=== PATIENT | female | born 1960 | race Caucasian/White ===

== ENCOUNTER 2023-01-02 14:49 | Emergency (ER) | payer OTHER, SELFPAY ==
[2023-01-02 14:53] VITALS: BP 170/64; PULSE 68; RESP 18; TEMP 36.7; O2SAT 98; BMI 29.5
--- NOTE | 2023-01-02 15:06 | XR_ITS ---
The [address] [address] Patient Name: VENANCIO BERNAL MRN: [id number] date: 1960 Sex: F Assigned Patient Location: ER Current Patient Location: ER Accession/Order Number: [id number] Exam Date: 01/02/2023 15:57 Report Date: 01/02/2023 16:18 At the request of: PAVEL ANDRADE Procedure: XR toe LT min 2V EXAM: XR toe LT min 2V HISTORY: First digit pain COMPARISON: None. TECHNIQUE: 3 views FINDINGS: IMPRESSION: Soft tissue irregularity of the dorsal aspect of the first digit. First and second digit soft tissue edema. No visualized fracture, dislocation, subluxation, osseous lesion or discrete periosteal reaction on this study. Atherosclerosis of the vascular structures. Electronically authenticated by: ARTURO TREJO Date: 01/02/2023 16:18
--- NOTE | 2023-01-02 15:12 | ED_ITS ---
Documented by User: VERÓNICA Lara 01/02/23 17:30 HPI - General Adult General Chief complaint: Extremity Problem, Nontraumatic Stated complaint: LOWER EXTREMITY PAIN LEFT FOOT Time Seen by Provider: 01/02/23 15:01 Source: patient Mode of arrival: walk-in History of Present Illness HPI narrative: patient is a 62-year-old female who presents to the emergency department at the recommendation of her PCP for redness and swelling to the left great toe. Patient states she had a toenail debridement done with local podiatry one week ago, she was placed on Keflex 500 mg twice a day for one week and has now fi nished this antibiotic. She continues to have redness and swelling to the area although she states when she had her procedure done, the toe was much more swollen and red. She has had minimal purulent drainage from the area of the toenail. No fevers or vomiting. Related Data Home Medications Medication Instructions Recorded Confirmed atorvastatin 20 mg tablet 20 mg PO .qhs 01/02/23 01/02/23 clopidogrel 75 mg tablet 75 mg PO QDAY 01/02/23 01/02/23 dulaglutide 0.75 mg/0.5 mL 0.75 mg subcut QWEEK 01/02/23 01/02/23 subcutaneous pen injector (Trulicity) furosemide 40 mg tablet 40 mg PO Q12H 01/02/23 01/02/23 glipizide 10 mg tablet 10 mg PO BID 01/02/23 01/02/23 lisinopril 30 mg tablet 30 mg PO DAILY 01/02/23 01/02/23 metformin 500 mg tablet,extended 1,000 mg PO BID 01/02/23 01/02/23 release 24 hr metoprolol tartrate 100 mg tablet 100 mg PO Q12H 01/02/23 01/02/23 Previous Rx's Medication Instructions Recorded amoxicillin 875 mg-potassium 1 tab PO Q12H #20 tabs 01/02/23 clavulanate 125 mg tablet mupirocin 2 % topical ointment 1 applic topical BID #15 grams 01/02/23 ondansetron 4 mg disintegrating 4 mg PO Q6H PRN nausea and 01/02/23 tablet vomiting #12 tabs sulfamethoxazole 800 1 tab PO BID 10 days #20 tabs 01/02/23 mg-trimethoprim 160 mg tablet (Bactrim DS) Allergies Allergy/AdvReac Type Severity Reaction Status Date / Time No Known Drug Allergies Allergy Verified 01/02/23 14:53 Review of Systems ROS Constitutional Denies: fever or chills Cardiovascular Denies: chest pain Respiratory Denies: shortness of breath Gastrointestinal Denies: nausea or vomiting Musculoskeletal Denies: back pain Integumentary/Breast Reports: redness, skin pain, skin tenderness and skin swelling; Denies: rash Neurological Denies: headache Hematologic/Lymphatic Reports: easy bruising and easy bleeding PFSH PFSH Social History Smoking status: Current every day smoker Exam Narrative Exam Narrative: Gen.: Awake, alert, in no distress Head: Normocephalic, atraumatic ENT: Moist mucous membranes Respiratory: No respiratory distress Extremities: left great toe with circumferential erythema and mild edema compared to the right side. Great toenail is partially debrided with purulence noted at the nailbed. No active drainage, no evidence of necrosis. No red streaking to the proximal foot or ankle. Psych: Normal mood and affect Neuro: No focal neuro deficit Skin: Warm, dry Constitutional Vital Signs, click to edit/add: Last Vital Signs Temp 98.0 F 01/02/23 14:53 Pulse 68 01/02/23 14:53 Resp 18 01/02/23 14:53 BP 170/64 H 01/02/23 14:53 Pulse Ox 98 01/02/23 14:53 O2 Del Method Room Air 01/02/23 14:53 Course Vital Signs Vital signs: Vital Signs Temperature 98.0 F 01/02/23 14:53 Pulse Rate 68 01/02/23 14:53 Respiratory Rate 18 01/02/23 14:53 Blood Pressure 170/64 H 01/02/23 14:53 Pulse Oximetry 98 01/02/23 14:53 Oxygen Delivery Method Room Air 01/02/23 14:53 Temperature 98.0 F 01/02/23 14:53 Pulse Rate 68 01/02/23 14:53 Respiratory Rate 18 01/02/23 14:53 Blood Pressure 170/64 H 01/02/23 14:53 Pulse Oximetry 98 01/02/23 14:53 Oxygen Delivery Method Room Air 01/02/23 14:53 Medical Decision Making MDM Narrative Medical decision making narrative: x-rays of the toe with soft tissue deformity but no evidence of osteomyelitis on x-rays. Lab studies with normal white blood cell count and lactic acid, elevated CRP and sedimentation rate. Patient was treated with IV Zosyn and vancomycin. Discussed admission with the patient, she prefers outpatient management and based on her labs and workup, this is appropriate. She'll be started on Augmentin, Bactrim and Bactroban ointment. Follow-up with PCP and podiatry. Return to the Emergency Room if symptoms change or worsen. Medical Records Medical records reviewed: Yes I reviewed the patient's medical records Lab Data Lab results reviewed: Yes I reviewed the patient's lab results Labs: Lab Results 01/02/23 01/02/23 Range/Units 15:20 15:45 WBC 11.0 (4.0-11.0) 10^3/uL RBC 4.88 (4.20-5.40) 10^6/uL Hgb 12.5 (12.0-16.0) g/dL Hct 39.3 (36.0-48.0) % MCV 80.5 L (81.0-99.0) fL MCH 25.6 L (26.7-34.0) pg MCHC 31.8 (29.9-35.2) g/dL RDW 18.9 H (11.0-15.0) % Plt Count 345 (150-450) 10^3/uL MPV 10.0 (9.5-13.5) fL Neut % (Auto) 69.8 (43.0-75.0) % Lymph % (Auto) 20.9 (20.5-60.0) % [place] % (Auto) 6.3 (1.7-12.0) % Eos % (Auto) 1.7 (0.9-7.0) % Baso % (Auto) 0.8 (0.2-2.0) % Neut # (Auto) 7.6 H (1.4-6.5) 10^3/uL Lymph # (Auto) 2.3 (1.2-3.8) 10^3/uL [place] # (Auto) 0.7 (0.3-0.8) 10^3/uL Eos # (Auto) 0.2 (0.0-0.7) 10^3/uL Baso # (Auto) 0.1 (0.0-0.1) 10^3/uL Abs Immat Gran (auto) 0.06 H (0.00-0.03) 10^3/uL Imm/Tot Granulo (auto) 0.5 (0.0-0.5) % ESR 122 H (<=30) mm/hr VBG pH 7.375 (7.330-7.430) VBG pCO2 38.7 L (40.0-52.0) mmHg Sodium 136 (136-145) mmol/L Potassium 4.6 (3.5-5.1) mmol/L Chloride 103 (98-107) mmol/L Carbon Dioxide 22.4 (21.0-32.0) mmol/L Anion Gap 15.2 BUN 31.0 H (7.0-18.0) mg/dL Creatinine 1.11 H (0.55-1.02) mg/dL Est GFR ( Amer) 60 (>=60) Est GFR (Non-Af Amer) 49 L (>=60) BUN/Creatinine Ratio 27.9 Glucose 140 H (74-106) mg/dL Lactate 1.2 (0.4-2.0) mmol/L Calcium 9.0 (8.5-10.1) mg/dL Total Bilirubin 0.2 (0.2-1.0) mg/dL AST 12 L (15-37) U/L ALT 14 (14-59) U/L Alkaline Phosphatase 86 (46-116) U/L C-Reactive Protein 2.2 H (<=1.0) mg/dL Total Protein 8.0 (6.4-8.2) g/dL Albumin 3.1 L (3.4-5.0) g/dL Globulin 4.9 g/dL Albumin/Globulin Ratio 0.6 Imaging Data XR toe: Attestation: I have reviewed the pertinent imaging results. Radiologist's impression: Procedure: XR toe LT min 2V EXAM: XR toe LT min 2V HISTORY: First digit pain COMPARISON: None. TECHNIQUE: 3 views FINDINGS: IMPRESSION: Soft tissue irregularity of the dorsal aspect of the first digit. First and second digit soft tissue edema. No visualized fracture, dislocation, subluxation, osseous lesion or discrete periosteal reaction on this study. Atherosclerosis of the vascular structures. Electronically authenticated by: ARTURO TREJO Date: 01/02/2023 16:18 Discharge Plan Discharge Chief Complaint: Extremity Problem, Nontraumatic Clinical Impression: Cellulitis of great toe Patient Disposition: Home, Self-Care Time of Disposition Decision: 17:29 Condition: Good Prescriptions / Home Meds: New sulfamethoxazole-trimethoprim [Bactrim DS] 800-160 mg tablet 1 tab PO BID 10 Days Qty: 20 0RF mupirocin 2 % ointment 1 applic topical BID Qty: 15 0RF ondansetron 4 mg tablet,disintegrating 4 mg PO Q6H PRN (Reason: nausea and vomiting) Qty: 12 0RF amoxicillin-pot clavulanate 875-125 mg tablet 1 tab PO Q12H Qty: 20 0RF No Action atorvastatin 20 mg tablet 20 mg PO .qhs clopidogrel 75 mg tablet 75 mg PO QDAY Trulicity 0.75 mg/0.5 mL pen injector 0.75 mg SUBCUT QWEEK furosemide 40 mg tablet 40 mg PO Q12H glipizide 10 mg tablet 10 mg PO BID lisinopril 30 mg tablet 30 mg PO DAILY metformin 500 mg tablet extended release 24 hr 1,000 mg PO BID metoprolol tartrate 100 mg tablet 100 mg PO Q12H Instructions: Cellulitis (ED) Stand Alone Forms: Portal Instructions Referrals: Physician,Non-Staff, [Primary Care Provider] - 1 week Discharge Date/Time: 01/02/23 18:18 Documented by User: Luc Ramirez MD 01/02/23 20:28 HPI - General Adult General Chief complaint: Extremity Problem, Nontraumatic Stated complaint: LOWER EXTREMITY PAIN LEFT FOOT Time Seen by Provider: 01/02/23 15:01 Related Data Home Medications Medication Instructions Recorded Confirmed atorvastatin 20 mg tablet 20 mg PO .qhs 01/02/23 01/02/23 clopidogrel 75 mg tablet 75 mg PO QDAY 01/02/23 01/02/23 dulaglutide 0.75 mg/0.5 mL 0.75 mg subcut QWEEK 01/02/23 01/02/23 subcutaneous pen injector (Trulicity) furosemide 40 mg tablet 40 mg PO Q12H 01/02/23 01/02/23 glipizide 10 mg tablet 10 mg PO BID 01/02/23 01/02/23 lisinopril 30 mg tablet 30 mg PO DAILY 01/02/23 01/02/23 metformin 500 mg tablet,extended 1,000 mg PO BID 01/02/23 01/02/23 release 24 hr metoprolol tartrate 100 mg tablet 100 mg PO Q12H 01/02/23 01/02/23 Previous Rx's Medication Instructions Recorded amoxicillin 875 mg-potassium 1 tab PO Q12H #20 tabs 01/02/23 clavulanate 125 mg tablet mupirocin 2 % topical ointment 1 applic topical BID #15 grams 01/02/23 ondansetron 4 mg disintegrating 4 mg PO Q6H PRN nausea and 01/02/23 tablet vomiting #12 tabs sulfamethoxazole 800 1 tab PO BID 10 days #20 tabs 01/02/23 mg-trimethoprim 160 mg tablet (Bactrim DS) Allergies Allergy/AdvReac Type Severity Reaction Status Date / Time No Known Drug Allergies Allergy Verified 01/02/23 14:53 PFSH PFSH Social History Smoking status: Current every day smoker Exam Constitutional Vital Signs, click to edit/add: Last Vital Signs Temp 98.0 F 01/02/23 14:53 Pulse 68 01/02/23 14:53 Resp 18 01/02/23 14:53 BP 170/64 H 01/02/23 14:53 Pulse Ox 98 01/02/23 14:53 O2 Del Method Room Air 01/02/23 14:53 Course Vital Signs Vital signs: Vital Signs Temperature 98.0 F 01/02/23 14:53 Pulse Rate 68 01/02/23 14:53 Respiratory Rate 18 01/02/23 14:53 Blood Pressure 170/64 H 01/02/23 14:53 Pulse Oximetry 98 01/02/23 14:53 Oxygen Delivery Method Room Air 01/02/23 14:53 Temperature 98.0 F 01/02/23 14:53 Pulse Rate 68 01/02/23 14:53 Respiratory Rate 18 01/02/23 14:53 Blood Pressure 170/64 H 01/02/23 14:53 Pulse Oximetry 98 01/02/23 14:53 Oxygen Delivery Method Room Air 01/02/23 14:53 Medical Decision Making MDM Narrative Medical decision making narrative: x-rays of the toe with soft tissue deformity but no evidence of osteomyelitis on x-rays. Lab studies with normal white blood cell count and lactic acid, elevated CRP and sedimentation rate. Patient was treated with IV Zosyn and vancomycin. Discussed admission with the patient, she prefers outpatient management and based on her labs and workup, this is appropriate. She'll be started on Augmentin, Bactrim and Bactroban ointment. Follow-up with PCP and podiatry. Return to the Emergency Room if symptoms change or worsen. I, Dr Ramirez, have reviewed the above progress note and course of action in the ER; agree with the above. I have personally seen and evaluated this patient, gone over history and physical, and discussed disposition and treatment plan with the patient. Patient did not want to be admitted to the hospital, patient states that her toe and toenail with better than it has previously. 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 Patient is diabetic. Patient will be placed on to oral antibiotics and a topical Bactroban to help continue to treat and help prevent infection.. Signs of osteomyelitis. Patient has only been on Keflex twice a day, questionable whether patient has had adequate outpatient treatment for cellulitis, paronychia, or infected toe initially. Patient agrees with outpatient treatment and will see her Lactation Coordinator on Monday and will follow-up with PCP as needed. Lab Data Labs: Lab Results 01/02/23 01/02/23 Range/Units 15:20 15:45 WBC 11.0 (4.0-11.0) 10^3/uL RBC 4.88 (4.20-5.40) 10^6/uL Hgb 12.5 (12.0-16.0) g/dL Hct 39.3 (36.0-48.0) % MCV 80.5 L (81.0-99.0) fL MCH 25.6 L (26.7-34.0) pg MCHC 31.8 (29.9-35.2) g/dL RDW 18.9 H (11.0-15.0) % Plt Count 345 (150-450) 10^3/uL MPV 10.0 (9.5-13.5) fL Neut % (Auto) 69.8 (43.0-75.0) % Lymph % (Auto) 20.9 (20.5-60.0) % [place] % (Auto) 6.3 (1.7-12.0) % Eos % (Auto) 1.7 (0.9-7.0) % Baso % (Auto) 0.8 (0.2-2.0) % Neut # (Auto) 7.6 H (1.4-6.5) 10^3/uL Lymph # (Auto) 2.3 (1.2-3.8) 10^3/uL [place] # (Auto) 0.7 (0.3-0.8) 10^3/uL Eos # (Auto) 0.2 (0.0-0.7) 10^3/uL Baso # (Auto) 0.1 (0.0-0.1) 10^3/uL Abs Immat Gran (auto) 0.06 H (0.00-0.03) 10^3/uL Imm/Tot Granulo (auto) 0.5 (0.0-0.5) % ESR 122 H (<=30) mm/hr VBG pH 7.375 (7.330-7.430) VBG pCO2 38.7 L (40.0-52.0) mmHg Sodium 136 (136-145) mmol/L Potassium 4.6 (3.5-5.1) mmol/L Chloride 103 (98-107) mmol/L Carbon Dioxide 22.4 (21.0-32.0) mmol/L Anion Gap 15.2 BUN 31.0 H (7.0-18.0) mg/dL Creatinine 1.11 H (0.55-1.02) mg/dL Est GFR ( Amer) 60 (>=60) Est GFR (Non-Af Amer) 49 L (>=60) BUN/Creatinine Ratio 27.9 Glucose 140 H (74-106) mg/dL Lactate 1.2 (0.4-2.0) mmol/L Calcium 9.0 (8.5-10.1) mg/dL Total Bilirubin 0.2 (0.2-1.0) mg/dL AST 12 L (15-37) U/L ALT 14 (14-59) U/L Alkaline Phosphatase 86 (46-116) U/L C-Reactive Protein 2.2 H (<=1.0) mg/dL Total Protein 8.0 (6.4-8.2) g/dL Albumin 3.1 L (3.4-5.0) g/dL Globulin 4.9 g/dL Albumin/Globulin Ratio 0.6 Discharge Plan Discharge Chief Complaint: Extremity Problem, Nontraumatic Clinical Impression: Cellulitis of great toe Patient Disposition: Home, Self-Care Time of Disposition Decision: 17:29 Condition: Good Prescriptions / Home Meds: New sulfamethoxazole-trimethoprim [Bactrim DS] 800-160 mg tablet 1 tab PO BID 10 Days Qty: 20 0RF mupirocin 2 % ointment 1 applic topical BID Qty: 15 0RF ondansetron 4 mg tablet,disintegrating 4 mg PO Q6H PRN (Reason: nausea and vomiting) Qty: 12 0RF amoxicillin-pot clavulanate 875-125 mg tablet 1 tab PO Q12H Qty: 20 0RF No Action atorvastatin 20 mg tablet 20 mg PO .qhs clopidogrel 75 mg tablet 75 mg PO QDAY Trulicity 0.75 mg/0.5 mL pen injector 0.75 mg SUBCUT QWEEK furosemide 40 mg tablet 40 mg PO Q12H glipizide 10 mg tablet 10 mg PO BID lisinopril 30 mg tablet 30 mg PO DAILY metformin 500 mg tablet extended release 24 hr 1,000 mg PO BID metoprolol tartrate 100 mg tablet 100 mg PO Q12H Instructions: Cellulitis (ED) Stand Alone Forms: Portal Instructions Referrals: Physician,Non-Staff, MD [Primary Care Provider] - 1 week Discharge Date/Time: 01/02/23 18:18
[2023-01-02] MEDS: PIPERACILLIN SODIUM/TAZOBACTAM 4.5 GM in 0.9 % SODIUM CHLORIDE 50 ML IV (15:41)
[2023-01-02 15:49] LABS: Basophils Absolute Auto 0.1 10^3/uL (0.0-0.1); Basophils Percent Auto 0.8 % (0.2-2.0); Eosinophils Absolute Auto 0.2 10^3/uL (0.0-0.7); Eosinophils Percent Auto 1.7 % (0.9-7.0); Hematocrit 39.3 % (36.0-48.0); Hemoglobin 12.5 g/dL (12.0-16.0); Immature Granulocytes Abs Auto 0.06 10^3/uL (0.00-0.03); Immature Granulocytes Pct Auto 0.5 % (0.0-0.5); Lymphocytes Absolute Auto 2.3 10^3/uL (1.2-3.8); Lymphocytes Percent Auto 20.9 % (20.5-60.0); Mean Corpuscular HGB Conc 31.8 g/dL (29.9-35.2); Mean Corpuscular Hemoglobin 25.6 pg (26.7-34.0); Mean Corpuscular Volume 80.5 fL (81.0-99.0); Monocytes Absolute Auto 0.7 10^3/uL (0.3-0.8); Monocytes Percent Auto 6.3 % (1.7-12.0); Neutrophils Absolute Auto 7.6 10^3/uL (1.4-6.5); Neutrophils Percent Auto 69.8 % (43.0-75.0); Platelet Count 345 10^3/uL (150-450); Red Blood Count 4.88 10^6/uL (4.20-5.40); Red Cell Distribution Width 18.9 % (11.0-15.0)
[2023-01-02 15:55] LABS: C Reactive Protein 2.2 mg/dL (<=1.0)
[2023-01-02 16:01] LABS: Erythrocyte Sedimentation Rate 122 mm/hr (<=30)
[2023-01-02 16:03] LABS: Alanine Aminotransferase 14 U/L (14-59); Albumin Globulin Ratio 0.6; Albumin Level 3.1 g/dL (3.4-5.0); Alkaline Phosphatase 86 U/L (46-116); Anion Gap 15.2; Aspartate Amino Transferase 12 U/L (15-37); BUN Creatinine Ratio 27.9; Bilirubin Total 0.2 mg/dL (0.2-1.0); Carbon Dioxide 22.4 mmol/L (21.0-32.0); Chloride 103 mmol/L (98-107); Estimated GFR (African America 60 (>=60); Estimated GFR (Non-African Ame 49 (>=60); Globulin 4.9 g/dL; Glucose 140 mg/dL (74-106); Potassium 4.6 mmol/L (3.5-5.1); Sodium 136 mmol/L (136-145)
[2023-01-02 16:04] LABS: PCO2 VBG 38.7 mmHg (40.0-52.0); pH VBG 7.375 (7.330-7.430)
[2023-01-02 16:09] LABS: Lactate/Lactic Acid 1.2 mmol/L (0.4-2.0)
[2023-01-02] MEDS: VANCOMYCIN HCL 1,000 MG in 0.9 % SODIUM CHLORIDE 500 ML 250 MG IV (16:41)
== END 2023-01-02 18:18 | disposition home or self-care (01) ==
PROVIDERS: Physician Assistant; Emergency Provider Emergency Medicine
DX: L03.032 Cellulitis of left toe (principal); Z79.899 Other long term (current) drug therapy; Z79.84 Long term (current) use of oral hypoglycemic drugs; F17.210 Nicotine dependence, cigarettes, uncomplicated
CPT/HCPCS: 36415; 73660; 80053; 82800; 83605; 85025; 85652; 86140; 87040; 96365; 96375; 99285; J3370

== ENCOUNTER 2023-01-10 07:10 | Emergency (ER) | payer OTHER, SELFPAY ==
[2023-01-10 07:14] VITALS: BP 157/37; PULSE 65; RESP 20; TEMP 36.6; O2SAT 98; BMI 38.8
--- NOTE | 2023-01-10 07:39 | ED_ITS ---
HPI - Allergic Reaction General Chief complaint: Allergic Reaction Stated complaint: allergic reaction Time Seen by Provider: 01/10/23 07:26 Source: patient Mode of arrival: walk-in History of Present Illness HPI narrative: this patient's here complaining of a pruritic generalized rash throughout her trunk torso or extremities. It also involves her mouth lips and tongue. It started several days ago. She believes it may be related to using a new soap detergent on her clothing. Call upon further review she was seen here recently and started on two antibiotics for a cellulitis of her left great toe. She didn't fact follow-up with the hydrogen plant operations manager yesterday and they were satisfied with the progress of her infection and she scheduled to have surgery in the near future. Sure antibiotics included Augmentin and passes trace and and Bactrim. She is not having any change in her voice. She does not have nausea or vomiting. No wheezing or shortness of breath. Just has generalized itching and a pruritic rash throughout her extremities. Related Data Home Medications Medication Instructions Recorded Confirmed atorvastatin 20 mg tablet 20 mg PO .qhs 01/02/23 01/02/23 clopidogrel 75 mg tablet 75 mg PO QDAY 01/02/23 01/02/23 dulaglutide 0.75 mg/0.5 mL 0.75 mg subcut QWEEK 01/02/23 01/02/23 subcutaneous pen injector (Trulicity) furosemide 40 mg tablet 40 mg PO Q12H 01/02/23 01/02/23 glipizide 10 mg tablet 10 mg PO BID 01/02/23 01/02/23 lisinopril 30 mg tablet 30 mg PO DAILY 01/02/23 01/02/23 metformin 500 mg tablet,extended 1,000 mg PO BID 01/02/23 01/02/23 release 24 hr metoprolol tartrate 100 mg tablet 100 mg PO Q12H 01/02/23 01/02/23 Previous Rx's Medication Instructions Recorded amoxicillin 875 mg-potassium 1 tab PO Q12H #20 tabs 01/02/23 clavulanate 125 mg tablet mupirocin 2 % topical ointment 1 applic topical BID #15 grams 01/02/23 ondansetron 4 mg disintegrating 4 mg PO Q6H PRN nausea and 01/02/23 tablet vomiting #12 tabs sulfamethoxazole 800 1 tab PO BID 10 days #20 tabs 01/02/23 mg-trimethoprim 160 mg tablet (Bactrim DS) Allergies Allergy/AdvReac Type Severity Reaction Status Date / Time No Known Drug Allergies Allergy Verified 01/02/23 14:53 PFSH PFSH Social History Smoking status: Current every day smoker Exam Narrative Exam Narrative: awake alert good historian. Has a generalized rash throughout the extremities. HEENT shows mild swelling of the upper and lower lip. There is no enanthems or vesicles in the oral cavity. Uvula has 1+ edema. Otherwise the floor the mouth and the orals mucosal surfaces are normal. Eyes have no conjunctivitis or scleral edema. Chest shows no wheezes rales or rhonchi. Heart sounds are normal with no rub or murmur. Skin integument show a generalized urticarial pruritic erythematous rash throughout the trunk torso or extremities. Her left great toe shows what appears to be improving cellulitis based on demarcation done by the previous Emergency Room physician. There is no evidence of subcutaneous emphysema or worsening infection. Constitutional Vital Signs, click to edit/add: Last Vital Signs Temp 98 F 01/10/23 07:14 Pulse 65 01/10/23 07:14 Resp 20 01/10/23 07:14 BP 157/37 H 01/10/23 07:14 Pulse Ox 98 01/10/23 07:14 Course Vital Signs Vital signs: Vital Signs Temperature 98 F 01/10/23 07:14 Pulse Rate 65 01/10/23 07:14 Respiratory Rate 20 01/10/23 07:14 Blood Pressure 157/37 H 01/10/23 07:14 Pulse Oximetry 98 01/10/23 07:14 Temperature 98 F 01/10/23 07:14 Pulse Rate 65 01/10/23 07:14 Respiratory Rate 20 01/10/23 07:14 Blood Pressure 157/37 H 01/10/23 07:14 Pulse Oximetry 98 01/10/23 07:14 MDM - Allergic Reaction MDM Narrative Medical decision making narrative: patient remained stable while in the Emergency Room. I think it's most likely that she has ALLERGIC reaction to either the Bactrim or the Augmentin. She is on day nine and her toes looking much better. She scheduled follow-up with a hydrogen plant operations manager in another two weeks to consider removal of her nail. I will place her on doxycycline. She is to continue take prednisone, cool showers, Benadryl for the next several days. I also want her to see her primary care doctor before the weekend. Discharge Plan Discharge Chief Complaint: Allergic Reaction Clinical Impression: Allergic reaction Patient Disposition: Home, Self-Care Time of Disposition Decision: 08:30 Prescriptions / Home Meds: No Action atorvastatin 20 mg tablet 20 mg PO .qhs clopidogrel 75 mg tablet 75 mg PO QDAY Trulicity 0.75 mg/0.5 mL pen injector 0.75 mg SUBCUT QWEEK furosemide 40 mg tablet 40 mg PO Q12H glipizide 10 mg tablet 10 mg PO BID lisinopril 30 mg tablet 30 mg PO DAILY metformin 500 mg tablet extended release 24 hr 1,000 mg PO BID metoprolol tartrate 100 mg tablet 100 mg PO Q12H sulfamethoxazole-trimethoprim [Bactrim DS] 800-160 mg tablet 1 tab PO BID 10 Days Qty: 20 0RF mupirocin 2 % ointment 1 applic topical BID Qty: 15 0RF ondansetron 4 mg tablet,disintegrating 4 mg PO Q6H PRN (Reason: nausea and vomiting) Qty: 12 0RF amoxicillin-pot clavulanate 875-125 mg tablet 1 tab PO Q12H Qty: 20 0RF Additional Instructions: stop Augmentin and Bactrim. Start doxycycline. See primary care doctor before weekend. Prednisone, cool showers Stand Alone Forms: Portal Instructions Referrals: Physician,Non-Staff, MD [Primary Care Provider] - 1 week
[2023-01-10] MEDS: METHYLPREDNISOLONE SOD SUCC PF 125 MG/2 ML VIAL IVP (07:44)
[2023-01-10] MEDS: DIPHENHYDRAMINE HCL 50 MG/ML (1ML) VIAL 25 MG IV (07:44)
[2023-01-10] MEDS: FAMOTIDINE/PF 20 MG/2 ML VIAL IV (07:44)
[2023-01-10 08:53] VITALS: BP 144/55; PULSE 63; RESP 20; O2SAT 95
== END 2023-01-10 08:57 | disposition home or self-care (01) ==
PROVIDERS: Emergency Provider Emergency Medicine Emergency Medical Services
DX: R21 Rash and other nonspecific skin eruption (principal); Z79.899 Other long term (current) drug therapy; Z79.84 Long term (current) use of oral hypoglycemic drugs; F17.210 Nicotine dependence, cigarettes, uncomplicated
CPT/HCPCS: 96374; 96375; 99284; J2930

== ENCOUNTER 2023-04-22 18:54 | Emergency (ER) | payer OTHER, SELFPAY ==
[2023-04-22 19:02] VITALS: BP 152/65; PULSE 64; RESP 15; TEMP 36.4; O2SAT 100; BMI 38.0
--- NOTE | 2023-04-22 19:24 | ED.GENADUL1 ---
HPI - General Adult General Chief complaint: Fall Stated complaint: syncope Time Seen by Provider: 04/22/23 19:16 Source: patient and family Mode of arrival: Wheelchair Limitations: physical limitation History of Present Illness HPI narrative: past history of vascular insufficiency LLE s/p vascular procedure at [facility]. she was then seen at [facility] for amputation left great toe. States no longer has pain left foot since vascular repair. Family member noticed she was yellow 04/20/23. Tonight she fell striking her head on a glass table and broke the table. She was alone but is pretty sure she did loose consciousness. Denies headache or neck pain. Denies extremity weakness. No chest pain or nausea. Does have abdominal pain. She takes plavix Related Data Home Medications Medication Instructions Recorded Confirmed atorvastatin 20 mg tablet 20 mg PO .qhs 01/02/23 04/22/23 clopidogrel 75 mg tablet 75 mg PO QDAY 01/02/23 04/22/23 dulaglutide 0.75 mg/0.5 mL 0.75 mg subcut QWEEK 01/02/23 04/22/23 subcutaneous pen injector (Trulicity) furosemide 40 mg tablet 40 mg PO Q12H 01/02/23 04/22/23 glipizide 10 mg tablet 10 mg PO BID 01/02/23 04/22/23 lisinopril 30 mg tablet 30 mg PO DAILY 01/02/23 01/02/23 metformin 500 mg tablet,extended 1,000 mg PO BID 01/02/23 04/22/23 release 24 hr metoprolol tartrate 100 mg tablet 100 mg PO Q12H 01/02/23 04/22/23 doxycycline hyclate 100 mg tablet 100 mg PO BID 01/10/23 01/10/23 prednisone 20 mg tablet 20 mg PO TID 01/10/23 01/10/23 spironolactone 50 mg tablet mg 04/22/23 Previous Rx's Medication Instructions Recorded amoxicillin 875 mg-potassium 1 tab PO Q12H #20 tabs 01/02/23 clavulanate 125 mg tablet mupirocin 2 % topical ointment 1 applic topical BID #15 grams 01/02/23 ondansetron 4 mg disintegrating 4 mg PO Q6H PRN nausea and 01/02/23 tablet vomiting #12 tabs sulfamethoxazole 800 1 tab PO BID 10 days #20 tabs 10/02/23 mg-trimethoprim 160 mg tablet (Bactrim DS) Allergies Allergy/AdvReac Type Severity Reaction Status Date / Time amoxicillin [From Augmentin] Allergy Intermediate Rash Verified 04/22/23 19:06 clavulanic acid Allergy Intermediate Rash Verified 04/22/23 19:06 [From Augmentin] sulfamethoxazole Allergy Intermediate Verified 04/22/23 19:06 [From Bactrim] trimethoprim [From Bactrim] Allergy Intermediate Verified 04/22/23 19:06 Review of Systems ROS Status of ROS 10 or more systems reviewed and unremarkable except as noted in history and below [facility] Social History Smoking status: Current every day smoker Exam Constitutional Vital Signs, click to edit/add: Last Vital Signs Temp 97.9 F 04/22/23 22:01 Pulse 76 04/23/23 06:00 Resp 18 04/23/23 00:10 BP 115/46 L 04/23/23 06:00 Pulse Ox 95 04/23/23 06:00 O2 Del Method Room Air 04/23/23 06:00 Common normals: no apparent distress, oriented x3, alert and well nourished General appearance: cooperative, comfortable and well kempt [facility] Common normals: normocephalic and head/scalp atraumatic Eye Common normals: PERRL and EOMs intact bilaterally Sclera: sclera abnormal Other: patient is jaundiced and sclera icteric Respiratory Common normals: normal respiratory effort, no retractions, no use of accessory muscles and clear to auscultation bilaterally GI Common normals: Normal to inspection, nondistended, normoactive bowel sounds present, soft to palpation and non-tender Extremity Common normals: normal to inspection (left great toe amputee. Stitches in place and site is clean. ) and full ROM Neuro Common normals: oriented x3, CN's II-XII intact bilaterally, moves all extremities, no focal motor deficits and no sensory deficits noted Psych Appearance: grossly normal Course Vital Signs Vital signs: Vital Signs Temperature 97.5 F L 04/22/23 19:02 Pulse Rate 64 04/22/23 19:02 Respiratory Rate 15 04/22/23 19:02 Blood Pressure 152/65 H 04/22/23 19:02 Pulse Oximetry 100 04/22/23 19:02 Oxygen Delivery Method Room Air 04/22/23 19:02 Temperature 97.9 F 04/22/23 22:01 Pulse Rate 76 04/23/23 06:00 Respiratory Rate 18 04/23/23 00:10 Blood Pressure 115/46 L 04/23/23 06:00 Pulse Oximetry 95 04/23/23 06:00 Oxygen Delivery Method Room Air 04/23/23 06:00 Medical Decision Making MDM Narrative Medical decision making narrative: patient presents jaundiced. labs with elevated LFTs and CT with CBD dilatation of 12mm. Patient in need of MRCP. discussed with hospitalist and GI at [facility] and patient accepted for transfer. Lab Data Labs: Lab Results 04/22/23 Range/Units 19:15 WBC 12.5 H (4.0-11.0) 10^3/uL RBC 4.02 L (4.20-5.40) 10^6/uL Hgb 10.9 L (12.0-16.0) g/dL Hct 34.4 L (36.0-48.0) % MCV 85.6 (81.0-99.0) fL MCH 27.1 (26.7-34.0) pg MCHC 31.7 (29.9-35.2) g/dL RDW 19.2 H (11.0-15.0) % Plt Count 386 (150-450) 10^3/uL MPV 11.4 (9.5-13.5) fL Neut % (Auto) 73.7 (43.0-75.0) % Lymph % (Auto) 14.4 L (20.5-60.0) % Wilcox % (Auto) 5.7 (1.7-12.0) % Eos % (Auto) 4.4 (0.9-7.0) % Baso % (Auto) 1.0 (0.2-2.0) % Neut # (Auto) 9.2 H (1.4-6.5) 10^3/uL Lymph # (Auto) 1.8 (1.2-3.8) 10^3/uL Wilcox # (Auto) 0.7 (0.3-0.8) 10^3/uL Eos # (Auto) 0.6 (0.0-0.7) 10^3/uL Baso # (Auto) 0.1 (0.0-0.1) 10^3/uL Abs Immat Gran (auto) 0.10 H (0.00-0.03) 10^3/uL Imm/Tot Granulo (auto) 0.8 H (0.0-0.5) % Sodium 130 L (136-145) mmol/L Potassium 4.5 (3.5-5.1) mmol/L Chloride 99 (98-107) mmol/L Carbon Dioxide 17.1 L (21.0-32.0) mmol/L Anion Gap 18.4 BUN 51.0 H (7.0-18.0) mg/dL Creatinine 1.52 H (0.55-1.02) mg/dL Est GFR ( Amer) 42 L (>=60) Est GFR (Non-Af Amer) 34 L (>=60) BUN/Creatinine Ratio 33.6 Glucose 135 H (74-106) mg/dL Calcium 9.5 (8.5-10.1) mg/dL Total Bilirubin 7.5 H (0.2-1.0) mg/dL AST 152 H (15-37) U/L ALT 180 H (14-59) U/L Alkaline Phosphatase 1082 H (46-116) U/L Troponin I High Sens 24.2 (4.0-51.3) pg/mL Total Protein 7.8 (6.4-8.2) g/dL Albumin 2.5 L (3.4-5.0) g/dL Globulin 5.3 g/dL Albumin/Globulin Ratio 0.5 Lipase 273.0 H (16.0-77.0) U/L Imaging Data CT scan - abdomen: Radiologist's impression: ITS Impressions Cervical Spine CT 04/22/23 19:30 IMPRESSION: No acute findings. Electronically authenticated by: HOOD STARKS Date: 04/22/2023 21:24 Chest X-Ray 04/22/23 19:30 IMPRESSION: No acute cardiopulmonary process. Electronically authenticated by: ULX KHAN Date: 04/22/2023 21:[address] 04/22/23 19:30 IMPRESSION: No acute intracranial abnormality. Electronically authenticated by: BERNABE VALENZUELA Date: 04/22/2023 21:15 Abdomen/Pelvis CT 04/22/23 19:31 IMPRESSION: Distended gallbladder with likely gallbladder wall thickening. No calcified gallstone is seen. Intrahepatic and extrahepatic biliary dilatation is seen. These findings can be further evaluated with MRCP. Very mild focal mesenteric fat stranding seen about the uncinate process of the pancreas, which may represent mild acute pancreatitis involving the uncinate process of the pancreas. This finding can also be better evaluated with MRCP. Mild wall thickening of the colon is seen, suggestive of mild colitis. Electronically authenticated by: LUX KHAN Date: 04/22/2023 21:27 Discharge Plan Discharge Chief Complaint: Fall Clinical Impression: Jaundice, Abdominal pain Patient Disposition: [facility] Discharge Location: [facility] [address]
--- NOTE | 2023-04-22 19:30 | XR_ITS ---
The [place] [id number] Patient Name: VENANCIO BERNAL MRN: [id number] date: 1960 Sex: F Assigned Patient Location: ER Current Patient Location: ER Accession/Order Number: [id number] Exam Date: 04/22/2023 20:24 Report Date: 04/22/2023 21:15 At the request of: TY LEDESMA Procedure: XR chest 1V EXAMINATION: XR chest 1V, , 04/22/2023 8:24 PM EST INDICATION: syncope HISTORY: Ordering Provider Reason for Exam: syncope Technologist Note: Additional: COMPARISON: Chest x-ray dated 11/17/2021. TECHNIQUE: Chest x-ray: One view. FINDINGS: No pneumothorax, pleural effusion or focal airspace consolidation. Heart is normal in size. Bony thorax is unremarkable. XR/XR chest 1V IMPRESSION: No acute cardiopulmonary process. Electronically authenticated by: LUX KHAN Date: 04/22/2023 21:15
--- NOTE | 2023-04-22 19:30 | CT_ITS ---
[address] [address] Patient Name: VENANCIO BERNAL MRN: [id number] date: 1960 Sex: F Assigned Patient Location: ER Current Patient Location: ER Accession/Order Number: [id number] Exam Date: 04/22/2023 20:24 Report Date: 04/22/2023 21:15 At the request of: TY LEDESMA Procedure: CT head/brain wo con EXAM: CT head/brain wo con REASON FOR EXAM: Female, 62 years, head injury. TECHNIQUE: Computed tomography of the head is performed in the axial projection from the base of the skull to the vertex. Sagittal and coronal reconstructed images are performed. Dose reduction techniques were achieved by using automated exposure control and/or adjustment of mA and/or KVP according to patient size and/or use of iterative reconstruction technique. COMPARISON: None. FINDINGS: Atherosclerotic vascular calcifications are seen. Normal calvarium. The ventricles have normal size and configuration for patient's age. Normal brain parenchyma. Normal basal ganglia. Normal brainstem. The cerebellum is normal. There is no evidence for acute ischemia. There is no evidence for acute hemorrhage. The visualized paranasal sinuses are clear. CT/CT head/brain wo con IMPRESSION: No acute intracranial abnormality. Electronically authenticated by: BERNABE VALENZUELA Date: 04/22/2023 21:15
--- NOTE | 2023-04-22 19:30 | CT_ITS ---
The [address] [address] Patient Name: VENANCIO BERNAL MRN: [id number] date: 1960 Sex: F Assigned Patient Location: ER Current Patient Location: ER Accession/Order Number: [id number] Exam Date: 04/22/2023 20:24 Report Date: 04/22/2023 21:24 At the request of: TY LEDESMA Procedure: CT cervical spine wo con EXAM: CT cervical spine wo con HISTORY: head injury COMPARISON: None. TECHNIQUE: CT cervical spine without contrast. Multiplanar reformats obtained. The current study utilizes one or more of the following dose-reduction techniques: automated exposure control, iterative reconstruction, and/or manual adjustment of tube current and voltage for size. 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 No evidence of acute fracture or traumatic malalignment. Spinal canal is grossly patent. No prevertebral edema. Grossly patent neural foramen. CT/CT cervical spine wo con IMPRESSION: No acute findings. Electronically authenticated by: HOOD STARKS Date: 04/22/2023 21:24
--- NOTE | 2023-04-22 19:31 | CT_ITS ---
The [address] [address] Patient Name: VENANCIO BERNAL MRN: [id number] date: 1960 Sex: F Assigned Patient Location: ER Current Patient Location: ER Accession/Order Number: [id number] Exam Date: 04/22/2023 20:24 Report Date: 04/22/2023 21:27 At the request of: TY LEDESMA Procedure: CT abdomen pelvis w con EXAM: CT abdomen pelvis w con HISTORY: jaundiced COMPARISON: None. TECHNIQUE: Multiple axial images of the abdomen and pelvis were obtained following the administration of IV contrast. Coronal and sagittal reformatted sequences were submitted for review. FINDINGS: The lung bases appear clear. The heart size is normal. Distended gallbladder is seen with likely mild gallbladder wall thickening. No calcified gallstone is seen. Intrahepatic biliary dilatation is seen. Dilated common bile duct is also seen. The proximal common bile duct measures up to 12 mm in diameter. Very mild focal mesenteric fat stranding seen about the uncinate process of the pancreas (best seen on image 26 of coronal series 6, and image 51 AXIAL series 4), which may represent mild acute pancreatitis involving the uncinate process of the pancreas. The liver, spleen, and the right adrenal gland appear unremarkable. 2 cm left adrenal nodule versus prominent left adrenal gland is seen. Bilateral kidneys demonstrates normal size, morphology and contrast enhancement. No evidence for hydronephrosis bilaterally. The urinary bladder appears unremarkable. Nonobstructive bowel pattern is seen. Normal-appearing appendix is visualized. Mild wall thickening of the colon is seen, suggestive of mild colitis. No significant free fluid or abnormal fluid collections in the abdomen and pelvis. Aortic and iliac arterial calcification is seen without aneurysmal dilatation. The abdominal wall and the visualized soft tissues appear unremarkable. No acute or destructive osseous lesion is seen. CT/CT abdomen pelvis w con IMPRESSION: Distended gallbladder with likely gallbladder wall thickening. No calcified gallstone is seen. Intrahepatic and extrahepatic biliary dilatation is seen. These findings can be further evaluated with MRCP. Very mild focal mesenteric fat stranding seen about the uncinate process of the pancreas, which may represent mild acute pancreatitis involving the uncinate process of the pancreas. This finding can also be better evaluated with MRCP. Mild wall thickening of the colon is seen, suggestive of mild colitis. Electronically authenticated by: LUX KHAN Date: 04/22/2023 21:27
[2023-04-22 19:36] LABS: Basophils Absolute Auto 0.1 10^3/uL (0.0-0.1); Eosinophils Absolute Auto 0.6 10^3/uL (0.0-0.7); Eosinophils Percent Auto 4.4 % (0.9-7.0); Hematocrit 34.4 % (36.0-48.0); Hemoglobin 10.9 g/dL (12.0-16.0); Immature Granulocytes Pct Auto 0.8 % (0.0-0.5); Lymphocytes Absolute Auto 1.8 10^3/uL (1.2-3.8); Lymphocytes Percent Auto 14.4 % (20.5-60.0); Mean Corpuscular HGB Conc 31.7 g/dL (29.9-35.2); Mean Corpuscular Hemoglobin 27.1 pg (26.7-34.0); Mean Corpuscular Volume 85.6 fL (81.0-99.0); Mean Platelet Volume 11.4 fL (9.5-13.5); Monocytes Absolute Auto 0.7 10^3/uL (0.3-0.8); Monocytes Percent Auto 5.7 % (1.7-12.0); Neutrophils Absolute Auto 9.2 10^3/uL (1.4-6.5); Neutrophils Percent Auto 73.7 % (43.0-75.0); Platelet Count 386 10^3/uL (150-450); Red Blood Count 4.02 10^6/uL (4.20-5.40); Red Cell Distribution Width 19.2 % (11.0-15.0); White Blood Count 12.5 10^3/uL (4.0-11.0)
[2023-04-22 19:54] LABS: Alanine Aminotransferase 180 U/L (14-59); Albumin Globulin Ratio 0.5; Albumin Level 2.5 g/dL (3.4-5.0); Alkaline Phosphatase 1082 U/L (46-116); Anion Gap 18.4; Aspartate Amino Transferase 152 U/L (15-37); BUN Creatinine Ratio 33.6; Bilirubin Total 7.5 mg/dL (0.2-1.0); Calcium 9.5 mg/dL (8.5-10.1); Carbon Dioxide 17.1 mmol/L (21.0-32.0); Chloride 99 mmol/L (98-107); Estimated GFR (African America 42 (>=60); Estimated GFR (Non-African Ame 34 (>=60); Globulin 5.3 g/dL; Glucose 135 mg/dL (74-106); Potassium 4.5 mmol/L (3.5-5.1); Sodium 130 mmol/L (136-145); Total Protein 7.8 g/dL (6.4-8.2); Troponin I High Sensitivity 24.2 pg/mL (4.0-51.3)
[2023-04-22 20:12] VITALS: BP 148/65; PULSE 63; RESP 16; O2SAT 98
[2023-04-22] MEDS: 0.9 % SODIUM CHLORIDE 1,000 ML 100 ML IV (21:04)
[2023-04-22 21:05] VITALS: BP 152/74; PULSE 65; RESP 18; O2SAT 100
[2023-04-22 21:43] VITALS: BP 99/43; PULSE 64; RESP 18; O2SAT 99
[2023-04-22 22:01] VITALS: BP 118/43; PULSE 65; RESP 16; TEMP 36.6; O2SAT 98
[2023-04-22] MEDS: FENTANYL CITRATE/PF 100 MCG/2 ML VIAL 50 MCG IV (22:22)
[2023-04-23] VITALS (45 sets, daily range): BP systolic 111–149; BP diastolic 46–91; PULSE 66–76; RESP 18; O2SAT 93–100
[2023-04-23] MEDS: 0.9 % SODIUM CHLORIDE 1,000 ML 100 ML IV (07:01)
--- NOTE | 2023-04-23 09:13 | PC.NURSE ---
CALLED [facility] FOR UPDATE -- NO BEDS AVAILABLE AT THIS TIME. MAISHA STANLEY TRYING TO GET [facility] ACCEPTANCE, AWAITING HOSPITALIST TO CALL BACK AT THIS TIME.
[2023-04-23] MEDS: METRONIDAZOLE/SODIUM CHLORIDE 500 MG/100 ML PREMIX 100 MG IV (09:53)
--- NOTE | 2023-04-23 10:04 | PC.NURSE ---
Informed pt of acceptance from [facility]. ATB given at this time. Pt given soapy wash cloths, lotion, brush, toothbrush/toothpaste to clean up with.
[2023-04-23] MEDS: CIPROFLOXACIN IN 5 % DEXTROSE 400 MG/200 ML PIGGYBACK 200 MG IV (11:01)
[2023-04-25 13:07] LABS: HBsAg Screen Negative (Negative); HCV Ab Non Reactive (Non Reactive); Hep A Ab, IgM Negative (Negative); Hep B Core Ab, IgM Negative (Negative)
== END 2023-04-23 11:40 | disposition short-term general hospital (02) ==
PROVIDERS: Emergency Provider Internal Medicine; PCP Family Medicine
DX: R17 Unspecified jaundice (principal); R10.9 Unspecified abdominal pain; Z79.02 Long term (current) use of antithrombotics/antiplatelets; Z79.899 Other long term (current) drug therapy; Z79.84 Long term (current) use of oral hypoglycemic drugs; F17.210 Nicotine dependence, cigarettes, uncomplicated; Z89.412 Acquired absence of left great toe
CPT/HCPCS: 36415; 70450; 71045; 72125; 74177; 80053; 80074; 83690; 84484; 85025; 96365; 96375; 99285; J0744; J1836; J3010; Q9966

== ENCOUNTER 2023-05-22 13:25 | Outpatient (OUT) | payer OTHER, SELFPAY ==
--- OUTSIDE RECORDS SUMMARY | 2023-05-22 13:47 | XMS_ITS | CCD ---
Author Name Unknown Address [address] [place] [address] Organization [facility] Care Team Providers Care Help Desk Support Specialist Name Role Phone CHARMAINE SETH Admitting Unavailable CHARMAINE SETH Attending Unavailable TEODORO SOLOMON Primary Care Unavailable TEODORO SOLOMON Referring Unavailable Luc Vargas Unavailable MAST ., DR YUNI Tony Attending Unavailable MAST ., DR YUNI Tony Consulting Unavailable MAST ., DR YUNI Tony Primary Care Unavailable MAST ., DR YUNI Tony Admitting Unavailable MAST ., DR YUNI Tony Admitting Unavailable MAST ., DR YUNI Tony Attending Unavailable MAST ., DR YUNI Tony Consulting Unavailable MAST ., DR YUNI Tony Primary Care Unavailable MAST ., DR YUNI Tony Primary Care Unavailable MAST ., DR YUNI Tony Attending Unavailable MAST ., DR YUNI Tony Admitting Unavailable MAST ., DR YUNI Tony Consulting Unavailable MAST ., DR YUNI Tony Primary Care Unavailable MAST ., DR YUNI Tony Attending Unavailable MAST ., DR YUNI Tony Admitting Unavailable MAST ., DR YUNI Tony Admitting Unavailable MAST ., DR YUNI Tony Attending Unavailable MAST ., DR YUNI Tony Consulting Unavailable MAST ., DR YUNI Tony Primary Care Unavailable VITO, DR LYRIC Pinto Consulting Unavailable MAST ., DR YUNI Tony Admitting Unavailable MAST ., DR YUNI Tony Attending Unavailable MAST ., DR YUNI Tony Consulting Unavailable MAST ., DR YUNI Tony Primary Care Unavailable VITO, DR LYRIC Pinto Consulting Unavailable MARYANNE, DR AMY Pinto Consulting Unavailable MAST ., DR YUNI Tony Admitting Unavailable MAST ., DR YUNI Tony Attending Unavailable MAST ., DR YUNI Tony Primary Care Unavailable MAST ., DR YUNI Tony Consulting Unavailable RHETT MARY Consulting Unavailable REGGIE RAMON Consulting Unavailable MAST ., DR YUNI Tony Consulting Unavailable MAST ., DR YUNI Tony Admitting Unavailable MAST ., DR YUNI Tony Attending Unavailable MAST ., DR YUNI Tony Primary Care Unavailable SHABBIR KINNEY Admitting Unavailable SHABBIR KINNEY Attending Unavailable SHABBIR KINNEY Consulting Unavailable ELIUD ., DR YUNI Tony Primary Care Unavailable MD Yuni Mast Primary Care Provider MD Luc Vargas Attending Provider MD Yuni Mast Primary Care Provider MD Luc Vargas Attending Provider Esau Riddle. Primary Care Physician MD Luc Vargas Attending Provider [phone] MD Esau Riddle Primary Care Provider [phone] MD Luc Vargas Admit Provider MD Reyes Hamilton Other Provider COLE MINAYA Attending Unavailable COLE MINAYA Referring Unavailable DOLCOLE HIDALGO Attending Unavailable DOLCOLE HIDALGO Attending Unavailable DOLCOLE HIDALGO Attending Unavailable COLE MINAYA Attending Unavailable Esau Riddle MD Primary Care Provider [phone] LUC TONY Attending Unavailable SHAILESH MIRANDA Admitting Unavailable TY LEDESMA Referring Unavailable ESAU RIDDLE Primary Care Unavailable ANGEL BURROWS Consulting Unavailable KARIN CRONIN Consulting Unavailable REID FLORES Consulting Unavailable Esau Riddle MD Primary Care Provider [phone] Luc Vargas Admitting Unavailable Luc Vargas Attending Unavailable Yuni Mast Primary Care Unavailable Luc Vargas Admitting Unavailable Luc Vargas Attending Unavailable Reyes Hamilton Consulting Unavailable Esau Riddle Primary Care Unavailable Luc Vargas Admitting Unavailable Luc Vargas Attending Unavailable Esau Riddle Primary Care Unavailable EDISON PINTO Attending Unavailable ESAU RIDDLE Primary Care Unavailable ESAU RIDDLE Primary Care Unavailable EDISON PINTO Admitting Unavailable EDISON PINTO Attending Unavailable ESAU RIDDLE Primary Care Unavailable NONE, XXXX Referring Unavailable Felix Jolly. Attending Unavaila ble Esau Riddle Referring Unavailable Felix Jolly Attending Unavaila ble Esau Riddle Attending Unavailable Esau Riddle Attending Unavailable YUNI MAST E Attending Unavailable Esau Riddle Attending Unavailable Esau Riddle Attending Unavailable Esau Riddle. Attending Unavailable Esau Riddle. Attending Unavailable Esau Riddle. Attending Unavailable Esau Riddle E. Attending Unavailable Esau Riddle. Attending Unavailable Felix Jolly. Referring Unavaila ble Felix Jolly Admitting Unavaila ble Felix Jolly. Attending Unavaila ble Esau Riddle Admitting Unavailable NILReid Velázquez R Attending Unavailable Esau Riddle Attending Unavailable Esau Riddle Attending Unavailable Esau Riddle Attending Unavailable Esau Riddle Attending Unavailable NONE, XXXX Referring Unavailable STANG, RADIO MECHANIC HELPER Radha L Admitting Unavailable STANG, RADIO MECHANIC HELPER Radha L Attending Unavailable NONE, XXXX Referring Unavailable Felix Jolly. Attending Unavaila ble Felix Jolly Attending Unavaila ble Felix Jolly Referring Unavaila ble Felix Jolly. Admitting Unavaila ble DolCole hidalgo Admitting Unavailable DolceCole Attending Unavailable Dolce Cole Shy Referring Unavailable Adamowicz, Frankie Admitting Unavailable Adamowicz, Frankie Attending Unavailable Adamowicz, Frankie Referring Unavailable Candis Wood Attending Unavailable Adamowicz, Frankie Attending Unavailable Adamowicz, Frankie Admitting Unavailable DolceCole Attending Unavailable DolceCole Admitting Unavailable Dolce, Cole Begum Attending Unavailable Dolce, Cole Shy Admitting Unavailable Adamowicz, Frankie Attending Unavailable Kendra Ortega Referring UnavailAlejandro Peraza Attending Unavailable BETHANY BAKER Attending Unavailable Cornell, Frankie Attending Unavailable Esau Riddle Referring Unavailable Cornell, Frankie Attending Unavailable Esau Riddle Referring Unavailable Felix Jolly. Attending Unavaila DONNIE Sheets Attending Unavailable ESAU RIDDLE Primary Care Unavailable Allergies Allergy Classification Reported Allergen(s) Allergy Type Date of Onset Reaction(s) Facility Sulfonamides (antibiotic) (1 source) Sulfonamides (Antibiotic) Drug Allergy 1 [facility] (20 sources) Albuterol; Translations: [albuterol] Drug Allergy 2 Severe (severity modifier) (qualifier value), Palpitations, Other [facility] (1 source) Albuterol Drug Allergy [facility] Rep[facility] (1 source) Sulfonamides (Antibiotic) Drug allergy (disorder) 5 [facility] Rep[facility] (13 sources) Sulfonamides (Antibiotic); Translations: [sulfa drugs] Drug allergy Mild (qualifier value) [facility] (6 sources) Sulfonamides (Antibiotic); Translations: [Sulfa (Sulfonamide Antibiotics)] Allergy to substance 3 Angioedema, Rash, Shortness of breath [facility] (1 source) Sulfonamides (Antibiotic) Propensity to adverse reactions to drug 4 Shortness Of Breath, Angioedema [facility] (1 source) Albuterol Drug Allergy 4 [facility] Repository Medications Current Medications Medication Drug Class(es) Dates Sig (Normalized) Sig (Original) Acetaminophen (4 sources) Start: 04-23-2023 acetaminophen (TYLENOL) tablet 650 mg take 1 tablet by les th every twenty-four hours as needed acetaminophen (Tylenol) 325 mg tablet Ta ke 1 tablet (325 mg) by mouth once daily as needed. 0 Active aspirin 81 mg chewable tablet (20 sources) Platelet Aggregation Inhibitor, Nonsteroidal Anti-inflammatory Drug Start: 04-28-2023 take 1 tablet by mouth once daily aspirin 81 MG chewable tablet Take 1 tablet by mouth daily May resume in 5 days 30 tablet 3 04/28/2023 Active Start: 06-17-2022 take 1 tablet by les th once daily aspirin 81 mg EC tablet Take 1 tablet (81 mg) by mouth once daily. 0 06/17/2022 Active End: 04-28-2023 take 1 tablet by mouth once daily aspirin 81 MG chewable tablet Take 1 tablet by mouth daily 0 04/28/2023 Discontinued Baby Aspirin Act tristan atorvastatin 20 mg oral tablet (20 sources) HMG-CoA Reductase Inhibitor Start: 06-29-2022 take 1 tablet by mouth at bedtime atorvastatin 20 mg Tab 20 mg = 1 tab(s), Oral, Bedtime, # 90 tab(s), Refills(s) 3, Pharmacy: [facility]/pharmacy #[id number], 157, cm, 03/30/23 8:55:00 EST, Height/Length Dosing, 91.6, kg, 03/30/23 8:55:00 EST, Weight Dosing Start Date: 04/21/23 Status: Ordered take 1 tablet by mouth once rafa y atorvastatin (Lipitor) 40 mg tablet Take 1 tablet (40 mg) by mouth once daily. 0 Active Basaglar KwikPen (2 sources) Basaglar KwikPen Active clopidogrel 75 mg oral tablet (20 sources) P2Y12 Platelet Inhibitor Start: 04-28-2023 take 1 tablet by mouth once daily clopidogrel (PLAVIX) 75 MG tablet Take 1 tablet by mouth daily May resume in 5 days 30 tablet 3 04/28/2023 Active Start: 06-29-2022 End: 04-28-2023 take 1 tablet by mouth once daily clopidogrel (Plavix) 75 mg tablet Take 1 tablet (75 mg) by mouth once daily. 0 06/29/2022 Active Clopidogrel Bisu lfate Active doxycycline hyclate 100 mg oral capsule (1 source) Tetracycline-class Drug Start: 01-10-2023 End: 01-17-2023 take 1 capsule by mouth twice daily doxycycline hyclate 100 mg Cap 100 mg = 1 cap(s), Oral, BID, X 7 day(s), Refills(s) 0 Start Date: 01/10/23 Stop Date: 01/17/23 Status: Ordered 0.5 ml dulaglutide 1.5 mg/ml auto-injector (19 sources) GLP-1 Receptor Agonist Start: 11-16-2022 Trulicity 0.75 mg/0.5 mL pen injector Inject 0.75 mg under the skin 1 (one) time per week. Once a week on Mondays 0 03/01/2023 Active Trulicity Active famotidine 40 mg oral tablet (1 source) Histamine-2 Receptor Antagonist Start: 01-13-2023 End: 01-20-2023 take 1 tablet by mouth once daily at bedtime Pepcid 40 mg Tab 40 mg = 1 tab(s), Oral, Once a day (at bedtime), X 7 day(s), # 7 tab(s), Refills(s) 0, Pharmacy: [facility]/pharmacy #[id number], 157, cm, 01/13/23 13:28:00 EDT, Height/Length Dosing, 95, kg, 01/13/23 13:28:00 EDT, Weight Dosing Start Date: 01/13/23 Stop Date: 01/20/23 Status: Ordered fexofenadine hydrochloride 180 mg oral tablet (1 source) Histamine-1 Receptor Antagonist Start: 01-13-2023 End: 01-23-2023 take 1 tablet by mouth once daily fexofenadine 180 mg Tab 180 mg = 1 tab(s), Oral, Daily, X 10 day(s), # 10 tab(s), Refills(s) 0, [id number] 157, cm, 01/13/23 13:28:00 EDT, Height/Length Dosing, 95, kg, 01/13/23 13:28:00 EDT, Weight Dosing Start Date: 01/13/23 Stop Date: 01/23/23 Status: Ordered Freestyle Brady 2 Flash Glucose Monitoring 14 Day System ([place]) (9 sources) Start: 03-22-2023 Freestyle Brady 2 Flash Glucose Monitoring 14 Day System ([place]) Freestyle Brady 2 Flash Glucose Monitoring 14 Day System ([place]), See Instructions, 1 EA, 0, Freestyle Brady Flash Glucose Monitoring 14 Day System ([place]), [facility]/pharmacy #[id number], Supply, 157, cm, 03/22/23 15:05:00 EST, Height/Length Dosing, 94.6, kg, 03/22/23 15:05:00 EST, Weight Dosing Start Date: 03/22/23 Status: Ordered Freestyle Brady 2 Flash Glucose Monitoring 14 Day System (Sensor) (9 sources) Start: 04-04-2023 Freestyle Brady 2 Flash Glucose Monitoring 14 Day System (Sensor) Freestyle Brady 2 Flash Glucose Monitoring 14 Day System (Sensor), See Instructions, 6 EA, 1, Freestyle Brady Flash Glucose Monitoring 14 Day System (Sensor). Replace sensor every 14 days., [facility]/pharmacy #[id number], Supply, 157, cm, 03/30/23 8:55:00 EST, Height/Length Dosing, 91.6, kg, 03/30/23 8:55:00 EST, Weight Dosing Start Date: 04/04/23 Status: Ordered Start: 03-22-2023 Freestyle Libr e 2 Flash Glucose Monitoring 14 Day System (Sensor) Freestyle Brady 2 Flash Glucose Monitoring 14 Day System (Sensor), See Instructions, 6 EA, 0, Freestyle Brady Flash Glucose Monitoring 14 Day System (Sensor). Replace sensor every 14 days., [facility]/pharmacy #[id number], Supply, 157, cm, 03/22/23 15:05:00 EST, Height/Length Dosing, 94.6, kg, 03/22/23 15:05:00 EST, Weight Dosing Start Date: 03/22/23 Status: Ordered glipiZIDE 10 mg oral tablet (20 sources) Sulfonylurea Start: 06-29-2022 take 1 tablet by mouth twice daily before mealtime glipiZIDE (Glucotrol) 10 mg tablet Take 1 tablet (10 mg) by mouth 2 times a day before meals. 0 03/01/2023 Active glipiZIDE Active glucagon (rdna) 1 mg injection (1 source) Antihypoglycemic Agent Start: 04-26-2023 glucago n injection 1 mg 1000 ml glucose 100 mg/ml injection (3 sources) Start: 04-26-2023 dextrose 10 % infusion Start: 04-26-2023 dextrose bolus 10% 125 mL Start: 04-26-2023 glucose chewab le tablet 16 g insulin lispro 100 unt/ml injectable solution (16 sources) Insulin Analog Start: 04-24-2023 End: 04-26-2023 insulin lispro (HUMALOG) injection vial 0-4 Units Start: 04-20-2023 inject 2-10 [IU] by subcutaneous injection three times daily at mealtime insulin lispro (HumaLOG) 100 unit/mL injection Inject 2-10 Units under the skin 3 times a day with meals. 0 04/20/2023 Active Start: 04-20-2023 Start: 03-22-2023 Insulin Lispro KwikPen 100 units/mL injectable solution 15 unit(s), SubCutaneous, TIDAC, Per SSI. Max does of 45 in a day., # 15 mL, Refills(s) 0, Pharmacy: [facility]/pharmacy #[id number], 157, cm, 03/22/23 15:05:00 EST, Height/Length Dosing, 94.6, kg, 03/22/23 15:05:00 EST, Weight Dosing Start Date: 03/22/23 Status: Ordered insulin lispro, 1 Unit Dial, (HUMALOG KWIKPEN) 100 UNIT/ML SOPN Inject 2-10 Units into the skin 3 times daily (before meals) Per sliding scale: 151-200 = give 2U, 201-250 = give 4U, 251-300 = give 6U, 301-350 = give 8U, 351-400 = give 10U 0 Active lisinopril 30 mg oral tablet (20 sources) Angiotensin Converting Enzyme Inhibitor Start: 06-29-2022 take 1 tablet by mouth once daily lisinopril 30 mg tablet Take 1 tablet (30 mg) by mouth once daily. 0 03/01/2023 Active Lisinopril Activ e 100 ml magnesium sulfate 10 mg/ml injection (1 source) Start: 04-23-2023 take 1000 mg intravenously every hour as needed 1,000 mg, IntraVENous, at 100 mL/hr, Adm inister over 1 Hours, PRN, Other, Per IV Magnesium Replacement Protocol, Starting on 04/23/23 at 1325 Mg Lab Replacement Action 1.4- 1.6 1 gram IVPB x 2 doses &nb sp; (2 gram Total) 1.0-1.3 1 gram IVPB x 4 doses &nb sp; (4 gram Total) <1.0 CALL PHYSICIAN and &n bsp; 1 gram IVPB x 4 doses (4 gram Total) Infuse at 1 gram/hr. Repeat Mag level next AM. Protocol not for use in patients with CrCl less than 30 mL/min. 24 hr metFORMIN hydrochlor russ 500 mg extended release oral tablet (20 sources) B i g u a n i d e Start: 04-14-2023 take 2 tablets by mouth twice daily at mealtime metFORMIN XR 500 mg 24 hr tablet Take 2 tablets (1,000 mg) by mouth 2 times a day with meals. 0 04/14/2023 Active Start: 03-01-2023 take 500 mg by mouth twice manjeet ly Metformin Active 500 MG PO Twice daily March 01, 2023 12:00am Start: 10-17-2022 take 2 tablets by [facility] twice daily MetFORMIN (Eqv-Glucophage XR) 500 mg oral tablet, extended release See Instructions, TAKE 2 TABLETS BY MOUTH TWICE A DAY, # 360 tab(s), Refills(s) 0, Pharmacy: [id number], 157, cm, 03/30/23 8:55:00 EST, Height/Length Dosing, 91.6, kg, 03/30/23 8:55:00 EST, Weight Dosing Start Date: 04/14/23 Status: Ordered take 2 tablets by [facility] twice daily metFORMIN (GLUCOPHAGE-XR) 500 MG extended release tablet Take 2 tablets by mouth 2 times daily 0 Active metFORMIN HCl Ac tive metoprolol tartrate 100 mg oral tablet (20 sources) beta-Adrenergic Nayan Start: 10-06-2022 take 1 tablet by mouth twice daily metoprolol tartrate (Lopressor) 100 mg tablet Take 1 tablet (100 mg) by mouth 2 times a day. 0 10/06/2022 Active Metoprolol Tartr ate Active 1 ml morphine sulfate 4 mg/ml injection (1 source) Opioid Agonist Start: 04-23-2023 morphine sulfate (PF) injection 4 mg mupirocin 0.02 mg/mg topical ointment (2 sources) RNA Synthetase Inhibitor Antibacterial Start: 03-01-2023 Mupirocin Active APPLIC TOPICAL March 01, 2023 12:00am pantoprazole 40 mg delayed release oral tablet (11 sources) Proton Pump Inhibitor Start: 05-02-2023 take 1 tablet by mouth once daily before mealtime pantoprazole (ProtoNix) 40 mg EC tablet Take 1 tablet (40 mg) by mouth once daily in the morning. Take before meals. 0 05/02/2023 Active Start: 05-02-2023 pantoprazole 4 0 mg, Refills(s) 0 Start Date: 05/02/23 Status: Ordered Start: 04-28-2023 take 1 tablet by les th twice daily before mealtime pantoprazole (PROTONIX) 40 MG tablet Take 1 tablet by mouth 2 times daily (before meals) 60 tablet 3 04/28/2023 Active Start: 04-25-2023 pantoprazole ( PROTONIX) tablet 40 mg Potassium Chloride (1 source) Start: 04-23-2023 potassium chlo ride (KLOR-CON M) extended release tablet 40 mEq predniSONE 20 mg oral tablet (4 sources) Start: 01-13-2023 End: 01-17-2023 take 3 tablets by mouth once daily predniSONE 20 mg Tab 3, Oral, Daily, X 4 day(s), # 12 tab(s), Refills(s) 0, Pharmacy: [facility]/pharmacy #[id number], 157, cm, 01/13/23 13:28:00 EDT, Height/Length Dosing, 95, kg, 01/13/23 13:28:00 EDT, Weight Dosing Start Date: 01/13/23 Stop Date: 01/17/23 Status: Ordered Start: 01-13-2023 predniSONE 20 mg Tab TAKE 1 TABLET BY MOUTH 3 TIMES DAILY X4 DAYS THEN 1 TABLET TWICE DAILY X3 DAYS, X 7 day(s) Start Date: 01/13/23 Status: Ordered Promethazine (1 source) Phenothiazine Start: 04-23-2023 promethazine ( PHENERGAN) tablet 12.5 mg Completed/Discontinued Medications Medication Drug Class(es) Dates Sig (Normalized) Sig (Original) 0.4 ml enoxaparin sodium 100 mg/ml prefilled syringe (1 source) Low Molecular Weight Heparin Start: 04-23-2023 inject 40 mg by subcutaneous injection once daily 40 mg, SubCUTAneous, DAILY, First dose on Mon04/23/23 at 1345, Until Discontinued Indication of Use: Prophylaxis-DVT/PE Administer by deep subCUTAneous injection with pt lying down. Alternate injection sites on abdominal wall. Do not rub site after injection. Check with provider prior to any invasive procedure. furosemide 40 mg oral tablet (20 sources) Loop Diuretic Start: 04-26-2023 furosemide (LASIX) injection 40 mg Start: 06-29-2022 take 1 tablet by les th once daily furosemide (Lasix) 40 mg tablet Take 1 tablet (40 mg) by mouth once daily. 0 03/01/2023 Active Furosemide Activ e gadoteridol (PROHANCE) injection 16 mL (1 source) Start: 04-24-2023 End: 04-24-2023 gadoteridol (PROHANCE) injection 16 mL 500 ml glucose 50 mg/ml / potassium chloride 0.02 meq/ml / sodium chloride 4.5 mg/ml injection (1 source) Start: 04-23-2023 End: 04-24-2023 IntraVENous, at 125 mL/hr, CONTINUOUS, Starting on Mon04/23/23 at 1345 insulin glargine 100 unt/ml injectable solution (20 sources) Insulin Analog Start: 04-26-2023 inject 20 [IU] by subcutaneous injection twice daily 20 Units, SubCUTAneous, 2 TIMES DAILY, First dose on Mon04/26/23 at 2100, Until Discontinued Start: 04-20-2023 LANTUS SOLOSTA R 100 UNIT/ML injection pen Inject 20 Units into the skin 2 times daily 0 04/20/2023 Active Start: 04-20-2023 Start: 03-01-2023 Insulin Glargi ne (Lantus Solostar U-100 Insulin) 100 unit/mL (3 mL) insulin pen Active 20 UNIT SUBCUT Twice daily March 01, 2023 12:00am Start: 02-17-2023 Start: 01-24-2023 Start: 01-03-2023 Lantus Active insulin, regular, human 100 unt/ml injectable solution (1 source) Insulin Start: 04-25-2023 End: 04-25-2023 insulin regular (HUMULIN R;NOVOLIN R) injection 6 Units Start: 04-25-2023 End: 04-25-2023 insulin regular (HUMULIN R;N OVOLIN R) injection 6 Units iopamidol (ISOVUE-370) 76 % injection 75 mL (1 source) Start: 04-24-2023 End: 04-24-2023 iopamidol (ISOVUE-370) 76 % injection 75 mL polyethylene glycol 3350 21850 mg powder for oral solution (1 source) Osmotic Laxative Start: 04-23-2023 17 g, Oral, D AILY PRN, Starting on 04/23/23 at 1325, Until Discontinued, Constipation First line therapy for constipation 10 ml sodium bicarbonate 84 mg/ml injection (1 source) Start: 04-26-2023 End: 04-26-2023 sodium bicarbonate 8.4 % injection 50 mEq 50 ml sodium chloride 9 mg/ml injection (8 sources) Start: 04-24-2023 End: 04-24-2023 sodium chloride 0.9 % bolus 80 mL Start: 04-24-2023 0.9 % sodium c hloride infusion Start: 04-24-2023 End: 04-24-2023 sodium chloride flush 0.9 % injection 10 mL Start: 04-23-2023 take 1 dose intraven ously twice daily 5-40 mL, IntraVENous, EVERY 12 HOURS SCHEDULED (2 times per day), First dose on Mon04/23/23 at 2100, Until Discontinued For Line Patency: Peripheral IV = 5 mL; Midline or Central Line = 10 mL/lumen. If following IV push medication, administer flush at same rate as the IV push. Flush volume is determined by type of infusion therapy being given. For non-viscous solutions use: Peripheral IV = 5 mL Midline or Central Line = 10 mL/lumen For viscous solutions (i.e. blood components, parenteral nutrition, contrast media, or after obtaining blood sample) use: Peripheral IV = 10 mL Midline or Central Line = 20 mL/lumen Start: 04-23-2023 IntraVENous, a t 5-250 mL/hr, PRN, if patient receiving piggyback infusions and maintenance fluids are not ordered OR KVO fluids to protect IV site / prevent frequent line interruptions/ long duration, Starting on Mon04/23/23 at 1325 For piggyback infusion, administer at same rate as piggyback for a total of 25 mL. Enter 25 mL into dose field and piggyback rate into rate field of order. If piggyback is infusing at a rate less than 100 mL/hr, enter 25 mL into dose field and 100 mL/hr into rate field of order. For KVO fluids, enter rate of 20 mL/hr or less into rate field of order. Start: 04-23-2023 take 10 mL intraveno usly once as needed 10 mL, IntraVENous, PRN, Starting on Mon04/23/23 at 1325, Until Discontinued, Line Care, After every IV line use spironolactone 25 mg oral tablet (20 sources) Aldosterone Antagonist Start: 04-26-2023 take 50 mg by mouth once daily 50 mg, Oral, DAILY, First dose on Mon04/26/23 at 1730, Until Discontinued Start: 06-29-2022 take 1 tablet by les th once daily spironolactone (Aldactone) 50 mg tablet Take 1 tablet (50 mg) by mouth once daily. 0 06/29/2022 Active Spironolactone A ctive Problems Active Problems Problem Classification Problem Date Documented Date Episodic/Chronic Acute cerebrovascular disease (4 sources) Cerebral infarction, unspecified; Translations: [CEREBRAL INFARCTION UNSPECIFIED] Onset: 08-18-2021 Chronic Allergic reactions (14 sources) Allergic disposition; Translations: [Allergy, unspecified, initial encounter] Onset: 01-13-2023 Episodic Biliary tract disease (3 sources) Obstructive hyperbilirubinemia; Translations: [Obstruction of bile duct] Onset: 04-23-2023 04-25-2023 Chronic Cancer of pancreas (13 sources) Malignant tumor of pancreas; Translations: [Malignant tumor of head of pancreas] Onset: 05-08-2023 05-02-2023 Chronic Chronic obstructive pulmonary disease and bronchiectasis (16 sources) Chronic obstructive pulmonary disease, unspecified; Translations: [Chronic obstructive lung disease] Onset: 11-23-2021 07-20-2022 Chronic Congestive heart failure; nonhypertensive (17 sources) Heart failure, unspecified; Translations: [Acute on chronic diastolic (congestive) heart failure] Onset: 08-31-2021 06-17-2022 Chronic Comment on above: acute diastolic Coronary atherosclerosis and other heart disease (3 sources) Atherosclerotic heart disease of unga coronary artery without angina pectoris; Translations: [Coronary arteriosclerosis] Onset: 08-19-2020 04-23-2023 Chronic Coronary atherosclerosis and other heart disease (1 source) Coronary atherosclerosis and other heart disease; Translations: [Atherosclerosis of unga arteries of left leg with ulceration of other part of foot] Onset: 03-01-2023 Deficiency and other anemia (12 sources) Anemia; Translations: [Anemia, unspecified] 07-20-2022 Episodic Diabetes mellitus with complications (20 sources) Type 2 diabetes mellitus with unspecified diabetic retinopathy without macular edema; Translations: [Type 2 diabetes mellitus with unspecified complications] Onset: 11-03-2021 Chronic Diabetes mellitus without complication (6 sources) Type 2 diabetes mellitus without complications; Translations: [Type 2 diabetes mellitus] Onset: 11-23-2021 01-02-2023 Chronic Disorders of lipid metabolism (20 sources) Pure hypercholesterolemia, unspecified; Translations: [Hyperlipidemia, unspecified] Onset: 11-03-2021 Chronic Essential hypertension (14 sources) Hypertensive disorder; Translations: [Essential hypertension] Onset: 04-23-2023 06-17-2022 Chronic Gangrene (3 sources) Gangrene of toe of left foot; Translations: [Gangrene, not elsewhere classified] Episodic Gastroduodenal ulcer (except hemorrhage) (2 sources) Ulcer of duodenum; Translations: [Duodenal ulcer, unspecified as acute or chronic, without hemorrhage or perforation] Onset: 04-28-2023 04-28-2023 Chronic Headache; including migraine (1 source) Headache; including migraine; Translations: [HEADACHE UNSPECIFIED] Onset: 08-04-2021 Heart valve disorders (1 source) Combined rheumatic disorders of mitral, aortic and tricuspid valves; Translations: [COMB RHEUMAT D/O MITRL AORTC TRICSP] Onset: 08-24-2021 Chronic Hypertension with complications and secondary hypertension (20 sources) Hypertensive heart disease with heart failure; Translations: [Hypertensive urgency] Onset: 11-17-2021 Chronic Neoplasms of unspecified nature or uncertain behavior (3 sources) Neoplasm of uncertain behavior of pancreas; Translations: [Neoplasm of uncertain behavior of other specified digestive organs] Onset: 05-08-2023 05-08-2023 Episodic Occlusion or stenosis of precerebral arteries (13 sources) Carotid artery stenosis; Translations: [Occlusion and stenosis of unspecified carotid artery] Onset: 10-26-2021 Resolved: 10-26-2021 Chronic Other aftercare (7 sources) Post-discharge follow-up 05-02-2023 Episodic Other circulatory disease (12 sources) History of cerebrovascular accident 08-17-2022 Episodic Other circulatory disease (1 source) Other disorder of circulatory system Episodic Other connective tissue disease (1 source) Pain in unspecified foot Episodic Other lower respiratory disease (2 sources) Nodule of lung; Translations: [Solitary pulmonary nodule] Onset: 05-19-2023 05-19-2023 Episodic Other lower respiratory disease (2 sources) Solitary pulmonary nodule; Translations: [Solitary pulmonary nodule] Onset: 05-19-2023 Episodic Other nervous system disorders (1 source) Pain due to neoplastic disease 05-18-2023 Chronic Other nutritional; endocrine; and metabolic disorders (1 source) Obesity, unspecified; Translations: [OBESITY UNSPECIFIED] Onset: 11-23-2021 Chronic Other nutritional; endocrine; and metabolic disorders (1 source) Body mass index (BMI) 40.0-44.9, adult; Translations: [BODY MASS INDEX BMI 40.0-44.9 ADULT] Onset: 11-23-2021 Chronic Other nutritional; endocrine; and metabolic disorders (12 sources) Body mass index 30+ - obesity 01-13-2023 Chronic Other nutritional; endocrine; and metabolic disorders (14 sources) Obesity caused by energy imbalance; Translations: [Other obesity due to excess calories] Onset: 04-23-2023 01-13-2023 Chronic Pancreatic disorders (not diabetes) (3 sources) Mass of pancreas; Translations: [Other specified diseases of pancreas] Onset: 04-26-2023 04-25-2023 Episodic Peripheral and visceral atherosclerosis (8 sources) Peripheral vascular disease, unspecified; Translations: [Peripheral vascular disease] Onset: 03-16-2023 Chronic Pulmonary heart disease (2 sources) Pulmonary hypertension; Translations: [Pulmonary hypertension, unspecified] Onset: 08-19-2020 04-23-2023 Chronic Skin and subcutaneous tissue infections (12 sources) Infection of big toe 01-02-2023 Episodic Substance-related disorders (13 sources) Nicotine dependence, cigarettes, uncomplicated; Translations: [Smoker] Onset: 11-23-2021 06-17-2022 Chronic Comment on above: Added secondary to d ocumentation in Social History. Unclassified (1 source) CONTACT W/AND (SUSP) EXPOS COVID-19; Translations: [CONTACT W/AND (SUSP) EXPOS COVID-19] Onset: 11-23-2021 Unclassified (1 source) Occlusion and stenosis of left carotid artery; Translations: [Occlusion and stenosis of left carotid artery] Onset: 06-27-2022 Unclassified (2 sources) Patient encounter status 05-18-2023 Past or Other Problems Problem Classification Problem Date Documented Da te Episodic/Chronic Deficiency and other anemia (1 source) Anemia, unspecified; Translations: [ANEMIA UNSPECIFIED] Onset: 11-23-2021 Episodic Malaise and fatigue (4 sources) Weakness; Translations: [WEAKNESS] Onset: 08-02-2021 Episodic Other aftercare (1 source) senior care (current) use of aspirin; Translations: [DIRECTOR FINANCIAL PLANNING CURRENT USE OF ASPIRIN] Onset: 11-23-2021 Episodic Other aftercare (1 source) thermodynamicist (current) use of oral hypoglycemic drugs; Translations: [DIRECTOR FINANCIAL PLANNING USE ORAL HYPOGLYCEMIC DX] Onset: 11-23-2021 Episodic Other aftercare (1 source) Other fpc (current) drug therapy; Translations: [[facility] CURRENT DRUG THERAPY] Onset: 11-23-2021 Episodic Other circulatory disease (1 source) Personal history of transient ischemic attack (TIA), and cerebral infarction without residual deficits; Translations: [PERS HX TIA AND CI NO RESID DEFICIT] Onset: 11-23-2021 Episodic Respiratory failure; insufficiency; arrest (adult) (1 source) Acute respiratory failure with hypoxia; Translations: [ACUTE RESPIRATORY FAIL W/HYPOXIA] Onset: 11-23-2021 Episodic Unclassified (2 sources) Onset: 02-05-2024 Resolved: 05-19-2023 05-08-2023 Results Test Name Value Interpretation Reference Range Facility Cardiovascular Reporton 05-04 Cardiovascular Report [id number] FF Normal [facility] Consent for Treatmenton 05-04 Consent for Treatment [id number] F Normal [facility] ED Pat Eduon 05-18-2023 ED Pat Edu Infectious Disease Implanted Port Insertion Implanted port insertion is a procedure to put in a port and catheter. The port is a device with an injectable disc that can be accessed by your health care provider. The port is connected to a vein in the chest or neck by a small, thin tube (catheter). There are different types of ports. The implanted port may be used as a long-term IV access for: ? Medicines, such as chemotherapy. ? Fluids. ? Liquid nutrition, such as total parenteral nutrition (TPN). When you have a port, your health care provider can choose to use the port instead of veins in your arms for these procedures. Tell a health care provider about: ? Any allergies you have. ? All medicines you are taking, especially blood thinners, as well as any vitamins, herbs, eye drops, creams, azvg-tut-tbtzzpg medicines, and steroids. ? Any problems you or family members have had with anesthetic medicines. ? Any bleeding problems you have. ? Any surgeries you have had. ? Any medical conditions you have or have had, including diabetes or kidney problems. ? Whether you are or may be . What are the risks? Generally, this is a safe procedure. However, problems may occur, including: ? Allergic reactions to medicines or dyes. ? Damage to other structures or organs. ? Infection. ? Damage to the blood vessel, bruising, or bleeding at the puncture site. ? Blood clot. ? Breakdown of the skin over the port. ? A collection of air in the chest that can cause one of the lungs to collapse (pneumothorax). This is rare. What happens before the procedure? When to stop eating and drinking Follow instructions from your health care provider about what you may eat and drink before your procedure. These may include: ? 8 hours before your procedure ? Stop eating most foods. Do not eat meat, fried foods, or fatty foods. ? Eat only light foods, such as toast or crackers. ? All liquids are okay except energy drinks and alcohol. ? 6 hours before your procedure ? Stop eating. ? Drink only clear liquids, such as water, clear fruit juice, black coffee, plain tea, and sports drinks. ? Do not drink energy drinks or alcohol. ? 2 hours before your procedure ? Stop drinking all liquids. ? You may be allowed to take medicines with small sips of water. If you do not follow your health care provider's instructions, your procedure may be delayed or canceled. Medicines Ask your health care provider about: ? Changing or stopping your regular medicines. This is especially important if you are taking diabetes medicines or blood thinners. ? Taking medicines such as aspirin and ibuprofen. These medicines can thin your blood. Do not take these medicines unless your health care provider tells you to take them. ? Taking cohe-jlx-guokjxe medicines, vitamins, herbs, and supplements. General instructions ? If you will be going home right after the procedure, plan to have a responsible adult: ? Take you home from the hospital or clinic. You will not be allowed to drive. ? Care for you for the time you are told. ? You may have blood tests. ? Do not use any products that contain nicotine or tobacco for at least 4 weeks before the procedure. These products include cigarettes, chewing tobacco, and vaping devices, such as e-cigarettes. If you need help quitting, ask your health care provider. ? Ask your health care provider what steps will be taken to help prevent infection. These may include: ? Removing hair at the surgery site. ? Washing skin with a germ-killing soap. ? Taking antibiotic medicine. What happens during the procedure? ? An IV will be inserted into one of your veins. ? You will be given one or more of the following: ? A medicine to help you relax (sedative). ? A medicine to numb the area (local anesthetic). ? Two small incisions will be made to insert the port. ? One smaller incision will be made in your neck to get access to the vein where the catheter will lie. ? The other incision will be made in the upper chest. This is where the port will lie. ? The procedure may be done using continuous X-ray (fluoroscopy) or other imaging tools for guidance. ? The port and catheter will be placed. There may be a small, raised area where the port is placed. ? The port will be flushed with a saline solution, which is made of salt and water, and blood will be drawn to make sure that the port is working correctly. ? The incisions will be closed. ? Bandages (dressings) may be placed over the incisions. The procedure may vary among health care providers and hospitals. What happens after the procedure? ? Your blood pressure, heart rate, breathing rate, and blood oxygen level will be monitored until you leave the hospital or clinic. ? If you were given a sedative during the procedure, it can affect you for several hours. Do not drive or operat (more content not included)... Normal [facility] Oncology Pancreatic Cancer Pancreatic cancer is a type of cancer in which a cancerous (malignant) tumor develops in the pancreas. The pancreas is a gland in the abdomen between the stomach and the spine. The pancreas makes hormones and enzymes that help the body control blood sugar, digest food, and store energy from food. There are two types of pancreatic cancer: ? Exocrine. This is the most common type. ? Endocrine. This is also called islet cell cancer or pancreatic neuroendocrine tumor (NET). Pancreatic cancer can spread (metastasize) to other parts of the body. What are the causes? The exact cause of this condition is not known. What increases the risk? The following factors may make you more likely to develop this condition: ? Being over 65 years old. ? Smoking cigarettes. ? Having a family history of cancer of the pancreas, colon, or ovaries. ? Having diabetes. ? Having long-term inflammation of the pancreas (chronic pancreatitis). ? Being exposed to certain chemicals. ? Eating a diet that is high in fat and red meat. What are the signs or symptoms? In the early stages, there are often no symptoms of this condition. As the cancer gets worse, symptoms may vary depending on the type of pancreatic cancer you have. Common symptoms include: ? Nausea and vomiting. ? Loss of appetite and weight loss. ? Pain in the upper abdomen or upper back. ? Skin or the white parts of the eyes turning yellow (jaundice). ? Fatigue. Other symptoms include: ? Itchy skin. ? Dark urine. ? Stools that are: ? Light-colored and greasy-looking. ? Black and tarry-looking. ? High blood sugar (hyperglycemia). This may cause increased thirst and frequent urination. ? Low blood sugar (hypoglycemia). This may cause confusion, sweating, and a fast heartbeat. ? Depression. How is this diagnosed? This condition may be diagnosed based on your medical history and a physical exam. Your health care provider may: ? Check your skin and eyes for signs of jaundice. ? Check for excess fluid in the abdomen and changes in the abdomen near the pancreas. ? Do blood and urine tests, imaging tests, biopsy, and genetic testing. If pancreatic cancer is diagnosed, it will be staged to determine severity and extent. Staging checks: ? The size of the tumor. ? If the cancer has spread. ? Where the cancer has spread. How is this treated? Depending on the type and stage of your pancreatic cancer, treatment may include: ? Surgery to remove all or part of the pancreas or to remove the tumor. ? If the cancer has spread, portions of the stomach, bile duct, spleen, and small intestine may also be removed. ? Chemotherapy. This uses medicine to destroy the cancer cells. ? Radiation therapy. This uses high-energy beams to kill cancer cells. ? Medicine to attack a tumor's genes and proteins (targeted therapy). These medicines may limit the damage to healthy cells. ? Participating in clinical trials to see if new (experimental) treatments are effective. ? Medicines to help manage pain and other symptoms. A combination of surgery, radiation therapy, and chemotherapy may be used. Follow these instructions at home: Medicines ? Take ddve-tox-mbgentf and prescription medicines only as told by your health care provider. ? Ask your health care provider about changing or stopping your regular medicines. These include any diabetes medicines or blood thinners you take. ? Do not take dietary supplements or herbal medicines unless your health care provider tells you to. Some supplements can interfere with how well the treatment works. ? Ask your health care provider if the medicine prescribed to you: ? Requires you to avoid driving or using machinery. ? Can cause constipation. You may need to take these actions to prevent or treat constipation: ? Drink enough fluid to keep your urine pale yellow. ? Take ynde-kqa-xjrtxtc or prescription medicines. ? Eat foods that are high in fiber, such as beans, whole grains, and fresh fruits and vegetables. ? Limit foods that are high in fat and processed sugars, such as fried or sweet foods. Lifestyle ? Get enough sleep on a regular basis. Most adults need 6?8 hours of sleep each night. During treatment, you may need more sleep. ? Rest as told by your health care provider. ? Consider joining a cancer support group. Ask your health care provider about local and online support groups. This may help you to cope with the stress of having pancreatic cancer. ? Do not use any products that contain nicotine or tobacco. These products include cigarettes, chewing tobacco, and vaping devices, such as e-cigarettes. If you need help quitting, ask your health care provider. Eating and drinking ? Try to eat regular, healthy meals. Some of your treatments might affect your appetite. If you are having problems eating, see a food and nutrition consultant (dietitian). ? Do not drink alc (more content not included)... Normal [facility] Oncology Pulmonary Nodule A pulmonary nodule is a small, round growth of tissue in the lung. A nodule may be cancer, but most nodules are not cancer. What are the causes? ? Infection from a germ (bacteria, fungus, or virus), such as tuberculosis. ? Tissue that is cancer, such as: ? Cancer in the lung. ? Cancer that has spread to the lung from another part of the body. ? A growth of tissue (mass) that is not cancer. ? Swelling and irritation from conditions such as rheumatoid arthritis. ? Having blood vessels that are not normal in the lungs. What are the signs or symptoms? Many times, there are no symptoms. If you get symptoms, they normally have another cause, such as infection. How is this treated? Treatment depends on: ? If your nodule is cancer or if it is not cancer. ? What your risk of getting cancer is. Some nodules are not cancer. If this is the case for you, you may not need treatment. Your doctor may do tests to watch the nodule for changes. If the nodule is cancer: ? You will need tests, such as CT and PET scans. ? You may need treatment. This may include: ? Surgery. ? Treatment with high-energy X-rays (radiation therapy). ? Medicines. Some nodules need to be taken out. You may have a procedure to have the nodule taken out. During the procedure, your doctor will make a cut (incision) into your chest and take out the part of your lung that has the nodule. Follow these instructions at home: ? Take ethk-xqq-doozrcd and prescription medicines only as told by your doctor. ? Do not smoke or use any products that contain nicotine or tobacco. If you need help quitting, ask your doctor. ? Keep all follow-up visits. Contact a doctor if: ? You have pain in your chest, back, or shoulder. ? You are short of breath or have trouble breathing when you are active. ? You get a cough. ? Your voice starts to sound raspy, breathy, or strained (hoarse), and you do not know why. ? You feel sick or more tired than normal. ? You do not feel like eating. ? You lose weight without trying. ? You get chills, or you start to sweat a lot during sleep. ? You need two or more pillows to sleep on at night. ? You have: ? A fever and your symptoms get worse all of a sudden. ? A fever or symptoms for more than 2?3 days. Get help right away if: ? You cannot catch your breath. ? You have sudden chest pain. ? You start making high-pitched whistling sounds when you breathe, most often when you breathe out (you wheeze). ? You cannot stop coughing. ? You cough up blood or bloody mucus from your lungs (sputum). ? You get dizzy or feel like you may faint. These symptoms may represent a serious problem that is an emergency. Do not wait to see if the symptoms will go away. Get medical help right away. Call your local emergency services (911 in the [place] Do not drive yourself to the hospital. Summary ? A pulmonary nodule is a small, round growth of tissue in the lung. Most of these nodules are not cancer. ? Common causes of nodules in the lung include infection, swelling and irritation, and growths that are not cancer. ? Treatment depends on whether the nodule is cancer or is not cancer. Treatment also depends on your risk of getting cancer. ? If the nodule is cancer, you will need certain tests and treatments as told by your doctor. This information is not intended to replace advice given to you by your health care provider. Make sure you discuss any questions you have with your health care provider. Document Revised: 10/07/2020 Document Reviewed: 10/07/2020 Elsevier Patient Education ? 2022 [employer]. Normal [facility] ONC - Otheron 05-18-2023 ONC - Other [id number] F Normal [facility] ONC - Other History of Present Illness Background: Visit type and participants: Karuna Nelson is here with her sister Tessy for initial supportive oncology visit. PCP: Esau Riddle MD Summary of oncologic history: 62-year-old woman with hypertensive cardiomyopathy, COPD, recent-onset type 2 diabetes on insulin, peripheral vascular disease with amputation of gangrenous great toe in late March 2023 who presented to [facility] in [place] on 04/23/23 with 2-week history of right flank pain, nausea/vomiting, bilirubin of 6.3, imaging showing masses in pancreatic head/neck, left adrenal gland, and both lungs (2 total). FNA of the pancreatic head mass showed adenocarcinoma; left adrenal mass was negative for malignancy. She was hyperglycemic in the 300-400s and CA 19-9 was 1164. Hospitalization was complicated by anemia requiring 3 units RBCs; EGD showed gastritis and duodenal ulcer. Biliary stent was placed in the hospital and she was seen by Dr. Pinto at on 05/11 regarding resection pending results of right lung mass biopsy that will be done soon. She was also seen by webmethods consultant Dr. Jolly and cleared for surgery. Chief complaint/reason for referral: support, advance care planning, anticipated symptom management needs History of Present Illness: Today's visit focused on pain, relationship building, and advance care planning; briefly addressed smoking cessation. Pain: She continues to have some mild right mid-abdominal/flank discomfort (she qualified this didn't rise to the level of true pain), off and on, worsened if she sits around, unrelated to meals/bowel movements or other activities. She does not feel the need to take any medication for it; she does think an herbal tea helps some. It is a lot better than when she went to the hospital last month. She denies nausea/vomiting/constipa tion/diarrhea. Though she's aware she has pancreatic cancer, she attributes the pain to gallstones. Advance care planning: Both she and her sister spoke at length about how important family was for them. Tessy is the oldest - she also has another sister and a brother, all of whom live in [place]; 2 brothers are . She has 3 children in their 40s, 2 in [place], 1 in [place]; 9 grandchildren ages 2-19. She spends most of her time with one or more of these family members and is especially close to her siblings because her parents moved to [place] as soon as all of the children were out of the house, and then at relatively young ages. She said that mostly the siblings raised each other even when her parents were in the home. She understands she has pancreatic cancer but has a strong belief that she will be cured - it used to be a sentence, but not any more. This is based on her lars in God and also the experiences of her 2 sisters: Tessy had renal cell carcinoma 8 years ago, surgically resected without need for adjuvant treatment; and her other sister had lung cancer, also resected without need for other treatment. She is anticipating that the lung biopsy will be negative and she can be cured, though she understands she may need chemotherapy. She is not afraid of dying but wants to see all her granddaughters get ; while she dislikes spending so much time in doctors' offices, she is willing to do so if it will achieve that goal. While she isn't thinking about it much, she does understand the treatment may not be as effective as hoped, and in that case she feels she will cope because I know God is with me and so is my family. She does not have advance directives and was not familiar with them. Her preferred surrogate decision-maker would be her son-in-law Tyrone Clarke. She said that code status preferences were not addressed with her when she was in the hospital. We did discuss both today, including review of interventions involved in resuscitation and their likely outcomes for individuals in medical situations like hers. At this point she is not completely sure but thinks she would want resuscitation attempted; however she's clear she does not want to be kept alive by machines for any extended period and she would not want her family to face the decision to discontinue life support. Smoking cessation: She has greatly reduced her smoking but continues to smoke 1 pack per week. She is aware that it would be best to quit because she may require surgery, but doesn't think she can do this - wants to wait until she's in the hospital and unable to smoke. Medication trial history: None. Interventional pain management history: None. Functional status: She can do ADLs, cooking, and light housework. Her energy level has been normal for her. Her sister has been driving her to medical appointments. She does walk for exercise when weather permits. Opioid risk assessment: Personal history risk factors for potential misuse: early cigarette Family history risk factors for potential misuse: none Current use of BINDERY OPERATOR-active medications: none Sleep apnea: none known, at risk due to o (more content not included)... Normal [facility] ONC - Other [id number] IFF [facility] [facility] Oncology Progress Noteon Oncology Progress Note Diagnoses 1. Pancreas cancer (C25.9: Malignant neoplasm of pancreas, unspecified) Ordered: atropine, 0.4 mg, Injection, IV Push, REGIMEN As Directed PRN Other (see comment) for 12 hour(s), Stop date 05/18/23 2:12:00 EST, Routine, Start date 05/17/23 14:13:00 EST, 05/17/23 14:13:00 EST dexamethasone, 10 mg, Injection, IV Piggyback, Day of Tx, Routine, Start date 05/17/23, Infuse over 15 minute(s), 05/17/23 13:18:00 EST Dextrose 5% in Water intravenous solution 250 mL, 250 mL, IV, 20 mL/hr, for 12 hour(s), Stop date 05/18/23 1:02:00 EST, Routine, Start date 05/17/23 13:03:00 EST, 12.5 hour(s), Total volume (mL): 250, 89.7 kg, 1.98, m2, Days 1 fluorouracil, 4,800 mg, Soln-IV, IV Piggyback, Day of Tx, Routine, Start date 05/17/23, Infuse over 46 hour(s), 05/17/23 17:18:00 EST heparin flush, 500 unit(s), Soln-IV, IV Push, REGIMEN As Directed PRN Other (see comment) for 12 hour(s), Stop date 05/20/23 1:02:00 EST, Routine, Start date 05/19/23 13:03:00 EST, 05/19/23 13:03:00 EST heparin flush, 500 unit(s), Soln-IV, IV Push, REGIMEN As Directed PRN Other (see comment) for 12 hour(s), Stop date 05/18/23 1:02:00 EST, Routine, Start date 05/17/23 13:03:00 EST, 05/17/23 13:03:00 EST irinotecan, 300 mg, Soln-IV, IV Piggyback, Day of Tx, Routine, Start date 05/17/23, Infuse over 90 minute(s), 05/17/23 15:48:00 EST leucovorin, 800 mg, Powder-Inj, IV Piggyback, Day of Tx, Routine, Start date 05/17/23, Infuse over 90 minute(s), 05/17/23 15:48:00 EST lorazepam, 1 mg, Injection, IV Push, Day of Tx PRN Nausea/Vomiting, Stop date 05/18/23 1:03:00 EST, Routine, Start date 05/17/23 13:03:00 EST, 05/17/23 13:03:00 EST oxaliplatin, 170 mg, Soln-IV, IV Piggyback, Day of Tx, Routine, Start date 05/17/23, Infuse over 2 hour(s), 05/17/23 13:48:00 EST palonosetron, 250 mcg, Soln-IV, IV Push, Day of Tx, Routine, Start date 05/17/23, 05/17/23 13:18:00 EST pegfilgrastim, pegfilgrastim-jmdb (Fulphila), 6 mg, Injection, SubCutaneous, Day of Tx, Routine, Start date 05/19/23, 05/19/23 13:03:00 EST Sodium Chloride 0.9% intravenous solution 250 mL, 250 mL, IV, 20 mL/hr, for 12 hour(s), Stop date 05/18/23 1:02:00 EST, Routine, Start date 05/17/23 13:03:00 EST, 12.5 hour(s), Total volume (mL): 250, 89.7 kg, 1.98, m2, Days 1 Zero Hour, Day of Tx Zero Hour, Day of Tx Adult Chemotherapy Hypersensitivity Management Ambulatory Infusion Pump Discontinue CBC w/ Auto Diff Chemo Infusion Visit 300 Minutes Comprehensive Metabolic Panel Extravasation Management Protocol Prior Authorization Medication Request Pump Disconnect Treatment Lab Parameters Treatment Status Chief Complaint Pancreatic CA Pt wants to know if she should continue b/p meds. B/P has been low. Has been symptomatic for low b/p ext. lightheaded/ dizzy. B/P today is 128/68. Oncological History/ROS/PE/Assessmen t and Plan History of present illness 62-year-old female referred to me by Dr. Yojana Riddle in [place]. Past medical history includes chronic diastolic heart failure, COPD, coronary artery disease, type 2 diabetes, history of duodenal ulcer, hypercholesterolemia, primary hypertension, pulmonary hypertension. Outpatient medications include Plavix, aspirin, Protonix, Lipitor, Trulicity, Lasix, glipizide, insulin, lisinopril, metformin, Lopressor, Aldactone, Lantus. She had toe removed in apr 2023 for gangrene. has significant peripheral vascular disease and needed balooning veins in legs around this time. She presented with obstructive jaundice on April 23, 2023. She was admitted to [facility] she was found to have obstructive jaundice. MRI of the abdomen with and without contrast MRCP from April 27, 2023 showed a subtle focal area of hypoenhancement and increased T2 signal at the pancreatic head measuring 2.8 x 2.1 cm extending predominantly within the pancreaticoduodenal groove with restricted diffusion. Moderate intra and extrahepatic biliary ductal dilation with severe narrowing versus termination near the level of the pancreatic head near the masslike area. Findings are concerning for underlying neoplasm. Distended gallbladder with sludge. Findings are nonspecific for acute cholecystitis. 6 mm left lower lobe pulmonary nodule. A CT of the chest abdomen and pelvis with IV contrast from April 24, 2023 shows an ill-defined hypoenhancing area of the pancreatic head concerning for primary neoplasm. Also ductal dilation etc. 1.4 cm left adrenal mass. Likely benign adenoma. 1.1 cm right lower lobe mass and a 6 to 7 mm left lower lobe nodule. No other evidence of metastatic disease in the chest abdomen or pelvis. Mild grade 1 anterolisthesis of L5 on S1. Labs from April 23, 2023 showed creatinine of 0.9, slight hyponatremia with a sodium of 131. Hemoglobin of 8.9 with an MCV of 86.3. Platelet count of 305 with a white blood cell count of 9.2 and a normal white blood cell differential. By April 26, 2023 her hemoglobin was 5.6 with a repeat 6.2 with an MCV of 89.4. By April 27, 2023 her hem (more content not included)... Normal [facility] Patient History Officeon Patient History Office [id number]#1.00TI FF Normal [facility] Patient History Office [id number]#1.00TI FF Normal [facility] Physician Orderon 05-18-2023 Physician Order [id number]#1.00T IFF [facility] Laboratory Outside Office Co pyon 05-17-2023 Laboratory Outside Office Copy [id number]#1.00TIF F [facility] Reference Lab Reporton 05-17 Reference Lab Report [id number] FF [facility] Reference Lab Report [id number]#1.00TI FF [facility] Consent for Procedure/Surger yon 05-16-2023 Consent for Procedure/Surgery [id number]#1.00TI FF Normal [facility] Consent for Treatmenton 05-04 Consent for Treatment [id number]#1.00TIF F [facility] Discharge Instructionson Discharge Instructions [id number]#1.00TI FF [facility] Operative Reporton Operative Report Indication for Surge ry Abnormal stress test Preoperative Diagnosis Presumed CAD Postoperative Diagnosis Minimal non-obstructive CAD Operation Coronary angiography Left ventriculography Hemodynamic measurements of LV This note is completed immediately following the procedure the date and time of this procedure are the same as this note. Patient Surgeon(s) Felix Jolly MD Anesthesia Conscious sedation Estimated Blood Loss Trivial Findings LMT: Normal left main trunk with bifurcation LAD: Normal caliber with mild diffuse disease, moderate calcification, <30% stenosis, reaches the apex. LCx: Small caliber with no stenosis, reaches only the basal lateral wall. RCA: Normal caliber with mild diffuse disease, moderate calcification, <30% stenosis, dominant, reaches the inferior wall. Hemodynamics: Normal LVEDP with no gradient across the aortic valve. Left ventriculography: Normal LV systolic function, EF 55-60%, no wall motion abnormalities and normal chamber size with no mitral regurgitation. Conclusions: Minimal non-obstructive CAD. Medical therapy is advised. Acceptable risk for non-cardiac surgery. Complications none Technique Following full and informed consent the patient was brought to the Paralegal where sterile prep and drape were administered in usual fashion. Anesthesia was obtained in the right wrist with lidocaine after administration of conscious sedation. A 5/6 slender Terumo sheath was placed in the right radial artery without complication. Nitroglycerin and nicardipine were given via the sheath and heparin was given intravenously. A 5 [place] JACKE catheter was advanced and selectively engaged in the left main coronary artery and right coronary artery each, where selective injections were performed. A pigtail catheter was placed in the left ventricle where hemodynamic measurements the left ventricle were made and a bolus was given for left ventriculography. A pullback gradient was obtained. The sheath was removed with hemostasis obtained by D-Stat radial device at the end of the procedure without complication. Normal [facility] Comment on above: Result Comment: Elec tronically Signed By: Rik MISTRY, Felix Vann\.br\Date and Time Signed: 05/16/23 12:55 [facility] 05-16-19 [facility] Case Information Case Priority: None Programs: -- Referral Source: [place] Referral Reason: Care coordination Case Type: High Risk Adult Risk Score: -- Case Status: Enrolled (May 01, 2023) Date Assigned: May 01, 2023 Assigned By: Tom Merlos Date Enrolled: May 01, 2023 Assigned Primary Personnel: Tom Merlos Assigned Secondary Personnel: -- Case Physician: Esau Riddle MD Problems Ongoing Allergic eczema Anemia BMI 38.0-38.9,adult Cardiomyopathy due to hypertension, without heart failure Chronic obstructive pulmonary disease Congestive heart failure Controlled type 2 diabetes mellitus with other skin complication, without long-term current use of insulin Diabetic retinopathy Hospital discharge follow-up HTN (hypertension) Hx of cerebral infarction Hypercholesterolemia Infection of great toe Obesity due to excess calories Pancreatic cancer Smoker Historical No qualifying data Procedure/Surgical History Cardiac catheterization, left heart (05/15/2023), Cardiac catheterization, Surgery. Home Medications aspirin 81 mg Oral EC Tab, 81 mg= 1 tab(s), Oral, Daily atorvastatin 20 mg Tab, 20 mg= 1 tab(s), Oral, Bedtime, 3 refills clopidogrel 75 mg Tab, 75 mg= 1 tab(s), Oral, Daily, 3 refills Freestyle Brady 2 Flash Glucose Monitoring 14 Day System (Selfridge), See Instructions Freestyle Brady 2 Flash Glucose Monitoring 14 Day System (Sensor), See Instructions, 1 refills furosemide 40 mg Tab, 40 mg= 1 tab(s), Oral, Daily, 3 refills glipiZIDE 10 mg Tab, 10 mg= 1 tab(s), Oral, BID, 3 refills HumaLOG KwikPen 100 units/mL injectable solution, See Instructions Lantus Solostar Pen 100 units/mL subcutaneous solution, See Instructions lisinopril 30 mg Tab, 30 mg= 1 tab(s), Oral, Daily, 3 refills MetFORMIN (Eqv-Glucophage XR) 500 mg oral tablet, extended release, See Instructions metoprolol tartrate 100 mg Tab, 100 mg= 1 tab(s), Oral, BID, 3 refills pantoprazole, 40 mg spironolactone 50 mg Tab, 50 mg= 1 tab(s), Oral, Daily, 3 refills sure comfort pen needle 30 gauge x 5/16, See Instructions Trulicity Pen 0.75 mg/0.5 mL subcutaneous solution, 0.75 mg, SubCutaneous, qWeek, 2 refills Allergies albuterol (Severe) sulfa drugs (Mild) Social History Alcohol - Denies Alcohol Use, 08/17/2022 Household alcohol concerns: No., 08/17/2022 Home/Environment Lives with Children., 06/17/2022 Substance Abuse - Denies Substance Abuse, 08/17/2022 Current, 01/13/2023 Household substance abuse concerns: No., 08/17/2022 Tobacco - High Risk, 08/17/2022 4 or less cigarettes(less than 1/4 pack)/day in last 30 days Tobacco Use:. Never Smokeless Tobacco Use:. Cigarettes, Household tobacco concerns: No. Yes, 05/05/2023 Family History Acute myocardial infarction: Father. COPD: Mother. Diabetes mellitus type 1: Father. 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 States 'everyday I have something going on.' Patient is leaving shortly to go to oncology follow up, and has appointment again with oncology on to go over chemo treatments. Monday, she states [employer] will be out to get her meal plan while on chemo. Patient had heart cath completed 05/15, denies any concerns with radial site. Notes no blockage was found. Patient is holding metformin and glipizide following procedure, will resume 48 hours post cath. Patient states she is eating and drinking well. CN reviewed importance of hydration following cath, patient verbalized understanding. Reports BS this am was 112. Patient notes bowels are moving good. Patient denies any urinary systems issues. Patient denies any further questions or concerns. Communication Events Date: May 16, 2023 Method: Phone call Type: Outbound Duration (min): 6 Outcome: Case discussion Contact Type: pricing coordinator Contact Name: Tom Merlos Notes: DIPPER MACHINE OPERATOR#3- spoke with patient, see ft summary note. Created By: Tom Merlos Date: May 09, 2023 Method: Phone call Type: Outbound Duration (min): 10 Outcome: Case discussion Contact Type: pricing coordinator Contact Name: Tom Merlos Notes: JORGE#2- spoke with patient for master ship, see ft summary note. Created By: Tom Merlos Date: May 01, 2023 Method: Phone call Type: Outbound Duration (min): 6 Outcome: Case discussion Contact Type: pricing coordinator Contact Name: Chelita, Tom R Notes: DIPPER MACHINE OPERATOR#1- Spoke with patient for initial DIPPER MACHINE OPERATOR call, see ft yvan note. Created By: Tom Merlos [facility] Consent for Treatmenton 05-04 Consent for Treatment [id number]#[id number] F Normal [facility] Inpatient Clinical Summaryon 05-15-2023 Inpatient Clinical Summary [address] [address] Clinical Summary Person Information: Name: KARUNA NELSON Age: 62 Years : 1960 Sex: Female PCP: Esau Riddle MD Marital Status: Race: White Ethnicity: Non- or Language: [place] Visit Id: Visit Reason: R94.39, I25.10 Speciality: Acuity: Enc Type: Ambulatory/Same Day Surgery Med Service: Surgery Arrival: 05/15/2023 07:21:32 Discharge: Dispo Type: Address: [address] [place] [id number] Provider Notes: Diagnosis: Problems Active Pancreatic cancer Hospital discharge follow-up Congestive heart failure Controlled type 2 diabetes mellitus with other skin complication, without long-term current use of insulin Obesity due to excess calories BMI 38.0-38.9,adult Allergic eczema Infection of great toe Hx of cerebral infarction Chronic obstructive pulmonary disease Anemia Cardiomyopathy due to hypertension, without heart failure Smoker Diabetic retinopathy Hypercholesterolemia HTN (hypertension) Smoking Status: Current Every Day Smoker Functional Status: Sensory Deficits: Uncorrected visual impairment History of Falls: Within last three months Mobility Assistance Prior to Admission: Independent ADLs: Independent Current Level of Assistance for Self-Care/Mobility: Cognitive Status: Allergies albuterol (Severe) sulfa drugs (Mild) Measurements: Height: 157 cm Weight: 89.7 kg Blood Pressure: 138 mmHg / 44 mmHg BMI: 36.39 kg/m2 Procedures Cardiac catheterization, left heart (05/15/2023) Immunizations No Immunizations Documented This Visit Final Med List: aspirin (aspirin 81 mg Oral EC Tab) 1 Tablets By Mouth every day. atorvastatin (atorvastatin 20 mg Tab) 1 Tablets By Mouth at bedtime. Refills: 3. clopidogrel (clopidogrel 75 mg Tab) 1 Tablets By Mouth every day. Refills: 3. dulaglutide (Trulicity Pen 0.75 mg/0.5 mL subcutaneous solution) 0.75 Milligram Subcutaneous every week. Refills: 2. furosemide (furosemide 40 mg Tab) 1 Tablets By Mouth every day. Refills: 3. glipiZIDE (glipiZIDE 10 mg Tab) 1 Tablets By Mouth 2 times a day. Refills: 3. insulin glargine (Lantus Solostar Pen 100 units/mL subcutaneous solution) INJECT 20 UNITS SUBCUTANEOUSLY TWICE A DAY. Refills: 0. insulin lispro (HumaLOG KwikPen 100 units/mL injectable solution) INJECT 15 UNITS SUBCUTANEOUSLY 3 TIMES A DAY. MAX DOSE OF 45 IN A DAY. Refills: 0. lisinopril (lisinopril 30 mg Tab) 1 Tablets By Mouth every day. Refills: 3. metformin (MetFORMIN (Eqv-Glucophage XR) 500 mg oral tablet, extended release) TAKE 2 TABLETS BY MOUTH TWICE A DAY. Refills: 0. metoprolol (metoprolol tartrate 100 mg Tab) 1 Tablets By Mouth 2 times a day. Refills: 3. Misc Prescription (Freestyle Brady 2 Flash Glucose Monitoring 14 Day System (Selfridge)) Freestyle Brady Flash Glucose Monitoring 14 Day System ([place]ridge). Refills: 0. Misc Prescription (Freestyle Brady 2 Flash Glucose Monitoring 14 Day System (Sensor)) Freestyle Brady Flash Glucose Monitoring 14 Day System (Sensor). Replace sensor every 14 days.. Refills: 1. Misc Prescription (sure comfort pen needle 30 gauge x 5/16) use bid for E10.8. pantoprazole 40 Milligram. spironolactone (spironolactone 50 mg Tab) 1 Tablets By Mouth every day. Refills: 3. Care Team Members: Attending Physician: Felix Jolly MD Consulting Physician: Referring Physician: Felix Jolly MD Follow up: With: Address: When: Esau Riddle With: Address: When: Felix Jolly [address] [place] [id number] [facility] (1) 06/09/2023 1:45 PM Comments: Keep scheduled appointment Type Location Start Finish State ONC Supportive Care New (FT) FT.ONCOLOGY 05/16/2023 11:00 AM 05/16/2023 12:00 PM Confirmed ONC Office Visit 30 (FT) FT.ONCOLOGY 05/18/2023 9:30 AM 05/18/2023 10:00 AM Confirmed FM Open [facility] FM [place] 06/06/2023 2:15 PM 06/06/2023 2:30 PM Confirmed Cardiology Follow Up (FT) FT.Cardiology Clinic [place] 06/09/2023 2:15 PM 06/09/2023 2:30 PM Confirmed Patient Education Information: CV - Cardiovascular Discharge Instructions (Custom) [facility] Inpatient Patient Summaryon 05-15-2023 Inpatient Patient Summary [address] [address] Patient Discharge Instructions PERSON INFORMATION Name: KARUNA NELSON Date of : 1960 Current Date: 05/15/2023 12:34:51 PHYSICIANS Admitting Physician: Felix Jolly MD Primary Care Physician: Esau Riddle MD PCP Comment: Discharge Diagnosis: Condition at Discharge: Stable KARUNA NELSON has been given the following list of follow-up instructions, prescriptions, and patient education materials: PATIENT FOLLOW-UP INFORMATION Diet: Discharge Activity: Discharge Restrictions: No driving for 24 hrs, Do not operate machinery or tools, Do not make important decisions for 24 hours, Do not drink alcoholic beverages for 24 hours Wound Care Instructions: Remove dressing as instructed Remove Your Dressing In Days Call Your Doctor For: IF UNABLE TO CONTACT YOUR PHYSICIAN AND YOU FEEL IT IS AN EMERGENCY, GO TO THE NEAREST EMERGENCY ROOM OR CALL 911 Home Treatment: Devices/Equipment: Special Services: Additional Instructions: Primary Care Physician to provide the following pending test results: None Follow up: With: Address: When: Esau Riddle With: Address: When: Felix Jolly [address] [place] [address] [id number] Business (1) 06/09/2023 1:45 PM Comments: Keep scheduled appointment In the event that this physician does not participate in your insurance network, please consult with your insurance company to find a nearby participating provider. Type Location Start [facility] ONC Supportive Care New (FT) FT.ONCOLOGY 05/16/2023 11:00 AM 05/16/2023 12:00 PM Confirmed ONC Office Visit 30 (FT) FT.ONCOLOGY 05/18/2023 9:30 AM 05/18/2023 10:00 AM Confirmed FM Open [facility] FM [place] 06/06/2023 2:15 PM 06/06/2023 2:30 PM Confirmed Cardiology Follow Up (FT) FT.Cardiology Clinic [place] 06/09/2023 2:15 PM 06/09/2023 2:30 PM Confirmed Comment: OMAR Gentile VERONICA, have received the attached patient education materials/instructions and have verbalized understanding: Patient Signature Date Clinican/Nurse Signature Date HERE ARE THE MEDICATION CHANGES THAT OCCURRED DURING YOUR HOSPITAL STAY Medications to Continue with No Changes Other Medications aspirin (aspirin 81 mg Oral EC Tab) 1 Tablets By Mouth every day. Last Dose: _Next Dose: _ atorvastatin (atorvastatin 20 mg Tab) 1 Tablets By Mouth at bedtime. Refills: 3. Last Dose: _Next Dose: _ clopidogrel (clopidogrel 75 mg Tab) 1 Tablets By Mouth every day. Refills: 3. Last Dose: _Next Dose: _ dulaglutide (Trulicity Pen 0.75 mg/0.5 mL subcutaneous solution) 0.75 Milligram Subcutaneous every week. Refills: 2. Last Dose: _Next Dose: _ furosemide (furosemide 40 mg Tab) 1 Tablets By Mouth every day. Refills: 3. Last Dose: _Next Dose: _ glipiZIDE (glipiZIDE 10 mg Tab) 1 Tablets By Mouth 2 times a day. Refills: 3. Last Dose: _Next Dose: _ insulin glargine (Lantus Solostar Pen 100 units/mL subcutaneous solution) INJECT 20 UNITS SUBCUTANEOUSLY TWICE A DAY. Refills: 0. Last Dose: _Next Dose: _ insulin lispro (HumaLOG KwikPen 100 units/mL injectable solution) INJECT 15 UNITS SUBCUTANEOUSLY 3 TIMES A DAY. MAX DOSE OF 45 IN A DAY. Refills: 0. Last Dose: _Next Dose: _ lisinopril (lisinopril 30 mg Tab) 1 Tablets By Mouth every day. Refills: 3. Last Dose: _Next Dose: _ metformin (MetFORMIN (Eqv-Glucophage XR) 500 mg oral tablet, extended release) TAKE 2 TABLETS BY MOUTH TWICE A DAY. Refills: 0. Last Dose: _Next Dose: _ metoprolol (metoprolol tartrate 100 mg Tab) 1 Tablets By Mouth 2 times a day. Refills: 3. Last Dose: _Next Dose: _ Misc Prescription (Freestyle Brady 2 Flash Glucose Monitoring 14 Day System (Selfridge)) Freestyle Brady Flash Glucose Monitoring 14 Day System ([place]ridge). Refills: 0. Last Dose: _Next Dose: _ Misc Prescription (Freestyle Brady 2 Flash Glucose Monitoring 14 Day System (Sensor)) Freestyle Brady Flash Glucose Monitoring 14 Day System (Sensor). Replace sensor every 14 days.. Refills: 1. Last Dose: _Next Dose: _ Misc Prescription (sure comfort pen needle 30 gauge x 5/16) use bid for E10.8. Last Dose: _Next Dose: _ pantoprazole 40 Milligram. Last Dose: _Next Dose: _ spironolactone (s (more content not included)... [facility] Pathology Noteon 05-15-2023 Pathology Note [id number]#[id number] F [facility] Patient Education - Text[place] 0 05-15-2023 Patient Education - Text [place], [place] CARDIOVASCULAR DISCHARGE INSTRUCTIONS Diet: ? Resume pre-procedure diet. ? Increase water intake the next 2 days to flush dye out of the body. Activity: If radial access: ? Limit your activity today. Do not operate a vehicle, machinery or power tools. ? NO LIFTING OVER 3 POUNDS for 3 days. ? Do not bend your wrist for 24 hours. ? May resume driving in 24 hours. ? No sexual activity for 1 week. ? Let pain/discomfort guide your activity. If you are having pain, stop. ? Return to the Emergency Room if you have trouble breathing, walking or nausea and vomiting. Medications: ? Resume pre-procedure medication, unless otherwise directed. ? Hold the following medications for 48 hours post procedure: Actoplus Met Glucophage Glucophage XR Glucovance Avandamet Fortamet Apo-metformin Glycon Shey-metformin Glumetza Janumet Metaglip Riomet Glycomet *Minimal pain, soreness and/or discomfort is expected. *You may take OTC non-steroidal anti-inflammatory to manage discomfort, unless contraindicated. If pain is not controlled with the above medications, contact your physician. Site Care: ? Do not remove dressing for 24 hours unless it becomes saturated, then replace. ? Keep site clean and dry; inspect site daily. ? Do not use any lotions, powders, or ointments at the groin or wrist site for 1 week. ? May shower 24 hours after the procedure. Clean site with soap and water. Pat dry and apply band aid. No tub baths, swimming or hot tubs for 3 days Post Procedure: ? Soreness and tenderness to the site can last up to one week. ? Bruising may occur to site. ? A responsible adult should be with you for the first 24 hours after you arrive home. ? Keep follow-up appointment. ? No smoking for 24 hours as it increases the risk of developing blood clots. ? If you are interested in smoking cessation, contact [facility] at [phone], ext. [phone]. ? In the event you are unable to reach your physician, please call [facility] at [phone] and the hoop rolls operator will assist you. Seek Immediate Medical Care for: ? Bleeding: Apply continuous pressure to the site and Call 911. ? Should the arm or leg become cold, numb, blue or white call your physician immediately. ? Signs of infection are redness, warmth, swelling, increased tenderness, colored drainage, fever or chills ? Chest pain ? Normal [facility] Outside Oncologyon Outside Oncology [id number] [id number]#[id number] F Normal [facility] NM PET w/ CT Scan Skull Base to Midthighon 05-11-2023 NM PET w/ CT Scan Skull Base to Midthigh Exam Date/Time: 05/10/2023 17:01 EST Reason for Exam: C25.3 Malignant neoplasm of pancreatic duct Report IMPRESSION: TWO FOCAL PANCREATIC LESIONS WITH INCREASED UPTAKE OF ACTIVITY, ONE INVOLVING THE ANTERIOR PANCREATIC HEAD AND THE OTHER THE POSTERIOR PANCREATIC NECK. THE FINDINGS ARE CONSISTENT WITH METABOLICALLY ACTIVE NEOPLASM. STATUS POST PLACEMENT OF A BILIARY DUCTAL STENT. DIFFUSELY INCREASED UPTAKE BY THE GALLBLADDER WALL, AND PLEASE REFER TO THE COMMENT FOR DISCUSSION. SMALL LEFT CERVICAL LYMPH NODE, WITH INCREASED UPTAKE, SMALL AREA OF INCREASED UPTAKE OF ACTIVITY POSTERIOR INFERIOR RIGHT PAROTID GLAND (POSSIBLY WITHIN INTRAPAROTID LYMPH NODE), AND SMALL NODULE RIGHT LOWER LOBE CENTRALLY, WITH INCREASED UPTAKE OF ACTIVITY. INCREASED UPTAKE IS SUSPICIOUS FOR NEOPLASTIC/METASTATIC FOCI. INCREASED ACTIVITY WITHIN THE UTERINE FUNDUS CENTRALLY, SUSPICIOUS FOR ENDOMETRIAL CARCINOMA (ASSUMING THE PATIENT HAS NOT HAD RECENT ENDOMETRIAL BIOPSY). CLINICAL HISTORY: C25.3 Malignant neoplasm of pancreatic duct. COMPARISON: CT on 04/24/2023. COMMENT: Following the intravenous injection of 13.35 mCi of F18 FDG, axial PET images were obtained from the skull base to the mid thigh level. Unenhanced axial CT images were obtained from the skull base to the mid thigh level. Coronal and sagittal reconstructions were performed. The PET and CT images were fused. Prior to the injection of radionuclide, the patient's blood sugar was 70 mg/dL. No abnormal uptake activity is noted at the skull base. On CT images, there is a 0.6 cm lymph node located between the posterior inferior aspect of the left parotid gland and the anterior aspect of the left sternocleidomastoid muscle, superior to the level of the hyoid, with increased uptake of activity and SUV of 9.9. There is a small area of increased uptake activity at the posterior inferior aspect of the right parotid gland, with SUV of 4.5. There is physiologic activity in the neck. No mass is noted in either breast. There are small bilateral axillary lymph nodes, that do not demonstrate increased uptake of activity. There are small nonspecific mediastinal lymph nodes, that do not demonstrate increased uptake activity. No supraclavicular nor axillary lymphadenopathy nor abnormal uptake is noted. Of incidental note, there are atherosclerotic calcifications in the chest, including coronary artery calcifications. There is a 0.8 cm nodule in the perihilar right lower lobe centrally, with increased Report uptake and SUV of 10.7. There is a 0.5 cm nodular density in the basilar left lower lobe, without increased uptake. There is a common bile duct stent, extending from the second portion of the duodenum to the common hepatic bile duct. There is gas within intrahepatic bile ducts. Previous biliary ductal dilatation has essentially resolved since the insertion of the stent. The liver is within normal limits in size and configuration, and no focal liver lesion or increased uptake of activity is noted. There is some gas within the gallbladder lumen, suspected related to the presence of the stent. There is diffusely increased uptake of activity by the gallbladder wall, which may be related to the relatively recent placement of the biliary ductal stent (which was not present on the outside CT scan on 04/24/2023), but with gallbladder inflammation/infection (cholecystitis) not excluded. There are two focal areas of increased uptake associated with the pancreas. One has relatively ill-defined margin, and measures approximately 2.5 x 3 cm, and involves the anterior pancreatic head, extending to abut the common bile duct stent and medial wall of the duodenum, and with increased uptake of activity and SUV of 10.9. The other is partially exophytic, involving the posterior aspect of the pancreatic neck, with diameter of approximately 1.4 cm, and SUV of 12.5. The spleen is normal size. There is adrenal fullness. No abnormal adrenal uptake is noted. There is activity associated with the and GI tracts, suspected physiologic, but presence of activity limits assessment of these structures. No retroperitoneal nor pelvic lymphadenopathy is noted. There is increased activity within the uterine fundus centrally, with SUV of 23.8, raising suspicion for endometrial carcinoma. There is small nonspecific inguinal lymph nodes, without abnormal uptake or activity. There are postsurgical changes at the left groin. No abnormal bony uptake of activity suspicious for bony metastatic disease is noted. The CT images were obtained using a smart or auto mA system for dose reduction. Ordering Provider: Frankie Sarabia FINAL REPORT Dictated: 05/11/2023 2:22 pm Tyrone Jean-Claude Llanes Signed (Electronic Signature): 05/11/2023 2:22 pm Signed by: Jean-Claude Hansen M.D. Transcribed by: WES Technologist: TIM Technical Comments Dose (mCi F-18 FDG): 13.3 Imagi (more content not included)... [facility] RAD - MISCon 05-11-2023 RAD - MISC [id number] F [facility] RAD - MISC [id number] [id number]#1.00TIF F [facility] Consent for Treatmenton Consent for Treatment [id number] F [facility] Physician Orderon 05-10-2023 Physician Order [id number]#[id number] F [facility] Physician Orderon 05-09-2023 Physician Order [id number]#1.00TIF F [facility] Population [facility] 05-09-19 Population Health Case Information Case Priority: None Programs: -- Referral Source: [place] Referral Reason: Care coordination Case Type: High Risk Adult Risk Score: -- Case Status: Enrolled (May 01, 2023) Date Assigned: May 01, 2023 Assigned By: Tom Merlos Date Enrolled: May 01, 2023 Assigned Primary Personnel: Tom Merlos Assigned Secondary Personnel: -- Case Physician: Esau Riddle MD Ongoing Allergic eczema Anemia BMI 38.0-38.9,adult Cardiomyopathy due to hypertension, without heart failure Chronic obstructive pulmonary disease Congestive heart failure Controlled type 2 diabetes mellitus with other skin complication, without long-term current use of insulin Diabetic retinopathy Hospital discharge follow-up HTN (hypertension) Hx of cerebral infarction Hypercholesterolemia Infection of great toe Obesity due to excess calories Pancreatic cancer Smoker Historical No qualifying data Procedure/Surgical History Cardiac catheterization, Surgery. Home Medications aspirin 81 mg Oral EC Tab, 81 mg= 1 tab(s), Oral, Daily atorvastatin 20 mg Tab, 20 mg= 1 tab(s), Oral, Bedtime, 3 refills clopidogrel 75 mg Tab, 75 mg= 1 tab(s), Oral, Daily, 3 refills Freestyle Brady 2 Flash Glucose Monitoring 14 Day System ([place]), See Instructions Freestyle Brady 2 Flash Glucose Monitoring 14 Day System (Sensor), See Instructions, 1 refills furosemide 40 mg Tab, 40 mg= 1 tab(s), Oral, Daily, 3 refills glipiZIDE 10 mg Tab, 10 mg= 1 tab(s), Oral, BID, 3 refills HumaLOG KwikPen 100 units/mL injectable solution, See Instructions Lantus Solostar Pen 100 units/mL subcutaneous solution, See Instructions lisinopril 30 mg Tab, 30 mg= 1 tab(s), Oral, Daily, 3 refills MetFORMIN (Eqv-Glucophage XR) 500 mg oral tablet, extended release, See Instructions metoprolol tartrate 100 mg Tab, 100 mg= 1 tab(s), Oral, BID, 3 refills pantoprazole, 40 mg spironolactone 50 mg Tab, 50 mg= 1 tab(s), Oral, Daily, 3 refills sure comfort pen needle 30 gauge x 5/16, See Instructions Trulicity Pen 0.75 mg/0.5 mL subcutaneous solution, 0.75 mg, SubCutaneous, qWeek, 2 refills Allergies albuterol (Severe) sulfa drugs (Mild) Social History Alcohol - Denies Alcohol Use, 08/17/2022 Household alcohol concerns: No., 08/17/2022 Home/Environment Lives with Children., 06/17/2022 Substance Abuse - Denies Substance Abuse, 08/17/2022 Current, 01/13/2023 Household substance abuse concerns: No., 08/17/2022 Tobacco - High Risk, 08/17/2022 4 or less cigarettes(less than 1/4 pack)/day in last 30 days Tobacco Use:. Never Smokeless Tobacco Use:. Cigarettes, Household tobacco concerns: No. Yes, 05/05/2023 Family History Acute myocardial infarction: Father. COPD: Mother. Diabetes mellitus type 1: Father. 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 Patient gave verbal permission for sister Tessy to call office and obtain info as needed. Patient has a procedure 05/10, she can't recall what it is for. States she has a heart cath on Monday 05/15 and is scheduled for sx to remove her pancreas on 06/12/23 with Edwar Mcnair. Patient does report some GI upset and discomfort, notes it s better since d/c. Patient states this is not pain but discomfort. Patient states she avoids foods known to exacerbate shooting pain and bloat. States she is eating well and drinking well. Patient states she is sleeping okay, states her mattress is too firm. States her son purchased her a new one back in august for her birthday and they have been trying to find a foam cover to make it more comfortable for pt. Patient denies any urinary system or bowel issues at this time. Denies need for medication refills. POV with PCP 06/06/23 at 1415. Patient denies any further issues or concerns. 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 Created By: Tom Merlos [facility] CBC panel Auto (Bld)on 05-08 Erythrocyte distribution width (RBC) [Ratio] 18.6 % High 11.5-14.5 [facility] Comment on above: Performed By: #### 5 8410-2 #### SEKOU ORDONEZ ([id number]) [facility] ([facility]) [address] [place] [address] Hematocrit (Bld) [Volume fraction] 29.4 % Low 36.0-46.0 [facility] Comment on above: Performed By: #### 5 8410-2 #### SEKOU ORDONEZ ([id number]) [facility] ([facility]) [address] [place] [address] Hemoglobin (Bld) [Mass/Vol] 8.6 g/dL Low 12.0-16.0 [facility] Comment on above: Performed By: #### 5 8410-2 #### SEKOU ORDONEZ ([id number]) [facility] ([facility]) [address] [place] [address] MCH (RBC) [Entitic mass] 25.8 pg Low 26.0-34.0 [facility] Comment on above: Performed By: #### 5 8410-2 #### SEKOU ORDONEZ ([id number]) [facility] ([facility]) [address] [place] [address] MCHC (RBC) [Mass/Vol] 29.3 g/dL Low 32.0-36.0 [facility] Comment on above: Performed By: #### 5 8410-2 #### SEKOU ORDONEZ ([id number]) [facility] ([facility]) [address] [place] [address] MCV (RBC) [Entitic vol] 88 fL Normal 80-100 [facility] Comment on above: Performed By: #### 5 8410-2 #### SEKOU ORDONEZ ([id number]) [facility] ([facility]) [address] [place] [address] 64225 Nucleated RBC/100 WBC (Bld) [Ratio] 0.0 /100 WBCs Normal 0.0-0.0 [facility] Comment on above: Performed By: #### 5 8410-2 #### SEKOU ORDONEZ ([id number]) [facility] ([facility]) [address] [place] [address] Platelets (Bld) [#/Vol] 385 x10*3/uL Normal 150-450 [facility] Comment on above: Performed By: #### 5 8410-2 #### SEKOU ORDONEZ ([id number]) [facility] ([facility]) [address] [place] [address] RBC (Bld) [#/Vol] 3.33 x10*6/uL Low 4.00-5.20 [facility] Comment on above: Performed By: #### 5 8410-2 #### SEKOU ORDONEZ ([id number]) [facility] ([facility]) [address] [place] [address] 37324 WBC (Bld) [#/Vol] 11.9 x10*3/uL High 4.4-11.3 [facility] Comment on above: Performed By: #### 5 8410-2 #### SEKOU ORDONEZ ([id number]) [facility] ([facility]) [address] [place] [address] 10880 Cancer Ag 19-9on 05-08-2023 Cancer Ag 19-9 Qn 3150.37 [arb'U]/mL High <35.00 [facility] Comment on above: Order Comment: CA 19 -9 testing is performed by chemiluminescent immunoassay using the Siemens Avidia. Values obtained with different analytic methods cannot be used interchangeably. Serum CA 19-9 measurement is indicated for the serial measurement of CA 19-9 to aid in the management of patients diagnosed with cancers of the exocrine pancreas. This assay is not intended for screening or diagnosis of cancer in the general population. The results must not be used as the sole means for clinical diagnosis or patient management decisions. Patients known to be genotypically negative for the Mario blood group antigens will be unable to produce CA 19-9 antigen, even in malignant tissue. Phenotyping for the presence of the Mario antigen may be insufficient to detect true Mario antigen negative individuals. The results must not be used as the sole means for clinical diagnosis or patient management decisions. Performed By: #### 2 4108-3 #### FUENTES Velázquez ([id number]) [facility] ([facility]) [address] [place] [address] Comprehensive metabolic 2000 panelon 05-08-2023 Albumin BCP dye [Mass/Vol] 3.2 g/dL Low 3.4-5.0 [facility] Comment on above: Performed By: #### 2 4323-8 #### BRYCEIBLUIZ ORDONEZ ([id number]) [facility] ([facility]) [address] [place] [address] 68887 ALP [Catalytic activity/Vol] 190 U/L High 33-136 [facility] Comment on above: Performed By: #### 2 4323-8 #### ANAIBELILAW GUERRERODEIRDRE MABEL ([id number]) [facility] ([facility]) [address] [place] [address] 18274 ALT With P-5'-P [Catalytic activity/Vol] 17 U/L Normal 7-45 [facility] Comment on above: Result Comment: Olivia ents treated with Sulfasalazine may generate falsely decreased results for ALT. Performed By: #### 2 4323-8 #### ANAIBELILAW GUERRERODEIRDRE MABEL ([id number]) [facility] ([facility]) [address] [place] [address] 49946 Anion gap [Moles/Vol] 15 mmol/L Normal 10-20 [facility] Comment on above: Performed By: #### 2 4323-8 #### BRYCEIBELILAW ORDONEZ ([id number]) [facility] ([facility]) [address] [place] [address] 40892 AST With P-5'-P [Catalytic activity/Vol] 14 U/L Normal 9-39 [facility] Comment on above: Performed By: #### 2 4323-8 #### ANAIBELILAW DEIRDRE MABEL ([id number]) [facility] ([facility]) [address] [place] [address] 93766 Bilirubin [Mass/Vol] 1.3 mg/dL High 0.0-1.2 [facility] Comment on above: Performed By: #### 2 4323-8 #### ANAIBELILAW GUERRERODEIRDRE MABEL ([id number]) [facility] ([facility]) [address] [place] [address] Calcium [Mass/Vol] 8.4 mg/dL Low 8.6-10.3 [facility] Comment on above: Performed By: #### 2 4323-8 #### SEKOU ORDONEZ ([id number]) [facility] ([facility]) [address] [place] [address] 77247 Chloride [Moles/Vol] 102 mmol/L Normal 98-107 [facility] Comment on above: Performed By: #### 2 4323-8 #### BRYCEIBLUIZ ORDONEZ ([id number]) [facility] ([facility]) [address] [place] [address] 97267 CO2 [Moles/Vol] 25 mmol/L Normal 21-32 [facility] Comment on above: Performed By: #### 2 4323-8 #### SEKOU ORDONEZ ([id number]) [facility] ([facility]) [address] [place] [address] 73973 Creatinine [Mass/Vol] 0.76 mg/dL Normal 0.50-1.05 [facility] Comment on above: Performed By: #### 2 4323-8 #### SEKOU ORDONEZ ([id number]) [facility] ([facility]) [address] [place] [address] 71530 Glomerular filtration rate/1.73 sq M.predicted 88 mL/min/1.73m*2 Normal >60 [facility] Comment on above: Result Comment: Calc ulations of estimated GFR are performed using the 2020 CKD-EPI Study Refit equation without the race variable for the IDMS-Traceable creatinine methods. https://jasn.asnjournals.org/content//ASN.474308 6901 Performed By: #### 2 4323-8 #### SEKOU ORDONEZ ([id number]) [facility] ([facility]) [address] [place] [address] 78505 Glucose [Mass/Vol] 115 mg/dL High 74-99 [facility] Comment on above: Performed By: #### 2 4323-8 #### SEKOU ORDONEZ ([id number]) [facility] ([facility]) [address] [place] [address] 42806 Potassium [Moles/Vol] 4.4 mmol/L Normal 3.5-5.3 [facility] Comment on above: Performed By: #### 2 4323-8 #### SEKOU ORDONEZ ([id number]) [facility] ([facility]) [address] [place] [address] 17850 Protein [Mass/Vol] 6.1 g/dL Low 6.4-8.2 [facility] Comment on above: Performed By: #### 2 4323-8 #### SEKOU ORDONEZ ([id number]) [facility] ([facility]) [address] [place] [address] 36113 Sodium [Moles/Vol] 138 mmol/L Normal 136-145 [facility] Comment on above: Performed By: #### 2 4323-8 #### SEKOU ORDONEZ ([id number]) [facility] ([facility]) [address] [place] [address] 83381 Urea nitrogen [Mass/Vol] 14 mg/dL Normal 6-23 [facility] Comment on above: Performed By: #### 2 4323-8 #### SEKOU ORDONEZ ([id number]) [facility] ([facility]) [address] [place] [address] 64830 HbA1c (Bld) [Mass fraction]o n 05-08-2023 Average glucose Estimated from glycated hemoglobin (Bld) [Mass/Vol] 163 mg/dL Normal Not Established [facility] Comment on above: Order Comment: Diagn osis of Diabetes-Adults Non-Diabetic: < or = 5.6% Increased risk for developing diabetes: 5.7-6.4% Diagnostic of diabetes: > or = 6.5% Monitoring of Diabetes Age (y)....................... Therapeutic Goal (%) Adults: >18.........................<7.0 Pediatrics: 13-18...................<7.5 Pediatrics: 7-12....................<8.0 Pediatrics: 0-6..................... 7.5-8.5 [place] [employer]. Diabetes Care 33(S1), Apr 2009 Performed By: #### 4 548-4 #### FUENTES Velázquez ([id number]) [facility] ([facility]) [address] [place] [address] Heart and Vascular Office/Cl in Noteon 05-08-2023 Heart and Vascular Office/Clinic Note Chief Complaint here for test results History of Present Illness Karuna Nelson is a 62-year-old female who presents today for a follow-up evaluation of hypertension, hyperlipidemia, diabetes, peripheral arterial disease, and recent [facility]. She is accompanied by an adult female. The patient expresses discomfort with the stress test, describing it as extremely weird. She underwent a toe amputation. She did not receive anesthesia. She never had surgery in the past. The patient recently received a cancer diagnosis and had an appointment with her oncologist on 05/04/2023. A PET scan revealed a mass on the top of her pancreas. Following a syncopal episode at home, during which she hit her head on a table, she was taken to [facility] and later transferred to [facility]. Initial considerations at the hospital were that a gallstone might have caused the incident, but subsequent examinations ruled out the presence of a gallstone in her duct. The patient has a nodule on her lung. A PET scan is scheduled for 05/10/2023. A biopsy has been recommended since it was not initially performed at [facility]. The patient is scheduled to see her oncology doctor in 2 weeks from 05/04/2023, during which a treatment plan, involving surgery, potential chemotherapy, and radiation, will be outlined based on the biopsy results. A catheterization procedure was performed on the patient's legs to address vascular concerns. The procedure successfully opened up the vessels, ensuring improved blood flow to the feet. Review of Systems Constitutional: no fever, no sweats, no weakness Skin: no rash, no lesions, no bruising/petechiae ENMT: no sore throat, no congestion, no hoarseness Respiratory: no shortness of breath, no cough, no orthopnea, no wheezing Cardiovascular: no chest pain, no palpitations, no edema Gastrointestinal: no nausea, no vomiting, no diarrhea, no GI bleeding Genitourinary: no anuria/oliguria no hematuria Musculoskeletal: no back pain, no trauma Neurologic: no headache, no dizziness, no numbness, no weakness Psychiatric: no sleeping problems, no irritability, no anxiety/depression. Heme/Lymph: no bleeding tendency, no bruising tendency Allergy/Immunologic: no recurrent infections, no impaired immunity Additional ROS info: Except as noted in the above Review of Systems and in the History of Present Illness all other systems have been reviewed and are negative or noncontributory Physical Exam Vitals & Measurements HR: 62(Peripheral) BP: 138/62 SpO2: 98% HT: 62 in HT: 157 cm WT: 89.7 kg WT: 197.34 lb BMI: 36.39 General: alert, no acute distress Skin: warm, dry intact Head: atraumatic, normocephalic Neck: trachea midline, no JVD, no bruit Eye: normal conjunctiva, sclera clear ENMT: oral mucosa moist Cardiovascular: regular rate and rhythm, no murmur, normal peripheral perfusion Respiratory: lungs CTA, respirations non labored Chest wall: no deformity. Gastrointestinal: soft, non-distended, no tenderness, no guarding. Back: no tenderness, normal ROM, normal alignment. Extremities: no edema, no deformity, no trauma Neurological: oriented x 4, LOC appropriate for age, sensation equal & normal bilaterally, speech normal Psychiatric: cooperative, affect appropriate for age, normal judgement, normal psychiatric thoughts. Assessment/Plan 1. Abnormal stress test (R94.39: Abnormal result of other cardiovascular function study) Karuna Nelson has multiple cardiovascular risk factors, including hypertension, hyperlipidemia, diabetes, and peripheral arterial disease. She recently underwent preoperative stress test which was abnormal. She proceeded with surgery without general anesthesia. She has a pancreatic mass that requires further evaluation, possibly involving surgery. If surgery becomes necessary, a subsequent heart catheterization may be required. Currently asymptomatic, it is deemed unnecessary to perform the catheterization at this time. The plan is for her to follow up with oncology, and further decisions will be made based on their recommendations. Follow up in 2 months. Portions of this record may have been created with voice recognition artificial intelligence software, specifically [employer], [employer] and or [employer]. Substitutions may have occurred due to the inherent limitations of voice recognition and artificial intelligence software. ATTESTATION: Documentation services were performed after patient or guardian consented to allow [employer] to record this visit. PATY adaptive physical education specialist and provider reviewed before signing. PATY: Salo Mclean Follow-up No qualifying data available Problem List/Past Medical History Ongoing Allergic eczema Anemia BMI 38.0-38.9,adult Cardiomyopathy due to hypertension, without heart failure Chronic obstructive pulmonary disease Congestive heart failure Controlled type 2 diabetes (more content not included)... Normal [facility] Comment on above: Result Comment: Elec tronically Signed By: Rik MISTRY, Felix Vann\.br\Date and Time Signed: 05/08/23 10:11 EST\.br\Electronically Co-Signed By: Salo Mclean\.br\Date and Time Co-Signed: 05/05/23 15:28 EST Hemoglobin A1c/Hemoglobin.to cami 05-08-2023 HbA1c (Bld) [Mass fraction] 7.3 % High see below [facility] Comment on above: Order Comment: Diagn osis of Diabetes-Adults Non-Diabetic: < or = 5.6% Increased risk for developing diabetes: 5.7-6.4% Diagnostic of diabetes: > or = 6.5% Monitoring of Diabetes Age (y)....................... Therapeutic Goal (%) Adults: >18.........................<7.0 Pediatrics: 13-18...................<7.5 Pediatrics: 7-12....................<8.0 Pediatrics: 0-6..................... 7.5-8.5 [employer]. Diabetes Care 33(S1), Apr 2009 Performed By: #### 4 548-4 #### FUENTES Velázquez ([id number]) [facility] ([facility]) [address] [id number] Outside Radiologyon 05-08-19 24 Outside Radiology [id number] 2019 [id number]#1.00TIF F Normal [facility] PT and aPTT panel Coag (PPP) on 05-08-2023 aPTT Coag (PPP) [Time] 30 s Normal 27-38 [facility] Comment on above: Order Comment: The A PTT is no longer used for monitoring Unfractionated Heparin Therapy. For monitoring Heparin Therapy, use the Heparin Assay. Performed By: #### 3 4529-8 #### SEKOU ORDONEZ ([id number]) [facility] ([facility]) [address] [place] [address] INR Coag (PPP) [Relative time] 1.0 Normal 0.9-1.1 [facility] Comment on above: Order Comment: The A PTT is no longer used for monitoring Unfractionated Heparin Therapy. For monitoring Heparin Therapy, use the Heparin Assay. Performed By: #### 3 4529-8 #### SEKOU ORDONEZ ([id number]) [facility] ([facility]) [address] [place] [address] PT Coag (PPP) [Time] 11.7 s Normal 9.8-12.8 [facility] Comment on above: Order Comment: The A PTT is no longer used for monitoring Unfractionated Heparin Therapy. For monitoring Heparin Therapy, use the Heparin Assay. Performed By: #### 3 4529-8 #### SEKOU ORDONEZ ([id number]) [facility] ([facility]) [address] [place] [address] 23445 Physician Orderon 05-08-2023 Physician Order [id number] [id number]#1.00TI FF Normal [facility] RAD - MISCon 05-08-2023 RAD - MISC [id number] [id number]#1.00TI FF Normal [facility] Stress EKG Tracingson 2023 Stress EKG Tracings [id number] [id number]#1.00TIF F Normal [facility] CA 19-9on 05-05-2023 Cancer Ag 19-9 Qn 1332 unit/mL High 0-[address] [facility] [address] [facility] Comment on above: Result Comment: Resu lts confirmed on dilution. [employer] Electrochemiluminescence Immunoassay (ECLIA) Values obtained with different assay methods or kits cannot be used interchangeably. Results cannot be interpreted as absolute evidence of the presence or absence of malignant disease. Performed at: [facility] [address] [id number] PhD Pavel Vasquez Performed By: #### 2 601442, 0793076, 11641579, 1783108, 72050600, 9065261, 9731411, 4937401, 3049952, 5792302, 81277182, 7091553, 55331013 ####[facility] [address] [place] [address] Erythropoiet Lvlon Erythropoietin (EPO) Qn 307.2 mIU/mL High 2.6-18.5 [facility] Comment on above: Result Comment: [employer] DxI 800 Immunoassay System Values obtained with different assay methods or kits cannot be used interchangeably. Results cannot be interpreted as absolute evidence of the presence or absence of malignant disease. Performed at: [facility] [address], [place] [id number] PhD Pavel Vasquez Performed By: #### 2 807341, 3431629, 31058127, 9426955, 50215568, 1685340, 0452651, 0914014, 4953660, 8296099, 93199572, 6939744, 82137311 ####[facility] [address] [place] [address] NM Myocardial Spect Rest/Str ess 1 Dayon 05-05-2023 NM Myocardial Spect Rest/Stress 1 Day Exam Date/Time: 05/04/2023 15:59 EST Reason for Exam: I25.10;CAD Coronary artery disease Report INDICATION: Coronary artery disease. STUDY: After informed consent was obtained, the patient was injected with 9.0 mCi of Cardiolite for rest SPECT imaging. The patient then underwent Lexiscan infusion per protocol receiving an additional 29.2 mCi of Cardiolite for stress SPECT imaging. RESTING EKG: The patient has normal sinus rhythm, incomplete right bundle branch block, low voltage in the precordial and limb leads, possible old inferior wall myocardial infarction. LEXISCAN EKG: The patient underwent Lexiscan infusion per protocol. During infusion, the patient's heart rate remained about the same. The patient had rare premature atrial contraction noted. No anginal symptoms noted. No other arrhythmias noted. IMAGING: The patient appears to have normal left ventricular size and function with a left ventricular ejection fraction of 67%. The patient has normal left ventricular end-diastolic volume. TID is normal at 1.15. Rest perfusion images demonstrates adequate uptake in all regional herrera. There is subtle baseline anterior hypoperfusion at rest which slightly worsens with infusion to a total of 11%. CONCLUSIONS: 1. Abnormal adequate Lexiscan/myocardial perfusion imaging. There is subtle baseline anterior ischemia at rest which worsens slightly with infusion to a total of 11%. 2. Normal left ventricular size and function with a left ventricular ejection fraction of 67%. 3. TID is normal at 1.15. 4. Recommend clinical correlation or alternative mode of testing if clinically indicated. 5. This is an intermediate risk study based upon the subtle anterior ischemia. FINAL REPORT Signed (Electronic Signature): 05/05/2023 9:36 am Signed by: Teodoro GARCÍA MD Transcribed by: gurvinder Technologist: TIM Technical Comments Rest Dose (mCi Tc99m Cardiolite): 9 Stress Dose (mCi Tc99M Cardiolite): 29.2 Normal [facility] CBC w/ Auto Diffon 4 Basophil Absolute 0.1 E9/L Normal 0.0-0.2 [facility] Comment on above: Performed By: #### 2 340236, 1733885, 19757252, 7675413, 72769612, 5644802, 4382784, 3088757, 6611536, 1038015, 72814652, 3853570, 42368747 ####[facility] [address] [place] [address] Basophils/100 WBC (Bld) 1.0 % Normal 0.0-2.0 [facility] Comment on above: Performed By: #### 2 489149, 8666616, 35436837, 1329824, 06564978, 1335191, 6528984, 3702055, 7982402, 5412052, 07001417, 6444052, 29642906 ####[address] [place] [address] Eos Absolute 0.3 E9/L Normal 0.0-0.5 [facility] Comment on above: Performed By: #### 2 483319, 8886432, 98289640, 6975244, 23159135, 5231212, 0735333, 4710623, 4473947, 6652283, 17817638, 6493492, 21664855 ####[address] [place] [address] Eosinophils/100 WBC (Bld) 3.3 % Normal 0.0-8.0 [facility] Comment on above: Performed By: #### 2 041378, 1574817, 70233460, 3883333, 96480508, 8606735, 3389760, 9914113, 9729015, 8851104, 87327826, 6603116, 68437728 ####[address] [place] [address] Erythrocyte distribution width (RBC) [Ratio] 19.6 % High 10.9-14.2 [facility] Comment on above: Performed By: #### 2 791412, 4834390, 45197498, 5710589, 50314908, 8045340, 6226544, 3644536, 2037454, 9599327, 06003210, 4383474, 58850608 ####[facility] [address] [place] [address] Hematocrit (Bld) [Volume fraction] 26.0 % Low 34.0-46.0 [facility] Comment on above: Performed By: #### 2 402936, 9667536, 71030306, 0667541, 47851518, 0183138, 2220968, 6310523, 5884349, 0355934, 73111133, 6476140, 92116330 ####[facility] [address] [place] [address] Hemoglobin (Bld) [Mass/Vol] 8.2 g/dL Low 12.0-16.0 [facility] Comment on above: Performed By: #### 2 551156, 5203850, 04249648, 9329555, 89131512, 8805991, 2803481, 6602195, 0507828, 8453763, 32517623, 1007387, 84637645 ####[facility] [address] [place] [address] Lymph Absolute 2.2 E9/L Normal 1.0-4.0 [facility] Comment on above: Performed By: #### 2 070584, 9888399, 64930729, 1089038, 42144003, 5290068, 6833118, 3988168, 8213541, 9549202, 75042216, 7922096, 50482665 ####[facility] [address] [place] [address] Lymphocytes/100 WBC (Bld) 21.3 % Normal 14.0-50.0 [facility] Comment on above: Performed By: #### 2 104229, 5342206, 27355711, 8212014, 37874469, 4023101, 0492577, 8061248, 3676426, 0355138, 83451043, 3687014, 61894938 ####[facility] [address] [place] [address] MCH (RBC) [Entitic mass] 26.8 pg Low 27.0-34.0 [facility] Comment on above: Performed By: #### 2 469450, 6768377, 46148936, 6079287, 14304357, 5613130, 4088321, 5397920, 9252194, 4518014, 08516235, 4080866, 81464808 ####[facility] [address] [place] [address] MCHC (RBC) [Mass/Vol] 31.7 g/dL Normal 31.4-36.0 [facility] Comment on above: Performed By: #### 2 159277, 9705501, 09236964, 0300099, 80125739, 3319769, 9230929, 7265955, 8365290, 1897259, 51109115, 8863857, 78300979 ####[facility] [address] [place] [address] MCV (RBC) [Entitic vol] 84.7 fL Normal 80.0-100.0 [facility] Comment on above: Performed By: #### 2 307727, 2929354, 56135217, 9901864, 40298864, 0931362, 8143856, 1682845, 1765098, 3254641, 57757061, 4875982, 45151084 ####[facility] [address] [place] [address] Menard Absolute 0.6 E9/L Normal 0.2-1.0 [facility] Comment on above: Performed By: #### 2 136083, 4537519, 88069801, 1302767, 12501396, 7333119, 5272228, 3222219, 2865685, 5250899, 52954651, 1989480, 65235305 ####[facility] [address] [place] [address] Monocytes/100 WBC (Bld) 5.9 % Normal 4.0-14.0 [facility] Comment on above: Performed By: #### 2 411451, 2711356, 90453442, 9982929, 14224240, 0352967, 8621503, 0604806, 8422822, 1643916, 21323556, 3362871, 32182725 ####[address] [place] [address] Neutro Absolute 7.0 E9/L Normal 2.0-7.5 [facility] Comment on above: Performed By: #### 2 357152, 3437582, 03703730, 3958437, 54245093, 4448992, 6411618, 1051516, 9401162, 2899843, 97843913, 8637237, 40696401 ####[address] [address] Neutro Auto 68.5 % Normal 36.0-75.0 [facility] Comment on above: Performed By: #### 2 443002, 2022550, 02465623, 6109600, 04356370, 0707166, 9367419, 2797270, 9572993, 0563118, 16180157, 4417203, 78818204 ####[address] [address] Platelet 305.0 E9/L Normal 150.0-500.0 [facility] Comment on above: Performed By: #### 2 648521, 4900689, 11486112, 4997351, 20966074, 3519669, 5140559, 6311428, 1332446, 5937923, 21541695, 1137945, 95779765 ####[address] [address] Platelet mean volume (Bld) [Entitic vol] 9.0 fL Normal 6.4-10.8 [facility] Comment on above: Performed By: #### 2 361436, 5547180, 85000668, 7806423, 45110514, 2473386, 5194016, 5543077, 6227030, 8677084, 53219867, 2049695, 49174316 ####[address] [address] RBC 3.0 E12/L Low 4.3-5.9 [facility] Comment on above: Performed By: #### 2 540837, 2267358, 75418447, 3113093, 72136607, 5405788, 6316810, 5500867, 8433108, 3828201, 88861906, 4583527, 48829427 ####[facility] [address] [place] [address] WBC 10.2 E9/L Normal 4.0-11.0 [facility] Comment on above: Performed By: #### 2 162233, 5302570, 01256995, 8514307, 03686352, 3879763, 4570308, 3883634, 2899278, 3899429, 37289527, 5044481, 19889100 ####[facility] [address] [place] [address] CEAon 05-04-2023 CEA 11.3 ng/mL Invalid Interpretation Code [facility] Comment on above: Result Comment: 'NON -SMOKER < 2.5' 'SMOKER < 5.0' The concentration of CEA in a given specimen determined by different manufacturers can vary due to differences in assay methods and reagent specificity. Values obtained with different assay methods cannot be used interchangeably. The methodology used to perform this test was chemiluminescence using [employer] Access CEA reagent. Performed By: #### 2 477066, 5328916, 10066179, 2113101, 61701098, 9641679, 8986696, 7419200, 9268579, 3250352, 89876055, 3337317, 23865240 ####[facility] [address] [place] [address] CHEMISTRYOrdered By: SYSTEM SYSTEM on 05-04-2023 Albumin [Mass/Vol] 3.1 g/dL Low 3.3 - 5.0 gm/dL Remisol Chem Albumin/Globulin [Mass ratio] 1.0 {ratio} Low 1.1 - 2.2 Remisol Chem Alk Phos 251 [iU]/d High 21 - 98 Int._Unit/L Remisol Chem ALT 23 [iU]/d Normal 6 - 46 Int._Unit/L Remisol Chem Anion gap [Moles/Vol] 12 mmol/L Normal 6 - 16 mEq/L R emisol Chem AST 13 [iU]/d Normal 5 - 43 Int._Unit/L Remisol Chem Bili Total 1.4 mg/dL High 0.0 - 1.1 mg/dL Remisol Chem Calcium [Mass/Vol] 8.4 mg/dL Low 8.9 - 11. 1 mg/dL Remisol Chem CEA 11.3 ng/mL Invalid Interpretation Code Rem[facility] Chem Comment on above: Result Comment: 'NON -SMOKER < 2.5' 'SMOKER < 5.0' Interpretive Data: T he concentration of CEA in a given specimen determined by different manufacturers can vary due to differences in assay methods and reagent specificity. Values obtained with different assay methods cannot be used interchangeably. The methodology used to perform this test was chemiluminescence using [employer] Access CEA reagent. Chloride [Moles/Vol] 105 mmol/L Normal 101 - 1 11 mmol/L Remisol Chem CO2 [Moles/Vol] 27 mmol/L Normal 21 - 31 mmol/L [facility] Cobalamin (Vitamin B12) [Mass/Vol] 409 pg/mL Normal 50 - 1500 pg/mL Rem[facility] Chem Creatinine [Mass/Vol] 0.8 mg/dL Normal 0.5 - 1.3 mg/dL Rem[facility] Chem eGFR 82 mL/min/1.73 m2 Normal >=59mL/min /1 .73 m2 [facility] Ferritin Lvl 36 ng/mL Normal 11 - 307 ng/mL [facility] Chem Folate Lvl 9.9 ng/mL Normal >=6.7ng/mL Rem[facility] Chem Globulin (S) [Mass/Vol] 3.0 g/dL Normal 1.4 - 4.0 gm/dL [facility] Glucose [Mass/Vol] 212 mg/dL High 55 - 199 mg/dL Remisol Chem Iron [Mass/Vol] 26 ug/dL Low 35 - 153 mcg/dL Remisol Chem Iron Sat 8 % Low 20 - 50 % Remisol Chem Potassium [Moles/Vol] 4.1 mmol/L Normal 3.5 - 5.3 mmol/L Remisol Chem Protein [Mass/Vol] 6.1 g/dL Normal 6.0 - 7.8 gm/dL [facility] Chem Sodium [Moles/Vol] 140 mmol/L Normal 135 - 145 mmol/L Rem[facility] Chem TIBC 333 ug/dL Normal 250 - 400 mcg/dL Remisol Chem Transferrin [Mass/Vol] 238 mg/dL Normal 200 - 370 mg/dL Rem[facility] Chem Urea nitrogen [Mass/Vol] 18 mg/dL Normal 5 - 21 mg/dL Remisol Chem Urea nitrogen/Creatinine [Mass ratio] 22 mg/mg High 10 - 20 Remisol Chem CMPon 05-04-2023 Albumin [Mass/Vol] 3.1 g/dL Low 3.3-5.0 [facility] Comment on above: Performed By: #### 2 722592, 7976691, 85868462, 6216786, 10563587, 2757204, 1861637, 2703200, 3358665, 9249083, 16888927, 9289555, 41818371 ####[facility] [address] [place] [address] Albumin/Globulin [Mass ratio] 1.0 {ratio} Low 1.1-2.2 [facility] Comment on above: Performed By: #### 2 023179, 8168986, 88125850, 3650876, 82177440, 9697760, 8801359, 3170906, 1686422, 0598614, 18528799, 9915835, 56376734 ####[facility] [address] [place] [address] Alk Phos 251 Int._Unit/L High 21-98 [facility] Comment on above: Performed By: #### 2 084243, 6220843, 61109813, 4530609, 36134444, 3001762, 6021581, 1016553, 0838246, 9156297, 04827838, 3826792, 68021394 ####[facility] [address] [place] [address] ALT 23 Int._Unit/L Normal 6-46 [facility] Comment on above: Performed By: #### 2 919556, 5606849, 27931571, 0264823, 27118934, 7545709, 7032477, 9977686, 7518502, 9521269, 52175550, 2340385, 44519743 ####[facility] [address] [place] [address] Anion gap [Moles/Vol] 12 mmol/L Normal 6-16 [facility] Comment on above: Performed By: #### 2 332961, 0459564, 60361863, 3717758, 87787409, 4541356, 6734983, 4136503, 6795585, 3157473, 01612033, 6664060, 90581187 ####[facility] [address] [place] [address] AST 13 Int._Unit/L Normal 5-43 [facility] Comment on above: Performed By: #### 2 168601, 3217694, 68218866, 0097824, 99511994, 2593011, 1649232, 9130388, 5585370, 7343231, 07462311, 6933116, 69565982 ####[facility] [address] [place] [address] Bili Total 1.4 mg/dL High 0.0-1.1 [facility] Comment on above: Performed By: #### 2 026605, 8308905, 01265650, 1701135, 72069498, 3061021, 1277909, 7477919, 8033222, 1264323, 59581585, 9708074, 14211814 ####[facility] [address] [place] [address] BUN/Creat Ratio 22 No Units High 10-20 [facility] Comment on above: Performed By: #### 2 879136, 3141668, 23448356, 2250283, 32147686, 0651904, 3298263, 3004404, 0445190, 0515163, 67347717, 4326341, 17155104 ####[facility] [address] [place] [address] Calcium [Mass/Vol] 8.4 mg/dL Low 8.9-11.1 [facility] Comment on above: Performed By: #### 2 047454, 5046503, 64310651, 5957474, 17611938, 6160641, 7435278, 4265028, 9866401, 4006250, 66161184, 0444835, 21118489 ####[facility] [address] [place] [address] Chloride [Moles/Vol] 105 mmol/L Normal 101-111 [facility] Comment on above: Performed By: #### 2 301531, 8495234, 81465394, 3456937, 28803291, 0879785, 5960544, 8601663, 8987913, 7894112, 29668826, 9341455, 89782867 ####[facility] [address] [place] [address] CO2 [Moles/Vol] 27 mmol/L Normal 21-31 [facility] Comment on above: Performed By: #### 2 944112, 4097219, 94964618, 9636278, 23974386, 3977522, 9762644, 8568080, 0867503, 9349821, 12703749, 1207168, 24754125 ####[facility] [address] [place] [address] Creatinine [Mass/Vol] 0.8 mg/dL Normal 0.5-1.3 [facility] Comment on above: Performed By: #### 2 786392, 2779859, 92559807, 8304013, 58196644, 5034334, 2453994, 1498264, 2200405, 8117846, 16666112, 3472266, 76139991 ####[facility] [address] [place] [address] Globulin (S) [Mass/Vol] 3.0 g/dL Normal 1.4-4.0 [facility] Comment on above: Performed By: #### 2 374777, 0707016, 98662886, 1825836, 13294914, 2712688, 2882463, 3927031, 7498559, 0216692, 25613817, 1682914, 98983377 ####[facility] [address] [place] [address] Glucose [Mass/Vol] 212 mg/dL High 55-199 [facility] Comment on above: Performed By: #### 2 266524, 1243008, 63151728, 7624324, 48197448, 2242332, 4580174, 6392801, 2764740, 8675862, 82749660, 8092357, 41453444 ####[facility] [address] [place] [address] Potassium [Moles/Vol] 4.1 mmol/L Normal 3.5-5.3 [facility] Comment on above: Performed By: #### 2 268551, 9035636, 40334803, 9993303, 70112751, 6649004, 6097406, 1377533, 0433303, 2753156, 69222541, 0872703, 85623523 ####[facility] [address] [place] [address] Protein [Mass/Vol] 6.1 g/dL Normal 6.0-7.8 [facility] Comment on above: Performed By: #### 2 610687, 2808940, 19299173, 2463369, 01258929, 2321249, 5445413, 7346224, 8225458, 5088223, 45342320, 1164877, 41097267 ####[facility] [address] [place] [address] Sodium [Moles/Vol] 140 mmol/L Normal 135-145 [facility] Comment on above: Performed By: #### 2 732385, 6018884, 47783648, 1711533, 13704202, 9572760, 2348218, 1598040, 0951828, 1406303, 92777168, 7728952, 23020319 ####[facility] [address] [place] [address] Urea nitrogen [Mass/Vol] 18 mg/dL Normal 5-21 [facility] Comment on above: Performed By: #### 2 977384, 7732212, 71305408, 6042285, 37473682, 5999775, 8209416, 7235890, 7870393, 3234392, 55707033, 9068007, 47716770 ####[facility] [address] [place] [address] Consenton 05-04-2023 Consent [id number]#1.00TI FF Normal [facility] Consent for Treatmenton Consent for Treatment [id number]#1.00TI FF Normal [facility] Consent for Treatment [id number]#1.00TIF F Normal [facility] Consent for Treatment [id number]#1.00TIF F Normal [facility] Ferritinon 05-04-2023 Ferritin Lvl 36 ng/mL Normal 11-307 [facility] Comment on above: Performed By: #### 2 495333, 8036264, 22912221, 1608131, 37431949, 7658668, 3098468, 1244148, 0106858, 6596128, 59902787, 2834465, 78231868 ####[facility] [address] [place] [address] Folateon 05-04-2023 Folate Lvl 9.9 ng/mL Normal >=6.7 [facility] Comment on above: Performed By: #### 2 162238, 8034643, 67235604, 2241818, 03282632, 6586864, 8352852, 7510082, 3260564, 4613103, 87507433, 4114162, 13112863 ####[facility] [address] [place] [address] HEMATOLOGYOrdered By: SYSTEM SYSTEM on 05-04-2023 Basophil Absolute 0.1 E9/L Normal 0.0 - 0.2 E9/L Remisol Heme Basophils/100 WBC (Bld) 1.0 % Normal 0.0 - 2.0 % Remisol Heme Eos Absolute 0.3 E9/L Normal 0.0 - 0.5 E9/L Remisol Heme Eosinophils/100 WBC (Bld) 3.3 % Normal 0.0 - 8.0 % Remisol Heme Erythrocyte distribution width (RBC) [Ratio] 19.6 % High 10.9 - 14.2 % Remisol Heme Hematocrit (Bld) [Volume fraction] 26.0 % Low 34.0 - 46.0 % Remisol Heme Hemoglobin (Bld) [Mass/Vol] 8.2 g/dL Low 12.0 - 16.0 gm/dL Remisol Heme Lymph Absolute 2.2 E9/L Normal 1.0 - 4.0 E9/L Remisol Heme Lymphocytes/100 WBC (Bld) 21.3 % Normal 14.0 - 50.0 % Remisol Heme MCH (RBC) [Entitic mass] 26.8 pg Low 27.0 - 34.0 pg Remisol Heme MCHC (RBC) [Mass/Vol] 31.7 g/dL Normal 31.4 - 36.0 gm/dL Remisol Heme MCV (RBC) [Entitic vol] 84.7 fL Normal 80.0 - 100.0 fL Remisol Heme Menard Absolute 0.6 E9/L Normal 0.2 - 1.0 E9/L Remisol Heme Monocytes/100 WBC (Bld) 5.9 % Normal 4.0 - 14.0 % Remisol Heme Neutro Absolute 7.0 E9/L Normal 2.0 - 7.5 E9/L Remisol Heme Neutro Auto 68.5 % Normal 36.0 - 75.0 % Remisol Heme Platelet 305.0 E9/L Normal 150.0 - 500.0 E9/L Remisol Heme Platelet mean volume (Bld) [Entitic vol] 9.0 fL Normal 6.4 - 10.8 fL Remisol Heme RBC 3.0 E12/L Low 4.3 - 5.9 E12/L Remisol Heme WBC 10.2 E9/L Normal 4.0 - 11.0 E9/L Remisol Heme HEMATOLOGYOrdered By: Placido Elmore on 05-04-2023 ESR (Bld) [Velocity] 87 mm/h High 0 - 34 mm/hr FT MC HemeAutoSS Ironon 05-04-2023 Iron 26 microgram/dL Low 35-153 [facility] Comment on above: Performed By: #### 2 [id number], 3394797, 27177653, 2124579, 64971073, 3010023, 5777203, 0721838, 5363844, 8201038, 53122142, 7985622, 29131336 ####[facility] [address] [place] [address] Iron Saturationon 05-04-2023 Iron Sat 8 % Low 20-50 [facility] Comment on above: Performed By: #### 2 229739, 7308127, 75827192, 0866219, 43219363, 1614195, 7344915, 2064481, 0038818, 3478447, 22734105, 9212634, 20357114 ####[facility] [address] [place] [address] TIBC 333 microgram/dL Normal 250-400 [facility] Comment on above: Performed By: #### 2 866708, 8070104, 19655003, 7858571, 03452977, 0905118, 4734949, 8065515, 1409521, 0903259, 56121881, 1404869, 01631534 ####[facility] [address] [place] [address] ONC - Otheron 05-04-2023 ONC - Other [id number]#[id number] FF Normal [facility] Oncology Noteon 05-04-2023 Oncology Note 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 I accompanied Dr. Sarabia in room. Medical history reviewed. NCCN guidelines reviewed. Treatment Plan: refer to surgeon/UH, IR lung biopsy, PET scan 05/10, send NGS testing, send Invitae testing Follow-Up Appointment Info/Referrals: 2 weeks Resources Offered: Patient is a occasional current smoker - importance of quitting smoking expressed. Patient has my contact information. Discussed the distress thermometer of 8, mostly for emotional support. We discussed Dr. Baker and social workers - patient will think about it. Distress thermometer emailed to social services designee. Normal [facility] Comment on above: Result Comment: Elec tronically Signed By: Abhijeet MACKENZIE, Teri Mike.br\Date and Time Signed: 05/04/23 16:58 EST Physician Orderon 05-04-2023 Physician Order [id number]#[id number] F Normal [facility] Physician Order [id number]#1.00TIF F Normal [facility] Sed Rate Automatedon 024 ESR (Bld) [Velocity] 87 mm/h High 0-[address] [facility] Comment on above: Performed By: #### 2 158119, 7686529, 84196914, 9457971, 26721266, 6566254, 8572217, 3793248, 8384252, 8552830, 06706748, 5752578, 24512811 ####[facility] [address] [place] [address] Transferrinon 05-04-2023 Transferrin [Mass/Vol] 238 mg/dL Normal 200-370 [facility] Comment on above: Performed By: #### 2 282055, 8801406, 80945860, 2022640, 15431307, 5093526, 2347428, 3711599, 5626507, 9263044, 03306815, 3935399, 99217551 ####[facility] [address] [place] [address] Vit B12on 05-04-2023 Cobalamin (Vitamin B12) [Mass/Vol] 409 pg/mL Normal 50-1500 [facility] Comment on above: Performed By: #### 2 504757, 2313523, 59512427, 1042198, 85356918, 7008448, 2531235, 6131881, 1710314, 9042963, 56204735, 4250736, 66824993 ####[facility] [address] [place] [address] eGFRon 05-04-2023 eGFR 82 mL/min/1.73 m2 Normal >=59 [facility] Comment on above: Order Comment: Order added by Discern Expert. Performed By: #### 2 467877, 2061505, 92213561, 1587333, 82879330, 5781857, 6746088, 2999034, 7677967, 7235680, 72885319, 5126620, 31460910 ####[facility] [address] [place] [address] ED Note-Physicianon 05-03-19 ED Note-Physician [id number]#[id number] F Normal [facility] Family Medicine Office/Clini c Noteon 05-03-2023 Family Medicine Office/Clinic Note Chief Complaint F/U hospital stay HPI Staff Karuna is a 62 year old female presenting for TCM follow up. Patient is present with 2 sisters. TCM: Hospital: [facility] (records requested 05/01/23) Admission date: 04/22/23 Discharge date: 04/28/23 Symptoms the patient presented with: Pt had a syncopal episode at home Current concerns: pt was at [facility] ER 04/22/23 CT head/cervical and ABD done [facility] called patient yesterday to inform her she has pancreatic cancer with possible involvement of liver and gallbladder. History of Present Illness Karuna Nelson is a 62-year-old female who presents today for a hospital discharge follow-up. She is accompanied by her sister. The patient reports that there was CT evidence of possible pancreatitis at [facility]. The sister reports that the patient had a syncope episode and fell 2 days prior to her falling. They noticed that she exhibits slight jaundice as well. She mentions that she had seen the patient a week earlier, at which time the patient appeared well. She noticed something was wrong when she came to see her on , 04/27/2023. The patient mentions that the medical staff suspected a gallbladder issue where they had to insert a stent. She mentions she was told that cancer staging is estimated to be between advanced stage 1 and early 2. She has been eating well and gained some weight back since being discharged. She notes receiving 3 units of blood transfusion due to a decrease in hemoglobin level, which dropped below 7 g/dL, caused by an ulcer. The sister mentions that the patient's hemoglobin was 8.1 g/dL when she was discharged. Her sisters have histories of kidney and lung cancer. She does not drive and relies on her sister for transportation. She is scheduled for a stress test on , 05/04/2023, and an appointment with Dr. Jolly on 05/05/2023. She cannot use the treadmill for the stress test due to the big toe amputation. She is not aware that it is a nuclear stress test. She agrees to go to [facility] for her cancer treatment. She mentions that she was sent to [facility] in [place]. Review of Systems PHQ Score Initial Depression Screen Score: 0 SCORE Physical Exam Vitals & Measurements HR: 60(Peripheral) BP: 138/60 SpO2: 99% HT: 62 in HT: 157 cm WT: 89.7 kg WT: 197.34 lb BMI: 36.39 General: alert, no acute distress ENMT: oral mucosa moist, no pharyngeal erythema or exudate Cardiovascular: regular rate and rhythm, normal peripheral perfusion Respiratory: Diminished breath sounds bilaterally Extremities: no deformity, no trauma Neurological: oriented x 4, LOC appropriate for age, CN II-XII intact, motor strength equal & normal bilaterally, speech normal Skin: Slight yellowing of the skin Assessment/Plan Total time spent preparing for the encounter, evaluating and assessing the patient, documenting the visit, and ordering appropriate follow-up work was 40 minutes. 1. Hospital discharge follow-up (Z09: Encounter for follow-up examination after completed treatment for conditions other than malignant neoplasm) I have requested records from [facility] to see what exactly was done and what the biopsy results showed. We will refer to oncology and get the patient scheduled as quickly as possible. 2. Pancreatic cancer (C25.9: Malignant neoplasm of pancreas, unspecified) We will send to oncology. Discussed in detail with the patient. Patient has no concerns at this time other than trying to see what her next steps and plan are. We will reach out to the oncologist. I am waiting for a call back to discuss with him further. 3. Congestive heart failure (I50.9: Heart failure, unspecified) No concerns at this time. We will continue to monitor. 4. Controlled type 2 diabetes mellitus with other skin complication, without long-term current use of insulin (E11.9: Type 2 diabetes mellitus without complications) Again, we will monitor this while the patient is going through chemotherapy and not being able to eat. Patient has gained some weight and then concerned for influx in blood sugars, so we will be monitoring this. 5. Chronic obstructive pulmonary disease (J44.9: Chronic obstructive pulmonary disease, unspecified) Stable at this time. No concerns. 6. BMI 36.0-36.9,adult (Z68.36: Body mass index [BMI] 36.0-36.9, adult) BMI education given We will see the patient back in 1 month. Portions of this record may have been created with voice recognition artificial intelligence software, specifically [employer], [employer] and or [employer]. Substitutions may have occurred due to the inherent limitations of voice recognition and artificial intelligence software. Documentation services were performed after patient or guardian consented to allow [employer] to record this visit. PATY adaptive physical education specialist and provider reviewed before signing. PATY: Mackenzie Cantu/Pasted by: Mima Davis Follow (more content not included)... [facility] Comment on above: Result Comment: Elec tronically Signed By: Esau Riddle MD\.br\Date and Time Signed: 05/03/23 15:31 EST\.br\Electronically Co-Signed By: Mima Davis\.br\Date and Time Co-Signed: 05/02/23 14:56 EST Outside [facility] Correspo ndenceon 05-03-2023 Outside [facility] Correspondence [id number]#1.00TIF F [facility] Outside [facility] Correspondence [id number]#1.00TIF F [facility] Auth for Release of Medical Recordson 05-02-2023 Auth for Release of Medical Records [id number]#1.00TIF F [facility] Outside Labson 05-02-2023 Outside Labs [id number]#1.00TI FF Normal [facility] Outside Pathology Reporton 0 05-02-2023 Outside Pathology Report [id number]#1.00TI FF [facility] Provider Letteron 05-02-2023 Provider Letter (Inserted Image. Esperanza ble to display) May 02, 2023 KARUNA NELSON [address] [place] [phone] : 1960 To Whom It May Concern, Per Dr. Yuni Lawler medical assessment Corie Yung has many medical problems that prevent her from performing gainful employment, as such she is medically disabled and he believes these problems are permanent. Date of Illness: From: _ To: _ May Return to Work On: Restrictions: _ Comments: _ Sincerely, Family Medicine [address] [address] This note does not belong to this patient, wrong chart [facility] Comment on above: Other Comment: this does not belong in this chart wrong patient Auth for Release of Medical Recordson 05-01-2023 Auth for Release of Medical Records [id number]#1.00TIF F [facility] Case Information Case Priority: None Programs: -- Referral Source: [facility] Referral Reason: Care coordination Case Type: High Risk Adult Risk Score: -- Case Status: Enrolled (May 01, 2023) Date Assigned: May 01, 2023 Assigned By: Tom Merlos Date Enrolled: May 01, 2023 Assigned Primary Personnel: Tom Merlos Assigned Secondary Personnel: -- Case Physician: Esau Riddle MD Ongoing Allergic eczema Anemia BMI 38.0-38.9,adult Cardiomyopathy due to hypertension, without heart failure Chronic obstructive pulmonary disease Congestive heart failure Controlled type 2 diabetes mellitus with other skin complication, without long-term current use of insulin Diabetic retinopathy HTN (hypertension) Hx of cerebral infarction Hypercholesterolemia Infection of great toe Obesity due to excess calories Smoker Historical No qualifying data Procedure/Surgical History Cardiac catheterization, Surgery. Home Medications aspirin 81 mg Oral EC Tab, 81 mg= 1 tab(s), Oral, Daily atorvastatin 20 mg Tab, 20 mg= 1 tab(s), Oral, Bedtime, 3 refills clopidogrel 75 mg Tab, 75 mg= 1 tab(s), Oral, Daily, 3 refills Freestyle Brady 2 Flash Glucose Monitoring 14 Day System ([place]), See Instructions Freestyle Brady 2 Flash Glucose Monitoring 14 Day System (Sensor), See Instructions, 1 refills furosemide 40 mg Tab, 40 mg= 1 tab(s), Oral, Daily, 3 refills glipiZIDE 10 mg Tab, 10 mg= 1 tab(s), Oral, BID, 3 refills HumaLOG KwikPen 100 units/mL injectable solution, See Instructions Lantus Solostar Pen 100 units/mL subcutaneous solution, See Instructions lisinopril 30 mg Tab, 30 mg= 1 tab(s), Oral, Daily, 3 refills MetFORMIN (Eqv-Glucophage XR) 500 mg oral tablet, extended release, See Instructions metoprolol tartrate 100 mg Tab, 100 mg= 1 tab(s), Oral, BID, 3 refills spironolactone 50 mg Tab, 50 mg= 1 tab(s), Oral, Daily, 3 refills sure comfort pen needle 30 gauge x 5/16, See Instructions Trulicity Pen 0.75 mg/0.5 mL subcutaneous solution, 0.75 mg, SubCutaneous, qWeek, 2 refills Allergies albuterol (Severe) sulfa drugs (Mild) Social History Alcohol - Denies Alcohol Use, 08/17/2022 Household alcohol concerns: No., 08/17/2022 Home/Environment Lives with Children., 06/17/2022 Substance Abuse - Denies Substance Abuse, 08/17/2022 Current, 01/13/2023 Household substance abuse concerns: No., 08/17/2022 Tobacco - High Risk, 08/17/2022 10 or more cigarettes (1/2 pack or more)/day in last 30 days Tobacco Use:. Never Smokeless Tobacco Use:. Cigarettes, Yes, 03/30/2023 Family History Acute myocardial infarction: Father. COPD: Mother. Diabetes mellitus type 1: Father. Screenings and Assessments 05/01/23 11:40:00 Result Name Value Comment Phone Call Monitoring Consent Agreed to continue call Phone Verification Patient Information Full name, street address and date of verified Program Enrollment Provides verbal consent for enrollment Goals and Interventions Care Plan Progress Note Admit Date: 04/23/23 Date of Discharge: 04/28/23 Follow-up appointment scheduled? yes, 05/02 with PCP for [facility] follow up at 1030 Did you understand your discharge instructions? yes Are you able to follow them? yes Did you receive new medications? yes, pantoprazole 40 mg BID, hold ASA and Plavix x 5 days then resume Have you filled the Rx's? yes Are you taking them as prescribed? yes Are you having difficulty eating or swallowing your pills? no Are you having any stomach upset, diarrhea or constipation? none How are you sleeping? good Are you having any pain? no, 'as long as I avoid certain foods' Do you have everything you need at home to care for yourself? yes Do you have Home Health? no Called patient for initial [facility] program call. Readmission risk score unavailable. Reviewed with patient dx of peptic ulcer and biliary stent placement. Patient had an EGD/EUS/ERCP with Stent placement on 04/25. Reviewed purpose and side effects of new medications. Patient states she is 'not doing so good.' States she just received a call to discuss her biopsy results and states the pancreatic mass is positive for cancer. They arranged for oncology and GI follow up in [place] (she can not recall these dates at this time.) Patient states her sister is on her way over to be with her at this time and she's not far away. Patient does states she slept well. Patient is eating and drinking well, notes she avoids greasy foods. Discussed other food choices to avoid. Patient denies any bowel or urinary system issues. Reviewed the following appointments with patient; Dr. Riddle follow up 05/02 at 1030, medication reconciliation to be done at . Patient denies any further questions or concerns. CN explained [facility] services and gave CN contact number. *No d/c summary available, above information provided by patient. (more content not included)... Normal [facility] Comp Metabolic Profon 2023 Albumin [Mass/Vol] 3.0 g/dL Low 3.5-5.2 [facility] Comment on above: Performed By: #### C P, LIP #### [facility] [address] [place] [address] Middle School Coach: Juan Joe MD Alkaline Phos 617 U/L High 35-104 [facility] Comment on above: Performed By: #### C P, LIP #### [facility] [address] [place] [address] Middle School Coach: Juan Joe MD ALT [Catalytic activity/Vol] 71 U/L High 5-33 [facility] Comment on above: Performed By: #### C P, LIP #### [facility] [facility] [address] Middle School Coach: Juan Joe MD Anion gap [Moles/Vol] 10 mmol/L Normal 9-17 [facility] Comment on above: Performed By: #### C P, LIP #### [facility] [facility] [place] [address] Middle School Coach: Juan Joe MD AST [Catalytic activity/Vol] 69 U/L High <32 [facility] Comment on above: Performed By: #### C P, LIP #### [facility] [facility] [place] [address] Middle School Coach: Juan Joe MD Bilirubin [Mass/Vol] 1.9 mg/dL High 0.3-1.2 [facility] Comment on above: Performed By: #### C P, LIP #### [facility] [place] [address] Middle School Coach: Juan Joe MD BUN/CRE Ratio 36 High 9-20 [facility] Comment on above: Performed By: #### C P, LIP #### [facility] [address] [place] [address] Middle School Coach: Juan Joe MD Calcium [Mass/Vol] 7.7 mg/dL Low 8.6-10.4 [facility] Comment on above: Performed By: #### C P, LIP #### [facility] [address] [facility] [place] [address] Middle School Coach: Juan Joe MD Chloride [Moles/Vol] 105 mmol/L Normal 98-107 [facility] Comment on above: Performed By: #### C P, LIP #### [facility] [address] [facility] [place] [address] Middle School Coach: Juan Joe MD CO2 [Moles/Vol] 21 mmol/L Normal 20-31 [facility] Comment on above: Performed By: #### C P, LIP #### [facility] [address] [facility] [place] [address] Middle School Coach: Juan Joe MD Creatinine [Mass/Vol] 0.7 mg/dL Normal 0.5-0.9 [facility] Comment on above: Performed By: #### C P, LIP #### [facility] [place] [address] Middle School Coach: Juan Joe MD GFR/1.73 sq M.predicted among non-blacks MDRD (S/P/Bld) [Vol rate/Area] mL/min/{1.73_m2} Normal >60 [facility] Comment on above: Result Comment: These results are not intended for use in patients <18 years of age. eGFR results are calculated without a race factor using the 2020 CKD-EPI equation. Careful clinical correlation is recommended, particularly when comparing to results calculated using previous equations. The CKD-EPI equation is less accurate in patients with extremes of muscle mass, extra-renal metabolism of creatine, excessive creatine ingestion, or following therapy that affects renal tubular secretion. Performed By: #### C P, LIP #### [facility] [address] [facility] [place] [address] Middle School Coach: Juan Joe MD Glucose [Mass/Vol] 391 mg/dL High 70-99 [facility] Comment on above: Performed By: #### C P, LIP #### [facility] [place] [address] Middle School Coach: Juan Joe MD Potassium [Moles/Vol] 4.5 mmol/L Normal 3.7-5.3 [facility] Comment on above: Performed By: #### C P, LIP #### [facility] [address] [place] [address]. [place] [address] Middle School Coach: Juan Joe MD Protein [Mass/Vol] 6.1 g/dL Low 6.4-8.3 [facility] Comment on above: Performed By: #### C P, LIP #### [facility] [address] [place] [address]. [place] [address] Middle School Coach: Juan Joe MD Sodium [Moles/Vol] 136 mmol/L Normal 135-144 [facility] Comment on above: Performed By: #### C P, LIP #### [facility] [facility] [place] [address] Middle School Coach: Juan Joe MD Urea nitrogen [Mass/Vol] 25 mg/dL High 8-23 [facility] Comment on above: Performed By: #### C P, LIP #### [facility] [facility] [place] [address] Middle School Coach: Juan Joe MD Comprehensive Metabolic Pane [facility] 04-28-2023 Albumin [Mass/Vol] 3.0 g/dL Low 3.5 - 5.2 g/dL [facility] ALP [Catalytic activity/Vol] 617 U/L High 35 - 104 U/L [facility] ALT [Catalytic activity/Vol] 71 U/L High 5 - 33 U/L [facility] Anion gap [Moles/Vol] 10 mmol/L 9 - 17 mmol/L [facility] AST [Catalytic activity/Vol] 69 U/L High NINF - 32 U/L [facility] Bilirubin [Mass/Vol] 1.9 mg/dL High 0.3 - 1 .2 mg/dL [facility] Calcium [Mass/Vol] 7.7 mg/dL Low 8.6 - 10. 4 mg/dL [facility] Chloride [Moles/Vol] 105 mmol/L 98 - 10 7 mmol/L [facility] CO2 [Moles/Vol] 21 mmol/L 20 - 31 mmol/L [facility] Creatinine [Mass/Vol] 0.7 mg/dL 0.5 - 0.9 mg/dL [facility] GFR/1.73 sq M.predicted MDRD (S/P/Bld) [Vol rate/Area] - PINF [facility] Comment on above: These results are not intended for use in patients <18 years of age. eGFR results are calculated without a race factor using the 2020 CKD-EPI equation. Careful clinical correlation is recommended, particularly when comparing to results calculated using previous equations. The CKD-EPI equation is less accurate in patients with extremes of muscle mass, extra-renal metabolism of creatine, excessive creatine ingestion, or following therapy that affects renal tubular secretion. Glucose [Mass/Vol] 391 mg/dL High 70 - 99 mg/dL [facility] Interpretation and review of laboratory results Abnormal [facility] Potassium [Moles/Vol] 4.5 mmol/L 3.7 - 5.3 mmol/L [facility] Protein [Mass/Vol] 6.1 g/dL Low 6.4 - 8.3 g/dL [facility] Sodium [Moles/Vol] 136 mmol/L 135 - 144 mmol/L [facility] Urea nitrogen [Mass/Vol] 25 mg/dL High 8 - 23 mg/dL [facility] Urea nitrogen/Creatinine [Mass ratio] 36 mg/mg High 9 - 20 [facility] Hemoglobin and Hematocriton 04-28-2023 Hematocrit (Bld) [Volume fraction] 26.8 % Low 36.3 - 47.1 % [facility] Hemoglobin (Bld) [Mass/Vol] 8.3 g/dL Low 11.9 - 15.1 g/dL [facility] Interpretation and review of laboratory results Abnormal [facility] Hematocrit (Bld) [Volume fraction] 24.4 % Low 36.3 - 47.1 % [facility] Hemoglobin (Bld) [Mass/Vol] 7.7 g/dL Low 11.9 - 15.1 g/dL [facility] Interpretation and review of laboratory results Abnormal [facility] Hgb/Hcton 04-28-2023 Hematocrit (Bld) [Volume fraction] 26.8 % Low 36.3-47.1 [facility] Comment on above: Performed By: #### H H, BMPX, LIP, LIVP #### [facility] [address] [place] [address] [employer] Coach: Juan Joe MD Hemoglobin (Bld) [Mass/Vol] 8.3 g/dL Low 11.9-15.1 [facility] Comment on above: Performed By: #### H H, BMPX, LIP, LIVP #### [facility] [address] [place] [address] [employer] Coach: Juan Joe MD Hematocrit (Bld) [Volume fraction] 24.4 % Low 36.3-47.1 [facility] Comment on above: Performed By: #### H H, BMPX, LIP, LIVP #### [facility] [place] [address] [employer] Coach: Juan Joe MD Hemoglobin (Bld) [Mass/Vol] 7.7 g/dL Low 11.9-15.1 [facility] Comment on above: Performed By: #### H H, BMPX, LIP, LIVP #### [facility] [address] [place], [place] [id number] [employer] Coach: Juan Joe MD Lipaseon 04-28-2023 Lipase [Catalytic activity/Vol] 1382 U/L High 13-60 [facility] Comment on above: Performed By: #### C P, LIP #### [facility] [address] [place], [place] [id number] [employer] Coach: Juan Joe MD Interpretation and review of laboratory results Abnormal [facility] Lipase [Catalytic activity/Vol] 1382 U/L High 13 - 60 U/L [facility] No Panel Informationon 04-28 Component Leukocyte Reduced Re d Cell [facility] Crossmatch [facility] Dispense Status Blood Bank TRANSFUSED [facility] Transfusion Status OK TO TRANSFUSE B ON [facility] Unit Divison 0 [facility] POC Glucose Fingerstickon Glucose [Mass/Vol] 315 mg/dL High 65 - 105 mg/dL [facility] Interpretation and review of laboratory results Abnormal [facility] Glucose [Mass/Vol] 365 mg/dL High 65 - 105 mg/dL [facility] Interpretation and review of laboratory results Abnormal [facility] SURGICAL PATHOLOGY REPORTon 04-28-2023 Surgical Pathology Report Path Number: [id number] -- Diagnosis -- A. DUODENUM, BIOPSY: -SMALL INTESTINAL MUCOSA WITH A NORMAL VILLOUS ARCHITECTURE AND NO FEATURES OF CELIAC DISEASE. B. STOMACH, BIOPSY: -GASTRIC ANTRAL MUCOSA WITH PATCHY MILD TO MODERATE CHRONIC INACTIVE GASTRITIS. -H. PYLORI STAIN IS NEGATIVE. CONTROL REACTS EXPECTED. C. ESOPHAGUS, Z-LINE, BIOPSY: -SQUAMOUS MUCOSA WITH ULCERATION. -PAS STAIN IS NEGATIVE FOR FUNGAL ORGANISMS. CONTROL REACTS EXPECTED. -NEGATIVE FOR CARCINOMA AND VIRAL INCLUSIONS. Aditya Good M.D. Electronically Signed Out naida04/27/2023 Clinical Information Pre-Op Diagnosis: OBSTRUCTIVE JAUNDICE; PANCREATIC MASS Operative Findings: DUODENAL BIOPSY; GASTRIC BIOPSY; IRREGULAR Z LINE BIOPSY; PANCREATIC HEAD MASS IN CYTOLYTE; LEFT ADRENAL GLAND MASS IN CYTOLYTE; BILIARY BRUSHING IN CYTOLYTE Operation Performed: EGD WITH BIOPSY ENDOSCOPIC ULTRASOUND WITH PATHOLOGY; ERCP ENDOSCOPIC RETROGRADE CHOLANGIOPANCREATOGRAPHY Source of Specimen A: DUODENAL BX B: GASTRIC BIOPSY C: IRREGULAR Z LINE BIOPSY Gross Description A. KARUNA NELSON, DUODENAL BIOPSY Received in formalin are two gilbert-white tissue fragments from 0.2 to 0.3 cm and are 0.5 x 0.2 x 0.1 cm in aggregate. Entirely 1cs. B. KARUNA NELSON, GASTRIC BIOPSY Received in formalin are two gilbert-white tissue fragments from 0.2 to 0.5 cm and are 0.7 x 0.2 x 0.1 cm in aggregate. Entirely 1cs. C. KARUNA NELSON, IRREGULAR Z-LINE BIOPSY Received in formalin is one gilbert-white tissue fragment, 0.5 x 0.2 x 0.2 cm. Entirely 1cs. nadir Arnold M.D./mj:04/26/2023 Microscopic Description A-C. Microscopic examination performed. H. pylori immunostain performed because no organisms apparent on H&E. C. Pancytokeratin immunostain was performed and reveals no infiltrating malignant epithelial cells. Control reacts as expected. Processing Lab: [address] [address] Interpretation Performed at [address] [address] SURGICAL PATHOLOGY CONSULTATION Patient Name: KARUNA NELSON [facility] Rec: [id number] [employer] [facility] ANATOMIC PATHOLOGY [address] [facility] [place], [place] [address] [employer] [facility] [employer] TYPE AND SCREENon 04-28-2023 ABO/Rh Positive [employer] Arm Band Number [id number] [facility] Blood Bank Sample Expiration 04/29/2023,2359 [facility] Blood product unit ID (Dose) [#] [id number] [facility] Blood product unit ID (Dose) [#] [id number] [facility] B12/Folate Panelon Cobalamin (Vitamin B12) [Mass/Vol] 966 pg/mL Normal 232-1245 [facility] Comment on above: Performed By: #### H H, BMPX, LIP, LIVP #### [facility] [address] [place] [address] [employer] Coach: Juan Joe MD Folic Acid 6.0 ng/mL Normal >4.8 [facility] Comment on above: Performed By: #### H H, BMPX, LIP, LIVP #### [facility] [address] [place] [address] [employer] Coach: Juan Joe MD Basic Metab w/rfx MGon 04-27 Anion gap [Moles/Vol] 13 mmol/L Normal 9-17 [facility] Comment on above: Performed By: #### H H, BMPX, LIP, LIVP #### [facility] [address] [place] [address] [employer] Coach: Juan Joe MD BUN/CRE Ratio 43 High 9-20 [facility] Comment on above: Performed By: #### H H, BMPX, LIP, LIVP #### [facility] [place] [address] [employer] Coach: Juan Joe MD Calcium [Mass/Vol] 7.7 mg/dL Low 8.6-10.4 [facility] Comment on above: Performed By: #### H H, BMPX, LIP, LIVP #### [facility] [address] [place] [address] [employer] Coach: Juan Joe MD Chloride [Moles/Vol] 101 mmol/L Normal 98-107 [facility] Comment on above: Performed By: #### H H, BMPX, LIP, LIVP #### [facility] [address] [place] [address] [employer] Coach: Juan Joe MD CO2 [Moles/Vol] 17 mmol/L Low 20-31 [facility] Comment on above: Performed By: #### H H, BMPX, LIP, LIVP #### [facility] [address] [facility] [place] [address] [employer] Coach: Juan Joe MD Creatinine [Mass/Vol] 0.9 mg/dL Normal 0.5-0.9 [facility] Comment on above: Result Comment: ICTE DMITRIY SPECIMEN Performed By: #### H H, BMPX, LIP, LIVP #### [facility] [address] [facility] [place] [address] [employer] Coach: Juan Joe MD GFR/1.73 sq M.predicted among non-blacks MDRD (S/P/Bld) [Vol rate/Area] mL/min/{1.73_m2} Normal >60 [facility] Comment on above: Result Comment: These results are not intended for use in patients <18 years of age. eGFR results are calculated without a race factor using the 2020 CKD-EPI equation. Careful clinical correlation is recommended, particularly when comparing to results calculated using previous equations. The CKD-EPI equation is less accurate in patients with extremes of muscle mass, extra-renal metabolism of creatine, excessive creatine ingestion, or following therapy that affects renal tubular secretion. Performed By: #### H H, BMPX, LIP, LIVP #### [facility] [address] [place] [address] [employer] Coach: Juan Joe MD Glucose [Mass/Vol] 352 mg/dL High 70-99 [facility] Comment on above: Performed By: #### H H, BMPX, LIP, LIVP #### [facility] [address] [place], [place] [id number] [employer] Coach: Juan Joe MD Potassium [Moles/Vol] 4.8 mmol/L Normal 3.7-5.3 [facility] Comment on above: Performed By: #### H H, BMPX, LIP, LIVP #### [facility] [address] [place], [place] [id number] [employer] Coach: Juan Joe MD Sodium [Moles/Vol] 131 mmol/L Low 135-144 [facility] Comment on above: Performed By: #### H H, BMPX, LIP, LIVP #### [facility] [address] [place], [place] [id number] [employer] Coach: Juan Joe MD Urea nitrogen [Mass/Vol] 39 mg/dL High 8-23 [facility] Comment on above: Performed By: #### H H, BMPX, LIP, LIVP #### [facility] [address] [facility] [place], [place] [id number] [employer] Coach: Juan Joe MD Basic Metabolic Panel w/ Ref kristen to on 04-27-2023 Anion gap [Moles/Vol] 13 mmol/L 9 - 17 mmol/L [facility] Calcium [Mass/Vol] 7.7 mg/dL Low 8.6 - 10. 4 mg/dL [facility] Chloride [Moles/Vol] 101 mmol/L 98 - 10 7 mmol/L [facility] CO2 [Moles/Vol] 17 mmol/L Low 20 - 31 mmol/L [facility] Creatinine [Mass/Vol] 0.9 mg/dL 0.5 - 0.9 mg/dL [facility] Comment on above: ICTERIC SPECIMEN GFR/1.73 sq M.predicted MDRD (S/P/Bld) [Vol rate/Area] - PINF [facility] Comment on above: These results are not intended for use in patients <18 years of age. eGFR results are calculated without a race factor using the 2020 CKD-EPI equation. Careful clinical correlation is recommended, particularly when comparing to results calculated using previous equations. The CKD-EPI equation is less accurate in patients with extremes of muscle mass, extra-renal metabolism of creatine, excessive creatine ingestion, or following therapy that affects renal tubular secretion. Glucose [Mass/Vol] 352 mg/dL High 70 - 99 mg/dL [facility] Interpretation and review of laboratory results Abnormal [facility] Potassium [Moles/Vol] 4.8 mmol/L 3.7 - 5.3 mmol/L [facility] Sodium [Moles/Vol] 131 mmol/L Low 135 - 144 mmol/L [facility] Urea nitrogen [Mass/Vol] 39 mg/dL High 8 - 23 mg/dL [facility] Urea nitrogen/Creatinine [Mass ratio] 43 mg/mg High 9 - 20 [facility] CA 19-9on 04-27-2023 CA 19-9 1114 U/mL High 0-35 [facility] Comment on above: Result Comment: The Tiffany ECLIA assay is used. Results obtained with different assay methods cannot be used interchangeably. Performed By: #### H H, BMPX, LIP, LIVP #### [facility] [address] [place] [address] [employer] Coach: Juan Joe MD CBC with Auto Differentialon 04-27-2023 Basophils (Bld) [#/Vol] 0.03 10*3/uL [facility] Basophils/100 WBC (Bld) 0 % 0 - 2 % [facility] Eosinophils (Bld) [#/Vol] 0.12 10*3/uL [facility] Eosinophils/100 WBC (Bld) 1 % 1 - 4 % [facility] Erythrocyte distribution width (RBC) [Ratio] 19.7 % High 11.8 - 14.4 % [facility] Hematocrit (Bld) [Volume fraction] 23.4 % Low 36.3 - 47.1 % [facility] Hemoglobin (Bld) [Mass/Vol] 7.6 g/dL Low 11.9 - 15.1 g/dL [facility] Immature granulocytes (Bld) [#/Vol] 0.33 10*3/uL High [facility] Immature granulocytes/100 WBC (Bld) 3 % High 0 [facility] Interpretation and review of laboratory results Abnormal [facility] Lymphocytes/100 WBC (Bld) 16 % Low 24 - 43 % [facility] Lymphocytes/100 WBC (Bld) 2.11 % [facility] MCH (RBC) [Entitic mass] 27.3 pg 25.2 - 33.5 pg [facility] MCHC (RBC) [Mass/Vol] 32.5 g/dL 28.4 - 34.8 g/dL [facility] MCV (RBC) [Entitic vol] 84.2 fL 82.6 - 102.9 fL [facility] Monocytes/100 WBC (Bld) 4 % 3 - 12 % [facility] Monocytes/100 WBC (Bld) 0.48 % [facility] Neutrophils/100 WBC (Bld) 77 % High 36 - 65 % [facility] Nucleated RBC/100 WBC (Bld) [Ratio] 1.1 % High 0.0 per 100 WBC [facility] Platelet mean volume (Bld) [Entitic vol] 11.1 fL 8.1 - 13.5 fL [facility] Platelets (Bld) [#/Vol] 245 10*3/uL [facility] RBC (Bld) [#/Vol] 2.78 10*6/uL Low 3.95 - 5.1 1 m/uL [facility] RBC (Bld) [#/Vol] ANISOCYTOSIS PRESENT [facility] Segmented neutrophils/100 WBC (Bld) 10.22 % High [facility] WBC other (Bld) [#/Vol] 13.3 High [facility] CBC with Diffon 04-27-2023 Abs. Basophil 0.03 k/uL Normal 0.00-0.20 [facility] Comment on above: Performed By: #### N STRAPPING MACHINE TENDER #### [address] [address] [employer] Coach: Mu Roberson MD Abs.Imm.Granulocyte 0.33 k/uL High 0.00-0.30 [facility] Comment on above: Performed By: #### N STRAPPING MACHINE TENDER #### [address] [address] [employer] Coach: Mu Roberson MD Abs.Neutrophil (Seg) 10.22 k/uL High 1.50-8.10 [facility] Comment on above: Performed By: #### N STRAPPING MACHINE TENDER #### [place] [address] [employer] Coach: Mu Roberson MD Basophils/100 WBC (Bld) 0 % Normal 0-2 [facility] Comment on above: Performed By: #### N STRAPPING MACHINE TENDER #### [place] [address] [employer] Coach: Mu Roberson MD Eosinophils (Bld) [#/Vol] 0.12 10*3/uL Normal 0.00-0.44 [facility] Comment on above: Performed By: #### N STRAPPING MACHINE TENDER #### [address] [address] [employer] Coach: Mu Roberson MD Eosinophils/100 WBC (Bld) 1 % Normal 1-4 [facility] Comment on above: Performed By: #### N STRAPPING MACHINE TENDER #### [address] [address] [employer] Coach: Mu Roberson MD Erythrocyte distribution width (RBC) [Ratio] 19.7 % High 11.8-14.4 [facility] Comment on above: Performed By: #### N STRAPPING MACHINE TENDER #### [address] [address] [employer] Coach: Mu Roberson MD Hematocrit (Bld) [Volume fraction] 23.4 % Low 36.3-47.1 [facility] Comment on above: Performed By: #### N STRAPPING MACHINE TENDER #### [address] [address] [employer] Coach: Mu Roberson MD Hemoglobin (Bld) [Mass/Vol] 7.6 g/dL Low 11.9-15.1 [facility] Comment on above: Performed By: #### N STRAPPING MACHINE TENDER #### [address] [address] [employer] Coach: Mu Roberson MD Immature granulocytes/100 WBC (Bld) 3 % High 0 [facility] Comment on above: Performed By: #### N STRAPPING MACHINE TENDER #### [address] [address] [employer] Coach: Mu Roberson MD Lymphocytes (Bld) [#/Vol] 2.11 10*3/uL Normal 1.10-3.70 [facility] Comment on above: Performed By: #### N STRAPPING MACHINE TENDER #### [address] [address] [employer] Coach: Mu Roberson MD Lymphocytes/100 WBC (Bld) 16 % Low 24-43 [facility] Comment on above: Performed By: #### N STRAPPING MACHINE TENDER #### [address] [address] [employer] Coach: Mu Roberson MD MCH (RBC) [Entitic mass] 27.3 pg Normal 25.2-33.5 [facility] Comment on above: Performed By: #### N STRAPPING MACHINE TENDER #### [address] [address] [employer] Coach: Mu Roberson MD MCHC (RBC) [Mass/Vol] 32.5 g/dL Normal 28.4-34.8 [facility] Comment on above: Performed By: #### N STRAPPING MACHINE TENDER #### [address] [address] [employer] Coach: Mu Roberson MD MCV (RBC) [Entitic vol] 84.2 fL Normal 82.6-102.9 [facility] Comment on above: Performed By: #### N STRAPPING MACHINE TENDER #### [address] [address] [employer] Coach: Mu Roberson MD Monocytes (Bld) [#/Vol] 0.48 10*3/uL Normal 0.10-1.20 [facility] Comment on above: Performed By: #### N STRAPPING MACHINE TENDER #### [address] [address] [employer] Coach: Mu Roberson MD Monocytes/100 WBC (Bld) 4 % Normal 3-12 [facility] Comment on above: Performed By: #### N STRAPPING MACHINE TENDER #### [address] [address] [employer] Coach: Mu Roberson MD Neutrophil (Seg) 77 % High 36-65 [facility] Comment on above: Performed By: #### N STRAPPING MACHINE TENDER #### [address] [address] [employer] Coach: Mu Roberson MD NRBC Automated 1.1 per 100 WBC High 0.0 [facility] Comment on above: Performed By: #### N STRAPPING MACHINE TENDER #### [address] [address] [employer] Coach: Mu Roberson MD Platelet mean volume (Bld) [Entitic vol] 11.1 fL Normal 8.1-13.5 [facility] Comment on above: Performed By: #### N STRAPPING MACHINE TENDER #### [address] [address] [employer] Coach: Mu Roberson MD Platelets (Bld) [#/Vol] 245 10*3/uL Normal 138-453 [facility] Comment on above: Performed By: #### N STRAPPING MACHINE TENDER #### [facility] [address] [place] [address] [employer] Coach: Mu Roberson MD RBC (Bld) [#/Vol] 2.78 10*6/uL Low 3.95-5.11 [facility] Comment on above: Performed By: #### N STRAPPING MACHINE TENDER #### [facility] [address] [place] [address] [employer] Coach: Mu Roberson MD RBC morphology finding Nom (Bld) ANISOCYTOSIS PRESENT Normal [facility] Comment on above: Performed By: #### N STRAPPING MACHINE TENDER #### [address] [address] [employer] Coach: Mu Roberson MD WBC (Bld) [#/Vol] 13.3 10*3/uL High 3.5-11.3 [facility] Comment on above: Performed By: #### N STRAPPING MACHINE TENDER #### [id number] [place] [address] Middle [employer] Coach: Mu Roberson MD Cancer Antigen 19-9on 2023 Cancer Ag 19-9 IA Qn 1114 U/mL High 0 - 35 U/mL [facility] Comment on above: The Tiffany ECLIA as say is used. Results obtained with different assay methods cannot be used interchangeably. Interpretation and review of laboratory results Abnormal [facility] Ferritinon 04-27-2023 Ferritin [Mass/Vol] 173 ng/mL High 13-150 [facility] Comment on above: Performed By: #### H H, BMPX, LIP, LIVP #### [facility] [address] [place], [place] [address] [employer] Coach: Juan Joe MD Hemoglobin and Hematocriton 04-27-2023 Hematocrit (Bld) [Volume fraction] 26.0 % Low 36.3 - 47.1 % [facility] Hemoglobin (Bld) [Mass/Vol] 8.3 g/dL Low 11.9 - 15.1 g/dL [facility] Interpretation and review of laboratory results Abnormal [facility] Hematocrit (Bld) [Volume fraction] 23.8 % Low 36.3 - 47.1 % [facility] Hemoglobin (Bld) [Mass/Vol] 7.8 g/dL Low 11.9 - 15.1 g/dL [facility] Interpretation and review of laboratory results Abnormal [facility] Hematocrit (Bld) [Volume fraction] 20.0 % Low 36.3 - 47.1 % [facility] Hemoglobin (Bld) [Mass/Vol] 6.5 g/dL Critically low 11.9 - 15.1 g/dL [facility] Interpretation and review of laboratory results Abnormal [facility] Hepatic Function Panelon Albumin [Mass/Vol] 2.8 g/dL Low 3.5 - 5.2 g/dL [facility] ALP [Catalytic activity/Vol] 596 U/L High 35 - 104 U/L [facility] ALT [Catalytic activity/Vol] 59 U/L High 5 - 33 U/L [facility] AST [Catalytic activity/Vol] 79 U/L High NINF - 32 U/L [facility] Bilirubin [Mass/Vol] 2.8 mg/dL High 0.3 - 1 .2 mg/dL [facility] Bilirubin.direct [Mass/Vol] 1.9 mg/dL High NINF - 0.3 mg/dL [facility] Bilirubin.indirect [Mass/Vol] 0.9 mg/dL 0.0 - 1.0 mg/dL [facility] Interpretation and review of laboratory results Abnormal [facility] Protein [Mass/Vol] 5.4 g/dL Low 6.4 - 8.3 g/dL [facility] Hgb/Hcton 04-27-2023 Hematocrit (Bld) [Volume fraction] 26.0 % Low 36.3-47.1 [facility] Comment on above: Performed By: #### H H #### [facility] [address] [place] [address] [employer] Coach: Juan Joe MD Hemoglobin (Bld) [Mass/Vol] 8.3 g/dL Low 11.9-15.1 [facility] Comment on above: Performed By: #### H H #### [facility] [address] [place] [address] [employer] Coach: Juan Joe MD Hematocrit (Bld) [Volume fraction] 23.8 % Low 36.3-47.1 [facility] Comment on above: Performed By: #### H H, BMPX, LIP, LIVP #### [facility] [address] [place] [address] [employer] Coach: Juan Joe MD Hemoglobin (Bld) [Mass/Vol] 7.8 g/dL Low 11.9-15.1 [facility] Comment on above: Performed By: #### H H, BMPX, LIP, LIVP #### [facility] [address] [place] [address] [employer] Coach: Juan Joe MD Hematocrit (Bld) [Volume fraction] 20.0 % Low 36.3-47.1 [facility] Comment on above: Performed By: #### H H #### [facility] [address] [place] [address] [employer] Coach: Juan Joe MD Hemoglobin (Bld) [Mass/Vol] 6.5 g/dL Critically low 11.9-15.1 [facility] Comment on above: Performed By: #### H H #### [facility] [address] [facility] [place] [address] [employer] Coach: Juan Joe MD IR ULTRASOUND GUIDANCE VASCU LAR ACCESSon 04-27-2023 IR ULTRASOUND GUIDANCE VASCULAR ACCESS Radiology exam is complete. No Radiologist dictation. Please follow up with ordering provider. Final result Normal [facility] Radiology exam is complete. No Radiologist dictation. Please follow up with ordering provider. [facility] RIS CONSOLIDATED Iron Binding Cap.on 04-27-19 24 % Fe Saturation 90 % High 20-55 [facility] Comment on above: Performed By: #### H H, BMPX, LIP, LIVP #### [facility] [address] [facility] [place] [address] [employer] Coach: Juan Joe MD Iron [Mass/Vol] 252 ug/dL High 37-145 [facility] Comment on above: Performed By: #### H H, BMPX, LIP, LIVP #### [facility] [address] [place] [place] [address] [employer] Coach: Juan Joe MD Total Fe Binding Cap 281 ug/dL Normal 250-450 [facility] Comment on above: Performed By: #### H H, BMPX, LIP, LIVP #### [facility] [address] [place] [address] Middle [employer] Coach: Juan Joe MD Unbound Fe Bind Cap 29 ug/dL Low 112-347 [facility] Comment on above: Performed By: #### H H, BMPX, LIP, LIVP #### [facility] [facility] [place] [address] [employer] Coach: Juan Joe MD Iron and TIBCon 04-27-2023 Interpretation and review of laboratory results Abnormal [facility] Iron [Mass/Vol] 252 ug/dL High 37 - 145 ug/dL [facility] Iron binding capacity [Mass/Vol] 281 ug/dL 250 - 450 ug/dL [facility] Iron saturation [Mass fraction] 90 % High 20 - 55 % [facility] UIBC 29 ug/dL Low 112 - 347 ug/dL [facility] Lipaseon 04-27-2023 Lipase [Catalytic activity/Vol] 1217 U/L High 13-60 [facility] Comment on above: Performed By: #### H H, BMPX, LIP, LIVP #### [facility] [address] [place] [address] [employer] Coach: Juan Joe MD Interpretation and review of laboratory results Abnormal [facility] Lipase [Catalytic activity/Vol] 1217 U/L High 13 - 60 U/L [facility] Liver Profileon 04-27-2023 Albumin [Mass/Vol] 2.8 g/dL Low 3.5-5.2 [facility] Comment on above: Performed By: #### H H, BMPX, LIP, LIVP #### [facility] [address] [place] [address] [employer] Coach: Juan Joe MD Alkaline Phos 596 U/L High 35-104 [facility] Comment on above: Performed By: #### H H, BMPX, LIP, LIVP #### [facility] [address] [place] [address] [employer] Coach: Juan Joe MD ALT [Catalytic activity/Vol] 59 U/L High 5-33 [facility] Comment on above: Performed By: #### H H, BMPX, LIP, LIVP #### [facility] [address] [place], [place] [id number] [employer] Coach: Juan Joe MD AST [Catalytic activity/Vol] 79 U/L High <32 [facility] Comment on above: Performed By: #### H H, BMPX, LIP, LIVP #### [facility] [address] [place] [address] Middle School Coach: Juan Joe MD Bilirubin [Mass/Vol] 2.8 mg/dL High 0.3-1.2 [facility] Comment on above: Performed By: #### H H, BMPX, LIP, LIVP #### [facility] [address] [place] [address] Middle School Coach: Juan Joe MD Bilirubin, Indirect 0.9 mg/dL Normal 0.0-1.0 [facility] Comment on above: Performed By: #### H H, BMPX, LIP, LIVP #### [facility] [place] [address] Middle School Coach: Juan Joe MD Bilirubin.indirect [Mass/Vol] 1.9 mg/dL High <0.3 [facility] Comment on above: Performed By: #### H H, BMPX, LIP, LIVP #### [facility] [address] [place] [address] Middle School Coach: Juan Joe MD Protein [Mass/Vol] 5.4 g/dL Low 6.4-8.3 [facility] Comment on above: Performed By: #### H H, BMPX, LIP, LIVP #### [facility] [address] [place] [address] [employer] Coach: Juan Joe MD MR Abdomen WO and W contrast Yusra 04-27-2023 1. Subtle focal area of hypoenhancement and increased T2 signal within the pancreatic head measuring approximately 2.8 x 2.1 cm extending predominantly within the pancreaticoduodenal groove. There is associated restricted diffusion. There is moderate intra and extrahepatic biliary duct dilation with severe narrowing versus termination near the level of the pancreatic head near the masslike area. Findings are concerning for underlying pancreatic head neoplasm. Recommend further evaluation with ERCP/EUS. 2. Distended gallbladder with mild wall thickening and gallbladder sludge. No definite cholelithiasis. Findings are nonspecific for acute cholecystitis. 3. 6 mm left lower lobe pulmonary nodule. Recommend further evaluation with chest CT. [facility] RIS CONSOLIDATED EXAMINATION: MRI OF THE ABDOMEN WITH AND WITHOUT CONTRAST AND MRCP 04/24/2023 9:52 am TECHNIQUE: Multiplanar multisequence MRI of the abdomen was performed with and without the administration of intravenous contrast. After initial T2 axial and coronal images, thick slab, thin slab and 3D coronal MRCP sequences were obtained without the administration of intravenous contrast. MIP images are provided for review. COMPARISON: Ultrasound 04/24/23 HISTORY: ORDERING SYSTEM PROVIDED HISTORY: Obstructive jaundice TECHNOLOGIST PROVIDED HISTORY: Obstructive jaundice What is the sedation requirement?->None Reason for Exam: Patient states that she's having Right upper quadrant pain for 2 weeks, no surgery, having diarrhea and throwing up Additional signs and symptoms: Obstructive jaundice FINDINGS: Pancreas: Pancreas demonstrates normal signal intensity on the precontrast T1 images. Within the pancreatic head, there is a subtle focal area of hypoenhancement and increased T2 signal measuring approximately 2.8 x 2.1 cm extending predominantly within the pancreaticoduodenal groove (series 1202, image 98). There is associated restricted diffusion. There is questionable mild peripancreatic stranding in this region. There is tvsk-yg-ejyeujfk atrophy of the body and tail without significant duct dilation. Biliary system: The gallbladder is distended with mild gallbladder wall thickening measuring up to 4 mm. There is gallbladder sludge and no definite cholelithiasis. There is moderate intra and extrahepatic biliary duct dilation with severe narrowing versus termination near the level of the pancreatic head near the above masslike area. The common bile duct measures up to 10 mm. Liver: No abnormal loss of signal intensity of liver parenchyma on the T1 in or out of phase images. No focal hepatic lesion. Kidneys: The kidneys enhance symmetrically. Both kidneys are lobular in contour. No hydronephrosis or perinephric stranding. Bosniak type 1 and type 2 bilateral renal cysts the largest measuring up to 1.3 cm. Other: The spleen is within normal limits. There is mild thickening of the right adrenal gland with diffuse loss of signal intensity on the T1 out of phase images. There is a similar appearance to the left adrenal gland which is slightly more thickened with a more focal probable nodule measuring 1.3 cm also demonstrating loss of signal intensity on the T1 out of phase images. The aorta is normal in caliber with chylewqh-og-bhpago atherosclerosis. The celiac axis and SMA are grossly patent. Portal venous system is patent. No pathologically enlarged adenopathy. No ascites or drainable fluid collection. There is mild wall thickening of the 2nd portion of the duodenum, nonspecific. The visualized bowel is otherwise unremarkable. There is a 6 mm left lower lobe pulmonary nodule. [facility] RIS CONSOLIDATED Lucila Mosquera MD - 04/27/2023 EXAMINATION: MRI OF THE ABDOMEN WITH AND WITHOUT CONTRAST AND MRCP 04/24/2023 9:52 am TECHNIQUE: Multiplanar multisequence MRI of the abdomen was performed with and without the administration of intravenous contrast. After initial T2 axial and coronal images, thick slab, thin slab and 3D coronal MRCP sequences were obtained without the administration of intravenous contrast. MIP images are provided for review. COMPARISON: Ultrasound 04/24/23 HISTORY: ORDERING SYSTEM PROVIDED HISTORY: Obstructive jaundice TECHNOLOGIST PROVIDED HISTORY: Obstructive jaundice What is the sedation requirement?->None Reason for Exam: Patient states that she's having Right upper quadrant pain for 2 weeks, no surgery, having diarrhea and throwing up Additional signs and symptoms: Obstructive jaundice FINDINGS: Pancreas: Pancreas demonstrates normal signal intensity on the precontrast T1 images. Within the pancreatic head, there is a subtle focal area of hypoenhancement and increased T2 signal measuring approximately 2.8 x 2.1 cm extending predominantly within the pancreaticoduodenal groove (series 1202, image 98). There is associated restricted diffusion. There is questionable mild peripancreatic stranding in this region. There is acjb-um-finfqlpc atrophy of the body and tail without significant duct dilation. Biliary system: The gallbladder is distended with mild gallbladder wall thickening measuring up to 4 mm. There is gallbladder sludge and no definite cholelithiasis. There is moderate intra and extrahepatic biliary duct dilation with severe narrowing versus termination near the level of the pancreatic head near the above masslike area. The common bile duct measures up to 10 mm. Liver: No abnormal loss of signal intensity of liver parenchyma on the T1 in or out of phase images. No focal hepatic lesion. Kidneys: The kidneys enhance symmetrically. Both kidneys are lobular in contour. No hydronephrosis or perinephric stranding. Bosniak type 1 and type 2 bilateral renal cysts the largest measuring up to 1.3 cm. Other: The spleen is within normal limits. There is mild thickening of the right adrenal gland with diffuse loss of signal intensity on the T1 out of phase images. There is a similar appearance to the left adrenal gland which is slightly more thickened with a more focal probable nodule measuring 1.3 cm also demonstrating loss of signal intensity on the T1 out of phase images. The aorta is normal in caliber with ilheweoh-cu-gjlfrf atherosclerosis. The celiac axis and SMA are grossly patent. Portal venous system is patent. No pathologically enlarged adenopathy. No ascites or drainable fluid collection. There is mild wall thickening of the 2nd portion of the duodenum, nonspecific. The visualized bowel is otherwise unremarkable. There is a 6 mm left lower lobe pulmonary nodule. IMPRESSION: 1. Subtle focal area of hypoenhancement and increased T2 signal within the pancreatic head measuring approximately 2.8 x 2.1 cm extending predominantly within the pancreaticoduodenal groove. There is associated restricted diffusion. There is moderate intra and extrahepatic biliary duct dilation with severe narrowing versus termination near the level of the pancreatic head near the masslike area. Findings are concerning for underlying pancreatic head neoplasm. Recommend further evaluation with ERCP/EUS. 2. Distended gallbladder with mild wall thickening and gallbladder sludge. No definite cholelithiasis. Findings are nonspecific for acute cholecystitis. 3. 6 mm left lower lobe pulmonary nodule. Recommend further evaluation with chest CT. [facility] MR Abdomen WO and W contrast IVOrdered By: Lucila Mosquera on 04-27-2023 [facility] Work Phone: MRI ABDOMEN W WO CONTRAST MR CPon 04-27-2023 MRI ABDOMEN W WO CONTRAST MRCP EXAMINATION: MRI OF THE ABDOMEN WITH AND WITHOUT CONTRAST AND MRCP 04/24/2023 9:52 am TECHNIQUE: Multiplanar multisequence MRI of the abdomen was performed with and without the administration of intravenous contrast. After initial T2 axial and coronal images, thick slab, thin slab and 3D coronal MRCP sequences were obtained without the administration of intravenous contrast. MIP images are provided for review. COMPARISON: Ultrasound 04/24/23 HISTORY: ORDERING SYSTEM PROVIDED HISTORY: Obstructive jaundice TECHNOLOGIST PROVIDED HISTORY: Obstructive jaundice What is the sedation requirement?->None Reason for Exam: Patient states that she's having Right upper quadrant pain for 2 weeks, no surgery, having diarrhea and throwing up Additional signs and symptoms: Obstructive jaundice FINDINGS: Pancreas: Pancreas demonstrates normal signal intensity on the precontrast T1 images. Within the pancreatic head, there is a subtle focal area of hypoenhancement and increased T2 signal measuring approximately 2.8 x 2.1 cm extending predominantly within the pancreaticoduodenal groove (series 1202, image 98). There is associated restricted diffusion. There is questionable mild peripancreatic stranding in this region. There is cqst-tt-fxpqrjyw atrophy of the body and tail without significant duct dilation. Biliary system: The gallbladder is distended with mild gallbladder wall thickening measuring up to 4 mm. There is gallbladder sludge and no definite cholelithiasis. There is moderate intra and extrahepatic biliary duct dilation with severe narrowing versus termination near the level of the pancreatic head near the above masslike area. The common bile duct measures up to 10 mm. Liver: No abnormal loss of signal intensity of liver parenchyma on the T1 in or out of phase images. No focal hepatic lesion. Kidneys: The kidneys enhance symmetrically. Both kidneys are lobular in contour. No hydronephrosis or perinephric stranding. Bosniak type 1 and type 2 bilateral renal cysts the largest measuring up to 1.3 cm. Other: The spleen is within normal limits. There is mild thickening of the right adrenal gland with diffuse loss of signal intensity on the T1 out of phase images. There is a similar appearance to the left adrenal gland which is slightly more thickened with a more focal probable nodule measuring 1.3 cm also demonstrating loss of signal intensity on the T1 out of phase images. The aorta is normal in caliber with hietcyol-yo-hnoxqh atherosclerosis. The celiac axis and SMA are grossly patent. Portal venous system is patent. No pathologically enlarged adenopathy. No ascites or drainable fluid collection. There is mild wall thickening of the 2nd portion of the duodenum, nonspecific. The visualized bowel is otherwise unremarkable. There is a 6 mm left lower lobe pulmonary nodule. IMPRESSION: 1. Subtle focal area of hypoenhancement and increased T2 signal within the pancreatic head measuring approximately 2.8 x 2.1 cm extending predominantly within the pancreaticoduodenal groove. There is associated restricted diffusion. There is moderate intra and extrahepatic biliary duct dilation with severe narrowing versus termination near the level of the pancreatic head near the masslike area. Findings are concerning for underlying pancreatic head neoplasm. Recommend further evaluation with ERCP/EUS. 2. Distended gallbladder with mild wall thickening and gallbladder sludge. No definite cholelithiasis. Findings are nonspecific for acute cholecystitis. 3. 6 mm left lower lobe pulmonary nodule. Recommend further evaluation with chest CT. Interpreted by: Lucila Mosquera MD Patel, Dipika M, MD Signed by: Lucila Mosquera MD 04/27/23 Final result Normal [facility] POC Glucose Fingerstickon Glucose [Mass/Vol] 421 mg/dL Critically high 65 - 1 05 mg/dL [facility] Interpretation and review of laboratory results Abnormal [facility] Glucose [Mass/Vol] 278 mg/dL High 65 - 105 mg/dL [facility] Interpretation and review of laboratory results Abnormal [facility] Glucose [Mass/Vol] 298 mg/dL High 65 - 105 mg/dL [facility] Interpretation and review of laboratory results Abnormal [facility] Path Review, Smearon 024 Pathologist review Pathologist comment (Bld) [Interp] ELECTRONICALLY SIGNED. LITTLE SERRATO M.D. [facility] SURGICAL PATHOLOGY REPORTon 04-27-2023 Surgical Pathology Report [facility] ANATOMIC PATHOLOGY [address] [place] [id number] SURGICAL PATHOLOGY CONSULTATION Patient Name: KARUNA NELSON MR#: [id number] Specimen #[id number] Procedures/Addenda PERIPHERAL BLOOD REPORT Date Ordered: 04/27/2023 Status: Signed Out Date Complete: 04/27/2023 By: Little Serrato Date Reported: 04/27/2023 INTERPRETATION Peripheral blood: Predominantly normocytic, normochromic anemia with moderate anisopoikilocytosis, including target cells, polychromatophilic cells, few acanthocytes and occasional elliptocytes. Rare nucleated RBC also present. Slight leukocytosis with absolute neutrophilia and mild toxic change. Platelets are unremarkable. Comment: Anemia is favored to be due to anemia of chronic disorder. Leukocytosis is favored to be reactive in origin. Clinical correlation warranted. RESULTS-COMMENTS PERIPHERAL BLOOD STUDY CBC: Please see the electronic health record for CBC parameters ([id number], 04/26/2023, 09:51). Note: The electronic health record is reviewed. Little Serrato Source: A: Peripheral Blood [facility] Smear to Pathologiston 04-27 Smear to Pathologist ELECTRONICALLY SIGN ED. LITTLE SERRATO M.D. [facility] Comment on above: Performed By: #### H H, BMPX, LIP, LIVP #### [facility] [address] [place] [address] [employer] Coach: Juan Joe MD Specimen Rejectionon Reason for rejection Unable to perform testing: Specimen clotted. [facility] Comment on above: Performed By: #### N STRAPPING MACHINE TENDER #### [address] [address] Middle School Coach: Mu Roberson MD Source of sample .BLOOD [facility] Comment on above: Performed By: #### N STRAPPING MACHINE TENDER #### [address] [address] Middle School Coach: Mu Roberson MD Test ordered [facility] Comment on above: Performed By: #### N STRAPPING MACHINE TENDER #### [address] [address] Middle [employer] Coach: Mu Roberson MD Reason for rejection Unable to perform testing: Specimen clotted. [facility] Comment on above: Performed By: #### R EJEC #### [facility] [address] [place] [address] Middle School Coach: Juan Joe MD Source of sample .BLOOD [facility] Comment on above: Performed By: #### R EJEC #### [facility] [address] [place], [place] [id number] Middle School Coach: Juan Joe MD Test ordered HH Normal [facility] Comment on above: Performed By: #### R EJEC #### [facility] [address] [place], [place] [id number] Middle School Coach: Juan Joe MD Type + Screenon 04-27-2023 Type + Screen Sample Expiration 04/29/2023,2359 Arm Band Number [id number] ABO/Rh(D) B POSITIVE Antibody Screen NEGATIVE Unit Number [id number] Blood Component Type Leukocyte Reduced Red Cell Unit Division 00 Status of Unit TRANSFUSED Transfusion Status OK TO TRANSFUSE Crossmatch Result COMPATIBLE Unit Number [id number] Blood Component Type Leukocyte Reduced Red Cell Unit Division 00 Status of Unit TRANSFUSED Transfusion Status OK TO TRANSFUSE Crossmatch Result COMPATIBLE Normal [facility] Comment on above: Performed By: #### N STRAPPING MACHINE TENDER #### [facility] [address] [place] [address] Middle School Coach: Mu Roberson MD Vitamin B12 & Folateon 04-27 Cobalamin (Vitamin B12) [Mass/Vol] 966 pg/mL 232 - 1245 pg/mL [facility] Folate [Mass/Vol] 6.0 ng/mL 4.8 - PINF ng/mL [facility] CBC with Auto Differentialon 04-26-2023 Basophils (Bld) [#/Vol] 0.00 10*3/uL [facility] Basophils/100 WBC (Bld) 0 % 0 - 2 % [facility] Eosinophils (Bld) [#/Vol] 0.00 10*3/uL [facility] Eosinophils/100 WBC (Bld) 0 % Low 1 - 4 % [facility] Erythrocyte distribution width (RBC) [Ratio] 19.9 % High 11.8 - 14.4 % [facility] Hematocrit (Bld) [Volume fraction] 20.2 % Low 36.3 - 47.1 % [facility] Hemoglobin (Bld) [Mass/Vol] 6.2 g/dL Critically low 11.9 - 15.1 g/dL [facility] Immature granulocytes (Bld) [#/Vol] 0.14 10*3/uL [facility] Immature granulocytes/100 WBC (Bld) 1 % High 0 [facility] Interpretation and review of laboratory results Abnormal [facility] Lymphocytes/100 WBC (Bld) 10 % Low 24 - 43 % [facility] Lymphocytes/100 WBC (Bld) 1.40 % [facility] MCH (RBC) [Entitic mass] 27.4 pg 25.2 - 33.5 pg [facility] MCHC (RBC) [Mass/Vol] 30.7 g/dL 28.4 - 34.8 g/dL [facility] MCV (RBC) [Entitic vol] 89.4 fL 82.6 - 102.9 fL [facility] Monocytes/100 WBC (Bld) 2 % Low 3 - 12 % [facility] Monocytes/100 WBC (Bld) 0.28 % [facility] Neutrophils/100 WBC (Bld) 87 % High 36 - 65 % [facility] Nucleated RBC/100 WBC (Bld) [Ratio] 0.3 % High 0.0 per 100 WBC [facility] Platelet mean volume (Bld) [Entitic vol] 11.4 fL 8.1 - 13.5 fL [facility] Platelets (Bld) [#/Vol] 323 10*3/uL [facility] RBC (Bld) [#/Vol] 2.26 10*6/uL Low 3.95 - 5.1 1 m/uL [facility] Segmented neutrophils/100 WBC (Bld) 12.18 % High [facility] WBC other (Bld) [#/Vol] 14.0 High [facility] Basophils (Bld) [#/Vol] 0.00 10*3/uL [facility] Basophils/100 WBC (Bld) 0 % 0 - 2 % [facility] Eosinophils (Bld) [#/Vol] 0.00 10*3/uL [facility] Eosinophils/100 WBC (Bld) 0 % Low 1 - 4 % [facility] Erythrocyte distribution width (RBC) [Ratio] 19.8 % High 11.8 - 14.4 % [facility] Hematocrit (Bld) [Volume fraction] 17.9 % Low 36.3 - 47.1 % [facility] Hemoglobin (Bld) [Mass/Vol] 5.6 g/dL Critically low 11.9 - 15.1 g/dL [facility] Immature granulocytes (Bld) [#/Vol] 0.11 10*3/uL [facility] Immature granulocytes/100 WBC (Bld) 1 % High 0 [facility] Interpretation and review of laboratory results Abnormal [facility] Lymphocytes/100 WBC (Bld) 11 % Low 24 - 43 % [facility] Lymphocytes/100 WBC (Bld) 1.23 % [facility] MCH (RBC) [Entitic mass] 27.6 pg 25.2 - 33.5 pg [facility] MCHC (RBC) [Mass/Vol] 31.3 g/dL 28.4 - 34.8 g/dL [facility] MCV (RBC) [Entitic vol] 88.2 fL 82.6 - 102.9 fL [facility] Monocytes/100 WBC (Bld) 2 % Low 3 - 12 % [facility] Monocytes/100 WBC (Bld) 0.22 % [facility] Neutrophils/100 WBC (Bld) 86 % High 36 - 65 % [facility] Nucleated RBC/100 WBC (Bld) [Ratio] 0.2 % High 0.0 per 100 WBC [facility] Platelet mean volume (Bld) [Entitic vol] 11.3 fL 8.1 - 13.5 fL [facility] Platelets (Bld) [#/Vol] 274 10*3/uL [facility] RBC (Bld) [#/Vol] 2.03 10*6/uL Low 3.95 - 5.1 1 m/uL [facility] Segmented neutrophils/100 WBC (Bld) 9.64 % High [facility] WBC other (Bld) [#/Vol] 11.2 [facility] CBC with Diffon 04-26-2023 Abs. Basophil 0.00 k/uL Normal 0.00-0.20 [facility] Comment on above: Performed By: #### H H, BMPX, LIP, LIVP #### [facility] [address] [place] [address] [employer]: Juan Joe MD Abs.Imm.Granulocyte 0.14 k/uL Normal 0.00-0.30 [facility] Comment on above: Performed By: #### H H, BMPX, LIP, LIVP #### [facility] [address] [place] [address] [employer]: Juan Joe MD Abs.Neutrophil (Seg) 12.18 k/uL High 1.50-8.10 [facility] Comment on above: Performed By: #### H H, BMPX, LIP, LIVP #### [facility] [address] [place] [address] [employer]: Juan Joe MD Basophils/100 WBC (Bld) 0 % Normal 0-2 [facility] Comment on above: Performed By: #### H H, BMPX, LIP, LIVP #### [facility] [address] [place] [address] [employer]: Juan Joe MD Eosinophils (Bld) [#/Vol] 0.00 10*3/uL Normal 0.00-0.44 [facility] Comment on above: Performed By: #### H H, BMPX, LIP, LIVP #### [facility] [address] [place] [address] [employer]: Juan Joe MD Eosinophils/100 WBC (Bld) 0 % Low 1-4 [facility] Comment on above: Performed By: #### H H, BMPX, LIP, LIVP #### [facility] [address] [place] [address]. [place] [address] [employer]: Juan Joe MD Immature granulocytes/100 WBC (Bld) 1 % High 0 [facility] Comment on above: Performed By: #### H H, BMPX, LIP, LIVP #### [facility] [address] [place] [address] [employer]: Juan Joe MD Lymphocytes (Bld) [#/Vol] 1.40 10*3/uL Normal 1.10-3.70 [facility] Comment on above: Performed By: #### H H, BMPX, LIP, LIVP #### [facility] [address] [place] [address] [employer]: Juan Joe MD Lymphocytes/100 WBC (Bld) 10 % Low 24-43 [facility] Comment on above: Performed By: #### H H, BMPX, LIP, LIVP #### [facility] [address] [place] [address] [employer] Coach: Juan Joe MD Monocytes (Bld) [#/Vol] 0.28 10*3/uL Normal 0.10-1.20 [facility] Comment on above: Performed By: #### H H, BMPX, LIP, LIVP #### [facility] [address] [place] [address] [employer]: Juan Joe MD Monocytes/100 WBC (Bld) 2 % Low 3-12 [facility] Comment on above: Performed By: #### H H, BMPX, LIP, LIVP #### [facility] [address] [place], [place] [address]. [place] [address] [employer]: Juan Joe MD Neutrophil (Seg) 87 % High 36-65 [facility] Comment on above: Performed By: #### H H, BMPX, LIP, LIVP #### [facility] [address] [facility] [place] [address] [employer] Coach: Juan Joe MD Erythrocyte distribution width (RBC) [Ratio] 19.9 % High 11.8-14.4 [facility] Comment on above: Performed By: #### H H, BMPX, LIP, LIVP #### [facility] [address] [place] [address]. [place] [address] [employer]: Juan Joe MD Hematocrit (Bld) [Volume fraction] 20.2 % Low 36.3-47.1 [facility] Comment on above: Performed By: #### H H, BMPX, LIP, LIVP #### [facility] [address] [place] [address]. [place] [address] [employer] Coach: Juan Joe MD Hemoglobin (Bld) [Mass/Vol] 6.2 g/dL Critically low 11.9-15.1 [facility] Comment on above: Performed By: #### H H, BMPX, LIP, LIVP #### [facility] [address] [place] [address]. [place] [address] [employer]: Juan Joe MD MCH (RBC) [Entitic mass] 27.4 pg Normal 25.2-33.5 [facility] Comment on above: Performed By: #### H H, BMPX, LIP, LIVP #### [facility] [facility] [place] [address] [employer] Coach: Juan Joe MD MCHC (RBC) [Mass/Vol] 30.7 g/dL Normal 28.4-34.8 [facility] Comment on above: Performed By: #### H H, BMPX, LIP, LIVP #### [facility] [facility] [place] [address] [employer] Coach: Juan Joe MD MCV (RBC) [Entitic vol] 89.4 fL Normal 82.6-102.9 [facility] Comment on above: Performed By: #### H H, BMPX, LIP, LIVP #### [facility] [address] [place] [address]. [place] [address] [employer] Coach: Juan Joe MD NRBC Automated 0.3 per 100 WBC High 0.0 [facility] Comment on above: Performed By: #### H H, BMPX, LIP, LIVP #### [facility] [address] [place] [address]. [place] [address] [employer] Coach: Juan Joe MD Platelet mean volume (Bld) [Entitic vol] 11.4 fL Normal 8.1-13.5 [facility] Comment on above: Performed By: #### H H, BMPX, LIP, LIVP #### [facility] [address] [place] [address]. [place] [address] [employer] Coach: Juan Joe MD Platelets (Bld) [#/Vol] 323 10*3/uL Normal 138-453 [facility] Comment on above: Performed By: #### H H, BMPX, LIP, LIVP #### [facility] [address] [place] [address]. [place] [address] [employer] Coach: Juan Joe MD RBC (Bld) [#/Vol] 2.26 10*6/uL Low 3.95-5.11 [facility] Comment on above: Performed By: #### H H, BMPX, LIP, LIVP #### [facility] [place] [address] [employer] Coach: Juan Joe MD WBC (Bld) [#/Vol] 14.0 10*3/uL High 3.5-11.3 [facility] Comment on above: Performed By: #### H H, BMPX, LIP, LIVP #### [facility] [address] [place] [address]. [place] [address] [employer]: Juan Joe MD Abs. Basophil 0.00 k/uL Normal 0.00-0.20 [facility] Comment on above: Performed By: #### H H, BMPX, LIP, LIVP #### [facility] [address] [place] [address]. [place] [address] [employer] Coach: Juan Joe MD Abs.Imm.Granulocyte 0.11 k/uL Normal 0.00-0.30 [facility] Comment on above: Performed By: #### H H, BMPX, LIP, LIVP #### [facility] [address] [place] [address] [employer]: Juan Joe MD Abs.Neutrophil (Seg) 9.64 k/uL High 1.50-8.10 [facility] Comment on above: Performed By: #### H H, BMPX, LIP, LIVP #### [facility] [address] [place] [address] [employer]: Juan Joe MD Basophils/100 WBC (Bld) 0 % Normal 0-2 [facility] Comment on above: Performed By: #### H H, BMPX, LIP, LIVP #### [facility] [address] [place] [address]. [place] [address] [employer] Coach: Juan Joe MD Eosinophils (Bld) [#/Vol] 0.00 10*3/uL Normal 0.00-0.44 [facility] Comment on above: Performed By: #### H H, BMPX, LIP, LIVP #### [facility] [address] [place] [address]. [place] [address] [employer] Coach: Juan Joe MD Eosinophils/100 WBC (Bld) 0 % Low 1-4 [facility] Comment on above: Performed By: #### H H, BMPX, LIP, LIVP #### [facility] [address] [place] [address] [employer] Coach: Juan Joe MD Immature granulocytes/100 WBC (Bld) 1 % High 0 [facility] Comment on above: Performed By: #### H H, BMPX, LIP, LIVP #### [facility] [address] [place] [address] [employer] Coach: Juan Joe MD Lymphocytes (Bld) [#/Vol] 1.23 10*3/uL Normal 1.10-3.70 [facility] Comment on above: Performed By: #### H H, BMPX, LIP, LIVP #### [facility] [address] [place] [address] [employer] Coach: Juan Joe MD Lymphocytes/100 WBC (Bld) 11 % Low 24-43 [facility] Comment on above: Performed By: #### H H, BMPX, LIP, LIVP #### [facility] [address] [place] [address] [employer]: Juan Joe MD Monocytes (Bld) [#/Vol] 0.22 10*3/uL Normal 0.10-1.20 [facility] Comment on above: Performed By: #### H H, BMPX, LIP, LIVP #### [facility] [address] [place] [address] [employer] Coach: Juan Joe MD Monocytes/100 WBC (Bld) 2 % Low 3-12 [facility] Comment on above: Performed By: #### H H, BMPX, LIP, LIVP #### [facility] [address] [place] [address] [employer] Coach: Juan Joe MD Neutrophil (Seg) 86 % High 36-65 [facility] Comment on above: Performed By: #### H H, BMPX, LIP, LIVP #### [facility] [address] [facility] [place] [address] [employer] Coach: Juan Joe MD Erythrocyte distribution width (RBC) [Ratio] 19.8 % High 11.8-14.4 [facility] Comment on above: Performed By: #### H H, BMPX, LIP, LIVP #### [facility] [address] [facility] [place] [address] [employer] Coach: Juan Joe MD Hematocrit (Bld) [Volume fraction] 17.9 % Low 36.3-47.1 [facility] Comment on above: Performed By: #### H H, BMPX, LIP, LIVP #### [facility] [facility] [place] [address] [employer] Coach: Juan Joe MD Hemoglobin (Bld) [Mass/Vol] 5.6 g/dL Critically low 11.9-15.1 [facility] Comment on above: Performed By: #### H H, BMPX, LIP, LIVP #### [facility] [place] [address] [employer] Coach: Juan Joe MD MCH (RBC) [Entitic mass] 27.6 pg Normal 25.2-33.5 [facility] Comment on above: Performed By: #### H H, BMPX, LIP, LIVP #### [facility] [place] [address] [employer] Coach: Juan Joe MD MCHC (RBC) [Mass/Vol] 31.3 g/dL Normal 28.4-34.8 [facility] Comment on above: Performed By: #### H H, BMPX, LIP, LIVP #### [facility] [address] [place], [place] [address] [place] [address] [employer] Coach: Juan Joe MD MCV (RBC) [Entitic vol] 88.2 fL Normal 82.6-102.9 [facility] Comment on above: Performed By: #### H H, BMPX, LIP, LIVP #### [facility] [address] [place] [address]. [place] [address] [employer] Coach: Juan Joe MD NRBC Automated 0.2 per 100 WBC High 0.0 [facility] Comment on above: Performed By: #### H H, BMPX, LIP, LIVP #### [facility] [address] [place] [address] [employer] Coach: Juan Joe MD Platelet mean volume (Bld) [Entitic vol] 11.3 fL Normal 8.1-13.5 [facility] Comment on above: Performed By: #### H H, BMPX, LIP, LIVP #### [facility] [address] [place] [address] [employer] Coach: Juan Joe MD Platelets (Bld) [#/Vol] 274 10*3/uL Normal 138-453 [facility] Comment on above: Performed By: #### H H, BMPX, LIP, LIVP #### [facility] [address] [place] [address] [place] [address] [employer] Coach: Juan Joe MD RBC (Bld) [#/Vol] 2.03 10*6/uL Low 3.95-5.11 [facility] Comment on above: Performed By: #### H H, BMPX, LIP, LIVP #### [facility] [address] [place] [address]. [place] [address] [employer] Coach: Juan Joe MD WBC (Bld) [#/Vol] 11.2 10*3/uL Normal 3.5-11.3 [facility] Comment on above: Performed By: #### H H, BMPX, LIP, LIVP #### [facility] [address] [place] [address]. [place] [address] [employer]: Juan Joe MD CKon 04-26-2023 CK [Catalytic activity/Vol] 28 U/L 26 - 192 U/L [facility] Comp Metabolic Pr/rfx MGon 0 - Albumin [Mass/Vol] 3.1 g/dL Low 3.5-5.2 [facility] Comment on above: Performed By: #### H H, BMPX, LIP, LIVP #### [facility] [address] [place] [address]. [place] [address] [employer] Coach: Juan Joe MD Alkaline Phos 695 U/L High 35-104 [facility] Comment on above: Performed By: #### H H, BMPX, LIP, LIVP #### [facility] [address] [place] [address]. [place] [address] [employer] Coach: Juan Joe MD ALT [Catalytic activity/Vol] 67 U/L High 5-33 [facility] Comment on above: Performed By: #### H H, BMPX, LIP, LIVP #### [facility] [address] [place] [address] [place] [address] [employer] Coach: Juan Joe MD Anion gap [Moles/Vol] 15 mmol/L Normal 9-17 [facility] Comment on above: Performed By: #### H H, BMPX, LIP, LIVP #### [facility] [address] [place] [address]. [place] [address] [employer] Coach: Juan Joe MD AST [Catalytic activity/Vol] 50 U/L High <32 [facility] Comment on above: Performed By: #### H H, BMPX, LIP, LIVP #### [facility] [address] [place] [address]. [place] [address] [employer] Coach: Juan Joe MD Bilirubin [Mass/Vol] 3.0 mg/dL High 0.3-1.2 [facility] Comment on above: Performed By: #### H H, BMPX, LIP, LIVP #### [facility] [address] [place] [address]. [place] [address] [employer] Coach: Juan Joe MD BUN/CRE Ratio 31 High 9-20 [facility] Comment on above: Performed By: #### H H, BMPX, LIP, LIVP #### [facility] [address] [place] [address]. [place] [address] [employer] Coach: Juan Joe MD Calcium [Mass/Vol] 8.5 mg/dL Low 8.6-10.4 [facility] Comment on above: Performed By: #### H H, BMPX, LIP, LIVP #### [facility] [address] [place] [address]. [place] [address] [employer] Coach: Juan Joe MD Chloride [Moles/Vol] 101 mmol/L Normal 98-107 [facility] Comment on above: Performed By: #### H H, BMPX, LIP, LIVP #### [facility] [address] [place] [address] [employer] Coach: Juan Joe MD CO2 [Moles/Vol] 14 mmol/L Low 20-31 [facility] Comment on above: Performed By: #### H H, BMPX, LIP, LIVP #### [facility] [address] [facility] [place] [address] [employer] Coach: Juan Joe MD Creatinine [Mass/Vol] 1.1 mg/dL High 0.5-0.9 [facility] Comment on above: Result Comment: ICTE DMITRIY SPECIMEN Performed By: #### H H, BMPX, LIP, LIVP #### [facility] [address] [place] [address]. [place] [address] [employer]: Juan Joe MD GFR/1.73 sq M.predicted among non-blacks MDRD (S/P/Bld) [Vol rate/Area] 56 mL/min/{1.73_m2} Low >60 [facility] Comment on above: Result Comment: These results are not intended for use in patients <18 years of age. eGFR results are calculated without a race factor using the 2020 CKD-EPI equation. Careful clinical correlation is recommended, particularly when comparing to results calculated using previous equations. The CKD-EPI equation is less accurate in patients with extremes of muscle mass, extra-renal metabolism of creatine, excessive creatine ingestion, or following therapy that affects renal tubular secretion. Performed By: #### H H, BMPX, LIP, LIVP #### [facility] [address] [facility] [place], [place] [id number] [employer] Coach: Juan Joe MD Glucose [Mass/Vol] 416 mg/dL Critically high 70-99 M [facility] Comment on above: Performed By: #### H H, BMPX, LIP, LIVP #### [facility] [address] [facility] [place] [address] [employer] Coach: Juan Joe MD Potassium [Moles/Vol] 5.4 mmol/L High 3.7-5.3 [facility] Comment on above: Performed By: #### H H, BMPX, LIP, LIVP #### [facility] [address] [place] [address] [employer] Coach: Juan Joe MD Protein [Mass/Vol] 6.2 g/dL Low 6.4-8.3 [facility] Comment on above: Performed By: #### H H, BMPX, LIP, LIVP #### [facility] [address] [place] [address]. [place] [address] [employer] Coach: Juan Joe MD Sodium [Moles/Vol] 130 mmol/L Low 135-144 [facility] Comment on above: Performed By: #### H H, BMPX, LIP, LIVP #### [facility] [facility] [address] [employer] Coach: Juan Joe MD Urea nitrogen [Mass/Vol] 34 mg/dL High 8-23 [facility] Comment on above: Performed By: #### H H, BMPX, LIP, LIVP #### [facility] [address] [place] [address]. [place] [address] [employer] Coach: Juan Joe MD Albumin [Mass/Vol] 2.8 g/dL Low 3.5-5.2 [facility] Comment on above: Performed By: #### H H, BMPX, LIP, LIVP #### [facility] [place] [address] [employer] Coach: Juan Joe MD Alkaline Phos 628 U/L High 35-104 [facility] Comment on above: Performed By: #### H H, BMPX, LIP, LIVP #### [facility] [address] [place] [address] [employer] Coach: Juan Joe MD ALT [Catalytic activity/Vol] 61 U/L High 5-33 [facility] Comment on above: Performed By: #### H H, BMPX, LIP, LIVP #### [facility] [address] [place] [address] [employer] Coach: Juan Joe MD Anion gap [Moles/Vol] 12 mmol/L Normal 9-17 [facility] Comment on above: Performed By: #### H H, BMPX, LIP, LIVP #### [facility] [address] [place] [address] [employer] Coach: Juan Joe MD AST [Catalytic activity/Vol] 47 U/L High <32 [facility] Comment on above: Performed By: #### H H, BMPX, LIP, LIVP #### [facility] [address] [facility] [place] [address] [employer] Coach: Juan Joe MD Bilirubin [Mass/Vol] 2.7 mg/dL High 0.3-1.2 [facility] Comment on above: Performed By: #### H H, BMPX, LIP, LIVP #### [facility] [address] [place] [address] [employer] Coach: Juan Joe MD BUN/CRE Ratio 37 High 9-20 [facility] Comment on above: Performed By: #### H H, BMPX, LIP, LIVP #### [facility] [place] [address] [employer] Coach: Juan Joe MD Calcium [Mass/Vol] 8.2 mg/dL Low 8.6-10.4 [facility] Comment on above: Performed By: #### H H, BMPX, LIP, LIVP #### [facility] [address] [facility] [place] [address] [employer] Coach: Juan Joe MD Chloride [Moles/Vol] 103 mmol/L Normal 98-107 [facility] Comment on above: Performed By: #### H H, BMPX, LIP, LIVP #### [facility] [address] [place] [address] [employer] Coach: Juan Joe MD CO2 [Moles/Vol] 15 mmol/L Low 20-31 [facility] Comment on above: Performed By: #### H H, BMPX, LIP, LIVP #### [facility] [address] [facility] [place] [address] [employer] Coach: Juan Joe MD Creatinine [Mass/Vol] 0.9 mg/dL Normal 0.5-0.9 [facility] Comment on above: Result Comment: ICTE DMITRIY SPECIMEN Performed By: #### H H, BMPX, LIP, LIVP #### [facility] [address] [facility] [place] [address] [employer]: Juan Joe MD GFR/1.73 sq M.predicted among non-blacks MDRD (S/P/Bld) [Vol rate/Area] mL/min/{1.73_m2} Normal >60 [facility] Comment on above: Result Comment: These results are not intended for use in patients <18 years of age. eGFR results are calculated without a race factor using the 2020 CKD-EPI equation. Careful clinical correlation is recommended, particularly when comparing to results calculated using previous equations. The CKD-EPI equation is less accurate in patients with extremes of muscle mass, extra-renal metabolism of creatine, excessive creatine ingestion, or following therapy that affects renal tubular secretion. Performed By: #### H H, BMPX, LIP, LIVP #### [facility] [address] [place] [address] [employer]: Juan Joe MD Glucose [Mass/Vol] 374 mg/dL High 70-99 [facility] Comment on above: Performed By: #### H H, BMPX, LIP, LIVP #### [facility] [address] [place] [address] [employer] Coach: Juan Joe MD Potassium [Moles/Vol] 5.9 mmol/L High 3.7-5.3 [facility] Comment on above: Performed By: #### H H, BMPX, LIP, LIVP #### [facility] [address] [employer] Coach: Juan Joe MD Protein [Mass/Vol] 5.7 g/dL Low 6.4-8.3 [facility] Comment on above: Performed By: #### H H, BMPX, LIP, LIVP #### [facility] [place] [address] [employer] Coach: Juan Joe MD Sodium [Moles/Vol] 130 mmol/L Low 135-144 [facility] Comment on above: Performed By: #### H H, BMPX, LIP, LIVP #### [facility] [address] [employer] Coach: Juan Joe MD Urea nitrogen [Mass/Vol] 33 mg/dL High 8-23 [facility] Comment on above: Performed By: #### H H, BMPX, LIP, LIVP #### [facility] [place] [address] [employer] Coach: Juan Joe MD Comprehensive Metabolic Pane l w/ Reflex to MGon 04-26-2023 Albumin [Mass/Vol] 3.1 g/dL Low 3.5 - 5.2 g/dL [facility] ALP [Catalytic activity/Vol] 695 U/L High 35 - 104 U/L [facility] ALT [Catalytic activity/Vol] 67 U/L High 5 - 33 U/L [facility] Anion gap [Moles/Vol] 15 mmol/L 9 - 17 mmol/L [facility] AST [Catalytic activity/Vol] 50 U/L High NINF - 32 U/L [facility] Bilirubin [Mass/Vol] 3.0 mg/dL High 0.3 - 1 .2 mg/dL [facility] Calcium [Mass/Vol] 8.5 mg/dL Low 8.6 - 10. 4 mg/dL [facility] Chloride [Moles/Vol] 101 mmol/L 98 - 10 7 mmol/L [facility] CO2 [Moles/Vol] 14 mmol/L Low 20 - 31 mmol/L [facility] Creatinine [Mass/Vol] 1.1 mg/dL High 0.5 - 0.9 mg/dL [facility] Comment on above: ICTERIC SPECIMEN GFR/1.73 sq M.predicted MDRD (S/P/Bld) [Vol rate/Area] 56 mL/min/{1.73_m2} Low - PINF [facility] Comment on above: These results are not intended for use in patients <18 years of age. eGFR results are calculated without a race factor using the 2020 CKD-EPI equation. Careful clinical correlation is recommended, particularly when comparing to results calculated using previous equations. The CKD-EPI equation is less accurate in patients with extremes of muscle mass, extra-renal metabolism of creatine, excessive creatine ingestion, or following therapy that affects renal tubular secretion. Glucose [Mass/Vol] 416 mg/dL Critically high 70 - 9 9 mg/dL [facility] Interpretation and review of laboratory results Abnormal [facility] Potassium [Moles/Vol] 5.4 mmol/L High 3.7 - 5.3 mmol/L [facility] Protein [Mass/Vol] 6.2 g/dL Low 6.4 - 8.3 g/dL [facility] Sodium [Moles/Vol] 130 mmol/L Low 135 - 144 mmol/L [facility] Urea nitrogen [Mass/Vol] 34 mg/dL High 8 - 23 mg/dL [facility] Urea nitrogen/Creatinine [Mass ratio] 31 mg/mg High 9 - 20 [facility] Albumin [Mass/Vol] 2.8 g/dL Low 3.5 - 5.2 g/dL [facility] ALP [Catalytic activity/Vol] 628 U/L High 35 - 104 U/L [facility] ALT [Catalytic activity/Vol] 61 U/L High 5 - 33 U/L [facility] Anion gap [Moles/Vol] 12 mmol/L 9 - 17 mmol/L [facility] AST [Catalytic activity/Vol] 47 U/L High NINF - 32 U/L [facility] Bilirubin [Mass/Vol] 2.7 mg/dL High 0.3 - 1 .2 mg/dL [facility] Calcium [Mass/Vol] 8.2 mg/dL Low 8.6 - 10. 4 mg/dL [facility] Chloride [Moles/Vol] 103 mmol/L 98 - 10 7 mmol/L [facility] CO2 [Moles/Vol] 15 mmol/L Low 20 - 31 mmol/L [facility] Creatinine [Mass/Vol] 0.9 mg/dL 0.5 - 0.9 mg/dL [facility] Comment on above: ICTERIC SPECIMEN GFR/1.73 sq M.predicted MDRD (S/P/Bld) [Vol rate/Area] - PINF [facility] Comment on above: These results are not intended for use in patients <18 years of age. eGFR results are calculated without a race factor using the 2020 CKD-EPI equation. Careful clinical correlation is recommended, particularly when comparing to results calculated using previous equations. The CKD-EPI equation is less accurate in patients with extremes of muscle mass, extra-renal metabolism of creatine, excessive creatine ingestion, or following therapy that affects renal tubular secretion. Glucose [Mass/Vol] 374 mg/dL High 70 - 99 mg/dL [facility] Potassium [Moles/Vol] 5.9 mmol/L High 3.7 - 5.3 mmol/L [facility] Protein [Mass/Vol] 5.7 g/dL Low 6.4 - 8.3 g/dL [facility] Sodium [Moles/Vol] 130 mmol/L Low 135 - 144 mmol/L [facility] Urea nitrogen [Mass/Vol] 33 mg/dL High 8 - 23 mg/dL [facility] Urea nitrogen/Creatinine [Mass ratio] 37 mg/mg High 9 - 20 [facility] Creatine Kinaseon 04-26-2023 CK [Catalytic activity/Vol] 28 U/L Normal 26-192 [facility] Comment on above: Performed By: #### H H, BMPX, LIP, LIVP #### [facility] [address] [address] [employer] Coach: Juan Joe MD Cytology, Non-Gynon 04-26-19 [facility] Ferritinon 04-26-2023 Ferritin [Mass/Vol] 173 ng/mL High 13 - 150 ng/mL [facility] Interpretation and review of laboratory results Abnormal [facility] Fibrin Split Prodon 04-26-19 Fibrin Split Prod <5 Normal <5 [facility] Comment on above: Performed By: #### H H, BMPX, LIP, LIVP #### [facility] [address] [address] Middle School Coach: Juan Joe MD Fibrin Split Productson 04-04 FDP <5 NINF - 5 ug/mL [facility] Fibrinogenon 04-26-2023 Fibrinogen 639 mg/dL High 179-518 [facility] Comment on above: Performed By: #### H H, BMPX, LIP, LIVP #### [facility] [address] [address] Middle School Coach: Juan Joe MD Fibrinogen Coag (PPP) [Mass/Vol] 639 mg/dL High 179 - 518 mg/dL [facility] Interpretation and review of laboratory results Abnormal [facility] Haptoglobinon 04-26-2023 Haptoglobin 376 mg/dL High 30-200 [facility] Comment on above: Performed By: #### H H, BMPX, LIP, LIVP #### [facility] [address] [place] [address] [employer] Coach: Juan Joe MD Haptoglobin [Mass/Vol] 376 mg/dL High 30 - 200 mg/dL [facility] Interpretation and review of laboratory results Abnormal [facility] Hemoglobin and Hematocriton 04-26-2023 Hematocrit (Bld) [Volume fraction] 22.2 % Low 36.3 - 47.1 % [facility] Hemoglobin (Bld) [Mass/Vol] 7.1 g/dL Low 11.9 - 15.1 g/dL [facility] Interpretation and review of laboratory results Abnormal [facility] Hgb/Hcton 04-26-2023 Hematocrit (Bld) [Volume fraction] 22.2 % Low 36.3-47.1 [facility] Comment on above: Performed By: #### H H, BMPX, LIP, LIVP #### [facility] [address] [place] [address] [employer] Coach: Juan Joe MD Hemoglobin (Bld) [Mass/Vol] 7.1 g/dL Low 11.9-15.1 [facility] Comment on above: Performed By: #### H H, BMPX, LIP, LIVP #### [facility] [address] [place] [address] [employer] Coach: Juan Joe MD Lipaseon 04-26-2023 Lipase [Catalytic activity/Vol] 531 U/L High 13-60 [facility] Comment on above: Performed By: #### H H, BMPX, LIP, LIVP #### [facility] [address] [place], [place] [id number] [employer] School Coach: Juan Joe MD Lipase [Catalytic activity/Vol] 531 U/L High 13 - 60 U/L [facility] No Panel Informationon 04-26 [facility] Interpretation and review of laboratory results Abnormal [facility] Non-Lubrication Technician Cytologyon Case No: [id number] Normal [facility] Comment on above: Performed By: #### N STRAPPING MACHINE TENDER #### [place] [id number] [place], [place] [id number] Middle School Coach: Mu Roberson MD POC Glucose Fingerstickon Glucose [Mass/Vol] 395 mg/dL High 65 - 105 mg/dL [facility] Interpretation and review of laboratory results Abnormal [facility] Glucose [Mass/Vol] 403 mg/dL Critically high 65 - 1 05 mg/dL [facility] Interpretation and review of laboratory results Abnormal [facility] Glucose [Mass/Vol] 361 mg/dL High 65 - 105 mg/dL [facility] Interpretation and review of laboratory results Abnormal [facility] Retic Counton 04-26-2023 Absolute Retic 0.113 M/uL High 0.030-0.080 [facility] Comment on above: Performed By: #### H H, BMPX, LIP, LIVP #### [facility] [address] [place], [place] [id number] Middle [employer] Coach: Juan Joe MD IRF 38.0 % High 2.7-18.3 [facility] Comment on above: Performed By: #### H H, BMPX, LIP, LIVP #### [facility] [address] [place] [address] Middle School Coach: Juan Joe MD Retic Count 4.2 % High 0.5-1.9 [facility] Comment on above: Performed By: #### H H, BMPX, LIP, LIVP #### [facility] [address] [place] [address] Middle School Coach: Juan Joe MD Retic Hemoglobin 29.8 pg Normal 28.2-35.7 [facility] Comment on above: Performed By: #### H H, BMPX, LIP, LIVP #### [facility] [address] [place] [address] Middle School Coach: Juan Joe MD Reticulocyteson 04-26-2023 Immature reticulocytes/Total reticulocytes (Bld) 38.0 % High 2.7 - 18.3 % [facility] Interpretation and review of laboratory results Abnormal [facility] Retic Hemoglobin 29.8 pg 28.2 - 35.7 pg [facility] Reticulocytes (Bld) [#/Vol] 0.113 10*3/uL High [facility] Reticulocytes/100 RBC (Bld) 4.2 % High 0.5 - 1.9 % [facility] Specimen Rejectionon 024 Reason for rejection Unable to perform testing: Results suspect due to history of previous lab Normal [facility] Comment on above: Result Comment: resu lts. Performed By: #### H H, BMPX, LIP, LIVP #### [facility] [address] [place] [address] Middle School Coach: Juan Joe MD Source of sample .BLOOD Normal [facility] Comment on above: Performed By: #### H H, BMPX, LIP, LIVP #### [facility] [address] [place] [address] Middle School Coach: Juan Joe MD Test ordered CDP Normal [facility] Comment on above: Performed By: #### H H, BMPX, LIP, LIVP #### [facility] [address] [address] Middle School Coach: Juan Joe MD Surgical Pathology Reporton 04-26-2023 Surgical Pathology Report (NOTE) [facility] ANATOMIC PATHOLOGY [address] [place] [address]. [place], [place] [address] SURGICAL PATHOLOGY CONSULTATION Patient Name: KARUNA NELSON MR#: [id number] Specimen # Procedures/Addenda PERIPHERAL BLOOD REPORT Date Ordered: 04/27/2023 Status: Signed Out Date Complete: 04/27/2023 By: Little Serrato Date Reported: 04/27/2023 INTERPRETATION Peripheral blood: Predominantly normocytic, normochromic anemia with moderate anisopoikilocytosis, including target cells, polychromatophilic cells, few acanthocytes and occasional elliptocytes. Rare nucleated RBC also present. Slight leukocytosis with absolute neutrophilia and mild toxic change. Platelets are unremarkable. Comment: Anemia is favored to be due to anemia of chronic disorder. Leukocytosis is favored to be reactive in origin. Clinical correlation warranted. RESULTS-COMMENTS PERIPHERAL BLOOD STUDY CBC: Please see the electronic health record for CBC parameters ([id number], 04/26/2023, 09:51). Note: The electronic health record is reviewed. Little Serrato Source: A: Peripheral Blood Normal [facility] Trop/Myoglobinon 04-26-2023 Myoglobin [Mass/Vol] 54 ng/mL Normal 25-58 [facility] Comment on above: Performed By: #### H H, BMPX, LIP, LIVP #### [facility] [address] [address] Middle [employer] Coach: Juan Joe MD Troponin, High Sens 26 ng/L High 0-14 [facility] Comment on above: Result Comment: High Sensitivity Troponin values cannot be compared with other Troponin methodologies. Performed By: #### H H, BMPX, LIP, LIVP #### [facility] [address] [place] [address] Middle School Coach: Juan Joe MD Interpretation and review of laboratory results Abnormal [facility] Myoglobin [Mass/Vol] 54 ng/mL 25 - 58 ng/mL [facility] Troponin I.cardiac High sensitivity method [Mass/Vol] 26 ng/L High 0 - 14 ng/L [facility] Comment on above: High Sensitivity Tro ponin values cannot be compared with other Troponin methodologies. [facility] CT CHEST ABDOMEN PELVIS W CO NTRASTon 04-25-2023 CT CHEST ABDOMEN PELVIS W CONTRAST EXAMINATION: CT OF THE CHEST, ABDOMEN, AND PELVIS WITH CONTRAST 04/24/2023 8:31 pm TECHNIQUE: CT of the chest, abdomen and pelvis was performed with the administration of intravenous contrast. Multiplanar reformatted images are provided for review. Automated exposure control, iterative reconstruction, and/or weight based adjustment of the mA/kV was utilized to reduce the radiation dose to as low as reasonably achievable. COMPARISON: MRI abdomen with and without contrast/MRCP performed approximately 10 hours earlier. HISTORY: ORDERING SYSTEM PROVIDED HISTORY: Pancreatic mass, obstructive jaundice, incidental pulmonary nodules identified on PARKS AND RECREATION WORKER PROVIDED HISTORY: Pancreatic mass, obstructive jaundice, incidental pulmonary nodules identified on MRI Reason for Exam: Pancreatic mass, obstructive jaundice, incidental pulmonary nodules identified on MRI FINDINGS: Chest: Mediastinum: No evidence of mediastinal, hilar or axillary lymphadenopathy. Aorta is normal in caliber without acute abnormality. The central airways are clear. Tiny hiatal hernia noted. Lungs/pleura: At the infrahilar anteromedial aspect of the right lower lobe, there is a relatively smooth margined 1.1 cm mass with inferiorly adjacent scarring/retraction. At the lateral aspect of the inferior left lower lobe, the 6-7 mm nodule identified on the earlier MRI is again noted. The lungs otherwise are clear. No pneumothorax or pleural effusion. Soft Tissues/Bones: No acute bone or soft tissue abnormality evident. Abdomen/Pelvis: Organs: There is moderate intra and extrahepatic ductal dilatation. The liver is otherwise unremarkable. The gallbladder is moderately distended and appears to be sludge-filled. There is vague ill-defined mildly hypoenhancing area at the pancreatic head corresponding to the finding on the earlier MRI. There is mild edema in the anteriorly adjacent fatty tissues. The common duct is dilated proximal to this. The pancreatic duct is of normal caliber. The pancreas is otherwise unremarkable. The spleen contains a calcified granuloma but is otherwise unremarkable. The right adrenal gland, left kidney and visualized bilateral ureters are unremarkable. The left adrenal gland is noted for a 1.4 cm mass with a density of 61 Hounsfield units. The right kidney contains 2 small simple cysts not requiring imaging follow-up. GI/Bowel: Stomach and duodenal sweep demonstrate no acute abnormality. There is no evidence of bowel obstruction. No evidence of abnormal bowel wall thickening or distension. The appendix is visualized and is unremarkable. No evidence of acute appendicitis. Pelvis: The bladder and reproductive organs are unremarkable. Peritoneum/Retroperitone um: No evidence of ascites or free air. No evidence of lymphadenopathy. Aorta is normal in caliber. Bones/Soft Tissues: No acute bone or soft tissue abnormality. There is mild grade 1 anterolisthesis of L5 on S1 due to bilateral L5 pars defects. IMPRESSION: 1. There is a vague ill-defined hypoenhancing area at the pancreatic head corresponding to the finding on the earlier MRI. This is concerning for a primary pancreatic neoplasm. There is moderate intra and extrahepatic ductal dilatation. The pancreatic duct is of normal caliber. As noted in the report for the MRI, follow-up ERCP/EUS recommended for further evaluation. 2. There is a 1.4 cm left adrenal mass. Recommendation below. 3. There is a 1.1 cm mass in the right lower lobe and a 6-7 mm nodule in the left lower lobe. Recommendation below. 4. No other evidence of metastatic disease in the chest, abdomen or pelvis. 5. There is mild grade 1 anterolisthesis of L5 on S1 due to bilateral L5 pars defects. RECOMMENDATIONS: Pathology: 1.4 cm left adrenal mass, probable benign adenoma.Recommend follow-up adrenal washout CT in 1 year. If stable for ? 1 year, no further follow-up imaging.JACR 2017 Nov; 14(8):1038-44, JCAT 2016 Jun-Jul; 40(2):194-200, Urol J spring; 3(2):71-4. Pathology: 11 mm right solid pulmonary nodule.Per Fleischner Society Guidelines, consider a non-contrast Chest CT at 3 months, a PET/CT, or tissue sampling.These guidelines do not apply to immunocompromised patients and patients with cancer. Follow up in patients with significant comorbidities as clinically warranted. For lung cancer screening, adhere to Lung-RADS guidelines. Reference: Radiology. 2017; 284(1):228-43. Interpreted by: Poncho Trejo MD Signed by: Poncho Trejo MD 04/24/23 Final result Normal [facility] FLUORO FOR SURGICAL PROCEDUR ESon 04-25-2023 FLUORO FOR SURGICAL PROCEDURES Radiology exam is complete. No Radiologist dictation. Please follow up with ordering provider. Final result Normal [facility] Guidance-- during surgeryon 04-25-2023 Radiology exam is complete. No Radiologist dictation. Please follow up with ordering provider. [facility] RIS CONSOLIDATED POC Glucose Fingerstickon Glucose [Mass/Vol] 305 mg/dL High 65 - 105 mg/dL [facility] Interpretation and review of laboratory results Abnormal [facility] Glucose [Mass/Vol] 362 mg/dL High 65 - 105 mg/dL [facility] Interpretation and review of laboratory results Abnormal [facility] Surgical Pathology Reporton 04-25-2023 Surgical Pathology Report (NOTE) Path Number: [id number] -- Diagnosis -- A. DUODENUM, BIOPSY: -SMALL INTESTINAL MUCOSA WITH A NORMAL VILLOUS ARCHITECTURE AND NO FEATURES OF CELIAC DISEASE. B. STOMACH, BIOPSY: -GASTRIC ANTRAL MUCOSA WITH PATCHY MILD TO MODERATE CHRONIC INACTIVE GASTRITIS. -H. PYLORI STAIN IS NEGATIVE. CONTROL REACTS EXPECTED. C. ESOPHAGUS, Z-LINE, BIOPSY: -SQUAMOUS MUCOSA WITH ULCERATION. -PAS STAIN IS NEGATIVE FOR FUNGAL ORGANISMS. CONTROL REACTS EXPECTED. -NEGATIVE FOR CARCINOMA AND VIRAL INCLUSIONS. Aditya Good M.D. Electronically Signed Out naida04/27/2023 Clinical Information Pre-Op Diagnosis: OBSTRUCTIVE JAUNDICE; PANCREATIC MASS Operative Findings: DUODENAL BIOPSY; GASTRIC BIOPSY; IRREGULAR Z LINE BIOPSY; PANCREATIC HEAD MASS IN CYTOLYTE; LEFT ADRENAL GLAND MASS IN CYTOLYTE; BILIARY BRUSHING IN CYTOLYTE Operation Performed: EGD WITH BIOPSY ENDOSCOPIC ULTRASOUND WITH PATHOLOGY; ERCP ENDOSCOPIC RETROGRADE CHOLANGIOPANCREATOGRAPHY mj Source of Specimen A: DUODENAL BX B: GASTRIC BIOPSY C: IRREGULAR Z LINE BIOPSY Gross Description A. KARUNA NELSON, DUODENAL BIOPSY Received in formalin are two gilbert-white tissue fragments from 0.2 to 0.3 cm and are 0.5 x 0.2 x 0.1 cm in aggregate. Entirely 1cs. B. KARUNA NELSON, GASTRIC BIOPSY Received in formalin are two gilbert-white tissue fragments from 0.2 to 0.5 cm and are 0.7 x 0.2 x 0.1 cm in aggregate. Entirely 1cs. C. KARUNA NELSON, IRREGULAR Z-LINE BIOPSY Received in formalin is one gilbert-white tissue fragment, 0.5 x 0.2 x 0.2 cm. Entirely 1cs. jj tm Nan Arnold M.D./mj:04/26/2023 Microscopic Description A-C. Microscopic examination performed. H. pylori immunostain performed because no organisms apparent on FARIDEH. C. Pancytokeratin immunostain was performed and reveals no infiltrating malignant epithelial cells. Control reacts as expected. Processing Lab: [address] Interpretation Performed at [place] [address] SURGICAL PATHOLOGY CONSULTATION Patient Name: KARUNA NELSON [facility] Rec: [id number] [facility] ANATOMIC PATHOLOGY [address] [place] [address]. [place] [id number] Normal [facility] Surgical Pathology Report (NOTE) Path Number: [id number] INTERPRETATION FINE NEEDLE ASPIRATION EUS PANCREATIC HEAD MASS: POSITIVE FOR MALIGNANCY. Adenocarcinoma. See comment. FINE NEEDLE ASPIRATION EUS LEFT ADRENAL GLAND MASS: NEGATIVE FOR MALIGNANCY. Benign adrenal cortical tissue. See comment. BRUSHING BILIARY: NEGATIVE FOR MALIGNANCY. Electronically Signed Out Nan Arnold M.D. kmg2/04/28/2023 Comment The FNA of the adrenal gland shows benign adrenal cortical tissue. This could represent an adrenal cortical adenoma or benign adrenal gland. Clinical correlation is recommended. Slides are reviewed by additional pathologists who concur with these diagnostic findings (SS, AG, LF, DS). Source of Specimen: A: FINE NEEDLE ASPIRATION EUS PANCREATIC HEAD MASS B: FINE NEEDLE ASPIRATION EUS LEFT ADRENAL GLAND MASS C: BRUSHING BILIARY Clinical History Obstructive jaundice K83.1. Pancreatic mass K86.89. Gross Description A. PANCREATIC HEAD MASS Specimen received in CytoLyt solution, light red fluid with small white flecks, 1 DQ slide prepared. B. LEFT ADRENAL GLAND MASS Specimen received in CytoLyt solution, light red fluid, 1 DQ slide prepared. C. BILIARY BRUSHING One (1) brush received in CytoLyt solution, colorless fluid. IMMEDIATE EVALUATION: Evaluation episode: A. Pancreatic head mass: Atypical cells present. Evaluation episode: B. Left adrenal gland mass: Rare atypical cells present, defer to permanent for final classification. Susan Arnold MD. MICROSCOPIC DESCRIPTION Microscopic examination performed. Pankeratin was performed on blocks A1 and B1 with appropriate control. Pankeratin is positive in A1 and shows patchy focal positivity in B1. Non Lubrication Technician Thin Prep x 1, Diff Quik Slide x 1, Cell Block w/ FARIDEH x 1, Pankeratin, initial x 1 Non Lubrication Technician Thin Prep x 1, Diff Quik Slide x 1, Cell Block w/ FARIDEH x 1, Pankeratin, initial x 1 Non Lubrication Technician Thin Prep x 1, Cell Block w/ FARIDEH x 1 Processing Lab: [address] [id number] Interpretation performed at [address] NONGYNECOLOGICAL CYTOPATHOLOGY CONSULTATION Patient Name: KARUNA NELSON [facility] Rec: [id number] [facility] [email or web address] [facility] ANATOMIC PATHOLOGY [address] [place] [address]. [place], [place] [address] Normal [facility] CBC auto differentialon 04-04 Basophils (Bld) [#/Vol] 0.12 10*3/uL [facility] Basophils/100 WBC (Bld) 1 % 0 - 2 % [facility] Eosinophils (Bld) [#/Vol] 0.40 10*3/uL [facility] Eosinophils/100 WBC (Bld) 4 % 1 - 4 % [facility] Erythrocyte distribution width (RBC) [Ratio] 19.1 % High 11.8 - 14.4 % [facility] Hematocrit (Bld) [Volume fraction] 28.3 % Low 36.3 - 47.1 % [facility] Hemoglobin (Bld) [Mass/Vol] 8.9 g/dL Low 11.9 - 15.1 g/dL [facility] Immature granulocytes (Bld) [#/Vol] 0.07 10*3/uL [facility] Immature granulocytes/100 WBC (Bld) 1 % High 0 [facility] Interpretation and review of laboratory results Abnormal [facility] Lymphocytes/100 WBC (Bld) 14 % Low 24 - 43 % [facility] Lymphocytes/100 WBC (Bld) 1.25 % [facility] MCH (RBC) [Entitic mass] 27.1 pg 25.2 - 33.5 pg [facility] MCHC (RBC) [Mass/Vol] 31.4 g/dL 28.4 - 34.8 g/dL [facility] MCV (RBC) [Entitic vol] 86.3 fL 82.6 - 102.9 fL [facility] Monocytes/100 WBC (Bld) 8 % 3 - 12 % [facility] Monocytes/100 WBC (Bld) 0.70 % [facility] Neutrophils/100 WBC (Bld) 72 % High 36 - 65 % [facility] Nucleated RBC/100 WBC (Bld) [Ratio] 0.0 % 0.0 per 100 WBC [facility] Platelet mean volume (Bld) [Entitic vol] 11.5 fL 8.1 - 13.5 fL [facility] Platelets (Bld) [#/Vol] 305 10*3/uL [facility] RBC (Bld) [#/Vol] 3.28 10*6/uL Low 3.95 - 5.1 1 m/uL [facility] RBC (Bld) [#/Vol] ANISOCYTOSIS PRESENT [facility] Segmented neutrophils/100 WBC (Bld) 6.70 % [facility] WBC other (Bld) [#/Vol] 9.2 [facility] CBC with Diffon 04-24-2023 Abs. Basophil 0.12 k/uL Normal 0.00-0.20 [facility] Comment on above: Performed By: #### H H, BMPX, LIP, LIVP #### [facility] [place] [address] [employer] Coach: Juan Joe MD Abs.Imm.Granulocyte 0.07 k/uL Normal 0.00-0.30 [facility] Comment on above: Performed By: #### H H, BMPX, LIP, LIVP #### [facility] [address] [place] [address] [employer] Coach: Juan Joe MD Abs.Neutrophil (Seg) 6.70 k/uL Normal 1.50-8.10 [facility] Comment on above: Performed By: #### H H, BMPX, LIP, LIVP #### [facility] [address] [place] [address] [employer] Coach: Juan Joe MD Basophils/100 WBC (Bld) 1 % Normal 0-2 [facility] Comment on above: Performed By: #### H H, BMPX, LIP, LIVP #### [facility] [address] [place] [address] [employer] Coach: Juan Joe MD Eosinophils (Bld) [#/Vol] 0.40 10*3/uL Normal 0.00-0.44 [facility] Comment on above: Performed By: #### H H, BMPX, LIP, LIVP #### [facility] [address] [place] [id number] [employer] Coach: Juan Joe MD Eosinophils/100 WBC (Bld) 4 % Normal 1-4 [facility] Comment on above: Performed By: #### H H, BMPX, LIP, LIVP #### [facility] [place] [address] [employer] Coach: Juan Joe MD Erythrocyte distribution width (RBC) [Ratio] 19.1 % High 11.8-14.4 [facility] Comment on above: Performed By: #### H H, BMPX, LIP, LIVP #### [facility] [address] [place] [address]. [place] [address] [employer] Coach: Juan Joe MD Hematocrit (Bld) [Volume fraction] 28.3 % Low 36.3-47.1 [facility] Comment on above: Performed By: #### H H, BMPX, LIP, LIVP #### [facility] [address] [place] [address]. [place] [address] [employer] Coach: Juan Joe MD Hemoglobin (Bld) [Mass/Vol] 8.9 g/dL Low 11.9-15.1 [facility] Comment on above: Performed By: #### H H, BMPX, LIP, LIVP #### [facility] [address] [place] [address]. [place] [address] [employer] Coach: Juan Joe MD Immature granulocytes/100 WBC (Bld) 1 % High 0 [facility] Comment on above: Performed By: #### H H, BMPX, LIP, LIVP #### [facility] [address] [place] [address]. [place] [address] [employer] Coach: Juan Joe MD Lymphocytes (Bld) [#/Vol] 1.25 10*3/uL Normal 1.10-3.70 [facility] Comment on above: Performed By: #### H H, BMPX, LIP, LIVP #### [facility] [address] [place] [address]. [place] [address] [employer] Coach: Juan Joe MD Lymphocytes/100 WBC (Bld) 14 % Low 24-43 [facility] Comment on above: Performed By: #### H H, BMPX, LIP, LIVP #### [facility] [place] [address] [employer] Coach: Juan Joe MD MCH (RBC) [Entitic mass] 27.1 pg Normal 25.2-33.5 [facility] Comment on above: Performed By: #### H H, BMPX, LIP, LIVP #### [facility] [address] [place] [address] [employer] Coach: Juan Joe MD MCHC (RBC) [Mass/Vol] 31.4 g/dL Normal 28.4-34.8 [facility] Comment on above: Performed By: #### H H, BMPX, LIP, LIVP #### [facility] [address] [place] [address] [employer] Coach: Juan Joe MD MCV (RBC) [Entitic vol] 86.3 fL Normal 82.6-102.9 [facility] Comment on above: Performed By: #### H H, BMPX, LIP, LIVP #### [facility] [address] [place] [address] [employer] Coach: Juan Joe MD Monocytes (Bld) [#/Vol] 0.70 10*3/uL Normal 0.10-1.20 [facility] Comment on above: Performed By: #### H H, BMPX, LIP, LIVP #### [facility] [address] [place] [address] [employer] Coach: Juan oJe MD Monocytes/100 WBC (Bld) 8 % Normal 3-12 [facility] Comment on above: Performed By: #### H H, BMPX, LIP, LIVP #### [facility] [address] [place] [address] [employer] Coach: Juan Joe MD Neutrophil (Seg) 72 % High 36-65 [facility] Comment on above: Performed By: #### H H, BMPX, LIP, LIVP #### [facility] [place] [address] [employer] Coach: Juan Joe MD NRBC Automated 0.0 per 100 WBC Normal 0.0 [facility] Comment on above: Performed By: #### H H, BMPX, LIP, LIVP #### [facility] [address] [employer] Coach: Juan Joe MD Platelet mean volume (Bld) [Entitic vol] 11.5 fL Normal 8.1-13.5 [facility] Comment on above: Performed By: #### H H, BMPX, LIP, LIVP #### [facility] [address] [place] [address]. [place] [address] [employer] Coach: Juan Joe MD Platelets (Bld) [#/Vol] 305 10*3/uL Normal 138-453 [facility] Comment on above: Performed By: #### H H, BMPX, LIP, LIVP #### [facility] [place] [address] [employer] Coach: Juan Joe MD RBC (Bld) [#/Vol] 3.28 10*6/uL Low 3.95-5.11 [facility] Comment on above: Performed By: #### H H, BMPX, LIP, LIVP #### [facility] [place] [address] [employer] Coach: Juan Joe MD RBC morphology finding Nom (Bld) ANISOCYTOSIS PRESENT Normal [facility] Comment on above: Performed By: #### H H, BMPX, LIP, LIVP #### [facility] [address] [place], [place] [id number] [employer] Coach: Juan Joe MD WBC (Bld) [#/Vol] 9.2 10*3/uL Normal 3.5-11.3 [facility] Comment on above: Performed By: #### H H, BMPX, LIP, LIVP #### [facility] [address] [place] [address] Middle School Coach: Juan Joe MD CT Chest and Abdomen and Pel vis W contrast Yusra 04-24-2023 1. There is a vague ill-defined hypoenhancing area at the pancreatic head corresponding to the finding on the earlier MRI. This is concerning for a primary pancreatic neoplasm. There is moderate intra and extrahepatic ductal dilatation. The pancreatic duct is of normal caliber. As noted in the report for the MRI, follow-up ERCP/EUS recommended for further evaluation. 2. There is a 1.4 cm left adrenal mass. Recommendation below. 3. There is a 1.1 cm mass in the right lower lobe and a 6-7 mm nodule in the left lower lobe. Recommendation below. 4. No other evidence of metastatic disease in the chest, abdomen or pelvis. 5. There is mild grade 1 anterolisthesis of L5 on S1 due to bilateral L5 pars defects. RECOMMENDATIONS: Pathology: 1.4 cm left adrenal mass, probable benign adenoma.Recommend follow-up adrenal washout CT in 1 year. If stable for ? 1 year, no further follow-up imaging.JACR 2017 Nov; 14(8):1038-44, JCAT 2016 Jun-Jul; 40(2):194-200, Urol J spring; 3(2):71-4. Pathology: 11 mm right solid pulmonary nodule.Per Fleischner Society Guidelines, consider a non-contrast Chest CT at 3 months, a PET/CT, or tissue sampling.These guidelines do not apply to immunocompromised patients and patients with cancer. Follow up in patients with significant comorbidities as clinically warranted. For lung cancer screening, adhere to Lung-RADS guidelines. Reference: Radiology. 2017; 284(1):228-43. [facility] RIS CONSOLIDATED EXAMINATION: CT OF THE CHEST, ABDOMEN, AND PELVIS WITH CONTRAST 04/24/2023 8:31 pm TECHNIQUE: CT of the chest, abdomen and pelvis was performed with the administration of intravenous contrast. Multiplanar reformatted images are provided for review. Automated exposure control, iterative reconstruction, and/or weight based adjustment of the mA/kV was utilized to reduce the radiation dose to as low as reasonably achievable. COMPARISON: MRI abdomen with and without contrast/MRCP performed approximately 10 hours earlier. HISTORY: ORDERING SYSTEM PROVIDED HISTORY: Pancreatic mass, obstructive jaundice, incidental pulmonary nodules identified on [employer] PROVIDED HISTORY: Pancreatic mass, obstructive jaundice, incidental pulmonary nodules identified on MRI Reason for Exam: Pancreatic mass, obstructive jaundice, incidental pulmonary nodules identified on MRI FINDINGS: Chest: Mediastinum: No evidence of mediastinal, hilar or axillary lymphadenopathy. Aorta is normal in caliber without acute abnormality. The central airways are clear. Tiny hiatal hernia noted. Lungs/pleura: At the infrahilar anteromedial aspect of the right lower lobe, there is a relatively smooth margined 1.1 cm mass with inferiorly adjacent scarring/retraction. At the lateral aspect of the inferior left lower lobe, the 6-7 mm nodule identified on the earlier MRI is again noted. The lungs otherwise are clear. No pneumothorax or pleural effusion. Soft Tissues/Bones: No acute bone or soft tissue abnormality evident. Abdomen/Pelvis: Organs: There is moderate intra and extrahepatic ductal dilatation. The liver is otherwise unremarkable. The gallbladder is moderately distended and appears to be sludge-filled. There is vague ill-defined mildly hypoenhancing area at the pancreatic head corresponding to the finding on the earlier MRI. There is mild edema in the anteriorly adjacent fatty tissues. The common duct is dilated proximal to this. The pancreatic duct is of normal caliber. The pancreas is otherwise unremarkable. The spleen contains a calcified granuloma but is otherwise unremarkable. The right adrenal gland, left kidney and visualized bilateral ureters are unremarkable. The left adrenal gland is noted for a 1.4 cm mass with a density of 61 Hounsfield units. The right kidney contains 2 small simple cysts not requiring imaging follow-up. GI/Bowel: Stomach and duodenal sweep demonstrate no acute abnormality. There is no evidence of bowel obstruction. No evidence of abnormal bowel wall thickening or distension. The appendix is visualized and is unremarkable. No evidence of acute appendicitis. Pelvis: The bladder and reproductive organs are unremarkable. Peritoneum/Retroperitone um: No evidence of ascites or free air. No evidence of lymphadenopathy. Aorta is normal in caliber. Bones/Soft Tissues: No acute bone or soft tissue abnormality. There is mild grade 1 anterolisthesis of L5 on S1 due to bilateral L5 pars defects. [facility] RIS CONSOLIDATED Poncho Trejo MD - 04/24/2023 EXAMINATION: CT OF THE CHEST, ABDOMEN, AND PELVIS WITH CONTRAST 04/24/2023 8:31 pm TECHNIQUE: CT of the chest, abdomen and pelvis was performed with the administration of intravenous contrast. Multiplanar reformatted images are provided for review. Automated exposure control, iterative reconstruction, and/or weight based adjustment of the mA/kV was utilized to reduce the radiation dose to as low as reasonably achievable. COMPARISON: MRI abdomen with and without contrast/MRCP performed approximately 10 hours earlier. HISTORY: ORDERING SYSTEM PROVIDED HISTORY: Pancreatic mass, obstructive jaundice, incidental pulmonary nodules identified on [employer] PROVIDED HISTORY: Pancreatic mass, obstructive jaundice, incidental pulmonary nodules identified on MRI Reason for Exam: Pancreatic mass, obstructive jaundice, incidental pulmonary nodules identified on MRI FINDINGS: Chest: Mediastinum: No evidence of mediastinal, hilar or axillary lymphadenopathy. Aorta is normal in caliber without acute abnormality. The central airways are clear. Tiny hiatal hernia noted. Lungs/pleura: At the infrahilar anteromedial aspect of the right lower lobe, there is a relatively smooth margined 1.1 cm mass with inferiorly adjacent scarring/retraction. At the lateral aspect of the inferior left lower lobe, the 6-7 mm nodule identified on the earlier MRI is again noted. The lungs otherwise are clear. No pneumothorax or pleural effusion. Soft Tissues/Bones: No acute bone or soft tissue abnormality evident. Abdomen/Pelvis: Organs: There is moderate intra and extrahepatic ductal dilatation. The liver is otherwise unremarkable. The gallbladder is moderately distended and appears to be sludge-filled. There is vague ill-defined mildly hypoenhancing area at the pancreatic head corresponding to the finding on the earlier MRI. There is mild edema in the anteriorly adjacent fatty tissues. The common duct is dilated proximal to this. The pancreatic duct is of normal caliber. The pancreas is otherwise unremarkable. The spleen contains a calcified granuloma but is otherwise unremarkable. The right adrenal gland, left kidney and visualized bilateral ureters are unremarkable. The left adrenal gland is noted for a 1.4 cm mass with a density of 61 Hounsfield units. The right kidney contains 2 small simple cysts not requiring imaging follow-up. GI/Bowel: Stomach and duodenal sweep demonstrate no acute abnormality. There is no evidence of bowel obstruction. No evidence of abnormal bowel wall thickening or distension. The appendix is visualized and is unremarkable. No evidence of acute appendicitis. Pelvis: The bladder and reproductive organs are unremarkable. Peritoneum/Retroperitone um: No evidence of ascites or free air. No evidence of lymphadenopathy. Aorta is normal in caliber. Bones/Soft Tissues: No acute bone or soft tissue abnormality. There is mild grade 1 anterolisthesis of L5 on S1 due to bilateral L5 pars defects. IMPRESSION: 1. There is a vague ill-defined hypoenhancing area at the pancreatic head corresponding to the finding on the earlier MRI. This is concerning for a primary pancreatic neoplasm. There is moderate intra and extrahepatic ductal dilatation. The pancreatic duct is of normal caliber. As noted in the report for the MRI, follow-up ERCP/EUS recommended for further evaluation. 2. There is a 1.4 cm left adrenal mass. Recommendation below. 3. There is a 1.1 cm mass in the right lower lobe and a 6-7 mm nodule in the left lower lobe. Recommendation below. 4. No other evidence of metastatic disease in the chest, abdomen or pelvis. 5. There is mild grade 1 anterolisthesis of L5 on S1 due to bilateral L5 pars defects. RECOMMENDATIONS: Pathology: 1.4 cm left adrenal mass, probable benign adenoma.Recommend follow-up adrenal washout CT in 1 year. If stable for ? 1 year, no further follow-up imaging.JACR 2017 Nov; 14(8):1038-44, JCAT 2016 Jun-Jul; 40(2):194-200, Urol J spring; 3(2):71-4. Pathology: 11 mm right solid pulmonary nodule.Per Fleischner Society Guidelines, consider a non-contrast Chest CT at 3 months, a PET/CT, or tissue sampling.These guidelines do not apply to immunocompromised patients and patients with cancer. Follow up in patients with significant comorbidities as clinically warranted. For lung cancer screening, adhere to Lung-RADS guidelines. Reference: Radiology. 2017; 284(1):228-43. [facility] Radiology Study observation (narrative) [facility] CT Chest and Abdomen and Pel vis W contrast IVOrdered By: Poncho Trejo on 04-24-2023 [facility] Work Phone: Comp Metabolic Pr/rfx MGon 0 04-24-2023 Albumin [Mass/Vol] 3.0 g/dL Low 3.5-5.2 [facility] Comment on above: Performed By: #### N STRAPPING MACHINE TENDER #### [address] [address] [employer] Coach: Mu Roberson MD Alkaline Phos 801 U/L High 35-104 [facility] Comment on above: Performed By: #### N STRAPPING MACHINE TENDER #### [address] [address] [employer] Coach: Mu Roberson MD ALT [Catalytic activity/Vol] 88 U/L High 5-33 [facility] Comment on above: Performed By: #### N STRAPPING MACHINE TENDER #### [address] [address] Middle [employer] Coach: Mu Roberson MD Anion gap [Moles/Vol] 10 mmol/L Normal 9-17 [facility] Comment on above: Performed By: #### N STRAPPING MACHINE TENDER #### [address] [address] Middle [employer] Coach: Mu Roberson MD AST [Catalytic activity/Vol] 56 U/L High <32 [facility] Comment on above: Performed By: #### N STRAPPING MACHINE TENDER #### [address] [address] Middle [employer] Coach: Mu Roberson MD Bilirubin [Mass/Vol] 6.3 mg/dL High 0.3-1.2 [facility] Comment on above: Performed By: #### N STRAPPING MACHINE TENDER #### [address] [address] Middle [employer] Coach: Mu Roberson MD BUN/CRE Ratio 39 High 9-20 [facility] Comment on above: Performed By: #### N STRAPPING MACHINE TENDER #### [address] [address] Middle [employer] Coach: Mu Roberson MD Calcium [Mass/Vol] 8.7 mg/dL Normal 8.6-10.4 [facility] Comment on above: Performed By: #### N STRAPPING MACHINE TENDER #### [address] [address] Middle [employer] Coach: Mu Roberson MD Chloride [Moles/Vol] 105 mmol/L Normal 98-107 [facility] Comment on above: Performed By: #### N STRAPPING MACHINE TENDER #### [address] [address] Middle [employer] Coach: Mu Roberson MD CO2 [Moles/Vol] 15 mmol/L Low 20-31 [facility] Comment on above: Performed By: #### N STRAPPING MACHINE TENDER #### [address] [address] Middle [employer] Coach: Mu Roberson MD Creatinine [Mass/Vol] 0.8 mg/dL Normal 0.5-0.9 [facility] Comment on above: Result Comment: ICTE DMITRIY SPECIMEN Performed By: #### N STRAPPING MACHINE TENDER #### [address] [address] [employer] Coach: Mu Roberson MD GFR/1.73 sq M.predicted among non-blacks MDRD (S/P/Bld) [Vol rate/Area] mL/min/{1.73_m2} Normal >60 [facility] Comment on above: Result Comment: These results are not intended for use in patients <18 years of age. eGFR results are calculated without a race factor using the 2020 CKD-EPI equation. Careful clinical correlation is recommended, particularly when comparing to results calculated using previous equations. The CKD-EPI equation is less accurate in patients with extremes of muscle mass, extra-renal metabolism of creatine, excessive creatine ingestion, or following therapy that affects renal tubular secretion. Performed By: #### N STRAPPING MACHINE TENDER #### [address] [address] [employer] Coach: Mu Roberson MD Glucose [Mass/Vol] 334 mg/dL High 70-99 [facility] Comment on above: Performed By: #### N STRAPPING MACHINE TENDER #### [address] [address] Middle [employer] Coach: Mu Roberson MD Potassium [Moles/Vol] 5.2 mmol/L Normal 3.7-5.3 [facility] Comment on above: Performed By: #### N STRAPPING MACHINE TENDER #### [address] [address] Middle [employer] Coach: Mu Roberson MD Protein [Mass/Vol] 6.1 g/dL Low 6.4-8.3 [facility] Comment on above: Performed By: #### N STRAPPING MACHINE TENDER #### [address] [address] Middle [employer] Coach: Mu Roberson MD Sodium [Moles/Vol] 130 mmol/L Low 135-144 [facility] Comment on above: Performed By: #### N STRAPPING MACHINE TENDER #### [address] [address] Middle [employer] Coach: Mu Roberson MD Urea nitrogen [Mass/Vol] 31 mg/dL High 8-23 [facility] Comment on above: Performed By: #### N STRAPPING MACHINE TENDER #### [address] [address] [employer] Coach: Mu Roberson MD Comprehensive Metabolic Pane l w/ Reflex to MGon 04-24-2023 Albumin [Mass/Vol] 3.0 g/dL Low 3.5 - 5.2 g/dL [facility] ALP [Catalytic activity/Vol] 801 U/L High 35 - 104 U/L [facility] ALT [Catalytic activity/Vol] 88 U/L High 5 - 33 U/L [facility] Anion gap [Moles/Vol] 10 mmol/L 9 - 17 mmol/L [facility] AST [Catalytic activity/Vol] 56 U/L High NINF - 32 U/L [facility] Bilirubin [Mass/Vol] 6.3 mg/dL High 0.3 - 1 .2 mg/dL [facility] Calcium [Mass/Vol] 8.7 mg/dL 8.6 - 10. 4 mg/dL [facility] Chloride [Moles/Vol] 105 mmol/L 98 - 10 7 mmol/L [facility] CO2 [Moles/Vol] 15 mmol/L Low 20 - 31 mmol/L [facility] Creatinine [Mass/Vol] 0.8 mg/dL 0.5 - 0.9 mg/dL [facility] Comment on above: ICTERIC SPECIMEN GFR/1.73 sq M.predicted MDRD (S/P/Bld) [Vol rate/Area] - PINF [facility] Comment on above: These results are not intended for use in patients <18 years of age. eGFR results are calculated without a race factor using the 2020 CKD-EPI equation. Careful clinical correlation is recommended, particularly when comparing to results calculated using previous equations. The CKD-EPI equation is less accurate in patients with extremes of muscle mass, extra-renal metabolism of creatine, excessive creatine ingestion, or following therapy that affects renal tubular secretion. Glucose [Mass/Vol] 334 mg/dL High 70 - 99 mg/dL [facility] Potassium [Moles/Vol] 5.2 mmol/L 3.7 - 5.3 mmol/L [facility] Protein [Mass/Vol] 6.1 g/dL Low 6.4 - 8.3 g/dL [facility] Sodium [Moles/Vol] 130 mmol/L Low 135 - 144 mmol/L [facility] Urea nitrogen [Mass/Vol] 31 mg/dL High 8 - 23 mg/dL [facility] Urea nitrogen/Creatinine [Mass ratio] 39 mg/mg High 9 - 20 [facility] ED Note-Physicianon 04-24-19 ED Note-Physician [id number]#[id number] F Normal [facility] Lipaseon 04-24-2023 Lipase [Catalytic activity/Vol] 238 U/L High 13-60 [facility] Comment on above: Performed By: #### N STRAPPING MACHINE TENDER #### [facility] [place] [address] Middle [employer] Coach: Mu Roberson MD Lipase [Catalytic activity/Vol] 238 U/L High 13 - 60 U/L [facility] MR Abdomen WO and W contrast Yusra 04-24-2023 Radiology Study observation (narrative) [facility] Magnesiumon 04-24-2023 Magnesium [Mass/Vol] 1.9 mg/dL Normal 1.6-2.6 [facility] Comment on above: Performed By: #### N STRAPPING MACHINE TENDER #### [facility] [address] [place] [id number] [employer] Coach: Mu Roberson MD Magnesium [Mass/Vol] 1.9 mg/dL 1.6 - 2 .6 mg/dL [facility] No Panel Informationon 04-24 Interpretation and review of laboratory results Abnormal [facility] POC Glucose Fingerstickon Glucose [Mass/Vol] 307 mg/dL High 65 - 105 mg/dL [facility] Interpretation and review of laboratory results Abnormal [facility] Glucose [Mass/Vol] 341 mg/dL High 65 - 105 mg/dL [facility] Interpretation and review of laboratory results Abnormal [facility] Glucose [Mass/Vol] 330 mg/dL High 65 - 105 mg/dL [facility] Interpretation and review of laboratory results Abnormal [facility] Phosphoruson 04-24-2023 Phosphate [Mass/Vol] 2.4 mg/dL Low 2.6 - 4 .5 mg/dL [facility] Phosphorus, Inorg.on 024 Phosphorus, Inorg. 2.4 mg/dL Low 2.6-4.5 [facility] Comment on above: Performed By: #### N STRAPPING MACHINE TENDER #### [facility] [email or web address] [address] [place] [address] [employer] Coach: Mu Roberson MD RAD - CT Reporton 04-24-2023 RAD - CT Report [id number]#[id number] F Normal [facility] [place] [facility] - CT Report [id number] F Normal [facility] [place] RAD - CT Report [id number]#[id number] Normal [facility] [place] RAD - MISCon 04-24-2023 RAD - MISC [id number] Normal [facility] [place] US GALLBLADDER RUQon 024 US GALLBLADDER RUQ EXAMINATION: RIGHT UPPER QUADRANT ULTRASOUND 04/24/2023 7:05 am COMPARISON: None. HISTORY: ORDERING SYSTEM PROVIDED HISTORY: pain > ?stone TECHNOLOGIST PROVIDED HISTORY: Pain > ?stone FINDINGS: LIVER: Suboptimal visualization secondary to over ribs. Normal echogenicity of the visualized liver without focal mass. Hepatopetal portal venous flow. BILIARY SYSTEM: No cholelithiasis, gallbladder wall thickening, or pericholecystic fluid. Wire Basket Maker reports some pain over the gallbladder/common duct. Common duct measures 16 mm in diameter. RIGHT KIDNEY: 13-14 mm cortical cyst. Otherwise, normal cortical thickness and echogenicity. No hydronephrosis or distinct shadowing intrarenal calculus. PANCREAS: Visualized portions of the pancreas are unremarkable. OTHER: No evidence of right upper quadrant ascites. IMPRESSION: [ 1. Dilated common duct up to 16 mm; no intrahepatic biliary ductal dilation appreciated. Normal sonographic appearance of the gallbladder. Patient reports some pain/tenderness over the region of the gallbladder/common duct. Recommend further evaluation with MRCP or ERCP. 2. Suboptimal visualization of the liver secondary to overlying structures. Interpreted by: Reid Ryan MD Signed by: Reid Ryan MD 04/24/23 Final result Normal [facility] US Gallbladderon 04-24-2023 [ 1. Dilated common duct up to 16 mm; no intrahepatic biliary ductal dilation appreciated. Normal sonographic appearance of the gallbladder. Patient reports some pain/tenderness over the region of the gallbladder/common duct. Recommend further evaluation with MRCP or ERCP. 2. Suboptimal visualization of the liver secondary to overlying structures. [facility] RIS CONSOLIDATED EXAMINATION: RIGHT UPPER QUADRANT ULTRASOUND 04/24/2023 7:05 am COMPARISON: None. HISTORY: ORDERING SYSTEM PROVIDED HISTORY: pain > ?stone TECHNOLOGIST PROVIDED HISTORY: Pain > ?stone FINDINGS: LIVER: Suboptimal visualization secondary to over ribs. Normal echogenicity of the visualized liver without focal mass. Hepatopetal portal venous flow. BILIARY SYSTEM: No cholelithiasis, gallbladder wall thickening, or pericholecystic fluid. Wire Basket Maker reports some pain over the gallbladder/common duct. Common duct measures 16 mm in diameter. RIGHT KIDNEY: 13-14 mm cortical cyst. Otherwise, normal cortical thickness and echogenicity. No hydronephrosis or distinct shadowing intrarenal calculus. PANCREAS: Visualized portions of the pancreas are unremarkable. OTHER: No evidence of right upper quadrant ascites. [facility] CONSOLIDATED Reid Ryan MD - 04/24/2023 EXAMINATION: RIGHT UPPER QUADRANT ULTRASOUND 04/24/2023 7:05 am COMPARISON: None. HISTORY: ORDERING SYSTEM PROVIDED HISTORY: pain > ?stone TECHNOLOGIST PROVIDED HISTORY: Pain > ?stone FINDINGS: LIVER: Suboptimal visualization secondary to over ribs. Normal echogenicity of the visualized liver without focal mass. Hepatopetal portal venous flow. BILIARY SYSTEM: No cholelithiasis, gallbladder wall thickening, or pericholecystic fluid. Wire Basket Maker reports some pain over the gallbladder/common duct. Common duct measures 16 mm in diameter. RIGHT KIDNEY: 13-14 mm cortical cyst. Otherwise, normal cortical thickness and echogenicity. No hydronephrosis or distinct shadowing intrarenal calculus. PANCREAS: Visualized portions of the pancreas are unremarkable. OTHER: No evidence of right upper quadrant ascites. IMPRESSION: [ 1. Dilated common duct up to 16 mm; no intrahepatic biliary ductal dilation appreciated. Normal sonographic appearance of the gallbladder. Patient reports some pain/tenderness over the region of the gallbladder/common duct. Recommend further evaluation with MRCP or ERCP. 2. Suboptimal visualization of the liver secondary to overlying structures. [facility] Radiology Study observation (narrative) [facility] US GallbladderOrdered By: Sherron Ryan on 04-24-2023 [facility] Work Phone: BUN & Creatinineon 4 Creatinine [Mass/Vol] 0.7 mg/dL 0.5 - 0.9 mg/dL [facility] Comment on above: ICTERIC SPECIMEN GFR/1.73 sq M.predicted MDRD (S/P/Bld) [Vol rate/Area] - PINF [facility] Comment on above: These results are not intended for use in patients <18 years of age. eGFR results are calculated without a race factor using the 2020 CKD-EPI equation. Careful clinical correlation is recommended, particularly when comparing to results calculated using previous equations. The CKD-EPI equation is less accurate in patients with extremes of muscle mass, extra-renal metabolism of creatine, excessive creatine ingestion, or following therapy that affects renal tubular secretion. Interpretation and review of laboratory results Abnormal [facility] Urea nitrogen [Mass/Vol] 43 mg/dL High 8 - 23 mg/dL [facility] BUN + Creatinineon 4 Creatinine [Mass/Vol] 0.7 mg/dL Normal 0.5-0.9 [facility] Comment on above: Result Comment: ICTE DMITRIY SPECIMEN Performed By: #### N STRAPPING MACHINE TENDER #### [facility] [email or web address] [address] [place] [id number] [employer] Coach: Mu Roberson MD GFR/1.73 sq M.predicted among non-blacks MDRD (S/P/Bld) [Vol rate/Area] mL/min/{1.73_m2} Normal >60 [facility] Comment on above: Result Comment: These results are not intended for use in patients <18 years of age. eGFR results are calculated without a race factor using the 2020 CKD-EPI equation. Careful clinical correlation is recommended, particularly when comparing to results calculated using previous equations. The CKD-EPI equation is less accurate in patients with extremes of muscle mass, extra-renal metabolism of creatine, excessive creatine ingestion, or following therapy that affects renal tubular secretion. Performed By: #### N STRAPPING MACHINE TENDER #### [employer] [address] [place], [place] [id number] [employer] Coach: Mu Roberson MD Urea nitrogen [Mass/Vol] 43 mg/dL High 8- [facility] Comment on above: Performed By: #### N STRAPPING MACHINE TENDER #### [employer] [address] [place], [place] [id number] [employer] Coach: Mu Roberson MD Procalcitoninon 04-23-2023 Procalcitonin 0.26 ng/mL High 0.00-0.09 [facility] Comment on above: Result Comment: Suspected Sepsis: <0.50 ng/mL Low likelihood of sepsis. 0.50-2.00 ng/mL Increased likelihood of sepsis. Antibiotics encouraged. >2.00 ng/mL High risk of sepsis/shock. Antibiotics strongly encouraged. Suspected Lower Resp Tract Infections: <0.24 ng/mL Low likelihood of bacterial infection. >0.24 ng/mL Increased likelihood of bacterial infection. Antibiotics encouraged. With successful antibiotic therapy, PCT levels should decrease rapidly. (Half-life of 24 to 36 hours.) Procalcitonin values from samples collected within the first 6 hours of systemic infection may still be low. Retesting may be indicated. Values from day 1 and day 4 can be entered into the Change in Procalcitonin Calculator (www.fxwwnq-ssr-pkmhrhldhj.com) to determine the patient's Mortality Risk Prognosis In healthy neonates, plasma Procalcitonin (PCT) concentrations increase gradually after , reaching peak values at about 24 hours of age then decrease to normal values below 0.5 ng/mL by 48-72 hours of age. Performed By: #### N STRAPPING MACHINE TENDER #### [employer] [address] [place], [place] [id number] Middle [employer] Coach: Mu Roberson MD Interpretation and review of laboratory results Abnormal [facility] [employer] Procalcitonin [Mass/Vol] 0.26 ng/mL High 0.00 - 0.09 ng/mL [facility] Comment on above: Suspected Sepsis: <0.50 ng/mL Low likelihood of sepsis. 0.50-2.00 ng/mL Increased likelihood of sepsis. Antibiotics encouraged. >2.00 ng/mL High risk of sepsis/shock. Antibiotics strongly encouraged. Suspected Lower Resp Tract Infections: <0.24 ng/mL Low likelihood of bacterial infection. >0.24 ng/mL Increased likelihood of bacterial infection. Antibiotics encouraged. With successful antibiotic therapy, PCT levels should decrease rapidly. (Half-life of 24 to 36 hours.) Procalcitonin values from samples collected within the first 6 hours of systemic infection may still be low. Retesting may be indicated. Values from day 1 and day 4 can be entered into the Change in Procalcitonin Calculator (www.qdsvzg-jgi-ibosjvyaer.[employer]) to determine the patient's Mortality Risk Prognosis In healthy neonates, plasma Procalcitonin (PCT) concentrations increase gradually after , reaching peak values at about 24 hours of age then decrease to normal values below 0.5 ng/mL by 48-72 hours of age. [facility] Nurse Consultation Noteon Nurse Consultation Note Reason for Visit Brady 2 senor change Assessment/Plan Patient unsure how to take old Brady sensor off and apply new one. This nurse brings up Brady Sensor 2 how to video and has patient watch it. Then this nurse using aeseptic technique removes sensor and places new one on left upper post arm explaining as it is done. Selfridge held over sensor and activates new one. Patient voices understanding, but is unsure if she will be able to do it alone. Patient informed to call office for an appointment when next one is due if she needs help. total time spent with patient 20 minutes. Medications aspirin 81 mg Oral EC Tab, 81 mg= 1 tab(s), Oral, Daily atorvastatin 20 mg Tab, 20 mg= 1 tab(s), Oral, Bedtime, 3 refills clopidogrel 75 mg Tab, 75 mg= 1 tab(s), Oral, Daily, 3 refills Freestyle Brady 2 Flash Glucose Monitoring 14 Day System (Selfridge), See Instructions Freestyle Brady 2 Flash Glucose Monitoring 14 Day System (Sensor), See Instructions, 1 refills furosemide 40 mg Tab, 40 mg= 1 tab(s), Oral, Daily, 3 refills glipiZIDE 10 mg Tab, 10 mg= 1 tab(s), Oral, BID, 3 refills Insulin Lispro KwikPen 100 units/mL injectable solution, 15 unit(s), SubCutaneous, TIDAC Lantus Solostar Pen 100 units/mL subcutaneous solution, See Instructions lisinopril 30 mg Tab, 30 mg= 1 tab(s), Oral, Daily, 3 refills MetFORMIN (Eqv-Glucophage XR) 500 mg oral tablet, extended release, See Instructions metoprolol tartrate 100 mg Tab, 100 mg= 1 tab(s), Oral, BID, 3 refills spironolactone 50 mg Tab, 50 mg= 1 tab(s), Oral, Daily, 3 refills sure comfort pen needle 30 gauge x 5/16, See Instructions Trulicity Pen 0.75 mg/0.5 mL subcutaneous solution, 0.75 mg, SubCutaneous, qWeek, 2 refills Allergies albuterol (Severe) sulfa drugs (Mild) Immunizations Vaccine Date Status Comments influenza virus vaccine, inactivated 01/17/2023 Given influenza virus vaccine, inactivated - Not Given Postpone due to refusal SARS-CoV-2 mRNA (tozinameran 5y-11y) vac - Not Given Postpone due to refusal influenza virus vaccine, inactivated - Not Given Postpone due to refusal SARS-CoV-2 mRNA (tozinameran 5y-11y) vac - Not Given Postpone due to refusal influenza virus vaccine, inactivated 01/16/2020 Recorded influenza virus vaccine, inactivated 01/17/2019 Recorded influenza virus vaccine, inactivated 02/19/2018 Recorded influenza virus vaccine, inactivated 02/03/2017 Recorded diphtheria/pertussis, acel/tetanus adult 07/21/2016 Recorded influenza virus vaccine, inactivated 01/17/2016 Recorded [facility] Insurance Correspondenceon 0 04-07-2023 Insurance Correspondence [id number]#1.00TI FF [facility] Insurance Correspondence [id number]#1.00TI FF [facility] Progress Note-Nurseon 2023 Progress Note-Nurse [id number]#1.00TI FF Normal [facility] Heart and Vascular Office/Cl inic Noteon 03-31-2023 Heart and Vascular Office/Clinic Note Chief Complaint Cardiac Clearance History of Present Illness Karuna Bowling is a 62-year-old female patient recently seen by Dr. Jolly for further evaluation of cardiac murmur, hypertension, shortness of breath. Her history is positive for congestive heart failure, most recent echocardiogram I have shows preserved LV function, she does have mitral valve stenosis and regurgitation deemed is mild on last echo, she has grade 2 diastolic dysfunction. She has nonobstructive CAD per cath in 2020. She has hypertension, hyperlipidemia, diabetes, she is a smoker, obesity. EKG with abnormal ST-T wave, no prior with which to compare. In December Dr. Jolly had ordered an echocardiogram and stress testing and her insurance denied. She is not having symptoms at the time and follow-up in the office was recommended. Patient is now here today for cardiac clearance. Needs foot surgery. Again EKG shows concerning ST-T wave abnormalities. She has dyspnea with minimal exertion, difficult to assess functional capacity as she cannot tolerate activity due to pain in her foot. She tells me she had recent angioplasty of lower extremities, unclear of details as I have no records, with vascular surgery in [place]. Review of Systems PHQ Score Initial Depression Screen Score: 0 SCORE Constitutional: no fever, no chills, no weakness, no fatigue Respiratory: + shortness of breath, no cough, no orthopnea, no wheezing Cardiovascular: no chest pain, no palpitations, no edema Neuro:no dizziness no light headed no syncope Additional ROS info: Except as noted in the above Review of Systems and in the History of Present Illness all other systems have been reviewed and are negative or noncontributory. Physical Exam Vitals & Measurements HR: 58(Peripheral) BP: 124/73 SpO2: 98% HT: 62 in HT: 157 cm WT: 91.6 kg WT: 201.52 lb BMI: 37.16 General: alert, no acute distress Neck: Supple, noJVD nocarotid bruit Cardiovascular: regular rate and rhythm, systolic murmur normal peripheral perfusion Respiratory: Lungs decreased air exchange, respirations non labored Extremities:no edema Neurological: oriented x 4, LOC appropriate for age, sensation equal & normal bilaterally, speech normal Skin: Warm, dry, intact- no rash or concerning lesions Assessment/Plan 1. Abnormal ECG, (R94.31: Abnormal electrocardiogram [ECG] [EKG])ST segment changes on electrocardiogram EKG performed in office is personally reviewed, noted in HPI, and discussed with patient. Recommend updating ischemic evaluation by way of Lexiscan stress testing. 3. Encounter for preoperative assessment for noncoronary cardiac surgery (Z01.810: Encounter for preprocedural cardiovascular examination) Unable to assess patient's functional capacity due to foot limitations. She cannot walk on a treadmill. She has diabetes and is a smoker, known nonobstructive CAD per cath 2 years ago. EKG is abnormal with ST-T wave changes. Tow Feeder had recommended a stress test in December of this year but insurance denied. Will resubmit as she now requires surgery under general anesthesia. 4. CAD in unga artery (I25.10: Atherosclerotic heart disease of unga coronary artery without angina pectoris) CAD with prior cath in 2020. She will continue aspirin 81 mg daily, atorvastatin 20 mg daily, clopidogrel 75 mg daily (recent PTCA of LE), metoprolol titrate 100 mg twice daily, lisinopril 30 mg daily. Recommend obtaining echocardiogram and stress testing. 5. Congestive heart failure (I50.9: Heart failure, unspecified) Patient with history of diastolic heart failure. Appears euvolemic at this time. She should continue furosemide 40 mg daily and Aldactone 50 mg daily. 6. 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 Tow Feeder had ordered echocardiogram but insurance denied. Recommend obtaining repeat echocardiogram to reevaluate her mitral valve disease. 7. Mitral valve insufficiency (I34.0: Nonrheumatic mitral (valve) insufficiency) As above. 8. Diabetes (E11.9: Type 2 diabetes mellitus without complications) Patient is a diabetic, with mild CAD. Recommend obtaining stress testing prior to undergoing general anesthesia. 9. Smoker (F17.200: Nicotine dependence, unspecified, uncomplicated) We strongly recommend to quit tobacco use. Cigarette smoking harms nearly every organ of the body, causes many diseases, and reduces the health of smokers in general. Quitting smoking lowers your risk for smoking-related diseases and can add years to your life. We encourage you to visit www.smokefree.gov access to helpful resources including free telephone support. If you decide on prescription treatment to help you quit, we would be happy to provide these. Portions of this record may have been created with voice recognition artificial intelligence software, specifically [employer], [employer] (more content not included)... [facility] Comment on above: Result Comment: Elec tronically Signed By: Radha DURBIN CNP\.br\Date and Time Signed: 03/31/23 16:40 EST Physician Orderon 03-31-2023 Physician Order [id number]#1.00TI FF [facility] Consent for Treatmenton 03-04 Consent for Treatment [id number]#1.00TIF F [facility] Ambulatory Visit Summaryon 05-25-2022 Ambulatory Visit Summary KARUNA NELSON :1960 Visit Date:03/24/2023 Ambulatory Visit Instructions Your Care Team Attending Physician - Candis Meek Primary Care Physician - Esau Riddle MD This Is Your Medications List Misc Prescription (Freestyle Brady 2 Flash Glucose Monitoring 14 Day System (Selfridge)) Misc Prescription (Freestyle Brady 2 Flash Glucose Monitoring 14 Day System (Sensor)) Misc Prescription (sure comfort pen needle 30 gauge x 5/16) aspirin (aspirin 81 mg Oral EC Tab) atorvastatin (atorvastatin 20 mg Tab) clopidogrel (clopidogrel 75 mg Tab) dulaglutide (Trulicity Pen 0.75 mg/0.5 mL subcutaneous solution) furosemide (furosemide 40 mg Tab) glipiZIDE (glipiZIDE 10 mg Tab) insulin glargine (Lantus Solostar Pen 100 units/mL subcutaneous solution) insulin lispro (Insulin Lispro KwikPen 100 units/mL injectable solution) lisinopril (lisinopril 30 mg Tab) metformin (MetFORMIN (Eqv-Glucophage XR) 500 mg oral tablet, extended release) metoprolol (metoprolol tartrate 100 mg Tab) predniSONE (predniSONE 20 mg Tab) spironolactone (spironolactone 50 mg Tab) Procedures Performed Cardiac catheterization, Surgery. What to do next Scheduled Follow-Up Appointments Monday 1:00 PM EST With: Lui MISTRY, Esau Van Where: [facility] [place] Normal [facility] Nurse Consultation Noteon Nurse Consultation Note Assessment/Plan pt here for instructions on Free style and needing device put on. Pt tolerated well applied to back of left arm. Medications aspirin 81 mg Oral EC Tab, 81 mg= 1 tab(s), Oral, Daily atorvastatin 20 mg Tab, 20 mg= 1 tab(s), Oral, Bedtime, 3 refills clopidogrel 75 mg Tab, 75 mg= 1 tab(s), Oral, Daily, 3 refills Freestyle Brady 2 Flash Glucose Monitoring 14 Day System (Selfridge), See Instructions Freestyle Brady 2 Flash Glucose Monitoring 14 Day System (Sensor), See Instructions furosemide 40 mg Tab, 40 mg= 1 tab(s), Oral, Daily, 3 refills glipiZIDE 10 mg Tab, 10 mg= 1 tab(s), Oral, BID, 3 refills Insulin Lispro KwikPen 100 units/mL injectable solution, 15 unit(s), SubCutaneous, TIDAC Lantus Solostar Pen 100 units/mL subcutaneous solution, See Instructions lisinopril 30 mg Tab, 30 mg= 1 tab(s), Oral, Daily, 3 refills MetFORMIN (Eqv-Glucophage XR) 500 mg oral tablet, extended release, See Instructions metoprolol tartrate 100 mg Tab, 100 mg= 1 tab(s), Oral, BID, 3 refills predniSONE 20 mg Tab spironolactone 50 mg Tab, 50 mg= 1 tab(s), Oral, Daily, 3 refills sure comfort pen needle 30 gauge x 5/16, See Instructions Trulicity Pen 0.75 mg/0.5 mL subcutaneous solution, 0.75 mg, SubCutaneous, qWeek, 2 refills Allergies albuterol (Severe) sulfa drugs (Mild) Immunizations Vaccine Date Status Comments influenza virus vaccine, inactivated 01/17/2023 Given influenza virus vaccine, inactivated - Not Given Postpone due to refusal SARS-CoV-2 mRNA (tozinameran 5y-11y) vac - Not Given Postpone due to refusal influenza virus vaccine, inactivated - Not Given Postpone due to refusal SARS-CoV-2 mRNA ([place] 5y-11y) vac - Not Given Postpone due to refusal influenza virus vaccine, inactivated 01/16/2020 Recorded influenza virus vaccine, inactivated 01/17/2019 Recorded influenza virus vaccine, inactivated 02/19/2018 Recorded influenza virus vaccine, inactivated 02/03/2017 Recorded diphtheria/pertussis, acel/tetanus adult 07/21/2016 Recorded influenza virus vaccine, inactivated 01/17/2016 Recorded Normal [facility] Family Medicine Office/Clini c Noteon 03-23-2023 Family Medicine Office/Clinic Note HPI Staff Karuna is a 62 year old female presenting for follow up DM Acute: needs medical clearance for surgery 03/[address] Minaya Do you have any of the following symptoms? Foot Exam: UTD Eye Exam: UTD Last A1C: 6.9% 06/25/22 Statin: atorvastatin 20mg flu: UTD questions/concerns: having her left great toe removed 03/31/[address] Minaya History of Present Illness Karuna Nelson is a 62-year-old female who presents today for a follow-up evaluation of congestive heart failure. She is accompanied by an adult female. The patient has recently had an angioplasty procedure to clear her vascular pathways. She reports feeling well post-procedure. A surgical intervention on her great toe is scheduled for 03/31/[address] Minaya at [facility]. The patient's blood glucose levels have been reported as unsatisfactory. Her last recorded A1c level was 6.9 percent. She admits to forgetting to monitor her blood glucose levels before her morning meal, but post-lunch readings showed a level of 300 mg/dL. She was administered both types of insulin during her hospital stay. She monitors her blood glucose levels in the morning and sometimes in the afternoon. The patient denies experiencing any chest discomfort or breathing difficulties. She is making efforts to cease smoking. She reports a good state of health and is able to walk without any interruptions. Review of Systems PHQ Score Initial Depression Screen Score: 0 SCORE Physical Exam Vitals & Measurements T: 36.8 ?C(Temporal Artery) HR: 74(Peripheral) RR: 16 BP: 140/66 SpO2: 96% HT: 62 in HT: 157 cm WT: 94.6 kg WT: 208.12 lb BMI: 38.38 General: alert, no acute distress Cardiovascular: regular rate and rhythm, normal peripheral perfusion Respiratory: Lungs CTA, respirations non labored Extremities: no deformity, no trauma. Patient has a wound VAC in. Patient's left foot is in a boot and wrapped. Neurological: oriented x 4, LOC appropriate for age, CN II-XII intact, motor strength equal & normal bilaterally, speech normal Assessment/Plan Total time spent preparing for the encounter, evaluating and assessing the patient, documenting the visit, and ordering appropriate follow-up work was 45 minutes. 1. Congestive heart failure, unspecified HF chronicity, unspecified heart failure type (I50.9: Heart failure, unspecified) No issues at this time. Continue treatment as before. 2. Infection of great toe (L08.9: Local infection of the skin and subcutaneous tissue, unspecified) Discussed with the patient's surgeon. Patient is medically optimized at this time for surgery. Patient is at a moderate risk given peripheral artery disease and diabetes that is uncontrolled. We will continue to monitor and follow up after the surgery. 3. Controlled type 2 diabetes mellitus with other skin complication, without long-term current use of insulin (E11.9: Type 2 diabetes mellitus without complications) Patient was controlled before this infection. We will add a sliding scale insulin. I have given the patient instructions on how to use the sliding scale and we will also do a FreeStyle Brady to help with closer monitoring of the blood sugars. Patient is aware and will follow up as needed. 4. BMI 36.0-36.9,adult (Z68.36: Body mass index [BMI] 36.0-36.9, adult) BMI education given. 5. Class 1 obesity due to excess calories in adult (E66.09: Other obesity due to excess calories) Diet and exercise advised. 6. Smoker (F17.200: Nicotine dependence, unspecified, uncomplicated) Patient is working to wean off smoking. Patient is not short of breath at this time, so we will try to help the patient anyway we can with the smoking. We will see the patient again back in 1 month and then at 3 months for a recheck on blood sugars. The total time spent discussing diabetes optimization and follow-up with the surgeon was 45 minutes. ATTESTATION: Portions of this record may have been created with voice recognition artificial intelligence software, specifically [employer], [employer] and or [employer]. Substitutions may have occurred due to the inherent limitations of voice recognition and artificial intelligence software. Documentation services were performed after patient or guardian consented to allow [employer] to record this visit. PATY adaptive physical education specialist and provider reviewed before signing. PATY: Anette Greenberg. Follow-up No qualifying data available Patient Education BMI for Adults Problem List/Past Medical History Ongoing Allergic eczema Anemia BMI 38.0-38.9,adult Cardiomyopathy due to hypertension, without heart failure Chronic obstructive pulmonary disease Congestive heart failure Controlled type 2 diabetes mellitus with other skin complication, without long-term current use of insulin Diabetic retinopathy HTN (hypertension) Hx of cerebral infarction Hypercholesterolemia Infection of great toe Obesity due to excess calories Smo (more content not included)... Normal [facility] Comment on above: Result Comment: Elec tronically Signed By: Esau Riddle MD\.br\Date and Time Signed: 03/23/23 15:04 EST\.br\Electronically Co-Signed By: Anette Greenberg\.br\Date and Time Co-Signed: 03/22/23 17:40 EST Patient Educationon 03-22-20 23 Patient Education Nutrition BMI for Adults What is BMI? Body mass index (BMI) is a number that is calculated from a person's weight and height. BMI can help estimate how much of a person's weight is composed of fat. BMI does not measure body fat directly. Rather, it is an alternative to procedures that directly measure body fat, which can be difficult and expensive. BMI can help identify people who may be at higher risk for certain medical problems. What are BMI measurements used for? BMI is used as a screening tool to identify possible weight problems. It helps determine whether a person is obese, overweight, a healthy weight, or underweight. BMI is useful for: ? Identifying a weight problem that may be related to a medical condition or may increase the risk for medical problems. ? Promoting changes, such as changes in diet and exercise, to help reach a healthy weight. BMI screening can be repeated to see if these changes are working. How is BMI calculated? BMI involves measuring your weight in relation to your height. Both height and weight are measured, and the BMI is calculated from those numbers. This can be done either in [place] or metric measurements. Note that charts and online BMI calculators are available to help you find your BMI quickly and easily without having to do these calculations yourself. To calculate your BMI in [place] measurements: 1. Measure your weight in pounds (lb). 2. Multiply the number of pounds by 703. ? For example, for a person who weighs 180 lb, multiply that number by 703, which equals 126,540. 3. Measure your height in inches. Then multiply that number by itself to get a measurement called inches squared. ? For example, for a person who is 70 inches tall, the inches squared measurement is 70 inches x 70 inches, which equals 4,900 inches squared. 4. Divide the total from step 2 (number of lb x 703) by the total from step 3 (inches squared): 126,540 ? 4,900 = 25.8. This is your BMI. To calculate your BMI in metric measurements: 1. Measure your weight in kilograms (kg). 2. Measure your height in meters (m). Then multiply that number by itself to get a measurement called meters squared. ? For example, for a person who is 1.75 m tall, the meters squared measurement is 1.75 m x 1.75 m, which is equal to 3.1 meters squared. 3. Divide the number of kilograms (your weight) by the meters squared number. In this example: 70 ? 3.1 = 22.6. This is your BMI. What do the results mean? BMI charts are used to identify whether you are underweight, normal weight, overweight, or obese. The following guidelines will be used: ? Underweight: BMI less than 18.5. ? Normal weight: BMI between 18.5 and 24.9. ? Overweight: BMI between 25 and 29.9. ? Obese: BMI of 30 or above. Keep these notes in mind: ? Weight includes both fat and muscle, so someone with a muscular build, such as an athlete, may have a BMI that is higher than 24.9. In cases like these, BMI is not an accurate measure of body fat. ? To determine if excess body fat is the cause of a BMI of 25 or higher, further assessments may need to be done by a health care provider. ? BMI is usually interpreted in the same way for men and women. Where to find more information For more information about BMI, including tools to quickly calculate your BMI, go to these websites: ? Centers for Disease Control and Prevention: www.cdc.gov ? [place] [employer]: www.heart.org ? National Heart, Lung, and Blood [place]: www.nhlbi.nih.gov Summary ? Body mass index (BMI) is a number that is calculated from a person's weight and height. ? BMI may help estimate how much of a person's weight is composed of fat. BMI can help identify those who may be at higher risk for certain medical problems. ? BMI can be measured using [place] measurements or metric measurements. ? BMI charts are used to identify whether you are underweight, normal weight, overweight, or obese. This information is not intended to replace advice given to you by your health care provider. Make sure you discuss any questions you have with your health care provider. Document Revised: 12/11/2019 Document Reviewed: 10/18/2019 Elsevier Patient Education ? 2022 Elsevier Inc. Normal [facility] A1C with Estimated Average oCsme jeff 03-17-2023 Glucose [Mass/Vol] 212 mg/dL Normal [facility] Comment on above: Order Comment: Rochelle nt Add on Result Comment: PERF ORMED BY: [place] [address] PATHOLOGIST PLASMA TABLE OPERATOR KOREY FRANKS M.D. Performed By: #### A 1C WT eA #### [facility] [address] [place] [address] HbA1c (Bld) [Mass fraction] 9.0 % High 4.3-5.6 [facility] Comment on above: Order Comment: Rochelle morris Add on Result Comment: Incr eased risk for diabetes: 5.7 - 6.4 diabetes: >6.4 glycemic control for adults with diabetes: <7.0 Performed By: #### A 1C WT eA #### [facility] [address] [place] [address] Basic Metabolic Panelon 03-03 Anion gap [Moles/Vol] 11.1 mmol/L Normal 6.0-15.0 [facility] Comment on above: Performed By: #### G LULS #### Point of Care testing , Calcium [Mass/Vol] 8.6 mg/dL Normal 8.6-10.3 [facility] Comment on above: Performed By: #### G LULS #### Point of Care testing , Chloride [Moles/Vol] 104 mmol/L Normal 98-107 [facility] Comment on above: Performed By: #### G LULS #### Point of Care testing , CO2 [Moles/Vol] 22.6 mmol/L Normal 21.0-31.0 [facility] Comment on above: Performed By: #### G LULS #### Point of Care testing , Creatinine [Mass/Vol] 0.91 mg/dL Normal 0.60-1.20 [facility] Comment on above: Performed By: #### G LULS #### Point of Care testing , Creatinine Clr Calc Pharmacy 69.67 [facility] Comment on above: Result Comment: PERF ORMED BY: [facility] [address] [address] PATHOLOGIST PLASMA TABLE OPERATOR KOREY FRANKS M.D. Performed By: #### G LULS #### Point of Care testing , GFR/1.73 sq M.predicted MDRD (S/P/Bld) [Vol rate/Area] mL/min/{1.73_m2} [facility] Comment on above: Performed By: #### G LULS #### Point of Care testing , Glucose [Mass/Vol] 315 mg/dL Significant change up 70-100 [facility] Comment on above: Result Comment: Clio Glucose Reference Range is dependent on time and content of last meal. Glucose of more than 200 mg/dL in a nonstressed, ambulatory subject supports the diagnosis of Diabetes Mellitus. ADA recommended reference range Performed By: #### G LULS #### Point of Care testing , Potassium [Moles/Vol] 4.7 mmol/L Normal 3.5-5.1 [facility] Comment on above: Performed By: #### G LULS #### Point of Care testing , Sodium [Moles/Vol] 133 mmol/L Significant change down 136-145 [facility] Comment on above: Performed By: #### G BENJAMIN #### Point of Care testing , Urea nitrogen [Mass/Vol] 34 mg/dL High 7-25 [facility] Comment on above: Performed By: #### G BENJAMIN #### Point of Care testing , Basophils Auto (Bld) [#/Vol] Ordered By: Luc Vargas on 03-17-2023 Basophils (Bld) [#/Vol] 0.1 10*3/uL 0.0-0.2 [facility] Basophils/100 WBC Auto (Bld) Ordered By: Luc Vargas on 03-17-2023 Basophils/100 WBC (Bld) 0.3 % . [facility] Calcium [Mass/volume] in Ser um or PlasmaOrdered By: Luc Vargas on 03-17-2023 Calcium [Mass/Vol] 8.6 mg/dL 8.6-10.3 [facility] Capillary blood glucose alvin urement by glucometer (mass/volume)Ordered By: Luc Vargas on 03-17-2023 Glucose [Mass/Vol] 290 mg/dL Normal [facility] Comment on above: Random Glucose Refer ence Range is dependent on time and content of last meal. Glucose of more than 200 mg/dL in a nonstressed, ambulatory subject supports the diagnosis of Diabetes Mellitus. Result Comment: [facility] Glucose Reference Range is dependent on time and content of last meal. Glucose of more than 200 mg/dL in a nonstressed, ambulatory subject supports the diagnosis of Diabetes Mellitus. Performed By: #### G BENJAMIN #### Point of Care testing , Carbon dioxide, total [Moles /volume] in Serum or PlasmaOrdered By: Luc Vargas on 03-17-2023 CO2 [Moles/Vol] 22.6 mmol/L 21.0-31.0 [facility] Chloride [Moles/volume] in S gee or PlasmaOrdered By: Luc Vargas on 03-17-2023 Chloride [Moles/Vol] 104 mmol/L 98-107 [facility] Complete Blood Count Auto Di ffon 03-17-2023 Basophils (Bld) [#/Vol] 0.1 10*3/uL Normal 0.0-0.2 [facility] Comment on above: Result Comment: PERF ORMED BY: [facility] [place] [address] PATHOLOGIST PLASMA TABLE OPERATOR KOREY FRANKS M.D. Performed By: #### G LULS #### Point of Care testing , Basophils/100 WBC (Bld) 0.3 % Normal . [facility] Comment on above: Performed By: #### G LULS #### Point of Care testing , Eosinophils (Bld) [#/Vol] 0.0 10*3/uL Normal 0.0-0.45 [facility] Comment on above: Performed By: #### G LULS #### Point of Care testing , Eosinophils/100 WBC (Bld) 0.0 % Normal . [facility] Comment on above: Performed By: #### G LULS #### Point of Care testing , Erythrocyte distribution width (RBC) [Ratio] 16.8 % High 11.9-15.3 [facility] Comment on above: Performed By: #### G LULS #### Point of Care testing , Hematocrit (Bld) [Volume fraction] 32.4 % Low 34.0-46.4 [facility] Comment on above: Performed By: #### G LULS #### Point of Care testing , Hemoglobin (Bld) [Mass/Vol] 10.3 g/dL Low 11.8-15.4 [facility] Comment on above: Performed By: #### G LULS #### Point of Care testing , Lymphocytes (Bld) [#/Vol] 1.1 10*3/uL Normal 1.00-4.8 [facility] Comment on above: Performed By: #### G LULS #### Point of Care testing , Lymphocytes/100 WBC (Bld) 7.0 % Normal . [facility] Comment on above: Performed By: #### G LULS #### Point of Care testing , MCH (RBC) [Entitic mass] 26.5 pg Normal 24.7-34.3 [facility] Comment on above: Performed By: #### Cosme ALEXANDER #### Point of Care testing , MCV (RBC) [Entitic vol] 83.3 fL Normal 80-100 [facility] Comment on above: Performed By: #### Cosme ALEXANDER #### Point of Care testing , Mean Corpuscular HGB Conc 31.9 g/dL Low 32.0-35.0 [facility] Comment on above: Performed By: #### Cosme ALEXANDER #### Point of Care testing , Monocytes (Bld) [#/Vol] 0.6 10*3/uL Normal 0.0-0.8 [facility] Comment on above: Performed By: #### Cosme ALEXANDER #### Point of Care testing , Monocytes/100 WBC (Bld) 4.0 % Normal . [facility] Comment on above: Performed By: #### Cosme ALEXANDER #### Point of Care testing , Neutrophils (Bld) [#/Vol] 14.2 10*3/uL High 1.8-7.7 [facility] Comment on above: Performed By: #### Cosme ALEXANDER #### Point of Care testing , Neutrophils/100 WBC (Bld) 88.7 % Normal . [facility] Comment on above: Performed By: #### Cosme ALEXANDER #### Point of Care testing , NRBC% 0.0 /100{WBC} Normal 0-0.5 [facility] Comment on above: Performed By: #### Cosme ALEXANDER #### Point of Care testing , Platelet mean volume (Bld) [Entitic vol] 8.8 fL Normal 6.3-10.7 [facility] Comment on above: Performed By: #### Cosme ALEXANDER #### Point of Care testing , Platelets (Bld) [#/Vol] 338 10*3/uL Normal 150-450 [facility] Comment on above: Performed By: #### Cosme ALEXANDER #### Point of Care testing , RBC (Bld) [#/Vol] 3.89 10*6/uL Normal 3.60-5.00 [facility] Comment on above: Performed By: #### Cosme ALEXANDER #### Point of Care testing , WBC (Bld) [#/Vol] 16.0 10*3/uL High 3.8-11.6 [facility] Comment on above: Performed By: #### G BENJAMIN #### Point of Care testing , Creatinine [Mass/volume] in Serum or PlasmaOrdered By: Luc Vargas on 03-17-2023 Creatinine [Mass/Vol] 0.91 mg/dL 0.60-1.20 [facility] Eosinophils Auto (Bld) [#/Vo l]Ordered By: Luc Vargas on 03-17-2023 Eosinophils (Bld) [#/Vol] 0.0 10*3/uL 0.0-0.45 [facility] Eosinophils/100 WBC Auto (Bl d)Ordered By: Luc Vargas on 03-17-2023 Eosinophils/100 WBC (Bld) 0.0 % . [facility] Erythrocyte distribution wid th Auto (RBC) [Ratio]Ordered By: Luc Vargas on 03-17-2023 Erythrocyte distribution width (RBC) [Ratio] 16.8 % 11.9-15.3 [facility] Glucose Poct Glucometerson 1 05-18-2022 Commemt1 Glu2: Cleaned Meter Normal [facility] Comment on above: Result Comment: PERF ORMED BY: [facility] [address] [place] [address] PATHOLOGIST PLASMA TABLE OPERATOR KOREY FRANKS M.D. Performed By: #### G BENJAMIN #### Point of Care testing , Glucose [Mass/Vol] 322 mg/dL Normal [facility] Comment on above: Result Comment: Clio Glucose Reference Range is dependent on time and content of last meal. Glucose of more than 200 mg/dL in a nonstressed, ambulatory subject supports the diagnosis of Diabetes Mellitus. Performed By: #### G SARIKALS #### Point of Care testing , Glucose [Mass/volume] in Ser um or PlasmaOrdered By: Luc Vargas on 03-17-2023 Glucose [Mass/Vol] 315 mg/dL 70-100 [facility] Comment on above: Delta: 158 on -1035ADA recommended reference rangeRandom Glucose Reference Range is dependent on time and content of last meal. Glucose of more than 200 mg/dL in a nonstressed, ambulatory subject supports the diagnosis of Diabetes Mellitus. Hematocrit Auto (Bld) [Volum e fraction]Ordered By: Luc Vargas on 03-17-2023 Hematocrit (Bld) [Volume fraction] 32.4 % 34.0-46.4 [facility] Hemoglobin [Mass/volume] in BloodOrdered By: Luc Vargas on 03-17-2023 Hemoglobin (Bld) [Mass/Vol] 10.3 g/dL 11.8-15.4 [facility] Leukocytes [#/volume] correc huey for nucleated erythrocytes in Blood by Automated counOrdered By: Luc Vargas on 03-17-2023 WBC corrected for nucl RBC Auto (Bld) [#/Vol] 16.0 10*3/uL 3.8-11.6 [facility] Lymphocytes Auto (Bld) [#/Vo l]Ordered By: Luc Vargas on 03-17-2023 Lymphocytes (Bld) [#/Vol] 1.1 10*3/uL 1.00-4.8 [facility] Lymphocytes/100 WBC Auto (Bl d)Ordered By: Luc Vargas on 03-17-2023 Lymphocytes/100 WBC (Bld) 7.0 % . [facility] MCH Auto (RBC) [Entitic mass ]Ordered By: Luc Vargas on 03-17-2023 MCH (RBC) [Entitic mass] 26.5 pg 24.7-34.3 [facility] MCHC Auto (RBC) [Mass/Vol]Or dered By: Luc Vargas on 03-17-2023 MCHC (RBC) [Mass/Vol] 31.9 g/dL 32.0-35.0 [facility] MCV Auto (RBC) [Entitic vol] Ordered By: Luc Vargas on 03-17-2023 MCV (RBC) [Entitic vol] 83.3 fL 80-100 [facility] Monocytes Auto (Bld) [#/Vol] Ordered By: Luc Vargas on 03-17-2023 Monocytes (Bld) [#/Vol] 0.6 10*3/uL 0.0-0.8 [facility] Monocytes/100 WBC Auto (Bld) Ordered By: Luc Vargas on 03-17-2023 Monocytes/100 WBC (Bld) 4.0 % . [facility] Neutrophils Auto (Bld) [#/Vo l]Ordered By: Luc Vargas on 03-17-2023 Neutrophils (Bld) [#/Vol] 14.2 10*3/uL 1.8-7.7 [facility] Neutrophils/100 WBC Auto (Bl d)Ordered By: Luc Vargas on 03-17-2023 Neutrophils/100 WBC (Bld) 88.7 % . [facility] No Panel InformationOrdered By: Luc Vargas on 03-17-2023 Bedside Glucose Comment Glu2: cleaned meter [facility] Estimated GFR (CKD-EPI) > 60.0 mL/Min [facility] Pharmacy Creatinine Clearance (Chem 69.67 [facility] Nucleated erythrocytes [Pres ence] in Blood by Automated countOrdered By: Luc Vargas on 03-17-2023 Nucleated RBC Auto Ql (Bld) 0.0 /100{WBC} 0-0.5 [facility] Platelet mean volume Auto (B ld) [Entitic vol]Ordered By: Luc Vargas on 03-17-2023 Platelet mean volume (Bld) [Entitic vol] 8.8 fL 6.3-10.7 [facility] Platelets Auto (Bld) [#/Vol] Ordered By: Luc Vargas on 03-17-2023 Platelets (Bld) [#/Vol] 338 10*3/uL 150-450 [facility] Potassium [Moles/volume] in Serum or PlasmaOrdered By: Luc Vargas on 03-17-2023 Potassium [Moles/Vol] 4.7 mmol/L 3.5-5.1 [facility] RBC Auto (Bld) [#/Vol]Ordere d By: Luc Vargas on 03-17-2023 RBC (Bld) [#/Vol] 3.89 10*6/uL 3.60-5.00 [facility] Serum or plasma anion gap de terminationOrdered By: Luc Vargas on 03-17-2023 Anion gap [Moles/Vol] 11.1 mmol/L 6.0-15.0 [facility] Sodium [Moles/volume] in Ser um or PlasmaOrdered By: Luc Vargas on 03-17-2023 Sodium [Moles/Vol] 133 mmol/L 136-145 [facility] Comment on above: Delta: 141 on -1034 Urea nitrogen [Mass/volume] in Serum or PlasmaOrdered By: Luc Vargas on 03-17-2023 Urea nitrogen [Mass/Vol] 34 mg/dL 7-25 [facility] WBC Auto (Bld) [#/Vol]Ordere d By: Luc Vargas on 03-17-2023 WBC (Bld) [#/Vol] 16.0 10*3/uL 3.8-11.6 [facility] ABO/Rh Retypeon 03-16-2023 ABO/RH Recheck Result Positive Normal [facility] Comment on above: Result Comment: PERF ORMED BY: [facility] [address] [place] [address] PATHOLOGIST PLASMA TABLE OPERATOR KOREY FRANKS M.D. Basic Metabolic Panelon 03-03 Anion gap [Moles/Vol] 11.5 mmol/L Normal 6.0-15.0 [facility] Comment on above: Performed By: #### G LULS #### Point of Care testing , Calcium [Mass/Vol] 9.2 mg/dL Normal 8.6-10.3 [facility] Comment on above: Performed By: #### G LULS #### Point of Care testing , Chloride [Moles/Vol] 108 mmol/L High 98-107 [facility] Comment on above: Performed By: #### G LULS #### Point of Care testing , CO2 [Moles/Vol] 25.8 mmol/L Normal 21.0-31.0 [facility] Comment on above: Performed By: #### G SARIKALS #### Point of Care testing , Creatinine [Mass/Vol] 0.86 mg/dL Normal 0.60-1.20 [facility] Comment on above: Performed By: #### G SARIKALS #### Point of Care testing , Creatinine Clr Calc Pharmacy 73.00 [facility] Comment on above: Result Comment: PERF ORMED BY: [facility] [place] [address] PATHOLOGIST PLASMA TABLE OPERATOR KOREY FRANKS M.D. Performed By: #### G SARIKALS #### Point of Care testing , GFR/1.73 sq M.predicted MDRD (S/P/Bld) [Vol rate/Area] mL/min/{1.73_m2} [facility] Comment on above: Performed By: #### G SARIKALS #### Point of Care testing , Glucose [Mass/Vol] 158 mg/dL High 70-100 [facility] Comment on above: Result Comment: Clio Glucose Reference Range is dependent on time and content of last meal. Glucose of more than 200 mg/dL in a nonstressed, ambulatory subject supports the diagnosis of Diabetes Mellitus. ADA recommended reference range Performed By: #### G SARIKALS #### Point of Care testing , Potassium [Moles/Vol] 4.3 mmol/L Normal 3.5-5.1 [facility] Comment on above: Performed By: #### G SARIKALS #### Point of Care testing , Sodium [Moles/Vol] 141 mmol/L Normal 136-145 [facility] Comment on above: Performed By: #### G SARIKALS #### Point of Care testing , Urea nitrogen [Mass/Vol] 32 mg/dL High 7-25 [facility] Comment on above: Performed By: #### G SARIKALS #### Point of Care testing , Complete Blood Count Auto Di ffon 03-16-2023 Basophils (Bld) [#/Vol] 0.1 10*3/uL Normal 0.0-0.2 [facility] Comment on above: Result Comment: PERF ORMED BY: [place] [address] PATHOLOGIST PLASMA TABLE OPERATOR KOREY FRANKS M.D. Performed By: #### B MP, CBC #### [address] Basophils/100 WBC (Bld) 1.1 % Normal . [facility] Comment on above: Performed By: #### B MP, CBC #### [address] Eosinophils (Bld) [#/Vol] 0.3 10*3/uL Normal 0.0-0.45 [facility] Comment on above: Performed By: #### B MP, CBC #### [address] Eosinophils/100 WBC (Bld) 2.3 % Normal . [facility] Comment on above: Performed By: #### B MP, CBC #### [address] Erythrocyte distribution width (RBC) [Ratio] 17.2 % High 11.9-15.3 [facility] Comment on above: Performed By: #### B MP, CBC #### [address] Hematocrit (Bld) [Volume fraction] 36.5 % Normal 34.0-46.4 [facility] Comment on above: Performed By: #### B MP, CBC #### [place] [address] [place] Hemoglobin (Bld) [Mass/Vol] 12.0 g/dL Normal 11.8-15.4 [facility] Comment on above: Performed By: #### B MP, CBC #### [address] Lymphocytes (Bld) [#/Vol] 1.9 10*3/uL Normal 1.00-4.8 [facility] Comment on above: Performed By: #### B MP, CBC #### [address] Lymphocytes/100 WBC (Bld) 17.5 % Normal . [facility] Comment on above: Performed By: #### B MP, CBC #### [address] MCH (RBC) [Entitic mass] 27.3 pg Normal 24.7-34.3 [facility] Comment on above: Performed By: #### B MP, CBC #### [address] MCV (RBC) [Entitic vol] 82.8 fL Normal 80-100 [facility] Comment on above: Performed By: #### B MP, CBC #### [address] Mean Corpuscular HGB Conc 33.0 g/dL Normal 32.0-35.0 [facility] Comment on above: Performed By: #### B MP, CBC #### [address] Monocytes (Bld) [#/Vol] 0.6 10*3/uL Normal 0.0-0.8 [facility] Comment on above: Performed By: #### B MP, CBC #### [address] Monocytes/100 WBC (Bld) 5.8 % Normal . [facility] Comment on above: Performed By: #### B MP, CBC #### [address] Neutrophils (Bld) [#/Vol] 8.1 10*3/uL High 1.8-7.7 [facility] Comment on above: Performed By: #### B MP, CBC #### [address] Neutrophils/100 WBC (Bld) 73.3 % Normal . [facility] Comment on above: Performed By: #### B MP, CBC #### [address] NRBC% 0.0 /100{WBC} Normal 0-0.5 [facility] Comment on above: Performed By: #### B MP, CBC #### [address] Platelet mean volume (Bld) [Entitic vol] 8.6 fL Normal 6.3-10.7 [facility] Comment on above: Performed By: #### B MP, CBC #### [address] Platelets (Bld) [#/Vol] 354 10*3/uL Normal 150-450 [facility] Comment on above: Performed By: #### B MP, CBC #### [address] RBC (Bld) [#/Vol] 4.40 10*6/uL Normal 3.60-5.00 [facility] Comment on above: Performed By: #### B MP, CBC #### [address] WBC (Bld) [#/Vol] 11.0 10*3/uL Normal 3.8-11.6 [facility] Comment on above: Performed By: #### B MP, CBC #### [address] ECG 12 lead ECGon 03-16-2023 ECG 12 lead ECG [facility] [place] [address] Electrocardiograph Report Signed Patient: Karuna Nelson MR#: [id number] : 1960 Acct:[id number] Age/Sex: 62 / F ADM Date: 03/16/23 Loc: Room: [address] [place] [address] Type: ADM IN Attending Dr: Luc Vargas MD Ordering Provider: Malik Dominguez DO Date of Service: 03/16/23 ECG/ECG 12 lead ECG: pre op Copies to: Test Reason : Blood Pressure : / mmHG Vent. Rate : 061 BPM Atrial Rate : 061 BPM P-R Int : 152 ms QRS Dur : 118 ms QT Int : 468 ms P-R-T Axes : 000 053 -41 degrees QTc Int : 471 ms Normal sinus rhythm Right bundle branch block Inferolateral STT abnormalities Abnormal ECG No previous ECGs available Confirmed by CELSA CHO MD ([id number]) on 03/16/2023 9:42:21 PM Referred By: Electronically Signed By:CELSA CHO MD Transcribed By: MUS Signed By Celsa Cho MD [id number] Normal [facility] Glucose Poct Glucometerson 1 05-17-2022 Glucose [Mass/Vol] 347 mg/dL Normal [facility] Comment on above: Result Comment: [facility] Glucose Reference Range is dependent on time and content of last meal. Glucose of more than 200 mg/dL in a nonstressed, ambulatory subject supports the diagnosis of Diabetes Mellitus. PERFORMED BY: [address] [id number] PATHOLOGIST PLASMA TABLE OPERATOR KOREY FRANKS M.D. Performed By: #### G LULS #### Point of Care testing , Glucose [Mass/Vol] 201 mg/dL Normal [facility] Comment on above: Result Comment: [facility] Glucose Reference Range is dependent on time and content of last meal. Glucose of more than 200 mg/dL in a nonstressed, ambulatory subject supports the diagnosis of Diabetes Mellitus. PERFORMED BY: [address] [place] [address] PATHOLOGIST PLASMA TABLE OPERATOR KOREY FRANKS M.D. Performed By: #### G LULS #### Point of Care testing , Glucose [Mass/Vol] 167 mg/dL Normal [facility] Comment on above: Result Comment: [facility] Glucose Reference Range is dependent on time and content of last meal. Glucose of more than 200 mg/dL in a nonstressed, ambulatory subject supports the diagnosis of Diabetes Mellitus. PERFORMED BY: [facility] [address] [place] [address] PATHOLOGIST PLASMA TABLE OPERATOR KOREY FRANKS M.D. Performed By: #### G LULS #### Point of Care testing , Serafin 03-16-2023 L ---- Specimen: [id number] Received: 03/17/23 Status: HAWK Long Num: [id number] Spec Type: Surgical Subm Dr: Amy Nicole II, MD Tissues: A Plaque - Atheromatous (LT GROIN) Procedures: Slick LYNCH/Argenis L3, Decalcification Age/ Patient Sex Location Account Attending Physician Karuna Nelson 62/F 4N [id number] Luc Vargas MD SPEC NUM: [id number] RECD: 03/17/23 STATUS: HAWK LONG NUM: [id number] STEPH: 03/16/23- SUBM DR: Aym Nicole II, MD ENTERED: 03/17/23 [facility] DR: SPEC TYPE: Surgical DEPT: S ENTERED BY: [id number] RECV BY: [id number] ORDERED: HE, Gross/Micro L3, Decalcification ORDERED: HE, Gross/Micro L3, Decalcification Pathological Diagnosis Plaque, Removal: Atherosclerotic Plaque. Clinical Information PVD with gangrene Gross Description Received in formalin labeled with the patient's name, date of and plaque is a 3.0 x 2.5 x 2.0 cm aggregate of yellow-gilbert membranous tissues with yellow-gilbert, calcified areas on cut section. Natural Gas Engineer are submitted following decalcification in one cassette labeled A1. Microscopic Description One H E slide reviewed. The microscopic examination confirms the diagnosis. CPT Codes 78058, 94158 Specimen: [id number] Received: 03/17/23 Status: [facility] Num: [id number] Spec Type: Surgical Subm Dr: Amy Nicole II, MD Tissues: A Plaque - Atheromatous (LT GROIN) Procedures: HE, Gross/Micro L3, Decalcification Patient: Karuna Nelson [id number] (Continued) Signed (signature on file) Lincoln Deleon MD 03/20/232018 [facility] Type and Screenon 03-16-2023 ABO and Rh group Nom (Bld) Blood group B Rh(D) positive [facility] Comment on above: Order Comment: NO TI ME OF DRAW ON TUBE. 2 SETS OF INITIALS 'CL' ON TUBE. SHIRLEY/RN WHO LANCE PATIENT SAID SHE LANCE SAMPLE AT 1035. [facility] Result Comment: PERF ORMED BY: [place] [address] PATHOLOGIST PLASMA TABLE OPERATOR KOREY FRANKS M.D. Blood Urea Nitrogenon 2022 Urea nitrogen [Mass/Vol] 23 mg/dL Normal 7-25 [facility] Comment on above: Order Comment: STAT FOR SPECIALS Performed By: #### B KARAN, CREAT #### [facility] [address] [place] [address] [place] Creatinineon 03-01-2023 Creatinine [Mass/Vol] 0.85 mg/dL Normal 0.60-1.20 [facility] Comment on above: Order Comment: STAT FOR SPECIALS Performed By: #### B KARAN, CREAT #### [facility] [address] [place] [id number] [place] Creatinine Clr Calc Pharmacy 73.86 [facility] Comment on above: Order Comment: STAT FOR SPECIALS Result Comment: PERF ORMED BY: [place] [id number] PATHOLOGIST PLASMA TABLE OPERATOR KOREY FRANKS M.D. Performed By: #### B KARAN, CREAT #### [facility] [address] [place] [id number] [place] GFR/1.73 sq M.predicted MDRD (S/P/Bld) [Vol rate/Area] mL/min/{1.73_m2} Normal [facility] Comment on above: Order Comment: STAT FOR SPECIALS Performed By: #### B KARAN, CREAT #### [facility] [address] [place] [address] Creatinine [Mass/volume] in Serum or PlasmaOrdered By: Luc Vargas on 03-01-2023 Creatinine [Mass/Vol] 0.85 mg/dL 0.60-1.20 [facility] No Panel InformationOrdered By: Luc Vargas on 03-01-2023 Estimated GFR (CKD-EPI) > 60.0 mL/Min [facility] Creatinine Clearance (Chem 73.86 [facility] Urea nitrogen [Mass/volume] in Serum or PlasmaOrdered By: Luc Vargas on 03-01-2023 Urea nitrogen [Mass/Vol] 23 mg/dL 10-25 [facility] Heart and Vascular Office/Cl inic Noteon 02-25-2023 Heart and Vascular Office/Clinic Note Chief Complaint here to establish care History of Present Illness Karuna Nelson is a 62-year- old female presents today with a cardiac history of congestive heart failure. She is accompanied by a female adult. Karuna Nelson explains that she has undergone cardiac catheterization twice in [place] and was diagnosed with congestive heart failure. She has also experienced a cerebrovascular accident. She denies requiring a stent or having any arterial blockages and was informed that there were no concerns. She reports having a weakened heart due to congestive heart failure but does not recall the ejection fraction of her heart, which has not been completely normal for 4 to 5 years. She underwent a stress test but has not had an echocardiogram in the past 2 years as she refused to return to her physician. She has not seen her physician since her cardiac catheterization and was referred to a nurse practitioner at [facility], who only attempted to adjust her medication, causing adverse reactions. However, Dr. Mast consistently followed her and restored her medication regimen to its previous state. She has not visited him in some time. She reports having some arterial plaque but not enough to cause concern. The patient reports having an infected foot, which limits her mobility. Despite her medical issues, she still managed to walk to the store, carry the groceries, and occasionally babysitting her grandchildren just to remain active. Review of Systems Constitutional: no fever, no sweats, no weakness Skin: no rash, no lesions, no bruising/petechiae ENMT: no sore throat, no congestion, no hoarseness Respiratory: no shortness of breath, no cough, no orthopnea, no wheezing Cardiovascular: no chest pain, no palpitations, no edema Gastrointestinal: no nausea, no vomiting, no diarrhea, no GI bleeding Genitourinary: no anuria/oliguria no hematuria Musculoskeletal: no back pain, no trauma Neurologic: no headache, no dizziness, no numbness, no weakness Psychiatric: no sleeping problems, no irritability, no anxiety/depression. Heme/Lymph: no bleeding tendency, no bruising tendency Allergy/Immunologic: no recurrent infections, no impaired immunity Additional ROS info: Except as noted in the above Review of Systems and in the History of Present Illness all other systems have been reviewed and are negative or noncontributory Physical Exam Vitals & Measurements HR: 61(Peripheral) BP: 136/62 SpO2: 95% HT: 62 in HT: 157 cm WT: 96.9 kg WT: 213.18 lb BMI: 39.31 General: alert, no acute distress Skin: warm, dry intact Head: atraumatic, normocephalic Neck: trachea midline, no JVD, no bruit Eye: normal conjunctiva, sclera clear ENMT: oral mucosa moist Cardiovascular: regular rate and rhythm, no murmur, normal peripheral perfusion Respiratory: lungs CTA, respirations non labored Chest wall: no deformity. Gastrointestinal: soft, non-distended, no tenderness, no guarding. Back: no tenderness, normal ROM, normal alignment. Extremities: no edema, no deformity, no trauma Neurological: oriented x 4, LOC appropriate for age, sensation equal & normal bilaterally, speech normal Psychiatric: cooperative, affect appropriate for age, normal judgement, normal psychiatric thoughts. Assessment/Plan CHF (congestive heart failure) (I50.9: Heart failure, unspecified) Karuna Nelson is a 62-year-old female with a history of congestive heart failure. I will order an echocardiogram and a stress test. Follow up in 6 weeks. Portions of this record may have been created with voice recognition artificial intelligence software, specifically [employer], [employer] and or [employer]. Substitutions may have occurred with voice recognition and artificial intelligence software. Documentation services were performed after the patient or guardian consented to allow [employer] to record this visit. PATY adaptive physical education specialist and provider reviewed before signing. PATY: Antoinemichael Mikayla. Pasted by: Bacilio Patel Follow-up No qualifying data available Problem List/Past Medical History Ongoing Anemia BMI 39.0-39.9,adult Cardiomyopathy due to hypertension, without heart failure CHF (congestive heart failure) Chronic obstructive pulmonary disease Diabetes Diabetic retinopathy HTN (hypertension) Hx of cerebral infarction Hypercholesterolemia Smoker Historical No qualifying data Procedure/Surgical History Cardiac catheterization. Medications aspirin 81 mg Oral EC Tab, 81 mg= 1 tab(s), Oral, Daily atorvastatin 20 mg Tab, 20 mg= 1 tab(s), Oral, Bedtime, 3 refills clopidogrel 75 mg Tab, 75 mg= 1 tab(s), Oral, Daily, 3 refills furosemide 40 mg Tab, 40 mg= 1 tab(s), Oral, Daily, 3 refills glipiZIDE 10 mg Tab, 10 mg= 1 tab(s), Oral, BID, 3 refills Lantus Solostar Pen 100 units/mL subcutaneous solution, See Instructions lisinopril 30 mg Tab, 30 mg= 1 tab(s), Oral, Daily, 3 refills MetFORMIN (Eqv-Glucop (more content not included)... Normal [facility] Comment on above: Result Comment: Elec tronically Signed By: Rik MISTRY, Felix Vann\.br\Date and Time Signed: 02/25/23 09:59 EST\.br\Electronically Co-Signed By: Bacilio Patel.br\Date and Time Co-Signed: 12/08/22 16:49 EDT US PVR Lower EXT Complete Bi laton 02-01-2023 US PVR Lower EXT Complete Bilat Exam Date/Time: 01/31/2023 12:22 EDT Reason for Exam: I73.9 Report IMPRESSION: SEVERE ARTERIAL STENOTIC DISEASE INVOLVING LEFT LEG ACCORDING TO ANKLE-BRACHIAL BRACHIAL INDICES. LEFT DIGIT PRESSURE NOT EVALUATED SECONDARY TO WOUND AND BANDAGING. MILDLY ABNORMAL TOE BRACHIAL INDEX ON THE RIGHT WITH NORMAL ANKLE-BRACHIAL BRACHIAL INDICES ON THE RIGHT. CLINICAL HISTORY: I73.9. COMMENT: On the right, the brachial systolic pressure is 149 , the high thigh pressure is 186 , the low thigh pressure is 156 , the calf pressure is 163 , the posterior tibial ankle pressure is 159 , the dorsalis pedis ankle pressure is 154 , and the digit pressure is 94. The high thigh-brachial index is 1.22, with normal 1.0 or greater. The ankle-brachial index at the posterior tibial artery is 1.05 and at the dorsalis pedis is 1.01, with normal 1.0 or greater. The toe-brachial index is 0.62, with normal 0.7 or greater. The plethysmography waveforms are mildly abnormal. On the left, the brachial systolic pressure is 152 , the high thigh pressure is 115 , the low thigh pressure is 75, the calf pressure is 69, the posterior tibial ankle pressure is 65, the dorsalis pedis ankle pressure is 52, and the digit pressure is not evaluated secondary to wound and bandaging. The high thigh-brachial index is 0.76, with normal 1.0 or greater. The ankle-brachial index at the posterior tibial artery is 0.43 and at the dorsalis pedis is 0.34, with normal 1.0 or greater. The plethysmography waveforms are moderate to severely abnormal. Ordering Provider: Cole Minaya FINAL REPORT Dictated: 02/01/2023 9:58 am Teodoro Hidalgo MD Signed (Electronic Signature): 02/01/2023 9:58 am Signed by: Teodoro Hidalgo MD Transcribed by: WES Technologist: [facility] Consent for Treatmenton 01-03 Consent for Treatment [id number]#1.00[facility] Physician Orderon 01-30-2023 Physician Order [id number]#1.00[facility] Consultation Noteon 01-26-20 Consultation Note [id number]#1.00[facility] Physician Orderon 01-24-2023 Physician Order [id number]#1.00[facility] Consent for Flu Vaccineon Consent for Flu Vaccine [id number]#1.00[facility] ED Note-Physicianon 01-19-20 ED Note-Physician [id number]#1.00[facility] Physician Referralon 023 Physician Referral [id number]#1.00[facility] Ambulatory Visit Summaryon 1 Ambulatory Visit Summary KARUNA NELSON :1960 Visit Date:01/17/2023 Ambulatory Visit Instructions Your Diagnosis Allergic eczema Controlled type 2 diabetes mellitus with other skin complication, without long-term current use of insulin Infection of great toe Smoker Adult BMI 38.0-38.9 kg/sq m Class 1 obesity due to excess calories in adult Your Care Team Attending Physician - Esau Riddle MD Primary Care Physician - Esau Riddle MD This Is Your Medications List [facility] Prescription (sure comfort pen needle 30 gauge x 08/16) aspirin (aspirin 81 mg Oral EC Tab) atorvastatin (atorvastatin 20 mg Tab) clopidogrel (clopidogrel 75 mg Tab) dulaglutide (Trulicity Pen 0.75 mg/0.5 mL subcutaneous solution) famotidine (Pepcid 40 mg Tab) fexofenadine (fexofenadine 180 mg Tab) furosemide (furosemide 40 mg Tab) glipiZIDE (glipiZIDE 10 mg Tab) insulin glargine (Lantus Solostar Pen 100 units/mL subcutaneous solution) lisinopril (lisinopril 30 mg Tab) metformin (MetFORMIN (Eqv-Glucophage XR) 500 mg oral tablet, extended release) metoprolol (metoprolol tartrate 100 mg Tab) predniSONE (predniSONE 20 mg Tab) predniSONE (predniSONE 20 mg Tab) spironolactone (spironolactone 50 mg Tab) Procedures Performed Cardiac catheterization. Discharge Vitals Temperature (Temporal Artery) 36.5 ?C Heart Rate (Peripheral) 90 Respiratory Rate 18 Blood Pressure 142/70 Height 157 cm Height 62 in Weight 94.6 kg Weight 208.12 lb BMI 38.38 What to do next Scheduled Follow-Up Appointments 2022 2:15 PM EDT With: Rik MISTRY, Felix Vann Where: [facility] Monday 3:00 PM EST With: Lui MISTRY, Esau Van Where: [facility] Family Medicine Office/Clini c Noteon 01-17-2023 Family Medicine Office/Clinic Note HPI Staff Karuna is a 62 year old female presenting for ER follow up ER followup: Hospital: [place] Visit date: week ago Symptoms the patient presented with: rash head to toe, facial swelling, ? allergic reaction then [facility] Saturday 01/13 for the same thing [place] gave her a shot took the swelling down and she hives have started to clear up did rx oral steroids flu: will take today questions/concerns: needs her metformin refilled ( 500mg 2 bid) History of Present Illness - Pt returns for follow up. - NO issues at this time. - Pt states she is improving greatly. Review of Systems PHQ Score Initial Depression Screen Score: 0 Physical Exam Vitals & Measurements T: 36.5 ?C(Temporal Artery) HR: 90(Peripheral) RR: 18 BP: 142/70 SpO2: 96% HT: 62 in HT: 157 cm WT: 94.6 kg WT: 208.12 lb BMI: 38.38 General: alert, no acute distress ENMT: oral mucosa moist, Cardiovascular: regular rate and rhythm, normal peripheral perfusion Respiratory: Lungs CTA, respirations non labored Extremities: no deformity, no trauma Neurological: oriented x 4, LOC appropriate for age, CN II-XII intact, motor strength equal & normal bilaterally, speech normal Abdomen: Soft, Nontender, Non-distended, + BS Integumentary: Redness has greatly improved. Very dry skin. Assessment/Plan 1. Allergic eczema (L23.9: Allergic contact dermatitis, unspecified cause) - Improving - Continue on steroids - Follow up in 3 months to recheck Bps given its elevated possibly 2/2 steroids Ordered: influenza virus vaccine, inactivated, 0.5 mL, Injection, IntraMuscular, Once, Stop date 01/17/23 15:00:00 EDT, Routine, Start date 01/17/23 15:00:00 EDT 2. Controlled type 2 diabetes mellitus with other skin complication, without long-term current use of insulin (E11.628: Type 2 diabetes mellitus with other skin complications) - Will refill meds today. - Follow up in 2 months Ordered: influenza virus vaccine, inactivated, 0.5 mL, Injection, IntraMuscular, Once, Stop date 01/17/23 15:00:00 EDT, Routine, Start date 01/17/23 15:00:00 EDT 3. Infection of great toe (L08.9: Local infection of the skin and subcutaneous tissue, unspecified) - Will refer to [facility] office. Ordered: influenza virus vaccine, inactivated, 0.5 mL, Injection, IntraMuscular, Once, Stop date 01/17/23 15:00:00 EDT, Routine, Start date 01/17/23 15:00:00 EDT 4. Smoker (F17.200: Nicotine dependence, unspecified, uncomplicated) - Please stop smoking Ordered: influenza virus vaccine, inactivated, 0.5 mL, Injection, IntraMuscular, Once, Stop date 01/17/23 15:00:00 EDT, Routine, Start date 01/17/23 15:00:00 EDT 5. Adult BMI 38.0-38.9 kg/sq m (Z68.38: Body mass index [BMI] 38.0-38.9, adult) - BMI education given Ordered: influenza virus vaccine, inactivated, 0.5 mL, Injection, IntraMuscular, Once, Stop date 01/17/23 15:00:00 EDT, Routine, Start date 01/17/23 15:00:00 EDT 6. Class 1 obesity due to excess calories in adult (E66.09: Other obesity due to excess calories) - Discuss diet and exercise Encounter for immunization (Z23: Encounter for immunization) Ordered: FIRST VACCINE w/o Forensic Document Examiner Admin Charge 16337 Orders: metformin, See Instructions, TAKE 2 TABLETS BY MOUTH TWICE A DAY, # 360 tab(s), Refills(s) 0, Pharmacy: [id number]/pharmacy #[id number], 157, cm, 01/17/23 14:04:00 EDT, Height/Length Dosing, 94.6, kg, 01/17/23 14:04:00 EDT, Weight Dosing Follow-up No qualifying data available Problem List/Past Medical History Ongoing Allergic eczema Anemia BMI 38.0-38.9,adult Cardiomyopathy due to hypertension, without heart failure CHF (congestive heart failure) Chronic obstructive pulmonary disease Controlled type 2 diabetes mellitus with other skin complication, without long-term current use of insulin Diabetic retinopathy HTN (hypertension) Hx of cerebral infarction Hypercholesterolemia Infection of great toe Obesity due to excess calories Smoker Historical No qualifying data Procedure/Surgical History Cardiac catheterization. Medications aspirin 81 mg Oral EC Tab, 81 mg= 1 tab(s), Oral, Daily atorvastatin 20 mg Tab, 20 mg= 1 tab(s), Oral, Bedtime, 3 refills clopidogrel 75 mg Tab, 75 mg= 1 tab(s), Oral, Daily, 3 refills fexofenadine 180 mg Tab, 180 mg= 1 tab(s), Oral, Daily furosemide 40 mg Tab, 40 mg= 1 tab(s), Oral, Daily, 3 refills glipiZIDE 10 mg Tab, 10 mg= 1 tab(s), Oral, BID, 3 refills Lantus Solostar Pen 100 units/mL subcutaneous solution, See Instructions lisinopril 30 mg Tab, 30 mg= 1 tab(s), Oral, Daily, 3 refills MetFORMIN (Eqv-Glucophage XR) 500 mg oral tablet, extended release, See Instructions metoprolol tartrate 100 mg Tab, 100 mg= 1 tab(s), Oral, BID, 3 refills Pepcid 40 mg Tab, 40 mg= 1 tab(s), Oral, Once a day (at bedtime) predniSONE 20 mg Tab predniSONE 20 mg Tab, 3, Oral, Daily spironolactone 50 mg Tab, 50 mg= 1 tab(s), Oral, Daily, 3 refills sure comfort pen needle 30 gauge x 5/16, See Instruc (more content not included)... Normal [facility] Comment on above: Result Comment: Elec tronically Signed By: Lui MISTRY, Esau Van\.br\Date and Time Signed: 01/17/23 14:40 EDT ED Note-Physicianon 01-17-20 ED Note-Physician [id number]#1.00TIF F [place] [facility] ED Note-Physicianon 01-15-20 ED Note-Physician Basic Information Time Seen: Cali Sutton PA-C 01/13/2023 15:34 Chief Complaint Pt presents to ED with worsening rash from PCP office. Pt currently on steriod and ATB History of Present Illness A 62-year-old female reports the emergency department with chief complaint of worsening rash. Reports that she saw her by her primary care doctor. States that she is currently on prednisone. States that she was started on Bactrim previously, but then taken off that. She said a rash started after that. States the rash is not going away. Was initially started on antibiotics due to a foot infection. Reports that she has noticed that has slowly gotten better, but does follow-up with podiatry who is following up with this. She states that she is still having a rash, getting around her face now. She denies any wheezing or shortness of breath. Reports that it is itchy. Review of Systems A 10 point review of systems is negative except as noted above. Medical and Surgical History: Reviewed and noted Social history: Lives at home Family History: Reviewed. Tobacco: user Physical Exam Vitals & Measurements T: 36.4 ?C(Oral) HR: 63(Monitored) RR: 18 BP: 144/91 SpO2: 98% HT: 157 cm WT: 95 kg BMI: 38.54 General: The patient appears well and in no apparent distress. Patient is resting comfortably on bed. Afebrile Skin: Warm, dry, no pallor noted. There is a diffuse macular rash with a consistency of hives located throughout the patient's legs, abdomen, and upper extremities. Mild erythema/macular rash noted on the face. There are no oral lesions noted on the mucosal surfaces. No bullae noted. Head: Normocephalic, atraumatic Neck: No JVD Eye: PERRLA, EOMI ENT: Moist mucus membranes Cardiovascular: Regular rate normal peripheral perfusion Respiratory: No respiratory distress no accessory muscle use no obvious audible wheezing Chest Wall: no deformity Musculoskeletal: normal ROM, no deformity, no swelling GI: No obvious distention Neurological: A&O moves all extremities equal strength and symmetry Psychiatric: Cooperative and appropriate Medical Decision Making MEDICAL DECISION MAKING Number and Complexity of Problems Differential Diagnosis: [] [facility] Data External documents reviewed: [] My EKG interpretation: [] My CT interpretation: [] My X-ray interpretation: [] My Ultrasound interpretation: [] Decision rules/scores evaluated: [] Discussed with: [] Treatment and Disposition ED Course: 62-year-old female reports to the emergency department with chief complaint of a rash. Reports this happened after Bactrim was started, not having rash ever since then, without improvement from steroids. On physical exam of the patient, this appears to be a very diffuse erythematous macular rash with the rash Throughout her body. No bolus noted. No concerning signs for John-Denny syndrome at this time. No oral mucosal lesions. Due to her symptoms now, I discussed that with we will start the patient on prednisone 60 mg, for a week. She was also given a shot of Kenalog here in the emergency department this was taken in consideration with written about her steroids. Patient also is to start a strict regimen of Pepcid, Claritin, as well as Benadryl as needed. Patient was understanding. No signs of systemic infection noted. Discussed return precautions with patient. Dr. Gongora also examined the patient, who was agreeable with this decision and plan. I discussed strict return precautions, especially if the rash worsens, or start skin lesions in her mouth. Follow-up with your primary care provider in 3 to 5 days. If symptoms worsen, do not improve, or new symptoms arise please report back to emergency department for further evaluation. The patient was understanding and agreeable to plan moving forward. Shared decision making: [] Code status: [] Assessment/Plan Allergic reaction (T78.40XA: Allergy, unspecified, initial encounter) Urticaria (L50.9: Urticaria, unspecified) Medications Administered Given Kenalog 40 mg Injection, 40 mg, IntraMuscular Disposition Plan Patient Discharge Condition Stable Discharge Disposition To home Discharge Prescription List Prescriptions fexofenadine 180 mg Tab, 180 mg= 1 tab(s), Oral, Daily Pepcid 40 mg Tab, 40 mg= 1 tab(s), Oral, Once a day (at bedtime) predniSONE 20 mg Tab, 3, Oral, Daily Follow-up With When Contact Information Esau Riddle Within 1 to 2 days [address] [place] [address] Business (2) Additional Instructions: Attestation Patient seen and evaluated by the physician credentialing assistant. Attending physician was present in the emergency department and supervised care. This visit was performed by both the physician and an APC. I performed all aspects of the MDM as documented. This report was transcribed using voice recognition software. Every effort was made to ensure accuracy, however, inadvertently computerized transcript (more content not included)... Normal [facility] Comment on above: Result Comment: Elec tronically Signed By: Cali Sutton PA-C\.br\Date and Time Signed: 01/13/23 16:35 EDT\.br\Electronically Co-Signed By: Alejandro Gongora DO\.br\Date and Time Co-Signed: 01/14/23 07:44 EDT Ambulatory Visit Summaryon 1 Ambulatory Visit Summary KARUNA NELSON :1960 Visit Date:01/13/2023 Ambulatory Visit Instructions Your Diagnosis Infection of great toe Allergic eczema Obesity due to excess calories BMI 38.0-38.9,adult Your Care Team Attending Physician - Esau Riddle MD Primary Care Physician - Esau Riddle MD This Is Your Medications List Contact prescribing physician if questions or concerns Misc Prescription (sure comfort pen needle 30 gauge x 5/16) aspirin (aspirin 81 mg Oral EC Tab) atorvastatin (atorvastatin 20 mg Tab) clopidogrel (clopidogrel 75 mg Tab) doxycycline (doxycycline hyclate 100 mg Cap) dulaglutide (Trulicity Pen 0.75 mg/0.5 mL subcutaneous solution) furosemide (furosemide 40 mg Tab) glipiZIDE (glipiZIDE 10 mg Tab) insulin glargine (Lantus Solostar Pen 100 units/mL subcutaneous solution) lisinopril (lisinopril 30 mg Tab) metformin (MetFORMIN (Eqv-Glucophage XR) 500 mg oral tablet, extended release) metoprolol (metoprolol tartrate 100 mg Tab) predniSONE (predniSONE 20 mg Tab) spironolactone (spironolactone 50 mg Tab) Procedures Performed Cardiac catheterization. Discharge Vitals Temperature (Temporal Artery) 36.4 ?C Heart Rate (Peripheral) 65 Respiratory Rate 24 Blood Pressure 142/52 Height 157 cm Height 62 in Weight 95 kg Weight 209 lb BMI 38.54 What to do next Scheduled Follow-Up Appointments Monday 1:00 PM EDT With: Esau Riddle MD Where: [facility] Consent for Treatmenton 01-01 Consent for Treatment [id number] [facility] Discharge Instructionson Discharge Instructions [id number] [facility] ED Clinical Summaryon 2022 ED Clinical Summary (Inserted Image. Esperanza ble to display) [place] [address] ED Clinical Summary Person Information [facility]: [facility] Age[facility] 62 Years : 1960 Sex: Female Language: [place] PCP: Esau Riddle MD Marital Status: Visit Id: Visit Reason: Edema; Rash; RASH Speciality: Acuity: 3 Enc Type: Emergency Med Service: Emergency Arrival: 01/13/2023 13:16:07 Discharge: 01/13/2023 16:18:50 LOS: 000 03:02 Checkin: 01/13/2023 13:16:07 Checkout: 01/13/2023 16:18:50 Dispo Type: Home (Routine DC) EVENTS: Event Name Event Status Request Date/Time Start Date/Time Complete Date/Time Arrive Complete 01/13/2023 13:16:07 01/13/2023 13:16:07 01/13/2023 13:16:07 Document Home Meds Request 01/13/2023 13:16:07 Triage Complete 01/13/2023 13:16:07 01/13/2023 13:28:51 01/13/2023 13:28:51 Registration Complete 01/13/2023 13:20:33 01/13/2023 13:20:33 01/13/2023 13:20:33 Reg Complete Request 01/13/2023 13:20:33 Reg Bed Request Complete 01/13/2023 13:20:33 01/13/2023 13:20:33 01/13/2023 13:20:33 Bed Assign Complete 01/13/2023 15:15:50 01/13/2023 15:15:50 01/13/2023 15:15:50 Dr Exam Complete 01/13/2023 15:15:50 01/13/2023 15:34:25 01/13/2023 15:34:25 RN Exam Complete 01/13/2023 15:15:50 01/13/2023 15:54:29 01/13/2023 15:54:29 Registration Request 01/13/2023 15:34:25 Dr Exam Complete 01/13/2023 15:38:38 01/13/2023 15:38:38 01/13/2023 15:38:38 Meds Admin Complete 01/13/2023 15:59:41 01/13/2023 16:10:14 Discharge Complete 01/13/2023 16:00:18 01/13/2023 16:19:08 01/13/2023 16:19:08 Transfer Complete 01/13/2023 16:19:08 01/13/2023 16:19:08 01/13/2023 16:19:08 ADDRESS: [address] [place] [phone] PHYS DOC NOTES: MEDICAL INFORMATION: Prescriptions Given: New Medications [id number], [address], [place] [id number], [phone] famotidine (Pepcid 40 mg Tab) 1 Tablets By Mouth once a day (at bedtime) for 7 Days. Refills: 0. fexofenadine (fexofenadine 180 mg Tab) 1 Tablets By Mouth every day for 10 Days. Refills: 0. Medications to Continue Taking That Have Changed [id number], [address], [place] [id number], [phone] START: predniSONE (predniSONE 20 mg Tab) 3 By Mouth every day for 4 Days. Refills: 0. Other Medications START: predniSONE (predniSONE 20 mg Tab) for 7 Days. TAKE 1 TABLET BY MOUTH 3 TIMES DAILY X4 DAYS THEN 1 TABLET TWICE DAILY X3 DAYS. Medications to Continue with No Changes Other Medications aspirin (aspirin 81 mg Oral EC Tab) 1 Tablets By Mouth every day. atorvastatin (atorvastatin 20 mg Tab) 1 Tablets By Mouth at bedtime. Refills: 3. clopidogrel (clopidogrel 75 mg Tab) 1 Tablets By Mouth every day. Refills: 3. doxycycline (doxycycline hyclate 100 mg Cap) 1 Capsules By Mouth 2 times a day for 7 Days. dulaglutide (Trulicity Pen 0.75 mg/0.5 mL subcutaneous solution) 0.75 Milligram Subcutaneous every week. Refills: 2. furosemide (furosemide 40 mg Tab) 1 Tablets By Mouth every day. Refills: 3. glipiZIDE (glipiZIDE 10 mg Tab) 1 Tablets By Mouth 2 times a day. Refills: 3. insulin glargine (Lantus Solostar Pen 100 units/mL subcutaneous solution) INJECT 20 UNITS SUBCUTANEOUSLY TWICE A DAY. Refills: 0. lisinopril (lisinopril 30 mg Tab) 1 Tablets By Mouth every day. Refills: 3. metformin (MetFORMIN (Eqv-Glucophage XR) 500 mg oral tablet, extended release) TAKE 2 TABLETS BY MOUTH TWICE A DAY. Refills: 0. metoprolol (metoprolol tartrate 100 mg Tab) 1 Tablets By Mouth 2 times a day. Refills: 3. Misc Prescription (sure comfort pen needle 30 gauge x 5/16) use bid for E10.8. spironolactone (spironolactone 50 mg Tab) 1 Tablets By Mouth every day. Refills: 3. PATIENT EDUCATION INFORMATION: Instructions: Follow up: With: Address: When: Esau Riddle [address] [place] [address] Business (2) Within 1 to 2 days DIAGNOSIS: Allergic reaction; Urticaria Normal [facility] ED Patient Education Noteon 01-13-2023 ED Patient Education Note Normal [facility] ED Patient Summaryon 023 ED Patient Summary (Inserted Image. Esperanza ble to display) [address] [address] Patient Discharge Instructions Person Information Name: KARUNA NELSON Age: 62 Years Arrival Date: 01/13/2023 13:16:07 Discharge Diagnosis: Allergic reaction; Urticaria Primary Care Physician: Esau Riddle MD Provider Information Primary Provider: Alejandro Gongora DO Advanced Ortho Nurse:None The exam and treatment you received in the Emergency Department were for an urgent problem and are not intended as complete care. It is important that you follow up with a doctor, nurse practitioner, or physician?s credentialing assistant for ongoing care. If your symptoms become worse or you do not improve as expected and you are unable to reach your usual health care provider, you should return to the Emergency Department. We are available 24 hours a day. KARUNA NELSON has been given the following list of patient education materials, prescriptions and follow-up instructions: Follow-up Instructions: With: Address: When: Esau Riddle [address] [place] [phone] Business (2) Within 1 to 2 days In the event that this physician does not participate in your insurance network, please consult with your insurance company to find a nearby participating provider. Patient Education Materials: A MESSAGE TO ALL PATIENTS REGARDING OPIOIDS PRESCRIPTION OPIOIDS: WHAT YOU NEED TO KNOW Prescription opioids can be used to help relieve [id number] pain and are often prescribed following a surgery or injury, or for certain health conditions. These medications can be an important part of the treatment but also come with serious risks. It is important to work with your healthcare provider to make sure you are getting the safest, most effective care. WHAT ARE THE RISKS AND SIDE EFFECTS OF OPIOID USE? Prescription opioids carry serious risks of addiction and overdose, especially with prolonged use. An opioid overdose, often marked by slowed breathing, can cause sudden . The use of prescription opioids can have a number of side effects as well, even when taken as directed: ? Tolerance?meaning you might need to take more of the medication for the same pain relief ? Physical dependence?meaning you have symptoms of withdrawal when a medication is stopped ? Increased sensitivity to pain ? Constipation ? Nausea, vomiting, and dry mouth ? Sleepiness and dizziness ? Confusion ? Depression ? Low levels of testosterone that can result in lower sex drive, energy, and strength ? Itching and sweating RISKS ARE GREATER WITH: ? History of drug misuse, substance use disorder, or overdose ? Mental health conditions (such as depression or anxiety) ? Sleep apnea ? Older age (65 years and older) ? Avoid alcohol while taking prescription opioids. Also, unless specifically advised by your health care provider, medications to avoid include: ? Benzodiazepines (such as Xanax or Valium) ? Muscle relaxants (such as Soma or Flexeril) ? Hypnotics (such as Ambien or Lunesta) ? Other prescription opioids KNOW YOUR OPTIONS Talk to your health care provider about ways to manage your pain that don?t involve prescription opioids. Some of these options may actually work better and have fewer risks and side effects. Options may include: ? Pain relievers such as acetaminophen, ibuprofen, and naproxen ? Some medication that are also used for depression or seizures ? Physical therapy and exercise ? Cognitive behavioral therapy, a psychological, goal-directed approach, in which patients learn how to modify physical, behavioral, and emotional triggers of pain and stress. IF YOU ARE PRESCRIBED OPIOIDS FOR PAIN: ? Never take opioids in greater amounts or more often than prescribed. ? Follow up with your primary health care provider. o Work together to create a plan on how to manage your pain. o Talk about ways to help manage your pain that don?t involve prescription opioids. o Talk about any and all concerns and side effects. ? Help prevent misuse and abuse o Never sell or share prescription opioids. o Never use another person?s prescription opioids. ? Store prescription opioids in a secure place and out of reach of others (this may include visitors, children, friends, and family). ? Safely dispose of unused prescription opioids: Find your community drug take-back program or your pharmacy mail-back program, or flush them down the toilet, following guidance from the Food and Drug Administration (www.fda.gov/Drugs/Resou rcesForYou). ? Visit www.cdc.gov/drugoverdose to learn about the risks of opioids abuse and overdose. ? If you believe you may be struggling with addiction, tell your health health care assistant and ask for guidance or call SAMHSA?S National Helpline at 1-353-840-QMWD. v Source: [place] Department of Health and Human Services/Abhijeet (more content not included)... Normal Singh [facility] Medicine Office/Clini c Noteon 01-13-2023 Family Medicine Office/Clinic Note HPI Staff Karuna is a 62 year old female presenting for ER follow up Last OV: 01/02/23 pt was sent to ER for infection of great toe for IV therapy ER followup: [facility]: [facility] Visit date: 01/02 and 01/10 (records requested 01/13/23) Symptoms the patient presented with: Rash on body and face-pt states she was given a cheap laundry soap and used it and this happened to her once before about 10 years ago, she was given a shot and it cleared up. Symptom onset/injury onset: monday night Testing Performed: none New medications: doxycycline and prednisone New specialist involved- none Therapy ordered: none Next appointment date: Current concerns: rash all over History of Present Illness Here for ER follow up. - Pt was seen in the ER for a diffuse rash. Given oral steroids and sent up. Rash has worsened and very itchy. Still taking 60mg of predison. Review of Systems PHQ Score Initial Depression Screen Score: 0 Physical Exam Vitals & Measurements T: 36.4 ?C(Temporal Artery) HR: 65(Peripheral) RR: 24 BP: 142/52 SpO2: 97% HT: 62 in HT: 157 cm WT: 95 kg WT: 209 lb BMI: 38.54 General: alert, no acute distress ENMT: oral mucosa moist, Cardiovascular: normal peripheral perfusion Respiratory: respirations non labored Extremities: no deformity, no trauma Neurological: oriented x 4, LOC appropriate for age, CN II-XII intact, motor strength equal & normal bilaterally, speech normal Abdomen: Soft, Nontender, Non-distended, + BS Left great toe is improving. No more oozing. Diffuse rash noted on the patient's body. Assessment/Plan 1. Infection of great toe (L08.9: Local infection of the skin and subcutaneous tissue, unspecified) Improving follow with podiatry 2. Allergic eczema (L23.9: Allergic contact dermatitis, unspecified cause) - Will send to the ER as the patient has failed OP therapy. 3. Obesity due to excess calories (E66.09: Other obesity due to excess calories) Diet and exercise advised 4. BMI 38.0-38.9,adult (Z68.38: Body mass index [BMI] 38.0-38.9, adult) BMI education given. Follow-up No qualifying data available Patient Education BMI for Adults Problem List/Past Medical History Ongoing Allergic eczema Anemia BMI 38.0-38.9,adult Cardiomyopathy due to hypertension, without heart failure CHF (congestive heart failure) Chronic obstructive pulmonary disease Controlled type 2 diabetes mellitus Diabetic retinopathy HTN (hypertension) Hx of cerebral infarction Hypercholesterolemia Infection of great toe Obesity due to excess calories Smoker Historical No qualifying data Procedure/Surgical History Cardiac catheterization. Medications aspirin 81 mg Oral EC Tab, 81 mg= 1 tab(s), Oral, Daily atorvastatin 20 mg Tab, 20 mg= 1 tab(s), Oral, Bedtime, 3 refills clopidogrel 75 mg Tab, 75 mg= 1 tab(s), Oral, Daily, 3 refills doxycycline hyclate 100 mg Cap, 100 mg= 1 cap(s), Oral, BID furosemide 40 mg Tab, 40 mg= 1 tab(s), Oral, Daily, 3 refills glipiZIDE 10 mg Tab, 10 mg= 1 tab(s), Oral, BID, 3 refills Lantus Solostar Pen 100 units/mL subcutaneous solution, See Instructions lisinopril 30 mg Tab, 30 mg= 1 tab(s), Oral, Daily, 3 refills MetFORMIN (Eqv-Glucophage XR) 500 mg oral tablet, extended release, See Instructions metoprolol tartrate 100 mg Tab, 100 mg= 1 tab(s), Oral, BID, 3 refills predniSONE 20 mg Tab spironolactone 50 mg Tab, 50 mg= 1 tab(s), Oral, Daily, 3 refills sure comfort pen needle 30 gauge x 5/16, See Instructions Trulicity Pen 0.75 mg/0.5 mL subcutaneous solution, 0.75 mg, SubCutaneous, qWeek, 2 refills Allergies albuterol (Severe) sulfa drugs (Mild) Social History Alcohol - Denies Alcohol Use, 08/17/2022 Household alcohol concerns: No., 08/17/2022 Home/Environment Lives with Children., 06/17/2022 Substance Abuse - Denies Substance Abuse, 08/17/2022 Household substance abuse concerns: No., 08/17/2022 Tobacco - High Risk, 08/17/2022 10 or more cigarettes (1/2 pack or more)/day in last 30 days Tobacco Use:. Never Smokeless Tobacco Use:. Cigarettes, Yes, 01/13/2023 Family History Acute myocardial infarction: Father. COPD: Mother. Diabetes mellitus type 1: Father. Immunizations Vaccine Date Status Comments influenza virus vaccine, inactivated - Not Given Postpone due to refusal SARS-CoV-2 mRNA (tozinameran 5y-11y) vac - Not Given Postpone due to refusal influenza virus vaccine, inactivated - Not Given Postpone due to refusal SARS-CoV-2 mRNA (tozinameran 5y-11y) vac - Not Given Postpone due to refusal influenza virus vaccine, inactivated 01/16/2020 Recorded influenza virus vaccine, inactivated 01/17/2019 Recorded influenza virus vaccine, inactivated 02/19/2018 Recorded influenza virus vaccine, inactivated 02/03/2017 Recorded diphtheria/pertussis, acel/tetanus adult 07/21/2016 Recorded influenza virus vaccine, inactivated 01/17/[address] [facility] Comment on above: Result Comment: Elec tronically Signed By: Lui MISTRY, Esau Van\.br\Date and Time Signed: 01/13/23 12:02 EDT Patient Educationon 01-14-20 Patient Education Nutrition BMI for Adults What is BMI? Body mass index (BMI) is a number that is calculated from a person's weight and height. BMI can help estimate how much of a person's weight is composed of fat. BMI does not measure body fat directly. Rather, it is an alternative to procedures that directly measure body fat, which can be difficult and expensive. BMI can help identify people who may be at higher risk for certain medical problems. What are BMI measurements used for? BMI is used as a screening tool to identify possible weight problems. It helps determine whether a person is obese, overweight, a healthy weight, or underweight. BMI is useful for: ? Identifying a weight problem that may be related to a medical condition or may increase the risk for medical problems. ? Promoting changes, such as changes in diet and exercise, to help reach a healthy weight. BMI screening can be repeated to see if these changes are working. How is BMI calculated? BMI involves measuring your weight in relation to your height. Both height and weight are measured, and the BMI is calculated from those numbers. This can be done either in [place] ([place] or metric measurements. Note that charts and online BMI calculators are available to help you find your BMI quickly and easily without having to do these calculations yourself. To calculate your BMI in [place] ([place] measurements: 1. Measure your weight in pounds (lb). 2. Multiply the number of pounds by 703. ? For example, for a person who weighs 180 lb, multiply that number by 703, which equals 126,540. 3. Measure your height in inches. Then multiply that number by itself to get a measurement called inches squared. ? For example, for a person who is 70 inches tall, the inches squared measurement is 70 inches x 70 inches, which equals 4,900 inches squared. 4. Divide the total from step 2 (number of lb x 703) by the total from step 3 (inches squared): 126,540 ? 4,900 = 25.8. This is your BMI. To calculate your BMI in metric measurements: 1. Measure your weight in kilograms (kg). 2. Measure your height in meters (m). Then multiply that number by itself to get a measurement called meters squared. ? For example, for a person who is 1.75 m tall, the meters squared measurement is 1.75 m x 1.75 m, which is equal to 3.1 meters squared. 3. Divide the number of kilograms (your weight) by the meters squared number. In this example: 70 ? 3.1 = 22.6. This is your BMI. What do the results mean? BMI charts are used to identify whether you are underweight, normal weight, overweight, or obese. The following guidelines will be used: ? Underweight: BMI less than 18.5. ? Normal weight: BMI between 18.5 and 24.9. ? Overweight: BMI between 25 and 29.9. ? Obese: BMI of 30 or above. Keep these notes in mind: ? Weight includes both fat and muscle, so someone with a muscular build, such as an athlete, may have a BMI that is higher than 24.9. In cases like these, BMI is not an accurate measure of body fat. ? To determine if excess body fat is the cause of a BMI of 25 or higher, further assessments may need to be done by a health care provider. ? BMI is usually interpreted in the same way for men and women. Where to find more information For more information about BMI, including tools to quickly calculate your BMI, go to these websites: ? Centers for Disease Control and Prevention: www.cdc.gov ? [place] [employer]: www.heart.org ? National Heart, Lung, and Blood [place]: www.nhlbi.nih.gov Summary ? Body mass index (BMI) is a number that is calculated from a person's weight and height. ? BMI may help estimate how much of a person's weight is composed of fat. BMI can help identify those who may be at higher risk for certain medical problems. ? BMI can be measured using [place] measurements or metric measurements. ? BMI charts are used to identify whether you are underweight, normal weight, overweight, or obese. This information is not intended to replace advice given to you by your health care provider. Make sure you discuss any questions you have with your health care provider. Document Revised: 12/11/2019 Document Reviewed: 10/18/2019 [employer] Patient Education ? 2022 [employer]. Normal [facility] Pre-Arrival Noteon Pre-Arrival Note Pre-Arrival Summary Name: Karuna Nelson, Current Date: 01/13/2023 13:19:57 EDT Gender: Female Date of : Age: Pre-Arrival Type: EMS ETA: 01/13/2023 12:30:00 EDT Primary Care Physician: Presenting Problem: Rash Pre-Arrival User: Alejandro Gongora DO Referring Source: Location: ID Completion Date/Time: 01/13/2023 12:00:00 [facility] Emergency Department Pre-Hospital Report Form Vital Signs: toe infection, got Bactrim (allergic), then rash, then prednisone. Pre-Hospital Report: Treatment in Route: Response to Treatment: Misc. Issues: Normal [facility] Family Medicine Office/Clini c Noteon 01-03-2023 Family Medicine Office/Clinic Note HPI Staff Karuna is a 62 year old female presenting for follow up diabetes Added trulicity in November. tolerating the trulicity no side effects Sugars have improved since adding trulicity Do you have any of the following symptoms? Foot Exam: UTD had surgery recently on left great toe Eye Exam: UTD Last A1C: 6.9% 06/25/22 Statin: atorvastatin 20mg flu: refused Questions/Concerns: removed part of the toenail left great toe and finished antbs yesterday but feels it still looks infected. They have to do more surgery but it was infected and he had to stop History of Present Illness Karuna Nelson is a 62-year-old female who presents today for a follow-up evaluation of diabetes. The patient was recently evaluated by Dr. Lowry for a condition affecting her right great toe. Despite completing a course of antibiotics on 01/01/2023, she continues to experience symptoms suggestive of an ongoing infection. She expresses concern about the severity of the infection and believes that additional antibiotic therapy may be necessary. The patient is currently on Trulicity (dulaglutide), a medication for diabetes, which she tolerates well. Her blood glucose levels are well-regulated, typically measuring around 120 mg/dL in the mornings. She notes a slight decrease in her blood glucose levels on , the day she administers her Trulicity dose. However, she manages this by consuming a substantial breakfast, which helps bring her blood glucose levels back to the desired range. Review of Systems PHQ Score Initial Depression Screen Score: 0 Physical Exam Vitals & Measurements T: 36.7 ?C(Oral) HR: 70(Peripheral) RR: 14 BP: 126/52 SpO2: 92% HT: 62 in HT: 157 cm WT: 97.1 kg WT: 213.62 lb BMI: 39.39 General: alert, no acute distress Cardiovascular: regular rate and rhythm, normal peripheral perfusion Respiratory: Lungs CTA, respirations non labored Extremities: no deformity, no trauma. Right toe oozing and swollen and red. Neurological: oriented x 4, LOC appropriate for age, CN II-XII intact, motor strength equal & normal bilaterally, speech normal Assessment/Plan 1. Controlled type 2 diabetes mellitus (E11.9: Type 2 diabetes mellitus without complications) Patient is doing well with Trulicity. We will continue her on that medication at this time. No adjustment is needed as the patient is already well controlled. Encouraged diet and exercise. 2. Infection of great toe (L08.9: Local infection of the skin and subcutaneous tissue, unspecified) Because the patient has failed outpatient therapy, we will send to the ER for IV antibiotic to see if this improves. We will also get some lab work to make sure that she is not having a systemic infection. Patient will follow up with me in [address] Lowry in a week if not sooner depending on what they find in the ER. 3. Smoker (F17.200: Nicotine dependence, unspecified, uncomplicated) 4. BMI 39.0-39.9,adult (Z68.39: Body mass index [BMI] 39.0-39.9, adult) 5. Class 1 obesity due to excess calories in adult (E66.09: Other obesity due to excess calories) Portions of this record may have been created with voice recognition artificial intelligence software, specifically [employer], [employer] and or [employer]. Substitutions may have occurred due to the inherent limitations of voice recognition and artificial intelligence software. Documentation services were performed after patient or guardian consented to allow [employer] to record this visit. PATY adaptive physical education specialist and provider reviewed before signing. PATY: Rigovie Rigor Follow-up No qualifying data available Problem List/Past Medical History Ongoing Anemia BMI 39.0-39.9,adult Cardiomyopathy due to hypertension, without heart failure CHF (congestive heart failure) Chronic obstructive pulmonary disease Controlled type 2 diabetes mellitus Diabetic retinopathy HTN (hypertension) Hx of cerebral infarction Hypercholesterolemia Infection of great toe Smoker Historical No qualifying data Procedure/Surgical History Cardiac catheterization. Medications aspirin 81 mg Oral EC Tab, 81 mg= 1 tab(s), Oral, Daily atorvastatin 20 mg Tab, 20 mg= 1 tab(s), Oral, Bedtime, 3 refills clopidogrel 75 mg Tab, 75 mg= 1 tab(s), Oral, Daily, 3 refills furosemide 40 mg Tab, 40 mg= 1 tab(s), Oral, Daily, 3 refills glipiZIDE 10 mg Tab, 10 mg= 1 tab(s), Oral, BID, 3 refills Lantus Solostar Pen 100 units/mL subcutaneous solution, See Instructions lisinopril 30 mg Tab, 30 mg= 1 tab(s), Oral, Daily, 3 refills MetFORMIN (Eqv-Glucophage XR) 500 mg oral tablet, extended release, See Instructions metoprolol tartrate 100 mg Tab, 100 mg= 1 tab(s), Oral, BID, 3 refills spironolactone 50 mg Tab, 50 mg= 1 tab(s), Oral, Daily, 3 refills sure comfort pen needle 30 gauge x 5/16, See Instructions Trulicity Pen 0.75 mg/0.5 mL subcutaneous solution, 0.75 mg, SubCutaneous, qWeek, 2 refills Allergies (more content not included)... Normal [facility] Comment on above: Result Comment: Elec tronically Signed By: Esau Riddle MD\.br\Date and Time Signed: 01/03/23 11:22 EDT\.br\Electronically Co-Signed By: Mima Davis\.br\Date and Time Co-Signed: 01/02/23 15:14 EDT Ambulatory Visit Summaryon 1 Ambulatory Visit Summary KARUNA NELSON :1960 Visit Date:01/02/2023 Ambulatory Visit Instructions Your Diagnosis Controlled type 2 diabetes mellitus Infection of great toe Your Care Team Attending Physician - Esau Riddle MD. Primary Care Physician - Esau Riddle MD. This Is Your Medications List [facility] Prescription (sure comfort pen needle 30 gauge x 5/16) aspirin (aspirin 81 mg Oral EC Tab) atorvastatin (atorvastatin 20 mg Tab) clopidogrel (clopidogrel 75 mg Tab) dulaglutide (Trulicity Pen 0.75 mg/0.5 mL subcutaneous solution) furosemide (furosemide 40 mg Tab) glipiZIDE (glipiZIDE 10 mg Tab) insulin glargine (Lantus Solostar Pen 100 units/mL subcutaneous solution) lisinopril (lisinopril 30 mg Tab) metformin (MetFORMIN (Eqv-Glucophage XR) 500 mg oral tablet, extended release) metoprolol (metoprolol tartrate 100 mg Tab) spironolactone (spironolactone 50 mg Tab) Procedures Performed Cardiac catheterization. Discharge Vitals Temperature (Oral) 36.7 ?C Heart Rate (Peripheral) 70 Respiratory Rate 14 Blood Pressure 126/52 Height 157 cm Height 62 in Weight 97.1 kg Weight 213.62 lb BMI 39.39 What to do next Scheduled Follow-Up Appointments Monday 1:00 PM EDT With: Esau Riddle MD Where: [facility] Insurance Correspondenceon 0 12-14-2022 Insurance Correspondence [id number]#1.00CD :127 [facility] Insurance Correspondence [id number]#1.00CD :127 [facility] Outside Radiologyon 12-10-19 Outside Radiology [id number]#1.00CD :127 [facility] Physician Orderon 12-09-2022 Physician Order [id number]#1.00CD :127 [facility] Physician Order [id number]#1.00CD :127 [facility] Ambulatory Visit Summaryon 0 12-08-2022 Ambulatory Visit Summary KARUNA NELSON :1960 Visit Date:12/08/2022 Ambulatory Visit Instructions Your Diagnosis CHF (congestive heart failure) Your Care Team Attending Physician - Felix Jolly MD Primary Care Physician - Esau Riddle MD Referring Physician - Esau Riddle MD This Is Your Medications List [facility] Prescription (sure comfort pen needle 30 gauge x 08/16) aspirin (aspirin 81 mg Oral EC Tab) atorvastatin (atorvastatin 20 mg Tab) clopidogrel (clopidogrel 75 mg Tab) dulaglutide (Trulicity Pen 0.75 mg/0.5 mL subcutaneous solution) furosemide (furosemide 40 mg Tab) glipiZIDE (glipiZIDE 10 mg Tab) insulin glargine (Lantus Solostar Pen 100 units/mL subcutaneous solution) lisinopril (lisinopril 30 mg Tab) metformin (MetFORMIN (Eqv-Glucophage XR) 500 mg oral tablet, extended release) metoprolol (metoprolol tartrate 100 mg Tab) spironolactone (spironolactone 50 mg Tab) Procedures Performed Cardiac catheterization. Discharge Vitals Heart Rate (Peripheral) 61 Blood Pressure 136/62 Height 157 cm Height 62 in Weight 96.9 kg Weight 213.18 lb BMI 39.31 What to do next Scheduled Follow-Up Appointments Monday 1:20 PM EDT With: Lui MISTRY, Esau Van Where: [facility] Consent for Treatmenton Consent for Treatment [id number]#1.00CD: 127 Normal [facility] Family [facility] Office/Clini c Noteon 11-16-2022 Family Medicine Office/Clinic Note Chief Complaint follow up diabetes, htn HPI Staff Patient presents for 3 month follow up diabetes and htn Do you have any of the following symptoms? Foot Exam: due Eye Exam: get every 6 weeks due to retinopathy Last A1C: 6.9% June 2022 Microalbumin: none Statin: atorvastatin 20mg Patient is here for follow up on hypertension. How often are you checking your blood pressure? not very often What are your average readings? unsure _ Yearly BMP:june 2022 _ questions/concerns: blood sugars are running high she says every since they changed the metformin from tid to bid it's been high History of Present Illness - Here for follow up. - DM: BS have been elevated, but patient has not been eating well. - NO CHF issues. - Has not checked BPs. Review of Systems PHQ Score Initial Depression Screen Score: 0 Physical Exam Vitals & Measurements T: 37.0 ?C(Oral) HR: 62(Peripheral) RR: 16 BP: 134/62 SpO2: 92% HT: 62 in HT: 157.5 cm WT: 99.5 kg WT: 218.9 lb BMI: 40.11 General: alert, no acute distress ENMT: oral mucosa moist, Cardiovascular: normal peripheral perfusion Respiratory:, respirations non labored Extremities: no deformity, no trauma Neurological: oriented x 4, LOC appropriate for age, CN II-XII intact, motor strength equal & normal bilaterally, speech normal Abdomen: Soft, Nontender, Non-distended, + BS Assessment/Plan 1. CHF (congestive heart failure) (I50.9: Heart failure, unspecified) - Will refer to Dr. Jolly for Cardiology Ordered: [facility] Internal Ambulatory Referral 2. Hypercholesterolemia (E78.00: Pure hypercholesterolemia, unspecified) - Continue meds as before. Ordered: Body Mass Index (BMI) documented 3008F Current tobacco smoker 1034F Depression Screening Negative 3352F [facility] Internal Ambulatory Referral Most recent diastolic blood pressure <80 mm Hg 3078F Systolic BP 130-139 mm Hg (Most Recent) 3075F 3. Diabetes (E11.9: Type 2 diabetes mellitus without complications) - Just at goal. - Will add Trulicity Ordered: Body Mass Index (BMI) documented 3008F Current tobacco smoker 1034F Depression Screening Negative 3352F [facility] Internal Ambulatory Referral Most recent diastolic blood pressure <80 mm Hg 3078F Systolic BP 130-139 mm Hg (Most Recent) 3075F 4. HTN (hypertension) (I10: Essential (primary) hypertension) - At goal - Continue as before Ordered: Body Mass Index (BMI) documented 3008F Current tobacco smoker 1034F Depression Screening Negative 3352F [facility] Internal Ambulatory Referral Most recent diastolic blood pressure <80 mm Hg 3078F Systolic BP 130-139 mm Hg (Most Recent) 3075F 5. Cardiomyopathy in diseases classified elsewhere (I43: Cardiomyopathy in diseases classified elsewhere) - As per number 1. Ordered: Body Mass Index (BMI) documented 3008F Current tobacco smoker 1034F Depression Screening Negative 3352F [facility] Internal Ambulatory Referral Most recent diastolic blood pressure <80 mm Hg 3078F Systolic BP 130-139 mm Hg (Most Recent) 3075F 6. Cardiomyopathy due to hypertension, without heart failure (I11.9: Hypertensive heart disease without heart failure) Per number 1 Ordered: Body Mass Index (BMI) documented 3008F Current tobacco smoker 1034F Depression Screening Negative 3352F Most recent diastolic blood pressure <80 mm Hg 3078F Systolic BP 130-139 mm Hg (Most Recent) 3075F 7. BMI 40.0-44.9, adult (Z68.41: Body mass index [BMI] 40.0-44.9, adult) BMI education Ordered: Body Mass Index (BMI) documented 3008F Current tobacco smoker 1034F Depression Screening Negative 3352F Most recent diastolic blood pressure <80 mm Hg 3078F Systolic BP 130-139 mm Hg (Most Recent) 3075F 8. Smoker (F17.200: Nicotine dependence, unspecified, uncomplicated) - Please stop smoking. Ordered: Body Mass Index (BMI) documented 3008F Current tobacco smoker 1034F Depression Screening Negative 3352F Most recent diastolic blood pressure <80 mm Hg 3078F Systolic BP 130-139 mm Hg (Most Recent) 3075F Orders: dulaglutide, 0.75 mg, SubCutaneous, qWeek, # 4 EA, Refills(s) 2, Pharmacy: [id number]/pharmacy #[id number], 157.5, cm, 11/16/22 13:16:00 EDT, Height/Length Dosing, 99.5, kg, 11/16/22 13:16:00 EDT, Weight Dosing Follow-up No qualifying data available Problem List/Past Medical History Ongoing Anemia BMI 39.0-39.9,adult Cardiomyopathy due to hypertension, without heart failure CHF (congestive heart failure) Chronic obstructive pulmonary disease Diabetes Diabetic retinopathy HTN (hypertension) Hx of cerebral infarction Hypercholesterolemia Smoker Historical No qualifying data Procedure/Surgical History Cardiac catheterization. Medications aspirin 81 mg Oral EC Tab, 81 mg= 1 tab(s), Oral, Daily atorvastatin 20 mg Tab, 20 mg= 1 tab(s), Oral, Bedtime, 3 refills clopidogrel 75 mg Tab, 75 mg= 1 tab(s), Oral, Daily, 3 refills furosemide 40 mg Tab, 40 mg= 1 tab(s), Oral, Daily, 3 ref (more content not included)... [facility] Comment on above: Result Comment: Elec tronically Signed By: Lui MISTRY, Esau Van\.br\Date and Time Signed: 11/16/22 13:53 EDT Physician Referralon 023 Physician Referral [id number]#1.00CD :127 [facility] Outside Diabetes Eye Examon 09-01-2022 Outside Diabetes Eye Exam [id number]#1.00CD: 127 [facility] Ambulatory Visit Summaryon 0 08-17-2022 Ambulatory Visit Summary KARUNA NELSON :1960 Visit Date:08/17/2022 Ambulatory Visit Instructions Your Diagnosis BMI 39.0-39.9,adult Smoker Your Care Team Attending Physician - Esau Riddle MD Primary Care Physician - ELIUD MISTRY, YUNI Tony This Is Your Medications List Misc Prescription (sure comfort pen needle 30 gauge x 5) aspirin (aspirin 81 mg Oral EC Tab) atorvastatin (atorvastatin 20 mg Tab) clopidogrel (clopidogrel 75 mg Tab) furosemide (furosemide 40 mg Tab) glipiZIDE (glipiZIDE 10 mg Tab) insulin glargine (Lantus Solostar Pen 100 units/mL subcutaneous solution) lisinopril (lisinopril 30 mg Tab) metformin (Glucophage XR 500 mg Tab-ER) metoprolol (metoprolol tartrate 100 mg Tab) spironolactone (spironolactone 50 mg Tab) Procedures Performed Cardiac catheterization. Discharge Vitals Heart Rate (Peripheral) 53 Blood Pressure 130/64 Height 157.5 cm Height 62 in Weight 97.1 kg Weight 213.62 lb BMI 39.14 Medications What How Much When Instructions Unchanged aspirin (aspirin 81 mg Oral EC Tab) 1 Tablets By Mouth Every day Unchanged atorvastatin (atorvastatin 20 mg Tab) 1 Tablets By Mouth At bedtime Unchanged clopidogrel (clopidogrel 75 mg Tab) 1 Tablets By Mouth Every day Unchanged furosemide (furosemide 40 mg Tab) 1 Tablets By Mouth Every day Unchanged glipiZIDE (glipiZIDE 10 mg Tab) 1 Tablets By Mouth 2 times a day Unchanged insulin glargine (Lantus Solostar Pen 100 units/ mL subcutaneous solution) See instructions inject 20 units twice daily Unchanged lisinopril (lisinopril 30 mg Tab) 1 Tablets By Mouth Every day Unchanged metformin (Glucophage XR 500 mg Tab-ER) 2 Tablets By Mouth Every day Unchanged metoprolol (metoprolol tartrate 100 mg Tab) 1 Tablets By Mouth 2 times a day Unchanged Misc Prescription (sure comfort pen needle 30 gauge x 5 16) See instructions use bid for E10.8 Unchanged spironolactone (spironolactone 50 mg Tab) 1 Tablets By Mouth Every day Allergies albuterol (Severe) sulfa drugs (Mild) Problems Ongoing - Any problem that you are currently receiving treatment for. Anemia BMI 39.0-39.9,adult Cardiomyopathy due to hypertension, without heart failure Cerebrovascular accident (CVA) CHF (congestive heart failure) Chronic obstructive pulmonary disease Diabetes Diabetic retinopathy HTN (hypertension) Hypercholesterolemia Smoker Normal [facility] Medicine Office/Clini c Noteon 08-17-2022 Family Medicine Office/Clinic Note HPI Staff Karuna is a 61 year old female who presents for a 1 month f/u. Pt's Metformin 1000mg was changed to Glucophage ER 500mg, 2 tablets BID as Metformin was causing pt diarrhea. Patient is here for follow up on Diabetes. How often are you checking your blood sugars? 1 times per day What are your average readings? 95-213 Do you have low blood sugar readings/symptoms? yes if it is low pt gets really lightheaded Do you have high blood sugar readings/symptoms? yes if it is high all pt wants to do is sleep Are you compliant with your diet? Pt reports she has never been given a diet, that she just uses common sense . If she wants a snack at night she will eat 6-7 grapes or 2-3 strawberries for example. Do you exercise? no Are you compliant with your medications? yes Difficulty affording your medications? no Do you have any of the following symptoms? Vision problems? no Sexual dysfunction? no GI-Nausea/vomitting/bloa ting? no Lightheadedness? no Paresthesias, ulcerations or sores? no Lisinopril, aspirin, statin therapy? Yes Foot Exam: never Eye Exam: every 6 weeks, upcoming appt is next week Microalbumin: 0.6 on 06/25/22 A1c: 6.9% on 06/25/22 Pt denies anymore diarrhea since the medication change however she states it has not been keeping her glucose levels in range, they have been elevated. Ranging 95-213. Pt explains they used to be between 70-110. History of Present Illness Karuna Nelson is a 61-year-old female who presents today for a follow-up evaluation of diabetes. Karuna reports that her morning blood sugars have not been as good as they have been. Her blood sugar readings range from 120 mg/dL to 200 mg/dL, and then suddenly it goes back to 100 mg/dL. Her last blood work was in 06/2022. Her A1c was 6.9%. She is feeling alright . She denies diarrhea with the metformin. The patient sees her eye doctor every 6 weeks for injections in her eyes. She has a history of diabetic retinopathy. The patient reports that the [employer] consultant that she was supposed to see left the practice. Review of Systems PHQ Score Initial Depression Screen Score: 0 Physical Exam Vitals & Measurements HR: 53(Peripheral) BP: 130/64 SpO2: 92% HT: 62 in HT: 157.5 cm WT: 97.1 kg WT: 213.62 lb BMI: 39.14 General: alert, no acute distress Cardiovascular: regular rate and rhythm, normal peripheral perfusion Respiratory: diminished breath sounds Extremities: no deformity, no trauma Neurological: oriented x 4, LOC appropriate for age, CN II-XII intact, motor strength equal & normal bilaterally, speech normal Assessment/Plan 1. Chronic obstructive pulmonary disease (J44.9: Chronic obstructive pulmonary disease, unspecified) Encouraged the patient to stop smoking given the history of COPD. We will continue to monitor the patient. 2. Diabetic retinopathy (E11.319: Type 2 diabetes mellitus with unspecified diabetic retinopathy without macular edema) The patient's A1c was at goal at 6.9. The patient is tolerating the metformin much better now that it is the extended release. We will continue to monitor, and we will add labs back in 3 months. Did discuss the use of semaglutide, but the patient is concerned about the caution with diabetic retinopathy. We will look into the reason for the caution. 3. Diabetes (E11.9: Type 2 diabetes mellitus without complications) The patient's A1c was at goal at 6.9. The patient is tolerating the metformin much better now that it is the extended release. We will continue to monitor, and we will add labs back in 3 months. Did discuss the use of semaglutide, but the patient is concerned about the caution with diabetic retinopathy. We will look into the reason for the caution. 4. Hx of cerebral infarction (Z86.73: Personal history of transient ischemic attack (TIA), and cerebral infarction without residual deficits) This diagnosis was cerebral infarct, however, this is now a history of cerebral infarct. This has been changed in the chart. 5. BMI 39.0-39.9,adult (Z68.39: Body mass index [BMI] 39.0-39.9, adult) BMI education given 6. Smoker (F17.200: Nicotine dependence, unspecified, uncomplicated) Encouraged the patient not to smoke We will see the patient back in 3 months. Documentation services were performed after patient or guardian consented to allow [employer] to record this visit. PATY adaptive physical education specialist and provider reviewed before signing. PATY: Angeline Forbes Follow-up No qualifying data available Problem List/Past Medical History Ongoing Anemia BMI 39.0-39.9,adult Cardiomyopathy due to hypertension, without heart failure CHF (congestive heart failure) Chronic obstructive pulmonary disease Diabetes Diabetic retinopathy HTN (hypertension) Hx of cerebral infarction Hypercholesterolemia Smoker Historical No qualifying data Procedure/Surgical History Cardiac catheterization. Medications aspirin 81 mg Oral EC Tab, 81 mg= 1 tab(s), Oral, Daily (more content not included)... Normal [facility] Comment on above: Result Comment: Elec tronically Signed By: Lui MISTRY, Esau Van\.br\Date and Time Signed: 08/17/22 15:50 EDT\.br\Electronically Co-Signed By: Angeline Forbes.br\Date and Time Co-Signed: 08/17/22 14:59 EDT Family Medicine Office/Clini c Noteon 07-21-2022 Family Medicine Office/Clinic Note Chief Complaint bllod sugars are high cut metformin down to 1 a day due diarrhea and it's not controllin the sugars HPI Staff follow up diabetes (metformin was stopped due to diarrhea 06/22/22) Patient is here for follow up on Diabetes. How often are you checking your blood sugars? 2 times per day What are your average readings? OVER 200 Do you have any of the following symptoms? Foot Exam: due Eye Exam: utd sees specialist for diabetic retinopathy Microalbumin: due Last A1C: 6.9% June 2022 Last Chronic Labs: June 2022 questions/concerns: need to get her sugars down History of Present Illness Karuna Nelson is a 60-year-old female who presents today for a follow-up. She is a patient of Dr. Mast. She last saw him 2 to 3 weeks ago. Karuna explains that her metformin was reduced to 1000 mg because she was having diarrhea. She is no longer having diarrhea. Her blood sugar has gone up. She takes glipizide in the morning and at night. She does not have a glucometer. When she came home from [place], her sugar was 400. She does not take the fast-acting insulin. When she was back on full strength metformin, her A1c was 7 or below. Karuna has a history of a stroke. She denies any residuals from that stroke. She has COPD. She is a smoker. She smokes a pack a day. She has never been admitted for her COPD. Karuna explains that she has congestive heart failure. Review of Systems PHQ Score Initial Depression Screen Score: 0 Physical Exam Vitals & Measurements HR: 60(Peripheral) RR: 20 BP: 130/62 SpO2: 95% HT: 62 in HT: 157.48 cm WT: 97.5 kg WT: 214.5 lb BMI: 39.31 General: alert, no acute distress Cardiovascular: regular rate and rhythm, normal peripheral perfusion Respiratory: Diminished breath sounds, expiratory wheezing noted in the bilateral bases. Extremities: no deformity, no trauma Neurological: oriented x 4, LOC appropriate for age, CN II-XII intact, motor strength equal & normal bilaterally, speech normal Assessment/Plan 1. Diabetes (E11.9: Type 2 diabetes mellitus without complications) We will change the patient from metformin to Glucophage extended release 500 mg 2 tablets twice a day to help with the diarrhea. The patient should know to eat with the medication and we will recheck the blood sugars in 1 week. The patient was offered a continuous glucose monitor, but she is worried about it at this time. 2. Cerebrovascular accident (CVA), unspecified mechanism (I63.9: Cerebral infarction, unspecified) This is a history of a CVA. The patient has no deficits at this time. 3. Cardiomyopathy due to hypertension, without heart failure (I11.9: Hypertensive heart disease without heart failure) The patient sees cardiology. We will follow up with them. No signs of CHF at this time. 4. Cardiomyopathy in diseases classified elsewhere (I43: Cardiomyopathy in diseases classified elsewhere) As above. 5. Anemia, unspecified type (D64.9: Anemia, unspecified) We will do basic lab work at the patient's next visit and we will look for further issues. 6. Chronic obstructive pulmonary disease, unspecified COPD type (J44.9: Chronic obstructive pulmonary disease, unspecified) Other than the patient's wheezing today, the patient states she has no issues and she is not short of breath. 7. BMI 39.0-39.9,adult (Z68.39: Body mass index [BMI] 39.0-39.9, adult) BMI education given. 8. Class 1 obesity due to excess calories in adult (E66.09: Other obesity due to excess calories) We will see the patient back in 1 month for a recheck. ATTESTATION: Documentation services were performed after patient or guardian consented to allow Ja Card to record this visit. PATY adaptive physical education specialist and provider reviewed before signing. PATY: Vianey Bennett/ Pasted by Atilio Campos Follow-up No qualifying data available Problem List/Past Medical History Ongoing Anemia BMI 39.0-39.9,adult Cardiomyopathy due to hypertension, without heart failure Cerebrovascular accident (CVA) CHF (congestive heart failure) Chronic obstructive pulmonary disease Diabetes Diabetic retinopathy HTN (hypertension) Hypercholesterolemia Smoker Historical No qualifying data Procedure/Surgical History Cardiac catheterization. Medications aspirin 81 mg Oral EC Tab, 81 mg= 1 tab(s), Oral, Daily atorvastatin 20 mg Tab, 20 mg= 1 tab(s), Oral, Bedtime, 3 refills clopidogrel 75 mg Tab, 75 mg= 1 tab(s), Oral, Daily, 3 refills furosemide 40 mg Tab, 40 mg= 1 tab(s), Oral, Daily, 3 refills glipiZIDE 10 mg Tab, 10 mg= 1 tab(s), Oral, BID, 3 refills Glucophage XR 500 mg Tab-ER, 1000 mg= 2 tab(s), Oral, Daily Lantus Solostar Pen 100 units/mL subcutaneous solution, See Instructions lisinopril 30 mg Tab, 30 mg= 1 tab(s), Oral, Daily, 3 refills metoprolol tartrate 100 mg Tab, 100 mg= 1 tab(s), Oral, BID, 3 refills spironolactone 50 mg Tab, 50 mg= 1 tab(s), Oral, Daily, 3 refills sure comfort pen needle 30 gauge x (more content not included)... Normal [facility] Comment on above: Result Comment: Elec tronically Signed By: Esau Riddle MD\.br\Date and Time Signed: 07/21/22 07:36 EDT\.br\Electronically Co-Signed By: Atilio Mancera.br\Date and Time Co-Signed: 07/20/22 16:01 EDT Ambulatory Visit Summaryon 0 07-20-2022 Ambulatory Visit Summary KARUNA NELSON DOB:1960 Visit Date:07/20/2022 Ambulatory Visit Instructions Your Diagnosis Diabetes Cerebrovascular accident (CVA), unspecified mechanism Cardiomyopathy due to hypertension, without heart failure Cardiomyopathy in diseases classified elsewhere Anemia, unspecified type Chronic obstructive pulmonary disease, unspecified COPD type BMI 39.0-39.9,adult Class 1 obesity due to excess calories in adult Your Care Team Attending Physician - Esau Riddle MD Primary Care Physician - YUNI MAST MD This Is Your Medications List lisinopril (lisinopril 30 mg Tab) metformin (Glucophage XR 500 mg Tab-ER) Contact prescribing physician if questions or concerns Misc Prescription (sure comfort pen needle 30 gauge x /16) aspirin (aspirin 81 mg Oral EC Tab) atorvastatin (atorvastatin 20 mg Tab) clopidogrel (clopidogrel 75 mg Tab) furosemide (furosemide 40 mg Tab) glipiZIDE (glipiZIDE 10 mg Tab) insulin glargine (Lantus Solostar Pen 100 units/mL subcutaneous solution) metoprolol (metoprolol tartrate 100 mg Tab) spironolactone (spironolactone 50 mg Tab) [Image Removed: STOP]Stop taking these medications spironolactone (spironolactone 25 mg Tab) Procedures Performed Cardiac catheterization. Discharge Vitals Heart Rate (Peripheral) 60 Respiratory Rate 20 Blood Pressure 130/62 Height 157.48 cm Height 62 in Weight 97.5 kg Weight 214.5 lb BMI 39.31 What to do next Scheduled Follow-Up Appointments 2022 10:00 AM EDT With: Ernestina Jaimes DO Where: [facility] Monday 1:20 PM EDT With: Esau Riddle MD Where: [facility] Retail - Clinical Noteon Retail - Clinical Note [id number]: 127 [facility] Lab Reportson 07-04-2022 Lab Reports [id number]:1 27 [facility] US carotid doppler BIon 03- US carotid doppler BI [facility] Main [place] [address] [place] [address] Ultrasound Report Signed Patient: Karuna Nelson MR#: [id number] : 1960 Acct:[id number] Age/Sex: 61 / F ADM Date: 06/27/22 Loc: [facility] Room: Type: [facility] Attending Dr: Luc Vargas MD Ordering Provider: Luc Vargas MD Date of Service: 06/27/22 US/US carotid doppler BI: I65.23 Copies to: Luc Vargas MD CAROTID DUPLEX INDICATION: Known carotid occlusive disease PROCEDURE: Color-flow duplex scanning is used to interrogate the extracranial carotid arterial system, as well as both vertebral arteries. Both carotid bifurcations show mild to moderate heterogeneous plaque formation. The proximal right internal carotid artery shows a highest peak systolic velocity of 130 cm/s with an end-diastolic velocity of 19.1 cm/s . The mid internal carotid artery measures 124 cm/s peak systolic and 25.2 cm/s end diastolic. The distal segment measures 113 cm/s peak systolic with an end diastolic velocity of 18.2 cm/s . The velocities of the right common carotid artery are 74.1 cm/s peak systolic and 8.23 cm/s end-diastolic proximally and 74.2 cm/s peak systolic and 9.66 cm/s end diastolic distally. The peak systolic velocity ratio of the internal to the common carotid artery is 1.75. The right external carotid artery measures 296 cm/s peak systolic. The right vertebral artery is patent at 77.2 cm/s with antegrade flow. The proximal left internal carotid artery shows a highest peak systolic velocity of 179 cm/s with an end-diastolic velocity of 28.5 cm/s . The mid internal carotid artery measures 232 cm/s peak systolic and 36.6 cm/s end diastolic. The distal segment measures 123 cm/s peak systolic with an end diastolic velocity of 19.6 cm/s . The velocities of the left common carotid artery are 90.7 cm/s peak systolic and 10.6 cm/s end-diastolic proximally and 74.2 cm/s peak systolic and 11.4 cm/s end diastolic distally. The peak systolic velocity ratio of the internal to the common carotid artery is 3.13 . The left external carotid artery measures 127 cm/s peak systolic. The left vertebral artery is patent at 65.4 cm/s with antegrade flow. US/US carotid doppler BI IMPRESSION: Less than 50% stenosis of the right internal carotid artery. 50-69% stenosis of the left internal carotid artery although likely closer to the higher end of that spectrum. Both vertebral arteries are patent with antegrade flow. Impression dictated by: Luc Vargas M.D.06/27/2022 10:52 AM Dictation Location: [place] [address] Tech: Malu Shaw Transcribed By: KRYSTAL 06/27/22 105 Dictated By: Luc Vargas MD 06/27/22 105 Signed By: 06/27/22 105 [facility] CBC AUTO DIFFon 06-25-2022 BASO # 0.1 103/ul Normal 0.0-0.1 [facility] Comment on above: Performed By: #### C BC #### [facility] [address] [place] [address] Dr. David Swann Basophils/100 WBC (Bld) 1.1 % Normal 0.2-2.0 [facility] Comment on above: Performed By: #### C BC #### [facility] [address] [place] [address] Dr. David Swann EO # 0.3 103/ul Normal 0.0-0.7 [facility] Comment on above: Performed By: #### C BC #### [facility] [address] [place] [address] Dr. David Swann Eosinophils/100 WBC (Bld) 2.8 % Normal 0.9-7.0 [facility] Comment on above: Performed By: #### C BC #### [facility] [address] [place] [address] Dr. David Swann Erythrocyte distribution width (RBC) [Ratio] 15.9 % Critically high 11.0-15.0 [facility] Comment on above: Performed By: #### C BC #### [facility] [address] [address] [address] David Swann Hematocrit (Bld) [Volume fraction] 34.4 % Critically low 36.0-48.0 [facility] Comment on above: Performed By: #### C BC #### [facility] [address] [address] [address] David Swann Hemoglobin (Bld) [Mass/Vol] 10.5 g/dL Critically low 12.0-16.0 [facility] Comment on above: Performed By: #### C BC #### [facility] [address] [place] [address] Dr. David Swann IG # 0.05 10e3/ul Critically high 0.00-0.03 [facility] Comment on above: Performed By: #### C BC #### [facility] [address] [place] [address] Dr. David Swann IG % 0.5 % Normal 0.0-0.5 [facility] Comment on above: Performed By: #### C BC #### [facility] [address] [place] [address] Dr. David Swann LYMPH # 2.8 103/ul Normal 1.2-3.8 [facility] Comment on above: Performed By: #### C BC #### [facility] [address] [place] [address] Dr. David Swann Lymphocytes/100 WBC (Bld) 26.7 % Normal 20.5-60.0 [facility] Comment on above: Performed By: #### C BC #### [facility] [address] [place] [address] Dr. David Swann MANUAL DIFF REQ NO Normal [facility] Comment on above: Performed By: #### C BC #### [facility] [address] [place] [address] Dr. David Swann MCH (RBC) [Entitic mass] 23.9 pg Critically low 26.7-34.0 [facility] Comment on above: Performed By: #### C BC #### [facility] [address] [place] [address] Dr. David Swann MCHC (RBC) [Mass/Vol] 30.5 g/dL Normal 29.9-35.2 [facility] Comment on above: Performed By: #### C BC #### [facility] [address] [place] [address] Dr. David Swann MCV (RBC) [Entitic vol] 78.2 fL Critically low 81.0-99.0 [facility] Comment on above: Performed By: #### C BC #### [facility] [address] [place] [address] Dr. David Swann MONO # 0.7 103/ul Normal 0.3-0.8 [facility] Comment on above: Performed By: #### C BC #### [facility] [address] [place] [address] Dr. David Swann Monocytes/100 WBC (Bld) 6.4 % Normal 1.7-12.0 [facility] Comment on above: Performed By: #### C BC #### [facility] [address] [place] [address] Dr. David Swann NEUT # 6.5 103/ul Normal 1.4-6.5 [facility] Comment on above: Performed By: #### C BC #### [facility] [address] [place] [address] Dr. David Swann Neutrophils/100 WBC (Bld) 62.5 % Normal 43.0-75.0 [facility] Comment on above: Performed By: #### C BC #### [facility] [address] [place] [address] Dr. David Swann Platelet mean volume (Bld) [Entitic vol] 10.1 fL Normal 9.5-13.5 [facility] Comment on above: Performed By: #### C BC #### [facility] [address] [place] [address] Dr. David Swann PLT 441 103/ul Normal 150-450 [facility] Comment on above: Performed By: #### C BC #### [facility] [address] [place] [address] Dr. David Swann RBC 4.40 106/ul Normal 4.20-5.40 [facility] Comment on above: Performed By: #### C BC #### [facility] [address] [address] [address] David Swann WBC 10.4 103/ul Normal 4.0-11.0 [facility] Comment on above: Performed By: #### C BC #### [facility] [address] [place] [address] Dr. David Swann GLYCOHEMOGLOBIN A1Con 2022 ADA RECOMMENDATION SEE BELOW Normal [facility] Comment on above: Result Comment: ADA RECOMMENDED LIMIT 4.0 - 6.0 ADA THERAPEUTIC TARGET < 7.0 ACTION SUGGESTED > 7.0 Performed By: #### A 1C #### [facility] [address] [place] [address] Dr. David Swann Glucose [Mass/Vol] 151 mg/dL Normal [facility] Comment on above: Performed By: #### A 1C #### [facility] [address] [place] [address] Dr. David Swann HbA1c (Bld) [Mass fraction] 6.9 % Critically high 4.5-6.2 [facility] Comment on above: Performed By: #### A 1C #### [facility] [address] [place] [address] Dr. David Swann LIPID PROFILEon 06-25-2022 CHOL-HDL RATIO NORM SEE BELOW Normal [facility] Comment on above: Result Comment: 3.3 - 4.4 LOW RISK 4.4 - 7.1 AVERAGE RISK 7.1 - 11.0 MODERATE RISK >11.0 HIGH RISK Performed By: #### C MP, LIPID #### [facility] [address] [place] [address] Dr. David Swann Cholesterol [Mass/Vol] 125 mg/dL Normal <=200 [facility] Comment on above: Performed By: #### C MP, LIPID #### [facility] [address] [place] [address] Dr. David Swann Cholesterol in HDL [Mass/Vol] 29 mg/dL Critically low 40-60 [facility] Comment on above: Performed By: #### C MP, LIPID #### [facility] [address] [address] [address] David Swann Cholesterol in LDL [Mass/Vol] 85.6 mg/dL Normal [facility] Comment on above: Performed By: #### C MP, LIPID #### [facility] [address] [address] [address] David Swann Cholesterol.total/Cho lesterol in HDL [Mass ratio] 4.3 {ratio} Normal [facility] Comment on above: Performed By: #### C MP, LIPID #### [facility] [address] [address] [address] David Swann HDL NORMAL > or = 60 mg/dl - LO W CARDIOVASCULAR RISK <40 mg/dl - HIGH CARDIOVASCULAR RISK Normal [facility] Comment on above: Performed By: #### C MP, LIPID #### [facility] [address] [address] [address] David Swann LDL CALC NORMAL SEE BELOW Normal [facility] Comment on above: Result Comment: <100 mg/dl OPTIMAL 100 - 129 mg/dl NEAR OR ABOVE OPTIMAL 130 - 159 mg/dl BORDERLINE HIGH 160 - 189 mg/dl HIGH >190 mg/dl VERY HIGH Performed By: #### C MP, LIPID #### [facility] [address] [place] [address] Dr. David Swann Triglyceride [Mass/Vol] 52 mg/dL Normal <=150 [facility] Comment on above: Performed By: #### C MP, LIPID #### [facility] [address] [address] [address] David Swann VLDL CALC 10.4 mg/dL Normal [facility] Comment on above: Performed By: #### C MP, LIPID #### [facility] [address] [place] [address] Dr. David Swann PROF 14(COMP METB)on 023 Albumin [Mass/Vol] 3.0 g/dL Critically low 3.4-5.0 [facility] Comment on above: Performed By: #### C MP, LIPID #### [facility] [address] [address] [address] David Swann Albumin/Globulin [Mass ratio] 0.6 {ratio} Normal [facility] Comment on above: Performed By: #### C MP, LIPID #### [facility] [address] [address] [address] David Swann ALP [Catalytic activity/Vol] 79 U/L Normal 46-116 [facility] Comment on above: Performed By: #### C MP, LIPID #### [facility] [address] [address] [address] David Swann ALT [Catalytic activity/Vol] 14 U/L Normal 14-59 [facility] Comment on above: Performed By: #### C MP, LIPID #### [facility] [address] [address] [address] David Swann Anion gap [Moles/Vol] 12.1 mmol/L Normal [facility] Comment on above: Performed By: #### C MP, LIPID #### [facility] [address] [address] [address] David Swann AST [Catalytic activity/Vol] 12 U/L Critically low 15-37 [facility] Comment on above: Performed By: #### C MP, LIPID #### [facility] [address] [address] [address] David Swann Bilirubin [Mass/Vol] 0.3 mg/dL Normal 0.2-1.0 [facility] Comment on above: Performed By: #### C MP, LIPID #### [facility] [address] [address] [address] David Swann Calcium [Mass/Vol] 9.2 mg/dL Normal 8.5-10.1 [facility] Comment on above: Performed By: #### C MP, LIPID #### [facility] [address] [address] [address] David Swann Chloride [Moles/Vol] 103 mmol/L Normal 98-107 [facility] Comment on above: Performed By: #### C MP, LIPID #### [facility] [address] [address] [address] David Swann CO2 [Moles/Vol] 27.8 mmol/L Normal 21.0-32.0 [facility] Comment on above: Performed By: #### C MP, LIPID #### [facility] [address] [address] [address] David Swann Creatinine [Mass/Vol] 0.81 mg/dL Normal 0.55-1.02 [facility] Comment on above: Performed By: #### C MP, LIPID #### [facility] [address] [address] [address] David Swann EGFR-AF SIERRA LEONEAN >60 Normal >=60 [facility] Comment on above: Performed By: #### C MP, LIPID #### [facility] [address] [place] [address] Dr. David Swann EGFR-NON AF SIERRA LEONEAN >60 Normal >=60 [facility] Comment on above: Performed By: #### C MP, LIPID #### [facility] [address] [place] [address] Dr. David Swann Globulin (S) [Mass/Vol] 4.8 g/dL Normal [facility] Comment on above: Performed By: #### C MP, LIPID #### [facility] [address] [place] [address] Dr. David Swann Glucose [Mass/Vol] 78 mg/dL Normal 74-106 [facility] Comment on above: Performed By: #### C MP, LIPID #### [facility] [address] [place] [address] Dr. David Swann Potassium [Moles/Vol] 3.9 mmol/L Normal 3.5-5.1 [facility] Comment on above: Performed By: #### C MP, LIPID #### [facility] [address] [place] [address] Dr. David Swann Protein [Mass/Vol] 7.8 g/dL Normal 6.4-8.2 [facility] Comment on above: Performed By: #### C MP, LIPID #### [facility] [address] [place], [place] [address] Dr. David Swann Sodium [Moles/Vol] 139 mmol/L Normal 136-145 [facility] Comment on above: Performed By: #### C MP, LIPID #### [facility] [address] [id number] David Swann Urea nitrogen [Mass/Vol] 23.0 mg/dL Critically high 7.0-18.0 [facility] Comment on above: Performed By: #### C MP, LIPID #### [facility] [address] [place], [place] [address] Dr. David Swann Urea nitrogen/Creatinine [Mass ratio] 28.4 mg/mg Normal [facility] Comment on above: Performed By: #### C MP, LIPID #### [facility] [address] [address] [address] David Swann Physician Referralon 023 Physician Referral [id number] :127 Normal [facility] Ambulatory Visit Summaryon 0 06-22-2022 Ambulatory Visit Summary KARUNA NELSON :1960 Visit Date:06/22/2022 Ambulatory Visit Instructions Your Diagnosis Diabetes HTN (hypertension) Diabetic retinopathy CHF (congestive heart failure) COPD (chronic obstructive pulmonary disease) Hypercholesterolemia Your Care Team Attending Physician - YUNI MAST MD Primary Care Physician - YUNI MAST MD This Is Your Medications List [facility] Prescription (sure comfort pen needle 30 gauge x 16) aspirin (aspirin 81 mg Oral EC Tab) atorvastatin (atorvastatin 20 mg Tab) clopidogrel (clopidogrel 75 mg Tab) furosemide (furosemide 40 mg Tab) glipiZIDE (glipiZIDE 10 mg Tab) insulin glargine (Lantus Solostar Pen 100 units/mL subcutaneous solution) lisinopril (lisinopril 30 mg Tab) metformin (metformin 1000 mg Tab) metoprolol (metoprolol tartrate 100 mg Tab) spironolactone (spironolactone 25 mg Tab) spironolactone (spironolactone 50 mg Tab) Procedures Performed Cardiac catheterization. Discharge Vitals Heart Rate (Peripheral) 60 Respiratory Rate 20 Blood Pressure 140/72 Height 157.48 cm Height 62 in Weight 99.1 kg Weight 218.02 lb BMI 39.96 Medications What How Much When Instructions Unchanged aspirin (aspirin 81 mg Oral EC Tab) 1 Tablets By Mouth Every day Unchanged atorvastatin (atorvastatin 20 mg Tab) 1 Tablets By Mouth At bedtime Unchanged clopidogrel (clopidogrel 75 mg Tab) 1 Tablets By Mouth Every day Unchanged furosemide (furosemide 40 mg Tab) 1 Tablets By Mouth Every day Unchanged glipiZIDE (glipiZIDE 10 mg Tab) 1 Tablets By Mouth 2 times a day Unchanged insulin glargine (Lantus Solostar Pen 100 units/ mL subcutaneous solution) See instructions inject 20 units twice daily Unchanged lisinopril (lisinopril 30 mg Tab) 1 Tablets By Mouth Every day Unchanged metformin (metformin 1000 mg Tab) 1 Tablets By Mouth 3 times a day Unchanged metoprolol (metoprolol tartrate 100 mg Tab) 1 Tablets By Mouth 2 times a day Unchanged Misc Prescription (sure comfort pen needle 30 gauge x 5/ 16) See instructions use bid for E10.8 Unchanged spironolactone (spironolactone 25 mg Tab) 1 Tablets By Mouth Every day Unchanged spironolactone (spironolactone 50 mg Tab) 1 Tablets By Mouth Every day Medications and Immunizations Administered Not Given influenza virus vaccine, inactivated, Postpone due to refusal SARS-CoV-2 mRNA (tozinameran 5y-11y) vac, Postpone due to refusal Allergies albuterol (Severe) sulfa drugs (Mild) Problems Ongoing - Any problem that you are currently receiving treatment for. Anemia BMI 39.0-39.9,adult CHF (congestive heart failure) COPD (chronic obstructive pulmonary disease) CVA (cerebral vascular accident) Diabetes Diabetic retinopathy HTN (hypertension) Hypercholesterolemia Hypertensive cardiomyopathy Smoker [facility] Ambulatory Visit Summary KARUNA NELSON :1960 Visit Date:06/22/2022 Ambulatory Visit Instructions Your Diagnosis Diabetes HTN (hypertension) Diabetic retinopathy CHF (congestive heart failure) COPD (chronic obstructive pulmonary disease) Hypercholesterolemia Your Care Team Attending Physician - YUNI MAST MD Primary Care Physician - YUNI MAST MD This Is Your Medications List Misc Prescription (sure comfort pen needle 30 gauge x 5/16) aspirin (aspirin 81 mg Oral EC Tab) atorvastatin (atorvastatin 20 mg Tab) clopidogrel (clopidogrel 75 mg Tab) furosemide (furosemide 40 mg Tab) glipiZIDE (glipiZIDE 10 mg Tab) insulin glargine (Lantus Solostar Pen 100 units/mL subcutaneous solution) lisinopril (lisinopril 30 mg Tab) metformin (metformin 1000 mg Tab) metoprolol (metoprolol tartrate 100 mg Tab) spironolactone (spironolactone 25 mg Tab) spironolactone (spironolactone 50 mg Tab) Procedures Performed Cardiac catheterization. Discharge Vitals Heart Rate (Peripheral) 60 Respiratory Rate 20 Blood Pressure 140/72 Height 157.48 cm Height 62 in Weight 99.1 kg Weight 218.02 lb BMI 39.96 Medications What How Much When Instructions Unchanged aspirin (aspirin 81 mg Oral EC Tab) 1 Tablets By Mouth Every day Unchanged atorvastatin (atorvastatin 20 mg Tab) 1 Tablets By Mouth At bedtime Unchanged clopidogrel (clopidogrel 75 mg Tab) 1 Tablets By Mouth Every day Unchanged furosemide (furosemide 40 mg Tab) 1 Tablets By Mouth Every day Unchanged glipiZIDE (glipiZIDE 10 mg Tab) 1 Tablets By Mouth 2 times a day Unchanged insulin glargine (Lantus Solostar Pen 100 units/ mL subcutaneous solution) See instructions inject 20 units twice daily Unchanged lisinopril (lisinopril 30 mg Tab) 1 Tablets By Mouth Every day Unchanged metformin (metformin 1000 mg Tab) 1 Tablets By Mouth 3 times a day Unchanged metoprolol (metoprolol tartrate 100 mg Tab) 1 Tablets By Mouth 2 times a day Unchanged Misc Prescription (sure comfort pen needle 30 gauge x ) See instructions use bid for E10.8 Unchanged spironolactone (spironolactone 25 mg Tab) 1 Tablets By Mouth Every day Unchanged spironolactone (spironolactone 50 mg Tab) 1 Tablets By Mouth Every day Medications and Immunizations Administered Not Given influenza virus vaccine, inactivated, Postpone due to refusal SARS-CoV-2 mRNA (chocon 5y-11y) vac, Postpone due to refusal Allergies albuterol (Severe) sulfa drugs (Mild) Problems Ongoing - Any problem that you are currently receiving treatment for. Anemia BMI 39.0-39.9,adult CHF (congestive heart failure) COPD (chronic obstructive pulmonary disease) CVA (cerebral vascular accident) Diabetes Diabetic retinopathy HTN (hypertension) Hypercholesterolemia Hypertensive cardiomyopathy Smoker Normal [facility] Medicine Office/Clini c Noteon 06-22-2022 Family Medicine Office/Clinic Note Chief Complaint follow up, meds check and refills HPI Staff Follow up and meds check Been getting diarrhea a lot lately needs refills: insulin, furosemide, spirinolactone, metoprolol, and lisinopril Covid/flu: refused Colonoscopy: never done Mammogram: never had one History of Present Illness IDDM sugars are doing good but some low levels and did not feel it ASCVD NO symptoms diarrhea Numbness of the feet neuropathy. Review of Systems PHQ Score Initial Depression Screen Score: 1 Constitutional: no fever, no chills, no sweats, no weakness Skin: no Jaundice, no rash, no lesions, nopetechiae ENMT: no ear pain, no sore throat, no congestion, no hoarseness Respiratory: no shortness of breath, no cough, no orthopnea, no wheezing Cardiovascular: no chest pain, no palpitations, no edema Gastrointestinal: no nausea, no vomiting, no diarrhea, no GI bleeding Genitourinary: no dysuria, no hematuria, no discharge, no pain Neurologic: no headache, no dizziness, no numbness, no weakness Psychiatric: no sleeping problems, no irritability, no mood swings/depression. Additional ROS info: Except as noted in the above Review of Systems and in the History of Present Illness all other systems have been reviewed and are negative or noncontributory. Physical Exam Vitals & Measurements HR: 60(Peripheral) RR: 20 BP: 140/72 SpO2: 94% HT: 62 in HT: 157.48 cm WT: 99.1 kg WT: 218.02 lb BMI: 39.96 General: alert, no acute distress Skin: warm, dry Head: no trauma, normocephalic Neck: Trachea midline, no adenopathy, no tenderness Eye: normal conjunctiva, sclera clear ENMT: TM's clear, oral mucosa moist, no pharyngeal erythema or exudate Cardiovascular: regular rate and rhythm, normal peripheral perfusion Respiratory: Lungs CTA, respirations non labored Gastrointestinal: soft, non distended, no tenderness, no guarding. Extremeties, mild edema left foot Neurological: oriented x 4, LOC appropriate for age, CN II-XII intact, motor strength equal & normal bilaterally, sensation equal & normal bilaterally, speech normal Psychiatric: cooperative, affect appropriate for age, normal judgement, normal psychiatric thoughts. Assessment/Plan diarrhea porobably from metformi will sop it anc jefferson with results. meds reviewed and explained ed. on dx. processes rto prn explained refer to cardiology. 1. Diabetes (E11.9: Type 2 diabetes mellitus without complications) Ordered: CBC w/ Auto Diff Comprehensive Metabolic Panel HgbA1c Lipid Panel 2. HTN (hypertension) (I10: Essential (primary) hypertension) Ordered: CBC w/ Auto Diff Comprehensive Metabolic Panel HgbA1c Lipid Panel 3. Diabetic retinopathy (E11.319: Type 2 diabetes mellitus with unspecified diabetic retinopathy without macular edema) Ordered: CBC w/ Auto Diff Comprehensive Metabolic Panel HgbA1c Lipid Panel 4. CHF (congestive heart failure) (I50.9: Heart failure, unspecified) Ordered: CBC w/ Auto Diff Comprehensive Metabolic Panel HgbA1c Lipid Panel 5. COPD (chronic obstructive pulmonary disease) (J44.9: Chronic obstructive pulmonary disease, unspecified) Ordered: CBC w/ Auto Diff Comprehensive Metabolic Panel HgbA1c Lipid Panel 6. Hypercholesterolemia (E78.00: Pure hypercholesterolemia, unspecified) Ordered: CBC w/ Auto Diff Comprehensive Metabolic Panel HgbA1c Lipid Panel Orders: Body Mass Index (BMI) documented 3008F Current tobacco smoker 1034F Depression Screening Negative 3352F Influenza immunization status assessed 1030F Most recent diastolic blood pressure <80 mm Hg 3078F Most recent systolic blood pressure >= 140 mm Hg 3077F Follow-up No qualifying data available Problem List/Past Medical History Ongoing Anemia BMI 39.0-39.9,adult CHF (congestive heart failure) COPD (chronic obstructive pulmonary disease) CVA (cerebral vascular accident) Diabetes Diabetic retinopathy HTN (hypertension) Hypercholesterolemia Hypertensive cardiomyopathy Smoker Historical No qualifying data Procedure/Surgical History Cardiac catheterization. Medications aspirin 81 mg Oral EC Tab, 81 mg= 1 tab(s), Oral, Daily atorvastatin 20 mg Tab, 20 mg= 1 tab(s), Oral, Bedtime clopidogrel 75 mg Tab, 75 mg= 1 tab(s), Oral, Daily furosemide 40 mg Tab, 40 mg= 1 tab(s), Oral, Daily glipiZIDE 10 mg Tab, 10 mg= 1 tab(s), Oral, BID Lantus Solostar Pen 100 units/mL subcutaneous solution, See Instructions lisinopril 30 mg Tab, 30 mg= 1 tab(s), Oral, Daily metformin 1000 mg Tab, 1000 mg= 1 tab(s), Oral, TID metoprolol tartrate 100 mg Tab, 100 mg= 1 tab(s), Oral, BID spironolactone 25 mg Tab, 25 mg= 1 tab(s), Oral, Daily spironolactone 50 mg Tab, 50 mg= 1 tab(s), Oral, Daily sure comfort pen needle 30 gauge x 5/16, See Instructions Allergies albuterol (Severe) sulfa drugs (Mild) Social History Home/Environment Lives with Children., 06/17/2022 Tobacco Smoker, current (more content not included)... Normal [facility] Comment on above: Result Comment: Elec tronically Signed By: ELIUD MISTRY, YUNI Tony\.br\Date and Time Signed: 06/22/22 15:51 EDT PROF CHEM 8 (BAS METB)on Anion gap [Moles/Vol] 14.8 mmol/L Normal [facility] Comment on above: Performed By: #### P OCGLUC #### [facility] [address] [address] [address] David Swann Calcium [Mass/Vol] 9.2 mg/dL Normal 8.5-10.1 [facility] Comment on above: Performed By: #### P OCGLUC #### [facility] [address] [address] [address] David Swann Chloride [Moles/Vol] 105 mmol/L Normal 98-107 [facility] Comment on above: Performed By: #### P OCGLUC #### [facility] [address] [address] [address] David Swann CO2 [Moles/Vol] 26.7 mmol/L Normal 21.0-32.0 [facility] Comment on above: Performed By: #### P OCGLUC #### [facility] [address] [address] [address] David Swann Creatinine [Mass/Vol] 0.97 mg/dL Normal 0.55-1.02 [facility] Comment on above: Performed By: #### P OCGLUC #### [facility] [address] [address] [address] David Swann EGFR-AF SIERRA LEONEAN >60 Normal >=60 [facility] Comment on above: Performed By: #### P OCGLUC #### [facility] [address] [address] [address] David Swann EGFR-NON AF SIERRA LEONEAN 58 mL/min/1.73m2 Critically low >=60 [facility] Comment on above: Performed By: #### P OCGLUC #### [facility] [address] [address] [address] David Swann Glucose [Mass/Vol] 125 mg/dL Critically high 74-106 [facility] Comment on above: Performed By: #### P OCGLUC #### [facility] [address] [address] [address] David Swann Potassium [Moles/Vol] 4.5 mmol/L Normal 3.5-5.1 [facility] Comment on above: Performed By: #### P OCGLUC #### [facility] [address] [address] [address] David Swann Sodium [Moles/Vol] 142 mmol/L Normal 136-145 [facility] Comment on above: Performed By: #### P OCGLUC #### [facility] [address] [address] [address] David Swann Urea nitrogen [Mass/Vol] 31.0 mg/dL Critically high 7.0-18.0 [facility] Comment on above: Performed By: #### P OCGLUC #### [facility] [address] [address] [address] David Swann Urea nitrogen/Creatinine [Mass ratio] 32.0 mg/mg Normal [facility] Comment on above: Performed By: #### P OCGLUC #### [facility] [address] [address] [address] David Swann CBC AUTO DIFFon 11-18-2021 BASO # 0.0 103/ul Normal 0.0-0.1 [facility] Comment on above: Performed By: #### C BC #### [facility] [address] [address] [address] David Swann Basophils/100 WBC (Bld) 0.6 % Normal 0.2-2.0 [facility] Comment on above: Performed By: #### C BC #### [facility] [address] [address] [address] David Swann EO # 0.2 103/ul Normal 0.0-0.7 [facility] Comment on above: Performed By: #### C BC #### [facility] [address] [address] [address] David Swann Eosinophils/100 WBC (Bld) 3.5 % Normal 0.9-7.0 [facility] Comment on above: Performed By: #### C BC #### [facility] [address] [place] [address] Dr. David Swann Erythrocyte distribution width (RBC) [Ratio] 15.9 % Critically high 11.0-15.0 [facility] Comment on above: Performed By: #### C BC #### [facility] [address] [place] [address] Dr. David Swann Hematocrit (Bld) [Volume fraction] 33.6 % Critically low 36.0-48.0 [facility] Comment on above: Performed By: #### C BC #### [facility] [address] [place] [address] Dr. David Swann Hemoglobin (Bld) [Mass/Vol] 10.1 g/dL Critically low 12.0-16.0 [facility] Comment on above: Performed By: #### C BC #### [facility] [address] [place] [address] Dr. David Swann IG # 0.01 10e3/ul Normal 0.00-0.03 [facility] Comment on above: Performed By: #### C BC #### [facility] [address] [address] [address] David Swann IG % 0.1 % Normal 0.0-0.5 [facility] Comment on above: Performed By: #### C BC #### [facility] [address] [address] [address] David Swann LYMPH # 2.0 103/ul Normal 1.2-3.8 [facility] Comment on above: Performed By: #### C BC #### [facility] [address] [place] [address] Dr. David Swann Lymphocytes/100 WBC (Bld) 28.5 % Normal 20.5-60.0 [facility] Comment on above: Performed By: #### C BC #### [facility] [address] [place] [address] Dr. David Swann MANUAL DIFF REQ NO Normal [facility] Comment on above: Performed By: #### C BC #### [facility] [address] [place] [address] Dr. David Swann MCH (RBC) [Entitic mass] 25.7 pg Critically low 26.7-34.0 [facility] Comment on above: Performed By: #### C BC #### [facility] [address] [place] [address] Dr. David Swann MCHC (RBC) [Mass/Vol] 30.1 g/dL Normal 29.9-35.2 [facility] Comment on above: Performed By: #### C BC #### [facility] [address] [place] [address] Dr. David Swann MCV (RBC) [Entitic vol] 85.5 fL Normal 81.0-99.0 [facility] Comment on above: Performed By: #### C BC #### [facility] [address] [place] [address] Dr. David Swann MONO # 0.5 103/ul Normal 0.3-0.8 [facility] Comment on above: Performed By: #### C BC #### [facility] [address] [place] [address] Dr. David Swann Monocytes/100 WBC (Bld) 6.7 % Normal 1.7-12.0 [facility] Comment on above: Performed By: #### C BC #### [facility] [address] [place] [address] Dr. David Swann NEUT # 4.1 103/ul Normal 1.4-6.5 [facility] Comment on above: Performed By: #### C BC #### [facility] [address] [place] [address] Dr. David Swann Neutrophils/100 WBC (Bld) 60.6 % Normal 43.0-75.0 [facility] Comment on above: Performed By: #### C BC #### [facility] [address] [place] [address] Dr. David Swann Platelet mean volume (Bld) [Entitic vol] 10.3 fL Normal 9.5-13.5 [facility] Comment on above: Performed By: #### C BC #### [facility] [address] [place] [address] Dr. David Swann PLT 268 103/ul Normal 150-450 [facility] Comment on above: Performed By: #### C BC #### [facility] [address] [place] [address] Dr. David Swann RBC 3.93 106/ul Critically low 4.20-5.40 [facility] Comment on above: Performed By: #### C BC #### [facility] [address] [place] [address] Dr. David Swann WBC 6.8 103/ul Normal 4.0-11.0 [facility] Comment on above: Performed By: #### C BC #### [facility] [address] [place] [address] Dr. David Swann IRON AND TIBCon 11-18-2021 % SATURATION 18.8 % Normal [facility] Comment on above: Performed By: #### F ETIBC, B12FOL #### [facility] [address] [place] [address] Dr. David Swann Iron [Mass/Vol] 58.0 ug/dL Normal 50.0-170.0 [facility] Comment on above: Performed By: #### F ETIBC, B12FOL #### [facility] [address] [address] [address] David Swann TIBC DIRECT 308.0 ug/dL Normal 250.0-450.0 [facility] Comment on above: Performed By: #### F ETIBC, B12FOL #### [facility] [address] [address] [address] David Swann POINT OF CARE GLUCOSEon 11-01 Glucose [Mass/Vol] 136 mg/dL Critically high 74-106 [facility] Comment on above: Performed By: #### F ETIBC, B12FOL #### [facility] [address] [address] [address] David Swann PROF 14(COMP METB)on 11-18- 022 Albumin [Mass/Vol] 2.9 g/dL Critically low 3.4-5.0 [facility] Comment on above: Performed By: #### F ETIBC, B12FOL #### [facility] [address] [address] [address] David Swann Albumin/Globulin [Mass ratio] 0.7 {ratio} Normal [facility] Comment on above: Performed By: #### F ETIBC, B12FOL #### [facility] [address] [address] [address] David Swann ALP [Catalytic activity/Vol] 67 U/L Normal 46-116 [facility] Comment on above: Performed By: #### F ETIBC, B12FOL #### [facility] [address] [address] [address] David Swann ALT [Catalytic activity/Vol] 13 U/L Critically low 14-59 [facility] Comment on above: Performed By: #### F ETIBC, B12FOL #### [facility] [address] [place] [address] Dr. David Swann Anion gap [Moles/Vol] 10.3 mmol/L Normal [facility] Comment on above: Performed By: #### F ETIBC, B12FOL #### [facility] [address] [place] [address] Dr. David Swann AST [Catalytic activity/Vol] 12 U/L Critically low 15-37 [facility] Comment on above: Performed By: #### F ETIBC, B12FOL #### [facility] [address] [address] [address] David Swann Bilirubin [Mass/Vol] 0.3 mg/dL Normal 0.2-1.0 [facility] Comment on above: Performed By: #### F ETIBC, B12FOL #### [facility] [address] [place] [address] Dr. David Swann Calcium [Mass/Vol] 8.8 mg/dL Normal 8.5-10.1 [facility] Comment on above: Performed By: #### F ETIBC, B12FOL #### [facility] [address] [place] [address] Dr. David Swann Chloride [Moles/Vol] 105 mmol/L Normal 98-107 [facility] Comment on above: Performed By: #### F ETIBC, B12FOL #### [facility] [address] [address] [address] David Swann CO2 [Moles/Vol] 30.4 mmol/L Normal 21.0-32.0 [facility] Comment on above: Performed By: #### F ETIBC, B12FOL #### [facility] [address] [place] [address] Dr. David Swann Creatinine [Mass/Vol] 0.96 mg/dL Normal 0.55-1.02 [facility] Comment on above: Performed By: #### F ETIBC, B12FOL #### [facility] [address] [place] [address] Dr. David Swann EGFR-AF SIERRA LEONEAN >60 Normal >=60 [facility] Comment on above: Performed By: #### F ETIBC, B12FOL #### [facility] [address] [place] [address] Dr. David Swann EGFR-NON AF SIERRA LEONEAN 59 mL/min/1.73m2 Critically low >=60 [facility] Comment on above: Performed By: #### F ETIBC, B12FOL #### [facility] [address] [address] [address] David Swann Globulin (S) [Mass/Vol] 4.0 g/dL Normal [facility] Comment on above: Performed By: #### F ETIBC, B12FOL #### [facility] [address] [address] [address] David Swann Glucose [Mass/Vol] 59 mg/dL Critically low 74-106 [facility] Comment on above: Performed By: #### F ETIBC, B12FOL #### [facility] [address] [place] [address] Dr. David Swann Potassium [Moles/Vol] 3.7 mmol/L Normal 3.5-5.1 [facility] Comment on above: Performed By: #### F ETIBC, B12FOL #### [facility] [address] [place] [address] Dr. David Swann Protein [Mass/Vol] 6.9 g/dL Normal 6.4-8.2 [facility] Comment on above: Performed By: #### F ETIBC, B12FOL #### [facility] [address] [place] [address] Dr. David Swann Sodium [Moles/Vol] 142 mmol/L Normal 136-145 [facility] Comment on above: Performed By: #### F ETIBC, B12FOL #### [facility] [address] [place] [address] Dr. David Swann Urea nitrogen [Mass/Vol] 30.0 mg/dL Critically high 7.0-18.0 [facility] Comment on above: Performed By: #### F ETIBC, B12FOL #### [facility] [address] [place] [address] Dr. David Swann Urea nitrogen/Creatinine [Mass ratio] 31.2 mg/mg Normal [facility] Comment on above: Performed By: #### F ETIBC, B12FOL #### [facility] [address] [place] [address] Dr. David Swann VIT B12 AND FOLATEon 022 Cobalamin (Vitamin B12) [Mass/Vol] 292.0 pg/mL Normal 193.0-986.0 [facility] Comment on above: Performed By: #### F ETIBC, B12FOL #### [facility] [address] [place] [address] Dr. David Swann FOLATE 13.80 ng/mL Normal 8.60-58.90 [facility] Comment on above: Performed By: #### F ETIBC, B12FOL #### [facility] [address] [place] [address] Dr. David Swann BNPon 11-17-2021 Natriuretic peptide B (Bld) [Mass/Vol] 1956.0 pg/mL Critically high <=900.0 [facility] Comment on above: Performed By: #### B PRODUCTION SUPPORT CONSULTANT #### [facility] [address] [place] [address] Dr. David Swann CBC AUTO DIFFon 11-17-2021 BASO # 0.1 103/ul Normal 0.0-0.1 [facility] Comment on above: Performed By: #### C BC #### [facility] [address] [place] [address] Dr. David Swann Basophils/100 WBC (Bld) 0.8 % Normal 0.2-2.0 [facility] Comment on above: Performed By: #### C BC #### [facility] [address] [place] [address] Dr. David Swann EO # 0.1 103/ul Normal 0.0-0.7 [facility] Comment on above: Performed By: #### C BC #### [facility] [address] [place] [address] Dr. David Swann Eosinophils/100 WBC (Bld) 1.4 % Normal 0.9-7.0 [facility] Comment on above: Performed By: #### C BC #### [facility] [address] [place] [address] Dr. David Swann Erythrocyte distribution width (RBC) [Ratio] 16.0 % Critically high 11.0-15.0 [facility] Comment on above: Performed By: #### C BC #### [facility] [address] [place] [address] Dr. David Swann Hematocrit (Bld) [Volume fraction] 33.9 % Critically low 36.0-48.0 [facility] Comment on above: Performed By: #### C BC #### [facility] [address] [place] [address] Dr. David Swann Hemoglobin (Bld) [Mass/Vol] 10.3 g/dL Critically low 12.0-16.0 [facility] Comment on above: Performed By: #### C BC #### [facility] [address] [place] [address] Dr. David Swann IG # 0.04 10e3/ul Critically high 0.00-0.03 [facility] Comment on above: Performed By: #### C BC #### [facility] [address] [place] [address] Dr. David Swann IG % 0.4 % Normal 0.0-0.5 [facility] Comment on above: Performed By: #### C BC #### [facility] [address] [place] [address] Dr. David Swann LYMPH # 2.1 103/ul Normal 1.2-3.8 [facility] Comment on above: Performed By: #### C BC #### [facility] [address] [place] [address] Dr. David Swann Lymphocytes/100 WBC (Bld) 22.8 % Normal 20.5-60.0 [facility] Comment on above: Performed By: #### C BC #### [facility] [address] [place] [address] Dr. David Swann MANUAL DIFF REQ NO Normal [facility] Comment on above: Performed By: #### C BC #### [facility] [address] [place] [address] Dr. David Swann MCH (RBC) [Entitic mass] 26.3 pg Critically low 26.7-34.0 [facility] Comment on above: Performed By: #### C BC #### [facility] [address] [address] [address] David Swann MCHC (RBC) [Mass/Vol] 30.4 g/dL Normal 29.9-35.2 [facility] Comment on above: Performed By: #### C BC #### [facility] [address] [place] [address] Dr. David Swann MCV (RBC) [Entitic vol] 86.5 fL Normal 81.0-99.0 [facility] Comment on above: Performed By: #### C BC #### [facility] [address] [place] [address] Dr. David Swann MONO # 0.4 103/ul Normal 0.3-0.8 [facility] Comment on above: Performed By: #### C BC #### [facility] [address] [place] [address] Dr. David Swann Monocytes/100 WBC (Bld) 4.5 % Normal 1.7-12.0 [facility] Comment on above: Performed By: #### C BC #### [facility] [address] [place] [address] Dr. David Swann NEUT # 6.3 103/ul Normal 1.4-6.5 [facility] Comment on above: Performed By: #### C BC #### [facility] [address] [place] [address] Dr. David Swann Neutrophils/100 WBC (Bld) 70.1 % Normal 43.0-75.0 [facility] Comment on above: Performed By: #### C BC #### [facility] [address] [place] [address] Dr. David Swann Platelet mean volume (Bld) [Entitic vol] 10.3 fL Normal 9.5-13.5 [facility] Comment on above: Performed By: #### C BC #### [facility] [address] [place] [address] Dr. David Swann PLT 285 103/ul Normal 150-450 [facility] Comment on above: Performed By: #### C BC #### [facility] [address] [address] [address] David Swann RBC 3.92 106/ul Critically low 4.20-5.40 [facility] Comment on above: Result Comment: DR Susan WALDROP NOTIFIED ABOUT DELTA CHECK--HE WILL RECHECK IT WITH REPEAT TOMORROW Performed By: #### C BC #### [facility] [address] [address] [address] David Swann WBC 9.1 103/ul Normal 4.0-11.0 [facility] Comment on above: Performed By: #### C BC #### [facility] [address] [address] [address] David Swann BASO # 0.1 103/ul Normal 0.0-0.1 [facility] Comment on above: Performed By: #### P OCGLUC #### [facility] [address] [address] [address] David Swann Basophils/100 WBC (Bld) 0.8 % Normal 0.2-2.0 [facility] Comment on above: Performed By: #### P OCGLUC #### [facility] [address] [address] [address] David Swann EO # 0.3 103/ul Normal 0.0-0.7 [facility] Comment on above: Performed By: #### P OCGLUC #### [facility] [address] [address] [address] David Swann Eosinophils/100 WBC (Bld) 2.4 % Normal 0.9-7.0 [facility] Comment on above: Performed By: #### P OCGLUC #### [facility] [address] [address] [address] David Swann Erythrocyte distribution width (RBC) [Ratio] 15.9 % Critically high 11.0-15.0 [facility] Comment on above: Performed By: #### P OCGLUC #### [facility] [address] [place] [address] Dr. David Swann Hematocrit (Bld) [Volume fraction] 39.4 % Normal 36.0-48.0 [facility] Comment on above: Performed By: #### P OCGLUC #### [facility] [address] [address] [address] David Swann Hemoglobin (Bld) [Mass/Vol] 12.1 g/dL Normal 12.0-16.0 [facility] Comment on above: Performed By: #### P OCGLUC #### [facility] [address] [address] [address] David Swann IG # 0.06 10e3/ul Critically high 0.00-0.03 [facility] Comment on above: Performed By: #### P OCGLUC #### [facility] [address] [address] [address] David Swann IG % 0.5 % Normal 0.0-0.5 [facility] Comment on above: Performed By: #### P OCGLUC #### [facility] [address] [address] [address] David Swann LYMPH # 2.9 103/ul Normal 1.2-3.8 [facility] Comment on above: Performed By: #### P OCGLUC #### [facility] [address] [address] [address] David Swann Lymphocytes/100 WBC (Bld) 23.1 % Normal 20.5-60.0 [facility] Comment on above: Performed By: #### P OCGLUC #### [facility] [address] [address] [address] David Swann MANUAL DIFF REQ NO Normal [facility] Comment on above: Performed By: #### P OCGLUC #### [facility] [address] [address] [address] David Swann MCH (RBC) [Entitic mass] 26.2 pg Critically low 26.7-34.0 [facility] Comment on above: Performed By: #### P OCGLUC #### [facility] [address] [address] [address] David Swann MCHC (RBC) [Mass/Vol] 30.7 g/dL Normal 29.9-35.2 [facility] Comment on above: Performed By: #### P OCGLUC #### [facility] [address] [address] [address] David Swann MCV (RBC) [Entitic vol] 85.3 fL Normal 81.0-99.0 [facility] Comment on above: Performed By: #### P OCGLUC #### [facility] [address] [address] [address] David Swann MONO # 0.7 103/ul Normal 0.3-0.8 [facility] Comment on above: Performed By: #### P OCGLUC #### [facility] [address] [address] [address] David Swann Monocytes/100 WBC (Bld) 5.4 % Normal 1.7-12.0 [facility] Comment on above: Performed By: #### P OCGLUC #### [facility] [address] [address] [address] David Swann NEUT # 8.5 103/ul Critically high 1.4-6.5 [facility] Comment on above: Performed By: #### P OCGLUC #### [facility] [address] [address] [address] David Swann Neutrophils/100 WBC (Bld) 67.8 % Normal 43.0-75.0 [facility] Comment on above: Performed By: #### P OCGLUC #### [facility] [address] [address] [address] David Swann Platelet mean volume (Bld) [Entitic vol] 10.2 fL Normal 9.5-13.5 [facility] Comment on above: Performed By: #### P OCGLUC #### [facility] [address] [address] [address] David Swann PLT 359 103/ul Normal 150-450 [facility] Comment on above: Performed By: #### P OCGLUC #### [facility] [address] [address] [address] David Swann RBC 4.62 106/ul Normal 4.20-5.40 [facility] Comment on above: Performed By: #### P OCGLUC #### [facility] [address] [place], [place] [address] Dr. David Swann WBC 12.5 103/ul Critically high 4.0-11.0 [facility] Comment on above: Performed By: #### P OCGLUC #### [facility] [address] [place], [place] [address] Dr. David Swann Covid-19 PCR ([facility])on 11-01 SARS-CoV-2 (COVID-19) RNA CARLOS+probe Ql (Unsp spec) Not detected Normal NOT DETECTED [facility] Comment on above: Result Comment: When diagnostic testing is negative, the possibility of a false negative should be considered in the context of a patient's recent exposures and the presence of clinical signs and symptoms consistent with SARS-CoV-2. This test is not yet approved or cleared by the [place] FDA. When there are no FDA-approved or cleared tests available, and other criteria are met, FDA can make tests available under an emergency access mechanism called an Emergency Use Authorization (EUA). The EUA for this test is supported by the Counter Tacker of Health and Human Service's declaration that circumstances exist to justify the emergency use of in vitro diagnostics for the detection and/or diagnosis of the virus that causes COVID-19. This EUA will remain in effect for the duration of the COVID-19 declaration justifying emergency of IVDs, unless it is terminated or revoked by the FDA (after which the test may no longer be used). Performed By: #### F ETIBC, B12FOL #### [facility] [address] [id number] David Swann ECHOCARDIO M/2D COMPLETEon 0 11-17-2021 ECHOCARDIO M/2D COMPLETE Patient: KARUNA NELSON Exam Date: 11/17/2021 : 1960 Gender:F Ordering : DR YUNI MAST . Admission #: [id number] Family : Order #: [id number] CLICK HERE TO VIEW EXAM ECHOCARDIOGRAM REPORT PROCEDURE: CARDIO PULMONARY ECHOCARDIO M/2D COMP INDICATIONS: Shortness of breath, Hypertensive Crisis COMPARISON: None. DESCRIPTION: COMPLETE ECHOCARDIOGRAM Real-time transthoracic echocardiography with 2D, M-mode, spectral and color flow Doppler performed. QUALITY: Technical quality was good. LEFT VENTRICLE: Normal chamber size. Mild left ventricular hypertrophy. Sigmoid septum. LV EF: Global left ventricular systolic function is normal; visually estimated ejection fraction is 55 to 60%. No significant wall motion abnormalities. DIASTOLIC: Grade II, moderate diastolic dysfunction. ATRIAL SEPTUM: Inadequately seen. LEFT ATRIUM: Moderate dilatation. RIGHT ATRIUM: Mild dilatation. RIGHT VENTRICLE: Normal chamber size. Normal right ventricular systolic function. TRICUSPID VALVE: Normal mobility and thickness. No stenosis with trivial regurgitation. No evidence of pulmonary hypertension. RVSP 23mmHg. MITRAL VALVE: Moderately thickened with decreased mobility. No mitral valve prolapse. Mild mitral valve stenosis. Severe mitral annular calcification. Mild mitral regurgitation. MVA 2.0 cm2 AORTIC VALVE: Normal trileaflet appearance. No visible sclerosis. Normal leaflet mobility. No evidence of aortic valve stenosis. Mild aortic regurgitation. AORTIC ROOT: Normal diameter and appearance. PULMONIC VALVE: Normal thickness and mobility. No stenosis. Trivial regurgitation. PERICARDIUM: No evidence of pericardial effusion. IVC: Collapses with inspirations. Mild dilatation measuring 2.2cm CONCLUSION: Global left ventricular systolic function is normal; visually estimated ejection fraction is 55 to 60%. No significant wall motion abnormalities. Mild left ventricular hypertrophy. Grade II, moderate diastolic dysfunction. Biatrial enlargement. The right ventricle is normal in size and systolic function. Severe mitral annular calcification. Mild mitral stenosis. Mild mitral regurgitation. Mild aortic valve regurgitation. Dictated by: Matthew Jackson M.D. on 11/17/2021 at 17:00 Approved by: Matthew Jackson M.D. on 11/17/2021 at 17:05 Normal [facility] POINT OF CARE GLUCOSEon 11-01 Glucose [Mass/Vol] 170 mg/dL Critically high 74-106 [facility] Comment on above: Performed By: #### P OCGLUC #### [facility] [address] [address] [address] David Swann Glucose [Mass/Vol] 189 mg/dL Critically high 74-106 [facility] Comment on above: Performed By: #### F ETIBC, B12FOL #### [facility] [address] [address] [address] David Swann Glucose [Mass/Vol] 99 mg/dL Normal 74-106 [facility] Comment on above: Performed By: #### P OCGLUC #### [facility] [address] [place] [address] Dr. David Swann Glucose [Mass/Vol] 95 mg/dL Normal 74-106 [facility] Comment on above: Performed By: #### F ETIBC, B12FOL #### [facility] [address] [place] [address] Dr. David Swann PROF 14(COMP METB)on 022 Albumin [Mass/Vol] 3.5 g/dL Normal 3.4-5.0 [facility] Comment on above: Performed By: #### P OCGLUC #### [facility] [address] [place] [address] Dr. David Swann Albumin/Globulin [Mass ratio] 0.7 {ratio} Normal [facility] Comment on above: Performed By: #### P OCGLUC #### [facility] [address] [place] [address] Dr. David Swann ALP [Catalytic activity/Vol] 99 U/L Normal 46-116 [facility] Comment on above: Performed By: #### P OCGLUC #### [facility] [address] [place] [address] Dr. David Swann ALT [Catalytic activity/Vol] 19 U/L Normal 14-59 [facility] Comment on above: Performed By: #### P OCGLUC #### [facility] [address] [place] [address] Dr. David Swann Anion gap [Moles/Vol] 14.5 mmol/L Normal [facility] Comment on above: Performed By: #### P OCGLUC #### [facility] [address] [place] [address] Dr. David Swann AST [Catalytic activity/Vol] 23 U/L Normal 15-37 [facility] Comment on above: Performed By: #### P OCGLUC #### [facility] [address] [place] [address] Dr. David Swann Bilirubin [Mass/Vol] 0.3 mg/dL Normal 0.2-1.0 [facility] Comment on above: Performed By: #### P OCGLUC #### [facility] [address] [address] [address] David Swann Calcium [Mass/Vol] 9.2 mg/dL Normal 8.5-10.1 [facility] Comment on above: Performed By: #### P OCGLUC #### [facility] [address] [address] [address] David Swann Chloride [Moles/Vol] 102 mmol/L Normal 98-107 [facility] Comment on above: Performed By: #### P OCGLUC #### [facility] [address] [address] [address] David Swann CO2 [Moles/Vol] 27.4 mmol/L Normal 21.0-32.0 [facility] Comment on above: Performed By: #### P OCGLUC #### [facility] [address] [address] [address] David Swann Creatinine [Mass/Vol] 1.09 mg/dL Critically high 0.55-1.02 [facility] Comment on above: Performed By: #### P OCGLUC #### [facility] [address] [address] [address] aDvid Swann EGFR-AF SIERRA LEONEAN >60 Normal >=60 [facility] Comment on above: Performed By: #### P OCGLUC #### [facility] [address] [address] [address] David Swann EGFR-NON AF SIERRA LEONEAN 51 mL/min/1.73m2 Critically low >=60 [facility] Comment on above: Performed By: #### P OCGLUC #### [facility] [address] [address] [address] David Swann Globulin (S) [Mass/Vol] 4.8 g/dL Normal [facility] Comment on above: Performed By: #### P OCGLUC #### [facility] [address] [address] [address] David Swann Glucose [Mass/Vol] 224 mg/dL Critically high 74-106 [facility] Comment on above: Performed By: #### P OCGLUC #### [facility] [address] [address] [address] David Swann Potassium [Moles/Vol] 3.9 mmol/L Normal 3.5-5.1 [facility] Comment on above: Performed By: #### P OCGLUC #### [facility] [address] [address] [address] David Swann Protein [Mass/Vol] 8.3 g/dL Critically high 6.4-8.2 [facility] Comment on above: Performed By: #### P OCGLUC #### [facility] [address] [place] [address] Dr. David Swann Sodium [Moles/Vol] 140 mmol/L Normal 136-145 [facility] Comment on above: Performed By: #### P OCGLUC #### [facility] [address] [place] [address] Dr. David Swann Urea nitrogen [Mass/Vol] 24.0 mg/dL Critically high 7.0-18.0 [facility] Comment on above: Performed By: #### P OCGLUC #### [facility] [address] [place] [address] Dr. David Swann Urea nitrogen/Creatinine [Mass ratio] 22.0 mg/mg Normal [facility] Comment on above: Performed By: #### P OCGLUC #### [facility] [address] [place] [address] Dr. David Swann TROPONIN, HIGH SENSITIVITYon 11-17-2021 HSTROP 44.7 pg/mL Normal 4.0-51.3 [facility] Comment on above: Result Comment: CUT- OFF POINTS HAVE BEEN ESTABLISHED BASED ON THE FOURTH UNIVERSAL DEFINITIONS OF MYOCARDIAL INFARCTION. THE UPPER REFERENCE LIMIT (URL) OF TROPONIN, DEFINED THE 99TH PERCENTILE OF cTnI DISTRIBUTION IN A REFERENCE POPULATION, HAS BEEN CONFIRMED THE DECISION THRESHOLD FOR TX DIAGNOSIS. Performed By: #### P OCGLUC #### [facility] [address] [place] [address] Dr. David Swann XR CHEST 1 Von 11-17-2021 XR CHEST 1 V EXAM: XR CHEST 1 V HISTORY: SHORTNESS OF BREATH COMPARISON: None. TECHNIQUE: Single frontal view chest x-ray FINDINGS: Moderate bilateral mid and lower lung opacities.. Cardiomegaly. Bilateral pulmonary vascular prominence/congestion. Small bilateral lower pleural effusion suspected. No pneumothorax or acute bony abnormality. Calcified plaque thoracic aortic knob. IMPRESSION: Moderate bilateral mid and lower lung opacities reflecting edema or other lung infiltrates. Correlate clinically. Cardiomegaly and bilateral pulmonary vascular prominence/congestion. Small bilateral lower pleural effusion suspected. Electronically authenticated by: RHETT MARY Date: 2021-11-17 00:49 Normal [facility] GLYCOHEMOGLOBIN A1Con 2021 ADA RECOMMENDATION SEE BELOW Normal [facility] Comment on above: Result Comment: ADA RECOMMENDED LIMIT 4.0 - 6.0 ADA THERAPEUTIC TARGET < 7.0 ACTION SUGGESTED > 7.0 Performed By: #### A 1C #### [facility] [address] [address] [address] David Swann Glucose [Mass/Vol] 154 mg/dL Normal [facility] Comment on above: Performed By: #### A 1C #### [facility] [address] [address] [address] David Swann HbA1c (Bld) [Mass fraction] 7.0 % Critically high 4.5-6.2 [facility] Comment on above: Performed By: #### A 1C #### [facility] [address] [address] [address] David Swann LIPID PROFILEon 11-03-2021 CHOL-HDL RATIO NORM SEE BELOW Normal [facility] Comment on above: Result Comment: 3.3 - 4.4 LOW RISK 4.4 - 7.1 AVERAGE RISK 7.1 - 11.0 MODERATE RISK >11.0 HIGH RISK Performed By: #### L MICHELLE LIPID #### [facility] [address] [address] [address] David Swann Cholesterol [Mass/Vol] 134 mg/dL Normal <=200 [facility] Comment on above: Performed By: #### L MICHELLE LIPID #### [facility] [address] [address] [address] David Swann Cholesterol in HDL [Mass/Vol] 36 mg/dL Critically low 40-60 [facility] Comment on above: Performed By: #### L IVER, LIPID #### [facility] [address] [address] [address] David Swann Cholesterol in LDL [Mass/Vol] 71.6 mg/dL Normal [facility] Comment on above: Performed By: #### L IVER, LIPID #### [facility] [address] [place] [address] Dr. David Swann Cholesterol.total/Cho lesterol in HDL [Mass ratio] 3.7 {ratio} Normal [facility] Comment on above: Performed By: #### L IVCHRISTO, LIPID #### [facility] [address] [place] [address] Dr. David Swann HDL NORMAL > or = 60 mg/dl - LO W CARDIOVASCULAR RISK <40 mg/dl - HIGH CARDIOVASCULAR RISK Normal [facility] Comment on above: Performed By: #### L IVER, LIPID #### [facility] [address] [place] [address] Dr. David Swann LDL CALC NORMAL SEE BELOW Normal [facility] Comment on above: Result Comment: <100 mg/dl OPTIMAL 100 - 129 mg/dl NEAR OR ABOVE OPTIMAL 130 - 159 mg/dl BORDERLINE HIGH 160 - 189 mg/dl HIGH >190 mg/dl VERY HIGH Performed By: #### L IVCHRISTO, LIPID #### [facility] [address] [address] [address] David Swann Triglyceride [Mass/Vol] 132 mg/dL Normal <=150 [facility] Comment on above: Performed By: #### L IVCHRISTO, LIPID #### [facility] [address] [address] [address] David Swann VLDL CALC 26.4 mg/dL Normal [facility] Comment on above: Performed By: #### L IVER, LIPID #### [facility] [address] [address] [address] David Swann LIVER PROFILEon 11-03-2021 Albumin [Mass/Vol] 3.4 g/dL Normal 3.4-5.0 [facility] Comment on above: Performed By: #### L IVER, LIPID #### [facility] [address] [place] [address] Dr. David Swann Albumin/Globulin [Mass ratio] 0.8 {ratio} Normal [facility] Comment on above: Performed By: #### L IVER, LIPID #### [facility] [address] [address] [address] David Swann ALP [Catalytic activity/Vol] 73 U/L Normal 46-116 [facility] Comment on above: Performed By: #### L IVER, LIPID #### [facility] [address] [place] [address] Dr. David Swann ALT [Catalytic activity/Vol] 14 U/L Normal 14-59 [facility] Comment on above: Performed By: #### L IVER, LIPID #### [facility] [address] [place] [address] Dr. David Swann AST [Catalytic activity/Vol] 10 U/L Critically low 15-37 [facility] Comment on above: Performed By: #### L IVER, LIPID #### [facility] [address] [place] [address] Dr. David Swann BILI, CONJUGATED 0.0 mg/dL Normal 0.0-0.2 [facility] Comment on above: Performed By: #### L IVER, LIPID #### [facility] [address] [place] [address] Dr. David Swann Bilirubin [Mass/Vol] 0.3 mg/dL Normal 0.2-1.0 [facility] Comment on above: Performed By: #### L IVER, LIPID #### [facility] [address] [place] [address] Dr. David Swann Globulin (S) [Mass/Vol] 4.4 g/dL Normal [facility] Comment on above: Performed By: #### L IVER, LIPID #### [facility] [address] [place] [address] Dr. David Swann Protein [Mass/Vol] 7.8 g/dL Normal 6.4-8.2 [facility] Comment on above: Performed By: #### L MICHELLE, LIPID #### [facility] [address] [address] [address] David Swann ECHOCARDIO M/2D COMPLETEon 0 08-18-2021 ECHOCARDIO M/2D COMPLETE Patient: KARUNA NELSON Exam Date: 08/18/2021 : 1960 Gender:F Ordering : DR YUNI MATS . Admission #: [id number] Family : Order #: [id number] CLICK HERE TO VIEW EXAM ECHOCARDIOGRAM REPORT PROCEDURE: CARDIO PULMONARY ECHOCARDIO M/2D COMP INDICATIONS: CVA, h/o TIA's, hypertension COMPARISON: None. DESCRIPTION: COMPLETE ECHOCARDIOGRAM Real-time transthoracic echocardiography with 2D, M-mode, spectral and color flow Doppler performed. QUALITY: Technical quality was good. LEFT VENTRICLE: Normal chamber size. Moderate concentric left ventricular hypertrophy. LV EF: Normal left ventricular ejection fraction, (>55%). DIASTOLIC: ATRIAL SEPTUM: Intact atrial septum. Agitated saline contrast does not reveal an intra-cardiac shunt. LEFT ATRIUM: Normal chamber size. RIGHT ATRIUM: Normal chamber size. RIGHT VENTRICLE: Normal chamber size. Normal right ventricular systolic function. TRICUSPID VALVE: Normal mobility and thickness. No stenosis with mild regurgitation. Doppler studies reveal moderately (45-60) elevated right sided pressures. RVSP is 49 mmHg MITRAL VALVE: Normal mobility and thickness. No evidence of mitral valve stenosis. Moderate to severe mitral annular calcification. Trivial mitral regurgitation. AORTIC VALVE: Normal trileaflet appearance. Mildly calcified aortic valve. Mildly diminished mobility. Doppler velocities suggest mild aortic valve stenosis. Peak velocity 2.1 m/s, mean gradient 7 mmHg. DVI 0.47. Mild aortic regurgitation. AORTIC ROOT: Normal diameter and appearance. PULMONIC VALVE: Normal thickness and mobility. No stenosis. Trivial regurgitation. PERICARDIUM: No evidence of pericardial effusion. IVC: Collapses with inspirations. IVC is normal in size. PLEURA: CONCLUSION: 1. Moderate concentric left ventricular hypertrophy with normal systolic function. LVEF is 65%. 2. Normal right ventricular systolic function. 3. Mild aortic valve stenosis with mild regurgitation. 4. Mild tricuspid valve regurgitation. 5. Moderate to severe mitral annular calcification with no significant mitral stenosis. 6. Moderately elevated right-sided pressures. 7. No evidence of intracardiac shunt by agitated saline study. Adult Echocardiography Procedure Report Left Ventricle LVEDD (3.7 - 5.6 cm): 4.24 cm LVESD (2.2 - 4.0 cm): 2.99 cm LVIVS thickness (0.6 - 1.2 cm): 1.59 cm LVPW thickness (0.5 - 1.0 cm): 1.61 cm LVOT Area (cm2): 3.14 cm2 Peak Velocity (LVOT): 100.00 cm/s LVOT Diameter 2.00 cm Left Ventricular Ejection Fraction: 65 % Left Atrium LA Volume Index (2D A2C): 33.20 ml/m2 Left Atrium Systolic Dimension: 4.60 cm Left Atrium Systolic Area(A2C): 21.30 cm2 Left Atrium Systolic Area(A4C): 21.70 cm2 Left Atrium Systolic Volume(A2C): 66596 mm3 Left Atrium Systolic Volume(A4C): 27868 mm3 Mitral Valve MV E to A Ratio: 1.10 MV Mean Gradient: 4 mm[Hg] Deceleration Hood: 9280 mm/s2 Cardiovascular Orifice Area: 1.63 cm2 Mitral Valve A-Wave Peak Velocity: 127.00 cm/s Mitral Valve E-Wave Peak Velocity: 140.00 cm/s Deceleration Time: 283 ms Cardiovascular Orifice Area: 3.93 cm2 Right Ventricle Aorta AO Root Diam: 3.50 cm Aortic Valve Peak Velocity (Antegrade Flow): 209.00 cm/s AoV Area (Peak Sam): 2.35 cm2 AoV Area (VTI): 2.09 cm2 Peak Velocity(Antegrade Flow): 214.00 cm/s Peak Gradient(Antegrade Flow): 18 mm[Hg] Mean Velocity(Antegrade Flow): 127.00 cm/s Mean Gradient(Antegrade Flow): 8 mm[Hg] Velocity Time Integral: 45.90 cm Tricuspid Valve Pulmonic Valve Peak Velocity: 129.00 cm/s Peak Gradient: 7 mm[Hg] Right Atrium Dictated by: Jonathon Santana M.D. on 08/18/2021 at 20:14 Approved by: Jonathon Santana M.D. on 08/18/2021 at 20:20 Normal [facility] US CAROTID ART BILon 05-16-2 022 US CAROTID ART DIANA EXAMINATION: US YOUNG TID ART DIANA HISTORY: Cerebrovascular accident COMPARISON: No relevant comparison available. TECHNIQUE: Duplex Doppler ultrasound analysis of carotid and vertebral arteries. . Bilateral carotid arterial duplex examination was performed using B-mode, color flow and spectral analysis. Carotid stenosis is reported according to validated velocity parameters, similar to NASCET criteria. FINDINGS: RIGHT CAROTID ARTERY: Mild atherosclerotic plaque without significant stenosis; 37% area reduction of the carotid bulb. RIGHT VERTEBRAL: Antegrade flow. Subclavian: PSV: 154.9 cm/s EDV: 0.0 cm/s CCA: Prox: PSV: 63.3 cm/s EDV: 7.3 cm/s Mid: PSV: 73.2 cm/s EDV: 9.5 cm/s Distal: PSV: 53.7 cm/s EDV: 5.8 cm/s BULB: PSV: 64.2 cm/s EDV: 11.0 cm/s ICA: Prox: PSV: 73.2 cm/s EDV: 10.6 cm/s Mid: PSV: 78.7 cm/s EDV: 12.8 cm/s Distal: PSV: 87.5 cm/s EDV: 14.9 cm/s ECA: PSV: 141.1 cm/s EDV: 5.1 cm/s VERTEBRAL: PSV: 61.6 cm/s EDV: 7.5 cm/s ICA/CCA ratio: PSV: 1.6 EDV: 2.6 LEFT CAROTID ARTERY: Mild atherosclerotic plaque without significant stenosis. Elevated flow velocity within the distal ICA without visible plaque. LEFT VERTEBRAL: Antegrade flow. Subclavian: PSV: 164.7 cm/s EDV: 6.7 cm/s CCA: Prox: PSV: 74.5 cm/s EDV: 8.5 cm/s Mid: PSV: 86.2 cm/s EDV: 11.1 cm/s Distal: PSV: 69.4 cm/s EDV: 8.5 cm/s BULB: PSV: 83.6 cm/s EDV: 9.8 cm/s ICA: Prox: PSV: 127.3 cm/s EDV: 22.9 cm/s Mid: PSV: 119.9 cm/s EDV: 15.3 cm/s Distal: PSV: 171.0 cm/s EDV: 31.6 cm/s ECA: PSV: 164.0 cm/s EDV: 8.4 cm/s VERTEBRAL: PSV: 34.7 cm/s EDV: 8.4 cm/s ICA/CCA ratio: PSV: 2.5 EDV: 3.7 IMPRESSION: 1. 0-49% flow stenosis within the right carotid artery. 2. Elevated flow velocity within left distal ICA suggesting 50-69% flow stenosis, despite no visible plaque. This area is not as well seen. Consider CTA of the carotid arteries if clinically indicated. Electronically authenticated by: LYRIC PADRON Date: 2021-08-16 13:09 Normal [facility] MRI BRAIN WO CONon MRI BRAIN WO CON EXAMINATION: MRI BRA IN [facility], 08/02/2021 9:52 AM EDT HISTORY: Headache , acute right hand weakness for 4 days COMPARISON: None. TECHNIQUE: MRI of the brain was performed without IV contrast. FINDINGS: CEREBRUM: Small area of restricted diffusion within the anterior left parietal lobe which also demonstrates increased signal on the T2 and FLAIR sequences favoring subacute infarction. Several areas of increased T2 signal scattered within the periventricular and subcortical deep white matter on the FLAIR sequence suggestive of chronic small vessel ischemic changes. Possible 3.3 mm aneurysmal dilation of the M1 segment of the right carotid artery. CEREBELLUM: No edema, hemorrhage, mass, acute infarction, or inappropriate atrophy. BRAINSTEM: No edema, hemorrhage, mass, acute infarction, or inappropriate atrophy. CSF SPACES: Ventricles, cisterns, and sulci are appropriate for age. No hydrocephalus, subarachnoid hemorrhage, or mass. SKULL: No mass or other significant visible lesion. SINUSES: Mucocele/retention cysts within base of left maxillary sinus. ORBITS: Limited views are unremarkable. OTHER: Negative. IMPRESSION: 1. Small area of subacute ischemic infarction within anterior left parietal lobe consistent with patient's symptoms. 2. Multifocal mild-moderate chronic small vessel ischemic changes. 3. No intracranial hemorrhage or mass. 4. Mild aneurysmal dilation suspect involving the M1 segment of the right suprasellar carotid artery. Consider follow-up CT angiography of the head for further evaluation. 5. Mild chronic sinusitis. Electronically authenticated by: LYRIC PADRON Date: 2021-08-02 10:25 Normal [facility] Cardiovascular Lab Reporton 08-08-2020 Cardiovascular Lab Report [facility] Patient Name: [facility] Fernanda Beckman MR #: [id number] Department of Physician: Ivan Mosley M.D. Division of Service Date: 08/07/2020 Cardiology Birthdate: 1960 Adult Cardiovascular Room #: [address] [place] [address] Cardiovascular Laboratory Report CLINICAL PRESENTATION: The patient is a 59-year-old female with past medical history significant for obesity, type 2 diabetes mellitus on insulin, hyperlipidemia, hypertension, prior TIA in 2012, COPD. She has chest pain radiating to the neck and had an abnormal cardiac stress test. She has very limited exercise capacity and only exercised for approximately 2 minutes. She is referred for right heart catheterization and coronary angiogram. FINAL IMPRESSION: 1. Right heart catheterization shows acute diastolic congestive heart failure with a mean wedge pressure of 27 mmHg. In addition, there is moderate pulmonary hypertension, largely related to diastolic heart failure (WHO class 2). 2. Cardiac output and cardiac index are reduced. 3. Coronary angiogram reveals mild coronary artery disease. PLAN: 1. Optimal medical therapy for diastolic congestive heart failure and hypertension as tolerated. 2. Add Lasix 40 mg once daily. 3. Add spironolactone 25 mg once daily. Spironolactone is one of the only medication that is proven to be effective for diastolic heart failure and this was studied in the TOPCAT trial. 4. Consider addition of Entresto, which was recently approved for diastolic congestive heart failure as well. 5. Weight loss and diabetes control are needed. PROCEDURES: Coronary angiogram, right heart catheterization, ultrasound guidance for vascular access, conscious sedation 36 minutes. INDICATION: Chest pain, abnormal cardiac stress test, shortness of breath, possible CHF. PROCEDURE DESCRIPTION: The patient was brought to cardiac catheterization lab in a fasting state. Informed written consent was obtained. She was prepped and draped in usual sterile fashion over the right neck and right wrist. Time-out was performed. She was given Versed and fentanyl for sedation. A 1% lidocaine was infiltrated over the right internal jugular vein. Using ultrasound guidance and a micropuncture access technique, a 6-[place]atorial [place] sheath was placed in right internal jugular vein. Next, the Chaidez catheter was advanced under fluoroscopic and hemodynamic monitoring to the right atrium. Pressure obtained in the right atrium, right ventricle, pulmonary artery, pulmonary capillary wedge position. Oxygen saturation was drawn from the pulmonary artery and the Yahaira cardiac output and cardiac index were calculated. The Chaidez catheter was then removed. The area over the right radial artery was anesthetized with 1% lidocaine. A 6-[place]atorial [place] Terumo Glidesheath Slender was placed in the right radial artery. The radial anti-vasospasm cocktail of nitroglycerin 200 mcg and verapamil 2.5 mg administered through the sheath. All catheter exchanges were made over the J-tip guidewire. A 5-[place]atorial [place] JR5 was used to engage the right coronary artery. A 5-[place]atorial [place] JL3.5 was used to engage the left main coronary artery. Coronary angiogram was performed in multiple orthogonal views using hand injection of contrast. At this time, procedures completed. All catheters and wires were removed from the body. Right radial sheath was removed and TR band was applied to obtain hemostasis. The right internal jugular venous sheath was removed and manual pressure applied to obtain hemostasis. There were no apparent complications. TOTAL CONTRAST: 45 mL. TOTAL CONSCIOUS SEDATION TIME: 36 minutes. TOTAL FLUOROSCOPY TIME: 3 minutes 11 seconds, 0.5 Gy. FINDINGS: Hemodynamics/right heart catheterization: 1. Right atrial pressure mean 19. 2. RV 83/24. 3. PA 76/27 (mean 47). 4. Pulmonary capillary wedge pressure mean 27. 5. Transpulmonary gradient mean 20 mmHg. 6. Pulmonary vascular resistance 5.3 Wood units (mild to moderately elevated). 7. Aortic pressure 156/65 (MAP 99). 8. Yahaira cardiac output 3.8 L/minute. Yahaira cardiac index 1.9 L/minute/m2. 9. Oxygen saturation PA sat 50%, AO sat 95%. CORONARY ANGIOGRAM: Left main coronary artery: Patent. Left anterior descending coronary artery: The LAD is a large vessel. The LAD is patent. The mid LAD has calcified 30% stenosis. There is a large first diagonal branch, almost in a ramus position. This is widely patent. The 2nd diagonal branch is also patent. Left circumflex coronary artery: The circumflex is a diminutive vessel and is patent. The circumflex has a very limited territory supplied due to its very small size. Right coronary artery: The RCA is a very large vessel and is dominant. The mid RCA has diffuse 30% stenosis. The remainder of the RCA is patent. The posterolateral (more content not included)... Normal [facility] CBC COMPLETE BLOOD COUNTon 0 08-07-2020 Erythrocyte distribution width (RBC) [Ratio] 20.8 % High 11.5-15.0 [facility] Comment on above: Performed By: #### [id number] #### [facility] [address] [place] [address], [facility] Hematocrit (Bld) [Volume fraction] 38.7 % Normal 36.0-45.0 [facility] Comment on above: Performed By: #### [id number] #### [facility] [address] [place] [address], [facility] Hemoglobin (Bld) [Mass/Vol] 11.6 g/dL Low 12.0-15.0 [facility] Comment on above: Performed By: #### [id number] #### [facility] [address] [place] [address], [facility] MCH (RBC) [Entitic mass] 23.0 pg Low 27.0-33.0 [facility] Comment on above: Performed By: #### [id number] #### [facility] [address] [place] [address], [facility] MCHC (RBC) [Mass/Vol] 30.0 g/dL Low 32.0-35.0 [facility] Comment on above: Performed By: #### [id number] #### [facility] [address] [place] [address], [facility] MCV (RBC) [Entitic vol] 76.6 fL Low 82.0-98.0 [facility] Comment on above: Performed By: #### [id number] #### [facility] [address] [place] [address], [facility] Nucleated RBC/100 WBC (Bld) [Ratio] 0 % Normal 0-0 [facility] Comment on above: Performed By: #### [id number] #### [facility] [address] [place] [address], [facility] PLAT CNT 419 10*3/uL High 150-400 [facility] Comment on above: Performed By: #### [id number] #### [facility] [address] [place] [address], [facility] RBC (Bld) [#/Vol] 5.05 10*6/uL High 3.80-5.00 [facility] Comment on above: Performed By: #### [id number] #### [facility] [address] [place] [address], [facility] WBC (Bld) [#/Vol] 10.00 10*3/uL Normal 4.00-10.60 [facility] Comment on above: Performed By: #### [id number] #### [facility] [address] Vital Signs Date Time Vital Sign Value Performing Clinician Joseph medina 05-18-2023 09:37-0500 Body temperature 98.06 [degF] [facility] 05-18-2023 09:37-0500 Diastolic blood pressure 68 mm[Hg] [facility] 05-18-2023 09:37-0500 Heart rate 57 /min [facility] 05-18-2023 09:37-0500 Mean blood pressure 88 mm[Hg] [facility] 05-18-2023 09:37-0500 Respiratory rate 16 /min [facility] 05-18-2023 09:37-0500 SaO2% (BldA) [Mass fraction] 99 % [facility] 05-18-2023 09:37-0500 Systolic blood pressure 128 mm[Hg] [facility] 05-16-2023 11:00-0500 Blood Pressure Location BETHANY CLOAK [facility] 05-16-2023 11:00-0500 Body temperature 98.42 [degF] [facility] CLO[facility] 05-16-2023 11:00-0500 Diastolic blood pressure 39 mm[Hg] [facility] CLO[facility] 05-16-2023 11:00-0500 Heart rate 56 /min [facility] CLOAK [facility] 05-16-2023 11:00-0500 Mean blood pressure 58 mm[Hg] [facility] CLOAK [facility] 05-16-2023 11:00-0500 Respiratory rate 16 /min [facility]ETH[facility] CLOAK [facility] 05-16-2023 11:00-0500 SaO2% (BldA) [Mass fraction] 97 % [facility] CLOAK [facility] 05-16-2023 11:00-0500 Systolic blood pressure 97 mm[Hg] [facility] CLOAK [facility] 05-15-2023 07:36-0500 Blood Pressure Location Felix Christofferson [facility] 05-15-2023 07:36-0500 Diastolic blood pressure 44 mm[Hg] Felix Christofferson [facility] 05-15-2023 07:36-0500 Heart rate 54 /min Felix Christofferson [facility] 05-15-2023 07:36-0500 Respiratory rate 20 /min Felix Christofferson [facility] 05-15-2023 07:36-0500 SaO2% (BldA) [Mass fraction] 100 % Felix Christofferson [facility] 05-15-2023 07:36-0500 Systolic blood pressure 138 mm[Hg] Felix Jolly [facility] 05-08-2023 11:56-0500 Body temperature 97.2 [degF] Edison Pinto MD Work Phone: [facility] 05-08-2023 11:56-0500 Body weight 89.5 kg Edison Pinto MD Work Phone: [facility] 05-08-2023 11:56-0500 Diastolic blood pressure 53 mm[Hg] Edison Pinto MD Work Phone: [facility] 05-08-2023 11:56-0500 Heart rate 62 /min Edison Pinto MD Work Phone: [facility] 05-08-2023 11:56-0500 Respiratory rate 18 /min Edison Pinto MD Work Phone: [facility] 05-08-2023 11:56-0500 SaO2% (BldA) [Mass fraction] 98 % Edison Pinto MD Work Phone: [facility] 05-08-2023 11:56-0500 Systolic blood pressure 112 mm[Hg] Edison Pinto MD Work Phone: [facility] 05-05-2023 12:46-0500 Diastolic blood pressure 62 mm[Hg] Felix Jolly [facility] 05-05-2023 12:46-0500 Heart rate 62 /min Felix Jolly [facility] 05-05-2023 12:46-0500 SaO2% (BldA) [Mass fraction] 98 % Felix Jolly [facility] 05-05-2023 12:46-0500 Systolic blood pressure 138 mm[Hg] Felix Jolly [facility] 05-04-2023 11:24-0500 Body temperature 98.06 [degF] Frankie Sarabia [facility] 05-04-2023 11:24-0500 Diastolic blood pressure 50 mm[Hg] Frankie Sarabia [facility] 05-04-2023 11:24-0500 Heart rate 53 /min Frankie Sarabia [facility] 05-04-2023 11:24-0500 Mean blood pressure 68 mm[Hg] Frankie Sarabia [facility] 05-04-2023 11:24-0500 Respiratory rate 16 /min Frankie Sarabia [facility] 05-04-2023 11:24-0500 SaO2% (BldA) [Mass fraction] 99 % Frankieeduardo Sarabia [facility] 05-04-2023 11:24-0500 Systolic blood pressure 104 mm[Hg] Frankieeduardo Sarabia [facility] 04-28-2023 11:01-0500 Body temperature 97.9 [degF] Shailesh Miranda MD Work Phone: [facility] 04-28-2023 11:01-0500 Diastolic blood pressure 56 mm[Hg] Shailesh Miranda MD Work Phone: [facility] 04-28-2023 11:01-0500 Heart rate 58 /min Shailesh Miranda MD Work Phone: [facility] 04-28-2023 11:01-0500 Respiratory rate 16 /min Shailesh Miranda MD Work Phone: [facility] 04-28-2023 11:01-0500 SaO2% (BldA) [Mass fraction] 97 % Shailesh Miranda MD Work Phone: [facility] 04-28-2023 11:01-0500 Systolic blood pressure 137 mm[Hg] Shailesh Miranda MD Work Phone: [facility] 04-23-2023 13:30-0500 Body height 157.5 cm Shailesh Miranda MD Work Phone: [employer] 04-23-2023 13:30-0500 Body mass index (BMI) [Ratio] 38.78 kg/m2 Shailesh Miranda MD Work Phone: [employer] 04-23-2023 13:30-0500 Body weight 96.2 kg Shailesh Miranda MD Work Phone: [employer] 04-18-2023 11:00-0500 Body height 157.48 cm Luc Vargas Other [employer] Other 04-18-2023 11:00-0500 Body mass index (BMI) [Ratio] 38.04 kg/m2 Luc Vargas Other [employer] Other 04-18-2023 11:00-0500 Body temperature 96.3 [degF] Luc Vargas Other [employer] Other 04-18-2023 11:00-0500 Body weight 94.35 kg Luc Vargas Other [employer] Other 04-18-2023 11:00-0500 Diastolic blood pressure 60 mm[Hg] Luc Vargas Other [employer] Other 04-18-2023 11:00-0500 SaO2% (BldA) [Mass fraction] 97 % Luc Vargas Other [employer] Other 04-18-2023 11:00-0500 Systolic blood pressure 128 mm[Hg] Luc Vargas Other [employer] Other 03-30-2023 09:02-0500 Diastolic blood pressure 73 mm[Hg] Radha DURBIN [facility] 03-30-2023 09:02-0500 Mean blood pressure 90 mm[Hg] Radha DURBIN [facility] 03-30-2023 09:02-0500 Systolic blood pressure 124 mm[Hg] Radha DURBIN [facility] 03-30-2023 08:52-0500 Blood Pressure Location Radhamadonna DURBIN [facility] 03-30-2023 08:52-0500 Diastolic blood pressure 71 mm[Hg] Radha DURBIN [facility] 03-30-2023 08:52-0500 Heart rate 58 /min Radha DURBIN [facility] 03-30-2023 08:52-0500 SaO2% (BldA) [Mass fraction] 98 % Radha DURBIN [facility] 03-30-2023 08:52-0500 Systolic blood pressure 147 mm[Hg] Radha DURBIN [facility] 03-17-2023 16:05-0500 Body temperature 97.5 [degF] MD Esau Riddle Work Phone: [facility] 03-17-2023 16:05-0500 Diastolic blood pressure 78 mm[Hg] MD Esau Riddle Work Phone: [facility] 03-17-2023 16:05-0500 Heart rate 63 /min MD Esau Riddle Work Phone: [facility] 03-17-2023 16:05-0500 Respiratory rate 16 /min MD Esau Riddle Work Phone: [facility] 03-17-2023 16:05-0500 SaO2% (BldA) [Mass fraction] 92 % MD Esau Riddle Work Phone: [facility] 03-17-2023 16:05-0500 Systolic blood pressure 186 mm[Hg] MD Esau Riddle Work Phone: [facility] 03-17-2023 09:00-0500 Body height 157.48 cm MD Esau Riddle Work Phone: [facility] 03-17-2023 08:00-0500 Inhaled oxygen flow rate 2 L/min MD Esau Riddle Work Phone: [facility] 03-17-2023 06:13-0500 Body weight 101.5 kg MD Esau Riddle Work Phone: [facility] 03-16-2023 12:34-0500 Body mass index (BMI) [Ratio] 40.2 kg/m2 MD Esau Riddle Work Phone: [facility] 03-01-2023 12:08-0500 Diastolic blood pressure 68 mm[Hg] MD Esau Riddle Work Phone: [facility] 03-01-2023 12:08-0500 Heart rate 69 /min MD Esau Riddle Work Phone: [facility] 03-01-2023 12:08-0500 Respiratory rate 20 /min MD Esau Riddle Work Phone: [facility] 03-01-2023 12:08-0500 SaO2% (BldA) [Mass fraction] 91 % MD Esau Riddle Work Phone: [facility] 03-01-2023 12:08-0500 Systolic blood pressure 160 mm[Hg] MD Esau Riddle Work Phone: [facility] 03-01-2023 07:03-0500 Body height 157.48 cm MD Esau Riddle Work Phone: [facility] 03-01-2023 07:03-0500 Body weight 99.79 kg MD Esau Riddle Work Phone: [facility] 02-14-2023 11:45-0500 Body height 157.48 cm Luc Vargas Other [employer] Other 02-14-2023 11:45-0500 Body mass index (BMI) [Ratio] 38.77 kg/m2 Luc Vargas Other [employer] Other 02-14-2023 11:45-0500 Body temperature 97.8 [degF] Luc Garciadrea Other [employer] Other 02-14-2023 11:45-0500 Body weight 96.16 kg Luc Vargas Other [employer] Other 02-14-2023 11:45-0500 Diastolic blood pressure 68 mm[Hg] Luc Garciadrea Other [employer] Other 02-14-2023 11:45-0500 SaO2% (BldA) [Mass fraction] 97 % Luc Vargas Other [employer] Other 02-14-2023 11:45-0500 Systolic blood pressure 136 mm[Hg] Luc Garciar Other [employer] Other 01-13-2023 16:15-0400 Diastolic blood pressure 91 mm[Hg] Alejandro Currane [facility] 01-13-2023 16:15-0400 Heart rate 63 /min Alejandro Currane [facility] 01-13-2023 16:15-0400 Respiratory rate 18 /min Alejandro Currane [facility] 01-13-2023 16:15-0400 SaO2% (BldA) [Mass fraction] 98 % Alejandro Currane [facility] 01-13-2023 16:15-0400 Systolic blood pressure 144 mm[Hg] Alejandro Gongora [facility] 01-13-2023 13:26-0400 Body temperature 97.52 [degF] Alejandro Gongora [facility] 01-13-2023 13:26-0400 Diastolic blood pressure 55 mm[Hg] Alejandro Gongora [facility] 01-13-2023 13:26-0400 Heart rate 62 /min Alejandro Gongora [facility] 01-13-2023 13:26-0400 Respiratory rate 18 /min Alejandro Gongora [facility] 01-13-2023 13:26-0400 SaO2% (BldA) [Mass fraction] 97 % Alejandro Gongora [facility] 01-13-2023 13:26-0400 Systolic blood pressure 122 mm[Hg] Alejandro Gongora [facility] 06-27-2022 11:30-0400 Body height 157.48 cm Luc Vargas Other [employer] [facility] [employer] Other 06-27-2022 11:30-0400 Body mass index (BMI) [Ratio] 39.87 kg/m2 Luc Vargas Other [employer] Other 06-27-2022 11:30-0400 Body temperature 96.8 [degF] Luc Vargas Other [employer] Other 06-27-2022 11:30-0400 Body weight 98.88 kg Luc Vargas Other [employer] Other 06-27-2022 11:30-0400 Diastolic blood pressure 48 mm[Hg] Luc Buehrer Other [employer] Other 06-27-2022 11:30-0400 SaO2% (BldA) [Mass fraction] 93 % Luc Buehrer Other [employer] Other 06-27-2022 11:30-0400 Systolic blood pressure 220 mm[Hg] Luc Buehrer Other [employer] Other 10-26-2021 13:50-0400 Body height 157.48 cm Luc Buehrer Other [employer] Other 10-26-2021 13:50-0400 Body mass index (BMI) [Ratio] 40.23 kg/m2 Luc Buehrer Other [employer] Other 10-26-2021 13:50-0400 Body temperature 96.3 [degF] Luc Buehrer Other [employer] Other 10-26-2021 13:50-0400 Body weight 99.79 kg Luc Buehrer Other [employer] Other 10-26-2021 13:50-0400 Diastolic blood pressure 60 mm[Hg] Luc Buehrer Other [employer] Other 10-26-2021 13:50-0400 SaO2% (BldA) [Mass fraction] 96 % Luc Buehrer Other [employer] Other 10-26-2021 13:50-0400 Systolic blood pressure 160 mm[Hg] Luc Buehrer Other [facility] [employer] Other Encounters Encounter Date Encounter Type Care Provider Facility Start: 06-06-2023 ambulatory Esau Riddle Facility :[facility] Start: 05-23-2023 ambulatory Reid SHIPLEY Facility :[facility] Start: 05-19-2023 End: 05-19-2023 Office consultation new/estab patient 60 min Donnie Tamiko AmbrocioErick SPEECH TEACHER-RADIO MECHANIC HELPER Work Phone: [facility] Comment on above: Lung nodule (Primary Dx) Start: 05-19-2023 ambulatory DONNIE ISRAEL [facility] Ambulatory Start: 05-19-2023 ambulatory XXXX NONE Facility:[facility] Start: 05-18-2023 Evaluation and management of inpatient EDISON Lozano [facility] Start: 05-18-2023 End: 05-19-2023 ambulatory Frankie Sarabia Facility:[facility] Start: 05-18-2023 End: 05-18-2023 Patient encounter procedure Frankie Sarabia [facility] Start: 05-16-2023 End: 05-17-2023 ambulatory BETHANY BAKER Facility:[facility] Start: 05-16-2023 End: 05-16-2023 Patient encounter procedure BETHANY Melania CAROLE [facility] Start: 05-15-2023 End: 05-15-2023 ambulatory Felix Jolly Facility:[facility] Start: 05-15-2023 End: 05-15-2023 Admission to same day surgery center Felix Jolly [facility] Start: 05-12-2023 ambulatory XXXX NONE Facility:[facility] Start: 05-10-2023 ambulatory Frankie Sarabia [facility] ity:[facility] Start: 05-08-2023 End: 05-09-2023 ambulatory ESAU RIDDLE [facility] Start: 05-08-2023 End: 05-09-2023 ambulatory EDISON PINTO [facility] Start: 05-08-2023 End: 05-08-2023 Office outpatient new 45 minutes Edison Pinto MD Work Phone: [facility] Comment on above: 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); Malignant neoplasm of head of pancreas (CMS/HCC) Start: 05-08-2023 ambulatory Frankie Sarabia Facil ity:[facility] Start: 05-05-2023 End: 05-06-2023 ambulatory XXXX NONE Facility:[facility] Start: 05-05-2023 End: 05-05-2023 Patient encounter procedure Felix Jolly [facility] Start: 05-05-2023 End: 05-06-2023 ambulatory XXXX NONE Facility:[facility] Start: 05-04-2023 End: 05-05-2023 ambulatory Frankie Saraiba Facility:[facility] Start: 05-04-2023 End: 05-05-2023 ambulatory Frankie Sarabia Facility:[facility] Start: 05-04-2023 End: 05-04-2023 Patient encounter procedure Felix Jolly [facility] Start: 05-04-2023 End: 05-04-2023 Patient encounter procedure Frankieeduardo Sarabia [facility] Start: 05-02-2023 End: 05-03-2023 ambulatory Esau Riddle Facility:[facility] Start: 05-01-2023 ambulatory Esau Riddle Facility :CD:[id number] Start: 04-25-2023 End: 04-26-2023 ambulatory Esau Riddle Facility:[facility] [place] Start: 04-23-2023 End: 04-28-2023 Evaluation and management of inpatient LUC Peña [facility] Start: 04-23-2023 End: 04-28-2023 Evaluation and management of inpatient Shailesh Miranda MD Work Phone: [facility] Comment on above: Obstructive jaundice ; Pancreatic mass Start: 04-18-2023 Postop follow up vis it related to original px Luc Vargas [facility] Vascular Surgery Start: 04-18-2023 End: 04-18-2023 ambulatory COLE D DOLCE [facility] [employer] Other Start: 04-11-2023 End: 04-11-2023 ambulatory COLE D DOLCE Not Available Start: 04-10-2023 End: 04-11-2023 ambulatory Esau Riddle Facility:[facility] [place] Start: 04-04-2023 End: 04-04-2023 ambulatory COLE D DOLCE Not Available Start: 03-31-2023 End: 04-01-2023 ambulatory Cole D Dolce Facility:[facility] Start: 03-31-2023 End: 03-31-2023 Lab Drop off Cole D Dolce [facility] Start: 03-30-2023 End: 03-31-2023 ambulatory XXXX NONE Facility:[facility] Start: 03-30-2023 End: 03-30-2023 Patient encounter procedure Radha Melania GIFTY [facility] Start: 03-24-2023 End: 03-25-2023 ambulatory Candis Wood Facility:[facility] [place] Start: 03-22-2023 End: 03-23-2023 ambulatory Esau Riddle Facility:[facility] [place] Start: 03-22-2023 End: 03-22-2023 ambulatory COLE D DOLCE Not Available Start: 03-21-2023 End: 03-22-2023 ambulatory Esau Riddle Facility:[facility] [place] Start: 03-16-2023 End: 03-17-2023 Evaluation and management of inpatient Luc Vargas Facility:[facility] Start: 03-16-2023 End: 03-17-2023 Evaluation and management of inpatient MD Esau Riddle Work Phone: [facility] Work Phone: Start: 03-01-2023 End: 03-01-2023 ambulatory Luc Vargas Facility:[facility] Start: 03-01-2023 End: 03-01-2023 Admission to same day surgery center MD Esau Riddle Work Phone: [facility]-Interventional Radiology Work Phone: Start: 03-01-2023 End: 03-01-2023 ambulatory MD Esau Riddle Work Phone: [facility] Work Phone: Start: 02-17-2023 End: 02-17-2023 ambulatory COLE MINAYA Not Available Start: 02-14-2023 End: 02-14-2023 ambulatory Luc Vargas Other [employer] Other Start: 02-14-2023 Office outpatient visit 25 minutes Luc Vargas [facility] Start: 01-31-2023 End: 02-01-2023 ambulatory Cole Minaya Facility:[facility] Start: 01-31-2023 End: 01-31-2023 Patient encounter procedure Cole Minaya [facility] Start: 01-24-2023 End: 01-25-2023 ambulatory Cole Minaya Facility:[facility] Start: 01-24-2023 End: 01-24-2023 Lab Drop off Cole Minaya [facility] Start: 01-19-2023 ambulatory Esau Riddle Facility :[facility] Start: 01-17-2023 End: 01-18-2023 ambulatory Esau Riddle [facility] Start: 01-16-2023 ambulatory Esau Riddle Facility :[facility] [place] Start: 01-13-2023 End: 01-13-2023 Emergency department patient visit Alejandro Gongora Facility:[facility] Start: 01-13-2023 End: 01-14-2023 ambulatory Esau Riddle [facility] Start: 01-13-2023 End: 01-13-2023 Emergency department patient visit Alejandro Gongora [facility] Start: 01-02-2023 End: 01-03-2023 ambulatory Esau Riddle Facility:[facility] Start: 01-02-2023 End: 01-02-2023 ambulatory MD Yuni Mast Work Phone: [facility] Work Phone: Start: 01-02-2023 End: 01-02-2023 Patient encounter procedure MD Yuni Mast Work Phone: [facility]Ultrasound [facility] Start: 12-08-2022 End: 12-09-2022 ambulatory Esau Riddle Facility:[facility] Start: 11-16-2022 End: 11-17-2022 ambulatory Esau Riddle Facility:[facility] Start: 08-17-2022 End: 08-18-2022 ambulatory Esau Riddle Facility:[facility] [place] Start: 07-20-2022 End: 07-21-2022 ambulatory Esau Riddle Facility:[facility] [place] Start: 06-27-2022 Office outpatient visit 25 minutes Luc Vargas [facility] Vascular Surgery Start: 06-27-2022 End: 06-27-2022 ambulatory MD Yuni Mast Work Phone: [facility] Work Phone: Start: 06-27-2022 End: 06-27-2022 Patient encounter procedure MD Yuni Mast Work Phone: [facility]Ultrasound [facility] Start: 06-25-2022 End: 06-26-[address] YUNI MAST . Facility:[facility] Start: 06-22-2022 End: 06-23-2022 ambulatory YUNI MAST Facility:[facility] [place] Start: 06-15-2022 ambulatory XXXX NONE Facility:[facility] [place] Start: 01-17-[address] YUNI MAST . Facil ity:[facility] Start: 11-26-2021 End: 08-27-[address] YUNI MAST . Facility:[facility] Start: 11-17-2021 End: 11-18-2021 Evaluation and management of inpatient DR AMY MADDEN Facility:[facility] Start: 11-03-2021 End: 11-04-[address] YUNI MAST . Facility:[facility] Start: 10-26-2021 End: 10-26-2021 ambulatory Luc Vargas Other [employer] Other Start: 10-26-2021 Office outpatient visit 25 minutes Luc Vargas [facility] Vascular Surgery Start: 08-18-2021 End: 08-19-[address] YUNI MAST . Facility:[facility] Start: 08-16-2021 End: 08-17-[address] YUNI MAST . Facility:[facility] Start: 08-02-2021 End: 08-03-[address] YUNI MAST . Facility:[facility] Start: 08-07-2020 End: 08-08-2020 ambulatory CHARMAINE SETH Facility:[facility] Procedures Date Procedure Procedure Detail Performing Clinician Start: 05-15-2023 Cardiac catheterization Frankie Sarabia Comment on above: 08/21 Start: 05-15-2023 Catheterization of l eft heart Felix Jolly Start: 05-08-2023 CANCER ANTIGEN 19-9 JUAN CARLOS EMILIA WINTER Start: 05-08-2023 CBC panel - Blood by Automated count [facility] Start: 05-08-2023 COAGULATION SCREEN JORD AN WINTER Start: 05-08-2023 Comprehensive metabo lic 2000 panel - Serum or Plasma [facility] Start: 05-08-2023 Hemoglobin A1c/Hemoglobin.total in Blood [facility] Start: 05-08-2023 CASE REQUEST OPERATI NG ROOM [facility] Start: 04-28-2023 Glucose blood reagen t strip Luc P Blood DO Work Phone: Start: 04-28-2023 Antibody screen Shailesh Miranda MD Work Phone: Start: 04-28-2023 Glucose blood reagen t strip Luc P Blood DO Work Phone: Start: 04-28-2023 Comprehensive metabo lic panel Luc P Blood DO Work Phone: Start: 04-28-2023 Blood count hemoglobin Teodoro Farley SPEECH TEACHER - PRODUCTION SUPPORT CONSULTANT Work Phone: Start: 04-27-2023 End: 04-27-2023 Blood count hemoglobin Teodoro Farley AP RN - PRODUCTION SUPPORT CONSULTANT Work Phone: Start: 04-27-2023 Glucose blood reagen t strip Luc P Blood DO Work Phone: Start: 04-27-2023 Blood count complete auto&auto difrntl wbc Teodoro Farley SPEECH TEACHER - PRODUCTION SUPPORT CONSULTANT Work Phone: Start: 04-27-2023 Glucose blood reagen t strip Luc P Blood DO Work Phone: Start: 04-27-2023 Us vasc access sits vsl patency ndl entry Teodoro Farley SPEECH TEACHER - PRODUCTION SUPPORT CONSULTANT Work Phone: Start: 04-27-2023 Assay of lipase Teodoro Farley SPEECH TEACHER - PRODUCTION SUPPORT CONSULTANT Work Phone: Start: 04-27-2023 BASIC METABOLIC PANE L W/ REFLEX TO MG FOR LOW K Teodoro Farley SPEECH TEACHER - PRODUCTION SUPPORT CONSULTANT Work Phone: Start: 04-27-2023 Hepatic function panel Teodoro Farley SPEECH TEACHER - PRODUCTION SUPPORT CONSULTANT Work Phone: Start: 04-27-2023 End: 04-27-2023 Transfusion of packed red blood cells Willow Garduno SPEECH TEACHER - RADIO MECHANIC HELPER Work Phone: Start: 04-26-2023 Blood count hemoglobin Teodoro Farley SPEECH TEACHER - PRODUCTION SUPPORT CONSULTANT Work Phone: Start: 04-26-2023 Assay of ferritin Cedrick Cronin MD Work Phone: Start: 04-26-2023 Immunoassay tumor an tigen quantitative ca 19-9 Karin Cronin MD Work Phone: Start: 04-26-2023 VITAMIN B12 & FOLATE Na terry Cronin MD Work Phone: Start: 04-26-2023 Blood count reticulo cyte automated Teodoro Farley SPEECH TEACHER - PRODUCTION SUPPORT CONSULTANT Work Phone: Start: 04-26-2023 Glucose blood reagen t strip Luc P Blood DO Work Phone: Start: 04-26-2023 End: 04-26-2023 Transfusion of packed red blood cells Teodoro Farley SPEECH TEACHER - PRODUCTION SUPPORT CONSULTANT Work Phone: Start: 04-26-2023 Glucose blood reagen t strip Luc P Blood DO Work Phone: Start: 04-26-2023 Creatine kinase total D monie Farley SPEECH TEACHER - PRODUCTION SUPPORT CONSULTANT Work Phone: Start: 04-26-2023 TROP/MYOGLOBIN Teodoro Farley SPEECH TEACHER - PRODUCTION SUPPORT CONSULTANT Work Phone: Start: 04-26-2023 Blood typing serologic abo Teodoro Farley SPEECH TEACHER - PRODUCTION SUPPORT CONSULTANT Work Phone: Start: 04-26-2023 End: 04-26-2023 Assay of lipase Teodoro Farley SPEECH TEACHER - PRODUCTION SUPPORT CONSULTANT Work Phone: Start: 04-26-2023 SURGICAL PATHOLOGY REPORT Shailesh Miranda MD Work Phone: Start: 04-25-2023 End: 04-25-2023 Glucose blood reagent strip Luc P Blood DO Work Phone: Start: 04-25-2023 Fluoroscopy during operation Satinder Yao MD Work Phone: Start: 04-25-2023 Cytp flu washgs/brus hings xcpt c/v smrs interpj Satinder Yao MD Work Phone: Start: 04-25-2023 SURGICAL PATHOLOGY REPORT Satinder Yao MD Work Phone: Start: 04-25-2023 End: 04-25-2023 EGD W/EUS FNA Satinder Yao MD Work Phone: Start: 04-25-2023 End: 04-25-2023 ERCP STENT INSERTION Satinder Thrasher i, MD Work Phone: Start: 04-24-2023 Ct thorax w/contrast material Teodoro Farley SPEECH TEACHER - PRODUCTION SUPPORT CONSULTANT Work Phone: Start: 04-24-2023 Glucose blood reagen t strip Shailesh Miranda MD Work Phone: Start: 04-24-2023 Glucose blood reagen t strip Shailesh Miranda MD Work Phone: Start: 04-24-2023 Mri abdomen w/o & w/contrast material Teodoro Farley SPEECH TEACHER - PRODUCTION SUPPORT CONSULTANT Work Phone: Start: 04-24-2023 Glucose blood reagen t strip Shailesh Miranda MD Work Phone: Start: 04-24-2023 Us abdominal real ti me w/image limited Teodoro Farley SPEECH TEACHER - PRODUCTION SUPPORT CONSULTANT Work Phone: Start: 04-24-2023 Assay of lipase Teodoro Farley SPEECH TEACHER - PRODUCTION SUPPORT CONSULTANT Work Phone: Start: 04-23-2023 Procalcitonin (pct) Emilia Farley SPEECH TEACHER - PRODUCTION SUPPORT CONSULTANT Work Phone: Start: 04-23-2023 Assay of urea nitrog en quantitative Teodoro Farley SPEECH TEACHER - PRODUCTION SUPPORT CONSULTANT Work Phone: Start: 03-16-2023 Antibody screen Luc Vargas Comment on above: Order Comment: NO TI ME OF DRAW ON TUBE. 2 SETS OF INITIALS 'CL' ON TUBE. SHIRLEY/RN WHO LANCE PATIENT SAID SHE LANCE SAMPLE AT 1035. [facility] Result Comment: PERF ORMED BY: [facility] [address] [place] [address] PATHOLOGIST PLASMA TABLE OPERATOR KOREY FRANKS M.D. Start: 03-16-2023 Femoral endarterectomy MD Esau Riddle Work Phone: Start: 03-01-2023 Lower limb angiography MD Esau Riddle Work Phone: Start: 06-27-2022 Doppler ultrasonogra phy of bilateral carotid arteries MD Yuni Mast Work Phone: Cardiac catheterization Alejandro Gongora Comment on above: 08/21 Surgery (qualifier value) Ike DURBIN Plan of Treatment Date Care Activity Detail Author Start: 07-21-2026 DTaP/Tdap/Td vaccine (2 - Td or Tdap) DTaP/Tdap/Td vaccine (2 - Td or Tdap) [facility] Start: 07-21-2026 DTaP/Tdap/Td Vaccine s (2 - Td or Tdap) DTaP/Tdap/Td Vaccines (2 - Td or Tdap) [facility] Start: 05-08-2024 Creatinine measurement Creatinine Le sam [facility] Start: 05-08-2024 Diabetes mellitus screening Diabetes Screening [facility] Start: 05-08-2024 Potassium measurement Potassium Leve l [facility] Start: 04-28-2024 GFR test (Diabetes, CKD 3-4, OR last GFR 15-59) GFR test (Diabetes, CKD 3-4, OR last GFR 15-59) [facility] Start: 07-03-2023 End: 07-03-2023 Patient encounter procedure 07/03/2023 10:00 AM EDT Office Visit [facility] [address] [place] [address] [address] [place] [address] [place] [address] [address] Department of Surgery-[place] [address] [facility] Start: 05-26-2023 End: 05-26-2023 Patient encounter procedure [facility] Start: 05-08-2023 End: 05-08-2024 Cancer Ag 19-9 [Units/volume] in Serum or Plasma [facility] [[email or web address] Service Area Work Phone: Comment on above: Expected: 05/08/2023 (Approximate), Expires: 05/08/2024 Start: 05-08-2023 End: 05-08-2024 CBC panel - Blood by Automated count [facility] Work Phone: Comment on above: Expected: 05/08/2023 (Approximate), Expires: 05/08/2024 Start: 05-08-2023 End: 05-08-2024 Comprehensive metabolic 2000 panel - Serum or Plasma [facility] Work Phone: Comment on above: Expected: 05/08/2023 (Approximate), Expires: 05/08/2024 Start: 05-08-2023 End: 05-08-2024 EKG 12 lead EKG 12 lead ECG Routine Neoplasm of uncertain behavior of pancreas Expected: 05/08/2023 (Approximate), Expires: 05/08/2024 [facility] Work Phone: Comment on above: Expected: 05/08/2023 (Approximate), Expires: 05/08/2024 Start: 05-08-2023 End: 05-08-2024 Hemoglobin A1c/Hemoglobin.total in Blood [facility] Work Phone: Comment on above: Expected: 05/08/2023 (Approximate), Expires: 05/08/2024 Start: 05-08-2023 End: 07-07-2023 PT and aPTT panel - Platelet poor plasma by Coagulation assay [facility] Work Phone: Comment on above: Expected: 05/08/2023 (Approximate), Expires: 07/07/2023 Start: 05-08-2023 End: 05-08-2024 Request for Pre-Admission Testing Visit Request for Pre-Admission Testing Visit Procedures Routine Neoplasm of uncertain behavior of pancreas Expected: 05/08/2023 (Approximate), Expires: 05/08/2024 [facility] Work Phone: Comment on above: Expected: 05/08/2023 (Approximate), Expires: 05/08/2024 Start: 03-17-2023 [facility] Start: 03-17-2023 [facility] Start: 03-16-2023 Referral to clinical corporate travel consultant [facility] Start: 03-16-2023 Hospital admission [facility] Start: 03-01-2023 [facility] Start: 2018 Respiratory Syncytia l Virus (RSV) or age 60 yrs+ (1 - 1-dose 60+ series) Respiratory Syncytial Virus (RSV) or age 60 yrs+ (1 - 1-dose 60+ series) [facility] Start: 2008 Screening for malign ant neoplasm of breast Breast cancer screen [facility] Start: 2008 Screening for malign ant neoplasm of lung Lung Cancer Screening [facility] Start: 2008 Shingles vaccine (1 of 2) Kimbrough gles vaccine (1 of 2) [facility] Start: 2008 Zoster Vaccines (1 of 2) Zoste r Vaccines (1 of 2) [facility] Start: 08-31-2003 Screening for malign ant neoplasm of colon [facility] Start: 1998 Screening for malign ant neoplasm of breast Mammogram [facility] Start: 1988 Screening for malign ant neoplasm of cervix [facility] Start: 08-31-1979 Screening for malign ant neoplasm of cervix [facility] Start: 1976 Diabetes mellitus screening Diabetes Screening [facility] Start: 1976 Glaucoma screening Diabetic retinal exam [facility] Start: 1976 Hepatitis C screening B ON [facility] Start: 1976 Urine screening for protein Diabetic Alb to Cr ratio (uACR) test [facility] Start: 1973 HIV screening HIV screen [facility] Start: 1970 Depression Screen Depression Screen [facility] Start: 1968 Diabetic foot examination Diabetic f oot exam [facility] Start: 1968 Hemoglobin A1c measurement A1C test (Diabetic or Prediabetic) [facility] Start: 1968 Lipid panel Lipids [facility] Start: 1964 Pneumococcal 0-64 ye ars Vaccine (1 - PCV) Pneumococcal 0-64 years Vaccine (1 - PCV) [facility] Start: 1964 Pneumococcal Vaccine : 65+ Years (1 - PCV) Pneumococcal Vaccine: 65+ Years (1 - PCV) [facility] Start: 1964 Pneumococcal Vaccine : Pediatrics (0 to 5 Years) and At-Risk Patients (6 to 64 Years) (1 - PCV) Pneumococcal Vaccine: Pediatrics (0 to 5 Years) and At-Risk Patients (6 to 64 Years) (1 - PCV) [facility] Start: 08-31-1959 MMR Vaccines (1 of 1 - Standard series) MMR Vaccines (1 of 1 - Standard series) [facility] Start: 03-02-1959 COVID-19 Vaccine (#1) COVID-19 Vacci ne (#1) [facility] [employer] Start: 1958 Creatinine measurement Creatinine Le sam [facility] Start: 1958 Echocardiography Echocardiogram [facility] Start: 1958 HIV screening HIV Screening [facility] Start: 1958 Lipid panel Lipid Panel [facility] Start: 1958 Potassium measurement Potassium Leve l [facility] Start: 1958 Screening for malign ant neoplasm of colon [facility] Start: 1958 Yearly Adult Physical Yearly Adult P hysical [facility] Glucose [Mass/volume ] in Serum or Plasma POCT Glucose Point of Care Testing STAT As Needed until discontinued starting 04/24/2023 [employer] Comment on above: As Needed until disc ontinued starting 04/24/2023 End: 04-26-2023 Glucose [Mass/volume] in Serum or Plasma [facility] Comment on above: Every 30 Min for 2 O ccurrences starting 04/26/2023 until 04/26/2023 Every Hour (Lab POC) for 2 Occurrences starting 04/26/2023 until 04/26/2023 As Needed until disc ontinued starting 04/26/2023 End: 04-27-2023 Glucose [Mass/volume] in Serum or Plasma POCT Glucose Point of Care Testing Routine 4X Daily (AC & HS) for 24 Hours starting 04/26/2023 until 04/27/2023 [employer] Comment on above: 4X Daily (AC & HS) f or 24 Hours starting 04/26/2023 until 04/27/2023 End: 05-10-2023 Hemoglobin and Hematocrit Hemoglobin and Hematocrit Lab Routine Post Transfusion Post Transfusion Post Transfustion until discontinued starting 04/26/2023 [employer] Comment on above: Post Transfusion Pos t Transfusion Post Transfustion until discontinued starting 04/26/2023 End: 04-29-2023 Hemoglobin and Hematocrit Hemoglobin and Hematocrit Lab Routine Every 6 Hours (Lab) for 3 Days starting 04/26/2023 until 04/29/2023, 5 completed [employer] Comment on above: Every 6 Hours (Lab) for 3 Days starting 04/26/2023 until 04/29/2023, 5 completed End: 05-11-2023 Hemoglobin and Hematocrit Hemoglobin and Hematocrit Lab Routine Post Transfusion Post Transfusion Post Transfustion until discontinued starting 04/27/2023 [employer] Comment on above: Post Transfusion Pos t Transfusion Post Transfustion until discontinued starting 04/27/2023 Intermittent pulse oximetry Pulse Oximetry Spot Check Respiratory Care Routine As Needed until discontinued starting 04/23/2023 [employer] Comment on above: As Needed until disc ontinued starting 04/23/2023 Oxygen therapy [[facility] Data Set] Initiate Oxygen Therapy Protocol Respiratory Care Routine As Needed until discontinued starting 04/23/2023 [employer] Work Phone: Comment on above: As Needed until disc ontinued starting 04/23/2023 Pancreatectomy total Pancreatect rakan Malignant neoplasm of head of pancreas (CMS/HCC) [facility] [facility] Work Phone: Patient Education Arteriogram (DC) [facility] Work Phone: Patient referral [facility] Work Phone: End: 04-26-2023 PREPARE RBC (CROSSMATCH), 1 Units [employer] Comment on above: Once for 1 Occurrenc es starting 04/26/2023 until 04/26/2023 End: 04-27-2023 PREPARE RBC (CROSSMATCH), 1 Units PREPARE RBC (CROSSMATCH), 1 Units Blood Bank Routine Once for 1 Occurrences starting 04/27/2023 until 04/27/2023 [employer] Work Phone: Comment on above: Once for 1 Occurrenc es starting 04/27/2023 until 04/27/2023 End: 04-26-2023 SPECIMEN REJECTION [employer] Comment on above: Once for 1 Occurrenc es starting 04/26/2023 until 04/26/2023 End: 04-27-2023 SPECIMEN REJECTION [employer] Comment on above: Once for 1 Occurrenc es starting 04/27/2023 until 04/27/2023 Surgical Pathology Surgical Path ology Lab Routine Obstructive jaundice Pancreatic mass Release Upon Ordering for 1 Occurrences starting 04/25/2023 [employer] Comment on above: Release Upon Orderin g for 1 Occurrences starting 04/25/2023 End: 04-25-2023 SURGICAL PATHOLOGY REPORT SURGICAL PATHOLOGY REPORT Lab Routine Once for 1 Occurrences starting 04/25/2023 until 04/25/2023 [employer] Comment on above: Once for 1 Occurrenc es starting 04/25/2023 until 04/25/2023 [facility] Immunizations Immunization Date Immunization Notes Care Provider Fa [facility] 01-17-2023 influenza, injectabl e, quadrivalent, preservative free Cole Minaya [facility] 01-16-2020 influenza virus vaccine, unspecified formulation Alejandro Fransisc[facility] 01-17-2019 influenza virus vaccine, unspecified formulation Alejandro Fransisca [facility] [employer] 02-19-2018 influenza virus vaccine, unspecified formulation Alejandro Fransisca [facility] 02-03-2017 influenza virus vaccine, unspecified formulation Alejandro Fransisca [facility] 07-21-2016 tetanus toxoid, reduced diphtheria toxoid, and acellular pertussis vaccine, adsorbed Alejandro Fransisca [facility] 01-17-2016 influenza virus vaccine, unspecified formulation Alejandro Fransisca [facility] NEGATED: Highlighted row has not occurred!01-02-2023 influenza virus vaccine, unspecified formulation Alejandro Gongora [facility] NEGATED: Highlighted row has not occurred!07-20-2022 SARS-CoV-2 mRNA (tozinameran 5y-11y) vaccine Alejandro Gongora [facility] [place] NEGATED: Highlighted row has not occurred!06-22-2022 influenza virus vaccine, unspecified formulation Alejandro Gongora [facility] NEGATED: Highlighted row has not occurred!06-22-2022 SARS-CoV-2 mRNA (tozinameran 5y-11y) vaccine Alejandro Gonogra [facility] Payers Date Payer Category Payer Unknown [facility] [id number] 2022-Present [address] [place] [address] [id number] 2022 Self-pay [id number] 1959 Unknown [id number] 1958 Unknown [id number] 2.840.1.182297.3.579.2.647 1958 Unknown [id number] 2.16.840.1.116842.3.579.2.593 1958 Unknown [id number] 2.16.840.1.507693.3.579.2.593 1958 Unknown [id number] 2.16.840.1.935802.3.579.2.593 1958 Unknown [id number] 2.16.840.1.700507.3.579.2.593 1958 Unknown [id number] 2.16.840.1.073858.3.579.2.593 1958 Unknown [id number] 2.16.840.1.335713.3.579.2.593 1958 Unknown [id number] 2.16.840.1.267290.3.579.2.593 1958 Unknown [id number] 2.16.840.1.560824.3.579.2.593 1958 Unknown [id number] 2.16.840.1.992920.3.579.2.593 1958 Unknown [id number] 2.16.840.1.695310.3.579.2.1259 1958 Unknown [id number] 2.16.840.1.392919.3.579.2.125 1958 Unknown [id number] 2.16.840.1.684861.3.579.2.1259 1958 Unknown [id number] 2.16.840.1.607221.3.579.2.125 1958 Unknown [id number] 2.16.840.1.272069.3.579.2.1259 1958 Unknown [id number] 2.16.840.1.552973.3.579.2.177 1958 Unknown [id number] 2.16.840.1.514328.3.579.2.124 1958 Unknown [id number] 2.16.840.1.319633.3.579.2.124 1958 Unknown [id number] 2.16.840.1.625473.3.579.2.124 1958 Unknown [id number] 2.16.840.1.326920.3.579.2.727 1958 Unknown [id number] 2.16.840.1.500591.3.579.2.727 [birth year]1959 Unknown [id number] 2.16.840.1.761483.3.579.2. 1958 Unknown [id number] 2.16.840.1.209937.3.579.2 1958 Unknown [id number] 2.16.840.1.752340.3.579.2 1958 Unknown [id number] 2.16.840.1.704062.3.579.2 1958 Unknown [id number] 2.16.840.1.373956.3.579. 1958 Unknown [id number] 2.16.840.1.928408.3.579.2 1958 Unknown [id number] 2.16.840.1.726050.3.579. 1958 Unknown [id number] 2.16.840.1.385711.3.579.2 1958 Unknown [id number] 2.16.840.1.800998.3.579. 1958 Unknown [id number] 2.16.840.1.245056.3.579.2 1958 Unknown [id number] 2.16.840.1.875826.3.579.2 1958 Unknown [id number] 2.16.840.1.545375.3.579.2 1958 Unknown [id number] 2.16.840.1.230841.3.579.2 1958 Unknown [id number] 2.16.840.1.061864.3.579.2 1958 Unknown [id number] 2.16.840.1.124726.3.579.2 1958 Unknown [id number] 2.16.840.1.849573.3.579.2. 1958 Unknown [id number] 2.16.840.1.621468.3.579.2 1958 Unknown [id number] 2.16.840.1.105773.3.579.2 1958 Unknown [id number] 2.16.840.1.906102.3.579.2 1958 Unknown [id number] 2.16.840.1.962595.3.579. 1958 Unknown [id number] 2.16.840.1.526866.3.579. 1958 Unknown [id number] 2.16.840.1.486343.3.579. 1958 Unknown [id number] 2.16.840.1.308019.3.579. 1958 Unknown [id number] 2.16.840.1.580785.3.579. 1958 Unknown [id number] 2.16.840.1.576498.3.579. 1958 Unknown [id number] 2.16.840.1.791120.3.579.2 1958 Unknown [id number] 2.16.840.1.326991.3.579.2 1958 Unknown [id number] 2.16.840.1.085454.3.579.2 1958 Unknown [id number] 2.16.840.1.464667.3.579. 1958 Unknown [id number] 2.16.840.1.018990.3.579.2 1958 Unknown [id number] 2.16.840.1.238996.3.579.2.1244 Unknown [id number] 2..840.1.237017.3.579.2.531 Unknown [id number] 2.840.1.232428.3.579.2.531 Unknown [id number] 2..840.1.019975.3.579.2.531 Social History Date Type Detail Facility Start: 04-23-2023 End: 05-19-2023 Sex Assigned At [facility] Start: 1960 Sex Assigned At Female F [facility] Start: 01-13-2023 End: 03-30-2023 Tobacco smoking status Heavy tobacco smoker (finding) [facility] Tobacco smoking status Never [facility] Start: 03-16-2023 Tobacco smoking status NHIS Smoker (finding) [facility] Start: 04-03-1972 End: 05-19-2023 Tobacco smoking status NHIS Smokes tobacco daily [facility] Start: 04-03-1972 History of tobacco use Cigarette Smoker [facility] Start: 04-23-2023 End: 05-19-2023 Tobacco use and exposure Smokeless tobacco non-user [employer] Start: 04-26-2023 End: 05-19-2023 Alcohol intake Ex-drinker (finding) [employer] Start: 04-23-2023 End: 05-19-2023 History of Social function [facility] [employer] Has the [place], gas, oil, or water [facility] threatened to shut off services in your home in past 12Mo No [employer] (I/We) worried whether (my/our) food would run out before (I/we) got money to buy more. Never true [employer] Start: 1960 Sex Assigned At Not on file [facility] [employer] Start: 05-04-2023 End: 05-05-2023 Tobacco smoking status Light tobacco smoker (finding) [facility] Start: 05-08-2023 Tobacco smoking status NHIS Occasional tobacco smoker [facility] Start: 05-08-2023 Alcohol intake Lifetime non-d earle (finding) [facility] Work Phone: Start: 04-28-2023 End: 05-08-2023 Exposure to SARS-CoV-2 (event) Not sure [facility] Start: 05-19-2023 Tobacco Comment Currently smok es 3 a day [facility] Work Phone: NEGATED: Highlighted rowStart: NINF History of tobacco use Passive smoker [facility] Work Phone: Medical Equipment Procedure Code Equipment Code Equipment Origin al Text Equipment Identifier Dates sure comfort pen needle 30 gauge x 5/16, See Instructions, use bid for E10.8 Start: 06-17-2022 sure comfort pen needle 30 gauge x 5/16, See Instructions, use bid for E10.8 Start: 06-17-2022 sure comfort pen needle 30 gauge x 5/16, See Instructions, use bid for E10.8 Start: 06-17-2022 sure comfort pen needle 30 gauge x 5/16, See Instructions, use bid for E10.8 Start: 06-17-2022 sure comfort pen needle 30 gauge x 5/16, See Instructions, use bid for E10.8 Start: 06-17-2022 Stent Bili L60mm Dia8mm Cath 8.5fr L194cm Gwire 0.035in [facility] - [id number] Start: 04-25-2023 sure comfort pen needle 30 gauge x 5/16, See Instructions, use bid for E10.8 Start: 06-17-2022 sure comfort pen needle 30 gauge x 5/16, See Instructions, use bid for E10.8 Start: 06-17-2022 sure comfort pen needle 30 gauge x 5/16, See Instructions, use bid for E10.8 Start: 06-17-2022 sure comfort pen needle 30 gauge x 5/16, See Instructions, use bid for E10.8 Start: 06-17-2022 sure comfort pen needle 30 gauge x 5/16, See Instructions, use bid for E10.8 Start: 06-17-2022 sure comfort pen needle 30 gauge x 5/16, See Instructions, use bid for E10.8 Start: 06-17-2022 sure comfort pen needle 30 gauge x 5/16, See Instructions, use bid for E10.8 Start: 06-17-2022 Goals Date Patient Goal Desired Activity /State Functional Status Date Assessment Result Facility 05-15-2023 Functional Status N/A [facility] 05-05-2023 Functional Status N/A [facility] 03-30-2023 Functional Status No [facility] 03-17-2023 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 Toward [facility] Work Phone: 01-13-2023 Functional Status N/A [facility] Mental Status Date Assessment Result Facility 03-17-2023 Cognitive function Cognitive Sta tus Patient at [facility] Work Phone: Clinical Notes 10-26-2021 to 05-18-2023 Edison Pinto MD - 05/08/2023 12:00 PM Gavino Amy - 04/28/2023 12:03 PM Erica Ramon, OT - 04/27/2023 1:58 PM Beth Whitman, PT - 04/27/2023 1:41 PM EST Note Date & Type Note Facility 05-18-2023 Hospital Discharge instructions Patient Education 05/18/2023 10:02:54 Implanted Port Insertion Implanted Port Insertion Implanted port insertion is a procedure to put in a port and catheter. The port is a device with an injectable disc that can be accessed by your health care provider. The port is connected to a vein in the chest or neck by a small, thin tube (catheter). There are different types of ports. The implanted port may be used as a long-term IV access for: Medicines, such as chemotherapy. Fluids. Liquid nutrition, such as total parenteral nutrition (TPN). When you have a port, your health care provider can choose to use the port instead of veins in your arms for these procedures. Tell a health care provider about: Any allergies you have. All medicines you are taking, especially blood thinners, as well as any vitamins, herbs, eye drops, creams, xndc-uug-zurmzgx medicines, and steroids. Any problems you or family members have had with anesthetic medicines. Any bleeding problems you have. Any surgeries you have had. Any medical conditions you have or have had, including diabetes or kidney problems. Whether you are or may be . What are the risks? Generally, this is a safe procedure. However, problems may occur, including: Allergic reactions to medicines or dyes. Damage to other structures or organs. Infection. Damage to the blood vessel, bruising, or bleeding at the puncture site. Blood clot. Breakdown of the skin over the port. A collection of air in the chest that can cause one of the lungs to collapse (pneumothorax). This is rare. What happens before the procedure? When to stop eating and drinking Follow instructions from your health care provider about what you may eat and drink before your procedure. These may include: 8 hours before your procedure ?Stop eating most foods. Do not eat meat, fried foods, or fatty foods. ?Eat only light foods, such as toast or crackers. ?All liquids are okay except energy drinks and alcohol. 6 hours before your procedure ?Stop eating. ?Drink only clear liquids, such as water, clear fruit juice, black coffee, plain tea, and sports drinks. ?Do not drink energy drinks or alcohol. 2 hours before your procedure ?Stop drinking all liquids. ?You may be allowed to take medicines with small sips of water. If you do not follow your health care provider's instructions, your procedure may be delayed or canceled. Medicines Ask your health care provider about: Changing or stopping your regular medicines. This is especially important if you are taking diabetes medicines or blood thinners. Taking medicines such as aspirin and ibuprofen. These medicines can thin your blood. Do not take these medicines unless your health care provider tells you to take them. Taking vgjo-iye-mwhaftt medicines, vitamins, herbs, and supplements. General instructions If you will be going home right after the procedure, plan to have a responsible adult: ?Take you home from the hospital or clinic. You will not be allowed to drive. ?Care for you for the time you are told. You may have blood tests. Do not use any products that contain nicotine or tobacco for at least 4 weeks before the procedure. These products include cigarettes, chewing tobacco, and vaping devices, such as e-cigarettes. If you need help quitting, ask your health care provider. Ask your health care provider what steps will be taken to help prevent infection. These may include: ?Removing hair at the surgery site. ?Washing skin with a germ-killing soap. ?Taking antibiotic medicine. What happens during the procedure? An IV will be inserted into one of your veins. You will be given one or more of the following: ?A medicine to help you relax (sedative). ?A medicine to numb the area (local anesthetic). Two small incisions will be made to insert the port. ?One smaller incision will be made in your neck to get access to the vein where the catheter will lie. ?The other incision will be made in the upper chest. This is where the port will lie. The procedure may be done using continuous X-ray (fluoroscopy) or other imaging tools for guidance. The port and catheter will be placed. There may be a small, raised area where the port is placed. The port will be flushed with a saline solution, which is made of salt and water, and blood will be drawn to make sure that the port is working correctly. The incisions will be closed. Bandages (dressings) may be placed over the incisions. The procedure may vary among health care providers and hospitals. What happens after the procedure? Your blood pressure, heart rate, breathing rate, and blood oxygen level will be monitored until you leave the hospital or clinic. If you were given a sedative during the procedure, it can affect you for several hours. Do not drive or operate machinery until your health care provider says that it is safe. You will be given a project management manager's information card for the type of port that you have. Keep this with you. Your port will need to be flushed and checked as told by your health care provider, usually every few weeks. A chest X-ray will be done to: ?Check the placement of the port. ?Make sure there is no injury to your lung. Summary Implanted port insertion is a procedure to put in a port and catheter. The implanted port is used as a long-term IV access. The port will need to be flushed and checked as told by your health care provider, usually every few weeks. Keep your project management manager's information card with you at all times. This information is not intended to replace advice given to you by your health care provider. Make sure you discuss any questions you have with your health care provider. Document Revised: 09/21/2021 Document Reviewed: 09/21/2021 [employer] Patient Education 2022 [employer]. 05/18/2023 10:01:13 Pancreatic Cancer Pancreatic Cancer Pancreatic cancer is a type of cancer in which a cancerous (malignant) tumor develops in the pancreas. The pancreas is a gland in the abdomen between the stomach and the spine. The pancreas makes hormones and enzymes that help the body control blood sugar, digest food, and store energy from food. There are two types of pancreatic cancer: Exocrine. This is the most common type. Endocrine. This is also called islet cell cancer or pancreatic neuroendocrine tumor (NET). Pancreatic cancer can spread (metastasize) to other parts of the body. What are the causes? The exact cause of this condition is not known. What increases the risk? The following factors may make you more likely to develop this condition: Being over 65 years old. Smoking cigarettes. Having a family history of cancer of the pancreas, colon, or ovaries. Having diabetes. Having long-term inflammation of the pancreas (chronic pancreatitis). Being exposed to certain chemicals. Eating a diet that is high in fat and red meat. What are the signs or symptoms? In the early stages, there are often no symptoms of this condition. As the cancer gets worse, symptoms may vary depending on the type of pancreatic cancer you have. Common symptoms include: Nausea and vomiting. Loss of appetite and weight loss. Pain in the upper abdomen or upper back. Skin or the white parts of the eyes turning yellow (jaundice). Fatigue. Other symptoms include: Itchy skin. Dark urine. Stools that are: ?Light-colored and greasy-looking. ?Black and tarry-looking. High blood sugar (hyperglycemia). This may cause increased thirst and frequent urination. Low blood sugar (hypoglycemia). This may cause confusion, sweating, and a fast heartbeat. Depression. How is this diagnosed? This condition may be diagnosed based on your medical history and a physical exam. Your health care provider may: Check your skin and eyes for signs of jaundice. Check for excess fluid in the abdomen and changes in the abdomen near the pancreas. Do blood and urine tests, imaging tests, biopsy, and genetic testing. If pancreatic cancer is diagnosed, it will be staged to determine severity and extent. Staging checks: The size of the tumor. If the cancer has spread. Where the cancer has spread. How is this treated? Depending on the type and stage of your pancreatic cancer, treatment may include: Surgery to remove all or part of the pancreas or to remove the tumor. ?If the cancer has spread, portions of the stomach, bile duct, spleen, and small intestine may also be removed. Chemotherapy. This uses medicine to destroy the cancer cells. Radiation therapy. This uses high-energy beams to kill cancer cells. Medicine to attack a tumor's genes and proteins (targeted therapy). These medicines may limit the damage to healthy cells. Participating in clinical trials to see if new (experimental) treatments are effective. Medicines to help manage pain and other symptoms. A combination of surgery, radiation therapy, and chemotherapy may be used. Follow these instructions at home: Medicines Take nxms-zwm-hbjipvf and prescription medicines only as told by your health care provider. Ask your health care provider about changing or stopping your regular medicines. These include any diabetes medicines or blood thinners you take. Do not take dietary supplements or herbal medicines unless your health care provider tells you to. Some supplements can interfere with how well the treatment works. Ask your health care provider if the medicine prescribed to you: ?Requires you to avoid driving or using machinery. ?Can cause constipation. You may need to take these actions to prevent or treat constipation: ?Drink enough fluid to keep your urine pale yellow. ?Take yhvr-fru-yzrwtxl or prescription medicines. ?Eat foods that are high in fiber, such as beans, whole grains, and fresh fruits and vegetables. ?Limit foods that are high in fat and processed sugars, such as fried or sweet foods. Lifestyle Get enough sleep on a regular basis. Most adults need 6 8 hours of sleep each night. During treatment, you may need more sleep. Rest as told by your health care provider. Consider joining a cancer support group. Ask your health care provider about local and online support groups. This may help you to cope with the stress of having pancreatic cancer. Do not use any products that contain nicotine or tobacco. These products include cigarettes, chewing tobacco, and vaping devices, such as e-cigarettes. If you need help quitting, ask your health care provider. Eating and drinking Try to eat regular, healthy meals. Some of your treatments might affect your appetite. If you are having problems eating, see a food and nutrition consultant (dietitian). Do not drink alcohol. General instructions Work with your health care provider to manage any side effects of your treatment. Return to your normal activities as told by your health care provider. Ask your health care provider what activities are safe for you. Keep all follow-up visits. These monitor the treatments and guide next steps. Where to find more information [place] [employer]: www.cancer.org National Cancer [place] (NCI): www.cancer.gov Contact a health care provider if: You have new or worsening abdominal pain or nausea. You have diarrhea or a change in bowel movements. You have swelling or redness anywhere, especially around a cut or wound. You have pain or burning when urinating. You cannot eat or drink without vomiting. You have worsening or unexplained weight loss. Get help right away if: You have a fever. Your pain suddenly gets worse. You have trouble breathing. You have chest pain or an irregular heartbeat. You have blood in your vomit or dark, tarry stools. You have bloating or pain in the abdomen. These symptoms may be an emergency. Get help right away. Call 911. Do not wait to see if the symptoms will go away. Do not drive yourself to the hospital. Summary Pancreatic cancer is a tumor in the pancreas that is cancerous (malignant). Risk factors include having a family history of cancer of the pancreas, colon, or ovaries. Treatment may include surgery, chemotherapy, and radiation therapy. Consider joining a cancer support group. Keep all follow-up visits. These monitor the treatments and guide next steps. This information is not intended to replace advice given to you by your health care provider. Make sure you discuss any questions you have with your health care provider. Document Revised: 06/29/2022 Document Reviewed: 06/29/2022 [employer] Patient Education 2022 [employer]. 05/18/2023 10:00:44 Pulmonary Nodule, Hkwd-kp-Txtu Pulmonary Nodule A pulmonary nodule is a small, round growth of tissue in the lung. A nodule may be cancer, but most nodules are not cancer. What are the causes? Infection from a germ (bacteria, fungus, or virus), such as tuberculosis. Tissue that is cancer, such as: ?Cancer in the lung. ?Cancer that has spread to the lung from another part of the body. A growth of tissue (mass) that is not cancer. Swelling and irritation from conditions such as rheumatoid arthritis. Having blood vessels that are not normal in the lungs. What are the signs or symptoms? Many times, there are no symptoms. If you get symptoms, they normally have another cause, such as infection. How is this treated? Treatment depends on: If your nodule is cancer or if it is not cancer. What your risk of getting cancer is. Some nodules are not cancer. If this is the case for you, you may not need treatment. Your doctor may do tests to watch the nodule for changes. If the nodule is cancer: You will need tests, such as CT and PET scans. You may need treatment. This may include: ?Surgery. ?Treatment with high-energy X-rays (radiation therapy). ?Medicines. Some nodules need to be taken out. You may have a procedure to have the nodule taken out. During the procedure, your doctor will make a cut (incision) into your chest and take out the part of your lung that has the nodule. Follow these instructions at home: Take qnai-jtq-ljnwnyu and prescription medicines only as told by your doctor. Do not smoke or use any products that contain nicotine or tobacco. If you need help quitting, ask your doctor. Keep all follow-up visits. Contact a doctor if: You have pain in your chest, back, or shoulder. You are short of breath or have trouble breathing when you are active. You get a cough. Your voice starts to sound raspy, breathy, or strained (hoarse), and you do not know why. You feel sick or more tired than normal. You do not feel like eating. You lose weight without trying. You get chills, or you start to sweat a lot during sleep. You need two or more pillows to sleep on at night. You have: ?A fever and your symptoms get worse all of a sudden. ?A fever or symptoms for more than 2 3 days. Get help right away if: You cannot catch your breath. You have sudden chest pain. You start making high-pitched whistling sounds when you breathe, most often when you breathe out (you wheeze). You cannot stop coughing. You cough up blood or bloody mucus from your lungs (sputum). You get dizzy or feel like you may faint. These symptoms may represent a serious problem that is an emergency. Do not wait to see if the symptoms will go away. Get medical help right away. Call your local emergency services (911 in the [place] Do not drive yourself to the hospital. Summary A pulmonary nodule is a small, round growth of tissue in the lung. Most of these nodules are not cancer. Common causes of nodules in the lung include infection, swelling and irritation, and growths that are not cancer. Treatment depends on whether the nodule is cancer or is not cancer. Treatment also depends on your risk of getting cancer. If the nodule is cancer, you will need certain tests and treatments as told by your doctor. This information is not intended to replace advice given to you by your health care provider. Make sure you discuss any questions you have with your health care provider. Document Revised: 10/07/2020 Document Reviewed: 10/07/2020 [employer] Patient Education 2022 [employer]. Follow Up Care 05/04/2023 12:25:32 With:Frankie Sarabia DO ONC Address: [address] [place] [phone] Fax Business (1) When: Unknown Comments:iv iron soonport referralFOLFIRNOX a week from monday (05/29)cbc, cmp, ca199 cea prior to chemotherapy. [facility] 05-16-2023 Note Procedure Patient seen and examined. The risk/benefits of the procedure were thoroughly discussed with patient including specific attention to lack of onsite surgical backup and risk of gricel covid, and the patient agrees to proceed. Abnormal stress test. Airway Assessment: Class I: Visualization of the soft palate, fauces, uvula, anterior and posterior pillars Airway Abnormalities: none ASA Classification: ASA 1: A normal healthy patient Risks/Benefits of IV Sedation: Have been explained IV Sedation Plan: Patient agrees to IV sedation plan Assessment/Plan Ordered: Site Check [facility] Comment on above: Result Comment: Elec tronically Signed By: Rik MISTYR, Felix Vann\.br\Date and Time Signed: 05/16/23 12:42 EST 05-16-2023 Note [id number] [facility] 05-15-2023 Hospital Discharge instructions Patient Education 05/15/2023 09:40:37 CV - Cardiovascular Discharge Instructions (Custom) [place], [place] CARDIOVASCULAR DISCHARGE INSTRUCTIONS Diet: Resume pre-procedure diet. Increase water intake the next 2 days to flush dye out of the body. Activity: If radial access: Limit your activity today. Do not operate a vehicle, machinery or power tools. NO LIFTING OVER 3 POUNDS for 3 days. Do not bend your wrist for 24 hours. May resume driving in 24 hours. No sexual activity for 1 week. Let pain/discomfort guide your activity. If you are having pain, stop. Return to the Emergency Room if you have trouble breathing, walking or nausea and vomiting. Medications: Resume pre-procedure medication, unless otherwise directed. Hold the following medications for 48 hours post procedure: Actoplus MetGlucophageGlucophage XR GlucovanceAvandametFortamet Ozx-zoqmllcndJxvoglAlce-bkikwxujj GlumetzaJanumetMetaglip RiometGlycomet *Minimal pain, soreness and/or discomfort is expected. *You may take OTC non-steroidal anti-inflammatory to manage discomfort, unless contraindicated. If pain is not controlled with the above medications, contact your physician. Site Care: Do not remove dressing for 24 hours unless it becomes saturated, then replace. Keep site clean and dry; inspect site daily. Do not use any lotions, powders, or ointments at the groin or wrist site for 1 week. May shower 24 hours after the procedure. Clean site with soap and water. Pat dry and apply band aid. No tub baths, swimming or hot tubs for 3 days Post Procedure: Soreness and tenderness to the site can last up to one week. Bruising may occur to site. A responsible adult should be with you for the first 24 hours after you arrive home. Keep follow-up appointment. No smoking for 24 hours as it increases the risk of developing blood clots. If you are interested in smoking cessation, contact [facility] at [phone], ext. [phone]. In the event you are unable to reach your physician, please call Hardik at [phone] and the hoop rolls operator will assist you. Seek Immediate Medical Care for: Bleeding: Apply continuous pressure to the site and Call 911. Should the arm or leg become cold, numb, blue or white call your physician immediately. Signs of infection are redness, warmth, swelling, increased tenderness, colored drainage, fever or chills Chest pain Follow Up Care 05/09/2023 08:56:15 With:Esau Riddle Address:Unknown When: Unknown With:Felix Jolyl Address: [address] [place] [phone] Business (1) When:06/09/2023 13:45:00 Comments:Keep scheduled appointment [facility] 05-08-2023 History of Present illness Narrative Subjective Karuna Nelson is a 62 y.o. female who is referred by Dr. Danyel Aragon. Medical oncology [facility]. Pancreatic cancer. HPI The patient is a 62-year-old woman, with significant medical comorbidities, metabolic syndrome and vasculopath. She is type 2 diabetes and is insulin-dependent. She is also morbidly obese with a BMI of 38. She is here for resectable pancreatic cancer. She presents with jaundice and has had a 13 pound weight loss. Review of Systems All other systems reviewed and are negative. Social History Socioeconomic History Marital status: Single Spouse name: Not on file Number of children: Not on file Years of education: Not on file Highest education level: Not on file Occupational History Not on file Tobacco Use Smoking status: Some Days Types: Cigarettes Passive exposure: Never Smokeless tobacco: Never Substance and Sexual Activity Alcohol use: Never Drug use: Never Sexual activity: Not on file Other Topics Concern Not on file Social History Narrative Not on file Social Determinants of Health Financial Resource Strain: Not on file Food Insecurity: Not on file Transportation Needs: Not on file Physical Activity: Not on file Stress: Not on file Social Connections: Not on file Intimate Partner Violence: Not on file Housing Stability: Not on file No current outpatient medications on file prior to visit. No current facility-administered medications on file prior to visit. No family history on file. No past medical history on file. No past surgical history on file. Objective BP 112/53 (BP Location: Left arm, Patient Position: Sitting, BP Cuff Size: Adult) Pulse 62 Temp 36.2 C (97.2 F) (Temporal) Resp 18 Wt 89.5 kg (197 lb 5 oz) SpO2 98% Physical Exam General: in no acute distress, comfortable. Obese abdomen. Eyes: no pallor or scleral icterus Ears, nose, throat: no oropharyngeal edema Cardiovascular: normal rate, regular rhythm Respiratory: clear breath sounds, symmetric, no wheezes Gastrointestinal: abdomen soft, non-tender, no masses Musculoskeletal: normal gate, no deformities Integumentary: no concerning lesions, no jaundice Lymphatic: no abnormally palpable lymph nodes Neurologic: no gross deficits Psychiatric: cognition intact, mood appropriate RESULTS I reviewed her imaging. She has resectable pancreatic cancer. Her visceral vessels appear uninvolved. She will need a pancreas protocol CT scan because it is hard to identify the common hepatic artery on her current imaging. There is no evidence of metastatic disease in the liver. I do not think there is any disease in the lungs. There is a lesion in the right lobe we will arrange for an endoscopic bronchial biopsy. Assessment/Plan We discussed options. I also conferred with her medical oncologist. We all are on board that resection first is a reasonable approach. There is certainly increased risk but that is the case whether we do surgery first or chemotherapy first. I think will be a challenge for her to get neoadjuvant chemotherapy followed by surgery. We will do the operation roughly 1 month which gives her time to do some good prehabilitation including stopping smoking and also walking multiple times per day. She is highly motivated. She will also undergo thorough cardiology evaluation. She will get an endobronchial biopsy of her lung lesion. We will repeat her CT imaging with a triphasic to better image her arterial anatomy. We signed consent today in the office. We also discussed the fact that we would likely do a total pancreatectomy to reduce the risk of a pancreatic leak which would be her biggest risk after surgery, and she is also insulin-dependent at this time. She will see her webmethods consultant at [facility] for cardiac catheterization. She will stop her Eliquis 3 days before surgery. She will continue her aspirin. We discussed smoking cessation and prehab Edison Pinto MD documented in this encounter [facility] Work Phone: 05-04-2023 Note Chief Complaint Pancreatic CA/ New referral from Dr. Riddle at [facility] Patient is here with her sister Tessy Oncological History/ROS/PE/Assessment and Plan 62-year-old female referred to me by Dr. Yojana Riddle in [place]. Past medical history includes chronic diastolic heart failure, COPD, coronary artery disease, type 2 diabetes, history of duodenal ulcer, hypercholesterolemia, primary hypertension, pulmonary hypertension. Outpatient medications include Plavix, aspirin, Protonix, Lipitor, Trulicity, Lasix, glipizide, insulin, lisinopril, metformin, Lopressor, Aldactone, Lantus. She had toe removed in apr 2023 for gangrene. has significant peripheral vascular disease and needed balooning veins in legs around this time. She presented with obstructive jaundice on April 23, 2023. She was admitted to [facility] she was found to have obstructive jaundice. MRI of the abdomen with and without contrast MRCP from April 27, 2023 showed a subtle focal area of hypoenhancement and increased T2 signal at the pancreatic head measuring 2.8 x 2.1 cm extending predominantly within the pancreaticoduodenal groove with restricted diffusion. Moderate intra and extrahepatic biliary ductal dilation with severe narrowing versus termination near the level of the pancreatic head near the masslike area. Findings are concerning for underlying neoplasm. Distended gallbladder with sludge. Findings are nonspecific for acute cholecystitis. 6 mm left lower lobe pulmonary nodule. A CT of the chest abdomen and pelvis with IV contrast from April 24, 2023 shows an ill-defined hypoenhancing area of the pancreatic head concerning for primary neoplasm. Also ductal dilation etc. 1.4 cm left adrenal mass. Likely benign adenoma. 1.1 cm right lower lobe mass and a 6 to 7 mm left lower lobe nodule. No other evidence of metastatic disease in the chest abdomen or pelvis. Mild grade 1 anterolisthesis of L5 on S1. Labs from April 23, 2023 showed creatinine of 0.9, slight hyponatremia with a sodium of 131. Hemoglobin of 8.9 with an MCV of 86.3. Platelet count of 305 with a white blood cell count of 9.2 and a normal white blood cell differential. By April 26, 2023 her hemoglobin was 5.6 with a repeat 6.2 with an MCV of 89.4. By April 27, 2023 her hemoglobin was down to 7.6 and MCV was 84.2. A CA 19-9 was elevated at 1114. Her sugars during her hospitalization were all in the 3 and 400s. Fine-needle aspirate from April 25, 2023 of a pancreatic head mass via EUS showed adenocarcinoma. There was also a fine-needle aspirate of the left adrenal gland mass which was benign adrenal cortical tissue. There was a biliary brushing which was negative for malignancy. EGD from April 25, 2023 biopsies showed minor inflammation and no cancer. Physical Examination General: alert, no acute distress Slight jaundice in her sclera. ENMT: oral mucosa moist, no pharyngeal erythema or exudate Cardiovascular: regular rate and rhythm, normal peripheral perfusion Respiratory: Lungs CTA, respirations non labored Abdomen: Soft nontender nondistended no masses no hepatosplenomegaly Extremities: no deformity, no trauma Neurological: oriented x 4, LOC appropriate for age ASSESSMENT PLAN Pancreatic adenocarcinoma. We will have to determine resectability. Considering there is also 1.1 cm pulmonary nodule we will try to get her set up for biopsy of this. Adrenal nodule was biopsied via FNA and was found to be benign which is also consistent with imaging. Anemia I will perform full anemia workup, check iron studies, B12, folate, EPO etc. Hospitalization workup they suggested potentially chronic inflammation. refer to either Millie Harris, Or tyrone Rdz at [facility] locations cbc, cmp, ca199. iron studies, b12, folate, cea, epo, esr. set up for pet/ct set up for ct biopsy right lung nodule. we need her images from [facility]. get images and reports sent to as well. we need her reports from ERCP, MRCP, oncology navigator, automation consultant send her pancreas tissue for NGS testing genetic testing for pancreas predisposition. f/u with me in 2 wks Vital Signs and Measurements Vital Signs and Measurements This Visit - Last 24 Hours T: 36.7 ?C (Oral) HR: 53 (Peripheral) RR: 16 BP: 104/50 SpO2: 99% HT: 157 cm HT: 157.0 cm WT: 89.9 kg WT: 89.9 kg (Dosing) BMI: 36.47 BSA: 1.98 Performance Scales and Status Performance Scales & Status ECOG PERFORMANCE STATUS: 1 - Restricted in physically strenuous activity (05/04/23) Cancer Fatigue Scale: 2-Moderate fatigue causing difficulty in performing ADLs (05/04/23) Staging Information No information available Labs No Qualifying Data Available [facility] 04-28-2023 History of Present illness Narrative CLINICAL PHARMACY NOTE: MEDS TO BEDS Total # of Prescriptions Filled: 1 The following medications were delivered to the patient: Pantoprazole 40mg Additional Documentation: Occupational Therapy DATE: 04/27/2023 NAME: Karuna Nelson : 1960 Patient not seen this date for Occupational Therapy due to: [x] Cancel by RN or physician due to: AVRIL Padilla requesting hold this date. States they have been giving transfusions to keep HgB over 7. GI consulted d/t concern for bleeding. OT will continue to follow and ck back as able. [] Hemodialysis [] Critical Lab Value Level [] Blood transfusion in progress [] Acute or unstable cardiovascular status _MAP < 55 or more than >115 _HR < 40 or > 130 [] Acute or unstable pulmonary status -FiO2 > 60% _RR < 5 or >40 _O2 sats < 85% [] Strict Bedrest [] Off Unit for surgery or procedure [] Off Unit for testing [] Pending imaging to R/O fracture [] Refusal by Patient [] Other [] OT being discontinued at this time. Patient independent. No further needs. [] OT being discontinued at this time as the patient has been transferred to hospice care. No further needs. Erica Funez OT Physical Therapy DATE: 04/27/2023 NAME: Karuna Nelson : 1960 Patient not seen this date for Physical Therapy due to: [x] Cancel by RN or physician due to: AVRIL Padilla requesting hold this date. States they have been giving transfusions to keep HgB over 7. GI consulted d/t concern for bleeding. PT will continue to follow and ck back as able. [] Hemodialysis [] Critical Lab Value Level [] Blood transfusion in progress [] Acute or unstable cardiovascular status _MAP < 55 or more than >115 _HR < 40 or > 130 [] Acute or unstable pulmonary status -FiO2 > 60% _RR < 5 or >40 _O2 sats < 85% [] Strict Bedrest [] Off Unit for surgery or procedure [] Off Unit for testing [] Pending imaging to R/O fracture [] Refusal by Patient [] Other [] PT being discontinued at this time. Patient independent. No further needs. [] PT being discontinued at this time as the patient has been transferred to hospice care. No further needs. Beth Keenan PT Images from the original note were not included. GASTROENTEROLOGY NOTE Patient: Karuna Nelson : 1960 Facility: [facility] Date: 04/27/2023 Senior Risk Analyst: Shirley Reyes APRN - RADIO MECHANIC HELPER SUBJECTIVE: 62 y.o. female admitted 04/23/2023 with Obstructive jaundice [K83.1]. Patient is resting in bed in no acute distress. Uneventful night per nurse. EGD/EUS/ERCP with metal stent placement were completed 04/25: EGD Findings:: Esophagus: Grade B esophagitis was seen at the GE junction. Biopsies were done.. Stomach: Gastritis characterized by erythema and scattered hematin material was seen in the body and antrum of the stomach. Biopsies were done to rule out H. pylori infection. Normal stomach was seen to retroflexion view. Duodenum: Large cratered duodenal ulcer with heaped up margins was seen at the duodenal sweep. Normal second part of the duodenum. EUS findings: Pancreas: A round mass was identified in the pancreatic head. Post-Op Diagnosis: Sphincterotomy, balloon sweep, sludge removal, brushing of distal biliary stricture, and placement of 8 mm by 60 mm fully covered biliary metal stent GI has been consulted due to worsening anemia. OBJECTIVE: Vital Signs: BP (!) 109/43 Pulse 59 Temp 97.9 F (36.6 C) (Oral) Resp 16 Ht 1.575 m (5' 2.01 ) Wt 96.2 kg (212 lb 1.3 oz) SpO2 93% BMI 38.78 kg/m Physical Exam: General appearance: Alert, NAD Lungs: CTA bilaterally, unlabored pattern Heart: S1S2, RRR without murmur, clicks, gallops. Abdomen: Soft, NT, ND +BS, no masses Skin/Musculoskeletal: No jaundice. No clubbing, cyanosis, or edema. ROM normal. Lab and Imaging Review Recent Labs 04/26/23 0809 04/26/23 0855 04/26/23 0951 04/26/23 1852 04/26/23 2345 04/27/23 0515 WBC -- 11.2 14.0* -- -- -- HGB -- 5.6* 6.2* 7.1* 6.5* 7.8* MCV -- 88.2 89.4 -- -- -- PLT -- 274 323 -- -- -- NA 130* -- 130* -- -- 131* K 5.9* -- 5.4* -- -- 4.8 CL 103 -- 101 -- -- 101 CO2 15* -- 14* -- -- 17* BUN 33* -- 34* -- -- 39* CREATININE 0.9 -- 1.1* -- -- 0.9 GLUCOSE 374* -- 416* -- -- 352* CALCIUM 8.2* -- 8.5* -- -- 7.7* PROT 5.7* -- 6.2* -- -- 5.4* LABALBU 2.8* -- 3.1* -- -- 2.8* AST 47* -- 50* -- -- 79* ALT 61* -- 67* -- -- 59* ALKPHOS 628* -- 695* -- -- 596* BILITOT 2.7* -- 3.0* -- -- 2.8* BILIDIR -- -- -- -- -- 1.9* LIPASE 531* -- -- -- -- 1,217* No results for input(s): INR , PROTIME in the last 72 hours. Impression: Anemia 62-year-old female with obstructive pancreatic mass status post EUS/ERCP yesterday with stent placement. Premliminary cytology completed during EUS noted suspicion for malignancy. Biopsies are pending. GI was reconsulted for anemia. Patient has severe esophagitis, suspected pancreatic malignancy, and a large cratered duodenal ulcer. All three of these could explain her anemia. Her imaging, CT and MRI, show no concerning findings within the colon. Additionally patient is angry a colonoscopy is even being discussed given her current prognosis. She would like to eat and be discharged home. PLAN: Okay to discharge home from a GI standpoint She should remain on Protonix 40 mg BID for duodenal ulcer and esophagitis. Outpatient follow up with [facility] surgery and oncology. Please recall GI as needed. Discussed with Dr. Yao Images from the original note were not included. [facility] Office: [phone] Kevin Floyd DO, Aniket Malik DO, Denton Herrmann DO, Luc Tony DO, Lubna Muñiz MD, Barbara Mari MD, Hussain Peraza MD, Alejandra Jacobsen MD, Buck Mcgee MD, Sapna Charles MD, Max Hill MD, Marlys Beckett DO, Jeromy Samson MD, Kavon Romero MD, Reid Floyd DO, Karuna Cochran MD, Michael Peterson DO, Stefanie Reynolds MD, Sadia Bazan MD, Lyn Singh MD, Shailesh Miranda MD, John Watkins MD, Cheng Montenegro MD, Tiffanie Hernandez MD, Yong Garrido MD, Simone Cunha MD, Doretha Pringle MD, Malik Carmona DO, Floyd Hardy DO, Ivan Perez MD, Latrell Barrientos MD, Anny Garcia CNP, Mini Monson CNP, Teodoro Farley CNP, Meeta Mejia, ABHINAV, Darlene Mcnair CNP, Piedad Perez CNP, Jocelyn Guerrero CNP, Alicia Lugo CNP, Christal Rosa CNP, Savana Brewster PA-C, Bettina Dominguez PA-C, Jayna Brewster CNP, Leticia Ortiz, NICO, Eliza Wong, RADIO MECHANIC HELPER, Willow Garduno, RADIO MECHANIC HELPER, Arabella Wood, RADIO MECHANIC HELPER [facility] IN-PATIENT SERVICE [facility] Progress Note 04/27/2023 9:04 AM Name: Karuna Nelson Acct: [id number] Room: [facility] Day: 4 Admit Date: 04/23/2023 1:18 PM PCP: Esau Riddle MD Code Status: Full Code Subjective: C/C: Abdominal pain with jaundice Interval History Status: not changed. Epigastric discomfort at mealtimes, sharp rise in lipase, concerning for postprocedural pancreatitis. Acute anemia assessment is not consistent with postprocedural hemorrhage. Abdominal exam essentially benign. Patient's hemoglobin is stable at greater than 7 today after receiving 2 units PRBC. Patient is advised that she has been experiencing bright red streaking in her bowel movements for the past 3 days. She believes this was hemorrhoids but due to her declining hemoglobin we will notify GI. Concern for hemolysis versus lower GI bleed. Oncology and GI following Brief History: 04/23 - Patient reports that over the past 2 weeks she has had significant epigastric discomfort after mealtimes. Over the past 48 hours she is having inability to eat or drink anything without severe nausea and vomiting. She reported to a local emergency department where lab work and imaging is consistent with obstructive jaundice. Patient is sent to this facility for MRCP and GI consultation. 04/25 - ERCP 04/25 - A round mass was identified in the pancreatic head. The mass was hypoechoic, heterogenous and solid. The mass measured 30 mm by 33 mm in maximal cross-sectional diameter. - Preliminary cytology is suspicious for malignancy 04/26 -04/27 - hyperkalemic, sharp drop in hemoglobin, received 2 units PRBC, concern for hemolysis versus lower GI bleed with oncology evaluating. Review of Systems: Review of Systems Constitutional: Positive for activity change and appetite change. Negative for chills, fatigue and fever. HENT: Negative for sinus pressure and sinus pain. Eyes: Negative for photophobia and visual disturbance. Respiratory: Negative for cough, shortness of breath and wheezing. Cardiovascular: Negative. Negative for chest pain, palpitations and leg swelling. Gastrointestinal: Positive for abdominal distention, abdominal pain, nausea and vomiting. Negative for constipation and diarrhea. Endocrine: Negative for cold intolerance, heat intolerance and polyuria. Genitourinary: Negative for difficulty urinating and urgency. Musculoskeletal: Negative for arthralgias and myalgias. Skin: Positive for color change. Negative for wound. Neurological: Negative for dizziness, syncope, weakness and light-headedness. Hematological: Negative for adenopathy. Does not bruise/bleed easily. Psychiatric/Behavioral: Negative for agitation and confusion. The patient is not nervous/anxious. Medications: Allergies: Allergies Allergen Reactions Albuterol Palpitations Patient states feels as if she is having a heart attack. Sulfa Antibiotics Shortness Of Breath and Angioedema Severe swelling Current Meds: Scheduled Meds: atorvastatin 20 mg Oral Nightly furosemide 40 mg Oral Daily glipiZIDE 10 mg Oral BID AC insulin glargine 20 Units SubCUTAneous BID lisinopril 30 mg Oral Daily metoprolol 100 mg Oral BID spironolactone 50 mg Oral Daily insulin lispro 0-16 Units SubCUTAneous TID WC insulin lispro 0-4 Units SubCUTAneous Nightly pantoprazole 40 mg Oral BID AC sodium chloride 100 mL IntraVENous Once sodium chloride flush 10 mL IntraVENous Once sodium chloride flush 5-40 mL IntraVENous 2 times per day [Held by provider] enoxaparin 40 mg SubCUTAneous Daily Continuous Infusions: sodium chloride sodium chloride dextrose sodium chloride 100 mL/hr at 04/25/231912 sodium chloride PRN Meds: sodium chloride, sodium chloride, glucose, dextrose bolus OR dextrose bolus, glucagon (rDNA), dextrose, sodium chloride flush, sodium chloride, potassium chloride OR potassium alternative oral replacement OR potassium chloride, magnesium sulfate, acetaminophen OR acetaminophen, polyethylene glycol, promethazine OR ondansetron, morphine Data: Past Medical History: has a past medical history of Chronic diastolic heart failure (HCC), Chronic obstructive pulmonary disease (HCC), Coronary arteriosclerosis, Diabetes mellitus type II, controlled (HCC), HTN (hypertension), Hypercholesterolemia, Obesity due to excess calories, Obstructive jaundice, and Pulmonary hypertension (HCC). Social History: reports that she has been smoking cigarettes. She has never used smokeless tobacco. She reports that she does not currently use alcohol. She reports that she does not currently use drugs. Family History: Family History Problem Relation Age of Onset COPD Mother Heart Disease Mother Cancer Father Heart Attack Father Cancer Sister Vitals: BP (!) 130/55 Pulse 66 Temp 97.9 F (36.6 C) (Oral) Resp 18 Ht 1.575 m (5' 2.01 ) Wt 96.2 kg (212 lb 1.3 oz) SpO2 94% BMI 38.78 kg/m Temp (24hrs), Av.8 F (36.6 C), Min:97.5 F (36.4 C), Max:98.2 F (36.8 C) Recent Labs 04/26/23 0726 04/26/23 1219 04/26/23 1634 04/27/23 0758 POCGLU 361* 403* 395* 298* I/O (24Hr): Intake/Output Summary (Last 24 hours) at 04/27/2023 0904 Last data filed at 04/27/2023 0344 Gross per 24 hour Intake 1499.39 ml Output 2100 ml Net -600.61 ml Labs: Hematology: Recent Labs 04/26/23 0855 04/26/23 0951 04/26/23 1852 04/26/23 2345 04/27/23 0515 WBC 11.2 14.0* -- -- -- RBC 2.03* 2.26* -- -- -- HGB 5.6* 6.2* 7.1* 6.5* 7.8* HCT 17.9* 20.2* 22.2* 20.0* 23.8* MCV 88.2 89.4 -- -- -- MCH 27.6 27.4 -- -- -- MCHC 31.3 30.7 -- -- -- RDW 19.8* 19.9* -- -- -- PLT 274 323 -- -- -- MPV 11.3 11.4 -- -- -- Chemistry: Recent Labs 04/26/23 0809 04/26/23 0951 04/27/23 0515 NA 130* 130* 131* K 5.9* 5.4* 4.8 CL 103 101 101 CO2 15* 14* 17* GLUCOSE 374* 416* 352* BUN 33* 34* 39* CREATININE 0.9 1.1* 0.9 ANIONGAP 12 15 13 LABGLOM >60 56* >60 CALCIUM 8.2* 8.5* 7.7* TROPHS -- 26* -- CKTOTAL -- 28 -- MYOGLOBIN -- 54 -- Recent Labs 04/25/23 1757 04/25/23 1845 04/26/23 0726 04/26/23 0809 04/26/23 0951 04/26/23 1219 04/26/23 1634 04/27/23 0515 04/27/23 0758 PROT -- -- -- 5.7* 6.2* -- -- 5.4* -- LABALBU -- -- -- 2.8* 3.1* -- -- 2.8* -- AST -- -- -- 47* 50* -- -- 79* -- ALT -- -- -- 61* 67* -- -- 59* -- ALKPHOS -- -- -- 628* 695* -- -- 596* -- BILITOT -- -- -- 2.7* 3.0* -- -- 2.8* -- BILIDIR -- -- -- -- -- -- -- 1.9* -- LIPASE -- -- -- 531* -- -- -- -- -- POCGLU 362* 305* 361* -- -- 403* 395* -- 298* ABG:No results found for: POCPH , PHART , PH , POCPCO2 , [id number] , PCO2 , POCPO2 , PO2ART , PO2 , POCHCO3 , JMZ1HRZ , HCO3 , NBEA , PBEA , BEART , BE , THGBART , THB , VWE3CQW , YQRV3NIK , E2EGWDVI , O2SAT , FIO2 No results found for: SPECIAL No results found for: CULTURE Radiology: MRI ABDOMEN W WO CONTRAST MRCP Result Date: 04/24/2023 1. Subtle focal area of hypoenhancement and increased T2 signal within the pancreatic head measuring approximately 2.8 x 2.1 cm extending predominantly within the pancreaticoduodenal groove. There is associated restricted diffusion. There is moderate intra and extrahepatic biliary duct dilation with severe narrowing versus termination near the level of the pancreatic head near the masslike area. Findings are concerning for underlying pancreatic head neoplasm. Recommend further evaluation with ERCP/EUS. 2. Distended gallbladder with mild wall thickening and gallbladder sludge. No definite cholelithiasis. Findings are nonspecific for acute cholecystitis. 3. 6 mm left lower lobe pulmonary nodule. Recommend further evaluation with chest CT. US GALLBLADDER RUQ Result Date: 04/24/2023 [ 1. Dilated common duct up to 16 mm; no intrahepatic biliary ductal dilation appreciated. Normal sonographic appearance of the gallbladder. Patient reports some pain/tenderness over the region of the gallbladder/common duct. Recommend further evaluation with MRCP or ERCP. 2. Suboptimal visualization of the liver secondary to overlying structures. Physical Examination: Physical Exam Constitutional: Appearance: She is obese. HENT: Head: Normocephalic and atraumatic. Mouth/Throat: Mouth: Mucous membranes are dry. Eyes: Extraocular Movements: Extraocular movements intact. Pupils: Pupils are equal, round, and reactive to light. Cardiovascular: Rate and Rhythm: Normal rate. Pulses: Normal pulses. Heart sounds: Normal heart sounds. Pulmonary: Effort: Pulmonary effort is normal. No respiratory distress. Breath sounds: Normal breath sounds. Abdominal: General: Abdomen is flat. Bowel sounds are normal. There is distension. Palpations: Abdomen is soft. Musculoskeletal: General: No swelling or deformity. Normal range of motion. Skin: General: Skin is warm and dry. Capillary Refill: Capillary refill takes 2 to 3 seconds. Coloration: Skin is not pale. Comments: Jaundiced Neurological: General: No focal deficit present. Mental Status: She is alert and oriented to person, place, and time. Psychiatric: Mood and Affect: Mood normal. Behavior: Behavior normal. Assessment: Hospital Problems Last Modified POA * (Principal) Obstructive jaundice 04/23/2023 Yes Chronic diastolic heart failure (HCC) 04/23/2023 Yes Chronic obstructive pulmonary disease (HCC) 04/23/2023 Yes HTN (hypertension) 04/23/2023 Yes Pulmonary hypertension (HCC) 04/23/2023 Yes Overview Signed 04/23/2023 3:38 PM by Teodoro Farley SPEECH TEACHER - PRODUCTION SUPPORT CONSULTANT moderate per cath 08/07/2020 Obesity due to excess calories 04/23/2023 Yes Hypercholesterolemia 04/23/2023 Yes Diabetes mellitus type II, controlled (HCC) 04/23/2023 Yes Coronary arteriosclerosis 04/23/2023 Yes Overview Signed 04/23/2023 3:38 PM by Teodoro Farley SPEECH TEACHER - PRODUCTION SUPPORT CONSULTANT mild per cath 08/07/2020 Pancreatic mass 04/26/2023 Yes Plan: Obstructive jaundice with right upper quadrant abdominal pain Highly likely this is metastatic pancreatic cancer. Outpatient PET and oncology follow-up Concern for postprocedural pancreatitis N.p.o., IV hydration, pain control Acute anemia of uncertain etiology Continue to trend H&H and transfuse as needed, hold Lovenox Await input from GI on lower GI bleeding evaluation hematology/oncology on board and following for hemolysis Chronic diastolic heart failure without exacerbation with a known history of hypertension with hyperlipidemia and a history of CAD Continue Lipitor, Lasix, metoprolol, spironolactone, lisinopril Labetalol as needed IV Type 2 diabetes on long-term insulin Corrective sliding scale insulin for now Patient n.p.o. again, hold the following Lantus 20 twice daily glipizide and metformin. CHACHO Camacho NP 04/27/2023 9:04 AM Images from the original note were not included. Today's Date: 04/27/2023 Patient Name: Karuna Nelson Date of admission: 04/23/2023 1:18 PM Patient's age: 62 y.o., 1960 Admission Dx: Obstructive jaundice [K83.1] Reason for Consult: management recommendations Requesting Physician: Shailesh Miranda MD CHIEF COMPLAINT: Jaundice. Anemia. Abdominal pain. Pancreatic mass. History Obtained From: patient, electronic medical record Interval history: Patient seen and examined Labs vital reviewed Bilirubin down to 2.8. Conjugated bilirubin 1.9. Hemoglobin 7.8. Patient has adequate B12 folic acid stores. Iron studies suggest anemia of chronic disease. CA 19-9 1100 Haptoglobin elevated. Patient having dark bowel movements. Denies any worsening of abdominal pain after procedure HISTORY OF PRESENT ILLNESS: The patient is a 62 y.o. female who is admitted to the hospital with chief complaints of abdominal pain. Patient has been having abdominal pain for the last couple of weeks. Complains of loss of appetite. Also noticed that she was jaundiced. Upon evaluation in the ER patient underwent MRI abdomen which showed subtle hypoenhancement in the pancreatic head. GI team was consulted. Underwent EGD with ERCP and EUS. EUS showed a pancreatic mass concerning for malignancy. However final path report pending. Patient also underwent CT chest which shows 1.4 cm renal mass probable adenoma. Shows 1.1 cm right lower lobe and 7 mm left lower lobe nodule. Postprocedure patient also has become anemic with acute drop in hemoglobin. Past Medical History: has a past medical history of Chronic diastolic heart failure (HCC), Chronic obstructive pulmonary disease (HCC), Coronary arteriosclerosis, Diabetes mellitus type II, controlled (HCC), HTN (hypertension), Hypercholesterolemia, Obesity due to excess calories, Obstructive jaundice, and Pulmonary hypertension (HCC). Past Surgical History: has a past surgical history that includes Upper gastrointestinal endoscopy (N/A, 04/25/2023) and ERCP (N/A, 04/25/2023). Medications: Prior to Admission medications Medication Sig Start Date End Date Taking? Authorizing Provider acetaminophen (TYLENOL) 325 MG tablet Take 1 tablet by mouth daily as needed for Pain Yes Rocio Toribio MD clopidogrel (PLAVIX) 75 MG tablet Take 1 tablet by mouth daily 06/29/22 Yes Rocio Toribio MD furosemide (LASIX) 40 MG tablet Take 1 tablet by mouth daily 06/29/22 Yes Rocio Toribio MD glipiZIDE (GLUCOTROL) 10 MG tablet Take 1 tablet by mouth 2 times daily (before meals) 06/29/22 Yes Rocio Toribio MD lisinopril (PRINIVIL;ZESTRIL) 30 MG tablet Take 1 tablet by mouth daily 06/29/22 Yes Rocio Toribio MD metoprolol (LOPRESSOR) 100 MG tablet Take 1 tablet by mouth 2 times daily 10/06/22 Yes Rocio Toribio MD spironolactone (ALDACTONE) 50 MG tablet Take 1 tablet by mouth daily 06/29/22 Yes Rocio Toribio MD LANTUS SOLOSTAR 100 UNIT/ML injection pen Inject 20 Units into the skin 2 times daily 04/20/23 Yes Rocio Toribio MD aspirin 81 MG chewable tablet Take 1 tablet by mouth daily Rocio Toribio MD atorvastatin (LIPITOR) 20 MG tablet Take 1 tablet by mouth nightly at bedtime. Rocio Toribio MD Dulaglutide (TRULICITY) 0.75 MG/0.5ML SOPN Inject 0.75 mg into the skin once a week Rocio Toribio MD insulin lispro, 1 Unit Dial, (HUMALOG KWIKPEN) 100 UNIT/ML SOPN Inject 2-10 Units into the skin 3 times daily (before meals) Per sliding scale: 151-200 = give 2U, 201-250 = give 4U, 251-300 = give 6U, 301-350 = give 8U, 351-400 = give 10U ProviderRocio MD metFORMIN (GLUCOPHAGE-XR) 500 MG extended release tablet Take 2 tablets by mouth 2 times daily ProviderRocio MD Current Facility-Administered Medications Medication Dose Route Frequency Provider Last Rate Last Admin 0.9 % sodium chloride infusion IntraVENous PRN Willow Garduno APRN - CNP 0.9 % sodium chloride infusion IntraVENous PRN Teodoro Farley APRN - PRODUCTION SUPPORT CONSULTANT glucose chewable tablet 16 g 4 tablet Oral PRN Teodoro Farley APRN - PRODUCTION SUPPORT CONSULTANT dextrose bolus 10% 125 mL 125 mL IntraVENous PRN Teodoro Farley APRN - PRODUCTION SUPPORT CONSULTANT Or dextrose bolus 10% 250 mL 250 mL IntraVENous PRN Teodoro Farley APRN - PRODUCTION SUPPORT CONSULTANT glucagon injection 1 mg 1 mg SubCUTAneous PRN Teodoro Farley APRN - RU dextrose 10 % infusion IntraVENous Continuous PRN Teodoro Farley SPEECH TEACHER - PRODUCTION SUPPORT CONSULTANT atorvastatin (LIPITOR) tablet 20 mg 20 mg Oral Nightly Teodoro Farley APRN - PRODUCTION SUPPORT CONSULTANT 20 mg at 04/26/232127 furosemide (LASIX) tablet 40 mg 40 mg Oral Daily Teodoro Farley APRN - PRODUCTION SUPPORT CONSULTANT 40 mg at 04/26/231735 glipiZIDE (GLUCOTROL) tablet 10 mg 10 mg Oral BID AC Teodoro Farley SPEECH TEACHER - PRODUCTION SUPPORT CONSULTANT 10 mg at 04/27/23 0504 insulin glargine (LANTUS) injection vial 20 Units 20 Units SubCUTAneous BID Teodoro Farley SPEECH TEACHER - PRODUCTION SUPPORT CONSULTANT 20 Units at 04/26/232127 lisinopril (PRINIVIL;ZESTRIL) tablet 30 mg 30 mg Oral Daily Teodoro Farley APRN - PRODUCTION SUPPORT CONSULTANT 30 mg at 04/26/23 173 metoprolol (LOPRESSOR) tablet 100 mg 100 mg Oral BID Teodoro Farley APRN - PRODUCTION SUPPORT CONSULTANT 100 mg at 04/26/232127 spironolactone (ALDACTONE) tablet 50 mg 50 mg Oral Daily Teodoro Farley SPEECH TEACHER - PRODUCTION SUPPORT CONSULTANT 50 mg at 04/26/23 1737 insulin lispro (HUMALOG) injection vial 0-16 Units 0-16 Units SubCUTAneous TID WC Teodoro Farley APRN - NP 16 Units at 04/26/23 1737 insulin lispro (HUMALOG) injection vial 0-4 Units 0-4 Units SubCUTAneous Nightly Teodoro Farley APRN - NP pantoprazole (PROTONIX) tablet 40 mg 40 mg Oral BID AC Satinder Yao MD 40 mg at 04/27/23 0504 sodium chloride 0.9 % bolus 100 mL 100 mL IntraVENous Once Satinder Yao MD 0.9 % sodium chloride infusion IntraVENous Continuous Satinder Yao MD 100 mL/hr at 04/25/23 1913 New Bag at 04/25/23 1913 sodium chloride flush 0.9 % injection 10 mL 10 mL IntraVENous Once Satinder Yao MD sodium chloride flush 0.9 % injection 5-40 mL 5-40 mL IntraVENous 2 times per day Satinder Yao MD 10 mL at 04/24/23 1049 sodium chloride flush 0.9 % injection 10 mL 10 mL IntraVENous PRN Satinder Yao MD 10 mL at 04/24/23 2038 0.9 % sodium chloride infusion IntraVENous PRN Satinder Yao MD potassium chloride (KLOR-CON M) extended release tablet 40 mEq 40 mEq Oral PRN Satinder Yao MD Or potassium bicarb-citric acid (EFFER-K) effervescent tablet 40 mEq 40 mEq Oral PRN Satinder Yao MD Or potassium chloride 10 mEq/100 mL IVPB (Peripheral Line) 10 mEq IntraVENous PRN Satinder Yao MD magnesium sulfate 1000 mg in dextrose 5% 100 mL IVPB 1,000 mg IntraVENous PRN Satinder Yao MD [Held by provider] enoxaparin (LOVENOX) injection 40 mg 40 mg SubCUTAneous Daily Satinder Yao MD 40 mg at 04/26/23 0901 acetaminophen (TYLENOL) tablet 650 mg 650 mg Oral Q6H PRN Satinder Yao T, MD Or acetaminophen (TYLENOL) suppository 650 mg 650 mg Rectal Q6H PRN Satinder Yao MD polyethylene glycol (GLYCOLAX) packet 17 g 17 g Oral Daily PRN Satinder Yao MD promethazine (PHENERGAN) tablet 12.5 mg 12.5 mg Oral Q6H PRN Satinder Yao MD 12.5 mg at 04/25/23 0509 Or ondansetron (ZOFRAN) injection 4 mg 4 mg IntraVENous Q6H PRN Satinder Yao MD 4 mg at 04/24/23 1106 morphine sulfate (PF) injection 4 mg 4 mg IntraVENous Q4H PRN Satinder Yao MD Allergies: Albuterol and Sulfa antibiotics Social History: reports that she has been smoking cigarettes. She has never used smokeless tobacco. She reports that she does not currently use alcohol. She reports that she does not currently use drugs. Family History: family history includes COPD in her mother; Cancer in her father and sister; Heart Attack in her father; Heart Disease in her mother. REVIEW OF SYSTEMS: Constitutional: No fever or chills. No night sweats, positive weight loss Eyes: No eye discharge, double vision, or eye pain HEENT: negative for sore mouth, sore throat, hoarseness and voice change Respiratory: negative for cough , sputum, dyspnea, wheezing, hemoptysis, chest pain Cardiovascular: negative for chest pain, dyspnea, palpitations, orthopnea, PND Gastrointestinal: negative for nausea, vomiting, diarrhea, constipation, dysphagia, hematemesis and hematochezia. PERRL abdominal pain Genitourinary: negative for frequency, dysuria, nocturia, urinary incontinence, and hematuria Integument: negative for rash, skin lesions, bruises. Hematologic/Lymphatic: negative for easy bruising, bleeding, lymphadenopathy, or petechiae Endocrine: negative for heat or cold intolerance,weight changes, change in bowel habits and hair loss Musculoskeletal: negative for myalgias, arthralgias, pain, joint swelling,and bone pain Neurological: negative for headaches, dizziness, seizures, weakness, numbness PHYSICAL EXAM: BP (!) 130/55 Pulse 66 Temp 97.9 F (36.6 C) (Oral) Resp 18 Ht 1.575 m (5' 2.01 ) Wt 96.2 kg (212 lb 1.3 oz) SpO2 94% BMI 38.78 kg/m Temp (24hrs), Av.8 F (36.6 C), Min:97.5 F (36.4 C), Max:98.2 F (36.8 C) General appearance - well appearing, no in pain or distress Mental status - alert and cooperative Eyes - pupils equal and reactive, extraocular eye movements intact Ears - bilateral TM's and external ear canals normal Mouth - mucous membranes moist, pharynx normal without lesions Neck - supple, no significant adenopathy Lymphatics - no palpable lymphadenopathy, no hepatosplenomegaly Chest - clear to auscultation, no wheezes, rales or rhonchi, symmetric air entry Heart - normal rate, regular rhythm, normal S1, S2, no murmurs Abdomen - soft, nontender, nondistended, no masses or organomegaly Neurological - alert, oriented, normal speech, no focal findings or movement disorder noted Musculoskeletal - no joint tenderness, deformity or swelling Extremities - peripheral pulses normal, no pedal edema, no clubbing or cyanosis Skin - normal coloration and turgor, no rashes, no suspicious skin lesions noted , DATA: Labs: Results for orders placed or performed during the hospital encounter of 04/23/23 BUN & Creatinine Result Value Ref Range BUN 43 (H) 8 - 23 mg/dL Creatinine 0.7 0.5 - 0.9 mg/dL Est, Glom Filt Rate >60 >60 mL/min/1.73m2 Procalcitonin Result Value Ref Range Procalcitonin 0.26 (H) 0.00 - 0.09 ng/mL Comprehensive Metabolic Panel w/ Reflex to MG Result Value Ref Range Sodium 130 (L) 135 - 144 mmol/L Potassium 5.2 3.7 - 5.3 mmol/L Chloride 105 98 - 107 mmol/L CO2 15 (L) 20 - 31 mmol/L Anion Gap 10 9 - 17 mmol/L Glucose 334 (H) 70 - 99 mg/dL BUN 31 (H) 8 - 23 mg/dL Creatinine 0.8 0.5 - 0.9 mg/dL Est, Glom Filt Rate >60 >60 mL/min/1.73m2 Bun/Cre Ratio 39 (H) 9 - 20 Calcium 8.7 8.6 - 10.4 mg/dL Total Protein 6.1 (L) 6.4 - 8.3 g/dL Albumin 3.0 (L) 3.5 - 5.2 g/dL Total Bilirubin 6.3 (H) 0.3 - 1.2 mg/dL Alkaline Phosphatase 801 (H) 35 - 104 U/L ALT 88 (H) 5 - 33 U/L AST 56 (H) <32 U/L Magnesium Result Value Ref Range Magnesium 1.9 1.6 - 2.6 mg/dL Phosphorus Result Value Ref Range Phosphorus 2.4 (L) 2.6 - 4.5 mg/dL Lipase Result Value Ref Range Lipase 238 (H) 13 - 60 U/L CBC auto differential Result Value Ref Range WBC 9.2 3.5 - 11.3 k/uL RBC 3.28 (L) 3.95 - 5.11 m/uL Hemoglobin 8.9 (L) 11.9 - 15.1 g/dL Hematocrit 28.3 (L) 36.3 - 47.1 % MCV 86.3 82.6 - 102.9 fL MCH 27.1 25.2 - 33.5 pg MCHC 31.4 28.4 - 34.8 g/dL RDW 19.1 (H) 11.8 - 14.4 % Platelets 305 138 - 453 k/uL MPV 11.5 8.1 - 13.5 fL NRBC Automated 0.0 0.0 per 100 WBC Neutrophils % 72 (H) 36 - 65 % Lymphocytes % 14 (L) 24 - 43 % Monocytes % 8 3 - 12 % Eosinophils % 4 1 - 4 % Basophils % 1 0 - 2 % Immature Granulocytes 1 (H) 0 % Neutrophils Absolute 6.70 1.50 - 8.10 k/uL Lymphocytes Absolute 1.25 1.10 - 3.70 k/uL Monocytes Absolute 0.70 0.10 - 1.20 k/uL Eosinophils Absolute 0.40 0.00 - 0.44 k/uL Basophils Absolute 0.12 0.00 - 0.20 k/uL Absolute Immature Granulocyte 0.07 0.00 - 0.30 k/uL RBC Morphology ANISOCYTOSIS PRESENT Cytology, Non-Lubrication Technician Result Value Ref Range Comprehensive Metabolic Panel w/ Reflex to MG Result Value Ref Range Sodium 130 (L) 135 - 144 mmol/L Potassium 5.9 (H) 3.7 - 5.3 mmol/L Chloride 103 98 - 107 mmol/L CO2 15 (L) 20 - 31 mmol/L Anion Gap 12 9 - 17 mmol/L Glucose 374 (H) 70 - 99 mg/dL BUN 33 (H) 8 - 23 mg/dL Creatinine 0.9 0.5 - 0.9 mg/dL Est, Glom Filt Rate >60 >60 mL/min/1.73m2 Bun/Cre Ratio 37 (H) 9 - 20 Calcium 8.2 (L) 8.6 - 10.4 mg/dL Total Protein 5.7 (L) 6.4 - 8.3 g/dL Albumin 2.8 (L) 3.5 - 5.2 g/dL Total Bilirubin 2.7 (H) 0.3 - 1.2 mg/dL Alkaline Phosphatase 628 (H) 35 - 104 U/L ALT 61 (H) 5 - 33 U/L AST 47 (H) <32 U/L Lipase Result Value Ref Range Lipase 531 (H) 13 - 60 U/L CBC with Auto Differential Result Value Ref Range WBC 11.2 3.5 - 11.3 k/uL RBC 2.03 (L) 3.95 - 5.11 m/uL Hemoglobin 5.6 (LL) 11.9 - 15.1 g/dL Hematocrit 17.9 (L) 36.3 - 47.1 % MCV 88.2 82.6 - 102.9 fL MCH 27.6 25.2 - 33.5 pg MCHC 31.3 28.4 - 34.8 g/dL RDW 19.8 (H) 11.8 - 14.4 % Platelets 274 138 - 453 k/uL MPV 11.3 8.1 - 13.5 fL NRBC Automated 0.2 (H) 0.0 per 100 WBC Neutrophils % 86 (H) 36 - 65 % Lymphocytes % 11 (L) 24 - 43 % Monocytes % 2 (L) 3 - 12 % Eosinophils % 0 (L) 1 - 4 % Basophils % 0 0 - 2 % Immature Granulocytes 1 (H) 0 % Neutrophils Absolute 9.64 (H) 1.50 - 8.10 k/uL Lymphocytes Absolute 1.23 1.10 - 3.70 k/uL Monocytes Absolute 0.22 0.10 - 1.20 k/uL Eosinophils Absolute 0.00 0.00 - 0.44 k/uL Basophils Absolute 0.00 0.00 - 0.20 k/uL Absolute Immature Granulocyte 0.11 0.00 - 0.30 k/uL Haptoglobin Result Value Ref Range Haptoglobin 376 (H) 30 - 200 mg/dL Fibrinogen Result Value Ref Range Fibrinogen 639 (H) 179 - 518 mg/dL Fibrin Split Products Result Value Ref Range FDP <5 <5 ug/mL CBC with Auto Differential Result Value Ref Range WBC 14.0 (H) 3.5 - 11.3 k/uL RBC 2.26 (L) 3.95 - 5.11 m/uL Hemoglobin 6.2 (LL) 11.9 - 15.1 g/dL Hematocrit 20.2 (L) 36.3 - 47.1 % MCV 89.4 82.6 - 102.9 fL MCH 27.4 25.2 - 33.5 pg MCHC 30.7 28.4 - 34.8 g/dL RDW 19.9 (H) 11.8 - 14.4 % Platelets 323 138 - 453 k/uL MPV 11.4 8.1 - 13.5 fL NRBC Automated 0.3 (H) 0.0 per 100 WBC Neutrophils % 87 (H) 36 - 65 % Lymphocytes % 10 (L) 24 - 43 % Monocytes % 2 (L) 3 - 12 % Eosinophils % 0 (L) 1 - 4 % Basophils % 0 0 - 2 % Immature Granulocytes 1 (H) 0 % Neutrophils Absolute 12.18 (H) 1.50 - 8.10 k/uL Lymphocytes Absolute 1.40 1.10 - 3.70 k/uL Monocytes Absolute 0.28 0.10 - 1.20 k/uL Eosinophils Absolute 0.00 0.00 - 0.44 k/uL Basophils Absolute 0.00 0.00 - 0.20 k/uL Absolute Immature Granulocyte 0.14 0.00 - 0.30 k/uL Comprehensive Metabolic Panel w/ Reflex to MG Result Value Ref Range Sodium 130 (L) 135 - 144 mmol/L Potassium 5.4 (H) 3.7 - 5.3 mmol/L Chloride 101 98 - 107 mmol/L CO2 14 (L) 20 - 31 mmol/L Anion Gap 15 9 - 17 mmol/L Glucose 416 (HH) 70 - 99 mg/dL BUN 34 (H) 8 - 23 mg/dL Creatinine 1.1 (H) 0.5 - 0.9 mg/dL Est, Glom Filt Rate 56 (L) >60 mL/min/1.73m2 Bun/Cre Ratio 31 (H) 9 - 20 Calcium 8.5 (L) 8.6 - 10.4 mg/dL Total Protein 6.2 (L) 6.4 - 8.3 g/dL Albumin 3.1 (L) 3.5 - 5.2 g/dL Total Bilirubin 3.0 (H) 0.3 - 1.2 mg/dL Alkaline Phosphatase 695 (H) 35 - 104 U/L ALT 67 (H) 5 - 33 U/L AST 50 (H) <32 U/L CK Result Value Ref Range Total CK 28 26 - 192 U/L Trop/Myoglobin Result Value Ref Range Troponin, High Sensitivity 26 (H) 0 - 14 ng/L Myoglobin 54 25 - 58 ng/mL Hemoglobin and Hematocrit Result Value Ref Range Hemoglobin 6.5 (LL) 11.9 - 15.1 g/dL Hematocrit 20.0 (L) 36.3 - 47.1 % Hemoglobin and Hematocrit Result Value Ref Range Hemoglobin 7.8 (L) 11.9 - 15.1 g/dL Hematocrit 23.8 (L) 36.3 - 47.1 % Hemoglobin and Hematocrit Result Value Ref Range Hemoglobin 7.1 (L) 11.9 - 15.1 g/dL Hematocrit 22.2 (L) 36.3 - 47.1 % Cancer Antigen 19-9 Result Value Ref Range CA 19-9 1114 (H) 0 - 35 U/mL Ferritin Result Value Ref Range Ferritin 173 (H) 13 - 150 ng/mL Iron and TIBC Result Value Ref Range Iron 252 (H) 37 - 145 ug/dL TIBC 281 250 - 450 ug/dL Iron % Saturation 90 (H) 20 - 55 % UIBC 29 (L) 112 - 347 ug/dL Vitamin B12 & Folate Result Value Ref Range Vitamin B-12 966 232 - 1245 pg/mL Folate 6.0 >4.8 ng/mL Reticulocytes Result Value Ref Range Retic % 4.2 (H) 0.5 - 1.9 % Absolute Retic # 0.113 (H) 0.030 - 0.080 M/uL Immature Retic Fract 38.0 (H) 2.7 - 18.3 % Retic Hemoglobin 29.8 28.2 - 35.7 pg Hepatic Function Panel Result Value Ref Range Albumin 2.8 (L) 3.5 - 5.2 g/dL Alkaline Phosphatase 596 (H) 35 - 104 U/L ALT 59 (H) 5 - 33 U/L AST 79 (H) <32 U/L Total Bilirubin 2.8 (H) 0.3 - 1.2 mg/dL Bilirubin, Direct 1.9 (H) <0.3 mg/dL Bilirubin, Indirect 0.9 0.0 - 1.0 mg/dL Total Protein 5.4 (L) 6.4 - 8.3 g/dL Basic Metabolic Panel w/ Reflex to MG Result Value Ref Range Sodium 131 (L) 135 - 144 mmol/L Potassium 4.8 3.7 - 5.3 mmol/L Chloride 101 98 - 107 mmol/L CO2 17 (L) 20 - 31 mmol/L Anion Gap 13 9 - 17 mmol/L Glucose 352 (H) 70 - 99 mg/dL BUN 39 (H) 8 - 23 mg/dL Creatinine 0.9 0.5 - 0.9 mg/dL Est, Glom Filt Rate >60 >60 mL/min/1.73m2 Bun/Cre Ratio 43 (H) 9 - 20 Calcium 7.7 (L) 8.6 - 10.4 mg/dL POC Glucose Fingerstick Result Value Ref Range POC Glucose 330 (H) 65 - 105 mg/dL POC Glucose Fingerstick Result Value Ref Range POC Glucose 341 (H) 65 - 105 mg/dL POC Glucose Fingerstick Result Value Ref Range POC Glucose 307 (H) 65 - 105 mg/dL POC Glucose Fingerstick Result Value Ref Range POC Glucose 362 (H) 65 - 105 mg/dL POC Glucose Fingerstick Result Value Ref Range POC Glucose 305 (H) 65 - 105 mg/dL POC Glucose Fingerstick Result Value Ref Range POC Glucose 361 (H) 65 - 105 mg/dL POC Glucose Fingerstick Result Value Ref Range POC Glucose 403 (HH) 65 - 105 mg/dL POC Glucose Fingerstick Result Value Ref Range POC Glucose 395 (H) 65 - 105 mg/dL POC Glucose Fingerstick Result Value Ref Range POC Glucose 298 (H) 65 - 105 mg/dL TYPE AND SCREEN Result Value Ref Range Blood Bank Sample Expiration 04/29/2023,2359 Arm Band Number [id number] ABO/Rh B POSITIVE Antibody Screen NEGATIVE Unit Number [id number] Component Leukocyte Reduced Red Cell Unit Divison 00 Dispense Status Blood Bank ISSUED Unit Issue Date/Time 954029009585 Product Code Blood Bank [id number] Blood Bank Unit Type and Rh O POS Blood Bank ISBT Product Blood Type 5100 Blood Bank Blood Product Expiration Date [id number] Transfusion Status OK TO TRANSFUSE Crossmatch Result COMPATIBLE Unit Number [id number] Component Leukocyte Reduced Red Cell Unit Divison 00 Dispense Status Blood Bank ISSUED Unit Issue Date/Time [id number] Product Code Blood Bank [id number] Blood Bank Unit Type and Rh O POS Blood Bank ISBT Product Blood Type 5100 Blood Bank Blood Product Expiration Date [id number] Transfusion Status OK TO TRANSFUSE Crossmatch Result COMPATIBLE IMAGING DATA: FLUORO FOR SURGICAL PROCEDURES Result Date: 04/25/2023 Radiology exam is complete. No Radiologist dictation. Please follow up with ordering provider. CT CHEST ABDOMEN PELVIS W CONTRAST Additional Contrast? None Result Date: 04/24/2023 EXAMINATION: CT OF THE CHEST, ABDOMEN, AND PELVIS WITH CONTRAST 04/24/2023 8:31 pm TECHNIQUE: CT of the chest, abdomen and pelvis was performed with the administration of intravenous contrast. Multiplanar reformatted images are provided for review. Automated exposure control, iterative reconstruction, and/or weight based adjustment of the mA/kV was utilized to reduce the radiation dose to as low as reasonably achievable. COMPARISON: MRI abdomen with and without contrast/MRCP performed approximately 10 hours earlier. HISTORY: ORDERING SYSTEM PROVIDED HISTORY: Pancreatic mass, obstructive jaundice, incidental pulmonary nodules identified on PARKS AND RECREATION WORKER PROVIDED HISTORY: Pancreatic mass, obstructive jaundice, incidental pulmonary nodules identified on MRI Reason for Exam: Pancreatic mass, obstructive jaundice, incidental pulmonary nodules identified on MRI FINDINGS: Chest: Mediastinum: No evidence of mediastinal, hilar or axillary lymphadenopathy. Aorta is normal in caliber without acute abnormality. The central airways are clear. Tiny hiatal hernia noted. Lungs/pleura: At the infrahilar anteromedial aspect of the right lower lobe, there is a relatively smooth margined 1.1 cm mass with inferiorly adjacent scarring/retraction. At the lateral aspect of the inferior left lower lobe, the 6-7 mm nodule identified on the earlier MRI is again noted. The lungs otherwise are clear. No pneumothorax or pleural effusion. Soft Tissues/Bones: No acute bone or soft tissue abnormality evident. Abdomen/Pelvis: Organs: There is moderate intra and extrahepatic ductal dilatation. The liver is otherwise unremarkable. The gallbladder is moderately distended and appears to be sludge-filled. There is vague ill-defined mildly hypoenhancing area at the pancreatic head corresponding to the finding on the earlier MRI. There is mild edema in the anteriorly adjacent fatty tissues. The common duct is dilated proximal to this. The pancreatic duct is of normal caliber. The pancreas is otherwise unremarkable. The spleen contains a calcified granuloma but is otherwise unremarkable. The right adrenal gland, left kidney and visualized bilateral ureters are unremarkable. The left adrenal gland is noted for a 1.4 cm mass with a density of 61 Hounsfield units. The right kidney contains 2 small simple cysts not requiring imaging follow-up. GI/Bowel: Stomach and duodenal sweep demonstrate no acute abnormality. There is no evidence of bowel obstruction. No evidence of abnormal bowel wall thickening or distension. The appendix is visualized and is unremarkable. No evidence of acute appendicitis. Pelvis: The bladder and reproductive organs are unremarkable. Peritoneum/Retroperitoneum: No evidence of ascites or free air. No evidence of lymphadenopathy. Aorta is normal in caliber. Bones/Soft Tissues: No acute bone or soft tissue abnormality. There is mild grade 1 anterolisthesis of L5 on S1 due to bilateral L5 pars defects. 1. There is a vague ill-defined hypoenhancing area at the pancreatic head corresponding to the finding on the earlier MRI. This is concerning for a primary pancreatic neoplasm. There is moderate intra and extrahepatic ductal dilatation. The pancreatic duct is of normal caliber. As noted in the report for the MRI, follow-up ERCP/EUS recommended for further evaluation. 2. There is a 1.4 cm left adrenal mass. Recommendation below. 3. There is a 1.1 cm mass in the right lower lobe and a 6-7 mm nodule in the left lower lobe. Recommendation below. 4. No other evidence of metastatic disease in the chest, abdomen or pelvis. 5. There is mild grade 1 anterolisthesis of L5 on S1 due to bilateral L5 pars defects. RECOMMENDATIONS: Pathology: 1.4 cm left adrenal mass, probable benign adenoma.Recommend follow-up adrenal washout CT in 1 year. If stable for ? 1 year, no further follow-up imaging.JACR 2017 Nov; 14(8):1038-44, JCAT 2016 Jun-Jul; 40(2):194-200, Urol J spring; 3(2):71-4. Pathology: 11 mm right solid pulmonary nodule.Per Fleischner Society Guidelines, consider a non-contrast Chest CT at 3 months, a PET/CT, or tissue sampling.These guidelines do not apply to immunocompromised patients and patients with cancer. Follow up in patients with significant comorbidities as clinically warranted. For lung cancer screening, adhere to Lung-RADS guidelines. Reference: Radiology. 2017; 284(1):228-43. MRI ABDOMEN W WO CONTRAST MRCP Result Date: 04/24/2023 EXAMINATION: MRI OF THE ABDOMEN WITH AND WITHOUT CONTRAST AND MRCP 04/24/2023 9:52 am TECHNIQUE: Multiplanar multisequence MRI of the abdomen was performed with and without the administration of intravenous contrast. After initial T2 axial and coronal images, thick slab, thin slab and 3D coronal MRCP sequences were obtained without the administration of intravenous contrast. MIP images are provided for review. COMPARISON: Ultrasound 04/24/23 HISTORY: ORDERING SYSTEM PROVIDED HISTORY: Obstructive jaundice TECHNOLOGIST PROVIDED HISTORY: Obstructive jaundice What is the sedation requirement?->None Reason for Exam: Patient states that she's having Right upper quadrant pain for 2 weeks, no surgery, having diarrhea and throwing up Additional signs and symptoms: Obstructive jaundice FINDINGS: Pancreas: Pancreas demonstrates normal signal intensity on the precontrast T1 images. Within the pancreatic head, there is a subtle focal area of hypoenhancement and increased T2 signal measuring approximately 2.8 x 2.1 cm extending predominantly within the pancreaticoduodenal groove (series 1202, image 98). There is associated restricted diffusion. There is questionable mild peripancreatic stranding in this region. There is pypc-ch-exeqgyrk atrophy of the body and tail without significant duct dilation. Biliary system: The gallbladder is distended with mild gallbladder wall thickening measuring up to 4 mm. There is gallbladder sludge and no definite cholelithiasis. There is moderate intra and extrahepatic biliary duct dilation with severe narrowing versus termination near the level of the pancreatic head near the above masslike area. The common bile duct measures up to 10 mm. Liver: No abnormal loss of signal intensity of liver parenchyma on the T1 in or out of phase images. No focal hepatic lesion. Kidneys: The kidneys enhance symmetrically. Both kidneys are lobular in contour. No hydronephrosis or perinephric stranding. Bosniak type 1 and type 2 bilateral renal cysts the largest measuring up to 1.3 cm. Other: The spleen is within normal limits. There is mild thickening of the right adrenal gland with diffuse loss of signal intensity on the T1 out of phase images. There is a similar appearance to the left adrenal gland which is slightly more thickened with a more focal probable nodule measuring 1.3 cm also demonstrating loss of signal intensity on the T1 out of phase images. The aorta is normal in caliber with [id number] atherosclerosis. The celiac axis and SMA are grossly patent. Portal venous system is patent. No pathologically enlarged adenopathy. No ascites or drainable fluid collection. There is mild wall thickening of the 2nd portion of the duodenum, nonspecific. The visualized bowel is otherwise unremarkable. There is a 6 mm left lower lobe pulmonary nodule. 1. Subtle focal area of hypoenhancement and increased T2 signal within the pancreatic head measuring approximately 2.8 x 2.1 cm extending predominantly within the pancreaticoduodenal groove. There is associated restricted diffusion. There is moderate intra and extrahepatic biliary duct dilation with severe narrowing versus termination near the level of the pancreatic head near the masslike area. Findings are concerning for underlying pancreatic head neoplasm. Recommend further evaluation with ERCP/EUS. 2. Distended gallbladder with mild wall thickening and gallbladder sludge. No definite cholelithiasis. Findings are nonspecific for acute cholecystitis. 3. 6 mm left lower lobe pulmonary nodule. Recommend further evaluation with chest CT. US GALLBLADDER RUQ Result Date: 04/24/2023 EXAMINATION: RIGHT UPPER QUADRANT ULTRASOUND 04/24/2023 7:05 am COMPARISON: None. HISTORY: ORDERING SYSTEM PROVIDED HISTORY: pain > ?stone TECHNOLOGIST PROVIDED HISTORY: Pain > ?stone FINDINGS: LIVER: Suboptimal visualization secondary to over ribs. Normal echogenicity of the visualized liver without focal mass. Hepatopetal portal venous flow. BILIARY SYSTEM: No cholelithiasis, gallbladder wall thickening, or pericholecystic fluid. Wire Basket Maker reports some pain over the gallbladder/common duct. Common duct measures 16 mm in diameter. RIGHT KIDNEY: 13-14 mm cortical cyst. Otherwise, normal cortical thickness and echogenicity. No hydronephrosis or distinct shadowing intrarenal calculus. PANCREAS: Visualized portions of the pancreas are unremarkable. OTHER: No evidence of right upper quadrant ascites. [ 1. Dilated common duct up to 16 mm; no intrahepatic biliary ductal dilation appreciated. Normal sonographic appearance of the gallbladder. Patient reports some pain/tenderness over the region of the gallbladder/common duct. Recommend further evaluation with MRCP or ERCP. 2. Suboptimal visualization of the liver secondary to overlying structures. IMPRESSION: Primary Problem Obstructive jaundice Active Hospital Problems Diagnosis Date Noted Pancreatic mass [K86.89] 04/26/2023 Obstructive jaundice [K83.1] 04/23/2023 Obesity due to excess calories [E66.09] 04/23/2023 Hypercholesterolemia [E78.00] 04/23/2023 HTN (hypertension) [I10] 04/23/2023 Diabetes mellitus type II, controlled (HCC) [E11.9] 04/23/2023 Chronic obstructive pulmonary disease (HCC) [J44.9] 04/23/2023 Chronic diastolic heart failure (HCC) [I50.32] 08/31/2021 Pulmonary hypertension (HCC) [I27.20] 08/19/2020 Coronary arteriosclerosis [I25.10] 08/19/2020 Pancreatic mass highly concerning for malignancy Lung nodules Renal nodule Abdominal pain BMI 38 Abnormal LFT/hyperbilirubinemia RECOMMENDATIONS: I reviewed the labs/imaging available to me,outside records and discussed with the patient.I explained to the patient the nature of this problem. I explained the significance of these abnormalities and possible etiology and management options Reviewed hospitalization course Reviewed procedure report. Overall picture highly concerning for malignancy. Follow-up on path report CA 19-9 significantly elevated concerning for more advanced disease Discussed with patient's daughter Jocelyn over the phone Discussed with internal medicine team Patient had an acute drop in hemoglobin. Workup for hemolysis negative. I am concerned about bleeding. Examination negative for internal bleeding. Patient having dark bowel movement recommend evaluation by GI for lower GI bleed. Plan for outpatient CT PET and if patient does not have advanced disease we will set up consultation with hepatobiliary surgery NALDO Monitor LFTs Transfuse to keep hemoglobin above 7 Symptomatic supportive care We will follow. Discussed with patient and Nurse. Thank you for asking us to see this patient. Karin Cronin MD This note is created with the assistance of a speech recognition program. While intending to generate a document that actually reflects the content of the visit, the document can still have some errors including those of syntax and sound a like substitutions which may escape proof reading. It such instances, actual meaning can be extrapolated by contextual diversion. Pt had a restless night. Pts output in purwick was 700mL, NS continues to run at 100mL. Vitals were stable, hgb post transfusion from day shift was 7.1, repeat 6 hr draw was 6.5, provider notified, orders to transfuse placed, post transfusion hgb was 7.8. Pt tolerated procedure well. Pt reported last bowel movement was early during day shift, she stated it was red in color. Advised pt to inform RN of next bowel movement. BS for evening was 284. Problem: Discharge Planning Goal: Discharge to home or other facility with appropriate resources Outcome: Progressing Discharge to home or other facility with appropriate resources: Identify barriers to discharge with patient and caregiver Arrange for needed discharge resources and transportation as appropriate Identify discharge learning needs (meds, wound care, etc) Problem: ABCDS Injury Assessment Goal: Absence of physical injury Outcome: Progressing Absence of Physical Injury: Implement safety measures based on patient assessment Problem: Skin/Tissue Integrity Goal: Absence of new skin breakdown Description: 1. Monitor for areas of redness and/or skin breakdown 2. Assess vascular access sites hourly 3. Every 4-6 hours minimum: Change oxygen saturation probe site 4. Every 4-6 hours: If on nasal continuous positive airway pressure, respiratory therapy assess nares and determine need for appliance change or resting period. Outcome: Progressing Problem: Chronic Conditions and Co-morbidities Goal: Patient's chronic conditions and co-morbidity symptoms are monitored and maintained or improved Outcome: Progressing Care Plan - Patient's Chronic Conditions and Co-Morbidity Symptoms are Monitored and Maintained or Improved: Monitor and assess patient's chronic conditions and comorbid symptoms for stability, deterioration, or improvement Collaborate with multidisciplinary team to address chronic and comorbid conditions and prevent exacerbation or deterioration Update acute care plan with appropriate goals if chronic or comorbid symptoms are exacerbated and prevent overall improvement and discharge Blood consent was confirmed Blood was dual signed per television script writer and an additional Fozia RN, Blood touched vein @ 1:15 Vitals stable. Vitals were taken within 30 minutes prior to blood administration and 15 minutes after start Patient was observed for first 15 minutes per television script writer No reaction noted. Will continue to monitor Occupational Therapy DATE: 04/26/2023 NAME: Karuna Nelson : 1960 Patient not seen this date for Occupational Therapy due to: [x] Cancel by RN or physician due to: AVRIL Hatfield reporting pt not medically appropriate for therapy this date. Reports pt w/ decline in status & drastic drop in HgB down to 5.6 this AM. OT will hold this date and ck back tomorrow as able. [] Hemodialysis [] Critical Lab Value Level [] Blood transfusion in progress [] Acute or unstable cardiovascular status _MAP < 55 or more than >115 _HR < 40 or > 130 [] Acute or unstable pulmonary status -FiO2 > 60% _RR < 5 or >40 _O2 sats < 85% [] Strict Bedrest [] Off Unit for surgery or procedure [] Off Unit for testing [] Pending imaging to R/O fracture [] Refusal by Patient [] Other [] OT being discontinued at this time. Patient independent. No further needs. [] OT being discontinued at this time as the patient has been transferred to hospice care. No further needs. Erica Funez OT SPIRITUAL CARE DEPARTMENT - [facility] PROGRESS NOTE Room # 1011/1011-02 Name: Karuna Nelson Mandaen: Yazidism: Mormon Reason for visit: Rounding I visited the patient. Admit Date & Time: 04/23/2023 1:18 PM Assessment: Karuna Nelson is a 62 y.o. female in the hospital because Obstructive jaundice. Upon entering the room The patient was sitting up in bed watching TV land (western). Intervention: I introduced myself and my title as tenoner operator I offered space for the patient to express feelings, needs, and concerns and provided a ministry presence. The Ronda, and patient had a wonderful talk about her growing up watching the western TV shows with her dad, and brothers, and sisters (6 of them) when Her mom was asleep. The patient also discussed her 3 children (2 daughters at least); her 9 grandchildren (ages 1 to 18), and the large community of neighbors at her, [facility] in [place], [place]. The patient mentioned that all of the above individuals were her support system and told her they will help her clean her house and cook for her when she is discharged and comes home. The patient became a little teary eyed over her recent diagnosis concerning having, Pancreatic Cancer Stage 2 . The Ronda quoted the scripture in Ephesians 3:20 concerning God being able to do exceedingly and abundantly all we can ask or think. The Gold Cutter prayed for the patients physical and emotional healing, and left a prayer card with a few scriptures written on it to encourage for latter (Ephesians 3:20, and [place]). Outcome: The patient was very encouraged, and thankful for the visit. Plan: Chaplains will remain available to offer spiritual and emotional support as needed. . Spiritual Care Department [facility] Physical Therapy DATE: 04/26/2023 NAME: Karuna Nelson : 1960 Patient not seen this date for Physical Therapy due to: [x] Cancel by RN or physician due to: AVRIL Hatfield reporting pt not medically appropriate for therapy this date. Reports pt w/ decline in status & drastic drop in HgB down to 5.6 this AM. PT will hold this date and ck back tomorrow as able. [] Hemodialysis [] Critical Lab Value Level [] Blood transfusion in progress [] Acute or unstable cardiovascular status _MAP < 55 or more than >115 _HR < 40 or > 130 [] Acute or unstable pulmonary status -FiO2 > 60% _RR < 5 or >40 _O2 sats < 85% [] Strict Bedrest [] Off Unit for surgery or procedure [] Off Unit for testing [] Pending imaging to R/O fracture [] Refusal by Patient [] Other [] PT being discontinued at this time. Patient independent. No further needs. [] PT being discontinued at this time as the patient has been transferred to hospice care. No further needs. Beth Keenan, PT Images from the original note were not included. [facility] Office: [phone] Kevin Floyd DO, Aniket Malik DO, Denton Herrmann DO, Luc Tony DO, Lubna Muñiz MD, Barbara Mari MD, Hussain Peraza MD, Alejandra Jacobsen MD, Buck Mcgee MD, Sapna Charles MD, Max Hill MD, Marlys Beckett DO, Jeromy Samson MD, Kavon Romero MD, Reid Floyd DO, Karuna Cochran MD, Michael Peterson DO, Stefanie Reynolds MD, Sadia Bazan MD, Lyn Singh MD, Shailesh Miranda MD, John Watkins MD, Cheng Montenegro MD, Tiffanie Hernandez MD, Yong Garrido MD, Simone Cunha MD, Doretha Pringle MD, Malik Carmona DO, Floyd Hardy DO, Ivan Perez MD, Latrell Barrientos MD, Anny Garcia CNP, Mini Monson CNP, Teodoro Farley CNP, Meeta Mejia, ABHINAV, Darlene Mcnair CNP, Piedad Perez CNP, Jocelyn Guerrero CNP, Alicia Lugo RADIO MECHANIC HELPER, Christal Rosa, RADIO MECHANIC HELPER, Savana Brewster, PAAntonioC, Bettina Dominguez, PAAntonioC, Jayna Brewster, RADIO MECHANIC HELPER, Leticia Ortiz, BINDERY OPERATOR, Eliza Wong, RADIO MECHANIC HELPER, Willow Garduno, RADIO MECHANIC HELPER, Arabella Wood, RADIO MECHANIC HELPER [facility] IN-PATIENT SERVICE [facility] Progress Note 04/26/2023 9:41 AM Name: Karuna Nelson Acct: [id number] Room: 1011/1011-02 Day: 3 Admit Date: 04/23/2023 1:18 PM PCP: Esau Riddle MD Code Status: Full Code Subjective: C/C: Abdominal pain with jaundice Interval History Status: not changed. ERCP/EUS concerning for pancreatic adenocarcinoma. Multiple biopsies collected. Today patient is hyperkalemic, sharp drop in hemoglobin, concern for hemolysis. Consult heme-onc, notify GI. Brief History: 04/23 - Patient reports that over the past 2 weeks she has had significant epigastric discomfort after mealtimes. Over the past 48 hours she is having inability to eat or drink anything without severe nausea and vomiting. She reported to a local emergency department where lab work and imaging is consistent with obstructive jaundice. Patient is sent to this facility for MRCP and GI consultation. At the time my exam patient is resting in bed. She is jaundiced and is clearly uncomfortable. She advised she has been unable to eat or drink anything for several days. She reports that the pain is in her right upper quadrant radiating to her flank and is significantly worse after she consumes any meals. 04/24 - 04/25 - No change in condition. MRI results reviewed and concerning for pancreatic mass. ERCP planned for 04/25. 04/26 -hyperkalemic, sharp drop in hemoglobin, concern for hemolysis. Consult heme-onc, notify GI. Review of Systems: Review of Systems Constitutional: Positive for activity change and appetite change. Negative for chills, fatigue and fever. HENT: Negative for sinus pressure and sinus pain. Eyes: Negative for photophobia and visual disturbance. Respiratory: Negative for cough, shortness of breath and wheezing. Cardiovascular: Negative. Negative for chest pain, palpitations and leg swelling. Gastrointestinal: Positive for abdominal distention, abdominal pain, nausea and vomiting. Negative for constipation and diarrhea. Endocrine: Negative for cold intolerance, heat intolerance and polyuria. Genitourinary: Negative for difficulty urinating and urgency. Musculoskeletal: Negative for arthralgias and myalgias. Skin: Positive for color change. Negative for wound. Neurological: Negative for dizziness, syncope, weakness and light-headedness. Hematological: Negative for adenopathy. Does not bruise/bleed easily. Psychiatric/Behavioral: Negative for agitation and confusion. The patient is not nervous/anxious. Medications: Allergies: Allergies Allergen Reactions Albuterol Palpitations Patient states feels as if she is having a heart attack. Sulfa Antibiotics Shortness Of Breath and Angioedema Severe swelling Current Meds: Scheduled Meds: insulin regular 10 Units IntraVENous Once And dextrose bolus 250 mL IntraVENous Once sodium bicarbonate 50 mEq IntraVENous Once furosemide 40 mg IntraVENous Once pantoprazole 40 mg Oral BID AC sodium chloride 100 mL IntraVENous Once insulin lispro 0-8 Units SubCUTAneous TID WC insulin lispro 0-4 Units SubCUTAneous Nightly sodium chloride flush 10 mL IntraVENous Once sodium chloride flush 5-40 mL IntraVENous 2 times per day enoxaparin 40 mg SubCUTAneous Daily piperacillin-tazobactam 3,375 mg IntraVENous Q8H Continuous Infusions: sodium chloride dextrose sodium chloride 100 mL/hr at 04/25/231912 dextrose sodium chloride PRN Meds: sodium chloride, glucose, dextrose bolus OR dextrose bolus, glucagon (rDNA), dextrose, glucose, dextrose bolus OR dextrose bolus, glucagon (rDNA), dextrose, sodium chloride flush, sodium chloride, potassium chloride OR potassium alternative oral replacement OR potassium chloride, magnesium sulfate, acetaminophen OR acetaminophen, polyethylene glycol, promethazine OR ondansetron, morphine Data: Past Medical History: has a past medical history of Chronic diastolic heart failure (HCC), Chronic obstructive pulmonary disease (HCC), Coronary arteriosclerosis, Diabetes mellitus type II, controlled (HCC), HTN (hypertension), Hypercholesterolemia, Obesity due to excess calories, Obstructive jaundice, and Pulmonary hypertension (HCC). Social History: reports that she has been smoking cigarettes. She has never used smokeless tobacco. She reports that she does not currently use alcohol. She reports that she does not currently use drugs. Family History: Family History Problem Relation Age of Onset COPD Mother Heart Disease Mother Cancer Father Heart Attack Father Cancer Sister Vitals: BP (!) 145/51 Pulse 75 Temp 98.1 F (36.7 C) (Oral) Resp 17 Ht 1.575 m (5' 2.01 ) Wt 96.2 kg (212 lb 1.3 oz) SpO2 94% BMI 38.78 kg/m Temp (24hrs), Av.6 F (36.4 C), Min:97.2 F (36.2 C), Max:98.1 F (36.7 C) Recent Labs 04/24/23 1709 04/25/23 17504/25/23 1845 04/26/23 0726 POCGLU 307* 362* 305* 361* I/O (24Hr): Intake/Output Summary (Last 24 hours) at 04/26/2023 0941 Last data filed at 04/25/2023 1845 Gross per 24 hour Intake 1131.61 ml Output 725 ml Net 406.61 ml Labs: Hematology: Recent Labs 04/24/23 0504/26/23 0855 WBC 9.2 11.2 RBC 3.28* 2.03* HGB 8.9* 5.6* HCT 28.3* 17.9* MCV 86.3 88.2 MCH 27.1 27.6 MCHC 31.4 31.3 RDW 19.1* 19.8* PLT 305 274 MPV 11.5 11.3 Chemistry: Recent Labs 04/23/23 1350 04/24/23 0510 04/26/23 0809 NA -- 130* 130* K -- 5.2 5.9* CL -- 105 103 CO2 -- 15* 15* GLUCOSE -- 334* 374* BUN 43* 31* 33* CREATININE 0.7 0.8 0.9 MG -- 1.9 -- ANIONGAP -- 10 12 LABGLOM >60 >60 >60 CALCIUM -- 8.7 8.2* PHOS -- 2.4* -- Recent Labs 04/24/23 0510 04/24/23 0753 04/24/23 1205 04/24/23 1709 04/25/23 1757 04/25/23 1845 04/26/23 0726 04/26/23 0809 PROT 6.1* -- -- -- -- -- -- 5.7* LABALBU 3.0* -- -- -- -- -- -- 2.8* AST 56* -- -- -- -- -- -- 47* ALT 88* -- -- -- -- -- -- 61* ALKPHOS 801* -- -- -- -- -- -- 628* BILITOT 6.3* -- -- -- -- -- -- 2.7* LIPASE 238* -- -- -- -- -- -- 531* POCGLU -- 330* 341* 307* 362* 305* 361* -- ABG:No results found for: POCPH , PHART , PH , POCPCO2 , PFW5LKW , PCO2 , POCPO2 , PO2ART , PO2 , POCHCO3 , TCJ5DFV , HCO3 , NBEA , PBEA , BEART , BE , THGBART , THB , FYU1CAL , FDEQ7VFL , J4VEKYED , O2SAT , FIO2 No results found for: SPECIAL No results found for: CULTURE Radiology: MRI ABDOMEN W WO CONTRAST MRCP Result Date: 04/24/2023 1. Subtle focal area of hypoenhancement and increased T2 signal within the pancreatic head measuring approximately 2.8 x 2.1 cm extending predominantly within the pancreaticoduodenal groove. There is associated restricted diffusion. There is moderate intra and extrahepatic biliary duct dilation with severe narrowing versus termination near the level of the pancreatic head near the masslike area. Findings are concerning for underlying pancreatic head neoplasm. Recommend further evaluation with ERCP/EUS. 2. Distended gallbladder with mild wall thickening and gallbladder sludge. No definite cholelithiasis. Findings are nonspecific for acute cholecystitis. 3. 6 mm left lower lobe pulmonary nodule. Recommend further evaluation with chest CT. US GALLBLADDER RUQ Result Date: 04/24/2023 [ 1. Dilated common duct up to 16 mm; no intrahepatic biliary ductal dilation appreciated. Normal sonographic appearance of the gallbladder. Patient reports some pain/tenderness over the region of the gallbladder/common duct. Recommend further evaluation with MRCP or ERCP. 2. Suboptimal visualization of the liver secondary to overlying structures. Physical Examination: Physical Exam Constitutional: Appearance: She is obese. HENT: Head: Normocephalic and atraumatic. Mouth/Throat: Mouth: Mucous membranes are dry. Eyes: Extraocular Movements: Extraocular movements intact. Pupils: Pupils are equal, round, and reactive to light. Cardiovascular: Rate and Rhythm: Normal rate. Pulses: Normal pulses. Heart sounds: Normal heart sounds. Pulmonary: Effort: Pulmonary effort is normal. No respiratory distress. Breath sounds: Normal breath sounds. Abdominal: General: Abdomen is flat. Bowel sounds are normal. There is distension. Palpations: Abdomen is soft. Musculoskeletal: General: No swelling or deformity. Normal range of motion. Skin: General: Skin is warm and dry. Capillary Refill: Capillary refill takes 2 to 3 seconds. Coloration: Skin is not pale. Comments: Jaundiced Neurological: General: No focal deficit present. Mental Status: She is alert and oriented to person, place, and time. Psychiatric: Mood and Affect: Mood normal. Behavior: Behavior normal. Assessment: Hospital Problems Last Modified POA * (Principal) Obstructive jaundice 04/23/2023 Yes Chronic diastolic heart failure (HCC) 04/23/2023 Yes Chronic obstructive pulmonary disease (HCC) 04/23/2023 Yes HTN (hypertension) 04/23/2023 Yes Pulmonary hypertension (HCC) 04/23/2023 Yes Overview Signed 04/23/2023 3:38 PM by Teodoro Farley APRN - NP moderate per cath 08/07/2020 Obesity due to excess calories 04/23/2023 Yes Hypercholesterolemia 04/23/2023 Yes Diabetes mellitus type II, controlled (HCC) 04/23/2023 Yes Coronary arteriosclerosis 04/23/2023 Yes Overview Signed 04/23/2023 3:38 PM by Teodroo Farley APRN - NP mild per cath 08/07/2020 Plan: Obstructive jaundice with right upper quadrant abdominal pain IV hydration GI on board, follow biopsies CT chest abdomen pelvis results reviewed and available for staging Plan for oncology evaluation Acute anemia of uncertain etiology Initiate hemolysis workup Type cross and transfuse 1 unit now Consult hematology/oncology Chronic diastolic heart failure without exacerbation with a known history of hypertension with hyperlipidemia and a history of CAD Continue Lipitor, Lasix, metoprolol, spironolactone, lisinopril once no longer n.p.o. Labetalol as needed IV Type 2 diabetes on long-term insulin Corrective sliding scale insulin for now Restart Lantus 20 twice daily after no longer n.p.o. Restart glipizide metformin once no longer n.p.o. CHACHO Camacho NP 04/26/2023 9:41 AM Patient transferred back from PACU post-EGD Vitals stable Re-oriented to room Occupational Therapy Facility/Department: [facility] Occupational Therapy Initial Assessment Name: Karuna Nelson : 1960 Date of Service: 04/25/2023 AVRIL Hatfield reports patient is medically stable for therapy treatment this date. Chart reviewed prior to treatment and patient is agreeable for therapy. All lines intact and patient positioned comfortably at end of treatment. All patient needs addressed prior to ending therapy session. Discharge Recommendations: Patient would benefit from continued therapy after discharge OT Equipment Recommendations Equipment Needed: (CTA) Per H&P: Karuna Nelson is a 62 y.o. Non- / non female who presents with No chief complaint on file. and is admitted to the hospital for the management of Obstructive jaundice. Patient reports that over the past 2 weeks she has had significant epigastric discomfort after mealtimes. Over the past 48 hours she is having inability to eat or drink anything without severe nausea and vomiting. She reported to a local emergency department where lab work and imaging is consistent with obstructive jaundice. Patient is sent to this facility for MRCP and GI consultation. Patient Diagnosis(es): There were no encounter diagnoses. Past Medical History: has a past medical history of Chronic diastolic heart failure (HCC), Chronic obstructive pulmonary disease (HCC), Coronary arteriosclerosis, Diabetes mellitus type II, controlled (HCC), HTN (hypertension), Hypercholesterolemia, Obesity due to excess calories, Obstructive jaundice, and Pulmonary hypertension (HCC). Past Surgical History: has no past surgical history on file. Assessment Performance deficits / Impairments: Decreased functional mobility ;Decreased ADL status;Decreased endurance;Decreased high-level IADLs;Decreased strength;Decreased balance;Decreased safe awareness Assessment: Pt presents with deficits in functional mobility and ADL performance secondary to generalized weakness, abdominal pain, decreased functional activity tolerance, and lightheadedness/dizziness with position changes. Pt will require reassessment of ADL transfers and functional mobility tasks as tolerated, as pt was lightheaded when sitting at EOB & BP found to be 132/32. Skilled OT services are indicated at this time to maximize this pt's safety and IND with self care tasks and to facilitate safe return to PLOF as able. Prognosis: Fair;Good Decision Making: Medium Complexity REQUIRES OT FOLLOW-UP: Yes Activity Tolerance Activity Tolerance: Patient limited by pain;Treatment limited secondary to medical complications (free text) Activity Tolerance Comments: Overall, Poor tolerance for activity this session; pt limited by lightheadedness and BP ck'd when seated at EOB and found to be 132/32 (MAP 55). Pt returned to supine & reporting symptoms resolved. Plan Occupational Therapy Plan Times Per Week: 4-5x/week 1x/day as tolerated Current Treatment Recommendations: Strengthening, Balance training, Functional mobility training, Endurance training, Safety education & training, Patient/Caregiver education & training, Self-Care / ADL, Equipment evaluation, education, & procurement Restrictions Restrictions/Precautions Restrictions/Precautions: General Precautions, Fall Risk, Contact Precautions Required Braces or Orthoses?: No Position Activity Restriction Other position/activity restrictions: Up w/ assist, LUE IV Subjective General Chart Reviewed: Yes Patient assessed for rehabilitation services?: Yes Family / Caregiver Present: No Subjective Subjective: Pt in bed upon entry to room, eye closed but easily arousable. Pt appears uncomfortable in bed and reported she had felt lightheaded earlier today with nursing staff. Pt agreeable to participation in therapy evaluation. Social/Functional History Social/Functional History Lives With: Alone Type of Home: Senior housing apartment Home Layout: One level Home Access: Level entry Bathroom Shower/Tub: Tub/Shower unit Bathroom Toilet: Standard Bathroom Equipment: Grab bars in shower, Shower chair (reports vanity is close to toilet for support) Home Equipment: Rollator Has the patient had two or more falls in the past year or any fall with injury in the past year?: Yes (Pt reports 1 fall within the past year; states she was lightheaded and next thing she knew she was on the floor) Receives Help From: Family (pt reports many family members are local and supportive) ADL Assistance: Independent Homemaking Assistance: Independent Homemaking Responsibilities: Yes (daughter has only been assisting recently since L 1st toe amp) Ambulation Assistance: Independent (no AD at baseline) Transfer Assistance: Independent Active Diversified Crops Supervisor: No Patient's Diversified Crops Supervisor Info: family Occupation: Retired Type of Occupation: [employer] Leisure & Hobbies: 9 grandchildren Additional Comments: Pt has been wearing boot on L foot since L 1st toe amp ~3 weeks ago (different facility) Objective Observation/Palpation Posture: Fair Observation: Jaundice; dry flaky skin; R 1st toe amp; BMI > 38; pt feeling lightheaded upon sitting at EOB - BP assessed & found to be 132/32 (MAP 55). Pt assisted back to supine at this time & reporting lightheadedness resolved Safety Devices Type of Devices: Bed alarm in place;Call light within reach;Left in bed;Nurse notified Restraints Restraints Initially in Place: No Bed Mobility Training Bed Mobility Training: Yes Overall Level of Assistance: Minimum assistance;Assist X1 (Pt completed sup<>sit transfers w/ Ghulam and extended time this session; limited by abdominal pain & generalized weakness. Pt cued for use of bedrail and line awareness, all to increase overall safety. Pt lightheaded once seated at EOB - see ADL section.) Interventions: Safety awareness training;Tactile cues;Verbal cues Supine to Sit: Minimum assistance;Assist X1 Sit to Supine: Minimum assistance;Assist X1 Balance Sitting: High guard (SBA while seated at EOB; pt tolerated x 6 minutes, needed to return to supine d/t hypotension & persistent lightheadedness.) Transfer Training Transfer Training: No AROM: Within functional limits Strength: Generally decreased, functional (BUE ~4/5) Coordination: Within functional limits Tone: Normal Sensation: Intact (Pt denies any lightheadedness/dizziness or neuropathy during session) ADL Feeding: Setup;Independent Feeding Skilled Clinical Factors: NPO at time of eval in prep for ERCP; hand to mouth motion intact Grooming: Stand by assistance;Setup (Seated position) UE Bathing: Minimal assistance;Setup LE Bathing: Moderate assistance;Maximum assistance;Setup UE Dressing: Moderate assistance UE Dressing Skilled Clinical Factors: For gown mgnt during session for increased modesty LE Dressing: Maximum assistance Toileting: Maximum assistance Functional Mobility: Unable to assess(comment) Functional Mobility Skilled Clinical Factors: Unable to assess this session, pt persistently lightheaded/dizzy seated at EOB. BP assessed after ~4 minutes of sitting and found to be 132/32 (MAP 55) - pt assisted back to supine at this time & pt reporting symptoms resolved when laying flat. Additional ADL Comments: Pt's ADL performance limited at this time by abdominal pain, decreased functional activity tolerance and hypotension/lightheadedness when seated at EOB. Pt will require reassessment of functional transfers & mobility tasks when tolerated, as pt was lightheadedness/dizzy seated at EOB. Vision Vision: Impaired Vision Exceptions: Wears glasses for reading Hearing Hearing: Within functional limits Cognition Overall Cognitive Status: Exceptions Arousal/Alertness: Appropriate responses to stimuli Following Commands: Follows multistep commands with increased time Attention Span: Appears intact Memory: Appears intact Problem Solving: Decreased awareness of errors;Assistance required to identify errors made;Assistance required to correct errors made Insights: Decreased awareness of deficits Initiation: Does not require cues Sequencing: Requires cues for some Orientation Overall Orientation Status: Within Functional Limits Education Given To: Patient Education Provided: Role of Therapy;Plan of Care;Energy Conservation;Fall Prevention Strategies;Precautions Education Method: Verbal Barriers to Learning: None Education Outcome: Continued education needed;Verbalized understanding AM-[facility] - ADL AM-[facility] Daily Activity - Inpatient How much help is needed for putting on and taking off regular lower body clothing?: A Lot How much help is needed for bathing (which includes washing, rinsing, drying)?: A Lot How much help is needed for toileting (which includes using toilet, bedpan, or urinal)?: A Lot How much help is needed for putting on and taking off regular upper body clothing?: A Little How much help is needed for taking care of personal grooming?: A Little How much help for eating meals?: None AM-[facility] Inpatient Daily Activity Raw Score: 16 AM-[facility] Inpatient ADL T-Scale Score : 35.96 ADL Inpatient [facility] 0-100% Score: 53.32 ADL Inpatient [facility] G-Code Modifier : CK Goals Short Term Goals Time Frame for Short Term Goals: By discharge, pt to demo: Short Term Goal 1: bed mobility tasks to SBA with Good safety and without use of bedrails. Short Term Goal 2: tolerance for reassessment of ADL transfers and mobility tasks in order to add goal to OT POC as appropriate. Short Term Goal 3: UB ADLs to SBA and LB ADLs to MinAX1 with Good safety and use of AD/AE as needed. Short Term Goal 4: tolieting tasks to MinAx1 with Good safety and use of AD/grab bars/BSC as needed. Short Term Goal 5: increased BUE strength by 1/2 grade to promote functional strength/ROM required for increased safety/IND with self care tasks. [facility] Recruiting Coordinator Goals Prison Goal 1: Pt to be IND with pressure relief tech, fall prevention strategies, EC/WS tech, potential equipment/discharge recommendations, and a BUE HEP with use of handouts as needed. Patient Goals Patient goals : To go home! Therapy Time Individual Concurrent Group Co-treatment Time In 1127 (+10 mins for chart review & RN coordination) Time Out 1152 Minutes 25+10=35 Tx Time: 12 minutes Erica Funez OT [facility] CARE DEPARTMENT [facility] PROGRESS NOTE Room # 1016/1016-02 Name: Karuna Nelson Reason for visit: Routine I visited the patient. Admit Date & Time: 04/23/2023 1:18 PM Assessment: Karuna Nelson is a 62 y.o. female. Gold Cutter consult, PT: declines .Upon entering the room patient states well, states no major needs or prayers. Patient was passive, quite. PT: declines Spiritual Care visit. Gold Cutter leaves prayer card for patient for possible follow up as needed. Intervention: Gold Cutter provided a ministry presence. Outcome: Patient has no response Plan: Chaplains will remain available to offer spiritual and emotional support as needed. . Spiritual Care Department [facility] 04/25/23 1155 Encounter Summary Service Provided For: Patient Referral/Consult From: Nurse;Rounding Support System Unknown Last Encounter 04/25/23 Complexity of Encounter Low Begin Time 1107 End Time 1109 Total Time Calculated 2 min Assessment/Intervention/Outcome Assessment Unable to assess Intervention Sustaining Presence/Ministry of presence Outcome Refused/Declined Physical Therapy Facility/Department: [facility] Physical Therapy Initial Assessment Name: Karuna Nelson : 1960 Date of Service: 04/25/2023 AVRIL Hatfield reports patient is medically stable for therapy treatment this date. Chart reviewed prior to treatment and patient is agreeable for therapy. All lines intact and patient positioned comfortably at end of treatment. All patient needs addressed prior to ending therapy session. Discharge Recommendations: Patient would benefit from continued therapy after discharge Per H&P: Karuna Nelson is a 62 y.o. Non- / non female who presents with No chief complaint on file. and is admitted to the hospital for the management of Obstructive jaundice. Patient reports that over the past 2 weeks she has had significant epigastric discomfort after mealtimes. Over the past 48 hours she is having inability to eat or drink anything without severe nausea and vomiting. She reported to a local emergency department where lab work and imaging is consistent with obstructive jaundice. Patient is sent to this facility for MRCP and GI consultation. Patient Diagnosis(es): There were no encounter diagnoses. Past Medical History: has a past medical history of Chronic diastolic heart failure (HCC), Chronic obstructive pulmonary disease (HCC), Coronary arteriosclerosis, Diabetes mellitus type II, controlled (HCC), HTN (hypertension), Hypercholesterolemia, Obesity due to excess calories, Obstructive jaundice, and Pulmonary hypertension (HCC). Past Surgical History: has no past surgical history on file. Assessment Body Structures, Functions, Activity Limitations Requiring Skilled Therapeutic Intervention: Decreased functional mobility ;Decreased strength;Decreased safe awareness;Decreased endurance;Decreased high-level IADLs;Increased pain Assessment: Pt tolerated PT eval fair. Activity significantly limited by lightheadedness this date. Pt presenting w/ deficits in strength, mobility, and endurance. Pt would benefit from continued skilled PT to address deficits in order to maximize independence w/ functional mobility and return to PLOF as able. Therapy Prognosis: Good Decision Making: Medium Complexity Requires PT Follow-Up: Yes Activity Tolerance Activity Tolerance: Treatment limited secondary to medical complications Activity Tolerance Comments: Limited d/t lightheadedness & low diastolic BP and MAP. Plan Physical Therapy Plan General Plan: 5-7 times per week Current Treatment Recommendations: Strengthening, ROM, Balance training, Functional mobility training, Safety education & training, Patient/Caregiver education & training, Home exercise program, Endurance training, Neuromuscular re-education, Therapeutic activities (until reassess) Safety Devices Type of Devices: Bed alarm in place, Call light within reach, Left in bed, Nurse notified Restraints Restraints Initially in Place: No Restrictions Restrictions/Precautions Restrictions/Precautions: General Precautions, Fall Risk, Contact Precautions Required Braces or Orthoses?: No Position Activity Restriction Other position/activity restrictions: Up w/ assist, LUE IV Subjective General Patient assessed for rehabilitation services?: Yes Response To Previous Treatment: Not applicable Family / Caregiver Present: No Follows Commands: Within Functional Limits General Comment Comments: RN and pt agreeable to therapy. Pt supine in bed upon arrival. Pt requiring encouragement throughout. Subjective Subjective: Pt reporting feeling not great at time of PT eval. Social/Functional History Social/Functional History Lives With: Alone Type of Home: Senior housing apartment Home Layout: One level Home Access: Level entry Bathroom Shower/Tub: Tub/Shower unit Bathroom Toilet: Standard Bathroom Equipment: Grab bars in shower, Shower chair (reports vanity is close to toilet for support) Home Equipment: Rollator Has the patient had two or more falls in the past year or any fall with injury in the past year?: Yes (Pt reports 1 fall within the past year; states she was lightheaded and next thing she knew she was on the floor) Receives Help From: Family (pt reports many family members are local and supportive) ADL Assistance: Independent Homemaking Assistance: Independent Homemaking Responsibilities: Yes (daughter has only been assisting recently since L 1st toe amp) Ambulation Assistance: Independent (no AD at baseline) Transfer Assistance: Independent Active Diversified Crops Supervisor: No Patient's Diversified Crops Supervisor Info: family Occupation: Retired Type of Occupation: [employer] Leisure & Hobbies: 9 grandchildren Additional Comments: Pt has been wearing boot on L foot since L 1st toe amp ~3 weeks ago (different facility) Vision/Hearing Vision Vision: Impaired Vision Exceptions: Wears glasses for reading Hearing Hearing: Within functional limits Cognition Orientation Overall Orientation Status: Within Functional Limits Cognition Overall Cognitive Status: Exceptions Arousal/Alertness: Appropriate responses to stimuli Following Commands: Follows multistep commands with increased time Attention Span: Appears intact Memory: Appears intact Problem Solving: Decreased awareness of errors;Assistance required to identify errors made;Assistance required to correct errors made Insights: Decreased awareness of deficits Initiation: Does not require cues Sequencing: Requires cues for some Objective Observation/Palpation Posture: Fair (sitting EOB) Observation: jaundice; dry flaky skin; R 1st toe amp; BMI > 38 Gross Assessment Sensation: Intact (denies numbness/tingling) AROM RLE (degrees) RLE AROM: WFL AROM LLE (degrees) LLE AROM : WFL AROM RUE (degrees) RUE AROM : WFL AROM LUE (degrees) LUE AROM : WFL Strength RLE Strength RLE: Exception Comment: Grossly 3+ to 4-/5 Strength LLE Strength LLE: Exception Comment: Grossly 3+ to 4-/5 Strength RUE Comment: See OT assessment for detail Strength LUE Comment: See OT assessment for detail Bed mobility Supine to Sit: Minimal assistance Sit to Supine: Minimal assistance Scooting: Minimal assistance Bed Mobility Comments: Pt w/o significant difficulty throughout bed mobility this date however requiring increased time and effort to perform tasks throughout. Pt w/ heavy reliance on bedrails for UE assist. Upon sitting at EOB, pt reporting significant lightheadedness which was not subsiding. Pt's BP checked and was 132/32 mmHg (map 55). Pt reporting lightheadedness continuing and stating I just feel like I'm going to pass out. Pt assisted back to supine where lightheadedness subsided after ~1-2 minutes. Assist required for safe line mgmt throughout. Transfers Comment: Not assessed this date d/t lightheadedness & low diastolic BP & MAP this date. See bed mobility section for details. PT will continue to progress mobility as safe and able throughout admission. Balance Posture: Fair Sitting - Static: Good;- Sitting - Dynamic: Good;- Comments: SUSSY standing balance this date AM-PAC - Mobility AM-PAC Basic Mobility - Inpatient AM-[facility] Inpatient Mobility Raw Score : 14 AM-PAC Inpatient T-Scale Score : 38.1 Mobility Inpatient CMS 0-100% Score: 61.29 Mobility Inpatient [facility] G-Code Modifier : CL Goals Short Term Goals Time Frame for Short Term Goals: 12 visits Short Term Goal 1: Pt to demonstrate bed mobility independently Short Term Goal 2: Pt to actively participate in at least 30 minutes of physical therapy for ther act & ther ex Short Term Goal 3: Pt to be indep w/ pressure relief techniques in order to maintain skin integrity and prevent pressure injuries Short Term Goal 4: Reassess transfers & ambulation next visit as able; update goals & POC Patient Goals Patient Goals : To feel better, to go home Education Patient Education Education Given To: Patient Education Provided: Role of Therapy;Plan of Care Education Provided Comments: Pt educated on: purpose of acute PT eval, importance of continued mobility throughout admission, general safety awareness, and PT POC. Pt w/ fair return demo. Pt would benefit from continued reinforcement of education. Education Method: Verbal Education Outcome: Verbalized understanding;Continued education needed Therapy Time Individual Concurrent Group Co-treatment Time In 1118 Time Out 1143 Minutes 25+10 = 35 total Additional 10 minutes added for chart review and RN communication Treatment time: 10 minutes Beth Keenan PT Images from the original note were not included. [facility] Office: [phone] Kevin Floyd DO, Aniket Malik DO, Denton Herrmann DO, Luc Tony DO, Lubna Muñiz MD, Barbara Mari MD, Hussain Peraza MD, Alejandra Jacobsen MD, Buck Mcgee MD, Sapna Charles MD, Max Hill MD, Marlys Beckett DO, Jeromy Samson MD, Kavon Romero MD, Reid Floyd DO, Karuna Cochran MD, Michael Peterson DO, Stefanie Reynolds MD, Sadia Bazan MD, Lyn Singh MD, Shailesh Miranda MD, John Watkins MD, Cheng Montenegro MD, Tiffanie Hernandez MD, Yong Garrido MD, Simone Cunha MD, Doretha Pringle MD, Malik Carmona DO, Floyd Hardy DO, Ivan Perez MD, Latrell Barrientos MD, Anny Garcia CNP, Mini Monson CNP, Teodoro Farley CNP, Meeta Mejia DNP, Darlene Mcnair CNP, Piedad Perez CNP, Jocelyn Guerrero CNP, Alicia Lugo, RADIO MECHANIC HELPER, Christal Rosa, RADIO MECHANIC HELPER, Savana Brewster, PAAntonioC, Bettina Dominguez PAAntonioC, Jayna Brewster RADIO MECHANIC HELPER, Leticia Ortiz, BINDERY OPERATOR, Eliza Wong CNP, Willow Garduno CNP, Arabella Wood CNP [facility] IN-PATIENT SERVICE [facility] Progress Note 04/25/2023 10:29 AM Name: Karuna Nelson Acct: [id number] Room: 1016/1016-02 IP Day: 2 Admit Date: 04/23/2023 1:18 PM PCP: Esau Riddle MD Code Status: Full Code Subjective: C/C: Abdominal pain with jaundice Interval History Status: not changed. Plan for ERCP today. Outpatient follow-up with oncology will likely be required. Brief History: 04/23 - Patient reports that over the past 2 weeks she has had significant epigastric discomfort after mealtimes. Over the past 48 hours she is having inability to eat or drink anything without severe nausea and vomiting. She reported to a local emergency department where lab work and imaging is consistent with obstructive jaundice. Patient is sent to this facility for MRCP and GI consultation. At the time my exam patient is resting in bed. She is jaundiced and is clearly uncomfortable. She advised she has been unable to eat or drink anything for several days. She reports that the pain is in her right upper quadrant radiating to her flank and is significantly worse after she consumes any meals. 04/24 - 04/25 - No change in condition. MRI results reviewed and concerning for pancreatic mass. ERCP planned for 04/25. Review of Systems: Review of Systems Constitutional: Positive for activity change and appetite change. Negative for chills, fatigue and fever. HENT: Negative for sinus pressure and sinus pain. Eyes: Negative for photophobia and visual disturbance. Respiratory: Negative for cough, shortness of breath and wheezing. Cardiovascular: Negative. Negative for chest pain, palpitations and leg swelling. Gastrointestinal: Positive for abdominal distention, abdominal pain, nausea and vomiting. Negative for constipation and diarrhea. Endocrine: Negative for cold intolerance, heat intolerance and polyuria. Genitourinary: Negative for difficulty urinating and urgency. Musculoskeletal: Negative for arthralgias and myalgias. Skin: Positive for color change. Negative for wound. Neurological: Negative for dizziness, syncope, weakness and light-headedness. Hematological: Negative for adenopathy. Does not bruise/bleed easily. Psychiatric/Behavioral: Negative for agitation and confusion. The patient is not nervous/anxious. Medications: Allergies: Allergies Allergen Reactions Albuterol Palpitations Patient states feels as if she is having a heart attack. Sulfa Antibiotics Shortness Of Breath and Angioedema Severe swelling Current Meds: Scheduled Meds: sodium chloride 100 mL IntraVENous Once insulin lispro 0-8 Units SubCUTAneous TID WC insulin lispro 0-4 Units SubCUTAneous Nightly sodium chloride flush 10 mL IntraVENous Once sodium chloride flush 5-40 mL IntraVENous 2 times per day enoxaparin 40 mg SubCUTAneous Daily piperacillin-tazobactam 3,375 mg IntraVENous Q8H Continuous Infusions: sodium chloride Stopped (04/24/23 1245) dextrose sodium chloride PRN Meds: glucose, dextrose bolus OR dextrose bolus, glucagon (rDNA), dextrose, sodium chloride flush, sodium chloride, potassium chloride OR potassium alternative oral replacement OR potassium chloride, magnesium sulfate, acetaminophen OR acetaminophen, polyethylene glycol, promethazine OR ondansetron, morphine Data: Past Medical History: has a past medical history of Chronic diastolic heart failure (HCC), Chronic obstructive pulmonary disease (HCC), Coronary arteriosclerosis, Diabetes mellitus type II, controlled (HCC), HTN (hypertension), Hypercholesterolemia, Obesity due to excess calories, Obstructive jaundice, and Pulmonary hypertension (HCC). Social History: reports that she has been smoking cigarettes. She has never used smokeless tobacco. She reports that she does not currently use alcohol. She reports that she does not currently use drugs. Family History: Family History Problem Relation Age of Onset COPD Mother Heart Disease Mother Cancer Father Heart Attack Father Cancer Sister Vitals: BP (!) 141/57 Pulse 99 Temp 98.4 F (36.9 C) (Oral) Resp 18 Ht 1.575 m (5' 2.01 ) Wt 96.2 kg (212 lb 1.3 oz) SpO2 98% BMI 38.78 kg/m Temp (24hrs), Av.9 F (36.6 C), Min:97.3 F (36.3 C), Max:98.4 F (36.9 C) Recent Labs 04/24/23 0753 04/24/23 1205 04/24/23 1709 POCGLU 330* 341* 307* I/O (24Hr): Intake/Output Summary (Last 24 hours) at 04/25/2023 1029 Last data filed at 04/25/2023 0851 Gross per 24 hour Intake 1437.27 ml Output 1350 ml Net 87.27 ml Labs: Hematology: Recent Labs 04/24/23 0510 WBC 9.2 RBC 3.28* HGB 8.9* HCT 28.3* MCV 86.3 MCH 27.1 MCHC 31.4 RDW 19.1* PLT 305 MPV 11.5 Chemistry: Recent Labs 04/23/23 1350 04/24/23 0510 NA -- 130* K -- 5.2 CL -- 105 CO2 -- 15* GLUCOSE -- 334* BUN 43* 31* CREATININE 0.7 0.8 MG -- 1.9 ANIONGAP -- 10 LABGLOM >60 >60 CALCIUM -- 8.7 PHOS -- 2.4* Recent Labs 04/24/23 0510 04/24/23 0753 04/24/23 1205 04/24/23 1709 PROT 6.1* -- -- -- LABALBU 3.0* -- -- -- AST 56* -- -- -- ALT 88* -- -- -- ALKPHOS 801* -- -- -- BILITOT 6.3* -- -- -- LIPASE 238* -- -- -- POCGLU -- 330* 341* 307* ABG:No results found for: POCPH , PHART , PH , POCPCO2 , NTA9BNY , PCO2 , POCPO2 , PO2ART , PO2 , POCHCO3 , UIA1FAD , HCO3 , NBEA , PBEA , BEART , BE , THGBART , THB , XLL8ZQX , ZFBM4IBR , W3TLMIBH , O2SAT , FIO2 No results found for: SPECIAL No results found for: CULTURE Radiology: MRI ABDOMEN W WO CONTRAST MRCP Result Date: 04/24/2023 1. Subtle focal area of hypoenhancement and increased T2 signal within the pancreatic head measuring approximately 2.8 x 2.1 cm extending predominantly within the pancreaticoduodenal groove. There is associated restricted diffusion. There is moderate intra and extrahepatic biliary duct dilation with severe narrowing versus termination near the level of the pancreatic head near the masslike area. Findings are concerning for underlying pancreatic head neoplasm. Recommend further evaluation with ERCP/EUS. 2. Distended gallbladder with mild wall thickening and gallbladder sludge. No definite cholelithiasis. Findings are nonspecific for acute cholecystitis. 3. 6 mm left lower lobe pulmonary nodule. Recommend further evaluation with chest CT. US GALLBLADDER RUQ Result Date: 04/24/2023 [ 1. Dilated common duct up to 16 mm; no intrahepatic biliary ductal dilation appreciated. Normal sonographic appearance of the gallbladder. Patient reports some pain/tenderness over the region of the gallbladder/common duct. Recommend further evaluation with MRCP or ERCP. 2. Suboptimal visualization of the liver secondary to overlying structures. Physical Examination: Physical Exam Constitutional: Appearance: She is obese. HENT: Head: Normocephalic and atraumatic. Mouth/Throat: Mouth: Mucous membranes are dry. Eyes: Extraocular Movements: Extraocular movements intact. Pupils: Pupils are equal, round, and reactive to light. Cardiovascular: Rate and Rhythm: Normal rate. Pulses: Normal pulses. Heart sounds: Normal heart sounds. Pulmonary: Effort: Pulmonary effort is normal. No respiratory distress. Breath sounds: Normal breath sounds. Abdominal: General: Abdomen is flat. Bowel sounds are normal. There is distension. Palpations: Abdomen is soft. Musculoskeletal: General: No swelling or deformity. Normal range of motion. Skin: General: Skin is warm and dry. Capillary Refill: Capillary refill takes 2 to 3 seconds. Coloration: Skin is not pale. Comments: Jaundiced Neurological: General: No focal deficit present. Mental Status: She is alert and oriented to person, place, and time. Psychiatric: Mood and Affect: Mood normal. Behavior: Behavior normal. Assessment: Hospital Problems Last Modified POA * (Principal) Obstructive jaundice 04/23/2023 Yes Chronic diastolic heart failure (HCC) 04/23/2023 Yes Chronic obstructive pulmonary disease (HCC) 04/23/2023 Yes HTN (hypertension) 04/23/2023 Yes Pulmonary hypertension (HCC) 04/23/2023 Yes Overview Signed 04/23/2023 3:38 PM by Teodoro Farley APRN - NP moderate per cath 08/07/2020 Obesity due to excess calories 04/23/2023 Yes Hypercholesterolemia 04/23/2023 Yes Diabetes mellitus type II, controlled (HCC) 04/23/2023 Yes Coronary arteriosclerosis 04/23/2023 Yes Overview Signed 04/23/2023 3:38 PM by Teodoro Farley APRN - NP mild per cath 08/07/2020 Plan: Obstructive jaundice with right upper quadrant abdominal pain IV hydration, IV Zosyn, pain control as needed Consult GI and anticipate ERCP versus EUS on 04/25 CT chest abdomen pelvis results reviewed and available for staging Plan for oncology evaluation following ERCP versus outpatient Chronic diastolic heart failure without exacerbation with a known history of hypertension with hyperlipidemia and a history of CAD Continue Lipitor, Lasix, metoprolol, spironolactone, lisinopril once no longer n.p.o. Labetalol as needed IV Type 2 diabetes on long-term insulin Corrective sliding scale insulin for now Restart Lantus 20 twice daily after no longer n.p.o. Restart glipizide metformin once no longer n.p.o. CHACHO Camacho NP 04/25/2023 10:29 AM Images from the original note were not included. [facility] Office: [phone] Kevin Floyd DO, Aniket Malik DO, Denton Herrmann DO, Luc Tony DO, Lubna Muñiz MD, Barbara Mari MD, Hussain Peraza MD, Alejandra Jacobsen MD, Buck Mcgee MD, Sapna Charles MD, Max Hill MD, Marlys Beckett DO, Jeromy Samson MD, Kavon Romero MD, Reid Floyd DO, Karuna Cochran MD, Michael Peterson DO, Stefanie Reynolds MD, Sadia Bazan MD, Lyn Singh MD, Shailesh Miranda MD, John Watkins MD, Cheng Montenegro MD, Tiffanie Hernandez MD, Yong Garrido MD, Simone Cunha MD, Doretha Pringle MD, Malik Carmona DO, Floyd Hardy DO, Ivan Perez MD, Latrell Barrientos MD, Anny Garcia, CELSO, Mini Monson, CELSO, Teodoro Farley, CELSO, Meeta Mejia, ABHINAV, Darlene Mcnair, CELSO, Piedad Perez, CELSO, Jocelyn Guerrero, RADIO MECHANIC HELPER, Alicia Lugo, RADIO MECHANIC HELPER, Christal Rosa, RADIO MECHANIC HELPER, Savana Brewster, PA-C, Bettina Dominguez, PA-C, Jayna Brewster, CELSO, Leticia Ortiz, BINDERY OPERATOR, Eliza Wong, CELSO, Willow Garduno, CELSO, Arabella Wood, CELSO [facility] IN-PATIENT SERVICE [facility] Progress Note 04/24/2023 1:36 PM Name: Karuna Nelson Acct: [id number] Room: 1016/1016-02 Day: 1 Admit Date: 04/23/2023 1:18 PM PCP: Esau Riddle MD Code Status: Full Code Subjective: C/C: Abdominal pain with jaundice Interval History Status: not changed. No change in condition. MRI results reviewed and concerning for pancreatic mass. Request GI involvement for further interventions to alleviate her symptoms. CT chest abdomen and pelvis pending Brief History: 04/23 - Patient reports that over the past 2 weeks she has had significant epigastric discomfort after mealtimes. Over the past 48 hours she is having inability to eat or drink anything without severe nausea and vomiting. She reported to a local emergency department where lab work and imaging is consistent with obstructive jaundice. Patient is sent to this facility for MRCP and GI consultation. At the time my exam patient is resting in bed. She is jaundiced and is clearly uncomfortable. She advised she has been unable to eat or drink anything for several days. She reports that the pain is in her right upper quadrant radiating to her flank and is significantly worse after she consumes any meals. 04/24 - No change in condition. MRI results reviewed and concerning for pancreatic mass. Request GI involvement for further interventions to alleviate her symptoms. CT chest abdomen and pelvis pending Review of Systems: Review of Systems Constitutional: Positive for activity change and appetite change. Negative for chills, fatigue and fever. HENT: Negative for sinus pressure and sinus pain. Eyes: Negative for photophobia and visual disturbance. Respiratory: Negative for cough, shortness of breath and wheezing. Cardiovascular: Negative. Negative for chest pain, palpitations and leg swelling. Gastrointestinal: Positive for abdominal distention, abdominal pain, nausea and vomiting. Negative for constipation and diarrhea. Endocrine: Negative for cold intolerance, heat intolerance and polyuria. Genitourinary: Negative for difficulty urinating and urgency. Musculoskeletal: Negative for arthralgias and myalgias. Skin: Positive for color change. Negative for wound. Neurological: Negative for dizziness, syncope, weakness and light-headedness. Hematological: Negative for adenopathy. Does not bruise/bleed easily. Psychiatric/Behavioral: Negative for agitation and confusion. The patient is not nervous/anxious. Medications: Allergies: Allergies Allergen Reactions Albuterol Palpitations Patient states feels as if she is having a heart attack. Sulfa Antibiotics Shortness Of Breath and Angioedema Severe swelling Current Meds: Scheduled Meds: sodium chloride 100 mL IntraVENous Once insulin lispro 0-8 Units SubCUTAneous TID WC insulin lispro 0-4 Units SubCUTAneous Nightly sodium chloride flush 5-40 mL IntraVENous 2 times per day enoxaparin 40 mg SubCUTAneous Daily piperacillin-tazobactam 3,375 mg IntraVENous Q8H Continuous Infusions: sodium chloride 100 mL/hr at 04/24/23 1240 dextrose sodium chloride PRN Meds: glucose, dextrose bolus OR dextrose bolus, glucagon (rDNA), dextrose, sodium chloride flush, sodium chloride, potassium chloride OR potassium alternative oral replacement OR potassium chloride, magnesium sulfate, acetaminophen OR acetaminophen, polyethylene glycol, promethazine OR ondansetron, morphine Data: Past Medical History: has a past medical history of Chronic diastolic heart failure (HCC), Chronic obstructive pulmonary disease (HCC), Coronary arteriosclerosis, Diabetes mellitus type II, controlled (HCC), HTN (hypertension), Hypercholesterolemia, Obesity due to excess calories, Obstructive jaundice, and Pulmonary hypertension (HCC). Social History: reports that she has been smoking cigarettes. She has never used smokeless tobacco. She reports that she does not currently use alcohol. She reports that she does not currently use drugs. Family History: Family History Problem Relation Age of Onset COPD Mother Heart Disease Mother Cancer Father Heart Attack Father Cancer Sister Vitals: BP (!) 132/53 Pulse 79 Temp 98.1 F (36.7 C) (Oral) Resp 16 Ht 1.575 m (5' 2.01 ) Wt 96.2 kg (212 lb 1.3 oz) SpO2 98% BMI 38.78 kg/m Temp (24hrs), Av.8 F (36.6 C), Min:97.2 F (36.2 C), Max:98.1 F (36.7 C) Recent Labs 04/24/23 0753 04/24/23 1205 POCGLU 330* 341* I/O (24Hr): Intake/Output Summary (Last 24 hours) at 04/24/2023 1336 Last data filed at 04/24/2023 0458 Gross per 24 hour Intake 1920.24 ml Output 1650 ml Net 270.24 ml Labs: Hematology: Recent Labs 04/24/23 0510 WBC 9.2 RBC 3.28* HGB 8.9* HCT 28.3* MCV 86.3 MCH 27.1 MCHC 31.4 RDW 19.1* PLT 305 MPV 11.5 Chemistry: Recent Labs 04/23/23 1350 04/24/23 0510 NA -- 130* K -- 5.2 CL -- 105 CO2 -- 15* GLUCOSE -- 334* BUN 43* 31* CREATININE 0.7 0.8 MG -- 1.9 ANIONGAP -- 10 LABGLOM >60 >60 CALCIUM -- 8.7 PHOS -- 2.4* Recent Labs 04/24/23 0510 04/24/23 0753 04/24/23 1205 PROT 6.1* -- -- LABALBU 3.0* -- -- AST 56* -- -- ALT 88* -- -- ALKPHOS 801* -- -- BILITOT 6.3* -- -- LIPASE 238* -- -- POCGLU -- 330* 341* ABG:No results found for: POCPH , PHART , PH , POCPCO2 , EFT9JUL , PCO2 , POCPO2 , PO2ART , PO2 , POCHCO3 , RLU4DPY , HCO3 , NBEA , PBEA , BEART , BE , THGBART , THB , CET2OEK , CTLW5HNJ , P5IRBYPH , O2SAT , FIO2 No results found for: SPECIAL No results found for: CULTURE Radiology: MRI ABDOMEN W WO CONTRAST MRCP Result Date: 04/24/2023 1. Subtle focal area of hypoenhancement and increased T2 signal within the pancreatic head measuring approximately 2.8 x 2.1 cm extending predominantly within the pancreaticoduodenal groove. There is associated restricted diffusion. There is moderate intra and extrahepatic biliary duct dilation with severe narrowing versus termination near the level of the pancreatic head near the masslike area. Findings are concerning for underlying pancreatic head neoplasm. Recommend further evaluation with ERCP/EUS. 2. Distended gallbladder with mild wall thickening and gallbladder sludge. No definite cholelithiasis. Findings are nonspecific for acute cholecystitis. 3. 6 mm left lower lobe pulmonary nodule. Recommend further evaluation with chest CT. US GALLBLADDER RUQ Result Date: 04/24/2023 [ 1. Dilated common duct up to 16 mm; no intrahepatic biliary ductal dilation appreciated. Normal sonographic appearance of the gallbladder. Patient reports some pain/tenderness over the region of the gallbladder/common duct. Recommend further evaluation with MRCP or ERCP. 2. Suboptimal visualization of the liver secondary to overlying structures. Physical Examination: Physical Exam Constitutional: Appearance: She is obese. HENT: Head: Normocephalic and atraumatic. Mouth/Throat: Mouth: Mucous membranes are dry. Eyes: Extraocular Movements: Extraocular movements intact. Pupils: Pupils are equal, round, and reactive to light. Cardiovascular: Rate and Rhythm: Normal rate. Pulses: Normal pulses. Heart sounds: Normal heart sounds. Pulmonary: Effort: Pulmonary effort is normal. No respiratory distress. Breath sounds: Normal breath sounds. Abdominal: General: Abdomen is flat. Bowel sounds are normal. There is distension. Palpations: Abdomen is soft. Musculoskeletal: General: No swelling or deformity. Normal range of motion. Skin: General: Skin is warm and dry. Capillary Refill: Capillary refill takes 2 to 3 seconds. Coloration: Skin is not pale. Comments: Jaundiced Neurological: General: No focal deficit present. Mental Status: She is alert and oriented to person, place, and time. Psychiatric: Mood and Affect: Mood normal. Behavior: Behavior normal. Assessment: Hospital Problems Last Modified POA * (Principal) Obstructive jaundice 04/23/2023 Yes Chronic diastolic heart failure (HCC) 04/23/2023 Yes Chronic obstructive pulmonary disease (HCC) 04/23/2023 Yes HTN (hypertension) 04/23/2023 Yes Pulmonary hypertension (HCC) 04/23/2023 Yes Overview Signed 04/23/2023 3:38 PM by Teodoro Farley APRN - NP moderate per cath 08/07/2020 Obesity due to excess calories 04/23/2023 Yes Hypercholesterolemia 04/23/2023 Yes Diabetes mellitus type II, controlled (HCC) 04/23/2023 Yes Coronary arteriosclerosis 04/23/2023 Yes Overview Signed 04/23/2023 3:38 PM by Teodoro Farley APRN - NP mild per cath 08/07/2020 Plan: Obstructive jaundice with right upper quadrant abdominal pain IV hydration, IV Zosyn, pain control as needed Right upper quadrant ultrasound, MRCP concerning for pancreatic mass Consult GI and anticipate ERCP versus EUS CT chest abdomen pelvis Chronic diastolic heart failure without exacerbation with a known history of hypertension with hyperlipidemia and a history of CAD Continue Lipitor, Lasix, metoprolol, spironolactone, lisinopril once no longer n.p.o. Labetalol as needed IV Type 2 diabetes on long-term insulin Corrective sliding scale insulin for now Restart Lantus 20 twice daily after no longer n.p.o. Restart glipizide metformin once no longer n.p.o. CHACHO Camacho NP 04/24/2023 1:36 PM Patient with elevated BG (330) fluids running at 125, D5 0.45% NaCl with 20 KCl. Perfect serve sent to Edwar Farley NP. See orders. Gallbladder ultrasound results reviewed waiting on MRI to result. Patient c/o of nausea prn Zofran given. Patient resting eyes closed. Patient has been NPO since midnight for MRCP & gallbladder ultrasound. Patient received scheduled IV Zosyn. [id number] colored urine through [employer]. Denies flank pain throughout shift. Side raised x2 raised for patient safety. Will monitor. Patient arrived in room 1016 from [facility]. Vital signs and assessment obtained. Patient A&O x 4. Patient currently denies pain. GI notified of new consult via perfect serve. Will continue to monitor patient closely. documented in this encounter [facility] 04-18-2023 Evaluation note Encounter Date Diagnosis Assessment Notes Apr, Peripheral artery disease (ICD-10 - I73.9) Apr, Other Peripheral arterial occlusive disease Based on her current history and exam she is doing quite well. We will see her back in 3 months with ankle-brachial indices at that time. She may return sooner should her wounds deteriorate in any way. [employer] Other 12-15-2023 Progress note Author Reyes Hamilton [facility] March 18, 2023 2:34am Note Date/Time March 17, 2023 12:08pm [facility] [address] [place] [address] Hospitalist Progress Note Signed Patient: Karuna Nelson MR#: [id number] : 1960 Acct:[id number] Age/Sex: 62 / F Adm Date: 3 Loc: 4N Room: 8A5649-4 Type: DIS IN Attending Dr: Luc Vargas MD Copies to: ~ Date of Service: 03/17/2023 Subjective Subjective Narrative: Seen and examined at bedside, no acute events overnight. Sitting up having her lunch, reporting minimal pain and was ambulating in room earlier with no issues. Continues to be on room air, with oxygen saturations above 90%. No fever, chills Exam Physical Exam Vital Signs: Temp Pulse Resp BP Pulse Ox O2 Del Method O2 Flow Rate 98.0 F 61 18 129/68 93 L Room Air 2 03/17/23 11:04 03/17/23 11:04 03/17/23 11:04 03/17/23 11:04 03/17/23 11:04 03/17/23 11:04 03/17/23 08:00 Narrative: CONST-morbid obese, comfortable, cooperative CARDIAC-normal rate, regular rhythm, normal S1 & S2. PULM-diminished without wheeze or rhonchi, RA, no accessory muscle use or cough noted ABD - Soft. Bowel sounds are normal. Obese no tenderness EXTREM-no edema BLE calves nontender SKIN-dressing intact to left foot and negative pressure dressing intact to left groin Objective Lab Results 03/17/23 05:12 03/17/23 05:12 Meds Allergies and Active Meds Allergies Sulfa (Sulfonamide Antibiotics) Allergy (Verified 03/16/23 11:08) Hives Active Meds: Active Medications Generic Name Dose Route Start Last Admin Trade Name Freq PRN Reason Stop Dose Admin Aspirin 81 mg 03/17/23 09:00 03/17/23 08:10 Aspirin 81 Mg Tablet.Dr PO 03/16/24 08:59 81 mg DAILY EMILIE Administration Atorvastatin Calcium 20 mg 03/17/23 09:00 03/17/23 08:10 Atorvastatin 20 Mg Tablet PO 03/16/24 08:59 20 mg DAILY EMILIE Administration Clopidogrel Bisulfate 75 mg 03/17/23 09:00 03/17/23 08:11 Clopidogrel Bisulfate 75 Mg Tablet PO 03/16/24 08:59 75 mg DAILY EMILIE Administration Dextrose 0 gm 03/16/23 19:12 Dextrose 50% In Water 25 Gm/50 Ml Syringe IV-PUSH 03/15/24 19:11 PRN PRN Hypoglycemia Docusate Sodium 100 mg 03/16/23 21:00 03/17/23 08:11 Docusate 100 Mg Capsule PO 03/15/24 20:59 100 mg BID EMILIE Administration Furosemide 40 mg 03/17/23 09:00 03/17/23 08:11 Furosemide 40 Mg Tablet PO 03/16/24 08:59 40 mg DAILY EMILIE Administration Glipizide 10 mg 03/17/23 08:00 03/17/23 08:11 Glipizide 5 Mg Tablet PO 03/16/24 07:59 10 mg BID.WITH.MEALS EMILIE Administration Glucose 0 gm 03/16/23 19:12 Dextrose 40% Gel 15 Gm Tube PO 03/15/24 19:11 PRN PRN Hypoglycemia Hydromorphone HCl 1 mg 03/16/23 16:14 Hydromorphone 0.5 Mg/0.5 Ml Syringe IV-PUSH Q4H PRN Pain Scale 4 - 7 Sodium Chloride 1,000 mls @ 100 mls/hr 03/16/23 16:30 03/17/23 10:32 0.9% Sodium Chloride 1,000 Ml IV 03/15/24 16:29 Not Given .Q10H EMILIE Insulin Aspart 0 units 03/16/23 22:00 03/17/23 11:45 Insulin Aspart 300 Units/3 Ml Insuln.Pen SUBCUT 03/15/24 21:59 3 units TID.WM.HS EMILIE Administration Protocol Insulin Glargine 20 units 03/17/23 21:00 Insulin Glargine 300 Units/3 Ml Insuln.Pen SUBCUT 03/16/24 20:59 BID EMILIE Lisinopril 30 mg 03/17/23 09:00 03/17/23 08:11 Lisinopril 10 Mg Tablet PO 03/16/24 08:59 30 mg DAILY EMILIE Administration Metformin HCl 500 mg 03/18/23 17:00 Metformin 500 Mg Tablet PO 03/17/24 16:59 BID.WITH.MEALS [facility] Metoprolol Tartrate 100 mg 03/16/23 21:00 03/17/23 08:11 Metoprolol Tartrate 100 Mg Tablet PO 03/15/24 20:59 100 mg BID EMILIE Administration Non-Formulary Medication 0.75 mg 03/23/23 09:00 Dulaglutide [Trulicity] SUBCUT 03/22/24 08:59 QWEEK [facility] Ondansetron HCl 4 mg 03/16/23 16:19 Ondansetron 4 Mg/2 Ml Vial IV-PUSH 03/15/24 16:18 Q6H PRN Nausea And Vomiting Oxycodone HCl 5 mg 03/16/23 16:14 Oxycodone Ir 5 Mg Tablet PO Q4HR PRN Pain Scale 1 - 5 Sodium Chloride 0 ml 03/16/23 09:53 Sodium Chloride 0.9 % 10 Ml Syringe IV-PUSH 03/15/24 09:52 PRN PRN Flush Spironolactone 50 mg 03/17/23 09:00 03/17/23 08:11 Spironolactone 50 Mg Tablet PO 03/16/24 08:59 50 mg DAILY EMILIE Administration A&P - Hospitalist Assessment/Plan (1) Type 2 diabetes mellitus: (2) Peripheral vascular occlusive disease: Plan 1.Type 2 diabetes ? Continue Accu-Cheks before meals and at bedtime, long-acting insulin, SSI, hypoglycemic protocol. 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 Left lower extremity arteriogram primary balloon angioplasty left common iliac artery ?Continue plan of care per vascular ?Continue pain management as needed Chronic conditions: 1.History of CVA? on aspirin and Plavix 2.Hyperlipidemia? on atorvastatin 3.History of congestive heart failure?on metoprolol and spironolactone Attending Physician Attestation: I agree with the findings and plan as documented in this note and have edited it if needed to reflect my findings and plan. Reyes Hamilton MD Documented By: Eliza Pichardo APRN 03/17/23 1207 Signed By: <Electronically signed by CHACHO Pichardo> 03/17/23 1415 <Electronically signed by Reyes Hamilton MD> 03/18/23 3304 [facility] Work Phone: [phone] 638-181012-15-2023 Consult note Author Reyes Hamilton [facility] March 17, 2023 2:47am Note Date/Time March 16, 2023 6:49pm [facility] [address] [place] [address] Hospitalist Consult Note Signed Patient: Karuna Nelson MR#: [id number] : 1960 Acct:[id number] Age/Sex: 62 / F Adm Date: 3 Loc: Room: [address] [place] [address] Type: ADM IN Attending Dr: Luc Vargas MD Copies to: Luc L BuehrerMD Eliza APRN Marwan Wassouf, MD Samuel E Ross MD~ HPI DATE OF CONSULTATION: 03/16/23 REQUESTING PROVIDER: Luc Vargas Consult Narrative Reason for Consult: Type 2 diabetes HPI: Mr. Yolanda Nelson is a 62-year-old female with a past medical history of type 2 diabetes, hypertension, hyperlipidemia who underwent open endarterectomy of leftcommon femoral artery, left lower extremity angiogram primary balloon angioplasty of the left common iliac artery secondary to peripheral vascular occlusive disease with gangrene left foot by Dr. Vargas today. The hospitalistteam has been consulted for medical management of diabetes. Patient seen and examined, drowsy but easily arousable, on 2 L of oxygen with saturations above 90%. Denying pain from the left foot and groin. Denies chest pain or palpitation. No cough or pain with inspiration. No abdominal pain or indigestion, constipation or diarrhea, nausea or vomiting. No dysuria or retention. No headache or dizziness. No fevers Review of Systems Review of Systems Review of systems: 10 point review of systems obtained, negative unless noted in the HPI below [facility] Medical History Carotid stenosis CHF (congestive heart failure) CVA (cerebral vascular accident) Diabetes Hypertension Smoker TIA (transient ischemic attack) Surgical History History of cardiac catheterization Family History Sister Lung cancer Sister Renal cancer Brother Diabetes mellitus, type 2 Father Myocardial infarction Mother Emphysema lung Social History Smoking Status: Current every day smoker Tobacco Type: cigarettes Substance Use Type: None Meds Medications and Allergies Allergies Sulfa (Sulfonamide Antibiotics) Allergy (Verified 03/16/23 11:08) Hives Home Medications aspirin 81 mg tablet,delayed release 81 mg PO DAILY 03/01/23 [History Confirmed 03/16/23] atorvastatin 20 mg tablet 20 mg PO DAILY 03/01/23 [History Confirmed 03/16/23] clopidogrel 75 mg tablet 75 mg PO DAILY 03/01/23 [History Confirmed 03/16/23] dulaglutide 0.75 mg/0.5 mL subcutaneous [facility] 0.75 mg subcut QWEEK 03/01/23 [History Confirmed 03/16/23] furosemide 40 mg tablet 40 mg PO DAILY 03/01/23 [History Confirmed 03/16/23] glipizide 10 mg tablet 10 mg PO BID 03/01/23 [History Confirmed 03/16/23] insulin glargine 100 unit/mL (3 mL) subcutaneous pen (Lantus Solostar U-100 Insulin) 20 unit subcut BID 03/01/23 [History Confirmed 03/16/23] lisinopril 30 mg tablet 30 mg PO DAILY 03/01/23 [History Confirmed 03/16/23] metformin 500 mg tablet,extended release 24 hr 500 mg PO BID 03/01/23 [History Confirmed 03/16/23] metoprolol tartrate 100 mg tablet 100 mg PO BID 03/01/23 [History Confirmed 03/16/23] mupirocin 2 % topical ointment applic topical 03/01/23 [History] spironolactone 50 mg tablet 50 mg PO DAILY 03/01/23 [History Confirmed 03/16/23] Active Medications: Active Medications Generic Name Dose Route Start Last Admin Trade Name Freq PRN Reason Stop Dose Admin Aspirin 81 mg 03/17/23 09:00 Aspirin 81 Mg Tablet.Dr PO 03/16/24 08:59 DAILY [facility] Atorvastatin Calcium 20 mg 03/17/23 09:00 Atorvastatin 20 Mg Tablet PO 03/16/24 08:59 DAILY [facility] Clopidogrel Bisulfate 75 mg 03/17/23 09:00 Clopidogrel Bisulfate 75 Mg Tablet PO 03/16/24 08:59 DAILY [facility] Docusate Sodium 100 mg 03/16/23 21:00 Docusate 100 Mg Capsule PO 03/15/24 20:59 BID EMILIE Furosemide 40 mg 03/17/23 09:00 Furosemide 40 Mg Tablet PO 03/16/24 08:59 DAILY EMILIE Glipizide 10 mg 03/17/23 08:00 Glipizide 5 Mg Tablet PO 03/16/24 07:59 BID.WITH.MEALS EMILIE Hydromorphone HCl 1 mg 03/16/23 16:14 Hydromorphone 0.5 Mg/0.5 Ml Syringe IV-PUSH Q4H PRN Pain Scale 4 - 7 Lactated Ringer's 1,000 mls @ 20 mls/hr 03/16/23 10:00 03/16/23 16:53 Lactated Ringers IV 03/17/23 09:59 20 mls/hr .Q24H ONE Infusion Lactated Ringer's 1,000 mls @ 20 mls/hr 03/16/23 10:30 03/16/23 17:46 Lactated Ringers IV 03/17/23 10:29 Not Given .Q24H ONE Sodium Chloride 1,000 mls @ 100 mls/hr 03/16/23 16:30 03/16/23 17:57 0.9% Sodium Chloride 1,000 Ml IV 03/15/24 16:29 100 mls/hr .Q10H EMILIE Administration Vancomycin HCl 1 gm in 250 mls @ 250 mls/hr 03/17/23 00:30 Vancomycin IV 03/17/23 01:29 Q12H [facility] Insulin Glargine 20 units 03/16/23 21:00 Insulin Glargine 300 Units/3 Ml Insuln.Pen SUBCUT 03/15/24 20:59 BID [facility] Lisinopril 30 mg 03/17/23 09:00 Lisinopril 10 Mg Tablet PO 03/16/24 08:59 DAILY [facility] Metformin HCl 500 mg 03/18/23 17:00 Metformin 500 Mg Tablet PO 03/17/24 16:59 BID.WITH.MEALS [facility] Metoprolol Tartrate 100 mg 03/16/23 21:00 Metoprolol Tartrate 100 Mg Tablet PO 03/15/24 20:59 BID [facility] Non-Formulary Medication 0.75 mg 03/23/23 09:00 Dulaglutide [Trulicity] SUBCUT 03/22/24 08:59 QWEEK [facility] Ondansetron HCl 4 mg 03/16/23 16:19 Ondansetron 4 Mg/2 Ml Vial IV-PUSH 03/15/24 16:18 Q6H PRN Nausea And Vomiting Oxycodone HCl 5 mg 03/16/23 16:14 Oxycodone Ir 5 Mg Tablet PO Q4HR PRN Pain Scale 1 - 5 Sodium Chloride 0 ml 03/16/23 09:53 Sodium Chloride 0.9 % 10 Ml Syringe IV-PUSH 03/15/24 09:52 PRN PRN Flush Spironolactone 50 mg 03/17/23 09:00 Spironolactone 50 Mg Tablet PO 03/16/24 08:59 DAILY EMILIE Exam Physical Exam Vital Signs: Temp Pulse Resp BP Pulse Ox O2 Del Method O2 Flow Rate 97.6 F 68 16 138/67 95 Nasal Cannula 4 03/16/23 17:55 03/16/23 17:55 03/16/23 17:55 03/16/23 17:55 03/16/23 17:55 03/16/23 17:55 03/16/23 17:55 Narrative: CONST-obese, comfortable, cooperative HEAD - Normocephalic and atraumatic EENT-Sclera nonicteric and conjunctive are nonerythemic, moist oral mucosa, pharynx clear NECK-Supple, no cervical lymphadenopathy CARDIAC-normal rate, regular rhythm, normal S1 & S2. PULM-diminished without wheeze or rhonchi, RA, no accessory muscle use or cough noted ABD - Soft. Bowel sounds are normal. Obese no tenderness EXTREM-no edema BLE calves nontender SKIN-dressing intact to left foot and negative pressure dressing intact to left groin MS- MAEX4 spontaneously with equal with equal strength NEURO- A&Ox3 speech clear and tongue midline, equal facial symmetry no focal motor deficits PSYCH-Mood, affect and behavior appropriate Results Lab Results Labs: Laboratory Results - last 72 hr 03/16/23 16:48: POC Glucose 201 03/16/23 11:36: Blood Type Recheck B Positive 03/16/23 10:45: POC Glucose 167 03/16/23 10:35: PHA Creatinine Clear 73.00, Sodium 141, Potassium 4.3, Chloride 108 H, Carbon Dioxide 25.8, Anion Gap 11.5, BUN 32 H, Creatinine 0.86, Est GFR (CKD- EPI) > 60.0, Glucose 158 H, Calcium 9.2 03/16/23 10:35: Corrected WBC 11.0, Uncorrected WBC Count 11.0, RBC 4.40, Hgb 12.0, Hct 36.5, MCV 82.8, MCH 27.3, MCHC 33.0, RDW 17.2 H, Plt Count 354, MPV 8.6, Neut % (Auto) 73.3, Lymph % (Auto) 17.5, Menard % (Auto) 5.8, Eos % (Auto) 2.3, Baso % (Auto) 1.1, Nucleat RBC Rel Count 0.0, Neut # (Auto) 8.1 H, Lymph # (Auto) 1.9, Menard # (Auto) 0.6, Eos # (Auto) 0.3, Baso # (Auto) 0.1 03/16/23 10:01: Blood Type B Positive, Antibody Screen Negative Assessment & Plan Assessment/Plan (1) Type 2 diabetes mellitus: (2) Peripheral vascular occlusive disease: Plan 1.Type 2 diabetes ?Start Accu-Cheks before meals and at bedtime, long-acting insulin, SSI, hypoglycemic protocol. Will hold home glipizide metformin and glipizide ?Check A1c, continue to monitor 2.History of CVA?continue aspirin and Plavix 3.Hyperlipidemia?continue atorvastatin 4.History of congestive heart failure?on metoprolol and spironolactone Peripheral vascular occlusive disease with left foot gangrene ?Status post open enterectomy left common femoral artery. Left lower extremity arteriogram primary balloon angioplasty left common iliac artery ?Continue plan of care per vascular ?Continue pain management as needed Attending Physician Attestation: I agree with the findings and plan as documented in this note and have edited it if needed to reflect my findings and plan. Reyes Hamilton MD Documented By: Eliza Pichardo APRN 03/16/231841 Signed By: <Electronically signed by CHACHO Pichardo> 03/16/231925 <Electronically signed by Reyes Hamilton MD> 03/17/23 024 [facility] Work Phone: 1([phone]) 471-222211-14-2023 Evaluation note* Encounter Date Diagnosis Assessment Notes Treatment Notes Treatment Clinical Notes Feb, Peripheral arterial disease (ICD-10 - I73.9) Feb, Gangrene of toe of left foot (ICD-10 - I96) 14 Nov, 2023 Pain in unspecified foot (ICD-10 - M79.673) Feb, Other disorder of circulatory system (ICD-10 - I99.8) Feb, Other Peripheral vascular occlusive disease with gangrene left first toe She will undergo diagnostic arteriogram. We will plan a right femoral approach so that hopefully we can intervene on that day for limb salvage. She understands the nature of this is for critical limb ischemia with limb threat and for relief of her rest pain. She is aware she needs to discontinue smoking. She will continue her other medical therapy. [employer] Other 10-26-2023 NoteMicrobiology PROCEDURE: Wound Culture [R1] SOURCE: Abscess BODY SITE: Toe COLLECTED DATE/TIME: 01/24/2023 09:30 EDT RECEIVED DATE/TIME: 01/24/2023 20:13 EDT START DATE/TIME: 01/24/2023 20:13 EDT FREE TEXT SOURCE: Left Great Toe Emely LUX, Cole Minaya DPM, Cole Begum FINAL REPORTS Final Report [] Verified Date/Time: 01/26/2023 10:23 EDT 2+ Staphylococcus epidermidis STAINS Gram Stain Report [] Verified Date/Time: 01/25/2023 11:53 EDT Occasional White Blood Cells 1+ Gram Positive Cocci SUSCEPTIBILITY RESULTS LEGEND: S=Susceptible, N/R=Not Reported, Blank=Data not available, or drug not advisable or tested, I=Intermediate, ESBL=Extended spectrum beta-lactamase, R=Resistant, TFG=Thymidine-dependent strain, FOREST=Beta-lactamase positive, FERNIE=mcg/m;(mg/L), S*=Predicted susceptible interp, R*=Predicted resistant interp Staepi Antibiotic FERNIE Dilutn FERNIE Interp Amoxicillin/ >4/2 R Clavulanate Ampicillin >8 R Ampicillin/ <=8/4 R Sulbactam Azithromycin >4 R Cefazolin <=8 R Ciprofloxacin <=1 S Clindamycin >2 R Daptomycin <=1 S Erythromycin >4 R Gentamicin <=4 S Levofloxacin <=1 S Linezolid <=2 S Nitrofurantoin <=32 Oxacillin >2 R Penicillin >8 R Rifampin <=1 S Tetracycline <=4 S Trimethoprim/ >2/38 R Sulfa Vancomycin 2 S Performing Locations R1: This test was performed at: [facility], [address] [place] [address], [id number] , , [facility]-FairhillComment on above:Performed By: #### [id number] ####[address] [id number] Hospital Discharge instructions Follow Up Care 01/13/2023 13:19:06 With:Esau Riddle Address: [facility] [place] [address]- Business (2) When:1 to 2 days [facility]03-27-2023 Evaluation note* Encounter Date Diagnosis Assessment Notes Treatment Notes Treatment Clinical Notes Jun, Left carotid artery stenosis (ICD-10 - I65.22) Jun, Other Carotid stenosi s This patient has a moderately severe left internal carotid artery stenosis. She has no symptoms at this time and is on good medical therapy. She is progressing toward smoking cessation. We will continue to follow her every 6 months with repeat ultrasound examination. [employer] Other 07-26-2022 Evaluation note* Encounter Date Diagnosis Assessment Notes Treatment Notes Treatment Clinical Notes Oct, Carotid stenosis, left (ICD-10 - I65.22) Oct, Other Carotid stenosi s At this juncture it does not appear that she has a surgical level of carotid occlusive disease. She is on good medical therapy and has not had recurrent hemispheric symptoms. She knows that she should discontinue smoking. We will see her back in 6 months with repeat carotid duplex examination. [employer] Other Evaluation + Plan note Future Appointments Appointment Date:01/16/2023 01:00:00 PM Scheduled Provider:Esau Riddle MD Location:[facility] Appointment Type: Open Appointment Date:01/19/2023 02:15:00 PM Scheduled Provider:Felix Jolly MD Location:[facility] Appointment Type:Cardiology Follow Up (FT) Future Scheduled Tests Radiology* NM Myocardial Spect Rest/Stress 1 Day 12/08/22 * Echo Transthoracic [facility]08/22 [facility] Future Appointments Appointment Date:03/21/2023 03:00:00 PM Scheduled Provider:Esau Riddle MD Location:[facility] Appointment Type: Open Diagnostic Tests Pending * Wound Culture 01/24/23 Future Scheduled Tests Radiology* NM Myocardial Spect Rest/Stress 1 Day 12/08/22 * Echo Transthoracic Complete 12/08/22 [facility] Future Appointments Appointment Date:03/21/2023 03:00:00 PM Scheduled Provider:Esau Riddle MD Location:[facility] Appointment Type: Open Future Scheduled Tests Radiology* NM Myocardial Spect Rest/Stress 1 Day 12/08/22 * Echo Transthoracic Complete 12/08/22 [facility] Future Appointments Appointment Date:04/25/2023 01:00:00 PM Scheduled Provider:Esau Riddle MD Location:[facility] Appointment Type:FM Open Appointment Date:05/05/2023 10:15:00 AM Scheduled Provider:Felix Jolly MD [facility] Type:Cardiology Follow Up (FT) Future Scheduled Tests Radiology* NM Myocardial Spect Rest/Stress 1 Day 12/08/22 * Echo Transthoracic Complete 12/08/22 [facility] Future Appointments Appointment Date:05/05/2023 10:15:00 AM Scheduled Provider:Felix Jolly MD Location:[facility] Appointment Type:Cardiology Follow Up (FT) Appointment Date:05/18/2023 09:30:00 AM Scheduled Provider:Frankie Sarabia DO [facility] Type:ONC Office Visit 30 (FT) Appointment Date:06/06/2023 02:15:00 PM Scheduled Provider:Esau Riddle MD Location:[facility] Appointment Type:FM Open Future Scheduled Tests Radiology* CT Biopsy, Lung/Mediastinum 05/05/23 * Echo Transthoracic Complete 12/08/22 [facility] Future Appointments Appointment Date:05/05/2023 10:15:00 AM Scheduled Provider:Felix Jolly MD Location:[facility] Appointment Type:Cardiology Follow Up (FT) Appointment Date:05/18/2023 09:30:00 AM Scheduled Provider:Frankie Sarabia DO [facility] Type:ONC Office Visit 30 (FT) Appointment Date:06/06/2023 02:15:00 PM Scheduled Provider:Esau Riddle MD Location:[facility] Appointment Type:FM Open Diagnostic Tests Pending * CA 19-9 05/04/23 * Erythropoietin Level 05/04/23 Future Scheduled Tests Radiology* CT Biopsy, Lung/Mediastinum 05/05/23 * Echo Transthoracic Complete 12/08/22 [facility] Future Appointments Appointment Date:05/18/2023 09:30:00 AM Scheduled Provider:Frankie Sarabia DO [facility] Type:ONC Office Visit 30 (FT) Appointment Date:06/06/2023 02:15:00 PM Scheduled Provider:Esau Riddle MD Location:[facility] Appointment Type:FM Open Appointment Date:07/07/2023 11:15:00 AM Scheduled Provider:Felix Jolly MD Location:[facility] Appointment Type:Cardiology Follow Up (FT) Future Scheduled Tests Radiology* CT Biopsy, Lung/Mediastinum 05/05/23 * Echo Transthoracic Complete 12/08/22 [facility] Future Appointments Appointment Date:05/16/2023 11:00:00 AM Scheduled Provider:BETHANY BAKER MD [facility] Type:ONC Supportive Care New (FT) Appointment Date:05/18/2023 09:30:00 AM Scheduled Provider:Frankie Sarabia DO [facility] Type:ONC Office Visit 30 (FT) Appointment Date:06/06/2023 02:15:00 PM Scheduled Provider:Esau Riddle MD Location:[facility] Appointment Type: Open Appointment Date:06/09/2023 02:15:00 PM Scheduled Provider:Felix Jolly MD [facility] Appointment Type:Cardiology Follow Up (FT) Future Scheduled Tests Radiology* CT Biopsy, Lung/Mediastinum 05/05/23 * Echo Transthoracic Complete 12/08/22 [facility] Future Appointments Appointment Date:05/18/2023 09:30:00 AM Scheduled Provider:Frankie Sarabia DO [facility] Type:ONC Office Visit 30 (FT) Appointment Date:06/06/2023 02:15:00 PM Scheduled Provider:Esau Riddle MD Location:[facility] Appointment Type: Open Appointment Date:06/09/2023 02:15:00 PM Scheduled Provider:Felix Jolly MD [facility] Appointment Type:Cardiology Follow Up (FT) Future Scheduled Tests Radiology* CT Biopsy, Lung/Mediastinum 05/05/23 * Echo Transthoracic Complete 12/08/22 [facility] Future Appointments Appointment Date:05/31/2023 11:00:00 AM Scheduled Provider:Frankie Sarabia DO [facility] Type:ONC Office Visit 30 (FT) Appointment Date:06/06/2023 02:15:00 PM Scheduled Provider:Esau Riddle MD Location:[facility] Appointment Type: Open Appointment Date:06/09/2023 02:15:00 PM Scheduled Provider:Felix Jolly MD Location:[facility] Appointment Type:Cardiology Follow Up (FT) Future Scheduled Tests Laboratory* CA 19-9 05/29/23 * CBC w/ Auto Diff 05/17/23 * CBC w/ Auto Diff 05/29/23 * CEA 05/29/23 * Comprehensive Metabolic Panel 05/17/23 * Comprehensive Metabolic Panel 05/29/23 Radiology* CT Biopsy, Lung/Mediastinum 05/05/23 * Echo Transthoracic Complete 12/08/22 [facility] note[facility] assessment information available [facility] Work Phone: Evaluation note* Diagnosis Onset Date Resolution Status Peripheral vascular occlusive disease acute Type 2 diabetes mellitus acu te [facility] Work Phone: [email or web address] note* Diagnosis Obstructive jaundice- Primary Other specified disorders of biliary tract Pancreatic mass Unspecified disease of pancreas Pulmonary hypertension (HCC) Other chronic pulmonary heart diseases Obesity due to excess calories Hypercholesterolemia Pure hypercholesterolemia Primary hypertension Unspecified essential hypertension Diabetes mellitus type II, controlled (HCC) Type II or unspecified type diabetes mellitus without mention of complication, not stated as uncontrolled Coronary arteriosclerosis Coronary atherosclerosis of unspecified type of vessel, unga or graft Chronic obstructive pulmonary disease (HCC) Chronic airway obstruction, not elsewhere classified Chronic diastolic heart failure (HCC) Chronic diastolic heart failure Duodenal ulcer Duodenal ulcer, unspecified as acute or chronic, without hemorrhage, perforation, or obstruction documented in this encounter [facility]* Diagnosis Neoplasm of uncertain behavior of pancreas- Primary Malignant neoplasm of head of pancreas (CMS/HCC) Malignant neoplasm of head of pancreas documented in this encounter [facility] Work Phone: Evaluation note* Diagnosis Lung nodule- Primary Other diseases of lung, not elsewhere classified documented in this encounter [facility] Work Phone: Hisdixd general Narrative - Reported* Type Description Date Medical History hypertension Medical History diabetes mallitus Medical History hypercholesterolemia Surgical History heart catheterization x2 [employer] Other [facility] general Narrative - Reported* Type Description Date Medical History hypertension Medical History diabetes mallitus Medical History hypercholesterolemia Medical History Carotid stenosis Medical History [ ] Surgical History heart catheterization x2 [employer] Other History general Narrative - Reported* Type Description Date Medical History hypertension Medical History diabetes mallitus Medical History hypercholesterolemia Medical History Carotid stenosis Medical History [ ] Surgical History heart catheterization x2 Surgical History [ ] [employer] Other Hisdltb general Narrative - Reported* Type Description Date Medical History hypertension Medical History diabetes mallitus Medical History hypercholesterolemia Medical History Carotid stenosis Medical History [ ] Surgical History heart catheterization x2 Surgical History LT LEG FEM ENDART [employer] Other History of Present illness Narrative* CHAD Bajwa - 05/19/2023 4:00 PM EST Images from the original note were not included. Patient: Karuna Nelson [id number] : 1960 -- AGE 62 y.o. Provider: CHAD Bajwa Location [facility] Service Date: 05/19/2023 Department of Medicine Division of Pulmonary, Critical Care, and Sleep Medicine [facility] New Visit Note Virtual or Telephone Consent A telephone visit (audio only) between the patient (at the originating site) and the provider (at the distant site) was utilized to provide this telehealth service. Verbal consent was requested and obtained from Karuna Nelson on this date, 05/19/23 for a telehealth visit. HISTORY OF PRESENT ILLNESS PCP: Dr. Esau Riddle Medical Oncology: Dr. Danyel Aragon ([facility]) Surgical Oncology: Dr. Edison Pinto Cardiology: Dr. Felix Jolly ([facility]) HISTORY OF PRESENT ILLNESS Karuna Nelson is a 62 y.o. female who [facility] with concerns of right lung nodule. I have independently interviewed and examined the patient in the office and reviewed available records. Current History Patient referred to interventional pulmonology; she was recently diagnosed with pancreatic cancer and on a recent CT chest abdomen pelvis from 04/24/2023 there was a incidental finding of a 1.1 cm nodule in the right lower lobe and a 6 to 7 mm nodule in the left lower lobe. Majority of patient's care is from an outside hospital system. Patient is scheduled to attend preadmission testing on 05/25/2023. I was also able to review a recent left heart cath performed by her primary webmethods consultant on 05/15/2023; findings of minimal nonobstructive CAD. On today's visit, the patient reports no SOB at rest or TAMEZ. No current or prior inhaler history. Occasional cough; intermittently productive. Light yellow in color. No hemoptysis. No recent fever, chills, night sweats. Overall, weight has been stable. Denies orthopnea. Some lower leg swelling. Denies CP, palpitations. Hx of CHF; established with webmethods consultant. Has GERD but well controlled on [place]. Chronic rhinitis. Denies premature . No childhood pulmonary issues growing up. Has never been on home oxygen therapy before. REVIEW OF SYSTEMS REVIEW OF SYSTEMS Review of Systems Constitutional: Negative for activity change, appetite change, chills, fatigue, fever and unexpected weight change. HENT: Positive for rhinorrhea. Negative for congestion, postnasal drip, sinus pressure, sinus pain,sneezing, sore throat, trouble swallowing and voice change. Eyes: Negative for redness and itching. Respiratory: Negative for cough, chest tightness, shortness of breath, wheezing and stridor. Cardiovascular: Negative for chest pain, palpitations and leg swelling. Denies orthopnea Gastrointestinal: Negative for abdominal pain, diarrhea, nausea and vomiting. Denies acid reflux Musculoskeletal: Negative for arthralgias, back pain, joint swelling and myalgias. Skin: Negative for rash. Allergic/Immunologic: Negative for immunocompromised state. Neurological: Positive for dizziness. Negative for tremors, weakness and headaches. Hematological: Does not bruise/bleed easily. Psychiatric/Behavioral: Negative for agitation and sleep disturbance. The patient is not nervous/anxious. Denies depression All other systems reviewed and are negative. ALLERGIES AND MEDICATIONS ALLERGIES Allergies Allergen Reactions Albuterol Palpitations and Other Other Reaction(s): Severe, Tight chest Patient states feels as if she is having a heart attack. Sulfa (Sulfonamide Antibiotics) Angioedema, Rash and Shortness of breath Other Reaction(s): Mild Severe swelling MEDICATIONS Current Outpatient Medications Medication Sig Dispense Refill acetaminophen (Tylenol) 325 mg tablet Take 1 tablet (325 mg) by mouth once daily as needed. aspirin 81 mg EC tablet Take 1 tablet (81 mg) by mouth once daily. atorvastatin (Lipitor) 40 mg tablet Take 1 tablet (40 mg) by mouth once daily. clopidogrel (Plavix) 75 mg tablet Take 1 tablet (75 mg) by mouth once daily. furosemide (Lasix) 40 mg tablet Take 1 tablet (40 mg) by mouth once daily. glipiZIDE (Glucotrol) 10 mg tablet Take 1 tablet (10 mg) by mouth 2 times a day before meals. insulin glargine (Lantus U-100 Insulin) 100 unit/mL injection Inject 20 Units under the skin 2 times a day. Take as directed per insulin instructions. insulin lispro (HumaLOG) 100 unit/mL injection Inject 2-10 Units under the skin 3 times a day with meals. lisinopril 30 mg tablet Take 1 tablet (30 mg) by mouth once daily. metFORMIN XR 500 mg 24 hr tablet Take 2 tablets (1,000 mg) by mouth 2 times a day with meals. metoprolol tartrate (Lopressor) 100 mg tablet Take 1 tablet (100 mg) by mouth 2 times a day. pantoprazole (ProtoNix) 40 mg EC tablet Take 1 tablet (40 mg) by mouth once daily in the morning. Take before meals. spironolactone (Aldactone) 50 mg tablet Take 1 tablet (50 mg) by mouth once daily. Trulicity 0.75 mg/0.5 mL pen injector Inject 0.75 mg under the skin 1 (one) time per week. Once a week on Mondays No current facility-administered medications for this visit. PAST HISTORY PAST MEDICAL HISTORY She has a past medical history of CHF (congestive heart failure) (CMS/HCC), COPD (chronic obstructive pulmonary disease) (CMS/HCC), Diabetes mellitus (CMS/HCC), GERD (gastroesophageal reflux disease), Hiatal hernia (04/24/2023), History of blood transfusion, Hyperlipidemia, Hypertension, Lung nodule, Peripheral vascular disease (CMS/HCC), Stroke (CMS/HCC), and Vision loss. PAST SURGICAL HISTORY Past Surgical History: Procedure Laterality Date CT CHEST ABDOMEN PELVIS W IV CONTRAST There is a vague ill-defined hypoenhancing area at the pancreatic head corresponding to the findingon the earlier MRI. This is concerning for a primary pancreatic neoplasm. T OTHER SURGICAL HISTORY Gallbladder stent 04/2023 TOE AMPUTATION VEIN SURGERY IMMUNIZATION HISTORY There is no immunization history on file for this patient. SOCIAL HISTORY She reports that she has been smoking cigarettes. She started smoking about 51 years ago. She has a50.00 pack-year smoking history. She has never been exposed to tobacco smoke. She has never used smokeless tobacco. She reports that she does not currently use alcohol. She reports that she does not currently use drugs. FAMILY HISTORY Family History Problem Relation Name Age of Onset Heart attack Father Cancer Sister Lung cancer Sister PHYSICAL EXAM PREVIOUS WEIGHTS: Wt Readings from Last 3 Encounters: 05/08/23 89.5 kg (197 lb 5 oz) Physical Exam No physical exam performed; virtual visit. RESULTS/DATA Pulmonary Function Test Results No PFT on record Chest Radiograph No results found for this or any previous visit from the past [address] Scan CT Chest/A/P 04/24/23: 1. There is a vague ill-defined hypoenhancing area at the pancreatic head corresponding tothe finding on the earlier MRI. This is concerning for a primary pancreatic neoplasm. There is moderate intra and extrahepatic ductal dilatation. The pancreatic duct is of normal caliber. As noted inthe report for the MRI, follow-up ERCP/EUS recommended for further evaluation. 2. There is a 1.4 cmleft adrenal mass. Recommendation below. 3. There is a 1.1 cm mass in the right lower lobe and a 6-7 mm nodule in the left lower lobe. Recommendation below. 4. No other evidence of metastatic diseasein the chest, abdomen or pelvis. 5. There is mild grade 1 anterolisthesis of L5 on S1 due to bilateral L5 pars defects. Echocardiogram & Cardiac Studies [facility] (05/15/23) Labwork & Pathology Complete Blood Count Lab Results Component Value Date WBC 11.9 (H) 05/08/2023 HGB 8.6 (L) 05/08/2023 HCT 29.4 (L) 05/08/2023 MCV 88 05/08/2023 PLT 385 05/08/2023 Peripheral Eosinophil Count: No results found for: EOSABS Serum Immunoglobulin E: No results found for: IGE Metabolic Parameters Sodium Date/Time Value Ref Range Status 05/08/2023 01:37 PM 138 136 - 145 mmol/L Final Potassium Date/Time Value Ref Range Status 05/08/2023 01:37 PM 4.4 3.5 - 5.3 mmol/L Final Chloride Date/Time Value Ref Range Status 05/08/2023 01:37 PM 102 98 - 107 mmol/L Final Bicarbonate Date/Time Value Ref Range Status 05/08/2023 01:37 PM 25 21 - 32 mmol/L Final Anion Gap Date/Time Value Ref Range Status 05/08/2023 01:37 PM 15 10 - 20 mmol/L Final Urea Nitrogen Date/Time Value Ref Range Status 05/08/2023 01:37 PM 14 6 - 23 mg/dL Final Creatinine Date/Time Value Ref Range Status 05/08/2023 01:37 PM 0.76 0.50 - 1.05 mg/dL Final Glucose Date/Time Value Ref Range Status 05/08/2023 01:37 PM 115 (H) 74 - 99 mg/dL Final Calcium Date/Time Value Ref Range Status 05/08/2023 01:37 PM 8.4 (L) 8.6 - 10.3 mg/dL Final AST Date/Time Value Ref Range Status 05/08/2023 01:37 PM 14 9 - 39 U/L Final ALT Date/Time Value Ref Range Status 05/08/2023 01:37 PM 17 7 - 45 U/L Final Comment: Patients treated with Sulfasalazine may generate falsely decreased results for ALT. Bronchoscopy & Sputum Cultures ASSESSMENT/PLAN Ms. Nelson is a 62 y.o. female; was referred to the [facility] for evaluation of right lung nodule. Problem List and Orders Diagnoses and all orders for this visit: Lung nodule Assessment and Plan / Recommendations: Patient's visit was converted to a virtual visit. 1. Right lower lobe nodule/mass: she was recently diagnosed with pancreatic cancer and on a recent CT chest abdomen pelvis from 04/24/2023 there was a incidental finding of a 1.1 cm nodule in the right lower lobe and a 6 to 7 mm nodule in the left lower lobe. - Plan for bronchoscopy with biopsy. Navigational bronchoscopy & Staging EBUS. CT Navigational prior. - Lab work prior to procedure; completed 05/08/23 - On Plavix; will require 5 day hold. Last dose to be Monday05/20/23. - Bronch write up mentions need for cardiac clearance. Sees a webmethods consultant at [facility]. Just underwent LHC on 05/15/23 (result posted above) and will be going to PAT on 05/25/23 (per Leonel). I explained the procedure to the patient. We discussed that the bronchoscopy will be performed by evan of the Interventional Pulmonary Team; depending on scheduling and provider availability. We also discussed that the IP providers function as a team and not infrequently may have to fill in forone another if there are emergent issues that need attention at the same time. The patient / familyexpressed understanding and agreed to proceed. All questions were answered. Patient's visit was converted to a virtual visit. Spoke with the patient via phone for 12 minutes. Prep: 10 minutes Phone/Video: 12 minutes Total: 22 minutes [facility] Work Phone: Hospital course Narrative No data available for this section [facility] Discharge instructions No data available for this section [facility] Discharge instructions Additional Instructions hold Metformin x 48 hours ,office will call with pre operative instructions [facility] Work Phone: Hospital Discharge instructionsAmbulatory Orders* DME Home Medical Equipment Time Frame: 1 Day, Location: Determined By Patient Additional Instructions -Maintain prevena dressing for 7 days. Then remove and discard. -Daily wound care left first toe:wash with vasche,dress with silvasorb gel, [facility] Work Phone: Hospital Discharge instructions* Attachments The following attachments cannot be sent through Care Everywhere. * Peptic Ulcer Disease ([place]) * Biliary Stent Placement: Post-op ([place]) [facility] No data available for this section [facility] , Pancreatic adenocarcinoma. We will have to determine resectability.refer to Dr. Yohannes Blackmon or Dr. Tyrone Rdz or Dr. Yohannes Pinto/ [facility] location only Referred by: Frankie Sarabia DO [facility] Summary Purpose Family History No Family History Records Found Relationship Condition Age at Onset Recorded Date/T david sister Malignant neoplasm of lung Unknown sister Malignant neoplasm of kidney Unknown brother Type 2 diabetes mellitus Unknown father Myocardial infarction Unknown Not Specified Pulmonary emphysema Unknown Advance Directives No Advanced Directives Records Found Advance Directive Response Recorded Date/ Time Advance Directives No September 28 12:44pm Advance Directive Response Recorded Date/ Time Advance Directives No February 12:05pm Latest Code Status on File Code Status Date Activated Date Inactivated Comments Full Code 04/23/2023 1:25 PM Chief Complaint and Reason for Visit Chief Complaint i65.22 Chief Complaint I65.23 Chief Complaint PVD w/Gangrene Chief Complaint PVD w/Gangrene PVD w/ Gangrene Reason for Visit Peripheral vascular occlusive disease Type 2 diabetes mellitus Reason for Referral Specialty Diagnoses / Procedures Referred By Agatha kaplan Referred To Contact Diagnoses Neoplasm of uncertain behavior of pancreas Procedures EKG 12 Edison Vázquez [place] [address] Department of [place] [address] Referral ID Status Reason Start Date Expiration Date V isits Requested Visits Authorized [id number] Authorized 05/08/2023 05/07/2024 1 1 Additional Source Comments INFORMATION SOURCE (unrecogn ized section and content) DATE CREATED AUTHOR 08/29/2020 [facility] DATE CREATED AUTHOR AUTHOR'S ORGANIZ ATION 07/01/2022 [facility] DATE CREATED AUTHOR AUTHOR'S ORGANIZ ATION 04/19/2023 [facility] DATE CREATED AUTHOR AUTHOR'S ORGANIZ ATION 04/29/2023 [facility] DATE CREATED AUTHOR AUTHOR'S ORGANIZ ATION 05/12/2023 [facility] DATE CREATED AUTHOR AUTHOR'S ORGANIZ ATION 05/19/2023 [facility] DATE CREATED AUTHOR AUTHOR'S ORGANIZ ATION 05/20/2023 [facility] DATE CREATED AUTHOR AUTHOR'S ORGANIZ ATION 05/21/2023 [facility] Amb[facility] REASON FOR VISIT (unrecogniz ed section and content) Specialty Diagnoses / Procedures Referred By Agatha kaplan Referred To Contact Diagnoses Obstructive jaundice obstuctive jaundice Shailesh Miranda MD [address] [facility] [address] [place] [address] [facility] [address] [place] [address] Referral ID Status Reason Start Date Expiration Date Visits Re quested Visits Authorized [id number] 1 1 Reason Comments Follow-up Reason Comments Patient evaluation Care Teams (unrecognized sec tion and content) Team Status: Active Member Role Status Dates Yuni Mast MD Primary Care Provider Active Team Status: Inactive Member Role Status Dates Yuni Mast MD Primary Care Provider Active Luc Vargas MD Attending Provider Active Team Status: Active Member Role Status Dates Esau Riddle MD Primary Care Provider Active Team Status: Inactive Member Role Status Dates Luc Vargas MD Attending Provider Active Esau Riddle MD Primary Care Provider Active Team Status: Inactive Member Role Status Dates Esau Riddle MD Primary Care Provider Active Luc Vargas MD Admit Provider, Attending Provide r Active Reyes Hamilton MD Other Provider Active Help Desk Support Specialist Relationship Specialty Start Date End Date Esau Riddle MD [address] [place] [address] PCP - General 04/23/23 Help Desk Support Specialist Relationship Specialty Start Date End Date Esau Riddle MD [address] [facility] [place] [address] PCP - General Family Medicine 05/05/23 Help Desk Support Specialist Relationship Specialty Start Date End Date Esau Riddle MD [address] [facility] [place] [address] PCP - General Family Medicine 05/05/23 Goals (unrecognized section and content) Goals may be documented in a n alternate section Ordered Prescriptions (unrec ognized section and content) Prescription Sig Dispensed Refills Start Date End Da te pantoprazole (PROTONIX) 40 MG tablet Take 1 tablet by mouth 2 times daily (before meals) 60 tablet 3 04/28/2023 aspirin 81 MG chewable tablet Take 1 tablet by mouth daily May resume in 5 days 30 tablet 3 04/28/2023 clopidogrel (PLAVIX) 75 MG tablet Take 1 tablet by mouth daily May resume in 5 days 30 tablet 3 04/28/2023 Scheduled Active and Recently Administ ered Medications (unrecognized section and content) Medication Order 04/26/2023 04/27/2023 04/28/2023 atorvastatin (LIPITOR) tablet 20 mg 20 mg, Oral, NIGHTLY, First dose on Mon04/26/23 at 2100, Until Discontinued 2127 (Given - Provider: Karuna Servin RN) 2048 (Given - Provider: Nikolas Baumann RN) 2100 (Due) dextrose bolus 10% 250 mL (COMPLETED)(Linked Group 1) 250 mL, IntraVENous, at 937.5 mL/hr, Administer over 16 Minutes, ONCE, On Mon04/26/23 at 1000, For 1 dose, 250 mL of dextrose 10 % = 25 g of dextrose 1051 (New Bag - Provider: Alysia Ponce RN)1112 (Stopped - Provider: Alysia Ponce RN) enoxaparin (LOVENOX) injection 40 mg 40 mg, SubCUTAneous, DAILY, First dose on Mon04/23/23 at 1345, Until Discontinued, Indication of Use: Prophylaxis-DVT/PE, Administer by deep subCUTAneous injection with pt lying down. Alternate injection sites on abdominal wall. Do not rub site after injection. Check with provider prior to any invasive procedure. 0901 (Given - Provider: Alysia Ponce RN)1520 (Held by provider - Provider: CHACHO Camacho NP - Reason: Other) 0900 (Automatically Held - Provider: CHACHO Camacho NP)1831 (Unheld by provider - Provider: Luc Tony DO) 0840 (Given - Provider: Valerie Retana RN) furosemide (LASIX) injection 40 mg (COMPLETED) 40 mg, IntraVENous, ONCE, 1 dose, On Mon04/26/23 at 1000 1049 (Given - Provider: Alysia Ponce RN) furosemide (LASIX) tablet 40 mg 40 mg, Oral, DAILY, First dose on Mon04/26/23 at 1730, Until Discontinued 173 (Given - Provider: Alysia Ponce RN) 1015 (Given - Provider: Valerie Retana, AVRIL) 0839 (Given - Provider: Valerie Retana RN) glipiZIDE (GLUCOTROL) tablet 10 mg 10 mg, Oral, 2 TIMES DAILY BEFORE MEALS, First dose on Mon04/26/23 at 1730, Until Discontinued 173 (Given - Provider: Alysia Ponce, AVRIL) 0504 (Given - Provider: Karuna Servin RN)0935 (Held by provider - Provider: CHACHO Camacho NP - Reason: Other)1600 (Automatically Held - Provider: Teodoro Farley APRN - RU) 0700 (Automatically Held - Provider: Teodoro Farley APRN - RU)0716 (Unheld by provider - Provider: Luc Tony DO)0836 (Given - Provider: Valerie Retana RN - Comment: order unheld)1600 (Due) insulin glargine (LANTUS) injection vial 20 Units 20 Units, SubCUTAneous, 2 TIMES DAILY, First dose on Mon04/26/23 at 2100, Until Discontinued 2127 (Given - Provider: Karuna Servin RN) 0935 (Held by provider - Provider: Teodoro Farley APRN - RU - Reason: Other)1129 (Not Given - Provider: Valerie Retana RN - Reason: Other - Comment: held by provider)183 (Unheld by provider - Provider: Luc Tony DO)205 (Given - Provider: Nikolas Baumann RN - Comment: [phone]) 0839 (Given - Provider: Valerie Retana RN)2100 (Due) insulin lispro (HUMALOG) injection vial 0-16 Units 0-16 Units, SubCUTAneous, 3 TIMES DAILY WITH MEALS, First dose on Mon04/26/23 at 1730, Until Discontinued, High Dose Corrective Algorithm Glucose: Dose: 70-199 No Insulin 200-249 4 Units 250-299 8 Units 300-349 12 Units Over 349 16 Units and notify physician 1737 (Given - Provider: Alysia Ponce RN - Comment: bs [phone]) 1015 (Given - Provider: Valerie Retana RN)1222 (Given - Provider: Valerie Retana RN)1806 (Given - Provider: Valerie Retana RN) 0840 (Given - Provider: Valerie Retana RN)1200 (Due)1700 (Due) insulin lispro (HUMALOG) injection vial 0-4 Units 0-4 Units, SubCUTAneous, NIGHTLY, First dose on Mon04/26/23 at 2100, Until Discontinued, If continuous tube feedings/TPN/NPO, give correction dose based on result, no reduction in dose. If eating or bolus tube feeding: Corrective Bedtime Algorithm Glucose: Dose: 70-299 No Insulin 300-349 4 Units Over 349 4 Units and notify physician 0124 (Not Given - Provider: Karuna Servin RN - Reason: Order parameters not met)2048 (Given - Provider: Nikolas Baumann RN - Comment: 421 BG, PRODUCTION SUPPORT CONSULTANT notified) 2099 (Due) insulin lispro (HUMALOG) injection vial 0-8 Units (CANCELED) 0-8 Units, SubCUTAneous, 3 TIMES DAILY WITH MEALS, First dose on Mon04/24/23 at 1300, Until Discontinued, Medium Dose Corrective Algorithm Glucose: Dose: 70-199 No Insulin 200-249 2 Units 250-299 4 Units 300-349 6 Units Over 349 8 Units and notify physician 0901 (Given - Provider: Alysia Ponce RN - Comment: [phone] (Given - Provider: Alysia Ponce RN - Comment: [phone])1700 (Not Given - Provider: Alysia Ponce RN - Reason: Other) insulin regular (HUMULIN R;NOVOLIN R) injection 10 Units (COMPLETED)(Linked Group 1) 10 Units, IntraVENous, ONCE, 1 dose, On Mon04/26/23 at 1000 1042 (Given - Provider: Alysia Ponce RN) lisinopril (PRINIVIL;ZESTRIL) tablet 30 mg 30 mg, Oral, DAILY, First dose on Mon04/26/23 at 1730, Until Discontinued 173 (Given - Provider: Alysia Ponce RN) 1015 (Given - Provider: Valerie Retana RN) 0837 (Given - Provider: Valerie Retana RN) metoprolol (LOPRESSOR) tablet 100 mg 100 mg, Oral, 2 TIMES DAILY, First dose on Mon04/26/23 at 2100, Until Discontinued 2127 (Given - Provider: Karuna Servin RN) 1015 (Given - Provider: Valerie Retana RN)2048 (Given - Provider: Nikolas Baumann RN) 0836 (Given - Provider: Valerie Retana, AVRIL)2100 (Due) pantoprazole (PROTONIX) tablet 40 mg 40 mg, Oral, 2 TIMES DAILY BEFORE MEALS, First dose on Mon04/25/23 at 1815, Until Discontinued, Substituted for Esomeprazole (NEXIUM). 0901 (Given - Provider: Alysia Ponce, AVRIL)1737 (Given - Provider: Alysia Ponce, RN) 0504 (Given - Provider: Karuna Servin, AVRIL)1806 (Given - Provider: Valerie Retana, AVRIL) 0526 (Given - Provider: Nikolas Baumann RN)1600 (Due) piperacillin-tazobactam (ZOSYN) 3,375 mg in sodium chloride 0.9 % 50 mL IVPB (mini-bag) (CANCELED)(Linked Group 2) 3,375 mg, IntraVENous, EVERY 8 HOURS, First dose on Mon04/23/23 at 2000, Until Discontinued, Antimicrobial Indications: Intra-Abdominal Infection 0201 (Stopped - Provider: Karuna Servin RN)0449 (New Bag - Provider: Karuna Servin RN)0849 (Stopped - Provider: Alysia Ponce, AVRIL) sodium bicarbonate 8.4 % injection 50 mEq (COMPLETED) 50 mEq, IntraVENous, ONCE, 1 dose, On Mon04/26/23 at 1000 1050 (Given - Provider: Alysia Ponce, AVRIL) sodium chloride 0.9 % bolus 100 mL 100 mL (1.04 mL/kg), IntraVENous, at 50 mL/hr, Administer over 2 Hours, ONCE, On Mon04/24/23 at 1045, For 1 dose sodium chloride flush 0.9 % injection 10 mL 10 mL, IntraVENous, ONCE, 1 dose, On Mon04/24/23 at 2100, GIVEN DURING CT SCAN sodium chloride flush 0.9 % injection 5-40 mL 5-40 mL, IntraVENous, EVERY 12 HOURS SCHEDULED (2 times per day), First dose on Mon04/23/23 at 2100, Until Discontinued, For Line Patency: Peripheral IV = 5 mL; Midline or Central Line = 10 mL/lumen. If following IV push medication, administer flush at same rate as the IV push. Flush volume is determined by type of infusion therapy being given. For non-viscous solutions use: Peripheral IV = 5 mL Midline or Central Line = 10 mL/lumen For viscous solutions (i.e. blood components, parenteral nutrition, contrast media, or after obtaining blood sample) use: Peripheral IV = 10 mL Midline or Central Line = 20 mL/lumen 0901 (Not Given - Provider: Alysia Ponce RN - Reason: IV Fluid Infusing) 0124 (Not Given - Provider: Karuna Servin RN - Reason: IV Fluid Infusing)1016 (Given - Provider: Valerie Retana RN)2051 (Not Given - Provider: Nikolas Baumann RN - Reason: IV Fluid Infusing) 0841 (Given - Provider: Valerie Retana RN)2100 (Due) spironolactone (ALDACTONE) tablet 50 mg 50 mg, Oral, DAILY, First dose on Mon04/26/23 at 1730, Until Discontinued 1737 (Given - Provider: Alysia Ponce RN) 1015 (Given - Provider: Valerie Retana RN) 0836 (Given - Provider: Valerie Retana RN) Continuous Medication Order 04/26/2023 04/27/2023 04/28/2023 0.9 % sodium chloride infusion IntraVENous, at 100 mL/hr, CONTINUOUS, Starting on Mon04/24/23 at 1300 1209 (New Bag - Provider: Valerie Retana RN)2230 (New Bag - Provider: Nikolas Baumann RN) 1119 (Stopped - Provider: Valerie Retana RN) PRN Medication Order 04/26/2023 04/27/2023 04/28/2023 0.9 % sodium chloride infusion IntraVENous, at 5-250 mL/hr, PRN, if patient receiving piggyback infusions and maintenance fluids are not ordered OR KVO fluids to protect IV site / prevent frequent line interruptions/ long duration, Starting on Mon04/23/23 at 1325, For piggyback infusion, administer at same rate as piggyback for a total of 25 mL. Enter 25 mL into dose field and piggyback rate into rate field of order. If piggyback is infusing at a rate less than 100 mL/hr, enter 25 mL into dose field and 100 mL/hr into rate field of order. For KVO fluids, enter rate of 20 mL/hr or less into rate field of order. 0.9 % sodium chloride infusion IntraVENous, at 240 mL/hr, Administer over 10 Minutes, PRN, blood administration, Starting on Mon04/26/23 at 0915, For 1 dose, For use in priming line prior to transfusion (prime via gravity) and flush line post transfusion ONLY. Discontinue once line has been cleared of remaining blood product. 0.9 % sodium chloride infusion IntraVENous, at 240 mL/hr, Administer over 10 Minutes, PRN, blood administration, Starting on Ana 04/27/23 at 0026, For 1 dose, For use in priming line prior to transfusion (prime via gravity) and flush line post transfusion ONLY. Discontinue once line has been cleared of remaining blood product. acetaminophen (TYLENOL) suppository 650 mg(Linked Group 3) 650 mg, Rectal, EVERY 6 HOURS PRN, Starting on 04/23/23 at 1325, Until Discontinued, Pain Mild (1-3), Fever, For temp greater than 100.4 F (38 C), Administer if oral route cannot be used. acetaminophen (TYLENOL) tablet 650 mg(Linked Group 3) 650 mg, Oral, EVERY 6 HOURS PRN, Starting on 04/23/23 at 1325, Until Discontinued, Pain Mild (1-3), Fever, For temp greater than 100.4 F (38 C), Maximum dose of acetaminophen is 4000 mg from all sources in 24 hours. dextrose 10 % infusion IntraVENous, at 100 mL/hr, CONTINUOUS PRN, if blood glucose remains LESS THAN 70 mg/dL after 2 dextrose 10% intravenous boluses or administration of glucagon, Starting on Mon04/26/23 at 0939, If blood glucose fails to stabilize after 2 dextrose 10% intravenous boluses or glucagon administration, start dextrose 10% infusion at 100 mL/hour and repeat blood glucose at 30 and 60 minutes. If blood glucose is GREATER THAN 70 mg/dL after 60 minutes, discontinue dextrose 10% infusion. dextrose bolus 10% 125 mL(Linked Group 4) 125 mL, IntraVENous, at 937.5 mL/hr, Administer over 8 Minutes, PRN, Other, Blood glucose 40 - 69 mg/dL and patient NOT ALERT or NPO, Starting on Mon04/26/23 at 0939, Repeat blood glucose in 15 minutes. If blood glucose remains LESS THAN 70 mg/dL, repeat treatment and recheck blood glucose in 15 minutes x 2. If using glycemic management system, dose as instructed per system. If blood glucose remains LESS THAN 70 mg/dL after 2 intravenous boluses start dextrose 10% at 100 mL/hour and notify provider. dextrose bolus 10% 250 mL(Linked Group 4) 250 mL, IntraVENous, at 937.5 mL/hr, Administer over 16 Minutes, PRN, Other, Blood glucose LESS THAN 40 mg/dL and patient NOT ALERT or NPO, Starting on Mon04/26/23 at 0939, Repeat blood glucose in 15 minutes. If blood glucose remains LESS THAN 70 mg/dL, repeat treatment and recheck blood glucose in 15 minutes x 2. If using glycemic management system, dose as instructed per system. If blood glucose remains LESS THAN 70 mg/dL after 2 intravenous boluses start dextrose 10% at 100 mL/hour and notify provider. glucagon injection 1 mg 1 mg, SubCUTAneous, PRN, Starting on Mon04/26/23 at 0939, Until Discontinued, Low blood sugar, Blood glucose LESS THAN 70 mg/dL and patient NOT ALERT or NPO and does not have IV access., After administration, attempt intravenous access and start dextrose 10% at 100 mL/hr. Repeat blood glucose in 15 minutes x 2 and notify provider. glucose chewable tablet 16 g 16 g (4 tablet), Oral, PRN, Starting on Mon04/26/23 at 0939, Until Discontinued, Low blood sugar, If blood glucose is LESS THAN 70 mg/dL and patient is alert and tolerating oral. Give 4 tablets (16g) Repeat blood glucose in 15 minutes. If blood glucose is LESS THAN 70 mg/dL, repeat treatment and recheck blood glucose in 15 minutes x 2. If blood glucose remains LESS THAN 70 mg/dL, notify provider. magnesium sulfate 1000 mg in dextrose 5% 100 mL IVPB 1,000 mg, IntraVENous, at 100 mL/hr, Administer over 1 Hours, PRN, Other, Per IV Magnesium Replacement Protocol, Starting on Mon04/23/23 at 1325, Mg Lab Replacement Action 1.4-1.6 1 gram IVPB x 2 doses (2 gram Total) 1.0-1.3 1 gram IVPB x 4 doses (4 gram Total) <1.0 CALL PHYSICIAN and 1 gram IVPB x 4 doses (4 gram Total) Infuse at 1 gram/hr. Repeat Mag level next AM. Protocol not for use in patients with CrCl less than 30 mL/min. morphine sulfate (PF) injection 4 mg 4 mg, IntraVENous, EVERY 4 HOURS PRN, Starting on 04/23/23 at 1510, Until Discontinued, Pain Severe (7-10), If oral and IV narcotics ordered, use oral first and only use IV if oral is ineffective or cannot take oral. Do Not give oral and IV within 1 hour of each other unless specifically ordered. ondansetron (ZOFRAN) injection 4 mg(Linked Group 5) 4 mg, IntraVENous, EVERY 6 HOURS PRN, Starting on 04/23/23 at 1325, Until Discontinued, Nausea, Vomiting, Administer if oral route cannot be used. polyethylene glycol (GLYCOLAX) packet 17 g 17 g, Oral, DAILY PRN, Starting on 04/23/23 at 1325, Until Discontinued, Constipation, First line therapy for constipation potassium bicarb-citric acid (EFFER-K) effervescent tablet 40 mEq(Linked Group 6) 40 mEq, Oral, PRN, Starting on 04/23/23 at 1325, Until Discontinued, Per Potassium Replacement Protocol, Administer as alternative if patient unable to tolerate oral tablet. K Lab Replacement Action 3.1 to 3.5 40 mEq ORAL x 1 Under 3.1 Refer to IV replacement protocol Recheck K level in AM. Protocol not for use in patients with CrCl less than 30 mL/min. Do not chew or crush. Dissolve flavored tablets completely in 3 to 4 ounces of cold water; unflavored tablets may be dissolved in 3 to 4 ounces of cold juice. Patient to sip slowly over a 5 to 10 minute period. May further dilute if GI adverse effects occur. potassium chloride (KLOR-CON M) extended release tablet 40 mEq(Linked Group 6) 40 mEq, Oral, PRN, Starting on 04/23/23 at 1325, Until Discontinued, Potassium Replacement, May give alternative linked oral order (ordered as effervescent, packet, or liquid solution) if patient unable to tolerate tablet. K Lab Replacement Action 3.1 to 3.5 40 mEq ORAL x 1 Under 3.1 Refer to IV replacement protocol Recheck K level in AM. Protocol not for use in patients with CrCl less than 30 mL/min. Do not crush, chew, or suck on tablet. Tablet may also be broken in half and each half swallowed separately. potassium chloride 10 mEq/100 mL IVPB (Peripheral Line)(Linked Group 6) 10 mEq, IntraVENous, PRN, Starting on Mon04/23/23 at 1325, Until Discontinued, at 100 mL/hr, Per Potassium Replacement Protocol, K Lab Replacement Action 2.7-3.0 10 mEeq IVPB x 6 doses (60 mEq Total) <2.7 CALL PHYSICIAN and 10 mEq IVPB x 6 doses (60 mEq Total) Infuse at 10 mEq/hr. Repeat potassium lab 1 hour after final administration. Protocol not for use in patients with CrCl less than 30 mL/min. promethazine (PHENERGAN) tablet 12.5 mg(Linked Group 5) 12.5 mg, Oral, EVERY 6 HOURS PRN, Starting on Mon04/23/23 at 1325, Until Discontinued, Nausea, Vomiting sodium chloride flush 0.9 % injection 10 mL 10 mL, IntraVENous, PRN, Starting on Mon04/23/23 at 1325, Until Discontinued, Line Care, After every IV line use Linked Groups Order Group 1: insulin regular (HUMULIN R;NOVOLIN R) injection 10 Units (COMPLETED)Jump to med 10 Units, IntraVENous, ONCE, 1 dose, On Mon04/26/23 at 1000 And dextrose bolus 10% 250 mL (COMPLETED)Jump to med 250 mL, IntraVENous, at 937.5 mL/hr, Administer over 16 Minutes, ONCE, On Mon04/26/23 at 1000, For 1 dose
250 mL of dextrose 10 % = 25 g of dextrose
And POCT Glucose () Routine, EVERY 30 MIN, First occurrence on Mon04/26/23 at 0945, Last occurrence on Mon04/26/23 at 1015, For 2 occurrences
Obtain POCT Glucose every 30 minutes following D50 administration times 2 occurrences, then every 1 hr times 2 occurrences, and then AC/HS for 24 hours. And POCT Glucose () Routine, Every Hour (Lab POC), First occurrence on Mon04/26/23 at 1045, Last occurrence on Mon04/26/23 at 1145, For 2 occurrences
Obtain POCT Glucose every 30 minutes following D50 administration times 2 occurrences, then every 1 hr times 2 occurrences, and then AC/HS for 24 hours. And POCT Glucose () Routine, 4 TIMES DAILY BEFORE MEALS & AT BEDTIME, First occurrence on Mon04/26/23 at 1245, Last occurrence on Mon04/27/23 at 0700, For 24 hours
Obtain POCT Glucose every 30 minutes following D50 administration times 2 occurrences, then every 1 hr times 2 occurrences, and then AC/HS for 24 hours. Group 2: piperacillin-tazobactam (ZOSYN) 4,500 mg in sodium chloride 0.9 % 100 mL IVPB (mini-bag) (COMPLETED) 4,500 mg, IntraVENous, ONCE, 1 dose, On Mon04/23/23 at 1400
Antimicrobial Indications: Intra-Abdominal Infection And piperacillin-tazobactam (ZOSYN) 3,375 mg in sodium chloride 0.9 % 50 mL IVPB (mini-bag) (CANCELED)Jump to med 3,375 mg, IntraVENous, EVERY 8 HOURS, First dose on Mon04/23/23 at 2000, Until Discontinued
Antimicrobial Indications: Intra-Abdominal Infection Group 3: acetaminophen (TYLENOL) tablet 650 mgJump to med 650 mg, Oral, EVERY 6 HOURS PRN, Starting on Mon04/23/23 at 1325, Until Discontinued, Pain Mild (1-3), Fever, For temp greater than 100.4 F (38 C)
Maximum dose of acetaminophen is 4000 mg from all sources in 24 hours.
Or acetaminophen (TYLENOL) suppository 650 mgJump to med 650 mg, Rectal, EVERY 6 HOURS PRN, Starting on Mon04/23/23 at 1325, Until Discontinued, Pain Mild (1-3), Fever, For temp greater than 100.4 F (38 C)
Administer if oral route cannot be used.
Group 4: dextrose bolus 10% 125 mLJump to med 125 mL, IntraVENous, at 937.5 mL/hr, Administer over 8 Minutes, PRN, Other, Blood glucose 40 - 69 mg/dL and patient NOT ALERT or NPO, Starting on Mon04/26/23 at 0939
Repeat blood glucose in 15 minutes. If blood glucose remains LESS THAN 70 mg/dL, repeat treatment and recheck blood glucose in 15 minutes x 2. If using glycemic management system, dose as instructed per system. If blood glucose remains LESS THAN 70 mg/dL after 2 intravenous boluses start dextrose 10% at 100 mL/hour and notify provider.
Or dextrose bolus 10% 250 mLJump to med 250 mL, IntraVENous, at 937.5 mL/hr, Administer over 16 Minutes, PRN, Other, Blood glucose LESS THAN 40 mg/dL and patient NOT ALERT or NPO, Starting on Mon04/26/23 at 0939
Repeat blood glucose in 15 minutes. If blood glucose remains LESS THAN 70 mg/dL, repeat treatment and recheck blood glucose in 15 minutes x 2. If using glycemic management system, dose as instructed per system. If blood glucose remains LESS THAN 70 mg/dL after 2 intravenous boluses start dextrose 10% at 100 mL/hour and notify provider.
Group 5: promethazine (PHENERGAN) tablet 12.5 mgJump to med 12.5 mg, Oral, EVERY 6 HOURS PRN, Starting on 04/23/23 at 1325, Until Discontinued, Nausea, Vomiting Or ondansetron (ZOFRAN) injection 4 mgJump to med 4 mg, IntraVENous, EVERY 6 HOURS PRN, Starting on 04/23/23 at 1325, Until Discontinued, Nausea, Vomiting
Administer if oral route cannot be used.
Group 6: potassium chloride (KLOR-CON M) extended release tablet 40 mEqJump to med 40 mEq, Oral, PRN, Starting on 04/23/23 at 1325, Until Discontinued, Potassium Replacement
May give alternative linked oral order (ordered as effervescent, packet, or liquid solution) if patient unable to tolerate tablet. K Lab Repla cemen t Action 3.1 to 3.5 40 mEq ORAL x 1 Under 3.1 Refer to IV replacement protocol Recheck K level in AM. Protocol not for use in patients with CrCl less than 30 mL/min. Do not crush, chew, or suck on tablet. Tablet may also be broken in half and each half swallowed separately.
Or potassium bicarb-citric acid (EFFER-K) effervescent tablet 40 mEqJump to med 40 mEq, Oral, PRN, Starting on 04/23/23 at 1325, Until Discontinued, Per Potassium Replacement Protocol
Administer as alternative if patient unable to tolerate oral tablet. K Lab Repla cemen t Action 3.1 to 3.5 40 mEq ORAL x 1 Under 3.1 Refer to IV replacement protocol Recheck K level in AM. Protocol not for use in patients with CrCl less than 30 mL/min. Do not chew or crush. Dissolve flavored tablets completely in 3 to 4 ounces of cold water; unflavored tablets may be dissolved in 3 to 4 ounces of cold juice. Patient to sip slowly over a 5 to 10 minute period. May further dilute if GI adverse effects occur.
Or potassium chloride 10 mEq/100 mL IVPB (Peripheral Line)Jump to med 10 mEq, IntraVENous, PRN, Starting on 04/23/23 at 1325, Until Discontinued, at 100 mL/hr, Per Potassium Replacement Protocol
K Lab Replacement Action 2.7-3.0 10 mEeq IVPB x 6 doses &n bsp;& nbsp; (60 mEq Total) <2.7 CALL PHYSICIAN and &n bsp;& nbsp; 10 mEq IVPB x 6 doses &n bsp;& nbsp; (60 mEq Total) Infuse at 10 mEq/hr. Repeat potassium lab 1 hour after final administration. Protocol not for use in patients with CrCl less than 30 mL/min.
FOR RECORDS PERTAINING TO PATIENTS WHO ARE OR HAVE BEEN ENROLLED IN A CHEMICAL DEPENDENCY/SUBSTANCEABUSE PROGRAM, SOME INFORMATION MAY BE OMITTED. This clinical summary was aggregated from multiple sources. Caution should be exercised in using it in the provision of clinical care. This summary normalizes information from multiple sources, and as a consequence, information in this document may materially change the coding, format and clinical context of patient data. In addition, data may be omitted in some cases. CLINICAL DECISIONS SHOULD BE BASED ON THE PRIMARY CLINICAL RECORDS. [facility]. provides no warranty or guarantee of the accuracy or completeness of information in this document.
[2023-05-22 14:16] LABS: Basophils Absolute Auto 0.1 10^3/uL (0.0-0.1); Basophils Percent Auto 0.6 % (0.2-2.0); Eosinophils Absolute Auto 0.2 10^3/uL (0.0-0.7); Hematocrit 25.7 % (36.0-48.0); Hemoglobin 7.5 g/dL (12.0-16.0); Immature Granulocytes Abs Auto 0.03 10^3/uL (0.00-0.03); Immature Granulocytes Pct Auto 0.3 % (0.0-0.5); Lymphocytes Absolute Auto 1.5 10^3/uL (1.2-3.8); Lymphocytes Percent Auto 17.1 % (20.5-60.0); Mean Corpuscular HGB Conc 29.2 g/dL (29.9-35.2); Mean Corpuscular Hemoglobin 24.6 pg (26.7-34.0); Mean Corpuscular Volume 84.3 fL (81.0-99.0); Mean Platelet Volume 11.3 fL (9.5-13.5); Monocytes Absolute Auto 0.5 10^3/uL (0.3-0.8); Monocytes Percent Auto 5.2 % (1.7-12.0); Neutrophils Absolute Auto 6.5 10^3/uL (1.4-6.5); Neutrophils Percent Auto 74.8 % (43.0-75.0); Platelet Count 366 10^3/uL (150-450); Red Blood Count 3.05 10^6/uL (4.20-5.40); Red Cell Distribution Width 17.2 % (11.0-15.0); White Blood Count 8.6 10^3/uL (4.0-11.0)
[2023-05-22 14:25] LABS: Anion Gap 14.9; BUN Creatinine Ratio 13.2; Calcium 8.4 mg/dL (8.5-10.1); Carbon Dioxide 24.5 mmol/L (21.0-32.0); Chloride 103 mmol/L (98-107); Estimated GFR (African America >60 (>=60); Estimated GFR (Non-African Ame >60 (>=60); Glucose 234 mg/dL (74-106); Potassium 3.4 mmol/L (3.5-5.1); Sodium 139 mmol/L (136-145)
[2023-05-22 15:22] LABS: INR 0.99; Partial Thromboplastin Time 28.8 sec (22.3-36.2); Prothrombin Time 10.5 sec (9.0-11.6)
== END 2023-05-22 13:26 | disposition home or self-care (01) ==
LOC: PST 13:26
PROVIDERS: PCP Family Medicine; Visit Provider Surgery
DX: Z01.812 Encounter for preprocedural laboratory examination (principal); C25.9 Malignant neoplasm of pancreas, unspecified
CPT/HCPCS: 80048; 85025; 85610; 85730

== ENCOUNTER 2023-05-24 08:15 | Day surgery (SDC) | payer OTHER, SELFPAY ==
[2023-05-22 14:00] VITALS: BP 146/59; PULSE 82; RESP 20; TEMP 36.3; O2SAT 99; BMI 36.5
[2023-05-24] VITALS (9 sets, daily range): BP systolic 105–152; BP diastolic 35–77; PULSE 58–79; RESP 13–24; TEMP 36.5; O2SAT 90–96; BMI 36.5
--- NOTE | 2023-05-24 | OP_ITS ---
OPERATION DATE: 05/24/2023 PREOPERATIVE DIAGNOSIS: Pancreatic cancer, need for secure central access for chemotherapy. POSTOPERATIVE DIAGNOSIS: Pancreatic cancer, need for secure central access for chemotherapy. PROCEDURE: Right external jugular Infusaport insertion. SURGEON: Avinash Rodriguez M.D. ANESTHESIA: General with laryngeal mask airway. ESTIMATED BLOOD LOSS: Less than 10 mL. INDICATIONS AND CONSENT: Patient is a 62-year-old female recently diagnosed with pancreatic cancer. She requires secure central line specifically for chemotherapy. Indications, risks, benefits, alternatives of proceeding with Infusaport insertion were explained extensively to the patient, including the risks of bleeding, infection, scarring, pain, pneumothorax, blood clot, catheter fracture, need for further surgery or port removal. All of her questions were answered. Informed consent was obtained. PROCEDURE: Patient brought to the operating room, placed in the supine position. General anesthesia was induced. She was prepped and draped in the usual sterile fashion. She was placed in the Trendelenburg position. A transverse incision was made over the long axis of the right external jugular vein in the area of the skin crease and carried down through subcutaneous tissue using sharp dissection as well as electrocautery. The platysma was divided. The external jugular vein was isolated between two 2-0 Vicryl ties. The cephalad tie was tied down. Venotomy was then made with a #11 blade. Preflushed catheter was then inserted, into the external jugular and adjusted so it was in good position in the distal SVC at the level of the timothy. This was using fluoroscopy. Catheter aspirated blood easily and was then flushed with saline. Distal tie was tied on over the catheter and external jugular. Attention was then turned to the chest wall, where an area below the clavicle, to the right of the sternum was used for the port. An oblique incision was made in the skin and carried down through subcutaneous tissue using sharp dissection as well as electrocautery. A pocket was created above the pectoralis fascia. Some subcutaneous fat was excised. The catheter was then tunneled from the neck incision to the chest wall incision. It was then trimmed and attached to the preflushed port. Port aspirated blood easily and was then flushed with heparinized saline. Flush was checked once again. The catheter was noted to be in good position with no kinking or twisting along its course. The port was then secured to the pectoralis fascia using interrupted 2-0 Prolene sutures. The incisions were then closed in layers with 3-0 Monocryl subcutaneous sutures and 4-0 Monocryl subcuticular suture. Skin glue was applied as well as sterile pressure dressings. Sponge and needle counts were correct x2 per nursing personnel. Patient tolerated procedure well, was sent to recovery room in good condition, where a portable chest x-ray is pending at the time of this dictation. CC: Dr. Lui SEGUNDO
--- NOTE | 2023-05-24 | FL_ITS ---
[address] [address] Patient Name: VENANCIO BERNAL MRN: [id number] date: 1960 Sex: F Assigned Patient Location: SURGOUT Current Patient Location: [facility] Accession/Order Number: [id number] Exam Date: 05/24/2023 09:57 Report Date: 05/25/2023 10:03 At the request of: REID SHIPLEY Procedure: FL fluoroscopy <1hr NON-READ EXAM: FL fluoroscopy <1hr NON-READ HISTORY: TECHNIQUE: FINDINGS: Please see Operative Report. Electronically authenticated by: RADIOLOGIST NO Date: 05/25/2023 10:03
--- OUTSIDE RECORDS SUMMARY | 2023-05-24 08:30 | XMS_ITS | CCD ---
Author Name Unknown Address [address] [place] [address] Organization [facility] Care Team Providers Care Fisher Line Name Role Phone CHARMAINE SETH Admitting Unavailable [...] Attending Provider Esau Riddle. Primary Care Physician [phone] MD Luc Vargas Attending Provider MD Esau Riddle Primary Care Provider MD Luc Vargas Admit Provider MD Reyes Hamilton Other Provider [phone] COLE MINAYA Attending Unavailable COLE MINAYA Referring Unavailable DOLCOLE HIDALGO Attending Unavailable DOLCOLE HIDALGO Attending Unavailable DOLCOLE HIDALGO Attending Unavailable COLE MINAYA Attending Unavailable Esau Riddle MD Primary Care Provider Esau Riddle MD Primary Care Provider Luc Vargas Admitting Unavailable Luc Vargas Attending [...] Attending Unavailable ESAU RIDDLE Primary Care Unavailable LUC TONY P Attending Unavailable SHAILESH IMRANDA Admitting Unavailable TY LEDESMA Referring Unavailable ESAU RIDDLE Primary Care Unavailable ANGEL BURROWS Consulting Unavailable KARIN CRONIN Consulting Unavailable REID FLORES Consulting Unavailable DONNIE ISRAEL Attending Unavailable ESAU RIDDLE Primary Care Unavailable NONE, XXXX Referring Unavailable Feilx Jolly. Attending Unavaila Felix Howell Attending Unavaila MD Esau Mo Referring Unavailable MD Esau Riddle Attending Unavailable MD Esau Riddle Attending Unavailable MD Esau Riddle Attending Unavailable MD Esau Riddle Attending Unavailable MD Esau Riddle Attending Unavailable MD Esau Riddle Attending Unavailable MD Esau Riddle Attending Unavailable MD Esau Riddle Attending Unavailable MD Esau Riddle Attending Unavailable Nina, Candis L Attending Unavailable Felix Jolly. Admitting Unavaila ble Felix Jolly. Referring Unavaila ble Felix Jolly Attending Unavaila MD Esau Mo Admitting Unavailable NILReid Velázquez R Attending Unavailable MD Esau Riddle Attending Unavailable YUNI MAST Attending Unavailable MD Esau Riddle Attending Unavailable MD Esau Riddle Attending Unavailable STANG, CLINICAL SCIENTIST Radha L Attending Unavailable STANG, CLINICAL SCIENTIST Radha L Admitting Unavailable NONE, XXXX Referring Unavailable Felix Jolly. Attending Unavaila ble NONE, XXXX Referring Unavailable Felix Jolly Admitting Unavaila ble Felix Jolly. Referring Unavaila ble Felix Jolly Attending Unavaila ble Cole Minaya Admitting Unavailable DolceoCle Referring Unavailable DolCole hidalgo Attending Unavailable Adamowdarío, Francine Admitting Unavailable Adamowdarío, Francine Referring Unavailable Cornell, Francine Attending Unavailable MD Esau Riddle Attending Unavailable Adamowicz, Francine Attending Unavailable Adamowicz, Francine Admitting Unavailable DolceCole Attending Unavailable DolceCole Admitting Unavailable DolceCole Admitting Unavailable DolceCole Attending Unavailable Kendra Ortega Referring Unavailabl e Cornell, Francine Attending Unavailable Alejandro Gongora Attending Unavailable BETHANY BAKER Attending Unavailable Cornell, Francine Attending Unavailable MD Esau Riddle Referring Unavailable Francine Sarabia Attending Unavailable MD Esau Riddle Referring Unavailable Felix Jolly Attending Unavaila tai Allergies Allergy Classification Reported Allergen(s) Allergy Type Date of Onset Reaction(s) Facility Sulfonamides (antibiotic) (1 source) Sulfonamides (Antibiotic) Drug Allergy 1 [facility] Repository (20 sources) Albuterol; Translations: [albuterol] Drug Allergy 2 Severe (severity modifier) (qualifier value), Palpitations, Other [facility] (1 source) Albuterol Drug Allergy [facility] Rep[facility] (1 source) Sulfonamides (Antibiotic) Drug allergy (disorder) 5 [facility] Repository (14 sources) Sulfonamides (Antibiotic); Translations: [sulfa drugs] Drug allergy Mild (qualifier value) [facility] (6 sources) Sulfonamides (Antibiotic); Translations: [Sulfa (Sulfonamide Antibiotics)] Allergy to substance 3 Angioedema, Rash, Shortness of breath [facility] (1 source) Sulfonamides (Antibiotic) Propensity to adverse reactions to drug 4 Shortness Of Breath, Angioedema [facility] (1 source) Albuterol Drug Allergy 4 [facility] Repository Medications Current Medications Medication Drug Class(es) [...] les th once daily aspirin 81 mg Oral EC Tab 81 mg = 1 tab(s), Oral, Daily, Refills(s) 0 Start Date: 06/17/22 Status: Ordered End: 04-28-2023 take 1 tablet by mouth once daily aspirin 81 MG chewable tablet Take 1 tablet by mouth daily 0 04/28/2023 Discontinued Baby Aspirin Act tristan atorvastatin 20 mg oral tablet (20 sources) HMG-CoA Reductase Inhibitor Start: 06-29-2022 take 1 tablet by mouth at bedtime atorvastatin 20 mg Tab 20 mg = 1 tab(s), Oral, Bedtime, # 90 tab(s), Refills(s) 3, [id number], cm, 03/30/23 8:55:00 EST, Height/Length [...] 1 tablet by mouth once daily clopidogrel 75 mg Tab 75 mg = 1 tab(s), Oral, Daily, # 90 tab(s), Refills(s) 3, [id number] 157, cm, 03/30/23 8:55:00 EST, Height/Length Dosing, 91.6, kg, 03/30/23 8:55:00 EST, Weight Dosing Start Date: 04/21/23 Status: Ordered Clopidogrel Bisu lfate Active doxycycline hyclate 100 mg oral capsule (1 source) Tetracycline-class Drug Start: 01-10-2023 End: 01-17-2023 take 1 capsule by mouth twice daily doxycycline hyclate 100 mg Cap 100 mg = 1 cap(s), Oral, BID, X 7 day(s), Refills(s) 0 Start Date: 01/10/23 Stop Date: 01/17/23 Status: Ordered 0.5 ml dulaglutide 1.5 mg/ml auto-injector (20 sources) GLP-1 Receptor Agonist Start: 11-16-2022 inject 0.75 mg by subcutaneous injection every week [facility] Pen 0.75 mg/0.5 mL subcutaneous solution 0.75 mg, SubCutaneous, qWeek, # 4 EA, Refills(s) 2, Pharmacy: [facility]/pharmacy #[id number], 157, cm, 03/30/23 8:55:00 EST, Height/Length Dosing, 91.6, kg, 03/30/23 8:55:00 EST, Weight Dosing Start Date: 04/19/23 Status: Ordered Trulicity Active famotidine 40 mg oral tablet (1 source) Histamine-2 Receptor Antagonist Start: 01-13-2023 End: 01-20-2023 take 1 tablet by mouth once daily at bedtime Pepcid 40 mg Tab 40 mg = 1 tab(s), Oral, Once a day (at bedtime), X 7 day(s), # 7 tab(s), Refills(s) 0, Pharmacy: [facility]/pharmacy #[id number], 157, cm, 01/13/23 13:28:00 EDT, [...] day(s), # 10 tab(s), Refills(s) 0, Pharmacy: [facility]/pharmacy #[id number], 157, cm, 01/13/23 13:28:00 EDT, Height/Length Dosing, 95, kg, 01/13/23 13:28:00 EDT, Weight Dosing Start Date: 01/13/23 Stop Date: 01/23/23 Status: Ordered Freestyle Brady 2 Flash Glucose Monitoring 14 Day System ([place]) (10 sources) Start: 03-22-2023 Freestyle Brady 2 Flash Glucose Monitoring 14 Day System ([place]) Freestyle Brady 2 Flash Glucose Monitoring 14 Day System ([place]), See Instructions, 1 EA, 0, Freestyle Brady Flash Glucose Monitoring 14 Day System ([place]), [facility]/pharmacy #[id number], Supply, 157, cm, 03/22/23 15:05:00 EST, Height/Length Dosing, 94.6, kg, 03/22/23 15:05:00 EST, Weight Dosing Start Date: 03/22/23 Status: Ordered Freestyle Brady 2 Flash Glucose Monitoring 14 Day System (Sensor) (10 sources) Start: 04-04-2023 Freestyle Brady 2 Flash Glucose Monitoring 14 Day System (Sensor) Freestyle Brady 2 Flash Glucose Monitoring 14 Day System (Sensor), See Instructions, 6 EA, 1, Freestyle Brady Flash Glucose Monitoring 14 Day System (Sensor). Replace sensor every 14 days., [facility]/pharmacy #[id number], Supply, 157, cm, 03/30/23 8:55:00 EST, Height/Length Dosing, 91.6, kg, 03/30/23 8:55:00 EST, Weight Dosing Start Date: 04/04/23 Status: Ordered Start: 03-22-2023 Freestyle Libr e 2 Flash Glucose Monitoring 14 Day System (Sensor) Freestyle Brady 2 Flash Glucose Monitoring 14 Day System (Sensor), See Instructions, 6 EA, 0, Freestyle Brady Flash Glucose Monitoring 14 Day System (Sensor). Replace sensor every 14 days., [facility]/pharmacy #[id number], Supply, 157, cm, 03/22/23 15:05:00 EST, Height/Length Dosing, 94.6, kg, 03/22/23 15:05:00 EST, Weight Dosing Start Date: 03/22/23 Status: Ordered glipiZIDE 10 mg oral tablet (20 sources) Sulfonylurea Start: 06-29-2022 take 1 tablet by mouth twice daily glipiZIDE 10 mg Tab 10 mg = 1 tab(s), Oral, BID, # 180 tab(s), Refills(s) 3, Pharmacy: [facility]/pharmacy #[id number], 157, cm, 03/30/23 8:55:00 EST, Height/Length Dosing, 91.6, kg, 03/30/23 8:55:00 EST, Weight Dosing Start Date: 04/21/23 Status: Ordered glipiZIDE Active glucagon (rdna) 1 mg injection (1 source) Antihypoglycemic Agent Start: 04-26-2023 glucago n injection 1 mg 1000 ml glucose 100 mg/ml injection (3 sources) Start: 04-26-2023 dextrose 10 % infusion Start: 04-26-2023 dextrose bolus 10% 125 mL Start: 04-26-2023 glucose chewab le tablet 16 g 3 ml insulin glargine 100 un t/ml pen injector (20 sources) Insulin Analog Start: 05-22-2023 Start: 04-26-2023 inject 20 [IU] by hendricks bcutaneous injection twice daily 20 Units, SubCUTAneous, 2 [...] 02-17-2023 Start: 01-24-2023 Start: 01-03-2023 Lantus Active 3 ml insulin lispro 100 unt/ ml pen injector (17 sources) Insulin Analog Start: 05-22-2023 Start: 04-24-2023 End: 04-26-2023 insulin lispro (HUMALOG) [...] day., # 15 mL, Refills(s) 0, Pharmacy: [facility]/pharmacy #[id number], 157, cm, 03/22/23 15:05:00 EST, Height/Length Dosing, [...] by mouth once daily lisinopril 30 mg Tab 30 mg = 1 tab(s), Oral, Daily, # 90 tab(s), Refills(s) 3, Pharmacy: [facility]/pharmacy #[id number], 157, cm, 03/30/23 8:55:00 EST, Height/Length Dosing, 91.6, kg, 03/30/23 8:55:00 EST, Weight Dosing Start Date: 04/21/23 Status: Ordered Lisinopril Activ e 100 ml magnesium sulfate [...] 12:00am Start: 10-17-2022 take 2 tablets by [facility] twice daily MetFORMIN (Eqv-Glucophage XR) 500 mg oral tablet, extended release See Instructions, TAKE 2 TABLETS BY MOUTH TWICE A DAY, # 360 tab(s), Refills(s) 0, Pharmacy: [id number], 157, cm, 03/30/23 8:55:00 EST, Height/Length Dosing, 91.6, kg, 03/30/23 8:55:00 EST, Weight Dosing Start Date: 04/14/23 Status: Ordered take 2 tablets by [facility] twice daily metFORMIN (GLUCOPHAGE-XR) 500 MG extended release tablet Take 2 tablets by mouth 2 times daily 0 Active metFORMIN HCl Ac tive metoprolol tartrate 100 mg oral tablet (20 sources) beta-Adrenergic Nayan Start: 10-06-2022 take 1 tablet by mouth twice daily metoprolol tartrate 100 mg Tab 100 mg = 1 tab(s), Oral, BID, # 180 tab(s), Refills(s) 3, [id number] 157.5, cm, 08/17/22 13:22:00 EDT, Height/Length Dosing, 97.1, kg, 08/17/22 13:22:00 EDT, Weight Dosing Start Date: 10/06/22 Status: Ordered Metoprolol Tartr ate Active 1 ml morphine sulfate 4 mg/ml injection (1 source) Opioid Agonist Start: 04-23-2023 morphine sulfate (PF) injection 4 mg mupirocin 0.02 mg/mg topical ointment (2 sources) RNA Synthetase Inhibitor Antibacterial Start: 03-01-2023 Mupirocin Active APPLIC TOPICAL March 01, 2023 12:00am pantoprazole 40 mg delayed release oral tablet (13 sources) Proton Pump Inhibitor Start: 05-23-2023 take 1 tablet by mouth twice daily Pantoprazole [address] Tab 40 mg, Oral, BID, # 180 tab(s), Refills(s) 0, [id number] 157, cm, 05/18/23 9:43:00 EST, Height/Length Dosing, 92.8, kg, 05/18/23 9:43:00 EST, Weight Dosing Start Date: 05/23/23 Status: Ordered Start: 05-02-2023 take 1 tablet by les th once daily before mealtime pantoprazole (ProtoNix) 40 [...] day(s), # 12 tab(s), Refills(s) 0, Pharmacy: [facility]/pharmacy #[id number], 157, cm, 01/13/23 13:28:00 EDT, [...] 40 mg, SubCUTAneous, DAILY, First dose on 04/23/23 at 1345, Until Discontinued Indication of Use: [...] tablet by les th once daily furosemide 40 mg Tab 40 mg = 1 tab(s), Oral, Daily, # 90 tab(s), Refills(s) 3, Pharmacy: [facility]/pharmacy #[id number], 157, cm, 03/30/23 8:55:00 EST, Height/Length Dosing, 91.6, kg, 03/30/23 8:55:00 EST, Weight Dosing Start Date: 04/21/23 Status: Ordered Furosemide Activ e gadoteridol (PROHANCE) injection 16 mL (1 source) Start: 04-24-2023 End: 04-24-2023 gadoteridol (PROHANCE) injection 16 mL 500 ml glucose 50 mg/ml / potassium chloride 0.02 meq/ml / sodium chloride 4.5 mg/ml injection (1 source) Start: 04-23-2023 End: 04-24-2023 IntraVENous, at 125 mL/hr, CONTINUOUS, Starting on Mon04/23/23 at 1345 insulin, regular, human 100 unt/ml injectable solution (1 source) Insulin Start: 04-25-2023 End: 04-25-2023 insulin regular (HUMULIN R;NOVOLIN R) injection 6 Units Start: 04-25-2023 End: 04-25-2023 insulin regular (HUMULIN R;N OVOLIN R) injection 6 Units iopamidol (ISOVUE-370) 76 % injection 75 mL (1 source) Start: 04-24-2023 End: 04-24-2023 iopamidol (ISOVUE-370) 76 % injection 75 mL polyethylene glycol 3350 21401 mg powder for oral solution (1 source) Osmotic Laxative Start: 04-23-2023 17 g, Oral, D AILY PRN, Starting on Mon04/23/23 at 1325, Until Discontinued, Constipation First line [...] tablet by les th once daily spironolactone 50 mg Tab 50 mg = 1 tab(s), Oral, Daily, # 90 tab(s), Refills(s) 3, Pharmacy: [facility]/pharmacy #[id number], 157, cm, 03/30/23 8:55:00 EST, Height/Length Dosing, 91.6, kg, 03/30/23 8:55:00 EST, Weight Dosing Start Date: 04/21/23 Status: Ordered Spironolactone A ctive Problems Active Problems Problem Classification Problem Date Documented Date Episodic/Chronic Acute cerebrovascular disease (4 sources) Cerebral infarction, unspecified; Translations: [CEREBRAL INFARCTION UNSPECIFIED] Onset: 08-18-2021 Chronic Allergic reactions (15 sources) Allergic disposition; Translations: [Allergy, unspecified, initial encounter] Onset: 01-13-2023 Episodic Biliary tract disease (3 sources) Obstructive hyperbilirubinemia; Translations: [Obstruction of bile duct] Onset: 04-23-2023 04-25-2023 Chronic Cancer of pancreas (16 sources) Malignant tumor of pancreas; Translations: [Malignant tumor of head of pancreas] Onset: 05-08-2023 05-02-2023 Chronic Chronic obstructive pulmonary disease and bronchiectasis (17 sources) Chronic obstructive pulmonary disease, unspecified; Translations: [Chronic obstructive lung disease] Onset: 11-23-2021 07-20-2022 Chronic Congestive heart failure; nonhypertensive (18 sources) Heart failure, unspecified; Translations: [Acute on chronic diastolic (congestive) heart failure] Onset: 08-31-2021 06-17-2022 Chronic Comment on above: acute diastolic Coronary atherosclerosis and other heart disease (3 sources) Atherosclerotic heart disease of [place] coronary artery without angina pectoris; Translations: [Coronary arteriosclerosis] Onset: 08-19-2020 04-23-2023 Chronic Coronary atherosclerosis and other heart disease (1 source) Coronary atherosclerosis and other heart disease; Translations: [Atherosclerosis of [place] arteries of left leg with ulceration of other part of foot] Onset: 03-01-2023 Deficiency and other anemia (13 sources) Anemia; Translations: [Anemia, unspecified] 07-20-2022 Episodic [...] [Hyperlipidemia, unspecified] Onset: 11-03-2021 Chronic Essential hypertension (15 sources) Hypertensive disorder; Translations: [Essential hypertension] Onset: [...] Onset: 10-26-2021 Resolved: 10-26-2021 Chronic Other aftercare (8 sources) Post-discharge follow-up 05-02-2023 Episodic Other circulatory disease (13 sources) History of cerebrovascular accident 08-17-2022 Episodic Other circulatory disease (1 source) Other disorder of circulatory system Episodic Other circulatory disease (1 source) Difficult venous access 05-23-2023 Episodic Other connective tissue disease (1 source) Pain in unspecified foot Episodic Other diseases of veins and lymphatics (1 source) Disorder of vein; Translations: [Other specified disorders of veins] Onset: 05-23-2023 Episodic Other lower respiratory disease (2 sources) Nodule of lung; Translations: [Solitary pulmonary nodule] Onset: 05-19-2023 05-19-2023 Episodic Other lower respiratory disease (2 sources) Solitary pulmonary nodule; Translations: [Solitary pulmonary nodule] Onset: 05-19-2023 Episodic Other nervous system disorders (2 sources) Pain due to neoplastic disease 05-18-2023 Chronic Other nutritional; endocrine; and metabolic disorders (1 source) Obesity, unspecified; Translations: [OBESITY UNSPECIFIED] Onset: 11-23-2021 Chronic Other nutritional; endocrine; and metabolic disorders (1 source) Body mass index (BMI) 40.0-44.9, adult; Translations: [BODY MASS INDEX BMI 40.0-44.9 ADULT] Onset: 11-23-2021 Chronic Other nutritional; endocrine; and metabolic disorders (13 sources) Body mass index 30+ - obesity 01-13-2023 Chronic Other nutritional; endocrine; and metabolic disorders (15 sources) Obesity caused by energy imbalance; Translations: [...] 04-23-2023 Chronic Skin and subcutaneous tissue infections (13 sources) Infection of big toe 01-02-2023 Episodic Substance-related disorders (14 sources) Nicotine dependence, cigarettes, uncomplicated; Translations: [Smoker] Onset: 11-23-2021 06-17-2022 Chronic Comment on above: Added secondary to d ocumentation in Social History. Unclassified (1 source) CONTACT W/AND (SUSP) EXPOS COVID-19; Translations: [CONTACT W/AND (SUSP) EXPOS COVID-19] Onset: 11-23-2021 Unclassified (1 source) Occlusion and stenosis of left carotid artery; Translations: [Occlusion and stenosis of left carotid artery] Onset: 06-27-2022 Unclassified (4 sources) Patient encounter status 05-18-2023 Past or Other Problems Problem Classification Problem Date Documented Da te Episodic/Chronic Deficiency and other anemia (1 source) Anemia, unspecified; Translations: [ANEMIA UNSPECIFIED] Onset: 11-23-2021 Episodic Malaise and fatigue (4 sources) Weakness; Translations: [WEAKNESS] Onset: 08-02-2021 Episodic Other aftercare (1 source) shelter (current) use of aspirin; Translations: [NURSING HOME CURRENT USE OF ASPIRIN] Onset: 11-23-2021 Episodic Other aftercare (1 source) 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; Translations: [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 USE ORAL HYPOGLYCEMIC DX] Onset: 11-23-2021 Episodic Other aftercare (1 source) Other snf (current) drug therapy; Translations: [OTH NURSING HOME CURRENT DRUG THERAPY] Onset: 11-23-2021 Episodic Other circulatory disease (1 source) Personal history of transient ischemic attack (TIA), and cerebral infarction without residual deficits; Translations: [PERS HX TIA AND CI NO RESID DEFICIT] Onset: 11-23-2021 Episodic Respiratory failure; insufficiency; arrest (adult) (1 source) Acute respiratory failure with hypoxia; Translations: [ACUTE RESPIRATORY FAIL W/HYPOXIA] Onset: 11-23-2021 Episodic Unclassified (2 sources) Onset: 05-08-2023 Resolved: 05-19-2023 05-08-2023 Results Test Name Value Interpretation Reference Range Facility Consent for Procedure/Surger yon 05-24-2023 Consent for Procedure/Surgery [id number] [facility] Ambulatory Visit Summaryon 0 05-23-2023 Ambulatory Visit Summary KARUNA NELSON :1960 Visit Date:05/23/2023 Ambulatory Visit Instructions Your Care Team Attending Physician - VIOLETTA MISTRY, Reid Pinto Primary Care Physician - Lui MISTRY, Esau Van This Is Your Medications List Contact prescribing physician if questions or concerns Misc Prescription (Freestyle Brady 2 Flash Glucose Monitoring 14 Day System ([place])) Misc Prescription (Freestyle Brady 2 Flash Glucose [...] Pen 100 units/mL subcutaneous solution) insulin lispro (HumaLOG KwikPen 100 units/mL injectable solution) lisinopril (lisinopril 30 mg Tab) metformin (MetFORMIN (Eqv-Glucophage XR) 500 mg oral tablet, extended release) metoprolol (metoprolol tartrate 100 mg Tab) pantoprazole pantoprazole (Pantoprazole [address] Tab) spironolactone (spironolactone 50 mg Tab) Procedures Performed Cardiac catheterization (05/15/2023), Cardiac catheterization, left heart (05/15/2023), Amputation of left great toe, EGD - esophagogastroduodenosco py, Insertion of stent into bile duct using fluoroscopic guidance, Kidney biopsy, Surgery. Discharge Vitals Heart Rate (Peripheral) 70 Respiratory Rate 16 Blood Pressure 112/54 Height 154.9 cm Height 61 in Weight 91.6 kg Weight 201.52 lb BMI 38.18 What to do next Scheduled Follow-Up Appointments Monday 11:00 AM EST With: Francine Sarabia DO Where: Oncology Monday 2:15 PM EST With: Esau Riddle MD Where: [facility] Insurance Correspondenceon 0 05-23-2023 Insurance Correspondence [id number]#1.00TI [facility] Insurance Correspondence [id number]#1.00TI FF [facility] Lab Reportson 05-23-2023 Lab Reports [id number] [id number]#1.00TIF F [facility] Lab Reports [id number]#1.00TIF F [facility] Lab Reports [id number]#[id number] F [facility] Population Healthon 05-23-19 24 Population Health Case Information Case Priority: None Programs: -- Referral Source: Human Resources Associate Referral Reason: Care coordination Case Type: High Risk Adult Risk Score: -- Case Status: Enrolled (May 01, 2023) Date Assigned: May 01, 2023 Assigned By: Tom Merlos Date Enrolled: May 01, 2023 Assigned Primary Personnel: Tom Merlos Assigned Secondary Personnel: -- Case Physician: Esau Riddle MD Ongoing Advanced care planning/counseling discussion Allergic eczema Anemia BMI 38.0-38.9,adult Cancer related pain Cardiomyopathy due to hypertension, without heart failure Chronic obstructive pulmonary disease Congestive heart failure Controlled type 2 diabetes mellitus with other skin complication, without long-term current use of insulin Diabetic retinopathy Hospital discharge follow-up HTN (hypertension) Hx of cerebral infarction Hypercholesterolemia Infection of great toe Obesity due to excess calories Other specified counseling Pancreas cancer Pancreatic cancer Smoker Historical No qualifying data Procedure/Surgical History Cardiac catheterization (05/15/2023), Cardiac catheterization, left heart (05/15/2023), Surgery. Home Medications aspirin 81 mg Oral EC Tab, 81 mg= 1 tab(s), Oral, Daily atorvastatin 20 mg Tab, 20 mg= 1 tab(s), Oral, Bedtime, 3 refills clopidogrel 75 mg Tab, 75 mg= 1 tab(s), Oral, Daily, 3 refills Freestyle Brady 2 Flash Glucose Monitoring 14 Day System ([place]), See Instructions Freestyle Brady 2 Flash Glucose [...] Goals and Interventions Care Plan Progress Note ADJUNCT TRAINER#4- Patient states she is doing 'alright.' Patient has follow up this afternoon with Dr. Shipley. Patient denies any pain, notes just feels really 'bloaty' after eating. Patient notes she has a lot of gas an has regular BM daily. Patient denies any urinary system issues. Patient states she does have a lung biopsy on 05/26/23 in [place]. Patient notes she is waiting for a call to schedule her port placement for chemo treatments. Patient states her treatments will be q 2 weeks. Patient states she has 9 grandchildren ranging from 2-18 yo. Patient states she wants to see them grow and is just taking things one day at a time. Patient request refill on Protonix (proposal sent to PCP.) Patient denies any further questions or concerns. Communication Events Date: May 23, 2023 Method: Phone call Type: Outbound Duration (min): 9 Outcome: Case discussion Contact Type: family literacy coordinator Contact Name: Tom Merlos Notes: ADJUNCT TRAINER#4- see ADJUNCT TRAINER note. Created By: Tom Merlos Date: May 16, 2023 Method: Phone call Type: Outbound Duration (min): 6 Outcome: Case discussion Contact Type: family literacy coordinator Contact Name: Tom Merlos Notes: ADJUNCT TRAINER#3- spoke with patient, see ft summary note. 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 Created By: Tom Merlos Date: May 01, 2023 Method: Phone call Type: Outbound Duratio (more content not included)... [facility] Insurance Correspondenceon 0 05-22-2023 Insurance Correspondence [id number]#1.00TIF F [facility] Insurance Correspondence [id number]#1.00TI FF [facility] Cardiovascular Reporton 05-04 Cardiovascular Report [id number]#1.00TI FF [facility] Consent for Treatmenton 05-04 Consent for Treatment [id number]#1.00TIF F [facility] ED Pat Eduon 05-18-2023 ED Pat Edu [...] as any vitamins, herbs, eye drops, creams, ivuu-zub-sadixzh medicines, and steroids. ? Any problems you [...] tells you to take them. ? Taking sksu-jio-rhqxlbx medicines, vitamins, herbs, and supplements. General instructions [...] or operat (more content not included)... Normal [facility] Oncology Pancreatic Cancer Pancreatic cancer is a [...] these instructions at home: Medicines ? Take nlui-cli-thmvdgj and prescription medicines only as told by [...] keep your urine pale yellow. ? Take jkyy-jmx-crunpue or prescription medicines. ? Eat foods that [...] having problems eating, see a food and virtual reality specialist (dietitian). ? Do not drink alc (more content not included)... Normal [facility] ED [facility] Oncology Pulmonary Nodule A pulmonary nodule [...] Follow these instructions at home: ? Take hecd-azj-trqlmht and prescription medicines only as told by [...] provider. Document Revised: 10/07/2020 Document Reviewed: 10/07/2020 [employer] Patient Education ? 2022 [employer]. [facility] ONC - Otheron 05-18-2023 ONC - Other [id number]#1.00TIF F [facility] ONC - Other History of Present Illness Background: Visit type and participants: Karuna Nelson is here with her sister Tessy for initial supportive oncology visit. PCP: Esau Riddle MD Summary of oncologic history: 62-year-old woman with hypertensive cardiomyopathy, COPD, recent-onset type 2 diabetes on insulin, peripheral vascular disease with amputation of gangrenous great toe in late March 2023 who presented to [facility] in [place] on 04/23/23 with 2-week history of right [...] done soon. She was also seen by business integration analyst Dr. Jolly and cleared for surgery. Chief [...] a brother, all of whom live in [place]; 2 brothers are . She has 3 children in their 40s, 2 in [place], 1 in [place]; 9 grandchildren ages 2-19. She spends most of her time with one or more of these family members and is especially close to her siblings because her parents moved to [place] as soon as all of the children [...] for potential misuse: none Current use of RETORT FIREMAN-active medications: none Sleep apnea: none known, at risk due to o (more content not included)... Normal [facility] ONC - Other [id number]#1.00T IFF [facility] Oncology Progress Noteon Oncology Progress Note Diagnoses [...] to me by Dr. Yojana Riddle in [place]. Past medical history includes chronic diastolic heart [...] April 23, 2023. She was admitted to [facility] she was found to have obstructive jaundice. [...] her hem (more content not included)... Normal [facility] Patient History Officeon Patient History Office [id number]#1.00TI FF [facility] Patient History Office [id number]#1.00TI FF [facility] Physician Orderon 05-18-2023 Physician Order [id number]#1.00T IFF [facility] Laboratory Outside Office Co pyon 05-17-2023 Laboratory Outside Office Copy [id number]#1.00TIF F [facility] Reference Lab Reporton 05-17 Reference Lab Report [id number]#1.00TI FF [facility] Reference Lab Report [id number]#1.00TI FF [facility] Consent for Procedure/Surger yon 05-16-2023 Consent for Procedure/Surgery [id number]#1.00TI FF [facility] Consent for Treatmenton 05-04 Consent for Treatment [id number]#1.00TIF F [facility] Discharge Instructionson Discharge Instructions [id number]#1.00TI FF [facility] Operative Reporton Operative Report Indication for [...] consent the patient was brought to the Job Press Feeder where sterile prep and drape were administered in usual fashion. Anesthesia was obtained in the right wrist with lidocaine after administration of conscious sedation. A 5/6 slender Terumo sheath was placed in the right radial artery without complication. Nitroglycerin and nicardipine were given via the sheath and heparin was given intravenously. A 5 Libyan JACKE catheter was advanced and selectively engaged [...] end of the procedure without complication. [facility] Comment on above: Result Comment: Elec tronically Signed By: Rik MISTRY, Felix Vann\.br\Date and Time Signed: 05/16/23 12:55 EST [facility] 05-16-19 [facility] Case Information Case Priority: None Programs: -- Referral Source: Human Resources Associate Referral Reason: Care coordination Case Type: High [...] 2 Flash Glucose Monitoring 14 Day System (Elma), See Instructions Freestyle Brady 2 Flash Glucose [...] Goals and Interventions Care Plan Progress Note ADJUNCT TRAINER#3- Patient states she is feeling exhausted. States [...] (min): 6 Outcome: Case discussion Contact Type: family literacy coordinator Contact Name: Tom Merlos Notes: ADJUNCT TRAINER#3- spoke with patient, see ft summary note. 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 Created By: Tom Merlos Date: May 01, 2023 Method: Phone call Type: Outbound Duration (min): 6 Outcome: Case discussion Contact Type: family literacy coordinator Contact Name: Tom Merlos Notes: ADJUNCT TRAINER#1- Spoke with patient for initial ADJUNCT TRAINER call, see ft sumamry note. Created By: Tom Merlos [facility] Consent for Treatmenton 05-04 Consent for Treatment [id number]#1.00TIF F [facility] Inpatient Clinical Summaryon 05-15-2023 Inpatient Clinical Summary [place] [id number] Clinical Summary Person Information: Name: KARUNA NELSON Age: 62 Years : 1960 Sex: Female PCP: Esau Riddle MD Marital Status: Race: White Ethnicity: Non- or Language: South Sudanese Visit Id: Visit Reason: R94.39, I25.10 Speciality: Acuity: Enc Type: Ambulatory/Same Day Surgery Med Service: Surgery Arrival: 05/15/2023 07:21:32 Discharge: Dispo Type: Address: [address] [place] [id number] Provider Notes: Diagnosis: Problems Active Pancreatic cancer [...] 2 Flash Glucose Monitoring 14 Day System (Elma)) Freestyle Brady Flash Glucose Monitoring 14 Day System (Elma). Refills: 0. Misc Prescription (Freestyle Brady 2 [...] Esau Riddle With: Address: When: Felix Jolly [address] [place], [place] [id number] Business (1) 06/09/2023 1:45 PM Comments: Keep scheduled appointment Type Location Start Finish State ONC Supportive Care New (FT) FT.ONCOLOGY 05/16/2023 11:00 AM 05/16/2023 12:00 PM Confirmed ONC Office Visit 30 (FT) FT.ONCOLOGY 05/18/2023 9:30 AM 05/18/2023 10:00 AM Confirmed FM Open [facility] [place] 06/06/2023 2:15 PM 06/06/2023 2:30 PM Confirmed Cardiology Follow Up (FT) FT.Cardiology Clinic [place] 06/09/2023 2:15 PM 06/09/2023 2:30 PM Confirmed Patient Education Information: CV - Cardiovascular Discharge Instructions (Custom) [facility] Inpatient Patient Summaryon 05-15-2023 Inpatient Patient Summary [address] [address] Patient Discharge Instructions PERSON INFORMATION [...] None Follow up: With: Address: When: Esau Lui With: Address: When: Felix Jolly [address] [place] [address] [place] [address] Business (1) 06/09/2023 1:45 PM Comments: Keep scheduled appointment In the event that this physician does not participate in your insurance network, please consult with your insurance company to find a nearby participating provider. Type Location Start Finish State ONC Supportive Care New (FT) FT.ONCOLOGY 05/16/2023 11:00 AM 05/16/2023 12:00 PM Confirmed ONC Office Visit 30 (FT) FT.ONCOLOGY 05/18/2023 9:30 AM 05/18/2023 10:00 AM Confirmed FM Open [facility] [place] 06/06/2023 2:15 PM 06/06/2023 2:30 PM Confirmed Cardiology Follow Up (FT) [facility] [place] 06/09/2023 2:15 PM 06/09/2023 2:30 PM Confirmed [...] 2 Flash Glucose Monitoring 14 Day System (Elma)) Freestyle Brady Flash Glucose Monitoring 14 Day System (Elma). Refills: 0. Last Dose: _Next Dose: _ [...] _ spironolactone (s (more content not included)... [facility] Pathology Noteon 05-15-2023 Pathology Note [id number]#1.00TIF F [facility] Patient Education - Texton 0 05-15-2023 Patient Education - Text [place], [place] CARDIOVASCULAR DISCHARGE INSTRUCTIONS Diet: ? Resume [...] you are interested in smoking cessation, contact [facility] at [phone], ext. [phone]. ? In the event you are unable to reach your physician, please call Hardik at [phone] and the carton forming machine operator will assist you. Seek Immediate Medical Care for: ? Bleeding: Apply continuous pressure to the site and Call 911. ? Should the arm or leg become cold, numb, blue or white call your physician immediately. ? Signs of infection are redness, warmth, swelling, increased tenderness, colored drainage, fever or chills ? Chest pain ? [facility] Outside Oncologyon Outside Oncology [id number] [id number]#1.00TIF F [facility] [place] PET w/ CT Scan Skull Base [...] mA system for dose reduction. Ordering Provider: Francine Sarabia FINAL REPORT Dictated: 05/11/2023 2:22 pm Jean-Claude Hansen M.D. Signed (Electronic Signature): 05/11/2023 2:22 pm Signed by: Jean-Claude Hansen M.D. Transcribed by: WES Technologist: TIM Technical Comments Dose (mCi F-18 FDG): 13.3 Imagi (more content not included)... [facility] RAD - MISCon 05-11-2023 [facility] MIS [id number]#1.00TIF F [facility] RAD MIS [id number]#1.00TIF F [facility] Consent for Treatmenton Consent for Treatment [id number]#1.00TIF F [facility] Physician Orderon 05-10-2023 Physician Order [id number]#1.00TIF F [facility] Physician Orderon 05-09-2023 Physician Order [id number]#1.00TIF F [facility] Population Healthon 05-09-19 Population Health Case Information Case Priority: None Programs: -- Referral Source: Human Resources Associate Referral Reason: Care coordination Case Type: High [...] 2 Flash Glucose Monitoring 14 Day System (Elma), See Instructions Freestyle Brady 2 Flash Glucose [...] Goals and Interventions Care Plan Progress Note ADJUNCT TRAINER#2- patient states she is doing okay, taking [...] (min): 10 Outcome: Case discussion Contact Type: family literacy coordinator Contact Name: Tom Merlos Notes: ADJUNCT TRAINER#2- spoke with patient for crew trainer, see ft summary note. Created By: Tom Merlos Date: May 01, 2023 Method: Phone call Type: Outbound Duration (min): 6 Outcome: Case discussion Contact Type: family literacy coordinator Contact Name: Tom Merlos Notes: ADJUNCT TRAINER#1- Spoke with patient for initial ADJUNCT TRAINER call, see ft yvan note. Created By: Tom Merlos [facility] CBC panel Auto (Bld)on 05-08 Erythrocyte distribution width (RBC) [Ratio] 18.6 % High 11.5-14.5 [facility] Comment on above: Performed By: #### 5 8410-2 #### SEKOU ORDONEZ ([id number]) [facility] ([facility]) [address] [place] [address] 73872 Hematocrit (Bld) [Volume fraction] 29.4 % Low 36.0-46.0 [facility] Comment on above: Performed By: #### 5 8410-2 #### SEKOU ORDONEZ ([id number]) [facility] ([facility]) [address] [place] [address] 86382 Hemoglobin (Bld) [Mass/Vol] 8.6 g/dL Low 12.0-16.0 [facility] Comment on above: Performed By: #### 5 8410-2 #### SEKOU ORDONEZ ([id number]) [facility] ([facility]) [address] [place] [address] 35742 MCH (RBC) [Entitic mass] 25.8 pg Low 26.0-34.0 [facility] Comment on above: Performed By: #### 5 8410-2 #### SEKOU ORDONEZ ([id number]) [facility] ([facility]) [address] [place] [address] 67871 MCHC (RBC) [Mass/Vol] 29.3 g/dL Low 32.0-36.0 [facility] Comment on above: Performed By: #### 5 8410-2 #### SEKOU ORDONEZ ([id number]) [facility] ([facility]) [address] [place] [address] 06684 MCV (RBC) [Entitic vol] 88 fL Normal 80-100 [facility] Comment on above: Performed By: #### 5 8410-2 #### SEKOU ORDONEZ ([id number]) [facility] ([facility]) [address] [place] [address] 64107 Nucleated RBC/100 WBC (Bld) [Ratio] 0.0 /100 WBCs Normal 0.0-0.0 [facility] Comment on above: Performed By: #### 5 8410-2 #### SEKOU ORDONEZ ([id number]) [facility] ([facility]) [address] [place] [address] 69013 Platelets (Bld) [#/Vol] 385 x10*3/uL Normal 150-450 [facility] Comment on above: Performed By: #### 5 8410-2 #### SEKOU ORDONEZ ([id number]) [facility] ([facility]) [address] [place] [address] 43118 RBC (Bld) [#/Vol] 3.33 x10*6/uL Low 4.00-5.20 [facility] Comment on above: Performed By: #### 5 8410-2 #### SEKOU ORDONEZ ([id number]) [facility] ([facility]) [address] [place] [address] 31296 WBC (Bld) [#/Vol] 11.9 x10*3/uL High 4.4-11.3 [facility] Comment on above: Performed By: #### 5 8410-2 #### SEKOU ORDONEZ ([id number]) [facility] ([facility]) [address] [place] [address] 32397 Cancer Ag 19-9on 05-08-2023 Cancer Ag 19-9 Qn 3150.37 [arb'U]/mL High <35.00 [facility] Comment on above: Order Comment: CA 19 -9 testing is performed by chemiluminescent immunoassay using the MuseStorm. Values obtained with different analytic methods cannot [...] By: #### 2 4108-3 #### FUENTES Velázquez ([id number]) [facility] ([facility]) [address] [place] [address] Comprehensive metabolic 2000 panelon 05-08-2023 Albumin BCP dye [Mass/Vol] 3.2 g/dL Low 3.4-5.0 [facility] Comment on above: Performed By: #### 2 4323-8 #### SEKOU ORDONEZ ([id number]) [facility] ([facility]) [address] [place] [address] 55380 ALP [Catalytic activity/Vol] 190 U/L High 33-136 [facility] Comment on above: Performed By: #### 2 4323-8 #### SEKOU ORDONEZ ([id number]) [facility] ([facility]) [address] [place] [address] 45475 ALT With P-5'-P [Catalytic activity/Vol] 17 U/L Normal 7-45 [facility] Comment on above: Result Comment: Olivia ents treated with Sulfasalazine may generate falsely decreased results for ALT. Performed By: #### 2 4323-8 #### BRYCEIBELILAW GUERRERODEIRDRE MABEL ([id number]) [facility] ([facility]) [address] [place] [address] 50343 Anion gap [Moles/Vol] 15 mmol/L Normal 10-20 [facility] Comment on above: Performed By: #### 2 4323-8 #### BRYCEIBLUIZ GUERRERO RIO MABEL ([id number]) [facility] ([facility]) [address] [place] [address] 21010 AST With P-5'-P [Catalytic activity/Vol] 14 U/L Normal 9-39 [facility] Comment on above: Performed By: #### 2 4323-8 #### SEKOU ORDONEZ ([id number]) [facility] ([facility]) [address] [place] [address] 76162 Bilirubin [Mass/Vol] 1.3 mg/dL High 0.0-1.2 [facility] Comment on above: Performed By: #### 2 4323-8 #### SEKOU ORDONEZ ([id number]) [facility] ([facility]) [address] [place] [address] 66846 Calcium [Mass/Vol] 8.4 mg/dL Low 8.6-10.3 [facility] Comment on above: Performed By: #### 2 4323-8 #### SEKOU ORDONEZ ([id number]) [facility] ([facility]) [address] [place] [address] 78057 Chloride [Moles/Vol] 102 mmol/L Normal 98-107 [facility] Comment on above: Performed By: #### 2 4323-8 #### SEKOU ORDONEZ ([id number]) [facility] ([facility]) [address] [place] [address] 29651 CO2 [Moles/Vol] 25 mmol/L Normal 21-32 [facility] Comment on above: Performed By: #### 2 4323-8 #### SEKOU ORDONEZ ([id number]) [facility] ([facility]) [address] [place] [address] 38430 Creatinine [Mass/Vol] 0.76 mg/dL Normal 0.50-1.05 [facility] Comment on above: Performed By: #### 2 4323-8 #### SEKOU ORDONEZ ([id number]) [facility] ([facility]) [address] [place] [address] 28855 Glomerular filtration rate/1.73 sq M.predicted 88 mL/min/1.73m*2 Normal >60 [facility] Comment on above: Result Comment: Calc ulations of estimated GFR are performed using the 2021 CKD-EPI Study Refit equation without the race variable for the IDMS-Traceable creatinine methods. https://jasn.asnjournals.org/content//ASN.146313 4091 Performed By: #### 2 4323-8 #### SEKOU ORDONEZ ([id number]) [facility] ([facility]) [address] [place] [address] 58696 Glucose [Mass/Vol] 115 mg/dL High 74-99 [facility] Comment on above: Performed By: #### 2 4323-8 #### SEKOU ORDONEZ ([id number]) [facility] ([facility]) [address] [place] [address] 59648 Potassium [Moles/Vol] 4.4 mmol/L Normal 3.5-5.3 [facility] Comment on above: Performed By: #### 2 4323-8 #### SEKOU GUERRERO RIO MABEL ([id number]) [facility] ([facility]) [address] [place] [address] 41937 Protein [Mass/Vol] 6.1 g/dL Low 6.4-8.2 [facility] Comment on above: Performed By: #### 2 4323-8 #### SEKOU ORDONEZ ([id number]) [facility] ([facility]) [address] [place] [address] 83814 Sodium [Moles/Vol] 138 mmol/L Normal 136-145 [facility] Comment on above: Performed By: #### 2 4323-8 #### BRYCEIBELILAW GUERRERODEIRDRE MABEL ([id number]) [facility] ([facility]) [address] [place] [address] 32340 Urea nitrogen [Mass/Vol] 14 mg/dL Normal 6-23 [facility] Comment on above: Performed By: #### 2 4323-8 #### BRYCEIBELILAW DEIRDRE MABEL ([id number]) [facility] ([facility]) [address] [place] [address] 74501 HbA1c (Bld) [Mass fraction]o n 02-05-2024 Average glucose Estimated from glycated hemoglobin (Bld) [Mass/Vol] 163 mg/dL Normal Not Established [facility] Comment on above: Order Comment: Diagn osis of Diabetes-Adults Non-Diabetic: < or = 5.6% Increased risk for developing diabetes: 5.7-6.4% Diagnostic of diabetes: > or = 6.5% Monitoring of Diabetes Age (y)....................... Therapeutic Goal (%) Adults: >18.........................<7.0 Pediatrics: 13-18...................<7.5 Pediatrics: 7-12....................<8.0 Pediatrics: 0-6..................... 7.5-8.5 [employer]. Diabetes Care 33(S1), Apr 2009 Performed By: #### 4 548-4 #### FUENTES Velázquez ([id number]) [facility] ([facility]) [address] [place] [address] Heart and Vascular Office/Cl inic Noteon 05-08-2023 Heart and Vascular Office/Clinic Note Chief Complaint here for test results History of Present Illness Karuna Nelson is a 62-year-old female who presents today for a follow-up evaluation of hypertension, hyperlipidemia, diabetes, peripheral arterial disease, and recent CLINICAL OPERATIONS CONSULTANT. She is accompanied by an adult female. [...] on a table, she was taken to [facility] and later transferred to [facility]. Initial considerations at the hospital were that a gallstone might have caused the incident, but subsequent examinations ruled out the presence of a gallstone in her duct. The patient has a nodule on her lung. A PET scan is scheduled for 05/10/2023. A biopsy has been recommended since it was not initially performed at [facility]. The patient is scheduled to see her [...] with voice recognition artificial intelligence software, specifically [employer], [facility] and or [employer]. Substitutions may have occurred due to the inherent limitations of voice recognition and artificial intelligence software. ATTESTATION: Documentation services were performed after patient or guardian consented to allow [employer] to record this visit. PATY account management specialist and provider reviewed before signing. PATY: Salo Mclean Follow-up No qualifying data available Problem List/Past Medical History Ongoing Allergic eczema Anemia BMI 38.0-38.9,adult Cardiomyopathy due to hypertension, without heart failure Chronic obstructive pulmonary disease Congestive heart failure Controlled type 2 diabetes (more content not included)... [facility] Comment on above: Result Comment: Elec tronically Signed By: Rik MISTRY, Felix Vann\.br\Date and Time Signed: 05/08/23 10:11 EST\.br\Electronically Co-Signed By: Salo Mclean\.br\Date and Time Co-Signed: 05/05/23 15:28 EST Hemoglobin A1c/Hemoglobin.to cami 05-08-2023 HbA1c (Bld) [Mass fraction] 7.3 % High see below [facility] Comment on above: Order Comment: Diagn osis of Diabetes-Adults Non-Diabetic: < or = 5.6% Increased risk for developing diabetes: 5.7-6.4% Diagnostic of diabetes: > or = 6.5% Monitoring of Diabetes Age (y)....................... Therapeutic Goal (%) Adults: >18.........................<7.0 Pediatrics: 13-18...................<7.5 Pediatrics: 7-12....................<8.0 Pediatrics: 0-6..................... 7.5-8.5 [employer]. Diabetes Care 33(S1), Apr 2009 Performed By: #### 4 548-4 #### FUENTES Velázquez ([id number]) [facility] ([facility]) [address] [place] [address] Outside Radiologyon 05-08-19 Outside Radiology [id number]#1.00TIF F [facility] PT and aPTT panel Coag (PPP) on 05-08-2023 aPTT Coag (PPP) [Time] 30 s Normal 27-38 [facility] Comment on above: Order Comment: The A PTT is no longer used for monitoring Unfractionated Heparin Therapy. For monitoring Heparin Therapy, use the Heparin Assay. Performed By: #### 3 4529-8 #### SEKOU ORDONEZ ([id number]) [facility] ([facility]) [address] [place] [address] 10491 INR Coag (PPP) [Relative time] 1.0 Normal 0.9-1.1 [facility] Comment on above: Order Comment: The A PTT is no longer used for monitoring Unfractionated Heparin Therapy. For monitoring Heparin Therapy, use the Heparin Assay. Performed By: #### 3 4529-8 #### SEKOU ORDONEZ ([id number]) [facility] ([facility]) [address] [place] [address] 93609 PT Coag (PPP) [Time] 11.7 s Normal 9.8-12.8 [facility] Comment on above: Order Comment: The A PTT is no longer used for monitoring Unfractionated Heparin Therapy. For monitoring Heparin Therapy, use the Heparin Assay. Performed By: #### 3 4529-8 #### SEKOU ORDONEZ ([id number]) [facility] ([facility]) [address] [place] [address] Physician Orderon 05-08-2023 Physician Order [id number] [id number]#1.00TI FF Normal [facility] RAD - MISCon 05-08-2023 RAD - MISC [id number] [id number]#1.00TI FF Normal [facility] Stress EKG Tracingson 2023 Stress EKG Tracings [id number] [id number]#1.00TIF F Normal [facility] CA 19-9on 05-05-2023 Cancer Ag 19-9 Qn 1332 unit/mL High 0-35 [facility] Comment on above: Result Comment: Resu lts confirmed on dilution. [facility] Electrochemiluminescence Immunoassay (ECLIA) Values obtained with different assay methods or kits cannot be used interchangeably. Results cannot be interpreted as absolute evidence of the presence or absence of malignant disease. Performed at: [address] [id number] PhD Pavel Vasquez Performed By: #### 2 393391, 5689475, 95414400, 0507513, 46055570, 3085919, 2758464, 2381195, 0815156, 8450384, 72946403, 4793875, 60624135 ####[facility] [address] [place] [address] Erythropoiet Lvlon Erythropoietin (EPO) Qn 307.2 mIU/mL High 2.6-18.5 [facility] Comment on above: Result Comment: [employer] DxI 800 Immunoassay System Values obtained with different assay methods or kits cannot be used interchangeably. Results cannot be interpreted as absolute evidence of the presence or absence of malignant disease. Performed at: [facility] [id number] [place], [place] [id number] PhD Pavel Vasquez Performed By: #### 2 116999, 9592876, 60183347, 1907387, 45333258, 0139529, 5856619, 7275544, 2201618, 9382048, 62009455, 5557561, 53478094 ####[facility] [address] [place] [address] NM Myocardial Spect Rest/Str ess 1 Dayon [...] (Electronic Signature): 05/05/2023 9:36 am Signed by: RICKY MISTRY, Teodoro Morrison Transcribed by: gurvinder Technologist: TIM Technical Comments Rest Dose (mCi Tc99m Cardiolite): 9 Stress Dose (mCi Tc99M Cardiolite): 29.2 Normal [facility] CBC w/ Auto Diffon 4 Basophil Absolute 0.1 E9/L Normal 0.0-0.2 [facility] Comment on above: Performed By: #### 2 074749, 2505701, 41856179, 9179545, 39458422, 6768392, 5525593, 3987340, 4163820, 9999823, 95796107, 2622977, 69204518 ####[facility] [address] [place] [address] Basophils/100 WBC (Bld) 1.0 % Normal 0.0-2.0 [facility] Comment on above: Performed By: #### 2 248780, 2663350, 16252293, 3850251, 68946568, 0571015, 8503476, 2470351, 4505668, 5780185, 57445097, 2332245, 83402253 ####[facility] [address] [place] [address] Eos Absolute 0.3 E9/L Normal 0.0-0.5 [facility] Comment on above: Performed By: #### 2 509667, 6823993, 20144447, 3749788, 30678824, 0220026, 0605532, 2226853, 7468269, 6141628, 36915270, 2502882, 96244380 ####[facility] [address] [place] [address] Eosinophils/100 WBC (Bld) 3.3 % Normal 0.0-8.0 [facility] Comment on above: Performed By: #### 2 670029, 8889302, 37739668, 0494549, 20637820, 5279927, 6799144, 5809853, 5199049, 0286110, 56637776, 9841557, 29337254 ####[facility] [address] [place] [address] Erythrocyte distribution width (RBC) [Ratio] 19.6 % High 10.9-14.2 [facility] Comment on above: Performed By: #### 2 615789, 0215591, 71314038, 3270257, 90364284, 8782378, 6710371, 9458428, 7838892, 2543043, 81921811, 9038373, 92879547 ####[address] [place] [address] Hematocrit (Bld) [Volume fraction] 26.0 % Low 34.0-46.0 [facility] Comment on above: Performed By: #### 2 035590, 7693414, 61562238, 8347047, 91766273, 2869272, 9864476, 2648328, 0782564, 6867228, 23864402, 0010391, 26789117 ####[address] [address] Hemoglobin (Bld) [Mass/Vol] 8.2 g/dL Low 12.0-16.0 [facility] Comment on above: Performed By: #### 2 362501, 4445416, 65168903, 5444265, 55244447, 4798629, 8017711, 5791375, 0065966, 7638192, 36091818, 5065879, 58796296 ####[facility] [address] [place] [address] Lymph Absolute 2.2 E9/L Normal 1.0-4.0 [facility] Comment on above: Performed By: #### 2 578864, 5191021, 18045477, 6852702, 27097049, 4069327, 5647757, 8516570, 4552548, 2791365, 72115892, 6356064, 36228950 ####[address] [place] [address] Lymphocytes/100 WBC (Bld) 21.3 % Normal 14.0-50.0 [facility] Comment on above: Performed By: #### 2 282846, 8638478, 36465785, 3276367, 55066070, 1937891, 8706228, 7617984, 6749070, 3852537, 48671505, 8885809, 00205732 ####[facility] [address] [place] [address] MCH (RBC) [Entitic mass] 26.8 pg Low 27.0-34.0 [facility] Comment on above: Performed By: #### 2 016302, 0339368, 10762056, 1037153, 25016325, 3272281, 2629687, 5888482, 3155875, 2426589, 72884393, 4129741, 53538287 ####[address] [address] MCHC (RBC) [Mass/Vol] 31.7 g/dL Normal 31.4-36.0 [facility] Comment on above: Performed By: #### 2 636285, 0081659, 54223140, 5467770, 27112341, 0521710, 2418647, 6352580, 6869855, 0858618, 30824228, 4533044, 54759270 ####[address] [address] MCV (RBC) [Entitic vol] 84.7 fL Normal 80.0-100.0 [facility] Comment on above: Performed By: #### 2 240849, 7237395, 75356350, 1002100, 91212998, 1412028, 0279818, 8990743, 0391648, 7677524, 49307991, 0448961, 76914844 ####[facility] [address] [place] [address] Cataño Absolute 0.6 E9/L Normal 0.2-1.0 [facility] Comment on above: Performed By: #### 2 029247, 4818231, 41827853, 9460952, 92442914, 2476628, 1236610, 1948566, 8557166, 5946547, 32722047, 0896293, 70987689 ####[address] [place] [address] Monocytes/100 WBC (Bld) 5.9 % Normal 4.0-14.0 [facility] Comment on above: Performed By: #### 2 789735, 2734554, 50737951, 3848888, 90303974, 3304794, 4239304, 0882182, 5447740, 7782410, 86617402, 1513504, 19553521 ####[address] [address] Neutro Absolute 7.0 E9/L Normal 2.0-7.5 [facility] Comment on above: Performed By: #### 2 442156, 6931879, 97940356, 8154388, 05686815, 7139959, 5340959, 9502029, 3883960, 2538021, 00220663, 4470768, 12263481 ####[address] [address] Neutro Auto 68.5 % Normal 36.0-75.0 [facility] Comment on above: Performed By: #### 2 677849, 4529018, 39719870, 9309626, 38488990, 9904493, 5362245, 3615256, 9592397, 1784474, 99046504, 9780560, 91001840 ####[address] [place] [address] Platelet 305.0 E9/L Normal 150.0-500.0 [facility] Comment on above: Performed By: #### 2 320589, 8961979, 11283388, 1648919, 36550614, 7783305, 7519238, 7301812, 6768295, 9847420, 37927837, 0244788, 11382028 ####[address] [address] Platelet mean volume (Bld) [Entitic vol] 9.0 fL Normal 6.4-10.8 [facility] Comment on above: Performed By: #### 2 510976, 9622584, 18014012, 1017782, 79741778, 8263360, 0414398, 2316577, 3443818, 5440830, 59504124, 4535241, 03871068 ####[facility] [address] [place] [address] RBC 3.0 E12/L Low 4.3-5.9 [facility] Comment on above: Performed By: #### 2 448342, 0876866, 95517667, 5986069, 89052129, 3171258, 6858469, 3394206, 1541768, 8276523, 97252875, 6861892, 83343101 ####[facility] [address] [place] [address] WBC 10.2 E9/L Normal 4.0-11.0 [facility] Comment on above: Performed By: #### 2 395322, 9196656, 02522671, 0429121, 40166127, 4732424, 3964161, 9575202, 3914521, 4774941, 78987780, 4660484, 67745875 ####[facility] [address] [place] [address] CEAon 05-04-2023 CEA 11.3 ng/mL Invalid Interpretation Code [facility] Comment on above: Result Comment: 'NON -SMOKER < 2.5' 'SMOKER < 5.0' The concentration of CEA in a given specimen determined by different manufacturers can vary due to differences in assay methods and reagent specificity. Values obtained with different assay methods cannot be used interchangeably. The methodology used to perform this test was chemiluminescence using [employer]'s Access CEA reagent. Performed By: #### 2 275375, 0636783, 14675298, 7018631, 12149480, 5746543, 1743066, 0845114, 0588318, 4718860, 15954582, 1635460, 67078327 ####[facility] [address] [place] [address] CHEMISTRYOrdered By: SYSTEM SYSTEM on 05-04-2023 Albumin [...] to perform this test was chemiluminescence using [employer]'s Access CEA reagent. Chloride [Moles/Vol] 105 mmol/L [...] 05-04-2023 Albumin [Mass/Vol] 3.1 g/dL Low 3.3-5.0 [facility] Comment on above: Performed By: #### 2 433892, 4654587, 32232989, 2385373, 62375735, 5316324, 9379190, 5989434, 9186389, 3080452, 92490450, 0105353, 56290881 ####[facility] [address] [place] [address] Albumin/Globulin [Mass ratio] 1.0 {ratio} Low 1.1-2.2 [facility] Comment on above: Performed By: #### 2 574213, 3651147, 78254831, 7123447, 95527566, 2288838, 6357650, 8487841, 2973240, 0131846, 38488366, 3479755, 88195861 ####[facility] [address] [place] [address] Alk Phos 251 Int._Unit/L High 21-98 [facility] Comment on above: Performed By: #### 2 322507, 5552346, 78607608, 7906152, 01857939, 3556942, 4417023, 6555426, 8604086, 7191736, 32181112, 5736908, 52818203 ####[facility] [address] [place] [address] ALT 23 Int._Unit/L Normal 6-46 [facility] Comment on above: Performed By: #### 2 169352, 5416690, 77448245, 4681313, 57045094, 7902951, 0741961, 2831358, 8220898, 2053241, 66412241, 0251163, 09712492 ####[address] [place] [address] Anion gap [Moles/Vol] 12 mmol/L Normal 6-16 [facility] Comment on above: Performed By: #### 2 987552, 9361923, 31089313, 0858334, 14415368, 4921338, 2826493, 4734478, 6495782, 8983323, 80978560, 0919245, 75325226 ####[address] [place] [address] AST 13 Int._Unit/L Normal 5-43 [facility] Comment on above: Performed By: #### 2 782850, 7900977, 37641776, 5524578, 34149808, 8197359, 1647282, 1158882, 1836040, 4308279, 92918835, 7538558, 13967792 ####[facility] [address] [place] [address] Bili Total 1.4 mg/dL High 0.0-1.1 [facility] Comment on above: Performed By: #### 2 191183, 4338154, 22552143, 2167284, 58573744, 2563777, 4237860, 9607596, 1556866, 4862347, 85104216, 4464588, 35586500 ####[address] [place] [address] BUN/Creat Ratio 22 No Units High 10-20 [facility] Comment on above: Performed By: #### 2 878064, 7795258, 43741690, 2848825, 80189026, 9453824, 7022391, 1242710, 3904779, 2168456, 56460886, 3981147, 25578307 ####[facility] [address] [place] [address] Calcium [Mass/Vol] 8.4 mg/dL Low 8.9-11.1 [facility] Comment on above: Performed By: #### 2 950215, 0208302, 83217833, 5628672, 44305854, 9023273, 3599829, 9162563, 5377616, 2763427, 47723057, 1540587, 59361956 ####[facility] [address] [place] [address] Chloride [Moles/Vol] 105 mmol/L Normal 101-111 [facility] Comment on above: Performed By: #### 2 916069, 0146613, 77046208, 8143476, 45299773, 6995351, 5371731, 7077617, 1561720, 4889198, 38108284, 7416161, 04212397 ####[facility] [address] [place] [address] CO2 [Moles/Vol] 27 mmol/L Normal 21-31 [facility] Comment on above: Performed By: #### 2 474104, 7857058, 01804120, 4116906, 74659944, 2787796, 5536185, 9716601, 4661531, 1977523, 12076623, 2808291, 28734361 ####[facility] [address] [place] [address] Creatinine [Mass/Vol] 0.8 mg/dL Normal 0.5-1.3 [facility] Comment on above: Performed By: #### 2 783600, 9308782, 32186197, 6277645, 43415076, 9672897, 5562415, 2056602, 7731784, 5778989, 38261485, 1658553, 26303470 ####[facility] [address] [place] [address] Globulin (S) [Mass/Vol] 3.0 g/dL Normal 1.4-4.0 [facility] Comment on above: Performed By: #### 2 706599, 0974740, 06218221, 1086116, 62881811, 7161263, 8714487, 9864888, 7387335, 5573118, 75554177, 8333257, 14366516 ####[facility] [address] [place] [address] Glucose [Mass/Vol] 212 mg/dL High 55-199 [facility] Comment on above: Performed By: #### 2 370767, 1558047, 34477373, 3332803, 26930239, 0224692, 5224752, 0706177, 4704838, 7885716, 20844047, 5700462, 34958812 ####[address] [place] [address] Potassium [Moles/Vol] 4.1 mmol/L Normal 3.5-5.3 [facility] Comment on above: Performed By: #### 2 432191, 7203869, 62488470, 9188651, 05112575, 8370231, 3970167, 0166745, 4226341, 9659315, 31564594, 4789451, 96362647 ####[facility] [address] [place] [address] Protein [Mass/Vol] 6.1 g/dL Normal 6.0-7.8 [facility] Comment on above: Performed By: #### 2 461610, 3350535, 94143623, 6530448, 79829100, 5360468, 7070491, 9229758, 7309230, 3139589, 96732314, 9148746, 14635098 ####[facility] [address] [place] [address] Sodium [Moles/Vol] 140 mmol/L Normal 135-145 [facility] Comment on above: Performed By: #### 2 366006, 7467589, 26586982, 2790845, 46933886, 1303408, 2152317, 3018747, 9549224, 4577011, 27377498, 0418737, 81237221 ####[facility] [address] [place] [address] Urea nitrogen [Mass/Vol] 18 mg/dL Normal 5-21 [facility] Comment on above: Performed By: #### 2 212037, 7717940, 09908474, 4352227, 65655694, 0293719, 5839251, 8703545, 1463462, 8959352, 40753940, 2795151, 35906989 ####[facility] [address] [place] [address] Consenton 05-04-2023 Consent [id number]#1.00TI FF Normal [facility] Consent for Treatmenton Consent for Treatment [id number]#1.00TI FF Normal [facility] Consent for Treatment [id number]#1.00TIF F Normal [facility] Consent for Treatment [id number]#1.00TIF F Normal [facility] Ferritinon 05-04-2023 Ferritin Lvl 36 ng/mL Normal 11-307 [facility] Comment on above: Performed By: #### 2 120189, 9185055, 47592136, 4331424, 57191921, 4911311, 1927634, 6966384, 0658720, 7599929, 56787542, 5649428, 87653793 ####[facility] [address] [place] [address] Folateon 05-04-2023 Folate Lvl 9.9 ng/mL Normal >=6.7 [facility] Comment on above: Performed By: #### 2 271839, 6124737, 31279068, 0523439, 64533827, 1246034, 1591624, 8666621, 4893642, 3274283, 71608872, 4544509, 91028706 ####[facility] [address] [place] [address] HEMATOLOGYOrdered By: SYSTEM SYSTEM on 05-04-2023 Basophil [...] Normal 80.0 - 100.0 fL Remisol Heme Cataño Absolute 0.6 E9/L Normal 0.2 - 1.0 [...] 11.0 E9/L Remisol Heme HEMATOLOGYOrdered By: Placido Sonit on 05-04-2023 ESR (Bld) [Velocity] 87 mm/h High 0 - 34 mm[facility] HemeAutoSS Ironon 05-04-2023 Iron 26 microgram/dL Low 35-153 [facility] Comment on above: Performed By: #### 2 558800, 8551255, 11207552, 9785310, 55240297, 9803489, 2996528, 7775531, 1278044, 2042753, 10119088, 1617045, 39291793 ####[facility] [address] [place] [address] Iron Saturationon 05-04-2023 Iron Sat 8 % Low 20-50 [facility] Comment on above: Performed By: #### 2 253280, 7421395, 83643441, 6818216, 20594549, 8179498, 0309423, 2373136, 6716744, 0552487, 79263394, 6737909, 32190645 ####[facility] [address] [place] [address] TIBC 333 microgram/dL Normal 250-400 [facility] Comment on above: Performed By: #### 2 366017, 1809452, 43238016, 8117704, 96945419, 3655621, 2252651, 7613366, 5328907, 1339073, 18999279, 7508553, 03481901 ####[facility] [address] [place] [address] ONC - Otheron 05-04-2023 ONC - Other [id number]#1.00TI FF [facility] Oncology Noteon 05-04-2023 Oncology Note Oncology [employer] Office Visit/Treatment Note Current Patient Status/Reason: Patient [...] think about it. Distress thermometer emailed to psychologist social. [facility] Comment on above: Result Comment: Elec tronically Signed By: Abhijeet MACKENZIE, Teri Velázquez\.br\Date and Time Signed: 05/04/23 16:58 EST Physician Orderon 05-04-2023 Physician Order [id number]#1.00TIF F [facility] Physician Order [id number]#1.00TIF F [facility] Sed Rate Automatedon 024 ESR (Bld) [Velocity] 87 mm/h High 0-34 [facility] Comment on above: Performed By: #### 2 469394, 6193452, 27840928, 4174839, 45859993, 3928718, 4641429, 8619952, 2864297, 2416769, 10746189, 0454650, 66215741 ####[facility] [address] [place] [address] Transferrinon 05-04-2023 Transferrin [Mass/Vol] 238 mg/dL Normal 200-370 [facility] Comment on above: Performed By: #### 2 860264, 8561519, 61536069, 6148632, 15028553, 5915042, 2665977, 9609319, 8467597, 6824569, 43158855, 2059674, 89394796 ####[facility] [address] [place] [address] Vit B12on 05-04-2023 Cobalamin (Vitamin B12) [Mass/Vol] 409 pg/mL Normal 50-1500 [facility] Comment on above: Performed By: #### 2 643513, 2867559, 34539156, 0188898, 53928814, 2222986, 1909940, 3653614, 3784293, 7576756, 15654479, 8496545, 04671817 ####[facility] [address] [place] [address] eGFRon 05-04-2023 eGFR 82 mL/min/1.73 m2 Normal >=59 [facility] Comment on above: Order Comment: Order added by Discern Expert. Performed By: #### 2 401249, 8831996, 70865824, 4965452, 52441902, 0463256, 8279325, 7777764, 0995475, 3195362, 18871614, 1758480, 44643389 ####[facility] [address] [place] [address] ED Note-Physicianon 05-03-19 24 ED Note-Physician [id number] [id number]#1.00TIF F Normal [facility] Family Medicine Office/Clini c Noteon 05-03-2023 Family Medicine Office/Clinic Note Chief Complaint F/U hospital stay HPI Staff Karuna is a 62 year old female presenting for TCM follow up. Patient is present with 2 sisters. TCM: Hospital: [facility] (records requested 05/01/23) Admission date: 04/22/23 Discharge date: 04/28/23 Symptoms the patient presented with: Pt had a syncopal episode at home Current concerns: pt was at [facility] ER 04/22/23 CT head/cervical and ABD done [facility] called patient yesterday to inform her she has pancreatic cancer with possible involvement of liver and gallbladder. History of Present Illness Karuna Nelson is a 62-year-old female who presents today for a hospital discharge follow-up. She is accompanied by her sister. The patient reports that there was CT evidence of possible pancreatitis at [facility]. The sister reports that the patient had [...] stress test. She agrees to go to [facility] for her cancer treatment. She mentions that she was sent to [facility] in [place]. Review of Systems PHQ Score Initial Depression [...] malignant neoplasm) I have requested records from [place] to see what exactly was done and [...] with voice recognition artificial intelligence software, specifically [employer], [facility] and or [employer]. Substitutions may have occurred due to the inherent limitations of voice recognition and artificial intelligence software. Documentation services were performed after patient or guardian consented to allow [employer] to record this visit. PATY account management specialist and provider reviewed before signing. PATY: Mackenzie Osbornt/Pasted by: Mima Davis Follow (more content not included)... Normal [facility] Comment on above: Result Comment: Elec tronically Signed By: Esau Riddle MD\.br\Date and Time Signed: 05/03/23 15:31 EST\.br\Electronically Co-Signed By: Mima Davis\.br\Date and Time Co-Signed: 05/02/23 14:56 EST Outside [facility] Correspo ndenceon 05-03-2023 Outside [facility] Correspondence [id number]#1.00TIF F [facility] Outside [facility] Correspondence [id number]#1.00TIF F [facility] Auth for Release of Medical Recordson 05-02-2023 Auth for Release of Medical Records [id number]#1.00TIF F [facility] Outside Labson 05-02-2023 Outside Labs [id number]#1.00TI FF [facility] Outside Pathology Reporton 0 05-02-2023 Outside Pathology Report [id number]#1.00TI FF [facility] Provider Letteron 05-02-2023 Provider Letter (Inserted Image. Esperanza ble to display) May 02, 2023 KARUNA NELSON [address] [place] [phone] : 1960 To Whom It May Concern, Per Dr. Yuni Lawler medical assessment Corie Yung has many medical problems that prevent her from performing gainful employment, as such she is medically disabled and he believes these problems are permanent. Date of Illness: From: _ To: _ May Return to Work On: Restrictions: _ Comments: _ Sincerely, [facility] [address] [place] [id number] This note does not belong to this patient, wrong chart [facility] Comment on above: Other Comment: this does not belong in this chart wrong patient Auth for Release of Medical Recordson 05-01-2023 Auth for Release of Medical Records [id number]#1.00TIF F [facility] Population Healthon 05-01-19 Population Health Case Information Case Priority: None Programs: -- Referral Source: Human Resources Associate Referral Reason: Care coordination Case Type: High [...] 2 Flash Glucose Monitoring 14 Day System (Elma), See Instructions Freestyle Brady 2 Flash Glucose [...] appointment scheduled? yes, 05/02 with PCP for [facility] follow up at 1030 Did you [...] for oncology and GI follow up in [place] (she can not recall these dates at [...] 1030, medication reconciliation to be done at [facility]. Patient denies any further questions or concerns. CN explained [facility] services and gave CN contact number. *No d/c summary available, above information provided by patient. (more content not included)... Normal [facility] Comp Metabolic Profon 2023 Albumin [Mass/Vol] 3.0 g/dL Low 3.5-5.2 [facility] Comment on above: Performed By: #### L IP, CP #### [facility] Lab [facility] [facility] [place] [address] Vegetable Washer: Juan Joe MD Alkaline Phos 617 U/L High 35-104 [facility] Comment on above: Performed By: #### L IP, CP #### [facility] [address] [facility] [place] [address] Vegetable Washer: Juan Joe MD ALT [Catalytic activity/Vol] 71 U/L High 5-33 [facility] Comment on above: Performed By: #### L IP, CP #### [facility] [facility] [place] [address] Vegetable Washer: Juan Joe MD Anion gap [Moles/Vol] 10 mmol/L Normal 9-17 [facility] Comment on above: Performed By: #### L IP, CP #### [facility] [facility] [place] [address] Vegetable Washer: Juan Joe MD AST [Catalytic activity/Vol] 69 U/L High <32 [facility] Comment on above: Performed By: #### L IP, CP #### [facility] [facility] [place] [address] Vegetable Washer: Juan Joe MD Bilirubin [Mass/Vol] 1.9 mg/dL High 0.3-1.2 [facility] Comment on above: Performed By: #### L IP, CP #### [facility] [address] [place] [address] Vegetable Washer: Juan Joe MD BUN/CRE Ratio 36 High 9-20 [facility] Comment on above: Performed By: #### L IP, CP #### [facility] [address] [place] [address] Vegetable Washer: Juan Joe MD Calcium [Mass/Vol] 7.7 mg/dL Low 8.6-10.4 [facility] Comment on above: Performed By: #### L IP, CP #### [facility] [place] [address] Vegetable Washer: Juan Joe MD Chloride [Moles/Vol] 105 mmol/L Normal 98-107 [facility] Comment on above: Performed By: #### L IP, CP #### [facility] [place] [address] Vegetable Washer: Juan Joe MD CO2 [Moles/Vol] 21 mmol/L Normal 20-31 [facility] Comment on above: Performed By: #### L IP, CP #### [facility] [place] [address] Vegetable Washer: Juan Joe MD Creatinine [Mass/Vol] 0.7 mg/dL Normal 0.5-0.9 [facility] Comment on above: Performed By: #### L IP, CP #### [facility] [place] [address] Vegetable Washer: Juan Joe MD GFR/1.73 sq M.predicted among non-blacks MDRD (S/P/Bld) [Vol rate/Area] mL/min/{1.73_m2} Normal >60 [facility] Comment on above: Result Comment: These results [...] affects renal tubular secretion. Performed By: #### L IP, CP #### [facility] [address] [place] [address] [phone] Vegetable Washer: Juan Joe MD Glucose [Mass/Vol] 391 mg/dL High 70-99 [facility] Comment on above: Performed By: #### L IP, CP #### [facility] [address] [place] [address] [phone] Vegetable Washer: Juan Joe MD Potassium [Moles/Vol] 4.5 mmol/L Normal 3.7-5.3 [facility] Comment on above: Performed By: #### L IP, CP #### [facility] [address] [place] [address] Vegetable Washer: Juan Joe MD Protein [Mass/Vol] 6.1 g/dL Low 6.4-8.3 [facility] Comment on above: Performed By: #### L IP, CP #### [facility] [address] [place] [address] Vegetable Washer: Juan Joe MD Sodium [Moles/Vol] 136 mmol/L Normal 135-144 [facility] Comment on above: Performed By: #### L IP, CP #### [facility] [address] [place], [place] [id number] Vegetable Washer: Juan Joe MD Urea nitrogen [Mass/Vol] 25 mg/dL High 8-23 [facility] Comment on above: Performed By: #### L IP, CP #### [facility] [address] [place] [address] Vegetable Washer: Juan Joe MD [facility] Metabolic Pane [facility] 04-28-2023 Albumin [Mass/Vol] 3.0 g/dL Low 3.5 - 5.2 g/dL [facility] ALP [Catalytic activity/Vol] 617 U/L High 35 - 104 U/L [facility] ALT [Catalytic activity/Vol] 71 U/L High 5 - 33 U/L [facility] Anion gap [Moles/Vol] 10 mmol/L 9 - 17 mmol/L [facility] AST [Catalytic activity/Vol] 69 U/L High NINF - 32 U/L [facility] Bilirubin [Mass/Vol] 1.9 mg/dL High 0.3 - 1 .2 mg/dL [facility] Calcium [Mass/Vol] 7.7 mg/dL Low 8.6 - 10. 4 mg/dL [facility] Chloride [Moles/Vol] 105 mmol/L 98 - 10 7 mmol/L [facility] CO2 [Moles/Vol] 21 mmol/L 20 - 31 mmol/L [facility] Creatinine [Mass/Vol] 0.7 mg/dL 0.5 - 0.9 mg/dL [facility] GFR/1.73 sq M.predicted MDRD (S/P/Bld) [Vol rate/Area] - PINF [facility] Comment on above: These results are not [...] 391 mg/dL High 70 - 99 mg/dL [facility] Interpretation and review of laboratory results Abnormal [facility] Potassium [Moles/Vol] 4.5 mmol/L 3.7 - 5.3 mmol/L [facility] Protein [Mass/Vol] 6.1 g/dL Low 6.4 - 8.3 g/dL [facility] Sodium [Moles/Vol] 136 mmol/L 135 - 144 mmol/L [facility] Urea nitrogen [Mass/Vol] 25 mg/dL High 8 - 23 mg/dL [facility] Urea nitrogen/Creatinine [Mass ratio] 36 mg/mg High 9 - 20 [facility] Hemoglobin and Hematocriton 04-28-2023 Hematocrit (Bld) [Volume fraction] 26.8 % Low 36.3 - 47.1 % [facility] Hemoglobin (Bld) [Mass/Vol] 8.3 g/dL Low 11.9 - 15.1 g/dL [facility] Interpretation and review of laboratory results Abnormal [facility] Hematocrit (Bld) [Volume fraction] 24.4 % Low 36.3 - 47.1 % [facility] Hemoglobin (Bld) [Mass/Vol] 7.7 g/dL Low 11.9 - 15.1 g/dL [facility] Interpretation and review of laboratory results Abnormal [facility] Hgb/Hcton 04-28-2023 Hematocrit (Bld) [Volume fraction] 26.8 % Low 36.3-47.1 [facility] Comment on above: Performed By: #### L IVP, LIP, BMPX, HH #### [facility] [address] [place], [place] [phone] Vegetable Washer: Juan Joe MD Hemoglobin (Bld) [Mass/Vol] 8.3 g/dL Low 11.9-15.1 [facility] Comment on above: Performed By: #### L IVP, LIP, BMPX, HH #### [facility] [address] [place] [address] Vegetable Washer: Juan Joe MD Hematocrit (Bld) [Volume fraction] 24.4 % Low 36.3-47.1 [facility] Comment on above: Performed By: #### L IVP, LIP, BMPX, #### [facility] [address] [place] [address] Vegetable Washer: Juan Joe MD Hemoglobin (Bld) [Mass/Vol] 7.7 g/dL Low 11.9-15.1 [facility] Comment on above: Performed By: #### L IVP, LIP, BMPX, #### [facility] [address] [place] [address] Vegetable Washer: Juan Joe MD Lipaseon 04-28-2023 Lipase [Catalytic activity/Vol] 1382 U/L High 13-60 [facility] Comment on above: Performed By: #### L IP, #### [facility] [address] [facility] [place] [address] Vegetable Washer: Juan Joe MD Interpretation and review of laboratory results Abnormal [facility] Lipase [Catalytic activity/Vol] 1382 U/L High 13 - 60 U/L [facility] No Panel Informationon 04-28 Component Leukocyte Reduced Re d Cell [facility] Crossmatch Result COMPATIBLE [facility] Dispense Status Blood Bank TRANSFUSED [facility] Transfusion Status OK TO TRANSFUSE B ON [facility] Unit Divison 0 [facility] POC Glucose Fingerstickon Glucose [Mass/Vol] 315 mg/dL High 65 - 105 mg/dL [facility] Interpretation and review of laboratory results Abnormal [facility] Glucose [Mass/Vol] 365 mg/dL High 65 - 105 mg/dL [facility] Interpretation and review of laboratory results Abnormal [facility] SURGICAL PATHOLOGY REPORTon 04-28-2023 Surgical Pathology Report Path Number: [id number] -- Diagnosis -- A. DUODENUM, BIOPSY: -SMALL [...] INCLUSIONS. Aditya Good M.D. Electronically Signed Out naida/04/27/2023 Clinical Information Pre-Op Diagnosis: OBSTRUCTIVE JAUNDICE; PANCREATIC [...] Z LINE BIOPSY Gross Description A. KARUNA GREEN, DUODENAL BIOPSY Received in formalin are two gilbert-white tissue fragments from 0.2 to 0.3 cm and are 0.5 x 0.2 x 0.1 cm in aggregate. Entirely 1cs. B. KARUNA GREEN, GASTRIC BIOPSY Received in formalin are two gilbert-white tissue fragments from 0.2 to 0.5 cm and are 0.7 x 0.2 x 0.1 cm in aggregate. Entirely 1cs. C. KARUNA GREEN, IRREGULAR Z-LINE BIOPSY Received in formalin is one gilbert-white tissue fragment, 0.5 x 0.2 x 0.2 cm. Entirely 1cs. nadir Arnold M.D./mj:04/26/2023 Microscopic Description A-C. Microscopic examination performed. H. pylori immunostain performed because no organisms apparent on H&E. C. Pancytokeratin immunostain was performed and reveals no infiltrating malignant epithelial cells. Control reacts as expected. Processing Lab: [address] Interpretation Performed at [facility] [address] [place] [address] SURGICAL PATHOLOGY CONSULTATION Patient Name: KARUNA NELSON Rec: [id number] [facility] ANATOMIC PATHOLOGY [address] [facility] [place], [place] [address] [facility] TYPE AND SCREENon 04-28-2023 ABO/Rh Positive [facility] Arm Band Number [id number] [facility] Blood Bank Sample Expiration 04/29/2023,2359 [facility] Blood product unit ID (Dose) [#] [id number] [facility] Blood product unit ID (Dose) [#] [id number] [facility] B12/Folate Panelon Cobalamin (Vitamin B12) [Mass/Vol] 966 pg/mL Normal 232-1245 [facility] Comment on above: Performed By: #### L IVP, LIP, BMPX, #### [facility] [address] [place] [address] Vegetable Washer: Juan Joe MD Folic Acid 6.0 ng/mL Normal >4.8 [facility] Comment on above: Performed By: #### L IVP, LIP, BMPX, #### [facility] [address] [place], [place] [phone] Vegetable Washer: Juan Joe MD Basic Metab w/rfx MGon 04-27 Anion gap [Moles/Vol] 13 mmol/L Normal 9-17 [facility] Comment on above: Performed By: #### L IVP, LIP, BMPX, HH #### [facility] [address] [place], [place] [phone] Vegetable Washer: Juan Joe MD BUN/CRE Ratio 43 High 9-20 [facility] Comment on above: Performed By: #### L IVP, LIP, BMPX, #### [facility] [address] [place] [address] Vegetable Washer: Juan Joe MD Calcium [Mass/Vol] 7.7 mg/dL Low 8.6-10.4 [facility] Comment on above: Performed By: #### L IVP, LIP, BMPX, #### [facility] [address] [place] [address] Vegetable Washer: Juan Joe MD Chloride [Moles/Vol] 101 mmol/L Normal 98-107 [facility] Comment on above: Performed By: #### L IVP, LIP, BMPX, #### [facility] [address] [place] [address] Vegetable Washer: Juan Joe MD CO2 [Moles/Vol] 17 mmol/L Low 20-31 [facility] Comment on above: Performed By: #### L IVP, LIP, BMPX, #### [facility] [address] [place] [address] Vegetable Washer: Juan Joe MD Creatinine [Mass/Vol] 0.9 mg/dL Normal 0.5-0.9 [facility] Comment on above: Result Comment: ICTE DMITRIY SPECIMEN Performed By: #### L IVP, LIP, BMPX, #### [facility] [address] [facility] [place] [address] Vegetable Washer: Juan Joe MD GFR/1.73 sq M.predicted among non-blacks MDRD (S/P/Bld) [Vol rate/Area] mL/min/{1.73_m2} Normal >60 [facility] Comment on above: Result Comment: These results [...] affects renal tubular secretion. Performed By: #### L IVP, LIP, BMPX, #### [facility] [address] [facility] [place] [address] Vegetable Washer: Juan Joe MD Glucose [Mass/Vol] 352 mg/dL High 70-99 [facility] Comment on above: Performed By: #### L IVP, LIP, BMPX, HH #### [facility] [facility] [place] [address] Vegetable Washer: Juan Joe MD Potassium [Moles/Vol] 4.8 mmol/L Normal 3.7-5.3 [facility] Comment on above: Performed By: #### L IVP, LIP, BMPX, HH #### [facility] [facility] [place] [address] Vegetable Washer: Juan Joe MD Sodium [Moles/Vol] 131 mmol/L Low 135-144 [facility] Comment on above: Performed By: #### L IVP, LIP, BMPX, HH #### [facility] [facility] [place] [address] Vegetable Washer: Juan Joe MD Urea nitrogen [Mass/Vol] 39 mg/dL High 8-23 [facility] Comment on above: Performed By: #### L IVP, LIP, BMPX, HH #### [facility] [facility] [place] [address] Vegetable Washer: Juan Joe MD Basic Metabolic Panel w/ Ref kristen to MGon 04-27-2023 Anion gap [Moles/Vol] 13 mmol/L 9 - 17 mmol/L [facility] Calcium [Mass/Vol] 7.7 mg/dL Low 8.6 - 10. 4 mg/dL [facility] Chloride [Moles/Vol] 101 mmol/L 98 - 10 7 mmol/L [facility] CO2 [Moles/Vol] 17 mmol/L Low 20 - 31 mmol/L [facility] Creatinine [Mass/Vol] 0.9 mg/dL 0.5 - 0.9 mg/dL [facility] Comment on above: ICTERIC SPECIMEN GFR/1.73 sq M.predicted MDRD (S/P/Bld) [Vol rate/Area] - PINF [facility] Comment on above: These results are not [...] 352 mg/dL High 70 - 99 mg/dL [facility] Interpretation and review of laboratory results Abnormal [facility] Potassium [Moles/Vol] 4.8 mmol/L 3.7 - 5.3 mmol/L [facility] Sodium [Moles/Vol] 131 mmol/L Low 135 - 144 mmol/L [facility] Urea nitrogen [Mass/Vol] 39 mg/dL High 8 - 23 mg/dL [facility] Urea nitrogen/Creatinine [Mass ratio] 43 mg/mg High 9 - 20 [facility] CA 19-9on 04-27-2023 CA 19-9 1114 U/mL High 0-35 [facility] Comment on above: Result Comment: The Tiffany ECLIA assay is used. Results obtained with different assay methods cannot be used interchangeably. Performed By: #### L IVP, LIP, BMPX, HH #### [facility] [address] [place] [address] Vegetable Washer: Juan Joe MD CBC with Auto Differentialon 04-27-2023 Basophils (Bld) [#/Vol] 0.03 10*3/uL [facility] Basophils/100 WBC (Bld) 0 % 0 - 2 % [facility] Eosinophils (Bld) [#/Vol] 0.12 10*3/uL [facility] Eosinophils/100 WBC (Bld) 1 % 1 - 4 % [facility] Erythrocyte distribution width (RBC) [Ratio] 19.7 % High 11.8 - 14.4 % [facility] Hematocrit (Bld) [Volume fraction] 23.4 % Low 36.3 - 47.1 % [facility] Hemoglobin (Bld) [Mass/Vol] 7.6 g/dL Low 11.9 - 15.1 g/dL [facility] Immature granulocytes (Bld) [#/Vol] 0.33 10*3/uL High [facility] Immature granulocytes/100 WBC (Bld) 3 % High 0 [facility] Interpretation and review of laboratory results Abnormal [facility] Lymphocytes/100 WBC (Bld) 16 % Low 24 - 43 % [facility] Lymphocytes/100 WBC (Bld) 2.11 % [facility] MCH (RBC) [Entitic mass] 27.3 pg 25.2 - 33.5 pg [facility] MCHC (RBC) [Mass/Vol] 32.5 g/dL 28.4 - 34.8 g/dL [facility] MCV (RBC) [Entitic vol] 84.2 fL 82.6 - 102.9 fL [facility] Monocytes/100 WBC (Bld) 4 % 3 - 12 % [facility] Monocytes/100 WBC (Bld) 0.48 % [facility] Neutrophils/100 WBC (Bld) 77 % High 36 - 65 % [facility] Nucleated RBC/100 WBC (Bld) [Ratio] 1.1 % High 0.0 per 100 WBC [facility] Platelet mean volume (Bld) [Entitic vol] 11.1 fL 8.1 - 13.5 fL [facility] Platelets (Bld) [#/Vol] 245 10*3/uL [facility] RBC (Bld) [#/Vol] 2.78 10*6/uL Low 3.95 - 5.1 1 m/uL [facility] RBC (Bld) [#/Vol] ANISOCYTOSIS PRESENT [facility] Segmented neutrophils/100 WBC (Bld) 10.22 % High [facility] WBC other (Bld) [#/Vol] 13.3 High [facility] CBC with Diffon 04-27-2023 Abs. Basophil 0.03 k/uL Normal 0.00-0.20 [facility] Comment on above: Performed By: #### N DISPATCHER SERVICE OR WORK #### [place] [address] Vegetable Washer: Mu Roberson MD Abs.Imm.Granulocyte 0.33 k/uL High 0.00-0.30 [facility] Comment on above: Performed By: #### N DISPATCHER SERVICE OR WORK #### [place] [address] Vegetable Washer: uM Roberson MD Abs.Neutrophil (Seg) 10.22 k/uL High 1.50-8.10 [facility] Comment on above: Performed By: #### N DISPATCHER SERVICE OR WORK #### [place] [address] Vegetable Washer: Mu Roberson MD Basophils/100 WBC (Bld) 0 % Normal 0-2 [facility] Comment on above: Performed By: #### N DISPATCHER SERVICE OR WORK #### [place] [address] Vegetable Washer: Mu Roberson MD Eosinophils (Bld) [#/Vol] 0.12 10*3/uL Normal 0.00-0.44 [facility] Comment on above: Performed By: #### N DISPATCHER SERVICE OR WORK #### [address] [place] [address] Vegetable Washer: Mu Roberson MD Eosinophils/100 WBC (Bld) 1 % Normal 1-4 [facility] Comment on above: Performed By: #### N DISPATCHER SERVICE OR WORK #### [address] [address] Vegetable Washer: Mu Roberson MD Erythrocyte distribution width (RBC) [Ratio] 19.7 % High 11.8-14.4 [facility] Comment on above: Performed By: #### N DISPATCHER SERVICE OR WORK #### [address] [address] Vegetable Washer: Mu Roberson MD Hematocrit (Bld) [Volume fraction] 23.4 % Low 36.3-47.1 [facility] Comment on above: Performed By: #### N DISPATCHER SERVICE OR WORK #### [address] [address] Vegetable Washer: Mu Roberson MD Hemoglobin (Bld) [Mass/Vol] 7.6 g/dL Low 11.9-15.1 [facility] Comment on above: Performed By: #### N DISPATCHER SERVICE OR WORK #### [address] [address] Vegetable Washer: Mu Roberson MD Immature granulocytes/100 WBC (Bld) 3 % High 0 [facility] Comment on above: Performed By: #### N DISPATCHER SERVICE OR WORK #### [address] [address] Vegetable Washer: Mu Roberson MD Lymphocytes (Bld) [#/Vol] 2.11 10*3/uL Normal 1.10-3.70 [facility] Comment on above: Performed By: #### N DISPATCHER SERVICE OR WORK #### [address] [address] Vegetable Washer: Mu Roberson MD Lymphocytes/100 WBC (Bld) 16 % Low 24-43 [facility] Comment on above: Performed By: #### N DISPATCHER SERVICE OR WORK #### [address] [address] Vegetable Washer: Mu Roberson MD MCH (RBC) [Entitic mass] 27.3 pg Normal 25.2-33.5 [facility] Comment on above: Performed By: #### N DISPATCHER SERVICE OR WORK #### [address] [address] Vegetable Washer: Mu Roberson MD MCHC (RBC) [Mass/Vol] 32.5 g/dL Normal 28.4-34.8 [facility] Comment on above: Performed By: #### N DISPATCHER SERVICE OR WORK #### [address] [address] Vegetable Washer: Mu Roberson MD MCV (RBC) [Entitic vol] 84.2 fL Normal 82.6-102.9 [facility] Comment on above: Performed By: #### N DISPATCHER SERVICE OR WORK #### [address] [address] Vegetable Washer: Mu Roberson MD Monocytes (Bld) [#/Vol] 0.48 10*3/uL Normal 0.10-1.20 [facility] Comment on above: Performed By: #### N DISPATCHER SERVICE OR WORK #### [address] [address] Vegetable Washer: Mu Roberson MD Monocytes/100 WBC (Bld) 4 % Normal 3-12 [facility] Comment on above: Performed By: #### N DISPATCHER SERVICE OR WORK #### [address] [address] Vegetable Washer: Mu Roberson MD Neutrophil (Seg) 77 % High 36-65 [facility] Comment on above: Performed By: #### N DISPATCHER SERVICE OR WORK #### [address] [address] Vegetable Washer: Mu Roberson MD NRBC Automated 1.1 per 100 WBC High 0.0 [facility] Comment on above: Performed By: #### N DISPATCHER SERVICE OR WORK #### [address] [address] Vegetable Washer: Mu Roberson MD Platelet mean volume (Bld) [Entitic vol] 11.1 fL Normal 8.1-13.5 [facility] Comment on above: Performed By: #### N DISPATCHER SERVICE OR WORK #### [address] [address] Vegetable Washer: Mu Roberson MD Platelets (Bld) [#/Vol] 245 10*3/uL Normal 138-453 [facility] Comment on above: Performed By: #### N DISPATCHER SERVICE OR WORK #### [address] [address] Vegetable Washer: Mu Roberson MD RBC (Bld) [#/Vol] 2.78 10*6/uL Low 3.95-5.11 [facility] Comment on above: Performed By: #### N DISPATCHER SERVICE OR WORK #### [address] [address] Vegetable Washer: Mu Roberson MD RBC morphology finding Nom (Bld) ANISOCYTOSIS PRESENT Normal [facility] Comment on above: Performed By: #### N DISPATCHER SERVICE OR WORK #### [address] [address] Vegetable Washer: Mu Roberson MD WBC (Bld) [#/Vol] 13.3 10*3/uL High 3.5-11.3 [facility] Comment on above: Performed By: #### N DISPATCHER SERVICE OR WORK #### [address] [address] Vegetable Washer: Mu Roberson MD Cancer Antigen 19-9on 2023 Cancer Ag 19-9 IA Qn 1114 U/mL High 0 - 35 U/mL [facility] Comment on above: The Tiffany ECLIA as say is used. Results obtained with different assay methods cannot be used interchangeably. Interpretation and review of laboratory results Abnormal [facility] Ferritinon 04-27-2023 Ferritin [Mass/Vol] 173 ng/mL High 13-150 [facility] Comment on above: Performed By: #### L IVP, LIP, BMPX, HH #### [facility] [address] [place] [address] Vegetable Washer: Juan Joe MD Hemoglobin and Hematocriton 04-27-2023 Hematocrit (Bld) [Volume fraction] 26.0 % Low 36.3 - 47.1 % [facility] Hemoglobin (Bld) [Mass/Vol] 8.3 g/dL Low 11.9 - 15.1 g/dL [facility] Interpretation and review of laboratory results Abnormal [facility] Hematocrit (Bld) [Volume fraction] 23.8 % Low 36.3 - 47.1 % [facility] Hemoglobin (Bld) [Mass/Vol] 7.8 g/dL Low 11.9 - 15.1 g/dL [facility] Interpretation and review of laboratory results Abnormal [facility] Hematocrit (Bld) [Volume fraction] 20.0 % Low 36.3 - 47.1 % [facility] Hemoglobin (Bld) [Mass/Vol] 6.5 g/dL Critically low 11.9 - 15.1 g/dL [facility] Interpretation and review of laboratory results Abnormal [facility] Hepatic Function Panelon Albumin [Mass/Vol] 2.8 g/dL Low 3.5 - 5.2 g/dL [facility] ALP [Catalytic activity/Vol] 596 U/L High 35 - 104 U/L [facility] ALT [Catalytic activity/Vol] 59 U/L High 5 - 33 U/L [facility] AST [Catalytic activity/Vol] 79 U/L High NINF - 32 U/L [facility] Bilirubin [Mass/Vol] 2.8 mg/dL High 0.3 - 1 .2 mg/dL [facility] Bilirubin.direct [Mass/Vol] 1.9 mg/dL High NINF - 0.3 mg/dL [facility] Bilirubin.indirect [Mass/Vol] 0.9 mg/dL 0.0 - 1.0 mg/dL [facility] Interpretation and review of laboratory results Abnormal [facility] Protein [Mass/Vol] 5.4 g/dL Low 6.4 - 8.3 g/dL [facility] Hgb/Hcton 04-27-2023 Hematocrit (Bld) [Volume fraction] 26.0 % Low 36.3-47.1 [facility] Comment on above: Performed By: #### H H #### [facility] [address] [place] [address] Vegetable Washer: Juan Joe MD Hemoglobin (Bld) [Mass/Vol] 8.3 g/dL Low 11.9-15.1 [facility] Comment on above: Performed By: #### H H #### [facility] [address] [place] [address] Vegetable Washer: Juan Joe MD Hematocrit (Bld) [Volume fraction] 23.8 % Low 36.3-47.1 [facility] Comment on above: Performed By: #### L IVP, LIP, BMPX, #### [facility] [facility] [place] [address] Vegetable Washer: Juan Joe MD Hemoglobin (Bld) [Mass/Vol] 7.8 g/dL Low 11.9-15.1 [facility] Comment on above: Performed By: #### L IVP, LIP, BMPX, HH #### [facility] [address] [place] [id number] Vegetable Washer: Juan Joe MD Hematocrit (Bld) [Volume fraction] 20.0 % Low 36.3-47.1 [facility] Comment on above: Performed By: #### H H #### [facility] [address] [facility] [place] [address] Vegetable Washer: Juan Joe MD Hemoglobin (Bld) [Mass/Vol] 6.5 g/dL Critically low 11.9-15.1 [facility] Comment on above: Performed By: #### H H #### [facility] [address] [facility] [place] [address] Vegetable Washer: Juan Joe MD IR ULTRASOUND GUIDANCE VASCU LAR ACCESSon 04-27-2023 IR ULTRASOUND GUIDANCE VASCULAR ACCESS Radiology exam is complete. No Radiologist dictation. Please follow up with ordering provider. Final result Normal [facility] Radiology exam is complete. No Radiologist dictation. Please follow up with ordering provider. MHPN RIS CONSOLIDATED Iron Binding Cap.on 04-27-19 24 % Fe Saturation 90 % High 20-55 [facility] Comment on above: Performed By: #### L IVP, LIP, BMPX, #### [facility] [address] [facility] [place] [address] Vegetable Washer: Juan Joe MD Iron [Mass/Vol] 252 ug/dL High 37-145 [facility] Comment on above: Performed By: #### L IVP, LIP, BMPX, HH #### [facility] [address] [facility] [place] [address] Vegetable Washer: Juan Joe MD Total Fe Binding Cap 281 ug/dL Normal 250-450 [facility] Comment on above: Performed By: #### L IVP, LIP, BMPX, HH #### [facility] [address] [facility] [place] [address] Vegetable Washer: Juan Joe MD Unbound Fe Bind Cap 29 ug/dL Low 112-347 [facility] Comment on above: Performed By: #### L IVP, LIP, BMPX, #### [facility] [address] [facility] [place] [address] Vegetable Washer: Juan Joe MD Iron and TIBCon 04-27-2023 Interpretation and review of laboratory results Abnormal [facility] Iron [Mass/Vol] 252 ug/dL High 37 - 145 ug/dL [facility] Iron binding capacity [Mass/Vol] 281 ug/dL 250 - 450 ug/dL [facility] Iron saturation [Mass fraction] 90 % High 20 - 55 % [facility] UIBC 29 ug/dL Low 112 - 347 ug/dL [facility] Lipaseon 04-27-2023 Lipase [Catalytic activity/Vol] 1217 U/L High 13-60 [facility] Comment on above: Performed By: #### L IVP, LIP, BMPX, HH #### [facility] [address] [place], [place] [id number] Vegetable Washer: Juan Joe MD Interpretation and review of laboratory results Abnormal [facility] Lipase [Catalytic activity/Vol] 1217 U/L High 13 - 60 U/L [facility] Liver Profileon 04-27-2023 Albumin [Mass/Vol] 2.8 g/dL Low 3.5-5.2 [facility] Comment on above: Performed By: #### L IVP, LIP, BMPX, #### [facility] [address] [facility] [place] [address] Vegetable Washer: Juan Joe MD Alkaline Phos 596 U/L High 35-104 [facility] Comment on above: Performed By: #### L IVP, LIP, BMPX, HH #### [facility] [address] [facility] [place] [address] Vegetable Washer: Juan Joe MD ALT [Catalytic activity/Vol] 59 U/L High 5-33 [facility] Comment on above: Performed By: #### L IVP, LIP, BMPX, HH #### [facility] [address] [place] [address] Vegetable Washer: Juan Joe MD AST [Catalytic activity/Vol] 79 U/L High <32 [facility] Comment on above: Performed By: #### L IVP, LIP, BMPX, HH #### [facility] [address] [facility] [place] [address] Vegetable Washer: Juan Joe MD Bilirubin [Mass/Vol] 2.8 mg/dL High 0.3-1.2 [facility] Comment on above: Performed By: #### L IVP, LIP, BMPX, HH #### [facility] [address] [facility] [place] [address] Vegetable Washer: Juan Joe MD Bilirubin, Indirect 0.9 mg/dL Normal 0.0-1.0 [facility] Comment on above: Performed By: #### L IVP, LIP, BMPX, HH #### [facility] [facility] [place] [address] Vegetable Washer: Juan Joe MD Bilirubin.indirect [Mass/Vol] 1.9 mg/dL High <0.3 [facility] Comment on above: Performed By: #### L IVP, LIP, BMPX, HH #### [facility] [facility] [place] [address] Vegetable Washer: Juan Joe MD Protein [Mass/Vol] 5.4 g/dL Low 6.4-8.3 [facility] Comment on above: Performed By: #### L IVP, LIP, BMPX, HH #### [facility] [address] [place] [address] Vegetable Washer: Juan Joe MD MR Abdomen WO and [...] nodule. Recommend further evaluation with chest CT. [facility] RIS CONSOLIDATED EXAMINATION: MRI OF THE ABDOMEN [...] peripancreatic stranding in this region. There is hsto-ve-ygcryegd atrophy of the body and tail without [...] The aorta is normal in caliber with ffzsmoeu-bp-pzynwm atherosclerosis. The celiac axis and SMA are [...] peripancreatic stranding in this region. There is gckx-yj-bbybkjdm atrophy of the body and tail without [...] The aorta is normal in caliber with eqwliczu-an-qudvwb atherosclerosis. The celiac axis and SMA are [...] nodule. Recommend further evaluation with chest CT. [facility] [employer] MR Abdomen WO and W contrast IVOrdered By: uLcila Mosquera on 04-27-2023 [facility] [employer] Work Phone: MRI ABDOMEN W WO CONTRAST MR Castillo 04-27-2023 MRI ABDOMEN W WO CONTRAST MRCP [...] peripancreatic stranding in this region. There is xpge-yd-jeddtuqg atrophy of the body and tail without [...] The aorta is normal in caliber with rfxazzmy-pp-fqhyld atherosclerosis. The celiac axis and SMA are [...] Lucila Mosquera MD 04/27/23 Final result Normal [facility] POC Glucose Fingerstickon Glucose [Mass/Vol] 421 mg/dL Critically high 65 - 1 05 mg/dL [facility] Interpretation and review of laboratory results Abnormal [facility] Glucose [Mass/Vol] 278 mg/dL High 65 - 105 mg/dL [facility] Interpretation and review of laboratory results Abnormal [facility] Glucose [Mass/Vol] 298 mg/dL High 65 - 105 mg/dL [facility] Interpretation and review of laboratory results Abnormal [facility] Path Review, Smearon 024 Pathologist review Pathologist comment (Bld) [Interp] ELECTRONICALLY SIGNED. LITTLE SERRATO M.D. [facility] SURGICAL PATHOLOGY REPORTon 04-27-2023 Surgical Pathology Report [id number] [facility] [employer] [facility] ANATOMIC PATHOLOGY [address] [place] [address]. [place], [place] [address] SURGICAL PATHOLOGY CONSULTATION Patient Name: KARUNA NELSON MR#: [id number] Specimen #[id number] Procedures/Addenda PERIPHERAL BLOOD REPORT Date Ordered: 04/27/2023 [...] the electronic health record for CBC parameters ([id number], 04/26/2023, 09:51). Note: The electronic health record is reviewed. Little Serrato Source: A: Peripheral Blood [facility] Smear to Pathologiston 04-27 Smear to Pathologist ELECTRONICALLY SIGN ED. LITTLE SERRATO M.D. [facility] Comment on above: Performed By: #### L IVP, LIP, BMPX, #### [facility] [address] [place], [place] [id number] Vegetable Washer: Juan Joe MD Specimen Rejectionon 024 Reason for rejection Unable to perform testing: Specimen clotted. [facility] Comment on above: Performed By: #### N DISPATCHER SERVICE OR WORK #### [facility] [employer] [address] [place], [place] [address] Vegetable Washer: Mu Roberson MD Source of sample .BLOOD [facility] Comment on above: Performed By: #### N DISPATCHER SERVICE OR WORK #### [facility] [address] [place] [address] Vegetable Washer: Mu Roberson MD Test ordered [facility] Comment on above: Performed By: #### N DISPATCHER SERVICE OR WORK #### [employer] [address] [place] [address] Vegetable Washer: Mu Roberson MD Reason for rejection Unable to perform testing: Specimen clotted. [facility] Comment on above: Performed By: #### R EJEC #### [facility] [address] [facility] [place] [address] Vegetable Washer: Juan Joe MD Source of sample .BLOOD [facility] Comment on above: Performed By: #### R EJEC #### [facility] [address] [facility] [place] [address] Vegetable Washer: Juan Joe MD Test ordered [facility] Comment on above: Performed By: #### R EJEC #### [facility] [address] [facility] [place] [address] Vegetable Washer: Juan Joe MD Type + Screenon 04-27-2023 Type + Screen Sample Expiration 04/29/2023,2359 Arm Band Number [id number] ABO/Rh(D) B POSITIVE Antibody Screen NEGATIVE Unit Number [id number] Blood Component Type Leukocyte Reduced Red Cell Unit Division 00 Status of Unit TRANSFUSED Transfusion Status OK TO TRANSFUSE Crossmatch Result COMPATIBLE Unit Number [id number] Blood Component Type Leukocyte Reduced Red Cell Unit Division 00 Status of Unit TRANSFUSED Transfusion Status OK TO TRANSFUSE Crossmatch Result COMPATIBLE [facility] Comment on above: Performed By: #### N DISPATCHER SERVICE OR WORK #### [facility] [address] [place] [address] Vegetable Washer: Mu Roberson MD Vitamin B12 & Folateon 04-27 Cobalamin (Vitamin B12) [Mass/Vol] 966 pg/mL 232 - 1245 pg/mL [facility] Folate [Mass/Vol] 6.0 ng/mL 4.8 - PINF ng/mL [facility] CBC with Auto Differentialon 04-26-2023 Basophils (Bld) [#/Vol] 0.00 10*3/uL [facility] Basophils/100 WBC (Bld) 0 % 0 - 2 % [facility] Eosinophils (Bld) [#/Vol] 0.00 10*3/uL [facility] Eosinophils/100 WBC (Bld) 0 % Low 1 - 4 % [facility] Erythrocyte distribution width (RBC) [Ratio] 19.9 % High 11.8 - 14.4 % [facility] Hematocrit (Bld) [Volume fraction] 20.2 % Low 36.3 - 47.1 % [facility] Hemoglobin (Bld) [Mass/Vol] 6.2 g/dL Critically low 11.9 - 15.1 g/dL [facility] Immature granulocytes (Bld) [#/Vol] 0.14 10*3/uL [facility] Immature granulocytes/100 WBC (Bld) 1 % High 0 [facility] Interpretation and review of laboratory results Abnormal [facility] Lymphocytes/100 WBC (Bld) 10 % Low 24 - 43 % [facility] Lymphocytes/100 WBC (Bld) 1.40 % [facility] MCH (RBC) [Entitic mass] 27.4 pg 25.2 - 33.5 pg [facility] MCHC (RBC) [Mass/Vol] 30.7 g/dL 28.4 - 34.8 g/dL [facility] MCV (RBC) [Entitic vol] 89.4 fL 82.6 - 102.9 fL [facility] Monocytes/100 WBC (Bld) 2 % Low 3 - 12 % [facility] Monocytes/100 WBC (Bld) 0.28 % [facility] Neutrophils/100 WBC (Bld) 87 % High 36 - 65 % [facility] Nucleated RBC/100 WBC (Bld) [Ratio] 0.3 % High 0.0 per 100 WBC [facility] Platelet mean volume (Bld) [Entitic vol] 11.4 fL 8.1 - 13.5 fL [facility] Platelets (Bld) [#/Vol] 323 10*3/uL [facility] RBC (Bld) [#/Vol] 2.26 10*6/uL Low 3.95 - 5.1 1 m/uL [facility] Segmented neutrophils/100 WBC (Bld) 12.18 % High [facility] WBC other (Bld) [#/Vol] 14.0 High [facility] Basophils (Bld) [#/Vol] 0.00 10*3/uL [facility] Basophils/100 WBC (Bld) 0 % 0 - 2 % [facility] Eosinophils (Bld) [#/Vol] 0.00 10*3/uL [facility] Eosinophils/100 WBC (Bld) 0 % Low 1 - 4 % [facility] Erythrocyte distribution width (RBC) [Ratio] 19.8 % High 11.8 - 14.4 % [facility] Hematocrit (Bld) [Volume fraction] 17.9 % Low 36.3 - 47.1 % [facility] Hemoglobin (Bld) [Mass/Vol] 5.6 g/dL Critically low 11.9 - 15.1 g/dL [facility] Immature granulocytes (Bld) [#/Vol] 0.11 10*3/uL [facility] Immature granulocytes/100 WBC (Bld) 1 % High 0 [facility] Interpretation and review of laboratory results Abnormal [facility] Lymphocytes/100 WBC (Bld) 11 % Low 24 - 43 % [facility] Lymphocytes/100 WBC (Bld) 1.23 % [facility] MCH (RBC) [Entitic mass] 27.6 pg 25.2 - 33.5 pg [facility] MCHC (RBC) [Mass/Vol] 31.3 g/dL 28.4 - 34.8 g/dL [facility] MCV (RBC) [Entitic vol] 88.2 fL 82.6 - 102.9 fL [facility] Monocytes/100 WBC (Bld) 2 % Low 3 - 12 % [facility] Monocytes/100 WBC (Bld) 0.22 % [facility] Neutrophils/100 WBC (Bld) 86 % High 36 - 65 % [facility] Nucleated RBC/100 WBC (Bld) [Ratio] 0.2 % High 0.0 per 100 WBC [facility] Platelet mean volume (Bld) [Entitic vol] 11.3 fL 8.1 - 13.5 fL [facility] Platelets (Bld) [#/Vol] 274 10*3/uL [facility] RBC (Bld) [#/Vol] 2.03 10*6/uL Low 3.95 - 5.1 1 m/uL [facility] Segmented neutrophils/100 WBC (Bld) 9.64 % High [facility] WBC other (Bld) [#/Vol] 11.2 [facility] CBC with Diffon 04-26-2023 Abs. Basophil 0.00 k/uL Normal 0.00-0.20 [facility] Comment on above: Performed By: #### L IVP, LIP, BMPX, #### [facility] [address] [place] [address] Vegetable Washer: Juan Joe MD Abs.Imm.Granulocyte 0.14 k/uL Normal 0.00-0.30 [facility] Comment on above: Performed By: #### L IVP, LIP, BMPX, #### [facility] [address] [place] [address] Vegetable Washer: Juan Joe MD Abs.Neutrophil (Seg) 12.18 k/uL High 1.50-8.10 [facility] Comment on above: Performed By: #### L IVP, LIP, BMPX, HH #### [facility] [address] [place] [address] Vegetable Washer: Juan Joe MD Basophils/100 WBC (Bld) 0 % Normal 0-2 [facility] Comment on above: Performed By: #### L IVP, LIP, BMPX, HH #### [facility] [address] [place] [address] Vegetable Washer: Juan Joe MD Eosinophils (Bld) [#/Vol] 0.00 10*3/uL Normal 0.00-0.44 [facility] Comment on above: Performed By: #### L IVP, LIP, BMPX, #### [facility] [address] [place], [place] [address] [place] [address] Vegetable Washer: Juan Joe MD Eosinophils/100 WBC (Bld) 0 % Low 1-4 [facility] Comment on above: Performed By: #### L IVP, LIP, BMPX, HH #### [facility] [address] [place] [address]. [place] [address] Vegetable Washer: Juan Joe MD Immature granulocytes/100 WBC (Bld) 1 % High 0 [facility] Comment on above: Performed By: #### L IVP, LIP, BMPX, #### [facility] [address] [place] [address]. [place] [address] Vegetable Washer: Juan Joe MD Lymphocytes (Bld) [#/Vol] 1.40 10*3/uL Normal 1.10-3.70 [facility] Comment on above: Performed By: #### L IVP, LIP, BMPX, #### [facility] [address] [place] [address]. [place] [address] Vegetable Washer: Juan Joe MD Lymphocytes/100 WBC (Bld) 10 % Low 24-43 [facility] Comment on above: Performed By: #### L IVP, LIP, BMPX, HH #### [facility] [facility] [place] [address] Vegetable Washer: Juan Joe MD Monocytes (Bld) [#/Vol] 0.28 10*3/uL Normal 0.10-1.20 [facility] Comment on above: Performed By: #### L IVP, LIP, BMPX, HH #### [facility] [address] [place] [address] Vegetable Washer: Juan Joe MD Monocytes/100 WBC (Bld) 2 % Low 3-12 [facility] Comment on above: Performed By: #### L IVP, LIP, BMPX, HH #### [facility] [address] [place] [address] Vegetable Washer: Juan Joe MD Neutrophil (Seg) 87 % High 36-65 [facility] Comment on above: Performed By: #### L IVP, LIP, BMPX, HH #### [facility] [address] [place], [place] [address]. [place] [address] Vegetable Washer: Juan Joe MD Erythrocyte distribution width (RBC) [Ratio] 19.9 % High 11.8-14.4 [facility] Comment on above: Performed By: #### L IVP, LIP, BMPX, HH #### [facility] [place] [address] Vegetable Washer: Juan Joe MD Hematocrit (Bld) [Volume fraction] 20.2 % Low 36.3-47.1 [facility] Comment on above: Performed By: #### L IVP, LIP, BMPX, HH #### [facility] [place] [address] Vegetable Washer: Juan Joe MD Hemoglobin (Bld) [Mass/Vol] 6.2 g/dL Critically low 11.9-15.1 [facility] Comment on above: Performed By: #### L IVP, LIP, BMPX, HH #### [facility] [place] [address] Vegetable Washer: Juan Joe MD MCH (RBC) [Entitic mass] 27.4 pg Normal 25.2-33.5 [facility] Comment on above: Performed By: #### L IVP, LIP, BMPX, HH #### [facility] [address] [place] [address] Vegetable Washer: Juan Joe MD MCHC (RBC) [Mass/Vol] 30.7 g/dL Normal 28.4-34.8 [facility] Comment on above: Performed By: #### L IVP, LIP, BMPX, HH #### [facility] [address] [place] [address]. [place] [address] Vegetable Washer: Juan Joe MD MCV (RBC) [Entitic vol] 89.4 fL Normal 82.6-102.9 [facility] Comment on above: Performed By: #### L IVP, LIP, BMPX, HH #### [facility] [address] [place] [address]. [place] [address] Vegetable Washer: Juan Joe MD NRBC Automated 0.3 per 100 WBC High 0.0 [facility] Comment on above: Performed By: #### L IVP, LIP, BMPX, HH #### [facility] [address] [place] [address]. [place] [address] Vegetable Washer: Juan Joe MD Platelet mean volume (Bld) [Entitic vol] 11.4 fL Normal 8.1-13.5 [facility] Comment on above: Performed By: #### L IVP, LIP, BMPX, HH #### [facility] [facility] [place] [address] Vegetable Washer: Juan Joe MD Platelets (Bld) [#/Vol] 323 10*3/uL Normal 138-453 [facility] Comment on above: Performed By: #### L IVP, LIP, BMPX, HH #### [facility] [place] [address] Vegetable Washer: Juan Joe MD RBC (Bld) [#/Vol] 2.26 10*6/uL Low 3.95-5.11 [facility] Comment on above: Performed By: #### L IVP, LIP, BMPX, HH #### [facility] [place] [address] Vegetable Washer: Juan Joe MD WBC (Bld) [#/Vol] 14.0 10*3/uL High 3.5-11.3 [facility] Comment on above: Performed By: #### L IVP, LIP, BMPX, HH #### [facility] [address] [place] [address] Vegetable Washer: Juan Joe MD Abs. Basophil 0.00 k/uL Normal 0.00-0.20 [facility] Comment on above: Performed By: #### L IVP, LIP, BMPX, HH #### [facility] [address] [place] [address] Vegetable Washer: Juan Joe MD Abs.Imm.Granulocyte 0.11 k/uL Normal 0.00-0.30 [facility] Comment on above: Performed By: #### L IVP, LIP, BMPX, HH #### [facility] [address] [place] [address] Vegetable Washer: Juan Joe MD Abs.Neutrophil (Seg) 9.64 k/uL High 1.50-8.10 [facility] Comment on above: Performed By: #### L IVP, LIP, BMPX, HH #### [facility] [address] [place] [address] Vegetable Washer: Juan Joe MD Basophils/100 WBC (Bld) 0 % Normal 0-2 [facility] Comment on above: Performed By: #### L IVP, LIP, BMPX, HH #### [facility] [address] [place] [address] Vegetable Washer: Juan Joe MD Eosinophils (Bld) [#/Vol] 0.00 10*3/uL Normal 0.00-0.44 [facility] Comment on above: Performed By: #### L IVP, LIP, BMPX, HH #### [facility] [address] [place] [address] Vegetable Washer: Juan Joe MD Eosinophils/100 WBC (Bld) 0 % Low 1-4 [facility] Comment on above: Performed By: #### L IVP, LIP, BMPX, HH #### [facility] [facility] [place] [address] Vegetable Washer: Juan Joe MD Immature granulocytes/100 WBC (Bld) 1 % High 0 [facility] Comment on above: Performed By: #### L IVP, LIP, BMPX, #### [facility] [facility] [place] [address] Vegetable Washer: Juan Joe MD Lymphocytes (Bld) [#/Vol] 1.23 10*3/uL Normal 1.10-3.70 [facility] Comment on above: Performed By: #### L IVP, LIP, BMPX, HH #### [facility] [place] [address] Vegetable Washer: Juan Joe MD Lymphocytes/100 WBC (Bld) 11 % Low 24-43 [facility] Comment on above: Performed By: #### L IVP, LIP, BMPX, HH #### [facility] [address] [place] [address] Vegetable Washer: Juan Joe MD Monocytes (Bld) [#/Vol] 0.22 10*3/uL Normal 0.10-1.20 [facility] Comment on above: Performed By: #### L IVP, LIP, BMPX, HH #### [facility] [address] [place] [address] Vegetable Washer: Juan Joe MD Monocytes/100 WBC (Bld) 2 % Low 3-12 [facility] Comment on above: Performed By: #### L IVP, LIP, BMPX, HH #### [facility] [address] [place] [place] [address] [place] [address] Vegetable Washer: Juan Joe MD Neutrophil (Seg) 86 % High 36-65 [facility] Comment on above: Performed By: #### L IVP, LIP, BMPX, HH #### [facility] [address] [place], [place] [address] [place] [address] Vegetable Washer: Juan Joe MD Erythrocyte distribution width (RBC) [Ratio] 19.8 % High 11.8-14.4 [facility] Comment on above: Performed By: #### L IVP, LIP, BMPX, HH #### [facility] [place] [address] Vegetable Washer: Juan Joe MD Hematocrit (Bld) [Volume fraction] 17.9 % Low 36.3-47.1 [facility] Comment on above: Performed By: #### L IVP, LIP, BMPX, HH #### [facility] [place] [address] Vegetable Washer: Juan Joe MD Hemoglobin (Bld) [Mass/Vol] 5.6 g/dL Critically low 11.9-15.1 [facility] Comment on above: Performed By: #### L IVP, LIP, BMPX, HH #### [facility] [address] [facility] [place] [address] Vegetable Washer: Juan Joe MD MCH (RBC) [Entitic mass] 27.6 pg Normal 25.2-33.5 [facility] Comment on above: Performed By: #### L IVP, LIP, BMPX, HH #### [facility] [address] [place] [address]. [place] [address] Vegetable Washer: Juan Joe MD MCHC (RBC) [Mass/Vol] 31.3 g/dL Normal 28.4-34.8 [facility] Comment on above: Performed By: #### L IVP, LIP, BMPX, HH #### [facility] [place] [address] Vegetable Washer: Juan Joe MD MCV (RBC) [Entitic vol] 88.2 fL Normal 82.6-102.9 [facility] Comment on above: Performed By: #### L IVP, LIP, BMPX, #### [facility] [address] [place] [address]. [place] [address] Vegetable Washer: Juan Joe MD NRBC Automated 0.2 per 100 WBC High 0.0 [facility] Comment on above: Performed By: #### L IVP, LIP, BMPX, HH #### [facility] [place] [address] Vegetable Washer: Juan Joe MD Platelet mean volume (Bld) [Entitic vol] 11.3 fL Normal 8.1-13.5 [facility] Comment on above: Performed By: #### L IVP, LIP, BMPX, HH #### [facility] [address] [place] [address] Vegetable Washer: Juan Joe MD Platelets (Bld) [#/Vol] 274 10*3/uL Normal 138-453 [facility] Comment on above: Performed By: #### L IVP, LIP, BMPX, HH #### [facility] [address] [place] [address] Vegetable Washer: Juan Joe MD RBC (Bld) [#/Vol] 2.03 10*6/uL Low 3.95-5.11 [facility] Comment on above: Performed By: #### L IVP, LIP, BMPX, HH #### [facility] [place] [address] Vegetable Washer: Juan Joe MD WBC (Bld) [#/Vol] 11.2 10*3/uL Normal 3.5-11.3 [facility] Comment on above: Performed By: #### L IVP, LIP, BMPX, HH #### [facility] [address] [place] [address] Vegetable Washer: Juan Joe MD CKon 04-26-2023 CK [Catalytic activity/Vol] 28 U/L 26 - 192 U/L [facility] Comp Metabolic Pr/rfx MGon 0 04-26-2023 Albumin [Mass/Vol] 3.1 g/dL Low 3.5-5.2 [facility] Comment on above: Performed By: #### L IVP, LIP, BMPX, HH #### [facility] [address] [place] [address] Vegetable Washer: Juan Joe MD Alkaline Phos 695 U/L High 35-104 [facility] Comment on above: Performed By: #### L IVP, LIP, BMPX, HH #### [facility] [address] [place] [address] Vegetable Washer: Juan Joe MD ALT [Catalytic activity/Vol] 67 U/L High 5-33 [facility] Comment on above: Performed By: #### L IVP, LIP, BMPX, HH #### [facility] [address] [place] [address] Vegetable Washer: Juan Joe MD Anion gap [Moles/Vol] 15 mmol/L Normal 9-17 [facility] Comment on above: Performed By: #### L IVP, LIP, BMPX, HH #### [facility] [place] [address] Vegetable Washer: Juan Joe MD AST [Catalytic activity/Vol] 50 U/L High <32 [facility] Comment on above: Performed By: #### L IVP, LIP, BMPX, HH #### [facility] [address] [place] [address] Vegetable Washer: Juan Joe MD Bilirubin [Mass/Vol] 3.0 mg/dL High 0.3-1.2 [facility] Comment on above: Performed By: #### L IVP, LIP, BMPX, HH #### [facility] [address] [place] [address] Vegetable Washer: Juan Joe MD BUN/CRE Ratio 31 High 9-20 [facility] Comment on above: Performed By: #### L IVP, LIP, BMPX, HH #### [facility] [address] [place] [address] Vegetable Washer: Juan Joe MD Calcium [Mass/Vol] 8.5 mg/dL Low 8.6-10.4 [facility] Comment on above: Performed By: #### L IVP, LIP, BMPX, #### [facility] [address] [place] [address] Vegetable Washer: Juan Joe MD Chloride [Moles/Vol] 101 mmol/L Normal 98-107 [facility] Comment on above: Performed By: #### L IVP, LIP, BMPX, #### [facility] [address] [place] [address] Vegetable Washer: Juan Joe MD CO2 [Moles/Vol] 14 mmol/L Low 20-31 [facility] Comment on above: Performed By: #### L IVP, LIP, BMPX, #### [facility] [address] [facility] [place] [address] Vegetable Washer: Juan Joe MD Creatinine [Mass/Vol] 1.1 mg/dL High 0.5-0.9 [facility] Comment on above: Result Comment: ICTE DMITRIY SPECIMEN Performed By: #### L IVP, LIP, BMPX, #### [facility] [address] [facility] [place] [address] Vegetable Washer: Juan Joe MD GFR/1.73 sq M.predicted among non-blacks MDRD (S/P/Bld) [Vol rate/Area] 56 mL/min/{1.73_m2} Low >60 [facility] Comment on above: Result Comment: These results [...] affects renal tubular secretion. Performed By: #### L IVP, LIP, BMPX, HH #### [facility] [address] [place] [address] Vegetable Washer: Juan Joe MD Glucose [Mass/Vol] 416 mg/dL Critically high 70-99 [facility] Comment on above: Performed By: #### L IVP, LIP, BMPX, HH #### [facility] [address] [place] [address] Vegetable Washer: Juan Joe MD Potassium [Moles/Vol] 5.4 mmol/L High 3.7-5.3 [facility] Comment on above: Performed By: #### L IVP, LIP, BMPX, HH #### [facility] [address] [place] [address] Vegetable Washer: Juan Joe MD Protein [Mass/Vol] 6.2 g/dL Low 6.4-8.3 [facility] Comment on above: Performed By: #### L IVP, LIP, BMPX, HH #### [facility] [address] [place] [address] Vegetable Washer: Juan Joe MD Sodium [Moles/Vol] 130 mmol/L Low 135-144 [facility] Comment on above: Performed By: #### L IVP, LIP, BMPX, HH #### [facility] [address] [place] [address] Vegetable Washer: Juan Joe MD Urea nitrogen [Mass/Vol] 34 mg/dL High 8-23 [facility] Comment on above: Performed By: #### L IVP, LIP, BMPX, HH #### [facility] [address] [place] [address] Vegetable Washer: Juan Joe MD Albumin [Mass/Vol] 2.8 g/dL Low 3.5-5.2 [facility] Comment on above: Performed By: #### L IVP, LIP, BMPX, #### [facility] [address] [place] [address] Vegetable Washer: Juan Joe MD Alkaline Phos 628 U/L High 35-104 [facility] Comment on above: Performed By: #### L IVP, LIP, BMPX, HH #### [facility] [address] [facility] [place] [address] Vegetable Washer: Juan Joe MD ALT [Catalytic activity/Vol] 61 U/L High 5-33 [facility] Comment on above: Performed By: #### L IVP, LIP, BMPX, HH #### [facility] [address] [facility] [place] [address] Vegetable Washer: Juan Joe MD Anion gap [Moles/Vol] 12 mmol/L Normal 9-17 [facility] Comment on above: Performed By: #### L IVP, LIP, BMPX, HH #### [facility] [address] [place] [address]. [place] [address] Vegetable Washer: Juan Joe MD AST [Catalytic activity/Vol] 47 U/L High <32 [facility] Comment on above: Performed By: #### L IVP, LIP, BMPX, HH #### [facility] [address] [facility] [place] [address] Vegetable Washer: Juan Joe MD Bilirubin [Mass/Vol] 2.7 mg/dL High 0.3-1.2 [facility] Comment on above: Performed By: #### L IVP, LIP, BMPX, HH #### [facility] [address] [place] [address] Vegetable Washer: Juan Joe MD BUN/CRE Ratio 37 High 9-20 [facility] Comment on above: Performed By: #### L IVP, LIP, BMPX, #### [facility] [address] [place] [address] Vegetable Washer: Juan Joe MD Calcium [Mass/Vol] 8.2 mg/dL Low 8.6-10.4 [facility] Comment on above: Performed By: #### L IVP, LIP, BMPX, #### [facility] [place] [address] Vegetable Washer: Juan oJe MD Chloride [Moles/Vol] 103 mmol/L Normal 98-107 [facility] Comment on above: Performed By: #### L IVP, LIP, BMPX, HH #### [facility] [address] [place] [address] Vegetable Washer: Juan Joe MD CO2 [Moles/Vol] 15 mmol/L Low 20-31 [facility] Comment on above: Performed By: #### L IVP, LIP, BMPX, #### [facility] [place] [address] Vegetable Washer: Juan Joe MD Creatinine [Mass/Vol] 0.9 mg/dL Normal 0.5-0.9 [facility] Comment on above: Result Comment: ICTE DMITRIY SPECIMEN Performed By: #### L IVP, LIP, BMPX, HH #### [facility] [address] [place] [address] Vegetable Washer: Juan Joe MD GFR/1.73 sq M.predicted among non-blacks MDRD (S/P/Bld) [Vol rate/Area] mL/min/{1.73_m2} Normal >60 [facility] Comment on above: Result Comment: These results [...] affects renal tubular secretion. Performed By: #### L IVP, LIP, BMPX, HH #### [facility] [address] [facility] [place] [address] Vegetable Washer: Juan Joe MD Glucose [Mass/Vol] 374 mg/dL High 70-99 [facility] Comment on above: Performed By: #### L IVP, LIP, BMPX, HH #### [facility] [address] [facility] [place] [address] Vegetable Washer: Juan Joe MD Potassium [Moles/Vol] 5.9 mmol/L High 3.7-5.3 [facility] Comment on above: Performed By: #### L IVP, LIP, BMPX, HH #### [facility] [facility] [place] [address] Vegetable Washer: Juan Joe MD Protein [Mass/Vol] 5.7 g/dL Low 6.4-8.3 [facility] Comment on above: Performed By: #### L IVP, LIP, BMPX, HH #### [facility] [facility] [place] [address] Vegetable Washer: Juan Joe MD Sodium [Moles/Vol] 130 mmol/L Low 135-144 [facility] Comment on above: Performed By: #### L IVP, LIP, BMPX, HH #### [facility] [address] [facility], [place] [address] Vegetable Washer: Juan Joe MD Urea nitrogen [Mass/Vol] 33 mg/dL High 8-23 [facility] Comment on above: Performed By: #### L IVP, LIP, BMPX, #### [facility] [address] [place], [place] [address] Vegetable Washer: Juan Joe MD Comprehensive Metabolic Pane l w/ Reflex to MGon 04-26-2023 Albumin [Mass/Vol] 3.1 g/dL Low 3.5 - 5.2 g/dL [facility] ALP [Catalytic activity/Vol] 695 U/L High 35 - 104 U/L [facility] ALT [Catalytic activity/Vol] 67 U/L High 5 - 33 U/L [facility] Anion gap [Moles/Vol] 15 mmol/L 9 - 17 mmol/L [facility] AST [Catalytic activity/Vol] 50 U/L High NINF - 32 U/L [facility] Bilirubin [Mass/Vol] 3.0 mg/dL High 0.3 - 1 .2 mg/dL [facility] Calcium [Mass/Vol] 8.5 mg/dL Low 8.6 - 10. 4 mg/dL [facility] Chloride [Moles/Vol] 101 mmol/L 98 - 10 7 mmol/L [facility] CO2 [Moles/Vol] 14 mmol/L Low 20 - 31 mmol/L [facility] Creatinine [Mass/Vol] 1.1 mg/dL High 0.5 - 0.9 mg/dL [facility] Comment on above: ICTERIC SPECIMEN GFR/1.73 sq M.predicted MDRD (S/P/Bld) [Vol rate/Area] 56 mL/min/{1.73_m2} Low - PINF [facility] Comment on above: These results are not [...] Critically high 70 - 9 9 mg/dL [facility] Interpretation and review of laboratory results Abnormal [facility] Potassium [Moles/Vol] 5.4 mmol/L High 3.7 - 5.3 mmol/L [facility] Protein [Mass/Vol] 6.2 g/dL Low 6.4 - 8.3 g/dL [facility] Sodium [Moles/Vol] 130 mmol/L Low 135 - 144 mmol/L [facility] Urea nitrogen [Mass/Vol] 34 mg/dL High 8 - 23 mg/dL [facility] Urea nitrogen/Creatinine [Mass ratio] 31 mg/mg High 9 - 20 [facility] Albumin [Mass/Vol] 2.8 g/dL Low 3.5 - 5.2 g/dL [facility] ALP [Catalytic activity/Vol] 628 U/L High 35 - 104 U/L [facility] ALT [Catalytic activity/Vol] 61 U/L High 5 - 33 U/L [facility] Anion gap [Moles/Vol] 12 mmol/L 9 - 17 mmol/L [facility] AST [Catalytic activity/Vol] 47 U/L High NINF - 32 U/L [facility] Bilirubin [Mass/Vol] 2.7 mg/dL High 0.3 - 1 .2 mg/dL [facility] Calcium [Mass/Vol] 8.2 mg/dL Low 8.6 - 10. 4 mg/dL [facility] Chloride [Moles/Vol] 103 mmol/L 98 - 10 7 mmol/L [facility] CO2 [Moles/Vol] 15 mmol/L Low 20 - 31 mmol/L [facility] Creatinine [Mass/Vol] 0.9 mg/dL 0.5 - 0.9 mg/dL [facility] Comment on above: ICTERIC SPECIMEN GFR/1.73 sq M.predicted MDRD (S/P/Bld) [Vol rate/Area] - PINF [facility] Comment on above: These results are not [...] 374 mg/dL High 70 - 99 mg/dL [facility] Potassium [Moles/Vol] 5.9 mmol/L High 3.7 - 5.3 mmol/L [facility] Protein [Mass/Vol] 5.7 g/dL Low 6.4 - 8.3 g/dL [facility] Sodium [Moles/Vol] 130 mmol/L Low 135 - 144 mmol/L [facility] Urea nitrogen [Mass/Vol] 33 mg/dL High 8 - 23 mg/dL [facility] Urea nitrogen/Creatinine [Mass ratio] 37 mg/mg High 9 - 20 [facility] Creatine Kinaseon 04-26-2023 CK [Catalytic activity/Vol] 28 U/L Normal 26-192 [facility] Comment on above: Performed By: #### L IVP, LIP, BMPX, #### [facility] [address] [facility] [place] [address] Vegetable Washer: Juan Joe MD Cytology, Non-Gynon 04-26-19 [facility] Ferritinon 04-26-2023 Ferritin [Mass/Vol] 173 ng/mL High 13 - 150 ng/mL [facility] Interpretation and review of laboratory results Abnormal [facility] Fibrin Split Prodon 04-26-19 Fibrin Split Prod <5 Normal <5 [facility] Comment on above: Performed By: #### L IVP, LIP, BMPX, HH #### [facility] [address] [facility] [place] [address] Vegetable Washer: Juan Joe MD Fibrin Split Productson 04-04 FDP <5 NINF - 5 ug/mL [facility] Fibrinogenon 04-26-2023 Fibrinogen 639 mg/dL High 179-518 [facility] Comment on above: Performed By: #### L IVP, LIP, BMPX, #### [facility] [address] [place] [address] Vegetable Washer: Juan Joe MD Fibrinogen Coag (PPP) [Mass/Vol] 639 mg/dL High 179 - 518 mg/dL [facility] Interpretation and review of laboratory results Abnormal [facility] Haptoglobinon 04-26-2023 Haptoglobin 376 mg/dL High 30-200 [facility] Comment on above: Performed By: #### L IVP, LIP, BMPX, #### [facility] [address] [place] [address] Vegetable Washer: Juan Joe MD Haptoglobin [Mass/Vol] 376 mg/dL High 30 - 200 mg/dL [facility] Interpretation and review of laboratory results Abnormal [facility] Hemoglobin and Hematocriton 04-26-2023 Hematocrit (Bld) [Volume fraction] 22.2 % Low 36.3 - 47.1 % [facility] Hemoglobin (Bld) [Mass/Vol] 7.1 g/dL Low 11.9 - 15.1 g/dL [facility] Interpretation and review of laboratory results Abnormal [facility] Hgb/Hcton 04-26-2023 Hematocrit (Bld) [Volume fraction] 22.2 % Low 36.3-47.1 [facility] Comment on above: Performed By: #### L IVP, LIP, BMPX, #### [facility] [address] [facility] [place] [address] Vegetable Washer: Juan Joe MD Hemoglobin (Bld) [Mass/Vol] 7.1 g/dL Low 11.9-15.1 [facility] Comment on above: Performed By: #### L IVP, LIP, BMPX, #### [facility] [address] [place], [place] [address] Vegetable Washer: Juan Joe MD Lipaseon 04-26-2023 Lipase [Catalytic activity/Vol] 531 U/L High 13-60 [facility] Comment on above: Performed By: #### L IVP, LIP, BMPX, HH #### [facility] [address] [place] [address] Vegetable Washer: Juan Joe MD Lipase [Catalytic activity/Vol] 531 U/L High 13 - 60 U/L [facility] No Panel Informationon 04-26 [facility] Interpretation and review of laboratory results Abnormal [facility] Non-Steep Tender Cytologyon Case No: [id number] Normal [facility] Comment on above: Performed By: #### N DISPATCHER SERVICE OR WORK #### [place] [address] [place], [place] [id number] Vegetable Washer: Mu Roberson MD POC Glucose Fingerstickon Glucose [Mass/Vol] 395 mg/dL High 65 - 105 mg/dL [facility] Interpretation and review of laboratory results Abnormal [facility] Glucose [Mass/Vol] 403 mg/dL Critically high 65 - 1 05 mg/dL [facility] Interpretation and review of laboratory results Abnormal [facility] Glucose [Mass/Vol] 361 mg/dL High 65 - 105 mg/dL [facility] Interpretation and review of laboratory results Abnormal [facility] Retic Counton 04-26-2023 Absolute Retic 0.113 M/uL High 0.030-0.080 [facility] Comment on above: Performed By: #### L IVP, LIP, BMPX, HH #### [facility] [address] [facility] [place] [address] Vegetable Washer: Juan Joe MD IRF 38.0 % High 2.7-18.3 [facility] Comment on above: Performed By: #### L IVP, LIP, BMPX, HH #### [facility] [facility] [place] [address] Vegetable Washer: Juan Joe MD Retic Count 4.2 % High 0.5-1.9 [facility] Comment on above: Performed By: #### L IVP, LIP, BMPX, HH #### [facility] [address] [place] [address]. [place] [address] Vegetable Washer: Juan Joe MD Retic Hemoglobin 29.8 pg Normal 28.2-35.7 [facility] Comment on above: Performed By: #### L IVP, LIP, BMPX, HH #### [facility] [address] [place] [address]. [place] [address] Vegetable Washer: Juan Joe MD Reticulocyteson 04-26-2023 Immature reticulocytes/Total reticulocytes (Bld) 38.0 % High 2.7 - 18.3 % [facility] Interpretation and review of laboratory results Abnormal [facility] Retic Hemoglobin 29.8 pg 28.2 - 35.7 pg [facility] Reticulocytes (Bld) [#/Vol] 0.113 10*3/uL High [facility] Reticulocytes/100 RBC (Bld) 4.2 % High 0.5 - 1.9 % [facility] Specimen Rejectionon 024 Reason for rejection Unable to perform testing: Results suspect due to history of previous lab Normal [facility] Comment on above: Result Comment: resu lts. Performed By: #### L IVP, LIP, BMPX, HH #### [facility] [address] [place], [place] [address] Vegetable Washer: Juan Joe MD Source of sample .BLOOD Normal [facility] Comment on above: Performed By: #### L IVP, LIP, BMPX, HH #### [facility] [address] [facility] [place], [place] [address] Vegetable Washer: Juan Joe MD Test ordered CDP Normal [facility] Comment on above: Performed By: #### L IVP, LIP, BMPX, HH #### [facility] [address] [facility] [place] [address] Vegetable Washer: Juan Joe MD Surgical Pathology Reporton 04-26-2023 Surgical Pathology Report (NOTE) [facility] [employer] [facility] ANATOMIC PATHOLOGY [address] [place] [address]. [place], [place] [address] SURGICAL PATHOLOGY CONSULTATION Patient Name: KARUNA NELSON MR#: [id number] Specimen #[id number] Procedures/Addenda PERIPHERAL BLOOD REPORT Date Ordered: 04/27/2023 [...] the electronic health record for CBC parameters ([id number], 04/26/2023, 09:51). Note: The electronic health record is reviewed. [place] Source: A: Peripheral Blood Normal [facility] Trop/Myoglobinon 04-26-2023 Myoglobin [Mass/Vol] 54 ng/mL Normal 25-58 [facility] Comment on above: Performed By: #### L IVP, LIP, BMPX, #### [facility] [address] [facility] [place], [place] [address] Vegetable Washer: Juan Joe MD Troponin, High Sens 26 ng/L High 0-14 [facility] Comment on above: Result Comment: High Sensitivity Troponin values cannot be compared with other Troponin methodologies. Performed By: #### L IVP, LIP, BMPX, #### [facility] [address] [facility] [place] [address] Vegetable Washer: Juan Joe MD Interpretation and review of laboratory results Abnormal [facility] Myoglobin [Mass/Vol] 54 ng/mL 25 - 58 ng/mL [facility] Troponin I.cardiac High sensitivity method [Mass/Vol] 26 ng/L High 0 - 14 ng/L [facility] Comment on above: High Sensitivity Tro ponin values cannot be compared with other Troponin methodologies. [facility] CT CHEST ABDOMEN PELVIS W CO NTRASTon [...] obstructive jaundice, incidental pulmonary nodules identified on [employer] PROVIDED HISTORY: Pancreatic mass, obstructive jaundice, incidental [...] Poncho Trejo MD 04/24/23 Final result Normal [facility] FLUORO FOR SURGICAL PROCEDUR ESon 04-25-2023 FLUORO FOR SURGICAL PROCEDURES Radiology exam is complete. No Radiologist dictation. Please follow up with ordering provider. Final result Normal [facility] Guidance-- during surgeryon 04-25-2023 Radiology exam is complete. No Radiologist dictation. Please follow up with ordering provider. [facility] RIS CONSOLIDATED POC Glucose Fingerstickon Glucose [Mass/Vol] 305 mg/dL High 65 - 105 mg/dL [facility] Interpretation and review of laboratory results Abnormal [facility] Glucose [Mass/Vol] 362 mg/dL High 65 - 105 mg/dL [facility] Interpretation and review of laboratory results Abnormal [facility] Surgical Pathology Reporton 04-25-2023 Surgical Pathology Report (NOTE) Path Number: [id number] -- Diagnosis -- A. DUODENUM, BIOPSY: -SMALL [...] INCLUSIONS. Aditya Good M.D. Electronically Signed Out naida/04/27/2023 Clinical Information Pre-Op Diagnosis: OBSTRUCTIVE JAUNDICE; PANCREATIC [...] cm. Entirely 1cs. jj tm Nan Arnold M.D./:04/26/2023 Microscopic Description A-C. Microscopic examination performed. H. pylori immunostain performed because no organisms apparent on FARIDEH. C. Pancytokeratin immunostain was performed and reveals no infiltrating malignant epithelial cells. Control reacts as expected. Processing Lab: [address] [id number] Interpretation Performed at [address] [id number] SURGICAL PATHOLOGY CONSULTATION Patient Name: KARUNA NELSON [facility] Rec: [id number] [employer] ANATOMIC PATHOLOGY [address] [place] [address]. [place], [place] [address] Normal [facility] Surgical Pathology Report (NOTE) [id number] [facility] ANATOMIC PATHOLOGY [address] [place] [address]. [place], [place] [address] NONGYNECOLOGICAL CYTOPATHOLOGY CONSULTATION Patient Name: KARUNA NELSON MR#: [id number] Specimen #[id number] Procedures/Addenda ADDENDUM AFTER SPECIAL STAINS Date Ordered: 05/22/2023 Status: Signed Out Date Complete: 05/22/2023 By: Nan Arnold M.D. Date Reported: 05/22/2023 INTERPRETATION AT THE REQUEST OF DR. FRANCINE SARABIA, BLOCK A1 WAS SENT TO [employer] FOR HER2 AND PD-L1 LDT STUDIES. THE RESULTS ARE FOLLOWS: HER2 (OTHER) WITH BREAST SCORING: NEGATIVE SCORE: 0 PD-L1 LDT: NOT DETECTED % IC / TOTAL VIABLE TUMOR CELLS: 0% % IC / TOTAL VIABLE TUMOR CELLS: 0% TOTAL PD-L1 EXPRESSION: 0 PLEASE SEE [employer]' COMPLETE REPORT ([id number]) FOR DETAILS. Nan Arnold M.D. MOLECULAR PATHOLOGY REPORT Date Ordered: 05/22/2023 Status: Signed Out Date Complete: 05/22/2023 By: Nan Arnold M.D. Date Reported: 05/22/2023 INTERPRETATION AT THE REQUEST OF DR. FRANCINE SARABIA, BLOCK A1 WAS SENT TO [facility] FOR NEXT GENERATION SEQUENCING AND FISH ANALYSIS. THE RESULTS ARE FOLLOWS: NEXT GENERATION SEQUENCING (NGS) AND ADDITIONAL MOLECULAR TESTING: NOT PERFORMED INSUFFICIENT TUMOR IS PRESENT FISH ANALYSIS NeoTYPE9 PANCREAS TUMOR PANEL: QNS INSUFFICIENT TUMOR REMAINING ON THE LEVEL SECTIONS FOR FISH PLEASE SEE [employer]' COMPLETE REPORT ([id number]) FOR DETAILS. Nan Arnold M.D. Final Diagnosis FINE NEEDLE ASPIRATION EUS PANCREATIC HEAD MASS: POSITIVE FOR MALIGNANCY. Adenocarcinoma. See comment. FINE NEEDLE ASPIRATION EUS LEFT ADRENAL GLAND MASS: NEGATIVE FOR MALIGNANCY. Benign adrenal cortical tissue. See comment. BRUSHING BILIARY: NEGATIVE FOR MALIGNANCY. Diagnosis Comment The FNA of the adrenal gland shows benign adrenal cortical tissue. This could represent an adrenal cortical adenoma or benign adrenal gland. Clinical correlation is recommended. Slides are reviewed by additional pathologists who concur with these diagnostic findings (SS, AG, LF, DS). Nan Arnold, Electronically Signed Out kmg2/04/28/2023 Clinical Information Obstructive jaundice K83.1. Pancreatic mass K86.89. Source: A: FINE NEEDLE ASPIRATION EUS PANCREATIC HEAD MASS B: FINE NEEDLE ASPIRATION EUS LEFT ADRENAL GLAND MASS C: BRUSHING BILIARY Gross Description A. PANCREATIC HEAD MASS Specimen [...] and shows patchy focal positivity in B1. Normal [facility] CBC auto differentialon 04-04 Basophils (Bld) [#/Vol] 0.12 10*3/uL [facility] Basophils/100 WBC (Bld) 1 % 0 - 2 % [facility] Eosinophils (Bld) [#/Vol] 0.40 10*3/uL [facility] Eosinophils/100 WBC (Bld) 4 % 1 - 4 % [facility] Erythrocyte distribution width (RBC) [Ratio] 19.1 % High 11.8 - 14.4 % [facility] Hematocrit (Bld) [Volume fraction] 28.3 % Low 36.3 - 47.1 % [facility] Hemoglobin (Bld) [Mass/Vol] 8.9 g/dL Low 11.9 - 15.1 g/dL [facility] Immature granulocytes (Bld) [#/Vol] 0.07 10*3/uL [facility] Immature granulocytes/100 WBC (Bld) 1 % High 0 [facility] Interpretation and review of laboratory results Abnormal [facility] Lymphocytes/100 WBC (Bld) 14 % Low 24 - 43 % [facility] Lymphocytes/100 WBC (Bld) 1.25 % [facility] MCH (RBC) [Entitic mass] 27.1 pg 25.2 - 33.5 pg [facility] MCHC (RBC) [Mass/Vol] 31.4 g/dL 28.4 - 34.8 g/dL [facility] MCV (RBC) [Entitic vol] 86.3 fL 82.6 - 102.9 fL [facility] Monocytes/100 WBC (Bld) 8 % 3 - 12 % [facility] Monocytes/100 WBC (Bld) 0.70 % [facility] Neutrophils/100 WBC (Bld) 72 % High 36 - 65 % [facility] Nucleated RBC/100 WBC (Bld) [Ratio] 0.0 % 0.0 per 100 WBC [facility] Platelet mean volume (Bld) [Entitic vol] 11.5 fL 8.1 - 13.5 fL [facility] Platelets (Bld) [#/Vol] 305 10*3/uL [facility] RBC (Bld) [#/Vol] 3.28 10*6/uL Low 3.95 - 5.1 1 m/uL [facility] RBC (Bld) [#/Vol] ANISOCYTOSIS PRESENT [facility] Segmented neutrophils/100 WBC (Bld) 6.70 % [facility] WBC other (Bld) [#/Vol] 9.2 [facility] CBC with Diffon 04-24-2023 Abs. Basophil 0.12 k/uL Normal 0.00-0.20 [facility] Comment on above: Performed By: #### L IVP, LIP, BMPX, #### [facility] [address] [facility] [place] [address] Vegetable Washer: Juan Joe MD Abs.Imm.Granulocyte 0.07 k/uL Normal 0.00-0.30 [facility] Comment on above: Performed By: #### L IVP, LIP, BMPX, #### [facility] [address] [facility] [place] [address] Vegetable Washer: Juan Joe MD Abs.Neutrophil (Seg) 6.70 k/uL Normal 1.50-8.10 [facility] Comment on above: Performed By: #### L IVP, LIP, BMPX, HH #### [facility] [address] [place] [address] Vegetable Washer: Juan Joe MD Basophils/100 WBC (Bld) 1 % Normal 0-2 [facility] Comment on above: Performed By: #### L IVP, LIP, BMPX, HH #### [facility] [facility] [place] [address] Vegetable Washer: Juan Joe MD Eosinophils (Bld) [#/Vol] 0.40 10*3/uL Normal 0.00-0.44 [facility] Comment on above: Performed By: #### L IVP, LIP, BMPX, HH #### [facility] [facility] [place] [address] Vegetable Washer: Juan Joe MD Eosinophils/100 WBC (Bld) 4 % Normal 1-4 [facility] Comment on above: Performed By: #### L IVP, LIP, BMPX, HH #### [facility] [address] [place], [place] [address] [place] [address] Vegetable Washer: Juan Joe MD Erythrocyte distribution width (RBC) [Ratio] 19.1 % High 11.8-14.4 [facility] Comment on above: Performed By: #### L IVP, LIP, BMPX, HH #### [facility] [facility] [place] [address] Vegetable Washer: Juan Joe MD Hematocrit (Bld) [Volume fraction] 28.3 % Low 36.3-47.1 [facility] Comment on above: Performed By: #### L IVP, LIP, BMPX, HH #### [facility] [address] [place] [address] Vegetable Washer: Juan Joe MD Hemoglobin (Bld) [Mass/Vol] 8.9 g/dL Low 11.9-15.1 [facility] Comment on above: Performed By: #### L IVP, LIP, BMPX, HH #### [facility] [address] [place] [address] Vegetable Washer: Juan Joe MD Immature granulocytes/100 WBC (Bld) 1 % High 0 [facility] Comment on above: Performed By: #### L IVP, LIP, BMPX, HH #### [facility] [place] [address] Vegetable Washer: Juan Joe MD Lymphocytes (Bld) [#/Vol] 1.25 10*3/uL Normal 1.10-3.70 [facility] Comment on above: Performed By: #### L IVP, LIP, BMPX, HH #### [facility] [place] [address] Vegetable Washer: Juan Joe MD Lymphocytes/100 WBC (Bld) 14 % Low 24-43 [facility] Comment on above: Performed By: #### L IVP, LIP, BMPX, HH #### [facility] [place] [address] Vegetable Washer: Juan Joe MD MCH (RBC) [Entitic mass] 27.1 pg Normal 25.2-33.5 [facility] Comment on above: Performed By: #### L IVP, LIP, BMPX, HH #### [facility] [place] [address] Vegetable Washer: Juan Joe MD MCHC (RBC) [Mass/Vol] 31.4 g/dL Normal 28.4-34.8 [facility] Comment on above: Performed By: #### L IVP, LIP, BMPX, HH #### [facility] [address] [facility] [place] [address] Vegetable Washer: Juan Joe MD MCV (RBC) [Entitic vol] 86.3 fL Normal 82.6-102.9 [facility] Comment on above: Performed By: #### L IVP, LIP, BMPX, HH #### [facility] [address] [place] [address]. [place] [address] Vegetable Washer: Juan Joe MD Monocytes (Bld) [#/Vol] 0.70 10*3/uL Normal 0.10-1.20 [facility] Comment on above: Performed By: #### L IVP, LIP, BMPX, HH #### [facility] [address] [place] [address]. [place] [address] Vegetable Washer: Juan Joe MD Monocytes/100 WBC (Bld) 8 % Normal 3-12 [facility] Comment on above: Performed By: #### L IVP, LIP, BMPX, HH #### [facility] [address] [place] [address]. [place] [address] Vegetable Washer: Juan Joe MD Neutrophil (Seg) 72 % High 36-65 [facility] Comment on above: Performed By: #### L IVP, LIP, BMPX, HH #### [facility] [address] [place] [address]. [place] [address] Vegetable Washer: Juan Joe MD NRBC Automated 0.0 per 100 WBC Normal 0.0 [facility] Comment on above: Performed By: #### L IVP, LIP, BMPX, HH #### [facility] [address] [place] [address] Vegetable Washer: Juan Joe MD Platelet mean volume (Bld) [Entitic vol] 11.5 fL Normal 8.1-13.5 [facility] Comment on above: Performed By: #### L IVP, LIP, BMPX, HH #### [facility] [address] [place] [address] Vegetable Washer: Juan Joe MD Platelets (Bld) [#/Vol] 305 10*3/uL Normal 138-453 [facility] Comment on above: Performed By: #### L IVP, LIP, BMPX, HH #### [facility] [facility] [place] [address] Vegetable Washer: Juan Joe MD RBC (Bld) [#/Vol] 3.28 10*6/uL Low 3.95-5.11 [facility] Comment on above: Performed By: #### L IVP, LIP, BMPX, HH #### [facility] [facility] [place] [address] Vegetable Washer: Juan Joe MD RBC morphology finding Nom (Bld) ANISOCYTOSIS PRESENT Normal [facility] Comment on above: Performed By: #### L IVP, LIP, BMPX, HH #### [facility] [address] [facility] [place] [address] Vegetable Washer: Juan Joe MD WBC (Bld) [#/Vol] 9.2 10*3/uL Normal 3.5-11.3 [facility] Comment on above: Performed By: #### L IVP, LIP, BMPX, HH #### [facility] [place] [address] Vegetable Washer: Juan Joe MD CT Chest and Abdomen [...] to Lung-RADS guidelines. Reference: Radiology. 2017; 284(1):228-43. 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 [facility] RIS CONSOLIDATED Poncho Trejo MD - 04/24/2023 [...] obstructive jaundice, incidental pulmonary nodules identified on MAIL PROCESSING EQUIPMENT MECHANIC PROVIDED HISTORY: Pancreatic mass, obstructive jaundice, incidental [...] to Lung-RADS guidelines. Reference: Radiology. 2017; 284(1):228-43. [facility] Radiology Study observation (narrative) [facility] CT Chest and Abdomen and Pel vis W contrast IVOrdered By: Poncho Trejo on 04-24-2023 [facility] Work Phone: Comp Metabolic Pr/rfx MGon 0 04-24-2023 Albumin [Mass/Vol] 3.0 g/dL Low 3.5-5.2 [facility] Comment on above: Performed By: #### N DISPATCHER SERVICE OR WORK #### [employer] [address] [place] [address] Vegetable Washer: Mu Roberson MD Alkaline Phos 801 U/L High 35-104 [facility] Comment on above: Performed By: #### N DISPATCHER SERVICE OR WORK #### [facility] [address] [place] [address] Vegetable Washer: Mu Roberson MD ALT [Catalytic activity/Vol] 88 U/L High 5-33 [facility] Comment on above: Performed By: #### N DISPATCHER SERVICE OR WORK #### [address] [address] Vegetable Washer: Mu Roberson MD Anion gap [Moles/Vol] 10 mmol/L Normal 9-17 [facility] Comment on above: Performed By: #### N DISPATCHER SERVICE OR WORK #### [address] [address] Vegetable Washer: Mu Roberson MD AST [Catalytic activity/Vol] 56 U/L High <32 [facility] Comment on above: Performed By: #### N DISPATCHER SERVICE OR WORK #### [address] [address] Vegetable Washer: Mu Roberson MD Bilirubin [Mass/Vol] 6.3 mg/dL High 0.3-1.2 [facility] Comment on above: Performed By: #### N DISPATCHER SERVICE OR WORK #### [address] [address] Vegetable Washer: Mu Roberson MD BUN/CRE Ratio 39 High 9-20 [facility] Comment on above: Performed By: #### N DISPATCHER SERVICE OR WORK #### [facility] [address] [place] [address] Vegetable Washer: Mu Roberson MD Calcium [Mass/Vol] 8.7 mg/dL Normal 8.6-10.4 [facility] Comment on above: Performed By: #### N DISPATCHER SERVICE OR WORK #### [address] [address] Vegetable Washer: Mu Roberson MD Chloride [Moles/Vol] 105 mmol/L Normal 98-107 [facility] Comment on above: Performed By: #### N DISPATCHER SERVICE OR WORK #### [facility] [address] [place] [address] Vegetable Washer: Mu Roberson MD CO2 [Moles/Vol] 15 mmol/L Low 20-31 [facility] Comment on above: Performed By: #### N DISPATCHER SERVICE OR WORK #### [address] [address] Vegetable Washer: Mu Roberson MD Creatinine [Mass/Vol] 0.8 mg/dL Normal 0.5-0.9 [facility] Comment on above: Result Comment: ICTE DMITRIY SPECIMEN Performed By: #### N DISPATCHER SERVICE OR WORK #### [address] [address] Vegetable Washer: Mu Roberson MD GFR/1.73 sq M.predicted among non-blacks MDRD (S/P/Bld) [Vol rate/Area] mL/min/{1.73_m2} Normal >60 [facility] Comment on above: Result Comment: These results [...] renal tubular secretion. Performed By: #### N DISPATCHER SERVICE OR WORK #### [address] [address] Vegetable Washer: Mu Roberson MD Glucose [Mass/Vol] 334 mg/dL High 70-99 [facility] Comment on above: Performed By: #### N DISPATCHER SERVICE OR WORK #### [address] [address] Vegetable Washer: Mu Roberson MD Potassium [Moles/Vol] 5.2 mmol/L Normal 3.7-5.3 [facility] Comment on above: Performed By: #### N DISPATCHER SERVICE OR WORK #### [facility] [address] [place] [address] Vegetable Washer: Mu Roberson MD Protein [Mass/Vol] 6.1 g/dL Low 6.4-8.3 [facility] Comment on above: Performed By: #### N DISPATCHER SERVICE OR WORK #### [facility] [address] [place] [address] Vegetable Washer: Mu Roberson MD Sodium [Moles/Vol] 130 mmol/L Low 135-144 [facility] Comment on above: Performed By: #### N DISPATCHER SERVICE OR WORK #### [facility] [address] [place] [address] Vegetable Washer: Mu Roberson MD Urea nitrogen [Mass/Vol] 31 mg/dL High 8-23 [facility] Comment on above: Performed By: #### N DISPATCHER SERVICE OR WORK #### [facility] [address] [place] [address] Vegetable Washer: Mu Roberson MD Comprehensive Metabolic Pane l w/ Reflex to MGon 04-24-2023 Albumin [Mass/Vol] 3.0 g/dL Low 3.5 - 5.2 g/dL [facility] ALP [Catalytic activity/Vol] 801 U/L High 35 - 104 U/L [facility] ALT [Catalytic activity/Vol] 88 U/L High 5 - 33 U/L [facility] Anion gap [Moles/Vol] 10 mmol/L 9 - 17 mmol/L [facility] AST [Catalytic activity/Vol] 56 U/L High NINF - 32 U/L [facility] Bilirubin [Mass/Vol] 6.3 mg/dL High 0.3 - 1 .2 mg/dL [facility] Calcium [Mass/Vol] 8.7 mg/dL 8.6 - 10. 4 mg/dL [facility] Chloride [Moles/Vol] 105 mmol/L 98 - 10 7 mmol/L [facility] CO2 [Moles/Vol] 15 mmol/L Low 20 - 31 mmol/L [facility] Creatinine [Mass/Vol] 0.8 mg/dL 0.5 - 0.9 mg/dL [facility] Comment on above: ICTERIC SPECIMEN GFR/1.73 sq M.predicted MDRD (S/P/Bld) [Vol rate/Area] - PINF [facility] Comment on above: These results are not [...] 334 mg/dL High 70 - 99 mg/dL [facility] Potassium [Moles/Vol] 5.2 mmol/L 3.7 - 5.3 mmol/L [facility] Protein [Mass/Vol] 6.1 g/dL Low 6.4 - 8.3 g/dL [facility] Sodium [Moles/Vol] 130 mmol/L Low 135 - 144 mmol/L [facility] Urea nitrogen [Mass/Vol] 31 mg/dL High 8 - 23 mg/dL [facility] Urea nitrogen/Creatinine [Mass ratio] 39 mg/mg High 9 - 20 [facility] ED Note-Physicianon 04-24-19 24 ED Note-Physician [id number]#1.00TIF F Normal [facility] Lipaseon 04-24-2023 Lipase [Catalytic activity/Vol] 238 U/L High 13-60 [facility] Comment on above: Performed By: #### N DISPATCHER SERVICE OR WORK #### [employer] [facility] [place] [address] Vegetable Washer: Mu Roberson MD Lipase [Catalytic activity/Vol] 238 U/L High 13 - 60 U/L [facility] MR Abdomen WO and W contrast Yusra 04-24-2023 Radiology Study observation (narrative) [facility] Magnesiumon 04-24-2023 Magnesium [Mass/Vol] 1.9 mg/dL Normal 1.6-2.6 [facility] Comment on above: Performed By: #### N DISPATCHER SERVICE OR WORK #### [facility] [address] [place], [place] [address] Vegetable Washer: Mu Roberson MD Magnesium [Mass/Vol] 1.9 mg/dL 1.6 - 2 .6 mg/dL [facility] No Panel Informationon 04-24 Interpretation and review of laboratory results Abnormal [facility] POC Glucose Fingerstickon Glucose [Mass/Vol] 307 mg/dL High 65 - 105 mg/dL [facility] Interpretation and review of laboratory results Abnormal [facility] Glucose [Mass/Vol] 341 mg/dL High 65 - 105 mg/dL [facility] Interpretation and review of laboratory results Abnormal [facility] Glucose [Mass/Vol] 330 mg/dL High 65 - 105 mg/dL [facility] Interpretation and review of laboratory results Abnormal [facility] Phosphoruson 04-24-2023 Phosphate [Mass/Vol] 2.4 mg/dL Low 2.6 - 4 .5 mg/dL [facility] Phosphorus, Inorg.on 024 Phosphorus, Inorg. 2.4 mg/dL Low 2.6-4.5 [facility] Comment on above: Performed By: #### N DISPATCHER SERVICE OR WORK #### [facility] [address] [place], [place] [id number] Vegetable Washer: Mu Roberson MD RAD - CT Reporton 04-24-2023 RAD - CT Report [id number] [facility] [id number]#1.00TIF F Normal [facility] RAD - CT Report [id number]#1.00TIF F Normal [facility] RAD - CT Report [id number]#1.00TIFF Normal [facility] RAD - MISCon 04-24-2023 RAD - MISC [id number]#1.00TIFF Normal [facility] US GALLBLADDER RUQon 024 US GALLBLADDER RUQ EXAMINATION: RIGHT UPPER QUADRANT ULTRASOUND 04/24/2023 7:05 am COMPARISON: None. HISTORY: ORDERING SYSTEM PROVIDED HISTORY: pain > ?stone TECHNOLOGIST PROVIDED HISTORY: Pain > ?stone FINDINGS: LIVER: Suboptimal visualization secondary to over ribs. Normal echogenicity of the visualized liver without focal mass. Hepatopetal portal venous flow. BILIARY SYSTEM: No cholelithiasis, gallbladder wall thickening, or pericholecystic fluid. Prison Teacher reports some pain over the gallbladder/common duct. [...] Reid Ryan MD 04/24/23 Final result Normal [facility] US Gallbladderon 04-24-2023 [ 1. Dilated common duct up to 16 mm; no intrahepatic biliary ductal dilation appreciated. Normal sonographic appearance of the gallbladder. Patient reports some pain/tenderness over the region of the gallbladder/common duct. Recommend further evaluation with MRCP or ERCP. 2. Suboptimal visualization of the liver secondary to overlying structures. [facility] RIS CONSOLIDATED EXAMINATION: RIGHT UPPER QUADRANT ULTRASOUND 04/24/2023 7:05 am COMPARISON: None. HISTORY: ORDERING SYSTEM PROVIDED HISTORY: pain > ?stone TECHNOLOGIST PROVIDED HISTORY: Pain > ?stone FINDINGS: LIVER: Suboptimal visualization secondary to over ribs. Normal echogenicity of the visualized liver without focal mass. Hepatopetal portal venous flow. BILIARY SYSTEM: No cholelithiasis, gallbladder wall thickening, or pericholecystic fluid. Prison Teacher reports some pain over the gallbladder/common duct. Common duct measures 16 mm in diameter. RIGHT KIDNEY: 13-14 mm cortical cyst. Otherwise, normal cortical thickness and echogenicity. No hydronephrosis or distinct shadowing intrarenal calculus. PANCREAS: Visualized portions of the pancreas are unremarkable. OTHER: No evidence of right upper quadrant ascites. [facility] RIS Reid Wagoner MD - 04/24/2023 EXAMINATION: RIGHT UPPER QUADRANT ULTRASOUND 04/24/2023 7:05 am COMPARISON: None. HISTORY: ORDERING SYSTEM PROVIDED HISTORY: pain > ?stone TECHNOLOGIST PROVIDED HISTORY: Pain > ?stone FINDINGS: LIVER: Suboptimal visualization secondary to over ribs. Normal echogenicity of the visualized liver without focal mass. Hepatopetal portal venous flow. BILIARY SYSTEM: No cholelithiasis, gallbladder wall thickening, or pericholecystic fluid. Prison Teacher reports some pain over the gallbladder/common duct. [...] of the liver secondary to overlying structures. [facility] [employer] Radiology Study observation (narrative) [facility] US GallbladderOrdered By: Sherron Ryan on 04-24-2023 [facility] Work Phone: BUN & Creatinineon 4 Creatinine [Mass/Vol] 0.7 mg/dL 0.5 - 0.9 mg/dL [facility] Comment on above: ICTERIC SPECIMEN GFR/1.73 sq M.predicted MDRD (S/P/Bld) [Vol rate/Area] - PINF [facility] Comment on above: These results are not intended for use in patients <18 years of age. eGFR results are calculated without a race factor using the 2021 CKD-EPI equation. Careful clinical correlation is recommended, particularly when comparing to results calculated using previous equations. The CKD-EPI equation is less accurate in patients with extremes of muscle mass, extra-renal metabolism of creatine, excessive creatine ingestion, or following therapy that affects renal tubular secretion. Interpretation and review of laboratory results Abnormal [facility] Urea nitrogen [Mass/Vol] 43 mg/dL High 8 - 23 mg/dL [facility] BUN + Creatinineon Creatinine [Mass/Vol] 0.7 mg/dL Normal 0.5-0.9 [facility] Comment on above: Result Comment: ICTE DMITRIY SPECIMEN Performed By: #### N DISPATCHER SERVICE OR WORK #### [employer] [address] [place] [address] Vegetable Washer: Mu Roberson MD GFR/1.73 sq M.predicted among non-blacks MDRD (S/P/Bld) [Vol rate/Area] mL/min/{1.73_m2} Normal >60 [facility] Comment on above: Result Comment: These results are not intended for use in patients <18 years of age. eGFR results are calculated without a race factor using the 2021 CKD-EPI equation. Careful clinical correlation is recommended, particularly when comparing to results calculated using previous equations. The CKD-EPI equation is less accurate in patients with extremes of muscle mass, extra-renal metabolism of creatine, excessive creatine ingestion, or following therapy that affects renal tubular secretion. Performed By: #### N DISPATCHER SERVICE OR WORK #### [employer] [address] [place] [address] Vegetable Washer: Mu Roberson MD Urea nitrogen [Mass/Vol] 43 mg/dL High 8-23 [facility] Comment on above: Performed By: #### N DISPATCHER SERVICE OR WORK #### [employer] [address] [place] [address] Vegetable Washer: Mu Roberson MD Procalcitoninon 04-23-2023 Procalcitonin 0.26 ng/mL High 0.00-0.09 [facility] Comment on above: Result Comment: Suspected Sepsis: [...] entered into the Change in Procalcitonin Calculator ([email or web address].[email or web address]) to determine the patient's Mortality Risk Prognosis In healthy neonates, plasma Procalcitonin (PCT) concentrations increase gradually after , reaching peak values at about 24 hours of age then decrease to normal values below 0.5 ng/mL by 48-72 hours of age. Performed By: #### N DISPATCHER SERVICE OR WORK #### [employer] [facility] [place] [id number] Vegetable Washer: Mu Roberson MD Interpretation and review of laboratory results Abnormal [facility] Procalcitonin [Mass/Vol] 0.26 ng/mL High 0.00 - 0.09 ng/mL [facility] Comment on above: Suspected Sepsis: <0.50 ng/mL [...] entered into the Change in Procalcitonin Calculator (www.fcouqs-lpm-pwnmmkmxcb.com) to determine the patient's Mortality Risk Prognosis In healthy neonates, plasma Procalcitonin (PCT) concentrations increase gradually after , reaching peak values at about 24 hours of age then decrease to normal values below 0.5 ng/mL by 48-72 hours of age. [facility] Nurse Consultation Noteon Nurse Consultation Note Reason [...] post arm explaining as it is done. Elma held over sensor and activates new one. [...] 2 Flash Glucose Monitoring 14 Day System (Elma), See Instructions Freestyle Brady 2 Flash Glucose [...] influenza virus vaccine, inactivated 01/17/2016 Recorded Normal [facility] Insurance Correspondenceon 0 04-07-2023 Insurance Correspondence [id number]#1.00TI FF [facility] Insurance Correspondence [id number]#1.00TI FF [facility] Progress Note-Nurseon 2023 Progress Note-Nurse [id number]#1.00TI FF [facility] Heart and Vascular Office/Cl inic Noteon [...] have no records, with vascular surgery in [place]. Review of Systems PHQ Score Initial Depression [...] EKG is abnormal with ST-T wave changes. Vision Therapist had recommended a stress test in December of this year but insurance denied. Will resubmit as she now requires surgery under general anesthesia. 4. 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 Vision Therapist had ordered echocardiogram but insurance denied. Recommend [...] with voice recognition artificial intelligence software, specifically [employer], [facility] a (more content not included)... Normal [facility] Comment on above: Result Comment: Elec tronically Signed By: Radha DURBIN CNP\.twila\Date and Time Signed: 03/31/23 16:40 EST Physician Orderon 03-31-2023 Physician Order [id number]#1.00TI FF [facility] Consent for Treatmenton 03-04 Consent for Treatment [id number]#1.00TIF F [facility] Ambulatory Visit Summaryon 1 05-25-2022 Ambulatory Visit Summary KARUNA NELSON :1960 Visit Date:03/24/2023 Ambulatory Visit Instructions Your Care Team Attending Physician - Candis Meek Primary Care Physician - Esau Riddle MD This Is Your Medications List Misc Prescription (Freestyle Brady 2 Flash Glucose Monitoring 14 Day System (Elma)) Misc Prescription (Freestyle Brady 2 Flash Glucose [...] Follow-Up Appointments Monday 1:00 PM EST With: Esau Riddle MD Where: [facility] Family Medicine [facility] Nurse Consultation Noteon Nurse Consultation Note Assessment/Plan [...] 2 Flash Glucose Monitoring 14 Day System (Elma), See Instructions Freestyle Brady 2 Flash Glucose [...] virus vaccine, inactivated 01/17/2016 Recorded Normal [facility] Family Medicine Office/Clini c Noteon 03-23-2023 Family [...] scheduled for 03/31/[address] Minaya at [facility]. The patient's blood glucose levels have [...] with voice recognition artificial intelligence software, specifically Railpod, [facility] and or [employer]. Substitutions may have occurred due to the inherent limitations of voice recognition and artificial intelligence software. Documentation services were performed after patient or guardian consented to allow [employer] to record this visit. PATY account management specialist and provider reviewed before signing. PATY: Anette Wong Densing. Follow-up No qualifying data available Patient Education [...] calories Smo (more content not included)... Normal [facility] Comment on above: Result Comment: Elec tronically Signed By: Esau Riddle MD\.br\Date and Time Signed: 03/23/23 15:04 EST\.br\Electronically Co-Signed By: Anette Greenberg\.br\Date and Time Co-Signed: 03/22/23 17:40 EST Patient Educationon 03-22-20 Patient Education Nutrition BMI for Adults What [...] numbers. This can be done either in [place] ([place] or metric measurements. Note that charts and online BMI calculators are available to help you find your BMI quickly and easily without having to do these calculations yourself. To calculate your BMI in [place] ([place] measurements: 1. Measure your weight in [...] for Disease Control and Prevention: www.cdc.gov ? [place] Heart Association: www.heart.org ? National Heart, Lung, and Blood [place]: www.nhlbi.nih.gov Summary ? Body mass index (BMI) is a number that is calculated from a person's weight and height. ? BMI may help estimate how much of a person's weight is composed of fat. BMI can help identify those who may be at higher risk for certain medical problems. ? BMI can be measured using [place] measurements or metric measurements. ? BMI charts are used to identify whether you are underweight, normal weight, overweight, or obese. This information is not intended to replace advice given to you by your health care provider. Make sure you discuss any questions you have with your health care provider. Document Revised: 12/11/2019 Document Reviewed: 10/18/2019 Elsevier Patient Education ? 2022 Elsevier Inc. Normal [facility] A1C with Estimated Average Cosme aguilar 03-17-2023 Glucose [Mass/Vol] 212 mg/dL Normal [facility] Comment on above: Order Comment: Comme nt Add on Result Comment: PERF ORMED BY: [place] [address] PATHOLOGIST LOADING INSPECTOR KOREY FRANKS M.D. Performed By: #### A 1C [facility] eA #### [address] HbA1c (Bld) [Mass fraction] 9.0 % High 4.3-5.6 [facility] Comment on above: Order Comment: Comme nt Add on Result Comment: Incr eased risk for diabetes: 5.7 - 6.4 diabetes: >6.4 glycemic control for adults with diabetes: <7.0 Performed By: #### A 1C [facility] eA #### [facility] [address] [place] [address] Basic Metabolic Panelon 03-03 Anion gap [Moles/Vol] 11.1 mmol/L Normal 6.0-15.0 [facility] Comment on above: Performed By: #### G LULS #### Point of Care testing , Calcium [Mass/Vol] 8.6 mg/dL Normal 8.6-10.3 [facility] Comment on above: Performed By: #### G LULS #### Point of Care testing , Chloride [Moles/Vol] 104 mmol/L Normal 98-107 [facility] Comment on above: Performed By: #### G LULS #### Point of Care testing , CO2 [Moles/Vol] 22.6 mmol/L Normal 21.0-31.0 [facility] Comment on above: Performed By: #### G LULS #### Point of Care testing , Creatinine [Mass/Vol] 0.91 mg/dL Normal 0.60-1.20 [facility] Comment on above: Performed By: #### G LULS #### Point of Care testing , Creatinine Clr Calc Pharmacy 69.67 Normal [facility] Comment on above: Result Comment: PERF ORMED BY: [facility] [place] [address] PATHOLOGIST LOADING INSPECTOR KOREY FRANKS M.D. Performed By: #### G LULS #### Point of Care testing , GFR/1.73 sq M.predicted MDRD (S/P/Bld) [Vol rate/Area] mL/min/{1.73_m2} Normal [facility] Comment on above: Performed By: #### G LULS #### Point of Care testing , Glucose [Mass/Vol] 315 mg/dL Significant change up 70-100 [facility] Comment on above: Result Comment: [place] Glucose Reference Range is dependent on time and content of last meal. Glucose of more than 200 mg/dL in a nonstressed, ambulatory subject supports the diagnosis of Diabetes Mellitus. ADA recommended reference range Performed By: #### G LULS #### Point of Care testing , Potassium [Moles/Vol] 4.7 mmol/L Normal 3.5-5.1 [facility] Comment on above: Performed By: #### G LULS #### Point of Care testing , Sodium [Moles/Vol] 133 mmol/L Significant change down 136-145 [facility] Comment on above: Performed By: #### G LULS #### Point of Care testing , Urea nitrogen [Mass/Vol] 34 mg/dL High 7-25 [facility] Comment on above: Performed By: #### G LULS #### Point of Care testing , Basophils Auto (Bld) [#/Vol] Ordered By: Luc Vargas on 03-17-2023 Basophils (Bld) [#/Vol] 0.1 10*3/uL 0.0-0.2 [facility] Basophils/100 WBC Auto (Bld) Ordered By: Luc Vargas on 03-17-2023 Basophils/100 WBC (Bld) 0.3 % . [facility] Calcium [Mass/volume] in Ser um or PlasmaOrdered By: Luc Vargas on 03-17-2023 Calcium [Mass/Vol] 8.6 mg/dL 8.6-10.3 [facility] Capillary blood glucose alvin urement by glucometer (mass/volume)Ordered By: Luc Vargas on 03-17-2023 Glucose [Mass/Vol] 290 mg/dL Normal [facility] Comment on above: Random Glucose Refer ence Range is dependent on time and content of last meal. Glucose of more than 200 mg/dL in a nonstressed, ambulatory subject supports the diagnosis of Diabetes Mellitus. Result Comment: [place] om Glucose Reference Range is dependent on time and content of last meal. Glucose of more than 200 mg/dL in a nonstressed, ambulatory subject supports the diagnosis of Diabetes Mellitus. Performed By: #### G LULS #### Point of Care testing , Carbon dioxide, total [Moles /volume] in Serum or PlasmaOrdered By: Luc Vargas on 03-17-2023 CO2 [Moles/Vol] 22.6 mmol/L 21.0-31.0 [facility] Chloride [Moles/volume] in S gee or PlasmaOrdered By: Luc Vargas on 03-17-2023 Chloride [Moles/Vol] 104 mmol/L 98-107 [facility] Complete Blood Count Auto Di ffon 03-17-2023 Basophils (Bld) [#/Vol] 0.1 10*3/uL Normal 0.0-0.2 [facility] Comment on above: Result Comment: PERF ORMED BY: [facility] [address] [place] [address] PATHOLOGIST LOADING INSPECTOR KOREY FRANKS M.D. Performed By: #### G LULS #### Point of Care testing , Basophils/100 WBC (Bld) 0.3 % Normal . [facility] Comment on above: Performed By: #### G LULS #### Point of Care testing , Eosinophils (Bld) [#/Vol] 0.0 10*3/uL Normal 0.0-0.45 [facility] Comment on above: Performed By: #### G BENJAMIN #### Point of Care testing , Eosinophils/100 WBC (Bld) 0.0 % Normal . [facility] Comment on above: Performed By: #### G SARIKALS #### Point of Care testing , Erythrocyte distribution width (RBC) [Ratio] 16.8 % High 11.9-15.3 [facility] Comment on above: Performed By: #### G SARIKALS #### Point of Care testing , Hematocrit (Bld) [Volume fraction] 32.4 % Low 34.0-46.4 [facility] Comment on above: Performed By: #### G SARIKALS #### Point of Care testing , Hemoglobin (Bld) [Mass/Vol] 10.3 g/dL Low 11.8-15.4 [facility] Comment on above: Performed By: #### G SARIKALS #### Point of Care testing , Lymphocytes (Bld) [#/Vol] 1.1 10*3/uL Normal 1.00-4.8 [facility] Comment on above: Performed By: #### G BENJAMIN #### Point of Care testing , Lymphocytes/100 WBC (Bld) 7.0 % Normal . [facility] Comment on above: Performed By: #### G SARIKALS #### Point of Care testing , MCH (RBC) [Entitic mass] 26.5 pg Normal 24.7-34.3 [facility] Comment on above: Performed By: #### Cosme ALEXANDER #### Point of Care testing , MCV (RBC) [Entitic vol] 83.3 fL Normal 80-100 [facility] Comment on above: Performed By: #### G SARIKALS #### Point of Care testing , Mean Corpuscular HGB Conc 31.9 g/dL Low 32.0-35.0 [facility] Comment on above: Performed By: #### G SARIKALS #### Point of Care testing , Monocytes (Bld) [#/Vol] 0.6 10*3/uL Normal 0.0-0.8 [facility] Comment on above: Performed By: #### Cosme ALEXANDER #### Point of Care testing , Monocytes/100 WBC (Bld) 4.0 % Normal . [facility] Comment on above: Performed By: #### G SARIKALS #### Point of Care testing , Neutrophils (Bld) [#/Vol] 14.2 10*3/uL High 1.8-7.7 [facility] Comment on above: Performed By: #### G BENJAMIN #### Point of Care testing , Neutrophils/100 WBC (Bld) 88.7 % Normal . [facility] Comment on above: Performed By: #### G SARIKALS #### Point of Care testing , NRBC% 0.0 /100{WBC} Normal 0-0.5 [facility] Comment on above: Performed By: #### G SARIKALS #### Point of Care testing , Platelet mean volume (Bld) [Entitic vol] 8.8 fL Normal 6.3-10.7 [facility] Comment on above: Performed By: #### G BENJAMIN #### Point of Care testing , Platelets (Bld) [#/Vol] 338 10*3/uL Normal 150-450 [facility] Comment on above: Performed By: #### G BENJAMIN #### Point of Care testing , RBC (Bld) [#/Vol] 3.89 10*6/uL Normal 3.60-5.00 [facility] Comment on above: Performed By: #### G BENJAMIN #### Point of Care testing , WBC (Bld) [#/Vol] 16.0 10*3/uL High 3.8-11.6 [facility] Comment on above: Performed By: #### G BENJAMIN #### Point of Care testing , Creatinine [Mass/volume] in Serum or PlasmaOrdered By: Luc Vargas on 03-17-2023 Creatinine [Mass/Vol] 0.91 mg/dL 0.60-1.20 [facility] Eosinophils Auto (Bld) [#/Vo l]Ordered By: Luc Vargas on 03-17-2023 Eosinophils (Bld) [#/Vol] 0.0 10*3/uL 0.0-0.45 [facility] Eosinophils/100 WBC Auto (Bl d)Ordered By: Luc Vargas on 03-17-2023 Eosinophils/100 WBC (Bld) 0.0 % . [facility] Erythrocyte distribution wid th Auto (RBC) [Ratio]Ordered By: Luc Vargas on 03-17-2023 Erythrocyte distribution width (RBC) [Ratio] 16.8 % 11.9-15.3 [facility] Glucose Poct Glucometerson 1 05-18-2022 Commemt1 Glu2: Cleaned Meter Normal [facility] Comment on above: Result Comment: PERF ORMED BY: [facility] [address] [address] PATHOLOGIST LOADING INSPECTOR KOREY FRANKS M.D. Performed By: #### G LULS #### Point of Care testing , Glucose [Mass/Vol] 322 mg/dL Normal [facility] Comment on above: Result Comment: [place] Glucose Reference Range is dependent on time and content of last meal. Glucose of more than 200 mg/dL in a nonstressed, ambulatory subject supports the diagnosis of Diabetes Mellitus. Performed By: #### G LULS #### Point of Care testing , Glucose [Mass/volume] in Ser um or PlasmaOrdered By: Luc Vargas on 03-17-2023 Glucose [Mass/Vol] 315 mg/dL 70-100 [facility] Comment on above: Delta: 158 on -1035ADA recommended reference rangeRandom Glucose Reference Range is dependent on time and content of last meal. Glucose of more than 200 mg/dL in a nonstressed, ambulatory subject supports the diagnosis of Diabetes Mellitus. Hematocrit Auto (Bld) [Volum e fraction]Ordered By: Luc Vargas on 03-17-2023 Hematocrit (Bld) [Volume fraction] 32.4 % 34.0-46.4 [facility] Hemoglobin [Mass/volume] in BloodOrdered By: Luc Vargas on 03-17-2023 Hemoglobin (Bld) [Mass/Vol] 10.3 g/dL 11.8-15.4 [facility] Leukocytes [#/volume] correc huey for nucleated erythrocytes in Blood by Automated counOrdered By: Luc Vargas on 03-17-2023 WBC corrected for nucl RBC Auto (Bld) [#/Vol] 16.0 10*3/uL 3.8-11.6 [facility] Lymphocytes Auto (Bld) [#/Vo l]Ordered By: Luc Vargas on 03-17-2023 Lymphocytes (Bld) [#/Vol] 1.1 10*3/uL 1.00-4.8 [facility] Lymphocytes/100 WBC Auto (Bl d)Ordered By: Luc Vargas on 03-17-2023 Lymphocytes/100 WBC (Bld) 7.0 % . [facility] MCH Auto (RBC) [Entitic mass ]Ordered By: Luc Vargas on 03-17-2023 MCH (RBC) [Entitic mass] 26.5 pg 24.7-34.3 [facility] MCHC Auto (RBC) [Mass/Vol]Or dered By: Luc Vargas on 03-17-2023 MCHC (RBC) [Mass/Vol] 31.9 g/dL 32.0-35.0 [facility] MCV Auto (RBC) [Entitic vol] Ordered By: Luc Vargas on 03-17-2023 MCV (RBC) [Entitic vol] 83.3 fL 80-100 [facility] Monocytes Auto (Bld) [#/Vol] Ordered By: Luc Vargas on 03-17-2023 Monocytes (Bld) [#/Vol] 0.6 10*3/uL 0.0-0.8 [facility] Monocytes/100 WBC Auto (Bld) Ordered By: Luc Vargas on 03-17-2023 Monocytes/100 WBC (Bld) 4.0 % . [facility] Neutrophils Auto (Bld) [#/Vo l]Ordered By: Luc Vargas on 03-17-2023 Neutrophils (Bld) [#/Vol] 14.2 10*3/uL 1.8-7.7 [facility] Neutrophils/100 WBC Auto (Bl d)Ordered By: Luc Vargas on 03-17-2023 Neutrophils/100 WBC (Bld) 88.7 % . [facility] No Panel InformationOrdered By: Luc Vargas on 03-17-2023 Bedside Glucose Comment Glu2: cleaned meter [facility] Estimated GFR (CKD-EPI) > 60.0 mL/Min [facility] Creatinine Clearance (Chem 69.67 [facility] Nucleated erythrocytes [Pres ence] in Blood by Automated countOrdered By: Luc Vargas on 03-17-2023 Nucleated RBC Auto Ql (Bld) 0.0 /100{WBC} 0-0.5 [facility] Platelet mean volume Auto (B ld) [Entitic vol]Ordered By: Luc Vargas on 03-17-2023 Platelet mean volume (Bld) [Entitic vol] 8.8 fL 6.3-10.7 [facility] Platelets Auto (Bld) [#/Vol] Ordered By: Luc Vargas on 03-17-2023 Platelets (Bld) [#/Vol] 338 10*3/uL 150-450 [facility] Potassium [Moles/volume] in Serum or PlasmaOrdered By: Luc Vargas on 03-17-2023 Potassium [Moles/Vol] 4.7 mmol/L 3.5-5.1 [facility] RBC Auto (Bld) [#/Vol]Ordere d By: Luc Vargas on 03-17-2023 RBC (Bld) [#/Vol] 3.89 10*6/uL 3.60-5.00 [facility] Serum or plasma anion gap de terminationOrdered By: Luc Vargas on 03-17-2023 Anion gap [Moles/Vol] 11.1 mmol/L 6.0-15.0 [facility] Sodium [Moles/volume] in Ser um or PlasmaOrdered By: Luc Vargas on 03-17-2023 Sodium [Moles/Vol] 133 mmol/L 136-145 [facility] Comment on above: Delta: 141 on -1035 Urea nitrogen [Mass/volume] in Serum or PlasmaOrdered By: Luc Vargas on 03-17-2023 Urea nitrogen [Mass/Vol] 34 mg/dL 10-25 [facility] WBC Auto (Bld) [#/Vol]Ordere d By: Luc Vargas on 03-17-2023 WBC (Bld) [#/Vol] 16.0 10*3/uL 3.8-11.6 [facility] ABO/Rh Retypeon 03-16-2023 ABO/RH Recheck Result Positive Normal [facility] Comment on above: Result Comment: PERF ORMED BY: [facility] [address] [place] [address] PATHOLOGIST LOADING INSPECTOR KOREY FRANKS M.D. Basic Metabolic Panelon 03-03 Anion gap [Moles/Vol] 11.5 mmol/L Normal 6.0-15.0 [facility] Comment on above: Performed By: #### G LULS #### Point of Care testing , Calcium [Mass/Vol] 9.2 mg/dL Normal 8.6-10.3 [facility] Comment on above: Performed By: #### G LULS #### Point of Care testing , Chloride [Moles/Vol] 108 mmol/L High 98-107 [facility] Comment on above: Performed By: #### G LULS #### Point of Care testing , CO2 [Moles/Vol] 25.8 mmol/L Normal 21.0-31.0 [facility] Comment on above: Performed By: #### G LULS #### Point of Care testing , Creatinine [Mass/Vol] 0.86 mg/dL Normal 0.60-1.20 [facility] Comment on above: Performed By: #### G LULS #### Point of Care testing , Creatinine Clr Calc Pharmacy 73.00 Normal [facility] Comment on above: Result Comment: PERF ORMED BY: [facility] [address] [place] [address] PATHOLOGIST LOADING INSPECTOR KOREY FRANKS M.D. Performed By: #### G LULS #### Point of Care testing , GFR/1.73 sq M.predicted MDRD (S/P/Bld) [Vol rate/Area] mL/min/{1.73_m2} Normal [facility] Comment on above: Performed By: #### G LULS #### Point of Care testing , Glucose [Mass/Vol] 158 mg/dL High 70-100 [facility] Comment on above: Result Comment: [facility] Glucose Reference Range is dependent on time and content of last meal. Glucose of more than 200 mg/dL in a nonstressed, ambulatory subject supports the diagnosis of Diabetes Mellitus. ADA recommended reference range Performed By: #### G LULS #### Point of Care testing , Potassium [Moles/Vol] 4.3 mmol/L Normal 3.5-5.1 [facility] Comment on above: Performed By: #### G LULS #### Point of Care testing , Sodium [Moles/Vol] 141 mmol/L Normal 136-145 [facility] Comment on above: Performed By: #### G LULS #### Point of Care testing , Urea nitrogen [Mass/Vol] 32 mg/dL High 7-25 [facility] Comment on above: Performed By: #### G LULS #### Point of Care testing , Complete Blood Count Auto Di ffon 03-16-2023 Basophils (Bld) [#/Vol] 0.1 10*3/uL Normal 0.0-0.2 [facility] Comment on above: Result Comment: PERF ORMED BY: [place] [address] PATHOLOGIST LOADING INSPECTOR KOREY FRANKS M.D. Performed By: #### B MP, CBC #### [facility] [address] [place] [address] [place] Basophils/100 WBC (Bld) 1.1 % Normal . [facility] Comment on above: Performed By: #### B MP, CBC #### [facility] [address] Eosinophils (Bld) [#/Vol] 0.3 10*3/uL Normal 0.0-0.45 [facility] Comment on above: Performed By: #### B MP, CBC #### [facility] [address] [place] [address] [place] Eosinophils/100 WBC (Bld) 2.3 % Normal . [facility] Comment on above: Performed By: #### B MP, CBC #### [facility] [address] Erythrocyte distribution width (RBC) [Ratio] 17.2 % High 11.9-15.3 [facility] Comment on above: Performed By: #### B MP, CBC #### [facility] [address] Hematocrit (Bld) [Volume fraction] 36.5 % Normal 34.0-46.4 [facility] Comment on above: Performed By: #### B MP, CBC #### [address] Hemoglobin (Bld) [Mass/Vol] 12.0 g/dL Normal 11.8-15.4 [facility] Comment on above: Performed By: #### B MP, CBC #### [place] [address] [place] Lymphocytes (Bld) [#/Vol] 1.9 10*3/uL Normal 1.00-4.8 [facility] Comment on above: Performed By: #### B MP, CBC #### [place] [address] [place] Lymphocytes/100 WBC (Bld) 17.5 % Normal . [facility] Comment on above: Performed By: #### B MP, CBC #### [facility] [address] [place] [address] [place] MCH (RBC) [Entitic mass] 27.3 pg Normal 24.7-34.3 [facility] Comment on above: Performed By: #### B MP, CBC #### [address] MCV (RBC) [Entitic vol] 82.8 fL Normal 80-100 [facility] Comment on above: Performed By: #### B MP, CBC #### [facility] [address] Mean Corpuscular HGB Conc 33.0 g/dL Normal 32.0-35.0 [facility] Comment on above: Performed By: #### B MP, CBC #### [facility] [address] Monocytes (Bld) [#/Vol] 0.6 10*3/uL Normal 0.0-0.8 [facility] Comment on above: Performed By: #### B MP, CBC #### [facility] [address] [place] [address] [place] Monocytes/100 WBC (Bld) 5.8 % Normal . [facility] Comment on above: Performed By: #### B MP, CBC #### [facility] [address] Neutrophils (Bld) [#/Vol] 8.1 10*3/uL High 1.8-7.7 [facility] Comment on above: Performed By: #### B MP, CBC #### [facility] [address] [place] [address] [place] Neutrophils/100 WBC (Bld) 73.3 % Normal . [facility] Comment on above: Performed By: #### B MP, CBC #### [facility] [address] [place] [address] [place] NRBC% 0.0 /100{WBC} Normal 0-0.5 [facility] Comment on above: Performed By: #### B MP, CBC #### [facility] [address] [place] [id number] [place] Platelet mean volume (Bld) [Entitic vol] 8.6 fL Normal 6.3-10.7 [facility] Comment on above: Performed By: #### B MP, CBC #### [facility] [address] [place] [address] [place] Platelets (Bld) [#/Vol] 354 10*3/uL Normal 150-450 [facility] Comment on above: Performed By: #### B MP, CBC #### [facility] [address] RBC (Bld) [#/Vol] 4.40 10*6/uL Normal 3.60-5.00 [facility] Comment on above: Performed By: #### B MP, CBC #### [facility] [address] WBC (Bld) [#/Vol] 11.0 10*3/uL Normal 3.8-11.6 [facility] Comment on above: Performed By: #### B MP, CBC #### [facility] [address] ECG 12 lead ECGon 03-16-2023 ECG 12 lead ECG [facility] Main [place] [address] [place] [address] Electrocardiograph Report Signed Patient: Karuna Nelson MR#: [id number] : 1960 Acct:[id number] Age/Sex: 62 / F ADM Date: 03/16/23 Loc: Room: 2Y5468-8 Type: ADM IN Attending Dr: Luc Vargas [...] MUS Signed By Celsa Cho MD 2141 [facility] Glucose Poct Glucometerson 1 05-17-2022 Glucose [Mass/Vol] 347 mg/dL [facility] Comment on above: Result Comment: [place] Glucose Reference Range is dependent on time and content of last meal. Glucose of more than 200 mg/dL in a nonstressed, ambulatory subject supports the diagnosis of Diabetes Mellitus. PERFORMED BY: [facility] [address] [place] [address] PATHOLOGIST LOADING INSPECTOR KOREY FRANKS M.D. Performed By: #### G BENJAMIN #### Point of Care testing , Glucose [Mass/Vol] 201 mg/dL Normal [facility] Comment on above: Result Comment: [facility] Glucose Reference Range is dependent on time and content of last meal. Glucose of more than 200 mg/dL in a nonstressed, ambulatory subject supports the diagnosis of Diabetes Mellitus. PERFORMED BY: [facility] [address] [place] [address] PATHOLOGIST LOADING INSPECTOR KOREY FRANKS M.D. Performed By: #### G BENJAMIN #### Point of Care testing , Glucose [Mass/Vol] 167 mg/dL Normal [facility] Comment on above: Result Comment: [facility] Glucose Reference Range is dependent on time and content of last meal. Glucose of more than 200 mg/dL in a nonstressed, ambulatory subject supports the diagnosis of Diabetes Mellitus. PERFORMED BY: [facility] [address] [address] PATHOLOGIST LOADING INSPECTOR KOREY FRANKS M.D. Performed By: #### G BENJAMIN #### Point of Care testing , Serafin 03-16-2023 L ---- Specimen: [id number] Received: 03/17/23 Status: HAWK Shahidreynold Num: [id number] Spec Type: Surgical Subm Dr: Amy Nicole II, MD Tissues: A Plaque - Atheromatous (LT GROIN) Procedures: HE, Gross/Micro L3, Decalcification Age/ Patient Sex Location Account Attending Physician OmarKaruna M 62/F 4N [id number] Luc Vargas MD SPEC NUM: [id number] RECD: 03/17/23 STATUS: HAWK LONG NUM: [id number] STEPH: 03/16/23- [facility] DR: Amy Nicole II, MD ENTERED: 03/17/[address] [facility] [address]: CHARY TYPE: Surgical DEPT: S ENTERED BY: [id number] RECV BY: [id number] ORDERED: HE, Gross/Micro L3, Decalcification ORDERED: HE, Gross/Micro L3, Decalcification Pathological Diagnosis Plaque, Removal: Atherosclerotic Plaque. Clinical Information PVD with gangrene Gross Description Received in formalin labeled with the patient's name, date of and plaque is a 3.0 x 2.5 x 2.0 cm aggregate of yellow-gilbert membranous tissues with yellow-gilbert, calcified areas on cut section. Tobacco Flavorer are submitted following decalcification in one cassette labeled A1. Microscopic Description One H E slide reviewed. The microscopic examination confirms the diagnosis. CPT Codes 89036, 14133 Specimen: [id number] Received: 03/17/23 Status: HAWK Long Num: [id number] Spec Type: Surgical Subm Dr: Amy Nicole II, MD Tissues: A Plaque - Atheromatous (LT GROIN) Procedures: Slick LYNCH/Argenis L3, Decalcification Patient: Karuna Nelson [id number] (Continued) Signed (signature on file) Lincoln Deleon MD 03/20/232018 [facility] Type and Screenon 03-16-2023 ABO and Rh group Nom (Bld) Blood group B Rh(D) positive [facility] Comment on above: Order Comment: NO TI ME OF DRAW ON TUBE. 2 SETS OF INITIALS 'CL' ON TUBE. SHIRLEY/AVRIL WHO LANCE PATIENT SAID SHE LANCE SAMPLE AT 1035. JMP Result Comment: PERF ORMED BY: [place] [address] PATHOLOGIST LOADING INSPECTOR KOREY FRANKS M.D. Blood Urea Nitrogenon 2022 Urea nitrogen [Mass/Vol] 23 mg/dL Normal - [facility] Comment on above: Order Comment: STAT FOR SPECIALS Performed By: #### B UN, CREAT #### [facility] [address] [place], [place] [address] [place] Creatinineon 03-01-2023 Creatinine [Mass/Vol] 0.85 mg/dL Normal 0.60-1.20 [facility] Comment on above: Order Comment: STAT FOR SPECIALS Performed By: #### B UN, CREAT #### [facility] [address] [id number] [place] Creatinine Clr Calc Pharmacy 73.86 [facility] Comment on above: Order Comment: STAT FOR SPECIALS Result Comment: PERF ORMED BY: [place] [address] PATHOLOGIST LOADING INSPECTOR KOREY FRANKS M.D. Performed By: #### B UN, CREAT #### [facility] [address] [id number] [place] GFR/1.73 sq M.predicted MDRD (S/P/Bld) [Vol rate/Area] mL/min/{1.73_m2} [facility] Comment on above: Order Comment: STAT FOR SPECIALS Performed By: #### B UN, CREAT #### [facility] [address] [place] [address] [place] Creatinine [Mass/volume] in Serum or PlasmaOrdered By: Luc Vargas on 03-01-2023 Creatinine [Mass/Vol] 0.85 mg/dL 0.60-1.20 [facility] No Panel InformationOrdered By: Luc Vargas on 03-01-2023 Estimated GFR (CKD-EPI) > 60.0 mL/Min [facility] Creatinine Clearance (Chem 73.86 [facility] Urea nitrogen [Mass/volume] in Serum or PlasmaOrdered By: Luc Vargas on 03-01-2023 Urea nitrogen [Mass/Vol] 23 mg/dL 10-25 [facility] Heart and Vascular Office/Cl inic Noteon 02-25-2023 Heart and Vascular Office/Clinic Note Chief Complaint here to establish care History of Present Illness Karuna Nelson is a 62-year- old female presents today with a cardiac history of congestive heart failure. She is accompanied by a female adult. Karuna Nelson explains that she has undergone cardiac catheterization twice in [place] and was diagnosed with congestive heart failure. [...] was referred to a nurse practitioner at [facility], who only attempted to adjust her medication, [...] with voice recognition artificial intelligence software, specifically [employer], [facility] and or [employer]. Substitutions may have occurred with voice recognition and artificial intelligence software. Documentation services were performed after the patient or guardian consented to allow [employer] to record this visit. PATY account management specialist and provider reviewed before signing. PATY: Lana Degroot. Pasted by: Bacilio Patel Follow-up No qualifying [...] MetFORMIN (Eqv-Glucop (more content not included)... [facility] Comment on above: Result Comment: Elec tronically Signed By: Rik MISTRY, Felix Vann\.br\Date and Time Signed: 02/25/23 09:59 EST\.br\Electronically Co-Signed By: Bacilio Patel\.br\Date and Time Co-Signed: 12/08/22 16:49 EDT US [...] Hidalgo MD Transcribed by: WES Technologist: D[place] [facility] Consent for Treatmenton 01-03 Consent for Treatment [id number]#1.00TIF F [facility] Physician Orderon 01-30-2023 Physician Order [id number]#1.00TIF F [facility] Consultation Noteon 01-26-20 Consultation Note [id number]#1.00TIF F [facility] Physician Orderon 01-24-2023 Physician Order [id number]#1.00TIF F [facility] Consent for Flu Vaccineon Consent for Flu Vaccine [id number]#1.00TIF F [facility] ED Note-Physicianon 01-19-20 ED Note-Physician [id number]#1.00TIF F [facility] Physician Referralon 023 Physician Referral [id number]#1.00TI FF [facility] Ambulatory Visit Summaryon 1 Ambulatory Visit [...] Riddle MD This Is Your Medications List [facility] Prescription (sure comfort pen needle 30 gauge [...] Rik MISTRY, Felix Vann Where: [facility] [place] Monday 3:00 PM EST With: Esau Riddle MD Where: [facility] Normal [facility] Office/Clini c Noteon 01-17-2023 Family Medicine Office/Clinic Note HPI Staff Karuna is a 62 year old female presenting for ER follow up ER followup: Hospital: [place] Visit date: week ago Symptoms the patient [...] subcutaneous tissue, unspecified) - Will refer to [facility] office. Ordered: influenza virus vaccine, inactivated, [...] Encounter for immunization) Ordered: FIRST VACCINE w/o Park Superintendent Admin Charge [address] Orders: metformin, See Instructions, TAKE 2 TABLETS BY MOUTH TWICE A DAY, # 360 tab(s), Refills(s) 0, Pharmacy: [facility]/pharmacy #[id number], 157, cm, 01/17/23 14:04:00 EDT, Height/Length Dosing, [...] 5/16, See Instruc (more content not included)... [facility] Comment on above: Result Comment: Elec tronically Signed By: Lui MISTRY, Esau Van\.br\Date and Time Signed: 01/17/23 14:40 EDT ED Note-Physicianon 01-17-20 ED Note-Physician [id number]#1.00TIF F [facility] ED Note-Physicianon 01-15-20 ED Note-Physician Basic Information Time Seen: Herman FORD, Cali Morrison. 01/13/2023 15:34 Chief Complaint Pt presents to [...] and Complexity of Problems Differential Diagnosis: [] [facility] Data External documents reviewed: [] My EKG [...] Riddle Within 1 to 2 days [address] [phone] Business (2) Additional Instructions: Attestation Patient seen and evaluated by the physician office assistant receptionist. Attending physician was present in the emergency department and supervised care. This visit was performed by both the physician and an APC. I performed all aspects of the MDM as documented. This report was transcribed using voice recognition software. Every effort was made to ensure accuracy, however, inadvertently computerized transcript (more content not included)... [facility] Comment on above: Result Comment: Elec tronically Signed By: Cali Sutton PA-C\.br\Date and Time Signed: 01/13/23 16:35 EDT\.br\Electronically Co-Signed By: Alejandro Gongora DO\.twila\Date and Time Co-Signed: 01/14/23 07:44 EDT Ambulatory [...] PM EDT With: Esau Riddle MD Where: [facility] Consent for Treatmenton 10 Consent for Treatment [id number]#1.00TIF F [facility] Discharge Instructionson Discharge Instructions [id number]#1.00TI FF [facility] ED Clinical Summaryon 2022 ED Clinical Summary (Inserted Image. Esperanza ble to display) [place] [id number] ED Clinical Summary Person Information Name: KARUNA NELSON/Alex Age: 62 Years : 1960 Sex: Female Language: South Sudanese PCP: Esau Riddle MD Marital Status: Visit [...] 01/13/2023 16:19:08 01/13/2023 16:19:08 01/13/2023 16:19:08 ADDRESS: [address] [place] [phone] PHYS DOC NOTES: MEDICAL INFORMATION: Prescriptions Given: New Medications [facility]/pharmacy #[id number], [address] [place] [phone], [phone] famotidine (Pepcid 40 mg Tab) 1 Tablets By Mouth once a day (at bedtime) for 7 Days. Refills: 0. fexofenadine (fexofenadine 180 mg Tab) 1 Tablets By Mouth every day for 10 Days. Refills: 0. Medications to Continue Taking That Have Changed [facility]/pharmacy #[id number], [address] [place] [address] [phone], [phone] START: predniSONE (predniSONE 20 mg Tab) 3 [...] Follow up: With: Address: When: Esau Riddle [address] [place], [place] [id number] Business (2) Within 1 to 2 days DIAGNOSIS: Allergic reaction; Urticaria [facility] ED Patient Education Noteon 01-13-2023 ED Patient Education Note [facility] ED Patient Summaryon ED Patient Summary (Inserted Image. Esperanza ble to display) [address] [address] Patient Discharge Instructions Person Information Name: KARUNA NELSON Age: 62 Years Arrival Date: 01/13/2023 13:16:07 Discharge Diagnosis: Allergic reaction; Urticaria Primary Care Physician: Esau Riddle MD Provider Information Primary Provider: Alejandro Gongora DO Advanced Microsoft Net Developer:None The exam and treatment you received in the Emergency Department were for an urgent problem and are not intended as complete care. It is important that you follow up with a doctor, nurse practitioner, or physician?s office assistant receptionist for ongoing care. If your symptoms become worse or you do not improve as expected and you are unable to reach your usual health care provider, you should return to the Emergency Department. We are available 24 hours a day. KARUNA NELSON has been given the following list of patient education materials, prescriptions and follow-up instructions: Follow-up Instructions: With: Address: When: Esau Riddle [address] [place] [address] Business (2) Within 1 to 2 days In the event that this physician does not participate in your insurance network, please consult with your insurance company to find a nearby participating provider. Patient Education Materials: A MESSAGE TO ALL PATIENTS REGARDING OPIOIDS PRESCRIPTION OPIOIDS: WHAT YOU NEED TO KNOW Prescription opioids can be used to help relieve wyaaoysb-li-xtotsp pain and are often prescribed following a [...] be struggling with addiction, tell your health rn progressive care unit and ask for guidance or call [facility]?S National Helpline at 7-679-475-YHWS. v Source: [place] Department of Health and Human Services/Abhijeet (more content not included)... [facility] Family Medicine Office/Clini c Noteon 01-13-2023 Family Medicine Office/Clinic Note HPI Staff Karuna is a 62 year old female presenting for ER follow up Last OV: 01/02/23 pt was sent to ER for infection of great toe for IV therapy ER followup: Hospital: [facility] Visit date: 01/02 and 01/10 (records [...] virus vaccine, inactivated 01/17/2016 Recorded Normal [facility] Comment on above: Result Comment: Elec tronically Signed By: Lui MISTRY, Esau Duran.br\Date and Time Signed: 01/13/23 12:02 EDT Patient [...] numbers. This can be done either in [place] (U.S.) or metric measurements. Note that charts and online BMI calculators are available to help you find your BMI quickly and easily without having to do these calculations yourself. To calculate your BMI in [place] ([place].S.) measurements: 1. Measure your weight in [...] for Disease Control and Prevention: www.cdc.gov ? [place] Heart Association: www.heart.org ? National Heart, Lung, and Blood [place]: www.nhlbi.nih.gov Summary ? Body mass index (BMI) is a number that is calculated from a person's weight and height. ? BMI may help estimate how much of a person's weight is composed of fat. BMI can help identify those who may be at higher risk for certain medical problems. ? BMI can be measured using [place]ese measurements or metric measurements. ? BMI charts are used to identify whether you are underweight, normal weight, overweight, or obese. This information is not intended to replace advice given to you by your health care provider. Make sure you discuss any questions you have with your health care provider. Document Revised: 12/11/2019 Document Reviewed: 10/18/2019 Elseb[employer] Patient Education ? 2022 [employer] [facility] Pre-Arrival Noteon 3 Pre-Arrival Note Pre-Arrival Summary Name: Karuna Nelson, Current Date: 01/13/2023 13:19:57 EDT Gender: Female Date of : Age: Pre-Arrival Type: EMS ETA: 01/13/2023 12:30:00 EDT Primary Care Physician: Presenting Problem: Rash Pre-Arrival User: Alejandro Gongora DO Referring Source: Location: [place] Completion Date/Time: 01/13/2023 12:00:00 [facility] Emergency Department Pre-Hospital Report Form Vital Signs: toe infection, got Bactrim (allergic), then rash, then prednisone. Pre-Hospital Report: Treatment in Route: Response to Treatment: Misc. Issues: [facility] Family Medicine Office/Clini c Noteon 01-03-2023 Family [...] with voice recognition artificial intelligence software, specifically [employer], [facility] and or [employer]. Substitutions may have occurred due to the inherent limitations of voice recognition and artificial intelligence software. Documentation services were performed after patient or guardian consented to allow [employer] to record this visit. PATY account management specialist and provider reviewed before signing. PATY: Dhevie Rigor Follow-up No qualifying data available Problem [...] refills Allergies (more content not included)... [facility] Comment on above: Result Comment: Elec tronically Signed By: Lui MISTRY, Esau Van\.br\Date and Time Signed: 01/03/23 11:22 EDT\.br\Electronically Co-Signed By: Mima Davis\.br\Date and Time Co-Signed: 01/02/23 15:14 EDT Ambulatory Visit Summaryon 1 Ambulatory Visit Summary KARUNA NELSON :1960 Visit Date:01/02/2023 Ambulatory Visit Instructions Your Diagnosis Controlled type 2 diabetes mellitus Infection of great toe Your Care Team Attending Physician - Esau Riddle MD Primary Care Physician - Esau Riddle MD This Is Your Medications List [facility] Prescription (sure comfort pen needle 30 gauge [...] PM EDT With: Esau Riddle MD Where: [facility] Insurance Correspondenceon 0 12-14-2022 Insurance Correspondence [id number]#1.00CD :127 [facility] Insurance Correspondence [id number]#1.00CD :127 [facility] Outside Radiologyon 12-10-19 Outside Radiology [id number]#1.00CD :127 [facility] Physician Orderon 12-09-2022 Physician Order [id number]#1.00CD :127 [facility] Physician Order [id number]#1.00CD :127 [facility] Ambulatory Visit Summaryon 0 12-08-2022 Ambulatory Visit Summary KARUNA NELSON :1960 Visit Date:12/08/2022 Ambulatory Visit Instructions Your Diagnosis CHF (congestive heart failure) Your Care Team Attending Physician - Rik MISTRY, Felix Begum. Primary Care Physician - Esau Riddle MD Referring Physician - Esau Riddle MD This Is Your Medications List [facility] Prescription (sure comfort pen needle 30 gauge [...] Follow-Up Appointments Monday 1:20 PM EDT With: Esau Riddle MD Where: [facility] Consent for Treatmenton Consent for Treatment [id number]#1.00CD: 127 [facility] Family Medicine Office/Clini c Noteon 11-16-2022 Family Medicine Office/Clinic [...] refer to Dr. Jolly for Cardiology Ordered: [facility] Internal Ambulatory Referral 2. Hypercholesterolemia (E78.00: Pure hypercholesterolemia, unspecified) - Continue meds as before. Ordered: Body Mass Index (BMI) documented 3008F Current tobacco smoker 1034F Depression Screening Negative 3352F [facility] Internal Ambulatory Referral Most recent diastolic blood pressure <80 mm Hg 3078F Systolic BP 130-139 mm Hg (Most Recent) 3075F 3. Diabetes (E11.9: Type 2 diabetes mellitus without complications) - Just at goal. - Will add Trulicity Ordered: Body Mass Index (BMI) documented 3008F Current tobacco smoker 1034F Depression Screening Negative 3352F [facility] Internal Ambulatory Referral Most recent diastolic blood pressure <80 mm Hg 3078F Systolic BP 130-139 mm Hg (Most Recent) 3075F 4. HTN (hypertension) (I10: Essential (primary) hypertension) - At goal - Continue as before Ordered: Body Mass Index (BMI) documented 3008F Current tobacco smoker 1034F Depression Screening Negative 3352F [facility] Internal Ambulatory Referral Most recent diastolic blood pressure <80 mm Hg 3078F Systolic BP 130-139 mm Hg (Most Recent) 3075F 5. Cardiomyopathy in diseases classified elsewhere (I43: Cardiomyopathy in diseases classified elsewhere) - As per number 1. Ordered: Body Mass Index (BMI) documented 3008F Current tobacco smoker 1034F Depression Screening Negative 3352F [facility] Internal Ambulatory Referral Most recent diastolic blood [...] qWeek, # 4 EA, Refills(s) 2, Pharmacy: [id number], 157.5, cm, 11/16/22 13:16:00 EDT, Height/Length [...] Daily, 3 ref (more content not included)... [facility] Comment on above: Result Comment: Elec tronically Signed By: Lui MISTRY, Esau Van\.br\Date and Time Signed: 11/16/22 13:53 EDT Physician Referralon 023 Physician Referral [id number]#1.00CD :127 [facility] Outside Diabetes Eye Examon 09-01-2022 Outside Diabetes Eye Exam [id number]#1.00CD: 127 [facility] Ambulatory Visit Summaryon 0 08-17-2022 Ambulatory Visit Summary KARUNA NELSON :1960 Visit Date:08/17/2022 Ambulatory Visit Instructions Your Diagnosis BMI 39.0-39.9,adult Smoker Your Care Team Attending Physician - Esau Riddle MD Primary Care Physician - ELIUD MISTRY, YUNI Tony This Is Your Medications List [facility] Prescription (sure comfort pen needle 30 gauge [...] comfort pen needle 30 gauge x 16) See instructions use bid for E10.8 [...] Diabetic retinopathy HTN (hypertension) Hypercholesterolemia Smoker [facility] Family Medicine Office/Clini c Noteon 08-17-2022 Family Medicine [...] diabetic retinopathy. The patient reports that the business integration analyst that she was supposed to see left [...] after patient or guardian consented to allow [employer] to record this visit. PATY account management specialist and provider reviewed before signing. PATY: [facility] Follow-up No qualifying data available Problem List/Past [...] Oral, Daily (more content not included)... [facility] Comment on above: Result Comment: Elec [...] a glucometer. When she came home from [place], her sugar was 400. She does not take the fast-acting insulin. When she was back on full strength metformin, her A1c was 7 or below. Krauna has a history of a stroke. She [...] after patient or guardian consented to allow [email or web address] Steph[employer] to record this visit. PATY account management specialist and provider reviewed before signing. PATY: [...] gauge x (more content not included)... [facility] Comment on above: Result Comment: Elec tronically Signed By: Esau Riddle MD\.br\Date and Time Signed: 07/21/22 07:36 EDT\.br\Electronically Co-Signed By: Atilio Mancera\.br\Date and Time Co-Signed: 07/20/22 16:01 EDT Ambulatory Visit Summaryon 0 07-20-2022 Ambulatory Visit Summary KARUNA NELSON :1960 Visit Date:07/20/2022 Ambulatory Visit Instructions Your Diagnosis Diabetes Cerebrovascular accident (CVA), unspecified mechanism Cardiomyopathy due to hypertension, without heart failure Cardiomyopathy in diseases classified elsewhere Anemia, unspecified type Chronic obstructive pulmonary disease, unspecified COPD type BMI 39.0-39.9,adult Class 1 obesity due to excess calories in adult Your Care Team Attending Physician - Esau Riddle MD. Primary Care Physician - YUNI MAST MD [...] With: Ernestina Jaimes DO Where: [facility] [place] Monday 1:20 PM EDT With: Esau Riddle MD Where: [facility] Retail - Clinical Noteon Retail - Clinical Note [id number]#1.00CD: 127 [facility] Lab Reportson 07-04-2022 Lab Reports [id number]#1.00CD:1 27 [facility] US carotid doppler BIon - US carotid doppler BI [facility] [place] [address] Ultrasound Report Signed Patient: Karuna Nelson MR#: [id number] : 1960 Acct:[id number] Age/Sex: 61 / F ADM Date: 06/27/22 Loc: [facility] Room: Type: [facility] Attending Dr: Luc Vargas MD Ordering [...] Luc Vargas M.D.06/27/2022 10:52 AM Dictation Location: [place] [address] Tech: Malu Colin Transcribed By: KRYSTAL 06/27/22 105 Dictated By: Luc Vargas MD 06/27/22 105 Signed By: 06/27/22 1052 [facility] CBC AUTO DIFFon 06-25-2022 BASO # 0.1 103/ul Normal 0.0-0.1 [facility] Comment on above: Performed By: #### C BC #### [facility] [address] [address] [address] David Swann Basophils/100 WBC (Bld) 1.1 % Normal 0.2-2.0 [facility] Comment on above: Performed By: #### C BC #### [facility] [address] [address] [address] David Swann EO # 0.3 103/ul Normal 0.0-0.7 [facility] Comment on above: Performed By: #### C BC #### [facility] [address] [place] [address] Dr. David Swann Eosinophils/100 WBC (Bld) 2.8 % Normal 0.9-7.0 [facility] Comment on above: Performed By: #### C BC #### [facility] [address] [address] [address] David Swann Erythrocyte distribution width (RBC) [Ratio] 15.9 % Critically high 11.0-15.0 [facility] Comment on above: Performed By: #### C BC #### [facility] [address] [place] [address] Dr. David Swann Hematocrit (Bld) [Volume fraction] 34.4 % Critically low 36.0-48.0 [facility] Comment on above: Performed By: #### C BC #### [facility] [address] [address] [address] David Swann Hemoglobin (Bld) [Mass/Vol] 10.5 g/dL Critically low 12.0-16.0 [facility] Comment on above: Performed By: #### C BC #### [facility] [address] [place] [address] Dr. David Swann IG # 0.05 10e3/ul Critically high 0.00-0.03 [facility] Comment on above: Performed By: #### C BC #### [facility] [address] [place] [address] Dr. David Swann IG % 0.5 % Normal 0.0-0.5 [facility] Comment on above: Performed By: #### C BC #### [facility] [address] [address] [address] David Swann LYMPH # 2.8 103/ul Normal 1.2-3.8 [facility] Comment on above: Performed By: #### C BC #### [facility] [address] [place] [address] Dr. David Swann Lymphocytes/100 WBC (Bld) 26.7 % Normal 20.5-60.0 [facility] Comment on above: Performed By: #### C BC #### [facility] [address] [place] [address] Dr. David Swann MANUAL DIFF REQ NO Normal [facility] Comment on above: Performed By: #### C BC #### [facility] [address] [place] [address] Dr. David Swann MCH (RBC) [Entitic mass] 23.9 pg Critically low 26.7-34.0 [facility] Comment on above: Performed By: #### C BC #### [facility] [address] [place] [address] Dr. David Swann MCHC (RBC) [Mass/Vol] 30.5 g/dL Normal 29.9-35.2 [facility] Comment on above: Performed By: #### C BC #### [facility] [address] [place] [address] Dr. David Swann MCV (RBC) [Entitic vol] 78.2 fL Critically low 81.0-99.0 [facility] Comment on above: Performed By: #### C BC #### [facility] [address] [place] [address] Dr. David Swann MONO # 0.7 103/ul Normal 0.3-0.8 [facility] Comment on above: Performed By: #### C BC #### [facility] [address] [address] [address] David Swann Monocytes/100 WBC (Bld) 6.4 % Normal 1.7-12.0 [facility] Comment on above: Performed By: #### C BC #### [facility] [address] [address] [address] David Swann NEUT # 6.5 103/ul Normal 1.4-6.5 [facility] Comment on above: Performed By: #### C BC #### [facility] [address] [address] [address] David Swann Neutrophils/100 WBC (Bld) 62.5 % Normal 43.0-75.0 [facility] Comment on above: Performed By: #### C BC #### [facility] [address] [place] [address] Dr. David Swann Platelet mean volume (Bld) [Entitic vol] 10.1 fL Normal 9.5-13.5 [facility] Comment on above: Performed By: #### C BC #### [facility] [address] [place] [address] Dr. David Swann PLT 441 103/ul Normal 150-450 [facility] Comment on above: Performed By: #### C BC #### [facility] [address] [place] [address] Dr. David Swann RBC 4.40 106/ul Normal 4.20-5.40 [facility] Comment on above: Performed By: #### C BC #### [facility] [address] [place] [address] Dr. David Swann WBC 10.4 103/ul Normal 4.0-11.0 [facility] Comment on above: Performed By: #### C BC #### [facility] [address] [place] [address] Dr. David Swann GLYCOHEMOGLOBIN A1Con 2022 ADA RECOMMENDATION SEE BELOW Normal [facility] Comment on above: Result Comment: ADA RECOMMENDED LIMIT 4.0 - 6.0 ADA THERAPEUTIC TARGET < 7.0 ACTION SUGGESTED > 7.0 Performed By: #### A 1C #### [facility] [address] [address] [address] David Swann Glucose [Mass/Vol] 151 mg/dL Normal [facility] Comment on above: Performed By: #### A 1C #### [facility] [address] [address] [address] David Swann HbA1c (Bld) [Mass fraction] 6.9 % Critically high 4.5-6.2 [facility] Comment on above: Performed By: #### A 1C #### [facility] [address] [address] [address] David Swann LIPID PROFILEon 06-25-2022 CHOL-HDL RATIO NORM SEE BELOW Normal [facility] Comment on above: Result Comment: 3.3 - 4.4 LOW RISK 4.4 - 7.1 AVERAGE RISK 7.1 - 11.0 MODERATE RISK >11.0 HIGH RISK Performed By: #### C MP, LIPID #### [facility] [address] [place] [address] Dr. David Swann Cholesterol [Mass/Vol] 125 mg/dL Normal <=200 [facility] Comment on above: Performed By: #### C MP, LIPID #### [facility] [address] [place] [address] Dr. David Swann Cholesterol in HDL [Mass/Vol] 29 mg/dL Critically low 40-60 [facility] Comment on above: Performed By: #### C MP, LIPID #### [facility] [address] [address] [address] David Swann Cholesterol in LDL [Mass/Vol] 85.6 mg/dL Normal [facility] Comment on above: Performed By: #### C MP, LIPID #### [facility] [address] [address] [address] David Swann Cholesterol.total/Cho lesterol in HDL [Mass ratio] 4.3 {ratio} Normal [facility] Comment on above: Performed By: #### C MP, LIPID #### [facility] [address] [address] [address] David Swann HDL NORMAL > or = 60 mg/dl - LO W CARDIOVASCULAR RISK <40 mg/dl - HIGH CARDIOVASCULAR RISK Normal [facility] Comment on above: Performed By: #### C MP, LIPID #### [facility] [address] [address] [address] David Swann LDL CALC NORMAL SEE BELOW Normal [facility] Comment on above: Result Comment: <100 mg/dl OPTIMAL 100 - 129 mg/dl NEAR OR ABOVE OPTIMAL 130 - 159 mg/dl BORDERLINE HIGH 160 - 189 mg/dl HIGH >190 mg/dl VERY HIGH Performed By: #### C MP, LIPID #### [facility] [address] [address] [address] David Swann Triglyceride [Mass/Vol] 52 mg/dL Normal <=150 [facility] Comment on above: Performed By: #### C MP, LIPID #### [facility] [address] [place] [address] Dr. David Swann VLDL CALC 10.4 mg/dL Normal [facility] Comment on above: Performed By: #### C MP, LIPID #### [facility] [address] [address] [address] David Swann PROF 14(COMP METB)on 023 Albumin [Mass/Vol] 3.0 g/dL Critically low 3.4-5.0 [facility] Comment on above: Performed By: #### C MP, LIPID #### [facility] [address] [place] [address] Dr. David Swann Albumin/Globulin [Mass ratio] 0.6 {ratio} Normal [facility] Comment on above: Performed By: #### C MP, LIPID #### [facility] [address] [address] [address] David Swann ALP [Catalytic activity/Vol] 79 U/L Normal 46-116 [facility] Comment on above: Performed By: #### C MP, LIPID #### [facility] [address] [address] [address] David Swann ALT [Catalytic activity/Vol] 14 U/L Normal 14-59 [facility] Comment on above: Performed By: #### C MP, LIPID #### [facility] [address] [address] [address] David Swann Anion gap [Moles/Vol] 12.1 mmol/L Normal [facility] Comment on above: Performed By: #### C MP, LIPID #### [facility] [address] [address] [address] David Swann AST [Catalytic activity/Vol] 12 U/L Critically low 15-37 [facility] Comment on above: Performed By: #### C MP, LIPID #### [facility] [address] [address] [address] David Swann Bilirubin [Mass/Vol] 0.3 mg/dL Normal 0.2-1.0 [facility] Comment on above: Performed By: #### C MP, LIPID #### [facility] [address] [address] [address] David Swann Calcium [Mass/Vol] 9.2 mg/dL Normal 8.5-10.1 [facility] Comment on above: Performed By: #### C MP, LIPID #### [facility] [address] [address] [address] David Swann Chloride [Moles/Vol] 103 mmol/L Normal 98-107 [facility] Comment on above: Performed By: #### C MP, LIPID #### [facility] [address] [address] [address] David Swann CO2 [Moles/Vol] 27.8 mmol/L Normal 21.0-32.0 [facility] Comment on above: Performed By: #### C MP, LIPID #### [facility] [address] [address] [address] David Swann Creatinine [Mass/Vol] 0.81 mg/dL Normal 0.55-1.02 [facility] Comment on above: Performed By: #### C MP, LIPID #### [facility] [address] [address] [address] David Swann EGFR-AF PANAMANIAN >60 Normal >=[address] [facility] Comment on above: Performed By: #### C MP, LIPID #### [facility] [address] [address] [address] David Swann EGFR-NON AF PANAMANIAN >60 Normal >=60 [facility] Comment on above: Performed By: #### C MP, LIPID #### [facility] [address] [address] [address] David Swann Globulin (S) [Mass/Vol] 4.8 g/dL Normal [facility] Comment on above: Performed By: #### C MP, LIPID #### [facility] [address] [address] [address] David Swann Glucose [Mass/Vol] 78 mg/dL Normal 74-106 [facility] Comment on above: Performed By: #### C MP, LIPID #### [facility] [address] [address] [address] David Swann Potassium [Moles/Vol] 3.9 mmol/L Normal 3.5-5.1 [facility] Comment on above: Performed By: #### C MP, LIPID #### [facility] [address] [address] [address] David Swann Protein [Mass/Vol] 7.8 g/dL Normal 6.4-8.2 [facility] Comment on above: Performed By: #### C MP, LIPID #### [facility] [address] [address] [address] David Swann Sodium [Moles/Vol] 139 mmol/L Normal 136-145 [facility] Comment on above: Performed By: #### C MP, LIPID #### [facility] [address] [address] [address] David Swann Urea nitrogen [Mass/Vol] 23.0 mg/dL Critically high 7.0-18.0 [facility] Comment on above: Performed By: #### C MP, LIPID #### [facility] [address] [address] [address] aDvid Swann Urea nitrogen/Creatinine [Mass ratio] 28.4 mg/mg Normal [facility] Comment on above: Performed By: #### C MP, LIPID #### [facility] [address] [address] [address] David Swann Physician Referralon 023 Physician Referral [id number] Normal [facility] Ambulatory Visit Summaryon 0 06-22-2022 Ambulatory Visit Summary KARUNA NELSON :1960 Visit Date:06/22/2022 Ambulatory Visit Instructions Your Diagnosis Diabetes HTN (hypertension) Diabetic retinopathy CHF (congestive heart failure) COPD (chronic obstructive pulmonary disease) Hypercholesterolemia Your Care Team Attending Physician - YUNI MAST MD Primary Care Physician - YUNI MAST MD This Is Your Medications List [facility] Prescription (sure comfort pen needle 30 gauge [...] By Mouth 2 times a day Unchanged [facility] Prescription (sure comfort pen needle 30 gauge x 5) See instructions use bid for E10.8 Unchanged [...] retinopathy HTN (hypertension) Hypercholesterolemia Hypertensive cardiomyopathy Smoker [facility] Ambulatory Visit Summary KARUNA NELSON :1960 Visit Date:06/22/2022 Ambulatory Visit Instructions Your Diagnosis Diabetes HTN (hypertension) Diabetic retinopathy CHF (congestive heart failure) COPD (chronic obstructive pulmonary disease) Hypercholesterolemia Your Care Team Attending Physician - YUNI MAST MD Primary Care Physician - YUNI MAST MD This Is Your Medications List [facility] Prescription (sure comfort pen needle 30 gauge [...] inactivated, Postpone due to refusal SARS-CoV-2 mRNA (toheribertoeran 5y-11y) vac, Postpone due to refusal Allergies albuterol (Severe) sulfa drugs (Mild) Problems Ongoing - Any problem that you are currently receiving treatment for. Anemia BMI 39.0-39.9,adult CHF (congestive heart failure) COPD (chronic obstructive pulmonary disease) CVA (cerebral vascular accident) Diabetes Diabetic retinopathy HTN (hypertension) Hypercholesterolemia Hypertensive cardiomyopathy Smoker Normal [facility] Family Medicine Office/Clini c Noteon 06-22-2022 Family Medicine [...] Smoker, current (more content not included)... Normal [facility] Comment on above: Result Comment: Elec tronically Signed By: ELIUD MISTRY, YUNI Tony\.br\Date and Time Signed: 06/22/22 15:51 EDT PROF CHEM 8 (BAS METB)on Anion gap [Moles/Vol] 14.8 mmol/L Normal [facility] Comment on above: Performed By: #### P OCGLUC #### [facility] [address] [address] [address] David Swann Calcium [Mass/Vol] 9.2 mg/dL Normal 8.5-10.1 [facility] Comment on above: Performed By: #### P OCGLUC #### [facility] [address] [address] [address] David Swann Chloride [Moles/Vol] 105 mmol/L Normal 98-107 [facility] Comment on above: Performed By: #### P OCGLUC #### [facility] [address] [address] [address] David Swann CO2 [Moles/Vol] 26.7 mmol/L Normal 21.0-32.0 [facility] Comment on above: Performed By: #### P OCGLUC #### [facility] [address] [address] [address] David Swann Creatinine [Mass/Vol] 0.97 mg/dL Normal 0.55-1.02 [facility] Comment on above: Performed By: #### P OCGLUC #### [facility] [address] [address] [address] David Swann EGFR-AF PANAMANIAN >60 Normal >=60 [facility] Comment on above: Performed By: #### P OCGLUC #### [facility] [address] [address] [address] David Swann EGFR-NON AF PANAMANIAN 58 mL/min/1.73m2 Critically low >=60 [facility] Comment on above: Performed By: #### P OCGLUC #### [facility] [address] [place] [address] Dr. David Swann Glucose [Mass/Vol] 125 mg/dL Critically high 74-106 [facility] Comment on above: Performed By: #### P OCGLUC #### [facility] [address] [place] [address] Dr. David Swann Potassium [Moles/Vol] 4.5 mmol/L Normal 3.5-5.1 [facility] Comment on above: Performed By: #### P OCGLUC #### [facility] [address] [place] [address] Dr. David Swann Sodium [Moles/Vol] 142 mmol/L Normal 136-145 [facility] Comment on above: Performed By: #### P OCGLUC #### [facility] [address] [place] [address] Dr. David Swann Urea nitrogen [Mass/Vol] 31.0 mg/dL Critically high 7.0-18.0 [facility] Comment on above: Performed By: #### P OCGLUC #### [facility] [address] [place] [address] Dr. David Swann Urea nitrogen/Creatinine [Mass ratio] 32.0 mg/mg Normal [facility] Comment on above: Performed By: #### P OCGLUC #### [facility] [address] [place] [address] Dr. David Swann CBC AUTO DIFFon 11-18-2021 BASO # 0.0 103/ul Normal 0.0-0.1 [facility] Comment on above: Performed By: #### C BC #### [facility] [address] [place] [address] Dr. David Swann Basophils/100 WBC (Bld) 0.6 % Normal 0.2-2.0 [facility] Comment on above: Performed By: #### C BC #### [facility] [address] [place] [address] Dr. David Swann EO # 0.2 103/ul Normal 0.0-0.7 [facility] Comment on above: Performed By: #### C BC #### [facility] [address] [place] [address] Dr. David Swann Eosinophils/100 WBC (Bld) 3.5 % Normal 0.9-7.0 [facility] Comment on above: Performed By: #### C BC #### [facility] [address] [place] [address] Dr. David Swann Erythrocyte distribution width (RBC) [Ratio] 15.9 % Critically high 11.0-15.0 [facility] Comment on above: Performed By: #### C BC #### [facility] [address] [place] [address] Dr. David Swann Hematocrit (Bld) [Volume fraction] 33.6 % Critically low 36.0-48.0 [facility] Comment on above: Performed By: #### C BC #### [facility] [address] [place] [address] Dr. David Swann Hemoglobin (Bld) [Mass/Vol] 10.1 g/dL Critically low 12.0-16.0 [facility] Comment on above: Performed By: #### C BC #### [facility] [address] [place] [address] Dr. David Swann IG # 0.01 10e3/ul Normal 0.00-0.03 [facility] Comment on above: Performed By: #### C BC #### [facility] [address] [place] [address] Dr. David Swann IG % 0.1 % Normal 0.0-0.5 [facility] Comment on above: Performed By: #### C BC #### [facility] [address] [place] [address] Dr. David Swann LYMPH # 2.0 103/ul Normal 1.2-3.8 [facility] Comment on above: Performed By: #### C BC #### [facility] [address] [place] [address] Dr. David Swann Lymphocytes/100 WBC (Bld) 28.5 % Normal 20.5-60.0 [facility] Comment on above: Performed By: #### C BC #### [facility] [address] [place] [address] Dr. David Swann MANUAL DIFF REQ NO Normal [facility] Comment on above: Performed By: #### C BC #### [facility] [address] [place] [address] Dr. David Swann MCH (RBC) [Entitic mass] 25.7 pg Critically low 26.7-34.0 [facility] Comment on above: Performed By: #### C BC #### [facility] [address] [place] [address] Dr. David Swann MCHC (RBC) [Mass/Vol] 30.1 g/dL Normal 29.9-35.2 [facility] Comment on above: Performed By: #### C BC #### [facility] [address] [place] [address] Dr. David Swann MCV (RBC) [Entitic vol] 85.5 fL Normal 81.0-99.0 [facility] Comment on above: Performed By: #### C BC #### [facility] [address] [place] [address] Dr. David Swann MONO # 0.5 103/ul Normal 0.3-0.8 [facility] Comment on above: Performed By: #### C BC #### [facility] [address] [place] [address] Dr. David Swann Monocytes/100 WBC (Bld) 6.7 % Normal 1.7-12.0 [facility] Comment on above: Performed By: #### C BC #### [facility] [address] [place] [address] Dr. David Swann NEUT # 4.1 103/ul Normal 1.4-6.5 [facility] Comment on above: Performed By: #### C BC #### [facility] [address] [place] [address] Dr. David Swann Neutrophils/100 WBC (Bld) 60.6 % Normal 43.0-75.0 [facility] Comment on above: Performed By: #### C BC #### [facility] [address] [place] [address] Dr. David Swann Platelet mean volume (Bld) [Entitic vol] 10.3 fL Normal 9.5-13.5 [facility] Comment on above: Performed By: #### C BC #### [facility] [address] [place] [address] Dr. David Swann PLT 268 103/ul Normal 150-450 [facility] Comment on above: Performed By: #### C BC #### [facility] [address] [place] [address] Dr. David Swann RBC 3.93 106/ul Critically low 4.20-5.40 [facility] Comment on above: Performed By: #### C BC #### [facility] [address] [place] [address] Dr. David Swann WBC 6.8 103/ul Normal 4.0-11.0 [facility] Comment on above: Performed By: #### C BC #### [facility] [address] [place] [address] Dr. David Swann IRON AND TIBCon 11-18-2021 % SATURATION 18.8 % Normal [facility] Comment on above: Performed By: #### F ETIBC, B12FOL #### [facility] [address] [place] [address] Dr. David Swann Iron [Mass/Vol] 58.0 ug/dL Normal 50.0-170.0 [facility] Comment on above: Performed By: #### F ETIBC, B12FOL #### [facility] [address] [place] [address] Dr. David Swann TIBC DIRECT 308.0 ug/dL Normal 250.0-450.0 [facility] Comment on above: Performed By: #### F ETIBC, B12FOL #### [facility] [address] [place] [address] Dr. David Swann POINT OF CARE GLUCOSEon 11-01 Glucose [Mass/Vol] 136 mg/dL Critically high 74-106 [facility] Comment on above: Performed By: #### F ETIBC, B12FOL #### [facility] [address] [place] [address] Dr. David Swann PROF 14(COMP METB)on 022 Albumin [Mass/Vol] 2.9 g/dL Critically low 3.4-5.0 [facility] Comment on above: Performed By: #### F ETIBC, B12FOL #### [facility] [address] [address] [address] David Swann Albumin/Globulin [Mass ratio] 0.7 {ratio} Normal [facility] Comment on above: Performed By: #### F ETIBC, B12FOL #### [facility] [address] [address] [address] David Swann ALP [Catalytic activity/Vol] 67 U/L Normal 46-116 [facility] Comment on above: Performed By: #### F ETIBC, B12FOL #### [facility] [address] [address] [address] David Swann ALT [Catalytic activity/Vol] 13 U/L Critically low 14-59 [facility] Comment on above: Performed By: #### F ETIBC, B12FOL #### [facility] [address] [address] [address] David Swann Anion gap [Moles/Vol] 10.3 mmol/L Normal [facility] Comment on above: Performed By: #### F ETIBC, B12FOL #### [facility] [address] [address] [address] David Swann AST [Catalytic activity/Vol] 12 U/L Critically low 15-37 [facility] Comment on above: Performed By: #### F ETIBC, B12FOL #### [facility] [address] [address] [address] David Swann Bilirubin [Mass/Vol] 0.3 mg/dL Normal 0.2-1.0 [facility] Comment on above: Performed By: #### F ETIBC, B12FOL #### [facility] [address] [address] [address] David Swann Calcium [Mass/Vol] 8.8 mg/dL Normal 8.5-10.1 [facility] Comment on above: Performed By: #### F ETIBC, B12FOL #### [facility] [address] [address] [address] David Swann Chloride [Moles/Vol] 105 mmol/L Normal 98-107 [facility] Comment on above: Performed By: #### F ETIBC, B12FOL #### [facility] [address] [address] [address] David Swann CO2 [Moles/Vol] 30.4 mmol/L Normal 21.0-32.0 [facility] Comment on above: Performed By: #### F ETIBC, B12FOL #### [facility] [address] [place] [address] Dr. David Swann Creatinine [Mass/Vol] 0.96 mg/dL Normal 0.55-1.02 [facility] Comment on above: Performed By: #### F ETIBC, B12FOL #### [facility] [address] [place] [address] Dr. David Swann EGFR-AF PANAMANIAN >60 Normal >=60 [facility] Comment on above: Performed By: #### F ETIBC, B12FOL #### [facility] [address] [place] [address] Dr. David Swann EGFR-NON AF PANAMANIAN 59 mL/min/1.73m2 Critically low >=60 [facility] Comment on above: Performed By: #### F ETIBC, B12FOL #### [facility] [address] [place] [address] Dr. David Swann Globulin (S) [Mass/Vol] 4.0 g/dL Normal [facility] Comment on above: Performed By: #### F ETIBC, B12FOL #### [facility] [address] [place] [address] Dr. David Swann Glucose [Mass/Vol] 59 mg/dL Critically low 74-106 [facility] Comment on above: Performed By: #### F ETIBC, B12FOL #### [facility] [address] [place] [address] Dr. David Swann Potassium [Moles/Vol] 3.7 mmol/L Normal 3.5-5.1 [facility] Comment on above: Performed By: #### F ETIBC, B12FOL #### [facility] [address] [place] [address] Dr. David Swann Protein [Mass/Vol] 6.9 g/dL Normal 6.4-8.2 [facility] Comment on above: Performed By: #### F ETIBC, B12FOL #### [facility] [address] [place] [address] Dr. David Swann Sodium [Moles/Vol] 142 mmol/L Normal 136-145 [facility] Comment on above: Performed By: #### F ETIBC, B12FOL #### [facility] [address] [place] [address] Dr. David Swann Urea nitrogen [Mass/Vol] 30.0 mg/dL Critically high 7.0-18.0 [facility] Comment on above: Performed By: #### F ETIBC, B12FOL #### [facility] [address] [place] [address] Dr. David Swann Urea nitrogen/Creatinine [Mass ratio] 31.2 mg/mg Normal [facility] Comment on above: Performed By: #### F ETIBC, B12FOL #### [facility] [address] [place] [address] Dr. David Swann VIT B12 AND FOLATEon 022 Cobalamin (Vitamin B12) [Mass/Vol] 292.0 pg/mL Normal 193.0-986.0 [facility] Comment on above: Performed By: #### F ETIBC, B12FOL #### [facility] [address] [place] [address] Dr. David Swann FOLATE 13.80 ng/mL Normal 8.60-58.90 [facility] Comment on above: Performed By: #### F ETIBC, B12FOL #### [facility] [address] [place] [address] Dr. David Swann BNPon 11-17-2021 Natriuretic peptide B (Bld) [Mass/Vol] 1956.0 pg/mL Critically high <=900.0 [facility] Comment on above: Performed By: #### B JUNIOR ORACLE DBA #### [facility] [address] [place] [address] Dr. David Swann CBC AUTO DIFFon 11-17-2021 BASO # 0.1 103/ul Normal 0.0-0.1 [facility] Comment on above: Performed By: #### C BC #### [facility] [address] [place] [address] Dr. David Swann Basophils/100 WBC (Bld) 0.8 % Normal 0.2-2.0 [facility] Comment on above: Performed By: #### C BC #### [facility] [address] [place] [address] Dr. David Swann EO # 0.1 103/ul Normal 0.0-0.7 [facility] Comment on above: Performed By: #### C BC #### [facility] [address] [place] [address] Dr. David Swann Eosinophils/100 WBC (Bld) 1.4 % Normal 0.9-7.0 [facility] Comment on above: Performed By: #### C BC #### [facility] [address] [place] [address] Dr. David Swann Erythrocyte distribution width (RBC) [Ratio] 16.0 % Critically high 11.0-15.0 [facility] Comment on above: Performed By: #### C BC #### [facility] [address] [place] [address] Dr. David Swann Hematocrit (Bld) [Volume fraction] 33.9 % Critically low 36.0-48.0 [facility] Comment on above: Performed By: #### C BC #### [facility] [address] [place] [address] Dr. David Swann Hemoglobin (Bld) [Mass/Vol] 10.3 g/dL Critically low 12.0-16.0 [facility] Comment on above: Performed By: #### C BC #### [facility] [address] [place] [address] Dr. David Swann IG # 0.04 10e3/ul Critically high 0.00-0.03 [facility] Comment on above: Performed By: #### C BC #### [facility] [address] [place] [address] Dr. David Swann IG % 0.4 % Normal 0.0-0.5 [facility] Comment on above: Performed By: #### C BC #### [facility] [address] [place] [address] Dr. David Swann LYMPH # 2.1 103/ul Normal 1.2-3.8 [facility] Comment on above: Performed By: #### C BC #### [facility] [address] [place] [address] Dr. David Swann Lymphocytes/100 WBC (Bld) 22.8 % Normal 20.5-60.0 [facility] Comment on above: Performed By: #### C BC #### [facility] [address] [place] [address] Dr. David Swann MANUAL DIFF REQ NO Normal [facility] Comment on above: Performed By: #### C BC #### [facility] [address] [place] [address] Dr. David Swann MCH (RBC) [Entitic mass] 26.3 pg Critically low 26.7-34.0 [facility] Comment on above: Performed By: #### C BC #### [facility] [address] [place] [address] Dr. David Swann MCHC (RBC) [Mass/Vol] 30.4 g/dL Normal 29.9-35.2 [facility] Comment on above: Performed By: #### C BC #### [facility] [address] [place] [address] Dr. David Swann MCV (RBC) [Entitic vol] 86.5 fL Normal 81.0-99.0 [facility] Comment on above: Performed By: #### C BC #### [facility] [address] [place] [address] Dr. David Swann MONO # 0.4 103/ul Normal 0.3-0.8 [facility] Comment on above: Performed By: #### C BC #### [facility] [address] [place] [address] Dr. David Swann Monocytes/100 WBC (Bld) 4.5 % Normal 1.7-12.0 [facility] Comment on above: Performed By: #### C BC #### [facility] [address] [place] [address] Dr. David Swann NEUT # 6.3 103/ul Normal 1.4-6.5 [facility] Comment on above: Performed By: #### C BC #### [facility] [address] [place] [address] Dr. David Swann Neutrophils/100 WBC (Bld) 70.1 % Normal 43.0-75.0 [facility] Comment on above: Performed By: #### C BC #### [facility] [address] [place] [address] Dr. David Swann Platelet mean volume (Bld) [Entitic vol] 10.3 fL Normal 9.5-13.5 [facility] Comment on above: Performed By: #### C BC #### [facility] [address] [place] [address] Dr. David Swann PLT 285 103/ul Normal 150-450 [facility] Comment on above: Performed By: #### C BC #### [facility] [address] [place] [address] Dr. David Swann RBC 3.92 106/ul Critically low 4.20-5.40 [facility] Comment on above: Result Comment: DR Susan WALDROP NOTIFIED ABOUT DELTA CHECK--HE WILL RECHECK IT WITH REPEAT TOMORROW Performed By: #### C BC #### [facility] [address] [place] [address] Dr. David Swann WBC 9.1 103/ul Normal 4.0-11.0 [facility] Comment on above: Performed By: #### C BC #### [facility] [address] [place] [address] Dr. David Swann BASO # 0.1 103/ul Normal 0.0-0.1 [facility] Comment on above: Performed By: #### P OCGLUC #### [facility] [address] [place] [address] Dr. David Swann Basophils/100 WBC (Bld) 0.8 % Normal 0.2-2.0 [facility] Comment on above: Performed By: #### P OCGLUC #### [facility] [address] [place] [address] Dr. David Swann EO # 0.3 103/ul Normal 0.0-0.7 [facility] Comment on above: Performed By: #### P OCGLUC #### [facility] [address] [place] [address] Dr. David Swann Eosinophils/100 WBC (Bld) 2.4 % Normal 0.9-7.0 [facility] Comment on above: Performed By: #### P OCGLUC #### [facility] [address] [place] [address] Dr. David Swann Erythrocyte distribution width (RBC) [Ratio] 15.9 % Critically high 11.0-15.0 [facility] Comment on above: Performed By: #### P OCGLUC #### [facility] [address] [place] [address] Dr. David Swann Hematocrit (Bld) [Volume fraction] 39.4 % Normal 36.0-48.0 [facility] Comment on above: Performed By: #### P OCGLUC #### [facility] [address] [place] [address] Dr. David Swann Hemoglobin (Bld) [Mass/Vol] 12.1 g/dL Normal 12.0-16.0 [facility] Comment on above: Performed By: #### P OCGLUC #### [facility] [address] [place] [address] Dr. David Swann IG # 0.06 10e3/ul Critically high 0.00-0.03 [facility] Comment on above: Performed By: #### P OCGLUC #### [facility] [address] [place] [address] Dr. David Swann IG % 0.5 % Normal 0.0-0.5 [facility] Comment on above: Performed By: #### P OCGLUC #### [facility] [address] [address] [address] David Swann LYMPH # 2.9 103/ul Normal 1.2-3.8 [facility] Comment on above: Performed By: #### P OCGLUC #### [facility] [address] [place] [address] Dr. David Swann Lymphocytes/100 WBC (Bld) 23.1 % Normal 20.5-60.0 [facility] Comment on above: Performed By: #### P OCGLUC #### [facility] [address] [place] [address] Dr. David Swann MANUAL DIFF REQ NO Normal [facility] Comment on above: Performed By: #### P OCGLUC #### [facility] [address] [place] [address] Dr. David Swann MCH (RBC) [Entitic mass] 26.2 pg Critically low 26.7-34.0 [facility] Comment on above: Performed By: #### P OCGLUC #### [facility] [address] [place] [address] Dr. David Swann MCHC (RBC) [Mass/Vol] 30.7 g/dL Normal 29.9-35.2 [facility] Comment on above: Performed By: #### P OCGLUC #### [facility] [address] [place] [address] Dr. David Swann MCV (RBC) [Entitic vol] 85.3 fL Normal 81.0-99.0 [facility] Comment on above: Performed By: #### P OCGLUC #### [facility] [address] [place] [address] Dr. David Swann MONO # 0.7 103/ul Normal 0.3-0.8 [facility] Comment on above: Performed By: #### P OCGLUC #### [facility] [address] [place] [address] Dr. David Swann Monocytes/100 WBC (Bld) 5.4 % Normal 1.7-12.0 [facility] Comment on above: Performed By: #### P OCGLUC #### [facility] [address] [address] [address] David Swann NEUT # 8.5 103/ul Critically high 1.4-6.5 [facility] Comment on above: Performed By: #### P OCGLUC #### [facility] [address] [address] [address] David Swann Neutrophils/100 WBC (Bld) 67.8 % Normal 43.0-75.0 [facility] Comment on above: Performed By: #### P OCGLUC #### [facility] [address] [place] [address] Dr. David Swann Platelet mean volume (Bld) [Entitic vol] 10.2 fL Normal 9.5-13.5 [facility] Comment on above: Performed By: #### P OCGLUC #### [facility] [address] [place] [address] Dr. David Swann PLT 359 103/ul Normal 150-450 [facility] Comment on above: Performed By: #### P OCGLUC #### [facility] [address] [place] [address] Dr. David Swann RBC 4.62 106/ul Normal 4.20-5.40 [facility] Comment on above: Performed By: #### P OCGLUC #### [facility] [address] [place] [address] Dr. David Swann WBC 12.5 103/ul Critically high 4.0-11.[address] [facility] Comment on above: Performed By: #### P OCGLUC #### [facility] [address] [place] [address] Dr. David Swann Covid-19 PCR ([facility])on 11-01 SARS-CoV-2 (COVID-19) RNA CARLOS+probe Ql (Unsp spec) Not detected Normal NOT DETECTED [facility] Comment on above: Result Comment: When diagnostic [...] for this test is supported by the Manager Nursing of Health and Human Service's declaration that [...] Performed By: #### F ETIBC, B12FOL #### [facility] [address] [place] [address] Dr. David Swann ECHOCARDIO M/2D COMPLETEon 0 11-17-2021 ECHOCARDIO M/2D COMPLETE Patient: KARUNA NELSON Exam Date: 11/17/2021 : 1960 Gender:F Ordering : DR YUNI MAST . Admission #: [id number] Family : Order #: [id number] CLICK HERE TO VIEW EXAM ECHOCARDIOGRAM REPORT [...] Jackson M.D. on 11/17/2021 at 17:05 Normal [facility] POINT OF CARE GLUCOSEon 11-01 Glucose [Mass/Vol] 170 mg/dL Critically high 74-106 [facility] Comment on above: Performed By: #### P OCGLUC #### [facility] [address] [address] [address] David Swann Glucose [Mass/Vol] 189 mg/dL Critically high 74-106 [facility] Comment on above: Performed By: #### F ETIBC, B12FOL #### [facility] [address] [address] [address] David Swann Glucose [Mass/Vol] 99 mg/dL Normal 74-106 [facility] Comment on above: Performed By: #### P OCGLUC #### [facility] [address] [address] [address] David Swann Glucose [Mass/Vol] 95 mg/dL Normal 74-106 [facility] Comment on above: Performed By: #### F ETIBC, B12FOL #### [facility] [address] [address] [address] David Swann PROF 14(COMP METB)on 022 Albumin [Mass/Vol] 3.5 g/dL Normal 3.4-5.0 [facility] Comment on above: Performed By: #### P OCGLUC #### [facility] [address] [address] [address] David Swann Albumin/Globulin [Mass ratio] 0.7 {ratio} Normal [facility] Comment on above: Performed By: #### P OCGLUC #### [facility] [address] [address] [address] David Swann ALP [Catalytic activity/Vol] 99 U/L Normal 46-116 [facility] Comment on above: Performed By: #### P OCGLUC #### [facility] [address] [address] [address] David Swann ALT [Catalytic activity/Vol] 19 U/L Normal 14-59 [facility] Comment on above: Performed By: #### P OCGLUC #### [facility] [address] [address] [address] David Swann Anion gap [Moles/Vol] 14.5 mmol/L Normal [facility] Comment on above: Performed By: #### P OCGLUC #### [facility] [address] [address] [address] David Swann AST [Catalytic activity/Vol] 23 U/L Normal 15-37 [facility] Comment on above: Performed By: #### P OCGLUC #### [facility] [address] [address] [address] David Swann Bilirubin [Mass/Vol] 0.3 mg/dL Normal 0.2-1.0 [facility] Comment on above: Performed By: #### P OCGLUC #### [facility] [address] [address] [address] David Swann Calcium [Mass/Vol] 9.2 mg/dL Normal 8.5-10.1 [facility] Comment on above: Performed By: #### P OCGLUC #### [facility] [address] [address] [address] David Swann Chloride [Moles/Vol] 102 mmol/L Normal 98-107 [facility] Comment on above: Performed By: #### P OCGLUC #### [facility] [address] [address] [address] David Swann CO2 [Moles/Vol] 27.4 mmol/L Normal 21.0-32.0 [facility] Comment on above: Performed By: #### P OCGLUC #### [facility] [address] [address] [address] David Swann Creatinine [Mass/Vol] 1.09 mg/dL Critically high 0.55-1.02 [facility] Comment on above: Performed By: #### P OCGLUC #### [facility] [address] [address] [address] David Swann EGFR-AF PANAMANIAN >60 Normal >=60 [facility] Comment on above: Performed By: #### P OCGLUC #### [facility] [address] [address] [address] David Swann EGFR-NON AF PANAMANIAN 51 mL/min/1.73m2 Critically low >=60 [facility] Comment on above: Performed By: #### P OCGLUC #### [facility] [address] [address] [address] David Swann Globulin (S) [Mass/Vol] 4.8 g/dL Normal [facility] Comment on above: Performed By: #### P OCGLUC #### [facility] [address] [address] [address] David Swann Glucose [Mass/Vol] 224 mg/dL Critically high 74-106 [facility] Comment on above: Performed By: #### P OCGLUC #### [facility] [address] [address] [address] David Swann Potassium [Moles/Vol] 3.9 mmol/L Normal 3.5-5.1 [facility] Comment on above: Performed By: #### P OCGLUC #### [facility] [address] [address] [address] David Swann Protein [Mass/Vol] 8.3 g/dL Critically high 6.4-8.2 [facility] Comment on above: Performed By: #### P OCGLUC #### [facility] [address] [address] [address] David Swann Sodium [Moles/Vol] 140 mmol/L Normal 136-145 [facility] Comment on above: Performed By: #### P OCGLUC #### [facility] [address] [address] [address] David Swann Urea nitrogen [Mass/Vol] 24.0 mg/dL Critically high 7.0-18.0 [facility] Comment on above: Performed By: #### P OCGLUC #### [facility] [address] [address] [address] David Swann Urea nitrogen/Creatinine [Mass ratio] 22.0 mg/mg Normal [facility] Comment on above: Performed By: #### P OCGLUC #### [facility] [address] [address] [address] David Swann TROPONIN, HIGH SENSITIVITYon 11-17-2021 HSTROP 44.7 pg/mL Normal 4.0-51.3 [facility] Comment on above: Result Comment: CUT- OFF POINTS HAVE BEEN ESTABLISHED BASED ON THE FOURTH UNIVERSAL DEFINITIONS OF MYOCARDIAL INFARCTION. THE UPPER REFERENCE LIMIT (URL) OF TROPONIN, DEFINED THE 99TH PERCENTILE OF cTnI DISTRIBUTION IN A REFERENCE POPULATION, HAS BEEN CONFIRMED THE DECISION THRESHOLD FOR SC DIAGNOSIS. Performed By: #### P OCGLUC #### [facility] [address] [address] [address] David Swann XR CHEST 1 Von [...] by: RHETT MARY Date: 2021-11-17 00:49 Normal [facility] GLYCOHEMOGLOBIN A1Con 2021 ADA RECOMMENDATION SEE BELOW Normal [facility] Comment on above: Result Comment: ADA RECOMMENDED LIMIT 4.0 - 6.0 ADA THERAPEUTIC TARGET < 7.0 ACTION SUGGESTED > 7.0 Performed By: #### A 1C #### [facility] [address] [address] [address] David Swann Glucose [Mass/Vol] 154 mg/dL Normal [facility] Comment on above: Performed By: #### A 1C #### [facility] [address] [address] [address] David Swann HbA1c (Bld) [Mass fraction] 7.0 % Critically high 4.5-6.2 [facility] Comment on above: Performed By: #### A 1C #### [facility] [address] [place] [address] Dr. David Swann LIPID PROFILEon 11-03-2021 CHOL-HDL RATIO NORM SEE BELOW Normal [facility] Comment on above: Result Comment: 3.3 - 4.4 LOW RISK 4.4 - 7.1 AVERAGE RISK 7.1 - 11.0 MODERATE RISK >11.0 HIGH RISK Performed By: #### L IVER, LIPID #### [facility] [address] [place] [address] Dr. David Swann Cholesterol [Mass/Vol] 134 mg/dL Normal <=200 [facility] Comment on above: Performed By: #### L IVER, LIPID #### [facility] [address] [place] [address] Dr. David Swann Cholesterol in HDL [Mass/Vol] 36 mg/dL Critically low 40-60 [facility] Comment on above: Performed By: #### L IVER, LIPID #### [facility] [address] [address] [address] David Swann Cholesterol in LDL [Mass/Vol] 71.6 mg/dL Normal [facility] Comment on above: Performed By: #### L IVER, LIPID #### [facility] [address] [place] [address] Dr. David Swann Cholesterol.total/Cho lesterol in HDL [Mass ratio] 3.7 {ratio} Normal [facility] Comment on above: Performed By: #### L IVER, LIPID #### [facility] [address] [address] [address] David Swann HDL NORMAL > or = 60 mg/dl - LO W CARDIOVASCULAR RISK <40 mg/dl - HIGH CARDIOVASCULAR RISK Normal [facility] Comment on above: Performed By: #### L IVER, LIPID #### [facility] [address] [address] [address] David Swann LDL CALC NORMAL SEE BELOW Normal [facility] Comment on above: Result Comment: <100 mg/dl OPTIMAL 100 - 129 mg/dl NEAR OR ABOVE OPTIMAL 130 - 159 mg/dl BORDERLINE HIGH 160 - 189 mg/dl HIGH >190 mg/dl VERY HIGH Performed By: #### L IVCHRISTO, LIPID #### [facility] [address] [address] [address] David Swann Triglyceride [Mass/Vol] 132 mg/dL Normal <=150 [facility] Comment on above: Performed By: #### L IVCHRISTO, LIPID #### [facility] [address] [address] [address] David Swann VLDL CALC 26.4 mg/dL Normal [facility] Comment on above: Performed By: #### L IVCHRISTO, LIPID #### [facility] [address] [address] [address] David Swann LIVER PROFILEon 11-03-2021 Albumin [Mass/Vol] 3.4 g/dL Normal 3.4-5.0 [facility] Comment on above: Performed By: #### L IVCHRISTO, LIPID #### [facility] [address] [address] [address] David Swann Albumin/Globulin [Mass ratio] 0.8 {ratio} Normal [facility] Comment on above: Performed By: #### L IVER, LIPID #### [facility] [address] [address] [address] David Swann ALP [Catalytic activity/Vol] 73 U/L Normal 46-116 [facility] Comment on above: Performed By: #### L IVCHRISTO, LIPID #### [facility] [address] [address] [address] David Swann ALT [Catalytic activity/Vol] 14 U/L Normal 14-59 [facility] Comment on above: Performed By: #### L IVER, LIPID #### [facility] [address] [address] [address] David Swann AST [Catalytic activity/Vol] 10 U/L Critically low 15-37 [facility] Comment on above: Performed By: #### L IVER, LIPID #### [facility] [address] [place] [address] Dr. David Swann BILI, CONJUGATED 0.0 mg/dL Normal 0.0-0.2 [facility] Comment on above: Performed By: #### L IVCHRISTO, LIPID #### [facility] [address] [place] [address] Dr. David Swann Bilirubin [Mass/Vol] 0.3 mg/dL Normal 0.2-1.0 [facility] Comment on above: Performed By: #### L IVCHRISTO, LIPID #### [facility] [address] [place] [address] Dr. David Swann Globulin (S) [Mass/Vol] 4.4 g/dL Normal [facility] Comment on above: Performed By: #### L IVER, LIPID #### [facility] [address] [place] [address] Dr. David Swann Protein [Mass/Vol] 7.8 g/dL Normal 6.4-8.2 [facility] Comment on above: Performed By: #### L IVER, LIPID #### [facility] [address] [place] [address] Dr. David Swann ECHOCARDIO M/2D COMPLETEon 0 08-18-2021 ECHOCARDIO M/2D COMPLETE Patient: KARUNA NELSON Exam Date: 08/18/2021 : 1960 Gender:F Ordering : DR YUNI MAST . Admission #: [id number] Family : Order #: [id number] CLICK HERE TO VIEW EXAM ECHOCARDIOGRAM REPORT [...] Area(A4C): 21.70 cm2 Left Atrium Systolic Volume(A2C): 69084 mm3 Left Atrium Systolic Volume(A4C): 35772 mm3 Mitral Valve MV E to A Ratio: 1.10 MV Mean Gradient: 4 mm[Hg] Deceleration [place]: 9280 mm/s2 Cardiovascular Orifice Area: 1.63 cm2 [...] Santana M.D. on 08/18/2021 at 20:20 Normal [facility] US CAROTID ART BILon 05-16-2 022 US [...] LYRIC PADRON Date: 2021-08-16 13:09 Normal [facility] MRI BRAIN WO CONon MRI BRAIN WO CON EXAMINATION: MRI BRA IN WO CON, 08/02/2021 9:52 AM EDT HISTORY: Headache , [...] LYRIC PADRON Date: 2021-08-02 10:25 Normal [facility] Cardiovascular Lab Reporton 08-08-2020 Cardiovascular Lab Report [facility] Patient Name: [facility] Karuna MR #: [id number] Department of Physician: Ivan Mosley MFaustino Division of Service Date: 08/07/2020 Cardiology Birthdate: 1960 Adult Cardiovascular Room #: [place] [address] Cardiovascular Laboratory Report CLINICAL PRESENTATION: The patient is a 59-year-old female with past medical history significant for obesity, type 2 diabetes mellitus on insulin, hyperlipidemia, hypertension, prior TIA in 2011, COPD. She has chest pain radiating to [...] guidance and a micropuncture access technique, a 6-Libyan sheath was placed in right internal jugular [...] artery was anesthetized with 1% lidocaine. A 6-Libyan Terumo Glidesheath Slender was placed in the right radial artery. The radial anti-vasospasm cocktail of nitroglycerin 200 mcg and verapamil 2.5 mg administered through the sheath. All catheter exchanges were made over the J-tip guidewire. A 5-Libyan JR5 was used to engage the right coronary artery. A 5-Libyan JL3.5 was used to engage the left [...] posterolateral (more content not included)... Normal [facility] CBC COMPLETE BLOOD COUNTon 0 - Erythrocyte distribution width (RBC) [Ratio] 20.8 % High 11.5-15.0 [facility] Comment on above: Performed By: #### [id number] #### [facility] [address] [place] [address], [facility] Hematocrit (Bld) [Volume fraction] 38.7 % Normal 36.0-45.0 [facility] Comment on above: Performed By: #### [id number] #### [facility] [address] Hemoglobin (Bld) [Mass/Vol] 11.6 g/dL Low 12.0-15.0 [facility] Comment on above: Performed By: #### [id number] #### [facility] [address] MCH (RBC) [Entitic mass] 23.0 pg Low 27.0-33.0 [facility] Comment on above: Performed By: #### [id number] #### [facility] [address] MCHC (RBC) [Mass/Vol] 30.0 g/dL Low 32.0-35.0 [facility] Comment on above: Performed By: #### [id number] #### [facility] [address] MCV (RBC) [Entitic vol] 76.6 fL Low 82.0-98.0 [facility] Comment on above: Performed By: #### [id number] #### [facility] [address] Nucleated RBC/100 WBC (Bld) [Ratio] 0 % Normal 0-0 [facility] Comment on above: Performed By: #### [id number] #### [facility] [address] [place] [address], [facility] PLAT CNT 419 10*3/uL High 150-400 [facility] Comment on above: Performed By: #### [id number] #### [facility] [address] RBC (Bld) [#/Vol] 5.05 10*6/uL High 3.80-5.00 [facility] Comment on above: Performed By: #### [id number] #### [facility] [address] [place] [address], [facility] WBC (Bld) [#/Vol] 10.00 10*3/uL Normal 4.00-10.60 [facility] Comment on above: Performed By: #### [id number] #### [facility] [address] Vital Signs Date Time Vital Sign Value Performing Clinician Joseph medina 05-23-2023 13:56-0500 Blood Pressure Location 2Peer (Qlipso) [facility] [place] 05-23-2023 13:56-0500 Diastolic blood pressure 54 mm[Hg] 2Peer (Qlipso) [facility] 05-23-2023 13:56-0500 Heart rate 70 /min 2Peer (Qlipso) [facility] 05-23-2023 13:56-0500 Respiratory rate 16 /min 2Peer (Qlipso) [facility] 05-23-2023 13:56-0500 Systolic blood pressure 112 mm[Hg] 2Peer (Qlipso) [facility] 05-18-2023 09:37-0500 Body temperature 98.06 [degF] [facility] 05-18-2023 09:37-0500 Diastolic blood pressure 68 mm[Hg] [facility] 05-18-2023 09:37-0500 Heart rate 57 /min [facility] 05-18-2023 09:37-0500 Mean blood pressure 88 mm[Hg] Francine Sarabia [facility] 05-18-2023 09:37-0500 Respiratory rate 16 /min [facility] 05-18-2023 09:37-0500 SaO2% (BldA) [Mass fraction] 99 % [facility] 05-18-2023 09:37-0500 Systolic blood pressure 128 mm[Hg] Francine Sarabia [facility] 05-16-2023 11:00-0500 Blood Pressure Location BETHANY CLOAK [facility] 05-16-2023 11:00-0500 Body temperature 98.42 [degF] BETHANY CLOAK [facility] 05-16-2023 11:00-0500 Diastolic blood pressure 39 mm[Hg] BETHANY CLOAK [facility] 05-16-2023 11:00-0500 Heart rate 56 /min BETHANY CLOAK [facility] 05-16-2023 11:00-0500 Mean blood pressure 58 mm[Hg] BETHANY CLOAK [facility] 05-16-2023 11:00-0500 Respiratory rate 16 /min BETHANY CLOAK [facility] 05-16-2023 11:00-0500 SaO2% (BldA) [Mass fraction] 97 % BETHANY CLOAK [facility] 05-16-2023 11:00-0500 Systolic blood pressure 97 mm[Hg] BETHANY CLOAK [facility] 05-15-2023 07:36-0500 Blood Pressure Location Felix Jolly [facility] 05-15-2023 07:36-0500 Diastolic blood pressure 44 mm[Hg] Felix Jolly [facility] 05-15-2023 07:36-0500 Heart rate 54 /min Felix Jolly [facility] 05-15-2023 07:36-0500 Respiratory rate 20 /min Felix Jolly [facility] 05-15-2023 07:36-0500 SaO2% (BldA) [Mass fraction] 100 % Felix Jolly [facility] 05-15-2023 07:36-0500 Systolic blood pressure 138 mm[Hg] Felix Jolly [facility] 05-08-2023 11:56-0500 Body temperature 97.2 [degF] Edison Pinto MD Work Phone: [facility] 05-08-2023 11:56-0500 Body weight 89.5 kg Edison Pinto MD Work Phone: [facility] 05-08-2023 11:56-0500 Diastolic blood pressure 53 mm[Hg] Edison Pinto MD Work Phone: [facility] 05-08-2023 11:56-0500 Heart rate 62 /min Edison Pinto MD Work Phone: [facility] 05-08-2023 11:56-0500 Respiratory rate 18 /min Edison Pinto MD Work Phone: [facility] 05-08-2023 11:56-0500 SaO2% (BldA) [Mass fraction] 98 % Edison Pinto MD Work Phone: [facility] 05-08-2023 11:56-0500 Systolic blood pressure 112 mm[Hg] Edison Pinto MD Work Phone: [facility] 05-05-2023 12:46-0500 Diastolic blood pressure 62 mm[Hg] Felix Jolly [facility] 05-05-2023 12:46-0500 Heart rate 62 /min Felix Jolly [facility] 05-05-2023 12:46-0500 SaO2% (BldA) [Mass fraction] 98 % Felix Jolly [facility] 05-05-2023 12:46-0500 Systolic blood pressure 138 mm[Hg] Felix Jolly [facility] 05-04-2023 11:24-0500 Body temperature 98.06 [degF] Francineeduardo Sarabia [facility] 05-04-2023 11:24-0500 Diastolic blood pressure 50 mm[Hg] [facility] 05-04-2023 11:24-0500 Heart rate 53 /min [facility] 05-04-2023 11:24-0500 Mean blood pressure 68 mm[Hg] [facility] 05-04-2023 11:24-0500 Respiratory rate 16 /min [facility] 05-04-2023 11:24-0500 SaO2% (BldA) [Mass fraction] 99 % Francineeduardo Sarabia [facility] 05-04-2023 11:24-0500 Systolic blood pressure 104 mm[Hg] [facility] 04-28-2023 11:01-0500 Body temperature 97.9 [degF] Shailesh Miranda MD Work Phone: [facility] 04-28-2023 11:01-0500 Diastolic blood pressure 56 mm[Hg] Shailesh Miranda MD Work Phone: [facility] 04-28-2023 11:01-0500 Heart rate 58 /min Shailesh Miranda MD Work Phone: [facility] 04-28-2023 11:01-0500 Respiratory rate 16 /min Shailesh Miranda MD Work Phone: [facility] 04-28-2023 11:01-0500 SaO2% (BldA) [Mass fraction] 97 % Shailesh Miranda MD Work Phone: [facility] 04-28-2023 11:01-0500 Systolic blood pressure 137 mm[Hg] Shailesh Miranda MD Work Phone: [facility] 04-23-2023 13:30-0500 Body height 157.5 cm Shailesh Miranda MD Work Phone: [employer] 04-23-2023 13:30-0500 Body mass index (BMI) [Ratio] 38.78 kg/m2 Shailesh Miranda MD Work Phone: [facility] [employer] 04-23-2023 13:30-0500 Body weight 96.2 kg Shailesh Miranda MD Work Phone: [employer] 04-18-2023 11:00-0500 Body height 157.48 cm Luc Vargas Other [facility] Other 04-18-2023 11:00-0500 Body mass index (BMI) [Ratio] 38.04 kg/m2 Luc Vargas Other [facility] Other 04-18-2023 11:00-0500 Body temperature 96.3 [degF] Luc Vargas Other [facility] Other 04-18-2023 11:00-0500 Body weight 94.35 kg Luc Vargas Other [facility] Other 04-18-2023 11:00-0500 Diastolic blood pressure 60 mm[Hg] Luc Vargas Other [facility] Other 04-18-2023 11:00-0500 SaO2% (BldA) [Mass fraction] 97 % Luc Vargas Other [facility] Other 04-18-2023 11:00-0500 Systolic blood pressure 128 mm[Hg] Luc Bergredrea Other [facility] Other 03-30-2023 09:02-0500 Diastolic blood pressure 73 mm[Hg] Radha DURBIN [facility] 03-30-2023 09:02-0500 Mean blood pressure 90 mm[Hg] Radha DURBIN [facility] 03-30-2023 09:02-0500 Systolic blood pressure 124 mm[Hg] Radhamadonna DURBIN [facility] 03-30-2023 08:52-0500 Blood Pressure Location Radhamadonna DURBIN [facility] 03-30-2023 08:52-0500 Diastolic blood pressure 71 mm[Hg] Radha DURBIN [facility] 03-30-2023 08:52-0500 Heart rate 58 /min Radha DURBIN [facility] 03-30-2023 08:52-0500 SaO2% (BldA) [Mass fraction] 98 % Radha DURBIN [facility] 03-30-2023 08:52-0500 Systolic blood pressure 147 mm[Hg] Radha DURBIN [facility] 03-17-2023 16:05-0500 Body temperature 97.5 [degF] MD Esau Riddle Work Phone: [facility] 03-17-2023 16:05-0500 Diastolic blood pressure 78 mm[Hg] MD Esau Riddle Work Phone: [facility] 03-17-2023 16:05-0500 Heart rate 63 /min MD Esau Riddle Work Phone: [facility] 03-17-2023 16:05-0500 Respiratory rate 16 /min MD Esau Riddle Work Phone: [facility] 03-17-2023 16:05-0500 SaO2% (BldA) [Mass fraction] 92 % MD Esau Riddle Work Phone: [facility] 03-17-2023 16:05-0500 Systolic blood pressure 186 mm[Hg] MD Esau Riddle Work Phone: [facility] 03-17-2023 09:00-0500 Body height 157.48 cm MD Esau Riddle Work Phone: [facility] 03-17-2023 08:00-0500 Inhaled oxygen flow rate 2 L/min MD Esau Riddle Work Phone: [facility] 03-17-2023 06:13-0500 Body weight 101.5 kg MD Esau Riddle Work Phone: [facility] 03-16-2023 12:34-0500 Body mass index (BMI) [Ratio] 40.2 kg/m2 MD Esau Riddle Work Phone: [facility] 03-01-2023 12:08-0500 Diastolic blood pressure 68 mm[Hg] MD Esau Riddle Work Phone: [facility] 03-01-2023 12:08-0500 Heart rate 69 /min MD Esau Riddle Work Phone: [facility] 03-01-2023 12:08-0500 Respiratory rate 20 /min MD Esau Riddle Work Phone: [facility] 03-01-2023 12:08-0500 SaO2% (BldA) [Mass fraction] 91 % MD Esau Riddle Work Phone: [facility] 03-01-2023 12:08-0500 Systolic blood pressure 160 mm[Hg] MD Esau Riddle Work Phone: [facility] 03-01-2023 07:03-0500 Body height 157.48 cm MD Esau Riddle Work Phone: [facility] 03-01-2023 07:03-0500 Body weight 99.79 kg MD Esau Riddle Work Phone: [facility] 02-14-2023 11:45-0500 Body height 157.48 cm Luc Vargas Other [facility] Other 02-14-2023 11:45-0500 Body mass index (BMI) [Ratio] 38.77 kg/m2 Luc Vargas Other [facility] Other 02-14-2023 11:45-0500 Body temperature 97.8 [degF] Luc Vargas Other [facility] Other 02-14-2023 11:45-0500 Body weight 96.16 kg Luc Vargas Other [facility] Other 02-14-2023 11:45-0500 Diastolic blood pressure 68 mm[Hg] Luc Vargas Other [facility] Other 02-14-2023 11:45-0500 SaO2% (BldA) [Mass fraction] 97 % Luc Vargas Other [facility] Other 02-14-2023 11:45-0500 Systolic blood pressure 136 mm[Hg] Luc Vargas Other [facility] Other 01-13-2023 16:15-0400 Diastolic blood pressure 91 mm[Hg] Alejandro Gongora [facility] 01-13-2023 16:15-0400 Heart rate 63 /min Alejandro Gongora [facility] 01-13-2023 16:15-0400 Respiratory rate 18 /min Alejandro Gongora [facility] 01-13-2023 16:15-0400 SaO2% (BldA) [Mass fraction] 98 % Alejandro Currane [facility] 01-13-2023 16:15-0400 Systolic blood pressure 144 mm[Hg] Alejandro Currane [facility] 01-13-2023 13:26-0400 Body temperature 97.52 [degF] Alejandro Currane [facility] 01-13-2023 13:26-0400 Diastolic blood pressure 55 mm[Hg] Alejandro Currane [facility] 01-13-2023 13:26-0400 Heart rate 62 /min Alejandro Currane [facility] 01-13-2023 13:26-0400 Respiratory rate 18 /min Alejandro Currane [facility] 01-13-2023 13:26-0400 SaO2% (BldA) [Mass fraction] 97 % Alejandro Currane [facility] 01-13-2023 13:26-0400 Systolic blood pressure 122 mm[Hg] Alejandro Currane [facility] 06-27-2022 11:30-0400 Body height 157.48 cm Luc Sam Other [facility] Other 06-27-2022 11:30-0400 Body mass index (BMI) [Ratio] 39.87 kg/m2 Luc Vargas Other [facility] Other 06-27-2022 11:30-0400 Body temperature 96.8 [degF] Luc Vargas Other [facility] Other 06-27-2022 11:30-0400 Body weight 98.88 kg Luc Vargas Other [facility] Other 06-27-2022 11:30-0400 Diastolic blood pressure 48 mm[Hg] Luc Buehrer Other [facility] Other 06-27-2022 11:30-0400 SaO2% (BldA) [Mass fraction] 93 % Luc Buehrer Other [facility] Other 06-27-2022 11:30-0400 Systolic blood pressure 220 mm[Hg] Luc Buehrer Other [facility] Other 10-26-2021 13:50-0400 Body height 157.48 cm Luc Bergrer Other [facility] Other 10-26-2021 13:50-0400 Body mass index (BMI) [Ratio] 40.23 kg/m2 Luc Buehrer Other [facility] Other 10-26-2021 13:50-0400 Body temperature 96.3 [degF] Luc Bergrer Other [facility] Other 10-26-2021 13:50-0400 Body weight 99.79 kg Luc Marquezehrer Other [facility] Other 10-26-2021 13:50-0400 Diastolic blood pressure 60 mm[Hg] Luc Buehrer Other [facility] Other 10-26-2021 13:50-0400 SaO2% (BldA) [Mass fraction] 96 % Luc Buehrer Other [facility] Other 10-26-2021 13:50-0400 Systolic blood pressure 160 mm[Hg] Luc Sam Other [facility] Other Encounters Encounter Date Encounter Type Care Provider Facility Start: 05-23-2023 End: 05-24-2023 ambulatory Reid SHIPLEY Facility:[facility] Start: 05-23-2023 End: 05-23-2023 Patient encounter procedure Reid SHIPLEY General Surgery Nill/Said Quintin Start: 05-19-2023 End: 05-19-2023 Office consultation new/estab patient 60 min Donnie Tamiko [facility] BRAIDING OPERATOR-CLINICAL SCIENTIST Work Phone: [facility] Comment on above: Lung nodule (Primary Dx) Start: 05-19-2023 End: 05-20-2023 ambulatory [facility] Start: 05-19-2023 ambulatory XXXX NONE Facility:[facility] Start: 05-18-2023 Evaluation and management of inpatient [facility] Start: 05-18-2023 End: 05-19-2023 ambulatory Francine Sarabia Facility[facility] Start: 05-18-2023 End: 05-18-2023 Patient encounter procedure Francine Fieldsrejidarío [facility] Start: 05-16-2023 End: 05-17-2023 ambulatory BETHANY BAKER Facility:[facility] Start: 05-16-2023 End: 05-16-2023 Patient encounter procedure BETHANY BAKER [facility] Start: 05-15-2023 End: 05-15-2023 ambulatory Felix Jolly Facility:[facility] Start: 05-15-2023 End: 05-15-2023 Admission to same day surgery center Felix Jolly [facility] Start: 05-12-2023 ambulatory XXXX NONE [facility] Start: 05-10-2023 ambulatory Francine Sarabia Facil ity:[facility] Start: 05-08-2023 End: 05-09-2023 ambulatory ESAU RIDD[facility] Start: 05-08-2023 End: 05-09-2023 ambulatory EDISON PIN[facility] Start: 05-08-2023 End: 05-08-2023 Office outpatient new 45 minutes Edison Pinto MD Work Phone: [facility] Comment on above: 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); Malignant neoplasm of head of pancreas (CMS/HCC) Start: 05-08-2023 ambulatory Mhd Jabier Ortega Fa cility:[facility] Start: 05-05-2023 End: 05-06-2023 ambulatory XXXX NONE Facility:[facility] Start: 05-05-2023 End: 05-05-2023 Patient encounter procedure Felix Jolly [facility] Start: 05-05-2023 End: 05-06-2023 ambulatory Felix Jolly Facility:[facility] Start: 05-04-2023 End: 05-05-2023 ambulatory Francine Sarabia Facility:[facility] Start: 05-04-2023 End: 05-05-2023 ambulatory MD Esau Riddle Facility:[facility] Start: 05-04-2023 End: 05-04-2023 Patient encounter procedure Felix Jolly [facility] Start: 05-04-2023 End: 05-04-2023 Patient encounter procedure Francine Sarabia [facility] Start: 05-02-2023 End: 05-03-2023 ambulatory MD Esau Riddle Facility:[facility] [place] Start: 05-01-2023 ambulatory MD Esau Riddle Facil ity:[id number] Start: 04-25-2023 End: 04-26-2023 ambulatory MD Esau Riddle Facility:[facility] [place] Start: 04-23-2023 End: 04-28-2023 Evaluation and management of inpatient LUC TONY [facility] Start: 04-23-2023 End: 04-28-2023 Evaluation and management of inpatient Shailesh Miranda MD Work Phone: [facility] Comment on above: Obstructive jaundice ; Pancreatic mass Start: 04-18-2023 Postop follow up vis it related to original px Luc Jimmycarlosmelissa [facility] Vascular Surgery Start: 04-18-2023 End: 04-18-2023 ambulatory COLE D DOLCE [facility] Other Start: 04-11-2023 End: 04-11-2023 ambulatory COLE D DOLCE Not Available Start: 04-10-2023 End: 04-11-2023 ambulatory MD [facility] Start: 04-04-2023 End: 04-04-2023 ambulatory COLE D DOLCE Not Available Start: 03-31-2023 End: 04-01-2023 ambulatory Cole D Dolce Facility:[facility] Start: 03-31-2023 End: 03-31-2023 Lab Drop off Cole D Dolce [facility] Start: 03-30-2023 End: 03-31-2023 ambulatory CLINICAL SCIENTIST Radha DURBIN Facility:[facility] Start: 03-30-2023 End: 03-30-2023 Patient encounter procedure Radha DURBIN [facility] Start: 03-24-2023 End: 03-25-2023 ambulatory [facility] Start: 03-22-2023 End: 03-23-2023 ambulatory MD Esau Riddle Facility:[facility] [place] Start: 03-22-2023 End: 03-22-2023 ambulatory COLE D DOLCE Not Available Start: 03-21-2023 End: 03-22-2023 ambulatory MD [facility]iddle [facility] Start: 03-16-2023 End: 03-17-2023 Evaluation and management of inpatient Luc Sam Facility:[facility] Start: 03-16-2023 End: 03-17-2023 Evaluation and management of inpatient MD Esau Riddle Work Phone: [facility] Work Phone: Start: 03-01-2023 End: 03-01-2023 ambulatory Luc Marquezcarlosgisselledrea Facility:[facility] Start: 03-01-2023 End: 03-01-2023 Admission to same day surgery center MD Esau Riddle Work Phone: [facility]-Interventional Radiology Work Phone: Start: 03-01-2023 End: 03-01-2023 ambulatory MD Esau Riddle Work Phone: [facility] Work Phone: Start: 02-17-2023 End: 02-17-2023 ambulatory COLE MINAYA Not Available Start: 02-14-2023 End: 02-14-2023 ambulatory Luc Josedrea Other [facility] [employer] Other Start: 02-14-2023 Office outpatient visit 25 minutes Luc Vargas [facility] Vascular Surgery Start: 01-31-2023 End: 02-01-2023 ambulatory Cole Minaya Facility:[facility] Start: 01-31-2023 End: 01-31-2023 Patient encounter procedure Cole Minaya [facility] Start: 01-24-2023 End: 01-25-2023 ambulatory Cole Minaya Facility:[facility] Start: 01-24-2023 End: 01-24-2023 Lab Drop off Cole Minaya [facility] Start: 01-19-2023 ambulatory MD Esau Riddle Facil ity:[facility] Start: 01-17-2023 End: 01-18-2023 ambulatory MD Esau Riddle Facility:[facility] Quintin Start: 01-16-2023 ambulatory MD Esau Riddle [facility] ity:[facility] Start: 01-13-2023 End: 01-13-2023 Emergency department patient visit Alejandro Gongora Facility:[facility] Start: 01-13-2023 End: 01-14-2023 ambulatory MD Esau Riddle Facility: [facility] [place] Start: 01-13-2023 End: 01-13-2023 Emergency department patient visit Alejandro Gongora [facility] Start: 01-02-2023 End: 01-03-2023 ambulatory MD Esau Riddle Facility:[facility] [place] Start: 01-02-2023 End: 01-02-2023 ambulatory MD Yuni Mast Work Phone: [facility] Work Phone: Start: 01-02-2023 End: 01-02-2023 Patient encounter procedure MD Yuni Mast Work Phone: [facility]-Ultrasound [facility] Start: 12-08-2022 End: 12-09-2022 ambulatory Felix Jolly Facility:[facility] Start: 11-16-2022 End: 11-17-2022 ambulatory MD Esau Riddle Facility:[facility] [place] Start: 08-17-2022 End: 08-18-2022 ambulatory MD Esau Riddle Facility: [facility] [place] Start: 07-20-2022 End: 07-21-2022 ambulatory MD Esau Riddle Facility:[facility] [place] Start: 06-27-2022 Office outpatient visit 25 minutes Luc Vargas [facility] Vascular Surgery Start: 06-27-2022 End: 06-27-2022 ambulatory MD Yuni Mast Work Phone: [facility] Work Phone: Start: 06-27-2022 End: 06-27-2022 Patient encounter procedure MD Yuni Mast Work Phone: [facility]-Ultrasound [facility] Start: 06-25-2022 End: 06-26-[address] YUNI MAST . Facility:[facility] Start: 06-22-2022 End: 06-23-2022 ambulatory YUNI MAST Facility:[facility] Start: 06-15-2022 ambulatory XXXX NONE Facility:[facility] Start: 01-17-[address] YUNI MAST . Facil ity:[facility] Start: 11-26-2021 End: 11-27-[address] YUNI MAST . Facility:[facility] Start: 11-17-2021 End: 11-18-2021 Evaluation and management of inpatient DR AMY MADDEN Facility:[facility] Start: 11-03-2021 End: 11-04-[address] YUNI MAST . Facility:[facility] Start: 10-26-2021 End: 10-26-2021 ambulatory Luc Vargas Other [facility] Other Start: 10-26-2021 Office outpatient visit 25 minutes Luc Vargas [facility] Start: 08-18-2021 End: 08-19-[address] UYNI MAST . Facility:[facility] Start: 08-16-2021 End: 08-17-[address] YUNI MAST . Facility:[facility] Start: 08-02-2021 End: 08-03-[address] YUNI MAST . Facility:[facility] Start: 08-07-2020 End: 08-08-2020 ambulatory CHARMAINE SETH Facility:[facility] Procedures Date Procedure Procedure Detail Performing Clinician Start: 05-15-2023 Cardiac catheterization Francine cruz Comment on above: 08/21 Start: 05-15-2023 Catheterization of left heart Felix glez Start: 05-08-2023 CANCER ANTIGEN 19-9 winter Start: 05-08-2023 CBC panel - Blood by Automated count EDISON WINTER Start: 05-08-2023 COAGULATION SCREEN EDISON WINTER Start: 05-08-2023 Comprehensive metabolic 2000 panel - Serum or Plasma EDISON WINTER Start: 05-08-2023 Hemoglobin A1c/Hemoglobin.total in Blood EDISON WINTER Start: 05-08-2023 CASE REQUEST OPERATING ROOM EDISON Pinto Start: 04-28-2023 Glucose blood reagent strip Luc P Bl ood DO Work Phone: Start: 04-28-2023 Antibody screen Shailesh Miranda MD Work Phone: Start: 04-28-2023 Glucose blood reagent strip Luc P Bl ood DO Work Phone: Start: 04-28-2023 Comprehensive metabolic panel Luc P Blood DO Work Phone: Start: 04-28-2023 Blood count hemoglobin Teodoro WEINSTEIN RN - [employer] Work Phone: Start: 04-27-2023 End: 04-27-2023 Blood count hemoglobin Teodoro WEINSTEIN RN - [employer] Work Phone: Start: 04-27-2023 Glucose blood reagent strip Luc P Bl ood DO Work Phone: Start: 04-27-2023 Blood count complete auto&auto difrntl wbc Teodoro Farley BRAIDING OPERATOR - [employer] Work Phone: Start: 04-27-2023 Glucose blood reagent strip Luc P Bl ood DO Work Phone: Start: 04-27-2023 Us vasc access sits vsl patency ndl entry Teodoro Farley BRAIDING OPERATOR - [employer] Work Phone: Start: 04-27-2023 Assay of lipase Teodoro Farley BRAIDING OPERATOR - [employer] Work Phone: Start: 04-27-2023 BASIC METABOLIC PANEL W/ REFLEX TO MG FOR LOW K Teodoro Farley BRAIDING OPERATOR - [employer] Work Phone: Start: 04-27-2023 Hepatic function panel Teodoro WEINSTEIN RN - [employer] Work Phone: Start: 04-27-2023 End: 04-27-2023 Transfusion of packed red blood cells Willow Garduno BRAIDING OPERATOR - CLINICAL SCIENTIST Work Phone: Start: 04-26-2023 Blood count hemoglobin Teodoro WEINSTEIN RN - [employer] Work Phone: Start: 04-26-2023 Assay of ferritin Karin Cronin MD Work Phone: Start: 04-26-2023 Immunoassay tumor antigen quantitative ca 19-9 Karin Cronin MD Work Phone: Start: 04-26-2023 VITAMIN B12 & FOLATE Karin Cronin MD Work Phone: Start: 04-26-2023 Blood count reticulocyte automated Teodoro Farley BRAIDING OPERATOR - [employer] Work Phone: Start: 04-26-2023 Glucose blood reagent strip Luc P Bl ood DO Work Phone: Start: 04-26-2023 End: 04-26-2023 Transfusion of packed red blood cells Teodoro Cary Chin BRAIDING OPERATOR - [employer] Work Phone: Start: 04-26-2023 Glucose blood reagent strip Luc P Bl ood DO Work Phone: Start: 04-26-2023 Creatine kinase total Teodoro Cary Chin APR N - [employer] Work Phone: Start: 04-26-2023 TROP/MYOGLOBIN Teodoro Farley BRAIDING OPERATOR - [employer] Work Phone: Start: 04-26-2023 Blood typing serologic abo Teodoro Cary Piper t BRAIDING OPERATOR - [employer] Work Phone: Start: 04-26-2023 End: 04-26-2023 Assay of lipase Teodoro Farley BRAIDING OPERATOR - [employer] Work Phone: Start: 04-26-2023 SURGICAL PATHOLOGY REPORT Shailesh Miranda MD Work Phone: Start: 04-25-2023 End: 04-25-2023 Glucose blood reagent strip Luc P Bl ood DO Work Phone: Start: 04-25-2023 Fluoroscopy during operation Satinder Yao MD Work Phone: Start: 04-25-2023 Cytp flu washgs/brushings xcpt c/v smrs interpj Satinder Yao MD Work Phone: Start: 04-25-2023 SURGICAL PATHOLOGY REPORT Satinder marcos MD Work Phone: Start: 04-25-2023 End: 04-25-2023 EGD W/EUS FNA Satinder Yao MD Work Phone: Start: 04-25-2023 End: 04-25-2023 ERCP STENT INSERTION Satinder Thrasher i, MD Work Phone: Start: 04-24-2023 Ct thorax w/contrast material Teodoro lowe BRAIDING OPERATOR - [employer] Work Phone: Start: 04-24-2023 Glucose blood reagent strip Shailesh Ballard i, MD Work Phone: Start: 04-24-2023 Glucose blood reagent strip Shailesh Ballard i, MD Work Phone: Start: 04-24-2023 Mri abdomen w/o & w/contrast material Teodoro Farley BRAIDING OPERATOR - [employer] Work Phone: Start: 04-24-2023 Glucose blood reagent strip Shailesh Ballard i, MD Work Phone: Start: 04-24-2023 Us abdominal real time w/image limited Teodoro Farley BRAIDING OPERATOR - [employer] Work Phone: Start: 04-24-2023 Assay of lipase Teodoro Farley BRAIDING OPERATOR - [employer] Work Phone: Start: 04-23-2023 Procalcitonin (pct) Teodoro Farley BRAIDING OPERATOR - [employer] Work Phone: Start: 04-23-2023 Assay of urea nitrogen quantitative Teodoro Farley BRAIDING OPERATOR - [employer] Work Phone: Start: 03-16-2023 Antibody screen Luc Vargas Comment on above: Order Comment: NO TIME OF DRAW ON TUBE. 2 SETS OF INITIALS 'CL' ON TUBE. SHIRLEY/RN WHO LANCE PATIENT SAID SHE LANCE SAMPLE AT 1035. P Result Comment: PERF ORMED BY: [facility] [address] [place] [address] PATHOLOGIST LOADING INSPECTOR KOREY FRANKS M.D. Start: 03-16-2023 Femoral endarterectomy MD Esau Riddle Work Phone: Start: 03-01-2023 Lower limb angiography MD Esau Riddle Work Phone: Start: 06-27-2022 Doppler ultrasonography of bilateral carotid arteries MD Yuni Mast Work Phone: Amputation of left great toe Reid SHIPLEY Cardiac catheterization Alejandro Gongora Comment on above: 08/21 Esophagogastroduodenoscopy Marta ortiz VIOLETTA Fluoroscopy guided i nsertion of stent into bile duct Reid SHIPLEY Kidney biopsy Reid SHIPLEY Surgery (qualifier value) Am madonna DURBIN Plan of Treatment Date Care Activity Detail Author Start: 07-21-2026 DTaP/Tdap/Td vaccine (2 - Td or Tdap) DTaP/Tdap/Td vaccine (2 - Td or Tdap) [facility] Start: 07-21-2026 DTaP/Tdap/Td Vaccine s (2 - Td or Tdap) DTaP/Tdap/Td Vaccines (2 - Td or Tdap) [facility] Start: 05-08-2024 Creatinine measurement Creatinine Le sam [facility] Start: 05-08-2024 Diabetes mellitus screening Diabetes Screening [facility] Start: 05-08-2024 Potassium measurement Potassium Leve l [facility] Start: 04-28-2024 GFR test (Diabetes, CKD 3-4, OR last GFR 15-59) GFR test (Diabetes, CKD 3-4, OR last GFR 15-59) [facility] Start: 07-03-2023 End: 07-03-2023 Patient encounter procedure 07/03/2023 10:00 AM EDT Office Visit [address] [place] [address] [place] [address] [place] Department of Surgery-[place] [address] [facility] Start: 06-06-2023 ambulatory Ambulatory Facility:Zoie Ribeiro Start: 05-26-2023 End: 05-26-2023 Patient encounter procedure [facility] Start: 05-08-2023 End: 05-08-2024 Cancer Ag 19-9 [Units/volume] in Serum or Plasma [facility] Service Area Work Phone: Comment on above: Expected: 05/08/2023 (Approximate), Expires: 05/08/2024 Start: 05-08-2023 End: 05-08-2024 CBC panel - Blood by Automated count [facility] Work Phone: Comment on above: Expected: 05/08/2023 (Approximate), Expires: 05/08/2024 Start: 05-08-2023 End: 05-08-2024 Comprehensive metabolic 2000 panel - Serum or Plasma [facility] Work Phone: Comment on above: Expected: 05/08/2023 (Approximate), Expires: 05/08/2024 Start: 05-08-2023 End: 05-08-2024 EKG 12 lead EKG 12 lead ECG Routine Neoplasm of uncertain behavior of pancreas Expected: 05/08/2023 (Approximate), Expires: 05/08/[address] [facility] Work Phone: Comment on above: Expected: 05/08/2023 (Approximate), Expires: 05/08/2024 Start: 05-08-2023 End: 05-08-2024 Hemoglobin A1c/Hemoglobin.total in Blood [facility] Work Phone: Comment on above: Expected: 05/08/2023 (Approximate), Expires: 05/08/2024 Start: 05-08-2023 End: 07-07-2023 PT and aPTT panel - Platelet poor plasma by Coagulation assay [facility] Work Phone: Comment on above: Expected: 05/08/2023 (Approximate), Expires: 07/07/2023 Start: 05-08-2023 End: 05-08-2024 Request for Pre-Admission Testing Visit Request for Pre-Admission Testing Visit Procedures Routine Neoplasm of uncertain behavior of pancreas Expected: 05/08/2023 (Approximate), Expires: 05/08/[address] [facility] Work Phone: Comment on above: Expected: 05/08/2023 (Approximate), Expires: 05/08/2024 Start: 03-17-2023 [facility] Start: 03-17-2023 [facility] Start: 03-16-2023 Referral to clinical sand technician [facility] Start: 03-16-[address] [facility] Start: 03-01-2023 [facility] Start: 2018 Respiratory Syncytia l Virus (RSV) or age 60 yrs+ (1 - 1-dose 60+ series) Respiratory Syncytial Virus (RSV) or age 60 yrs+ (1 - 1-dose 60+ series) [facility] Start: 2008 Screening for malign ant neoplasm of breast Breast cancer screen [facility] Start: 2008 Screening for malign ant neoplasm of lung Lung Cancer Screening [facility] Start: 2008 Shingles vaccine (1 of 2) Kimbrough gles vaccine (1 of 2) [facility] Start: 2008 Zoster Vaccines (1 of 2) Zoste r Vaccines (1 of 2) [facility] Start: 08-31-2003 Screening for malign ant neoplasm of colon [facility] Start: 1998 Screening for malign ant neoplasm of breast Mammogram [facility] Start: 1988 Screening for malign ant neoplasm of cervix [facility] Start: 08-31-1979 Screening for malign ant neoplasm of cervix [facility] Start: 1976 Diabetes mellitus screening Diabetes Screening [facility] Start: 1976 Glaucoma screening Diabetic retinal exam [facility] Start: 1976 Hepatitis C screening B [facility] [employer] Start: 1976 Urine screening for protein Diabetic Alb to Cr ratio (uACR) test [facility] Start: 1973 HIV screening HIV screen [facility] Start: 1970 Depression Screen Depression Screen [facility] Start: 1968 Diabetic foot examination Diabetic f oot exam [facility] Start: 1968 Hemoglobin A1c measurement A1C test (Diabetic or Prediabetic) [facility] Start: 1968 Lipid panel Lipids [facility] Start: 1964 Pneumococcal 0-64 ye ars Vaccine (1 - PCV) Pneumococcal 0-64 years Vaccine (1 - PCV) [facility] Start: 1964 Pneumococcal Vaccine : 65+ Years (1 - PCV) Pneumococcal Vaccine: 65+ Years (1 - PCV) [facility] Start: 1964 Pneumococcal Vaccine : Pediatrics (0 to 5 Years) and At-Risk Patients (6 to 64 Years) (1 - PCV) Pneumococcal Vaccine: Pediatrics (0 to 5 Years) and At-Risk Patients (6 to 64 Years) (1 - PCV) [facility] Start: 08-31-1959 MMR Vaccines (1 of 1 - Standard series) MMR Vaccines (1 of 1 - Standard series) [facility] Start: 03-02-1959 COVID-19 Vaccine (#1) COVID-19 Vacci ne (#1) [facility] Start: 1958 Creatinine measurement Creatinine Le sam [facility] Start: 1958 Echocardiography Echocardiogram [facility] Start: 1958 HIV screening HIV Screening [facility] Start: 1958 Lipid panel Lipid Panel [facility] Start: 1958 Potassium measurement Potassium Leve l [facility] Start: 1958 Screening for malign ant neoplasm of colon [facility] Start: 1958 Yearly Adult Physical Yearly Adult P hysical [facility] Glucose [Mass/volume ] in Serum or Plasma POCT Glucose Point of Care Testing STAT As Needed until discontinued starting 04/24/2023 [facility] Comment on above: As Needed until disc ontinued starting 04/24/2023 End: 04-26-2023 Glucose [Mass/volume] in Serum or Plasma [employer] Comment on above: Every 30 Min for 2 O ccurrences starting 04/26/2023 until 04/26/2023 Every Hour (Lab POC) for 2 Occurrences starting 04/26/2023 until 04/26/2023 As Needed until disc ontinued starting 04/26/2023 End: 04-27-2023 Glucose [Mass/volume] in Serum or Plasma POCT Glucose Point of Care Testing Routine 4X Daily (AC & HS) for 24 Hours starting 04/26/2023 until 04/27/2023 [employer] Comment on above: 4X Daily (AC & HS) f or 24 Hours starting 04/26/2023 until 04/27/2023 End: 05-10-2023 Hemoglobin and Hematocrit Hemoglobin and Hematocrit Lab Routine Post Transfusion Post Transfusion Post Transfustion until discontinued starting 04/26/2023 [employer] Comment on above: Post Transfusion Pos t Transfusion Post Transfustion until discontinued starting 04/26/2023 End: 04-29-2023 Hemoglobin and Hematocrit Hemoglobin and Hematocrit Lab Routine Every 6 Hours (Lab) for 3 Days starting 04/26/2023 until 04/29/2023, 5 completed [employer] Comment on above: Every 6 Hours (Lab) for 3 Days starting 04/26/2023 until 04/29/2023, 5 completed End: 05-11-2023 Hemoglobin and Hematocrit Hemoglobin and Hematocrit Lab Routine Post Transfusion Post Transfusion Post Transfustion until discontinued starting 04/27/2023 [employer] Comment on above: Post Transfusion Pos t Transfusion Post Transfustion until discontinued starting 04/27/2023 Intermittent pulse oximetry Pulse Oximetry Spot Check Respiratory Care Routine As Needed until discontinued starting 04/23/2023 [employer] Comment on above: As Needed until disc ontinued starting 04/23/2023 Oxygen therapy [[facility]] Initiate Oxygen Therapy Protocol Respiratory Care Routine As Needed until discontinued starting 04/23/2023 [employer] Work Phone: Comment on above: As Needed until disc ontinued starting 04/23/2023 Pancreatectomy total Pancreatect rakan Malignant neoplasm of head of pancreas (CMS/HCC) [facility] Work Phone: Patient Education Arteriogram (DC) [facility] Work Phone: Patient referral [facility] Work Phone: End: 04-26-2023 PREPARE RBC (CROSSMATCH), 1 Units [employer] Comment on above: Once for 1 Occurrenc es starting 04/26/2023 until 04/26/2023 End: 04-27-2023 PREPARE RBC (CROSSMATCH), 1 Units PREPARE RBC (CROSSMATCH), 1 Units Blood Bank Routine Once for 1 Occurrences starting 04/27/2023 until 04/27/2023 [employer] Work Phone: Comment on above: Once for 1 Occurrenc es starting 04/27/2023 until 04/27/2023 End: 04-26-2023 SPECIMEN REJECTION [employer] Comment on above: Once for 1 Occurrenc es starting 04/26/2023 until 04/26/2023 End: 04-27-2023 SPECIMEN REJECTION [facility] Comment on above: Once for 1 Occurrenc es starting 04/27/2023 until 04/27/2023 Surgical Pathology Surgical Path ology Lab Routine Obstructive jaundice Pancreatic mass Release Upon Ordering for 1 Occurrences starting 04/25/2023 [employer] Comment on above: Release Upon Orderin g for 1 Occurrences starting 04/25/2023 End: 04-25-2023 SURGICAL PATHOLOGY REPORT SURGICAL PATHOLOGY REPORT Lab Routine Once for 1 Occurrences starting 04/25/2023 until 04/25/2023 [employer] Comment on above: Once for 1 Occurrenc es starting 04/25/2023 until 04/25/2023 [facility] Immunizations Immunization Date Immunization Notes Care Provider Fa che 01-17-2023 influenza, injectabl e, quadrivalent, preservative free Cole Minaya [facility] 01-16-2020 influenza virus vaccine, unspecified formulation [facility] influenza virus vaccine, unspecified formulation [facility] 02-19-2018 influenza virus vaccine, unspecified formulation [facility] 02-03-2017 influenza virus vaccine, unspecified formulation Alejandro Gongora [facility] 07-21-2016 tetanus toxoid, reduced diphtheria toxoid, and acellular pertussis vaccine, adsorbed Alejandro Gongora [facility] [place] 01-17-2016 influenza virus vaccine, unspecified formulation Alejandro Gongora [facility] NEGATED: Highlighted row has not occurred!01-02-2023 influenza virus vaccine, unspecified formulation Alejandro Gongora [facility] NEGATED: Highlighted row has not occurred!07-20-2022 SARS-CoV-2 mRNA (tozinameran 5y-11y) vaccine Alejandro Gongora [facility] NEGATED: Highlighted row has not occurred!06-22-2022 influenza virus vaccine, unspecified formulation [facility] NEGATED: Highlighted row has not occurred!06-22-2022 SARS-CoV-2 mRNA (tozinameran 5y-11y) vaccine Alejandro Gongora [facility] Payers Date Payer Category Payer Unknown [facility] [id number] 2022-Present Mariana Giron [address] [place] [address] [id number] 2022 Self-pay [id number] 1959 Unknown [id number] 1958 Unknown [id number] 2.16.840.1.299259.3.579.2.647 1958 Unknown [id number] 2.16.840.1.805917.3.579.2.593 1958 Unknown [id number] 2.16.840.1.755532.3.579.2.593 1958 Unknown [id number] 2.16.840.1.040559.3.579.2.593 1958 Unknown [id number] 2.16.840.1.393949.3.579.2.59 1958 Unknown [id number] 2.16.840.1.166475.3.579.2.593 1958 Unknown [id number] 2.16.840.1.564285.3.579.2.593 1958 Unknown [id number] 2.16.840.1.725715.3.579.2.593 1958 Unknown [id number] 2.16.840.1.320764.3.579.2.593 1958 Unknown [id number] 2.16.840.1.421294.3.579.2.593 1958 Unknown [id number] 2.16.840.1.830859.3.579.2.1259 1958 Unknown [id number] 2.16.840.1.516620.3.579.2.125 1958 Unknown [id number] 2.16.840.1.418475.3.579.2.125 1958 Unknown [id number] 2.16.840.1.733039.3.579.2.125 1958 Unknown [id number] 2.16.840.1.265206.3.579.2.125 1958 Unknown [id number] 2.16.840.1.421912.3.579.2.1245 1958 Unknown [id number] 2.16.840.1.237804.3.579.2.124 1958 Unknown [id number] 2.16.840.1.901615.3.579.2.124 1958 Unknown [id number] 2.16.840.1.087676.3.579.2.177 1958 Unknown [id number] 2.16.840.1.587637.3.579.2.1244 1958 Unknown [id number] 2.16.840.1.771081.3.579.2. 1958 Unknown [id number] 2.16.840.1.347656.3.579.2. 1958 Unknown [id number] 2.16.840.1.035868.3.579.2. 1958 Unknown [id number] 2.16.840.1.429725.3.579.2.72 1958 Unknown [id number] 2.16.840.1.417074.3.579.2.72 1958 Unknown [id number] 2.16.840.1.513349.3.579.2.72 1958 Unknown [id number] 2.16.840.1.248277.3.579.2. 1958 Unknown [id number] 2.16.840.1.501351.3.579.2.72 1958 Unknown [id number] 2.16.840.1.654993.3.579.2.72 1958 Unknown [id number] 2.16.840.1.050251.3.579.2.72 1958 Unknown [id number] 2.16.840.1.774789.3.579.2.729 Unknown [id number] 2.16.840.1.940804.3.579.2. 1958 Unknown [id number] 2.16.840.1.939205.3.579.2 1958 Unknown [id number] 2.16.840.1.252407.3.579.2 1958 Unknown [id number] 2.16.840.1.321637.3.579.2 1958 Unknown [id number] 2.16.840.1.619351.3.579.2 1958 Unknown [id number] 2.16.840.1.444043.3.579.2 1958 Unknown [id number] 2.16.840.1.458757.3.579. 1958 Unknown [id number] 2.16.840.1.855060.3.579.2 1958 Unknown [id number] 2.16.840.1.725412.3.579.2 1958 Unknown [id number] 2.16.840.1.136441.3.579.2 1958 Unknown [id number] 2.16.840.1.500743.3.579.2 1958 Unknown [id number] 2.16.840.1.013509.3.579.2 1958 Unknown [id number] 2.16.840.1.335041.3.579.2 1958 Unknown [id number] 2.16.840.1.781960.3.579.2 1958 Unknown [id number] 2.16.840.1.731649.3.579.2 1958 Unknown [id number] 2.16.840.1.550108.3.579.2.727 1958 Unknown [id number] 2.16.840.1.649123.3.579.2.727 1958 Unknown [id number] 2.16.840.1.911665.3.579.2.727 1958 Unknown [id number] 2.16.840.1.566703.3.579.2.727 1958 Unknown [id number] 2.16.840.1.983627.3.579.2.727 1958 Unknown [id number] 2.16.840.1.114393.3.579.2.72 Unknown [id number] 2.16.840.1.708946.3.579.2.531 Unknown [id number] 2.16.840.1.509043.3.579.2.531 Unknown [id number] 2.16.840.1.908245.3.579.2.531 Social History Date Type Detail Facility Start: 04-23-2023 End: 05-19-2023 Sex Assigned At [facility] Start: 1960 Sex Assigned At Female F [facility] Start: 01-13-2023 End: 03-30-2023 Tobacco smoking status Heavy tobacco smoker (finding) [facility] Tobacco smoking status Never [facility] Start: 03-16-2023 Tobacco smoking status NHIS Smoker (finding) [facility] Start: 04-03-1972 End: 05-19-2023 Tobacco smoking status WAIS Smokes tobacco daily [facility] Start: 04-03-1972 History of tobacco use Cigarette Smoker [facility] Start: 04-23-2023 End: 05-19-2023 Tobacco use and exposure Smokeless tobacco non-user [facility] Start: 04-26-2023 End: 05-19-2023 Alcohol intake Ex-drinker (finding) [facility] Start: 04-23-2023 End: 05-19-2023 History of Social function [employer] Has the electric, gas, oil, or water company threatened to shut off services in your home in past 12Mo No [employer] (I/We) worried whether (my/our) food would run out before (I/we) got money to buy more. Never true [facility] Start: 1960 Sex Assigned At Not on file [facility] Start: 05-04-2023 End: 05-23-2023 Tobacco smoking status Light tobacco smoker (finding) [facility] Start: 05-08-2023 Tobacco smoking status NHIS Occasional tobacco smoker [facility] Start: 05-08-2023 Alcohol intake Lifetime non-d earle (finding) [facility] Work Phone: Start: 04-28-2023 End: 05-08-2023 Exposure to SARS-CoV-2 (event) Not sure [facility] Start: 05-19-2023 Tobacco Comment Currently smok es 3 a day [facility] Work Phone: NEGATED: Highlighted rowStart: NINF History of tobacco use Passive smoker [facility] Work Phone: Medical Equipment Procedure Code Equipment [...] L60mm Dia8mm Cath 8.5fr L194cm Gwire 0.035in [facility] - [id number] Start: 04-25-2023 sure comfort pen needle [...] /State Functional Status Date Assessment Result Facility 05-23-2023 [facility] N[facility] Functional Status N/A [facility] 05-05-2023 Functional Status N/A [facility] 03-30-2023 Functional Status No [facility] 03-17-2023 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 [facility] Work Phone: 01-13-2023 Functional Status N/A [facility] Mental Status Date Assessment Result Facility 03-17-2023 Cognitive function Cognitive Sta tus Patient at [facility] Work Phone: Clinical Notes 10-26-2021 to 05-23-2023 Edison Pinto MD - 05/08/2023 12:00 PM Amy Mancia - 04/28/2023 12:03 PM Erica Ramon OT - 04/27/2023 1:58 PM Beth Whitman PT - 04/27/2023 1:41 PM EST Note Date & Type Note Facility 05-23-2023 Note Chief Complaint consultation for port placement HPI Staff 62 year old female presents on consultation from Dr. Sarabia for port placement. Patient with pancreatic carcinoma. She has been holding Plavix for the past 4 days as port placement is scheduled for tomorrow. History of Present Illness 62 yo female with h/o htn, DMII, hypercholesterolemia, CHF, COPD, stroke, anemia, pancreatic cancer, referred for [id number] for chemotherapy; denies previous port or central line, no h/o clavicular fx, no chest or neck surgery; on asa and Plavix daily; h/o duodenal ulcer with anemia dx over 1 month ago, had transfusion at that time, persistent anemia; smokes daily. Review of Systems PHQ Score Initial Depression Screen Score: 0 SCORE ROS - Provider Constitutional: no fever, no sweats, no weight loss. Eyes: no glasses, no blurred vision, no visual loss. ENMT: no dentures, no hoarseness, no swallowing difficulties, no hearing loss, no ear infection(s), no nose bleeds. Cardiovascular: normal blood pressure, no chest pain, regular heartbeat, no heart murmur. Respiratory: no shortness of breath, no cough, no asthma, no wheezing. Gastrointestinal: no nausea, no vomiting, no diarrhea, no constipation, no blood in stool, no change in bowel habits, yes abdominal pain, no hepatitis. Genitourinary: no kidney stones, no urine infection, no dysuria. Musculoskeletal: no pain, no weakness. Skin: no changing moles, no rash, no skin lumps. Neurologic: no seizures, no epilepsy, no headache. Psychiatric: no emotional or psychiatric problem. Heme/Lymph: no bleeding problems, no anemia, no blood clots, no transfusions. Allergy/Immunologic: no swollen lymph nodes/glands, no IV drug abuse. Other: Additional ROS info: Except as noted in the above Review of Systems and in the History of Present Illness, all other systems have been reviewed and are negative or noncontributory. Physical Exam Vitals & Measurements HR: 70(Peripheral) RR: 16 BP: 112/54 HT: 61 in HT: 154.9 cm WT: 91.6 kg WT: 201.52 lb BMI: 38.18 HEENT: normal conjunctiva, sclera clear, no scleral icterus, EOM intact, PERRLA, oral mucosa moist without lesions. Neck: trachea midline, no mass, symmetric, no thyromegaly or nodules, no adenopathy Respiratory: lungs CTA, respirations non labored. Cardiovascular: regular rate and rhythm, mild murmur, no pedal edema or varicosities. Gastrointestinal: obese, soft, distended, mild tenderness, epigastrium no masses, no palpable hernias, diastasis recti no, no hepatosplenomegaly; normal bs Lymphatic: no cervical adenopathy, no supraclavicular adenopathy. Musculoskeletal: normal gait, digits and nails without infection, nodes, cyanosis, clubbing. Skin: no rashes, no lesions, no ulcers, no subcutaneous nodules, induration. Psychiatric/Neuro: oriented to time, place, person, judgement normal, affect appropriate for age, insight intact, no focal deficits. Tests: labs reviewed, x-rays reviewed, review of old records completed , Discussed surgical options, risks, and possible complications with patient. Assessment/Plan 1. Poor venous access (I87.8: Other specified disorders of veins) plan lpnobs-j-mjpm insertion under anesthesia, informed consent obtained. hold Plavix 5 days prior to procedure, continue baby asa. Ancef 2 gms IV prior to OR 2. Pancreas cancer (C25.9: Malignant neoplasm of pancreas, unspecified) see #1 Follow-up No qualifying data available Problem List/Past Medical History Ongoing Advanced care planning/counseling discussion Allergic eczema Anemia BMI 38.0-38.9,adult Cancer related pain Cardiomyopathy due to hypertension, without heart failure Chronic obstructive pulmonary disease Congestive heart failure Controlled type 2 diabetes mellitus with other skin complication, without long-term current use of insulin Diabetic retinopathy Hospital discharge follow-up HTN (hypertension) Hx of cerebral infarction Hypercholesterolemia Infection of great toe Obesity due to excess calories Other specified counseling Pancreas cancer Pancreatic cancer Poor venous access Smoker Historical No qualifying data Procedure/Surgical History Cardiac catheterization (05/15/2023), Cardiac catheterization, left heart (05/15/2023), Amputation of left great toe, EGD - esophagogastroduodenoscopy, Insertion of stent into bile duct using fluoroscopic guidance, Kidney biopsy, Surgery. Medications aspirin 81 mg Oral EC Tab, 81 mg= 1 tab(s), Oral, Daily atorvastatin 20 mg Tab, 20 mg= 1 tab(s), Oral, Bedtime, 3 refills clopidogrel 75 mg Tab, 75 mg= 1 tab(s), Oral, Daily, 3 refills Freestyle Brady 2 Flash Glucose Monitoring 14 Day System ([place]), See Instructions Freestyle Brady 2 Flash Glucose Monitoring 14 Day System (Sensor), See Instructions, 1 refills furosemide 40 mg Tab, 40 mg= 1 tab(s), Oral, Daily, 3 refills glipiZIDE 10 mg Tab, 10 mg= 1 tab(s), Oral, BID, 3 refills HumaLOG KwikPen 100 uni (more content not included)... [facility] Comment on above: Result Comment: Elec tronically Signed By: VIOLETTA MISTRY, Reid Tsai\Date and Time Signed: 05/23/23 14:38 EST 05-18-2023 Hospital Discharge instructions Patient Education 05/18/2023 [...] as any vitamins, herbs, eye drops, creams, xuyk-qlx-kwihqqg medicines, and steroids. Any problems you or [...] provider tells you to take them. Taking gosi-yjz-bvbkytk medicines, vitamins, herbs, and supplements. General instructions [...] is safe. You will be given a senior mobile application developer's information card for the type of port [...] provider, usually every few weeks. Keep your senior mobile application developer's information card with you at all times. This information is not intended to replace advice given to you by your health care provider. Make sure you discuss any questions you have with your health care provider. Document Revised: 09/21/2021 Document Reviewed: 09/21/2021 [employer] Patient Education 2022 [employer]. 05/18/2023 10:01:13 Pancreatic Cancer Pancreatic Cancer Pancreatic [...] Follow these instructions at home: Medicines Take angs-bhj-atcbump and prescription medicines only as told by [...] to keep your urine pale yellow. ?Take drzh-jnv-ugdemgj or prescription medicines. ?Eat foods that are [...] having problems eating, see a food and virtual reality specialist (dietitian). Do not drink alcohol. General instructions Work with your health care provider to manage any side effects of your treatment. Return to your normal activities as told by your health care provider. Ask your health care provider what activities are safe for you. Keep all follow-up visits. These monitor the treatments and guide next steps. Where to find more information [employer]: www.cancer.org National Cancer [place] (NCI): www.cancer.gov Contact a health care provider [...] provider. Document Revised: 06/29/2022 Document Reviewed: 06/29/2022 [employer] Patient Education 2022 [employer] 05/18/2023 10:00:44 Pulmonary Nodule, Tlvk-rc-Qneq Pulmonary Nodule A pulmonary nodule is a [...] nodule. Follow these instructions at home: Take pppj-xuw-moevqpb and prescription medicines only as told by [...] provider. Document Revised: 10/07/2020 Document Reviewed: 10/07/2020 [employer] Patient Education 2022 [employer]. Follow Up Care 05/04/2023 12:25:32 With:Francine Sarabia DO, ONC Address: [facility] [place] [address] [phone] Fax Business (1) When: Unknown Comments:iv iron soonport referralFOLFIRNOX a week from monday (05/29)cbc, cmp, ca199 cea prior to chemotherapy. [facility] 05-16-2023 Note Procedure Patient seen and examined. [...] IV sedation plan Assessment/Plan Ordered: Site Check [facility] Comment on above: Result Comment: Elec tronically Signed By: Rik MISTRY, Felix Vann\.br\Date and Time Signed: 05/16/23 12:42 EST 05-16-2023 Note [id number]#[id number] [facility] 05-15-2023 Hospital Discharge instructions Patient Education 05/15/2023 09:40:37 CV - Cardiovascular Discharge Instructions (Custom) [place], [place] CARDIOVASCULAR DISCHARGE INSTRUCTIONS Diet: Resume pre-procedure [...] hours post procedure: Actoplus MetGlucophageGlucophage XR GlucovanceAvandametFortamet Hps-thyruxiznXkpvzlJzjh-mmytjvcli GlumetzaJanumetMetaglip RiometGlycomet *Minimal pain, soreness and/or discomfort [...] you are interested in smoking cessation, contact [facility] at [phone], ext. [phone]. In the event you are unable to reach your physician, please call [facility] at [phone] and the carton forming machine operator will assist you. Seek Immediate Medical Care for: Bleeding: Apply continuous pressure to the site and Call 911. Should the arm or leg become cold, numb, blue or white call your physician immediately. Signs of infection are redness, warmth, swelling, increased tenderness, colored drainage, fever or chills Chest pain Follow Up Care 05/09/2023 08:56:15 With:Esau Riddle Address:Unknown When: Unknown With:Felix Jolly Address: [address] [place], [place] [address] [facility] (1) When:06/09/2023 13:45:00 Comments:Keep scheduled appointment [facility] 05-08-2023 History of Present illness Narrative Subjective Karuna Nelson is a 62 y.o. female who is referred by Dr. Danyel Aragon. Medical oncology [facility]. Pancreatic cancer. HPI The patient is [...] at this time. She will see her business integration analyst at [facility] for cardiac catheterization. She will stop her Eliquis 3 days before surgery. She will continue her aspirin. We discussed smoking cessation and prehab Edison Pinto MD documented in this encounter [facility] Work Phone: 05-04-2023 Note Chief Complaint Pancreatic CA/ New referral from Dr. Riddle at [facility] Patient is here with her sister Tessy Oncological History/ROS/PE/Assessment and Plan 62-year-old female referred to me by Dr. Yojana Riddle in [place]. Past medical history includes chronic diastolic heart [...] April 23, 2023. She was admitted to [facility] she was found to have obstructive jaundice. [...] either Millie Harris, Or tyrone Rdz at [facility] locations cbc, cmp, ca199. iron studies, b12, folate, cea, epo, esr. set up for pet/ct set up for ct biopsy right lung nodule. we need her images from [facility]. get images and reports sent to as well. we need her reports from ERCP, MRCP, oncology specialist, data security consultant send her pancreas tissue for NGS [...] information available Labs No Qualifying Data Available [facility] 04-28-2023 History of Present illness Narrative CLINICAL [...] NOTE Patient: Karuna Nelson : 1960 Facility: [facility] Date: 04/27/2023 Newspaper Correspondent: Shirley Reyes APRN - C[place] SUBJECTIVE: 62 y.o. female admitted 04/23/2023 with [...] ulcer and esophagitis. Outpatient follow up with [facility] surgery and oncology. Please recall GI as needed. Discussed with Dr. Yao Images from the original note were not included. [facility] Office: [phone] Kevin Floyd DO, Aniket Malik, DO, Denton Herrmann, DO, Luc Tony, DO, Lubna Muñiz MD, Barbara Mari MD, Hussain Peraza MD, Alejandra Jacobsen MD, Buck Mcgee MD, Sapna Charles MD, Max Hill MD, Marlys Beckett DO, Jeromy Samson MD, Kavon Romero MD, Reid Floyd DO, Karuna Cochran MD, Michael Peterson, DO, Stefanie Reynolds MD, Sadia Bazan MD, Lyn Singh MD, Shailesh Miranda MD, John Watkins MD, Cheng Montenegro MD, Tiffanie Hernandez MD, Yong Garrido MD, Simone Cunha MD, Doretha Pringle MD, Malik Carmona DO, Floyd Hardy DO, Ivan Perez MD, Latrell Barrientos MD, Anny Garcia, CLINICAL SCIENTIST, Mini Monson, CLINICAL SCIENTIST, Teodoro Farley, CLINICAL SCIENTIST, Meeta Mejia, DNP, Darlene Mcnair, CLINICAL SCIENTIST, Piedad Perez, CLINICAL SCIENTIST, Jocelyn Guerrero, CLINICAL SCIENTIST, Alicia Lugo, CLINICAL SCIENTIST, Christal Rosa, CLINICAL SCIENTIST, Savana Brewster, PA-C, Bettina Dominguez, PA-C, Jayna Brewster, CLINICAL SCIENTIST, Leticia Ortiz, RETORT FIREMAN, Eliza Wong, CLINICAL SCIENTIST, Willow Garduno, CLINICAL SCIENTIST, Arabella Wood, CLINICAL SCIENTIST [facility] IN-PATIENT SERVICE [facility] Progress Note 04/27/2023 9:04 AM Name: Karuna Nelson Acct: [id number] Room: [facility]/1011-02 Day: 4 Admit Date: 04/23/2023 1:18 PM [...] , PHART , PH , POCPCO2 , KEE1BDD , PCO2 , POCPO2 , PO2ART , PO2 , POCHCO3 , TDJ0HYT , HCO3 , NBEA , PBEA , BEART , BE , THGBART , THB , IAO7OWC , SRTV4WBG , F6LHQNYW , O2SAT , FIO2 No results found [...] 3:38 PM by Teodoro Farley APRN - JUNIOR ORACLE DBA mild per cath 08/07/2020 Pancreatic mass 04/26/2023 [...] = give 8U, 351-400 = give 10U Rocio Toribio MD metFORMIN (GLUCOPHAGE-XR) 500 MG extended release tablet Take 2 tablets by mouth 2 times daily Rocio Toribio MD Current Facility-Administered Medications Medication Dose Route Frequency Provider Last Rate Last Admin 0.9 % sodium chloride infusion IntraVENous PRN Calfee, Willow Jennifer, BRAIDING OPERATOR - CLINICAL SCIENTIST 0.9 % sodium chloride infusion IntraVENous PRN Teodoro Farley BRAIDING OPERATOR - JUNIOR ORACLE DBA glucose chewable tablet 16 g 4 tablet Oral PRN Teodoro Farley BRAIDING OPERATOR - JUNIOR ORACLE DBA dextrose bolus 10% 125 mL 125 mL IntraVENous PRN Teodoro Farley APRN - JUNIOR ORACLE DBA Or dextrose bolus 10% 250 mL 250 mL IntraVENous PRN Teodoro Farley BRAIDING OPERATOR - JUNIOR ORACLE DBA glucagon injection 1 mg 1 mg SubCUTAneous PRN Teodoro Farley BRAIDING OPERATOR - JUNIOR ORACLE DBA dextrose 10 % infusion IntraVENous Continuous PRN Teodoro Farley BRAIDING OPERATOR - JUNIOR ORACLE DBA atorvastatin (LIPITOR) tablet 20 mg 20 mg Oral Nightly Teodoro Farley BRAIDING OPERATOR - JUNIOR ORACLE DBA 20 mg at 04/26/232127 furosemide (LASIX) tablet 40 mg 40 mg Oral Daily Teodoro Farley BRAIDING OPERATOR - JUNIOR ORACLE DBA 40 mg at 04/26/23 173 glipiZIDE (GLUCOTROL) tablet 10 mg 10 mg Oral BID Teodoro Farley BRAIDING OPERATOR - JUNIOR ORACLE DBA 10 mg at 04/27/23 0504 insulin glargine (LANTUS) injection vial 20 Units 20 Units SubCUTAneous BID Teodoro Farley BRAIDING OPERATOR - JUNIOR ORACLE DBA 20 Units at 04/26/232127 lisinopril (PRINIVIL;ZESTRIL) tablet 30 mg 30 mg Oral Daily Teodoro Farley BRAIDING OPERATOR - JUNIOR ORACLE DBA 30 mg at 04/26/23 173 metoprolol (LOPRESSOR) tablet 100 mg 100 mg Oral BID Teodoro Farley BRAIDING OPERATOR - JUNIOR ORACLE DBA 100 mg at 04/26/232127 spironolactone (ALDACTONE) tablet 50 mg 50 mg Oral Daily Teodoro Farley BRAIDING OPERATOR - JUNIOR ORACLE DBA 50 mg at 04/26/23 1737 insulin lispro (HUMALOG) injection vial 0-16 Units 0-16 Units SubCUTAneous TID WC Teodoro Farley BRAIDING OPERATOR - JUNIOR ORACLE DBA 16 Units at 04/26/23 173 insulin lispro (HUMALOG) injection vial 0-4 Units 0-4 Units SubCUTAneous Nightly Teodoro Farley BRAIDING OPERATOR - JUNIOR ORACLE DBA pantoprazole (PROTONIX) tablet 40 mg 40 mg Oral BID Satinder Yao MD 40 mg at 04/27/23 0504 sodium chloride 0.9 % bolus 100 mL 100 mL IntraVENous Once Satinder Yao MD 0.9 % sodium chloride infusion IntraVENous Continuous Satinder Yao MD 100 mL/hr at 04/25/23 1913 New Bag at 04/25/23 191 sodium chloride flush 0.9 % injection 10 mL 10 mL IntraVENous Once Satinder Yao MD sodium chloride flush 0.9 % injection 5-40 mL 5-40 mL IntraVENous 2 times per day Satinder Yao MD 10 mL at 04/24/23 1049 sodium chloride flush 0.9 % injection 10 mL 10 mL IntraVENous PRN Satinder Yao MD 10 mL at 04/24/232037 0.9 % sodium chloride infusion IntraVENous PRN [...] 650 mg Oral Q6H PRN Satinder Yao MD Or acetaminophen (TYLENOL) suppository 650 mg [...] 0.30 k/uL RBC Morphology ANISOCYTOSIS PRESENT Cytology, Non-Steep Tender Result Value Ref Range Comprehensive Metabolic Panel [...] Bank Sample Expiration 04/29/2023,2359 Arm Band Number [id number] ABO/Rh B POSITIVE Antibody Screen NEGATIVE Unit Number [id number] Component Leukocyte Reduced Red Cell Unit Divison 00 Dispense Status Blood Bank ISSUED Unit Issue Date/Time [id number] Product Code Blood Bank [id number] Blood Bank Unit Type and Rh O POS Blood Bank ISBT Product Blood Type 5100 Blood Bank Blood Product Expiration Date Transfusion Status OK TO TRANSFUSE Crossmatch Result COMPATIBLE Unit Number [id number] Component Leukocyte Reduced Red Cell Unit Divison 00 Dispense Status Blood Bank ISSUED Unit Issue Date/Time [id number] Product Code Blood Bank [id number] Blood Bank Unit Type and Rh O POS Blood Bank ISBT Product Blood Type 5100 Blood Bank Blood Product Expiration Date [id number] Transfusion Status OK TO TRANSFUSE Crossmatch Result [...] obstructive jaundice, incidental pulmonary nodules identified on MAIL PROCESSING EQUIPMENT MECHANIC PROVIDED HISTORY: Pancreatic mass, obstructive jaundice, incidental [...] peripancreatic stranding in this region. There is qiyn-yq-trsjcqis atrophy of the body and tail without [...] The aorta is normal in caliber with qffdjljj-gc-nsrqfm atherosclerosis. The celiac axis and SMA are [...] cholelithiasis, gallbladder wall thickening, or pericholecystic fluid. Prison Teacher reports some pain over the gallbladder/common duct. [...] was confirmed Blood was dual signed per mortgage underwriter and an additional Fozia MACKENZIE, Blood touched vein @ 1:15 Vitals stable. Vitals were taken within 30 minutes prior to blood administration and 15 minutes after start Patient was observed for first 15 minutes per mortgage underwriter No reaction noted. Will continue to monitor [...] Erica Funez OT SPIRITUAL CARE DEPARTMENT - [facility] PROGRESS NOTE Room # 1011/1011-02 Name: Karuna Nelson Holiness: Religious: Denominational Reason for visit: Rounding I visited the patient. Admit Date & Time: 04/23/2023 1:18 PM Assessment: Karuna Nelson is a 62 y.o. female in the hospital because Obstructive jaundice. Upon entering the room The patient was sitting up in bed watching TV land ([employer]). Intervention: I introduced myself and my title as quality control assessor I offered space for the patient to express feelings, needs, and concerns and provided a ministry presence. The [place], and patient had a wonderful talk about her growing up watching the [employer] TV shows with her dad, and brothers, and sisters (6 of them) when Her mom was asleep. The patient also discussed her 3 children (2 daughters at least); her 9 grandchildren (ages 1 to 18), and the large community of neighbors at her, [facility] in [place], [place]. The patient mentioned that all of [...] all we can ask or think. The Sanitary Plumber prayed for the patients physical and emotional healing, and left a prayer card with a few scriptures written on it to encourage for latter (Ephesians 3:20, and Kristiniasjaskaran). Outcome: The patient was very encouraged, and thankful for the visit. Plan: Chaplains will remain available to offer spiritual and emotional support as needed. . Spiritual Care Department [facility] Physical Therapy DATE: 04/26/2023 NAME: Karuna [...] from the original note were not included. [facility] Office: [phone] Kevin Floyd DO, Aniket Malik DO, Denton Herrmann DO, Luc Tony DO, Lubna Muñiz MD, Barbara Mari MD, Hussain Peraza MD, Alejandra Jacobsen MD, Buck Mcgee MD, Sapna Charles MD, Max Hill MD, Marlys Beckett DO, Jeromy Samson MD, Kavon Romero MD, Reid Floyd DO, Karuna Cochran MD, Michael Peterson DO, Setfanie Reynolds MD, Sadia Bazan MD, Lyn Singh MD, Shailesh Miranda MD, John Watkins MD, Cheng Montenegro MD, Tiffanie Hernandez MD, Yong Garrido MD, Simone Cunha MD, Doretha Pringle MD, Malik Carmona DO, Floyd Hardy DO, Ivan Perez MD, Latrell Barrientos MD, Anny Garcia CNP, Mini Monson CNP, Teodoro Farley CNP, Meeta Mejia DNP, Darlene Mcnair CNP, Piedad Perez CNP, Jocelyn Guerrero CLINICAL SCIENTIST, Alicia Lugo, CLINICAL SCIENTIST, Christal Rosa, CLINICAL SCIENTIST, Savana Brewster PAAntonioC, KYRIE VidalC, Jayna Brewster CNP, Leticia Ortiz, RETORT FIREMAN, Eliza Wong, CLINICAL SCIENTIST, Willow Garduno CNP, Arabella Wood, CLINICAL SCIENTIST [facility] IN-PATIENT SERVICE [facility] Progress Note 04/26/2023 9:41 AM Name: Karuna Nelson Acct: [id number] Room: 1011/1011-02 IP Day: 3 Admit Date: 04/23/2023 1:18 PM [...] chloride dextrose sodium chloride 100 mL/hr at 04/25/23 1913 dextrose sodium chloride PRN Meds: sodium chloride, [...] (36.7 C) Recent Labs 04/24/23 1709 04/25/23 1757 04/25/23 1845 04/26/23 0726 POCGLU 307* 362* 305* 361* I/O (24Hr): Intake/Output Summary (Last 24 hours) at 04/26/2023 0941 Last data filed at 04/25/2023 1845 Gross per 24 hour Intake 1131.61 ml Output 725 ml Net 406.61 ml Labs: Hematology: Recent Labs 04/24/23 0510 04/26/23 0855 WBC 9.2 11.2 RBC 3.28* 2.03* [...] , PHART , PH , POCPCO2 , BHO7QET , PCO2 , POCPO2 , PO2ART , PO2 , POCHCO3 , CAR1SDA , HCO3 , NBEA , PBEA , BEART , BE , THGBART , THB , ETO3TDO , JUON3JLN , I8MGJVLJ , O2SAT , FIO2 No results found [...] stable Re-oriented to room Occupational Therapy Facility/Department: [facility] Occupational Therapy Initial Assessment Name: Karuna Nelson [...] AD at baseline) Transfer Assistance: Independent Active Quality Control Assessor: No Patient's Quality Control Assessor Info: family Occupation: Retired Type of Occupation: [...] None Education Outcome: Continued education needed;Verbalized understanding AM-PAC - ADL [facility] Daily Activity - Inpatient How much help [...] How much help for eating meals?: None [facility] Inpatient Daily Activity Raw Score: 16 [facility] Inpatient ADL T-Scale Score : 35.96 ADL Inpatient CMS 0-100% Score: 53.32 ADL Inpatient CMS G-Code Modifier : CK Goals Short Term [...] for increased safety/IND with self care tasks. Hematology Technician Goals Hematology Technician Goal 1: Pt to be IND with [...] Tx Time: 12 minutes Erica Funez OT [facility] DEPARTMENT [facility] PROGRESS NOTE Room # 1016/1016-02 Name: Karuna Nelson Reason for visit: Routine I visited the patient. Admit Date & Time: 04/23/2023 1:18 PM Assessment: Karuna Nelson is a 62 y.o. female. Sanitary Plumber consult, PT: declines .Upon entering the room patient states well, states no major needs or prayers. Patient was passive, quite. PT: declines Spiritual Care visit. Sanitary Plumber leaves prayer card for patient for possible follow up as needed. Intervention: Sanitary Plumber provided a ministry presence. Outcome: Patient has no response Plan: Chaplains will remain available to offer spiritual and emotional support as needed. . Spiritual Care Department [facility] 04/25/23 1155 Encounter Summary Service Provided For: Patient Referral/Consult From: Nurse;Rounding Support System Unknown Last Encounter 04/25/23 Complexity of Encounter Low Begin Time 1107 End Time 1109 Total Time Calculated 2 min Assessment/Intervention/Outcome Assessment Unable to assess Intervention Sustaining Presence/Ministry of presence Outcome Refused/Declined Physical Therapy Facility/Department: [facility] Physical Therapy Initial Assessment Name: [...] AD at baseline) Transfer Assistance: Independent Active Quality Control Assessor: No Patient's Quality Control Assessor Info: family Occupation: Retired Type of Occupation: [employer] Leisure & Hobbies: 9 grandchildren Additional Comments: [...] - Mobility AM-PAC Basic Mobility - Inpatient AM-[facility] Inpatient Mobility Raw Score : 14 AM-PAC Inpatient T-Scale Score : 38.1 Mobility Inpatient CMS 0-100% Score: 61.29 Mobility Inpatient CMS G-Code Modifier : CL Goals Short Term [...] RN communication Treatment time: 10 minutes Beth Keenan, PT Images from the original note were not included. [facility] Office: [phone] Kevin Floyd DO, Aniket Malik DO, Denton [...] MD, Tiffanie Hernandez MD, Yong Garrido MD, Smione Cunha MD, Doretha Pringle MD, Malik Carmona DO, Floyd Hardy DO, Ivan Perez MD, Latrell Barrientos MD, Anny Garcia CNP, Mini Monson CNP, Teodoro Farley CNP, Meeta Mejia, ABHINAV, Darlene Mcnair, CLINICAL SCIENTIST, Piedad Perez, CLINICAL SCIENTIST, Jocelyn Guerrero CNP, Alicia Lugo, CLINICAL SCIENTIST, Christal Rosa CNP, Savana Brewster PA-C, KYRIE VidalC, Jayna Brewster, CELSO, Leticia Ortiz, NICO, Eliza Wong, CLINICAL SCIENTIST, Willow Garduno, CLINICAL SCIENTIST, Arabella Wood, CLINICAL SCIENTIST [facility] IN-PATIENT SERVICE [facility] Progress Note 04/25/2023 10:29 AM Name: Karuna Nelson Acct: [id number] Room: 1016/1016-02 IP Day: 2 Admit Date: [...] , PHART , PH , POCPCO2 , NEB5PJY , PCO2 , POCPO2 , PO2ART , PO2 , POCHCO3 , SON5DYB , HCO3 , NBEA , PBEA , BEART , BE , THGBART , THB , KYJ5IAX , OJOF9FVS , S9ZTSNSI , O2SAT , FIO2 No results found [...] 3:38 PM by Teodoro Farley APRN - JUNIOR ORACLE DBA moderate per cath 08/07/2020 Obesity due to excess calories 04/23/2023 Yes Hypercholesterolemia 04/23/2023 Yes Diabetes mellitus type II, controlled (HCC) 04/23/2023 Yes Coronary arteriosclerosis 04/23/2023 Yes Overview Signed 04/23/2023 3:38 PM by Teodoro Farley BRAIDING OPERATOR - JUNIOR ORACLE DBA mild per cath 08/07/2020 Plan: Obstructive jaundice [...] from the original note were not included. [facility] Office: [phone] Kevin Floyd DO, Aniket Malik DO, Denton [...] Darlene Mcnair CNP, Piedad Perez CNP, Jocelyn Guerrero, CLINICAL SCIENTIST, Alicia Lugo, CLINICAL SCIENTIST, Christal Rosa, CLINICAL SCIENTIST, Savana Brewster, PAAntonioC, KYRIE VidalC, Jayna Brewster, CLINICAL SCIENTIST, Leticia Ortiz, RETORT FIREMAN, Eliza Wong, CLINICAL SCIENTIST, Willow Garduno CNP, Arabella Wood CNP [facility]-PATIENT SERVICE [facility] [facility] Progress Note 04/24/2023 1:36 PM Name: Karuna Nelson Acct: [id number] Room: 1016/1016-02 Day: 1 Admit Date: 04/23/2023 [...] , PHART , PH , POCPCO2 , XDR6XSG , PCO2 , POCPO2 , PO2ART , PO2 , POCHCO3 , NAX7QCO , HCO3 , NBEA , PBEA , BEART , BE , THGBART , THB , LEP9NRJ , HUVO1QJW , N2EVAOCB , O2SAT , FIO2 No results found [...] 3:38 PM by Teodoro Farley APRN - JUNIOR ORACLE DBA moderate per cath 08/07/2020 Obesity due to excess calories 04/23/2023 Yes Hypercholesterolemia 04/23/2023 Yes Diabetes mellitus type II, controlled (HCC) 04/23/2023 Yes Coronary arteriosclerosis 04/23/2023 Yes Overview Signed 04/23/2023 3:38 PM by Teodoro Farley APRN - JUNIOR ORACLE DBA mild per cath 08/07/2020 Plan: Obstructive jaundice [...] gallbladder ultrasound. Patient received scheduled IV Zosyn. Xunzxn-ly-ppu colored urine through Purewick. Denies flank pain throughout shift. Side raised x2 raised for patient safety. Will monitor. Patient arrived in room 101[facility] from [facility]. Vital signs and assessment obtained. Patient A&O x 4. Patient currently denies pain. GI notified of new consult via perfect serve. Will continue to monitor patient closely. documented in this encounter [facility] 04-18-2023 Evaluation note Encounter Date Diagnosis Assessment Notes Apr, Peripheral artery disease (ICD-10 - I73.9) Apr, Other Peripheral arterial occlusive disease Based on her current history and exam she is doing quite well. We will see her back in 3 months with ankle-brachial indices at that time. She may return sooner should her wounds deteriorate in any way. Months Of Me Other 12-15-2023 Progress note Author Reyes Hamilton [facility] March 18, 2023 2:34am Note Date/Time March 17, 2023 12:08pm [facility] [address] [place] [address] Hospitalist Progress Note Signed Patient: Karuna Nelson MR#: [id number] : 1960 Acct:[id number] Age/Sex: 62 / F Adm Date: 3 Loc: 4N Room: [address] [place] [address] Type: DIS IN Attending Dr: Luc Vargas [...] Dose Route Start Last Admin Trade Name Jesus PRN Reason Stop Dose Admin Aspirin 81 [...] 500 Mg Tablet PO 03/17/24 16:59 BID.WITH.MEALS [facility] Metoprolol Tartrate 100 mg 03/16/23 21:00 03/17/23 08:11 Metoprolol Tartrate 100 Mg Tablet PO 03/15/24 20:59 100 mg BID EMILIE Administration Non-Formulary Medication 0.75 mg 03/23/23 09:00 Dulaglutide [Trulicity] SUBCUT 03/22/24 08:59 QWEEK [facility] Ondansetron HCl 4 mg 03/16/23 16:19 [...] MD Documented By: Eliza Pichardo APRN 03/17/23 1208 Signed By: <Electronically signed by CHACHO Pichardo> 03/17/23 1415 <Electronically signed by Reyes Hamilton MD> 03/18/23 2774 [facility] Work Phone: 1(797) 716-458112-15-2023 Consult note Author Reyes Hamilton [facility] March 17, 2023 2:47am Note Date/Time March 16, 2023 6:49pm [facility] [address] [place] [address] Hospitalist Consult Note Signed Patient: Karuna Nelson MR#: [id number] : 1960 Acct:[id number] Age/Sex: 62 / F Adm Date: 3 Loc: Room: 1T2987-8 Type: ADM IN Attending Dr: Luc Vargas MD Copies to: MD Eliza Cochran APRN Marwan Wassouf, MD Samuel E Ross [...] negative unless noted in the HPI below [facility] Medical History Carotid stenosis CHF (congestive heart [...] dulaglutide 0.75 mg/0.5 mL subcutaneous pen injector (Trulicity) 0.75 mg subcut QWEEK 03/01/23 [History Confirmed [...] 81 Mg Tablet.Dr PO 03/16/24 08:59 DAILY [facility] Atorvastatin Calcium 20 mg 03/17/23 09:00 Atorvastatin 20 Mg Tablet PO 03/16/24 08:59 DAILY [facility] Clopidogrel Bisulfate 75 mg 03/17/23 09:00 Clopidogrel Bisulfate 75 Mg Tablet PO 03/16/24 08:59 DAILY [facility] Docusate Sodium 100 mg 03/16/23 21:00 [...] 03/17/23 00:30 Vancomycin IV 03/17/23 01:29 Q12H [facility] Insulin Glargine 20 units 03/16/23 21:00 Insulin Glargine 300 Units/3 Ml Insuln.Pen SUBCUT 03/15/24 20:59 BID [facility] Lisinopril 30 mg 03/17/23 09:00 Lisinopril 10 Mg Tablet PO 03/16/24 08:59 DAILY [facility] Metformin HCl 500 mg 03/18/23 17:00 Metformin 500 Mg Tablet PO 03/17/24 16:59 BID.WITH.MEALS [facility] Metoprolol Tartrate 100 mg 03/16/23 21:00 Metoprolol Tartrate 100 Mg Tablet PO 03/15/24 20:59 BID [facility] Non-Formulary Medication 0.75 mg 03/23/23 09:00 Dulaglutide [Trulicity] SUBCUT 03/22/24 08:59 QWEEK [facility] Ondansetron HCl 4 mg 03/16/23 16:19 [...] % (Auto) 73.3, Lymph % (Auto) 17.5, Cataño % (Auto) 5.8, Eos % (Auto) 2.3, Baso % (Auto) 1.1, Nucleat RBC Rel Count 0.0, Neut # (Auto) 8.1 H, Lymph # (Auto) 1.9, Cataño # (Auto) 0.6, Eos # (Auto) 0.3, [...] <Electronically signed by Reyes Hamilton MD> 03/17/23 0247 [facility] Work Phone: [phone]) 282-739611-14-2023 Evaluation note* Encounter Date Diagnosis Assessment Notes Treatment Notes Treatment Clinical Notes Feb, Peripheral arterial disease (ICD-10 - I73.9) Feb, Gangrene of toe of left foot (ICD-10 - I96) Feb, Pain in unspecified foot (ICD-10 - M79.673) [...] She will continue her other medical therapy. Months Of Me Other 10-26-2023 NoteMicrobiology PROCEDURE: Wound Culture [R1] SOURCE: Abscess BODY SITE: Toe COLLECTED DATE/TIME: 01/24/2023 09:30 EDT RECEIVED DATE/TIME: 01/24/2023 20:13 EDT START DATE/TIME: 01/24/2023 20:13 EDT FREE TEXT SOURCE: Left Great Toe Dolce DPM, Cole D Dolce DPM, Cole D FINAL REPORTS Final Report [] Verified Date/Time: [...] Locations R1: This test was performed at: [facility], [address] [place] [address], [address]- , , TigivwBerger HospitalComment on above:Performed By: #### [id number] ####[facility] [address] [place], [place] [id number] Hospital Discharge instructions Follow Up Care 01/13/2023 13:19:06 With:Esau Riddle Address: [address] [place] [address]- Business (2) When:1 to 2 days [facility]03-27-2023 Evaluation note* Encounter Date Diagnosis Assessment Notes [...] every 6 months with repeat ultrasound examination. Months Of Me Other 07-26-2022 Evaluation note* Encounter Date Diagnosis [...] 6 months with repeat carotid duplex examination. Months Of Me Other Evaluation + Plan note Future Appointments Appointment Date:01/16/2023 01:00:00 PM Scheduled Provider:Esau Riddle MD Location:[facility] Appointment Type:FM Open Appointment Date:01/19/2023 02:15:00 PM Scheduled Provider:Felix Jolly MD Location:[facility] Appointment Type:Cardiology Follow Up (FT) Future Scheduled Tests Radiology* NM Myocardial Spect Rest/Stress 1 Day 12/08/22 * Echo Transthoracic Complete 12/08/22 [facility] Future Appointments Appointment Date:03/21/2023 03:00:00 PM Scheduled Provider:Esau Riddle MD Location:[facility] Appointment Type:FM Open Diagnostic Tests Pending * Wound Culture 01/24/23 Future Scheduled Tests Radiology* NM Myocardial Spect Rest/Stress 1 Day 12/08/22 * Echo Transthoracic Complete 12/08/22 [facility] Future Appointments Appointment Date:03/21/2023 03:00:00 PM Scheduled Provider:Esau Riddle MD Location:[facility] Appointment Type:FM Open Future Scheduled Tests Radiology* NM Myocardial Spect Rest/Stress 1 Day 12/08/22 * Echo Transthoracic Complete 12/08/22 [facility] Future Appointments Appointment Date:04/25/2023 01:00:00 PM Scheduled Provider:Esau Riddle MD Location:[facility] Appointment Type:FM Open Appointment Date:05/05/2023 10:15:00 AM Scheduled Provider:Felix Jolly MD [facility] Type:Cardiology Follow Up (FT) Future Scheduled Tests Radiology* NM Myocardial Spect Rest/Stress 1 Day 12/08/22 * Echo Transthoracic Complete 12/08/22 [facility] Future Appointments Appointment Date:05/05/2023 10:15:00 AM Scheduled Provider:Felix Jolly MD Location:[facility] Appointment Type:Cardiology Follow Up (FT) Appointment Date:05/18/2023 09:30:00 AM Scheduled Provider:Francine Sarabia DO [facility] Type:ONC Office Visit 30 (FT) Appointment Date:06/06/2023 02:15:00 PM Scheduled Provider:Esau Riddle MD Location:[facility] Appointment Type:FM Open Future Scheduled Tests Radiology* CT Biopsy, Lung/Mediastinum 05/05/23 * Echo Transthoracic Complete 12/08/22 [facility] Future Appointments Appointment Date:05/05/2023 10:15:00 AM Scheduled Provider:Felix Jolly MD [facility] Appointment Type:Cardiology Follow Up (FT) Appointment Date:05/18/2023 09:30:00 AM Scheduled Provider:Francine Sarabia DO [facility] Type:ONC Office Visit 30 (FT) Appointment Date:06/06/2023 02:15:00 PM Scheduled Provider:Esau Riddle MD Location:[facility] Appointment Type:FM Open Diagnostic Tests Pending * CA 19-9 05/04/23 * Erythropoietin Level 05/04/23 Future Scheduled Tests Radiology* CT Biopsy, Lung/Mediastinum 05/05/23 * Echo Transthoracic Complete 12/08/22 [facility] Future Appointments Appointment Date:05/18/2023 09:30:00 AM Scheduled Provider:Francine Sarabia DO [facility] Type:ONC Office Visit 30 (FT) Appointment Date:06/06/2023 02:15:00 PM Scheduled Provider:Esau Riddle MD Location:[facility] Appointment Type:FM Open Appointment Date:07/07/2023 11:15:00 AM Scheduled Provider:Felix Jolly MD Location:[facility] Appointment Type:Cardiology Follow Up (FT) Future Scheduled Tests Radiology* CT Biopsy, Lung/Mediastinum 05/05/23 * Echo Transthoracic Complete 12/08/22 [facility] Future Appointments Appointment Date:05/16/2023 11:00:00 AM Scheduled Provider:BETHANY BAKER MD [facility] App[facility] Type:ONC Supportive Care New (FT) Appointment Date:05/18/2023 09:30:00 AM Scheduled Provider:Francine Sarabia DO [facility] Type:ONC Office Visit 30 (FT) Appointment Date:06/06/2023 02:15:00 PM Scheduled Provider:Esau Riddle MD Location:[facility] Appointment Type: Open Appointment Date:06/09/2023 02:15:00 PM Scheduled Provider:Felix Jolly MD Location:[facility] Appointment Type:Cardiology Follow Up (FT) Future Scheduled Tests Radiology* CT Biopsy, Lung/Mediastinum 05/05/23 * Echo Transthoracic Complete 12/08/22 [facility] Future Appointments Appointment Date:05/18/2023 09:30:00 AM Scheduled Provider:Francine Sarabia DO [facility] Type:ONC Office Visit 30 (FT) Appointment Date:06/06/2023 02:15:00 PM Scheduled Provider:Esau Riddle MD Location:[facility] Appointment Type: Open Appointment Date:06/09/2023 02:15:00 PM Scheduled Provider:Felix Jolly MD Location:[facility] Appointment Type:Cardiology Follow Up (FT) Future Scheduled Tests Radiology* CT Biopsy, Lung/Mediastinum 05/05/23 * Echo Transthoracic Complete 12/08/22 [facility] Future Appointments Appointment Date:05/31/2023 11:00:00 AM Scheduled Provider:Francine Sarabia DO [facility] Type:ONC Office Visit 30 (FT) Appointment Date:06/06/2023 02:15:00 PM Scheduled Provider:Esau Riddle MD Location:[facility] Appointment Type: Open Appointment Date:06/09/2023 02:15:00 PM Scheduled Provider:Felix Jolly MD Location:[facility] Appointment Type:Cardiology Follow Up (FT) Future Scheduled Tests Laboratory* CA 19-9 05/29/23 * CBC w/ Auto Diff 05/17/23 * CBC w/ Auto Diff 05/29/23 * CEA 05/29/23 * Comprehensive Metabolic Panel 05/17/23 * Comprehensive Metabolic Panel 05/29/23 Radiology* CT Biopsy, Lung/Mediastinum 05/05/23 * Echo Transthoracic Complete 12/08/22 [facility] Future Appointments Appointment Date:05/31/2023 11:00:00 AM Scheduled Provider:Francine Sarabia DO Location:.ONCOLOGY Appointment Type:ONC Office Visit 30 (FT) Appointment Date:05/31/2023 01:00:00 PM Scheduled Provider: Location:.ONCOLOGY Appointment Type:ONC Venofer (FT) Appointment Date:06/06/2023 02:15:00 PM Scheduled Provider:Esau Riddle MD Location:[facility] Appointment Type:FM Open Appointment Date:06/07/2023 01:00:00 PM Scheduled Provider: Location:.ONCOLOGY Appointment Type:ONC Venofer (FT) Appointment Date:06/09/2023 02:15:00 PM Scheduled Provider:Felix Jolly MD [facility] [place] Appointment Type:Cardiology Follow Up (FT) Appointment Date:06/14/2023 01:00:00 PM Scheduled Provider: [facility] Type:ONC Venofer (FT) Future Scheduled Tests Laboratory* CA 19-9 05/29/23 * CBC w/ Auto Diff 05/17/23 * CBC w/ Auto Diff 05/29/23 * CEA 05/29/23 * Comprehensive Metabolic Panel 05/17/23 * Comprehensive Metabolic Panel 05/29/23 Radiology* CT Biopsy, Lung/Mediastinum 05/05/23 * Echo Transthoracic Complete 12/08/22 [facility] [place] evaluokrdn noteNo assessment information available [facility] Work Phone: evaluation note* Diagnosis Onset Date Resolution Status Peripheral vascular occlusive disease acute Type 2 diabetes mellitus acu te [facility] Work Phone: evaluation note* Diagnosis Obstructive jaundice- Primary Other specified [...] Coronary atherosclerosis of unspecified type of vessel, [place] or graft Chronic obstructive pulmonary disease (HCC) Chronic airway obstruction, not elsewhere classified Chronic diastolic heart failure (HCC) Chronic diastolic heart failure Duodenal ulcer Duodenal ulcer, unspecified as acute or chronic, without hemorrhage, perforation, or obstruction documented in this encounter [facility] Diagnosis 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 Work Phone: Evaluation note* Diagnosis Lung nodule- Primary Other diseases of lung, not elsewhere classified documented in this encounter [facility] Work Phone: History general Narrative - Reported* Type Description Date Medical History hypertension Medical History diabetes mallitus Medical History hypercholesterolemia Surgical History heart catheterization x2 Months Of Me Other Hisrqlw general Narrative - Reported* Type Description Date Medical History hypertension Medical History diabetes mallitus Medical History hypercholesterolemia Medical History Carotid stenosis Medical History [ ] Surgical History heart catheterization x2 Months Of Me Other Hisdlyl general Narrative - Reported* Type Description Date Medical History hypertension Medical History diabetes mallitus Medical History hypercholesterolemia Medical History Carotid stenosis Medical History [ ] Surgical History heart catheterization x2 Surgical History [ ] Months Of Me Other Hisstfe general Narrative - Reported* Type Description Date Medical History hypertension Medical History diabetes mallitus Medical History hypercholesterolemia Medical History Carotid stenosis Medical History [ ] Surgical History heart catheterization x2 Surgical History LT LEG FEM ENDART Months Of Me Other History of Present illness Narrative* CHAD Bajwa - 05/19/2023 4:00 PM EST Images from the original note were not included. Patient: Karuna Nelson [id number] : 1960 -- AGE 62 y.o. Provider: CHAD Bajwa Location [facility] Service Date: 05/19/2023 Department of Medicine Division of Pulmonary, Critical Care, and Sleep Medicine [facility] New Visit Note Virtual [...] 62 y.o. female who [facility] to a [facility] Clinicfor an [facility] with concerns [...] left heart cath performed by her primary business integration analyst on 05/15/2023; findings of minimal nonobstructive CAD. On today's visit, the patient reports no SOB at rest or TAMEZ. No current or prior inhaler history. Occasional cough; intermittently productive. Light yellow in color. No hemoptysis. No recent fever, chills, night sweats. Overall, weight has been stable. Denies orthopnea. Some lower leg swelling. Denies CP, palpitations. Hx of CHF; established with business integration analyst. Has GERD but well controlled on [place] [...] pars defects. Echocardiogram & Cardiac Studies [facility] (05/15/23) Labwork & Pathology Complete Blood Count [...] 62 y.o. female; was referred to the [facility] for evaluation of right [...] mentions need for cardiac clearance. Sees a business integration analyst at [facility]. Just underwent LHC on 05/15/23 (result posted above) and will be going to PAT on 05/25/23 (per Leonel). I explained the procedure to the patient. We discussed that the bronchoscopy will be performed by amember of the Interventional Pulmonary Team; depending on [...] minutes Total: 22 minutes [facility] Work Phone: Hospital course Narrative No data available for this section [facility] Discharge instructions No data available for this section [facility] Discharge instructions Additional Instructions hold Metformin x 48 hours ,office will call with pre operative instructions [facility] Work Phone: Hospital Discharge instructionsAmbulatory Orders* DME Home Medical Equipment Time Frame: 1 Day, Location: Determined By Patient Additional Instructions -Maintain prevena dressing for 7 days. Then remove and discard. -Daily wound care left first toe:wash with vasche,dress with silvasorb gel, [facility] Work Phone: Hospital Discharge instructions* Attachments The following attachments cannot be sent through Care Everywhere. * Peptic Ulcer Disease ([place]) * Biliary Stent Placement: Post-op ([place]) [facility] No data available for this section [facility] (narrative) , Pancreatic adenocarcinoma. We will have to determine resectability.refer to Dr. Yohannes Blackmon or Dr. Tyrone Rdz or Dr. Yohannes Pinto/ [facility] location only Referred by: Francine Sarabia DO [facility] Summary Purpose Family History No Family History [...] Referral Specialty Diagnoses / Procedures Referred By Contac t Referred To Contact Diagnoses Neoplasm of uncertain behavior of pancreas Procedures E[place] 12 [place] [address] [place] [address] Department of Surgery-[place] [address] Referral ID Status Reason Start Date Expiration Date V isits Requested Visits Authorized [id number] Authorized 05/08/2023 05/07/2024 1 1 Additional Source Comments INFORMATION SOURCE (unrecogn ized section and content) DATE CREATED AUTHOR 08/29/2020 [facility] DATE CREATED AUTHOR AUTHOR'S ORGANIZ ATION 07/01/2022 [facility] DATE CREATED AUTHOR AUTHOR'S ORGANIZ ATION 04/19/2023 [facility] DATE CREATED AUTHOR AUTHOR'S ORGANIZ ATION 05/12/2023 [facility] DATE CREATED AUTHOR AUTHOR'S ORGANIZ ATION 05/19/2023 [facility] DATE CREATED AUTHOR AUTHOR'S ORGANIZ ATION 05/23/2023 [facility] DATE CREATED AUTHOR AUTHOR'S ORGANIZ ATION 05/24/2023 [facility] DATE CREATED AUTHOR AUTHOR'S ORGANIZ ATION 05/24/2023 [facility] REASON FOR VISIT (unrecogniz ed section and content) Specialty Diagnoses / Procedures Referred By Contac t Referred To Contact Diagnoses Obstructive jaundice obstuctive jaundice Shailesh Miranda MD [address] [facility] [address] [place] [address] [facility] [address] [place] [address] Referral ID Status Reason Start Date Expiration Date Visits Re quested Visits Authorized [id number] 1 1 Reason Comments Follow-up Reason Comments [...] MD Admit Provider, Attending Provide r Active Ryees Hamilton MD Other Provider Active [place] Relationship Specialty Start Date End Date Esau Riddle MD [address] [place] [address] PCP - General 04/23/23 [place] Relationship Specialty Start Date End Date Esau Riddle MD [address] [facility] [place] [address] PCP - General Family Medicine 05/05/23 [place] Relationship Specialty Start Date End Date Esau Riddle MD [address] [facility] [place] [id number] PCP - General Family Medicine 05/05/23 Goals [...] Ponce RN)1520 (Held by provider - Provider: Teodoro Farley APRN - JUNIOR ORACLE DBA - Reason: Other) 0900 (Automatically Held - Provider: CHACHO Camacho NP)1831 (Unheld by provider - Provider: Luc Tony DO) 0840 (Given - Provider: Valerie Retana RN) furosemide (LASIX) injection 40 mg (COMPLETED) 40 mg, IntraVENous, ONCE, 1 dose, On Mon04/26/23 at 1000 1049 (Given - Provider: Alysia Ponce, AVRIL) furosemide (LASIX) tablet 40 mg 40 mg, Oral, DAILY, First dose on Mon04/26/23 at 1730, Until Discontinued 173 (Given - Provider: Alysia Ponce RN) 1015 (Given - Provider: Valerie Retana RN) 0839 (Given - Provider: Valerie Retana RN) glipiZIDE (GLUCOTROL) tablet 10 mg 10 mg, Oral, 2 TIMES DAILY BEFORE MEALS, First dose on Mon04/26/23 at 1730, Until Discontinued 173 (Given - Provider: Alysia Ponce RN) 0504 (Given - Provider: Karuna Servin RN)0935 (Held by provider - Provider: CHACHO Camacho NP - Reason: Other)1600 (Automatically Held - Provider: CHACHO Camacho NP) 0700 (Automatically Held - Provider: CHACHO Camacho NP)0716 (Unheld by provider - Provider: Luc Tony DO)0836 (Given - Provider: Valerie Retana RN - Comment: order unheld)1600 (Due) insulin glargine (LANTUS) injection vial 20 Units 20 Units, SubCUTAneous, 2 TIMES DAILY, First dose on Mon04/26/23 at 2100, Until Discontinued 2127 (Given - Provider: Karuna Servin RN) 0935 (Held by provider - Provider: CHACHO Camacho NP - Reason: Other)1129 (Not Given - Provider: Valerie Retana RN - Reason: Other - Comment: held by provider)1831 (Unheld by provider - Provider: Luc Tony DO)2050 (Given - Provider: Nikolas Baumann RN - [...] Servin RN - Reason: Order parameters not met)204 (Given - Provider: Nikolas Baumnan RN - Comment: 421 BG, JUNIOR ORACLE DBA notified) 2100 (Due) insulin lispro (HUMALOG) injection vial 0-8 [...] Retana RN) 0837 (Given - Provider: Valerie Retana, AVRIL) metoprolol (LOPRESSOR) tablet 100 mg 100 mg, Oral, 2 TIMES DAILY, First dose on Mon04/26/23 at 2100, Until Discontinued 2127 (Given - Provider: Karuna Servin RN) 1015 (Given - Provider: Valerie Retana RN)2049 (Given - Provider: Nikolas Baumann, AVRIL) 0836 (Given - Provider: Valerie Retana RN)2100 (Due) pantoprazole (PROTONIX) tablet 40 mg 40 mg, Oral, 2 TIMES DAILY BEFORE MEALS, First dose on Mon04/25/23 at 1815, Until Discontinued, Substituted for Esomeprazole (NEXIUM). 0901 (Given - Provider: Alysia Ponce RN)1737 (Given - Provider: Alysia Ponce RN) 0504 (Given - Provider: Karuna Servin, AVRIL)1806 (Given - Provider: Valerie Retana, AVRIL) 0526 (Given - Provider: Nikolas Baumann, AVRIL)1600 (Due) piperacillin-tazobactam (ZOSYN) 3,375 mg in sodium chloride 0.9 % 50 mL IVPB (mini-bag) (CANCELED)(Linked Group 2) 3,375 mg, IntraVENous, EVERY 8 HOURS, First dose on Mon04/23/23 at 2000, Until Discontinued, Antimicrobial Indications: Intra-Abdominal Infection 0201 (Stopped - Provider: Karuna Servin, AVRIL)0449 (New Bag - Provider: Karuna Servin RN)0849 (Stopped - Provider: Alysia Ponce RN) sodium bicarbonate 8.4 % injection 50 mEq (COMPLETED) 50 mEq, IntraVENous, ONCE, 1 dose, On Mon04/26/23 at 1000 1050 (Given - Provider: Alysia Ponce RN) sodium chloride 0.9 % bolus 100 mL [...] Fluid Infusing)1016 (Given - Provider: Valerie Retana RN)2050 (Not Given - Provider: Nikolas Baumann RN - Reason: IV Fluid Infusing) 0841 (Given - Provider: Valerie Retana RN)2100 (Due) spironolactone (ALDACTONE) tablet 50 mg 50 mg, Oral, DAILY, First dose on Mon04/26/23 at 1730, Until Discontinued 1737 (Given - Provider: Alysia Ponce RN) 1015 (Given - Provider: Valerie Retana RN) 0836 (Given - Provider: Valerei Retana RN) Continuous Medication Order 04/26/2023 04/27/2023 04/28/2023 0.9 % sodium chloride infusion IntraVENous, at 100 mL/hr, CONTINUOUS, Starting on Mon04/24/23 at 1300 1209 (New Bag - Provider: Valerie Retana, RN)2230 (New Bag - Provider: Nikolas Baumann, RN) 1119 (Stopped - Provider: Valerie Retana, RN) PRN Medication Order 04/26/2023 04/27/2023 04/28/2023 0.9 % sodium chloride infusion IntraVENous, at 5-250 mL/hr, PRN, if patient receiving piggyback infusions and maintenance fluids are not ordered OR KVO fluids to protect IV site / prevent frequent line interruptions/ long duration, Starting on 04/23/23 at 1325, For piggyback infusion, administer at [...] IntraVENous, EVERY 4 HOURS PRN, Starting on Mon04/23/23 at 1510, Until Discontinued, Pain Severe (7-10), If oral and IV narcotics ordered, use oral first and only use IV if oral is ineffective or cannot take oral. Do Not give oral and IV within 1 hour of each other unless specifically ordered. ondansetron (ZOFRAN) injection 4 mg(Linked Group 5) 4 mg, IntraVENous, EVERY 6 HOURS PRN, Starting on Mon04/23/23 at 1325, Until Discontinued, Nausea, Vomiting, Administer if oral route cannot be used. polyethylene glycol (GLYCOLAX) packet 17 g 17 g, Oral, DAILY PRN, Starting on Mon04/23/23 at 1325, Until Discontinued, Constipation, First line therapy for constipation potassium bicarb-citric acid (EFFER-K) effervescent tablet 40 mEq(Linked Group 6) 40 mEq, Oral, PRN, Starting on Mon04/23/23 at 1325, Until Discontinued, Per Potassium Replacement [...] 6) 10 mEq, IntraVENous, PRN, Starting on 04/23/23 [...] mL 10 mL, IntraVENous, PRN, Starting on 04/23/23 at 1325, Until Discontinued, Line Care, After [...] BE BASED ON THE PRIMARY CLINICAL RECORDS. [employer] provides no warranty or guarantee of the accuracy or completeness of information in this document.
[2023-05-24] MEDS: LACTATED RINGER'S SOLUTION 1,000 ML 75 ML IV (08:45)
[2023-05-24 09:19] LABS: Glucometer 211 mg/dL (74-106)
[2023-05-24] MEDS: CEFAZOLIN SODIUM/DEXTROSE,ISO 2 GM/50 ML PIGGYBACK IV (09:36)
[2023-05-24] MEDS: BUPIVACAINE HCL 0.5% PF 50 MG/10 ML VIAL INJ (10:23)
[2023-05-24] MEDS: HEPARIN SODIUM (PORCINE) PF LOCK FLUSH 500 UNIT/5 ML SYRINGE INJ ×2 (10:23)
--- NOTE | 2023-05-24 11:27 | XR_ITS ---
The [address] [address] Patient Name: VENANCIO BERNAL MRN: [id number] date: 1960 Sex: F Assigned Patient Location: [facility] Current Patient Location: [facility] Accession/Order Number: [id number] Exam Date: 05/24/2023 11:37 Report Date: 05/24/2023 11:52 At the request of: REID SHIPLEY Procedure: XR chest 1V EXAMINATION: XR chest 1V HISTORY: port placement COMPARISON: XR chest 04/22/2023 FINDINGS: LUNGS: Strandy opacities within the lung bases; moderate on right, mild on left. VASCULATURE: No increased pulmonary vasculature. PLEURA: No pneumothorax, effusion, or pleural thickening. CARDIAC: No cardiomegaly or cardiac silhouette abnormality. MEDIASTINUM: No visible mass or adenopathy. BONES: No fracture or visible bone lesion. OTHER: Right jugular Port-A-Cath placement with distal tip in superior vena cava at the cavoatrial junction. XR/XR chest 1V IMPRESSION: 1. Right Port-A-Cath placement appearing in good position. No pneumothorax. 2. Moderate bibasilar atelectasis versus infiltrates; new since prior study. Electronically authenticated by: LYRIC PADRON Date: 05/24/2023 11:52
== END 2023-05-24 12:11 | disposition home or self-care (01) ==
PROVIDERS: PCP Family Medicine; Visit Provider Surgery
PROC: (CPT 532; principal; 2023-05-24 09:25)
DX: C25.9 Malignant neoplasm of pancreas, unspecified (principal); D64.9 Anemia, unspecified; J44.9 Chronic obstructive pulmonary disease, unspecified; I25.10 Atherosclerotic heart disease of native coronary artery without angina pectoris; I50.9 Heart failure, unspecified; Z79.02 Long term (current) use of antithrombotics/antiplatelets; E78.00 Pure hypercholesterolemia, unspecified; Z86.73 Personal history of transient ischemic attack (TIA), and cerebral infarction without residual deficits; E11.319 Type 2 diabetes mellitus with unspecified diabetic retinopathy without macular edema; I11.0 Hypertensive heart disease with heart failure; F17.210 Nicotine dependence, cigarettes, uncomplicated; Z89.412 Acquired absence of left great toe; Z79.84 Long term (current) use of oral hypoglycemic drugs; Z79.4 Long term (current) use of insulin; E66.9 Obesity, unspecified; Z68.38 Body mass index [BMI] 38.0-38.9, adult; I87.8 Other specified disorders of veins
CPT/HCPCS: 36561; 36415; 71045; 76000; 82948; C1778; J0665; J0690; J1100; J1642; J2250; J2405; J2704; J3010

== ENCOUNTER 2023-07-21 10:26 | Outpatient (OUT) | payer OTHER, SELFPAY ==
[2023-07-22 11:09] LABS: CA 19-9 2458 U/mL (0-35); CEA 11.3 ng/mL (0.0-4.7)
== END 2023-07-21 10:27 | disposition home or self-care (01) ==
LOC: LAB 10:29
PROVIDERS: PCP Family Medicine
DX: C25.9 Malignant neoplasm of pancreas, unspecified (principal)
CPT/HCPCS: 36415; 82378; 86300; 86301

== ENCOUNTER 2023-08-26 06:54 | Emergency (ER) | payer MEDICARE, OTHER, SELFPAY ==
[2023-08-26] VITALS (7 sets, daily range): BP systolic 110–188; BP diastolic 48–94; PULSE 79–134; TEMP 36.5–37.2; O2SAT 98–100; BMI 34.4
--- OUTSIDE RECORDS SUMMARY | 2023-08-26 07:05 | XMS_ITS | CCD ---
Author Organization [facility] Care Team Providers Care Ergonomics Engineer Name Role Phone CHARMAINE SETH Admitting Unavailable CHARMAINE SETH Attending Unavailable ISRA SOLOMON Primary Care Unavailable ISRA SOLOMON Referring Unavailable Luc Vargas Unavailable MAST [...] ., DR YUNI Tony Primary Care Unavailable GREGORIA, SHABBIR Admitting Unavailable GREGORIA, SHABBIR Attending Unavailable GREGORIA, SHABBIR Consulting Unavailable ELIUD ., DR YUNI Tony Primary Care Unavailable MD Yuni Mast Primary Care Provider [phone] MD Luc Vargas Attending Provider MD Yuni Mast Primary Care Provider MD Luc Vargas Attending Provider [phone] Lázaro Riddle. Primary Care Physician [phone] MD Luc Vargas Attending Provider MD Lázaro Riddle Primary Care Provider MD Luc Vargas Admit Provider [phone] MD Reyes Hamilton Other Provider COLE MINAYA Attending Unavailable COLE MINAYA Referring Unavailable COLE MINAYA Attending Unavailable COLE MINAYA Attending Unavailable COLE MINAYA Attending Unavailable COLE MINAYA Attending Unavailable Lázaro Riddle MD Primary Care Provider [phone] Lázaro Riddle MD Primary Care Provider [phone] LUC TONY Attending Unavailable SHAILESH MIRANDA Admitting Unavailable TY LEDESMA Referring Unavailable LÁZARO RIDDLE Primary Care Unavailable ANGEL BURROWS Consulting Unavailable KARIN CRONIN Consulting Unavailable REID FLORES Consulting Unavailable DONNIE SUAREZ Attending Unavailable LÁZARO RIDDLE Primary Care Unavailable Lázaro Riddle MD Primary Care Provider EDISON CHAVES Attending Unavailable LÁZARO RIDDLE Primary Care Unavailable LÁZARO RIDDLE Primary Care Unavailable EDISON CHAVES Admitting Unavailable EDISON CHAVES Attending Unavailable LÁZARO RIDDLE Primary Care Unavailable CATIA LYON Referring Unavailable VENKATESH LÁZAROEAMON JANE Primary Care Unavailable TEALEJANDRA Zheng, CRISTO Referring Unavailable STEPHON RIDDLEUEL LUCINDA Primary Care Unavailable TEALEJANDRA Zheng CRISTO Attending Unavailable CATIA LYON Referring Unavailable LÁZARO RIDDLE Primary Care Unavailable MD Lázaro Riddle Primary Care Provider MD Luc Vargas Attending Provider [phone] Lázaro Riddle Primary Care Unavailable Luc Vargas Admitting Unavailable Luc Vargas Attending Unavailable Luc Vargas Admitting Unavailable Sam, Luc Attending Unavailable Lázaro Riddle Primary Care Unavailable Bucarlosredrea, Luc Admitting Unavailable Sam, Luc Attending Unavailable Reyes Hamilton Unavailable Lázaro Riddle Primary Care Unavailable Adamowicz, Francine Attending Unavailable Adamowicz, Francine Attending Unavailable Adamowicz, Francine Attending Unavailable Lázaro Riddle Attending Unavailable Lázaro Riddle Attending Unavailable Lázaro Riddle Attending Unavailable Lázaro Riddle Attending Unavailable Adamowicz, Francine Attending Unavailable Lázaro Riddle Attending Unavailable Lázaro Riddle Attending Unavailable Lázaro Riddle Attending Unavailable NILLReid Attending Unavailable NILLReid Attending Unavailable NILReid Velázquez Referring Unavailable Lázaro Riddle Attending Unavailable Lázaro Riddle Attending Unavailable Candis Wood Attending Unavailable Lázaro Riddle Attending Unavailable Lázaro Riddle Attending Unavailable Lázaro Riddle Attending Unavailable Lázaro Riddle Attending Unavailable Lázaro Riddel Attending Unavailable CLOBETHANY GLYNN Attending Unavailable Adamowicz, Francine Attending Unavailable Adamowicz, Francine Attending Unavailable CLOBETHANY GLYNN Attending Unavailable Beverley Velarde Attending Unavailable Adamowicz, Francine Attending Unavailable Adamowicz, Francine Attending Unavailable Adamowicz, Francine Admitting Unavailable Adamowicz, Francine Attending Unavailable Adamowicz, Francine Attending Unavailable Lázaro Riddle Referring Unavailable Adamowicz, Francine Attending Unavailable Adamowicz, Francine Attending Unavailable CLOBETHANY GLYNN Attending Unavailable Adamowicz, Francine Attending Unavailable Adamowicz, Francine Attending Unavailable Adamowicz, Francine Attending Unavailable Adamowicz, Farncine Admitting Unavailable Adamowicz, Francine Attending Unavailable Adamowicz, Francine Attending Unavailable Adamowicz, Francine Attending Unavailable Adamowicz, Francine Attending Unavailable Lázaro Riddle Admitting Unavailable Lázaro Riddle Admitting Unavailable NILL, Reid Pinto Attending Unavailable Lázaro Riddle Attending Unavailable Lázaro Riddle Attending Unavailable Lázaro Riddle Attending Unavailable DolceCole Attending Unavailable Dolce, Cole D Referring Unavailable Dolce, Cole D Admitting Unavailable Felix Andrew. Attending Unavaila ble Felix Andrew. Referring Unavaila ble Felix Andrew. Admitting Unavaila ble Adamowicz, Francine Attending Unavailable Adamowicz, Francine Referring Unavailable Adamowicz, Francine Admitting Unavailable Adamowicz, Francine Attending Unavailable Adamowicz, Francine Admitting Unavailable Dolce, Cole D Admitting Unavailable Dolce, Cole D Attending Unavailable Nina, Candis L Admitting Unavailable Nina, Candis L Attending Unavailable Dolce, Cole D Attending Unavailable Dolce, Cole D Admitting Unavailable Kendra Ortega Referring Unavailabl e Adamowicz, Francine Attending Unavailable KENRICK Scooby A Admitting Unavailable Judah Segura Consulting Unavailable Ulises COON Attending Judah Galvan Consulting Unavailable MD Judah Segura Consulting Unavailab le Judah Segura Consulting Unavailable Alejandro Gongora Attending Unavailable STANG, SENIOR ANALYTIC CONSULTANT Radha L Admitting Unavailable STANG, SENIOR ANALYTIC CONSULTANT Radha L Attending Unavailable NONE, XXXX Referring Unavailable Felix Andrew. Attending Unavaila Lázaro Mo Referring Unavailable Felix Andrew Attending Unavaila ble NONE, XXXX Referring Unavailable Felix Andrew. Attending Unavaila ble NONE, XXXX Referring Unavailable Felix Andrew. Attending Unavaila ble NONE, XXXX Referring Unavailable Felix Andrew. Attending Unavaila Lázaro Mo Referring Unavailable Felix Andrew. Attending Unavaila ble Felix Andrew. Referring Unavaila ble Felix Andrew. Admitting Unavaila ble Cornell, Francine Attending Unavailable Donnieowicz, Francine Attending Unavailable Donnieowicz, Francine Attending Unavailable Allergies Allergy Classification Reported Allergen(s) Allergy Type Date of Onset Reaction(s) Facility Albuterol (1 source) Albuterol; Translations: [albuterol] Drug Allergy Severe (severity modifier) (qualifier value) [facility] Sulfonamides (antibiotic) (2 sources) Sulfonamides (Antibiotic); Translations: [sulfa drugs] Drug Allergy 1 Mild (qualifier value) [facility] (20 sources) Albuterol; Translations: [albuterol] Drug Allergy 2 Severe (severity modifier) (qualifier value), Palpitations, Other [facility] (1 source) Albuterol Drug Allergy [facility] (1 source) Sulfonamides (Antibiotic) Drug allergy (disorder) 5 [facility] Rep[facility] (20 sources) Sulfonamides (Antibiotic); Translations: [sulfa drugs] Drug allergy Mild (qualifier value) [facility] (14 sources) Sulfonamides (Antibiotic); Translations: [SULFA (SULFONAMIDE ANTIBIOTICS)] Allergy to substance 3 Angioedema, Rash, Shortness of breath [facility] (1 source) Sulfonamides (Antibiotic) Propensity to adverse reactions to drug 4 Shortness Of Breath, Angioedema [facility] (1 source) Albuterol Drug Allergy 4 [facility] Repository Medications Current Medications Medication Drug Class(es) Dates Sig (Normalized) Sig (Original) Acetaminophen (10 sources) Start: 04-23-2023 acetaminophen (TYLENOL) tablet 650 [...] tablet (20 sources) HMG-CoA Reductase Inhibitor Start: 08-21-2023 take 1 tablet by mouth at bedtime atorvastatin 20 mg Tab 20 mg = 1 tab(s), Oral, Bedtime, # 90 tab(s), Refills(s) 3, [id number], cm, 08/09/23 9:10:00 EDT, Height/Length Dosing, 88.5, kg, 08/09/23 9:10:00 EDT, Weight Dosing Start Date: 08/21/23 Status: Ordered Start: 06-29-2022 take 1 tablet by [facility] at bedtime atorvastatin 20 mg Tab 20 mg = 1 tab(s), Oral, Bedtime, # 90 tab(s), Refills(s) 3, [id number], cm, 03/30/23 8:55:00 EST, Height/Length Dosing, 91.6, kg, 03/30/23 8:55:00 EST, Weight Dosing Start Date: 04/21/23 Status: Ordered take 1 tablet by [facility] once daily atorvastatin (Lipitor) 40 mg tablet Take 1 tablet (40 mg) by mouth once daily. 0 Active atropine sulfate 0.025 mg / diphenoxylate hydrochloride 2.5 mg oral tablet (17 sources) Anticholinergic, Cholinergic Muscarinic Antagonist, Antidiarrheal Start: 07-24-2023 take 2 tablets by mouth four times daily Lomotil 0.025 mg-2.5 mg Tab 2 tab(s), Oral, QID for loose stool, 120 tab(s), Refill(s) 2, [facility]/pharmacy #[id number], 157, cm, 07/24/23 13:40:00 EDT, Height/Length Dosing, 87.7, kg, 07/24/23 13:40:00 EDT, Weight Dosing Start Date: 07/24/23 Status: Ordered Start: 06-28-2023 take 2 tablets by [facility] four times daily Lomotil 0.025 mg-2.5 mg Tab 2 tab(s), Oral, QID for loose stool, 120 tab(s), Refill(s) 2, [facility]/pharmacy #[id number], 157, cm, 06/28/23 8:58:00 EDT, Height/Length Dosing, 85.1, kg, 06/28/23 8:58:00 EDT, Weight Dosing Start Date: 06/28/23 Status: Ordered Basaglar KwikPen (2 sources) Basaglar KwikPen Active clopidogrel 75 mg oral tablet (20 sources) [id number] Platelet Inhibitor Start: 08-21-2023 take 1 tablet by mouth once daily clopidogrel 75 mg Tab 75 mg = 1 tab(s), Oral, Daily, # 90 tab(s), Refills(s) 3, Pharmacy: [facility]/pharmacy #[id number], 157, cm, 08/09/23 9:10:00 EDT, Height/Length Dosing, 88.5, kg, 08/09/23 9:10:00 EDT, Weight Dosing Start Date: 08/21/23 Status: Ordered Start: 04-28-2023 take 1 tablet by les th once daily clopidogrel (PLAVIX) 75 MG tablet Take 1 tablet by mouth daily May resume in 5 days 30 tablet 3 04/28/2023 Active Start: 06-29-2022 End: 04-28-2023 take 1 tablet by mouth once daily clopidogrel 75 mg Tab 75 mg = 1 tab(s), Oral, Daily, # 90 tab(s), Refills(s) 3, Pharmacy: [facility]/pharmacy #[id number], 157, cm, 03/30/23 8:55:00 EST, Height/Length Dosing, 91.6, kg, 03/30/23 8:55:00 EST, Weight Dosing Start Date: 04/21/23 Status: Ordered Clopidogrel Bisu lfate Active dicyclomine hydrochloride 20 mg oral tablet (20 sources) Anticholinergic Start: 07-31-2023 take 1 tablet by mouth three times daily before mealtime dicyclomine 20 mg Tab 20 mg = 1 tab(s), Oral, TID, 30 to 60 minutes before meals, # 60 tab(s), Refills(s) 0, Pharmacy: [facility]/pharmacy #[id number], 157, cm, 07/31/23 10:24:00 EDT, Height/Length Dosing, 87.9, kg, 07/31/23 10:24:00 EDT, Weight Dosing Start Date: 07/31/23 Status: Ordered Start: 06-06-2023 take 1 tablet by les th three times daily before mealtime dicyclomine 20 mg Tab 20 mg = 1 tab(s), Oral, TID, 30 to 60 minutes before meals, # 60 tab(s), Refills(s) 0, Pharmacy: [facility]/pharmacy #[id number], 157, cm, 05/31/23 11:40:00 EST, Height/Length Dosing, 91.6, kg, 05/31/23 11:40:00 EST, Weight Dosing Start Date: 06/06/23 Status: Ordered doxycycline hyclate 100 mg oral capsule (1 source) Tetracycline-class Drug Start: 01-10-2023 End: 01-17-2023 take 1 capsule by mouth twice daily doxycycline hyclate 100 mg Cap 100 mg = 1 cap(s), Oral, BID, X 7 day(s), Refills(s) 0 Start Date: 01/10/23 Stop Date: 01/17/23 Status: Ordered 0.5 ml dulaglutide 1.5 mg/ml auto-injector (20 sources) GLP-1 Receptor Agonist Start: 11-16-2022 Dulaglutide (Trulicity) 0.75 mg/0.5 mL pen injector Active 0.75 MG SUBCUT every week March 01, 2023 1:00am Trulicity Active famotidine 40 mg oral tablet (1 source) Histamine-2 Receptor Antagonist Start: 01-13-2023 End: 01-20-2023 take 1 tablet by mouth once daily at bedtime Pepcid 40 mg Tab 40 mg = 1 tab(s), Oral, Once a day (at bedtime), X 7 day(s), # 7 tab(s), Refills(s) 0, Pharmacy: [facility]/pharmacy #[id number], 157, cm, 01/13/23 13:28:00 EDT, Height/Length [...] day(s), # 10 tab(s), Refills(s) 0, Pharmacy: [facility]/pharmacy #[id number], 157, cm, 01/13/23 13:28:00 EDT, Height/Length Dosing, 95, kg, 01/13/23 13:28:00 EDT, Weight Dosing Start Date: 01/13/23 Stop Date: 01/23/23 Status: Ordered Freestyle Brady 2 Flash Glucose Monitoring 14 Day System (Boyce) (20 sources) Start: 03-22-2023 Freestyle Brady 2 Flash Glucose Monitoring 14 Day System (Boyce) Freestyle Brady 2 Flash Glucose Monitoring 14 Day System (Boyce), See Instructions, 1 EA, 0, Freestyle Brady Flash Glucose Monitoring 14 Day System (Boyce), [facility] #[id number], Supply, 157, cm, 03/22/23 15:05:00 EST, Height/Length Dosing, 94.6, kg, 03/22/23 15:05:00 EST, Weight Dosing Start Date: 03/22/23 Status: Ordered Freestyle Brady 2 Flash Glucose Monitoring 14 Day System (Sensor) (20 sources) Start: 04-04-2023 Freestyle Bardy 2 Flash Glucose Monitoring 14 Day System (Sensor) Freestyle Brady 2 Flash Glucose Monitoring 14 Day System (Sensor), See Instructions, 6 EA, 1, Freestyle Brady Flash Glucose Monitoring 14 Day System (Sensor). Replace sensor every 14 days., [id number], Supply, 157, cm, 03/30/23 8:55:00 EST, Height/Length Dosing, 91.6, kg, 03/30/23 8:55:00 EST, Weight Dosing Start Date: 04/04/23 Status: Ordered Start: 03-22-2023 Freestyle Libr e 2 Flash Glucose Monitoring 14 Day System (Sensor) Freestyle Brady 2 Flash Glucose Monitoring 14 Day System (Sensor), See Instructions, 6 EA, 0, Freestyle Brady Flash Glucose Monitoring 14 Day System (Sensor). Replace sensor every 14 days., [id number], Supply, 157, cm, 03/22/23 15:05:00 EST, Height/Length Dosing, 94.6, kg, 03/22/23 15:05:00 EST, Weight Dosing Start Date: 03/22/23 Status: Ordered Freestyle Brady 2 Boyce (20 sources) Start: 05-31-2023 Freestyle Libr e 2 Boyce Freestyle Brady 2 Boyce, See Instructions, 1 EA, 1, use as directed, [facility]/pharmacy #[id number], Supply, 157, cm, 05/31/23 11:40:00 EST, Height/Length Dosing, 91.6, kg, 05/31/23 11:40:00 EST, Weight Dosing Start Date: 05/31/23 Status: Ordered furosemide 40 mg oral tablet (20 sources) Loop Diuretic Start: 04-26-2023 furosemide (LA SIX) injection 40 mg Start: 06-29-2022 take 1 tablet by les th once daily furosemide 40 mg Tab 40 mg = 1 tab(s), Oral, Daily, # 90 tab(s), Refills(s) 3, [id number], cm, 07/17/23 7:49:00 EDT, Height/Length Dosing, 84.2, kg, 07/17/23 7:49:00 EDT, Weight Dosing Start Date: 07/17/23 Status: Ordered Furosemide Activ e glipiZIDE 10 mg oral tablet (20 sources) Sulfonylurea Start: 06-29-2022 take 1 tablet by mouth twice daily glipiZIDE 10 mg Tab 10 mg = 1 tab(s), Oral, BID, # 180 tab(s), Refills(s) 3, [id number], cm, 03/30/23 8:55:00 EST, [...] UNIT SUBCUT Twice daily March 01, 2023 1:00am Start: 02-17-2023 Start: 01-24-2023 Start: 01-03-2023 Lantus Active lisinopril 30 mg oral tablet (20 sources) Angiotensin Converting Enzyme Inhibitor Start: 06-29-2022 take 1 tablet by mouth once daily lisinopril 30 mg Tab 30 mg = 1 tab(s), Oral, Daily, # 90 tab(s), Refills(s) 3, Pharmacy: [facility]/pharmacy #[id number], 157, cm, 03/30/23 8:55:00 EST, Height/Length Dosing, 91.6, kg, 03/30/23 8:55:00 EST, Weight Dosing Start Date: 04/21/23 Status: Ordered Lisinopril Activ e loperamide hydrochloride 2 mg oral tablet (17 sources) Opioid Agonist Start: 06-28-2023 Immodium A-D 2 mg Tab Refills(s) 0 Start Date: 06/28/23 Status: Ordered 100 ml magnesium sulfate 10 mg/ml injection (1 source) Start: 04-23-2023 take 1000 mg intravenously every hour as needed 1,000 mg, IntraVENous, at 100 mL/hr, Administer over 1 Hours, PRN, Other, Per IV Magnesium Replacement Protocol, Starting on Mon04/23/23 at 1325 Mg Lab & nbsp; Repla cement Action 1.4- 1.6 & nbsp; 1 gram IVPB x 2 doses &nbsp ; &nb sp; & nbsp; &nbsp ; &nb sp; & nbsp; &nbsp ; (2 gram Total) 1.0- 1.3 & nbsp; 1 gram IVPB x 4 doses &nbsp ; &nb sp; & nbsp; &nbsp ; &nb sp; & nbsp; &nbsp ; (4 gram Total) <1.0 &nbs p; &n bsp; CALL PHYSICIAN and &nbs p; &n bsp; &nbs p; &n bsp; 1 gram IVPB x 4 doses &nbs p; &n bsp;(4 gram Total) &nbs p;Infuse at 1 gram/hr. Re peat Mag level next AM. Protoco l not for use in patients with CrCl less than 30 mL/min. metFORMIN hydrochloride 500 mg oral tablet (20 sources) Biguanide Start: 07-17-2023 take 2 tablets by mouth twice daily MetFORMIN (Eqv-Glucophage XR) 500 mg oral tablet, extended release See Instructions, TAKE 2 TABLETS BY MOUTH TWICE A DAY, # 360 tab(s), Refills(s) 0, Pharmacy: [id number], 157, cm, 08/23/23 8:36:00 EDT, Height/Length Dosing, 85.1, kg, 08/23/23 8:36:00 EDT, Weight Dosing Start Date: 08/24/23 Status: Ordered Start: 04-14-2023 take 2 tablets by mo uth twice daily at mealtime metFORMIN XR 500 mg 24 hr tablet Take 2 tablets (1,000 mg) by mouth 2 times a day with meals. 0 04/14/2023 Active Start: 03-01-2023 take 500 mg by mouth twice manjeet ly Metformin Active 500 MG PO Twice daily March 01, 2023 1:00am Start: 10-17-2022 take 2 tablets by mo [facility] twice daily MetFORMIN (Eqv-Glucophage XR) 500 mg oral tablet, extended release See Instructions, TAKE 2 TABLETS BY MOUTH TWICE A DAY, # 360 tab(s), Refills(s) 0, Pharmacy: [id number], 157, cm, 03/30/23 8:55:00 EST, Height/Length Dosing, 91.6, kg, 03/30/23 8:55:00 EST, Weight Dosing Start Date: 04/14/23 Status: Ordered take 2 tablets by [facility] twice daily metFORMIN (GLUCOPHAGE-XR) 500 MG extended release tablet Take 2 tablets by mouth 2 times daily 0 Active metFORMIN HCl Ac tive 1 ml morphine sulfate 4 mg/ml injection (1 source) Opioid Agonist Start: 04-23-2023 morphine sulfate (PF) injection 4 mg mupirocin 0.02 mg/mg topical ointment (4 sources) RNA Synthetase Inhibitor Antibacterial Start: 03-01-2023 Mupirocin Active APPLIC TOPICAL March 01, 2023 1:00am ondansetron 8 mg oral tablet (20 sources) Serotonin-3 Receptor Antagonist Start: 06-06-2023 take 1 tablet by mouth three times daily as needed for nausea ondansetron 8 mg Tab 8 mg = 1 tab(s), Oral, TID, PRN Nausea/Vomiting, # 30 tab(s), Refills(s) 2, Pharmacy: [facility]/pharmacy #[id number], 157, cm, 05/31/23 11:40:00 EST, Height/Length Dosing, 91.6, kg, 05/31/23 11:40:00 EST, Weight Dosing Start Date: 06/06/23 Status: Ordered pantoprazole 40 mg delayed release oral tablet (20 sources) Proton Pump Inhibitor Start: 08-21-2023 take 1 tablet by mouth twice daily Pantoprazole [address] Tab See Instructions, TAKE 1 TABLET BY MOUTH TWICE A DAY, # 180 tab(s), Refills(s) 0, Pharmacy: [id number], 157, cm, 08/23/23 8:36:00 EDT, Height/Length Dosing, 85.1, kg, 08/23/23 8:36:00 EDT, Weight Dosing Start Date: 08/24/23 Status: Ordered Start: 07-25-2023 take 40 mg by mouth once daily Pantoprazole Active 40 MG PO Daily July 25, 2023 12:00am Start: 05-23-2023 take 1 tablet by les th twice daily Pantoprazole [address] Tab 40 mg, Oral, BID, # 180 tab(s), Refills(s) 0, [id number] 157, cm, 05/18/23 9:43:00 EST, [...] Start: 04-28-2023 take 1 tablet by les twice daily before mealtime pantoprazole (PROTONIX) 40 MG tablet Take 1 tablet by mouth 2 times daily (before meals) 60 tablet 3 04/28/2023 Active Start: 04-25-2023 pantoprazole ( PROTONIX) tablet 40 mg predniSONE 20 mg oral tablet (4 sources) Start: 01-13-2023 End: 01-17-2023 take 3 tablets by mouth once daily predniSONE 20 mg Tab 3, Oral, Daily, X 4 day(s), # 12 tab(s), Refills(s) 0, [id number] 157, cm, 01/13/23 13:28:00 EDT, Height/Length [...] with provider prior to any invasive procedure. gadoteridol (PROHANCE) injection 16 mL (1 source) Start: 04-24-2023 End: 04-24-2023 gadoteridol (PROHANCE) injection 16 mL 500 ml glucose 50 mg/ml / potassium chloride 0.02 meq/ml / sodium chloride 4.5 mg/ml injection (1 source) Start: 04-23-2023 End: 04-24-2023 IntraVENous, at 125 mL/hr, CONTINUOUS, Starting on 04/23/23 at 1345 Insulin Lispro (20 sources) Insulin Analog Start: 07-09-2023 End: 07-09-2023 Insulin Lispro Sliding Scale 0-10 Unit(s), Injection-Insulin, SubCutaneous, Start date 07/09/23 6:01:00 PM EDT Start Date: 07/09/23 Stop Date: 07/09/23 Status: Completed Start: 07-09-2023 End: 07-09-2023 Insulin Lispro Sliding Scale 0-10 Unit(s), Injection-Insulin, SubCutaneous, Start date 07/09/23 12:01:00 PM EDT Start Date: 07/09/23 Stop Date: 07/09/23 Status: Completed Start: 05-22-2023 Start: 04-24-2023 End: 04-26-2023 insulin lispro (HUMALOG) inj ection vial 0-4 Units Start: 04-20-2023 inject 2-10 [...] day., # 15 mL, Refills(s) 0, Pharmacy: [facility]/pharmacy #[id number], 157, cm, 03/22/23 15:05:00 EST, Height/Length [...] 8U, 351-400 = give 10U 0 Active insulin, regular, human 100 unt/ml injectable solution (1 source) Insulin Start: 04-25-2023 End: 04-25-2023 insulin regular (HUMULIN R;NOVOLIN R) injection 6 Units Start: 04-25-2023 End: 04-25-2023 insulin regular (HUMULIN R;N OVOLIN R) injection 6 Units iopamidol (ISOVUE-370) 76 % injection 75 mL (1 source) Start: 04-24-2023 End: 04-24-2023 iopamidol (ISOVUE-370) 76 % injection 75 mL metoprolol tartrate 100 mg oral tablet (20 sources) beta-Adrenergic Nayan Start: 07-09-2023 End: 07-10-2023 metoprolol tartrate 100 mg Tab 50 mg = 0.5 tab(s), Tab, Oral, Start date 07/10/23 9:00:00 AM EDT, 07/06/23 22:31:00 EDT Start Date: 07/10/23 Stop Date: 07/10/23 Status: Completed Start: 10-06-2022 take 1 tablet by les twice daily metoprolol tartrate 100 mg Tab 100 mg = 1 tab(s), Oral, BID, # 180 tab(s), Refills(s) 3, Pharmacy: [facility]/pharmacy #[id number], 157.5, cm, 08/17/22 13:22:00 EDT, Height/Length Dosing, 97.1, kg, 08/17/22 13:22:00 EDT, Weight Dosing Start Date: 10/06/22 Status: Ordered Metoprolol Tartr ate Active polyethylene glycol 3350 08061 mg powder for oral solution (1 source) Osmotic Laxative Start: 04-23-2023 17 g, Oral, DAILY PRN, Starting on 04/23/23 at 1325, Until Discontinued, Constipation First line therapy for constipation potassium chloride 20 meq extended release oral tablet (3 sources) Start: 08-25-2023 take 2 tablets by mouth once daily potassium chloride 20 mEq ER Tab 40 mEq = 2 tab(s), Oral, Daily, take until next OV with Dr. Sarabia 09/06/23, # 30 tab(s), Refills(s) 0, Pharmacy: [facility]/pharmacy #[id number], 157, cm, 08/25/23 8:03:00 EDT, Height/Length Dosing, 89.5, kg, 08/25/23 8:03:00 EDT, Weight Dosing Start Date: 08/25/23 Status: Ordered Start: 04-23-2023 potassium chlo ride (KLOR-CON M) extended release tablet 40 mEq 10 ml sodium bicarbonate 84 mg/ml injection (1 source) Start: 04-26-2023 End: 04-26-2023 sodium bicarbonate 8.4 % injection 50 mEq 50 ml sodium chloride 9 mg/m l injection (8 sources) Start: 04-24-2023 End: 04-24-2023 sodium chloride 0.9 % bolus 80 mL Start: 04-24-2023 0.9 % sodium c hloride infusion Start: 04-24-2023 End: 04-24-2023 sodium chloride flush 0.9 % injection 10 mL Start: 04-23-2023 take 1 dose intraven ously twice daily 5-40 mL, IntraVENous, EVERY 12 HOURS SCHEDULED (2 times per day), First dose on 04/23/23 at 2100, Until Discontinued For Line Patency: [...] interruptions/ long duration, Starting on 04/23/23 at 1325 For piggyback infusion, administer at [...] needed 10 mL, IntraVENous, PRN, Starting on 04/23/23 [...] Daily, # 90 tab(s), Refills(s) 3, Pharmacy: [facility]/pharmacy #[id number], 157, cm, 03/30/23 8:55:00 EST, Height/Length Dosing, 91.6, kg, 03/30/23 8:55:00 EST, Weight Dosing Start Date: 04/21/23 Status: Ordered Spironolactone A ctive Problems Active Problems Problem Classification Problem Date Documented Da te Episodic/Chronic Acute and unspecified renal failure (1 source) Acute renal failure syndrome; Translations: [Acute kidney failure, unspecified] Onset: 4 Episodic Acute cerebrovascular disease (10 sources) Cerebral infarction, unspecified; Translations: [Cerebrovascular accident] Onset: 2 Chronic Allergic reactions (20 sources) Allergic disposition; Translations: [Allergy, unspecified, initial encounter] Onset: 3 Episodic Biliary tract disease (3 sources) Obstructive hyperbilirubinemia; Translations: [Obstruction of bile duct] Onset: 4 04-25-2023 Chronic Cancer of pancreas (20 sources) Malignant tumor of pancreas; Translations: [Malignant tumor of head of pancreas] Onset: 4 05-02-2023 Chronic Chronic obstructive pulmonary disease and bronchiectasis (20 sources) Chronic obstructive pulmonary disease, unspecified; Translations: [Chronic obstructive lung disease] Onset: 2 07-20-2022 Chronic Congestive heart failure; nonhypertensive (20 sources) Heart failure, unspecified; Translations: [Acute on chronic diastolic (congestive) heart failure] Onset: 2 06-17-2022 Chronic Comment on above: acute diastolic Coronary atherosclerosis and other heart disease (3 sources) Atherosclerotic heart disease of [place] coronary artery without angina pectoris; Translations: [Coronary arteriosclerosis] Onset: 1 04-23-2023 Chronic Coronary atherosclerosis and other heart disease (1 source) Coronary atherosclerosis and other heart disease; Translations: [Atherosclerosis of [place] arteries of left leg with ulceration of other part of foot] Onset: 3 Deficiency and other anemia (20 sources) Anemia; Translations: [Anemia, unspecified] Onset: 4 07-20-2022 Episodic Diabetes mellitus with complications (20 sources) Type 2 diabetes mellitus with unspecified diabetic retinopathy without macular edema; Translations: [Type 2 diabetes mellitus with unspecified complications] Onset: 2 Chronic Diabetes mellitus without complication (15 sources) Type 2 diabetes mellitus without complications; Translations: [Type 2 diabetes mellitus] Onset: 2 01-02-2023 Chronic Disorders of lipid metabolism (20 sources) Pure hypercholesterolemia, unspecified; Translations: [Hyperlipidemia, unspecified] Onset: 2 Chronic E Codes: Adverse effects of medical drugs (2 sources) Adverse reaction to drug; Translations: [Adverse effect of antineoplastic and immunosuppressive drugs, initial encounter] Onset: 4 Episodic Essential hypertension (20 sources) Hypertensive disorder; Translations: [Essential hypertension] Onset: 4 06-17-2022 Chronic Fluid and electrolyte disorders (4 sources) Dehydration; Translations: [Dehydration] Onset: 4 Episodic Gangrene (3 sources) Gangrene of toe of left foot; Translations: [Gangrene, not elsewhere classified] Episodic Gastroduodenal ulcer (except hemorrhage) (8 sources) Ulcer of duodenum; Translations: [Duodenal ulcer, unspecified as acute or chronic, without hemorrhage or perforation] Onset: 4 04-28-2023 Chronic Headache; including migraine (1 source) Headache; including migraine; Translations: [HEADACHE UNSPECIFIED] Onset: 2 Heart valve disorders (1 source) Combined rheumatic disorders of mitral, aortic and tricuspid valves; Translations: [COMB RHEUMAT D/O MITRL AORTC TRICSP] Onset: 2 Chronic Hypertension with complications and secondary hypertension (20 sources) Hypertensive heart disease with heart failure; Translations: [Hypertensive urgency] Onset: 2 Chronic Lymphadenitis (4 sources) Lymphadenopathy; Translations: [Generalized enlarged lymph nodes] Onset: 4 05-26-2023 Episodic Neoplasms of unspecified nature or uncertain behavior (3 sources) Neoplasm of uncertain behavior of pancreas; Translations: [Neoplasm of uncertain behavior of other specified digestive organs] Onset: 4 05-08-2023 Episodic Noninfectious gastroenteritis (2 sources) Noninfectious enteritis; Translations: [Noninfective gastroenteritis and colitis, unspecified] Onset: 4 Episodic Nonspecific chest pain (1 source) Chest pain; Translations: [Chest pain, unspecified] Onset: 4 Episodic Occlusion or stenosis of precerebral arteries (13 sources) Carotid artery stenosis; Translations: [Occlusion and stenosis of unspecified carotid artery] Onset: 2 Resolved: 2 Chronic Other aftercare (20 sources) Post-discharge follow-up 05-02-2023 Episodic Other aftercare (2 sources) Procedure carried out on subject; Translations: [Encounter for adjustment and management of vascular access device] Onset: 4 Episodic Other aftercare (7 sources) Seen by palliative care medicine service 06-08-2023 Episodic Other and unspecified benign neoplasm (1 source) Benign carcinoid tumor; Translations: [Benign carcinoid tumor of the bronchus and lung] Onset: 4 Episodic Other circulatory disease (20 sources) History of cerebrovascular accident 08-17-2022 Episodic Other circulatory disease (1 source) Other disorder of circulatory system Episodic Other circulatory disease (20 sources) Difficult venous access 05-23-2023 Episodic Other circulatory disease (1 source) History of transient ischemic attack; Translations: [Personal history of transient ischemic attack (TIA), and cerebral infarction without residual deficits] Onset: 4 Episodic Other connective tissue disease (1 source) Pain in unspecified foot Episodic Other diseases of veins and lymphatics (1 source) Disorder of vein; Translations: [Other specified disorders of veins] Onset: 4 Episodic Other gastrointestinal disorders (20 sources) Diarrhea; Translations: [Diarrhea, unspecified] Onset: 4 06-08-2023 Episodic Other lower respiratory disease (12 sources) Nodule of lung; Translations: [Solitary pulmonary nodule] Onset: 4 05-19-2023 Episodic Other lower respiratory disease (4 sources) Solitary pulmonary nodule; Translations: [Solitary pulmonary nodule] Onset: 4 Episodic Other nervous system disorders (20 sources) Pain due to neoplastic disease 05-18-2023 Chronic Other nutritional; endocrine; and metabolic disorders (1 source) Obesity, unspecified; Translations: [OBESITY UNSPECIFIED] Onset: 2 Chronic Other nutritional; endocrine; and metabolic disorders (1 source) Body mass index (BMI) 40.0-44.9, adult; Translations: [BODY MASS INDEX BMI 40.0-44.9 ADULT] Onset: 2 Chronic Other nutritional; endocrine; and metabolic disorders (20 sources) Body mass index 30+ - obesity 01-13-2023 Chronic Other nutritional; endocrine; and metabolic disorders (20 sources) Obesity caused by energy imbalance; Translations: [Other obesity due to excess calories] Onset: 4 01-13-2023 Chronic Other nutritional; endocrine; and metabolic disorders (1 source) Obesity; Translations: [Obesity, unspecified] Onset: 4 Chronic Other nutritional; endocrine; and metabolic disorders (1 source) Hypermagnesemia; Translations: [Hypermagnesemia] Onset: 4 Chronic Other screening for suspected conditions (not mental disorders or infectious disease) (1 source) Imaging result abnormal; Translations: [Abnormal findings on diagnostic imaging of other specified body structures] Chronic Pancreatic disorders (not diabetes) (3 sources) Mass of pancreas; Translations: [Other specified diseases of pancreas] Onset: 4 04-25-2023 Episodic Peripheral and visceral atherosclerosis (14 sources) Peripheral vascular disease, unspecified; Translations: [Peripheral vascular disease] Onset: 3 Chronic Pulmonary heart disease (2 sources) Pulmonary hypertension; Translations: [Pulmonary hypertension, unspecified] Onset: 1 04-23-2023 Chronic Residual codes; unclassified (1 source) H/O: artificial organ/tissue; Translations: [Presence of other specified functional implants] Chronic Residual codes; unclassified (20 sources) Device in situ 06-07-2023 Episodic Residual codes; unclassified (1 source) Tobacco user; Translations: [Tobacco use] Onset: 4 Episodic Skin and subcutaneous tissue infections (20 sources) Infection of big toe 01-02-2023 Episodic Substance-related disorders (20 sources) Nicotine dependence, cigarettes, uncomplicated; Translations: [Smoker] Onset: 2 06-17-2022 Chronic Comment on above: Added secondary to d ocumentation in Social History. Unclassified (1 source) CONTACT W/AND (SUSP) EXPOS COVID-19; Translations: [CONTACT W/AND (SUSP) EXPOS COVID-19] Onset: 2 Unclassified (20 sources) Patient encounter status 05-18-2023 Unclassified (1 source) At risk for impaired skin integrity 07-07-2023 Comment on above: Problem added based on documenting Ned score less than or equal to 18, rash, or malnutrition. Past or Other Problems Problem Classification Problem Date Documented Da te Episodic/Chronic Deficiency and other anemia (1 source) Anemia, unspecified; Translations: [ANEMIA UNSPECIFIED] Onset: 11-23-2021 Episodic Malaise and fatigue (4 sources) Weakness; Translations: [WEAKNESS] Onset: 08-02-2021 Episodic Other aftercare (1 source) correction (current) use of aspirin; Translations: [GROUP HOME CURRENT USE OF ASPIRIN] Onset: 11-23-2021 Episodic Other aftercare (1 source) correction (current) use of oral hypoglycemic drugs; Translations: [ARCHIVAL RECORDS CLERK USE ORAL HYPOGLYCEMIC DX] Onset: 11-23-2021 Episodic Other aftercare (1 source) 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; Translations: [OTH ARCHIVAL RECORDS CLERK CURRENT DRUG THERAPY] Onset: 11-23-2021 Episodic Other circulatory disease (1 source) Personal history of transient ischemic attack (TIA), and cerebral infarction without residual deficits; Translations: [PERS HX TIA AND CI NO RESID DEFICIT] Onset: 11-23-2021 Episodic Respiratory failure; insufficiency; arrest (adult) (1 source) Acute respiratory failure with hypoxia; Translations: [ACUTE RESPIRATORY FAIL W/HYPOXIA] Onset: 11-23-2021 Episodic Unclassified (8 sources) Onset: 05-08-2023 Resolved: 05-19-2023 05-08-2023 Results Test Name Value Interpretation Reference Range Facil ity CHEMISTRYOrdered By: SYSTEM SYSTEM on 08-25-2023 Troponin 21.40 pg/mL Normal 10.10 - 27.10 pg/mL Remisol Chem Comment on above: Interpretive Data: T he 95% CI (Confidence Interval) PPV (Positive Predictive Value) for myocardial infarction in females is 38 pg/mL, in males 51 pg/mL. The results should be used in conjunction with clinical conditions of myocardial infarction. (Access High Sensitivity Troponin I Instructions For Use, Sujata Austin, November 2017) Albumin [Mass/Vol] 3.0 g/dL Low 3.3 - 5.0 gm/dL R emisol Chem Albumin/Globulin [Mass ratio] 1.0 {ratio} Low 1.1 - 2.2 Remisol Chem ALP [Catalytic activity/Vol] 202 [iU]/d High 21 - 98 Int._Unit/L Remisol Chem ALT No additional P-5'-P [Catalytic activity/Vol] 18 [iU]/d Normal 6 - 46 Int._Unit/L Remisol Chem Anion gap [Moles/Vol] 12 mmol/L Normal 6 - 16 mEq/L R emisol Chem AST [Catalytic activity/Vol] 73 [iU]/d High 5 - 43 Int._Unit/L Remisol Chem Bilirubin [Mass/Vol] 0.6 mg/dL Normal 0.0 - 1.1 mg/dL Remisol Chem Bilirubin.direct [Mass/Vol] 0.3 mg/dL Normal 0.0 - 0.4 mg/dL Remisol Chem Bilirubin.indirect [Mass or moles/Vol] 0.3 mg/dL Normal 0.1 - 0.9 mg/dL Remisol Chem Calcium [Mass/Vol] 7.4 mg/dL Low 8.9 - 11. 1 mg/dL Remisol Chem Chloride [Moles/Vol] 111 mmol/L Normal 101 - 1 11 mmol/L Remisol Chem CO2 [Moles/Vol] 25 mmol/L Normal 21 - 31 mmol/L Remis ol Chem Creatinine [Mass/Vol] 0.8 mg/dL Normal 0.5 - 1.3 mg/d L Remisol Chem eGFR 82 mL/min/1.73 m2 Normal >=59mL/min /1.73 m2 Remisol Chem Globulin (S) [Mass/Vol] 3.0 g/dL Normal 1.4 - 4.0 gm/dL Remisol Chem Glucose [Mass/Vol] 88 mg/dL Normal 55 - 199 mg/dL Re misol Chem Lipase [Catalytic activity/Vol] 127 U/L High 13 - 58 unit/L Remisol Chem Potassium [Moles/Vol] 2.9 mmol/L Low 3.5 - 5.3 mmol/L Remisol Chem Protein [Mass/Vol] 6.0 g/dL Normal 6.0 - 7.8 gm/dL R emisol Chem Sodium [Moles/Vol] 145 mmol/L Normal 135 - 145 mmol/L Remisol Chem Troponin 22.40 pg/mL Normal 10.10 - 27.10 pg/mL Remisol Chem Comment on above: Interpretive Data: T he 95% CI (Confidence Interval) PPV (Positive Predictive Value) for myocardial infarction in females is 38 pg/mL, in males 51 pg/mL. The results should be used in conjunction with clinical conditions of myocardial infarction. (Access High Sensitivity Troponin I Instructions For Use, Sujata Austin, November 2017) Urea nitrogen [Mass/Vol] 20 mg/dL Normal 5 - 21 mg/dL Remisol Chem Urea nitrogen/Creatinine [Mass ratio] 25 mg/mg High 10 - 20 Remisol Chem CHEMISTRYOrdered By: Sandra Perez on 08-25-2023 Natriuretic peptide B (Bld) [Mass/Vol] 606 pg/mL High 5 - 80 pg/mL [facility] COAGULATIONOrdered By: Butch Marin on 08-25-2023 aPTT Coag (PPP) [Time] 28.8 s Normal 25.1 - 36.5 second(s) [facility] Auto Coag Comment on above: Interpretive Data: P arameter 15 days - 4 weeks 1 - 5 months 6 - 11 months 1 - 5 years 6 - 10 years 11 - 17 years PTT Mean: 35.4 (27.6-45.6) Mean: 33.5 (24.8-40.7) Mean: 32.4 (25.1-40.7) Mean: 31.6 (24.0-39.2) Mean: 31.6 (26.9-38.7) Mean: 31.0 (24.6-38.4) Pediatric Reference ranges were obtained from a study by Kenan Lopez et al. prepared from 1437 samples obtained at 7 different centers using the same coagulation reagent and instrumentation as [facility]. Currently there are no coagulation studies available worldwide for children to 14 days, and no normal ranges. Heparin therapeutic range (represented by Anti-Factor Xa activity of 0.2 - 0.4 U/mL) corresponds to PTT of 56.6 - 109.0 sec. INR Coag (PPP) [Relative time] 1.04 {INR} Invalid Interpretation Code [facility] Auto Coag Comment on above: Interpretive Data: I NR results are specifically intended to assess patients stabilized on long-term Anticoagulation therapy suggested INR s Less Intensive Anticoagulation 2.0 3.0 Conventional Range 3.0 4.5 PT Coag (PPP) [Time] 11.7 s Normal 9.4 - 1 2.5 second(s) [facility] Auto Coag Comment on above: Interpretive Data: 1 5 days - 4 weeks 1 - 5 months 6 -11 months 1-5 years 6-10 years 11 -17 years Mean: 11.2 (9.5-12.6) Mean: 11.0 (9.7-12.8) Mean: 11.0 (9.8-13.0) Mean: 11.3 (9.9-13.4) Mean: 11.7 (10.0-14.6) Mean: 11.8 (10.0 - 14.1) Pediatric Reference ranges were obtained from a study by jolene Ingram al. prepared from 1437 samples obtained at 7 different centers using the same coagulation reagent and instrumentation as [facility]. Currently there are no coagulation studies available worldwide for children to 14 days, and no normal ranges. HEMATOLOGYOrdered By: SYSTEM SYSTEM on 08-25-2023 Anisocytosis Ql (Bld) PRESENT *NA* (08/25/23 8:10 AM) Invalid Interpretation Code Remisol Heme Basophils/100 WBC (Bld) 0.3 % Normal 0.0 - 2.0 % Remisol Heme Basophils/Leukocytes Auto (Bld) [Pure # fraction] 0.0 E9/L Normal 0.0 - 0.2 E9/L Remisol Heme Eosinophils (Bld) [#/Vol] 0.1 E9/L Normal 0.0 - 0.5 E9/L Remisol Heme Eosinophils/100 WBC (Bld) 1.0 % Normal 0.0 - 8.0 % Remisol Heme Erythrocyte distribution width (RBC) [Ratio] 28.5 % High 10.9 - 14.2 % Remisol Heme Hematocrit (Bld) [Volume fraction] 23.3 % Low 34.0 - 46.0 % Remisol Heme Hemoglobin (Bld) [Mass/Vol] 7.5 g/dL Low 12.0 - 16.0 gm/dL Remisol Heme Lymphocytes (Bld) [#/Vol] 1.4 E9/L Normal 1.0 - 4.0 E9/L Remisol Heme Lymphocytes/100 WBC (Bld) 18.8 % Normal 14.0 - 50.0 % Remisol Heme MCH (RBC) [Entitic mass] 27.5 pg Normal 27.0 - 34.0 pg Remisol Heme MCHC (RBC) [Mass/Vol] 32.2 g/dL Normal 31.4 - 36.0 gm/dL Remisol Heme MCV (RBC) [Entitic vol] 85.4 fL Normal 80.0 - 100.0 fL Remisol Heme Monocytes (Bld) [#/Vol] 0.2 E9/L Normal 0.2 - 1.0 E9/L Remisol Heme Monocytes/100 WBC (Bld) 2.4 % Low 4.0 - 14.0 % Remisol Heme Neutrophils (Bld) [#/Vol] 6.0 E9/L Normal 2.0 - 7.5 E9/L Remisol Heme Neutrophils/100 WBC (Bld) 77.5 % High 36.0 - 75.0 % Remisol Heme Platelet mean volume (Bld) [Entitic vol] 9.3 fL Normal 6.4 - 10.8 fL Remisol Heme Platelets (Bld) [#/Vol] 228.0 E9/L Normal 150.0 - 500.0 E9/L Remisol Heme RBC (Bld) [#/Vol] 2.7 E12/L Low 4.3 - 5.9 E12/L Re misol Heme RBC size Nom (Bld) SEE MORPHOLOGY *NA* (08/25/23 8:10 AM) Invalid Interpretation Code Remisol Heme WBC corrected for nucl RBC Auto (Bld) [#/Vol] 7.7 E9/L Normal 4.0 - 11.0 E9/L Remisol Heme ABO/Rhon 08-23-2023 ABO/Rh Positive Invalid Interpretation Code [facility] Comment on above: Performed By: #### 2 [id number] #### [facility] [address] [place] [address] ABO/Rh History Checkon 08-22 ABO/Rh History Check Verified Hx Blood Type Normal [facility] Comment on above: Performed By: #### 1 [id number] #### [facility] [address] [place] [address] ABSCon 08-23-2023 ABSC Gel Interp Negative Normal [facility] Comment on above: Performed By: #### 1 [id number] #### [facility] [address] [place] [address] BLOOD BANKOrdered By: Iron Lopez on 08-23-2023 ABO/Rh Interp Positive Invalid Interpretation Code [facility] BB Subsection ABSC Gel Interp Negative (08/23/23 2:59 PM) Normal [facility] BB Subsection Blood Bank ID#on 08-23-2023 BBID# [id number] Invalid Interpretation Code [facility] Comment on above: Performed By: #### 1 [id number] #### [facility] [address] [place] [address] CEAon 08-23-2023 CEA 6.1 ng/mL Invalid Interpretation Code [facility] Comment on above: Result Comment: 'NON -SMOKER < 2.5' 'SMOKER < 5.0' The concentration of CEA in a given specimen determined by different manufacturers can vary due to differences in assay methods and reagent specificity. Values obtained with different assay methods cannot be used interchangeably. The methodology used to perform this test was chemiluminescence using [employer]'s Access CEA reagent. Performed By: #### 2 [id number] #### [facility] [address] [place] [address] CHEMISTRYOrdered By: SYSTEM SYSTEM on 08-23-2023 CEA 6.1 ng/mL Invalid Interpretation Code Remisol Chem Comment [...] perform this test was chemiluminescence using [employer]'s Access CEA reagent. Consent for Treatmenton 08-02 Consent for Treatment [id number] Normal [facility] Oncology Progress Noteon Oncology Progress Note Chief Complaint Malignant neoplasm of pancreas; no concerns Diagnoses Pancreatic cancer (C25.9: Malignant neoplasm of pancreas, unspecified) Ordered: heparin flush, 500 unit(s) = 5 mL, Soln-IV, IV Push, Once PRN Other (see comment), Routine, Start date 08/22/23 14:42:00 EDT, 08/22/23 14:42:00 EDT CBC w/ Auto Diff Comprehensive Metabolic Panel Oncological History/ROS/PE/Assess ment and Plan 1. Pancreas cancer, (C25.9: Malignant neoplasm of pancreas, unspecified)Pancreati c cancer Adverse effect of antineoplastic and immunosuppressive drugs, initial encounter (T45.1X5A: Adverse effect of antineoplastic and immunosuppressive drugs, initial encounter) Chemotherapy induced diarrhea (K52.1: Toxic gastroenteritis and colitis) Oncological History/ROS/PE/Assess ment and Plan 62-year-old female referred to me by Dr. Yojana Riddle in [place]. Past medical history includes chronic diastolic heart [...] 2023. She was admitted to [facility] [place] she was found to have obstructive jaundice. [...] biopsies showed minor inflammation and no cancer. 05/18/[address] Chaves. Initially planned surgery then we decided instead to do some neopadjuvant treatment. Will start folfirinox. she is set up for lung biopsy for late next week. she had a clean heart cath recently dr andrew. no stents placed. 05/31/23 doing ok. She is gettinchemo today. she is very drwosy from the [facility]. still some abdominal discomfort chroncially and when she eats it is much worse Stooling is normal. Energy was terrible. her hb was 6.2 then got a unit of blood and improved quite a bit. She is scheduled for another unit monday. had lung biopsy last monday. AFTER SHE LEFT I GOT RESULTS OF HER LUNG BIOPSY. I finally got my hands on her lung pathology report. It notes CARCINOID tumor with low KI67. This is not consistent with her Pancreatic FNA that said adenocarcinoma.. 06/28/23 she is doing ok. delayed diarrhea, she takes immodium every morning and has diarrhea every night in the middle of the night. with immodium otherwise controlled. her immodium is expensive for her. not much neuropathy. she does well from energy perspective. 07/24/23 she is doing ok overall. Energy is pretty good except for when her sugar drops denies shortness of breath or chest pain she takes 2 lomotil in the morning and then does not have diarrhea. Every so often she might need to take it at night once, but not frequently denies n/v. appetite is good, she is gaining weight. Taste has changed, so some food isn't good anymore drinking water throughout the day no new pain. Not much neuropathy still no confu (more content not included)... Normal [facility] CBC w/ Auto Diffon 4 Anisocytosis Ql (Bld) PRESENT Invalid Interpretation Code [facility] Comment on above: Performed By: #### 2 [id number] #### [facility] [address] [place] [address] Band form neutrophils/100 WBC (Bld) 6 % Normal 0-6 [facility] Comment on above: Performed By: #### 2 [id number] #### [facility] [address] [place] [address] Basophils (Bld) [#/Vol] 0.1 E9/L Normal 0.0-0.2 [facility] Comment on above: Performed By: #### 2 [id number] #### [facility] [address] [place] [address] Eosinophils (Bld) [#/Vol] 0.2 E9/L Normal 0.0-0.5 [facility] Comment on above: Performed By: #### 2 [id number] #### [facility] [address] [place] [address] Eosinophils/100 WBC (Bld) 3.0 % Normal 0.0-8.0 [facility] Comment on above: Performed By: #### 2 [id number] #### [facility] [address] [place] [address] Erythrocyte distribution width (RBC) [Ratio] 28.5 % High 10.9-14.2 [facility] Comment on above: Performed By: #### 2 [id number] #### [facility] [address] [place] [address] Hematocrit (Bld) [Volume fraction] 22.9 % Low 34.0-46.0 [facility] Comment on above: Performed By: #### 2 [id number] #### [facility] [address] [place] [address] Hemoglobin (Bld) [Mass/Vol] 7.3 g/dL Low 12.0-16.0 [facility] Comment on above: Performed By: #### 2 [id number] #### [facility] [address] [place] [address] Hypochromia Auto Ql (Bld) PRESENT Invalid Interpretation Code [facility] Comment on above: Performed By: #### 2 [id number] #### [facility] [address] [place] [address] Lymphocytes (Bld) [#/Vol] 1.3 E9/L Normal 1.0-4.0 [facility] Comment on above: Performed By: #### 2 [id number] #### [facility] [address] [place] [address] Lymphocytes/100 WBC (Bld) 15.0 % Normal 14.0-50.0 [facility] Comment on above: Performed By: #### 2 [id number] #### [facility] [address] [place] [address] MCH (RBC) [Entitic mass] 27.3 pg Normal 27.0-34.0 [facility] Comment on above: Performed By: #### 2 [id number] #### [facility] [address] [place] [address] MCHC (RBC) [Mass/Vol] 32.0 g/dL Normal 31.4-36.0 [facility] Comment on above: Performed By: #### 2 [id number] #### [facility] [address] [place] [address] MCV (RBC) [Entitic vol] 85.3 fL Normal 80.0-100.0 [facility] Comment on above: Performed By: #### 2 [id number] #### [facility] [address] [place] [address] Metamyelocytes/Leukoc ytes Manual cnt (Bld) [Pure # fraction] 3 % High 0-0 [facility] Comment on above: Performed By: #### 2 [id number] #### [facility] [address] [place] [address] Monocytes (Bld) [#/Vol] 0.4 E9/L Normal 0.2-1.0 [facility] [facility] Comment on above: Performed By: #### 2 [id number] #### [facility] [address] [place] [address] Myelocytes/100 WBC (Bld) 1 % High 0-0 [facility] Comment on above: Performed By: #### 2 [id number] #### [facility] [address] [place] [address] Neutrophils (Bld) [#/Vol] 5.1 E9/L Invalid Interpretation Code [facility] Comment on above: Performed By: #### 2 [id number] #### [facility] [address] [place] [address] Nucleated cells (Bld) [#/Vol] 2 High 0-0 [facility] Comment on above: Performed By: #### 2 [id number] #### [facility] [address] [place] [address] Platelet 247.0 E9/L Normal 150.0-500.0 [facility] Comment on above: Performed By: #### 2 [id number] #### [facility] [address] [place] [address] Platelet mean volume (Bld) [Entitic vol] 9.5 fL Normal 6.4-10.8 [facility] Comment on above: Performed By: #### 2 617108 #### [facility] [address] [place] [address] Polychromasia LM Ql (Bld) PRESENT Invalid Interpretation Code [facility] Comment on above: Performed By: #### 2 [id number] #### [facility] [address] [place] [address] RBC (Bld) [#/Vol] 2.7 E12/L Low 4.3-5.9 [facility] Comment on above: Performed By: #### 2 596103 #### [facility] [address] [place] [address] RBC size Nom (Bld) SEE MORPHOLOGY Invalid Interpretation Code [facility] Comment on above: Result Comment: Resu lts are consistent with previous pathologist review Performed By: #### 2 883401 #### [facility] [address] [place] [address] Segmented neutrophils/100 WBC (Bld) 63 % Normal 50-70 [facility] Comment on above: Performed By: #### 2 634534 #### [facility] [address] [place] [address] Variant lymphocytes/100 WBC (Bld) 3 % High <=0 [facility] Comment on above: Performed By: #### 2 949720 #### [facility] [address] [place] [address] WBC corrected for nucl RBC Auto (Bld) [#/Vol] 7.3 E9/L Normal 4.0-11.0 [facility] Comment on above: Performed By: #### 2 541317 #### [facility] [address] [place] [address] CHEMISTRYOrdered By: SYSTEM SYSTEM on 08-22-2023 Albumin [Mass/Vol] 3.1 g/dL Low 3.3 - 5.0 gm/dL R emisol Chem Albumin/Globulin [Mass ratio] 1.2 {ratio} Normal 1.1 - 2.2 Remisol Chem ALP [Catalytic activity/Vol] 106 [iU]/d High 21 - 98 Int._Unit/L Remisol Chem ALT No additional P-5'-P [Catalytic activity/Vol] 6 [iU]/d Normal 6 - 46 Int._Unit/L Remisol Chem Anion gap [Moles/Vol] 14 mmol/L Normal 6 - 16 mEq/L R emisol Chem AST [Catalytic activity/Vol] 9 [iU]/d Normal 5 - 43 Int._Unit/L Remisol Chem Bilirubin [Mass/Vol] 0.3 mg/dL Normal 0.0 - 1.1 mg/dL Remisol Chem Calcium [Mass/Vol] 7.4 mg/dL Low 8.9 - 11. 1 mg/dL Remisol Chem Chloride [Moles/Vol] 110 mmol/L Normal 101 - 1 11 mmol/L Remisol Chem CO2 [Moles/Vol] 23 mmol/L Normal 21 - 31 mmol/L Remis ol Chem Creatinine [Mass/Vol] 0.7 mg/dL Normal 0.5 - 1.3 mg/d L Remisol Chem Globulin (S) [Mass/Vol] 2.5 g/dL Normal 1.4 - 4.0 gm/dL Remisol Chem Glucose [Mass/Vol] 145 mg/dL Normal 55 - 199 mg/dL Re misol Chem Potassium [Moles/Vol] 3.3 mmol/L Low 3.5 - 5.3 mmol/L Remisol Chem Protein [Mass/Vol] 5.6 g/dL Low 6.0 - 7.8 gm/dL R emisol Chem Sodium [Moles/Vol] 144 mmol/L Normal 135 - 145 mmol/L Remisol Chem Urea nitrogen [Mass/Vol] 13 mg/dL Normal 5 - 21 mg/dL Remisol Chem Urea nitrogen/Creatinine [Mass ratio] 19 mg/mg Normal 10 - 20 Remisol Chem CMPon 08-22-2023 Albumin [Mass/Vol] 3.1 g/dL Low 3.3-5.0 [facility] Comment on above: Performed By: #### 2 [id number] #### [facility] [address] [place] [address] Albumin/Globulin (S) [Mass conc ratio] 1.2 Normal 1.1-2.2 [facility] Comment on above: Performed By: #### 2 318992 #### [facility] [address] [place] [address] ALP [Catalytic activity/Vol] 106 Int._Unit/L High 21-98 [facility] Comment on above: Performed By: #### 2 627185 #### [facility] [address] [place] [address] ALT No additional P-5'-P [Catalytic activity/Vol] 6 Int._Unit/L Normal 6-46 [facility] Comment on above: Performed By: #### 2 948466 #### [facility] [address] [place] [address] Anion gap [Moles/Vol] 14 mmol/L Normal 6-16 [facility] Comment on above: Performed By: #### 2 645090 #### [facility] [address] [place] [address] AST [Catalytic activity/Vol] 9 Int._Unit/L Normal 5-43 [facility] Comment on above: Performed By: #### 2 272281 #### [facility] [address] [place] [address] Bilirubin [Mass/Vol] 0.3 mg/dL Normal 0.0-1.1 [facility] Comment on above: Performed By: #### 2 054064 #### [facility] [address] [place] [address] Calcium [Mass/Vol] 7.4 mg/dL Low 8.9-11.1 [facility] Comment on above: Performed By: #### 2 858910 #### [facility] [address] [place] [address] Chloride [Moles/Vol] 110 mmol/L Normal 101-111 [facility] Comment on above: Performed By: #### 2 388993 #### [facility] [address] [place] [address] CO2 [Moles/Vol] 23 mmol/L Normal 21-31 [facility] Comment on above: Performed By: #### 2 785010 #### [facility] [address] [place] [address] Creatinine [Mass/Vol] 0.7 mg/dL Normal 0.5-1.3 [facility] Comment on above: Performed By: #### 2 105822 #### [facility] [address] [place] [address] Globulin (S) [Mass/Vol] 2.5 g/dL Normal 1.4-4.0 [facility] Comment on above: Performed By: #### 2 144353 #### [facility] [address] [place] [address] Glucose [Mass/Vol] 145 mg/dL Normal 55-199 [facility] Comment on above: Performed By: #### 2 545173 #### [facility] [address] [place] [address] Potassium [Moles/Vol] 3.3 mmol/L Low 3.5-5.3 [facility] Comment on above: Performed By: #### 2 660417 #### [facility] [address] [place] [address] Protein [Mass/Vol] 5.6 g/dL Low 6.0-7.8 [facility] Comment on above: Performed By: #### 2 029272 #### [facility] [address] [place] [address] Sodium [Moles/Vol] 144 mmol/L Normal 135-145 [facility] Comment on above: Performed By: #### 2 387720 #### [facility] [address] [place] [address] Urea nitrogen [Mass/Vol] 13 mg/dL Normal - [facility] Comment on above: Performed By: #### 2 237380 #### [facility] [address] [place] [address] Urea nitrogen/Creatinine [Mass ratio] 19 No Units Normal 10-20 [facility] Comment on above: Performed By: #### 2 853926 #### [facility] [address] [place] [address] Consent for Treatmenton 08-02 Consent for Treatment [id number]#1 .00TIFF Normal [facility] HEMATOLOGYOrdered By: SYSTEM SYSTEM on 08-22-2023 Anisocytosis Ql (Bld) PRESENT *NA* (08/22/23 2:44 PM) Invalid Interpretation Code Remisol Heme Band form neutrophils/100 WBC (Bld) 6 % Normal 0 - 6 % [facility] Heme Basophils (Bld) [#/Vol] 0.1 E9/L Normal 0.0 - 0.2 E9/L Rem[facility] Heme Basophils/100 WBC (Bld) 1.0 % Normal 0.0 - 2.0 % [facility] Eosinophils (Bld) [#/Vol] 0.2 E9/L Normal 0.0 - 0.5 E9/L [facility] Eosinophils/100 WBC (Bld) 3.0 % Normal 0.0 - 8.0 [facility] Erythrocyte distribution width (RBC) [Ratio] 28.5 % High 10.9 - 14.2 % [facility] Hematocrit (Bld) [Volume fraction] 22.9 % Low 34.0 - 46.0 % [facility] Hemoglobin (Bld) [Mass/Vol] 7.3 g/dL Low 12.0 - 16.0 gm/dL [facility] Hypochromia Auto Ql (Bld) PRESENT *NA* (08/22/23 2:44 PM) Invalid Interpretation Code [facility] Lymphocytes (Bld) [#/Vol] 1.3 E9/L Normal 1.0 - 4.0 E9/L [facility] Lymphocytes/100 WBC (Bld) 15.0 % Normal 14.0 - 50.0 % Rem[facility]e MCH (RBC) [Entitic mass] 27.3 pg Normal 27.0 - 34.0 pg Remisol Heme MCHC (RBC) [Mass/Vol] 32.0 g/dL Normal 31.4 - 36.0 gm/dL [facility] MCV (RBC) [Entitic vol] 85.3 fL Normal 80.0 - 100.0 fL [facility] Metamyelocytes/Leukoc ytes Manual cnt (Bld) [Pure # fraction] 3 % High 0 - 0 % [facility] Monocytes (Bld) [#/Vol] 0.4 E9/L Normal 0.2 - 1.0 E9/L [facility] Monocytes/100 WBC (Bld) 5.0 % Normal 4.0 - 14.0 % [facility] Myelocytes/100 WBC (Bld) 1 % High 0 - 0 % [facility] Neutrophils (Bld) [#/Vol] 5.1 E9/L Invalid Interpretation Code [facility] Nucleated cells (Bld) [#/Vol] 2 1 High 0 - 0 [facility] Platelet 247.0 E9/L Normal 150.0 - 500.0 E9/L [facility] Platelet mean volume (Bld) [Entitic vol] 9.5 fL Normal 6.4 - 10.8 fL [facility] Polychromasia LM Ql (Bld) PRESENT *NA* (08/22/23 2:44 PM) Invalid Interpretation Code [facility] RBC (Bld) [#/Vol] 2.7 E12/L Low 4.3 - 5.9 E12/L Re misol Heme RBC size Nom (Bld) SEE MORPHOLOGY 1 *NA* (08/22/23 2:44 PM) Invalid Interpretation Code [facility] Comment on above: Result Comment: Resu lts are consistent with previous pathologist review Segmented neutrophils/100 WBC (Bld) 63 % Normal 50 - 70 % [facility] Variant lymphocytes/100 WBC (Bld) 3 % High <=0% [facility] WBC corrected for nucl RBC Auto (Bld) [#/Vol] 7.3 E9/L Normal 4.0 - 11.0 E9/L [facility] Nurse Consultation Noteon Nurse Consultation Note Normal [facility] Consent for Treatmenton 08-01 Consent for Treatment [id number]#1 .00TIFF Normal [facility] Insurance Correspondenceon 0 08-10-2023 Insurance Correspondence [id number]# 1.00TIFF Normal [facility] Consent for Treatmenton Consent for Treatment [id number] 405 [id number]#1 .00TIFF Normal [facility] CBC w/ Auto Diffon 4 Anisocytosis Ql (Bld) PRESENT Invalid Interpretation Code [facility] Comment on above: Performed By: #### 2 [id number], [id number] ####[facility] [address] [place] [address] Basophils/100 WBC (Bld) 0.5 % Normal 0.0-2.0 [facility] Comment on above: Performed By: #### 2 622058, 6484861 ####Singh John [address] [address] Basophils/Leukocytes Auto (Bld) [Pure # fraction] 0.1 E9/L Normal 0.0-0.2 [facility] Comment on above: Performed By: #### 2 993359, 2665129 ####[address] [address] Eosinophils (Bld) [#/Vol] 0.1 E9/L Normal 0.0-0.5 [facility] Comment on above: Performed By: #### 2 840383, 6638561 ####[address] [address] Eosinophils/100 WBC (Bld) 1.0 % Normal 0.0-8.0 [facility] Comment on above: Performed By: #### 2 066155, 4958302 ####[place] [address] Erythrocyte distribution width (RBC) [Ratio] 29.2 % High 10.9-14.2 [facility] Comment on above: Performed By: #### 2 334939, 8445253 ####[address] [address] Hematocrit (Bld) [Volume fraction] 28.1 % Low 34.0-46.0 [facility] Comment on above: Performed By: #### 2 199603, 1837859 ####[address] [address] Hemoglobin (Bld) [Mass/Vol] 8.8 g/dL Low 12.0-16.0 [facility] Comment on above: Performed By: #### 2 310388, 7074382 ####[address] [address] Hypochromia Auto Ql (Bld) PRESENT Invalid Interpretation Code [facility] Comment on above: Performed By: #### 2 208029, 4440206 ####[address] [address] Lymphocytes (Bld) [#/Vol] 1.6 E9/L Normal 1.0-4.0 [facility] Comment on above: Performed By: #### 2 460141, 8440332 ####[address] [address] Lymphocytes/100 WBC (Bld) 12.3 % Low 14.0-50.0 [facility] Comment on above: Performed By: #### 2 395739, 9677781 ####[address] [address] MCH (RBC) [Entitic mass] 26.3 pg Low 27.0-34.0 [facility] Comment on above: Performed By: #### 2 753072, 3306542 ####[address] [address] MCHC (RBC) [Mass/Vol] 31.3 g/dL Low 31.4-36.0 [facility] Comment on above: Performed By: #### 2 218533, 4390608 ####[address] [address] MCV (RBC) [Entitic vol] 84.1 fL Normal 80.0-100.0 [facility] Comment on above: Performed By: #### 2 465164, 1294196 ####[address] [address] Monocytes (Bld) [#/Vol] 0.8 E9/L Normal 0.2-1.0 [facility] Comment on above: Performed By: #### 2 553528, 3855207 ####[address] [address] Neutrophils (Bld) [#/Vol] 10.2 E9/L High 2.0-7.5 [facility] Comment on above: Performed By: #### 2 500941, 6624577 ####[address] [address] Neutrophils/100 WBC (Bld) 80.2 % High 36.0-75.0 [facility] Comment on above: Performed By: #### 2 140602, 4006374 ####[facility] [address] [place], [place] [address] Platelet mean volume (Bld) [Entitic vol] 9.1 fL Normal 6.4-10.8 [facility] Comment on above: Performed By: #### 2 288885, 7072180 ####[place] [address] Platelets (Bld) [#/Vol] 229.0 E9/L Normal 150.0-500.0 [facility] Comment on above: Performed By: #### 2 396359, 3392555 ####[place] [address] RBC (Bld) [#/Vol] 3.3 E12/L Low 4.3-5.9 [facility] Comment on above: Performed By: #### 2 260504, 1683245 ####[place] [address]557 RBC size Nom (Bld) SEE MORPHOLOGY Invalid Interpretation Code [facility] Comment on above: Performed By: #### 2 627325, 8407560 ####[place] [address] WBC corrected for nucl RBC Auto (Bld) [#/Vol] 12.8 E9/L High 4.0-11.0 [facility] Comment on above: Performed By: #### 2 325154, 0222016 ####[place] [address]557 CHEMISTRYOrdered By: SYSTEM SYSTEM on 08-08-2023 Albumin [Mass/Vol] 3.2 g/dL Low 3.3 - 5.0 gm/dL R emisol Chem Albumin/Globulin [Mass ratio] 1.2 {ratio} Normal 1.1 - 2.2 Remisol Chem ALP [Catalytic activity/Vol] 116 [iU]/d High 21 - 98 Int._Unit/L Remisol Chem ALT No additional P-5'-P [Catalytic activity/Vol] 8 [iU]/d Normal 6 - 46 Int._Unit/L Remisol Chem Anion gap [Moles/Vol] 13 mmol/L Normal 6 - 16 mEq/L R emisol Chem AST [Catalytic activity/Vol] 10 [iU]/d Normal 5 - 43 Int._Unit/L Remisol Chem Bilirubin [Mass/Vol] 0.3 mg/dL Normal 0.0 - 1.1 mg/dL Remisol Chem Calcium [Mass/Vol] 7.8 mg/dL Low 8.9 - 11. 1 mg/dL Remisol Chem Chloride [Moles/Vol] 107 mmol/L Normal 101 - 1 11 mmol/L Remisol Chem CO2 [Moles/Vol] 25 mmol/L Normal 21 - 31 mmol/L Remis ol Chem Creatinine [Mass/Vol] 0.7 mg/dL Normal 0.5 - 1.3 mg/d L Remisol Chem Globulin (S) [Mass/Vol] 2.7 g/dL Normal 1.4 - 4.0 gm/dL Remisol Chem Glucose [Mass/Vol] 164 mg/dL Normal 55 - 199 mg/dL Re misol Chem Potassium [Moles/Vol] 3.5 mmol/L Normal 3.5 - 5.3 mmol/L Remisol Chem Protein [Mass/Vol] 5.9 g/dL Low 6.0 - 7.8 gm/dL R emisol Chem Sodium [Moles/Vol] 141 mmol/L Normal 135 - 145 mmol/L Remisol Chem Urea nitrogen [Mass/Vol] 14 mg/dL Normal 5 - 21 mg/dL Remisol Chem Urea nitrogen/Creatinine [Mass ratio] 20 mg/mg Normal 10 - 20 Remisol Chem CMPon 08-08-2023 Albumin [Mass/Vol] 3.2 g/dL Low 3.3-5.0 [facility] Comment on above: Performed By: #### 2 528701, 5548877 ####[facility] [address] [place] [address] Albumin/Globulin (S) [Mass conc ratio] 1.2 Normal 1.1-2.2 [facility] Comment on above: Performed By: #### 2 573430, 1530308 ####[facility] [address] [place] [address] ALP [Catalytic activity/Vol] 116 Int._Unit/L High 21-98 [facility] Comment on above: Performed By: #### 2 146597, 9939875 ####[facility] [address] [place] [address] ALT No additional P-5'-P [Catalytic activity/Vol] 8 Int._Unit/L Normal 6-46 [facility] Comment on above: Performed By: #### 2 931675, 6888547 ####[facility] [address] [place] [address] Anion gap [Moles/Vol] 13 mmol/L Normal 6-16 [facility] Comment on above: Performed By: #### 2 911289, 9387938 ####[facility] [address] [place] [address] AST [Catalytic activity/Vol] 10 Int._Unit/L Normal 5-43 [facility] Comment on above: Performed By: #### 2 955033, 1030162 ####[facility] [address] [place] [address] Bilirubin [Mass/Vol] 0.3 mg/dL Normal 0.0-1.1 [facility] Comment on above: Performed By: #### 2 099398, 4148424 ####[facility] [address] [place] [address] Calcium [Mass/Vol] 7.8 mg/dL Low 8.9-11.1 [facility] Comment on above: Performed By: #### 2 861427, 0924564 ####[facility] [address] [place] [address] Chloride [Moles/Vol] 107 mmol/L Normal 101-111 [facility] Comment on above: Performed By: #### 2 043818, 4092202 ####[facility] [address] [place] [address] CO2 [Moles/Vol] 25 mmol/L Normal 21-31 [facility] Comment on above: Performed By: #### 2 718873, 5060315 ####[facility] [address] [place] [address] Creatinine [Mass/Vol] 0.7 mg/dL Normal 0.5-1.3 [facility] Comment on above: Performed By: #### 2 941193, 8107345 ####[facility] [address] [place] [address] Globulin (S) [Mass/Vol] 2.7 g/dL Normal 1.4-4.0 [facility] Comment on above: Performed By: #### 2 041477, 5675423 ####[facility] [address] [place] [address] Glucose [Mass/Vol] 164 mg/dL Normal 55-199 [facility] Comment on above: Performed By: #### 2 744759, 2824082 ####[address] [address] Potassium [Moles/Vol] 3.5 mmol/L Normal 3.5-5.3 [facility] Comment on above: Performed By: #### 2 654778, 6947730 ####[facility] [address] [place] [address] Protein [Mass/Vol] 5.9 g/dL Low 6.0-7.8 [facility] Comment on above: Performed By: #### 2 902611, 9784807 ####[facility] [address] [place] [address] Sodium [Moles/Vol] 141 mmol/L Normal 135-145 [facility] Comment on above: Performed By: #### 2 807221, 8316258 ####[facility] [address] [place] [address] Urea nitrogen [Mass/Vol] 14 mg/dL Normal 5-21 [facility] Comment on above: Performed By: #### 2 751264, 0170745 ####[place] [address] [place] [address] Urea nitrogen/Creatinine [Mass ratio] 20 No Units Normal 10-20 [facility] Comment on above: Performed By: #### 2 146929, 6752978 ####[facility] [address] [place] [address] Consent for Treatmenton Consent for Treatment [id number] .00TIFF Normal [facility] HEMATOLOGYOrdered By: SYSTEM SYSTEM on 08-08-2023 Anisocytosis Ql (Bld) PRESENT *NA* (08/08/23 1:22 PM) Invalid Interpretation Code Remisol Heme Basophils/100 WBC (Bld) 0.5 % Normal 0.0 - 2.0 % [facility] Basophils/Leukocytes Auto (Bld) [Pure # fraction] 0.1 E9/L Normal 0.0 - 0.2 E9/L [facility] Eosinophils (Bld) [#/Vol] 0.1 E9/L Normal 0.0 - 0.5 E9/L [facility] Eosinophils/100 WBC (Bld) 1.0 % Normal 0.0 - 8.0 % [facility] Erythrocyte distribution width (RBC) [Ratio] 29.2 % High 10.9 - 14.2 % [facility] Hematocrit (Bld) [Volume fraction] 28.1 % Low 34.0 - 46.0 % [facility] Hemoglobin (Bld) [Mass/Vol] 8.8 g/dL Low 12.0 - 16.0 gm/dL [facility] Hypochromia Auto Ql (Bld) PRESENT *NA* (08/08/23 1:22 PM) Invalid Interpretation Code [facility] Lymphocytes (Bld) [#/Vol] 1.6 E9/L Normal 1.0 - 4.0 E9/L [facility] Lymphocytes/100 WBC (Bld) 12.3 % Low 14.0 - 50.0 % [facility] MCH (RBC) [Entitic mass] 26.3 pg Low 27.0 - 34.0 pg Remisol Heme MCHC (RBC) [Mass/Vol] 31.3 g/dL Low 31.4 - 36.0 gm/dL [facility] MCV (RBC) [Entitic vol] 84.1 fL Normal 80.0 - 100.0 fL [facility] Monocytes (Bld) [#/Vol] 0.8 E9/L Normal 0.2 - 1.0 E9/L [facility] Monocytes/100 WBC (Bld) 6.0 % Normal 4.0 - 14.0 % [facility] Neutrophils (Bld) [#/Vol] 10.2 E9/L High 2.0 - 7.5 E9/L [facility] Neutrophils/100 WBC (Bld) 80.2 % High 36.0 - 75.0 % [facility] Platelet mean volume (Bld) [Entitic vol] 9.1 fL Normal 6.4 - 10.8 fL [facility] Platelets (Bld) [#/Vol] 229.0 E9/L Normal 150.0 - 500.0 E9/L [facility] RBC (Bld) [#/Vol] 3.3 E12/L Low 4.3 - 5.9 E12/L Re misol Heme RBC size Nom (Bld) SEE MORPHOLOGY *NA* (08/08/23 1:22 PM) Invalid Interpretation Code Rem[facility]e WBC corrected for nucl RBC Auto (Bld) [#/Vol] 12.8 E9/L High 4.0 - 11.0 E9/L [facility] Population Healthon 08-07-19 Population Health Normal [facility] Ambulatory Visit Summaryon 0 07-31-2023 Ambulatory Visit Summary Normal [facility] Family Medicine Office/Clini c Noteon 07-31-2023 Family Medicine Office/Clinic Note Normal [facility] Comment on above: Result Comment: Elec tronically Signed By: Venkatesh MISTRY, Lázaro Duran.br\Date and Time Signed: 07/31/23 10:38 EDT [facility] 07-31-2023 Outside Labs [id number] .00TIFF Normal [facility] Patient Educationon 07-31-19 Patient Education Normal [facility] US ankle/arm indiceson 07-30 US ankle/arm indices [facility] [address] [place] [address] Ultrasound Report Signed Patient: Venancio Nelson MR#: [id number] : 1960 Acct:[id number] Age/Sex: 62 / F ADM Date: 07/25/23 Loc: [facility] Room: Type: [facility] Attending Dr: Luc Vargas MD Ordering Provider: Luc Vargas MD Date of Service: 07/25/23 US/US ankle/arm indices: I70.213 Copies to: Luc Vargas MD LOWER EXTREMITY SEGMENTAL ARTERIAL DOPSCAN (PVR) INDICATION: Known peripheral artery occlusive disease status post left leg reconstruction PROCEDURE: Right arm blood pressure is 134 , left is 140 . Pressures at the right ankle are 106 using the posterior tibial artery, and 100 using the dorsalis pedis artery with ankle-brachial index of 0.76 0.71 . Pressures at the left ankle are 105 using the posterior tibial artery, and 100 with ankle-brachial index of 0.75 0.71 . Wave forms by plethysmography are blunted US/US ankle/arm indices IMPRESSION: Mild bilateral peripheral vascular occlusive disease at rest Impression dictated by: Luc Vargas M.D.07/31/2023 12:39 PM Dictation Location: [place] [address] Tech: Malu Shaw Transcribed By: KRYSTAL 07/31/23 1239 Dictated By: Luc Vargas MD 07/31/23 1238 Signed By: 07/31/23 1239 Normal [facility] Consent for Treatmenton 07-03 Consent for Treatment [id number]#1 .00TIFF Normal [facility] Oncology Progress Noteon Oncology Progress Note Normal [facility] Consent for Treatmenton 07-03 Consent for Treatment [id number]#1 .00TIFF Normal [facility] Population Healthon 07-26-19 Population Health Normal [facility] [place] 125on 07-25-2023 Cancer Ag 125 Qn 136.0 unit/mL High 0.0-38.1 [facility] Comment on above: Result Comment: [employer] Electrochemiluminescence Immunoassay (ECLIA)Values obtained with different assay methods or kits cannot beused interchangeably. Results cannot be interpreted as absoluteevidence of the presence or absence of malignant disease.Performed at: [facility] [place], [place] [id number] PhD Pavel Vasquez Performed By: #### 2 [id number] ####[facility] [address] [place] [address] Outside [facility] 07-25-2023 Outside Labs [id number]#1 .00TIFF Normal [facility] Consent for Treatmenton 07-03 Consent for Treatment [id number]#1 .00TIFF Normal [facility] Outside [facility] 07-24-2023 Outside Labs [id number]#1 .00TIFF Normal [facility] Physician Orderon 07-21-2023 Physician Order [id number]# 1.00TIFF Normal [facility] Physician Orderon 07-20-2023 Physician Order [id number]# 1.00TIFF Normal [facility] Ambulatory Visit Summaryon 0 07-17-2023 Ambulatory Visit Summary Normal [address] [place] [address]- \.br\ Medications\.br \ What How Much When Why Instructions\.b r\ Unchanged furosemide (furosemide 40 mg Tab) 1 Tablets By Mouth Every day Pickup at [facility]/pharmacy #[id number]\.br\ Unchanged aspirin (aspirin 81 mg Oral EC Tab) 1 Tablets By Mouth Every day Contact prescribing physician if questions or concerns \.br\ Unchanged atorvastatin (atorvastatin 20 mg Tab) 1 Tablets By Mouth At bedtime Contact prescribing physician if questions or concerns \.br\ Unchanged atropine-diphen oxylate (Lomotil 0.025 mg-2.5 mg Tab) 2 Tablets By Mouth 4 times a day as needed for for loose stool Chemotherapy induced diarrhea Contact prescribing physician if questions or concerns \.br\ Unchanged clopidogrel (clopidogrel 75 mg Tab) 1 Tablets By Mouth Every day Contact prescribing physician if questions or concerns \.br\ Unchanged dicyclomine (dicyclomine 20 mg Tab) 1 Tablets By Mouth 3 times a day 30 to 60 minutes before meals Contact prescribing physician if questions or concerns \.br\ Unchanged glipiZIDE (glipiZIDE 10 mg Tab) 1 Tablets By Mouth 2 times a day Contact prescribing physician if questions or concerns \.br\ Unchanged insulin glargine (Lantus Solostar Pen 100 units/ mL subcutaneous solution) See instructions INJECT 20 UNITS SUBCUTANEOUSLY TWICE A DAY Contact prescribing physician if questions or concerns \.br\ Unchanged insulin lispro (HumaLOG KwikPen 100 units/ mL injectable solution) See instructions INJECT 15 UNITS SUBCUTANEOUSLY 3 TIMES A DAY. MAX DOSE OF 45 IN A DAY Contact prescribing physician if questions or concerns \.br\ Unchanged lisinopril (lisinopril 30 mg Tab) 1 Tablets By Mouth Every day Contact prescribing physician if questions or concerns \.br\ Unchanged loperamide (Immodium A-D 2 mg Tab) Contact prescribing physician if questions or concerns \.br\ Unchanged metformin (MetFORMIN (Eqv-Glucophage XR) 500 mg oral tablet, extended release) See instructions TAKE 2 TABLETS BY MOUTH TWICE A DAY Contact prescribing physician if questions or concerns \.br\ Unchanged metoprolol (metoprolol tartrate 100 mg Tab) 1 Tablets By Mouth 2 times a day Contact prescribing physician if questions or concerns \.br\ Unchanged Misc Prescription (Freestyle Brady 2 Flash Glucose Monitoring 14 Day System (Boyce)) See instructions Congestive heart failure, unspecified HF chronicity, unspecified heart failure type Infection of great toe Controlled type 2 diabetes mellitus with other skin complication, without long-term current use of insulin BMI 36.0-36.9,adult Class 1 obesity due to excess calories in adult Smoker Freestyle Brady Flash Glucose Monitoring 14 Day System (Boyce) Contact prescribing physician if questions or concerns \.br\ Unchanged Misc Prescription (Freestyle Brady 2 Flash Glucose Monitoring 14 Day System (Sensor)) See instructions Congestive heart failure, unspecified HF chronicity, unspecified heart failure type Infection of great toe Controlled type 2 diabetes mellitus with other skin complication, without long-term current use of insulin BMI 36.0-36.9,adult Class 1 obesity due to excess calories in adult Smoker Freestyle Brady Flash Glucose Monitoring 14 Day System (Sensor). Replace sensor every 14 days. Contact prescribing physician if questions or concerns \.br\ Unchanged Misc Prescription (Freestyle Brady 2 Boyce) See instructions Congestive heart failure, unspecified HF chronicity, unspecified heart failure type Infection of great toe Controlled type 2 diabetes mellitus with other skin complication, without long-term current use of insulin BMI 36.0-36.9,adult Class 1 obesity due to excess calories in adult Smoker use as directed Contact prescribing physician if questions or concerns \.br\ Unchanged Misc Prescription (Sure comfort 30gx5/ 16 pen needle) See instructions Congestive heart failure, unspecified HF chronicity, unspecified heart failure type Infection of great toe Controlled type 2 diabetes mellitus with other skin complication, without long-term current use of insulin BMI 36.0-36.9,adult Class 1 obesity due to excess calories in adult Smoker twice daily for insulin Contact prescribing physician if questions or concerns \.br\ Unchanged Misc Prescription (sure comfort pen needle 30 gauge x 5/ 16) See instructions use bid for E10.8 Contact prescribing physician if questions or concerns \.br\ Unchanged ondansetron (ondansetron 8 mg Tab) 1 Tablets By Mouth 3 times a day as needed for Nausea/Vomiting Contact prescribing physician if questions or concerns \.br\ Unchanged pantoprazole (Pantoprazole [address] Tab) 40 Milligram By Mouth 2 times a day Contact prescribing physician if questions or concerns \.br\ Unchanged spironolactone (spironolactone 50 mg Tab) 1 Tablets By Mouth Every day Contact prescribing physician if questions or concerns \.br\ Pharmacy Information\.br \ [id number]: [address] [place], [place] [id number] [phone]\.br\ Allergies\.br\ albuterol (Severe)\.br\ sulfa drugs (Mild)\.br\ Problems\.br\ Ongoing - Any problem that you are currently receiving treatment for.\.br\ Advanced care planning/counse ling discussion\.br\ Allergic eczema\.br\ Anemia\.br\ BMI 38.0-38.9,adult \.br\ Cancer related pain\.br\ Cardiomyopathy due to hypertension, without heart failure\.br\ Chronic obstructive pulmonary disease\.br\ Congestive heart failure\.br\ Controlled type 2 diabetes mellitus with other skin complication, without long-term current use of insulin\.br\ Diabetic retinopathy\.br \ Diarrhea\.br\ Encounter for care related to Port-a-Cath\.br \ Hospital discharge follow-up\.br\ Hx of cerebral infarction\.br\ Hypercholestero lemia\.br\ Infection of great toe\.br\ Obesity due to excess calories\.br\ Other specified counseling\.br\ Pancreas cancer\.br\ Poor venous access\.br\ Primary hypertension\.b r\ Smoker\.br\ Patient Survey\.br\ You may receive a survey via text or e-mail asking about your office visit. Please share your experience with us by completing your survey. We appreciate your feedback and thank you for choosing us for your care.\.br\ \.br\ [facility] CBC w/ Auto Diffon 4 Anisocytosis Ql (Bld) PRESENT Invalid Interpretation Code [facility] Comment on above: Performed By: #### 2 [id number], [id number], [id number] ####[facility] [address] [place] [address] Basophils/100 WBC (Bld) 6.3 % High 0.0-2.0 [facility] Comment on above: Performed By: #### 2 196995, 7703038, [id number] ####[facility] [address] [place] [address] Basophils/Leukocytes Auto (Bld) [Pure # fraction] 1.0 E9/L High 0.0-0.2 [facility] Comment on above: Performed By: #### 2 473130, 5495327, [id number] ####[facility] [address] [place] [address] Eosinophils (Bld) [#/Vol] 0.1 E9/L Normal 0.0-0.5 [facility] Comment on above: Performed By: #### 2 927026, 6367838, [id number] ####[facility] [address] [address] Eosinophils/100 WBC (Bld) 0.8 % Normal 0.0-8.0 [facility] Comment on above: Performed By: #### 2 158530, 9513126, 02544347 ####[address] [address] Erythrocyte distribution width (RBC) [Ratio] 26.2 % High 10.9-14.2 [facility] Comment on above: Performed By: #### 2 497851, 6743434, 71593287 ####[address] [address] Hematocrit (Bld) [Volume fraction] 32.5 % Low 34.0-46.0 [facility] Comment on above: Performed By: #### 2 001094, 8912184, 33513859 ####[place] [address] Hemoglobin (Bld) [Mass/Vol] 9.8 g/dL Low 12.0-16.0 [facility] Comment on above: Performed By: #### 2 271430, 3474622, 86313895 ####[place] [address] Hypochromia Auto Ql (Bld) PRESENT Invalid Interpretation Code [facility] Comment on above: Performed By: #### 2 519727, 4610561, 77616505 ####[address] [address] Lymphocytes (Bld) [#/Vol] 2.2 E9/L Normal 1.0-4.0 [facility] Comment on above: Performed By: #### 2 564629, 8078457, 46910212 ####[address] [address] Lymphocytes/100 WBC (Bld) 13.2 % Low 14.0-50.0 [facility] Comment on above: Performed By: #### 2 463138, 4759563, 76541347 ####[address] [address] MCH (RBC) [Entitic mass] 25.3 pg Low 27.0-34.0 [facility] Comment on above: Performed By: #### 2 770349, 2351550, 98789244 ####[address] [address] MCHC (RBC) [Mass/Vol] 30.2 g/dL Low 31.4-36.0 [facility] Comment on above: Performed By: #### 2 215496, 6671782, 33136301 ####[address] [address] MCV (RBC) [Entitic vol] 83.8 fL Normal 80.0-100.0 [facility] Comment on above: Performed By: #### 2 479622, 9222727, 50761000 ####[address] [address] Monocytes (Bld) [#/Vol] 0.8 E9/L Normal 0.2-1.0 [facility] Comment on above: Performed By: #### 2 233616, 1624369, 48592501 ####[address] [address] Neutrophils (Bld) [#/Vol] 12.2 E9/L High 2.0-7.5 [facility] Comment on above: Performed By: #### 2 849224, 9263436, 69611893 ####[address] [address] Neutrophils/100 WBC (Bld) 74.5 % Normal 36.0-75.0 [facility] Comment on above: Performed By: #### 2 050904, 9505331, 99177596 ####[address] [address] Platelet 313.0 E9/L Normal 150.0-500.0 [facility] Comment on above: Performed By: #### 2 666279, 2415076, 43489282 ####[facility] [address] [place] [address] Platelet mean volume (Bld) [Entitic vol] 8.0 fL Normal 6.4-10.8 [facility] Comment on above: Performed By: #### 2 811203, 3783063, 19882277 ####[facility] [address] [place] [address] RBC (Bld) [#/Vol] 3.9 E12/L Low 4.3-5.9 [facility] Comment on above: Performed By: #### 2 291543, 2658312, 66225501 ####[address] [address] WBC corrected for nucl RBC Auto (Bld) [#/Vol] 16.4 E9/L High 4.0-11.0 [facility] Comment on above: Performed By: #### 2 067614, 4773872, 19758227 ####[facility] [address] [place] [address] CHEMISTRYOrdered By: SYSTEM SYSTEM on 07-17-2023 Albumin [Mass/Vol] 2.9 g/dL Low 3.3 - 5.0 gm/dL R emisol Chem Albumin/Globulin [Mass ratio] 1.1 {ratio} Normal 1.1 - 2.2 Remisol Chem ALP [Catalytic activity/Vol] 120 [iU]/d High 21 - 98 Int._Unit/L Remisol Chem ALT No additional P-5'-P [Catalytic activity/Vol] 12 [iU]/d Normal 6 - 46 Int._Unit/L Remisol Chem Anion gap [Moles/Vol] 14 mmol/L Normal 6 - 16 mEq/L R emisol Chem AST [Catalytic activity/Vol] 14 [iU]/d Normal 5 - 43 Int._Unit/L Remisol Chem Bilirubin [Mass/Vol] 0.2 mg/dL Normal 0.0 - 1.1 mg/dL Remisol Chem Calcium [Mass/Vol] 8.4 mg/dL Low 8.9 - 11. 1 mg/dL Remisol Chem Chloride [Moles/Vol] 113 mmol/L High 101 - 1 11 mmol/L Remisol Chem CO2 [Moles/Vol] 17 mmol/L Low 21 - 31 mmol/L Remis ol Chem Creatinine [Mass/Vol] 0.9 mg/dL Normal 0.5 - 1.3 mg/d L Remisol Chem eGFR 71 mL/min/1.73 m2 Normal >=59mL/min /1.73 m2 Remisol Chem Globulin (S) [Mass/Vol] 2.6 g/dL Normal 1.4 - 4.0 gm/dL Remisol Chem Glucose [Mass/Vol] 133 mg/dL Normal 55 - 199 mg/dL Re misol Chem Potassium [Moles/Vol] 4.6 mmol/L Normal 3.5 - 5.3 mmol/L Remisol Chem Protein [Mass/Vol] 5.5 g/dL Low 6.0 - 7.8 gm/dL R emisol Chem Sodium [Moles/Vol] 139 mmol/L Normal 135 - 145 mmol/L Remisol Chem Urea nitrogen [Mass/Vol] 23 mg/dL High 5 - 21 mg/dL Remisol Chem Urea nitrogen/Creatinine [Mass ratio] 26 mg/mg High 10 - 20 Remisol Chem CMPon 07-17-2023 Albumin [Mass/Vol] 2.9 g/dL Low 3.3-5.0 [facility] Comment on above: Performed By: #### 2 939740, 6497695, 05350176 ####[facility] [address] [place] [address] Albumin/Globulin (S) [Mass conc ratio] 1.1 Normal 1.1-2.2 [facility] Comment on above: Performed By: #### 2 312975, 9599875, 85938577 ####[facility] [address] [place] [address] ALP [Catalytic activity/Vol] 120 Int._Unit/L High 21-98 [facility] Comment on above: Performed By: #### 2 693328, 3974821, 12312166 ####[facility] [address] [place] [address] ALT No additional P-5'-P [Catalytic activity/Vol] 12 Int._Unit/L Normal 6-46 [facility] Comment on above: Performed By: #### 2 990070, 7517948, 63662836 ####[facility] [address] [place] [address] Anion gap [Moles/Vol] 14 mmol/L Normal 6-16 [facility] Comment on above: Performed By: #### 2 093939, 3188118, 82632382 ####[facility] [address] [place] [address] AST [Catalytic activity/Vol] 14 Int._Unit/L Normal 5-43 [facility] Comment on above: Performed By: #### 2 337029, 7471872, 60359942 ####[facility] [address] [place] [address] Bilirubin [Mass/Vol] 0.2 mg/dL Normal 0.0-1.1 [facility] Comment on above: Performed By: #### 2 764694, 4733107, 25030944 ####[facility] [address] [facility] [place] [address] Calcium [Mass/Vol] 8.4 mg/dL Low 8.9-11.1 [facility] Comment on above: Performed By: #### 2 303117, 8085951, 66571833 ####[facility] [address] [place] [address] Chloride [Moles/Vol] 113 mmol/L High 101-111 [facility] Comment on above: Performed By: #### 2 552638, 5640201, 03869825 ####[facility] [address] [place] [address] CO2 [Moles/Vol] 17 mmol/L Low 21-31 [facility] Comment on above: Performed By: #### 2 652019, 7103163, 01605593 ####[facility] [address] [place] [address] Creatinine [Mass/Vol] 0.9 mg/dL Normal 0.5-1.3 [facility] Comment on above: Performed By: #### 2 399325, 2803300, 74059368 ####[facility] [address] [place] [address] Globulin (S) [Mass/Vol] 2.6 g/dL Normal 1.4-4.0 [facility] Comment on above: Performed By: #### 2 337360, 5157792, 72096273 ####[facility] [address] [place] [address] Glucose [Mass/Vol] 133 mg/dL Normal 55-199 [facility] Comment on above: Performed By: #### 2 989674, 6232698, 21789780 ####[facility] [address] [place] [address] Potassium [Moles/Vol] 4.6 mmol/L Normal 3.5-5.3 [facility] Comment on above: Performed By: #### 2 468740, 7759955, 44448736 ####[facility] [address] [place] [address] Protein [Mass/Vol] 5.5 g/dL Low 6.0-7.8 [facility] Comment on above: Performed By: #### 2 534438, 4007544, 03407751 ####[facility] [address] [place] [address] Sodium [Moles/Vol] 139 mmol/L Normal 135-145 [facility] Comment on above: Performed By: #### 2 095511, 4273862, 94153830 ####[facility] [address] [place] [address] Urea nitrogen [Mass/Vol] 23 mg/dL High 5-21 [facility] Comment on above: Performed By: #### 2 176500, 0991318, 69753213 ####[facility] [address] [place] [address] Urea nitrogen/Creatinine [Mass ratio] 26 No Units High 10-20 [facility] Comment on above: Performed By: #### 2 486587, 4926644, 11070178 ####[facility] [address] [place] [address] Family Medicine Office/Clini c Noteon 07-17-2023 Family Medicine Office/Clinic Note Normal [facility] Comment on above: Result Comment: Elec tronically Signed By: Venkatesh MISTRY, Lázaro Ball\Date and Time Signed: 07/17/23 08:21 EDT HEMATOLOGYOrdered By: SYSTEM SYSTEM on 07-17-2023 Anisocytosis Ql (Bld) PRESENT *NA* (07/17/23 8:14 AM) Invalid Interpretation Code Remisol Heme Basophils/100 WBC (Bld) 6.3 % High 0.0 - 2.0 % Remisol Heme Basophils/Leukocytes Auto (Bld) [Pure # fraction] 1.0 E9/L High 0.0 - 0.2 E9/L Remisol Heme Eosinophils (Bld) [#/Vol] 0.1 E9/L Normal 0.0 - 0.5 E9/L Remisol Heme Eosinophils/100 WBC (Bld) 0.8 % Normal 0.0 - 8.0 % Remisol Heme Erythrocyte distribution width (RBC) [Ratio] 26.2 % High 10.9 - 14.2 % Remisol Heme Hematocrit (Bld) [Volume fraction] 32.5 % Low 34.0 - 46.0 % Remisol Heme Hemoglobin (Bld) [Mass/Vol] 9.8 g/dL Low 12.0 - 16.0 gm/dL Remisol Heme Hypochromia Auto Ql (Bld) PRESENT *NA* (07/17/23 8:14 AM) Invalid Interpretation Code Remisol Heme Lymphocytes (Bld) [#/Vol] 2.2 E9/L Normal 1.0 - 4.0 E9/L Remisol Heme Lymphocytes/100 WBC (Bld) 13.2 % Low 14.0 - 50.0 % Remisol Heme MCH (RBC) [Entitic mass] 25.3 pg Low 27.0 - 34.0 pg Remisol Heme MCHC (RBC) [Mass/Vol] 30.2 g/dL Low 31.4 - 36.0 gm/dL Remisol Heme MCV (RBC) [Entitic vol] 83.8 fL Normal 80.0 - 100.0 fL Remisol Heme Monocytes (Bld) [#/Vol] 0.8 E9/L Normal 0.2 - 1.0 E9/L Remisol Heme Monocytes/100 WBC (Bld) 5.2 % Normal 4.0 - 14.0 % Remisol Heme Neutrophils (Bld) [#/Vol] 12.2 E9/L High 2.0 - 7.5 E9/L Remisol Heme Neutrophils/100 WBC (Bld) 74.5 % Normal 36.0 - 75.0 % Remisol Heme Platelet 313.0 E9/L Normal 150.0 - 500.0 E9/L Remisol Heme Platelet mean volume (Bld) [Entitic vol] 8.0 fL Normal 6.4 - 10.8 fL Remisol Heme RBC (Bld) [#/Vol] 3.9 E12/L Low 4.3 - 5.9 E12/L Re misol Heme WBC corrected for nucl RBC Auto (Bld) [#/Vol] 16.4 E9/L High 4.0 - 11.0 E9/L Remisol Heme eGFRon 07-17-2023 eGFR 71 mL/min/1.73 m2 Normal >=59 [facility] Comment on above: Order Comment: Order added by Discern Expert. Performed By: #### 2 085154, 0841468, 82230856 ####[facility] [address] [place] [address] C Blood Charcoalon Blood Culture Charcoal Normal [facility] Comment on above: Performed By: #### 1 1942995 ####[facility] [address] [place] [address] Blood Culture Charcoal Normal [facility] Comment on above: Performed By: #### 1 [id number] ####[facility] [address] [place] [address] Heart and Vascular Office/Cl inic Noteon 07-12-2023 Heart and Vascular Office/Clinic Note Normal [facility] Comment on above: Result Comment: Elec tronically Signed By: Rik MISTRY, Felix Vann\.br\Date and Time Signed: 07/12/23 07:43 EDT\.br\Electronically Co-Signed By: Silvestre Peterson\.br\Date and Time Co-Signed: 06/09/23 16:28 EST Insurance Correspondence Off iceon 07-12-2023 Insurance Correspondence Office [id number]# 1.00TIFF Normal [facility] Patient History Officeon Patient History Office [id number]# 1.00TIFF Normal [facility] Discharge Instructionson Discharge Instructions [id number] #1.00TIFF Normal [facility] Population Healthon 07-11-19 Population Health [facility] Anion gap [Moles/Vol] 12 mmol/L Normal 6-16 [facility] Comment on above: Performed By: #### 1 3773287, 9772278, 1789482, 2589077 ####[facility] [address] [place] [address] Calcium [Mass/Vol] 7.8 mg/dL Low 8.9-11.1 [facility] Comment on above: Performed By: #### 1 [id number], 1884298, 5043362, 2286970 ####[facility] [address] [place] [address] Chloride [Moles/Vol] 109 mmol/L Normal 101-111 [facility] Comment on above: Performed By: #### 1 4752266, 8794377, 4043294, 6753496 ####[facility] [address] [place] [address] CO2 [Moles/Vol] 19 mmol/L Low 21-31 [facility] Comment on above: Performed By: #### 1 2693515, 9088243, 1538846, 7206457 ####[facility] [address] [place] [address] Creatinine [Mass/Vol] 0.8 mg/dL Normal 0.5-1.3 [facility] Comment on above: Performed By: #### 1 5514012, 4863576, 4359638, 9634378 ####[facility] [address] [place] [address] Glucose [Mass/Vol] 95 mg/dL Normal 55-199 [facility] Comment on above: Performed By: #### 1 [id number], 5476541, 0766695, 4683258 ####[facility] [address] [place] [address] Potassium [Moles/Vol] 3.6 mmol/L Normal 3.5-5.3 [facility] Comment on above: Performed By: #### 1 6189760, 6200013, 4015962, 4984670 ####[facility] [address] [place] [address] Sodium [Moles/Vol] 136 mmol/L Normal 135-145 [facility] Comment on above: Performed By: #### 1 4421967, 4427495, 4613056, 3563951 ####[facility] [address] [place] [address] Urea nitrogen [Mass/Vol] 23 mg/dL High 5-21 [facility] Comment on above: Performed By: #### 1 3116941, 9815102, 2847587, 5370491 ####[facility] [address] [place] [address] Urea nitrogen/Creatinine [Mass ratio] 29 No Units High 10-20 [facility] Comment on above: Performed By: #### 1 0077856, 5689935, 5421795, 8468457 ####[facility] [address] [place] [address] CBC w/ Auto Diffon 4 Acanthocytes LM Ql (Bld) PRESENT Invalid Interpretation Code [facility] Comment on above: Performed By: #### 1 4838730, 9653749, 4480571 ####[place] [address] Anisocytosis Ql (Bld) PRESENT Invalid Interpretation Code [facility] Comment on above: Performed By: #### 1 5175465, 9058861, 0814528 ####[address] [address] Band form neutrophils/100 WBC (Bld) 4 % Normal 0-6 [facility] Comment on above: Performed By: #### 1 7554776, 9125544, 2288724 ####[address] [address] Basophils (Bld) [#/Vol] 0.0 E9/L Normal 0.0-0.2 [facility] Comment on above: Performed By: #### 1 9323492, 9847956, 6793219 ####[address] [address] Eosinophils (Bld) [#/Vol] 0.1 E9/L Normal 0.0-0.5 [facility] Comment on above: Performed By: #### 1 5339138, 2037111, 6742013 ####[place] [address]557 Eosinophils/100 WBC (Bld) 1.0 % Normal 0.0-8.0 [facility] Comment on above: Performed By: #### 1 9854990, 8763945, 2455985 ####[place] [address]557 Erythrocyte distribution width (RBC) [Ratio] 25.3 % High 10.9-14.2 [facility] Comment on above: Performed By: #### 1 9505675, 7376623, 7924918 ####[address] [address] Hematocrit (Bld) [Volume fraction] 31.6 % Low 34.0-46.0 [facility] Comment on above: Performed By: #### 1 6709926, 1901275, 5080082 ####[address] [place] [address] Hemoglobin (Bld) [Mass/Vol] 9.9 g/dL Low 12.0-16.0 [facility] Comment on above: Performed By: #### 1 0551824, 9784988, 9645319 ####[address] [address] Hypochromia Auto Ql (Bld) PRESENT Invalid Interpretation Code [facility] Comment on above: Performed By: #### 1 9047408, 5371729, 4597962 ####[address] [address] Lymphocytes (Bld) [#/Vol] 1.4 E9/L Normal 1.0-4.0 [facility] Comment on above: Performed By: #### 1 7528362, 6086224, 0422547 ####[address] [address] Lymphocytes/100 WBC (Bld) 14.0 % Normal 14.0-50.0 [facility] Comment on above: Performed By: #### 1 2663852, 4490029, 0851523 ####[address] [address] MCH (RBC) [Entitic mass] 25.4 pg Low 27.0-34.0 [facility] Comment on above: Performed By: #### 1 0647946, 1287071, 5486998 ####[address] [address] MCHC (RBC) [Mass/Vol] 31.3 g/dL Low 31.4-36.0 [facility] Comment on above: Performed By: #### 1 3240121, 9267572, 0724714 ####[address] [address] MCV (RBC) [Entitic vol] 81.1 fL Normal 80.0-100.0 [facility] Comment on above: Performed By: #### 1 9482341, 7675706, 3711703 ####[address] [address] Metamyelocytes/Leukoc ytes Manual cnt (Bld) [Pure # fraction] 5 % High 0-0 [facility] Comment on above: Performed By: #### 1 4854358, 1739984, 6091081 ####[address] [address] Monocytes (Bld) [#/Vol] 0.6 E9/L Normal 0.2-1.0 [facility] Comment on above: Performed By: #### 1 8951285, 4066287, 1937784 ####[place] [address]557 Neutrophils (Bld) [#/Vol] 7.2 E9/L Invalid Interpretation Code [facility] Comment on above: Performed By: #### 1 2926520, 6533029, 2199155 ####[place] [address] Ovalocytes LM Ql (Bld) PRESENT Invalid Interpretation Code [facility] Comment on above: Performed By: #### 1 4741516, 1071421, 5836127 ####[place] [address]557 Platelet 210.0 E9/L Normal 150.0-500.0 [facility] Comment on above: Performed By: #### 1 8614325, 4641887, 6157357 ####[address] [address] Platelet mean volume (Bld) [Entitic vol] 8.5 fL Normal 6.4-10.8 [facility] Comment on above: Performed By: #### 1 2402843, 1865762, 7806272 ####[address] [address] RBC (Bld) [#/Vol] 3.9 E12/L Low 4.3-5.9 [facility] Comment on above: Performed By: #### 1 0151041, 1356538, 3554385 ####[place] [address] RBC size Nom (Bld) SEE MORPHOLOGY Invalid Interpretation Code [facility] Comment on above: Performed By: #### 1 5862741, 1943844, 5761965 ####[address] [address] Segmented neutrophils/100 WBC (Bld) 70 % Normal 50-70 [facility] Comment on above: Performed By: #### 1 7294157, 9563975, 0761811 ####[address] [address] Toxic granules LM Ql (Bld) PRESENT Invalid Interpretation Code [facility] Comment on above: Performed By: #### 1 7273974, 7577940, 7215964 ####[place] [address]557 WBC corrected for nucl RBC Auto (Bld) [#/Vol] 9.7 E9/L Normal 4.0-11.0 [facility] Comment on above: Performed By: #### 1 1256606, 0700628, 7994868 ####[address] [address] CBC w/Indiceson 07-10-2023 Erythrocyte distribution width (RBC) [Ratio] 25.4 % High 10.9-14.2 [facility] Comment on above: Performed By: #### 1 7934551, 6402275, 6068597, 2764900 ####[address] [address] Hematocrit (Bld) [Volume fraction] 31.0 % Low 34.0-46.0 [facility] Comment on above: Performed By: #### 1 9148351, 4085978, 4381108, 9004584 ####[address] [address] Hemoglobin (Bld) [Mass/Vol] 10.0 g/dL Low 12.0-16.0 [facility] Comment on above: Performed By: #### 1 2618531, 9128631, 5249031, 3400266 ####[facility] [address] [place] [address] Hypochromia Auto Ql (Bld) PRESENT Invalid Interpretation Code [facility] Comment on above: Performed By: #### 1 1818935, 0013294, 4647251, 1803084 ####[facility] [address] [place] [address] MCH (RBC) [Entitic mass] 25.7 pg Low 27.0-34.0 [facility] Comment on above: Performed By: #### 1 0641331, 2675701, 0967783, 7289582 ####[place] [address] [place] [address] MCHC (RBC) [Mass/Vol] 32.1 g/dL Normal 31.4-36.0 [facility] Comment on above: Performed By: #### 1 2808748, 9212093, 1085622, 4770590 ####[address] [address] MCV (RBC) [Entitic vol] 80.2 fL Normal 80.0-100.0 [facility] Comment on above: Performed By: #### 1 4229038, 4029497, 8797963, 7785236 ####[facility] [address] [place] [address] Ovalocytes LM Ql (Bld) PRESENT Invalid Interpretation Code [facility] Comment on above: Performed By: #### 1 6689221, 4603286, 1074876, 6428109 ####[facility] [address] [place] [address] Platelet mean volume (Bld) [Entitic vol] 9.0 fL Normal 6.4-10.8 [facility] Comment on above: Performed By: #### 1 5309335, 4676778, 9776206, 1892605 ####[facility] [address] [place] [address] Platelets (Bld) [#/Vol] 177.0 E9/L Normal 150.0-500.0 [facility] Comment on above: Performed By: #### 1 7634192, 9115897, 9182467, 9450748 ####[facility] [address] [place] [address] RBC (Bld) [#/Vol] 3.9 E12/L Low 4.3-5.9 [facility] Comment on above: Performed By: #### 1 5043656, 3782460, 1864191, 0161491 ####[facility] [address] [place] [address] RBC size Nom (Bld) NORMAL Invalid Interpretation Code [facility] Comment on above: Performed By: #### 1 6820464, 4844185, 7503142, 0895334 ####[facility] [address] [place] [address] WBC corrected for nucl RBC Auto (Bld) [#/Vol] 8.0 E9/L Normal 4.0-11.0 [facility] Comment on above: Performed By: #### 1 8246035, 9478998, 2616082, 4826468 ####[facility] [address] [place] [address] CHEMISTRYOrdered By: SYSTEM SYSTEM on 07-10-2023 Albumin [Mass/Vol] 2.9 g/dL Low 3.3 - 5.0 gm/dL R emisol Chem Albumin/Globulin [Mass ratio] 1.1 {ratio} Normal 1.1 - 2.2 Remisol Chem ALP [Catalytic activity/Vol] 114 [iU]/d High 21 - 98 Int._Unit/L Remisol Chem ALT No additional P-5'-P [Catalytic activity/Vol] 9 [iU]/d Normal 6 - 46 Int._Unit/L Remisol Chem Anion gap [Moles/Vol] 12 mmol/L Normal 6 - 16 mEq/L R emisol Chem AST [Catalytic activity/Vol] 11 [iU]/d Normal 5 - 43 Int._Unit/L Remisol Chem Bilirubin [Mass/Vol] 0.3 mg/dL Normal 0.0 - 1.1 mg/dL Remisol Chem Calcium [Mass/Vol] 7.6 mg/dL Low 8.9 - 11. 1 mg/dL Remisol Chem Chloride [Moles/Vol] 107 mmol/L Normal 101 - 1 11 mmol/L Remisol Chem CO2 [Moles/Vol] 18 mmol/L Low 21 - 31 mmol/L Remis ol Chem Creatinine [Mass/Vol] 0.9 mg/dL Normal 0.5 - 1.3 mg/d L Remisol Chem eGFR 71 mL/min/1.73 m2 Normal >=59mL/min /1.73 m2 Remisol Chem Globulin (S) [Mass/Vol] 2.6 g/dL Normal 1.4 - 4.0 gm/dL Remisol Chem Glucose [Mass/Vol] 255 mg/dL High 55 - 199 mg/dL Re misol Chem Potassium [Moles/Vol] 4.0 mmol/L Normal 3.5 - 5.3 mmol/L Remisol Chem Protein [Mass/Vol] 5.5 g/dL Low 6.0 - 7.8 gm/dL R emisol Chem Sodium [Moles/Vol] 133 mmol/L Low 135 - 145 mmol/L Remisol Chem Urea nitrogen [Mass/Vol] 23 mg/dL High 5 - 21 mg/dL Remisol Chem Urea nitrogen/Creatinine [Mass ratio] 26 mg/mg High 10 - 20 Remisol Chem Anion gap [Moles/Vol] 12 mmol/L Normal 6 - 16 mEq/L R emisol Chem Calcium [Mass/Vol] 7.8 mg/dL Low 8.9 - 11. 1 mg/dL Remisol Chem Chloride [Moles/Vol] 109 mmol/L Normal 101 - 1 11 mmol/L Remisol Chem CO2 [Moles/Vol] 19 mmol/L Low 21 - 31 mmol/L Remis ol Chem Creatinine [Mass/Vol] 0.8 mg/dL Normal 0.5 - 1.3 mg/d L Remisol Chem eGFR 82 mL/min/1.73 m2 Normal >=59mL/min /1.73 m2 Remisol Chem Glucose [Mass/Vol] 95 mg/dL Normal 55 - 199 mg/dL Re misol Chem Magnesium [Mass/Vol] 1.9 mg/dL Normal 1.3 - 2.4 mg/dL Remisol Chem Potassium [Moles/Vol] 3.6 mmol/L Normal 3.5 - 5.3 mmol/L Remisol Chem Sodium [Moles/Vol] 136 mmol/L Normal 135 - 145 mmol/L Remisol Chem Urea nitrogen [Mass/Vol] 23 mg/dL High 5 - 21 mg/dL Remisol Chem Urea nitrogen/Creatinine [Mass ratio] 29 mg/mg High 10 - 20 Remisol Chem CHEMISTRYOrdered By: Lab ROP User on 07-10-2023 Glucose [Mass/Vol] 101 mg/dL High 55 - 99 mg/dL FTM C POC Subsection Comment on above: Result Comment: Heaven jean RN/ POC Device SN [id number] 1 Invalid Interpretation Code FT POC Subsection POC User ID [id number] 1 Invalid Interpretation Code FT POC Subsection POC Username VIKASH STEIN Invalid Interpretation Code [facility] POC Subsection Glucose [Mass/Vol] 181 mg/dL High 55 - 99 mg/dL FTM C POC Subsection Comment on above: Result Comment: Heaven jean RN/ POC Device SN [id number] 1 Invalid Interpretation Code FT POC Subsection POC User ID [id number] 1 Invalid Interpretation Code [facility] POC Subsection POC Username DAYSI HELLER Invalid Interpretation Code [facility] POC Subsection CMPon 07-10-2023 Albumin [Mass/Vol] 2.9 g/dL Low 3.3-5.0 [facility] Comment on above: Performed By: #### 1 [id number], 0440771, 0679979 ####[facility] [address] [place] [address] Albumin/Globulin (S) [Mass conc ratio] 1.1 Normal 1.1-2.2 [facility] Comment on above: Performed By: #### 1 6705631, 1519738, 4849425 ####[facility] [address] [place] [address] ALP [Catalytic activity/Vol] 114 Int._Unit/L High 21-98 [facility] Comment on above: Performed By: #### 1 3591845, 7560864, 5984467 ####[facility] [address] [place] [address] ALT No additional P-5'-P [Catalytic activity/Vol] 9 Int._Unit/L Normal 6-46 [facility] Comment on above: Performed By: #### 1 5376011, 6220639, 4779392 ####[facility] [address] [place] [address] Anion gap [Moles/Vol] 12 mmol/L Normal 6-16 [facility] Comment on above: Performed By: #### 1 1999553, 6186530, 4808137 ####[facility] [address] [place] [address] AST [Catalytic activity/Vol] 11 Int._Unit/L Normal 5-43 [facility] Comment on above: Performed By: #### 1 8528318, 5697415, 5796731 ####[facility] [address] [place] [address] Bilirubin [Mass/Vol] 0.3 mg/dL Normal 0.0-1.1 [facility] Comment on above: Performed By: #### 1 3643009, 4937301, 2232643 ####[facility] [address] [place] [address], [place] [address] Calcium [Mass/Vol] 7.6 mg/dL Low 8.9-11.1 [facility] Comment on above: Performed By: #### 1 9709777, 2947582, 4366938 ####[facility] [address] [place] [address] Chloride [Moles/Vol] 107 mmol/L Normal 101-111 [facility] Comment on above: Performed By: #### 1 1655217, 0745340, 5152534 ####[facility] [address] [place] [address] CO2 [Moles/Vol] 18 mmol/L Low 21-31 [facility] Comment on above: Performed By: #### 1 7093426, 1412584, 5899169 ####[facility] [address] [place] [address] Creatinine [Mass/Vol] 0.9 mg/dL Normal 0.5-1.3 [facility] Comment on above: Performed By: #### 1 8837362, 9474548, 2929259 ####[facility] [address] [place] [address] Globulin (S) [Mass/Vol] 2.6 g/dL Normal 1.4-4.0 [facility] Comment on above: Performed By: #### 1 4257335, 5520148, 0346134 ####[facility] [address] [place] [address] Glucose [Mass/Vol] 255 mg/dL High 55-199 [facility] Comment on above: Performed By: #### 1 0087147, 6495643, 1511674 ####[facility] [address] [place] [address] Potassium [Moles/Vol] 4.0 mmol/L Normal 3.5-5.3 [facility] Comment on above: Performed By: #### 1 4708803, 9099509, 8927400 ####[facility] [address] [place] [address] Protein [Mass/Vol] 5.5 g/dL Low 6.0-7.8 [facility] Comment on above: Performed By: #### 1 6097673, 9060716, 4171099 ####[facility] [address] [place] [address] Sodium [Moles/Vol] 133 mmol/L Low 135-145 [facility] Comment on above: Performed By: #### 1 2520767, 6347602, 8635291 ####[facility] [address] [place] [address] Urea nitrogen [Mass/Vol] 23 mg/dL High 5-21 [facility] Comment on above: Performed By: #### 1 0427001, 0764230, 3601728 ####[facility] [address] [place] [address] Urea nitrogen/Creatinine [Mass ratio] 26 No Units High 10-20 [facility] Comment on above: Performed By: #### 1 6165074, 2523850, 8871043 ####[facility] [address] [place] [address] Capillary Glucose POCon Glucose [Mass/Vol] 101 mg/dL High 55-99 [facility] Comment on above: Result Comment: Heaven jean RN/ Performed By: #### 2 [id number] ####[facility] [address] [place] [address] Glucose [Mass/Vol] 181 mg/dL High 55-99 [facility] Comment on above: Result Comment: Heaven jean RN/ Performed By: #### 2 [id number] ####[facility] [address] [place] [address] Discharge Note-Nursingon Discharge Note-Nursing Normal [address] [place], [place] [id number]- \.br\ New Follow Up Appointments after Discharge\.br \ Follow Up with Lázaro Riddle When: 07/17/2023 07:45 AM EDT\.br\ Comments:\.br\ Call for followup appointment\.br \ Where:\.br\ [address] [place] [address]\.br\ [place] [address]-\.br\ Business (2)\.br\ Follow Up with Follow up with your oncologist When: \.br\ Comments:\.br\ Keep scheduled appointment\.br \ Medications\.br \ What How Much When Why Instructions Next Dose\.br\ Unchanged aspirin (aspirin 81 mg Oral EC Tab) 1 Tablets By Mouth Every day 07/10 @ 9 AM\.br\ Unchanged atorvastatin (atorvastatin 20 mg Tab) 1 Tablets By Mouth At bedtime 07/09 @ 9 PM\.br\ Unchanged atropine-diphen oxylate (Lomotil 0.025 mg-2.5 mg Tab) 2 Tablets By Mouth 4 times a day as needed for for loose stool Chemotherapy induced diarrhea NEEDED FOR LOOSE STOOL\.br\ Unchanged clopidogrel (clopidogrel 75 mg Tab) 1 Tablets By Mouth Every day 07/10 @ 9 AM\.br\ Unchanged dicyclomine (dicyclomine 20 mg Tab) 1 Tablets By Mouth 3 times a day 30 to 60 minutes before meals BEFORE MEALS\.br\ Unchanged dulaglutide (Trulicity Pen 0.75 mg/ 0.5 mL subcutaneous solution) 0.75 Milligram Subcutaneous Every week PREVIOSULY TAKEN\.br\ Unchanged furosemide (furosemide 40 mg Tab) 1 Tablets By Mouth Every day 07/10 @ 9 AM\.br\ Unchanged glipiZIDE (glipiZIDE 10 mg Tab) 1 Tablets By Mouth 2 times a day 07/09 @ 9 PM\.br\ Unchanged insulin glargine (Lantus Solostar Pen 100 units/ mL subcutaneous solution) See instructions INJECT 20 UNITS SUBCUTANEOUSLY TWICE A DAY 07/09 @ 9 PM\.br\ Unchanged insulin lispro (HumaLOG KwikPen 100 units/ mL injectable solution) See instructions INJECT 15 UNITS SUBCUTANEOUSLY 3 TIMES A DAY. MAX DOSE OF 45 IN A DAY BEFORE MEALS\.br\ Unchanged lisinopril (lisinopril 30 mg Tab) 1 Tablets By Mouth Every day 07/10 @ 9 AM\.br\ Unchanged loperamide (Immodium A-D 2 mg Tab) As needed NEEDED FOR LOOSE STOOLS\.br\ Unchanged metformin (MetFORMIN (Eqv-Glucophage XR) 500 mg oral tablet, extended release) See instructions TAKE 2 TABLETS BY MOUTH TWICE A DAY 07/09 @9 PM\.br\ Unchanged metoprolol (metoprolol tartrate 100 mg Tab) 1 Tablets By Mouth 2 times a day 07/09 @ PM\.br\ Unchanged Misc Prescription (Freestyle Brady 2 Flash Glucose Monitoring 14 Day System (Boyce)) See instructions Congestive heart failure, unspecified HF chronicity, unspecified heart failure type Infection of great toe Controlled type 2 diabetes mellitus with other skin complication, without long-term current use of insulin BMI 36.0-36.9,adult Class 1 obesity due to excess calories in adult Smoker Freestyle Brady Flash Glucose Monitoring 14 Day System (Boyce) \.br\ Unchanged Misc Prescription (Freestyle Brady 2 Flash Glucose Monitoring 14 Day System (Sensor)) See instructions Congestive heart failure, unspecified HF chronicity, unspecified heart failure type Infection of great toe Controlled type 2 diabetes mellitus with other skin complication, without long-term current use of insulin BMI 36.0-36.9,adult Class 1 obesity due to excess calories in adult Smoker Freestyle Brady Flash Glucose Monitoring 14 Day System (Sensor). Replace sensor every 14 days. \.br\ Unchanged Misc Prescription (ShopYourWorldstyle Brady 2 Boyce) See instructions Congestive heart failure, unspecified HF chronicity, unspecified heart failure type Infection of great toe Controlled type 2 diabetes mellitus with other skin complication, without long-term current use of insulin BMI 36.0-36.9,adult Class 1 obesity due to excess calories in adult Smoker use as directed \.br\ Unchanged Misc Prescription (Sure comfort 30gx5/ 16 pen needle) See instructions Congestive heart failure, unspecified HF chronicity, unspecified heart failure type Infection of great toe Controlled type 2 diabetes mellitus with other skin complication, without long-term current use of insulin BMI 36.0-36.9,adult Class 1 obesity due to excess calories in adult Smoker twice daily for insulin \.br\ Unchanged Misc Prescription (sure comfort pen needle 30 gauge x 5/ 16) See instructions use bid for E10.8 \.br\ Unchanged ondansetron (ondansetron 8 mg Tab) 1 Tablets By Mouth 3 times a day as needed for Nausea/Vomiting NEEDED FOR NAUSEA/VOMITING \.br\ Unchanged pantoprazole (Pantoprazole [address] Tab) 40 Milligram By Mouth 2 times a day 07/09 @ 9 PM\.br\ Unchanged spironolactone (spironolactone 50 mg Tab) 1 Tablets By Mouth Every day 07/10 @ 9 AM\.br\ Test Results\.br\ CBC \.br\ BMP \.br\ WBC: 8 E9/L (07/10/23 05:50:00)\.br\ Glucose Lvl: 95 mg/dL (07/10/23 05:50:00)\.br\ RBC: 3.9 E12/L Low (07/10/23 05:50:00)\.br\ BUN: 23 mg/dL High (07/10/23 05:50:00)\.br\ HGB: 10 gm/dL Low (07/10/23 05:50:00)\.br\ Creatinine: 0.8 mg/dL (07/10/23 05:50:00)\.br\ Hct: 31 % Low (07/10/23 05:50:00)\.br\ BUN/Creat Ratio: 29 High (07/10/23 05:50:00)\.br\ MCV: 80.2 fL (07/10/23 05:50:00)\.br\ Sodium Lvl: 136 mmol/L (07/10/23 05:50:00)\.br\ MCH: 25.7 pg Low (07/10/23 05:50:00)\.br\ Potassium Lvl: 3.6 mmol/L (07/10/23 05:50:00)\.br\ MCHC: 32.1 gm/dL (07/10/23 05:50:00)\.br\ Chloride: 109 mmol/L (07/10/23 05:50:00)\.br\ RDW: 25.4 % High (07/10/23 05:50:00)\.br\ CO2: 19 mmol/L Low (07/10/23 05:50:00)\.br\ Platelet: 177 E9/L (07/10/23 05:50:00)\.br\ AGAP: 12 mEq/L (07/10/23 05:50:00)\.br\ MPV: 9 fL (07/10/23 05:50:00)\.br\ Calcium Lvl: 7.8 mg/dL Low (07/10/23 05:50:00)\.br\ Allergies\.br\ albuterol (Severe)\.br\ sulfa drugs (Mild)\.br\ Problems\.br\ Ongoing - Any problem that you are currently receiving treatment for.\.br\ Advanced care planning/counse ling discussion\.br\ Allergic eczema\.br\ Anemia\.br\ BMI 38.0-38.9,adult \.br\ Cancer related pain\.br\ Cardiomyopathy due to hypertension, without heart failure\.br\ Chronic obstructive pulmonary disease\.br\ Congestive heart failure\.br\ Controlled type 2 diabetes mellitus with other skin complication, without long-term current use of insulin\.br\ Diabetic retinopathy\.br \ Diarrhea\.br\ Encounter for care related to Port-a-Cath\.br \ Hx of cerebral infarction\.br\ Hypercholestero lemia\.br\ Infection of great toe\.br\ Obesity due to excess calories\.br\ Other specified counseling\.br\ Pancreas cancer\.br\ Pancreatic cancer\.br\ Poor venous access\.br\ Primary hypertension\.b r\ Smoker\.br\ Education Materials\.br\ Colitis\.br\ \.br\ Colitis is a condition in which the colon is inflamed. It can cause diarrhea, blood in the stool, and abdominal pain. Colitis can last a short time (be acute), or it may last a long time (become chronic).\.br\ What are the causes?\.br\ This condition may be caused by:\.br\ ? \.br\ Infections from viruses or bacteria.\.br\ ? \.br\ A reaction to medicine.\.br\ ? \.br\ Certain autoimmune diseases, such as Crohn's disease or ulcerative colitis.\.br\ ? \.br\ Radiation treatment.\.br\ ? \.br\ Decreased blood flow to the bowel (ischemia).\.br \ What are the signs or symptoms?\.br\ Symptoms of this condition include:\.br\ ? \.br\ Diarrhea, blood in the stool, or black, tarry stool.\.br\ ? \.br\ Pain in the joints or abdominal pain.\.br\ ? \.br\ Fever or fatigue.\.br\ ? \.br\ Vomiting.\.br\ ? \.br\ Weight loss.\.br\ ? \.br\ Bloating.\.br\ ? \.br\ Having fewer bowel movements than usual.\.br\ ? \.br\ A strong and sudden urge to have a bowel movement.\.br\ ? \.br\ Feeling like the bowel is not empty after a bowel movement.\.br\ How is this diagnosed?\.br\ This conditi [facility] HEMATOLOGYOrdered By: SYSTEM SYSTEM on 07-10-2023 Acanthocytes LM Ql (Bld) PRESENT *NA* (07/10/23 10:50 AM) Invalid Interpretation Code Remisol Heme Anisocytosis Ql (Bld) PRESENT *NA* (07/10/23 10:50 AM) Invalid Interpretation Code Remisol Heme Band form neutrophils/100 WBC (Bld) 4 % Normal 0 - 6 % Remisol Heme Basophils (Bld) [#/Vol] 0.0 E9/L Normal 0.0 - 0.2 E9/L Remisol Heme Basophils/100 WBC (Bld) 0.0 % Normal 0.0 - 2.0 % Remisol Heme Eosinophils (Bld) [#/Vol] 0.1 E9/L Normal 0.0 - 0.5 E9/L Remisol Heme Eosinophils/100 WBC (Bld) 1.0 % Normal 0.0 - 8.0 Remisol Heme Erythrocyte distribution width (RBC) [Ratio] 25.3 % High 10.9 - 14.2 % Remisol Heme Hematocrit (Bld) [Volume fraction] 31.6 % Low 34.0 - 46.0 % Remisol Heme Hemoglobin (Bld) [Mass/Vol] 9.9 g/dL Low 12.0 - 16.0 gm/dL Remisol Heme Hypochromia Auto Ql (Bld) PRESENT *NA* (07/10/23 10:50 AM) Invalid Interpretation Code Remisol Heme Lymphocytes (Bld) [#/Vol] 1.4 E9/L Normal 1.0 - 4.0 E9/L Remisol Heme Lymphocytes/100 WBC (Bld) 14.0 % Normal 14.0 - 50.0 % Remisol Heme MCH (RBC) [Entitic mass] 25.4 pg Low 27.0 - 34.0 pg Remisol Heme MCHC (RBC) [Mass/Vol] 31.3 g/dL Low 31.4 - 36.0 gm/dL Remisol Heme MCV (RBC) [Entitic vol] 81.1 fL Normal 80.0 - 100.0 fL Remisol Heme Metamyelocytes/Leukoc ytes Manual cnt (Bld) [Pure # fraction] 5 % High 0 - 0 % Remisol Heme Monocytes (Bld) [#/Vol] 0.6 E9/L Normal 0.2 - 1.0 E9/L Remisol Heme Monocytes/100 WBC (Bld) 6.0 % Normal 4.0 - 14.0 % Remisol Heme Neutrophils (Bld) [#/Vol] 7.2 E9/L Invalid Interpretation Code Remisol Heme Ovalocytes LM Ql (Bld) PRESENT *NA* (07/10/23 10:50 AM) Invalid Interpretation Code Remisol Heme Platelet 210.0 E9/L Normal 150.0 - 500.0 E9/L Remisol Heme Platelet mean volume (Bld) [Entitic vol] 8.5 fL Normal 6.4 - 10.8 fL Remisol Heme RBC (Bld) [#/Vol] 3.9 E12/L Low 4.3 - 5.9 E12/L Re misol Heme RBC size Nom (Bld) SEE MORPHOLOGY *NA* (07/10/23 10:50 AM) Invalid Interpretation Code Remisol Heme Segmented neutrophils/100 WBC (Bld) 70 % Normal 50 - 70 % Remisol Heme Toxic granules LM Ql (Bld) PRESENT *NA* (07/10/23 10:50 AM) Invalid Interpretation Code Remisol Heme WBC corrected for nucl RBC Auto (Bld) [#/Vol] 9.7 E9/L Normal 4.0 - 11.0 E9/L Remisol Heme Erythrocyte distribution width (RBC) [Ratio] 25.4 % High 10.9 - 14.2 % Remisol Heme Hematocrit (Bld) [Volume fraction] 31.0 % Low 34.0 - 46.0 % Remisol Heme Hemoglobin (Bld) [Mass/Vol] 10.0 g/dL Low 12.0 - 16.0 gm/dL Remisol Heme Hypochromia Auto Ql (Bld) PRESENT *NA* (07/10/23 5:50 AM) Invalid Interpretation Code Remisol Heme MCH (RBC) [Entitic mass] 25.7 pg Low 27.0 - 34.0 pg Remisol Heme MCHC (RBC) [Mass/Vol] 32.1 g/dL Normal 31.4 - 36.0 gm/dL Remisol Heme MCV (RBC) [Entitic vol] 80.2 fL Normal 80.0 - 100.0 fL Remisol Heme Ovalocytes LM Ql (Bld) PRESENT *NA* (07/10/23 5:50 AM) Invalid Interpretation Code Remisol Heme Platelet mean volume (Bld) [Entitic vol] 9.0 fL Normal 6.4 - 10.8 fL Remisol Heme Platelets (Bld) [#/Vol] 177.0 E9/L Normal 150.0 - 500.0 E9/L Remisol Heme RBC (Bld) [#/Vol] 3.9 E12/L Low 4.3 - 5.9 E12/L Re misol Heme RBC size Nom (Bld) NORMAL *NA* (07/10/23 5:50 AM) Invalid Interpretation Code Remisol Heme WBC corrected for nucl RBC Auto (Bld) [#/Vol] 8.0 E9/L Normal 4.0 - 11.0 E9/L Remisol Heme Inpatient Clinical Summaryon 07-10-2023 Inpatient Clinical Summary Normal [facility] Inpatient Patient Summaryon 07-10-2023 Inpatient Patient Summary Normal [facility] Interdisciplinary Note - Rufus e Manageron 07-10-2023 Interdisciplinary Note - Gis Administrator Patient DC before CRM to room Normal [facility] Comment on above: Result Comment: Elec tronically Signed By: Jayna Garcia\.br\Date and Time Signed: 07/10/23 12:16 EDT Magnesiumon 07-10-2023 Magnesium [Mass/Vol] 1.9 mg/dL Normal 1.3-2.4 [facility] Comment on above: Performed By: #### 1 [id number], 7391120, 9380057, [id number] ####[facility] [address] [place] [address] Monitor Recordon 07-10-2023 Monitor Record [id number]# 1.00TIFF Normal [facility] Monitor Record [id number]# 1.00TIFF Normal [facility] eGFRon 07-10-2023 eGFR 71 mL/min/1.73 m2 Normal >=59 [facility] Comment on above: Order Comment: Order added by Discern Expert. Performed By: #### 1 [id number], [id number], [id number] ####[facility] [address] [place] [address] eGFR 82 mL/min/1.73 m2 Normal >=59 [facility] Comment on above: Order Comment: Order added by Discern Expert. Performed By: #### 1 [id number], 1859492, 2338496, 9428548 ####[facility] [address] [place] [address] BMPon 07-09-2023 Anion gap [Moles/Vol] 12 mmol/L Normal 6-16 [facility] Comment on above: Performed By: #### 1 [id number], [id number] ####[facility] [address] [place] [address] Calcium [Mass/Vol] 7.6 mg/dL Low 8.9-11.1 [facility] Comment on above: Performed By: #### 1 3008833, 3180397 ####[facility] [address] [place] [address] Chloride [Moles/Vol] 106 mmol/L Normal 101-111 [facility] Comment on above: Performed By: #### 1 8908667, 3966570 ####[facility] [address] [place] [address] CO2 [Moles/Vol] 16 mmol/L Low 21-31 [facility] Comment on above: Performed By: #### 1 3939091, 4242153 ####[facility] [address] [place] [address] Creatinine [Mass/Vol] 1.0 mg/dL Normal 0.5-1.3 [facility] Comment on above: Performed By: #### 1 2822508, 7697598 ####[facility] [address] [place] [address] Glucose [Mass/Vol] 251 mg/dL High 55-199 [facility] Comment on above: Performed By: #### 1 7994949, 2556130 ####[facility] [address] [place] [address] Potassium [Moles/Vol] 3.7 mmol/L Normal 3.5-5.3 [facility] Comment on above: Performed By: #### 1 9041169, 6975167 ####[facility] [address] [place] [address] Sodium [Moles/Vol] 130 mmol/L Low 135-145 [facility] Comment on above: Performed By: #### 1 0191837, 2720620 ####[facility] [address] [place] [address] Urea nitrogen [Mass/Vol] 26 mg/dL High 5-21 [facility] Comment on above: Performed By: #### 1 5201068, 0127256 ####[facility] [address] [place] [address] Urea nitrogen/Creatinine [Mass ratio] 26 No Units High 10-20 [facility] Comment on above: Performed By: #### 1 2117572, 9549919 ####[facility] [address] [place] [address] CBC w/Indiceson 07-09-2023 Anisocytosis Ql (Bld) PRESENT Invalid Interpretation Code [facility] Comment on above: Performed By: #### 2 169624 ####[facility] [address] [place] [address] Erythrocyte distribution width (RBC) [Ratio] 24.7 % High 10.9-14.2 [facility] Comment on above: Performed By: #### 2 397142 ####[facility] [address] [place] [address] Hematocrit (Bld) [Volume fraction] 27.3 % Low 34.0-46.0 [facility] Comment on above: Performed By: #### 2 247644 ####[facility] [address] [place] [address] Hemoglobin (Bld) [Mass/Vol] 8.7 g/dL Low 12.0-16.0 [facility] Comment on above: Performed By: #### 2 459244 ####[facility] [address] [place] [address] MCH (RBC) [Entitic mass] 25.6 pg Low 27.0-34.0 [facility] Comment on above: Performed By: #### 2 813269 ####[facility] [address] [place] [address] MCHC (RBC) [Mass/Vol] 31.9 g/dL Normal 31.4-36.0 [facility] Comment on above: Performed By: #### 2 905652 ####[facility] [address] [place] [address] MCV (RBC) [Entitic vol] 80.3 fL Normal 80.0-100.0 [facility] Comment on above: Performed By: #### 2 789251 ####[facility] [address] [place] [address] Ovalocytes LM Ql (Bld) PRESENT Invalid Interpretation Code [facility] Comment on above: Performed By: #### 2 113250 ####[facility] [address] [place] [address] Platelet 143.0 E9/L Low 150.0-500.0 [facility] Comment on above: Performed By: #### 2 543170 ####[facility] [address] [place] [address] Platelet mean volume (Bld) [Entitic vol] 8.7 fL Normal 6.4-10.8 [facility] Comment on above: Performed By: #### 2 010559 ####[facility] [address] [place] [address] Poikilocytosis Auto Ql (Bld) PRESENT Invalid Interpretation Code [facility] Comment on above: Performed By: #### 2 567261 ####[facility] [address] [place] [address] RBC (Bld) [#/Vol] 3.4 E12/L Low 4.3-5.9 [facility] Comment on above: Performed By: #### 2 362404 ####[facility] [address] [place] [address] WBC corrected for nucl RBC Auto (Bld) [#/Vol] 5.2 E9/L Normal 4.0-11.0 [facility] Comment on above: Performed By: #### 2 940830 ####[facility] [address] [place] [address] CHEMISTRYOrdered By: Lab ROP User on 07-09-2023 Glucose [Mass/Vol] 174 mg/dL High 55 - 99 mg/dL [facility] C POC Subsection Comment on above: Result Comment: [facility] POC Device SN [id number] 1 Invalid Interpretation Code [facility] POC Subsection POC User ID [id number] 1 Invalid Interpretation Code [facility] POC Subsection POC Username DOUGLAS WONG Invalid Interpretation Code [facility] POC Subsection CHEMISTRYOrdered By: SYSTEM SYSTEM on 07-09-2023 Anion gap [Moles/Vol] 12 mmol/L Normal 6 - 16 mEq/L R emisol Chem Calcium [Mass/Vol] 7.6 mg/dL Low 8.9 - 11. 1 mg/dL Remisol Chem Chloride [Moles/Vol] 106 mmol/L Normal 101 - 1 11 mmol/L Remisol Chem CO2 [Moles/Vol] 16 mmol/L Low 21 - 31 mmol/L Remis ol Chem Creatinine [Mass/Vol] 1.0 mg/dL Normal 0.5 - 1.3 mg/d L Remisol Chem eGFR 63 mL/min/1.73 m2 Normal >=59mL/min /1.73 m2 Remisol Chem Glucose [Mass/Vol] 251 mg/dL High 55 - 199 mg/dL Re misol Chem Potassium [Moles/Vol] 3.7 mmol/L Normal 3.5 - 5.3 mmol/L Remisol Chem Sodium [Moles/Vol] 130 mmol/L Low 135 - 145 mmol/L Remisol Chem Urea nitrogen [Mass/Vol] 26 mg/dL High 5 - 21 mg/dL Remisol Chem Urea nitrogen/Creatinine [Mass ratio] 26 mg/mg High 10 - 20 Remisol Chem Capillary Glucose POCon Glucose [Mass/Vol] 174 mg/dL High 55-99 [facility] Comment on above: Result Comment: [facility] Performed By: #### 2 [id number] ####[facility] [address] [place] [address] Glucose [Mass/Vol] 157 mg/dL High 55-99 [facility] Comment on above: Result Comment: [facility] Performed By: #### 2 [id number] ####[facility] [address] [place] [address] Glucose [Mass/Vol] 151 mg/dL High 55-99 [facility] Comment on above: Result Comment: [facility] Performed By: #### 2 [id number] ####[facility] [address] [place] [address] Glucose [Mass/Vol] 235 mg/dL High 55-99 [facility] Comment on above: Result Comment: [facility] Performed By: #### 2 [id number] ####[facility] [address] [place] [address] HEMATOLOGYOrdered By: SYSTEM SYSTEM on 07-09-2023 Anisocytosis Ql (Bld) PRESENT *NA* (07/09/23 5:56 AM) Invalid Interpretation Code Remisol Heme Erythrocyte distribution width (RBC) [Ratio] 24.7 % High 10.9 - 14.2 % Remisol Heme Hematocrit (Bld) [Volume fraction] 27.3 % Low 34.0 - 46.0 % Remisol Heme Hemoglobin (Bld) [Mass/Vol] 8.7 g/dL Low 12.0 - 16.0 gm/dL Remisol Heme MCH (RBC) [Entitic mass] 25.6 pg Low 27.0 - 34.0 pg Remisol Heme MCHC (RBC) [Mass/Vol] 31.9 g/dL Normal 31.4 - 36.0 gm/dL Remisol Heme MCV (RBC) [Entitic vol] 80.3 fL Normal 80.0 - 100.0 fL Remisol Heme Ovalocytes LM Ql (Bld) PRESENT *NA* (07/09/23 5:56 AM) Invalid Interpretation Code Remisol Heme Platelet 143.0 E9/L Low 150.0 - 500.0 E9/L Remisol Heme Platelet mean volume (Bld) [Entitic vol] 8.7 fL Normal 6.4 - 10.8 fL Remisol Heme Poikilocytosis Auto Ql (Bld) PRESENT *NA* (07/09/23 5:56 AM) Invalid Interpretation Code Remisol Heme RBC (Bld) [#/Vol] 3.4 E12/L Low 4.3 - 5.9 E12/L Re misol Heme WBC corrected for nucl RBC Auto (Bld) [#/Vol] 5.2 E9/L Normal 4.0 - 11.0 E9/L Remisol Heme Monitor Recordon 07-09-2023 Monitor Record [id number]# 1.00TIFF Normal [facility] Monitor Record [id number]# 1.00TIFF Normal [facility] Progress Note-Physicianon Progress Note-Physician Normal [facility] Comment on above: Result Comment: Elec tronically Signed By: Radha Branch\.br\Date and Time Signed: 07/08/23 08:43 EDT\.br\Electronically Co-Signed By: Anay MISTRY, Stu\.br\Date and Time Co-Signed: 07/09/23 12:34 EDT Progress Note-Physician Normal [facility] Comment on above: Result Comment: Elec tronically Signed By: Cecile HILTON\.br\Date and Time Signed: 07/09/23 12:08 EDT\.br\Electronically Co-Signed By: Rhiannon MOSQUERA MD\.br\Date and Time Co-Signed: 07/09/23 12:32 EDT eGFRon 07-09-2023 eGFR 63 mL/min/1.73 m2 Normal >=59 [facility] Comment on above: Order Comment: Order added by Discern Expert. Performed By: #### 1 [id number], [id number] ####[facility] [address] [place] [address] BMPon 07-08-2023 Anion gap [Moles/Vol] 13 mmol/L Normal 6-16 [facility] Comment on above: Order Comment: Line drawper shazia lopez rn [id number] 07/08/2023 10:47:13 EDT Performed By: #### 2 659623, [id number] ####[facility] [address] [place] [address] Calcium [Mass/Vol] 8.0 mg/dL Low 8.9-11.1 [facility] Comment on above: Order Comment: Line drawper phleb percy, gave rn millicent packet [id number] 07/08/2023 10:47:13 EDT Performed By: #### 2 004031, [id number] ####[facility] [address] [place] [address] Chloride [Moles/Vol] 106 mmol/L Normal 101-111 [facility] Comment on above: Order Comment: Line drawper phleb percy, gave rn millicent packet [id number] 07/08/2023 10:47:13 EDT Performed By: #### 2 976045, [id number] ####[facility] [address] [place] [address] CO2 [Moles/Vol] 16 mmol/L Low 21-31 [facility] Comment on above: Order Comment: Line drawper phleb percy, gave rn millicent packet [id number] 07/08/2023 10:47:13 EDT Performed By: #### 2 992680, 12735102 ####[facility] [address] [place] [address] Creatinine [Mass/Vol] 0.9 mg/dL Normal 0.5-1.3 [facility] Comment on above: Order Comment: Line drawper phleb percy, gave rn millicent packet [id number] 07/08/2023 10:47:13 EDT Performed By: #### 2 108100, [id number] ####[facility] [address] [place] [address] Glucose [Mass/Vol] 200 mg/dL High 55-199 [facility] Comment on above: Order Comment: Line drawper phleb percy, gave rn millicent packet [id number] 07/08/2023 10:47:13 EDT Performed By: #### 2 601060, [id number] ####[facility] [address] [place] [address] Potassium [Moles/Vol] 4.4 mmol/L Normal 3.5-5.3 [facility] Comment on above: Order Comment: Line drawper phleb percy, gave rn millicent packet [id number] 07/08/2023 10:47:13 EDT Performed By: #### 2 878458, [id number] ####[facility] [address] [place] [address] Sodium [Moles/Vol] 131 mmol/L Low 135-145 [facility] Comment on above: Order Comment: Line drawper phleb percy, gave rn millicent packet [id number] 07/08/2023 10:47:13 EDT Performed By: #### 2 039533, [id number] ####[facility] [address] [place] [address] Urea nitrogen [Mass/Vol] 25 mg/dL High 5-21 [facility] Comment on above: Order Comment: Line drawper phleb percy, gave rn millicent packet [id number] 07/08/2023 10:47:13 EDT Performed By: #### 2 398560, [id number] ####[facility] [address] [place] [address] Urea nitrogen/Creatinine [Mass ratio] 28 No Units High 10-20 [facility] Comment on above: Order Comment: Line drawper phleb percy, gave rn millicent packet [id number] 07/08/2023 10:47:13 EDT Performed By: #### 2 372464, [id number] ####[facility] [address] [place] [address] Anion gap [Moles/Vol] 11 mmol/L Normal 6-16 [facility] Comment on above: Performed By: #### 1 7043624, 5752912 ####[facility] [address] [place] [address] Calcium [Mass/Vol] 7.9 mg/dL Low 8.9-11.1 [facility] Comment on above: Performed By: #### 1 3111209, 1507954 ####[facility] [address] [place] [address] Chloride [Moles/Vol] 108 mmol/L Normal 101-111 [facility] Comment on above: Performed By: #### 1 0873860, 9514000 ####[address] [place] [address] CO2 [Moles/Vol] 15 mmol/L Low 21-31 [facility] Comment on above: Performed By: #### 1 4685643, 1963060 ####[address] [address] Creatinine [Mass/Vol] 0.9 mg/dL Normal 0.5-1.3 [facility] Comment on above: Performed By: #### 1 2889475, 2759589 ####[address] [address] Glucose [Mass/Vol] 174 mg/dL Normal 55-199 [facility] Comment on above: Performed By: #### 1 9286268, 5773992 ####[address] [address] Potassium [Moles/Vol] 4.3 mmol/L Normal 3.5-5.3 [facility] Comment on above: Performed By: #### 1 9124888, 5761483 ####[address] [address] Sodium [Moles/Vol] 130 mmol/L Low 135-145 [facility] Comment on above: Performed By: #### 1 3901315, 0595801 ####[address] [address] Urea nitrogen [Mass/Vol] 26 mg/dL High 5-21 [facility] Comment on above: Performed By: #### 1 0881259, 6277040 ####[address] [address] Urea nitrogen/Creatinine [Mass ratio] 29 No Units High 10-20 [facility] Comment on above: Performed By: #### 1 3099325, 2252468 ####[address] [address] C. diff by PCRon 07-08-2023 Clostridium difficile by PCR Negative Normal Negative [facility] Comment on above: Order Comment: Order added by Discern Expert. Result Comment: This test result should be correlated with clinical presentations and medical history by a healthcare provider to determine its clinical significance. Performed By: #### 4 [id number], [id number], [id number] ####[facility] [address] [place] [address] CBC w/ Auto Diffon 4 Basophils/100 WBC (Bld) 0.8 % Normal 0.0-2.0 [facility] Comment on above: Performed By: #### 2 493152, 9955831, 1060210, 43467725, 2160900, 0784904, 0182251, 3865161 ####[address] [place] [address] Basophils/Leukocytes Auto (Bld) [Pure # fraction] 0.0 E9/L Normal 0.0-0.2 [facility] Comment on above: Performed By: #### 2 141047, 8713859, 9463122, 25247756, 7000613, 6878363, 9257258, 2523364 ####[facility] [address] [place] [address] Eosinophils (Bld) [#/Vol] 0.1 E9/L Normal 0.0-0.5 [facility] Comment on above: Performed By: #### 2 085302, 5391692, 3558517, 86178487, 6185197, 7533095, 4558918, 5126514 ####[address] [place] [address] Eosinophils/100 WBC (Bld) 2.0 % Normal 0.0-8.0 [facility] Comment on above: Performed By: #### 2 539836, 8231697, 9189690, 96681443, 6856304, 7441147, 0674246, 2083483 ####[address] [place] [address] Erythrocyte distribution width (RBC) [Ratio] 25.3 % High 10.9-14.2 [facility] Comment on above: Performed By: #### 2 587547, 3887018, 1045315, 44203779, 9200484, 1075276, 8891689, 9440206 ####[facility] [address] [place] [address] Hematocrit (Bld) [Volume fraction] 28.0 % Low 34.0-46.0 [facility] Comment on above: Performed By: #### 2 261083, 3792884, 7769164, 29959138, 5584143, 3463826, 4476472, 5784194 ####[facility] [address] [place] [address] Hemoglobin (Bld) [Mass/Vol] 9.1 g/dL Low 12.0-16.0 [facility] Comment on above: Performed By: #### 2 799277, 7814035, 2072198, 11744409, 0735370, 4857522, 1809883, 9949698 ####[facility] [address] [place] [address] Lymphocytes (Bld) [#/Vol] 1.3 E9/L Normal 1.0-4.0 [facility] Comment on above: Performed By: #### 2 054880, 9541447, 4286434, 53291737, 9158498, 0821170, 4850727, 0468478 ####[facility] [address] [place] [address] Lymphocytes/100 WBC (Bld) 38.8 % Normal 14.0-50.0 [facility] Comment on above: Performed By: #### 2 046267, 4239499, 0033074, 33688422, 6495801, 3696651, 1675720, 8478195 ####[facility] [address] [place] [address] MCH (RBC) [Entitic mass] 26.0 pg Low 27.0-34.0 [facility] Comment on above: Performed By: #### 2 541308, 2411720, 7182280, 10295758, 6463247, 6097646, 8510657, 7748270 ####[facility] [address] [place] [address] MCHC (RBC) [Mass/Vol] 32.5 g/dL Normal 31.4-36.0 [facility] Comment on above: Performed By: #### 2 894518, 8286653, 3915733, [id number], 3389671, 4660276, 7104567, 2843448 ####[address] [place] [address] MCV (RBC) [Entitic vol] 79.9 fL Low 80.0-100.0 [facility] Comment on above: Performed By: #### 2 118193, 3023623, 0964653, 53550944, 8299844, 5202975, 5441957, 3225507 ####[address] [address] Monocytes (Bld) [#/Vol] 0.4 E9/L Normal 0.2-1.0 [facility] Comment on above: Performed By: #### 2 293503, 6407669, 5619956, 32590264, 6970636, 3126571, 5133597, 2525847 ####[address] [address] Neutrophils (Bld) [#/Vol] 1.5 E9/L Low 2.0-7.5 [facility] Comment on above: Performed By: #### 2 258227, 3222364, 5114746, 73242344, 2648136, 6552894, 9118488, 9097000 ####[address] [place] [address] Neutrophils/100 WBC (Bld) 45.4 % Normal 36.0-75.0 [facility] Comment on above: Performed By: #### 2 019258, 2091952, 6653046, 08667589, 0505049, 8456213, 3003183, 9475594 ####[address] [place] [address] Platelet mean volume (Bld) [Entitic vol] 8.8 fL Normal 6.4-10.8 [facility] Comment on above: Performed By: #### 2 735299, 5013898, 3587881, 58481938, 1734762, 8275598, 4136308, 8807277 ####[facility] [address] [place] [address] Platelets (Bld) [#/Vol] 141.0 E9/L Low 150.0-500.0 [facility] Comment on above: Performed By: #### 2 367304, 0735341, 5852984, 17416815, 6460595, 9689453, 7331041, 4793676 ####[address] RBC (Bld) [#/Vol] 3.5 E12/L Low 4.3-5.9 [facility] Comment on above: Performed By: #### 2 094753, 4910125, 2042733, 76631103, 4645687, 0018036, 9295042, 2363515 ####[address] [address] WBC corrected for nucl RBC Auto (Bld) [#/Vol] 3.2 E9/L Low 4.0-11.0 [facility] Comment on above: Performed By: #### 2 501565, 9995313, 7800450, 61246843, 2592446, 6598798, 7111838, 5239066 ####[address] [address] CDiff PCRon 07-08-2023 C. difficile toxin A+B Ql (Stl) No, PCR to follow Normal [facility] Comment on above: Performed By: #### 4 35323385, 7272781955, [id number] ####[address] [place] [address] CHEMISTRYOrdered By: SYSTEM SYSTEM on 07-08-2023 Cobalamin (Vitamin B12) [Mass/Vol] 1415 pg/mL Normal 50 - 1500 pg/mL Remisol Chem Ferritin [Mass/Vol] 531 ng/mL High 11 - 307 ng/mL R emisol Chem Folate [Mass/Vol] ng/mL Normal >=6.7ng/mL Remisol Chem Iron [Mass/Vol] 19 ug/dL Low 35 - 153 mcg/dL Maxx kaley Chem Iron binding capacity [Mass/Vol] 204 ug/dL Low 250 - 400 mcg/dL Remisol Chem LDH 126 [iU]/d Normal 93 - 218 Int._Unit/L Remisol Chem Transferrin [Mass/Vol] 146 mg/dL Low 200 - 370 mg/dL Remisol Chem Capillary Glucose POCon Glucose [Mass/Vol] 247 mg/dL High 55-99 [facility] Comment on above: Result Comment: Karlee kaleb Meter Performed By: #### 2 [id number] ####[facility] [address] [place] [address] Glucose [Mass/Vol] 184 mg/dL High 55-99 [facility] Comment on above: Result Comment: Karlee kaleb Meter Performed By: #### 2 38305554 ####[facility] [address] [place] [address] Glucose [Mass/Vol] 146 mg/dL High 55-99 [facility] Comment on above: Result Comment: [facility] Performed By: #### 2 50678262 ####[facility] [address] [place] [address] Glucose [Mass/Vol] 159 mg/dL High 55-99 [facility] Comment on above: Result Comment: [facility] [employer] Performed By: #### 2 80808368 ####[facility] [address] [place] [address] Enteric Panel by PCRon 07-07 C. coli+jejuni+upsaliens is DNA CARLOS+non-probe Ql (Stl) Not detected Normal [facility] Comment on above: Result Comment: Test ing was performed utilizing reverse ship worker (RT), polymerase chain reaction (PCR), and array hybridization to detect specific gastrointestinal microbial nucleic acid gene sequences associated with the following pathogenic bacteria and viruses:Campylobacter Group (composed of C. coli, C. jejuni, and C. ivette), Salmonella species, Shigella species (including S. dysenteriae, S. boydii, S. sonnei and S. flexneri), Vibrio Group (composed of V. cholera and V. parahaemolyticus), Yersinia enterocolitica, Norovirus GI/GII, and Rotavirus A. In addition, EPdetects Shiga toxin 1 gene and Shiga toxin 2 gene virulence markers. Shiga toxin producing E. coli (STEC) typically harbor one or both genes that encode for Shiga toxins 1 and 2.Campylobacter group, Salmonella species, Shigella species, Vibrio group, Rotavirus A, Shiga Toxin 1, Shiga Toxin 2, Norovirus GI/GII, and Yersinia enterocolitica were tested by [employer] nulcleic acid test. Performed By: #### 4 15404088, [id number], [id number] ####[facility] [address] [place] [address] E. coli stx1+stx2 genes CARLOS+non-probe Ql (Stl) Negative Normal [facility] Comment on above: Performed By: #### 4 14207460, [id number], [id number] ####[facility] [address] [place] [address] Enteric Panel Intrl QC Pass Normal [facility] Comment on above: Result Comment: Test ing was performed utilizing reverse ship worker (RT), polymerase chain reaction (PCR), and array hybridization to detect specific gastrointestinal microbial nucleic acid gene sequences associated with the following pathogenic bacteria and viruses:Campylobacter Group (composed of C. coli, C. jejuni, and C. ivette), Salmonella species, Shigella species (including S. dysenteriae, S. boydii, S. sonnei and S. flexneri), Vibrio Group (composed of V. cholera and V. parahaemolyticus), Yersinia enterocolitica, Norovirus GI/GII, and Rotavirus A. In addition, EPdetects Shiga toxin 1 gene and Shiga toxin 2 gene virulence markers. Shiga toxin producing E. coli (STEC) typically harbor one or both genes that encode for Shiga toxins 1 and 2. Performed By: #### 4 39063683, [id number], [id number] ####[place] [address] Norovirus genogroup I+II RNA CARLOS+non-probe Ql (Stl) Not detected Normal [facility] Comment on above: Performed By: #### 4 79668669, 8796259875, 3590977757 ####[place] [address] Rotavirus A RNA CARLOS+non-probe Ql (Stl) Not detected Normal [facility] Comment on above: Performed By: #### 4 74600880, 6609071453, 6492950611 ####[place] [address] S. enterica+bongori DNA CARLOS+non-probe Ql (Stl) Not detected Normal [facility] Comment on above: Result Comment: This test result should be correlated with clinical presentations and medical history by a healthcare provider to determine its clinical significance. Performed By: #### 4 63996796, [id number], [id number] ####[place] [address] Shigella species+EIEC invasion plasmid antigen H ipaH gene CARLOS+non-probe Ql (Stl) Not detected Normal [facility] Comment on above: Performed By: #### 4 02611760, 7731153298, 5190835123 ####[address] V. cholerae+parahaemolyt icus+vulnificus DNA CARLOS+non-probe Ql (Stl) Not detected Normal [facility] Comment on above: Performed By: #### 4 50124434, 4231712983, 5338239792 ####Singh [address] [address] Y. enterocolitica DNA CARLOS+non-probe Ql (Stl) Not detected Normal [facility] Comment on above: Performed By: #### 4 55327331, 1235307978, 1105874899 ####Francisco [address] [address] Ferritinon 07-08-2023 Ferritin [Mass/Vol] 531 ng/mL High 11-307 [facility] Comment on above: Performed By: #### 2 064113, 2798093, 1040913, 06120597, 6181521, 1384972, 6779400, 5130569 ####Francisco [address] [address] Folateon 07-08-2023 Folate [Mass/Vol] ng/mL Normal >=6.7 [facility] Comment on above: Performed By: #### 2 489427, 0014337, 3036436, 79874508, 5579740, 5202956, 4896330, 6768810 ####Francisco [address] [address] HEMATOLOGYOrdered By: SYSTEM SYSTEM on 07-08-2023 Basophils/100 WBC (Bld) 0.8 % Normal 0.0 - 2.0 % Remisol Heme Basophils/Leukocytes Auto (Bld) [Pure # fraction] 0.0 E9/L Normal 0.0 - 0.2 E9/L Remisol Heme Eosinophils (Bld) [#/Vol] 0.1 E9/L Normal 0.0 - 0.5 E9/L Remisol Heme Eosinophils/100 WBC (Bld) 2.0 % Normal 0.0 - 8.0 % Remisol Heme Lymphocytes (Bld) [#/Vol] 1.3 E9/L Normal 1.0 - 4.0 E9/L Remisol Heme Lymphocytes/100 WBC (Bld) 38.8 % Normal 14.0 - 50.0 % Remisol Heme Monocytes (Bld) [#/Vol] 0.4 E9/L Normal 0.2 - 1.0 E9/L Remisol Heme Monocytes/100 WBC (Bld) 13.0 % Normal 4.0 - 14.0 % Remisol Heme Neutrophils (Bld) [#/Vol] 1.5 E9/L Low 2.0 - 7.5 E9/L Remisol Heme Neutrophils/100 WBC (Bld) 45.4 % Normal 36.0 - 75.0 % Remisol Heme Reticulocytes (Bld) [#/Vol] % Low 0.5 - 2.2 % Remisol Heme Ironon 07-08-2023 Iron [Mass/Vol] 19 microgram/dL Low 35-153 [facility] Comment on above: Performed By: #### 2 812766, 3099886, 0595220, 22765685, 2989273, 5813230, 6545168, 6499657 ####[facility] [address] [place] [address] LDHon 07-08-2023 LDH 126 Int._Unit/L Normal 93-218 [facility] Comment on above: Performed By: #### 2 659072, 9175027, 0710630, 82379796, 5705625, 8415259, 9066432, 0405433 ####[facility] [address] [place] [address] Monitor Recordon 07-08-2023 Monitor Record [id number]# 1.00TIFF Normal [facility] Monitor Record [id number]# 1.00TIFF Normal [facility] Progress Note-Physicianon Progress Note-Physician Normal [facility] Comment on above: Result Comment: Elec tronically Signed By: Cecile HILTON\.br\Date and Time Signed: 07/08/23 15:21 EDT\.br\Electronically Co-Signed By: Rhiannon MOSQUERA MD\.br\Date and Time Co-Signed: 07/08/23 18:42 EDT Retic Counton 07-08-2023 Reticulocytes (Bld) [#/Vol] 10*3/uL Low .5-2.2 [facility] Comment on above: Performed By: #### 2 507104, 2268800, 7789752, 75995233, 8799195, 7527488, 4325469, 4026135 ####[facility] [address] [place] [address] TIBC Calculatedon 07-08-2023 Iron binding capacity [Mass/Vol] 204 microgram/dL Low 250-400 [facility] Comment on above: Performed By: #### 2 225111, 0428161, 1829502, 64588801, 5914471, 0013044, 7610596, 9941028 ####[address] [place] [address] Transferrin [Mass/Vol] 146 mg/dL Low 200-370 [facility] Comment on above: Performed By: #### 2 727011, 6157955, 2731842, 86969600, 1857663, 6651144, 2100743, 5573826 ####[address] [place] [address] Vit B12on 07-08-2023 Cobalamin (Vitamin B12) [Mass/Vol] 1415 pg/mL Normal 50-1500 [facility] Comment on above: Performed By: #### 2 806435, 5254021, 0489991, 88581723, 6772848, 5302241, 2488329, 9549361 ####[address] [address] eGFRon 07-08-2023 eGFR 71 mL/min/1.73 m2 Normal >=59 [facility] Comment on above: Order Comment: Order added by Discern Expert. Performed By: #### 2 746611, 25040797 ####[address] [place] [address] eGFR 71 mL/min/1.73 m2 Normal >=59 [facility] Comment on above: Order Comment: Order added by Discern Expert. Performed By: #### 1 7974168, 5232952 ####[address] [place] [address] BMPon 07-07-2023 Anion gap [Moles/Vol] 13 mmol/L Normal 6-16 [facility] Comment on above: Order Comment: ta nt is a line per phleb caprice [id number] 07/07/2023 12:38:00 EDT Performed By: #### 2 391322, 76860504 ####[facility] [address] [place] [address] Calcium [Mass/Vol] 8.1 mg/dL Low 8.9-11.1 [facility] Comment on above: Order Comment: oliviae nt is a line per phleb caprice orc861 07/07/2023 12:38:00 EDT Performed By: #### 2 393931, 58732890 ####[facility] [address] [place] [address] Chloride [Moles/Vol] 112 mmol/L High 101-111 [facility] Comment on above: Order Comment: ta nt is a line per phleb caprice ope494 07/07/2023 12:38:00 EDT Performed By: #### 2 708831, 38211612 ####[facility] [address] [place] [address] CO2 [Moles/Vol] 14 mmol/L Abnormal 21-31 [facility] Comment on above: Order Comment: ta nt is a line per phleb caprice [id number] 07/07/2023 12:38:00 EDT Result Comment: Crit ical Result Verified by Repeat AnalysisCritical Result S_CO2:14 Called to and read back by: ELIZA CASTAÑEDA at: 07/07/2023 17:07:26 by:KYLAH Performed By: #### 2 438676, 38427433 ####[facility] [address] [place] [address] Creatinine [Mass/Vol] 1.0 mg/dL Normal 0.5-1.3 [facility] Comment on above: Order Comment: patie nt is a line per phleb caprice [id number] 07/07/2023 12:38:00 EDT Performed By: #### 2 428701, 20729061 ####[facility] [address] [place] [address] Glucose [Mass/Vol] 166 mg/dL Normal 55-199 [facility] Comment on above: Order Comment: patie nt is a line per phleb caprice [id number] 07/07/2023 12:38:00 EDT Performed By: #### 2 429876, 20594753 ####[facility] [address] [place] [address] Potassium [Moles/Vol] 4.6 mmol/L Normal 3.5-5.3 [facility] Comment on above: Order Comment: patie nt is a line per phleb caprice ucx777 07/07/2023 12:38:00 EDT Performed By: #### 2 663269, 63034105 ####[facility] [address] [place] [address] Sodium [Moles/Vol] 134 mmol/L Low 135-145 [facility] Comment on above: Order Comment: patie nt is a line per phleb caprice day687 07/07/2023 12:38:00 EDT Performed By: #### 2 183446, 80159642 ####[facility] [address] [place] [address] Urea nitrogen [Mass/Vol] 31 mg/dL High 5-21 [facility] Comment on above: Order Comment: patie nt is a line per phleb caprice [id number] 07/07/2023 12:38:00 EDT Performed By: #### 2 642732, 21564445 ####[facility] [address] [place] [address] Urea nitrogen/Creatinine [Mass ratio] 31 No Units High 10-20 [facility] Comment on above: Order Comment: patie nt is a line per phleb caprice [id number] 07/07/2023 12:38:00 EDT Performed By: #### 2 987763, 15809283 ####[facility] [address] [place] [place] [address] Anion gap [Moles/Vol] 14 mmol/L Normal 6-16 [facility] Comment on above: Performed By: #### 2 066163, 96377907, 455733330, 7829299, 48497757, 6191077, 8926575 ####[facility] [address] [place] [address] Calcium [Mass/Vol] 8.1 mg/dL Low 8.9-11.1 [facility] Comment on above: Performed By: #### 2 287743, 57145606, 537392087, 7422011, 94537941, 7083861, 6337558 ####[facility] [address] [place] [address] Chloride [Moles/Vol] 115 mmol/L High 101-111 [facility] Comment on above: Performed By: #### 2 840643, 32566769, 319462577, 4948044, 40542412, 3068996, 1866069 ####[facility] [address] [place] [address] CO2 [Moles/Vol] 12 mmol/L Abnormal 21-31 [facility] Comment on above: Result Comment: Crit ical Result Verified by Repeat AnalysisCritical Result S_CO2:12 Called to and read back by: AMY MALAVE at: 07/07/2023 06:49:21 by:[email or web address] Performed By: #### 2 734130, 46846703, 034437311, 7692977, 79669572, 5679093, 5078218 ####[facility] [address] [facility] [address] Creatinine [Mass/Vol] 1.0 mg/dL Normal 0.5-1.3 [facility] Comment on above: Performed By: #### 2 788594, 55786916, 489617238, 6474778, 18702649, 0125926, 0856243 ####[facility] [address] [place] [address] Glucose [Mass/Vol] 101 mg/dL Normal 55-199 [facility] Comment on above: Performed By: #### 2 951212, 66650103, 625820358, 3100090, 32790435, 0935037, 1118434 ####[facility] [address] [place] [address] Potassium [Moles/Vol] 4.6 mmol/L Normal 3.5-5.3 [facility] Comment on above: Performed By: #### 2 724363, 99928508, 136990038, 8265549, 19821028, 8152594, 6443758 ####[facility] [address] [place] [address] Sodium [Moles/Vol] 136 mmol/L Normal 135-145 [facility] Comment on above: Performed By: #### 2 453995, 18804486, 523860020, 9137009, 48978266, 5631602, 6383794 ####[facility] [address] [place] [address] Urea nitrogen [Mass/Vol] 34 mg/dL High 5-21 [facility] Comment on above: Performed By: #### 2 131014, 01456146, 959896751, 4618048, 01842224, 0138269, 7269180 ####[facility] [address] [place] [address] Urea nitrogen/Creatinine [Mass ratio] 34 No Units High 10-20 [facility] Comment on above: Performed By: #### 2 130717, 56154713, 015980029, 7854840, 84106390, 9678780, 9475599 ####[facility] [address] [place] [address] CBC w/ Auto Diffon 4 Anisocytosis Ql (Bld) PRESENT Invalid Interpretation Code [facility] Comment on above: Performed By: #### 2 396455, 21524137, 383440706, 4695246, 56265600, 0731810, 9325900 ####[facility] [address] [place] [address] Basophils/100 WBC (Bld) 1.2 % Normal 0.0-2.0 [facility] Comment on above: Performed By: #### 2 703332, 42853217, 383159016, 2591883, 68431899, 3005503, 2571796 ####[address] [place] [address] Basophils/Leukocytes Auto (Bld) [Pure # fraction] 0.0 E9/L Normal 0.0-0.2 [facility] Comment on above: Performed By: #### 2 718343, 75151973, 737121687, 2668570, 01047222, 3634322, 5354988 ####[address] [address] Eosinophils (Bld) [#/Vol] 0.1 E9/L Normal 0.0-0.5 [facility] Comment on above: Performed By: #### 2 255721, 07900718, 284761294, 9388640, 41993846, 5902607, 9012398 ####[address] [address] Eosinophils/100 WBC (Bld) 3.1 % Normal 0.0-8.0 [facility] Comment on above: Performed By: #### 2 116702, 57115400, 273859350, 9246570, 48908856, 4773684, 0420465 ####[address] [address] Erythrocyte distribution width (RBC) [Ratio] 24.7 % High 10.9-14.2 [facility] Comment on above: Performed By: #### 2 846230, 48337785, 253755648, 1058063, 55068978, 0578564, 8120198 ####[address] [place] [address] Hematocrit (Bld) [Volume fraction] 29.8 % Low 34.0-46.0 [facility] Comment on above: Performed By: #### 2 248749, 34490976, 446654242, 3997271, 27485328, 2628297, 0474755 ####[facility] [address] [place] [address] Hemoglobin (Bld) [Mass/Vol] 9.3 g/dL Low 12.0-16.0 [facility] Comment on above: Performed By: #### 2 892629, 44310642, 717391392, 6614790, 74588955, 6076541, 0922077 ####[facility] [address] [place] [address] Hypochromia Auto Ql (Bld) PRESENT Invalid Interpretation Code [facility] Comment on above: Performed By: #### 2 182911, 86511807, 200227946, 7422884, 07847423, 2914286, 2817023 ####[address] [address] Lymphocytes (Bld) [#/Vol] 0.8 E9/L Low 1.0-4.0 [facility] Comment on above: Performed By: #### 2 161327, 28443078, 434600298, 1043320, 17054112, 3617828, 1172972 ####[address] [address] Lymphocytes/100 WBC (Bld) 44.3 % Normal 14.0-50.0 [facility] Comment on above: Performed By: #### 2 330422, 30452108, 880923029, 7464826, 21254443, 0786460, 0168712 ####[address] [address] MCH (RBC) [Entitic mass] 25.6 pg Low 27.0-34.0 [facility] Comment on above: Performed By: #### 2 481298, 36904711, 689506564, 8481816, 34881611, 6201664, 8824142 ####[address] [place] [address] MCHC (RBC) [Mass/Vol] 31.3 g/dL Low 31.4-36.0 [facility] Comment on above: Performed By: #### 2 023443, 18848353, 695185802, 5774837, 18191760, 7405422, 1880925 ####[address] [place] [address] MCV (RBC) [Entitic vol] 81.7 fL Normal 80.0-100.0 [facility] Comment on above: Performed By: #### 2 392517, 74955722, 452620976, 3567285, 96506643, 4546575, 2870282 ####[facility] [address] [place] [address] Monocytes (Bld) [#/Vol] 0.4 E9/L Normal 0.2-1.0 [facility] Comment on above: Performed By: #### 2 833318, 90030836, 424415476, 6196906, 88947390, 1718045, 4160802 ####[address] [address] Neutrophils (Bld) [#/Vol] 0.6 E9/L Low 2.0-7.5 [facility] Comment on above: Performed By: #### 2 580664, 42599875, 666079674, 4391535, 97749339, 1383142, 0716545 ####[address] [address] Neutrophils/100 WBC (Bld) 29.5 % Low 36.0-75.0 [facility] Comment on above: Performed By: #### 2 683567, 35350350, 708260289, 0704922, 39507197, 4872699, 9711680 ####[facility] [address] [place] [address] Platelet mean volume (Bld) [Entitic vol] 9.2 fL Normal 6.4-10.8 [facility] Comment on above: Performed By: #### 2 668067, 32721410, 640296060, 0081606, 95444584, 2008516, 0142396 ####[facility] [address] [place] [address] Platelets (Bld) [#/Vol] 141.0 E9/L Low 150.0-500.0 [facility] Comment on above: Performed By: #### 2 380390, 43524204, 816238830, 0650748, 80760759, 4001147, 1903324 ####[facility] [address] [place] [address] RBC (Bld) [#/Vol] 3.7 E12/L Low 4.3-5.9 [facility] Comment on above: Performed By: #### 2 751049, 22728982, 747711136, 7513970, 62963370, 6122699, 8210322 ####[facility] [address] [place], [place] [address] RBC size Nom (Bld) SEE MORPHOLOGY Invalid Interpretation Code [facility] Comment on above: Performed By: #### 2 290475, 20697834, 102254579, 4024039, 10283922, 6291271, 6911577 ####[facility] [address] [place] [address] WBC corrected for nucl RBC Auto (Bld) [#/Vol] 1.9 E9/L Abnormal 4.0-11.0 [facility] Comment on above: Result Comment: Crit ical Result Verified by Repeat AnalysisResults called to HUNTER CASTAÑEDA by [id number] and read back on 07/07/2023 07:18:33. Performed By: #### 2 [id number], 29079773, [id number], 7693209, 47707096, 0961540, 9393375 ####[facility] [address] [place] [address] CHEMISTRYOrdered By: SYSTEM SYSTEM on 07-07-2023 CRP [Mass/Vol] 2.0 mg/dL High <=1.9mg/dL Remisol Ch em Magnesium [Mass/Vol] 1.5 mg/dL Normal 1.3 - 2.4 mg/dL Remisol Chem TSH Qn 1.43 m[IU]/L Normal 0.34 - 5.60 mcIU/mL Remisol Chem CHEMISTRYOrdered By: Vikash Mcguire on 07-07-2023 HbA1c (Bld) [Mass fraction] 7.5 % High <=5.9% [facility] ChemAutoSS CRPon 07-07-2023 CRP [Mass/Vol] 2.0 mg/dL High <=1.9 [facility] Comment on above: Performed By: #### 2 644701, 81877225, 631967727, 1759874, 45242601, 9997504, 5599870 ####[facility] [address] [place] [address] CT Abdomen/Pelvis w/ Contras ton 07-07-2023 CT Abdomen/Pelvis w/ Contrast Normal [facility] Capillary Glucose POCon Glucose [Mass/Vol] 167 mg/dL High 55-99 [facility] Comment on above: Result Comment: Heaven [facility] Performed By: #### 2 [id number] ####[facility] [address] [place] [address] Glucose [Mass/Vol] 137 mg/dL High 55-99 [facility] Comment on above: Result Comment: Heaven [facility] Performed By: #### 2 [id number] ####[facility] [address] [place] [address] Glucose [Mass/Vol] 84 mg/dL Normal 55-99 [facility] Comment on above: Result Comment: Heaven [facility] Performed By: #### 2 [id number] ####[facility] [address] [place] [address] Glucose [Mass/Vol] 85 mg/dL Normal 55-99 [facility] Comment on above: Result Comment: Heaven [facility] Performed By: #### 2 [id number] ####[facility] [address] [place] [address] Consultation Noteon 07-07-19 Consultation Note Normal [facility] Comment on above: Result Comment: Elec tronically Signed By: Judah Segura MD\.br\Date and Time Signed: 07/07/23 11:39 EDT ED Note-Physicianon 07-07-19 ED Note-Physician Normal [facility] Comment on above: Result Comment: Elec tronically Signed By: Radha Jo PA-C\.br\Date and Time Signed: 07/06/23 19:40 EDT\.br\Electronically Co-Signed By: Shankar Martin DO\.br\Date and Time Co-Signed: 07/07/23 07:02 EDT HEMATOLOGYOrdered By: SYSTEM SYSTEM on 07-07-2023 Anisocytosis Ql (Bld) PRESENT *NA* (07/07/23 5:30 AM) Invalid Interpretation Code Remisol Heme Basophils/100 WBC (Bld) 1.2 % Normal 0.0 - 2.0 % Remisol Heme Basophils/Leukocytes Auto (Bld) [Pure # fraction] 0.0 E9/L Normal 0.0 - 0.2 E9/L Remisol Heme Eosinophils (Bld) [#/Vol] 0.1 E9/L Normal 0.0 - 0.5 E9/L Remisol Heme Eosinophils/100 WBC (Bld) 3.1 % Normal 0.0 - 8.0 % Remisol Heme Hypochromia Auto Ql (Bld) PRESENT *NA* (07/07/23 5:30 AM) Invalid Interpretation Code Remisol Heme Lymphocytes (Bld) [#/Vol] 0.8 E9/L Low 1.0 - 4.0 E9/L Remisol Heme Lymphocytes/100 WBC (Bld) 44.3 % Normal 14.0 - 50.0 % Remisol Heme Monocytes (Bld) [#/Vol] 0.4 E9/L Normal 0.2 - 1.0 E9/L Remisol Heme Monocytes/100 WBC (Bld) 21.9 % High 4.0 - 14.0 % Remisol Heme Neutrophils (Bld) [#/Vol] 0.6 E9/L Low 2.0 - 7.5 E9/L Remisol Heme Neutrophils/100 WBC (Bld) 29.5 % Low 36.0 - 75.0 % Remisol Heme RBC size Nom (Bld) SEE MORPHOLOGY *NA* (07/07/23 5:30 AM) Invalid Interpretation Code Remisol Heme [id number] 07-07-2023 HbA1c (Bld) [Mass fraction] 7.5 % High <=5.9 [facility] Comment on above: Performed By: #### 2 582907, 66065821, 880407516, 2627500, 30388254, 6541457, 8131975 ####[facility] [address] [place] [address] Insurance Correspondence Off iceon 07-07-2023 Insurance Correspondence Office [id number]# 1.00TIFF [facility] Interdisciplinary Note - Rufus e Manageron 07-07-2023 Interdisciplinary Note - Gis Administrator [facility] Comment on above: Result Comment: Elec tronically Signed By: Jayna Garcia\.br\Date and Time Signed: 07/07/23 13:04 EDT Interdisciplinary Note - Soc ial Workeron 07-07-2023 Interdisciplinary Note - Department Head [facility] Magnesiumon 07-07-2023 Magnesium [Mass/Vol] 1.5 mg/dL Normal 1.3-2.4 [facility] Comment on above: Performed By: #### 2 785186, 10899123, 819797126, 5076578, 70400198, 3865401, 0882492 ####[facility] [address] [place] [address] Monitor Recordon 07-07-2023 Monitor Record [id number]# 1.00TIFF [facility] Monitor Record [id number]# 1.00TIFF [facility] TSH With T4fr Reflexon 07-06 TSH Qn 1.43 m[IU]/L Normal 0.34-5.60 [facility] Comment on above: Performed By: #### 2 361434, 95060167, 175743988, 0284040, 29320330, 8774491, 8126812 ####[facility] [address] [place] [address] eGFRon 07-07-2023 eGFR 63 mL/min/1.73 m2 Normal >=59 [facility] Comment on above: Order Comment: Order added by Discern Expert. Performed By: #### 2 549807, 64026125 ####[facility] [address] [place] [address] eGFR 63 mL/min/1.73 m2 Normal >=59 [facility] Comment on above: Order Comment: Order added by Discern Expert. Performed By: #### 2 811655, 09376841, 910785034, 8044082, 07101075, 4589423, 4878457 ####[facility] [address] [place] [address] BMPon 07-06-2023 Anion gap [Moles/Vol] 15 mmol/L Normal 6-16 [facility] Comment on above: Performed By: #### 1 2548832, 6804102, 63754097, 9105504, 0666310, 9423744 ####[facility] [address] [place] [address] Calcium [Mass/Vol] 8.1 mg/dL Low 8.9-11.1 [facility] Comment on above: Performed By: #### 1 6121631, 7621728, 07127675, 6645319, 3125143, 8798495 ####[facility] [address] [place] [address] Chloride [Moles/Vol] 112 mmol/L High 101-111 [facility] Comment on above: Performed By: #### 1 9470500, 0869398, 34572964, 4178592, 1540913, 1171192 ####[facility] [address] [place] [address] CO2 [Moles/Vol] 11 mmol/L Abnormal 21-31 [facility] Comment on above: Result Comment: Crit ical Result Verified by Previous ResultCritical Result S_CO2:11 Called to and read back by: GUILLERMINA OCHOA RN at: 07/06/2023 16:16:27 by:[id number] Performed By: #### 1 0854894, 7297229, 98036210, 0881546, 7696372, 8936648 ####[facility] [address] [place] [address] Creatinine [Mass/Vol] 1.5 mg/dL High 0.5-1.3 [facility] Comment on above: Performed By: #### 1 0993185, 6626633, 87060822, 4136960, 6994236, 5398315 ####[facility] [address] [place] [address] Glucose [Mass/Vol] 288 mg/dL High 55-199 [facility] Comment on above: Performed By: #### 1 0843752, 1833041, 87799632, 3910900, 8896432, 2689667 ####[facility] [address] [place] [address] Potassium [Moles/Vol] 5.4 mmol/L High 3.5-5.3 [facility] Comment on above: Performed By: #### 1 1675082, 6177788, 04989455, 1134814, 4174797, 2983514 ####[facility] [address] [place] [address] Sodium [Moles/Vol] 133 mmol/L Low 135-145 [facility] Comment on above: Performed By: #### 1 7951271, 9834755, 58244672, 8861207, 2314075, 4992889 ####[facility] [address] [place] [address] Urea nitrogen [Mass/Vol] 43 mg/dL High 5-21 [facility] Comment on above: Performed By: #### 1 7211371, 2377667, 25403977, 5861030, 9269524, 4779182 ####[facility] [address] [place] [address] Urea nitrogen/Creatinine [Mass ratio] 29 No Units High 10-20 [facility] Comment on above: Performed By: #### 1 1281745, 6101948, 79375599, 2155353, 3532041, 8568321 ####[facility] [address] [place] [address] CBC w/ Auto Diffon 4 Anisocytosis Ql (Bld) PRESENT Invalid Interpretation Code [facility] Comment on above: Performed By: #### 1 2202408, 4195961, 5818954, 4421456 ####[address] [address] Band form neutrophils/100 WBC (Bld) 6 % Normal 0-6 [facility] Comment on above: Performed By: #### 1 9008904, 4211158, 6365202, 4619314 ####[facility] [address] [place] [address] Basophils (Bld) [#/Vol] 0.0 E9/L Normal 0.0-0.2 [facility] Comment on above: Performed By: #### 1 8727759, 7971779, 9828866, 9169697 ####[facility] [address] [place] [address] Dohle body LM Ql (Bld) PRESENT Invalid Interpretation Code [facility] Comment on above: Performed By: #### 1 8120435, 3614808, 9057485, 0231129 ####[facility] [address] [place] [address] Eosinophils (Bld) [#/Vol] 0.0 E9/L Normal 0.0-0.5 [facility] Comment on above: Performed By: #### 1 8039865, 4532412, 9073861, 6516901 ####[address] [address] Eosinophils/100 WBC (Bld) 1.0 % Normal 0.0-8.0 [facility] Comment on above: Performed By: #### 1 9983423, 4959571, 8261118, 2275980 ####[address] [address] Erythrocyte distribution width (RBC) [Ratio] 24.8 % High 10.9-14.2 [facility] Comment on above: Performed By: #### 1 2272032, 0173748, 1408901, 7024590 ####[place] [address] Hematocrit (Bld) [Volume fraction] 35.9 % Normal 34.0-46.0 [facility] Comment on above: Performed By: #### 1 4112784, 6888904, 8427642, 3027433 ####[place] [address] Hemoglobin (Bld) [Mass/Vol] 10.9 g/dL Low 12.0-16.0 [facility] Comment on above: Performed By: #### 1 3990810, 9652613, 9575917, 4512037 ####[place] [address] Hypochromia Auto Ql (Bld) PRESENT Invalid Interpretation Code [facility] Comment on above: Performed By: #### 1 5817449, 6253904, 4662394, 7417111 ####[address] [address] Lymphocytes (Bld) [#/Vol] 0.9 E9/L Low 1.0-4.0 [facility] Comment on above: Performed By: #### 1 3917297, 6926261, 0016449, 7977661 ####[address] [address] Lymphocytes/100 WBC (Bld) 21.0 % Normal 14.0-50.0 [facility] Comment on above: Performed By: #### 1 3407868, 0964510, 1960994, 3247243 ####[address] [place] [address] MCH (RBC) [Entitic mass] 25.1 pg Low 27.0-34.0 [facility] Comment on above: Performed By: #### 1 7843894, 0413156, 6406186, 3666021 ####[facility] [address] [place] [address] MCHC (RBC) [Mass/Vol] 30.4 g/dL Low 31.4-36.0 [facility] Comment on above: Performed By: #### 1 1043719, 5367822, 9623442, 7631067 ####[address] [address] MCV (RBC) [Entitic vol] 82.6 fL Normal 80.0-100.0 [facility] Comment on above: Performed By: #### 1 0056653, 6813283, 0248827, 0990370 ####[place] [address] Monocytes (Bld) [#/Vol] 0.7 E9/L Normal 0.2-1.0 [facility] Comment on above: Performed By: #### 1 4058564, 9785245, 2968840, 3436921 ####[address] [address] Neutrophils (Bld) [#/Vol] 2.7 E9/L Invalid Interpretation Code [facility] Comment on above: Performed By: #### 1 2493685, 9991149, 3329910, 8900526 ####[place] [address] [place] [address] Platelet mean volume (Bld) [Entitic vol] 8.9 fL Normal 6.4-10.8 [facility] Comment on above: Performed By: #### 1 0957595, 0475089, 2074281, 4262767 ####[facility] [address] [place] [address] Platelets (Bld) [#/Vol] 237.0 E9/L Normal 150.0-500.0 [facility] Comment on above: Performed By: #### 1 1785645, 0034167, 9983455, 6763369 ####[facility] [address] [place] [address] RBC (Bld) [#/Vol] 4.3 E12/L Normal 4.3-5.9 [facility] Comment on above: Performed By: #### 1 5178472, 2198315, 7853239, 5771147 ####[facility] [address] [place] [address] RBC size Nom (Bld) SEE MORPHOLOGY Invalid Interpretation Code [facility] Comment on above: Performed By: #### 1 5147259, 4445869, 9481315, 3482064 ####[place] [address] [place] [address] Segmented neutrophils/100 WBC (Bld) 56 % Normal 50-70 [facility] Comment on above: Performed By: #### 1 4763998, 1728575, 6513006, 3094159 ####[facility] [address] [place] [address] WBC corrected for nucl RBC Auto (Bld) [#/Vol] 4.4 E9/L Normal 4.0-11.0 [facility] Comment on above: Performed By: #### 1 2211080, 2368213, 8503400, 7755597 ####[address] [address] CHEMISTRYOrdered By: SYSTEM SYSTEM on 07-06-2023 Albumin [Mass/Vol] 3.4 g/dL Normal 3.3 - 5.0 gm/dL R emisol Chem Albumin/Globulin [Mass ratio] 1.2 {ratio} Normal 1.1 - 2.2 Remisol Chem ALP [Catalytic activity/Vol] 115 [iU]/d High 21 - 98 Int._Unit/L Remisol Chem ALT No additional P-5'-P [Catalytic activity/Vol] 7 [iU]/d Normal 6 - 46 Int._Unit/L Remisol Chem AST [Catalytic activity/Vol] 7 [iU]/d Normal 5 - 43 Int._Unit/L Remisol Chem Bilirubin [Mass/Vol] 0.3 mg/dL Normal 0.0 - 1.1 mg/dL Remisol Chem Bilirubin.direct [Mass/Vol] 0.1 mg/dL Normal 0.0 - 0.4 mg/dL Remisol Chem Bilirubin.indirect [Mass or moles/Vol] 0.2 mg/dL Normal 0.1 - 0.9 mg/dL Remisol Chem Globulin (S) [Mass/Vol] 2.9 g/dL Normal 1.4 - 4.0 gm/dL Remisol Chem Lactic Acid Lvl 1.0 mmol/L Normal 0.5 - 2.2 mmol/L Remisol Chem Lipase [Catalytic activity/Vol] 62 U/L High 13 - 58 unit/L Remisol Chem Protein [Mass/Vol] 6.3 g/dL Normal 6.0 - 7.8 gm/dL R emisol Chem Troponin 11.80 pg/mL Normal 10.10 - 27.10 pg/mL Remisol Chem Comment on above: Interpretive Data: T he 95% CI (Confidence Interval) PPV (Positive Predictive Value) for myocardial infarction in females is 38 pg/mL, in males 51 pg/mL. The results should be used in conjunction with clinical conditions of myocardial infarction. (Access High Sensitivity Troponin I Instructions For Use, Sujata Katya, November 2017) Albumin [Mass/Vol] 3.6 g/dL Normal 3.3 - 5.0 gm/dL R emisol Chem Albumin/Globulin [Mass ratio] 1.2 {ratio} Normal 1.1 - 2.2 Remisol Chem ALP [Catalytic activity/Vol] 135 [iU]/d High 21 - 98 Int._Unit/L Remisol Chem ALT No additional P-5'-P [Catalytic activity/Vol] 7 [iU]/d Normal 6 - 46 Int._Unit/L Remisol Chem Anion gap [Moles/Vol] 17 mmol/L High 6 - 16 mEq/L R emisol Chem AST [Catalytic activity/Vol] 7 [iU]/d Normal 5 - 43 Int._Unit/L Remisol Chem Bilirubin [Mass/Vol] 0.4 mg/dL Normal 0.0 - 1.1 mg/dL Remisol Chem Calcium [Mass/Vol] 8.8 mg/dL Low 8.9 - 11. 1 mg/dL Remisol Chem Chloride [Moles/Vol] 110 mmol/L Normal 101 - 1 11 mmol/L Remisol Chem CO2 [Moles/Vol] 11 mmol/L Invalid Interpretation Code 21 - 31 mmol/L Remisol Chem Comment on above: Result Comment: Christy ical Result Verified by Repeat Analysis Critical Result S_CO2:11 Called to and read back by: BEL ALVAREZ RN at: 07/06/2023 14:40:05 by:[id number] Cobalamin (Vitamin B12) [Mass/Vol] 1090 pg/mL Normal 50 - 1500 pg/mL Remisol Chem Creatinine [Mass/Vol] 1.7 mg/dL High 0.5 - 1.3 mg/d L Remisol Chem eGFR 33 mL/min/1.73 m2 Low >=59mL/min /1.73 m2 Remisol Chem Ferritin [Mass/Vol] 523 ng/mL High 11 - 307 ng/mL R emisol Chem Folate [Mass/Vol] ng/mL Normal >=6.7ng/mL Remisol Chem Globulin (S) [Mass/Vol] 3.1 g/dL Normal 1.4 - 4.0 gm/dL Remisol Chem Glucose [Mass/Vol] 306 mg/dL High 55 - 199 mg/dL Re misol Chem Iron [Mass/Vol] 60 ug/dL Normal 35 - 153 mcg/dL Maxx kaley Chem Iron binding capacity [Mass/Vol] 251 ug/dL Normal 250 - 400 mcg/dL Remisol Chem Iron saturation [Mass fraction] 24 % Normal 20 - 50 % Remisol Chem Magnesium [Mass/Vol] 1.7 mg/dL Normal 1.3 - 2.4 mg/dL Remisol Chem Potassium [Moles/Vol] 5.1 mmol/L Normal 3.5 - 5.3 mmol/L Remisol Chem Protein [Mass/Vol] 6.7 g/dL Normal 6.0 - 7.8 gm/dL R emisol Chem Sodium [Moles/Vol] 133 mmol/L Low 135 - 145 mmol/L Remisol Chem Transferrin [Mass/Vol] 179 mg/dL Low 200 - 370 mg/dL Remisol Chem Urea nitrogen [Mass/Vol] 45 mg/dL High 5 - 21 mg/dL Remisol Chem Urea nitrogen/Creatinine [Mass ratio] 26 mg/mg High 10 - 20 Remisol Chem CMPon 07-06-2023 Chloride [Moles/Vol] 110 mmol/L Normal 101-111 [facility] Comment on above: Performed By: #### 1 3361304, 7100467, 1905766, 9184508 ####[facility] [address] [place] [address] CO2 [Moles/Vol] 11 mmol/L Abnormal 21-31 [facility] Comment on above: Result Comment: Crit ical Result Verified by Repeat AnalysisCritical Result S_CO2:11 Called to and read back by: BEL ALVAREZ RN at: 07/06/2023 14:40:05 by:[id number] Performed By: #### 1 5378769, 4471383, 3795455, 8267945 ####[facility] [address] [place] [address] Potassium [Moles/Vol] 5.1 mmol/L Normal 3.5-5.3 [facility] Comment on above: Performed By: #### 1 9645085, 5095437, 2913743, 0744352 ####[facility] [address] [place] [address] Sodium [Moles/Vol] 133 mmol/L Low 135-145 [facility] Comment on above: Performed By: #### 1 8377897, 9558751, 1939667, 5236666 ####[facility] [address] [place] [address] Albumin [Mass/Vol] 3.6 g/dL Normal 3.3-5.0 [facility] Comment on above: Performed By: #### 1 1405878, 0907167, 1015939, 0449369 ####[facility] [address] [place] [address] Albumin/Globulin (S) [Mass conc ratio] 1.2 Normal 1.1-2.2 [facility] Comment on above: Performed By: #### 1 3065039, 7527953, 6943654, 5286244 ####[facility] [address] [place] [address] ALP [Catalytic activity/Vol] 135 Int._Unit/L High 21-98 [facility] Comment on above: Performed By: #### 1 6723155, 2984122, 2714784, 3042483 ####[facility] [address] [place] [address] ALT No additional P-5'-P [Catalytic activity/Vol] 7 Int._Unit/L Normal 6-46 [facility] Comment on above: Performed By: #### 1 0162587, 1987968, 0206900, 8772317 ####[facility] [address] [place] [address] Anion gap [Moles/Vol] 17 mmol/L High 6-16 [facility] Comment on above: Performed By: #### 1 6434064, 2666648, 9070279, 9961787 ####[address] [address] AST [Catalytic activity/Vol] 7 Int._Unit/L Normal 5-43 [facility] Comment on above: Performed By: #### 1 4420980, 4566625, 4021154, 7312241 ####[facility] [address] [place] [address] Bilirubin [Mass/Vol] 0.4 mg/dL Normal 0.0-1.1 [facility] Comment on above: Performed By: #### 1 6068284, 0642613, 1811270, 7834122 ####[facility] [address] [place] [address] Calcium [Mass/Vol] 8.8 mg/dL Low 8.9-11.1 [facility] Comment on above: Performed By: #### 1 2656347, 2539916, 2467853, 3570673 ####[facility] [address] [place] [address] Creatinine [Mass/Vol] 1.7 mg/dL High 0.5-1.3 [facility] Comment on above: Performed By: #### 1 0696020, 1907914, 5393448, 4269278 ####[facility] [address] [place] [address] Globulin (S) [Mass/Vol] 3.1 g/dL Normal 1.4-4.0 [facility] Comment on above: Performed By: #### 1 9734767, 4589689, 8165219, 6841452 ####[facility] [address] [place] [address] Glucose [Mass/Vol] 306 mg/dL High 55-199 [facility] Comment on above: Performed By: #### 1 4570462, 6173054, 7902641, 4962786 ####[place] [address] [place] [address] Protein [Mass/Vol] 6.7 g/dL Normal 6.0-7.8 [facility] Comment on above: Performed By: #### 1 8045798, 3874811, 3088104, 4755515 ####[facility] [address] [place] [address] Urea nitrogen [Mass/Vol] 45 mg/dL High 5-21 [facility] Comment on above: Performed By: #### 1 5977740, 3130704, 3320777, 8570582 ####[facility] [address] [place] [address] Urea nitrogen/Creatinine [Mass ratio] 26 No Units High 10-20 [facility] Comment on above: Performed By: #### 1 8969347, 2812205, 0090410, 1543011 ####[facility] [address] [place] [address] Capillary Glucose POCon Glucose [Mass/Vol] 239 mg/dL High 55-99 [facility] Comment on above: Result Comment: Heaven jean RN/ Performed By: #### 2 74693312 ####[facility] [address] [place] [address] Consent for Treatmenton Consent for Treatment [id number]#1 .00TIFF Normal [facility] Consent for Treatment [id number]#1 .00TIFF Normal [facility] ED Clinical Summaryon 2023 ED Clinical Summary Normal [facility] ED Patient Education Noteon 07-06-2023 ED Patient Education Note Normal [facility] ED Patient Summaryon 024 ED Patient Summary Normal [facility] Ferritinon 07-06-2023 Ferritin [Mass/Vol] 523 ng/mL High 11-307 [facility] Comment on above: Performed By: #### 2 003677, 3182567, 2847996, 6665568, 4566343, 0122619 ####[facility] [address] [place] [address] Folateon 07-06-2023 Folate [Mass/Vol] ng/mL Normal >=6.7 [facility] Comment on above: Performed By: #### 2 941543, 9632504, 5262930, 1903450, 2258667, 0930754 ####[facility] [address] [place] [address] HEMATOLOGYOrdered By: SYSTEM SYSTEM on 07-06-2023 Anisocytosis Ql (Bld) PRESENT *NA* (07/06/23 1:52 PM) Invalid Interpretation Code Remisol Heme Band form neutrophils/100 WBC (Bld) 6 % Normal 0 - 6 % Remisol Heme Basophils (Bld) [#/Vol] 0.0 E9/L Normal 0.0 - 0.2 E9/L Remisol Heme Basophils/100 WBC (Bld) 0.0 % Normal 0.0 - 2.0 % Remisol Heme Dohle body LM Ql (Bld) PRESENT *NA* (07/06/23 1:52 PM) Invalid Interpretation Code Remisol Heme Eosinophils (Bld) [#/Vol] 0.0 E9/L Normal 0.0 - 0.5 E9/L Remisol Heme Eosinophils/100 WBC (Bld) 1.0 % Normal 0.0 - 8.0 Remisol Heme Erythrocyte distribution width (RBC) [Ratio] 24.8 % High 10.9 - 14.2 % Remisol Heme Hematocrit (Bld) [Volume fraction] 35.9 % Normal 34.0 - 46.0 % Remisol Heme Hemoglobin (Bld) [Mass/Vol] 10.9 g/dL Low 12.0 - 16.0 gm/dL Remisol Heme Hypochromia Auto Ql (Bld) PRESENT *NA* (07/06/23 1:52 PM) Invalid Interpretation Code Remisol Heme Lymphocytes (Bld) [#/Vol] 0.9 E9/L Low 1.0 - 4.0 E9/L Remisol Heme Lymphocytes/100 WBC (Bld) 21.0 % Normal 14.0 - 50.0 % Remisol Heme MCH (RBC) [Entitic mass] 25.1 pg Low 27.0 - 34.0 pg Remisol Heme MCHC (RBC) [Mass/Vol] 30.4 g/dL Low 31.4 - 36.0 gm/dL Remisol Heme MCV (RBC) [Entitic vol] 82.6 fL Normal 80.0 - 100.0 fL Remisol Heme Monocytes (Bld) [#/Vol] 0.7 E9/L Normal 0.2 - 1.0 E9/L Remisol Heme Monocytes/100 WBC (Bld) 16.0 % High 4.0 - 14.0 % Remisol Heme Neutrophils (Bld) [#/Vol] 2.7 E9/L Invalid Interpretation Code Remisol Heme Platelet mean volume (Bld) [Entitic vol] 8.9 fL Normal 6.4 - 10.8 fL Remisol Heme Platelets (Bld) [#/Vol] 237.0 E9/L Normal 150.0 - 500.0 E9/L Remisol Heme RBC (Bld) [#/Vol] 4.3 E12/L Normal 4.3 - 5.9 E12/L Re misol Heme RBC size Nom (Bld) SEE MORPHOLOGY *NA* (07/06/23 1:52 PM) Invalid Interpretation Code Remisol Heme Segmented neutrophils/100 WBC (Bld) 56 % Normal 50 - 70 % Remisol Heme WBC corrected for nucl RBC Auto (Bld) [#/Vol] 4.4 E9/L Normal 4.0 - 11.0 E9/L Remisol Heme Hep Func Panelon 07-06-2023 Albumin [Mass/Vol] 3.4 g/dL Normal 3.3-5.0 [facility] Comment on above: Performed By: #### 1 2126176, 1075281, 72769288, 6897059, 4015469, 2926645 ####[facility] [address] [place] [address] Albumin/Globulin (S) [Mass conc ratio] 1.2 Normal 1.1-2.2 [facility] Comment on above: Performed By: #### 1 5869005, 7122857, 75207242, 9427905, 9178391, 9824757 ####[facility] [address] [place] [address] ALP [Catalytic activity/Vol] 115 Int._Unit/L High 21-98 [facility] Comment on above: Performed By: #### 1 8256758, 4245567, 43675555, 8536389, 2954698, 2802970 ####[facility] [address] [place] [address] ALT No additional P-5'-P [Catalytic activity/Vol] 7 Int._Unit/L Normal 6-46 [facility] Comment on above: Performed By: #### 1 2416991, 8089104, 07036873, 6144346, 0849465, 2696459 ####[facility] [address] [place] [address] AST [Catalytic activity/Vol] 7 Int._Unit/L Normal 5-43 [facility] Comment on above: Performed By: #### 1 8509114, 5630903, 94518380, 3745873, 5840861, 5047288 ####[facility] [address] [place] [address] Bilirubin [Mass/Vol] 0.3 mg/dL Normal 0.0-1.1 [facility] Comment on above: Performed By: #### 1 9570881, 5072788, 44320122, 9927120, 9297884, 2968584 ####[facility] [address] [place] [address] Bilirubin.direct [Mass/Vol] 0.1 mg/dL Normal 0.0-0.4 [facility] Comment on above: Performed By: #### 1 0746225, 0548302, 39669268, 5610117, 9243498, 3032751 ####[address] [place] [address] Bilirubin.indirect [Mass or moles/Vol] 0.2 mg/dL Normal 0.1-0.9 [facility] Comment on above: Performed By: #### 1 8810908, 7610285, 75751436, 5079323, 3311992, 6792817 ####[address] [address] Globulin (S) [Mass/Vol] 2.9 g/dL Normal 1.4-4.0 [facility] Comment on above: Performed By: #### 1 9322186, 6165679, 12827241, 8963760, 1423468, 9792074 ####[address] [address] Protein [Mass/Vol] 6.3 g/dL Normal 6.0-7.8 [facility] Comment on above: Performed By: #### 1 2684630, 1936304, 13814839, 6495444, 2710019, 1470898 ####[address] [address] Ironon 07-06-2023 Iron [Mass/Vol] 60 microgram/dL Normal 35-153 [facility] Comment on above: Performed By: #### 2 702140, 1632293, 5784730, 7516327, 7968906, 9105644 ####[facility] [address] [place] [address] Iron Saturationon 07-06-2023 Iron binding capacity [Mass/Vol] 251 microgram/dL Normal 250-400 [facility] Comment on above: Performed By: #### 2 855945, 9604073, 1900228, 0374852, 4792682, 4909081 ####[facility] [address] [place] [address] Iron saturation [Mass fraction] 24 % Normal 20-50 [facility] Comment on above: Performed By: #### 2 487681, 6224451, 7264936, 9404627, 7793447, 8225488 ####[facility] [address] [place] [address] Lactic Acidon 07-06-2023 Lactic Acid Lvl 1.0 mmol/L Normal 0.5-2.2 [facility] Comment on above: Performed By: #### 1 8223436, 8413402, 28593931, 8450085, 9056021, 9956917 ####[address] [place] [address] Lipase Levelon 07-06-2023 Lipase [Catalytic activity/Vol] 62 U/L High 13-58 [facility] Comment on above: Performed By: #### 1 8114249, 5419778, 15631609, 2343078, 5542800, 1316904 ####[address] [place] [address] Magnesiumon 07-06-2023 Magnesium [Mass/Vol] 1.7 mg/dL Normal 1.3-2.4 [facility] Comment on above: Performed By: #### 1 7333102, 1953796, 3252065, 4038178 ####[facility] [address] [place] [address] Monitor Recordon 07-06-2023 Monitor Record [id number]# 1.00TIFF Normal [facility] Monitor Record [id number]# 1.00TIFF Normal [facility] Monitor Record [id number]# 1.00TIFF Normal [facility] No Panel InformationOrdered By: [facility] MI[facility] on 07-06-2023 Blood Culture Charcoal No growth at 4 days. Final to follow at 7 days. [facility] Blood Culture Charcoal No growth at 4 days. Final to follow at 7 days. [facility] Oncology Supportive Care Not kevin 07-06-2023 Oncology Supportive Care Note Normal [facility] RAD - Preliminary Cat Scan R eporton 07-06-2023 RAD - Preliminary Cat Scan Report [id number]# 1.00TIFF Normal [facility] Transferrinon 07-06-2023 Transferrin [Mass/Vol] 179 mg/dL Low 200-370 [facility] Comment on above: Performed By: #### 2 041173, 0782899, 1877356, 8369568, 5554946, 6052045 ####[facility] [address] [place] [address] Troponin 0 Hr.on 07-06-2023 Troponin 11.80 pg/mL Normal 10.10-27.10 [facility] Comment on above: Result Comment: The 95% CI (Confidence Interval) PPV (Positive Predictive Value) for myocardial infarction in females is 38 pg/mL, in males 51 pg/mL. The results should be used in conjunction with clinical conditions of myocardial infarction.(Access High Sensitivity Troponin I Instructions For Use, Sujata Katya, November 2017) Performed By: #### 1 6375889, 0227075, 83598053, 1887306, 0146741, 4670661 ####[facility] [address] [place] [address] UA with Cult Rflxon 07-06-19 24 Color (U) Colorless Abnormal Yellow [facility] Comment on above: Result Comment: Micr oscopic readings are only performed on those samples that meet specific criteria set forth by [facility] Laboratory. Performed By: #### 4 [id number] ####[facility] [address] [place] [address] Glucose (U) [Mass/Vol] Negative Normal Negative [facility] Comment on above: Performed By: #### 4 [id number] ####[facility] [address] [place] [address] Ketones Ql (U) Negative Normal Negative [facility] Comment on above: Performed By: #### 4 [id number] ####[facility] [address] [place] [address] UA Blood Negative Normal Negative [facility] Comment on above: Performed By: #### 4 [id number] ####[facility] [address] [place] [address] UA Clarity Clear Normal Clear [facility] Comment on above: Performed By: #### 4 [id number] ####[address] [place] [address] UA Leuk Est Negative Normal Negative [facility] Comment on above: Performed By: #### 4 [id number] ####[address] [place] [address] UA Nitrite Negative Normal Negative [facility] Comment on above: Performed By: #### 4 630370005 ####[facility] [address] [place] [address] UA pH 5.0 Invalid Interpretation Code 5.0-9.0 [facility] Comment on above: Performed By: #### 4 [id number] ####[facility] [address] [place] [address] UA Protein Negative Normal Negative [facility] Comment on above: Performed By: #### 4 [id number] ####[facility] [address] [place] [address] UA Spec Grav 1.017 Invalid Interpretation Code 1.005-1.030 [facility] Comment on above: Performed By: #### 4 [id number] ####[facility] [address] [place] [address] UA Urobilinogen Negative Normal Negative [facility] Comment on above: Performed By: #### 4 [id number] ####[facility] [address] [place] [address] Urobilinogen (U) [Mass/Vol] Negative Normal Negative [facility] Comment on above: Performed By: #### 4 416474941 ####[facility] [address] [place] [address] UA Spec Desc Clean Catch Normal [facility] Comment on above: Performed By: #### 4 [id number] ####[facility] [address] [place] [address] URINALYSISOrdered By: SYSTEM SYSTEM on 07-06-2023 Color (U) Colorless 1 *ABN* (07/06/23 6:53 PM) Invalid Interpretation Code Yellow [facility] UA Auto SS Comment on above: Interpretive Data: M icroscopic readings are only performed on those samples that meet specific criteria set forth by [facility] Laboratory. Glucose (U) [Mass/Vol] Negative Normal Negativemg/dL [facility] UA Auto SS Ketones Ql (U) Negative Normal Negativemg/dL [facility] UA Auto SS UA Blood Negative Normal Negativemg/dL [facility] UA Aut o SS UA Clarity Clear (07/06/23 6:53 PM) Normal Clear [facility] UA Auto SS UA Leuk Est Negative Normal NegativeLeu/uL [facility] UA A uto SS UA Nitrite Negative Normal Negativemg/dL [facility] UA Aut o SS UA pH 5.0 *NA* (07/06/23 6:53 PM) Invalid Interpretation Code 5.0 - 9.0 [facility] UA Auto SS UA Protein Negative Normal Negativemg/dL [facility] UA Aut o SS UA Spec Grav 1.017 *NA* (07/06/23 6:53 PM) Invalid Interpretation Code 1.005 - 1.030 [facility] UA Auto SS UA Urobilinogen Negative Normal Negativemg/dL [facility] U A Auto SS Urobilinogen (U) [Mass/Vol] Negative Normal Negativemg/dL [facility] UA Auto SS URINALYSISOrdered By: Cesar Jo on 07-06-2023 UA Spec Desc Clean Catch (07/06/23 6:53 PM) Normal [facility] UA Auto SS Vit B12on 07-06-2023 Cobalamin (Vitamin B12) [Mass/Vol] 1090 pg/mL Normal 50-1500 [facility] Comment on above: Performed By: #### 2 654455, 1443525, 2007923, 9404261, 5173966, 7554129 ####[facility] [address] [place] [address] eGFRon 07-06-2023 eGFR 38 mL/min/1.73 m2 Low >=59 [facility] Comment on above: Order Comment: Order added by Discern Expert. Performed By: #### 1 8190095, 1466914, 76319001, 4605412, 0220264, 4149675 ####[facility] [address] [place] [address] eGFR 33 mL/min/1.73 m2 Low >=59 [facility] Comment on above: Order Comment: Order added by Discern Expert. Performed By: #### 1 1927280, 7782828, 2298964, 9559679 ####[facility] [address] [place] [address] Oncology Supportive Care Not kevin 07-02-2023 Oncology Supportive Care Note Normal [facility] Consent for Treatmenton 06-02 Consent for Treatment [id number]#1 .00TIFF Normal [facility] Consent for Treatmenton 06-02 Consent for Treatment [id number]#1 .00TIFF Normal [facility] ED Pat Eduon 06-28-2023 ED Pat Edu Normal [facility] ED Pat Edu Normal [facility] Oncology Progress Noteon Oncology Progress Note Normal [facility] Reference Lab Reporton 06-27 Reference Lab Report [id number]# 1.00TIFF Normal [facility] CBC w/ Auto Diffon 4 Anisocytosis Ql (Bld) PRESENT Invalid Interpretation Code [facility] Comment on above: Performed By: #### 2 876015, 6690100 ####[facility] [address] [place] [address] Basophils/100 WBC (Bld) 0.9 % Normal 0.0-2.0 [facility] Comment on above: Performed By: #### 2 569834, 8946546 ####[facility] [address] [place] [address] Basophils/Leukocytes Auto (Bld) [Pure # fraction] 0.1 E9/L Normal 0.0-0.2 [facility] Comment on above: Performed By: #### 2 933342, 7732642 ####[address] [address] Eosinophils (Bld) [#/Vol] 0.1 E9/L Normal 0.0-0.5 [facility] Comment on above: Performed By: #### 2 074881, 4682098 ####[address] [address] Eosinophils/100 WBC (Bld) 0.9 % Normal 0.0-8.0 [facility] Comment on above: Performed By: #### 2 870946, 4051074 ####[address] [address] Hypochromia Auto Ql (Bld) PRESENT Invalid Interpretation Code [facility] Comment on above: Performed By: #### 2 600575, 7893943 ####[address] [address] Lymphocytes (Bld) [#/Vol] 1.6 E9/L Normal 1.0-4.0 [facility] Comment on above: Performed By: #### 2 883995, 2963672 ####[address] [address] Lymphocytes/100 WBC (Bld) 12.1 % Low 14.0-50.0 [facility] Comment on above: Performed By: #### 2 757899, 1831573 ####[address] [address] Monocytes (Bld) [#/Vol] 0.6 E9/L Normal 0.2-1.0 [facility] Comment on above: Performed By: #### 2 496839, 3103021 ####[address] [address] Neutrophils (Bld) [#/Vol] 11.0 E9/L High 2.0-7.5 [facility] Comment on above: Performed By: #### 2 655550, 5132630 ####[address] [address] Neutrophils/100 WBC (Bld) 81.9 % High 36.0-75.0 [facility] Comment on above: Performed By: #### 2 429528, 9913816 ####[address] [address] Erythrocyte distribution width (RBC) [Ratio] 24.4 % High 10.9-14.2 [facility] Comment on above: Performed By: #### 2 633342, 1660086 ####[address] [address] Hematocrit (Bld) [Volume fraction] 34.5 % Normal 34.0-46.0 [facility] Comment on above: Performed By: #### 2 034603, 9616518 ####[address] [address] Hemoglobin (Bld) [Mass/Vol] 10.6 g/dL Low 12.0-16.0 [facility] Comment on above: Performed By: #### 2 930854, 2582440 ####[address] [address] MCH (RBC) [Entitic mass] 25.2 pg Low 27.0-34.0 [facility] Comment on above: Performed By: #### 2 110612, 9834083 ####[address] [address] MCHC (RBC) [Mass/Vol] 30.6 g/dL Low 31.4-36.0 [facility] Comment on above: Performed By: #### 2 941465, 0769281 ####[address] [address] MCV (RBC) [Entitic vol] 82.4 fL Normal 80.0-100.0 [facility] Comment on above: Performed By: #### 2 296455, 8337019 ####[address] Platelet mean volume (Bld) [Entitic vol] 8.8 fL Normal 6.4-10.8 [facility] Comment on above: Performed By: #### 2 291875, 8749957 ####[address] Platelets (Bld) [#/Vol] 327.0 E9/L Normal 150.0-500.0 [facility] Comment on above: Performed By: #### 2 602327, 5759696 ####[address] RBC (Bld) [#/Vol] 4.2 E12/L Low 4.3-5.9 [facility] Comment on above: Performed By: #### 2 824348, 3739556 ####[address] WBC corrected for nucl RBC Auto (Bld) [#/Vol] 13.4 E9/L High 4.0-11.0 [facility] Comment on above: Performed By: #### 2 596146, 5012445 ####[address] [address] CHEMISTRYOrdered By: SYSTEM SYSTEM on 06-27-2023 Albumin [Mass/Vol] 3.1 g/dL Low 3.3 - 5.0 gm/dL R emisol Chem Albumin/Globulin [Mass ratio] 1.2 {ratio} Normal 1.1 - 2.2 Remisol Chem ALP [Catalytic activity/Vol] 102 [iU]/d High 21 - 98 Int._Unit/L Remisol Chem ALT No additional P-5'-P [Catalytic activity/Vol] 6 [iU]/d Normal 6 - 46 Int._Unit/L Remisol Chem Anion gap [Moles/Vol] 13 mmol/L Normal 6 - 16 mEq/L R emisol Chem AST [Catalytic activity/Vol] 10 [iU]/d Normal 5 - 43 Int._Unit/L Remisol Chem Bilirubin [Mass/Vol] 0.3 mg/dL Normal 0.0 - 1.1 mg/dL Remisol Chem Calcium [Mass/Vol] 8.0 mg/dL Low 8.9 - 11. 1 mg/dL Remisol Chem Chloride [Moles/Vol] 111 mmol/L Normal 101 - 1 11 mmol/L Remisol Chem CO2 [Moles/Vol] 17 mmol/L Low 21 - 31 mmol/L Remis ol Chem Creatinine [Mass/Vol] 1.1 mg/dL Normal 0.5 - 1.3 mg/d L Remisol Chem Globulin (S) [Mass/Vol] 2.6 g/dL Normal 1.4 - 4.0 gm/dL Remisol Chem Glucose [Mass/Vol] 245 mg/dL High 55 - 199 mg/dL Re misol Chem Potassium [Moles/Vol] 4.1 mmol/L Normal 3.5 - 5.3 mmol/L Remisol Chem Protein [Mass/Vol] 5.7 g/dL Low 6.0 - 7.8 gm/dL R emisol Chem Sodium [Moles/Vol] 137 mmol/L Normal 135 - 145 mmol/L Remisol Chem Urea nitrogen [Mass/Vol] 33 mg/dL High 5 - 21 mg/dL Remisol Chem Urea nitrogen/Creatinine [Mass ratio] 30 mg/mg High 10 - 20 Remisol Chem CMPon 06-27-2023 Albumin [Mass/Vol] 3.1 g/dL Low 3.3-5.0 [facility] Comment on above: Performed By: #### 2 374971, 1156178 ####[facility] [address] [place] [address] Albumin/Globulin (S) [Mass conc ratio] 1.2 Normal 1.1-2.2 [facility] Comment on above: Performed By: #### 2 882506, 3694885 ####[facility] [address] [place] [address] ALP [Catalytic activity/Vol] 102 Int._Unit/L High 21-98 [facility] Comment on above: Performed By: #### 2 022926, 3218812 ####[facility] [address] [place] [address] ALT No additional P-5'-P [Catalytic activity/Vol] 6 Int._Unit/L Normal 6-46 [facility] Comment on above: Performed By: #### 2 799850, 6762522 ####[facility] [address] [place] [address] Anion gap [Moles/Vol] 13 mmol/L Normal 6-16 [facility] Comment on above: Performed By: #### 2 107754, 1188744 ####[address] [place] [address] AST [Catalytic activity/Vol] 10 Int._Unit/L Normal 5-43 [facility] Comment on above: Performed By: #### 2 755934, 5899069 ####[facility] [address] [place] [address] Bilirubin [Mass/Vol] 0.3 mg/dL Normal 0.0-1.1 [facility] Comment on above: Performed By: #### 2 018889, 6025758 ####[facility] [address] [place] [address] Calcium [Mass/Vol] 8.0 mg/dL Low 8.9-11.1 [facility] Comment on above: Performed By: #### 2 583807, 7029112 ####[facility] [address] [place] [address] Chloride [Moles/Vol] 111 mmol/L Normal 101-111 [facility] Comment on above: Performed By: #### 2 629515, 1553138 ####[facility] [address] [place] [address] CO2 [Moles/Vol] 17 mmol/L Low 21-31 [facility] Comment on above: Performed By: #### 2 325003, 1930677 ####[facility] [address] [place] [address] Creatinine [Mass/Vol] 1.1 mg/dL Normal 0.5-1.3 [facility] Comment on above: Performed By: #### 2 881026, 2130832 ####[facility] [address] [place] [address] Globulin (S) [Mass/Vol] 2.6 g/dL Normal 1.4-4.0 [facility] Comment on above: Performed By: #### 2 711899, 2568102 ####[address] [address] Glucose [Mass/Vol] 245 mg/dL High 55-199 [facility] Comment on above: Performed By: #### 2 931586, 8770112 ####[address] [address] Potassium [Moles/Vol] 4.1 mmol/L Normal 3.5-5.3 [facility] Comment on above: Performed By: #### 2 746567, 1702736 ####[facility] [address] [place] [address] Protein [Mass/Vol] 5.7 g/dL Low 6.0-7.8 [facility] Comment on above: Performed By: #### 2 637344, 1452457 ####[facility] [address] [place] [address] Sodium [Moles/Vol] 137 mmol/L Normal 135-145 [facility] Comment on above: Performed By: #### 2 781965, 4654929 ####[facility] [address] [place] [address] Urea nitrogen [Mass/Vol] 33 mg/dL High 5-21 [facility] Comment on above: Performed By: #### 2 982810, 5232109 ####[address] [address] Urea nitrogen/Creatinine [Mass ratio] 30 No Units High 10-20 [facility] Comment on above: Performed By: #### 2 593045, 2879543 ####[facility] [address] [place] [address] Consent for Treatmenton 06-02 Consent for Treatment [id number] .00TIFF Normal [facility] HEMATOLOGYOrdered By: SYSTEM SYSTEM on 06-27-2023 Anisocytosis Ql (Bld) PRESENT *NA* (06/27/23 1:34 PM) Invalid Interpretation Code Remisol Heme Basophils/100 WBC (Bld) 0.9 % Normal 0.0 - 2.0 % Remisol Heme Basophils/Leukocytes Auto (Bld) [Pure # fraction] 0.1 E9/L Normal 0.0 - 0.2 E9/L Remisol Heme Eosinophils (Bld) [#/Vol] 0.1 E9/L Normal 0.0 - 0.5 E9/L Remisol Heme Eosinophils/100 WBC (Bld) 0.9 % Normal 0.0 - 8.0 % Remisol Heme Erythrocyte distribution width (RBC) [Ratio] 24.4 % High 10.9 - 14.2 % Remisol Heme Hematocrit (Bld) [Volume fraction] 34.5 % Normal 34.0 - 46.0 % Remisol Heme Hemoglobin (Bld) [Mass/Vol] 10.6 g/dL Low 12.0 - 16.0 gm/dL Remisol Heme Hypochromia Auto Ql (Bld) PRESENT *NA* (06/27/23 1:34 PM) Invalid Interpretation Code Remisol Heme Lymphocytes (Bld) [#/Vol] 1.6 E9/L Normal 1.0 - 4.0 E9/L Remisol Heme Lymphocytes/100 WBC (Bld) 12.1 % Low 14.0 - 50.0 % Rem[facility] Heme MCH (RBC) [Entitic mass] 25.2 pg Low 27.0 - 34.0 pg Remisol Heme MCHC (RBC) [Mass/Vol] 30.6 g/dL Low 31.4 - 36.0 gm/dL Rem[facility] Heme MCV (RBC) [Entitic vol] 82.4 fL Normal 80.0 - 100.0 fL [facility]e Monocytes (Bld) [#/Vol] 0.6 E9/L Normal 0.2 - 1.0 E9/L Rem[facility] Heme Monocytes/100 WBC (Bld) 4.2 % Normal 4.0 - 14.0 % [facility]e Neutrophils (Bld) [#/Vol] 11.0 E9/L High 2.0 - 7.5 E9/L Rem[facility] Heme Neutrophils/100 WBC (Bld) 81.9 % High 36.0 - 75.0 % [facility] Heme Platelet mean volume (Bld) [Entitic vol] 8.8 fL Normal 6.4 - 10.8 fL Remisol Heme Platelets (Bld) [#/Vol] 327.0 E9/L Normal 150.0 - 500.0 E9/L Remisol Heme RBC (Bld) [#/Vol] 4.2 E12/L Low 4.3 - 5.9 E12/L Re misol Heme WBC corrected for nucl RBC Auto (Bld) [#/Vol] 13.4 E9/L High 4.0 - 11.0 E9/L Remisol Heme Consent for Treatmenton 06-01 Consent for Treatment [id number]#1 .00TIFF [facility] Consent for Treatmenton 06-01 Consent for Treatment [id number]#1 .00TIFF [facility] Outside Operativeon 06-14-19 24 Outside Operative [id number]# 1.00TIFF [facility] Outside Pathology Reporton 0 06-14-2023 Outside Pathology Report [id number]# 1.00TIFF [facility] Tumor Staging Formon 024 Tumor Staging Form [id number]# 1.00TIFF [facility] Tumor Staging Form [id number]# 1.00TIFF Normal [facility] Tumor Staging Form [id number]# 1.00TIFF Normal [facility] CBC w/ Auto Diffon 4 Anisocytosis Ql (Bld) PRESENT Invalid Interpretation Code [facility] Comment on above: Performed By: #### 2 130785, [id number] ####[address] [address] Band form neutrophils/100 WBC (Bld) 1 % Normal 0-6 [facility] Comment on above: Performed By: #### 2 198975, 0596042 ####[address] [address] Basophils (Bld) [#/Vol] 0.1 E9/L Normal 0.0-0.2 [facility] Comment on above: Performed By: #### 2 733582, 0299483 ####[address] [address] Basophils/100 WBC (Bld) 0.6 % Normal 0.0-2.0 [facility] Comment on above: Performed By: #### 2 066606, 4629877 ####[address] [address] Basophils/Leukocytes Auto (Bld) [Pure # fraction] 0.1 E9/L Normal 0.0-0.2 [facility] Comment on above: Performed By: #### 2 685154, 6246312 ####[address] [address] Eosinophils (Bld) [#/Vol] 0.3 E9/L Normal 0.0-0.5 [facility] Comment on above: Performed By: #### 2 357501, 2106391 ####[address] [address] Eosinophils (Bld) [#/Vol] 0.4 E9/L Normal 0.0-0.5 [facility] Comment on above: Performed By: #### 2 173247, 0623105 ####[address] [address] Eosinophils/100 WBC (Bld) 2.1 % Normal 0.0-8.0 [facility] Comment on above: Performed By: #### 2 932564, 9943699 ####[address] [address] Eosinophils/100 WBC (Bld) 3.0 % Normal 0.0-8.0 [facility] Comment on above: Performed By: #### 2 628011, 5154823 ####[address] [address] Erythrocyte distribution width (RBC) [Ratio] 25.0 % High 10.9-14.2 [facility] Comment on above: Performed By: #### 2 658859, 1136018 ####[address] [address] Hematocrit (Bld) [Volume fraction] 29.7 % Low 34.0-46.0 [facility] Comment on above: Performed By: #### 2 586662, 2168365 ####[address] [address] Hemoglobin (Bld) [Mass/Vol] 9.1 g/dL Low 12.0-16.0 [facility] Comment on above: Performed By: #### 2 118872, 7319279 ####[address] [address] Hypochromia Auto Ql (Bld) PRESENT Invalid Interpretation Code [facility] Comment on above: Performed By: #### 2 481915, 3237154 ####[address] [address] Lymphocytes (Bld) [#/Vol] 1.7 E9/L Normal 1.0-4.0 [facility] Comment on above: Performed By: #### 2 300626, 6267150 ####[address] [address] Lymphocytes/100 WBC (Bld) 12.2 % Low 14.0-50.0 [facility] Comment on above: Performed By: #### 2 798290, 2422195 ####[address] [address] Lymphocytes/100 WBC (Bld) 13.0 % Low 14.0-50.0 [facility] Comment on above: Performed By: #### 2 332743, 9574710 ####[address] [address] MCH (RBC) [Entitic mass] 25.0 pg Low 27.0-34.0 [facility] Comment on above: Performed By: #### 2 879086, 0234770 ####[address] [address] MCHC (RBC) [Mass/Vol] 30.5 g/dL Low 31.4-36.0 [facility] Comment on above: Performed By: #### 2 915162, 1909868 ####[address] [address] MCV (RBC) [Entitic vol] 81.7 fL Normal 80.0-100.0 [facility] Comment on above: Performed By: #### 2 949649, 2533404 ####[address] [address] Monocytes (Bld) [#/Vol] 0.6 E9/L Normal 0.2-1.0 [facility] Comment on above: Performed By: #### 2 074630, 6888919 ####[address] [address] Monocytes (Bld) [#/Vol] 0.3 E9/L Normal 0.2-1.0 [facility] Comment on above: Performed By: #### 2 434735, 2208837 ####[address] [address] Myelocytes/100 WBC (Bld) 1 % High 0-0 [facility] Comment on above: Performed By: #### 2 056598, 6711211 ####[address] [address] Neutrophils (Bld) [#/Vol] 10.4 E9/L Invalid Interpretation Code [facility] Comment on above: Performed By: #### 2 511760, 3040217 ####[address] [address] Neutrophils/100 WBC (Bld) 80.4 % High 36.0-75.0 [facility] Comment on above: Performed By: #### 2 700900, 9562741 ####[address] [address] Nucleated cells (Bld) [#/Vol] 1 High 0-0 [facility] Comment on above: Performed By: #### 2 943161, 3619249 ####[address] [address] Platelet mean volume (Bld) [Entitic vol] 9.2 fL Normal 6.4-10.8 [facility] Comment on above: Performed By: #### 2 248122, 8775961 ####[address] [address] Platelets (Bld) [#/Vol] 247.0 E9/L Normal 150.0-500.0 [facility] Comment on above: Performed By: #### 2 442335, 1450701 ####[address] [address] RBC (Bld) [#/Vol] 3.6 E12/L Low 4.3-5.9 [facility] Comment on above: Performed By: #### 2 499817, 7141507 ####[address] [address] Segmented neutrophils/100 WBC (Bld) 79 % High 50-70 [facility] Comment on above: Performed By: #### 2 019258, 0133099 ####[facility] [address] [place] [address] WBC corrected for nucl RBC Auto (Bld) [#/Vol] 12.9 E9/L High 4.0-11.0 [facility] Comment on above: Performed By: #### 2 727735, 2235976 ####[facility] [address] [place] [address] CHEMISTRYOrdered By: SYSTEM SYSTEM on 06-13-2023 Albumin [Mass/Vol] 3.3 g/dL Normal 3.3 - 5.0 gm/dL R emisol Chem Albumin/Globulin [Mass ratio] 1.1 {ratio} Normal 1.1 - 2.2 Remisol Chem ALP [Catalytic activity/Vol] 118 [iU]/d High 21 - 98 Int._Unit/L Remisol Chem ALT No additional P-5'-P [Catalytic activity/Vol] 7 [iU]/d Normal 6 - 46 Int._Unit/L Remisol Chem Anion gap [Moles/Vol] 13 mmol/L Normal 6 - 16 mEq/L R emisol Chem AST [Catalytic activity/Vol] 9 [iU]/d Normal 5 - 43 Int._Unit/L Remisol Chem Bilirubin [Mass/Vol] 0.4 mg/dL Normal 0.0 - 1.1 mg/dL Remisol Chem Calcium [Mass/Vol] 8.1 mg/dL Low 8.9 - 11. 1 mg/dL Remisol Chem Chloride [Moles/Vol] 108 mmol/L Normal 101 - 1 11 mmol/L Remisol Chem CO2 [Moles/Vol] 24 mmol/L Normal 21 - 31 mmol/L Remis ol Chem Creatinine [Mass/Vol] 0.8 mg/dL Normal 0.5 - 1.3 mg/d L Remisol Chem Globulin (S) [Mass/Vol] 2.9 g/dL Normal 1.4 - 4.0 gm/dL Remisol Chem Glucose [Mass/Vol] 96 mg/dL Normal 55 - 199 mg/dL Re misol Chem Potassium [Moles/Vol] 3.4 mmol/L Low 3.5 - 5.3 mmol/L Remisol Chem Protein [Mass/Vol] 6.2 g/dL Normal 6.0 - 7.8 gm/dL R emisol Chem Sodium [Moles/Vol] 142 mmol/L Normal 135 - 145 mmol/L Remisol Chem Urea nitrogen [Mass/Vol] 13 mg/dL Normal 5 - 21 mg/dL Remisol Chem Urea nitrogen/Creatinine [Mass ratio] 16 mg/mg Normal 10 - 20 Remisol Chem CMPon 06-13-2023 Albumin [Mass/Vol] 3.3 g/dL Normal 3.3-5.0 [facility] Comment on above: Performed By: #### 2 044372, 8165451 ####[facility] [address] [place] [address] Albumin/Globulin (S) [Mass conc ratio] 1.1 Normal 1.1-2.2 [facility] Comment on above: Performed By: #### 2 237265, 3047924 ####[facility] [address] [place] [address] ALP [Catalytic activity/Vol] 118 Int._Unit/L High 21-98 [facility] Comment on above: Performed By: #### 2 821829, 7392157 ####[facility] [address] [place] [address] ALT No additional P-5'-P [Catalytic activity/Vol] 7 Int._Unit/L Normal 6-46 [facility] Comment on above: Performed By: #### 2 075126, 2668319 ####[facility] [address] [place] [address] Anion gap [Moles/Vol] 13 mmol/L Normal 6-16 [facility] Comment on above: Performed By: #### 2 639544, 0864794 ####[facility] [address] [place] [address] AST [Catalytic activity/Vol] 9 Int._Unit/L Normal 5-43 [facility] Comment on above: Performed By: #### 2 269021, 6202568 ####[facility] [address] [place] [address] Bilirubin [Mass/Vol] 0.4 mg/dL Normal 0.0-1.1 [facility] Comment on above: Performed By: #### 2 846852, 0265455 ####[facility] [address] [address] Calcium [Mass/Vol] 8.1 mg/dL Low 8.9-11.1 [facility] Comment on above: Performed By: #### 2 235050, 5000815 ####[facility] [address] [place] [address] Chloride [Moles/Vol] 108 mmol/L Normal 101-111 [facility] Comment on above: Performed By: #### 2 292049, 4389943 ####[facility] [address] [place] [address] CO2 [Moles/Vol] 24 mmol/L Normal 21-31 [facility] Comment on above: Performed By: #### 2 093750, 6012743 ####[facility] [address] [place] [address] Creatinine [Mass/Vol] 0.8 mg/dL Normal 0.5-1.3 [facility] Comment on above: Performed By: #### 2 369086, 0472139 ####[facility] [address] [facility] [place] [address] Globulin (S) [Mass/Vol] 2.9 g/dL Normal 1.4-4.0 [facility] Comment on above: Performed By: #### 2 258802, 8600233 ####[facility] [address] [place] [address] Glucose [Mass/Vol] 96 mg/dL Normal 55-199 [facility] Comment on above: Performed By: #### 2 895422, 3719020 ####[facility] [address] [place] [address] Potassium [Moles/Vol] 3.4 mmol/L Low 3.5-5.3 [facility] Comment on above: Performed By: #### 2 918887, 9344110 ####[facility] [address] [place] [address] Protein [Mass/Vol] 6.2 g/dL Normal 6.0-7.8 [facility] Comment on above: Performed By: #### 2 285368, 0758810 ####[facility] [address] [place] [address] Sodium [Moles/Vol] 142 mmol/L Normal 135-145 [facility] Comment on above: Performed By: #### 2 140458, 0108621 ####[facility] [address] [place] [address] Urea nitrogen [Mass/Vol] 13 mg/dL Normal 5-21 [facility] Comment on above: Performed By: #### 2 943823, 4084293 ####[facility] [address] [place] [address] Urea nitrogen/Creatinine [Mass ratio] 16 No Units Normal 10-20 [facility] Comment on above: Performed By: #### 2 171093, 0346957 ####[facility] [address] [place] [address] Consent for Treatmenton 06-01 Consent for Treatment [id number]#1 .00TIFF Normal [facility] HEMATOLOGYOrdered By: Luke Lambert on 06-13-2023 Anisocytosis Ql (Bld) PRESENT *NA* (06/13/23 1:42 PM) Invalid Interpretation Code Remisol Heme Band form neutrophils/100 WBC (Bld) 1 % Normal 0 - 6 % Remisol Heme Basophils (Bld) [#/Vol] 0.1 E9/L Normal 0.0 - 0.2 E9/L Remisol Heme Basophils/100 WBC (Bld) 0.6 % Normal 0.0 - 2.0 % Remisol Heme Basophils/100 WBC (Bld) 1.0 % Normal 0.0 - 2.0 % Remisol Heme Basophils/Leukocytes Auto (Bld) [Pure # fraction] 0.1 E9/L Normal 0.0 - 0.2 E9/L [facility] Heme Eosinophils (Bld) [#/Vol] 0.3 E9/L Normal 0.0 - 0.5 E9/L [facility] Heme Eosinophils (Bld) [#/Vol] 0.4 E9/L Normal 0.0 - 0.5 E9/L Rem[facility] Heme Eosinophils/100 WBC (Bld) 2.1 % Normal 0.0 - 8.0 % Remisol Heme Eosinophils/100 WBC (Bld) 3.0 % Normal 0.0 - 8.0 [facility] Erythrocyte distribution width (RBC) [Ratio] 25.0 % High 10.9 - 14.2 % Rem[facility] Heme Hematocrit (Bld) [Volume fraction] 29.7 % Low 34.0 - 46.0 % Remisol Heme Hemoglobin (Bld) [Mass/Vol] 9.1 g/dL Low 12.0 - 16.0 gm/dL Remisol Heme Hypochromia Auto Ql (Bld) PRESENT *NA* (06/13/23 1:42 PM) Invalid Interpretation Code [facility]e Lymphocytes (Bld) [#/Vol] 1.6 E9/L Normal 1.0 - 4.0 E9/L Remisol Heme Lymphocytes (Bld) [#/Vol] 1.7 E9/L Normal 1.0 - 4.0 E9/L Remisol Heme Lymphocytes/100 WBC (Bld) 12.2 % Low 14.0 - 50.0 % Remisol Heme Lymphocytes/100 WBC (Bld) 13.0 % Low 14.0 - 50.0 % Remisol Heme MCH (RBC) [Entitic mass] 25.0 pg Low 27.0 - 34.0 pg Remisol Heme MCHC (RBC) [Mass/Vol] 30.5 g/dL Low 31.4 - 36.0 gm/dL Remisol Heme MCV (RBC) [Entitic vol] 81.7 fL Normal 80.0 - 100.0 fL Remisol Heme Monocytes (Bld) [#/Vol] 0.6 E9/L Normal 0.2 - 1.0 E9/L Remisol Heme Monocytes (Bld) [#/Vol] 0.3 E9/L Normal 0.2 - 1.0 E9/L Remisol Heme Monocytes/100 WBC (Bld) 4.7 % Normal 4.0 - 14.0 % Remisol Heme Monocytes/100 WBC (Bld) 2.0 % Low 4.0 - 14.0 % Rem[facility] Heme Myelocytes/100 WBC (Bld) 1 % High 0 - 0 % [facility] Heme Neutrophils/100 WBC (Bld) 80.4 % High 36.0 - 75.0 % [facility]e Nucleated cells (Bld) [#/Vol] 1 1 High 0 - 0 [facility] Platelet mean volume (Bld) [Entitic vol] 9.2 fL Normal 6.4 - 10.8 fL Remisol Heme Platelets (Bld) [#/Vol] 247.0 E9/L Normal 150.0 - 500.0 E9/L Remisol Heme RBC (Bld) [#/Vol] 3.6 E12/L Low 4.3 - 5.9 E12/L Re misol Heme Segmented neutrophils/100 WBC (Bld) 79 % High 50 - 70 % Remisol Heme WBC corrected for nucl RBC Auto (Bld) [#/Vol] 12.9 E9/L High 4.0 - 11.0 E9/L [facility] Laboratory - Hematology and Cell countsOrdered By: Luke Lambert on 06-13-2023 Neutrophils (Bld) [#/Vol] 10.4 E9/L Invalid Interpretation Code [facility]e Physician Orderon 06-12-2023 Physician Order [id number]# 1.00TIFF Normal [facility] Ambulatory Visit Summaryon 0 06-09-2023 Ambulatory Visit Summary Normal [facility] Family Medicine Office/Clini c Noteon 06-09-2023 Family Medicine Office/Clinic Note Normal [facility] Comment on above: Result Comment: Elec tronically Signed By: Venkatesh MISTRY, Lázaro Ball\Date and Time Signed: 06/09/23 12:09 EST Oncology Supportive Care Not kevin 06-09-2023 Oncology Supportive Care Note Normal [facility] Oncology Supportive Care Not kevin 06-08-2023 Oncology Supportive Care Note Normal [facility] Outside Pathology Reporton 0 06-08-2023 Outside Pathology Report [id number]#1 .00TIFF Normal [facility] Ambulatory Visit Summaryon 0 06-07-2023 Ambulatory Visit Summary Normal [facility] Erythropoiet Lvlon Erythropoietin (EPO) Qn 212.5 mIU/mL High 2.6-18.5 [facility] Comment on above: Result Comment: Vtrim UniCel DxI 800 Immunoassay SystemValues obtained with different assay methods or kits cannot be usedinterchangeably. Results cannot be interpreted as absolute evidenceof the presence or absence of malignant disease.Performed at: [facility] [place], [place] [id number] PhD Pavel Vasquez Performed By: #### 1 0591004, 4093337, 1318172, [id number] ####[facility] [address] [place] [address] General Surgery Office/Clini c Noteon 06-07-2023 General Surgery Office/Clinic Note Normal [facility] Comment on above: Result Comment: Elec tronically Signed By: Reid SHIPLEY MD\.br\Date and Time Signed: 06/07/23 15:38 EST Outside Pathology Reporton 0 06-07-2023 Outside Pathology Report [id number]# 1.00TIFF Normal [facility] Outside Pathology Report [id number] #1.00TIFF Normal [facility] Reference Lab Reporton 06-06 Reference Lab Report [id number]#1. 00TIFF Normal [facility] Ambulatory Visit Summaryon 0 06-06-2023 Ambulatory Visit Summary Normal [address] [place] [address]- \.br\ Medications\.br \ What How Much When Why Instructions\.b r\ Unchanged aspirin (aspirin 81 mg Oral EC Tab) 1 Tablets By Mouth Every day\.br\ Unchanged atorvastatin (atorvastatin 20 mg Tab) 1 Tablets By Mouth At bedtime\.br\ Unchanged clopidogrel (clopidogrel 75 mg Tab) 1 Tablets By Mouth Every day\.br\ Unchanged dicyclomine (dicyclomine 20 mg Tab) 1 Tablets By Mouth 3 times a day 30 to 60 minutes before meals \.br\ Unchanged dulaglutide (Trulicity Pen 0.75 mg/ 0.5 mL subcutaneous solution) 0.75 Milligram Subcutaneous Every week\.br\ Unchanged furosemide (furosemide 40 mg Tab) 1 Tablets By Mouth Every day\.br\ Unchanged glipiZIDE (glipiZIDE 10 mg Tab) 1 Tablets By Mouth 2 times a day\.br\ Unchanged insulin glargine (Lantus Solostar Pen 100 units/ mL subcutaneous solution) See instructions INJECT 20 UNITS SUBCUTANEOUSLY TWICE A DAY \.br\ Unchanged insulin lispro (HumaLOG KwikPen 100 units/ mL injectable solution) See instructions INJECT 15 UNITS SUBCUTANEOUSLY 3 TIMES A DAY. MAX DOSE OF 45 IN A DAY \.br\ Unchanged lisinopril (lisinopril 30 mg Tab) 1 Tablets By Mouth Every day\.br\ Unchanged metformin (MetFORMIN (Eqv-Glucophage XR) 500 mg oral tablet, extended release) See instructions TAKE 2 TABLETS BY MOUTH TWICE A DAY \.br\ Unchanged metoprolol (metoprolol tartrate 100 mg Tab) 1 Tablets By Mouth 2 times a day\.br\ Unchanged Misc Prescription (Freestyle Brady 2 Flash Glucose Monitoring 14 Day System (Boyce)) See instructions Congestive heart failure, unspecified HF chronicity, unspecified heart failure type Infection of great toe Controlled type 2 diabetes mellitus with other skin complication, without long-term current use of insulin BMI 36.0-36.9,adult Class 1 obesity due to excess calories in adult Smoker Freestyle Brady Flash Glucose Monitoring 14 Day System (Boyce) \.br\ Unchanged Misc Prescription (Freestyle Brady 2 Flash Glucose Monitoring 14 Day System (Sensor)) See instructions Congestive heart failure, unspecified HF chronicity, unspecified heart failure type Infection of great toe Controlled type 2 diabetes mellitus with other skin complication, without long-term current use of insulin BMI 36.0-36.9,adult Class 1 obesity due to excess calories in adult Smoker Freestyle Brady Flash Glucose Monitoring 14 Day System (Sensor). Replace sensor every 14 days. \.br\ Unchanged Misc Prescription (Freestyle Brady 2 Boyce) See instructions Congestive heart failure, unspecified HF chronicity, unspecified heart failure type Infection of great toe Controlled type 2 diabetes mellitus with other skin complication, without long-term current use of insulin BMI 36.0-36.9,adult Class 1 obesity due to excess calories in adult Smoker use as directed \.br\ Unchanged Misc Prescription (Sure comfort 30gx5/ 16 pen needle) See instructions Congestive heart failure, unspecified HF chronicity, unspecified heart failure type Infection of great toe Controlled type 2 diabetes mellitus with other skin complication, without long-term current use of insulin BMI 36.0-36.9,adult Class 1 obesity due to excess calories in adult Smoker twice daily for insulin \.br\ Unchanged Misc Prescription (sure comfort pen needle 30 gauge x 5/ 16) See instructions use bid for E10.8 \.br\ Unchanged ondansetron (ondansetron 8 mg Tab) 1 Tablets By Mouth 3 times a day as needed for Nausea/Vomiting \.br\ Unchanged pantoprazole 40 Milligram\.br\ Unchanged pantoprazole (Pantoprazole [address] Tab) 40 Milligram By Mouth 2 times a day\.br\ Unchanged spironolactone (spironolactone 50 mg Tab) 1 Tablets By Mouth Every day\.br\ Allergies\.br\ albuterol (Severe)\.br\ sulfa drugs (Mild)\.br\ Problems\.br\ Ongoing - Any problem that you are currently receiving treatment for.\.br\ Advanced care planning/counse ling discussion\.br\ Allergic eczema\.br\ Anemia\.br\ BMI 38.0-38.9,adult \.br\ Cancer related pain\.br\ Cardiomyopathy due to hypertension, without heart failure\.br\ Chronic obstructive pulmonary disease\.br\ Congestive heart failure\.br\ Controlled type 2 diabetes mellitus with other skin complication, without long-term current use of insulin\.br\ Diabetic retinopathy\.br \ HTN (hypertension)\ .br\ Hx of cerebral infarction\.br\ Hypercholestero lemia\.br\ Infection of great toe\.br\ Obesity due to excess calories\.br\ Other specified counseling\.br\ Pancreas cancer\.br\ Pancreatic cancer\.br\ Poor venous access\.br\ Smoker\.br\ Patient Survey\.br\ You may receive a survey via text or e-mail asking about your office visit. Please share your experience with us by completing your survey. We appreciate your feedback and thank you for choosing us for your care.\.br\ \.br\ [facility] CBC w/ Auto Diffon 4 Anisocytosis Ql (Bld) PRESENT Invalid Interpretation Code [facility] Comment on above: Performed By: #### 1 [id number], 5200743, 9089888, [id number] ####[facility] [address] [place] [address] Band form neutrophils/100 WBC (Bld) 2 % Normal 0-6 [facility] Comment on above: Performed By: #### 1 3210106, 1459528, 6884827, [id number] ####[address] [address] Basophils (Bld) [#/Vol] 0.0 E9/L Normal 0.0-0.2 [facility] Comment on above: Performed By: #### 1 2227256, 1835479, 5089712, 08196552 ####[address] [address] Basophils/100 WBC (Bld) 0.6 % Normal 0.0-2.0 [facility] Comment on above: Performed By: #### 1 0172944, 0032680, 8316423, [id number] ####[address] [address] Basophils/Leukocytes Auto (Bld) [Pure # fraction] 0.1 E9/L Normal 0.0-0.2 [facility] Comment on above: Performed By: #### 1 5081883, 0806717, [id number], [id number] ####[address] [address] Eosinophils (Bld) [#/Vol] 0.0 E9/L Normal 0.0-0.5 [facility] Comment on above: Performed By: #### 1 9215419, 7407170, 7801182, 18159753 ####[address] [address] Eosinophils (Bld) [#/Vol] 0.5 E9/L Normal 0.0-0.5 [facility] Comment on above: Performed By: #### 1 9358231, 1392501, 9838336, 83280419 ####[address] [address] Eosinophils/100 WBC (Bld) 0.0 % Normal 0.0-8.0 [facility] Comment on above: Performed By: #### 1 8654753, 3266028, 1649647, 98750991 ####[place] [address]557 Eosinophils/100 WBC (Bld) 2.0 % Normal 0.0-8.0 [facility] Comment on above: Performed By: #### 1 4065416, 9371824, 5723244, 62595066 ####[place] [address] Erythrocyte distribution width (RBC) [Ratio] 21.6 % High 10.9-14.2 [facility] Comment on above: Performed By: #### 1 3170342, 0526679, 2161753, 58864305 ####[address] [address] Hematocrit (Bld) [Volume fraction] 26.4 % Low 34.0-46.0 [facility] Comment on above: Performed By: #### 1 5382304, 5156061, 8797215, 61446087 ####[address] [address] Hemoglobin (Bld) [Mass/Vol] 8.3 g/dL Low 12.0-16.0 [facility] Comment on above: Performed By: #### 1 8951508, 0497304, 3826639, 47057349 ####[address] [address] Hypochromia Auto Ql (Bld) PRESENT Invalid Interpretation Code [facility] Comment on above: Performed By: #### 1 0713813, 5066184, 4045777, 60313215 ####[address] [address] Lymphocytes (Bld) [#/Vol] 3.2 E9/L Normal 1.0-4.0 [facility] Comment on above: Performed By: #### 1 5117086, 0215861, 4568994, 65965551 ####[address] [address] Lymphocytes/100 WBC (Bld) 13.0 % Low 14.0-50.0 [facility] Comment on above: Performed By: #### 1 3307961, 8923481, 7697747, 67446847 ####[address] [address] Lymphocytes/100 WBC (Bld) 6.9 % Low 14.0-50.0 [facility] Comment on above: Performed By: #### 1 9990015, 8440722, 2068689, 60147533 ####[address] [address] MCH (RBC) [Entitic mass] 24.9 pg Low 27.0-34.0 [facility] Comment on above: Performed By: #### 1 1657543, 4889024, 4658095, 78863156 ####[address] [address] MCHC (RBC) [Mass/Vol] 31.4 g/dL Normal 31.4-36.0 [facility] Comment on above: Performed By: #### 1 6641328, 8882442, 0253759, 31392253 ####[address] [address] MCV (RBC) [Entitic vol] 79.4 fL Low 80.0-100.0 [facility] Comment on above: Performed By: #### 1 0976407, 7942753, 1943214, 78389560 ####[place] [address] [place] [address] Monocytes (Bld) [#/Vol] 0.7 E9/L Normal 0.2-1.0 [facility] Comment on above: Performed By: #### 1 6480674, 1753359, 4150099, 80036417 ####[address] [address] Monocytes (Bld) [#/Vol] 0.5 E9/L Normal 0.2-1.0 [facility] Comment on above: Performed By: #### 1 8976252, 3523674, 9972453, 83523932 ####[address] [address] Neutrophils (Bld) [#/Vol] 20.4 E9/L Invalid Interpretation Code [facility] Comment on above: Performed By: #### 1 9395559, 4750534, 5531231, 71295567 ####[address] [address] Neutrophils (Bld) [#/Vol] 21.5 E9/L High 2.0-7.5 [facility] Comment on above: Performed By: #### 1 2131668, 2546280, 3282466, 77964192 ####[address] [address] Neutrophils/100 WBC (Bld) 88.5 % High 36.0-75.0 [facility] Comment on above: Performed By: #### 1 2605569, 2470211, 0840862, 81306602 ####[address] [address] Platelet 284.0 E9/L Normal 150.0-500.0 [facility] Comment on above: Performed By: #### 1 6872640, 7657226, 0065851, 64877647 ####[address] [address] Platelet mean volume (Bld) [Entitic vol] 8.3 fL Normal 6.4-10.8 [facility] Comment on above: Performed By: #### 1 4489705, 3374135, 0336227, 24583940 ####[place] [address] [place] [address] RBC (Bld) [#/Vol] 3.3 E12/L Low 4.3-5.9 [facility] Comment on above: Performed By: #### 1 9324330, 1857913, 8163300, 99175433 ####[address] [address] RBC size Nom (Bld) SEE MORPHOLOGY Invalid Interpretation Code [facility] Comment on above: Performed By: #### 1 8184675, 6148593, 2958965, 64668620 ####[address] [address] Segmented neutrophils/100 WBC (Bld) 82 % High 50-70 [facility] Comment on above: Performed By: #### 1 9177053, 4073880, 5664015, 54423816 ####[address] [address] WBC corrected for nucl RBC Auto (Bld) [#/Vol] 24.3 E9/L High 4.0-11.0 [facility] Comment on above: Performed By: #### 1 4046087, 1796843, 0497006, 39242857 ####[address] [address] CMPon 06-06-2023 Albumin [Mass/Vol] 3.3 g/dL Normal 3.3-5.0 [facility] Comment on above: Performed By: #### 1 0149320, 8855254, 4264285, 66740002 ####[place] [address] [place] [address] Albumin/Globulin (S) [Mass conc ratio] 1.1 Normal 1.1-2.2 [facility] Comment on above: Performed By: #### 1 6233869, 4816699, 7944609, 92105838 ####[facility] [address] [place] [address] ALP [Catalytic activity/Vol] 127 Int._Unit/L High 21-98 [facility] Comment on above: Performed By: #### 1 7064200, 2705556, 7811695, 99131532 ####[facility] [address] [place] [address] ALT No additional P-5'-P [Catalytic activity/Vol] 7 Int._Unit/L Normal 6-46 [facility] Comment on above: Performed By: #### 1 4535103, 9168085, 8301991, 92714374 ####[facility] [address] [place] [address] Anion gap [Moles/Vol] 13 mmol/L Normal 6-16 [facility] Comment on above: Performed By: #### 1 3195341, 2594718, 2265162, 15304037 ####[facility] [address] [place] [address] AST [Catalytic activity/Vol] 10 Int._Unit/L Normal 5-43 [facility] Comment on above: Performed By: #### 1 7114346, 3828623, 0179704, 00908610 ####[facility] [address] [place] [place] [address] Bilirubin [Mass/Vol] 0.5 mg/dL Normal 0.0-1.1 [facility] Comment on above: Performed By: #### 1 0991296, 8697685, 5236888, 79269747 ####[facility] [address] [place] [address] Calcium [Mass/Vol] 8.6 mg/dL Low 8.9-11.1 [facility] Comment on above: Performed By: #### 1 7883897, 5407801, 9009802, 58509878 ####[facility] [address] [place] [address] Chloride [Moles/Vol] 106 mmol/L Normal 101-111 [facility] Comment on above: Performed By: #### 1 0776652, 3578085, 4074025, 83246576 ####[facility] [address] [place] [address] CO2 [Moles/Vol] 25 mmol/L Normal 21-31 [facility] Comment on above: Performed By: #### 1 8804298, 4737247, 6875723, 23308741 ####[facility] [address] [place] [address] Creatinine [Mass/Vol] 0.7 mg/dL Normal 0.5-1.3 [facility] Comment on above: Performed By: #### 1 8129793, 1329753, 2939288, 11940757 ####[facility] [address] [place] [address] Globulin (S) [Mass/Vol] 3.0 g/dL Normal 1.4-4.0 [facility] Comment on above: Performed By: #### 1 7129959, 0308567, 1190256, 90225398 ####[facility] [address] [facility] [place] [address] Glucose [Mass/Vol] 104 mg/dL Normal 55-199 [facility] Comment on above: Performed By: #### 1 9996599, 2126149, 7163664, 57994468 ####[facility] [address] [facility] [address] Potassium [Moles/Vol] 3.5 mmol/L Normal 3.5-5.3 [facility] Comment on above: Performed By: #### 1 6549510, 5384180, 8644750, 14425215 ####[facility] [address] [facility] [place] [address] Protein [Mass/Vol] 6.3 g/dL Normal 6.0-7.8 [facility] Comment on above: Performed By: #### 1 8158424, 0049581, 1875532, 77751104 ####[facility] [address] [place] [address] Sodium [Moles/Vol] 140 mmol/L Normal 135-145 [facility] Comment on above: Performed By: #### 1 5985903, 0993757, 8409407, 51560108 ####[facility] [address] [place] [address] Urea nitrogen [Mass/Vol] 14 mg/dL Normal 5-21 [facility] Comment on above: Performed By: #### 1 2900391, 9222929, 5883694, 34645118 ####[facility] [address] [place] [address] Urea nitrogen/Creatinine [Mass ratio] 20 No Units Normal 10-20 [facility] Comment on above: Performed By: #### 1 6327027, 8510056, 2476392, 44103393 ####[facility] [address] [place] [address] Consent for Treatmenton Consent for Treatment [id number]# 1.00TIFF Normal [facility] Consent for Treatment [id number]#1 .00TIFF Normal [facility] RAD - MISCon 06-06-2023 RAD - MISC [id number]#1 .00TIFF Normal [facility] eGFRon 06-06-2023 eGFR 96 mL/min/1.73 m2 Normal >=59 [facility] Comment on above: Order Comment: Order added by Discern Expert. Performed By: #### 1 9462252, 8407537, 8586585, 45630459 ####[facility] [address] [place] [address] Oncology Progress Noteon Oncology Progress Note Normal [facility] Outside Pathology Reporton 0 06-04-2023 Outside Pathology Report [id number]# 1.00TIFF Normal [facility] Consent for Treatmenton 03-0 Consent for Treatment [id number] 403 [id number]#1 .00TIFF Normal [facility] RCOon 06-01-2023 # of Units 1 Invalid Interpretation Code [facility] Comment on above: Performed By: #### 1 6446057 ####[facility] [address] [place] [address] Date Required 20230602 Invalid Interpretation Code [facility] Comment on above: Performed By: #### 1 7722205 ####[facility] [address] [place] [address] Order to Transfuse Yes Normal [facility] Comment on above: Performed By: #### 1 6632739 ####[facility] [address] [place] [address] Product Type None Required Invalid Interpretation Code [facility] Comment on above: Performed By: #### 1 0861728 ####[facility] [address] [place] [address] CA 19-9on 05-31-2023 Cancer Ag 19-9 Qn 1510 unit/mL High 0-35 [facility] Comment on above: Result Comment: Resu lts confirmed ondilution.[employer] Electrochemiluminescence Immunoassay (ECLIA)Values obtained with different assay methods or kits cannot beused interchangeably. Results cannot be interpreted as absoluteevidence of the presence or absence of malignant disease.Performed at: [address] [id number] PhD Pavel Vasquez Performed By: #### 2 543089, 5583987, 72361479, 3808718, 57932205, 30577211, 67011946 ####[facility] [address] [place] [address] Consent for Treatmenton 05-05 Consent for Treatment [id number]#1 .00TIFF Normal [facility] Path. Reviewon 05-31-2023 Path Review Anemia with anisocytosis, microcytes, occasional ovalocytes and target cells. Polychromasia noted. Clinical correlation and follow-up is indicated to determine etiology. Invalid Interpretation Code [facility] Comment on above: Order Comment: Order added by Discern Expert Performed By: #### 2 514416, 3709109, 18567660, 5576014, 29097787, 42998823, 66463009 ####[facility] [address] [place] [address] Path. Review Anemia with anisocytosis, microcytes, occasional ovalocytes and target cells. Polychromasia noted. Clinical correlation and follow-up is indicated to determine etiology. D64.9 CPT 24002 Invalid Interpretation Code [facility] Comment on above: Other Comment: Order added by Discern Expert RCPeyton 05-31-2023 # of Units 1 Invalid Interpretation Code [facility] Comment on above: Performed By: #### 1 9735639 ####[facility] [address] [place] [address] Date Required 20230530 Invalid Interpretation Code [facility] Comment on above: Performed By: #### 1 9350771 ####[facility] [address] [place] [address] Order to Transfuse Yes Normal [facility] Comment on above: Performed By: #### 1 6606677 ####[facility] [address] [place] [address] Product Type None Required Invalid Interpretation Code [facility] Comment on above: Performed By: #### 1 3285562 ####[facility] [address] [place] [address] ABO/Rhon 05-30-2023 ABO/Rh Positive Invalid Interpretation Code [facility] Comment on above: Performed By: #### 1 4350449, 91595267, 9321864, 00668736 ####[facility] [address] [place] [address] ABO/Rh History Checkon 05-30 ABO/Rh History Check Type verified by second s Normal [facility] Comment on above: Performed By: #### 1 4026905, 26950955, 4187783, 11574288 ####[facility] [address] [place] [address] ABO/Rh Retypeon 05-30-2023 ABO/Rh Retype Interp Positive Invalid Interpretation Code [facility] Comment on above: Performed By: #### 2 439735, 1695379, 42241252, 0298941, 80423096, 56230079, 14556025 ####[place] [address] [place] [address] ABSCon 05-30-2023 ABSC Gel Interp Negative Normal [facility] Comment on above: Performed By: #### 1 9208211, 14453668, 1278956, 28559188 ####[address] [address] BLOOD BANKOrdered By: Sandra Perez on 05-30-2023 ABO/Rh Interp Positive Invalid Interpretation Code [facility] BB Subsection ABO/Rh Retype Interp Positive Invalid Interpretation Code [facility] BB Subsection BLOOD BANKOrdered By: Luke Lambert on 05-30-2023 ABSC Gel Interp Negative (05/30/23 2:17 PM) Normal [facility] BB Subsection Blood Bank ID#on 05-30-2023 BBID# [id number] Invalid Interpretation Code [facility] Comment on above: Performed By: #### 1 8276105, 64039769, 2641433, 23054479 ####[place] [address] [place] [address] CBC w/ Auto Diffon Anisocytosis Ql (Bld) PRESENT Invalid Interpretation Code [facility] Comment on above: Performed By: #### 2 479817, 2168589, 99981428, 0764718, 63330910, 96954880, 43349590 ####[facility] [address] [place] [address] Hypochromasia PRESENT Invalid Interpretation Code [facility] Comment on above: Performed By: #### 2 509911, 0555376, 21973257, 1220849, 64742767, 12713724, 94837761 ####[facility] [address] [place] [address] Microcyte PRESENT Invalid Interpretation Code [facility] Comment on above: Performed By: #### 2 667141, 7277170, 01446574, 9910188, 46032096, 72711127, 33492335 ####[address] [address] Ovalocytes PRESENT Invalid Interpretation Code [facility] Comment on above: Performed By: #### 2 063106, 8834867, 64081016, 4159822, 63719929, 03996106, 31171881 ####[place] [address] Polychromasia PRESENT Invalid Interpretation Code [facility] Comment on above: Performed By: #### 2 401867, 1180555, 32086717, 1525549, 17830545, 17840078, 96802774 ####[place] [address] RBC morphology finding Nom (Bld) SEE MORPHOLOGY Invalid Interpretation Code [facility] Comment on above: Performed By: #### 2 776953, 9019061, 82392316, 5562836, 79926423, 03519589, 70440404 ####[address] [address] Basophil Absolute 0.2 E9/L Normal 0.0-0.2 [facility] Comment on above: Performed By: #### 2 776590, 6785956, 48240287, 6719448, 65468472, 26399762, 23062429 ####[address] [address] Basophils/100 WBC (Bld) 1.4 % Normal 0.0-2.0 [facility] Comment on above: Performed By: #### 2 708443, 4359892, 95454721, 8906380, 37405529, 09177318, 92739009 ####[address] [place] [address] Eos Absolute 0.3 E9/L Normal 0.0-0.5 [facility] Comment on above: Performed By: #### 2 523412, 1406374, 54000964, 4801860, 94749278, 26663864, 47183778 ####[facility] [address] [place] [address] Eosinophils/100 WBC (Bld) 2.5 % Normal 0.0-8.0 [facility] Comment on above: Performed By: #### 2 681436, 8756725, 44186199, 3218951, 48012739, 92004698, 98709129 ####[place] [address] [place] [address] Erythrocyte distribution width (RBC) [Ratio] 19.6 % High 10.9-14.2 [facility] Comment on above: Performed By: #### 2 995272, 2543152, 28222385, 2220769, 58761793, 90898259, 75063208 ####[address] [address] Hematocrit (Bld) [Volume fraction] 23.0 % Low 34.0-46.0 [facility] Comment on above: Performed By: #### 2 240172, 7049690, 83053122, 5621544, 29105901, 40861834, 94284676 ####[address] [address] Hemoglobin (Bld) [Mass/Vol] 6.7 g/dL Abnormal 12.0-16.0 [facility] Comment on above: Result Comment: Crit ical Result Verified by Repeat AnalysisResults called to ZACKARY FELIZ by [id number] and read back on 05/30/2023 13:52:33. Performed By: #### 2 304933, 8897894, 27387588, 1132717, 88092517, 84342816, 32636791 ####[address] [address] Lymph Absolute 1.9 E9/L Normal 1.0-4.0 [facility] Comment on above: Performed By: #### 2 631806, 7294383, 90865575, 9786819, 36002980, 58045183, 87099059 ####[facility] [address] [place] [address] Lymphocytes/100 WBC (Bld) 16.5 % Normal 14.0-50.0 [facility] Comment on above: Performed By: #### 2 614291, 9660891, 51102855, 5235904, 21571128, 78440624, 53166155 ####[facility] [address] [place] [address] MCH (RBC) [Entitic mass] 22.7 pg Low 27.0-34.0 [facility] Comment on above: Performed By: #### 2 846279, 6225642, 58437737, 4314442, 20168374, 34177370, 73794538 ####[facility] [address] [place] [address] MCHC (RBC) [Mass/Vol] 29.4 g/dL Low 31.4-36.0 [facility] Comment on above: Performed By: #### 2 493576, 1085139, 47841510, 1587249, 10502560, 46563786, 83024064 ####[facility] [address] [place] [address] MCV (RBC) [Entitic vol] 77.2 fL Low 80.0-100.0 [facility] Comment on above: Performed By: #### 2 452180, 2747485, 84869129, 9864903, 23380800, 69518702, 38422774 ####[facility] [address] [place] [address] [place] Absolute 0.6 E9/L Normal 0.2-1.0 [facility] Comment on above: Performed By: #### 2 495875, 3189575, 35704413, 8559429, 69869398, 46298452, 43220219 ####[place] [place] [address] Monocytes/100 WBC (Bld) 5.0 % Normal 4.0-14.0 [facility] Comment on above: Performed By: #### 2 575709, 5927192, 24766003, 0031776, 50448859, 34997555, 61972285 ####[facility] [address] [place] [address] Neutro Absolute 8.4 E9/L High 2.0-7.5 [facility] Comment on above: Performed By: #### 2 738670, 9085337, 35365117, 5211768, 42887287, 12893794, 01127249 ####[address] [address] Neutro Auto 74.6 % Normal 36.0-75.0 [facility] Comment on above: Performed By: #### 2 813982, 5296752, 51841287, 2553062, 83823049, 94248073, 87159731 ####[address] [address] Platelet 346.0 E9/L Normal 150.0-500.0 [facility] Comment on above: Performed By: #### 2 813288, 8115426, 80335020, 2953432, 01301503, 64374603, 63077882 ####[address] [address] Platelet mean volume (Bld) [Entitic vol] 9.3 fL Normal 6.4-10.8 [facility] Comment on above: Performed By: #### 2 050294, 7818576, 36510048, 0176370, 44356963, 15170996, 42696779 ####[address] [place] [address] RBC 2.9 E12/L Low 4.3-5.9 [facility] Comment on above: Performed By: #### 2 401314, 3250685, 26109313, 4504088, 34477328, 51322487, 66142094 ####[facility] [address] [place] [address] WBC 11.3 E9/L High 4.0-11.0 [facility] Comment on above: Performed By: #### 2 545442, 6938620, 23971000, 2211141, 34309267, 97488394, 93514391 ####[facility] [address] [place] [address] CEAon 05-30-2023 CEA 10.6 ng/mL Invalid Interpretation Code [facility] Comment on above: Result Comment: 'NON -SMOKER < 2.5''SMOKER < 5.0'The concentration of CEA in a given specimen determined by different manufacturers can vary due to differences in assay methods and reagent specificity. Values obtained with different assay methods cannot be used interchangeably. The methodology used to perform this test was chemiluminescence using [employer]'s Access CEA reagent. Performed By: #### 2 908285, 5903019, 56765110, 6676515, 89555831, 46837438, 36559215 ####[facility] [address] [place] [address] CHEMISTRYOrdered By: SYSTEM SYSTEM on 05-30-2023 Albumin [Mass/Vol] 3.3 g/dL Normal 3.3 - 5.0 gm/dL R emisol Chem Albumin/Globulin [Mass ratio] 1.1 {ratio} Normal 1.1 - 2.2 Remisol Chem Alk Phos 94 [iU]/d Normal 21 - 98 Int._Unit/L Remisol Chem ALT 6 [iU]/d Normal 6 - 46 Int._Unit/L Remisol Chem Anion gap [Moles/Vol] 14 mmol/L Normal 6 - 16 mEq/L R emisol Chem AST 8 [iU]/d Normal 5 - 43 Int._Unit/L Remisol Chem Bili Total 0.5 mg/dL Normal 0.0 - 1.1 mg/dL Remisol C hem Calcium [Mass/Vol] 8.2 mg/dL Low 8.9 - 11. 1 mg/dL Remisol Chem CEA 10.6 ng/mL Invalid Interpretation Code Remisol Chem Comment [...] to perform this test was chemiluminescence using [employer] Access CEA reagent. Chloride [Moles/Vol] 106 mmol/L Normal 101 - 1 11 mmol/L Remisol Chem CO2 [Moles/Vol] 23 mmol/L Normal 21 - 31 mmol/L Remis ol Chem Creatinine [Mass/Vol] 0.7 mg/dL Normal 0.5 - 1.3 mg/d L Remisol Chem eGFR 96 mL/min/1.73 m2 Normal >=59mL/min /1.73 m2 Remisol Chem Globulin (S) [Mass/Vol] 3.1 g/dL Normal 1.4 - 4.0 gm/dL Remisol Chem Glucose [Mass/Vol] 221 mg/dL High 55 - 199 mg/dL Re misol Chem Potassium [Moles/Vol] 3.8 mmol/L Normal 3.5 - 5.3 mmol/L Remisol Chem Protein [Mass/Vol] 6.4 g/dL Normal 6.0 - 7.8 gm/dL R emisol Chem Sodium [Moles/Vol] 139 mmol/L Normal 135 - 145 mmol/L Remisol Chem Urea nitrogen [Mass/Vol] 20 mg/dL Normal 5 - 21 mg/dL Remisol Chem Urea nitrogen/Creatinine [Mass ratio] 29 mg/mg High 10 - 20 Remisol Chem CMPon 05-30-2023 Albumin [Mass/Vol] 3.3 g/dL Normal 3.3-5.0 [facility] Comment on above: Performed By: #### 2 416311, 1758139, 44318181, 5146276, 79550630, 35053256, 47452537 ####[facility] [place] [address] Albumin/Globulin [Mass ratio] 1.1 {ratio} Normal 1.1-2.2 [facility] Comment on above: Performed By: #### 2 514397, 6730115, 97928699, 9997059, 26768019, 85073965, 92038174 ####[facility] [address] [place] [address] Alk Phos 94 Int._Unit/L Normal 21-98 [facility] Comment on above: Performed By: #### 2 147803, 9026841, 43438818, 8807021, 64909475, 65342375, 41304263 ####[facility] [address] [place] [address] ALT 6 Int._Unit/L Normal 6-46 [facility] Comment on above: Performed By: #### 2 604220, 5897050, 18823980, 4702833, 40836864, 31203930, 60658563 ####[facility] [address] [place] [address] Anion gap [Moles/Vol] 14 mmol/L Normal 6-16 [facility] Comment on above: Performed By: #### 2 261267, 7698618, 80982978, 8169519, 37526772, 34673577, 54844097 ####[facility] [address] [place] [address] AST 8 Int._Unit/L Normal 5-43 [facility] Comment on above: Performed By: #### 2 549640, 1050767, 25963553, 8447033, 45966360, 95736097, 69659682 ####[facility] [address] [place] [address] Bili Total 0.5 mg/dL Normal 0.0-1.1 [facility] Comment on above: Performed By: #### 2 555019, 5289610, 89627718, 9438821, 67984007, 45679316, 26773310 ####[facility] [address] [place] [address] BUN/Creat Ratio 29 No Units High 10-20 [facility] Comment on above: Performed By: #### 2 890865, 7046721, 71549570, 4211778, 70809346, 14813729, 96795197 ####[facility] [address] [place] [address] Calcium [Mass/Vol] 8.2 mg/dL Low 8.9-11.1 [facility] Comment on above: Performed By: #### 2 104527, 0335117, 02894167, 6850426, 91602868, 28423037, 75145503 ####[facility] [address] [place] [address] Chloride [Moles/Vol] 106 mmol/L Normal 101-111 [facility] Comment on above: Performed By: #### 2 341846, 4587219, 88089104, 5721355, 00727390, 99982688, 72203369 ####[facility] [address] [place] [address] CO2 [Moles/Vol] 23 mmol/L Normal 21-31 [facility] Comment on above: Performed By: #### 2 534001, 6873395, 08711359, 5512764, 82631956, 75979674, 94001545 ####[facility] [address] [place] [address] Creatinine [Mass/Vol] 0.7 mg/dL Normal 0.5-1.3 [facility] Comment on above: Performed By: #### 2 635003, 2320933, 74632736, 4413197, 00572117, 19090982, 65318270 ####[facility] [address] [place] [address] Globulin (S) [Mass/Vol] 3.1 g/dL Normal 1.4-4.0 [facility] Comment on above: Performed By: #### 2 019927, 0866784, 04472192, 3231260, 85134589, 17418390, 57939670 ####[facility] [address] [place] [address] Glucose [Mass/Vol] 221 mg/dL High 55-199 [facility] Comment on above: Performed By: #### 2 486152, 7296685, 57237739, 6392120, 19149817, 75388503, 63080606 ####[facility] [address] [place] [address] Potassium [Moles/Vol] 3.8 mmol/L Normal 3.5-5.3 [facility] Comment on above: Performed By: #### 2 856461, 2490029, 93990728, 5801586, 10242051, 01220768, 06054650 ####[facility] [address] [place] [address] Protein [Mass/Vol] 6.4 g/dL Normal 6.0-7.8 [facility] Comment on above: Performed By: #### 2 247662, 9138276, 97814130, 3790285, 75261384, 04761534, 00411006 ####[facility] [address] [place] [address] Sodium [Moles/Vol] 139 mmol/L Normal 135-145 [facility] Comment on above: Performed By: #### 2 726715, 3636555, 80109251, 7242165, 37952014, 31456387, 32648667 ####[facility] [address] [place] [address] Urea nitrogen [Mass/Vol] 20 mg/dL Normal 5-21 [facility] Comment on above: Performed By: #### 2 656133, 5298125, 66873436, 6298406, 33603327, 27475082, 95713527 ####[facility] [address] [place] [address] Consent for Blood Transfusio non 05-30-2023 Consent for Blood Transfusion [id number]# 1.00TIFF Normal [facility] Consent for Treatmenton 05-05 Consent for Treatment [id number]#1 .00TIFF Normal [facility] HEMATOLOGYOrdered By: Luke Lambert on 05-30-2023 Anisocytosis Ql (Bld) PRESENT Invalid Interpretation Code Remisol Heme Hypochromasia PRESENT Invalid Interpretation Code Remisol Heme Microcyte PRESENT Invalid Interpretation Code Remisol Heme Ovalocytes PRESENT Invalid Interpretation Code Remisol Heme Polychromasia PRESENT Invalid Interpretation Code Remisol Heme RBC morphology finding Nom (Bld) SEE MORPHOLOGY Invalid Interpretation Code Remisol Heme HEMATOLOGYOrdered By: SYSTEM SYSTEM on 05-30-2023 Basophil Absolute 0.2 E9/L Normal 0.0 - 0.2 E9/L Rem isol Heme Basophils/100 WBC (Bld) 1.4 % Normal 0.0 - 2.0 % Remisol Heme Eos Absolute 0.3 E9/L Normal 0.0 - 0.5 E9/L Remisol Heme Eosinophils/100 WBC (Bld) 2.5 % Normal 0.0 - 8.0 % Remisol Heme Erythrocyte distribution width (RBC) [Ratio] 19.6 % High 10.9 - 14.2 % Remisol Heme Hematocrit (Bld) [Volume fraction] 23.0 % Low 34.0 - 46.0 % Remisol Heme Hemoglobin (Bld) [Mass/Vol] 6.7 g/dL Invalid Interpretation Code 12.0 - 16.0 gm/dL Remisol Heme Comment on above: Result Comment: Crit ical Result Verified by Repeat Analysis Results called to ZACKARY FELIZ by [id number] and read back on 05/30/2023 13:52:33. Lymph Absolute 1.9 E9/L Normal 1.0 - 4.0 E9/L Remiso l Heme Lymphocytes/100 WBC (Bld) 16.5 % Normal 14.0 - 50.0 % Remisol Heme MCH (RBC) [Entitic mass] 22.7 pg Low 27.0 - 34.0 pg Remisol Heme MCHC (RBC) [Mass/Vol] 29.4 g/dL Low 31.4 - 36.0 gm/dL Remisol Heme MCV (RBC) [Entitic vol] 77.2 fL Low 80.0 - 100.0 fL Remisol Heme [place] Absolute 0.6 E9/L Normal 0.2 - 1.0 E9/L Remisol Heme Monocytes/100 WBC (Bld) 5.0 % Normal 4.0 - 14.0 % Remisol Heme Neutro Absolute 8.4 E9/L High 2.0 - 7.5 E9/L Remis ol Heme Neutro Auto 74.6 % Normal 36.0 - 75.0 % Remisol He me Platelet 346.0 E9/L Normal 150.0 - 500.0 E9/L Remisol Heme Platelet mean volume (Bld) [Entitic vol] 9.3 fL Normal 6.4 - 10.8 fL Remisol Heme RBC 2.9 E12/L Low 4.3 - 5.9 E12/L Remisol H penny WBC 11.3 E9/L High 4.0 - 11.0 E9/L Remisol H penny Insurance Correspondenceon 0 05-30-2023 Insurance Correspondence [id number]#1 .00TIFF Normal [facility] eGFRon 05-30-2023 eGFR 96 mL/min/1.73 m2 Normal >=59 [facility] Comment on above: Order Comment: Order added by Discern Expert. Performed By: #### 2 945945, 7968554, 75719312, 7050916, 70090121, 12004159, 18568519 ####[facility] [address] [place] [address] BRONCHOSCOPYon 05-26-2023 BRONCHOSCOPY Table formatting fro m the original result was not included. Normal [facility] Comment on above: Order Comment: [facility] hoscopy Scheduling Request Bronchoscopy studyon 024 Table formatting fro m the original result was not included. Impression All observed locations appeared normal, including the trachea, main timothy, left lung and right lung. Normal Lymph nodes observed at stations 2L, 4L, 11L, 7, 4R and 11R. Sampled 7, 4R and 11R using TBNA. Findings All observed locations appeared normal, including the trachea, main timothy, left lung and right lung. Thin clear secretions were observed throughout both lungs. These were suctioned without difficulty. Navigational bronchoscopy performed with [employer] system using automatic registration for right lower lobe nodule. Target 1 cm in size identified and navigation performed, location confirmed with radial EBUS and flouroscopy. Radial EBUS view centric. Sampling performed with cytology brush x 1 with 3 passes; cytology arcpoint needle for FNA x 8 passes. Transbronchial biopsies performed with biopsy forceps for 4 biopsies obtained, sent for histopathology. Preliminary results with MARTELL from brush slides showed atypical cells, final results pending. Lymph node observed at station 2L measuring 4 mm. A sample was not taken at station 2L. Lymph node observed at station 4L measuring 3 mm. A sample was not taken at station 4L. Lymph node observed at station 11L measuring 3 mm. A sample was not taken at station 11L. Lymph node observed at station 7 measuring 6 mm. Took 3 passes. The sample was adequate. Lymph node observed at station 4R measuring 10 mm. Took 3 passes. The sample was adequate. Lymph node observed at station 11R measuring 6 mm. Took 3 passes. The sample was adequate. Nodes observed under convex ultrasound guidance. 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 Staging EBUS performed for right lung nodule. Passes obtained with 22 G Vizishot needle 11L measured 3.2 mm, not sampled due to < 5mm 4L measured 3.0 mm, not sampled due to < 5mm 2L measured 4.3 mm, not sampled due to < 5mm 7 measured 6.3 mm, 3 passes obtained for cytology 4R measured 9.7 mm, 3 passes obtained for cytology 11Rs measured 4.7 mm, not sampled due to < 5mm 11Ri measured 5.9 mm, 3 passes obtained for cytology Stations 10L, 2R, and 10R were not observed (small < 5 mm, poorly formed)- not sampled. Scope exchanged for therapeutic bronchoscope to perform therapeutic suctioning. Hemostasis maintained at end of case and care turned over to anesthesia team. Recommendation Follow up bronchoscopy Follow up with referring physician Indication Lymphadenopathy, Lung nodule Staff Staff Role Cristo Zheng MD Proceduralist Alyssa Padgett MD Fellow Medications See Anesthesia Record. Preprocedure A history and physical has been performed, and patient medication allergies have been reviewed. The patient's tolerance of previous anesthesia has been reviewed. The risks and benefits of the procedure and the sedation options and risks were discussed with the patient. All questions were answered and informed consent obtained. Details of the Procedure The patient underwent general anesthesia, which was administered by an anesthesia professional. The patient's blood pressure, ECG, ETCO2, heart rate, level of consciousness, oxygen and respirations were monitored throughout the procedure. The patient's estimated blood loss was minimal (<5 mL). The scope was introduced through the endotracheal tube. The procedure was not difficult. The patient tolerated the procedure well. There were no apparent adverse events. Events Procedure Events Event Event Time ENDO SCOPE IN TIME 05/26/2023 8:57 AM ENDO SCOPE OUT TIME 05/26/2023 10:58 AM Specimens ID Type Source Tests Collected by Time 1 : TBBX (RLL Nodule) Tissue TRANSBRONCHIAL BIOPSY SURGICAL PATHOLOGY EXAM Cristo Zheng MD 05/26/2023 1012 A : Non-Gynecologic Cytology BRONCHIAL BRUSH RIGHT LOWER LOBE CYTOLOGY CONSULTATION (NON-GYNECOLOGIC) Cristo Zheng MD 05/26/2023 0939 B : Non-Gynecologic Cytology LUNG FINE NEEDLE ASPIRATION RIGHT LOWER LOBE CYTOLOGY CONSULTATION (NON-GYNECOLOGIC) Cristo Zheng MD 05/26/2023 0948 C : Non-Gynecologic Cytology LYMPH NODE 7 PULMONARY FINE NEEDLE ASPIRATION CYTOLOGY CONSULTATION (NON-GYNECOLOGIC) Cristo Zheng MD 05/26/2023 1021 D : Non-Gynecologic Cytology LYMPH NODE 4 R PULMONARY FINE NEEDLE ASPIRATION CYTOLOGY CONSULTATION (NON-GYNECOLOGIC) Cristo Zheng MD 05/26/2023 1036 E : Non-Gynecologic Cytology LYMPH NODE 11 Ri PULMONARY FINE NEEDLE ASPIRATION CYTOLOGY CONSULTATION (NON-GYNECOLOGIC) Cristo Zheng MD 05/26/2023 1046 Procedure Location [facility] [address] [facility] [address] [place] [address] [place] [address] Procedure Provider Cristo Duff MD [facility] Work Phone: [facility] Work Phone: Radiology Study observation (narrative) [facility] Work Phone: CT CHEST WITHOUT FOR MARIUSZ BR ONC PLANNINGon 05-26-2023 CT CHEST WITHOUT FOR MARIUSZ BRONC PLANNING Interpreted By: Shara Bonilla, STUDY: CT CHEST WITHOUT FOR MARIUSZ [facility] PLANNING; 05/26/2023 7:36 am INDICATION: Signs/Symptoms:Naviga tional Bronchoscopy. COMPARISON: 04/24/2023 from outside institution [facility] ACCESSION NUMBER(S): [id number] ORDERING CLINICIAN: CATIA LYON TECHNIQUE: Helical data acquisition of the chest was obtained without IV contrast material. Images were reformatted in axial, coronal, and sagittal planes. FINDINGS: Hilar, vessel, and solid organ evaluation limited without IV contrast. CHEST WALL AND LOWER NECK: Partially included right anterior chest wall port with catheter extending to the distal SVC. Mild stranding and dots of air adjacent to the port likely related to recent placement/manipulatio n. No significant axillary lymphadenopathy as visualized. Portions of the lateral chest wall excluded from field of imaging. MEDIASTINUM AND BENNIE: Limited hilar assessment on unenhanced exam. 1.4 cm precarinal node. Additional subcentimeter nodes in the anterosuperior mediastinum. HEART AND VESSELS: Lack of IV contrast precludes vascular luminal assessment. The heart is normal in size. Trace pericardial fluid/thickening. Moderate atherosclerotic calcifications including the coronary arteries and mitral valve region. LUNGS, PLEURA, LARGE AIRWAYS: Mild emphysematous changes. Subtle pulmonary heterogeneity including uneven subpleural reticular densities and subtle bibasilar mosaic attenuation. Subtle dependent densities in both lung bases as well. Mild thickening along the inferior left main fissure. Smooth 12 mm right infrahilar nodule or vascular shadow image 175/326. Ill-defined 8 mm nodule in the left lower lobe image 215/326. Pleural-based 9 mm nodular opacity in the lateral right costophrenic angle image 231/326. sub 5 mm nodules in the left lower lobe images 189 and 218/326. Trace bilateral pleural effusions/thickening inferiorly. No pneumothorax. The central airways are patent. UPPER ABDOMEN: Partially included common duct stent and pneumobilia. Partially contracted and thick-walled gallbladder. Soft tissue fullness and dots of air in the visualized lower shruthi hepatis/pancreatic head. Stranding in the visualized upper abdominal peritoneal fat. Punctate probable calcified granuloma in the inferior pole of the spleen. Nodular fullness of the left adrenal apex. BONES: Mild osseous heterogeneity. Presumed degenerative endplate spurring in the visualized spine. No definite focal concerning lytic or blastic osseous lesion. IMPRESSION: Mild emphysematous changes and subtle interstitial opacities with small bilateral pleural effusions. Indeterminate bilateral pulmonary nodules measuring up to 9 mm in the right lower lobe. Enlarged lymph node in the precarinal space. Soft tissue fullness, stranding and dots of air in the pancreatic head/shruthi hepatis with common duct stent and pneumobilia noted in the visualized upper abdomen concerning for primary malignancy and probable recent catheter manipulation/procedur e. Clinical correlation recommended. Additional findings as described above. MACRO: None. Signed by: Shara Bonilla 05/26/2023 9:38 AM Dictation workstation: [id number] [facility] Comment on above: Order Comment: CT IS FOR PROCEDURE PLANNING. PLEASE MAKE CUTS 1.0 mm THICKNESS X 0.8mm INTERVALS. CT Chest WO contraston 05-26 Mild emphysematous changes and subtle interstitial opacities with small bilateral pleural effusions. Indeterminate bilateral pulmonary nodules measuring up to 9 mm in the right lower lobe. Enlarged lymph node in the precarinal space. Soft tissue fullness, stranding and dots of air in the pancreatic head/shruthi hepatis with common duct stent and pneumobilia noted in the visualized upper abdomen concerning for primary malignancy and probable recent catheter manipulation/procedur e. Clinical correlation recommended. Additional findings as described above. MACRO: None. Signed by: Shara Bonilla 05/26/2023 9:38 AM Dictation workstation: [id number] MMODAL Interpreted By: Shara Bonilla, STUDY: CT CHEST WITHOUT FOR MARIUSZ BRONC PLANNING; 05/26/2023 7:36 am INDICATION: Signs/Symptoms:Naviga tional Bronchoscopy. COMPARISON: 04/24/2023 from outside institution [facility] ACCESSION NUMBER(S): [id number] ORDERING CLINICIAN: CATIA LYON TECHNIQUE: Helical data acquisition of the chest was obtained without IV contrast material. Images were reformatted in axial, coronal, and sagittal planes. FINDINGS: Hilar, vessel, and solid organ evaluation limited without IV contrast. CHEST WALL AND LOWER NECK: Partially included right anterior chest wall port with catheter extending to the distal SVC. Mild stranding and dots of air adjacent to the port likely related to recent placement/manipulatio n. No significant axillary lymphadenopathy as visualized. Portions of the lateral chest wall excluded from field of imaging. MEDIASTINUM AND BENNIE: Limited hilar assessment on unenhanced exam. 1.4 cm precarinal node. Additional subcentimeter nodes in the anterosuperior mediastinum. HEART AND VESSELS: Lack of IV contrast precludes vascular luminal assessment. The heart is normal in size. Trace pericardial fluid/thickening. Moderate atherosclerotic calcifications including the coronary arteries and mitral valve region. LUNGS, PLEURA, LARGE AIRWAYS: Mild emphysematous changes. Subtle pulmonary heterogeneity including uneven subpleural reticular densities and subtle bibasilar mosaic attenuation. Subtle dependent densities in both lung bases as well. Mild thickening along the inferior left main fissure. Smooth 12 mm right infrahilar nodule or vascular shadow image 175/326. Ill-defined 8 mm nodule in the left lower lobe image 215/326. Pleural-based 9 mm nodular opacity in the lateral right costophrenic angle image 231/326. sub 5 mm nodules in the left lower lobe images 189 and 218/326. Trace bilateral pleural effusions/thickening inferiorly. No pneumothorax. The central airways are patent. UPPER ABDOMEN: Partially included common duct stent and pneumobilia. Partially contracted and thick-walled gallbladder. Soft tissue fullness and dots of air in the visualized lower shruthi hepatis/pancreatic head. Stranding in the visualized upper abdominal peritoneal fat. Punctate probable calcified granuloma in the inferior pole of the spleen. Nodular fullness of the left adrenal apex. BONES: Mild osseous heterogeneity. Presumed degenerative endplate spurring in the visualized spine. No definite focal concerning lytic or blastic osseous lesion. MMODAL Shara Bonilla MD - 05/26/2023 Interpreted By: Shara Bonilla, STUDY: CT CHEST WITHOUT FOR MARIUSZ [facility] PLANNING; 05/26/2023 7:36 am INDICATION: Signs/Symptoms:Naviga tional Bronchoscopy. COMPARISON: 04/24/2023 from outside institution [facility] ACCESSION NUMBER(S): [id number] ORDERING CLINICIAN: CATIA LYON TECHNIQUE: Helical data acquisition of the chest was obtained without IV contrast material. Images were reformatted in axial, coronal, and sagittal planes. FINDINGS: Hilar, vessel, and solid organ evaluation limited without IV contrast. CHEST WALL AND LOWER NECK: Partially included right anterior chest wall port with catheter extending to the distal SVC. Mild stranding and dots of air adjacent to the port likely related to recent placement/manipulatio n. No significant axillary lymphadenopathy as visualized. Portions of the lateral chest wall excluded from field of imaging. MEDIASTINUM AND BENNIE: Limited hilar assessment on unenhanced exam. 1.4 cm precarinal node. Additional subcentimeter nodes in the anterosuperior mediastinum. HEART AND VESSELS: Lack of IV contrast precludes vascular luminal assessment. The heart is normal in size. Trace pericardial fluid/thickening. Moderate atherosclerotic calcifications including the coronary arteries and mitral valve region. LUNGS, PLEURA, LARGE AIRWAYS: Mild emphysematous changes. Subtle pulmonary heterogeneity including uneven subpleural reticular densities and subtle bibasilar mosaic attenuation. Subtle dependent densities in both lung bases as well. Mild thickening along the inferior left main fissure. Smooth 12 mm right infrahilar nodule or vascular shadow image 175/326. Ill-defined 8 mm nodule in the left lower lobe image 215/326. Pleural-based 9 mm nodular opacity in the lateral right costophrenic angle image 231/326. sub 5 mm nodules in the left lower lobe images 189 and 218/326. Trace bilateral pleural effusions/thickening inferiorly. No pneumothorax. The central airways are patent. UPPER ABDOMEN: Partially included common duct stent and pneumobilia. Partially contracted and thick-walled gallbladder. Soft tissue fullness and dots of air in the visualized lower shruthi hepatis/pancreatic head. Stranding in the visualized upper abdominal peritoneal fat. Punctate probable calcified granuloma in the inferior pole of the spleen. Nodular fullness of the left adrenal apex. BONES: Mild osseous heterogeneity. Presumed degenerative endplate spurring in the visualized spine. No definite focal concerning lytic or blastic osseous lesion. IMPRESSION: Mild emphysematous changes and subtle interstitial opacities with small bilateral pleural effusions. Indeterminate bilateral pulmonary nodules measuring up to 9 mm in the right lower lobe. Enlarged lymph node in the precarinal space. Soft tissue fullness, stranding and dots of air in the pancreatic head/shruthi hepatis with common duct stent and pneumobilia noted in the visualized upper abdomen concerning for primary malignancy and probable recent catheter manipulation/procedur e. Clinical correlation recommended. Additional findings as described above. MACRO: None. 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 Non-gynecological cytology method study Pathology report.total SEE COMMENT Non-gynecologic Cytology Case: [id number] Authorizing Provider: Cristo Zheng MD Collected: 05/26/2023 0939 Ordering Location: [facility] Received: 05/26/2023 1516 Center Pathologist: Alyssa Da Silva MD Specimens: A) - BRONCHIAL BRUSH RIGHT LOWER LOBE B) - LUNG FINE NEEDLE ASPIRATION RIGHT LOWER LOBE C) - LYMPH NODE 7 PULMONARY FINE NEEDLE ASPIRATION D) - LYMPH NODE 4 R PULMONARY FINE NEEDLE ASPIRATION E) - LYMPH NODE 11 Ri PULMONARY FINE NEEDLE ASPIRATION Path report.final diagnosis SEE COMMENT A. 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 B. 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 Note: The cells are positive for AE1/AE3 (focal), chromogranin, synaptophysin, INSM1 (focal) and TTF-1. Please refer to [id number]. C. LYMPH NODE 7 PULMONARY FINE NEEDLE ASPIRATION No malignant cells identified Scant lymphocytes present. D. LYMPH NODE 4 R PULMONARY FINE NEEDLE ASPIRATION No malignant cells identified Lymphoid E. LYMPH NODE 11 Ri PULMONARY FINE NEEDLE ASPIRATION No malignant cells identified Numerous lymphocytes observed Laboratory comment SEE COMMENT Slide(s) initially screened by LEO Fitzpatrick at [facility] [address] [facility] [phone] By the signature on this report, the individual or group listed as making the Final Interpretation/Diagno sis certifies that they have reviewed this case. Pathology report.intraoperative observation SEE COMMENT A. BRONCHIAL BRUSH RIGHT LOWER LOBE. Brushing Immediate Read Result: Pass 1: Clusters of Atypical cells. Pathologist: Dr. Brent Carrington Date:05/26/2023 11:03 AM Evaluation performed at: [facility] Department of Pathology [address] [place], [place] [phone] B. LUNG FINE NEEDLE ASPIRATION RIGHT LOWER LOBE. Rapid On-site Evaluation Read Result: Pass 1: Blood only. Pathologist: Dr. Brent Carrington Called Date/Time: 05/26/2023 11:03 AM Evaluation performed at: [facility] Department of Pathology [address] [place] [address] C. LYMPH NODE 7 PULMONARY FINE NEEDLE ASPIRATION. Rapid On-site Evaluation Read Result: Pass 1: Scant Lymphocytes present. Pathologist: Dr. Brent Carrington Called Date/Time: 05/26/2023 11:03 AM Evaluation performed at: [facility] Department of Pathology [address] [place] [phone] D. LYMPH NODE 4 R PULMONARY FINE NEEDLE ASPIRATION. Rapid On-site Evaluation Read Result: Pass 1: Lymphoid. NMCI. Pathologist: Dr. Brent Carrington Called Date/Time: 05/26/2023 11:03 AM Evaluation performed at: [facility] Department of Pathology [address] [place] [phone] E. LYMPH NODE 11 Ri PULMONARY FINE NEEDLE ASPIRATION. Rapid On-site Evaluation Read Result: Pass 1: Nondiagnostic specimen. Pathologist: Dr. Brent Carrington Called Date/Time: 05/26/2023 11:03 AM Evaluation performed at: [facility] Department of Pathology [address] [place] [phone] Path report.gross observation SEE COMMENT A. BRONCHIAL BRUSH RIGHT LOWER LOBE. Received 1 direct smear (1 air-dried Diff-Quik) and 1 brush(s) in 30 ml pink hazy in Cytolyt with particles. B. LUNG FINE NEEDLE ASPIRATION RIGHT LOWER LOBE. Received 4 direct smears (2 air-dried Diff-Quik and 2 spray-fixed) and 35 ml red cloudy needle rinse in Cytolyt with particles. C. LYMPH NODE 7 PULMONARY FINE NEEDLE ASPIRATION. Received 2 direct smears (1 air-dried Diff-Quik and 1 spray-fixed) and 30 ml red cloudy needle rinse in Cytolyt with particles. D. LYMPH NODE 4 R PULMONARY FINE NEEDLE ASPIRATION. Received 2 direct smears (1 air-dried Diff-Quik and 1 spray-fixed) and 30 ml red cloudy needle rinse in Cytolyt with particles. E. LYMPH NODE 11 Ri PULMONARY FINE NEEDLE ASPIRATION. Received 4 direct smears (2 air-dried Diff-Quik and 2 spray-fixed) and 30 ml red cloudy needle rinse in Cytolyt with particles. Laboratory comment SEE COMMENT D5Rhdgly Only (No Block) A1-1Diff Quik Stain Smear NGYN A1-2Pap Stain NGYN ThinPrep A2Cell Block A2-1H&E J4Boeigv Only (No Block) B1-1Diff Quik Stain Smear NGYN B1-2Pap Stain Smear NGYN B1-3Diff Quik Stain Smear NGYN B1-4Pap Stain Smear NGYN B2Cell (more content not included)... [facility] Surgical pathology studyon 0 05-26-2023 Surgical pathology study Pathology report.total SEE COMMENT Surgical Pathology Case: [id number] Authorizing Provider: Cristo Zheng MD Collected: 05/26/2023 1012 Ordering Location: [facility] Received: 05/26/2023 1657 Center Pathologist: Deon Rogers MD Specimen: TRANSBRONCHIAL BIOPSY, TBBX (RLL Nodule) Path report.final diagnosis SEE COMMENT A. LUNG, RIGHT LOWER LOBE; TRANSBRONCHIAL BIOPSY: -- Carcinoid tumor. See comment Laboratory comment By the signature on this report, the individual or group listed as making the Final Interpretation/Diagno sis certifies that they have reviewed this case. Path report.comments No necrosis or mitotic activity is seen in this sample. The tumor cells are positive for CK AE1/AE3 (focal), INSM1, synaptophysin, chromogranin, and TTF1, while they are negative for p40 immunostain.Rb immunostain shows retained nuclear expression and Ki67 proliferative index is 2%. If this sample is education courses sales representative of the entire tumor, these findings would be consistent with typical carcinoid. However, final distinction between typical and atypical carcinoid tumor requires a resection specimen. Path report.gross observation SEE COMMENT A: Received in formalin, labeled with the patient???s name and hospital number, are multiple minute pink-white, soft tissue fragments aggregating to 0.5 x 0.4 x 0.2 cm. The specimen is submitted in toto in one cassette. [facility] AP ASR DISCLAIMER One or more of the reagents used to perform assays on this specimen MAY have contained components considered to be analyte specific reagents (ASR's). ASR's have not been cleared or approved by the U.S. Food and Drug Administration. These assays were developed and their performance characteristics determined by the Department of Pathology at [facility]. The FDA does not require this test to go through premarket FDA review. This test is used for clinical purposes. It should not be regarded as investigational or for research. This laboratory is certified under the Clinical Laboratory Improvement Amendments (CLIA) as qualified to perform high complexity clinical laboratory testing. The assays were performed with appropriate positive and negative controls which stained appropriately. Normal [facility] XR CHEST 1 VIEWon 05-26-2023 XR CHEST 1 VIEW Interpreted By: Nolan Garber, STUDY: XR CHEST 1 VIEW; 05/26/2023 11:54 am INDICATION: Signs/Symptoms:s/p bronchoscopy, obtain in endo suite recovery. COMPARISON: CT 05/26/2023. ACCESSION NUMBER(S): [id number] ORDERING CLINICIAN: ALYSSA PADGETT FINDINGS: Heart size is near upper limits of normal or slightly enlarged. Central pulmonary vasculature is prominent. Thoracic aorta is slightly tortuous and partly calcified. Hazy opacity overlying the right lung base is suspicious for atelectasis, consolidation, or edema. There may also be at least a small right basilar pleural effusion. There is no pneumothorax. Osseous structures are grossly intact. Chemotherapy infusion port is noted on the right; its tip probably lies within the middle or lower superior vena cava. IMPRESSION: 1. Borderline or mild cardiomegaly and central pulmonary vascular congestion. Aortic atherosclerosis. 2. Possible developing atelectasis, infiltrate, or edema and pleural fluid at the right lung base. 3. Right chemotherapy infusion port. MACRO: None Signed by: Nolan Garber 05/26/2023 1:22 PM Dictation workstation: [id number] [facility] XR Chest Single viewon 05-26 1. Borderline or mil d cardiomegaly and central pulmonary vascular congestion. Aortic atherosclerosis. 2. Possible developing atelectasis, infiltrate, or edema and pleural fluid at the right lung base. 3. Right chemotherapy infusion port. MACRO: None Signed by: Nolan Garber 05/26/2023 1:22 PM Dictation workstation: [id number] [facility] Interpreted By: Nolan Garber, STUDY: XR CHEST 1 VIEW; 05/26/2023 11:54 am INDICATION: Signs/Symptoms:s/p bronchoscopy, obtain in endo suite recovery. COMPARISON: CT 05/26/2023. ACCESSION NUMBER(S): [id number] ORDERING CLINICIAN: ALYSSA PADGETT FINDINGS: Heart size is near upper limits of normal or slightly enlarged. Central pulmonary vasculature is prominent. Thoracic aorta is slightly tortuous and partly calcified. Hazy opacity overlying the right lung base is suspicious for atelectasis, consolidation, or edema. There may also be at least a small right basilar pleural effusion. There is no pneumothorax. Osseous structures are grossly intact. Chemotherapy infusion port is noted on the right; its tip probably lies within the middle or lower superior vena cava. [facility] MMODAL Nolan Garber MD - 05/26/2023 Interpreted By: Nolan Garber, STUDY: XR CHEST 1 VIEW; 05/26/2023 11:54 am INDICATION: Signs/Symptoms:s/p bronchoscopy, obtain in endo suite recovery. COMPARISON: CT 05/26/2023. ACCESSION NUMBER(S): [id number] ORDERING CLINICIAN: ALYSSA PADGETT FINDINGS: Heart size is near upper limits of normal or slightly enlarged. Central pulmonary vasculature is prominent. Thoracic aorta is slightly tortuous and partly calcified. Hazy opacity overlying the right lung base is suspicious for atelectasis, consolidation, or edema. There may also be at least a small right basilar pleural effusion. There is no pneumothorax. Osseous structures are grossly intact. Chemotherapy infusion port is noted on the right; its tip probably lies within the middle or lower superior vena cava. IMPRESSION: 1. Borderline or mild cardiomegaly and central pulmonary vascular congestion. Aortic atherosclerosis. 2. Possible developing atelectasis, infiltrate, or edema and pleural fluid at the right lung base. 3. Right chemotherapy infusion port. MACRO: None Signed by: Nolan Garber 05/26/2023 1:22 PM Dictation workstation: [id number] [facility] Work Phone: Radiology Study observation (narrative) [facility] Work Phone: XR Chest Single viewOrdered By: Nolan Garber on 05-26-2023 [facility] Work Phone: Operative Reporton Operative Report [id number]#1 .00TIFF Normal [facility] RAD - MISCon 05-25-2023 RAD - MISC [id number] 2 [id number]#1 .00TIFF Normal [facility] RAD - MISC [id number] 2 [id number]#1 .00TIFF Normal [facility] Consent for Procedure/Surger yon 05-24-2023 Consent for Procedure/Surgery [id number]#1 .00TIFF Normal [facility] Lab Reportson 05-24-2023 Lab Reports [id number]#1 .00TIFF Normal [facility] Ambulatory Visit Summaryon 0 05-23-2023 Ambulatory Visit Summary Normal [facility] General Surgery Office/Clini c Noteon 05-23-2023 General Surgery Office/Clinic Note Normal [facility] Comment on above: Result Comment: Elec tronically Signed By: VIOLETTA MISTRY, Reid Tsai\Date and Time Signed: 05/23/23 14:38 EST Insurance Correspondenceon 0 05-23-2023 Insurance Correspondence [id number]# 1.00TIFF [facility] Insurance Correspondence [id number]# 1.00TIFF Normal [facility] Lab Reportson 05-23-2023 Lab Reports [id number]#1 .00TIFF Normal [facility] Lab Reports [id number] 2 [id number]#1 .00TIFF Normal [facility] Lab Reports [id number]#1 .00TIFF [facility] Population Healthon 05-23-19 Population Health [facility] Insurance Correspondenceon 0 05-22-2023 Insurance Correspondence [id number]#1 .00TIFF [facility] Insurance Correspondence [id number]# 1.00TIFF [facility] Cardiovascular Reporton 05-04 Cardiovascular Report [id number]# 1.00TIFF [facility] Consent for Treatmenton 05-04 Consent for Treatment [id number] 402 [id number]#1 .00TIFF [facility] ED Pat Eduon 05-18-2023 ED Pat Edu [facility] ED Pat Edu [facility] ED Pat Edu [facility] ONC - Otheron 05-18-2023 ONC - Other [id number]#1 .00TIFF [facility] ONC - Other [facility] ONC - Other [id number] 2 [id number] #1.00TIFF [facility] Oncology Progress Noteon Oncology Progress Note [facility] Patient History Officeon Patient History Office [id number]# 1.00TIFF Normal [facility] Patient History Office [id number]# 1.00TIFF Normal [facility] Physician Orderon 05-18-2023 Physician Order [id number] #1.00TIFF Normal [facility] Laboratory Outside Office Co pyon 05-17-2023 Laboratory Outside Office Copy [id number]#1 .00TIFF Normal [facility] Reference Lab Reporton 05-17 Reference Lab Report [id number]# 1.00TIFF Normal [facility] Reference Lab Report [id number]# 1.00TIFF Normal [facility] Consent for Procedure/Surger yon 05-16-2023 Consent for Procedure/Surgery [id number]# 1.00TIFF Normal [facility] Consent for Treatmenton 05-04 Consent for Treatment [id number] 402 [id number]#1 .00TIFF Normal [facility] Discharge Instructionson Discharge Instructions [id number]# 1.00TIFF [facility] Operative Reporton Operative Report Normal [facility] Comment on above: Result Comment: Elec tronically Signed By: Felix Andrew MD\.br\Date and Time Signed: 05/16/23 12:55 EST Population Healthon 05-16-19 24 Population Health [facility] Progress Note-Physicianon Progress Note-Physician [facility] Comment on above: Result Comment: Elec tronically Signed By: Felix Andrew MD\.br\Date and Time Signed: 02/13/24 12:42 EST Consent for Treatmenton 05-04 Consent for Treatment [id number] 402 [id number]#1 .00TIFF [facility] Inpatient Clinical Summaryon 05-15-2023 Inpatient Clinical Summary Normal [facility] Inpatient Patient Summaryon 05-15-2023 Inpatient Patient Summary [facility] Pathology Noteon 05-15-2023 Pathology Note [id number] 2 [id number]#1 .00TIFF [facility] Patient Education - Texton 0 05-15-2023 Patient Education - Text [facility] Outside Oncologyon Outside Oncology [id number] 2 [id number]#1 .00TIFF [facility] NM PET w/ CT Scan Skull Base to Midthighon 05-11-2023 NM PET w/ CT Scan Skull Base to Midthigh [facility] RAD - MISCon 05-11-2023 RAD - MISC [id number] 4 [id number]#1 .00TIFF [facility] RAD - MISC [id number] 4 [id number]#1 .00TIFF [facility] Consent for Treatmenton Consent for Treatment [id number] 402 [id number]#1 .00TIFF [facility] Physician Orderon 05-10-2023 Physician Order [id number]#1 .00TIFF [facility] Physician Orderon 05-09-2023 Physician Order [id number]#1 .00TIFF [facility] Population Healthon 05-09-19 Population Health [facility] CBC panel Auto (Bld)on 05-08 Erythrocyte distribution width (RBC) [Ratio] 18.6 % High 11.5-14.5 [facility] Comment on above: Performed By: #### 5 8410-2 #### SEKOU ORDONEZ ([id number]) [facility] ([facility]) [address] [place] [address] Hematocrit (Bld) [Volume fraction] 29.4 % Low 36.0-46.0 [facility] Comment on above: Performed By: #### 5 8410-2 #### SEKOU ORDONEZ ([id number]) [facility] ([facility]) [address] [place] [address] Hemoglobin (Bld) [Mass/Vol] 8.6 g/dL Low 12.0-16.0 [facility] Comment on above: Performed By: #### 5 8410-2 #### SEKOU ORDONEZ ([id number]) [facility] ([facility]) [address] [place] [address] MCH (RBC) [Entitic mass] 25.8 pg Low 26.0-34.0 [facility] Comment on above: Performed By: #### 5 8410-2 #### SEKOU ORDONEZ ([id number]) [facility] ([facility]) [address] [place] [address] 33395 MCHC (RBC) [Mass/Vol] 29.3 g/dL Low 32.0-36.0 [facility] Comment on above: Performed By: #### 5 8410-2 #### SEKOU ORDONEZ ([id number]) [facility] ([facility]) [address] [place] [address] MCV (RBC) [Entitic vol] 88 fL Normal 80-100 [facility] Comment on above: Performed By: #### 5 8410-2 #### SEKOU ORDONEZ ([id number]) [facility] ([facility]) [address] [place] [address] Nucleated RBC/100 WBC (Bld) [Ratio] 0.0 /100 WBCs Normal 0.0-0.0 [facility] Comment on above: Performed By: #### 5 8410-2 #### SEKOU YOLANDA LUNDBERG MABEL ([id number]) [facility] ([facility]) [address] [place] [address] Platelets (Bld) [#/Vol] 385 x10*3/uL Normal 150-450 [facility] Comment on above: Performed By: #### 5 8410-2 #### SEKOU YOLANDA LUNDBERG MABEL ([id number]) [facility] ([facility]) [address] [place] [address] 19865 RBC (Bld) [#/Vol] 3.33 x10*6/uL Low 4.00-5.20 [facility] Comment on above: Performed By: #### 5 8410-2 #### SEKOU YOLANDA LUNDBERG MABEL ([id number]) [facility] ([facility]) [address] [place] [address]155 WBC (Bld) [#/Vol] 11.9 x10*3/uL High 4.4-11.3 [facility] Comment on above: Performed By: #### 5 8410-2 #### SEKOU YOLANDA MONROE ([id number]) [facility] ([facility]) [address] [place] [address] 10426 Cancer Ag 19-9on 05-08-2023 Cancer Ag 19-9 Qn 3150.37 [arb'U]/mL High <35.00 [facility] Comment on above: Order Comment: CA 19 -9 testing is performed by chemiluminescent immunoassay using the Siemens [employer]. Values obtained with different analytic methods cannot [...] By: #### 2 4108-3 #### FUENTES Velázquez ([id number]) [facility] ([facility]) [address] [place] [id number] Comprehensive metabolic 2000 panelon 05-08-2023 Albumin BCP dye [Mass/Vol] 3.2 g/dL Low 3.4-5.0 [facility] Comment on above: Performed By: #### 2 4323-8 #### SEKOU ORDONEZ ([id number]) [facility] ([facility]) [address] [place] [address] 44069 ALP [Catalytic activity/Vol] 190 U/L High 33-136 [facility] Comment on above: Performed By: #### 2 4323-8 #### SEKOU ORDONEZ ([id number]) [facility] ([facility]) [address] [place] [address] 95338 ALT With P-5'-P [Catalytic activity/Vol] 17 U/L Normal 7-45 [facility] Comment on above: Result Comment: Olivia ents treated with Sulfasalazine may generate falsely decreased results for ALT. Performed By: #### 2 4323-8 #### SEKOU ORDONEZ ([id number]) [facility] ([facility]) [address] [place] [address] 10023 Anion gap [Moles/Vol] 15 mmol/L Normal 10-20 [facility] Comment on above: Performed By: #### 2 4323-8 #### SEKOU ORDONEZ ([id number]) [facility] ([facility]) [address] [place] [address] 96622 AST With P-5'-P [Catalytic activity/Vol] 14 U/L Normal 9-39 [facility] Comment on above: Performed By: #### 2 4323-8 #### SEKOU ORDONEZ ([id number]) [facility] ([facility]) [address] [place] [address] 26408 Bilirubin [Mass/Vol] 1.3 mg/dL High 0.0-1.2 [facility] Comment on above: Performed By: #### 2 4323-8 #### BRYCEIBLUIZ DEIRDRE MABEL ([id number]) [facility] ([facility]) [address] [place] [address] 69476 Calcium [Mass/Vol] 8.4 mg/dL Low 8.6-10.[address] [facility] Comment on above: Performed By: #### 2 4323-8 #### BRYCEIBLUIZ DEIRDRE MABEL ([id number]) [facility] ([facility]) [address] [place] [address] 68416 Chloride [Moles/Vol] 102 mmol/L Normal 98-107 [facility] Comment on above: Performed By: #### 2 4323-8 #### BRYCEIBELILAW GUERRERODERIDRE MABEL ([id number]) [facility] ([facility]) [address] [place] [address] 58401 CO2 [Moles/Vol] 25 mmol/L Normal 21-32 [facility] Comment on above: Performed By: #### 2 4323-8 #### BRYCEIBLUIZ DEIRDRE MABEL ([id number]) [facility] ([facility]) [address] [place] [address] 70229 Creatinine [Mass/Vol] 0.76 mg/dL Normal 0.50-1.05 [facility] Comment on above: Performed By: #### 2 4323-8 #### BRYCEIBLUIZ DEIRDRE MABEL ([id number]) [facility] ([facility]) [address] [place] [address] 22355 Glomerular filtration rate/1.73 sq M.predicted 88 mL/min/1.73m*2 Normal >60 [facility] Comment on above: Result Comment: Calc ulations of estimated GFR are performed using the 2020 CKD-EPI Study Refit equation without the race variable for the IDMS-Traceable creatinine methods. https://jasn.asnjournals.org/content/early//ASN.756507 9701 Performed By: #### 2 4323-8 #### BRYCEIBELILAW DEIRDRE MABEL ([id number]) [facility] ([facility]) [address] [place] [address] 30522 Glucose [Mass/Vol] 115 mg/dL High 74-[address] [facility] Comment on above: Performed By: #### 2 4323-8 #### SEKOU ORDONEZ ([id number]) [facility] ([facility]) [address] [place] [address] 24761 Potassium [Moles/Vol] 4.4 mmol/L Normal 3.5-5.3 [facility] Comment on above: Performed By: #### 2 4323-8 #### SEKOU ORDONEZ ([id number]) [facility] ([facility]) [address] [place] [address] 33301 Protein [Mass/Vol] 6.1 g/dL Low 6.4-8.[address] [facility] Comment on above: Performed By: #### 2 4323-8 #### SEKOU ORDONEZ ([id number]) [facility] ([facility]) [address] [place] [address] 32881 Sodium [Moles/Vol] 138 mmol/L Normal 136-[address] [facility] Comment on above: Performed By: #### 2 4323-8 #### SEKOU ORDONEZ ([id number]) [facility] ([facility]) [address] [place] [address] 42119 Urea nitrogen [Mass/Vol] 14 mg/dL Normal 6-23 [facility] Comment on above: Performed By: #### 2 4323-8 #### SEKOU ORDONEZ ([id number]) [facility] ([facility]) [address] [place] [address] 66341 HbA1c (Bld) [Mass fraction]o n 05-08-2023 Average glucose Estimated from glycated hemoglobin (Bld) [Mass/Vol] 163 mg/dL Normal Not Established [facility] Comment on above: Order Comment: Diagn osis of Diabetes-Adults Non-Diabetic: < or = 5.6% Increased risk for developing diabetes: 5.7-6.4% Diagnostic of diabetes: > or = 6.5% Monitoring of Diabetes Age (y)....................... Therapeutic Goal (%) Adults: >18.........................<7.0 Pediatrics: 13-18...................<7.5 Pediatrics: 7-12....................<8.0 Pediatrics: 0-6..................... 7.5-8.5 Citizen Of [place] Diabetes Association. Diabetes Care 33(S1), Apr 2009 Performed By: #### 4 548-4 #### FUENTES Velázquez ([id number]) [facility] ([facility]) [address] [place] [address] Heart and Vascular Office/Cl inic Noteon 05-08-2023 Heart and Vascular Office/Clinic Note Normal [facility] Comment on above: Result Comment: Elec tronically Signed By: Rik MISTRY, Felix Vann\.br\Date and Time Signed: 05/08/23 10:11 EST\.br\Electronically Co-Signed By: Salo Mclean\.br\Date and Time Co-Signed: 05/05/23 15:28 EST Hemoglobin A1c/Hemoglobin.to cami 05-08-2023 HbA1c (Bld) [Mass fraction] 7.3 % High see below [facility] Comment on above: Order Comment: Diagn osis of Diabetes-Adults Non-Diabetic: < or = 5.6% Increased risk for developing diabetes: 5.7-6.4% Diagnostic of diabetes: > or = 6.5% Monitoring of Diabetes Age (y)....................... Therapeutic Goal (%) Adults: >18.........................<7.0 Pediatrics: 13-18...................<7.5 Pediatrics: 7-12....................<8.0 Pediatrics: 0-6..................... 7.5-8.5 Citizen Of [place] Diabetes Association. Diabetes Care 33(S1), Apr 2009 Performed By: #### 4 548-4 #### FUENTES Velázquez ([id number]) [facility] ([facility]) [address] [id number] Outside Radiologyon 05-08-19 24 Outside Radiology [id number]#1 .00TIFF Normal [facility] PT and aPTT panel Coag (PPP) on 05-08-2023 aPTT Coag (PPP) [Time] 30 s Normal 27-38 [facility] Comment on above: Order Comment: The A PTT is no longer used for monitoring Unfractionated Heparin Therapy. For monitoring Heparin Therapy, use the Heparin Assay. Performed By: #### 3 4529-8 #### SEKOU ORDONEZ ([id number]) [facility] ([facility]) [address] [place] [address] INR Coag (PPP) [Relative time] 1.0 Normal 0.9-1.1 [facility] Comment on above: Order Comment: The A PTT is no longer used for monitoring Unfractionated Heparin Therapy. For monitoring Heparin Therapy, use the Heparin Assay. Performed By: #### 3 4529-8 #### SEKOU ORDONEZ ([id number]) [facility] ([facility]) [address] [place] [address] PT Coag (PPP) [Time] 11.7 s Normal 9.8-12.8 [facility] Comment on above: Order Comment: The A PTT is no longer used for monitoring Unfractionated Heparin Therapy. For monitoring Heparin Therapy, use the Heparin Assay. Performed By: #### 3 4529-8 #### SEKOU ORDONEZ ([id number]) [facility] ([facility]) [address] [place] [address] Physician Orderon 05-08-2023 Physician Order [id number]# 1.00TIFF Normal [facility] RAD - MISCon 05-08-2023 RAD - MISC [id number]# 1.00TIFF Normal [facility] Stress EKG Tracingson 2023 Stress EKG Tracings [id number]#1 .00TIFF Normal [facility] CA 19-9on 05-05-2023 Cancer Ag 19-9 Qn 1332 unit/mL High 0-35 Fishe r [facility] Comment on above: Result Comment: Resu lts confirmed ondilution.[facility] [employer] Electrochemiluminescence Immunoassay (ECLIA)Values obtained with different assay methods or kits cannot beused interchangeably. Results cannot be interpreted as absoluteevidence of the presence or absence of malignant disease.Performed at: [id number] [place], [place] [id number] PhD Pavel Vasquez Performed By: #### 2 973304, 0613739, 5292549, 4337272, 2778508, 8552194, 88422056, 7098783, 52782216, 3052971, 61652195, 9816931, 68317350 ####[facility] [address] [place] [address] Erythropoiet Lvlon Erythropoietin (EPO) Qn 307.2 mIU/mL High 2.6-18.5 [facility] Comment on above: Result Comment: Kriyari DxI 800 Immunoassay SystemValues obtained with different assay methods or kits cannot be usedinterchangeably. Results cannot be interpreted as absolute evidenceof the presence or absence of malignant disease.Performed at: [id number] [place], [place] [id number] PhD Pavel Vasquez Performed By: #### 2 148206, 4882339, 7964193, 6023021, 1715725, 5952315, 42482722, 0146837, 33199379, 1933718, 52285336, 5685544, 00176302 ####[facility] [address] [place] [address] NM Myocardial Spect Rest/Str ess 1 Dayon 4 NM Myocardial Spect Rest/Stress 1 Day Normal [facility] CBC w/ Auto Diffon 4 Basophil Absolute 0.1 E9/L Normal 0.0-0.2 [facility] Comment on above: Performed By: #### 2 064493, 7101881, 7646563, 9919355, 9112184, 6541427, 05911843, 8957165, 31822325, 2363369, 91988027, 3103046, 48143205 ####[facility] [address] [place] [address] Basophils/100 WBC (Bld) 1.0 % Normal 0.0-2.0 [facility] Comment on above: Performed By: #### 2 723438, 8889005, 1748521, 8417450, 3967166, 1729608, 14548598, 3716490, 89282343, 5551373, 74666525, 3152361, 79336100 ####[facility] [address] [place] [address] Eos Absolute 0.3 E9/L Normal 0.0-0.5 [facility] Comment on above: Performed By: #### 2 664955, 0008441, 1739684, 8850290, 8380006, 2628632, 70535897, 5245120, 68806827, 9694044, 66982555, 0206626, 61036661 ####[facility] [address] [place] [address] Eosinophils/100 WBC (Bld) 3.3 % Normal 0.0-8.0 [facility] Comment on above: Performed By: #### 2 958835, 5199159, 5973791, 9256853, 4659788, 5030285, 96476477, 4807854, 12958087, 3516473, 50506494, 8482452, 56909434 ####[facility] [address] [place] [address] Erythrocyte distribution width (RBC) [Ratio] 19.6 % High 10.9-14.2 [facility] Comment on above: Performed By: #### 2 333527, 1174223, 4829318, 6750725, 6118421, 8570717, 82715262, 1592262, 72366525, 8647550, 03505942, 4976137, 25392241 ####[address] [place] [address] Hematocrit (Bld) [Volume fraction] 26.0 % Low 34.0-46.0 [facility] Comment on above: Performed By: #### 2 026231, 9288557, 2966329, 1816342, 6793464, 2377975, 25867564, 6660689, 42234518, 0426293, 46565150, 2588886, 92642268 ####[address] [place] [address] Hemoglobin (Bld) [Mass/Vol] 8.2 g/dL Low 12.0-16.0 [facility] Comment on above: Performed By: #### 2 717610, 6239580, 8464105, 3313060, 1235003, 9418437, 12052139, 5285249, 88096595, 9606293, 42526013, 7859581, 71865071 ####[address] [place] [address] Lymph Absolute 2.2 E9/L Normal 1.0-4.0 [facility] Comment on above: Performed By: #### 2 092151, 3920946, 7172697, 4871615, 3306872, 3304419, 88528457, 3554061, 52116384, 0298975, 33633016, 5745720, 06859583 ####[address] [place] [address] Lymphocytes/100 WBC (Bld) 21.3 % Normal 14.0-50.0 [facility] Comment on above: Performed By: #### 2 852240, 5267461, 2440290, 5354142, 2190999, 8526470, 23585623, 8033063, 55939031, 3757120, 63579839, 2134595, 58302420 ####[facility] [address] [place] [address] MCH (RBC) [Entitic mass] 26.8 pg Low 27.0-34.0 [facility] Comment on above: Performed By: #### 2 282147, 8870474, 2441318, 9556952, 8543590, 7256799, 72628659, 6860889, 71325618, 5023010, 39063004, 8773150, 42190576 ####[facility] [address] [place] [address] MCHC (RBC) [Mass/Vol] 31.7 g/dL Normal 31.4-36.0 [facility] Comment on above: Performed By: #### 2 250354, 0126670, 4896247, 1223099, 3184571, 2366803, 04008247, 3668710, 18574539, 8438477, 98903744, 1207750, 06371603 ####[facility] [address] [place] [address] MCV (RBC) [Entitic vol] 84.7 fL Normal 80.0-100.0 [facility] Comment on above: Performed By: #### 2 904115, 8586870, 1046223, 1550228, 5073971, 9765465, 05481206, 6344259, 50948048, 9866101, 44720166, 7300088, 00667118 ####[facility] [address] [place] [address] [place] Absolute 0.6 E9/L Normal 0.2-1.0 [facility] Comment on above: Performed By: #### 2 744492, 3448214, 8228519, 9117428, 2633391, 1771108, 26912190, 6142593, 01639576, 7710298, 93351955, 0442111, 09144223 ####[facility] [address] [place] [address] Monocytes/100 WBC (Bld) 5.9 % Normal 4.0-14.0 [facility] Comment on above: Performed By: #### 2 830645, 5887608, 6982745, 7307706, 1724340, 5509347, 69283893, 2815933, 15036370, 9728865, 21276259, 8781928, 01957677 ####[address] [address] Neutro Absolute 7.0 E9/L Normal 2.0-7.5 [facility] Comment on above: Performed By: #### 2 907241, 6289435, 8340252, 7840519, 8383108, 0358183, 06318256, 6345274, 14709272, 2715295, 94286338, 8397602, 96694163 ####[address] [address] Neutro Auto 68.5 % Normal 36.0-75.0 [facility] Comment on above: Performed By: #### 2 561988, 2105063, 2816427, 4612731, 0338795, 2736732, 52281831, 7792126, 05571814, 0133061, 09387647, 8772505, 76412348 ####[address] [place] [address] Platelet 305.0 E9/L Normal 150.0-500.0 [facility] Comment on above: Performed By: #### 2 208683, 2676413, 1650080, 7116177, 3397027, 2554004, 67760944, 0118800, 28558547, 9188511, 78521286, 2436489, 54034228 ####[address] [address] Platelet mean volume (Bld) [Entitic vol] 9.0 fL Normal 6.4-10.8 [facility] Comment on above: Performed By: #### 2 855811, 2813202, 3001487, 1148285, 2239171, 5385090, 86273535, 0384032, 79377963, 1012053, 47115898, 2888618, 18282503 ####[facility] [address] [place] [address] RBC 3.0 E12/L Low 4.3-5.9 [facility] Comment on above: Performed By: #### 2 865774, 7739677, 8099615, 1017068, 1747615, 4910852, 72213651, 9569341, 31395492, 6173707, 96565759, 9179519, 19725802 ####[address] [place] [address] WBC 10.2 E9/L Normal 4.0-11.0 [facility] Comment on above: Performed By: #### 2 599068, 1488023, 0764676, 4552828, 2279794, 9682686, 00530671, 1935819, 10871122, 8177279, 94900160, 0504885, 11480443 ####[facility] [address] [place] [address] CEAon 05-04-2023 CEA 11.3 ng/mL Invalid Interpretation Code [facility] Comment on above: Result Comment: 'NON -SMOKER < 2.5''SMOKER < 5.0'The concentration of CEA in a given specimen determined by different manufacturers can vary due to differences in assay methods and reagent specificity. Values obtained with different assay methods cannot be used interchangeably. The methodology used to perform this test was chemiluminescence using [employer]'s Access CEA reagent. Performed By: #### 2 768408, 2615578, 0374060, 3209006, 3683200, 7913429, 18548227, 4782987, 56967778, 9254829, 34822159, 6577952, 27693358 ####[facility] [address] [place] [address] CHEMISTRYOrdered By: SYSTEM SYSTEM on 05-04-2023 Albumin [Mass/Vol] 3.1 g/dL Low 3.3 - 5.0 gm/dL R emisol Chem Albumin/Globulin [Mass ratio] 1.0 {ratio} Low [...] mg/dL High 0.0 - 1.1 mg/dL Remisol C hem Calcium [Mass/Vol] 8.4 mg/dL Low 8.9 - [...] perform this test was chemiluminescence using [employer] Access CEA reagent. Chloride [Moles/Vol] 105 mmol/L Normal 101 - 1 11 mmol/L Remisol Chem CO2 [Moles/Vol] 27 mmol/L Normal 21 - 31 mmol/L Remis ol Chem Cobalamin (Vitamin B12) [Mass/Vol] 409 pg/mL Normal 50 - 1500 pg/mL Remisol Chem Creatinine [Mass/Vol] 0.8 mg/dL Normal 0.5 - 1.3 mg/d L Remisol Chem eGFR 82 mL/min/1.73 m2 Normal >=59mL/min /1.73 m2 Remisol Chem Ferritin Lvl 36 ng/mL Normal 11 - 307 ng/mL Remisol Chem Folate Lvl 9.9 ng/mL Normal >=6.7ng/mL Remisol Chem Globulin (S) [Mass/Vol] 3.0 g/dL Normal 1.4 - 4.0 gm/dL Remisol Chem Glucose [Mass/Vol] 212 mg/dL High 55 - 199 mg/dL Re misol Chem Iron [Mass/Vol] 26 ug/dL Low 35 - 153 mcg/dL Maxx kaley Chem Iron Sat 8 % Low 20 - 50 % Remisol Chem Potassium [Moles/Vol] 4.1 mmol/L Normal 3.5 - 5.3 mmol/L Remisol Chem Protein [Mass/Vol] 6.1 g/dL Normal 6.0 - 7.8 gm/dL R emisol Chem Sodium [Moles/Vol] 140 mmol/L Normal 135 [...] 05-04-2023 Albumin [Mass/Vol] 3.1 g/dL Low 3.3-5.0 [facility] Comment on above: Performed By: #### 2 524609, 8005273, 6227217, 8112010, 1190321, 9391661, 79741425, 8496114, 79477308, 0579214, 71197367, 8903830, 36267325 ####[facility] [address] [place] [address] Albumin/Globulin [Mass ratio] 1.0 {ratio} Low 1.1-2.2 [facility] Comment on above: Performed By: #### 2 538143, 2879973, 7560909, 1615104, 4830360, 5353407, 09170975, 1515633, 78336970, 6841516, 49348327, 8432567, 94220205 ####[facility] [address] [place] [address] Alk Phos 251 Int._Unit/L High 21-98 [facility] Comment on above: Performed By: #### 2 049383, 2908770, 4083089, 9723603, 7712722, 1578959, 85341045, 3626013, 94581451, 8843946, 20115392, 2428332, 96698996 ####[facility] [address] [place] [address] ALT 23 Int._Unit/L Normal 6-46 [facility] Comment on above: Performed By: #### 2 898091, 9971946, 3071294, 3883392, 8239738, 0169162, 62319670, 9100511, 97355508, 6008955, 33374100, 2885699, 46852489 ####[address] [place] [address] Anion gap [Moles/Vol] 12 mmol/L Normal 6-16 [facility] Comment on above: Performed By: #### 2 817832, 2598614, 1032414, 6618553, 5516728, 1207456, 13475556, 1057823, 36656160, 8962430, 85777830, 5781003, 30193171 ####[address] [place] [address] AST 13 Int._Unit/L Normal 5-43 [facility] Comment on above: Performed By: #### 2 589843, 0456079, 3933266, 9720799, 4444597, 0557454, 97375745, 5845878, 28827136, 5835586, 31681521, 6446306, 86304555 ####[facility] [address] [place] [address] Bili Total 1.4 mg/dL High 0.0-1.1 [facility] Comment on above: Performed By: #### 2 584583, 3712544, 1879171, 6191009, 3264315, 5041010, 98982144, 9251152, 17472673, 4493851, 23595596, 2743517, 27011057 ####[address] [place] [address] BUN/Creat Ratio 22 No Units High 10-20 [facility] Comment on above: Performed By: #### 2 424540, 3824360, 4063117, 1242430, 8959564, 7305877, 29293575, 5850371, 92749799, 9904915, 58901403, 9842184, 05203758 ####[facility] [address] [place] [address] Calcium [Mass/Vol] 8.4 mg/dL Low 8.9-11.1 [facility] Comment on above: Performed By: #### 2 459384, 1707422, 9387060, 7751780, 8177878, 3196451, 27816343, 0234251, 23683141, 0485631, 44570878, 2400571, 14261084 ####[facility] [address] [place] [address] Chloride [Moles/Vol] 105 mmol/L Normal 101-111 [facility] Comment on above: Performed By: #### 2 266894, 6101976, 5711558, 5466006, 4295881, 9339909, 29684708, 9454221, 98197073, 1993583, 71429316, 1281733, 01334337 ####[facility] [address] [place] [address] CO2 [Moles/Vol] 27 mmol/L Normal 21-31 [facility] Comment on above: Performed By: #### 2 909042, 0775321, 5427799, 8536185, 0325811, 1661992, 11698632, 2377572, 67310168, 2109205, 06976127, 8651602, 90169179 ####[facility] [address] [place] [address] Creatinine [Mass/Vol] 0.8 mg/dL Normal 0.5-1.3 [facility] Comment on above: Performed By: #### 2 754146, 2310970, 4213280, 5912146, 2180977, 6819566, 80846005, 7705201, 23071294, 5709121, 91467387, 5991999, 46592361 ####[facility] [address] [place] [address] Globulin (S) [Mass/Vol] 3.0 g/dL Normal 1.4-4.0 [facility] Comment on above: Performed By: #### 2 012221, 4992351, 5959608, 1519765, 5886002, 6604525, 98622764, 6009475, 64552752, 5055436, 27709381, 9043171, 31408807 ####[facility] [address] [place] [address] Glucose [Mass/Vol] 212 mg/dL High 55-199 [facility] Comment on above: Performed By: #### 2 144313, 1150519, 8781196, 2961845, 5160430, 3169871, 61312817, 0791901, 17286328, 6855688, 54558417, 6098123, 93390468 ####[facility] [address] [place] [address] Potassium [Moles/Vol] 4.1 mmol/L Normal 3.5-5.3 [facility] Comment on above: Performed By: #### 2 131945, 9929760, 2428190, 0325368, 7611796, 6750385, 20988377, 5008751, 68862525, 4798702, 13840902, 1083523, 51121052 ####[facility] [address] [place] [address] Protein [Mass/Vol] 6.1 g/dL Normal 6.0-7.8 [facility] Comment on above: Performed By: #### 2 765365, 7800729, 8143242, 9301592, 5893490, 4341460, 08322150, 0020168, 50602540, 2208117, 16170317, 9904296, 60559427 ####[facility] [address] [place] [address] Sodium [Moles/Vol] 140 mmol/L Normal 135-145 [facility] Comment on above: Performed By: #### 2 027342, 8874642, 4774018, 8051428, 9353338, 4371172, 49858093, 0502256, 46694826, 7887340, 82019705, 3119924, 45572917 ####[facility] [address] [place] [address] Urea nitrogen [Mass/Vol] 18 mg/dL Normal 5-21 [facility] Comment on above: Performed By: #### 2 598273, 0880754, 1104943, 7680544, 4194546, 3243543, 65998387, 4804487, 94370768, 1961195, 72151352, 6871277, 48053632 ####[facility] [address] [place] [address] Consenton 05-04-2023 Consent [id number]# 1.00TIFF Normal [facility] Consent for Treatmenton 02-0 Consent for Treatment [id number]# 1.00TIFF Normal [facility] Consent for Treatment [id number]#1 .00TIFF Normal [facility] Consent for Treatment [id number]#1 .00TIFF Normal [facility] Ferritinon 05-04-2023 Ferritin Lvl 36 ng/mL Normal 11-307 [facility] Comment on above: Performed By: #### 2 278912, 1599678, 7243850, 0258329, 6638118, 7659330, 41162415, 7109592, 77621863, 9878903, 35153919, 1806056, 51144569 ####[facility] [address] [place] [address] Folateon 05-04-2023 Folate Lvl 9.9 ng/mL Normal >=6.7 [facility] Comment on above: Performed By: #### 2 520562, 2108386, 2828064, 5803875, 8781997, 6127535, 66059212, 3253658, 07056522, 8580457, 01280000, 1355503, 59460940 ####[facility] [address] [place] [address] HEMATOLOGYOrdered By: SYSTEM SYSTEM on 05-04-2023 Basophil Absolute 0.1 E9/L Normal 0.0 - 0.2 E9/L Rem isol Heme Basophils/100 WBC (Bld) 1.0 % Normal [...] 2.2 E9/L Normal 1.0 - 4.0 E9/L Remiso l Heme Lymphocytes/100 WBC (Bld) 21.3 % Normal 14.0 - 50.0 % Remisol Heme MCH (RBC) [Entitic mass] 26.8 pg Low 27.0 - 34.0 pg Remisol Heme MCHC (RBC) [Mass/Vol] 31.7 g/dL Normal 31.4 - 36.0 gm/dL Remisol Heme MCV (RBC) [Entitic vol] 84.7 fL Normal 80.0 - 100.0 fL Remisol Heme [place] Absolute 0.6 E9/L Normal 0.2 - 1.0 E9/L Remisol Heme Monocytes/100 WBC (Bld) 5.9 % Normal 4.0 - 14.0 % Remisol Heme Neutro Absolute 7.0 E9/L Normal 2.0 - 7.5 E9/L Remis ol Heme Neutro Auto 68.5 % Normal 36.0 - 75.0 % Remisol He me Platelet 305.0 E9/L Normal 150.0 - 500.0 E9/L Remisol Heme Platelet mean volume (Bld) [Entitic vol] 9.0 fL Normal 6.4 - 10.8 fL Remisol Heme RBC 3.0 E12/L Low 4.3 - 5.9 E12/L Remisol H penny WBC 10.2 E9/L Normal 4.0 - 11.0 E9/L Remisol H penny HEMATOLOGYOrdered By: Placido francis Ramírez on 05-04-2023 ESR (Bld) [Velocity] 87 mm/h High 0 - 34 mm/hr FT HemeAutoSS Ironon 05-04-2023 Iron 26 microgram/dL Low 35-153 [facility] Comment on above: Performed By: #### 2 726370, 7997458, 4620150, 3339321, 1934089, 9003640, 77242223, 4327699, 26336667, 3103846, 79430853, 3038116, 64275704 ####[facility] [address] [place] [address] Iron Saturationon 05-04-2023 Iron Sat 8 % Low 20-50 [facility] Comment on above: Performed By: #### 2 671625, 6284470, 7089318, 3048882, 9034462, 6707601, 91338309, 2444567, 25606800, 2520856, 92272264, 0809250, 69461016 ####[facility] [address] [place] [address] TIBC 333 microgram/dL Normal 250-400 [facility] Comment on above: Performed By: #### 2 924804, 6483506, 1210771, 9153921, 5486083, 5201727, 77876287, 3178322, 51686763, 2441042, 37319874, 0031568, 39878238 ####[facility] [address] [place] [address] ONC - Otheron 05-04-2023 ONC - Other [id number] 0 [id number]# 1.00TIFF Normal [facility] Oncology Noteon 05-04-2023 Oncology Note Normal [facility] Comment on above: Result Comment: Elec tronically Signed By: Abhijeet MACKENZIE, Teri Carter\Date and Time Signed: 05/04/23 16:58 EST Oncology Progress Noteon Oncology Progress Note Normal [facility] Physician Orderon 05-04-2023 Physician Order [id number]#1 .00TIFF Normal [facility] Physician Order [id number]#1 .00TIFF Normal [facility] Sed Rate Automatedon 024 ESR (Bld) [Velocity] 87 mm/h High 0-34 [facility] Comment on above: Performed By: #### 2 350087, 5482955, 4297458, 7431122, 8344536, 6471322, 80737263, 3687010, 00697220, 1206249, 75766835, 7275047, 28717312 ####[facility] [address] [place] [address] Transferrinon 05-04-2023 Transferrin [Mass/Vol] 238 mg/dL Normal 200-370 [facility] Comment on above: Performed By: #### 2 150776, 1716011, 3803158, 9168395, 4662391, 5537056, 66263666, 9473610, 71187613, 2720724, 01601921, 0672474, 02043697 ####[facility] [id number] [place] [address] Vit B12on 05-04-2023 Cobalamin (Vitamin B12) [Mass/Vol] 409 pg/mL Normal 50-1500 [facility] Comment on above: Performed By: #### 2 [id number], [id number], [id number], 8629406, 0328224, 6347987, 14325149, 3637755, 02923832, 0271865, [id number], 4237194, [id number] ####[facility] [id number] [place] [address] eGFRon 05-04-2023 eGFR 82 mL/min/1.73 m2 Normal >=59 [facility] Comment on above: Order Comment: Order added by Discern Expert. Performed By: #### 2 [id number], [id number], 2873537, 1125291, 2703769, 2475315, [id number], [id number], [id number], [id number], [id number], [id number], [id number] ####[facility] [address] [place] [address] ED Note-Physicianon 05-03-19 ED Note-Physician [id number]#1 .00TIFF Normal [facility] Family Medicine Office/Clini c Noteon 05-03-2023 Family Medicine Office/Clinic Note Normal [facility] Comment on above: Result Comment: Elec tronically Signed By: Lázaro Riddle MD\.br\Date and Time Signed: 05/03/23 15:31 EST\.br\Electronically Co-Signed By: Mima Davis\.br\Date and Time Co-Signed: 05/02/23 14:56 EST Outside Hospital Correspo ndenceon 05-03-2023 Outside [facility] Correspondence [id number]#1 .00TIFF Normal [facility] Outside Hospital Correspondence [id number]#1 .00TIFF Normal [facility] Auth for Release of Medical Recordson 05-02-2023 Auth for Release of Medical Records [id number]#1 .00TIFF Normal [facility] Outside Labson 05-02-2023 Outside Labs [id number]# 1.00TIFF Normal [facility] Outside Pathology Reporton 0 05-02-2023 Outside Pathology Report [id number]# 1.00TIFF [facility] Provider Letteron 05-02-2023 Provider Letter [facility] Comment on above: Other Comment: this does not belong in this chart wrong patient Auth for Release of Medical Recordson 05-01-2023 Auth for Release of Medical Records [id number]#1 .00TIFF [facility] Population Healthon 05-01-19 Population Health [facility] Comp Metabolic Profon 2023 Albumin [Mass/Vol] 3.0 g/dL Low 3.5-5.2 [facility] Comment on above: Performed By: #### L IP, CP #### [facility] [address] [place] [address] Luggage Liner: Juan Joe MD Alkaline Phos 617 U/L High 35-104 [facility] Comment on above: Performed By: #### L IP, CP #### [facility] [address] [place] [address] Luggage Liner: Juan Joe MD ALT [Catalytic activity/Vol] 71 U/L High 5-33 [facility] Comment on above: Performed By: #### L IP, CP #### [facility] [address] [place] [address] Luggage Liner: Juan Joe MD Anion gap [Moles/Vol] 10 mmol/L Normal 9-17 [facility] Comment on above: Performed By: #### L IP, CP #### [facility] [address] [place] [address] Luggage Liner: Juan Joe MD AST [Catalytic activity/Vol] 69 U/L High <32 [facility] Comment on above: Performed By: #### L IP, CP #### [facility] [address] [place] [address] Luggage Liner: Juan Joe MD Bilirubin [Mass/Vol] 1.9 mg/dL High 0.3-1.2 [facility] Comment on above: Performed By: #### L IP, CP #### [facility] [place] [address] Luggage Liner: Juan Joe MD BUN/CRE Ratio 36 High 9-20 [facility] Comment on above: Performed By: #### L IP, CP #### [facility] [address] [place], [place] [address]ia [facility] [place] [address] Luggage Liner: Juan Joe MD Calcium [Mass/Vol] 7.7 mg/dL Low 8.6-10.4 [facility] Comment on above: Performed By: #### L IP, CP #### [facility] [address] [place], [place] [address]ia [facility] [place] [address] Luggage Liner: Juan Joe MD Chloride [Moles/Vol] 105 mmol/L Normal 98-107 [facility] Comment on above: Performed By: #### L IP, CP #### [facility] [address] [place] [address]. [place] [address] Luggage Liner: Juan Joe MD CO2 [Moles/Vol] 21 mmol/L Normal 20-31 [facility] Comment on above: Performed By: #### L IP, CP #### [facility] [address] [place], [place] [address] [place] [address] Luggage Liner: Juan Joe MD Creatinine [Mass/Vol] 0.7 mg/dL Normal 0.5-0.9 [facility] Comment on above: Performed By: #### L IP, CP #### [facility] [address] [facility] [place] [address] Luggage Liner: Juan Joe MD GFR/1.73 sq M.predicted among non-blacks MDRD (S/P/Bld) [Vol rate/Area] mL/min/{1.73_m2} Normal >60 [facility] Comment on above: Result Comment: These [...] Performed By: #### L IP, CP #### [facility] [place] [address] Luggage Liner: Juan Joe MD Glucose [Mass/Vol] 391 mg/dL High 70-99 [facility] Comment on above: Performed By: #### L IP, CP #### [facility] [address] [place] [address]. [place] [address] Luggage Liner: Juan Joe MD Potassium [Moles/Vol] 4.5 mmol/L Normal 3.7-5.3 [facility] Comment on above: Performed By: #### L IP, CP #### [facility] [address] [place] [address]. [place] [address] Luggage Liner: Juan Joe MD Protein [Mass/Vol] 6.1 g/dL Low 6.4-8.3 [facility] Comment on above: Performed By: #### L IP, CP #### [facility] [address] [place] [address]. [place] [address] Luggage Liner: Juan Joe MD Sodium [Moles/Vol] 136 mmol/L Normal 135-144 [facility] Comment on above: Performed By: #### L IP, CP #### [facility] [address] [place] [address] Luggage Liner: Juan Joe MD Urea nitrogen [Mass/Vol] 25 mg/dL High 8-23 [facility] Comment on above: Performed By: #### L IP, CP #### [facility] [address] [facility] [place], [place] [id number] Luggage Liner: Juan Joe MD Comprehensive Metabolic Pane [facility] 04-28-2023 Albumin [Mass/Vol] 3.0 g/dL Low 3.5 - 5.2 g/dL [facility] ALP [Catalytic activity/Vol] 617 U/L High 35 - 104 U/L [facility] ALT [Catalytic activity/Vol] 71 U/L High 5 - 33 U/L [facility] Anion gap [Moles/Vol] 10 mmol/L 9 - 17 mmol/L [facility] AST [Catalytic activity/Vol] 69 U/L High NINF - 32 U/L [facility] Bilirubin [Mass/Vol] 1.9 mg/dL High 0.3 - 1.2 mg/dL [facility] Calcium [Mass/Vol] 7.7 mg/dL Low 8.6 - 10. 4 mg/dL [facility] Chloride [Moles/Vol] 105 mmol/L 98 - 107 mmol/L [facility] CO2 [Moles/Vol] 21 mmol/L 20 - 31 mmol/L [facility] Creatinine [Mass/Vol] 0.7 mg/dL 0.5 - 0.9 mg/d L [facility] GFR/1.73 sq M.predicted MDRD (S/P/Bld) [Vol rate/Area] - PINF [facility] Comment on above: These results are not [...] 391 mg/dL High 70 - 99 mg/dL [facility] Interpretation and review of laboratory results Abnormal [facility] Potassium [Moles/Vol] 4.5 mmol/L 3.7 - 5.3 mmol/L [facility] Protein [Mass/Vol] 6.1 g/dL Low 6.4 - 8.3 g/dL [facility] Sodium [Moles/Vol] 136 mmol/L 135 - 144 mmol/L [facility] Urea nitrogen [Mass/Vol] 25 mg/dL High 8 - 23 mg/dL [facility] Urea nitrogen/Creatinine [Mass ratio] 36 mg/mg High 9 - 20 [facility] Hemoglobin and Hematocriton 04-28-2023 Hematocrit (Bld) [Volume fraction] 26.8 % Low 36.3 - 47.1 % [facility] Hemoglobin (Bld) [Mass/Vol] 8.3 g/dL Low 11.9 - 15.1 g/dL [facility] Interpretation and review of laboratory results Abnormal [facility] Hematocrit (Bld) [Volume fraction] 24.4 % Low 36.3 - 47.1 % [facility] Hemoglobin (Bld) [Mass/Vol] 7.7 g/dL Low 11.9 - 15.1 g/dL [facility] Interpretation and review of laboratory results Abnormal [facility] Hgb/Hcton 04-28-2023 Hematocrit (Bld) [Volume fraction] 26.8 % Low 36.3-47.1 [facility] Comment on above: Performed By: #### L IVP, LIP, BMPX, HH #### [facility] [address] [place] [address] Luggage Liner: Juan Joe MD Hemoglobin (Bld) [Mass/Vol] 8.3 g/dL Low 11.9-15.1 [facility] Comment on above: Performed By: #### L IVP, LIP, BMPX, HH #### [facility] [address] [place] [address] Luggage Liner: Juan Joe MD Hematocrit (Bld) [Volume fraction] 24.4 % Low 36.3-47.1 [facility] Comment on above: Performed By: #### L IVP, LIP, BMPX, HH #### [facility] [address] [place] [address] Luggage Liner: Juan Joe MD Hemoglobin (Bld) [Mass/Vol] 7.7 g/dL Low 11.9-15.1 [facility] Comment on above: Performed By: #### L IVP, LIP, BMPX, HH #### [facility] [address] [place] [address] Luggage Liner: Juan Joe MD Lipaseon 04-28-2023 Lipase [Catalytic activity/Vol] 1382 U/L High 13-60 [facility] Comment on above: Performed By: #### L IP, #### [facility] [address] [place] [address] Luggage Liner: Juan Joe MD Interpretation and review of laboratory results Abnormal [facility] Lipase [Catalytic activity/Vol] 1382 U/L High 13 - 60 U/L [facility] No Panel Informationon 04-28 Component Leukocyte Reduced Re d Cell [facility] Crossmatch Result COMPATIBLE [facility] Dispense Status Blood Bank TRANSFUSED [facility] Transfusion Status OK TO TRANSFUSE B ON [facility] Unit Divison 0 [facility] POC Glucose Fingerstickon Glucose [Mass/Vol] 315 mg/dL High 65 - 105 mg/dL [facility] Interpretation and review of laboratory results Abnormal [facility] Glucose [Mass/Vol] 365 mg/dL High 65 - 105 mg/dL [facility] Interpretation and review of laboratory results Abnormal [facility] SURGICAL PATHOLOGY REPORTon 04-28-2023 Surgical Pathology Report Path Number: [id number] -- Diagnosis -- A. DUODENUM, BIOPSY: -SMALL [...] ENDOSCOPIC ULTRASOUND WITH PATHOLOGY; ERCP ENDOSCOPIC RETROGRADE CHOLANGIOPANCREATOGRA [facility] Source of Specimen A: DUODENAL BX B: GASTRIC BIOPSY C: IRREGULAR Z LINE BIOPSY Gross Description A. VENANCIO GREEN, DUODENAL BIOPSY Received in formalin are two gilbert-white tissue fragments from 0.2 to 0.3 cm and are 0.5 x 0.2 x 0.1 cm in aggregate. Entirely 1cs. B. VENANCIO GREEN, GASTRIC BIOPSY Received in formalin are two gilbert-white tissue fragments from 0.2 to 0.5 cm and are 0.7 x 0.2 x 0.1 cm in aggregate. Entirely 1cs. C. VENANCIO GREEN, IRREGULAR Z-LINE BIOPSY Received in formalin is one gilbert-white tissue fragment, 0.5 x 0.2 x 0.2 cm. Entirely 1cs. jj tm Nan Arnold M.D./mj:04/26/2023 Microscopic Description A-C. Microscopic examination performed. H. pylori immunostain performed because no organisms apparent on H&E. C. Pancytokeratin immunostain was performed and reveals no infiltrating malignant epithelial cells. Control reacts as expected. Processing Lab: [address] [address] Interpretation Performed at [address] [address] SURGICAL PATHOLOGY CONSULTATION Patient Name: VENANCIO NELSON [facility] Rec: [id number] [facility] ANATOMIC PATHOLOGY [address] [facility] [place], [place] [id number] [facility] TYPE AND SCREENon 04-28-2023 ABO/Rh Positive [facility] Arm Band Number [id number] [facility] Blood Bank Sample Expiration 04/29/2023,2359 [facility] Blood product unit ID (Dose) [#] [id number] [facility] Blood product unit ID (Dose) [#] [id number] [facility] B12/Folate Panelon Cobalamin (Vitamin B12) [Mass/Vol] 966 pg/mL Normal 232-1245 [facility] Comment on above: Performed By: #### L IVP, LIP, BMPX, #### [facility] [address] [place], [place] [id number] Luggage Liner: Juan Joe MD Folic Acid 6.0 ng/mL Normal >4.8 [facility] Comment on above: Performed By: #### L IVP, LIP, BMPX, #### [facility] [address] [place], [place] [id number] Luggage Liner: Juan Joe MD Basic Metab w/rfx MGon 04-27 Anion gap [Moles/Vol] 13 mmol/L Normal 9-17 [facility] Comment on above: Performed By: #### L IVP, LIP, BMPX, HH #### [facility] [address] [place] [address] Luggage Liner: Juan Joe MD BUN/CRE Ratio 43 High 9-20 [facility] Comment on above: Performed By: #### L IVP, LIP, BMPX, #### [facility] [address] [place] [address] Luggage Liner: Juan Joe MD Calcium [Mass/Vol] 7.7 mg/dL Low 8.6-10.4 [facility] Comment on above: Performed By: #### L IVP, LIP, BMPX, #### [facility] [place] [address] Luggage Liner: Juan Joe MD Chloride [Moles/Vol] 101 mmol/L Normal 98-107 [facility] Comment on above: Performed By: #### L IVP, LIP, BMPX, HH #### [facility] [address] [place] [address] Luggage Liner: Juan Joe MD CO2 [Moles/Vol] 17 mmol/L Low 20-31 [facility] Comment on above: Performed By: #### L IVP, LIP, BMPX, #### [facility] [place] [address] Luggage Liner: Juan Joe MD Creatinine [Mass/Vol] 0.9 mg/dL Normal 0.5-0.9 [facility] Comment on above: Result Comment: ICTE DMITRIY SPECIMEN Performed By: #### L IVP, LIP, BMPX, HH #### [facility] [address] [place] [address] Luggage Liner: Juan Joe MD GFR/1.73 sq M.predicted among non-blacks MDRD (S/P/Bld) [Vol rate/Area] mL/min/{1.73_m2} Normal >60 [facility] Comment on above: Result Comment: These [...] #### L IVP, LIP, BMPX, HH #### [facility] [address] [place] [address] Luggage Liner: Juan Joe MD Glucose [Mass/Vol] 352 mg/dL High 70-99 [facility] Comment on above: Performed By: #### L IVP, LIP, BMPX, HH #### [facility] [address] [facility] [place] [address] Luggage Liner: Juan Joe MD Potassium [Moles/Vol] 4.8 mmol/L Normal 3.7-5.3 [facility] Comment on above: Performed By: #### L IVP, LIP, BMPX, HH #### [facility] [address] [facility] [place] [address] Luggage Liner: Juan Joe MD Sodium [Moles/Vol] 131 mmol/L Low 135-144 [facility] Comment on above: Performed By: #### L IVP, LIP, BMPX, HH #### [facility] [address] [facility] [place] [address] Luggage Liner: Juan Joe MD Urea nitrogen [Mass/Vol] 39 mg/dL High 8-23 [facility] Comment on above: Performed By: #### L IVP, LIP, BMPX, HH #### [facility] [address] [place] [address] Luggage Liner: Juan Joe MD Basic Metabolic Panel w/ Ref kristen to MGon 04-27-2023 Anion gap [Moles/Vol] 13 mmol/L 9 - 17 mmol/L [facility] Calcium [Mass/Vol] 7.7 mg/dL Low 8.6 - 10. 4 mg/dL [facility] Chloride [Moles/Vol] 101 mmol/L 98 - 107 mmol/L [facility] CO2 [Moles/Vol] 17 mmol/L Low 20 - 31 mmol/L [facility] Creatinine [Mass/Vol] 0.9 mg/dL 0.5 - 0.9 mg/d L [facility] Comment on above: ICTERIC SPECIMEN GFR/1.73 sq M.predicted MDRD (S/P/Bld) [Vol rate/Area] - PINF [facility] Comment on above: These results are not [...] 352 mg/dL High 70 - 99 mg/dL [facility] Interpretation and review of laboratory results Abnormal [facility] Potassium [Moles/Vol] 4.8 mmol/L 3.7 - 5.3 mmol/L [facility] Sodium [Moles/Vol] 131 mmol/L Low 135 - 144 mmol/L [facility] Urea nitrogen [Mass/Vol] 39 mg/dL High 8 - 23 mg/dL [facility] Urea nitrogen/Creatinine [Mass ratio] 43 mg/mg High 9 - 20 [facility] CA 19-9on 04-27-2023 CA 19-9 1114 U/mL High 0-35 [facility] Comment on above: Result Comment: The Tiffany ECLIA assay is used. Results obtained with different assay methods cannot be used interchangeably. Performed By: #### L IVP, LIP, BMPX, HH #### [facility] [address] [place] [address] Luggage Liner: Juan Joe MD CBC with Auto Differentialon 04-27-2023 Basophils (Bld) [#/Vol] 0.03 10*3/uL [facility] Basophils/100 WBC (Bld) 0 % 0 - 2 % [facility] Eosinophils (Bld) [#/Vol] 0.12 10*3/uL [facility] Eosinophils/100 WBC (Bld) 1 % 1 - 4 % [facility] Erythrocyte distribution width (RBC) [Ratio] 19.7 % High 11.8 - 14.4 % [facility] Hematocrit (Bld) [Volume fraction] 23.4 % Low 36.3 - 47.1 % [facility] Hemoglobin (Bld) [Mass/Vol] 7.6 g/dL Low 11.9 - 15.1 g/dL [facility] Immature granulocytes (Bld) [#/Vol] 0.33 10*3/uL High [facility] Immature granulocytes/100 WBC (Bld) 3 % High 0 [facility] Interpretation and review of laboratory results Abnormal [facility] Lymphocytes/100 WBC (Bld) 16 % Low 24 - 43 % [facility] Lymphocytes/100 WBC (Bld) 2.11 % [facility] MCH (RBC) [Entitic mass] 27.3 pg 25.2 - 33.5 pg [facility] MCHC (RBC) [Mass/Vol] 32.5 g/dL 28.4 - 34.8 g/dL [facility] MCV (RBC) [Entitic vol] 84.2 fL 82.6 - 102.9 fL [facility] Monocytes/100 WBC (Bld) 4 % 3 - 12 % [facility] Monocytes/100 WBC (Bld) 0.48 % [facility] Neutrophils/100 WBC (Bld) 77 % High 36 - 65 % [facility] Nucleated RBC/100 WBC (Bld) [Ratio] 1.1 % High 0.0 per 100 WBC [facility] Platelet mean volume (Bld) [Entitic vol] 11.1 fL 8.1 - 13.5 fL [facility] Platelets (Bld) [#/Vol] 245 10*3/uL [facility] RBC (Bld) [#/Vol] 2.78 10*6/uL Low 3.95 - 5.1 1 m/uL [facility] RBC (Bld) [#/Vol] ANISOCYTOSIS PRESENT [facility] Segmented neutrophils/100 WBC (Bld) 10.22 % High [facility] WBC other (Bld) [#/Vol] 13.3 High [facility] CBC with Diffon 04-27-2023 Abs. Basophil 0.03 k/uL Normal 0.00-0.20 [facility] Comment on above: Performed By: #### N [employer] #### [place] [address] Luggage Liner: Mu Roberson MD Abs.Imm.Granulocyte 0.33 k/uL High 0.00-0.30 [facility] Comment on above: Performed By: #### N [employer] #### [place] [address] Luggage Liner: Mu Roberson MD Abs.Neutrophil (Seg) 10.22 k/uL High 1.50-8.10 [facility] Comment on above: Performed By: #### N [employer]ICE [employer]ARM[employer] #### [place] [id number] Luggage Liner: Mu Roberson MD Basophils/100 WBC (Bld) 0 % Normal 0-2 [facility] Comment on above: Performed By: #### N [employer] #### [place] [address] Luggage Liner: Mu Roberson MD Eosinophils (Bld) [#/Vol] 0.12 10*3/uL Normal 0.00-0.44 [facility] Comment on above: Performed By: #### N [employer] #### [address] [address] Luggage Liner: Mu Roberson MD Eosinophils/100 WBC (Bld) 1 % Normal 1-4 [facility] Comment on above: Performed By: #### N [employer] #### [address] [address] Luggage Liner: Mu Roberson MD Erythrocyte distribution width (RBC) [Ratio] 19.7 % High 11.8-14.4 [facility] Comment on above: Performed By: #### N [employer] #### [address] [address] Luggage Liner: Mu Roberson MD Hematocrit (Bld) [Volume fraction] 23.4 % Low 36.3-47.1 [facility] Comment on above: Performed By: #### N [employer] #### [address] [address] Luggage Liner: Mu Roberson MD Hemoglobin (Bld) [Mass/Vol] 7.6 g/dL Low 11.9-15.1 [facility] Comment on above: Performed By: #### N [employer] #### [address] [address] Luggage Liner: Mu Roberson MD Immature granulocytes/100 WBC (Bld) 3 % High 0 [facility] Comment on above: Performed By: #### N [employer] #### [address] [address] Luggage Liner: Mu Roberson MD Lymphocytes (Bld) [#/Vol] 2.11 10*3/uL Normal 1.10-3.70 [facility] Comment on above: Performed By: #### N [employer] #### [address] [address] Luggage Liner: Mu Roberson MD Lymphocytes/100 WBC (Bld) 16 % Low 24-43 [facility] Comment on above: Performed By: #### N [employer] #### [address] [address] Luggage Liner: Mu Roberson MD MCH (RBC) [Entitic mass] 27.3 pg Normal 25.2-33.5 [facility] Comment on above: Performed By: #### N [employer] #### [address] [address] Luggage Liner: Mu Roberson MD MCHC (RBC) [Mass/Vol] 32.5 g/dL Normal 28.4-34.8 [facility] Comment on above: Performed By: #### N [employer] #### [address] [address] Luggage Liner: Mu Roberson MD MCV (RBC) [Entitic vol] 84.2 fL Normal 82.6-102.9 [facility] Comment on above: Performed By: #### N [employer] #### [address] [address] Luggage Liner: Mu Roberson MD Monocytes (Bld) [#/Vol] 0.48 10*3/uL Normal 0.10-1.20 [facility] Comment on above: Performed By: #### N [employer] #### [address] [address] Luggage Liner: Mu Roberson MD Monocytes/100 WBC (Bld) 4 % Normal 3-12 [facility] Comment on above: Performed By: #### N [employer] #### [address] [address] Luggage Liner: Mu Roberson MD Neutrophil (Seg) 77 % High 36-65 [facility] Comment on above: Performed By: #### N [employer] #### [address] [place] [address] Luggage Liner: Mu Roberson MD NRBC Automated 1.1 per 100 WBC High 0.0 [facility] Comment on above: Performed By: #### N [employer] #### [address] [address] Luggage Liner: Mu Roberson MD Platelet mean volume (Bld) [Entitic vol] 11.1 fL Normal 8.1-13.5 [facility] Comment on above: Performed By: #### N [employer] #### [address] [address] Luggage Liner: Mu Roberson MD Platelets (Bld) [#/Vol] 245 10*3/uL Normal 138-453 [facility] Comment on above: Performed By: #### N [employer] #### [address] [address] Luggage Liner: Mu Roberson MD RBC (Bld) [#/Vol] 2.78 10*6/uL Low 3.95-5.11 [facility] Comment on above: Performed By: #### N [employer] #### [address] [address] Luggage Liner: Mu Roberson MD RBC morphology finding Nom (Bld) ANISOCYTOSIS PRESENT Normal [facility] Comment on above: Performed By: #### N [employer] #### [address] [address] Luggage Liner: Mu Roberson MD WBC (Bld) [#/Vol] 13.3 10*3/uL High 3.5-11.3 [facility] Comment on above: Performed By: #### [facility] #### [address] [address] Luggage Liner: Mu Roberson MD Cancer Antigen 19-9on 2023 Cancer Ag 19-9 IA Qn 1114 U/mL High 0 - 35 U/mL [facility] Comment on above: The Tiffany ECLIA as say is used. Results obtained with different assay methods cannot be used interchangeably. Interpretation and review of laboratory results Abnormal [facility] Ferritinon 04-27-2023 Ferritin [Mass/Vol] 173 ng/mL High 13-150 [facility] Comment on above: Performed By: #### L IVP, LIP, BMPX, #### [facility] [address] [place] [address] Luggage Liner: Juan Joe MD Hemoglobin and Hematocriton 04-27-2023 Hematocrit (Bld) [Volume fraction] 26.0 % Low 36.3 - 47.1 % [facility] Hemoglobin (Bld) [Mass/Vol] 8.3 g/dL Low 11.9 - 15.1 g/dL [facility] Interpretation and review of laboratory results Abnormal [facility] Hematocrit (Bld) [Volume fraction] 23.8 % Low 36.3 - 47.1 % [facility] Hemoglobin (Bld) [Mass/Vol] 7.8 g/dL Low 11.9 - 15.1 g/dL [facility] Interpretation and review of laboratory results Abnormal [facility] Hematocrit (Bld) [Volume fraction] 20.0 % Low 36.3 - 47.1 % [facility] Hemoglobin (Bld) [Mass/Vol] 6.5 g/dL Critically low 11.9 - 15.1 g/dL [facility] Interpretation and review of laboratory results Abnormal [facility] Hepatic Function Panelon Albumin [Mass/Vol] 2.8 g/dL Low 3.5 - 5.2 g/dL [facility] ALP [Catalytic activity/Vol] 596 U/L High 35 - 104 U/L [facility] ALT [Catalytic activity/Vol] 59 U/L High 5 - 33 U/L [facility] AST [Catalytic activity/Vol] 79 U/L High NINF - 32 U/L [facility] Bilirubin [Mass/Vol] 2.8 mg/dL High 0.3 - 1.2 mg/dL [facility] Bilirubin.direct [Mass/Vol] 1.9 mg/dL High NINF - 0.3 mg/dL [facility] Bilirubin.indirect [Mass/Vol] 0.9 mg/dL 0.0 - 1.0 mg/dL [facility] Interpretation and review of laboratory results Abnormal [facility] Protein [Mass/Vol] 5.4 g/dL Low 6.4 - 8.3 g/dL [facility] Hgb/Hcton 04-27-2023 Hematocrit (Bld) [Volume fraction] 26.0 % Low 36.3-47.1 [facility] Comment on above: Performed By: #### H H #### [facility] [address] [place] [address] Luggage Liner: Juan Joe MD Hemoglobin (Bld) [Mass/Vol] 8.3 g/dL Low 11.9-15.1 [facility] Comment on above: Performed By: #### H H #### [facility] [address] [place] [address] Luggage Liner: Juan Joe MD Hematocrit (Bld) [Volume fraction] 23.8 % Low 36.3-47.1 [facility] Comment on above: Performed By: #### L IVP, LIP, BMPX, HH #### [facility] [address] [place] [address] Luggage Liner: Juan Joe MD Hemoglobin (Bld) [Mass/Vol] 7.8 g/dL Low 11.9-15.1 [facility] Comment on above: Performed By: #### L IVP, LIP, BMPX, HH #### [facility] [address] [place] [address] Luggage Liner: Juan Joe MD Hematocrit (Bld) [Volume fraction] 20.0 % Low 36.3-47.1 [facility] Comment on above: Performed By: #### H H #### [facility] [place] [address] Luggage Liner: Juan Joe MD Hemoglobin (Bld) [Mass/Vol] 6.5 g/dL Critically low 11.9-15.1 [facility] Comment on above: Performed By: #### H H #### [facility] [address] [place] [address]. [place] [address] Luggage Liner: Juan Joe MD IR ULTRASOUND GUIDANCE VASCU LAR ACCESSon 04-27-2023 IR ULTRASOUND GUIDANCE VASCULAR ACCESS Radiology exam is complete. No Radiologist dictation. Please follow up with ordering provider. Final result Normal [facility] Radiology exam is complete. No Radiologist dictation. Please follow up with ordering provider. [facility] RIS CONSOLIDATED Iron Binding Cap.on 04-27-19 24 % Fe Saturation 90 % High 20-55 [facility] Comment on above: Performed By: #### L IVP, LIP, BMPX, HH #### [facility] [address] [place] [address]. [place] [address] Luggage Liner: Juan Joe MD Iron [Mass/Vol] 252 ug/dL High 37-145 [facility] Comment on above: Performed By: #### L IVP, LIP, BMPX, HH #### [facility] [address] [place] [address]. [place] [address] Luggage Liner: Juan Joe MD Total Fe Binding Cap 281 ug/dL Normal 250-450 [facility] Comment on above: Performed By: #### L IVP, LIP, BMPX, HH #### [facility] [address] [place], [place] [address] Luggage Liner: Juan Joe MD Unbound Fe Bind Cap 29 ug/dL Low 112-347 [facility] Comment on above: Performed By: #### L IVP, LIP, BMPX, HH #### [facility] [address] [place] [address] Luggage Liner: Juan Joe MD Iron and TIBCon 04-27-2023 Interpretation and review of laboratory results Abnormal [facility] Iron [Mass/Vol] 252 ug/dL High 37 - 145 ug/dL [facility] Iron binding capacity [Mass/Vol] 281 ug/dL 250 - 450 ug/dL [facility] Iron saturation [Mass fraction] 90 % High 20 - 55 % [facility] UIBC 29 ug/dL Low 112 - 347 ug/dL [facility] Lipaseon 04-27-2023 Lipase [Catalytic activity/Vol] 1217 U/L High 13-60 [facility] Comment on above: Performed By: #### L IVP, LIP, BMPX, HH #### [facility] [address] [facility] [place], [place] [id number] Luggage Liner: Juan Joe MD Interpretation and review of laboratory results Abnormal [facility] Lipase [Catalytic activity/Vol] 1217 U/L High 13 - 60 U/L [facility] Liver Profileon 04-27-2023 Albumin [Mass/Vol] 2.8 g/dL Low 3.5-5.2 [facility] Comment on above: Performed By: #### L IVP, LIP, BMPX, HH #### [facility] [address] [place], [place] [id number] Luggage Liner: Juan Joe MD Alkaline Phos 596 U/L High 35-104 [facility] Comment on above: Performed By: #### L IVP, LIP, BMPX, HH #### [facility] [address] [place] [address] Luggage Liner: Juan Joe MD ALT [Catalytic activity/Vol] 59 U/L High 5-33 [facility] Comment on above: Performed By: #### L IVP, LIP, BMPX, HH #### [facility] [address] [place] [address] Luggage Liner: Juan Joe MD AST [Catalytic activity/Vol] 79 U/L High <32 [facility] Comment on above: Performed By: #### L IVP, LIP, BMPX, HH #### [facility] [address] [place] [address] Luggage Liner: Juan Joe MD Bilirubin [Mass/Vol] 2.8 mg/dL High 0.3-1.2 [facility] Comment on above: Performed By: #### L IVP, LIP, BMPX, HH #### [facility] [address] [place] [address] Luggage Liner: Juan Joe MD Bilirubin, Indirect 0.9 mg/dL Normal 0.0-1.0 [facility] Comment on above: Performed By: #### L IVP, LIP, BMPX, HH #### [facility] [address] [place] [address] Luggage Liner: Juan Joe MD Bilirubin.indirect [Mass/Vol] 1.9 mg/dL High <0.3 [facility] Comment on above: Performed By: #### L IVP, LIP, BMPX, HH #### [facility] [address] [place] [address] Luggage Liner: Juan Joe MD Protein [Mass/Vol] 5.4 g/dL Low 6.4-8.3 [facility] Comment on above: Performed By: #### L IVP, LIP, BMPX, HH #### [facility] [address] [place] [address] Luggage Liner: Juan Joe MD MR Abdomen WO and [...] nodule. Recommend further evaluation with chest CT. [facility] RIS CONSOLIDATED EXAMINATION: MRI OF THE ABDOMEN [...] peripancreatic stranding in this region. There is mjwz-vh-xqijffdo atrophy of the body and tail without [...] The aorta is normal in caliber with nienxjds-fv-ccmvdk atherosclerosis. The celiac axis and SMA are grossly patent. Portal venous system is patent. No pathologically enlarged adenopathy. No ascites or drainable fluid collection. There is mild wall thickening of the 2nd portion of the duodenum, nonspecific. The visualized bowel is otherwise unremarkable. There is a 6 mm left lower lobe pulmonary nodule. PN RIS CONSOLIDATED Lucila Mosquera MD - 04/27/2023 [...] peripancreatic stranding in this region. There is gcvn-fx-xovqmvjb atrophy of the body and tail without [...] The aorta is normal in caliber with mfycyqct-pl-vhdstw atherosclerosis. The celiac axis and SMA are [...] nodule. Recommend further evaluation with chest CT. [facility] MR Abdomen WO and W contrast IVOrdered By: Lucila Mosquera on 04-27-2023 [facility] Work Phone: MRI ABDOMEN W WO CONTRAST [...] peripancreatic stranding in this region. There is dkwt-kn-gfwbomui atrophy of the body and tail without [...] The aorta is normal in caliber with qnlkmmhm-xo-rckxpz atherosclerosis. The celiac axis and SMA are [...] Lucila Mosquera MD 04/27/23 Final result Normal [facility] POC Glucose Fingerstickon Glucose [Mass/Vol] 421 mg/dL Critically high 65 - 105 mg/ dL [facility] Interpretation and review of laboratory results Abnormal [facility] Glucose [Mass/Vol] 278 mg/dL High 65 - 105 mg/dL [facility] Interpretation and review of laboratory results Abnormal [facility] Glucose [Mass/Vol] 298 mg/dL High 65 - 105 mg/dL [facility] Interpretation and review of laboratory results Abnormal [facility] Path Review, Smearon 024 Pathologist review Pathologist comment (Bld) [Interp] ELECTRONICALLY SIGNED. LITTLE SERRATO M.D. [facility] SURGICAL PATHOLOGY REPORTon 04-27-2023 Surgical Pathology Report [id number] [facility] ANATOMIC PATHOLOGY [address] [place] [address]. [place], [place] [address] SURGICAL PATHOLOGY CONSULTATION Patient Name: VENANCIO NELSON MR#: [id number] Specimen # Procedures/Addenda PERIPHERAL BLOOD REPORT Date [...] the electronic health record for CBC parameters ([id number], 04/26/2023, 09:51). Note: The electronic health record is reviewed. [place] Source: A: Peripheral Blood [facility] Smear to Pathologiston 04-27 Smear to Pathologist ELECTRONICALLY SIGNED. LITTLE SERRATO M.D. [facility] Comment on above: Performed By: #### L IVP, LIP, BMPX, HH #### [facility] [address] [place] [address] Luggage Liner: Juan Joe MD Specimen Rejectionon 024 Reason for rejection Unable to perform testing: Specimen clotted. [facility] Comment on above: Performed By: #### N [facility] #### [facility] [employer] [facility] [place] [address] Luggage Liner: Mu Roberson MD Source of sample .BLOOD [facility] Comment on above: Performed By: #### N [facility] #### [facility] [employer] [address] [place] [address] Luggage Liner: Mu Roberson MD Test ordered [facility] Comment on above: Performed By: #### N [facility] #### [facility] [address] [place] [address] Luggage Liner: uM Roberson MD Reason for rejection Unable to perform testing: Specimen clotted. [facility] Comment on above: Performed By: #### R EJEC #### [facility] [address] [place] [address] Luggage Liner: Juan Joe MD Source of sample .BLOOD [facility] Comment on above: Performed By: #### R EJEC #### [facility] [address] [place] [address] Luggage Liner: Juan Joe MD Test ordered [facility] Comment on above: Performed By: #### R EJEC #### [facility] [address] [place] [address] Luggage Liner: Juan Joe MD Type + Screenon 04-27-2023 Type + Screen Sample Expiration 04/29/2023,2359 Arm Band Number [id number] ABO/Rh(D) B POSITIVE Antibody Screen NEGATIVE Unit Number [id number] Blood Component Type Leukocyte Reduced Red Cell Unit Division 00 Status of Unit TRANSFUSED Transfusion Status OK TO TRANSFUSE Crossmatch Result COMPATIBLE Unit Number [id number] Blood Component Type Leukocyte Reduced Red Cell Unit Division 00 Status of Unit TRANSFUSED Transfusion Status OK TO TRANSFUSE Crossmatch Result COMPATIBLE [facility] Comment on above: Performed By: #### N [facility] #### [facility] [address] [place], [place] [id number] Luggage Liner: Mu Roberson MD Vitamin B12 & Folateon 04-27 Cobalamin (Vitamin B12) [Mass/Vol] 966 pg/mL 232 - 1245 pg/mL [facility] Folate [Mass/Vol] 6.0 ng/mL 4.8 - PINF ng/mL [facility] CBC with Auto Differentialon 04-26-2023 Basophils (Bld) [#/Vol] 0.00 10*3/uL [facility] Basophils/100 WBC (Bld) 0 % 0 - 2 % [facility] Eosinophils (Bld) [#/Vol] 0.00 10*3/uL [facility] Eosinophils/100 WBC (Bld) 0 % Low 1 - 4 % [facility] Erythrocyte distribution width (RBC) [Ratio] 19.9 % High 11.8 - 14.4 % [facility] Hematocrit (Bld) [Volume fraction] 20.2 % Low 36.3 - 47.1 % [facility] Hemoglobin (Bld) [Mass/Vol] 6.2 g/dL Critically low 11.9 - 15.1 g/dL [facility] Immature granulocytes (Bld) [#/Vol] 0.14 10*3/uL [facility] Immature granulocytes/100 WBC (Bld) 1 % High 0 [facility] Interpretation and review of laboratory results Abnormal [facility] Lymphocytes/100 WBC (Bld) 10 % Low 24 - 43 % [facility] Lymphocytes/100 WBC (Bld) 1.40 % [facility] MCH (RBC) [Entitic mass] 27.4 pg 25.2 - 33.5 pg [facility] MCHC (RBC) [Mass/Vol] 30.7 g/dL 28.4 - 34.8 g/dL [facility] MCV (RBC) [Entitic vol] 89.4 fL 82.6 - 102.9 fL [facility] Monocytes/100 WBC (Bld) 2 % Low 3 - 12 % [facility] Monocytes/100 WBC (Bld) 0.28 % [facility] Neutrophils/100 WBC (Bld) 87 % High 36 - 65 % [facility] Nucleated RBC/100 WBC (Bld) [Ratio] 0.3 % High 0.0 per 100 WBC [facility] Platelet mean volume (Bld) [Entitic vol] 11.4 fL 8.1 - 13.5 fL [facility] Platelets (Bld) [#/Vol] 323 10*3/uL [facility] RBC (Bld) [#/Vol] 2.26 10*6/uL Low 3.95 - 5.1 1 m/uL [facility] Segmented neutrophils/100 WBC (Bld) 12.18 % High [facility] WBC other (Bld) [#/Vol] 14.0 High [facility] Basophils (Bld) [#/Vol] 0.00 10*3/uL [facility] Basophils/100 WBC (Bld) 0 % 0 - 2 % [facility] Eosinophils (Bld) [#/Vol] 0.00 10*3/uL [facility] Eosinophils/100 WBC (Bld) 0 % Low 1 - 4 % [facility] Erythrocyte distribution width (RBC) [Ratio] 19.8 % High 11.8 - 14.4 % [facility] Hematocrit (Bld) [Volume fraction] 17.9 % Low 36.3 - 47.1 % [facility] Hemoglobin (Bld) [Mass/Vol] 5.6 g/dL Critically low 11.9 - 15.1 g/dL [facility] Immature granulocytes (Bld) [#/Vol] 0.11 10*3/uL [facility] Immature granulocytes/100 WBC (Bld) 1 % High 0 [facility] Interpretation and review of laboratory results Abnormal [facility] Lymphocytes/100 WBC (Bld) 11 % Low 24 - 43 % [facility] Lymphocytes/100 WBC (Bld) 1.23 % [facility] MCH (RBC) [Entitic mass] 27.6 pg 25.2 - 33.5 pg [facility] MCHC (RBC) [Mass/Vol] 31.3 g/dL 28.4 - 34.8 g/dL [facility] MCV (RBC) [Entitic vol] 88.2 fL 82.6 - 102.9 fL [facility] Monocytes/100 WBC (Bld) 2 % Low 3 - 12 % [facility] Monocytes/100 WBC (Bld) 0.22 % [facility] Neutrophils/100 WBC (Bld) 86 % High 36 - 65 % [facility] Nucleated RBC/100 WBC (Bld) [Ratio] 0.2 % High 0.0 per 100 WBC [facility] Platelet mean volume (Bld) [Entitic vol] 11.3 fL 8.1 - 13.5 fL [facility] Platelets (Bld) [#/Vol] 274 10*3/uL [facility] RBC (Bld) [#/Vol] 2.03 10*6/uL Low 3.95 - 5.1 1 m/uL [facility] Segmented neutrophils/100 WBC (Bld) 9.64 % High [facility] WBC other (Bld) [#/Vol] 11.2 [facility] CBC with Diffon 04-26-2023 Abs. Basophil 0.00 k/uL Normal 0.00-0.20 [facility] Comment on above: Performed By: #### L IVP, LIP, BMPX, #### [facility] [place] [address] Luggage Liner: Juan Joe MD Abs.Imm.Granulocyte 0.14 k/uL Normal 0.00-0.30 [facility] Comment on above: Performed By: #### L IVP, LIP, BMPX, #### [facility] [place] [address] Luggage Liner: Juan Joe MD Abs.Neutrophil (Seg) 12.18 k/uL High 1.50-8.10 [facility] Comment on above: Performed By: #### L IVP, LIP, BMPX, #### [facility] [place] [address] Luggage Liner: Juan Joe MD Basophils/100 WBC (Bld) 0 % Normal 0-2 [facility] Comment on above: Performed By: #### L IVP, LIP, BMPX, HH #### [facility] [address] [place] [address] Luggage Liner: Juan Joe MD Eosinophils (Bld) [#/Vol] 0.00 10*3/uL Normal 0.00-0.44 [facility] Comment on above: Performed By: #### L IVP, LIP, BMPX, HH #### [facility] [address] [place] [address] Luggage Liner: Juan Joe MD Eosinophils/100 WBC (Bld) 0 % Low 1-4 [facility] Comment on above: Performed By: #### L IVP, LIP, BMPX, HH #### [facility] [address] [place] [address]. [place] [address] Luggage Liner: Juan Joe MD Immature granulocytes/100 WBC (Bld) 1 % High 0 [facility] Comment on above: Performed By: #### L IVP, LIP, BMPX, HH #### [facility] [address] [place], [place] [address]ia [facility] [place] [address] Luggage Liner: Juan Joe MD Lymphocytes (Bld) [#/Vol] 1.40 10*3/uL Normal 1.10-3.70 [facility] Comment on above: Performed By: #### L IVP, LIP, BMPX, HH #### [facility] [address] [facility] [place] [address] Luggage Liner: Juan Joe MD Lymphocytes/100 WBC (Bld) 10 % Low 24-43 [facility] Comment on above: Performed By: #### L IVP, LIP, BMPX, HH #### [facility] [place] [address] Luggage Liner: Juan Joe MD Monocytes (Bld) [#/Vol] 0.28 10*3/uL Normal 0.10-1.20 [facility] Comment on above: Performed By: #### L IVP, LIP, BMPX, HH #### [facility] [address] [place] [address] Luggage Liner: Juan Joe MD Monocytes/100 WBC (Bld) 2 % Low 3-12 [facility] Comment on above: Performed By: #### L IVP, LIP, BMPX, HH #### [facility] [address] [place], [place] [address]ia [facility] [place] [address] Luggage Liner: Juan Joe MD Neutrophil (Seg) 87 % High 36-65 [facility] Comment on above: Performed By: #### L IVP, LIP, BMPX, HH #### [facility] [address] [facility] [place] [address] Luggage Liner: Juan Joe MD Erythrocyte distribution width (RBC) [Ratio] 19.9 % High 11.8-14.4 [facility] Comment on above: Performed By: #### L IVP, LIP, BMPX, HH #### [facility] [address] [facility] [place] [address] Luggage Liner: Juan Joe MD Hematocrit (Bld) [Volume fraction] 20.2 % Low 36.3-47.1 [facility] Comment on above: Performed By: #### L IVP, LIP, BMPX, HH #### [facility] [address] [place], [place] [address] [facility] [place] [address] Luggage Liner: Juan Joe MD Hemoglobin (Bld) [Mass/Vol] 6.2 g/dL Critically low 11.9-15.1 [facility] Comment on above: Performed By: #### L IVP, LIP, BMPX, HH #### [facility] [address] [place] [address] Luggage Liner: Juan Joe MD MCH (RBC) [Entitic mass] 27.4 pg Normal 25.2-33.5 [facility] Comment on above: Performed By: #### L IVP, LIP, BMPX, HH #### [facility] [address] [place] [address] Luggage Liner: Juan Joe MD MCHC (RBC) [Mass/Vol] 30.7 g/dL Normal 28.4-34.8 [facility] Comment on above: Performed By: #### L IVP, LIP, BMPX, HH #### [facility] [address] [place] [address]. [place] [address] Luggage Liner: Juan Joe MD MCV (RBC) [Entitic vol] 89.4 fL Normal 82.6-102.9 [facility] Comment on above: Performed By: #### L IVP, LIP, BMPX, HH #### [facility] [place] [address] Luggage Liner: Juan Joe MD NRBC Automated 0.3 per 100 WBC High 0.0 [facility] Comment on above: Performed By: #### L IVP, LIP, BMPX, HH #### [facility] [address] [facility] [place] [address] Luggage Liner: Juan Joe MD Platelet mean volume (Bld) [Entitic vol] 11.4 fL Normal 8.1-13.5 [facility] Comment on above: Performed By: #### L IVP, LIP, BMPX, HH #### [facility] [place] [address] Luggage Liner: Juan Joe MD Platelets (Bld) [#/Vol] 323 10*3/uL Normal 138-453 [facility] Comment on above: Performed By: #### L IVP, LIP, BMPX, HH #### [facility] [address] [facility] [place] [address] Luggage Liner: Juan Joe MD RBC (Bld) [#/Vol] 2.26 10*6/uL Low 3.95-5.11 [facility] Comment on above: Performed By: #### L IVP, LIP, BMPX, HH #### [facility] [address] [place] [address]. [place] [address] Luggage Liner: Juan Joe MD WBC (Bld) [#/Vol] 14.0 10*3/uL High 3.5-11.3 [facility] Comment on above: Performed By: #### L IVP, LIP, BMPX, HH #### [facility] [address] [place] [address]. [place] [address] Luggage Liner: Juan Joe MD Abs. Basophil 0.00 k/uL Normal 0.00-0.20 [facility] Comment on above: Performed By: #### L IVP, LIP, BMPX, HH #### [facility] [address] [place] [address]. [place] [address] Luggage Liner: Juan Joe MD Abs.Imm.Granulocyte 0.11 k/uL Normal 0.00-0.30 [facility] Comment on above: Performed By: #### L IVP, LIP, BMPX, HH #### [facility] [address] [place] [address]. [place] [address] Luggage Liner: Juan Joe MD Abs.Neutrophil (Seg) 9.64 k/uL High 1.50-8.10 [facility] Comment on above: Performed By: #### L IVP, LIP, BMPX, #### [facility] [address] [place] [address] Luggage Liner: Juan Joe MD Basophils/100 WBC (Bld) 0 % Normal 0-2 [facility] Comment on above: Performed By: #### L IVP, LIP, BMPX, #### [facility] [place] [address] Luggage Liner: Juan Joe MD Eosinophils (Bld) [#/Vol] 0.00 10*3/uL Normal 0.00-0.44 [facility] Comment on above: Performed By: #### L IVP, LIP, BMPX, HH #### [facility] [address] [place] [address]. [place] [address] Luggage Liner: Juan Joe MD Eosinophils/100 WBC (Bld) 0 % Low 1-4 [facility] Comment on above: Performed By: #### L IVP, LIP, BMPX, HH #### [facility] [address] [place] [address] Luggage Liner: Juan Joe MD Immature granulocytes/100 WBC (Bld) 1 % High 0 [facility] Comment on above: Performed By: #### L IVP, LIP, BMPX, HH #### [facility] [place] [address] Luggage Liner: Juan Joe MD Lymphocytes (Bld) [#/Vol] 1.23 10*3/uL Normal 1.10-3.70 [facility] Comment on above: Performed By: #### L IVP, LIP, BMPX, HH #### [facility] [address] [place] [address]. [place] [address] Luggage Liner: Juan Joe MD Lymphocytes/100 WBC (Bld) 11 % Low 24-43 [facility] Comment on above: Performed By: #### L IVP, LIP, BMPX, HH #### [facility] [address] [place] [address] Luggage Liner: Juan Joe MD Monocytes (Bld) [#/Vol] 0.22 10*3/uL Normal 0.10-1.20 [facility] Comment on above: Performed By: #### L IVP, LIP, BMPX, HH #### [facility] [address] [place], [place] [address]ia [facility] [place] [address] Luggage Liner: Juan Joe MD Monocytes/100 WBC (Bld) 2 % Low 3-12 [facility] Comment on above: Performed By: #### L IVP, LIP, BMPX, HH #### [facility] [place] [address] Luggage Liner: Juan Joe MD Neutrophil (Seg) 86 % High 36-65 [facility] Comment on above: Performed By: #### L IVP, LIP, BMPX, HH #### [facility] [address] [place] [address]. [place] [address] Luggage Liner: Juan Joe MD Erythrocyte distribution width (RBC) [Ratio] 19.8 % High 11.8-14.4 [facility] Comment on above: Performed By: #### L IVP, LIP, BMPX, HH #### [facility] [address] [place] [address]. [place] [address] Luggage Liner: Juan Joe MD Hematocrit (Bld) [Volume fraction] 17.9 % Low 36.3-47.1 [facility] Comment on above: Performed By: #### L IVP, LIP, BMPX, HH #### [facility] [address] [facility] [place] [address] Luggage Liner: Juan Joe MD Hemoglobin (Bld) [Mass/Vol] 5.6 g/dL Critically low 11.9-15.1 [facility] Comment on above: Performed By: #### L IVP, LIP, BMPX, HH #### [facility] [place] [address] Luggage Liner: Juan Joe MD MCH (RBC) [Entitic mass] 27.6 pg Normal 25.2-33.5 [facility] Comment on above: Performed By: #### L IVP, LIP, BMPX, HH #### [facility] [address] [place] [address]. [place] [address] Luggage Liner: Juan Joe MD MCHC (RBC) [Mass/Vol] 31.3 g/dL Normal 28.4-34.8 [facility] Comment on above: Performed By: #### L IVP, LIP, BMPX, HH #### [facility] [address] [place] [address]. [place] [address] Luggage Liner: Juan Joe MD MCV (RBC) [Entitic vol] 88.2 fL Normal 82.6-102.9 [facility] Comment on above: Performed By: #### L IVP, LIP, BMPX, HH #### [facility] [place] [address] Luggage Liner: Juan Joe MD NRBC Automated 0.2 per 100 WBC High 0.0 [facility] Comment on above: Performed By: #### L IVP, LIP, BMPX, HH #### [facility] [address] [facility] [place] [address] Luggage Liner: Juan Joe MD Platelet mean volume (Bld) [Entitic vol] 11.3 fL Normal 8.1-13.5 [facility] Comment on above: Performed By: #### L IVP, LIP, BMPX, HH #### [facility] [address] [place] [address] Luggage Liner: Juan Joe MD Platelets (Bld) [#/Vol] 274 10*3/uL Normal 138-453 [facility] Comment on above: Performed By: #### L IVP, LIP, BMPX, HH #### [facility] [address] [place] [address] Luggage Liner: Juan Joe MD RBC (Bld) [#/Vol] 2.03 10*6/uL Low 3.95-5.11 [facility] Comment on above: Performed By: #### L IVP, LIP, BMPX, HH #### [facility] [address] [place] [address] Luggage Liner: Juan Joe MD WBC (Bld) [#/Vol] 11.2 10*3/uL Normal 3.5-11.3 [facility] Comment on above: Performed By: #### L IVP, LIP, BMPX, HH #### [facility] [place] [address] Luggage Liner: Juan Joe MD CKon 04-26-2023 CK [Catalytic activity/Vol] 28 U/L 26 - 192 U/L [facility] Comp Metabolic Pr/rfx MGon 0 04-26-2023 Albumin [Mass/Vol] 3.1 g/dL Low 3.5-5.2 [facility] Comment on above: Performed By: #### L IVP, LIP, BMPX, HH #### [facility] [place] [address] Luggage Liner: Juan Joe MD Alkaline Phos 695 U/L High 35-104 [facility] Comment on above: Performed By: #### L IVP, LIP, BMPX, HH #### [facility] [address] [place] [address] Luggage Liner: Juan Joe MD ALT [Catalytic activity/Vol] 67 U/L High 5-33 [facility] Comment on above: Performed By: #### L IVP, LIP, BMPX, HH #### [facility] [address] [place] [address] Luggage Liner: Juan Joe MD Anion gap [Moles/Vol] 15 mmol/L Normal 9-17 [facility] Comment on above: Performed By: #### L IVP, LIP, BMPX, HH #### [facility] [address] [place] [address] Luggage Liner: Juan Joe MD AST [Catalytic activity/Vol] 50 U/L High <32 [facility] Comment on above: Performed By: #### L IVP, LIP, BMPX, HH #### [facility] [address] [facility] [place] [address] Luggage Liner: Juan Joe MD Bilirubin [Mass/Vol] 3.0 mg/dL High 0.3-1.2 [facility] Comment on above: Performed By: #### L IVP, LIP, BMPX, HH #### [facility] [address] [facility] [place] [address] Luggage Liner: Juan Joe MD BUN/CRE Ratio 31 High 9-20 [facility] Comment on above: Performed By: #### L IVP, LIP, BMPX, HH #### [facility] [address] [place] [address] Luggage Liner: Juan Joe MD Calcium [Mass/Vol] 8.5 mg/dL Low 8.6-10.4 [facility] Comment on above: Performed By: #### L IVP, LIP, BMPX, #### [facility] [address] [place] [address] Luggage Liner: Juan Joe MD Chloride [Moles/Vol] 101 mmol/L Normal 98-107 [facility] Comment on above: Performed By: #### L IVP, LIP, BMPX, HH #### [facility] [address] [place] [address] Luggage Liner: Juan Joe MD CO2 [Moles/Vol] 14 mmol/L Low 20-31 [facility] Comment on above: Performed By: #### L IVP, LIP, BMPX, HH #### [facility] [address] [place] [address] Luggage Liner: Juan Joe MD Creatinine [Mass/Vol] 1.1 mg/dL High 0.5-0.9 [facility] Comment on above: Result Comment: ICTE DMITRIY SPECIMEN Performed By: #### L IVP, LIP, BMPX, #### [facility] [address] [place] [address] Luggage Liner: Juan Joe MD GFR/1.73 sq M.predicted among non-blacks MDRD (S/P/Bld) [Vol rate/Area] 56 mL/min/{1.73_m2} Low >60 [facility] Comment on above: Result Comment: These [...] #### L IVP, LIP, BMPX, HH #### [facility] [address] [place] [address] Luggage Liner: Jaun Joe MD Glucose [Mass/Vol] 416 mg/dL Critically high 70-99 [facility] Comment on above: Performed By: #### L IVP, LIP, BMPX, HH #### [facility] [place] [address] Luggage Liner: Juan Joe MD Potassium [Moles/Vol] 5.4 mmol/L High 3.7-5.3 [facility] Comment on above: Performed By: #### L IVP, LIP, BMPX, HH #### [facility] [place] [address] Luggage Liner: Juan Joe MD Protein [Mass/Vol] 6.2 g/dL Low 6.4-8.3 [facility] Comment on above: Performed By: #### L IVP, LIP, BMPX, HH #### [facility] [place] [address] Luggage Liner: Juan Joe MD Sodium [Moles/Vol] 130 mmol/L Low 135-144 [facility] Comment on above: Performed By: #### L IVP, LIP, BMPX, HH #### [facility] [address] [place] [address] Luggage Liner: Juan Joe MD Urea nitrogen [Mass/Vol] 34 mg/dL High 8-23 [facility] Comment on above: Performed By: #### L IVP, LIP, BMPX, HH #### [facility] [address] [place] [address] Luggage Liner: Juan Joe MD Albumin [Mass/Vol] 2.8 g/dL Low 3.5-5.2 [facility] Comment on above: Performed By: #### L IVP, LIP, BMPX, HH #### [facility] [address] [place] [address] Luggage Liner: Juan Joe MD Alkaline Phos 628 U/L High 35-104 [facility] Comment on above: Performed By: #### L IVP, LIP, BMPX, HH #### [facility] [address] [place] [address] Luggage Liner: uJan Joe MD ALT [Catalytic activity/Vol] 61 U/L High 5-33 [facility] Comment on above: Performed By: #### L IVP, LIP, BMPX, HH #### [facility] [address] [place] [address] Luggage Liner: Juan Joe MD Anion gap [Moles/Vol] 12 mmol/L Normal 9-17 [facility] Comment on above: Performed By: #### L IVP, LIP, BMPX, #### [facility] [place] [address] Luggage Liner: Juan Joe MD AST [Catalytic activity/Vol] 47 U/L High <32 [facility] Comment on above: Performed By: #### L IVP, LIP, BMPX, HH #### [facility] [place] [address] Luggage Liner: Juan Joe MD Bilirubin [Mass/Vol] 2.7 mg/dL High 0.3-1.2 [facility] Comment on above: Performed By: #### L IVP, LIP, BMPX, #### [facility] [address] [place] [address] Luggage Liner: Juan Joe MD BUN/CRE Ratio 37 High 9-20 [facility] Comment on above: Performed By: #### L IVP, LIP, BMPX, #### [facility] [address] [place] [address] Luggage Liner: Juan Joe MD Calcium [Mass/Vol] 8.2 mg/dL Low 8.6-10.4 [facility] Comment on above: Performed By: #### L IVP, LIP, BMPX, HH #### [facility] [address] [place], [place] [address]ia [facility] [place] [address] Luggage Liner: Juan Joe MD Chloride [Moles/Vol] 103 mmol/L Normal 98-107 [facility] Comment on above: Performed By: #### L IVP, LIP, BMPX, #### [facility] [facility] [place] [address] Luggage Liner: Juan Joe MD CO2 [Moles/Vol] 15 mmol/L Low 20-31 [facility] Comment on above: Performed By: #### L IVP, LIP, BMPX, #### [facility] [place] [address] Luggage Liner: Juan Joe MD Creatinine [Mass/Vol] 0.9 mg/dL Normal 0.5-0.9 [facility] Comment on above: Result Comment: ICTE DMITRIY SPECIMEN Performed By: #### L IVP, LIP, BMPX, HH #### [facility] [place] [address] Luggage Liner: Juan Joe MD GFR/1.73 sq M.predicted among non-blacks MDRD (S/P/Bld) [Vol rate/Area] mL/min/{1.73_m2} Normal >60 [facility] Comment on above: Result Comment: These [...] By: #### L IVP, LIP, BMPX, #### [facility] [address] [facility] [place] [address] Luggage Liner: Juan Joe MD Glucose [Mass/Vol] 374 mg/dL High 70-99 [facility] Comment on above: Performed By: #### L IVP, LIP, BMPX, #### [facility] [address] [facility] [place] [address] Luggage Liner: Juan Joe MD Potassium [Moles/Vol] 5.9 mmol/L High 3.7-5.3 [facility] Comment on above: Performed By: #### L IVP, LIP, BMPX, #### [facility] [address] [facility] [place] [address] Luggage Liner: Juan Joe MD Protein [Mass/Vol] 5.7 g/dL Low 6.4-8.3 [facility] Comment on above: Performed By: #### L IVP, LIP, BMPX, #### [facility] [address] [facility] [place] [address] Luggage Liner: Juan Joe MD Sodium [Moles/Vol] 130 mmol/L Low 135-144 [facility] Comment on above: Performed By: #### L IVP, LIP, BMPX, #### [facility] [address] [place] [address] Luggage Liner: Juan Joe MD Urea nitrogen [Mass/Vol] 33 mg/dL High 8-23 [facility] Comment on above: Performed By: #### L IVP, LIP, BMPX, #### [facility] [address] [place] [address] Luggage Liner: Juan Joe MD Comprehensive Metabolic Pane l w/ Reflex to MGon 04-26-2023 Albumin [Mass/Vol] 3.1 g/dL Low 3.5 - 5.2 g/dL [facility] ALP [Catalytic activity/Vol] 695 U/L High 35 - 104 U/L [facility] ALT [Catalytic activity/Vol] 67 U/L High 5 - 33 U/L [facility] Anion gap [Moles/Vol] 15 mmol/L 9 - 17 mmol/L [facility] AST [Catalytic activity/Vol] 50 U/L High NINF - 32 U/L [facility] Bilirubin [Mass/Vol] 3.0 mg/dL High 0.3 - 1.2 mg/dL [facility] Calcium [Mass/Vol] 8.5 mg/dL Low 8.6 - 10. 4 mg/dL [facility] Chloride [Moles/Vol] 101 mmol/L 98 - 107 mmol/L [facility] CO2 [Moles/Vol] 14 mmol/L Low 20 - 31 mmol/L [facility] Creatinine [Mass/Vol] 1.1 mg/dL High 0.5 - 0.9 mg/d L [facility] Comment on above: ICTERIC SPECIMEN GFR/1.73 sq M.predicted MDRD (S/P/Bld) [Vol rate/Area] 56 mL/min/{1.73_m2} Low - PINF [facility] Comment on above: These results are not [...] [Mass/Vol] 416 mg/dL Critically high 70 - 99 mg/d L [facility] Interpretation and review of laboratory results Abnormal [facility] Potassium [Moles/Vol] 5.4 mmol/L High 3.7 - 5.3 mmol/L [facility] Protein [Mass/Vol] 6.2 g/dL Low 6.4 - 8.3 g/dL [facility] Sodium [Moles/Vol] 130 mmol/L Low 135 - 144 mmol/L [facility] Urea nitrogen [Mass/Vol] 34 mg/dL High 8 - 23 mg/dL [facility] Urea nitrogen/Creatinine [Mass ratio] 31 mg/mg High 9 - 20 [facility] Albumin [Mass/Vol] 2.8 g/dL Low 3.5 - 5.2 g/dL [facility] ALP [Catalytic activity/Vol] 628 U/L High 35 - 104 U/L [facility] ALT [Catalytic activity/Vol] 61 U/L High 5 - 33 U/L [facility] Anion gap [Moles/Vol] 12 mmol/L 9 - 17 mmol/L [facility] AST [Catalytic activity/Vol] 47 U/L High NINF - 32 U/L [facility] Bilirubin [Mass/Vol] 2.7 mg/dL High 0.3 - 1.2 mg/dL [facility] Calcium [Mass/Vol] 8.2 mg/dL Low 8.6 - 10. 4 mg/dL [facility] Chloride [Moles/Vol] 103 mmol/L 98 - 107 mmol/L [facility] CO2 [Moles/Vol] 15 mmol/L Low 20 - 31 mmol/L [facility] Creatinine [Mass/Vol] 0.9 mg/dL 0.5 - 0.9 mg/d L [facility] Comment on above: ICTERIC SPECIMEN GFR/1.73 sq M.predicted MDRD (S/P/Bld) [Vol rate/Area] - PINF [facility] Comment on above: These results are not [...] 374 mg/dL High 70 - 99 mg/dL [facility] Potassium [Moles/Vol] 5.9 mmol/L High 3.7 - 5.3 mmol/L [facility] Protein [Mass/Vol] 5.7 g/dL Low 6.4 - 8.3 g/dL [facility] Sodium [Moles/Vol] 130 mmol/L Low 135 - 144 mmol/L [facility] Urea nitrogen [Mass/Vol] 33 mg/dL High 8 - 23 mg/dL [facility] Urea nitrogen/Creatinine [Mass ratio] 37 mg/mg High 9 - 20 [facility] Creatine Kinaseon 04-26-2023 CK [Catalytic activity/Vol] 28 U/L Normal 26-192 [facility] Comment on above: Performed By: #### L IVP, LIP, BMPX, HH #### [facility] [address] [place] [address] Luggage Liner: Jaun Joe MD Cytology, Non-Gynon 04-26-19 [facility] Ferritinon 04-26-2023 Ferritin [Mass/Vol] 173 ng/mL High 13 - 150 ng/mL B ON [facility] Interpretation and review of laboratory results Abnormal [facility] Fibrin Split Prodon 04-26-19 Fibrin Split Prod <5 Normal <5 [facility] Comment on above: Performed By: #### L IVP, LIP, BMPX, HH #### [facility] [address] [place], [place] [id number] Luggage Liner: Juan Joe MD Fibrin Split Productson 04-04 FDP <5 NINF - 5 ug/mL [facility] Fibrinogenon 04-26-2023 Fibrinogen 639 mg/dL High 179-518 [facility] Comment on above: Performed By: #### L IVP, LIP, BMPX, HH #### [facility] [address] [place], [place] [id number] Luggage Liner: Juan Joe MD Fibrinogen Coag (PPP) [Mass/Vol] 639 mg/dL High 179 - 518 mg/dL [facility] Interpretation and review of laboratory results Abnormal [facility] Haptoglobinon 04-26-2023 Haptoglobin 376 mg/dL High 30-200 [facility] Comment on above: Performed By: #### L IVP, LIP, BMPX, HH #### [facility] [address] [facility] [place] [address] Luggage Liner: Juan Joe MD Haptoglobin [Mass/Vol] 376 mg/dL High 30 - 200 mg/dL [facility] Interpretation and review of laboratory results Abnormal [facility] Hemoglobin and Hematocriton 04-26-2023 Hematocrit (Bld) [Volume fraction] 22.2 % Low 36.3 - 47.1 % [facility] Hemoglobin (Bld) [Mass/Vol] 7.1 g/dL Low 11.9 - 15.1 g/dL [facility] Interpretation and review of laboratory results Abnormal [facility] Hgb/Hcton 04-26-2023 Hematocrit (Bld) [Volume fraction] 22.2 % Low 36.3-47.1 [facility] Comment on above: Performed By: #### L IVP, LIP, BMPX, HH #### [facility] [address] [facility] [place], [place] [id number] Luggage Liner: Juan Joe MD Hemoglobin (Bld) [Mass/Vol] 7.1 g/dL Low 11.9-15.1 [facility] Comment on above: Performed By: #### L IVP, LIP, BMPX, #### [facility] [address] [place], [place] [id number] Luggage Liner: Juan Joe MD Lipaseon 04-26-2023 Lipase [Catalytic activity/Vol] 531 U/L High 13-60 [facility] Comment on above: Performed By: #### L IVP, LIP, BMPX, HH #### [facility] [address] [facility] [place], [place] [id number] Luggage Liner: Juan Joe MD Lipase [Catalytic activity/Vol] 531 U/L High 13 - 60 U/L [facility] No Panel Informationon 04-26 [facility] Interpretation and review of laboratory results Abnormal [facility] Non-Personnel Assistant Cytologyon Case No: [id number] Normal [facility] Comment on above: Performed By: #### [facility] #### [address] [id number] Luggage Liner: Mu Roberson MD POC Glucose Fingerstickon Glucose [Mass/Vol] 395 mg/dL High 65 - 105 mg/dL [facility] Interpretation and review of laboratory results Abnormal [facility] Glucose [Mass/Vol] 403 mg/dL Critically high 65 - 105 mg/ dL [facility] Interpretation and review of laboratory results Abnormal [facility] Glucose [Mass/Vol] 361 mg/dL High 65 - 105 mg/dL [facility] Interpretation and review of laboratory results Abnormal [facility] Retic Counton 04-26-2023 Absolute Retic 0.113 M/uL High 0.030-0.080 [facility] Comment on above: Performed By: #### L IVP, LIP, BMPX, HH #### [facility] [address] [facility] [place] [address] Luggage Liner: Juan Joe MD IRF 38.0 % High 2.7-18.3 [facility] Comment on above: Performed By: #### L IVP, LIP, BMPX, HH #### [facility] [address] [place] [address]. [place] [address] Luggage Liner: Juan Joe MD Retic Count 4.2 % High 0.5-1.9 [facility] Comment on above: Performed By: #### L IVP, LIP, BMPX, HH #### [facility] [address] [place] [address] Luggage Liner: Juan Joe MD Retic Hemoglobin 29.8 pg Normal 28.2-35.7 [facility] Comment on above: Performed By: #### L IVP, LIP, BMPX, HH #### [facility] [address] [place] [address] Luggage Liner: Juan Joe MD Reticulocyteson 04-26-2023 Immature reticulocytes/Total reticulocytes (Bld) 38.0 % High 2.7 - 18.3 % [facility] Interpretation and review of laboratory results Abnormal [facility] Retic Hemoglobin 29.8 pg 28.2 - 35.7 pg [facility] Reticulocytes (Bld) [#/Vol] 0.113 10*3/uL High [facility] Reticulocytes/100 RBC (Bld) 4.2 % High 0.5 - 1.9 % [facility] Specimen Rejectionon 024 Reason for rejection Unable to perform testing: Results suspect due to history of previous lab Normal [facility] Comment on above: Result Comment: resu lts. Performed By: #### L IVP, LIP, BMPX, HH #### [facility] [address] [place], [place] [id number] Luggage Liner: Juan Joe MD Source of sample .BLOOD Normal [facility] Comment on above: Performed By: #### L IVP, LIP, BMPX, HH #### [facility] [address] [place], [place] [id number] Luggage Liner: Juan Joe MD Test ordered CDP Normal [facility] Comment on above: Performed By: #### L IVP, LIP, BMPX, HH #### [facility] [address] [place], [place] [id number] Luggage Liner: Juan Joe MD Surgical Pathology Reporton 04-26-2023 Surgical Pathology Report (NOTE) [facility] ANATOMIC PATHOLOGY [address] [place] [address]. [place], [place] [address] SURGICAL PATHOLOGY CONSULTATION Patient Name: VENANCIO NELSON MR#: [id number] Specimen #[id number] Procedures/Addenda PERIPHERAL BLOOD REPORT Date Ordered: 04/27/2023 [...] the electronic health record for CBC parameters ([id number], 04/26/2023, 09:51). Note: The electronic health record is reviewed. [place] Source: A: Peripheral Blood Normal [facility] Trop/Myoglobinon 04-26-2023 Myoglobin [Mass/Vol] 54 ng/mL Normal 25-58 [facility] Comment on above: Performed By: #### L IVP, LIP, BMPX, #### [facility] [address] [place] [address] Luggage Liner: Juan Joe MD Troponin, High Sens 26 ng/L High 0-14 [facility] Comment on above: Result Comment: High Sensitivity Troponin values cannot be compared with other Troponin methodologies. Performed By: #### L IVP, LIP, BMPX, #### [facility] [address] [place] [address] Luggage Liner: Juan Joe MD Interpretation and review of laboratory results Abnormal [facility] Myoglobin [Mass/Vol] 54 ng/mL 25 - 58 ng/mL B ON [facility] Troponin I.cardiac High sensitivity method [Mass/Vol] 26 ng/L High 0 - 14 ng/L [facility] Comment on above: High Sensitivity Tro ponin values cannot be compared with other Troponin methodologies. [facility] CT CHEST ABDOMEN PELVIS W CO NTRASTon [...] obstructive jaundice, incidental pulmonary nodules identified on CUTTING AND SPLICING SUPERVISOR PROVIDED HISTORY: Pancreatic mass, obstructive jaundice, incidental [...] The bladder and reproductive organs are unremarkable. Peritoneum/Retroperit oneum: No evidence of ascites or free air. [...] Poncho Trejo MD 04/24/23 Final result Normal [facility] FLUORO FOR SURGICAL PROCEDUR ESon 04-25-2023 FLUORO FOR SURGICAL PROCEDURES Radiology exam is complete. No Radiologist dictation. Please follow up with ordering provider. Final result Normal [facility] Guidance-- during surgeryon 04-25-2023 Radiology exam is complete. No Radiologist dictation. Please follow up with ordering provider. PN RIS CONSOLIDATED POC Glucose Fingerstickon Glucose [Mass/Vol] 305 mg/dL High 65 - 105 mg/dL [facility] Interpretation and review of laboratory results Abnormal [facility] Glucose [Mass/Vol] 362 mg/dL High 65 - 105 mg/dL [facility] Interpretation and review of laboratory results Abnormal [facility] Surgical Pathology Reporton 04-25-2023 Surgical Pathology Report (NOTE) Path Number: [id number] -- Diagnosis -- A. DUODENUM, BIOPSY: -SMALL [...] ENDOSCOPIC ULTRASOUND WITH PATHOLOGY; ERCP ENDOSCOPIC RETROGRADE CHOLANGIOPANCREATOGRA CHESTER dorsey Source of Specimen A: DUODENAL BX B: GASTRIC BIOPSY C: IRREGULAR Z LINE BIOPSY Gross Description A. VENANCIO NELSON, DUODENAL BIOPSY Received in formalin are two gilbert-white tissue fragments from 0.2 to 0.3 cm and are 0.5 x 0.2 x 0.1 cm in aggregate. Entirely 1cs. B. VENANCIO NELSON, GASTRIC BIOPSY Received in formalin are two gilbert-white tissue fragments from 0.2 to 0.5 cm and are 0.7 x 0.2 x 0.1 cm in aggregate. Entirely 1cs. C. VENANCIO NELSON, IRREGULAR Z-LINE BIOPSY Received in formalin is one gilbert-white tissue fragment, 0.5 x 0.2 x 0.2 cm. Entirely 1cs. jj tm Nan Arnold M.D./mj:04/26/2023 Microscopic Description A-C. Microscopic examination performed. H. pylori immunostain performed because no organisms apparent on FARIDEH. C. Pancytokeratin immunostain was performed and reveals no infiltrating malignant epithelial cells. Control reacts as expected. Processing Lab: [address] [address] Interpretation Performed at [address] [address] SURGICAL PATHOLOGY CONSULTATION Patient Name: VENANCIO NELSONDena [facility] Rec: [id number] [facility] ANATOMIC PATHOLOGY [address] [facility]. [place], [place] [address] Normal [facility] Surgical Pathology Report (NOTE) [id number] [facility] CON[facility]ISTS [place] ANATOMIC PATHOLOGY [address] [facility] [place], [place] [address] NONGYNECOLOGICAL CYTOPATHOLOGY CONSULTATION Patient Name: VENANCIO NELSON MR#: [id number] Specimen #[id number] Procedures/Addenda ADDENDUM AFTER SPECIAL STAINS Date Ordered: 05/22/2023 Status: Signed Out Date Complete: 05/22/2023 By: Nan Arnold M.D. Date Reported: 05/22/2023 INTERPRETATION AT THE REQUEST OF DR. FRANCINE SARABIA, BLOCK A1 WAS SENT TO [facility] FOR HER2 AND PD-L1 LDT STUDIES. THE RESULTS ARE FOLLOWS: HER2 (OTHER) WITH BREAST SCORING: NEGATIVE SCORE: 0 PD-L1 LDT: NOT DETECTED % IC / TOTAL VIABLE TUMOR CELLS: 0% % IC / TOTAL VIABLE TUMOR CELLS: 0% TOTAL PD-L1 EXPRESSION: 0 PLEASE SEE [facility]' COMPLETE REPORT ([id number]) FOR DETAILS. Nan Arnold M.D. MOLECULAR PATHOLOGY REPORT Date Ordered: 05/22/2023 Status: Signed Out Date Complete: 05/22/2023 By: Nan Arnold M.D. Date Reported: 05/22/2023 INTERPRETATION AT THE REQUEST OF DR. FRANCINE SARABIA, BLOCK A1 WAS SENT TO [facility] FOR NEXT GENERATION SEQUENCING AND FISH ANALYSIS. THE RESULTS ARE FOLLOWS: NEXT GENERATION SEQUENCING (NGS) AND ADDITIONAL MOLECULAR TESTING: NOT PERFORMED INSUFFICIENT TUMOR IS PRESENT FISH ANALYSIS NeoTYPE9 PANCREAS TUMOR PANEL: QNS INSUFFICIENT TUMOR REMAINING ON THE LEVEL SECTIONS FOR FISH PLEASE SEE [facility]' COMPLETE REPORT ([id number]) FOR DETAILS. Nan Arnold M.D. Final Diagnosis [...] shows patchy focal positivity in B1. Normal [facility] CBC auto differentialon 04-04 Basophils (Bld) [#/Vol] 0.12 10*3/uL [facility] Basophils/100 WBC (Bld) 1 % 0 - 2 % [facility] Eosinophils (Bld) [#/Vol] 0.40 10*3/uL [facility] Eosinophils/100 WBC (Bld) 4 % 1 - 4 % [facility] Erythrocyte distribution width (RBC) [Ratio] 19.1 % High 11.8 - 14.4 % [facility] Hematocrit (Bld) [Volume fraction] 28.3 % Low 36.3 - 47.1 % [facility] Hemoglobin (Bld) [Mass/Vol] 8.9 g/dL Low 11.9 - 15.1 g/dL [facility] Immature granulocytes (Bld) [#/Vol] 0.07 10*3/uL [facility] Immature granulocytes/100 WBC (Bld) 1 % High 0 [facility] Interpretation and review of laboratory results Abnormal [facility] Lymphocytes/100 WBC (Bld) 14 % Low 24 - 43 % [facility] Lymphocytes/100 WBC (Bld) 1.25 % [facility] MCH (RBC) [Entitic mass] 27.1 pg 25.2 - 33.5 pg [facility] MCHC (RBC) [Mass/Vol] 31.4 g/dL 28.4 - 34.8 g/dL [facility] MCV (RBC) [Entitic vol] 86.3 fL 82.6 - 102.9 fL [facility] Monocytes/100 WBC (Bld) 8 % 3 - 12 % [facility] Monocytes/100 WBC (Bld) 0.70 % [facility] Neutrophils/100 WBC (Bld) 72 % High 36 - 65 % [facility] Nucleated RBC/100 WBC (Bld) [Ratio] 0.0 % 0.0 per 100 WBC [facility] Platelet mean volume (Bld) [Entitic vol] 11.5 fL 8.1 - 13.5 fL [facility] Platelets (Bld) [#/Vol] 305 10*3/uL [facility] RBC (Bld) [#/Vol] 3.28 10*6/uL Low 3.95 - 5.1 1 m/uL [facility] RBC (Bld) [#/Vol] ANISOCYTOSIS PRESENT [facility] Segmented neutrophils/100 WBC (Bld) 6.70 % [facility] WBC other (Bld) [#/Vol] 9.2 [facility] CBC with Diffon 04-24-2023 Abs. Basophil 0.12 k/uL Normal 0.00-0.20 [facility] Comment on above: Performed By: #### L IVP, LIP, BMPX, HH #### [facility] [address] [place] [address] Luggage Liner: Juan Joe MD Abs.Imm.Granulocyte 0.07 k/uL Normal 0.00-0.30 [facility] Comment on above: Performed By: #### L IVP, LIP, BMPX, HH #### [facility] [facility] [place] [address] Luggage Liner: Juan Joe MD Abs.Neutrophil (Seg) 6.70 k/uL Normal 1.50-8.10 [facility] Comment on above: Performed By: #### L IVP, LIP, BMPX, HH #### [facility] [address] [place], [place] [address] [place] [address] Luggage Liner: Juan Joe MD Basophils/100 WBC (Bld) 1 % Normal 0-2 [facility] Comment on above: Performed By: #### L IVP, LIP, BMPX, HH #### [facility] [address] [place] [address]. [place] [address] Luggage Liner: Juan Joe MD Eosinophils (Bld) [#/Vol] 0.40 10*3/uL Normal 0.00-0.44 [facility] Comment on above: Performed By: #### L IVP, LIP, BMPX, HH #### [facility] [address] [place] [address]. [place] [address] Luggage Liner: Juan Joe MD Eosinophils/100 WBC (Bld) 4 % Normal 1-4 [facility] Comment on above: Performed By: #### L IVP, LIP, BMPX, HH #### [facility] [address] [place] [address]. [place] [address] Luggage Liner: Juan Joe MD Erythrocyte distribution width (RBC) [Ratio] 19.1 % High 11.8-14.4 [facility] Comment on above: Performed By: #### L IVP, LIP, BMPX, HH #### [facility] [address] [place] [address]. [place] [address] Luggage Liner: Juan Joe MD Hematocrit (Bld) [Volume fraction] 28.3 % Low 36.3-47.1 [facility] Comment on above: Performed By: #### L IVP, LIP, BMPX, #### [facility] [address] [facility] [place] [address] Luggage Liner: Juan Joe MD Hemoglobin (Bld) [Mass/Vol] 8.9 g/dL Low 11.9-15.1 [facility] Comment on above: Performed By: #### L IVP, LIP, BMPX, HH #### [facility] [address] [place] [address] Luggage Liner: Juan Joe MD Immature granulocytes/100 WBC (Bld) 1 % High 0 [facility] Comment on above: Performed By: #### L IVP, LIP, BMPX, #### [facility] [place] [address] Luggage Liner: Juan Joe MD Lymphocytes (Bld) [#/Vol] 1.25 10*3/uL Normal 1.10-3.70 [facility] Comment on above: Performed By: #### L IVP, LIP, BMPX, #### [facility] [address] [place] [address]. [place] [address] Luggage Liner: Juan Joe MD Lymphocytes/100 WBC (Bld) 14 % Low 24-43 [facility] Comment on above: Performed By: #### L IVP, LIP, BMPX, HH #### [facility] [place] [address] Luggage Liner: Juan Joe MD MCH (RBC) [Entitic mass] 27.1 pg Normal 25.2-33.5 [facility] Comment on above: Performed By: #### L IVP, LIP, BMPX, HH #### [facility] [address] [place] [address] Luggage Liner: Juan Joe MD MCHC (RBC) [Mass/Vol] 31.4 g/dL Normal 28.4-34.8 [facility] Comment on above: Performed By: #### L IVP, LIP, BMPX, HH #### [facility] [facility] [place] [address] Luggage Liner: Juan Joe MD MCV (RBC) [Entitic vol] 86.3 fL Normal 82.6-102.9 [facility] Comment on above: Performed By: #### L IVP, LIP, BMPX, HH #### [facility] [address] [place] [address]. [place] [address] Luggage Liner: Juan Joe MD Monocytes (Bld) [#/Vol] 0.70 10*3/uL Normal 0.10-1.20 [facility] Comment on above: Performed By: #### L IVP, LIP, BMPX, HH #### [facility] [address] [place] [address]. [place] [address] Luggage Liner: Juan Joe MD Monocytes/100 WBC (Bld) 8 % Normal 3-12 [facility] Comment on above: Performed By: #### L IVP, LIP, BMPX, HH #### [facility] [address] [place] [address]. [place] [address] Luggage Liner: Juan Joe MD Neutrophil (Seg) 72 % High 36-65 [facility] Comment on above: Performed By: #### L IVP, LIP, BMPX, HH #### [facility] [address] [place], [place] [address] [facility] [place] [address] Luggage Liner: Juan Joe MD NRBC Automated 0.0 per 100 WBC Normal 0.0 [facility] Comment on above: Performed By: #### L IVP, LIP, BMPX, #### [facility] [address] [place] [address] Luggage Liner: Juan Joe MD Platelet mean volume (Bld) [Entitic vol] 11.5 fL Normal 8.1-13.5 [facility] Comment on above: Performed By: #### L IVP, LIP, BMPX, HH #### [facility] [facility] [place] [address] Luggage Liner: Juan Joe MD Platelets (Bld) [#/Vol] 305 10*3/uL Normal 138-453 [facility] Comment on above: Performed By: #### L IVP, LIP, BMPX, HH #### [facility] [address] [facility] [place] [address] Luggage Liner: Juan Joe MD RBC (Bld) [#/Vol] 3.28 10*6/uL Low 3.95-5.11 [facility] Comment on above: Performed By: #### L IVP, LIP, BMPX, HH #### [facility] [address] [place] [address]. [place] [address] Luggage Liner: Juan Joe MD RBC morphology finding Nom (Bld) ANISOCYTOSIS PRESENT Normal [facility] Comment on above: Performed By: #### L IVP, LIP, BMPX, HH #### [facility] [place] [address] Luggage Liner: Juan Joe MD WBC (Bld) [#/Vol] 9.2 10*3/uL Normal 3.5-11.3 [facility] Comment on above: Performed By: #### L IVP, LIP, BMPX, #### [facility] [address] [place] [address] Luggage Liner: Juan Joe MD CT Chest and Abdomen [...] to Lung-RADS guidelines. Reference: Radiology. 2017; 284(1):228-43. [facility] RIS CONSOLIDATED EXAMINATION: CT OF THE CHEST, [...] obstructive jaundice, incidental pulmonary nodules identified on CUTTING AND SPLICING SUPERVISOR PROVIDED HISTORY: Pancreatic mass, obstructive jaundice, incidental [...] The bladder and reproductive organs are unremarkable. Peritoneum/Retroperit oneum: No evidence of ascites or free air. No evidence of lymphadenopathy. Aorta is normal in caliber. Bones/Soft Tissues: No acute bone or soft tissue abnormality. There is mild grade 1 anterolisthesis of L5 on S1 due to bilateral L5 pars defects. [facility] RIS CONSOLIDATED Poncho Trejo MD - 04/24/2023 [...] obstructive jaundice, incidental pulmonary nodules identified on CUTTING AND SPLICING SUPERVISOR PROVIDED HISTORY: Pancreatic mass, obstructive jaundice, incidental [...] The bladder and reproductive organs are unremarkable. Peritoneum/Retroperit oneum: No evidence of ascites or free air. [...] to Lung-RADS guidelines. Reference: Radiology. 2017; 284(1):228-43. [facility] Deminos [facility] Radiology Study observation (narrative) [facility] CT Chest and Abdomen and Pel vis W contrast IVOrdered By: Poncho Trejo on 04-24-2023 [facility] [employer] Work Phone: Comp Metabolic Pr/rfx MGon 0 04-24-2023 Albumin [Mass/Vol] 3.0 g/dL Low 3.5-5.2 [facility] Comment on above: Performed By: #### N [employer]ARM[employer] #### [address] [address] Luggage Liner: Mu Roberson MD Alkaline Phos 801 U/L High 35-104 [facility] Comment on above: Performed By: #### N VICE PRESIDENT PHARMAC[employer] #### [address] [address] Luggage Liner: Mu Roberson MD ALT [Catalytic activity/Vol] 88 U/L High 5-33 [facility] Comment on above: Performed By: #### N VICE PRESIDENT [employer]ARMAC[employer] #### [address] [address] Luggage Liner: Mu Roberson MD Anion gap [Moles/Vol] 10 mmol/L Normal 9-17 [facility] Comment on above: Performed By: #### N VICE PRESIDENT PHARMACY #### [address] [address] Luggage Liner: Mu Roberson MD AST [Catalytic activity/Vol] 56 U/L High <32 [facility] Comment on above: Performed By: #### N VICE PRES[employer]ARMAC[employer] #### [address] [address] Luggage Liner: Mu Roberson MD Bilirubin [Mass/Vol] 6.3 mg/dL High 0.3-1.2 [facility] Comment on above: Performed By: #### N VICE PRESIDENT PHARMACY #### [address] [address] Luggage Liner: Mu Roberson MD BUN/CRE Ratio 39 High 9-20 [facility] Comment on above: Performed By: #### N VICE PRESIDENT [employer]ARMACY #### [address] [address] Luggage Liner: Mu Roberson MD Calcium [Mass/Vol] 8.7 mg/dL Normal 8.6-10.4 [facility] Comment on above: Performed By: #### N [employer]ICE [employer]ARMAC[employer] #### [address] [address] Luggage Liner: Mu Roberson MD Chloride [Moles/Vol] 105 mmol/L Normal 98-107 [facility] Comment on above: Performed By: #### N VICE PRESIDENT PHARMACY #### [facility] [address] [place] [address] Luggage Liner: Mu Roberson MD CO2 [Moles/Vol] 15 mmol/L Low 20-31 [facility] Comment on above: Performed By: #### N VICE PRESIDENT [employer]ARMAC[employer] #### [address] [address] Luggage Liner: Mu Roberson MD Creatinine [Mass/Vol] 0.8 mg/dL Normal 0.5-0.9 [facility] Comment on above: Result Comment: ICTE DMITRIY SPECIMEN Performed By: #### N VICE PRESIDENT [employer]ARMAC[employer] #### [address] [address] Luggage Liner: Mu Roberson MD GFR/1.73 sq M.predicted among non-blacks MDRD (S/P/Bld) [Vol rate/Area] mL/min/{1.73_m2} Normal >60 [facility] Comment on above: Result Comment: These [...] renal tubular secretion. Performed By: #### N [employer]ICE PRESIDENT [employer]ARMAC[employer] #### [address] [address] Luggage Liner: Mu Roberson MD Glucose [Mass/Vol] 334 mg/dL High 70-99 [facility] Comment on above: Performed By: #### N VICE PRESIDENT [employer]ARMAC[employer] #### [place] [address] [place] [address] Luggage Liner: Mu Roberson MD Potassium [Moles/Vol] 5.2 mmol/L Normal 3.7-5.3 [facility] Comment on above: Performed By: #### N VICE PRESIDENT [employer]ARMAC[employer] #### [address] [address] Luggage Liner: Mu Roberson MD Protein [Mass/Vol] 6.1 g/dL Low 6.4-8.3 [facility] Comment on above: Performed By: #### N VICE PRESIDENT [employer]ARMAC[employer] #### [address] [address] Luggage Liner: Mu Roberson MD Sodium [Moles/Vol] 130 mmol/L Low 135-144 [facility] Comment on above: Performed By: #### N VICE PRESIDENT [employer]ARMAC[employer] #### [address] [address] Luggage Liner: Mu Roberson MD Urea nitrogen [Mass/Vol] 31 mg/dL High 8-23 [facility] Comment on above: Performed By: #### N [employer]ICE PRES[employer]ARM[employer] #### [address] [address] Luggage Liner: Mu Roberson MD Comprehensive Metabolic Pane l w/ Reflex to MGon 04-24-2023 Albumin [Mass/Vol] 3.0 g/dL Low 3.5 - 5.2 g/dL [facility] ALP [Catalytic activity/Vol] 801 U/L High 35 - 104 U/L [facility] ALT [Catalytic activity/Vol] 88 U/L High 5 - 33 U/L [facility] Anion gap [Moles/Vol] 10 mmol/L 9 - 17 mmol/L [facility] AST [Catalytic activity/Vol] 56 U/L High NINF - 32 U/L [facility] Bilirubin [Mass/Vol] 6.3 mg/dL High 0.3 - 1.2 mg/dL [facility] Calcium [Mass/Vol] 8.7 mg/dL 8.6 - 10. 4 mg/dL [facility] Chloride [Moles/Vol] 105 mmol/L 98 - 107 mmol/L [facility] CO2 [Moles/Vol] 15 mmol/L Low 20 - 31 mmol/L [facility] Creatinine [Mass/Vol] 0.8 mg/dL 0.5 - 0.9 mg/d L [facility] Comment on above: ICTERIC SPECIMEN GFR/1.73 sq M.predicted MDRD (S/P/Bld) [Vol rate/Area] - PINF [facility] Comment on above: These results are not [...] 334 mg/dL High 70 - 99 mg/dL [facility] Potassium [Moles/Vol] 5.2 mmol/L 3.7 - 5.3 mmol/L [facility] Protein [Mass/Vol] 6.1 g/dL Low 6.4 - 8.3 g/dL [facility] Sodium [Moles/Vol] 130 mmol/L Low 135 - 144 mmol/L [facility] Urea nitrogen [Mass/Vol] 31 mg/dL High 8 - 23 mg/dL [facility] Urea nitrogen/Creatinine [Mass ratio] 39 mg/mg High 9 - 20 [facility] ED Note-Physicianon 04-24-19 ED Note-Physician [id number] .00TIFF [facility] Lipaseon 04-24-2023 Lipase [Catalytic activity/Vol] 238 U/L High 13-60 [facility] Comment on above: Performed By: #### N VICE PRESIDENT PHARMACY #### [employer] [facility] [place], [place] [id number] Luggage Liner: Mu Roberson MD Lipase [Catalytic activity/Vol] 238 U/L High 13 - 60 U/L [facility] MR Abdomen WO and W contrast Yusra 04-24-2023 Radiology Study observation (narrative) [facility] Magnesiumon 04-24-2023 Magnesium [Mass/Vol] 1.9 mg/dL Normal 1.6-2.6 [facility] Comment on above: Performed By: #### N VICE PRESIDENT PHARMACY #### [facility] [address] [place], [place] [address] Luggage Liner: Mu Roberson MD Magnesium [Mass/Vol] 1.9 mg/dL 1.6 - 2.6 mg/dL [facility] No Panel Informationon 04-24 Interpretation and review of laboratory results Abnormal [facility] POC Glucose Fingerstickon Glucose [Mass/Vol] 307 mg/dL High 65 - 105 mg/dL [facility] Interpretation and review of laboratory results Abnormal [facility] Glucose [Mass/Vol] 341 mg/dL High 65 - 105 mg/dL [facility] Interpretation and review of laboratory results Abnormal [facility] Glucose [Mass/Vol] 330 mg/dL High 65 - 105 mg/dL [facility] Interpretation and review of laboratory results Abnormal [facility] Phosphoruson 04-24-2023 Phosphate [Mass/Vol] 2.4 mg/dL Low 2.6 - 4.5 mg/dL [facility] Phosphorus, Inorg.on Phosphorus, Inorg. 2.4 mg/dL Low 2.6-4.5 [facility] Comment on above: Performed By: #### N VICE PRESIDENT PHARMACY #### [facility] [address] [place], [place] [address] Luggage Liner: Mu Roberson MD RAD - CT Reporton 04-24-2023 RAD - CT Report [id number] .00TIFF Normal [facility] RAD - CT Report [id number] .00TIFF Normal [facility] RAD - CT Report [id number]. 00TIFF Normal [facility] RAD - MISCon 04-24-2023 RAD - MISC [id number]#1. 00TIFF Normal [facility] US GALLBLADDER RUQon 024 US GALLBLADDER RUQ EXAMINATION: RIGHT UPPER QUADRANT ULTRASOUND 04/24/2023 7:05 am COMPARISON: None. HISTORY: ORDERING SYSTEM PROVIDED HISTORY: pain > ?stone TECHNOLOGIST PROVIDED HISTORY: Pain > ?stone FINDINGS: LIVER: Suboptimal visualization secondary to over ribs. Normal echogenicity of the visualized liver without focal mass. Hepatopetal portal venous flow. BILIARY SYSTEM: No cholelithiasis, gallbladder wall thickening, or pericholecystic fluid. Camera Machinist reports some pain over the gallbladder/common duct. [...] Reid Ryan MD 04/24/23 Final result Normal [facility] US Gallbladderon 04-24-2023 [ 1. Dilated [...] cholelithiasis, gallbladder wall thickening, or pericholecystic fluid. Camera Machinist reports some pain over the gallbladder/common duct. Common duct measures 16 mm in diameter. RIGHT KIDNEY: 13-14 mm cortical cyst. Otherwise, normal cortical thickness and echogenicity. No hydronephrosis or distinct shadowing intrarenal calculus. PANCREAS: Visualized portions of the pancreas are unremarkable. OTHER: No evidence of right upper quadrant ascites. [facility] RIS Reid Wagoner MD - 04/24/2023 EXAMINATION: RIGHT UPPER QUADRANT ULTRASOUND 04/24/2023 7:05 am COMPARISON: None. HISTORY: ORDERING SYSTEM PROVIDED HISTORY: pain > ?stone TECHNOLOGIST PROVIDED HISTORY: Pain > ?stone FINDINGS: LIVER: Suboptimal visualization secondary to over ribs. Normal echogenicity of the visualized liver without focal mass. Hepatopetal portal venous flow. BILIARY SYSTEM: No cholelithiasis, gallbladder wall thickening, or pericholecystic fluid. Camera Machinist reports some pain over the gallbladder/common duct. [...] of the liver secondary to overlying structures. [facility] Radiology Study observation (narrative) [facility] US GallbladderOrdered By: Sherron Ryan on 04-24-2023 [facility] Work Phone: BUN & Creatinineon 4 Creatinine [Mass/Vol] 0.7 mg/dL 0.5 - 0.9 mg/d L [facility] Comment on above: ICTERIC SPECIMEN GFR/1.73 sq M.predicted MDRD (S/P/Bld) [Vol rate/Area] - PINF [facility] Comment on above: These results are not intended for use in patients <18 years of age. eGFR results are calculated without a race factor using the 202 CKD-EPI equation. Careful clinical correlation is recommended, particularly when comparing to results calculated using previous equations. The CKD-EPI equation is less accurate in patients with extremes of muscle mass, extra-renal metabolism of creatine, excessive creatine ingestion, or following therapy that affects renal tubular secretion. Interpretation and review of laboratory results Abnormal [facility] Urea nitrogen [Mass/Vol] 43 mg/dL High 8 - 23 mg/dL [facility] BUN + Creatinineon 4 Creatinine [Mass/Vol] 0.7 mg/dL Normal 0.5-0.9 [facility] Comment on above: Result Comment: ICTE DMITRIY SPECIMEN Performed By: #### N VICE PRESIDENT PHARMACY #### [employer] [address] [place], [place] [id number] Luggage Liner: Mu Roberson MD GFR/1.73 sq M.predicted among non-blacks MDRD (S/P/Bld) [Vol rate/Area] mL/min/{1.73_m2} Normal >60 [facility] Comment on above: Result Comment: These [...] renal tubular secretion. Performed By: #### N VICE PRESIDENT PHARMACY #### [employer] [address] [place], [place] [id number] Luggage Liner: Mu Roberson MD Urea nitrogen [Mass/Vol] 43 mg/dL High 8-23 [facility] Comment on above: Performed By: #### N VICE PRESIDENT PHARMACY #### [employer] [address] [place], [place] [id number] Luggage Liner: Mu Roberson MD Procalcitoninon 04-23-2023 Procalcitonin 0.26 ng/mL High 0.00-0.09 [facility] Comment on above: Result Comment: Suspected [...] entered into the Change in Procalcitonin Calculator (www.vaxqpg-agp-scjltafqaf.Message Systems) to determine the patient's Mortality Risk Prognosis In healthy neonates, plasma Procalcitonin (PCT) concentrations increase gradually after , reaching peak values at about 24 hours of age then decrease to normal values below 0.5 ng/mL by 48-72 hours of age. Performed By: #### N VICE PRESIDENT PHARMACY #### [facility] [address] [place], [place] [id number] Luggage Liner: Mu Roberson MD Interpretation and review of laboratory results Abnormal [facility] Procalcitonin [Mass/Vol] 0.26 ng/mL High 0.00 - 0.09 ng/mL [facility] Comment on above: Suspected Sepsis: <0.50 ng/mL [...] entered into the Change in Procalcitonin Calculator (www.ndjbzl-srs-vsfojeilys.Message Systems) to determine the patient's Mortality Risk Prognosis In healthy neonates, plasma Procalcitonin (PCT) concentrations increase gradually after , reaching peak values at about 24 hours of age then decrease to normal values below 0.5 ng/mL by 48-72 hours of age. [facility] Nurse Consultation Noteon Nurse Consultation Note Normal [facility] Insurance Correspondenceon 0 04-07-2023 Insurance Correspondence [id number]# 1.00TIFF Normal [facility] Insurance Correspondence [id number]# 1.00TIFF Normal [facility] Progress Note-Nurseon 2023 Progress Note-Nurse [id number]# 1.00TIFF Normal [facility] Heart and Vascular Office/Cl inic Noteon 03-31-2023 Heart and Vascular Office/Clinic Note Normal [facility] Comment on above: Result Comment: Elec tronically Signed By: Radha DURBIN CNP\.twila\Date and Time Signed: 03/31/23 16:40 EST Physician Orderon 03-31-2023 Physician Order [id number]# 1.00TIFF [facility] Consent for Treatmenton 03-04 Consent for Treatment [id number]#1 .00TIFF [facility] Ambulatory Visit Summaryon 05-25-2022 Ambulatory Visit Summary [facility] Nurse Consultation Noteon Nurse Consultation Note Normal [facility] Family Medicine Office/Clini c Noteon 03-23-2023 Family Medicine Office/Clinic Note Normal [facility] Comment on above: Result Comment: Elec tronically Signed By: Lázaro Riddle MD\.br\Date and Time Signed: 03/23/23 15:04 EST\.br\Electronically Co-Signed By: Anette Greenberg\.br\Date and Time Co-Signed: 03/22/23 17:40 EST Patient Educationon 03-22-20 23 Patient Education Normal [facility] A1C with Estimated Average Cosme aguilar 03-17-2023 Glucose [Mass/Vol] 212 mg/dL Normal [facility] Comment on above: Order Comment: Comme nt Add on Result Comment: PERF ORMED BY: [place] [address] PATHOLOGIST MINGLER OPERATOR KOREY FRANKS M.D. Performed By: #### A [address] [facility] eA #### [address] HbA1c (Bld) [Mass fraction] 9.0 % High 4.3-5.6 [facility] Comment on above: Order Comment: Comme nt Add on Result Comment: Incr eased risk for diabetes: 5.7 - 6.4 diabetes: >6.4 glycemic control for adults with diabetes: <7.0 Performed By: #### A [address] [facility] eA #### [address] Basic Metabolic Panelon 03-03 Anion gap [Moles/Vol] 11.1 mmol/L Normal 6.0-15.0 [facility] Comment on above: Performed By: #### G LULS #### Point of Care testing , Calcium [Mass/Vol] 8.6 mg/dL Normal 8.6-10.3 [facility] Comment on above: Performed By: #### G LULS #### Point of Care testing , Chloride [Moles/Vol] 104 mmol/L Normal 98-107 [facility] Comment on above: Performed By: #### G LULS #### Point of Care testing , CO2 [Moles/Vol] 22.6 mmol/L Normal 21.0-31.0 [facility] Comment on above: Performed By: #### G LULS #### Point of Care testing , Creatinine [Mass/Vol] 0.91 mg/dL Normal 0.60-1.20 [facility] Comment on above: Performed By: #### G LULS #### Point of Care testing , Creatinine Clr Calc Pharmacy 69.67 Normal [facility] Comment on above: Result Comment: PERF ORMED BY: [facility] [place] [address] PATHOLOGIST MINGLER OPERATOR KOREY FRANKS M.D. Performed By: #### G LULS #### Point of Care testing , GFR/1.73 sq M.predicted MDRD (S/P/Bld) [Vol rate/Area] mL/min/{1.73_m2} Normal [facility] Comment on above: Performed By: #### G LULS #### Point of Care testing , Glucose [Mass/Vol] 315 mg/dL Significant change up 70-100 [facility] Comment on above: Result Comment: [facility] Glucose Reference Range is dependent on time and content of last meal. Glucose of more than 200 mg/dL in a nonstressed, ambulatory subject supports the diagnosis of Diabetes Mellitus. ADA recommended reference range Performed By: #### G LULS #### Point of Care testing , Potassium [Moles/Vol] 4.7 mmol/L Normal 3.5-5.1 [facility] Comment on above: Performed By: #### G LULS #### Point of Care testing , Sodium [Moles/Vol] 133 mmol/L Significant change down 136-145 [facility] Comment on above: Performed By: #### G LULS #### Point of Care testing , Urea nitrogen [Mass/Vol] 34 mg/dL High 7-25 [facility] Comment on above: Performed By: #### G LULS #### Point of Care testing , Basophils Auto (Bld) [#/Vol] Ordered By: Luc Vargas on 03-17-2023 Basophils (Bld) [#/Vol] 0.1 10*3/uL 0.0-0.2 [facility] Basophils/100 WBC Auto (Bld) Ordered By: Luc Vargas on 03-17-2023 Basophils/100 WBC (Bld) 0.3 % . [facility] Calcium [Mass/volume] in Ser um or PlasmaOrdered By: Luc Vargas on 03-17-2023 Calcium [Mass/Vol] 8.6 mg/dL 8.6-10.3 [facility] Capillary blood glucose alvin urement by glucometer (mass/volume)Ordered By: Luc Vargas on 03-17-2023 Glucose [Mass/Vol] 290 mg/dL Normal [facility] Comment on above: Random Glucose Refer ence Range is dependent on time and content of last meal. Glucose of more than 200 mg/dL in a nonstressed, ambulatory subject supports the diagnosis of Diabetes Mellitus. Result Comment: [place] [facility] Glucose Reference Range is dependent on time and content of last meal. Glucose of more than 200 mg/dL in a nonstressed, ambulatory subject supports the diagnosis of Diabetes Mellitus. Performed By: #### G LULS #### Point of Care testing , Carbon dioxide, total [Moles /volume] in Serum or PlasmaOrdered By: Luc Vargas on 03-17-2023 CO2 [Moles/Vol] 22.6 mmol/L 21.0-31.0 [facility] Chloride [Moles/volume] in S gee or PlasmaOrdered By: Luc Vargas on 03-17-2023 Chloride [Moles/Vol] 104 mmol/L 98-[address] [facility] Complete Blood Count Auto Di ffon 03-17-2023 Basophils (Bld) [#/Vol] 0.1 10*3/uL Normal 0.0-0.2 [facility] Comment on above: Result Comment: PERF ORMED BY: [facility] [address] [place] [address] PATHOLOGIST MINGLER OPERATOR KOREY FRANKS M.D. Performed By: #### G LULS #### Point of Care testing , Basophils/100 WBC (Bld) 0.3 % Normal . [facility] Comment on above: Performed By: #### G LULS #### Point of Care testing , Eosinophils (Bld) [#/Vol] 0.0 10*3/uL Normal 0.0-0.45 [facility] Comment on above: Performed By: #### G LULS #### Point of Care testing , Eosinophils/100 WBC (Bld) 0.0 % Normal . [facility] Comment on above: Performed By: #### G LULS #### Point of Care testing , Erythrocyte distribution width (RBC) [Ratio] 16.8 % High 11.9-15.3 [facility] Comment on above: Performed By: #### G LULS #### Point of Care testing , Hematocrit (Bld) [Volume fraction] 32.4 % Low 34.0-46.4 [facility] Comment on above: Performed By: #### G LULS #### Point of Care testing , Hemoglobin (Bld) [Mass/Vol] 10.3 g/dL Low 11.8-15.4 [facility] Comment on above: Performed By: #### G LULS #### Point of Care testing , Lymphocytes (Bld) [#/Vol] 1.1 10*3/uL Normal 1.00-4.8 [facility] Comment on above: Performed By: #### G LULS #### Point of Care testing , Lymphocytes/100 WBC (Bld) 7.0 % Normal . [facility] Comment on above: Performed By: #### G LULS #### Point of Care testing , MCH (RBC) [Entitic mass] 26.5 pg Normal 24.7-34.3 [facility] Comment on above: Performed By: #### G LULS #### Point of Care testing , MCV (RBC) [Entitic vol] 83.3 fL Normal 80-100 [facility] Comment on above: Performed By: #### G LULS #### Point of Care testing , Mean Corpuscular HGB Conc 31.9 g/dL Low 32.0-35.0 [facility] Comment on above: Performed By: #### G LULS #### Point of Care testing , Monocytes (Bld) [#/Vol] 0.6 10*3/uL Normal 0.0-0.8 [facility] Comment on above: Performed By: #### G LULS #### Point of Care testing , Monocytes/100 WBC (Bld) 4.0 % Normal . [facility] Comment on above: Performed By: #### G LULS #### Point of Care testing , Neutrophils (Bld) [#/Vol] 14.2 10*3/uL High 1.8-7.7 [facility] Comment on above: Performed By: #### G LULS #### Point of Care testing , Neutrophils/100 WBC (Bld) 88.7 % Normal . [facility] Comment on above: Performed By: #### G LULS #### Point of Care testing , NRBC% 0.0 /100{WBC} Normal 0-0.5 [facility] Comment on above: Performed By: #### G LULS #### Point of Care testing , Platelet mean volume (Bld) [Entitic vol] 8.8 fL Normal 6.3-10.7 [facility] Comment on above: Performed By: #### G LULS #### Point of Care testing , Platelets (Bld) [#/Vol] 338 10*3/uL Normal 150-450 [facility] Comment on above: Performed By: #### G LULS #### Point of Care testing , RBC (Bld) [#/Vol] 3.89 10*6/uL Normal 3.60-5.00 [facility] Comment on above: Performed By: #### G LULS #### Point of Care testing , WBC (Bld) [#/Vol] 16.0 10*3/uL High 3.8-11.6 [facility] Comment on above: Performed By: #### G LULS #### Point of Care testing , Creatinine [Mass/volume] in Serum or PlasmaOrdered By: Luc Vargas on 03-17-2023 Creatinine [Mass/Vol] 0.91 mg/dL 0.60-1.20 [facility] Eosinophils Auto (Bld) [#/Vo l]Ordered By: Luc Vargas on 03-17-2023 Eosinophils (Bld) [#/Vol] 0.0 10*3/uL 0.0-0.45 [facility] Eosinophils/100 WBC Auto (Bl d)Ordered By: Luc Vargas on 03-17-2023 Eosinophils/100 WBC (Bld) 0.0 % . [facility] Erythrocyte distribution wid th Auto (RBC) [Ratio]Ordered By: Luc Vargas on 03-17-2023 Erythrocyte distribution width (RBC) [Ratio] 16.8 % 11.9-15.3 [facility] Glucose Poct Glucometerson 1 05-18-2022 Commemt1 Glu2: Cleaned Meter Normal [facility] Comment on above: Result Comment: PERF ORMED BY: [facility] [address] [place] [address] PATHOLOGIST MINGLER OPERATOR KOREY FRANKS M.D. Performed By: #### G LULS #### Point of Care testing , Glucose [Mass/Vol] 322 mg/dL Normal [facility] Comment on above: Result Comment: [place] [facility] Glucose Reference Range is dependent on time and content of last meal. Glucose of more than 200 mg/dL in a nonstressed, ambulatory subject supports the diagnosis of Diabetes Mellitus. Performed By: #### G LULS #### Point of Care testing , Glucose [Mass/volume] in Ser um or PlasmaOrdered By: Luc Vargas on 03-17-2023 Glucose [Mass/Vol] 315 mg/dL 70-100 [facility] Comment on above: Delta: 158 on -1035ADA recommended reference rangeRandom Glucose Reference Range is dependent on time and content of last meal. Glucose of more than 200 mg/dL in a nonstressed, ambulatory subject supports the diagnosis of Diabetes Mellitus. Hematocrit Auto (Bld) [Volum e fraction]Ordered By: Luc Vargas on 03-17-2023 Hematocrit (Bld) [Volume fraction] 32.4 % 34.0-46.4 [facility] Hemoglobin [Mass/volume] in BloodOrdered By: Luc Vargas on 03-17-2023 Hemoglobin (Bld) [Mass/Vol] 10.3 g/dL 11.8-15.4 [facility] Leukocytes [#/volume] correc huey for nucleated erythrocytes in Blood by Automated counOrdered By: Luc Vargas on 03-17-2023 WBC corrected for nucl RBC Auto (Bld) [#/Vol] 16.0 10*3/uL 3.8-11.6 [facility] Lymphocytes Auto (Bld) [#/Vo l]Ordered By: Luc Vargas on 03-17-2023 Lymphocytes (Bld) [#/Vol] 1.1 10*3/uL 1.00-4.8 [facility] Lymphocytes/100 WBC Auto (Bl d)Ordered By: Luc Vargas on 03-17-2023 Lymphocytes/100 WBC (Bld) 7.0 % . [facility] MCH Auto (RBC) [Entitic mass ]Ordered By: Luc Vargas on 03-17-2023 MCH (RBC) [Entitic mass] 26.5 pg 24.7-34.3 [facility] MCHC Auto (RBC) [Mass/Vol]Or dered By: Luc Vargas on 03-17-2023 MCHC (RBC) [Mass/Vol] 31.9 g/dL 32.0-35.0 [facility] MCV Auto (RBC) [Entitic vol] Ordered By: Luc Vargas on 03-17-2023 MCV (RBC) [Entitic vol] 83.3 fL 80-100 [facility] Monocytes Auto (Bld) [#/Vol] Ordered By: Luc Vargas on 03-17-2023 Monocytes (Bld) [#/Vol] 0.6 10*3/uL 0.0-0.8 [facility] Monocytes/100 WBC Auto (Bld) Ordered By: Luc Vargas on 03-17-2023 Monocytes/100 WBC (Bld) 4.0 % . [facility] Neutrophils Auto (Bld) [#/Vo l]Ordered By: Luc Vargas on 03-17-2023 Neutrophils (Bld) [#/Vol] 14.2 10*3/uL 1.8-7.7 [facility] Neutrophils/100 WBC Auto (Bl d)Ordered By: Luc Vargas on 03-17-2023 Neutrophils/100 WBC (Bld) 88.7 % . [facility] No Panel InformationOrdered By: Luc Vargas on 03-17-2023 Bedside Glucose Comment Glu2: cleaned meter [facility] Estimated GFR (CKD-EPI) > 60.0 mL/Min [facility] Pharmacy Creatinine Clearance (Chem 69.67 [facility] Nucleated erythrocytes [Pres ence] in Blood by Automated countOrdered By: Luc Vargas on 03-17-2023 Nucleated RBC Auto Ql (Bld) 0.0 /100{WBC} 0-0.5 [facility] Platelet mean volume Auto (B ld) [Entitic vol]Ordered By: Luc Vargas on 03-17-2023 Platelet mean volume (Bld) [Entitic vol] 8.8 fL 6.3-10.7 [facility] Platelets Auto (Bld) [#/Vol] Ordered By: Luc Vargas on 03-17-2023 Platelets (Bld) [#/Vol] 338 10*3/uL 150-450 [facility] Potassium [Moles/volume] in Serum or PlasmaOrdered By: Luc Vargas on 03-17-2023 Potassium [Moles/Vol] 4.7 mmol/L 3.5-5.1 [facility] RBC Auto (Bld) [#/Vol]Ordere d By: Luc Vargas on 03-17-2023 RBC (Bld) [#/Vol] 3.89 10*6/uL 3.60-5.00 [facility] Serum or plasma anion gap de terminationOrdered By: Luc Vargas on 03-17-2023 Anion gap [Moles/Vol] 11.1 mmol/L 6.0-15.0 [facility] Sodium [Moles/volume] in Ser um or PlasmaOrdered By: Luc Vargas on 03-17-2023 Sodium [Moles/Vol] 133 mmol/L 136-145 [facility] Comment on above: Delta: 141 on -1034 Urea nitrogen [Mass/volume] in Serum or PlasmaOrdered By: Luc Vargas on 03-17-2023 Urea nitrogen [Mass/Vol] 34 mg/dL 7-25 [facility] WBC Auto (Bld) [#/Vol]Ordere d By: Luc Varags on 03-17-2023 WBC (Bld) [#/Vol] 16.0 10*3/uL 3.8-11.6 [facility] ABO/Rh Retypeon 03-16-2023 ABO/RH Recheck Result Positive Normal [facility] Comment on above: Result Comment: PERF ORMED BY: [facility] [address] [place] [address] PATHOLOGIST MINGLER OPERATOR KOREY FRANKS M.D. Basic Metabolic Panelon 03-03 Anion gap [Moles/Vol] 11.5 mmol/L Normal 6.0-15.0 [facility] Comment on above: Performed By: #### G LULS #### Point of Care testing , Calcium [Mass/Vol] 9.2 mg/dL Normal 8.6-10.3 [facility] Comment on above: Performed By: #### G LULS #### Point of Care testing , Chloride [Moles/Vol] 108 mmol/L High 98-107 [facility] Comment on above: Performed By: #### G LULS #### Point of Care testing , CO2 [Moles/Vol] 25.8 mmol/L Normal 21.0-31.0 [facility] Comment on above: Performed By: #### G LULS #### Point of Care testing , Creatinine [Mass/Vol] 0.86 mg/dL Normal 0.60-1.20 [facility] Comment on above: Performed By: #### G LULS #### Point of Care testing , Creatinine Clr Calc Pharmacy 73.00 Normal [facility] Comment on above: Result Comment: PERF ORMED BY: [facility] [address] [place] [address] PATHOLOGIST MINGLER OPERATOR KOREY FRANKS M.D. Performed By: #### G SARIKALS #### Point of Care testing , GFR/1.73 sq M.predicted MDRD (S/P/Bld) [Vol rate/Area] mL/min/{1.73_m2} Normal [facility] Comment on above: Performed By: #### G LULS #### Point of Care testing , Glucose [Mass/Vol] 158 mg/dL High 70-100 [facility] Comment on above: Result Comment: [facility] Glucose Reference Range is dependent on time and content of last meal. Glucose of more than 200 mg/dL in a nonstressed, ambulatory subject supports the diagnosis of Diabetes Mellitus. ADA recommended reference range Performed By: #### G LULS #### Point of Care testing , Potassium [Moles/Vol] 4.3 mmol/L Normal 3.5-5.1 [facility] Comment on above: Performed By: #### G LULS #### Point of Care testing , Sodium [Moles/Vol] 141 mmol/L Normal 136-145 [facility] Comment on above: Performed By: #### G LULS #### Point of Care testing , Urea nitrogen [Mass/Vol] 32 mg/dL High 7-25 [facility] Comment on above: Performed By: #### G LULS #### Point of Care testing , Complete Blood Count Auto Di ffon 03-16-2023 Basophils (Bld) [#/Vol] 0.1 10*3/uL Normal 0.0-0.2 [facility] Comment on above: Result Comment: PERF ORMED BY: [address] [address] PATHOLOGIST MINGLER OPERATOR KOREY FRANKS M.D. Performed By: #### B MP, CBC #### [address] [address] [facility] Basophils/100 WBC (Bld) 1.1 % Normal . [facility] Comment on above: Performed By: #### B MP, CBC #### [facility] [address] Eosinophils (Bld) [#/Vol] 0.3 10*3/uL Normal 0.0-0.45 [facility] Comment on above: Performed By: #### B MP, CBC #### [address] Eosinophils/100 WBC (Bld) 2.3 % Normal . [facility] Comment on above: Performed By: #### B MP, CBC #### [address] Erythrocyte distribution width (RBC) [Ratio] 17.2 % High 11.9-15.3 [facility] Comment on above: Performed By: #### B MP, CBC #### [address] Hematocrit (Bld) [Volume fraction] 36.5 % Normal 34.0-46.4 [facility] Comment on above: Performed By: #### B MP, CBC #### [address] Hemoglobin (Bld) [Mass/Vol] 12.0 g/dL Normal 11.8-15.4 [facility] Comment on above: Performed By: #### B MP, CBC #### [address] Lymphocytes (Bld) [#/Vol] 1.9 10*3/uL Normal 1.00-4.8 [facility] Comment on above: Performed By: #### B MP, CBC #### [place] [address] [place] Lymphocytes/100 WBC (Bld) 17.5 % Normal . [facility] Comment on above: Performed By: #### B MP, CBC #### [address] MCH (RBC) [Entitic mass] 27.3 pg Normal 24.7-34.3 [facility] Comment on above: Performed By: #### B MP, CBC #### [address] [place] [address] [place] MCV (RBC) [Entitic vol] 82.8 fL Normal 80-100 [facility] Comment on above: Performed By: #### B MP, CBC #### [address] Mean Corpuscular HGB Conc 33.0 g/dL Normal 32.0-35.0 [facility] Comment on above: Performed By: #### B MP, CBC #### [address] Monocytes (Bld) [#/Vol] 0.6 10*3/uL Normal 0.0-0.8 [facility] Comment on above: Performed By: #### B MP, CBC #### [address] Monocytes/100 WBC (Bld) 5.8 % Normal . [facility] Comment on above: Performed By: #### B MP, CBC #### [address] Neutrophils (Bld) [#/Vol] 8.1 10*3/uL High 1.8-7.7 [facility] Comment on above: Performed By: #### B MP, CBC #### [address] Neutrophils/100 WBC (Bld) 73.3 % Normal . [facility] Comment on above: Performed By: #### B MP, CBC #### [address] NRBC% 0.0 /100{WBC} Normal 0-0.5 [facility] Comment on above: Performed By: #### B MP, CBC #### [address] Platelet mean volume (Bld) [Entitic vol] 8.6 fL Normal 6.3-10.7 [facility] Comment on above: Performed By: #### B MP, CBC #### [address] Platelets (Bld) [#/Vol] 354 10*3/uL Normal 150-450 [facility] Comment on above: Performed By: #### B MP, CBC #### [address] RBC (Bld) [#/Vol] 4.40 10*6/uL Normal 3.60-5.00 [facility] Comment on above: Performed By: #### B MP, CBC #### [address] WBC (Bld) [#/Vol] 11.0 10*3/uL Normal 3.8-11.6 [facility] Comment on above: Performed By: #### B MP, CBC #### [address] ECG 12 lead ECGon 03-16-2023 ECG 12 lead ECG [facility] [place] [address] [place] [address] Electrocardiograph Report Signed Patient: Venancio Nelson MR#: [id number] : 1960 Acct:[id number] Age/Sex: 62 / F ADM Date: 03/16/23 Loc: Room: 0N0913-9 Type: ADM IN Attending Dr: Luc Vargas [...] Signed By Celsa Cho MD 2141 Normal [facility] Glucose Poct Glucometerson 1 2-14-2023 Glucose [Mass/Vol] 347 mg/dL Normal [facility] Comment on above: Result Comment: [facility] Glucose Reference Range is dependent on time and content of last meal. Glucose of more than 200 mg/dL in a nonstressed, ambulatory subject supports the diagnosis of Diabetes Mellitus. PERFORMED BY: [facility] [address] [facility] [place] [address] PATHOLOGIST MINGLER OPERATOR KOREY FRANKS M.D. Performed By: #### G LULS #### Point of Care testing , Glucose [Mass/Vol] 201 mg/dL Normal [facility] Comment on above: Result Comment: [facility] Glucose Reference Range is dependent on time and content of last meal. Glucose of more than 200 mg/dL in a nonstressed, ambulatory subject supports the diagnosis of Diabetes Mellitus. PERFORMED BY: [facility] [address] [facility] [place] [address] PATHOLOGIST MINGLER OPERATOR KOREY FRANKS M.D. Performed By: #### G LULS #### Point of Care testing , Glucose [Mass/Vol] 167 mg/dL Normal [facility] Comment on above: Result Comment: [facility] Glucose Reference Range is dependent on time and content of last meal. Glucose of more than 200 mg/dL in a nonstressed, ambulatory subject supports the diagnosis of Diabetes Mellitus. PERFORMED BY: [facility] [address] [facility] [place] [address] PATHOLOGIST MINGLER OPERATOR KOREY FRANKS M.D. Performed By: #### G LULS #### Point of Care testing , [facility] 03-16-2023 L - -------- Specimen: [id number] Received: 03/17/23 Status: HAWK [place] Num: [id number] Spec Type: Surgical Subm Dr: Amy Nicole II, MD Tissues: A Plaque - Atheromatous (LT GROIN) Procedures: HE, Gross/Micro L3, Decalcification -------- Age/ Patient Sex Location Account Attending Physician -------- Venancio Nelson 62/F 4N [id number] Luc Vargas MD -------- SPEC NUM: [id number] RECD: 03/17/23 STATUS: HAWK REPooja NUM: [id number] STEPH: 03/16/23- SUBM DR: Amy Nicole II, MD ENTERED: 03/17/23 [facility] DR: CHARY TYPE: Surgical DEPT: S ENTERED BY: [id number] RECV BY: [id number] ORDERED: HE, Gross/Micro L3, Decalcification ORDERED: HE, Gross/Micro L3, Decalcification Pathological Diagnosis Plaque, Removal: Atherosclerotic Plaque. Clinical Information PVD with gangrene Gross Description Received in formalin labeled with the patient's name, date of and plaque is a 3.0 x 2.5 x 2.0 cm aggregate of yellow-gilbert membranous tissues with yellow-gilbert, calcified areas on cut section. Breaker Table Worker are submitted following decalcification in one cassette labeled A1. Microscopic Description One H E slide reviewed. The microscopic examination confirms the diagnosis. CPT Codes 04642, 38254 -------- -------- Specimen: [id number] Received: 03/17/23 Status: HAWK Tish Num: [id number] Spec Type: Surgical Subm Dr: Amy Nicole II, MD Tissues: A Plaque - Atheromatous (LT GROIN) Procedures: SYED Gross/Micro L3, Decalcification -------- Patient: Venancio Nelson [id number] (Continued) -------- Signed (signature on file) Lincoln Deleon MD 03/20/232018 Normal [facility] Type and Screenon 03-16-2023 ABO and Rh group Nom (Bld) Blood group B Rh(D) positive Normal [facility] Comment on above: Order Comment: NO TI ME OF DRAW ON TUBE. 2 SETS OF INITIALS 'CL' ON TUBE. SHIRLEY/AVRIL WHO LANCE PATIENT SAID SHE LANCE SAMPLE AT 1035. JMP Result Comment: PERF ORMED BY: [place] [address] PATHOLOGIST MINGLER OPERATOR KOREY FRANKS M.D. Blood Urea Nitrogenon 2022 Urea nitrogen [Mass/Vol] 23 mg/dL Normal 7-25 [facility] Comment on above: Order Comment: STAT FOR SPECIALS Performed By: #### B UN, CREAT #### [facility] [address] [place] [address] [place] Creatinineon 03-01-2023 Creatinine [Mass/Vol] 0.85 mg/dL Normal 0.60-1.20 [facility] Comment on above: Order Comment: STAT FOR SPECIALS Performed By: #### B UN, CREAT #### [place] [id number] [place] Creatinine Clr Calc Pharmacy 73.86 Normal [facility] Comment on above: Order Comment: STAT FOR SPECIALS Result Comment: PERF ORMED BY: [place] [address] PATHOLOGIST MINGLER OPERATOR KOREY FRANKS M.D. Performed By: #### B UN, CREAT #### [facility] [address] [place], [place] [id number] [place] GFR/1.73 sq M.predicted MDRD (S/P/Bld) [Vol rate/Area] mL/min/{1.73_m2} Normal [facility] Comment on above: Order Comment: STAT FOR SPECIALS Performed By: #### B UN, CREAT #### [facility] [address] [id number] [facility] Creatinine [Mass/volume] in Serum or PlasmaOrdered By: Luc Vargas on 03-01-2023 Creatinine [Mass/Vol] 0.85 mg/dL 0.60-1.20 [facility] No Panel InformationOrdered By: Luc Vargas on 03-01-2023 Estimated GFR (CKD-EPI) > 60.0 mL/Min [facility] Creatinine Clearance (Chem 73.86 [facility] Urea nitrogen [Mass/volume] in Serum or PlasmaOrdered By: Luc Vargas on 03-01-2023 Urea nitrogen [Mass/Vol] 23 mg/dL 10-25 [facility] Heart and Vascular Office/Cl inic Noteon 02-25-2023 Heart and Vascular Office/Clinic Note Normal [facility] Comment on above: Result Comment: Elec tronically Signed By: Rik MISTRY, Felix Vann\.br\Date and Time Signed: 02/25/23 09:59 EST\.br\Electronically Co-Signed By: Bacilio Patel\.br\Date and Time Co-Signed: 12/08/22 16:49 EDT US PVR Lower EXT Complete Bi laton 02-01-2023 US PVR Lower EXT Complete Bilat Normal [facility] Consent for Treatmenton 01-03 Consent for Treatment [id number]#1 .00TIFF Normal [facility] Physician Orderon 01-30-2023 Physician Order [id number]#1 .00TIFF [facility] C [place] 01-26-2023 Wound Culture Normal [facility] Comment on above: Performed By: #### 2 [id number] ####[facility] [address] [place] [address] Consultation Noteon 01-26-20 Consultation Note [id number]#1 .00TIFF [facility] Physician Orderon 01-24-2023 Physician Order [id number]#1 .00TIFF [facility] Consent for Flu Vaccineon Consent for Flu Vaccine [id number]#1 .00TIFF [facility] ED Note-Physicianon 01-19-20 ED Note-Physician [id number]#1 .00TIFF [facility] Physician Referralon 023 Physician Referral [id number]# 1.00TIFF [facility] Ambulatory Visit Summaryon Ambulatory Visit Summary [facility] Family Medicine Office/Clini c Noteon 01-17-2023 Family Medicine Office/Clinic Note [facility] Comment on above: Result Comment: Elec tronically Signed By: Lázaro Riddle MD\.br\Date and Time Signed: 01/17/23 14:40 EDT ED Note-Physicianon 01-17-20 ED Note-Physician [id number]#1 .00TIFF [facility] ED Note-Physicianon 01-15-20 ED Note-Physician [facility] Comment on above: Result Comment: Elec tronically Signed By: Cali Sutton PA-C\.br\Date and Time Signed: 01/13/23 16:35 EDT\.br\Electronically Co-Signed By: Alejandro Gongora DO\.br\Date and Time Co-Signed: 01/14/23 07:44 EDT Ambulatory Visit Summaryon Ambulatory Visit Summary [facility] Consent for Treatmenton 01-01 Consent for Treatment [id number]#1 .00TIFF [facility] Discharge Instructionson Discharge Instructions [id number]# 1.00TIFF Normal [facility] ED Clinical Summaryon 2022 ED Clinical Summary Normal [facility] ED Patient Education Noteon 01-13-2023 ED Patient Education Note Normal [facility] ED Patient Summaryon 023 ED Patient Summary Normal [facility] Family Medicine Office/Clini c Noteon 01-13-2023 Family Medicine Office/Clinic Note Normal [facility] Comment on above: Result Comment: Elec tronically Signed By: Lázaro Riddle MD\.br\Date and Time Signed: 01/13/23 12:02 EDT Patient Educationon 01-14-20 Patient Education Normal [facility] Pre-Arrival Noteon Pre-Arrival Note Normal [facility] Family Medicine Office/Clini c Noteon 01-03-2023 [facility] Medicine Office/Clinic Note Normal [facility] Comment on above: Result Comment: Elec tronically Signed By: Lázaro Riddle MD\.br\Date and Time Signed: 01/03/23 11:22 EDT\.br\Electronically Co-Signed By: Mima Davis\.br\Date and Time Co-Signed: 01/02/23 15:14 EDT Ambulatory Visit Summaryon Ambulatory Visit Summary [facility] Insurance Correspondenceon 0 12-14-2022 Insurance Correspondence [id number]# 1.00CD:127 Normal [facility] Insurance Correspondence [id number]# 1.00CD:127 Normal [facility] Physician Orderon 12-09-2022 Physician Order [id number] 0 [id number]# 1.00CD:127 [facility] Physician Order [id number]# 1.00CD:127 Normal [facility] Ambulatory Visit Summaryon 0 12-08-2022 Ambulatory Visit Summary Normal [facility] Consent for Treatmenton Consent for Treatment [id number]#1 .00CD:127 Normal [facility] Family Medicine Office/Clini c Noteon 11-16-2022 Family Medicine Office/Clinic Note Normal [facility] Comment on above: Result Comment: Elec tronically Signed By: Venkatesh MISTRY, Lázaro Tongbr\Date and Time Signed: 11/16/22 13:53 EDT Physician Referralon 023 Physician Referral [id number]# 1.00CD:127 Normal [facility] Outside Diabetes Eye Examon 09-01-2022 Outside Diabetes Eye Exam [id number]#1 .00CD:127 Normal [facility] CBC AUTO DIFFon 06-25-2022 BASO # 0.1 103/ul Normal 0.0-0.1 [facility] Comment on above: Performed By: #### C BC #### [facility] [address] [place] [address] Dr. David Swann Basophils/100 WBC (Bld) 1.1 % Normal 0.2-2.0 [facility] Comment on above: Performed By: #### C BC #### [facility] [address] [place] [address] Dr. David Swann EO # 0.3 103/ul Normal 0.0-0.7 [facility] Comment on above: Performed By: #### C BC #### [facility] [address] [address] [address] David Swann Eosinophils/100 WBC (Bld) 2.8 % Normal 0.9-7.0 [facility] Comment on above: Performed By: #### C BC #### [facility] [address] [address] [address] David Swann Erythrocyte distribution width (RBC) [Ratio] 15.9 % Critically high 11.0-15.0 [facility] Comment on above: Performed By: #### C BC #### [facility] [address] [place] [address] Dr. David Swann Hematocrit (Bld) [Volume fraction] 34.4 % Critically low 36.0-48.0 [facility] Comment on above: Performed By: #### C BC #### [facility] [address] [place] [address] Dr. David Swann Hemoglobin (Bld) [Mass/Vol] 10.5 g/dL Critically low 12.0-16.0 [facility] Comment on above: Performed By: #### C BC #### [facility] [address] [place] [address] Dr. David Swann IG # 0.05 10e3/ul Critically high 0.00-0.03 [facility] Comment on above: Performed By: #### C BC #### [facility] [address] [place] [address] Dr. David Swann IG % 0.5 % Normal 0.0-0.5 [facility] Comment on above: Performed By: #### C BC #### [facility] [address] [place] [address] Dr. David Swann LYMPH # 2.8 103/ul Normal 1.2-3.8 [facility] Comment on above: Performed By: #### C BC #### [facility] [address] [place] [address] Dr. David Swann Lymphocytes/100 WBC (Bld) 26.7 % Normal 20.5-60.0 [facility] Comment on above: Performed By: #### C BC #### [facility] [address] [place] [address] Dr. David Swann MANUAL DIFF REQ NO Normal [facility] Comment on above: Performed By: #### C BC #### [facility] [address] [place] [address] Dr. David Swann MCH (RBC) [Entitic mass] 23.9 pg Critically low 26.7-34.0 [facility] Comment on above: Performed By: #### C BC #### [facility] [address] [place] [address] Dr. David Swann MCHC (RBC) [Mass/Vol] 30.5 g/dL Normal 29.9-35.2 [facility] Comment on above: Performed By: #### C BC #### [facility] [address] [place] [address] Dr. David Swann MCV (RBC) [Entitic vol] 78.2 fL Critically low 81.0-99.0 [facility] Comment on above: Performed By: #### C BC #### [facility] [address] [place] [address] Dr. David Swann MONO # 0.7 103/ul Normal 0.3-0.8 [facility] Comment on above: Performed By: #### C BC #### [facility] [address] [place] [address] Dr. David Swann Monocytes/100 WBC (Bld) 6.4 % Normal 1.7-12.0 [facility] Comment on above: Performed By: #### C BC #### [facility] [address] [place] [address] Dr. David Swann NEUT # 6.5 103/ul Normal 1.4-6.5 [facility] Comment on above: Performed By: #### C BC #### [facility] [address] [place] [address] Dr. David Swann Neutrophils/100 WBC (Bld) 62.5 % Normal 43.0-75.0 [facility] Comment on above: Performed By: #### C BC #### [facility] [address] [place] [address] Dr. David Swann Platelet mean volume (Bld) [Entitic vol] 10.1 fL Normal 9.5-13.5 [facility] Comment on above: Performed By: #### C BC #### [facility] [address] [place] [address] Dr. David Swann PLT 441 103/ul Normal 150-450 [facility] Comment on above: Performed By: #### C BC #### [facility] [address] [place] [address] Dr. David Swann RBC 4.40 106/ul Normal 4.20-5.40 [facility] Comment on above: Performed By: #### C BC #### [facility] [address] [place] [address] Dr. David Swann WBC 10.4 103/ul Normal 4.0-11.0 [facility] Comment on above: Performed By: #### C BC #### [facility] [address] [place] [address] Dr. David Swann GLYCOHEMOGLOBIN A1Con 2022 ADA RECOMMENDATION SEE BELOW Normal [facility] Comment on above: Result Comment: ADA RECOMMENDED LIMIT 4.0 - 6.0 ADA THERAPEUTIC TARGET < 7.0 ACTION SUGGESTED > 7.0 Performed By: #### A 1C #### [facility] [address] [place] [address] Dr. David Swann Glucose [Mass/Vol] 151 mg/dL Normal [facility] Comment on above: Performed By: #### A 1C #### [facility] [address] [place] [address] Dr. David Swann HbA1c (Bld) [Mass fraction] 6.9 % Critically high 4.5-6.2 [facility] Comment on above: Performed By: #### A 1C #### [facility] [address] [place] [address] Dr. David Swann LIPID PROFILEon 06-25-2022 CHOL-HDL RATIO NORM SEE BELOW Normal [facility] Comment on above: Result Comment: 3.3 - 4.4 LOW RISK 4.4 - 7.1 AVERAGE RISK 7.1 - 11.0 MODERATE RISK >11.0 HIGH RISK Performed By: #### C MP, LIPID #### [facility] [address] [place] [address] Dr. David Swann Cholesterol [Mass/Vol] 125 mg/dL Normal <=200 [facility] Comment on above: Performed By: #### C MP, LIPID #### [facility] [address] [place] [address] Dr. David Swann Cholesterol in HDL [Mass/Vol] 29 mg/dL Critically low 40-60 [facility] Comment on above: Performed By: #### C MP, LIPID #### [facility] [address] [address] [address] David Swann Cholesterol in LDL [Mass/Vol] 85.6 mg/dL Normal [facility] Comment on above: Performed By: #### C MP, LIPID #### [facility] [address] [address] [address] David Swann Cholesterol.total/Cho lesterol in HDL [Mass ratio] 4.3 {ratio} Normal [facility] Comment on above: Performed By: #### C MP, LIPID #### [facility] [address] [address] [address] David Swann HDL NORMAL > or = 60 mg/dl - LO W CARDIOVASCULAR RISK <40 mg/dl - HIGH CARDIOVASCULAR RISK Normal [facility] Comment on above: Performed By: #### C MP, LIPID #### [facility] [address] [address] [address] David Swann LDL CALC NORMAL SEE BELOW Normal [facility] Comment on above: Result Comment: <100 mg/dl OPTIMAL 100 - 129 mg/dl NEAR OR ABOVE OPTIMAL 130 - 159 mg/dl BORDERLINE HIGH 160 - 189 mg/dl HIGH >190 mg/dl VERY HIGH Performed By: #### C MP, LIPID #### [facility] [address] [address] [address] David Swann Triglyceride [Mass/Vol] 52 mg/dL Normal <=150 [facility] Comment on above: Performed By: #### C MP, LIPID #### [facility] [address] [address] [address] David Swann VLDL CALC 10.4 mg/dL Normal [facility] Comment on above: Performed By: #### C MP, LIPID #### [facility] [address] [address] [address] David Swann PROF 14(COMP METB)on 023 Albumin [Mass/Vol] 3.0 g/dL Critically low 3.4-5.0 [facility] Comment on above: Performed By: #### C MP, LIPID #### [facility] [address] [address] [address] David Swann Albumin/Globulin [Mass ratio] 0.6 {ratio} Normal [facility] Comment on above: Performed By: #### C MP, LIPID #### [facility] [address] [address] [address] David Swann ALP [Catalytic activity/Vol] 79 U/L Normal 46-116 [facility] Comment on above: Performed By: #### C MP, LIPID #### [facility] [address] [address] [address] David Swann ALT [Catalytic activity/Vol] 14 U/L Normal 14-59 [facility] Comment on above: Performed By: #### C MP, LIPID #### [facility] [address] [place] [address] Dr. David Swann Anion gap [Moles/Vol] 12.1 mmol/L Normal [facility] Comment on above: Performed By: #### C MP, LIPID #### [facility] [address] [place] [address] Dr. David Swann AST [Catalytic activity/Vol] 12 U/L Critically low 15-37 [facility] Comment on above: Performed By: #### C MP, LIPID #### [facility] [address] [place] [address] Dr. David Swann Bilirubin [Mass/Vol] 0.3 mg/dL Normal 0.2-1.0 [facility] Comment on above: Performed By: #### C MP, LIPID #### [facility] [address] [place] [address] Dr. David Swann Calcium [Mass/Vol] 9.2 mg/dL Normal 8.5-10.1 [facility] Comment on above: Performed By: #### C MP, LIPID #### [facility] [address] [place] [address] Dr. David Swann Chloride [Moles/Vol] 103 mmol/L Normal 98-107 [facility] Comment on above: Performed By: #### C MP, LIPID #### [facility] [address] [address] [address] David Swann CO2 [Moles/Vol] 27.8 mmol/L Normal 21.0-32.0 [facility] Comment on above: Performed By: #### C MP, LIPID #### [facility] [address] [place] [address] Dr. David Swann Creatinine [Mass/Vol] 0.81 mg/dL Normal 0.55-1.02 [facility] Comment on above: Performed By: #### C MP, LIPID #### [facility] [address] [place] [address] Dr. David Swann EGFR-AF [place] >60 Normal >=60 [facility] Comment on above: Performed By: #### C MP, LIPID #### [facility] [address] [place] [address] Dr. David Swann EGFR-NON AF [place] >60 Normal >=60 [facility] Comment on above: Performed By: #### C MP, LIPID #### [facility] [address] [place] [address] Dr. David Swann Globulin (S) [Mass/Vol] 4.8 g/dL Normal [facility] Comment on above: Performed By: #### C MP, LIPID #### [facility] [address] [place] [address] Dr. David Swann Glucose [Mass/Vol] 78 mg/dL Normal 74-106 [facility] Comment on above: Performed By: #### C MP, LIPID #### [facility] [address] [place] [address] Dr. David Swann Potassium [Moles/Vol] 3.9 mmol/L Normal 3.5-5.1 [facility] Comment on above: Performed By: #### C MP, LIPID #### [facility] [address] [place] [address] Dr. David Swann Protein [Mass/Vol] 7.8 g/dL Normal 6.4-8.2 [facility] Comment on above: Performed By: #### C MP, LIPID #### [facility] [address] [place] [address] Dr. David Swann Sodium [Moles/Vol] 139 mmol/L Normal 136-145 [facility] Comment on above: Performed By: #### C MP, LIPID #### [facility] [address] [address] [address] David Swann Urea nitrogen [Mass/Vol] 23.0 mg/dL Critically high 7.0-18.0 [facility] Comment on above: Performed By: #### C MP, LIPID #### [facility] [address] [address] [address] David Swann Urea nitrogen/Creatinine [Mass ratio] 28.4 mg/mg Normal [facility] Comment on above: Performed By: #### C MP, LIPID #### [facility] [address] [place] [address] Dr. David Swann PROF CHEM 8 (BAS METB)on Anion gap [Moles/Vol] 14.8 mmol/L Normal [facility] Comment on above: Performed By: #### P OCGLUC #### [facility] [address] [address] [address] David Swann Calcium [Mass/Vol] 9.2 mg/dL Normal 8.5-10.1 [facility] Comment on above: Performed By: #### P OCGLUC #### [facility] [address] [place] [address] Dr. David Swann Chloride [Moles/Vol] 105 mmol/L Normal 98-107 [facility] Comment on above: Performed By: #### P OCGLUC #### [facility] [address] [address] [address] David Swann CO2 [Moles/Vol] 26.7 mmol/L Normal 21.0-32.0 [facility] Comment on above: Performed By: #### P OCGLUC #### [facility] [address] [place] [address] Dr. David Swann Creatinine [Mass/Vol] 0.97 mg/dL Normal 0.55-1.02 [facility] Comment on above: Performed By: #### P OCGLUC #### [facility] [address] [address] [address] David Swann EGFR-AF [place] >60 Normal >=60 [facility] Comment on above: Performed By: #### P OCGLUC #### [facility] [address] [address] [address] David Swann EGFR-NON AF [place] 58 mL/min/1.73m2 Critically low >=60 [facility] Comment on above: Performed By: #### P OCGLUC #### [facility] [address] [address] [address] David Swann Glucose [Mass/Vol] 125 mg/dL Critically high 74-106 [facility] Comment on above: Performed By: #### P OCGLUC #### [facility] [address] [address] [address] David Swann Potassium [Moles/Vol] 4.5 mmol/L Normal 3.5-5.1 [facility] Comment on above: Performed By: #### P OCGLUC #### [facility] [address] [address] [address] David Swann Sodium [Moles/Vol] 142 mmol/L Normal 136-145 [facility] Comment on above: Performed By: #### P OCGLUC #### [facility] [address] [address] [address] David Swann Urea nitrogen [Mass/Vol] 31.0 mg/dL Critically high 7.0-18.0 [facility] Comment on above: Performed By: #### P OCGLUC #### [facility] [address] [address] [address] David Swann Urea nitrogen/Creatinine [Mass ratio] 32.0 mg/mg Normal [facility] Comment on above: Performed By: #### P OCGLUC #### [facility] [address] [address] [address] David Swann CBC AUTO DIFFon 11-18-2021 BASO # 0.0 103/ul Normal 0.0-0.1 [facility] Comment on above: Performed By: #### C BC #### [facility] [address] [address] [address] David Swann Basophils/100 WBC (Bld) 0.6 % Normal 0.2-2.0 [facility] Comment on above: Performed By: #### C BC #### [facility] [address] [place] [address] Dr. David Swann EO # 0.2 103/ul Normal 0.0-0.7 [facility] Comment on above: Performed By: #### C BC #### [facility] [address] [place] [address] Dr. David Swann Eosinophils/100 WBC (Bld) 3.5 % Normal 0.9-7.0 [facility] Comment on above: Performed By: #### C BC #### [facility] [address] [place] [address] Dr. David Swann Erythrocyte distribution width (RBC) [Ratio] 15.9 % Critically high 11.0-15.0 [facility] Comment on above: Performed By: #### C BC #### [facility] [address] [place] [address] Dr. David Swann Hematocrit (Bld) [Volume fraction] 33.6 % Critically low 36.0-48.0 [facility] Comment on above: Performed By: #### C BC #### [facility] [address] [place] [address] Dr. David Swann Hemoglobin (Bld) [Mass/Vol] 10.1 g/dL Critically low 12.0-16.0 [facility] Comment on above: Performed By: #### C BC #### [facility] [address] [place] [address] Dr. David Swann IG # 0.01 10e3/ul Normal 0.00-0.03 [facility] Comment on above: Performed By: #### C BC #### [facility] [address] [place] [address] Dr. David Swann IG % 0.1 % Normal 0.0-0.5 [facility] Comment on above: Performed By: #### C BC #### [facility] [address] [address] [address] David Swann LYMPH # 2.0 103/ul Normal 1.2-3.8 [facility] Comment on above: Performed By: #### C BC #### [facility] [address] [address] [address] David Swann Lymphocytes/100 WBC (Bld) 28.5 % Normal 20.5-60.0 [facility] Comment on above: Performed By: #### C BC #### [facility] [address] [place] [address] Dr. David Swann MANUAL DIFF REQ NO Normal [facility] Comment on above: Performed By: #### C BC #### [facility] [address] [place] [address] Dr. David Swann MCH (RBC) [Entitic mass] 25.7 pg Critically low 26.7-34.0 [facility] Comment on above: Performed By: #### C BC #### [facility] [address] [place] [address] Dr. David Swann MCHC (RBC) [Mass/Vol] 30.1 g/dL Normal 29.9-35.2 [facility] Comment on above: Performed By: #### C BC #### [facility] [address] [place] [address] Dr. David Swann MCV (RBC) [Entitic vol] 85.5 fL Normal 81.0-99.0 [facility] Comment on above: Performed By: #### C BC #### [facility] [address] [place] [address] Dr. David Swann MONO # 0.5 103/ul Normal 0.3-0.8 [facility] Comment on above: Performed By: #### C BC #### [facility] [address] [place] [address] Dr. David Swann Monocytes/100 WBC (Bld) 6.7 % Normal 1.7-12.0 [facility] Comment on above: Performed By: #### C BC #### [facility] [address] [address] [address] David Swann NEUT # 4.1 103/ul Normal 1.4-6.5 [facility] Comment on above: Performed By: #### C BC #### [facility] [address] [place] [address] Dr. David Swann Neutrophils/100 WBC (Bld) 60.6 % Normal 43.0-75.0 [facility] Comment on above: Performed By: #### C BC #### [facility] [address] [place] [address] Dr. David Swann Platelet mean volume (Bld) [Entitic vol] 10.3 fL Normal 9.5-13.5 [facility] Comment on above: Performed By: #### C BC #### [facility] [address] [place] [address] Dr. David Swann PLT 268 103/ul Normal 150-450 [facility] Comment on above: Performed By: #### C BC #### [facility] [address] [place] [address] Dr. David Swann RBC 3.93 106/ul Critically low 4.20-5.40 [facility] Comment on above: Performed By: #### C BC #### [facility] [address] [place] [address] Dr. David Swann WBC 6.8 103/ul Normal 4.0-11.0 [facility] Comment on above: Performed By: #### C BC #### [facility] [address] [place] [address] Dr. David Swann IRON AND TIBCon 11-18-2021 % SATURATION 18.8 % Normal [facility] Comment on above: Performed By: #### F ETIBC, B12FOL #### [facility] [address] [place] [address] Dr. David Swann Iron [Mass/Vol] 58.0 ug/dL Normal 50.0-170.0 [facility] Comment on above: Performed By: #### F ETIBC, B12FOL #### [facility] [address] [place] [address] Dr. David Swann TIBC DIRECT 308.0 ug/dL Normal 250.0-450.0 [facility] Comment on above: Performed By: #### F ETIBC, B12FOL #### [facility] [address] [address] [address] David Swann POINT OF CARE GLUCOSEon 11-01 Glucose [Mass/Vol] 136 mg/dL Critically high 74-[address] [facility] Comment on above: Performed By: #### F ETIBC, B12FOL #### [facility] [address] [address] [address] David Swann PROF 14(COMP METB)on 022 Albumin [Mass/Vol] 2.9 g/dL Critically low 3.4-5.0 [facility] Comment on above: Performed By: #### F ETIBC, B12FOL #### [facility] [address] [address] [address] David Swann Albumin/Globulin [Mass ratio] 0.7 {ratio} Normal [facility] Comment on above: Performed By: #### F ETIBC, B12FOL #### [facility] [address] [address] [address] Daivd Swann ALP [Catalytic activity/Vol] 67 U/L Normal 46-116 [facility] Comment on above: Performed By: #### F ETIBC, B12FOL #### [facility] [address] [address] [address] David Swann ALT [Catalytic activity/Vol] 13 U/L Critically low 14-59 [facility] Comment on above: Performed By: #### F ETIBC, B12FOL #### [facility] [address] [address] [address] David Swann Anion gap [Moles/Vol] 10.3 mmol/L Normal [facility] Comment on above: Performed By: #### F ETIBC, B12FOL #### [facility] [address] [address] [address] David Swann AST [Catalytic activity/Vol] 12 U/L Critically low 15-37 [facility] Comment on above: Performed By: #### F ETIBC, B12FOL #### [facility] [address] [address] [address] David Swann Bilirubin [Mass/Vol] 0.3 mg/dL Normal 0.2-1.0 [facility] Comment on above: Performed By: #### F ETIBC, B12FOL #### [facility] [address] [place] [address] Dr. David Swann Calcium [Mass/Vol] 8.8 mg/dL Normal 8.5-10.1 [facility] Comment on above: Performed By: #### F ETIBC, B12FOL #### [facility] [address] [place] [address] Dr. David Swann Chloride [Moles/Vol] 105 mmol/L Normal 98-107 [facility] Comment on above: Performed By: #### F ETIBC, B12FOL #### [facility] [address] [place] [address] Dr. David Swann CO2 [Moles/Vol] 30.4 mmol/L Normal 21.0-32.0 [facility] Comment on above: Performed By: #### F ETIBC, B12FOL #### [facility] [address] [place] [address] Dr. David Swann Creatinine [Mass/Vol] 0.96 mg/dL Normal 0.55-1.02 [facility] Comment on above: Performed By: #### F ETIBC, B12FOL #### [facility] [address] [place] [address] Dr. David Swann EGFR-AF [place] >60 Normal >=60 [facility] Comment on above: Performed By: #### F ETIBC, B12FOL #### [facility] [address] [place] [address] Dr. David Swann EGFR-NON AF [place] 59 mL/min/1.73m2 Critically low >=60 [facility] Comment on above: Performed By: #### F ETIBC, B12FOL #### [facility] [address] [place] [address] Dr. David Swann Globulin (S) [Mass/Vol] 4.0 g/dL Normal [facility] Comment on above: Performed By: #### F ETIBC, B12FOL #### [facility] [address] [address] [address] David Swann Glucose [Mass/Vol] 59 mg/dL Critically low 74-106 [facility] Comment on above: Performed By: #### F ETIBC, B12FOL #### [facility] [address] [address] [address] David Swann Potassium [Moles/Vol] 3.7 mmol/L Normal 3.5-5.1 [facility] Comment on above: Performed By: #### F ETIBC, B12FOL #### [facility] [address] [address] [address] David Swann Protein [Mass/Vol] 6.9 g/dL Normal 6.4-8.2 [facility] Comment on above: Performed By: #### F ETIBC, B12FOL #### [facility] [address] [address] [address] David Swann Sodium [Moles/Vol] 142 mmol/L Normal 136-145 [facility] Comment on above: Performed By: #### F ETIBC, B12FOL #### [facility] [address] [place] [address] Dr. David Swann Urea nitrogen [Mass/Vol] 30.0 mg/dL Critically high 7.0-18.0 [facility] Comment on above: Performed By: #### F ETIBC, B12FOL #### [facility] [address] [place] [address] Dr. David Swann Urea nitrogen/Creatinine [Mass ratio] 31.2 mg/mg Normal [facility] Comment on above: Performed By: #### F ETIBC, B12FOL #### [facility] [address] [address] [address] David Swann VIT B12 AND FOLATEon 022 Cobalamin (Vitamin B12) [Mass/Vol] 292.0 pg/mL Normal 193.0-986.0 [facility] Comment on above: Performed By: #### F ETIBC, B12FOL #### [facility] [address] [place] [address] Dr. David Swann FOLATE 13.80 ng/mL Normal 8.60-58.90 [facility] Comment on above: Performed By: #### F ETIBC, B12FOL #### [facility] [address] [place] [address] Dr. David Swann BNPon 11-17-2021 Natriuretic peptide B (Bld) [Mass/Vol] 1956.0 pg/mL Critically high <=900.0 [facility] Comment on above: Performed By: #### B BLOW OFF WORKER #### [facility] [address] [place] [address] Dr. David Swann CBC AUTO DIFFon 11-17-2021 BASO # 0.1 103/ul Normal 0.0-0.1 [facility] Comment on above: Performed By: #### C BC #### [facility] [address] [place] [address] Dr. David Swann Basophils/100 WBC (Bld) 0.8 % Normal 0.2-2.0 [facility] Comment on above: Performed By: #### C BC #### [facility] [address] [place] [address] Dr. David Swann EO # 0.1 103/ul Normal 0.0-0.7 [facility] Comment on above: Performed By: #### C BC #### [facility] [address] [place] [address] Dr. David Swann Eosinophils/100 WBC (Bld) 1.4 % Normal 0.9-7.0 [facility] Comment on above: Performed By: #### C BC #### [facility] [address] [place] [address] Dr. David Swann Erythrocyte distribution width (RBC) [Ratio] 16.0 % Critically high 11.0-15.0 [facility] Comment on above: Performed By: #### C BC #### [facility] [address] [address] [address] David Swann Hematocrit (Bld) [Volume fraction] 33.9 % Critically low 36.0-48.0 [facility] Comment on above: Performed By: #### C BC #### [facility] [address] [place] [address] Dr. David Swann Hemoglobin (Bld) [Mass/Vol] 10.3 g/dL Critically low 12.0-16.0 [facility] Comment on above: Performed By: #### C BC #### [facility] [address] [place] [address] Dr. David Swann IG # 0.04 10e3/ul Critically high 0.00-0.03 [facility] Comment on above: Performed By: #### C BC #### [facility] [address] [place] [address] Dr. David Swann IG % 0.4 % Normal 0.0-0.5 [facility] Comment on above: Performed By: #### C BC #### [facility] [address] [place] [address] Dr. David Swann LYMPH # 2.1 103/ul Normal 1.2-3.8 [facility] Comment on above: Performed By: #### C BC #### [facility] [address] [place] [address] Dr. David Swann Lymphocytes/100 WBC (Bld) 22.8 % Normal 20.5-60.0 [facility] Comment on above: Performed By: #### C BC #### [facility] [address] [place] [address] Dr. David Swann MANUAL DIFF REQ NO Normal [facility] Comment on above: Performed By: #### C BC #### [facility] [address] [place] [address] Dr. David Swann MCH (RBC) [Entitic mass] 26.3 pg Critically low 26.7-34.0 [facility] Comment on above: Performed By: #### C BC #### [facility] [address] [place] [address] Dr. David Swann MCHC (RBC) [Mass/Vol] 30.4 g/dL Normal 29.9-35.2 [facility] Comment on above: Performed By: #### C BC #### [facility] [address] [place] [address] Dr. David Swann MCV (RBC) [Entitic vol] 86.5 fL Normal 81.0-99.0 [facility] Comment on above: Performed By: #### C BC #### [facility] [address] [place] [address] Dr. David Swann MONO # 0.4 103/ul Normal 0.3-0.8 [facility] Comment on above: Performed By: #### C BC #### [facility] [address] [place] [address] Dr. David Swann Monocytes/100 WBC (Bld) 4.5 % Normal 1.7-12.0 [facility] Comment on above: Performed By: #### C BC #### [facility] [address] [place] [address] Dr. David Swann NEUT # 6.3 103/ul Normal 1.4-6.5 [facility] Comment on above: Performed By: #### C BC #### [facility] [address] [place] [address] Dr. David Swann Neutrophils/100 WBC (Bld) 70.1 % Normal 43.0-75.0 [facility] Comment on above: Performed By: #### C BC #### [facility] [address] [place] [address] Dr. David Swann Platelet mean volume (Bld) [Entitic vol] 10.3 fL Normal 9.5-13.5 [facility] Comment on above: Performed By: #### C BC #### [facility] [address] [place] [address] Dr. David Swann PLT 285 103/ul Normal 150-450 [facility] Comment on above: Performed By: #### C BC #### [facility] [address] [place] [address] Dr. David Swann RBC 3.92 106/ul Critically low 4.20-5.40 [facility] Comment on above: Result Comment: DR Susan WALDROP NOTIFIED ABOUT DELTA CHECK--HE WILL RECHECK IT WITH REPEAT TOMORROW Performed By: #### C BC #### [facility] [address] [address] [address] David Swann WBC 9.1 103/ul Normal 4.0-11.0 [facility] Comment on above: Performed By: #### C BC #### [facility] [address] [address] [address] David Swann BASO # 0.1 103/ul Normal 0.0-0.1 [facility] Comment on above: Performed By: #### P OCGLUC #### [facility] [address] [address] [address] David Swann Basophils/100 WBC (Bld) 0.8 % Normal 0.2-2.0 [facility] Comment on above: Performed By: #### P OCGLUC #### [facility] [address] [address] [address] David Swann EO # 0.3 103/ul Normal 0.0-0.7 [facility] Comment on above: Performed By: #### P OCGLUC #### [facility] [address] [address] [address] David Swann Eosinophils/100 WBC (Bld) 2.4 % Normal 0.9-7.0 [facility] Comment on above: Performed By: #### P OCGLUC #### [facility] [address] [address] [address] David Swann Erythrocyte distribution width (RBC) [Ratio] 15.9 % Critically high 11.0-15.0 [facility] Comment on above: Performed By: #### P OCGLUC #### [facility] [address] [address] [address] David Swann Hematocrit (Bld) [Volume fraction] 39.4 % Normal 36.0-48.0 [facility] Comment on above: Performed By: #### P OCGLUC #### [facility] [address] [address] [address] David Swann Hemoglobin (Bld) [Mass/Vol] 12.1 g/dL Normal 12.0-16.0 [facility] Comment on above: Performed By: #### P OCGLUC #### [facility] [address] [address] [address] David Swann IG # 0.06 10e3/ul Critically high 0.00-0.03 [facility] Comment on above: Performed By: #### P OCGLUC #### [facility] [address] [address] [address] David Swann IG % 0.5 % Normal 0.0-0.5 [facility] Comment on above: Performed By: #### P OCGLUC #### [facility] [address] [place] [address] Dr. David Swann LYMPH # 2.9 103/ul Normal 1.2-3.8 [facility] Comment on above: Performed By: #### P OCGLUC #### [facility] [address] [place] [address] Dr. David Swann Lymphocytes/100 WBC (Bld) 23.1 % Normal 20.5-60.0 [facility] Comment on above: Performed By: #### P OCGLUC #### [facility] [address] [place] [address] Dr. David Swann MANUAL DIFF REQ NO Normal [facility] Comment on above: Performed By: #### P OCGLUC #### [facility] [address] [address] [address] David Swann MCH (RBC) [Entitic mass] 26.2 pg Critically low 26.7-34.0 [facility] Comment on above: Performed By: #### P OCGLUC #### [facility] [address] [address] [address] David Swann MCHC (RBC) [Mass/Vol] 30.7 g/dL Normal 29.9-35.2 [facility] Comment on above: Performed By: #### P OCGLUC #### [facility] [address] [address] [address] David Swann MCV (RBC) [Entitic vol] 85.3 fL Normal 81.0-99.0 [facility] Comment on above: Performed By: #### P OCGLUC #### [facility] [address] [address] [address] David Swann MONO # 0.7 103/ul Normal 0.3-0.8 [facility] Comment on above: Performed By: #### P OCGLUC #### [facility] [address] [place] [address] Dr. David Swann Monocytes/100 WBC (Bld) 5.4 % Normal 1.7-12.0 [facility] Comment on above: Performed By: #### P OCGLUC #### [facility] [address] [place] [address] Dr. David Swann NEUT # 8.5 103/ul Critically high 1.4-6.5 [facility] Comment on above: Performed By: #### P OCGLUC #### [facility] [address] [place] [address] Dr. David Swann Neutrophils/100 WBC (Bld) 67.8 % Normal 43.0-75.0 [facility] Comment on above: Performed By: #### P OCGLUC #### [facility] [address] [place] [address] Dr. David Swann Platelet mean volume (Bld) [Entitic vol] 10.2 fL Normal 9.5-13.5 [facility] Comment on above: Performed By: #### P OCGLUC #### [facility] [address] [place] [address] Dr. David Swann PLT 359 103/ul Normal 150-450 [facility] Comment on above: Performed By: #### P OCGLUC #### [facility] [address] [place] [address] Dr. David Swann RBC 4.62 106/ul Normal 4.20-5.40 [facility] Comment on above: Performed By: #### P OCGLUC #### [facility] [address] [address] [address] David Swann WBC 12.5 103/ul Critically high 4.0-11.0 [facility] Comment on above: Performed By: #### P OCGLUC #### [facility] [address] [place] [address] Dr. David Swann Covid-19 PCR ([facility])on 11-01 SARS-CoV-2 (COVID-19) RNA CARLOS+probe Ql (Unsp spec) Not detected Normal NOT DETECTED [facility] Comment on above: Result Comment: When [...] for this test is supported by the [place] of [employer] and [employer] Service's declaration that [...] Performed By: #### F ETIBC, B12FOL #### [facility] [address] [place] [address] Dr. David Swann ECHOCARDIO M/2D COMPLETEon 0 11-17-2021 ECHOCARDIO M/2D COMPLETE Patient: VENANCIO NELSON Exam Date: 11/17/2021 : 1960 Gender:F Ordering : DR YUNI MAST . Admission #: [id number] Family : Order #: [id number] CLICK HERE TO VIEW EXAM ECHOCARDIOGRAM REPORT [...] Jackson M.D. on 11/17/2021 at 17:05 Normal [facility] POINT OF CARE GLUCOSEon 11-01 Glucose [Mass/Vol] 170 mg/dL Critically high 74-[address] [facility] Comment on above: Performed By: #### P OCGLUC #### [facility] [address] [address] [address] David Swann Glucose [Mass/Vol] 189 mg/dL Critically high 74-[address] [facility] Comment on above: Performed By: #### F ETIBC, B12FOL #### [facility] [address] [place], [place] [address] Dr. David Swann Glucose [Mass/Vol] 99 mg/dL Normal 74-106 [facility] Comment on above: Performed By: #### P OCGLUC #### [facility] [address] [address] [address] David Swann Glucose [Mass/Vol] 95 mg/dL Normal 74-106 [facility] Comment on above: Performed By: #### F ETIBC, B12FOL #### [facility] [address] [address] [address] David Swann PROF 14(COMP METB)on 022 Albumin [Mass/Vol] 3.5 g/dL Normal 3.4-5.0 [facility] Comment on above: Performed By: #### P OCGLUC #### [facility] [address] [address] [address] David Swann Albumin/Globulin [Mass ratio] 0.7 {ratio} Normal [facility] Comment on above: Performed By: #### P OCGLUC #### [facility] [address] [address] [address] David Swann ALP [Catalytic activity/Vol] 99 U/L Normal 46-116 [facility] [facility] Comment on above: Performed By: #### P OCGLUC #### [facility] [address] [address] [address] David Swann ALT [Catalytic activity/Vol] 19 U/L Normal 14-59 [facility] Comment on above: Performed By: #### P OCGLUC #### [facility] [address] [address] [address] David Swann Anion gap [Moles/Vol] 14.5 mmol/L Normal [facility] Comment on above: Performed By: #### P OCGLUC #### [facility] [address] [address] [address] David Swann AST [Catalytic activity/Vol] 23 U/L Normal 15-37 [facility] Comment on above: Performed By: #### P OCGLUC #### [facility] [address] [address] [address] David Swann Bilirubin [Mass/Vol] 0.3 mg/dL Normal 0.2-1.0 [facility] Comment on above: Performed By: #### P OCGLUC #### [facility] [address] [address] [address] David Swann Calcium [Mass/Vol] 9.2 mg/dL Normal 8.5-10.1 [facility] Comment on above: Performed By: #### P OCGLUC #### [facility] [address] [address] [address] David Swann Chloride [Moles/Vol] 102 mmol/L Normal 98-107 [facility] Comment on above: Performed By: #### P OCGLUC #### [facility] [address] [address] [address] David Swann CO2 [Moles/Vol] 27.4 mmol/L Normal 21.0-32.0 [facility] Comment on above: Performed By: #### P OCGLUC #### [facility] [address] [address] [address] David Swann Creatinine [Mass/Vol] 1.09 mg/dL Critically high 0.55-1.02 [facility] Comment on above: Performed By: #### P OCGLUC #### [facility] [address] [address] [address] David Swann EGFR-AF [place] >60 Normal >=60 [facility] Comment on above: Performed By: #### P OCGLUC #### [facility] [address] [address] [address] David Swann EGFR-NON AF [place] 51 mL/min/1.73m2 Critically low >=60 [facility] Comment on above: Performed By: #### P OCGLUC #### [facility] [address] [address] [address] David Swann Globulin (S) [Mass/Vol] 4.8 g/dL Normal [facility] Comment on above: Performed By: #### P OCGLUC #### [facility] [address] [address] [address] David Swann Glucose [Mass/Vol] 224 mg/dL Critically high 74-[address] [facility] Comment on above: Performed By: #### P OCGLUC #### [facility] [address] [address] [address] David Swann Potassium [Moles/Vol] 3.9 mmol/L Normal 3.5-5.1 [facility] Comment on above: Performed By: #### P OCGLUC #### [facility] [address] [address] [address] David Swann Protein [Mass/Vol] 8.3 g/dL Critically high 6.4-8.2 [facility] Comment on above: Performed By: #### P OCGLUC #### [facility] [address] [address] [address] David Swann Sodium [Moles/Vol] 140 mmol/L Normal 136-145 [facility] Comment on above: Performed By: #### P OCGLUC #### [facility] [address] [address] [address] David Swann Urea nitrogen [Mass/Vol] 24.0 mg/dL Critically high 7.0-18.0 [facility] Comment on above: Performed By: #### P OCGLUC #### [facility] [address] [address] [address] David Swann Urea nitrogen/Creatinine [Mass ratio] 22.0 mg/mg Normal [facility] Comment on above: Performed By: #### P OCGLUC #### [facility] [address] [address] [address] David Swann TROPONIN, HIGH SENSITIVITYon 11-17-2021 HSTROP 44.7 pg/mL Normal 4.0-51.3 [facility] Comment on above: Result Comment: CUT- OFF POINTS HAVE BEEN ESTABLISHED BASED ON THE FOURTH UNIVERSAL DEFINITIONS OF MYOCARDIAL INFARCTION. THE UPPER REFERENCE LIMIT (URL) OF TROPONIN, DEFINED THE 99TH PERCENTILE OF cTnI DISTRIBUTION IN A REFERENCE POPULATION, HAS BEEN CONFIRMED THE DECISION THRESHOLD FOR AK DIAGNOSIS. Performed By: #### P OCGLUC #### [facility] [address] [address] [address] David Swann XR CHEST 1 Von 11-17-2021 XR CHEST 1 V EXAM: XR CHEST 1 V HISTORY: SHORTNESS OF BREATH COMPARISON: None. TECHNIQUE: Single frontal view chest x-ray FINDINGS: Moderate bilateral mid and lower lung opacities.. Cardiomegaly. Bilateral pulmonary vascular prominence/congestion . Small bilateral lower pleural effusion suspected. No pneumothorax or acute bony abnormality. Calcified plaque thoracic aortic knob. IMPRESSION: Moderate bilateral mid and lower lung opacities reflecting edema or other lung infiltrates. Correlate clinically. Cardiomegaly and bilateral pulmonary vascular prominence/congestion . Small bilateral lower pleural effusion suspected. Electronically authenticated by: RHETT MARY Date: 2021-11-17 00:49 Normal [facility] GLYCOHEMOGLOBIN A1Con 2021 ADA RECOMMENDATION SEE BELOW Normal [facility] Comment on above: Result Comment: ADA RECOMMENDED LIMIT 4.0 - 6.0 ADA THERAPEUTIC TARGET < 7.0 ACTION SUGGESTED > 7.0 Performed By: #### A 1C #### [facility] [address] [place] [address] Dr. David Swann Glucose [Mass/Vol] 154 mg/dL Normal [facility] Comment on above: Performed By: #### A 1C #### [facility] [address] [address] [address] David Swann HbA1c (Bld) [Mass fraction] 7.0 % Critically high 4.5-6.2 [facility] Comment on above: Performed By: #### A 1C #### [facility] [address] [address] [address] David Swann LIPID PROFILEon 11-03-2021 CHOL-HDL RATIO NORM SEE BELOW Normal [facility] Comment on above: Result Comment: 3.3 - 4.4 LOW RISK 4.4 - 7.1 AVERAGE RISK 7.1 - 11.0 MODERATE RISK >11.0 HIGH RISK Performed By: #### L MICHELLE LIPID #### [facility] [address] [address] [address] David Swann Cholesterol [Mass/Vol] 134 mg/dL Normal <=200 [facility] Comment on above: Performed By: #### L IVCHRISTO, LIPID #### [facility] [address] [address] [address] David Swann Cholesterol in HDL [Mass/Vol] 36 mg/dL Critically low 40-60 [facility] Comment on above: Performed By: #### L IVER, LIPID #### [facility] [address] [address] [address] David Swann Cholesterol in LDL [Mass/Vol] 71.6 mg/dL Normal [facility] Comment on above: Performed By: #### L IVER, LIPID #### [facility] [address] [address] [address] David Swann Cholesterol.total/Cho lesterol in HDL [Mass ratio] 3.7 {ratio} Normal [facility] Comment on above: Performed By: #### L IVCHRISTO, LIPID #### [facility] [address] [place] [address] Dr. David Swann HDL NORMAL > or = 60 mg/dl - LO W CARDIOVASCULAR RISK <40 mg/dl - HIGH CARDIOVASCULAR RISK Normal [facility] Comment on above: Performed By: #### L IVCHRISTO, LIPID #### [facility] [address] [address] [address] David Swann LDL CALC NORMAL SEE BELOW Normal [facility] Comment on above: Result Comment: <100 mg/dl OPTIMAL 100 - 129 mg/dl NEAR OR ABOVE OPTIMAL 130 - 159 mg/dl BORDERLINE HIGH 160 - 189 mg/dl HIGH >190 mg/dl VERY HIGH Performed By: #### L IVCHRISTO, LIPID #### [facility] [address] [address] [address] David Swann Triglyceride [Mass/Vol] 132 mg/dL Normal <=150 [facility] Comment on above: Performed By: #### L IVER, LIPID #### [facility] [address] [address] [address] David Swann VLDL CALC 26.4 mg/dL Normal [facility] Comment on above: Performed By: #### L IVCHRISTO, LIPID #### [facility] [address] [address] [address] David Swann LIVER PROFILEon 11-03-2021 Albumin [Mass/Vol] 3.4 g/dL Normal 3.4-5.0 [facility] Comment on above: Performed By: #### L IVER, LIPID #### [facility] [address] [address] [address] David Swann Albumin/Globulin [Mass ratio] 0.8 {ratio} Normal [facility] Comment on above: Performed By: #### L IVER, LIPID #### [facility] [address] [address] [address] David Swann ALP [Catalytic activity/Vol] 73 U/L Normal 46-116 [facility] Comment on above: Performed By: #### L IVER, LIPID #### [facility] [address] [address] [address] David Swann ALT [Catalytic activity/Vol] 14 U/L Normal 14-59 [facility] Comment on above: Performed By: #### L IVER, LIPID #### [facility] [address] [address] [address] David Swann AST [Catalytic activity/Vol] 10 U/L Critically low 15-37 [facility] Comment on above: Performed By: #### L IVER, LIPID #### [facility] [address] [address] [address] David Swann BILI, CONJUGATED 0.0 mg/dL Normal 0.0-0.2 [facility] Comment on above: Performed By: #### L IVER, LIPID #### [facility] [address] [address] [address] David Swann Bilirubin [Mass/Vol] 0.3 mg/dL Normal 0.2-1.0 [facility] Comment on above: Performed By: #### L IVER, LIPID #### [facility] [address] [address] [address] David Swann Globulin (S) [Mass/Vol] 4.4 g/dL Normal [facility] Comment on above: Performed By: #### L IVER, LIPID #### [facility] [address] [address] [address] David Swann Protein [Mass/Vol] 7.8 g/dL Normal 6.4-8.2 [facility] Comment on above: Performed By: #### L IVER, LIPID #### [facility] [address] [address] [address] David Swann ECHOCARDIO M/2D COMPLETEon 0 08-18-2021 ECHOCARDIO M/2D COMPLETE Patient: VENANCIO NELSON Exam Date: 08/18/2021 : 1960 Gender:F Ordering : DR YUNI MAST . Admission #: [id number] Family : Order #: [id number] CLICK HERE TO VIEW EXAM ECHOCARDIOGRAM REPORT [...] Area(A4C): 21.70 cm2 Left Atrium Systolic Volume(A2C): 68172 mm3 Left Atrium Systolic Volume(A4C): 03812 mm3 Mitral Valve MV E to A Ratio: 1.10 MV Mean Gradient: 4 mm[Hg] Deceleration Holt: 9280 mm/s2 Cardiovascular Orifice Area: 1.63 cm2 [...] Santana M.D. on 08/18/2021 at 20:20 Normal [facility] US CAROTID ART BILon 05-16-2 022 US CAROTID ART DIANA EXAMINATION: US CAROTID ART DIANA HISTORY: Cerebrovascular accident COMPARISON: No [...] LYRIC PADRON Date: 2021-08-16 13:09 Normal [facility] MRI BRAIN WO CONon MRI BRAIN WO CON EXAMINATION: MRI BRAIN WO CON, 08/02/2021 9:52 AM EDT HISTORY: [...] by: LYRIC PADRON Date: 2021-08-02 10:25 Normal [facility] Cardiovascular Lab Reporton 08-08-2020 Cardiovascular Lab Report [facility] MR #: [id number] Department of Physician: Ivan Mosley M.D. Division of Service Date: 08/07/2020 Cardiology Birthdate: 1960 Adult Cardiovascular Room #: [facility] [address] [place] [id number] Cardiovascular Laboratory Report CLINICAL PRESENTATION: The patient [...] guidance and a micropuncture access technique, a 6-Burundian sheath was placed in right internal jugular [...] artery was anesthetized with 1% lidocaine. A 6-Burundian Terumo Glidesheath Slender was placed in the right radial artery. The radial anti-vasospasm cocktail of nitroglycerin 200 mcg and verapamil 2.5 mg administered through the sheath. All catheter exchanges were made over the J-tip guidewire. A 5-Burundian JR5 was used to engage the right coronary artery. A 5-Burundian JL3.5 was used to engage the left [...] posterolateral (more content not included)... Normal [facility] CBC COMPLETE BLOOD COUNTon 0 08-07-2020 Erythrocyte distribution width (RBC) [Ratio] 20.8 % High 11.5-15.0 [facility] Comment on above: Performed By: #### [id number] #### [facility] [address] [place] [address], [facility] Hematocrit (Bld) [Volume fraction] 38.7 % Normal 36.0-45.0 [facility] Comment on above: Performed By: #### [id number] #### [facility] [address] [facility] [place] [address], [facility] Hemoglobin (Bld) [Mass/Vol] 11.6 g/dL Low 12.0-15.0 [facility] Comment on above: Performed By: #### [id number] #### [facility] [address] [facility] [place] [address], [facility] MCH (RBC) [Entitic mass] 23.0 pg Low 27.0-33.0 [facility] Comment on above: Performed By: #### [id number] #### [facility] [address] [facility] [place] [place] [address], [facility] MCHC (RBC) [Mass/Vol] 30.0 g/dL Low 32.0-35.0 [facility] Comment on above: Performed By: #### [id number] #### [facility] [address] [place] [address], [facility] MCV (RBC) [Entitic vol] 76.6 fL Low 82.0-98.0 [facility] Comment on above: Performed By: #### [id number] #### [facility] [address] [place] [address], [facility] Nucleated RBC/100 WBC (Bld) [Ratio] 0 % Normal 0-0 [facility] Comment on above: Performed By: #### [id number] #### [facility] [address] [facility] [place] [address], [facility] PLAT CNT 419 10*3/uL High 150-400 [facility] Comment on above: Performed By: #### [id number] #### [facility] [address] [place] [address], [facility] RBC (Bld) [#/Vol] 5.05 10*6/uL High 3.80-5.00 [facility] Comment on above: Performed By: #### [id number] #### [facility] [address] [place] [address], [facility] WBC (Bld) [#/Vol] 10.00 10*3/uL Normal 4.00-10.60 [facility] Comment on above: Performed By: #### [id number] #### [facility] [address] [facility] [place] [address], [facility] Vital Signs Date Time Vital Sign Value Performing Clinician Faci lity 08-25-2023 13:23-0400 Blood Pressure Location [facility] 08-25-2023 13:23-0400 Body temperature 98.24 [degF] [facility] 08-25-2023 13:23-0400 Diastolic blood pressure 69 mm[Hg] [facility] 08-25-2023 13:23-0400 Heart rate 58 /min [facility] 08-25-2023 13:23-0400 Mean blood pressure 96 mm[Hg] [facility] 08-25-2023 13:23-0400 Respiratory rate 16 /min [facility] 08-25-2023 13:23-0400 SaO2% (BldA) [Mass fraction] 99 % [facility] 08-25-2023 13:23-0400 Systolic blood pressure 151 mm[Hg] [facility] 08-25-2023 11:50-0400 [facility] 11:50-0400 Body temperature 97.88 [degF] [facility]-25-[facility] 11:50-0400 Diastolic blood pressure 71 mm[Hg] [facility] 08-25-2023 11:50-0400 Heart rate 67 /min [facility] 08-25-2023 11:50-0400 Respiratory rate 16 /min [facility] 08-25-2023 11:50-0400 SaO2% (BldA) [Mass fraction] 99 % [facility] 08-25-2023 11:50-0400 Systolic blood pressure 134 mm[Hg] [facility] 08-25-[facility]23 11:31-0400 Blood Pressure Location [facility] 08-25-2023 11:31-0400 Body temperature 97.88 [degF] [facility] 08-25-2023 11:31-0400 Diastolic blood pressure 63 mm[Hg] [facility] 08-25-2023 11:31-0400 Heart rate 71 /min [facility] 08-25-2023 11:31-0400 Respiratory rate 16 /min [facility] 08-25-2023 11:31-0400 SaO2% (BldA) [Mass fraction] 98 % [facility] 08-25-2023 11:31-0400 Systolic blood pressure 123 mm[Hg] [facility] 08-25-2023 11:00-0400 Diastolic blood pressure 53 mm[Hg] Shanakr Martin [facility] 08-25-2023 11:00-0400 Mean blood pressure 80 mm[Hg] Shankar Martin [facility] 08-25-2023 11:00-0400 Respiratory rate 14 /min Shankar Mario [facility] 08-25-2023 11:00-0400 Systolic blood pressure 135 mm[Hg] Shankar Mario [facility] 08-25-2023 10:30-0400 Diastolic blood pressure 49 mm[Hg] Shankar Mario [facility] 08-25-2023 10:30-0400 Heart rate 67 /min Shankar Mario [facility] 08-25-2023 10:30-0400 Mean blood pressure 79 mm[Hg] Shankar Mario [facility] 08-25-2023 10:30-0400 Respiratory rate 19 /min Shankar Mario [facility] 08-25-2023 10:30-0400 SaO2% (BldA) [Mass fraction] 95 % Shankar Mario [facility] 08-25-2023 10:30-0400 Systolic blood pressure 140 mm[Hg] Shankar Mario [facility] 08-25-2023 10:26-0400 Diastolic blood pressure 52 mm[Hg] Shankar Mario [facility] 08-25-2023 10:26-0400 Heart rate 68 /min Shankar Mario [facility] 08-25-2023 10:26-0400 Mean blood pressure 82 mm[Hg] Shankar Mario [facility] 08-25-2023 10:26-0400 Respiratory rate 15 /min Shankar Mario [facility] 08-25-2023 10:26-0400 SaO2% (BldA) [Mass fraction] 94 % Shankar Mario [facility] 08-25-2023 10:26-0400 Systolic blood pressure 141 mm[Hg] Shankar Martin [facility] 08-25-2023 07:58-0400 Body temperature 98.06 [degF] Shankar Martin [facility] 08-25-2023 07:58-0400 Heart rate 67 /min Shankar Martin [facility] 08-25-2023 07:58-0400 Respiratory rate 18 /min Shankar Martin [facility] 08-23-2023 08:31-0400 Body temperature 98.06 [degF] [facility] 08-23-2023 08:31-0400 Diastolic blood pressure 64 mm[Hg] [facility] 08-23-2023 08:31-0400 Heart rate 61 /min [facility] 08-23-2023 08:31-0400 Mean blood pressure 82 mm[Hg] [facility] 08-23-[facility]23 08:31-0400 Respiratory rate 16 /min [facility] 08-23-2023 08:31-0400 SaO2% (BldA) [Mass fraction] 99 % [facility] 08-23-2023 08:31-0400 Systolic blood pressure 117 mm[Hg] [facility] 08-11-2023 12:00-0400 Blood Pressure Location [facility] 08-11-2023 12:00-0400 Body temperature 98.24 [degF] [facility] 08-11-2023 12:00-0400 Diastolic blood pressure 67 mm[Hg] [facility] 08-11-2023 12:00-0400 Heart rate 61 /min [facility] 08-11-2023 12:00-0400 Respiratory rate 18 /min Francineeduardo Sarabia [facility] 08-11-2023 12:00-0400 SaO2% (BldA) [Mass fraction] 99 % Francineeduardo Sarabia [facility] 08-11-2023 12:00-0400 Systolic blood pressure 113 mm[Hg] Francine Sarabia [facility] 08-09-2023 09:20-0400 Body temperature 98.24 [degF] [facility] 08-09-2023 09:20-0400 Diastolic blood pressure 67 mm[Hg] [facility] 08-09-2023 09:20-0400 Heart rate 80 /min [facility] 08-09-2023 09:20-0400 Respiratory rate 16 /min [facility] 08-09-2023 09:20-0400 SaO2% (BldA) [Mass fraction] 99 % [facility] 08-09-2023 09:20-0400 Systolic blood pressure 147 mm[Hg] [facility] 07-28-2023 12:00-0400 Blood Pressure Location [facility] 07-28-2023 12:00-0400 Body temperature 98.06 [degF] [facility] 07-28-2023 12:00-0400 Diastolic blood pressure 65 mm[Hg] [facility] 07-28-2023 12:00-0400 Heart rate 64 /min [facility] 07-28-2023 12:00-0400 SaO2% (BldA) [Mass fraction] 99 % [facility] 07-28-2023 12:00-0400 Systolic blood pressure 116 mm[Hg] [facility] 07-26-2023 09:21-0400 Heart rate 79 /min Francine Sarabia [facility] 07-26-2023 09:21-0400 SaO2% (BldA) [Mass fraction] 97 % Francineeduardo Sarabia [facility] 07-26-2023 09:13-0400 Diastolic blood pressure 54 mm[Hg] Francine Sarabia [facility] 07-26-2023 09:13-0400 Mean blood pressure 73 mm[Hg] Francine Sarabia [facility] 07-26-2023 09:13-0400 Systolic blood pressure 111 mm[Hg] Francine Sarabia [facility] 07-26-2023 09:13-0400 Body temperature 98.06 [degF] Francine Sarabia [facility] 07-25-2023 11:32-0400 Body height 157.48 cm MD Lázaro Riddle Work Phone: [facility] 07-25-2023 11:32-0400 Body mass index (BMI) [Ratio] 35.6 kg/m2 MD Lázaro Riddle Work Phone: [facility] 07-25-2023 11:32-0400 Body temperature 96.6 [degF] MD Lázaro Riddle Work Phone: [facility] 07-25-2023 11:32-0400 Body weight 88.45 kg MD Lázaro Riddle Work Phone: [facility] 07-25-2023 11:32-0400 Diastolic blood pressure 50 mm[Hg] MD Lázaro Riddle Work Phone: [facility] 07-25-2023 11:32-0400 Heart rate 57 /min MD Lázaro Riddle Work Phone: [facility] 07-25-2023 11:32-0400 SaO2% (BldA) [Mass fraction] 98 % MD Lázaro Riddle Work Phone: [facility] 07-25-2023 11:32-0400 Systolic blood pressure 104 mm[Hg] MD Lázaro Riddle Work Phone: [facility] 07-24-2023 13:30-0400 Body temperature 98.06 [degF] Beverley Velarde [facility] 07-24-2023 13:30-0400 Diastolic blood pressure 61 mm[Hg] Beverley Velarde [facility] 07-24-2023 13:30-0400 Heart rate 59 /min Beverley Velarde [facility] 07-24-2023 13:30-0400 Mean blood pressure 77 mm[Hg] Beverley Velarde [facility] 07-24-2023 13:30-0400 SaO2% (BldA) [Mass fraction] 100 % Beverley Velarde [facility] 07-24-2023 13:30-0400 Systolic blood pressure 109 mm[Hg] Beverley Velarde [facility] 07-10-2023 11:00-0400 Hourly Rounding Scoobykobi SCHAEFERSLIN [facility] 07-10-2023 11:00-0400 Promise to Return Scooby KENRICK [facility] 07-10-2023 10:00-0400 Hourly Rounding Scooby KENRICK [facility] 07-10-2023 10:00-0400 Promise to Return Scooby KENRICK [facility] 07-10-2023 09:50-0400 Diastolic blood pressure 65 mm[Hg] Scooby KENRICK [facility] 07-10-2023 09:50-0400 Heart rate 88 /min Scooby KENRICK [facility] 07-10-2023 09:50-0400 Systolic blood pressure 109 mm[Hg] Scooby KENRICK [facility] 07-10-2023 09:00-0400 Hourly Rounding Scooby DUMONTLIN [facility] 07-10-2023 09:00-0400 Promise to Return Scooby CHOUDHARY [facility] 07-10-2023 08:30-0400 Heart rate 103 /min Scoobykobi DUMONTLIN [facility] 07-10-2023 08:30-0400 SaO2% (BldA) [Mass fraction] 99 % Scooby SCHAEFERSLIN [facility] 07-10-2023 08:29-0400 Body temperature 97.88 [degF] Scooby SCHAEFERSLIN [facility] 07-10-2023 08:28-0400 Diastolic blood pressure 65 mm[Hg] Scoobykobi SCHAEFERSLIN [facility] 07-10-2023 08:28-0400 Mean blood pressure 79 mm[Hg] Scoobykobi SCHAEFERSLIN [facility] 07-10-2023 08:28-0400 Systolic blood pressure 109 mm[Hg] Scoobykobi SCHAEFERSLIN [facility] 07-10-2023 00:55-0400 Blood Pressure Location Scoobykobi SCHAEFERSLIN [facility] 07-10-2023 00:55-0400 Body temperature 98.24 [degF] Scoobykobi SCHAEFERSLIN [facility] 07-10-2023 00:55-0400 Diastolic blood pressure 53 mm[Hg] Scooby KENRICK [facility] 07-10-2023 00:55-0400 Heart rate 60 /min Scoobykobi SCHAEFERSLIN [facility] 07-10-2023 00:55-0400 Mean blood pressure 70 mm[Hg] Scooby SCHAEFERSLIN [facility] 07-10-2023 00:55-0400 Respiratory rate 18 /min Scoobykobi SCHAEFERSLIN [facility] 07-10-2023 00:55-0400 SaO2% (BldA) [Mass fraction] 99 % Scoobykobi SCHAEFERSLIN [facility] 07-10-2023 00:55-0400 Systolic blood pressure 103 mm[Hg] Scoobykobi SCHAEFERSLIN [facility] 07-09-2023 20:28-0400 Heart rate 96 /min Scoobykobi DUMONTLIN [facility] 07-09-2023 20:15-0400 Blood Pressure Location Scoobykobi CHOUDHARY [facility] 07-09-2023 20:15-0400 Body temperature 97.52 [degF] Scoobykobi CHOUDHARY [facility] 07-09-2023 20:15-0400 Heart rate 96 /min Scooby DUMONTLIN [facility] 07-09-2023 20:15-0400 Mean blood pressure 75 mm[Hg] Scoobykobi SCHAEFERSLIN [facility] 07-09-2023 20:15-0400 Respiratory rate 18 /min Scoobykobi SCHAEFERSLIN [facility] 07-09-2023 20:15-0400 SaO2% (BldA) [Mass fraction] 100 % Scooby SCHAEFERSLIN [facility] 07-09-2023 18:35-0400 gluc 174 mg/dL Scoobykobi SCHAEFERSLIN [facility] 07-09-2023 17:00-0400 Mean blood pressure 77 mm[Hg] Scooby KENRICK [facility] 07-09-2023 16:59-0400 Body temperature 97.52 [degF] Scooby KENRICK [facility] 07-09-2023 13:11-0400 gluc 157 mg/dL Scooby KENRICK [facility] 07-09-2023 11:17-0400 Mean blood pressure 73 mm[Hg] Scooby KENRICK [facility] 07-09-2023 11:16-0400 Body temperature 98.06 [degF] Scooby KENRICK [facility] 07-09-2023 09:29-0400 Heart rate 98 /min Scooby KENRICK [facility] 07-09-2023 00:00-0400 Body temperature 97.7 [degF] Scooby KENRICK [facility] 07-09-2023 00:00-0400 Mean blood pressure 82 mm[Hg] Scooby KENRICK [facility] 07-07-2023 05:30-0400 Blood Pressure Location Scooby KENRICK [facility] 07-07-2023 05:30-0400 Respiratory rate 16 /min Scooby KENRICK [facility] 07-06-2023 20:58-0400 Heart rate 60 /min Scooby KENRICK [facility] 07-06-2023 20:30-0400 Respiratory rate 22 /min Scooby KENRICK [facility] 07-06-2023 19:59-0400 Respiratory rate 20 /min Scooby CHOUDHARY [facility] 07-06-2023 19:02-0400 Respiratory rate 18 /min [facility]-06[facility] 15:18-0400 Heart rate 60 /min Scooby CHOUDHARY [facility] 07-06-2023 15:05-0400 Diastolic blood pressure 68 mm[Hg] [facility] 15:05-0400 Systolic blood pressure 106 mm[Hg] [facility] 07-06-2023 15:00-0400 Blood Pressure Location [facility] 07-06-2023 15:00-0400 Body temperature 97.34 [degF] [facility] 07-06-2023 15:00-0400 Diastolic blood pressure 79 mm[Hg] [facility] 07-06-2023 15:00-0400 Heart rate 70 /min [facility] 07-06-2023 15:00-0400 Mean blood pressure 92 mm[Hg] [facility]-06-[facility] 15:00-0400 SaO2% (BldA) [Mass fraction] 100 % [facility] 07-06-2023 15:00-0400 Systolic blood pressure 117 mm[Hg] [facility] 07-06-2023 12:00-0400 Diastolic blood pressure 59 mm[Hg] [facility] 07-06-2023 12:00-0400 Heart rate 71 /min [facility] 07-06-2023 12:00-0400 Systolic blood pressure 93 mm[Hg] [facility] 06-30-2023 13:24-0400 Blood Pressure Location [facility] 06-30-2023 13:24-0400 Body temperature 98.06 [degF] [facility] 06-30-2023 13:24-0400 Diastolic blood pressure 61 mm[Hg] [facility] 06-30-2023 13:24-0400 Heart rate 58 /min [facility] 06-30-2023 13:24-0400 Mean blood pressure 74 mm[Hg] [facility] 06-30-2023 13:24-0400 Respiratory rate 16 /min [facility] 06-30-2023 13:24-0400 SaO2% (BldA) [Mass fraction] 100 % [facility] 06-30-2023 13:24-0400 Systolic blood pressure 99 mm[Hg] [facility] 06-28-2023 08:47-0400 Body temperature 97.7 [degF] [facility] 06-28-2023 08:47-0400 Diastolic blood pressure 57 mm[Hg] [facility] 06-28-2023 08:47-0400 Heart rate 58 /min [facility] 06-28-2023 08:47-0400 Mean blood pressure 72 mm[Hg] [facility] 06-28-2023 08:47-0400 Respiratory rate 18 /min [facility] 06-28-2023 08:47-0400 SaO2% (BldA) [Mass fraction] 100 % [facility] 06-28-2023 08:47-0400 Systolic blood pressure 101 mm[Hg] [facility] 06-16-2023 14:00-0400 Blood Pressure Location [facility] 06-16-2023 14:00-0400 Body temperature 97.88 [degF] [facility] 06-16-[facility]23 14:00-0400 Diastolic blood pressure 67 mm[Hg] [facility] 06-16-2023 14:00-0400 Heart rate 63 /min [facility] 06-16-2023 14:00-0400 Respiratory rate 18 /min [facility] 06-16-2023 14:00-0400 SaO2% (BldA) [Mass fraction] 97 % [facility] 06-16-2023 14:00-0400 Systolic blood pressure 137 mm[Hg] [facility] 06-14-2023 09:09-0400 Heart rate 52 /min [facility] 06-14-2023 09:09-0400 SaO2% (BldA) [Mass fraction] 98 % [facility]-14-[facility]23 09:09-0400 Body temperature 97.88 [degF] [facility] 06-14-2023 09:09-0400 Diastolic blood pressure 69 mm[Hg] [facility] 06-14-2023 09:09-0400 Mean blood pressure 87 mm[Hg] [facility] 06-14-2023 09:09-0400 Systolic blood pressure 121 mm[Hg] [facility] 06-14-2023 09:00-0400 Blood Pressure Location [facility] 06-14-2023 09:00-0400 Respiratory rate 16 /min [facility] 06-09-2023 14:27-0500 Diastolic blood pressure 78 mm[Hg] Felix Andrew [facility] 06-09-2023 14:27-0500 Heart rate 62 /min Felix Andrew [facility] 06-09-2023 14:27-0500 SaO2% (BldA) [Mass fraction] 95 % Felix Andrew [facility] 06-09-2023 14:27-0500 Systolic blood pressure 128 mm[Hg] Felix Andrew [facility] 06-02-2023 14:21-0500 Body temperature 98.06 [degF] [facility] 06-02-2023 14:21-0500 Diastolic blood pressure 72 mm[Hg] [facility] 06-02-2023 14:21-0500 Heart rate 57 /min [facility] 06-02-[facility]23 14:21-0500 SaO2% (BldA) [Mass fraction] 96 % [facility] 06-02-2023 14:21-0500 Systolic blood pressure 148 mm[Hg] [facility] 06-02-2023 13:18-0500 Heart rate 57 /min [facility] 06-02-2023 13:18-0500 SaO2% (BldA) [Mass fraction] 92 % [facility] 06-02-2023 13:18-0500 Body temperature 98.06 [degF] [facility] 06-02-2023 13:18-0500 Diastolic blood pressure 68 mm[Hg] [facility] 06-02-2023 13:18-0500 Mean blood pressure 89 mm[Hg] [facility] 06-02-2023 13:18-0500 Systolic blood pressure 131 mm[Hg] [facility] 06-02-2023 12:57-0500 Body temperature 98.06 [degF] [facility] 06-02-2023 12:57-0500 Diastolic blood pressure 68 mm[Hg] [facility] 06-02-2023 12:57-0500 Heart rate 54 /min [facility] 06-02-2023 12:57-0500 SaO2% (BldA) [Mass fraction] 92 % Francineeduardo Sarabia [facility] 06-02-2023 12:57-0500 Systolic blood pressure 131 mm[Hg] Francineeduardo Sarabia [facility] 06-02-2023 12:38-0500 Blood Pressure Location [facility] 06-02-2023 12:38-0500 Heart rate 54 /min [facility] 06-02-2023 12:38-0500 Respiratory rate 16 /min [facility] 06-02-2023 12:02-0500 Mean blood pressure 72 mm[Hg] [facility] 05-31-2023 11:38-0500 Body temperature 98.06 [degF] [facility] 05-31-2023 11:38-0500 Diastolic blood pressure 64 mm[Hg] [facility] 05-31-2023 11:38-0500 Heart rate 55 /min [facility] 05-31-2023 11:38-0500 Mean blood pressure 83 mm[Hg] [facility] 05-31-2023 11:38-0500 SaO2% (BldA) [Mass fraction] 99 % [facility] 05-31-2023 11:38-0500 Systolic blood pressure 122 mm[Hg] [facility] 05-31-2023 09:00-0500 Blood Pressure Location [facility] 05-30-2023 16:56-0500 Heart rate 59 /min [facility] 05-30-2023 16:56-0500 SaO2% (BldA) [Mass fraction] 100 % [facility] 05-30-2023 16:56-0500 Respiratory rate 18 /min [facility] 05-30-2023 16:56-0500 Diastolic blood pressure 74 mm[Hg] Francineeduardo Sarabia [facility] 05-30-2023 16:56-0500 Mean blood pressure 100 mm[Hg] Francine Sarabia [facility] 05-30-2023 16:56-0500 Systolic blood pressure 151 mm[Hg] Francineeduardo Sarabia [facility] 05-30-2023 16:56-0500 Body temperature 98.42 [degF] [facility] 05-30-2023 15:55-0500 Blood Pressure Location Francineeduardo Sarabia [facility] 05-30-2023 15:55-0500 Body temperature 98.24 [degF] [facility] 05-30-2023 15:55-0500 Diastolic blood pressure 72 mm[Hg] [facility] 05-30-2023 15:55-0500 Heart rate 58 /min [facility] 05-30-2023 15:55-0500 Mean blood pressure 90 mm[Hg] [facility] 05-30-2023 15:55-0500 Respiratory rate 16 /min [facility] 05-30-2023 15:55-0500 SaO2% (BldA) [Mass fraction] 98 % [facility] 05-30-2023 15:55-0500 Systolic blood pressure 125 mm[Hg] [facility] 05-30-2023 15:27-0500 Blood Pressure Location [facility] 05-30-2023 15:27-0500 Body temperature 98.06 [degF] [facility] 05-30-2023 15:27-0500 Diastolic blood pressure 71 mm[Hg] [facility] 05-30-2023 15:27-0500 Heart rate 60 /min [facility] 05-30-2023 15:27-0500 Respiratory rate 16 /min Francine Sarabia [facility] 05-30-2023 15:27-0500 SaO2% (BldA) [Mass fraction] 98 % Francineeduardo Sarabia [facility] 05-30-2023 15:27-0500 Systolic blood pressure 125 mm[Hg] Francine Saraiba [facility] 05-30-2023 13:25-0500 Blood Pressure Location Francineeduardo Sarabia [facility] 05-30-2023 13:25-0500 Heart rate 60 /min Francineeduardo Sarabia [facility] 05-30-2023 13:25-0500 Mean blood pressure 80 mm[Hg] Francineeduardo Sarabia [facility] 05-26-2023 12:48-0500 Diastolic blood pressure 47 mm[Hg] Cristo Zheng MD Work Phone: [facility] 05-26-2023 12:48-0500 Heart rate 77 /min Cristo Zheng MD Work Phone: [facility] 05-26-2023 12:48-0500 Respiratory rate 14 /min Cristo Zheng MD Work Phone: [facility] 05-26-2023 12:48-0500 SaO2% (BldA) [Mass fraction] 96 % Cristo Zheng MD Work Phone: [facility] 05-26-2023 12:48-0500 Systolic blood pressure 118 mm[Hg] Cristo Zheng MD Work Phone: [facility] 05-26-2023 11:04-0500 Body temperature 96.8 [degF] Cristo Zheng MD Work Phone: [facility] 05-26-2023 08:02-0500 Body height 157.5 cm Cristo Zheng MD Work Phone: [facility] 05-26-2023 08:02-0500 Body mass index (BMI) [Ratio] 36.4 kg/m2 Cristo Zheng MD Work Phone: [facility] 05-26-2023 08:02-0500 Body weight 90.27 kg Cristo Zheng MD Work Phone: [facility] 05-23-2023 13:56-0500 Blood Pressure Location Reid NILL [facility] [place] 05-23-2023 13:56-0500 Diastolic blood pressure 54 mm[Hg] Reid NILL [facility] [place] 05-23-2023 13:56-0500 Heart rate 70 /min Reid NILL [facility] [place] 05-23-2023 13:56-0500 Respiratory rate 16 /min Reid NILL [facility] 05-23-2023 13:56-0500 Systolic blood pressure 112 mm[Hg] Reid NILL [facility] 05-18-2023 09:37-0500 Body temperature 98.06 [degF] [facility] 05-18-2023 09:37-0500 Diastolic blood pressure 68 mm[Hg] [facility] 05-18-2023 09:37-0500 Heart rate 57 /min [facility] 05-18-2023 09:37-0500 Mean blood pressure 88 mm[Hg] [facility] 05-18-2023 09:37-0500 Respiratory rate 16 /min [facility] 05-18-2023 09:37-0500 SaO2% (BldA) [Mass fraction] 99 % [facility] 05-18-2023 09:37-0500 Systolic blood pressure 128 mm[Hg] [facility] 05-16-2023 11:00-0500 Blood Pressure Location BETHANY LAM [facility] 05-16-2023 11:00-0500 Body temperature 98.42 [degF] BETHANY CLOAK [facility] 05-16-2023 11:00-0500 Diastolic blood pressure 39 mm[Hg] BETHANY CLOAK [facility] 05-16-2023 11:00-0500 Heart rate 56 /min BETHANY CLOAK [facility] 05-16-2023 11:00-0500 Mean blood pressure 58 mm[Hg] BETHANY CLOAK [facility] 05-16-2023 11:00-0500 Respiratory rate 16 /min BETHANY CLOAK [facility] 05-16-2023 11:00-0500 SaO2% (BldA) [Mass fraction] 97 % BETHANY CLOAK [facility] 05-16-2023 11:00-0500 Systolic blood pressure 97 mm[Hg] BETHANY CLOAK [facility] 05-15-2023 07:36-0500 Blood Pressure Location Felix Christofferson [facility] 05-15-2023 07:36-0500 Diastolic blood pressure 44 mm[Hg] Felix Christofferson [facility] 05-15-2023 07:36-0500 Heart rate 54 /min Felix Christofferson [facility] 05-15-2023 07:36-0500 Respiratory rate 20 /min Felix Christofferson [facility] 05-15-2023 07:36-0500 SaO2% (BldA) [Mass fraction] 100 % Felix Christofferson [facility] 05-15-2023 07:36-0500 Systolic blood pressure 138 mm[Hg] Felix Christofferson [facility] 05-08-2023 11:56-0500 Body temperature 97.2 [degF] Edison Chaves MD Work Phone: [facility] 05-08-2023 11:56-0500 Body weight 89.5 kg Edison Chaves MD Work Phone: [facility] 05-08-2023 11:56-0500 Diastolic blood pressure 53 mm[Hg] Edison Chaves MD Work Phone: [facility] 05-08-2023 11:56-0500 Heart rate 62 /min Edison Chaves MD Work Phone: [facility] 05-08-2023 11:56-0500 Respiratory rate 18 /min Edison Chaves MD Work Phone: [facility] 05-08-2023 11:56-0500 SaO2% (BldA) [Mass fraction] 98 % Edison Chaves MD Work Phone: [facility] 05-08-2023 11:56-0500 Systolic blood pressure 112 mm[Hg] Edison Chaves MD Work Phone: [facility] 05-05-2023 12:46-0500 Diastolic blood pressure 62 mm[Hg] Felix Andrew [facility] 05-05-2023 12:46-0500 Heart rate 62 /min Felix Andrew [facility] 05-05-2023 12:46-0500 SaO2% (BldA) [Mass fraction] 98 % Felix Andrew [facility] 05-05-2023 12:46-0500 Systolic blood pressure 138 mm[Hg] Felix Andrew [facility] 05-04-2023 11:24-0500 Body temperature 98.06 [degF] Francine Sarabia [facility] 05-04-2023 11:24-0500 Diastolic blood pressure 50 mm[Hg] Francine Sarabia [facility] 05-04-2023 11:24-0500 Heart rate 53 /min Francine Sarabia [facility] 05-04-2023 11:24-0500 Mean blood pressure 68 mm[Hg] Francine Sarabia [facility] 05-04-2023 11:24-0500 Respiratory rate 16 /min Francine Sarabia [facility] 05-04-2023 11:24-0500 SaO2% (BldA) [Mass fraction] 99 % Francine Sarabia [facility] 05-04-2023 11:24-0500 Systolic blood pressure 104 mm[Hg] Francine Sarabia [facility] 04-28-2023 11:01-0500 Body temperature 97.9 [degF] Shailesh Miranda MD Work Phone: [facility] 04-28-2023 11:01-0500 Diastolic blood pressure 56 mm[Hg] [facility]ailesh [facility] 04-28-2023 11:01-0500 Heart rate 58 /min Shailesh Miranda MD [facility] 04-28-2023 11:01-0500 Respiratory rate 16 /min Shailesh Miranda MD [facility] 04-28-2023 11:01-0500 SaO2% (BldA) [Mass fraction] 97 % Shailesh Miranda MD Work Phone: [email or web address] 04-28-2023 11:01-0500 Systolic blood pressure 137 mm[Hg] Shailesh Miranda MD Work Phone: [email or web address] 04-23-2023 13:30-0500 Body height 157.5 cm Shailesh Miranda MD Work Phone: [employer] 04-23-2023 13:30-0500 Body mass index (BMI) [Ratio] 38.78 kg/m2 Shailesh Miranda MD Work Phone: [employer] 04-23-2023 13:30-0500 Body weight 96.2 kg Shailesh Miranda MD Work Phone: [facility] [employer] 04-18-2023 11:00-0500 Body height 157.48 cm Luc Vargas Other [employer] Other 04-18-2023 11:00-0500 Body mass index (BMI) [Ratio] 38.04 kg/m2 Luc Vargas Other [employer] Other 04-18-2023 11:00-0500 Body temperature 96.3 [degF] Luc Vargas Other [employer] Other 04-18-2023 11:00-0500 Body weight 94.35 kg Luc Vargas Other [employer] Other 04-18-2023 11:00-0500 Diastolic blood pressure 60 mm[Hg] Luc Vargas Other [employer] Other 04-18-2023 11:00-0500 SaO2% (BldA) [Mass fraction] 97 % Luc Vargas Other [employer] Other 04-18-2023 11:00-0500 Systolic blood pressure 128 mm[Hg] Luc Vargas Other [employer] Other 03-30-2023 09:02-0500 Diastolic blood pressure 73 mm[Hg] Radha DURBIN [facility] 03-30-2023 09:02-0500 Mean blood pressure 90 mm[Hg] Radha DURBIN [facility] 03-30-2023 09:02-0500 Systolic blood pressure 124 mm[Hg] Radha DURBIN [facility] 03-30-2023 08:52-0500 Blood Pressure Location Radha DURBIN [facility] 03-30-2023 08:52-0500 Diastolic blood pressure 71 mm[Hg] Radha DURBIN [facility] 03-30-2023 08:52-0500 Heart rate 58 /min Radha DURIBN [facility] 03-30-2023 08:52-0500 SaO2% (BldA) [Mass fraction] 98 % Radha DURBIN [facility] 03-30-2023 08:52-0500 Systolic blood pressure 147 mm[Hg] Radha DURBIN [facility] 03-17-2023 16:05-0500 Body temperature 97.5 [degF] MD Lázaro Riddle Work Phone: [facility] 03-17-2023 16:05-0500 Diastolic blood pressure 78 mm[Hg] MD Lázaro Riddle Work Phone: [facility] 03-17-2023 16:05-0500 Heart rate 63 /min MD Lázaro Riddle Work Phone: [facility] 03-17-2023 16:05-0500 Respiratory rate 16 /min MD Lázaro Riddle Work Phone: [facility] 03-17-2023 16:05-0500 SaO2% (BldA) [Mass fraction] 92 % MD Lázaro Riddle Work Phone: [facility] 03-17-2023 16:05-0500 Systolic blood pressure 186 mm[Hg] MD Lázaro Riddel Work Phone: [facility] 03-17-2023 09:00-0500 Body height 157.48 cm MD Lázaro Riddle Work Phone: [facility] 03-17-2023 08:00-0500 Inhaled oxygen flow rate 2 L/min MD Lázaro Riddle Work Phone: [facility] 03-17-2023 06:13-0500 Body weight 101.5 kg MD Lázaro Riddle Work Phone: [facility] 03-16-2023 12:34-0500 Body mass index (BMI) [Ratio] 40.2 kg/m2 MD Lázaro Riddle Work Phone: [facility] 03-01-2023 12:08-0500 Diastolic blood pressure 68 mm[Hg] MD Lázaro Riddle Work Phone: [facility] 03-01-2023 12:08-0500 Heart rate 69 /min MD Lázaro Riddle Work Phone: [facility] 03-01-2023 12:08-0500 Respiratory rate 20 /min MD Lázaro Riddle Work Phone: [facility] 03-01-2023 12:08-0500 SaO2% (BldA) [Mass fraction] 91 % MD Lázaro Riddle Work Phone: [facility] 03-01-2023 12:08-0500 Systolic blood pressure 160 mm[Hg] MD Lázaro Riddle Work Phone: [facility] 03-01-2023 07:03-0500 Body height 157.48 cm MD Lázaro Riddle Work Phone: [facility] 03-01-2023 07:03-0500 Body weight 99.79 kg MD Lázaro Riddle Work Phone: [facility] 02-14-2023 11:45-0500 Body height 157.48 cm Luc Vargas Other [employer] Other 02-14-2023 11:45-0500 Body mass index (BMI) [Ratio] 38.77 kg/m2 Luc Vargas Other [employer] Other 02-14-2023 11:45-0500 Body temperature 97.8 [degF] Luc Vargas Other [employer] Other 02-14-2023 11:45-0500 Body weight 96.16 kg Luc Vargas Other [employer] Other 02-14-2023 11:45-0500 Diastolic blood pressure 68 mm[Hg] Luc Vargas Other [employer] Other 02-14-2023 11:45-0500 SaO2% (BldA) [Mass fraction] 97 % Luc Vargas Other [employer] Other 02-14-2023 11:45-0500 Systolic blood pressure 136 mm[Hg] Luc Vargas Other [employer] Other 01-13-2023 16:15-0400 Diastolic blood pressure 91 mm[Hg] Alejandro Currane [facility] 01-13-2023 16:15-0400 Heart rate 63 /min Alejandro Fransisca [facility] 01-13-2023 16:15-0400 Respiratory rate 18 /min Alejandro Currane [facility] 01-13-2023 16:15-0400 SaO2% (BldA) [Mass fraction] 98 % Alejandro Fransisca [facility] 01-13-2023 16:15-0400 Systolic blood pressure 144 mm[Hg] [facility]isc[facility] [facility] 01-13-2023 13:26-0400 Body temperature 97.52 [degF] Alejandro Gongora [facility] 01-13-2023 13:26-0400 Diastolic blood pressure 55 mm[Hg] Alejandro Gongora [facility] 01-13-2023 13:26-0400 Heart rate 62 /min Alejandro Gongora [facility] 01-13-2023 13:26-0400 Respiratory rate 18 /min Alejandro Gongora [facility] 01-13-2023 13:26-0400 SaO2% (BldA) [Mass fraction] 97 % Alejandro Gongora [facility] 01-13-2023 13:26-0400 Systolic blood pressure 122 mm[Hg] Alejandro Gongora [facility] 06-27-2022 11:30-0400 Body height 157.48 cm Luc Vargas Other [facility] Other 06-27-2022 11:30-0400 Body mass index (BMI) [Ratio] 39.87 kg/m2 Luc Vargas Other [facility] Other 06-27-2022 11:30-0400 Body temperature 96.8 [degF] Luc Vargas Other [facility] Other 06-27-2022 11:30-0400 Body weight 98.88 kg Luc Vargas Other [facility] Other 06-27-2022 11:30-0400 Diastolic blood pressure 48 mm[Hg] Luc Vargas Other [facility] Other 06-27-2022 11:30-0400 SaO2% (BldA) [Mass fraction] 93 % Luc Buehrer Other [facility] Other 06-27-2022 11:30-0400 Systolic blood pressure 220 mm[Hg] Luc Buehrer Other [facility] Other 10-26-2021 13:50-0400 Body height 157.48 cm Luc Bergrer Other [facility] Other 10-26-2021 13:50-0400 Body mass index (BMI) [Ratio] 40.23 kg/m2 Luc Bergrer Other [facility] Other 10-26-2021 13:50-0400 Body temperature 96.3 [degF] Luc Bergrer Other [facility] Other 10-26-2021 13:50-0400 Body weight 99.79 kg Luc Bergrer Other [facility] Other 10-26-2021 13:50-0400 Diastolic blood pressure 60 mm[Hg] Luc Marquezehrer Other [facility] Other 10-26-2021 13:50-0400 SaO2% (BldA) [Mass fraction] 96 % Luc Buehrer Other [facility] Other 10-26-2021 13:50-0400 Systolic blood pressure 160 mm[Hg] Luc Buehrer Other [facility] Other Encounters Encounter Date Encounter Type Care Provider Facility Start: 10-30-2023 ambulatory Lázaro Rehan Venkatesh [facility] Start: 08-25-2023 End: 08-25-2023 Patient encounter procedure Francine Sarabia [facility] Start: 08-25-2023 End: 08-25-2023 Emergency department patient visit Shankar Martin [facility] Start: 08-23-2023 End: 08-24-2023 ambulatory Francine Sarabia Facility:[facility] Start: 08-23-2023 End: 08-23-2023 Patient encounter procedure Francine Sarabia [facility] Start: 08-22-2023 End: 08-23-2023 ambulatory Francine Sarabia Facility:[facility] Start: 08-22-2023 End: 08-22-2023 Patient encounter procedure Francine Sarabia [facility] Start: 08-15-2023 End: 08-16-2023 ambulatory Lázaro Van Venkatesh [facility] Start: 08-11-2023 End: 08-12-2023 ambulatory Francine Sarabia Facility:[facility] Start: 08-11-2023 End: 08-11-2023 Patient encounter procedure Francine Sarabia [facility] Start: 08-09-2023 End: 08-10-2023 ambulatory Francine Sarabia Facility:[facility] Start: 08-09-2023 End: 08-09-2023 Patient encounter procedure Francine Sarabia [facility] Start: 08-08-2023 End: 08-09-2023 ambulatory Francine Sarabia Facility:[facility] Start: 08-08-2023 End: 08-08-2023 Patient encounter procedure Francine Sarabia [facility] Start: 07-31-2023 End: 08-01-2023 ambulatory Lázaro Riddle Facility:[facility] Start: 07-28-2023 End: 07-29-2023 ambulatory Francine Sarabia Facility:[facility] Start: 07-28-2023 End: 07-28-2023 Patient encounter procedure Francine Sarabia [facility] Start: 07-26-2023 End: 07-27-2023 ambulatory Francine Sarabia Facility:[facility] Start: 07-26-2023 End: 07-26-2023 Patient encounter procedure Francine Sarabia [facility] Start: 07-25-2023 End: 07-25-2023 ambulatory Luc Vargas Facility:[facility] Start: 07-25-2023 End: 07-26-2023 ambulatory MD Lázaro Riddle Work Phone: [facility] Work Phone: Start: 07-25-2023 End: 07-25-2023 Patient encounter procedure MD Lázaro Riddle Work Phone: [facility] Work Phone: Start: 07-24-2023 End: 07-25-2023 ambulatory Beverley Velarde Facility:[facility] Start: 07-24-2023 End: 07-24-2023 Patient encounter procedure Beverley Velarde [facility] Start: 07-17-2023 End: 07-18-2023 ambulatory Candis Velázquez Nina Facility:[facility] Start: 07-17-2023 End: 07-17-2023 Lab Drop off Candis L Nina [facility] Start: 07-11-2023 End: 08-10-2023 ambulatory Lázaro Riddle Facility:[id number] Start: 07-06-2023 End: 07-10-2023 Evaluation and management of inpatient Scooby CHOUDHARY Facility:[facility] Start: 07-06-2023 End: 07-10-2023 Evaluation and management of inpatient Scooby CHOUDHARY [facility] Start: 07-06-2023 End: 07-07-2023 ambulatory Francine Sarabia Facility:[facility] Start: 07-06-2023 End: 07-06-2023 Patient encounter procedure Francine Fieldsrejidarío [facility] Start: 06-30-2023 End: 07-01-2023 ambulatory Francine Fieldsrejidarío Facility:[facility] Start: 06-30-2023 End: 06-30-2023 Patient encounter procedure Francine Fieldschinmay [facility] Start: 06-28-2023 End: 06-29-2023 ambulatory BETHANY L CAROLE Facility:[facility] Start: 06-28-2023 End: 06-28-2023 Patient encounter procedure BETHANY L KIMAK [facility] Start: 06-27-2023 End: 06-28-2023 ambulatory Francine Sarabia Facility:[facility] Start: 06-27-2023 End: 06-27-2023 Patient encounter procedure Francine Sarabia [facility] Start: 06-16-2023 End: 06-17-2023 ambulatory Francine Fieldsrejidarío Facility:[facility] Start: 06-16-2023 End: 06-16-2023 Patient encounter procedure Francine Sarabia [facility] Start: 06-14-2023 End: 06-15-2023 ambulatory Francine Sarabia Facility:[facility] Start: 06-14-2023 End: 06-14-2023 Patient encounter procedure Francine Fieldschinmay [facility] Start: 06-13-2023 End: 06-14-2023 ambulatory Francine Donnierejidarío Facility:[facility] Start: 06-13-2023 End: 06-13-2023 Patient encounter procedure Francine Cornell [facility] Start: 06-09-2023 End: 06-10-2023 ambulatory Felix Andrew Facility:[facility] Start: 06-09-2023 End: 06-09-2023 Patient encounter procedure Felix Andrew [facility] Start: 06-07-2023 End: 06-08-2023 ambulatory Reid R NILL Facility: [facility] Start: 06-07-2023 End: 06-07-2023 Patient encounter procedure Reid R NILL General Surgery Nill/Said [facility] Start: 06-06-2023 End: 06-07-2023 ambulatory Lázaro Riddle Facility:[facility] Start: 06-06-2023 End: 06-07-2023 ambulatory Lázaro Riddle Facility:[facility] [place] Start: 06-06-2023 End: 06-07-2023 ambulatory Francine Sarabia Facility:[facility] Start: 06-02-2023 End: 06-03-2023 ambulatory Francine Sarabia Facility:[facility] Start: 06-02-2023 End: 06-02-2023 Patient encounter procedure Francine Sarabia [facility] Start: 05-31-2023 End: 06-01-2023 ambulatory Francine Sarabia Facility:[facility] Start: 05-31-2023 End: 05-31-2023 Patient encounter procedure Francine Sarabia [facility] Start: 05-30-2023 End: 05-31-2023 ambulatory Francine Sarabia Facility:[facility] Start: 05-30-2023 End: 05-30-2023 Patient encounter procedure Francine Sarabia [facility] Start: 05-26-2023 End: 05-27-2023 ambulatory CRISTO TEBA V [facility] Start: 05-26-2023 End: 05-26-2023 Subsequent hospital visit by physician Campbell X[facility] [place] [facility] Comment on above: Arrived Start: 05-26-2023 End: 05-26-2023 ambulatory CRISTO TEBA V [facility] Start: 05-26-2023 End: 05-26-2023 Subsequent hospital visit by physician Cristo Duff MD Work Phone: [facility] Comment on above: Lymphadenopathy (Natacha beverley Dx); Lung nodule Lung nodule Start: 05-24-2023 End: 05-25-2023 ambulatory Reid OROSCOL Facility:CD:[id number] Start: 05-23-2023 End: 05-24-2023 ambulatory Reid R KWESIL Facility:[facility] Start: 05-23-2023 End: 05-23-2023 Patient encounter procedure Reid R KWESIL General Surgery Nill/Said [place] Start: 05-19-2023 End: 05-19-2023 Office consultation new/estab patient 60 min [facility] HOME PARAPROFESSIONAL-SENIOR ANALYTIC CONSULTANT Work Phone: [facility] Comment on above: Lung nodule (Primary Dx) Start: 05-19-2023 End: 05-20-2023 ambulatory [facility] Ambulatory Start: 05-19-2023 ambulatory Francine Sarabia Facil ity:[facility] Start: 05-18-2023 Evaluation and management of inpatient EDISON Marta [facility] Start: 05-18-2023 End: 05-19-2023 ambulatory Francine Sarabia Facility:[facility] Start: 05-18-2023 End: 05-18-2023 Patient encounter procedure Francine Sarabia [facility] Start: 05-16-2023 End: 05-17-2023 ambulatory BETHANY LAM Facility:[facility] Start: 05-16-2023 End: 05-16-2023 Patient encounter procedure BETHANY LAM [facility] Start: 05-15-2023 End: 05-15-2023 ambulatory Felix Andrew Facility:[facility] Start: 05-15-2023 End: 05-15-2023 Admission to same day surgery center Felix Andrew [facility] Start: 05-12-2023 ambulatory Francine Sarabia Facil ity:[facility] Start: 05-10-2023 End: 08-09-2023 ambulatory Francine Sarabia Facility:[facility] Start: 05-10-2023 End: 08-08-2023 Recurring Francine Sarabia [facility] Start: 05-08-2023 End: 05-09-2023 ambulatory LÁZARO RIDDLE [facility] Start: 05-08-2023 End: 05-09-2023 ambulatory EDISON CHAVES [facility] Start: 05-08-2023 End: 05-08-2023 Office outpatient new 45 minutes Edison Chaves MD Work Phone: [facility] Comment on above: 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); Malignant neoplasm of head of pancreas (CMS/HCC) Start: 05-08-2023 ambulatory Mhd Jabier Ferrer cility:[facility] Start: 05-05-2023 End: 05-06-2023 ambulatory Felix Andrew Facility:[facility] Start: 05-05-2023 End: 05-05-2023 Patient encounter procedure Felix Andrew [facility] Start: 05-05-2023 End: 05-06-2023 ambulatory Felix Andrew Facility:[facility] Start: 05-04-2023 End: 05-05-2023 ambulatory Francine Sarabia Facility:[facility] Start: 05-04-2023 End: 05-05-2023 ambulatory Lázaro Riddle Facility:[facility] Start: 05-04-2023 End: 05-04-2023 Patient encounter procedure Felix Andrew [facility] Start: 05-04-2023 End: 05-04-2023 Patient encounter procedure Francine Sarabia [facility] Start: 05-02-2023 End: 05-03-2023 ambulatory Lázaro Riddle [facility] Start: 05-01-2023 End: 06-01-2023 ambulatory Lázaro Riddle Facility:CD:[id number] Start: 04-25-2023 End: 04-26-2023 ambulatory Lázaro Riddle Facility:[facility] Start: 04-23-2023 End: 04-28-2023 Evaluation and management of inpatient LUC Peña [facility] Start: 04-23-2023 End: 04-28-2023 Evaluation and management of inpatient Shailesh Miranda MD Work Phone: [facility] Comment on above: Obstructive jaundice ; Pancreatic mass Start: 04-18-2023 Postop follow up vis it related to original px Luc VALDEZ [facility] Start: 04-18-2023 End: 04-18-2023 ambulatory COLE MINAYA [facility] Other Start: 04-11-2023 End: 04-11-2023 ambulatory COLE MINAYA Not Available Start: 04-10-2023 End: 04-11-2023 ambulatory Lázaro Riddle Facility:[facility] [place] Start: 04-04-2023 End: 04-04-2023 ambulatory COLE MINAYA Not Available Start: 03-31-2023 End: 04-01-2023 ambulatory Cole Minaya Facility:[facility] Start: 03-31-2023 End: 03-31-2023 Lab Drop off Cole Minaya [facility] Start: 03-30-2023 End: 03-31-2023 ambulatory CELSO DURBIN Facility:[facility] Start: 03-30-2023 End: 03-30-2023 Patient encounter procedure Radha DURBIN [facility] Start: 03-24-2023 End: 03-25-2023 ambulatory Candis Melania Nina Facility:[facility] [place] Start: 03-22-2023 End: 03-23-2023 ambulatory Lázaro Riddle Facility:[facility] Start: 03-22-2023 End: 03-22-2023 ambulatory COLE BARAKATCE Not Available Start: 03-21-2023 End: 03-22-2023 ambulatory Lázaro Riddle Facility:[facility] [place] Start: 03-16-2023 End: 03-17-2023 Evaluation and management of inpatient Luc Vargas Facility:[facility] Start: 03-16-2023 End: 03-17-2023 Evaluation and management of inpatient MD Lázaro Riddle Work Phone: [facility] Work Phone: Start: 03-01-2023 End: 03-01-2023 ambulatory Lázaro Riddle Facility:[facility] Start: 03-01-2023 End: 03-01-2023 Admission to same day surgery center MD Lázaro Riddle Work Phone: [facility]-Interventional Radiology Work Phone: Start: 03-01-2023 End: 03-01-2023 ambulatory MD Lázaro Riddle Work Phone: [facility] Work Phone: Start: 02-17-2023 End: 02-17-2023 ambulatory COLE MINAYA Not Available Start: 02-14-2023 End: 02-14-2023 ambulatory Luc Vargas Other [facility] Other Start: 02-14-2023 Office outpatient vi sit 25 minutes Luc Vargas [facility] Vascular Surgery Start: 01-31-2023 End: 02-01-2023 ambulatory Cole D Dolce Facility:[facility] Start: 01-31-2023 End: 01-31-2023 Patient encounter procedure Cole Minaya [facility] Start: 01-24-2023 End: 01-25-2023 ambulatory Cole Minaya Facility:[facility] Start: 01-24-2023 End: 01-24-2023 Lab Drop off Cole Minaya [facility] Start: 01-19-2023 ambulatory Felix Andrew Facility:[facility] Start: 01-17-2023 End: 01-18-2023 ambulatory Lázaro Riddle Facility:[facility] [place] Start: 01-16-2023 ambulatory Lázaro Riddle Facility : [facility] Start: 01-13-2023 End: 01-13-2023 Emergency department patient visit Alejandro Gongora Facility:[facility] Start: 01-13-2023 End: 01-14-2023 ambulatory Lázaro Riddle Facility:[facility] Start: 01-13-2023 End: 01-13-2023 Emergency department patient visit Alejandro Gongora [facility] Start: 01-02-2023 End: 01-03-2023 ambulatory Lázaro Riddle Facility: [facility] [place] Start: 01-02-2023 End: 01-02-2023 ambulatory MD Yuni Mast Work Phone: [facility] Work Phone: Start: 01-02-2023 End: 01-02-2023 Patient encounter procedure MD Yuni Mast Work Phone: [facility] Start: 12-08-2022 End: 12-09-2022 ambulatory Felix Andrew Facility:[facility] Start: 11-16-2022 End: 11-17-2022 ambulatory Lázaro Riddle Facility: [facility] Start: 06-27-2022 Office outpatient vi sit 25 minutes Luc Vargas [facility] Vascular Surgery Start: 06-27-2022 End: 03-27-2023 ambulatory MD Yuni Mast Work Phone: [facility] Work Phone: Start: 06-27-2022 End: 06-27-2022 Patient encounter procedure MD Yuni Mast Work Phone: [facility] Start: 06-25-2022 End: 06-26-[address] YUNI MAST . Facility:[facility] Start: 01-17-[address] YUNI MAST . Facil ity:[facility] Start: 11-26-2021 End: 11-27-[address] YUNI MAST . Facility:[facility] Start: 11-17-2021 End: 11-18-2021 Evaluation and management of inpatient DR AMY MADDEN Facility:[facility] Start: 11-03-2021 End: 11-04-[address] YUNI MAST . Facility:[facility] Start: 10-26-2021 End: 10-26-2021 ambulatory Luc Vargas Other [facility] Other Start: 10-26-2021 Office outpatient vi sit 25 minutes Luc Vargas [facility] Vascular Surgery Start: 08-18-2021 End: 08-19-[address] YUNI MAST . Facility:[facility] Start: 08-16-2021 End: 08-17-[address] YUNI MAST . Facility:[facility] Start: 08-02-2021 End: 08-03-[address] YUNI MAST . Facility:[facility] Start: 08-07-2020 End: 08-08-2020 ambulatory CHARMAINE SETH Facility:[facility] Procedures Date Procedure Procedure Detail Performing Clinician Start: 05-26-2023 XR CHEST 1 VIEW winter Start: 05-26-2023 BRONCHOSCOPY EDISON WINTER Start: 05-26-2023 SURGICAL PATHOLOGY EXAM EDISON WINTER Start: 05-26-2023 Radiologic exam chest single view Alyssa Padgett MD Work Phone: Start: 05-26-2023 CYTOLOGY CONSULTATION (NON-GYNECOLOGIC) winter Start: 05-26-2023 Bronchoscopy Catia Lyon MD Work Phone: Start: 05-26-2023 CT CHEST WITHOUT FOR [facility] winter Start: 05-26-2023 Ct thorax w/o contrast material Catia Lyon MD Work Phone: Start: 05-24-2023 Insertion of implantable venous access port Reid SHIPLEY Start: 05-15-2023 Cardiac catheterization Francine Sarabjit cruz Comment on above: 08/21 Start: 05-15-2023 Catheterization of left heart Felix Farrar rogerradha Start: 05-08-2023 CANCER ANTIGEN 19-9 EDISON WINTER Start: 05-08-2023 CBC panel - Blood by Automated count EDISON WINTER Start: 05-08-2023 COAGULATION SCREEN [place] WINTER Start: 05-08-2023 Comprehensive metabolic 2000 panel - Serum or Plasma [place] W[place] Start: 05-08-2023 Hemoglobin A1c/Hemoglobin.total in Blood [place] W[place] Start: 05-08-2023 CASE REQUEST OPERATING ROOM EDISON WELCH Start: 04-28-2023 Glucose blood reagent strip Luc P Bl ood DO Work Phone: Start: 04-28-2023 Antibody screen Shailesh Miranda MD Work Phone: Start: 04-28-2023 Glucose blood reagent strip Luc P Bl ood DO Work Phone: Start: 04-28-2023 Comprehensive metabolic panel Luc P Blood DO Work Phone: Start: 04-28-2023 Blood count hemoglobin Isra WEINSTEIN RN - BLOW OFF WORKER Work Phone: Start: 04-27-2023 End: 04-27-2023 Blood count hemoglobin Isra WEINSTEIN RN - BLOW OFF WORKER Work Phone: Start: 04-27-2023 Glucose blood reagent strip Luc P Bl ood DO Work Phone: Start: 04-27-2023 Blood count complete auto&auto difrntl wbc Isra Farley HOME PARAPROFESSIONAL - BLOW OFF WORKER Work Phone: Start: 04-27-2023 Glucose blood reagent strip Luc P Bl ood DO Work Phone: Start: 04-27-2023 vasc access sits vsl patency ndl entry Isra Farley HOME PARAPROFESSIONAL - BLOW OFF WORKER Work Phone: Start: 04-27-2023 Assay of lipase Isra Farley HOME PARAPROFESSIONAL - BLOW OFF WORKER Work Phone: Start: 04-27-2023 BASIC METABOLIC PANEL W/ REFLEX TO MG FOR LOW K Isra Farley HOME PARAPROFESSIONAL - BLOW OFF WORKER Work Phone: Start: 04-27-2023 Hepatic function panel Isra Cary Chin AP RN - BLOW OFF WORKER Work Phone: Start: 04-27-2023 End: 04-27-2023 Transfusion of packed red blood cells Willow Rodriguez Shaan HOME PARAPROFESSIONAL - SENIOR ANALYTIC CONSULTANT Work Phone: Start: 04-26-2023 Blood count hemoglobin Isra Cary Miguelito AP RN - BLOW OFF WORKER Work Phone: Start: 04-26-2023 Assay of ferritin Karin Cronin MD Work Phone: Start: 04-26-2023 Immunoassay tumor antigen quantitative ca 19-9 Karin Cronin MD Work Phone: Start: 04-26-2023 VITAMIN B12 & FOLATE Karin Cronin MD Work Phone: Start: 04-26-2023 Blood count reticulocyte automated Isra Farley HOME PARAPROFESSIONAL - BLOW OFF WORKER Work Phone: Start: 04-26-2023 Glucose blood reagent strip Luc Harding ood DO Work Phone: Start: 04-26-2023 End: 04-26-2023 Transfusion of packed red blood cells Isra Farley HOME PARAPROFESSIONAL - BLOW OFF WORKER Work Phone: Start: 04-26-2023 Glucose blood reagent strip Luc P Bl ood DO Work Phone: Start: 04-26-2023 Creatine kinase total Isra Farley APR N - BLOW OFF WORKER Work Phone: Start: 04-26-2023 TROP/MYOGLOBIN Isra Farley HOME PARAPROFESSIONAL - BLOW OFF WORKER Work Phone: Start: 04-26-2023 Blood typing serologic abo Isra kaplan HOME PARAPROFESSIONAL - BLOW OFF WORKER Work Phone: Start: 04-26-2023 End: 04-26-2023 Assay of lipase Isra Farley HOME PARAPROFESSIONAL - BLOW OFF WORKER Work Phone: Start: 04-26-2023 SURGICAL PATHOLOGY REPORT Shailehs Miranda MD Work Phone: Start: 04-25-2023 End: 04-25-2023 Glucose blood reagent strip Luc england DO Work Phone: Start: 04-25-2023 Fluoroscopy during [...] Phone: Start: 04-24-2023 Ct thorax w/contrast material Isra lowe HOME PARAPROFESSIONAL - BLOW OFF WORKER Work Phone: Start: 04-24-2023 Glucose blood reagent strip Shailesh Ballard i, MD Work Phone: Start: 04-24-2023 Glucose blood reagent strip Shailesh Ballard i, MD Work Phone: Start: 04-24-2023 Mri abdomen w/o & w/contrast material Isra Farley HOME PARAPROFESSIONAL - BLOW OFF WORKER Work Phone: Start: 04-24-2023 Glucose blood reagent strip Shailesh Ballard i, MD Work Phone: Start: 04-24-2023 Us abdominal real time w/image limited Isra Farley HOME PARAPROFESSIONAL - BLOW OFF WORKER Work Phone: Start: 04-24-2023 Assay of lipase Isra Farley HOME PARAPROFESSIONAL - BLOW OFF WORKER Work Phone: Start: 04-23-2023 Procalcitonin (pct) Isra Farley HOME PARAPROFESSIONAL - BLOW OFF WORKER Work Phone: Start: 04-23-2023 Assay of urea nitrogen quantitative Isra Farley HOME PARAPROFESSIONAL - BLOW OFF WORKER Work Phone: Start: 03-16-2023 Antibody screen Lázaro Riddle Comment on above: Order Comment: NO TIME OF DRAW ON TUBE. 2 SETS OF INITIALS 'CL' ON TUBE. SHIRLEY/RN WHO LANCE PATIENT SAID SHE LANCE SAMPLE AT 1035. P Result Comment: PERF ORMED BY: [facility] [address] [place] [address] PATHOLOGIST MINGLER OPERATOR KOREY FRANKS M.D. Start: 03-16-2023 Femoral endarterectomy MD Lázaro Riddle Work Phone: Start: 03-01-2023 Lower limb angiography MD Lázaro Riddle Work Phone: Start: 06-27-2022 Doppler ultrasonography of bilateral carotid arteries MD Yuni Mast Work Phone: Amputation of left great toe Reid SHIPLEY Cardiac catheterization Alejandro Gongora Comment on above: 08/21 Esophagogastroduodenoscopy Marta SHIPLEY Fluoroscopy guided i nsertion of stent into bile duct Reid SHIPLEY Kidney biopsy Reid SHIPLEY Surgery (qualifier value) Ike DURBIN Plan of Treatment Date Care Activity Detail Author Start: 07-21-2026 DTaP/Tdap/Td vaccine (2 - Td or Tdap) DTaP/Tdap/Td vaccine (2 - Td or Tdap) [facility] Start: 07-21-2026 DTaP/Tdap/Td Vaccine s (2 - Td or Tdap) DTaP/Tdap/Td Vaccines (2 - Td or Tdap) [facility] Start: 05-08-2024 Creatinine measurement Creatinine Le sam [facility] Start: 05-08-2024 Diabetes mellitus screening Diabetes Screening [facility] Start: 05-08-2024 Potassium measurement Potassium Leve l [facility] Start: 04-28-2024 GFR test (Diabetes, CKD 3-4, OR last GFR 1559) GFR test (Diabetes, CKD 3-4, OR last GFR 1559) [facility] Start: 08-06-2023 Hemoglobin A1c measurement Ivania betes: Hemoglobin A1C [facility] Start: 07-25-2023 Ankle brachial press ure index [facility] Start: 07-03-2023 End: 07-03-2023 Patient encounter procedure 07/03/2023 10:00 AM EDT Office Visit [facility] [address] [place] [address] [place] [address] [facility] Department of [place] [address] [facility] Start: 05-26-2023 End: 05-26-2023 Patient encounter procedure [facility] Start: 05-08-2023 End: 05-08-2024 Cancer Ag 19-9 [Units/volume] in Serum or Plasma [facility] Service Area Work Phone: Comment on above: Expected: 05/08/2023 (Approximate), Expires: 05/08/2024 Start: 05-08-2023 End: 05-08-2024 CBC panel - Blood by Automated count [facility] Work Phone: Comment on above: Expected: 05/08/2023 (Approximate), Expires: 05/08/2024 Start: 05-08-2023 End: 05-08-2024 Comprehensive metabolic 2000 panel - Serum or Plasma [facility] Work Phone: Comment on above: Expected: 05/08/2023 (Approximate), Expires: 05/08/2024 Start: 05-08-2023 End: 05-08-2024 EKG 12 lead EKG 12 lead ECG Routine Neoplasm of uncertain behavior of pancreas Expected: 05/08/2023 (Approximate), Expires: 05/08/2024 [facility] Work Phone: Comment on above: Expected: 05/08/2023 (Approximate), Expires: 05/08/2024 Start: 05-08-2023 End: 05-08-2024 Hemoglobin A1c/Hemoglobin.total in Blood [facility] Work Phone: Comment on above: Expected: 05/08/2023 (Approximate), Expires: 05/08/2024 Start: 05-08-2023 End: 07-07-2023 PT and aPTT panel - Platelet poor plasma by Coagulation assay [facility] Work Phone: Comment on above: Expected: 05/08/2023 (Approximate), Expires: 07/07/2023 Start: 05-08-2023 End: 05-08-2024 Request for Pre-Admission Testing Visit Request for Pre-Admission Testing Visit Procedures Routine Neoplasm of uncertain behavior of pancreas Expected: 05/08/2023 (Approximate), Expires: 05/08/2024 [facility] Work Phone: Comment on above: Expected: 05/08/2023 (Approximate), Expires: 05/08/2024 Start: 03-17-2023 [facility] Start: 03-17-2023 [facility] Start: 03-16-2023 Referral to clinical veneer production machine operator [facility] Start: 03-16-2023 Hospital admission [facility] Start: 03-01-2023 [facility] Start: 2018 Respiratory Syncytia l Virus (RSV) or age 60 yrs+ (1 - 1-dose 60+ series) Respiratory Syncytial Virus (RSV) or age 60 yrs+ (1 - 1-dose 60+ series) [facility] Start: 2008 Screening for malign ant neoplasm of breast Breast cancer screen [facility] Start: 2008 Screening for malign ant neoplasm of lung Lung Cancer Screening [facility] Start: 2008 Shingles vaccine (1 of 2) Kimbrough gles vaccine (1 of 2) [facility] Start: 2008 Zoster Vaccines (1 of 2) Zoste r Vaccines (1 of 2) [facility] Start: 08-31-2003 Screening for malign ant neoplasm of colon [facility] Start: 1998 Screening for malign ant neoplasm of breast Mammogram [facility] Start: 1988 Screening for malign ant neoplasm of cervix [facility] Start: 08-31-1979 Screening for malign ant neoplasm of cervix [facility] Start: 1977 Urine screening for protein Diabetes: Urine Protein Screening [facility] Start: 1976 Diabetes mellitus screening Diabetes Screening [facility] Start: 1976 Glaucoma screening Diabetic retinal exam [facility] Start: 1976 Hepatitis C screening B [facility] Start: 1976 Urine screening for protein Diabetic Alb to Cr ratio (uACR) test [facility] Start: 1973 HIV screening HIV screen [facility] Start: 1970 Depression Screen Depression Screen [facility] Start: 1968 Diabetic foot examination [facility] Start: 1968 Glaucoma screening Diabetes: R etinopathy Screening [facility] Start: 1968 Hemoglobin A1c measurement A1C test (Diabetic or Prediabetic) [facility] Start[facility] 1968 Lipid panel Lipids [facility] Start: 1964 Pneumococcal 0-64 ye ars Vaccine (1 - PCV) Pneumococcal 0-64 years Vaccine (1 - PCV) [facility] Start: 1964 Pneumococcal Vaccine : 65+ Years (1 - PCV) Pneumococcal Vaccine: 65+ Years (1 - PCV) [facility] Start: 1964 Pneumococcal Vaccine : Pediatrics (0 to 5 Years) and At-Risk Patients (6 to 64 Years) (1 - PCV) Pneumococcal Vaccine: Pediatrics (0 to 5 Years) and At-Risk Patients (6 to 64 Years) (1 - PCV) [facility] Start: 08-31-1959 MMR Vaccines (1 of 1 - Standard series) MMR Vaccines (1 of 1 - Standard series) [facility] Start: 03-02-1959 COVID-19 Vaccine (#1) COVID-19 Vacci ne (#1) [facility] [employer] Start: 1958 Creatinine measurement Creatinine Le sam [facility] Start: 1958 Echocardiography Echocardiogram [facility] Start: 1958 HIV screening HIV Screening [facility] Start: 1958 Lipid panel Lipid Panel [facility] Start: 1958 Potassium measurement Potassium Leve l [facility] Start: 1958 Screening for malign ant neoplasm of colon [facility] Start: 1958 Yearly Adult Physical Yearly Adult P hysical [facility] End: 05-26-2023 Continuous Pulse oximetry, In Phase 1 Continuous Pulse oximetry, In Phase 1 Respiratory Care Routine Continuous until discontinued starting 05/26/2023 [facility] Work Phone: Comment on above: Continuous until dis continued starting 05/26/2023 Glucose [Mass/volume ] in Serum or Plasma POCT Glucose Point of Care Testing STAT As Needed until discontinued starting [facility]/24/2023 [facility]: As Needed until disc ontinued starting 04/24/2023 End: 04-26-2023 Glucose [Mass/volume] in Serum or Plasma [facility] Comment on above: Every 30 Min for 2 O ccurrences starting 04/26/2023 until 04/26/2023 Every Hour (Lab POC) for 2 Occurrences starting 04/26/2023 until 04/26/2023 As Needed until disc ontinued starting 04/26/2023 End: 04-27-2023 Glucose [Mass/volume] in Serum or Plasma POCT Glucose Point of Care Testing Routine 4X Daily (AC & HS) for 24 Hours starting 04/26/2023 until 04/27/2023 [facility] Comment on above: 4X Daily (AC & HS) f or 24 Hours starting 04/26/2023 until 04/27/2023 Glucose [Mass/volume ] in Serum or Plasma POCT Glucose Point of Care Testing - Docked Device Routine As needed (Lab) until discontinued starting 05/26/2023 [facility] Service Area Work Phone: Comment on above: As needed (Lab) unti l discontinued starting 05/26/2023 End: 05-10-2023 Hemoglobin and Hematocrit Hemoglobin and Hematocrit Lab Routine Post Transfusion Post Transfusion Post Transfustion until discontinued starting 04/26/2023 [facility] Comment on above: Post Transfusion Pos t Transfusion Post Transfustion until discontinued starting 04/26/2023 End: 04-29-2023 Hemoglobin and Hematocrit Hemoglobin and Hematocrit Lab Routine Every 6 Hours (Lab) for 3 Days starting 04/26/2023 until 04/29/2023, 5 completed [facility] Comment on above: Every 6 Hours (Lab) for 3 Days starting 04/26/2023 until 04/29/2023, 5 completed End: 05-11-2023 Hemoglobin and Hematocrit Hemoglobin and Hematocrit Lab Routine Post Transfusion Post Transfusion Post Transfustion until discontinued starting 04/27/2023 [facility] Comment on above: Post Transfusion Pos t Transfusion Post Transfustion until discontinued starting 04/27/2023 Intermittent pulse oximetry Pulse Oximetry Spot Check Respiratory Care Routine As Needed until discontinued starting 04/23/2023 [facility] Comment on above: As Needed until disc ontinued starting 04/23/2023 Non-gynecological cy tology method study [facility] Service Area Work Phone: Comment on above: Release Upon Orderin g for 1 Occurrences starting 05/26/2023 Release Upon Orderin g for 1 Occurrences starting 05/26/2023, 1 completed Oxygen therapy [[facility] Initiate Oxygen Therapy Protocol Respiratory Care Routine As Needed until discontinued starting 04/23/2023 [facility] Work Phone: Comment on above: As Needed until disc ontinued starting 04/23/2023 Pancreatectomy total Pancreatect rakan Malignant neoplasm of head of pancreas (CMS/HCC) [facility] Work Phone: Patient Education Arteriogram (DC) [facility] Work Phone: Patient referral [facility] Work Phone: End: 04-26-2023 PREPARE RBC (CROSSMATCH), 1 Units BON [employer] Comment on above: Once for 1 Occurrenc es starting 04/26/2023 until 04/26/2023 End: 04-27-2023 PREPARE RBC (CROSSMATCH), 1 Units PREPARE RBC (CROSSMATCH), 1 Units Blood Bank Routine Once for 1 Occurrences starting 04/27/2023 until 04/27/2023 [facility] Work Phone: Comment on above: Once for 1 Occurrenc es starting 04/27/2023 until 04/27/2023 End: 04-26-2023 SPECIMEN REJECTION [facility] Comment on above: Once for 1 Occurrenc es starting 04/26/2023 until 04/26/2023 End: 04-27-2023 SPECIMEN REJECTION [facility] Comment on above: Once for 1 Occurrenc es starting 04/27/2023 until 04/27/2023 Surgical Pathology Surgical Path ology Lab Routine Obstructive jaundice Pancreatic mass Release Upon Ordering for 1 Occurrences starting 04/25/2023 [facility] Comment on above: Release Upon Orderin g for 1 Occurrences starting 04/25/2023 End: 04-25-2023 SURGICAL PATHOLOGY REPORT SURGICAL PATHOLOGY REPORT Lab Routine Once for 1 Occurrences starting 04/25/2023 until 04/25/2023 [facility] Comment on above: Once for 1 Occurrenc es starting 04/25/2023 until 04/25/2023 Surgical pathology study [facility] Work Phone: Comment on above: Release Upon Orderin g for 1 Occurrences starting 05/26/2023 Release Upon Orderin g for 1 Occurrences starting 05/26/2023, 1 completed [facility] Immunizations Immunization Date Immunization Notes Care Provider Nabil bolton 01-17-2023 influenza, injectabl e, quadrivalent, preservative free [facility] influenza virus vaccine, unspecified formulation Alejandro Gongora [facility] 01-17-2019 influenza virus vaccine, unspecified formulation Alejandro Gongora [facility] 02-19-2018 influenza virus vaccine, unspecified formulation Alejandro Gongora [facility] 02-03-2017 influenza virus vaccine, unspecified formulation Alejandro Gongora [facility] 07-21-2016 tetanus toxoid, reduced diphtheria toxoid, and acellular pertussis vaccine, adsorbed Alejandro Gongora [facility] 01-17-2016 influenza virus vaccine, unspecified formulation Alejandro Gongora [facility] NEGATED: Highlighted row has not occurred!01-02-2023 influenza virus vaccine, unspecified formulation Alejandro Gongora [facility] NEGATED: Highlighted row has not occurred!07-20-2022 SARS-CoV-2 mRNA (tozinameran 5y-11y) vaccine Alejandro Gongora [facility] NEGATED: Highlighted row has not occurred!06-22-2022 influenza virus vaccine, unspecified formulation Alejandro Gongora [facility] NEGATED: Highlighted row has not occurred!06-22-2022 SARS-CoV-2 mRNA (tozinameran 5y-11y) vaccine Alejandro Gongora [facility] Payers Date Payer Category Payer Private Health Insurance [id number] 2023 Self-pay [id number] 2022 Unknown [facility] [id number] 2022-Present [address] [place] [address] [id number]. 7.3.220881.315 1959 Unknown [id number] 1958 Unknown [id number] 2.16.840.1.111082.3.579.2. 647 1958 Unknown [id number] 2.16.840.1.273215.3.579.2. 593 1958 Unknown [id number] 2.16.840.1.191872.3.579.2. 593 1958 Unknown [id number] 2.16.840.1.376347.3.579.2. 593 1958 Unknown [id number] 2.16.840.1.417102.3.579.2. 593 1958 Unknown [id number] 2.16.840.1.908636.3.579.2. 593 1958 Unknown [id number] 2.16.840.1.018281.3.579.2. 593 1958 Unknown [id number] 2.16.840.1.351874.3.579.2. 593 1958 Unknown [id number] 2.16.840.1.178565.3.579.2. 593 1958 Unknown [id number] 2.16.840.1.320645.3.579.2. 593 1958 Unknown [id number] 2.16.840.1.023767.3.579.2. 1259 1958 Unknown [id number] 2.16.840.1.321332.3.579.2. 1259 1958 Unknown [id number] 2.16.840.1.544395.3.579.2. 1259 1958 Unknown [id number] 2.16.840.1.845589.3.579.2. 1259 1958 Unknown [id number] 2.16.840.1.207070.3.579.2. 1259 1958 Unknown [id number] 2.16.840.1.799804.3.579.2. 177 1958 Unknown [id number] 2.16.840.1.453510.3.579.2. 4 1958 Unknown [id number] 2.16.840.1.044759.3.579.2. 1244 1958 Unknown [id number] 2.16.840.1.825785.3.579.2. 1244 1958 Unknown [id number] 2.16.840.1.806490.3.579.2. 1244 1958 Unknown [id number] 2.16.840.1.934076.3.579.2. 1244 1958 Unknown [id number] 2.16.840.1.938492.3.579.2. 1244 1958 Unknown [id number] 2.16.840.1.939062.3.579.2. 1244 1958 Unknown [id number] 2.16.840.1.108086.3.579.2. 1958 Unknown [id number] 2.16.840.1.660215.3.579.2. 1958 Unknown [id number] 2.16.840.1.271131.3.579.2. 1958 Unknown [id number] 2.16.840.1.930137.3.579.2. 1958 Unknown [id number] 2.16.840.1.932791.3.579.2. 1958 Unknown [id number] 2.16.840.1.129331.3.579.2. 1958 Unknown [id number] 2.16.840.1.431386.3.579.2. 1958 Unknown [id number] 2.16.840.1.973632.3.579.2 1958 Unknown [id number] 2.16.840.1.082892.3.579.2 1958 Unknown [id number] 2.16.840.1.225326.3.579.2 1958 Unknown [id number] 2.16.840.1.746266.3.579.2 1958 Unknown [id number] 2.16.840.1.515534.3.579.2 1958 Unknown [id number] 2.16.840.1.976225.3.579.2 1958 Unknown [id number] 2.16.840.1.240382.3.579.2 1958 Unknown [id number] 2.16.840.1.006002.3.579. 1958 Unknown [id number] 2.16.840.1.259440.3.579.2 1958 Unknown [id number] 2.16.840.1.748964.3.579.2 1958 Unknown [id number] 2.16.840.1.484781.3.579.2 1958 Unknown [id number] 2.16.840.1.591757.3.579.2 1958 Unknown [id number] 2.16.840.1.184625.3.579.2 1958 Unknown [id number] 2.16.840.1.172059.3.579.2 1958 Unknown [id number] 2.16.840.1.572227.3.579.2. 1958 Unknown [id number] 2.16.840.1.943700.3.579.2. 1958 Unknown [id number] 2.16.840.1.862390.3.579.2. 1958 Unknown [id number] 2.16.840.1.362431.3.579.2 1958 Unknown [id number] 2.16.840.1.886281.3.579.2 1958 Unknown [id number] 2.16.840.1.877436.3.579. 1958 Unknown [id number] 2.16.840.1.704334.3.579. 1958 Unknown [id number] 2.16.840.1.007255.3.579.2 1958 Unknown [id number] 2.16.840.1.871880.3.579.2 1958 Unknown [id number] 2.16.840.1.337363.3.579.2 1958 Unknown [id number] 2.16.840.1.417379.3.579.2 1958 Unknown [id number] 2.16.840.1.124251.3.579.2 1958 Unknown [id number] 2.16.840.1.878589.3.579.2 1958 Unknown [id number] 2.16.840.1.998092.3.579.2 1958 Unknown [id number] 2.16.840.1.252501.3.579.2 1958 Unknown [id number] 2.16.840.1.689946.3.579.2. 1958 Unknown [id number] 2.16.840.1.594314.3.579.2. 1958 Unknown [id number] 2.16.840.1.731448.3.579.2 1958 Unknown [id number] 2.16.840.1.174326.3.579.2 1958 Unknown [id number] 2.16.840.1.156075.3.579.2 1958 Unknown [id number] 2.16.840.1.547049.3.579.2 1958 Unknown [id number] 2.16.840.1.578454.3.579.2 1958 Unknown [id number] 2.16.840.1.790759.3.579. 1958 Unknown [id number] 2.16.840.1.112518.3.579.2 1958 Unknown [id number] 2.16.840.1.239900.3.579.2 1958 Unknown [id number] 2.16.840.1.857210.3.579.2 1958 Unknown [id number] 2.16.840.1.845052.3.579.2 1958 Unknown [id number] 2.16.840.1.814389.3.579.2 1958 Unknown [id number] 2.16.840.1.183635.3.579.2 1958 Unknown [id number] 2.16.840.1.411686.3.579.2 1958 Unknown [id number] 2.16.840.1.421276.3.579.2 1958 Unknown [id number] 2.16.840.1.660572.3.579.2. 727 1958 Unknown [id number] 2.16.840.1.192807.3.579.2. 72 1958 Unknown [id number] 2.16.840.1.266961.3.579.2. 1958 Unknown [id number] 2.16.840.1.880771.3.579.2. 1958 Unknown [id number] 2.16.840.1.452294.3.579.2. 1958 Unknown [id number] 2.16.840.1.515994.3.579.2. 1958 Unknown [id number] 2.16.840.1.469227.3.579.2. 1958 Unknown [id number] 2.16.840.1.414972.3.579.2. 1958 Unknown [id number] 2.16.840.1.347573.3.579.2. 1958 Unknown [id number] 2.16.840.1.727246.3.579.2. 7 1958 Unknown [id number] 2.16.840.1.966668.3.579.2. 72 Unknown [id number] 2.16.840.1.068059.3.579.2. 531 Unknown [id number] 2.16.840.1.801475.3.579.2. 531 Unknown [id number] 2.16.840.1.682397.3.579.2. 531 Social History Date Type Detail Facility Start: 04-23-2023 End: 05-19-2023 Sex Assigned At [facility] Start: 1960 Sex Assigned At Female [facility] Start: 01-13-2023 End: 12-28-2023 Tobacco smoking status Heavy tobacco smoker (finding) [facility] Tobacco smoking status Never [facility] [place] Start: 03-16-2023 End: 03-16-2023 Tobacco smoking status NHIS Smoker (finding) [facility] Start: 04-03-1972 End: 05-19-2023 Tobacco smoking status NHIS Smokes tobacco daily [facility] Start: 04-03-1972 History of tobacco use Cigarette Smoker [facility] Start: 04-23-2023 End: 05-19-2023 Tobacco use and exposure Smokeless tobacco non-user [facility] Start: 04-26-2023 End: 05-26-2023 Alcohol intake Ex-drinker (finding) [facility] Start: 04-23-2023 End: 05-19-2023 History of Social function [facility] Has the electric, gas, oil, or water company threatened to shut off services in your home in past 12Mo No [facility] (I/We) worried whether (my/our) food would run out before (I/we) got money to buy more. Never true [facility] Start: 1960 Sex Assigned At Not on file B ON [employer] Start: 05-04-2023 End: 08-23-2023 Tobacco smoking status Light tobacco smoker (finding) [facility] Start: 05-08-2023 Tobacco smoking status NHIS Occasional tobacco smoker [facility] Start: 05-08-2023 Alcohol intake Lifetime non-d earle (finding) [facility] Work Phone: Start: 04-28-2023 End: 05-26-2023 Exposure to SARS-CoV-2 (event) Not sure [facility] Start: 05-19-2023 Tobacco Comment Currently smok es 3 a day [facility] Work Phone: NEGATED: Highlighted rowStart: NATACHAF History of tobacco use Passive smoker [facility] Work Phone: Medical Equipment Procedure Code Equipment Code Equipment Origin al Text Equipment Identifier Dates Endarterectomy of femoral artery using patch graft for repair Cardiovascular patch, animal-derived [id number] [facility] Start: 03-16-2023 sure comfort pen needle 30 gauge x [...] L60mm Dia8mm Cath 8.5fr L194cm Gwire 0.035in [facility] - [id number] Start: 04-25-2023 sure comfort pen needle [...] Instructions, use bid for E10.8 Start: 06-17-2022 Sure comfort 30gx5/16 pen needle, See Instructions, 100 EA, 1, twice daily for insulin, [facility]pharm[facility] #[id number], Supply, 157, cm, 05/31/23 11:40:00 EST, Height/Length Dosing, 91.6, kg, 05/31/23 11:40:00 EST, Weight Dosing Start: 05-31-2023 sure comfort pen needle 30 gauge x 5/16, See Instructions, use bid for E10.8 Start: 06-17-2022 Sure comfort 30gx5/16 pen needle, See Instructions, 100 EA, 1, twice daily for insulin, [id number], Supply, 157, cm, 05/31/23 11:40:00 EST, Height/Length Dosing, 91.6, kg, 05/31/23 11:40:00 EST, Weight Dosing Start: 05-31-2023 sure comfort pen needle 30 gauge x 5/16, See Instructions, use bid for E10.8 Start: 06-17-2022 Sure comfort 30gx5/16 pen needle, See Instructions, 100 EA, 1, twice daily for insulin, [id number], Supply, 157, cm, 05/31/23 11:40:00 EST, Height/Length Dosing, 91.6, kg, 05/31/23 11:40:00 EST, Weight Dosing Start: 05-31-2023 sure comfort pen needle 30 gauge x 5/16, See Instructions, use bid for E10.8 Start: 06-17-2022 Sure comfort 30gx5/16 pen needle, See Instructions, 100 EA, 1, twice daily for insulin, [id number], Supply, 157, cm, 05/31/23 11:40:00 EST, Height/Length Dosing, 91.6, kg, 05/31/23 11:40:00 EST, Weight Dosing Start: 05-31-2023 sure comfort pen needle 30 gauge x 5/16, See Instructions, use bid for E10.8 Start: 06-17-2022 Sure comfort 30gx5/16 pen needle, See Instructions, 100 EA, 1, twice daily for insulin, [id number], Supply, 157, cm, 05/31/23 11:40:00 EST, Height/Length Dosing, 91.6, kg, 05/31/23 11:40:00 EST, Weight Dosing Start: 05-31-2023 sure comfort pen needle 30 gauge x 5/16, See Instructions, use bid for E10.8 Start: 06-17-2022 Sure comfort 30gx5/16 pen needle, See Instructions, 100 EA, 1, twice daily for insulin, [id number], Supply, 157, cm, 05/31/23 11:40:00 EST, Height/Length Dosing, 91.6, kg, 05/31/23 11:40:00 EST, Weight Dosing Start: 05-31-2023 sure comfort pen needle 30 gauge x 5/16, See Instructions, use bid for E10.8 Start: 06-17-2022 Sure comfort 30gx5/16 pen needle, See Instructions, 100 EA, 1, twice daily for insulin, [id number], Supply, 157, cm, 05/31/23 11:40:00 EST, Height/Length Dosing, 91.6, kg, 05/31/23 11:40:00 EST, Weight Dosing Start: 05-31-2023 sure comfort pen needle 30 gauge x 5/16, See Instructions, use bid for E10.8 Start: 06-17-2022 Sure comfort 30gx5/16 pen needle, See Instructions, 100 EA, 1, twice daily for insulin, [id number], Supply, 157, cm, 05/31/23 11:40:00 EST, Height/Length Dosing, 91.6, kg, 05/31/23 11:40:00 EST, Weight Dosing Start: 05-31-2023 sure comfort pen needle 30 gauge x 5/16, See Instructions, use bid for E10.8 Start: 06-17-2022 Sure comfort 30gx5/16 pen needle, See Instructions, 100 EA, 1, twice daily for insulin, [id number], Supply, 157, cm, 05/31/23 11:40:00 EST, Height/Length Dosing, 91.6, kg, 05/31/23 11:40:00 EST, Weight Dosing Start: 05-31-2023 sure comfort pen needle 30 gauge x 5/16, See Instructions, use bid for E10.8 Start: 06-17-2022 Sure comfort 30gx5/16 pen needle, See Instructions, 100 EA, 1, twice daily for insulin, [id number], Supply, 157, cm, 05/31/23 11:40:00 EST, Height/Length Dosing, 91.6, kg, 05/31/23 11:40:00 EST, Weight Dosing Start: 05-31-2023 sure comfort pen needle 30 gauge x 5/16, See Instructions, use bid for E10.8 Start: 06-17-2022 Sure comfort 30gx5/16 pen needle, See Instructions, 100 EA, 1, twice daily for insulin, [id number], Supply, 157, cm, 05/31/23 11:40:00 EST, Height/Length Dosing, 91.6, kg, 05/31/23 11:40:00 EST, Weight Dosing Start: 05-31-2023 sure comfort pen needle 30 gauge x 5/16, See Instructions, use bid for E10.8 Start: 06-17-2022 Sure comfort 30gx5/16 pen needle, See Instructions, 100 EA, 1, twice daily for insulin, [id number], Supply, 157, cm, 05/31/23 11:40:00 EST, Height/Length Dosing, 91.6, kg, 05/31/23 11:40:00 EST, Weight Dosing Start: 05-31-2023 sure comfort pen needle 30 gauge x 5/16, See Instructions, use bid for E10.8 Start: 06-17-2022 Sure comfort 30gx5/16 pen needle, See Instructions, 100 EA, 1, twice daily for insulin, [id number], Supply, 157, cm, 05/31/23 11:40:00 EST, Height/Length Dosing, 91.6, kg, 05/31/23 11:40:00 EST, Weight Dosing Start: 05-31-2023 sure comfort pen needle 30 gauge x 5/16, See Instructions, use bid for E10.8 Start: 06-17-2022 Sure comfort 30gx5/16 pen needle, See Instructions, 100 EA, 1, twice daily for insulin, [id number], Supply, 157, cm, 05/31/23 11:40:00 EST, Height/Length Dosing, 91.6, kg, 05/31/23 11:40:00 EST, Weight Dosing Start: 05-31-2023 sure comfort pen needle 30 gauge x 5/16, See Instructions, use bid for E10.8 Start: 03-17-2023 Sure comfort 30gx5/16 pen needle, See Instructions, 100 EA, 1, twice daily for insulin, [id number], Supply, 157, cm, 05/31/23 11:40:00 EST, Height/Length Dosing, 91.6, kg, 05/31/23 11:40:00 EST, Weight Dosing Start: 05-31-2023 sure comfort pen needle 30 gauge x 5/16, See Instructions, use bid for E10.8 Start: 06-17-2022 Sure comfort 30gx5/16 pen needle, See Instructions, 100 EA, 1, twice daily for insulin, [id number], Supply, 157, cm, 05/31/23 11:40:00 EST, Height/Length Dosing, 91.6, kg, 05/31/23 11:40:00 EST, Weight Dosing Start: 05-31-2023 sure comfort pen needle 30 gauge x 5/16, See Instructions, use bid for E10.8 Start: 06-17-2022 Sure comfort 30gx5/16 pen needle, See Instructions, 100 EA, 1, twice daily for insulin, [id number], Supply, 157, cm, 05/31/23 11:40:00 EST, Height/Length Dosing, 91.6, kg, 05/31/23 11:40:00 EST, Weight Dosing Start: 05-31-2023 sure comfort pen needle 30 gauge x 5/16, See Instructions, use bid for E10.8 Start: 06-17-2022 Sure comfort 30gx5/16 pen needle, See Instructions, 100 EA, 1, twice daily for insulin, [id number], Supply, 157, cm, 05/31/23 11:40:00 EST, Height/Length Dosing, 91.6, kg, 05/31/23 11:40:00 EST, Weight Dosing Start: 05-31-2023 sure comfort pen needle 30 gauge x 5/16, See Instructions, use bid for E10.8 Start: 06-17-2022 Sure comfort 30gx5/16 pen needle, See Instructions, 100 EA, 1, twice daily for insulin, [id number], Supply, 157, cm, 05/31/23 11:40:00 EST, Height/Length Dosing, 91.6, kg, 05/31/23 11:40:00 EST, Weight Dosing Start: 05-31-2023 sure comfort pen needle 30 gauge x 5/16, See Instructions, use bid for E10.8 Start: 06-17-2022 Sure comfort 30gx5/16 pen needle, See Instructions, 100 EA, 1, twice daily for insulin, [id number], Supply, 157, cm, 05/31/23 11:40:00 EST, Height/Length Dosing, 91.6, kg, 05/31/23 11:40:00 EST, Weight Dosing Start: 05-31-2023 sure comfort pen needle 30 gauge x 5/16, See Instructions, use bid for E10.8 Start: 06-17-2022 Sure comfort 30gx5/16 pen needle, See Instructions, 100 EA, 1, twice daily for insulin, [id number], Supply, 157, cm, 05/31/23 11:40:00 EST, Height/Length Dosing, 91.6, kg, 05/31/23 11:40:00 EST, Weight Dosing Start: 05-31-2023 sure comfort pen needle 30 gauge x 5/16, See Instructions, use bid for E10.8 Start: 06-17-2022 Sure comfort 30gx5/16 pen needle, See Instructions, 100 EA, 1, twice daily for insulin, [id number], Supply, 157, cm, 05/31/23 11:40:00 EST, Height/Length Dosing, 91.6, kg, 05/31/23 11:40:00 EST, Weight Dosing Start: 05-31-2023 sure comfort pen needle 30 gauge x 5/16, See Instructions, use bid for E10.8 Start: 06-17-2022 Sure comfort 30gx5/16 pen needle, See Instructions, 100 EA, 1, twice daily for insulin, [id number], Supply, 157, cm, 05/31/23 11:40:00 EST, Height/Length Dosing, 91.6, kg, 05/31/23 11:40:00 EST, Weight Dosing Start: 05-31-2023 sure comfort pen needle 30 gauge x 5/16, See Instructions, use bid for E10.8 Start: 06-17-2022 Sure comfort 30gx5/16 pen needle, See Instructions, 100 EA, 1, twice daily for insulin, [id number], Supply, 157, cm, 05/31/23 11:40:00 EST, Height/Length Dosing, 91.6, kg, 05/31/23 11:40:00 EST, Weight Dosing Start: 05-31-2023 sure comfort pen needle 30 gauge x 5/16, See Instructions, use bid for E10.8 Start: 06-17-2022 Sure comfort 30gx5/16 pen needle, See Instructions, 100 EA, 1, twice daily for insulin, [id number], Supply, 157, cm, 05/31/23 11:40:00 EST, Height/Length Dosing, 91.6, kg, 05/31/23 11:40:00 EST, Weight Dosing Start: 05-31-2023 sure comfort pen needle 30 gauge x 5/16, See Instructions, use bid for E10.8 Start: 06-17-2022 Goals Date Patient Goal Desired Activity /State Functional Status Date Assessment Result Facility 08-25-2023 Functional Status N/A [facility] 07-06-2023 Functional Status N/A [facility] 07-06-2023 Functional Status [facility] 06-09-2023 Functional Status N/A [facility] 05-23-2023 Functional Status N/A [facility] 05-15-2023 Functional Status N/A [facility] 05-05-2023 Functional Status N/A [facility] 03-30-2023 Functional Status No [facility] 03-17-2023 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 [facility] Work Phone: 01-13-2023 Functional Status N/A [facility] Mental Status Date Assessment Result Facility 03-17-2023 Cognitive function Cognitive Sta tus Patient at [facility] Work Phone: Clinical Notes 10-26-2021 to 08-25-2023 Note Date & Type Note Facility 08-25-2023 Evaluation + Plan note Extrac huey from: Title:ED Note Author:Jabari FORD, Jesse Hoyos te:08/25/23 Chest pain (R07.9: Chest miah n, unspecified) Future Appointments Appointment Date:08/29/2023 02:00:00 PM Scheduled Provider: Location:.ONCOLOGY Appointment Type:ONC Lab Port (FT) Appointment Date:09/05/2023 02:00:00 PM Scheduled Provider: Location:.ONCOLOGY Appointment Type:ONC Lab Port (FT) Appointment Date:09/06/2023 09:45:00 AM Scheduled Provider:Francine Sarabia DO Location:.ONCOLOGY Appointment Type:ONC Office Visit 30 (FT) Appointment Date:09/06/2023 10:30:00 AM Scheduled Provider: Location:.ONCOLOGY Appointment Type:ONC Folfirinox (FT) Appointment Date:09/08/2023 10:30:00 AM Scheduled Provider: Location:.ONCOLOGY Appointment Type:ONC D/C Pump (FT) Appointment Date:09/12/2023 11:45:00 AM Scheduled Provider: Location:.ONCOLOGY Appointment Type:ONC Rad Access (FT) Appointment Date:09/12/2023 12:00:00 PM Scheduled Provider: Location:.CAT SCAN Appointment Type:CT Chest/Abd/Pelvis Combo (FT) Appointment Date:10/30/2023 08:30:00 AM Scheduled Provider:Lázaro Riddle MD Location:[facility] Appointment Type: [facility] Scheduled Tests Laboratory* CA 19-9 09/06/23 * CA 19-9 07/21/23 * Erythropoietin Level 09/06/23 * CBC w/ Auto Diff 09/06/23 * CBC w/ Auto Diff 09/20/23 * CBC w/ Auto Diff 10/04/23 * CBC w/ Auto Diff 10/18/23 * CBC w/ Auto Diff 08/29/23 * CEA 09/06/23 * CEA 07/21/23 * Comprehensive Metabolic Panel 09/06/23 * Comprehensive Metabolic Panel 09/20/23 * Comprehensive Metabolic Panel 10/04/23 * Comprehensive Metabolic Panel 10/18/23 * Comprehensive Metabolic Panel 08/29/23 * Ferritin 09/06/23 * Folate Level 09/06/23 * Iron Level 09/06/23 * Iron Percent Saturation 09/06/23 * Lipase Level 08/29/23 * Transferrin 09/06/23 * Vitamin B12 Level 09/06/23 Radiology* CT Abdomen/Pelvis w/ Contrast 09/12/23 * CT Chest w/ Contrast 09/12/23 * CT Biopsy, Lung/Mediastinum 05/05/23 * Echo Transthoracic Complete 12/08/22 [facility]05-24-2024 Hospital Discharge instructions Patient Education 08/25/2023 11:23:38 Nonspecific Chest Pain, Adult Nonspecific Chest Pain, Adult Chest pain is an uncomfortable, tight, or painful feeling in the chest. The pain can feel like a crushing, aching, or squeezing pressure. A person can feel a burning or tingling sensation. Chest paincan also be felt in your back, neck, jaw, shoulder, or arm. This pain can be worse when you move, sneeze, or take a deep breath. Chest pain can be caused by a condition that is life-threatening. This must be treated right away. It can also be caused by something that is not life- threatening. If you have chest pain, it can be hard to know the difference, so it is important to get help right away to make sure that you do not have a serious condition. Some life-threatening causes of chest pain include: Heart attack. A tear in the body's main blood vessel (aortic dissection). Inflammation around your heart (pericarditis). A problem in the lungs, such as a blood clot (pulmonary embolism) or a collapsed lung (pneumothorax). Some non life-threatening causes of chest pain include: Heartburn. Anxiety or stress. Damage to the bones, muscles, and cartilage that make up your chest wall. Pneumonia or bronchitis. Shingles infection (varicella-zoster virus). Your chest pain may come and go. It may also be constant. Your health care provider will do tests and other studies to find the cause of your pain. Treatment will depend on the cause of your chest pain. Follow these instructions at home: Medicines Take wlvg-uae-bpaogks and prescription medicines only as told by your health care provider. If you were prescribed an antibiotic medicine, take it as told by your health care provider. Do notstop taking the antibiotic even if you start to feel better. Activity Avoid any activities that cause chest pain. Do not lift anything that is heavier than 10 lb (4.5 kg), or the limit that you are told, until your health care provider says that it is safe. Rest as directed by your health care provider. Return to your normal activities only as told by your health care provider. Ask your health care provider what activities are safe for you. Lifestyle Do not use any products that contain nicotine or tobacco, such as cigarettes, e- cigarettes, and chewing tobacco. If you need help quitting, ask your health care provider. Do not drink alcohol. Make healthy lifestyle changes as recommended. These may include: ?Getting regular exercise. Ask your health care provider to suggest some exercises that are safe for you. ?Eating a heart-healthy diet. This includes plenty of fresh fruits and vegetables, whole grains, low-fat (lean) protein, and low-fat dairy products. A dietitian can help you find healthy eating options. ?Maintaining a healthy weight. ?Managing any other health conditions you may have, such as high blood pressure (hypertension) or diabetes. ?Reducing stress, such as with yoga or relaxation techniques. General instructions Pay attention to any changes in your symptoms. It is up to you to get the results of any tests that were done. Ask your health care provider, or the department that is doing the tests, when your results will be ready. Keep all follow-up visits as told by your health care provider. This is important. You may be asked to go for further testing if your chest pain does not go away. Contact a health care provider if: Your chest pain does not go away. You feel depressed. You have a fever. You notice changes in your symptoms or develop new symptoms. Get help right away if: Your chest pain gets worse. You have a cough that gets worse, or you cough up blood. You have severe pain in your abdomen. You faint. You have sudden, unexplained chest discomfort. You have sudden, unexplained discomfort in your arms, back, neck, or jaw. You have shortness of breath at any time. You suddenly start to sweat, or your skin gets clammy. You feel nausea or you vomit. You suddenly feel lightheaded or dizzy. You have severe weakness, or unexplained weakness or fatigue. Your heart begins to beat quickly, or it feels like it is skipping beats. These symptoms may represent a serious problem that is an emergency. Do not wait to see if the symptoms will go away. Get medical help right away. Call your local emergency services (911 in the [place] Do not drive yourself to the hospital. Summary Chest pain can be caused by a condition that is serious and requires urgent treatment. It may also be caused by something that is not life-threatening. Your health care provider may do lab tests and other studies to find the cause of your pain. Follow your health care provider's instructions on taking medicines, making lifestyle changes, and getting emergency treatment if symptoms become worse. Keep all follow-up visits as told by your health care provider. This includes visits for any further testing if your chest pain does not go away. This information is not intended to replace advice given to you by your health care provider. Make sure you discuss any questions you have with your health care provider. Document Revised: 06/03/2021 Document Reviewed: 06/03/2021 [employer] Patient Education 2022 [employer]. Follow Up Care 08/25/2023 07:57:35 With:Lázaro Riddle Address:Unknown When:08/28/2023 11:03:02 [facility]04-29-2024 Hospital Discharge instructions Follow Up Care 07/31/2023 12:30:46 With:Francine Sarabia DO ONC Address: [address] [place] [address]- [phone] Fax Business (1) When: Unknown Comments:Plan folfirinox today and in 2 wks.prior to f//u ct c/a/p with contrast.make f/u with dr. chaves after her repeat imaging.2u prbc soon.priro to f/u cbc, cmp, iron studies, b12, folate, cea, ca199, epo. With:Francine Sarabia DO ONC Address: [address] [place] [address]- [phone] Fax Business (1) When: Unknown [facility]04-08-2024 NoteFisher [facility]Comment on above:Result Comment: Electronically Signed By: Ulises COON MD\.br\Date and Time Signed: 07/10/23 12:19 [id number] Evaluation + Plan noteExtracted from: Title:Discharge Note Author:Ulises COON MD ate:07/10/23 Discharge To, Anticipated II - Home independently Discharged to - Home with family care Discharge Diet(s): Regular (07/10/23 09:25:00) Prescriptions atorvastatin 20 mg Tab, 20 mg= 1 tab(s), Oral, Bedtime, 3 refills clopidogrel 75 mg Tab, 75 mg= 1 tab(s), Oral, Daily, 3 refills dicyclomine 20 mg Tab, 20 mg= 1 tab(s), Oral, TID, Not taking Freestyle Brady 2 Flash Glucose Monitoring 14 Day System (Boyce), See Instructions Freestyle Brady 2 Flash Glucose Monitoring 14 Day System (Sensor), See Instructions, 1 refills Freestyle Brady 2 Boyce, See Instructions, 1 refills, Not taking furosemide 40 mg Tab, 40 mg= 1 tab(s), Oral, Daily, 3 refills glipiZIDE 10 mg Tab, 10 mg= 1 tab(s), Oral, BID, 3 refills HumaLOG KwikPen 100 units/mL injectable solution, See Instructions Lantus Solostar Pen 100 units/mL subcutaneous solution, See Instructions lisinopril 30 mg Tab, 30 mg= 1 tab(s), Oral, Daily, 3 refills Lomotil 0.025 mg-2.5 mg Tab, 2 tab(s), Oral, QID, PRN, 2 refills, Not taking MetFORMIN (Eqv-Glucophage XR) 500 mg oral tablet, extended release, See Instructions metoprolol tartrate 100 mg Tab, 100 mg= 1 tab(s), Oral, BID, 3 refills ondansetron 8 mg Tab, 8 mg= 1 tab(s), Oral, TID, PRN, 2 refills, Not taking Pantoprazole [address] Tab, 40 mg, Oral, BID spironolactone 50 mg Tab, 50 mg= 1 tab(s), Oral, Daily, 3 refills Sure comfort 30gx5/16 pen needle, See Instructions, 1 refills Trulicity Pen 0.75 mg/0.5 mL subcutaneous solution, 0.75 mg, SubCutaneous, qWeek, 2 refills Home aspirin 81 mg Oral EC Tab, 81 mg= 1 tab(s), Oral, Daily Immodium A-D 2 mg Tab pantoprazole, 40 mg sure comfort pen needle 30 gauge x 5/16, See Instructions With When Contact Information Lázaro Riddle 07/17/2023 07:45 AM EDT [address] [place] [address]- Business (2) Additional Instructions: Call for followup appointment Gene Price Within 2 weeks [address], [address] [address] [phone] Business (1) Additional Instructions: Call for followup appointment Acute ileitis Follow up with your oncologist Additional Instructions: Keep scheduled appointment Colitis Extracted from: Title:APSO Note Author:Margareth HILTON Date:07/09/23 PLAN: 1. Acute diarrhea (R19.7: Diarrhea, unspecified) 2/2 Chemotherapy.---improving. Strict stool count today. IVF off Stool Enteric/Cdiff negative. Imodium Consult oncology if needed. 2. Ileitis (K52.9: Noninfective gastroenteritis and colitis, unspecified) 2/[address] abd shows ileitis extending into the ileocecal valve. colitis see #1 Anti-diarrheals/emetics prn. Consult GI appreciated. -no GI work up indicated. 3. JAMARI (acute kidney injury) (N17.9: Acute kidney failure, unspecified) 2/2 GI loss. from #1,2 hold Lisinopril, diuretics IVF off now taking PO better. Trend labs. 4. Dehydration (E86.0: Dehydration) 2/2 GI loss IVF 5. Hypermagnesemia (E83.41: Hypermagnesemia) Discontinue IVF 6. Hyperkalemia (E87.5: Hyperkalemia) Now resolved. 7. Hyponatremia (E87.1: Hypo-osmolality and hyponatremia) Now resolved 8. Metabolic acidosis (E87.20: Acidosis, unspecified) Likely w/diarrhea, GI loss, diuretics 9. Diabetes (E11.9: Type 2 diabetes mellitus without complications) AccuChecks AC/HS w/ss insulin Hold Metformin Glargine 10 units at HS. 10. Anemia (D64.9: Anemia, unspecified) Chronic 2/2 underlying malignancy Currently stable. trends 9.9-10.9 11. Chronic diastolic heart failure (I50.32: Chronic diastolic (congestive) heart failure) Hold lasix, Aldactone for now. IVF gentle 12. Pancreatic cancer (C25.9: Malignant neoplasm of pancreas, unspecified) Diagnosed in April; s/p stent placement and chemotherapy FOLFIRINOX every other week 13. 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 follow 14. History of CVA in adulthood (Z86.73: Personal history of transient ischemic attack (TIA), and cerebral infarction without residual deficits) Hold ASA/Plavix for now. 15. Hypertension (I10: Essential (primary) hypertension) Hold Lisinopril, HCTZ Metoprolol 16. Peripheral vascular disease (I73.9: Peripheral vascular disease, unspecified) CT of the abdomen was suggestive of severe narrowing of the distal aorta with severe narrowing of the superficial femoral arteries with probable chronic occlusion of the proximal left superficial femoral artery. 17. Hyperlipidemia (E78.5: Hyperlipidemia, unspecified) Stain 18. COPD without exacerbation (J44.9: Chronic obstructive pulmonary disease, unspecified) Stable. 19. Tobacco abuse (Z72.0: Tobacco use) Counseled on cessation Refuses nicotine patch 20. Obesity (E66.9: Obesity, unspecified) BMI 32.66 -Counseled on diet, exercise, weight loss and lifestyle modifications. 21. Encounter for deep vein thrombosis (DVT) prophylaxis (Z29.9: Encounter for prophylactic measures, unspecified) SCDs IF PT TOLERATES DIET AND STOOL COUNT IMPROVES PT COULD LIKELY DISCHARGE TOMORROW. Extracted from: Title:APSO Note Author:Margareth HILTON Date:07/08/23 PLAN: 1. Acute diarrhea (R19.7: Diarrhea, unspecified) 2/2 Chemotherapy. IVF Stool Enteric/Cdiff negative. Imodium Consult oncology if needed. 2. Ileitis (K52.9: Noninfective gastroenteritis and colitis, unspecified) 2/[address] abd shows ileitis extending into the ileocecal valve. colitis see #1 Anti-diarrheals/emetics prn. Consult GI appreciated. -no GI work up indicated. 3. JAMARI (acute kidney injury) (N17.9: Acute kidney failure, unspecified) 2/2 GI loss. from #1,2 hold Lisinopril, diuretics Gentle IVF Trend labs. 4. Dehydration (E86.0: Dehydration) 2/2 GI loss IVF 5. Hypermagnesemia (E83.41: Hypermagnesemia) Continue IVF 6. Hyperkalemia (E87.5: Hyperkalemia) Now resolved. 7. Hyponatremia (E87.1: Hypo-osmolality and hyponatremia) Now resolved 8. Metabolic acidosis (E87.20: Acidosis, unspecified) Likely w/diarrhea, GI loss, diuretics 9. Diabetes (E11.9: Type 2 diabetes mellitus without complications) AccuChecks AC/HS w/ss insulin Hold Metformin Glargine 10 units at HS. 10. Anemia (D64.9: Anemia, unspecified) Chronic 2/2 underlying malignancy Currently stable. trends 9.9-10.9 11. Chronic diastolic heart failure (I50.32: Chronic diastolic (congestive) heart failure) Hold lasix, Aldactone for now. IVF gentle 12. Pancreatic cancer (C25.9: Malignant neoplasm of pancreas, unspecified) Diagnosed in April; S/Post stent placement and chemotherapy FOLFIRINOX every other week 13. 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 follow 14. History of CVA in adulthood (Z86.73: Personal history of transient ischemic attack (TIA), and cerebral infarction without residual deficits) Hold ASA/Plavix for now. 15. Hypertension (I10: Essential (primary) hypertension) Hold Lisinopril, HCTZ Metoprolol 16. Peripheral vascular disease (I73.9: Peripheral vascular disease, unspecified) CT of the abdomen was suggestive of severe narrowing of the distal aorta with severe narrowing of the superficial femoral arteries with probable chronic occlusion of the proximal left superficial femoral artery. 17. Hyperlipidemia (E78.5: Hyperlipidemia, unspecified) Stain 18. COPD without exacerbation (J44.9: Chronic obstructive pulmonary disease, unspecified) Stable. 19. Tobacco abuse (Z72.0: Tobacco use) Counseled on cessation Refuses nicotine patch 20. Obesity (E66.9: Obesity, unspecified) BMI 32.66 -Counseled on diet, exercise, weight loss and lifestyle modifications. 21. Encounter for deep vein thrombosis (DVT) prophylaxis (Z29.9: Encounter for prophylactic measures, unspecified) SCDs Orders: loperamide, 2 mg = 1 tab(s), Tab, Oral, q6hr PRN Diarrhea, Routine, Start date 07/08/23 11:19:00 EDT, 07/08/23 11:19:00 EDT loperamide, 2 mg = 1 tab(s), Tab, Oral, Once, Stop date 07/08/23 13:30:00 EDT, NOW, Start date 07/08/23 13:30:00 EDT, 07/08/23 13:30:00 EDT Diabetic/Calorie Control Diet Electrolyte Panel Magnesium Level Extracted from: Title:APSO Note Author:Naveen CONTRERAS Radha MartaDena Date:07/07/23 1. JAMARI (acute kidney injury) (N17.9: Acute kidney failure, unspecified) Secondary intravascular depletion due to diarrhea on lisinopril, hold at this time Denies any nonsteroidal anti-inflammatories 2. Dehydration (E86.0: Dehydration) IVF resuscitation BMP trend 3. Hyperkalemia (E87.5: Hyperkalemia) Suspect due to acute kidney injury, superimposed on metabolic acidosis also likely influence of LINK inhibitor i.e. lisinopril. Below we will start patient on bicarbonate drip, hold LINK inhibitors, observe on youth nutritional monitor electrolytes 4. Hyponatremia (E87.1: Hypo-osmolality and hyponatremia) Suspect secondary to GI losses though potential influence of diuretics as well mentioned above. This is slight we will monitor BMP q 12 x 4 5. Metabolic acidosis (E87.20: Acidosis, unspecified) Suspected due to bicarbonate losses from profound diarrhea in addition to creased renal function will initiate patient on a bicarbonate drip at 50 cc/h 100 mill equivalents and monitor 6. Diarrhea (R19.7: Diarrhea, unspecified) Suspect chemo induced however will check stool studies for enteric pathogens, check C. difficile, check thyroid function studies, check inflammatory markers ? Likely with carcinoid biopsy results from pulmonary that this carcinoid syndrome, patient does have a biliary tree stent over LFTs are within normal limits. Reviewing outpatient documentation from palliative care he was consideration of octreotide. Multifactorial potential influences will consult with gastroenterology. We will hold metformin Ordered: C-Reactive Protein Clostridium Difficile PCR Enteric Panel by PCR 7. Diabetes (E11.9: Type 2 diabetes mellitus without complications) Hold metformin, patient states she is no longer taking Trulicity would hold with intravascular depletion anyways. Patient received 20 units twice daily will give 10 units each evening as she will have reduced caloric intake with bicarb administration with dextrose will balance between preventing profound hyperglycemia and hypoglycemia. With acute kidney injury reduced oral intake will hold oral sulfonylurea X. Will cover with sliding scale. IV fluids will also help check hemoglobin A1c 8. Anemia (D64.9: Anemia, unspecified) In the emergency department ferritin level was elevated likely acute phase reactant B12 1090 folate was within normal limits appears to be stable however will observe as we hydrate. Patient does state that she had a history within the past year of admission with stomach ulceration. Patient is on aspirin and Plavix will transiently hold these until reevaluated in the a.m. if hemoglobin is stable no objection from GI likely resume below continue PPI 9. Chronic diastolic heart failure (I50.32: Chronic diastolic (congestive) heart failure) With Lasix and Aldactone with patient's acute kidney injury and dehydration. Cautious about fluid administration observed for volume overload. Still feel the patient is intravascular depleted 10. Pancreatic cancer (C25.9: Malignant neoplasm of pancreas, unspecified) States diagnosis winter was started on chemotherapy on 324. Likely because of diarrhea but it see above 11. 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 History of CVA in adulthood (Z86.73: Personal history of transient ischemic attack (TIA), and cerebral infarction without residual deficits) Patient states she was diagnosed 2 years ago when off aspirin she does not recall the deficits. Will transiently hold aspirin and Plavix that she received today's dose until certain that hemoglobin will be stable and not requiring any procedural interventions for her diarrhea 13. Hypertension (I10: Essential (primary) hypertension) Patient was hypotensive when she came in likely due to intravascular depletion. We are holding lisinopril especially with acute kidney injury and hyperkalemia, holding diuretics, will continue metoprolol though at a reduced dose with hold parameters 14. Peripheral vascular disease (I73.9: Peripheral vascular disease, unspecified) Patient states that within the past years she did have percutaneous intervention of the left lower extremity. CT of the abdomen was suggestive of severe narrowing of the distal aorta with severe narrowing of the superficial femoral arteries with probable chronic occlusion of the proximal left superficial femoral artery. Patient's left foot was cold go to palpate dorsalis pedis she denies any acute symptoms 15. Hyperlipidemia (E78.5: Hyperlipidemia, unspecified) Continue in light of above statin therapy 16. COPD without exacerbation (J44.9: Chronic obstructive pulmonary disease, unspecified) 17. Tobacco abuse (Z72.0: Tobacco use) Patient declines any offered nicotine patch 18. Obesity (E66.9: Obesity, unspecified) 19. Encounter for deep vein thrombosis (DVT) prophylaxis (Z29.9: Encounter for prophylactic measures, unspecified) Use DVT prophylaxis observe renal response as this could affect dosing going forward Orders: magnesium sulfate + Generic Diluent 100 mL, 4 gram = 100 mL, Soln-IV, IV Piggyback, Once, Stop date 07/07/23 12:00:00 EDT, Routine, Start date 07/07/23 12:00:00 EDT, 25 mL/hr, Infuse over 4 hour(s) Basic Metabolic Panel Calprotectin, Fecal Clear Liquid Diet Extracted from: Title:Inpatient Consultation Gastroenterology Author:Judah Segura MD Date:07/07/23 Impression and Plan Education and Follow-up: Counseled. Pancreatic cancer status post stent placement and chemotherapy Worsening diarrhea secondary to chemotherapy Ileitis likely secondary to chemotherapy Plan: Continue supportive treatment with fluids, antiemetics,etc Agree with obtaining stool studies to rule out infectious versus inflammatory conditions (calprotectin, C. difficile, stool culture, ova and parasites) Diarrhea is likely secondary to chemotherapy. Defer to Oncology No plans for endoscopy GI team will follow superficially over the weekend. Please call if you have questions or concerns Extracted from: Title:Admission H & P Author:Scooby CHOUDHARY DO Date:07/06/23 1. JAMARI (acute kidney injury) (N17.9: Acute kidney failure, unspecified) Suspect predominantly due to intravascular depletion due to diarrhea of note patient has been on lisinopril patient presented with a systolic blood pressure of approximately 90 with decreased renal perfusion. Denies any nonsteroidal anti-inflammatories note weighing the pros versus cons and emergency department patient was given IV contrast for further imaging of her gastrointestinal tract. Patient was given 2 L in the emergency department. Patient is still volume depleted with a history of congestive heart failure improvement in her blood pressure sinew IV fluids though at a reduced rate see below 2. Dehydration (E86.0: Dehydration) Was prerenal she does admit to history suggestive of orthostasis. We therefore have a bedside commode and advised patient not to get up without assist prevent falls. Hydration felt to be predominantly due to her diarrhea but notes she has been on Lasix and spironolactone which will be held 3. Hyperkalemia (E87.5: Hyperkalemia) Suspect due to acute kidney injury, superimposed on metabolic acidosis also likely influence of LINK inhibitor i.e. lisinopril. Below we will start patient on bicarbonate drip, hold LINK inhibitors, observe on youth nutritional monitor electrolytes 4. Hyponatremia (E87.1: Hypo-osmolality and hyponatremia) Suspect secondary to GI losses though potential influence of diuretics as well mentioned above. This is slight we will monitor 5. Metabolic acidosis (E87.20: Acidosis, unspecified) Suspected due to bicarbonate losses from profound diarrhea in addition to creased renal function will initiate patient on a bicarbonate drip at 50 cc/h 100 mill equivalents and monitor 6. Diarrhea (R19.7: Diarrhea, unspecified) Suspect chemo induced however will check stool studies for enteric pathogens, check C. difficile, check thyroid function studies, check inflammatory markers ? Likely with carcinoid biopsy results from pulmonary that this carcinoid syndrome, patient does have a biliary tree stent over LFTs are within normal limits. Reviewing outpatient documentation from palliative care he was consideration of octreotide. Multifactorial potential influences will consult with gastroenterology. We will hold metformin Ordered: C-Reactive Protein Clostridium Difficile PCR Enteric Panel by PCR 7. Diabetes (E11.9: Type 2 diabetes mellitus without complications) Hold metformin, patient states she is no longer taking Trulicity would hold with intravascular depletion anyways. Patient received 20 units twice daily will give 10 units each evening as she will have reduced caloric intake with bicarb administration with dextrose will balance between preventing profound hyperglycemia and hypoglycemia. With acute kidney injury reduced oral intake will hold oral sulfonylurea X. Will cover with sliding scale. IV fluids will also help check hemoglobin A1c 8. Anemia (D64.9: Anemia, unspecified) In the emergency department ferritin level was elevated likely acute phase reactant B12 1090 folate was within normal limits appears to be stable however will observe as we hydrate. Patient does state that she had a history within the past year of admission with stomach ulceration. Patient is on aspirin and Plavix will transiently hold these until reevaluated in the a.m. if hemoglobin is stable no objection from GI likely resume below continue PPI 9. Chronic diastolic heart failure (I50.32: Chronic diastolic (congestive) heart failure) With Lasix and Aldactone with patient's acute kidney injury and dehydration. Cautious about fluid administration observed for volume overload. Still feel the patient is intravascular depleted 10. Pancreatic cancer (C25.9: Malignant neoplasm of pancreas, unspecified) States diagnosis winter was started on chemotherapy on 324. Likely because of diarrhea but it see above 11. 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 History of CVA in adulthood (Z86.73: Personal history of transient ischemic attack (TIA), and cerebral infarction without residual deficits) Patient states she was diagnosed 2 years ago when off aspirin she does not recall the deficits. Will transiently hold aspirin and Plavix that she received today's dose until certain that hemoglobin will be stable and not requiring any procedural interventions for her diarrhea 13. Hypertension (I10: Essential (primary) hypertension) Patient was hypotensive when she came in likely due to intravascular depletion. We are holding lisinopril especially with acute kidney injury and hyperkalemia, holding diuretics, will continue metoprolol though at a reduced dose with hold parameters 14. Peripheral vascular disease (I73.9: Peripheral vascular disease, unspecified) Patient states that within the past years she did have percutaneous intervention of the left lower extremity. CT of the abdomen was suggestive of severe narrowing of the distal aorta with severe narrowing of the superficial femoral arteries with probable chronic occlusion of the proximal left superficial femoral artery. Patient's left foot was cold go to palpate dorsalis pedis she denies any acute symptoms 15. Hyperlipidemia (E78.5: Hyperlipidemia, unspecified) Continue in light of above statin therapy 16. COPD without exacerbation (J44.9: Chronic obstructive pulmonary disease, unspecified) 17. Tobacco abuse (Z72.0: Tobacco use) Patient declines any offered nicotine patch 18. Obesity (E66.9: Obesity, unspecified) 19. Encounter for deep vein thrombosis (DVT) prophylaxis (Z29.9: Encounter for prophylactic measures, unspecified) Use DVT prophylaxis observe renal response as this could affect dosing going forward Orders: acetaminophen, 650 mg = 2 tab(s), Tab, Oral, q6hr PRN Pain, Routine, Start date 07/06/23 22:37:00 EDT, 07/06/23 22:37:00 EDT aspirin, 81 mg = 1 tab(s), Tab-EC, Oral, Daily, Routine, Start date 07/07/23 9:00:00 EDT, 07/06/23 22:30:00 EDT atorvastatin, 20 mg = 1 tab(s), Tab, Oral, Bedtime, Routine, Start date 07/06/23 22:30:00 EDT, 07/06/23 22:30:00 EDT clopidogrel, 75 mg = 1 tab(s), Tab, Oral, Daily, Routine, Start date 07/07/23 9:00:00 EDT, 07/06/23 22:30:00 EDT Dextrose 5% in Water intravenous solution 1,000 mL + sodium bicarbonate 100 mEq, 1,000 mL, IV, 50 mL/hr, Routine, Start date 07/06/23 22:39:00 EDT, 20 hour(s), Total volume (mL): 1,000, 80.5 kg, 1.87, m2 enoxaparin, 30 mg = 0.3 mL, Injection, SubCutaneous, Daily for 30 day(s), Stop date 08/06/23 8:59:00 EDT, Routine, Start date 07/07/23 9:00:00 EDT, 07/06/23 22:37:00 EDT glucose, 50 mL, Soln-IV, IV Push, Once PRN Blood glucose, Routine, Start date 07/06/23 22:38:00 EDT insulin glargine, 10 unit(s), SubCutaneous, Bedtime, Routine, Start date 07/07/23 21:00:00 EDT, 07/06/23 22:31:00 EDT insulin lispro, 0-10 Unit(s), Injection-Insulin, SubCutaneous, q6hr, Routine, Start date 07/07/23 0:01:00 EDT metoprolol, 50 mg = 0.5 tab(s), Tab, Oral, BID, Routine, Start date 07/07/23 9:00:00 EDT, 07/06/23 22:31:00 EDT ondansetron, 4 mg = 2 mL, Injection, IV Push, q6hr PRN Nausea, Routine, Start date 07/06/23 22:37:00 EDT, 07/06/23 22:37:00 EDT pantoprazole, 40 mg, Tab-EC, Oral, BID, Routine, Start date 07/07/23 9:00:00 EDT, 07/06/23 22:32:00 EDT Basic Metabolic Panel Bedside Commode Below the Knee Intermittent Pneumatic Compression Device Cardiac Monitoring CBC w/ Auto Diff Consult to GI Digital Signage Comment Education Fall Risk HgbA1c Hypoglycemia Protocol Responsive Patient Hypoglycemia Protocol Unresponsive Patient Magnesium Level Notify Provider Vital Signs Notify Provider Vital Signs NPO Diet Place in Status Precautions Precautions Resuscitation Status - Full Routine Capillary Glucose POC TSH With T4fr Reflex Vital Signs Weight Patient is admitted as general inpatient with anticipation she will require greater than 2 midnight stay Extracted from: Title:ED Note Author:Radha Jo PA-C Date:07/06/23 1. Dehydration (E86.0: Dehyd ration) 2. Hyponatremia (E87.1: Hypo-osmolality and hyponatremia) 3. JAMARI (acute kidney injury) (N17.9: Acute kidney failure, unspecified) 4. Hyperglycemia (R73.9: Hyperglycemia, unspecified) 5. Pancreatic cancer (C25.9: Malignant neoplasm of pancreas, unspecified) 6. Chemotherapy induced diarrhea (K52.1: Toxic gastroenteritis and colitis) 7. Chemotherapy-induced nausea (R11.0: Nausea) Adverse effect of antineoplastic and immunosuppressive drugs, initial encounter (T45.1X5A: Adverse effect of antineoplastic and immunosuppressive drugs, initial encounter) Orders: Sodium Chloride 0.9% intravenous solution, 1,000 mL, Soln-IV, IV, Once, Stop date 07/06/23 15:15:00 EDT, STAT, Start date 07/06/23 15:15:00 EDT, Infuse over 61, minute(s) Sodium Chloride 0.9% intravenous solution 1,000 mL, 1,000 mL, IV, 1,000 mL/hr, STAT, Start date 07/06/23 16:14:00 EDT, 1 hour(s), Total volume (mL): 1,000, 80.5 kg, 1.87, m2 Basic Metabolic Panel Blood Culture Charcoal Blood Culture Charcoal CT Abdomen/Pelvis w/ Contrast ECG 12 Lead Adult ED Cardiac Monitoring eGFR Extra Blue Tube Extra Lav Tube Extra SST Tube Hepatic Function Panel Lactic Acid Lipase Level Saline Lock Insert Troponin 0 Hr. UA with Cult Rflx Future Appointments Appointment Date:07/11/2023 01:30:00 PM Scheduled Provider: Location:.ONCOLOGY Appointment Type:ONC Lab Port (FT) Appointment Date:07/12/2023 09:00:00 AM Scheduled Provider: Location:.ONCOLOGY Appointment Type:ONC Folfirinox (FT) Appointment Date:07/14/2023 09:00:00 AM Scheduled Provider: Location:.ONCOLOGY Appointment Type:ONC Pump Disconnect (FT) Appointment Date:07/17/2023 07:45:00 AM Scheduled Provider:Lázaro Riddle MD Location:[facility] Appointment Type: ER/Hospital Follow Up Appointment Date:07/24/2023 01:00:00 PM Scheduled Provider: Location:.ONCOLOGY Appointment Type:ONC Lab Port (FT) Appointment Date:07/24/2023 01:30:00 PM Scheduled Provider:Beverley Roberts [facility] Type:[facility] Office Visit 30 (FT) Appointment Date:07/25/2023 10:00:00 AM Scheduled Provider:Lázaro Riddle MD Location:[facility] Appointment Type: Open Diagnostic Tests Pending * CBC w/ Auto Diff 07/10/23 * Calprotectin, Fecal 07/07/23 Future Scheduled Tests Laboratory* CA 19-9 07/29/23 * CBC w/ Auto Diff 07/12/23 * CA 125 07/29/23 * CEA 07/29/23 * Comprehensive Metabolic Panel 07/12/23 Radiology* CT Biopsy, Lung/Mediastinum 05/05/23 * Echo Transthoracic Complete 12/08/22 [facility]04-08-2024 Hospital Discharge instructions Patient Education 07/10/2023 09:41:30 Colitis Colitis Colitis is a condition in which the colon is inflamed. It can cause diarrhea, blood in the stool, and abdominal pain. Colitis can last a short time (be acute), or it may last a long time (become chronic). What are the causes? This condition may be caused by: Infections from viruses or bacteria. A reaction to medicine. Certain autoimmune diseases, such as Crohn's disease or ulcerative colitis. Radiation treatment. Decreased blood flow to the bowel (ischemia). What are the signs or symptoms? Symptoms of this condition include: Diarrhea, blood in the stool, or black, tarry stool. Pain in the joints or abdominal pain. Fever or fatigue. Vomiting. Weight loss. Bloating. Having fewer bowel movements than usual. A strong and sudden urge to have a bowel movement. Feeling like the bowel is not empty after a bowel movement. How is this diagnosed? This condition may be diagnosed based on a stool test and a blood test. You may also have other tests, such as: X-rays. CT scan. Colonoscopy. Endoscopy. Biopsy. How is this treated? Treatment for this condition depends on the cause. This condition may be treated with: Steps to rest the bowel, such as not eating or drinking for a period of time. Fluids that are given through an IV. Medicine for pain and diarrhea. Antibiotic medicines. Cortisone medicines. Surgery. Follow these instructions at home: Eating and drinking Follow instructions from your health care provider about eating or drinking restrictions. Drink enough fluid to keep your urine pale yellow. Work with a dietitian to determine whether certain foods cause your condition to flare up. Avoid foods or drinks that cause flare-ups. Eat a well-balanced diet. General instructions If you were prescribed an antibiotic medicine, take it as told by your health care provider. Do notstop taking the antibiotic even if you start to feel better. Take ndrm-hsh-isxhkyg and prescription medicines only as told by your health care provider. Keep all follow-up visits. This is important. Contact a health care provider if: Your symptoms do not go away. You develop new symptoms. Get help right away if: You have a fever that does not go away with treatment. You develop chills. You have extreme weakness, fainting, or dehydration. You vomit repeatedly. You develop severe pain in your abdomen. You pass bloody or tarry stool. Summary Colitis is a condition in which the colon is inflamed. Colitis can last a short time (be acute), aleisha may last a long time (become chronic). Treatment for this condition depends on the cause and may include resting the bowel, taking medicines, or having surgery. If you were prescribed an antibiotic medicine, take it as told by your health care provider. Do notstop taking the antibiotic even if you start to feel better. Get help right away if you develop severe pain in your abdomen. Keep all follow-up visits. This is important. This information is not intended to replace advice given to you by your health care provider. Make sure you discuss any questions you have with your health care provider. Document Revised: 11/24/2020 Document Reviewed: 11/24/2020 [employer] Patient Education 2022 [employer]. Follow Up Care 07/06/2023 15:12:52 With:Gene Price Address: [address], [facility] [address] [facility] [address] [place] [address] [phone] Business (1) When:2 weeks Comments:Call for followup appointment Acute ileitis With:Lázaro Riddle Address: [address] [place] [address] Business (2) When:07/17/2023 07:45:00 Comments:Call for followup appointment With:Follow up with your oncologist Address:Unknown When: Unknown Comments:Keep scheduled appointment [facility] on above:Result Comment: Electronically Signed By: Scooby CHOUDHARY DO\.br\Date and Time Signed: 07/06/23 22:56 [id number] Hospital Discharge instructions Follow Up Care 06/30/2023 15:16:48 With:Prachi GARCIA, Beverley Muñoz, ONC Address: [facility] [address] [place] [address] [phone] When: Unknown Comments:continue treatment as plannedcontinue Lomotil- will refillfollow-up with Dr. Montaño in 4wks on treatment daycbc, cmp, iron studies, tumor markers in 4wks for follow-upcbc, cmp for treatment days [facility]03-27-2024 Hospital Discharge instructions Patient Education 06/28/2023 09:21:19 Steps to Quit Smoking, Zoei-th-Wqpp Steps to Quit Smoking Smoking tobacco is the leading cause of preventable . It can affect almost every organ in the body. Smoking puts you and people around you at risk for many serious, long-lasting (chronic) diseases. Quitting smoking can be hard, but it is one of the best things that you can do for your health. It is never too late to quit. Do not give up if you cannot quit the first time. Some people need to try many times to quit. Do your best to stick to your quit plan, and talk with your doctor if you have any questions or concerns. How do I get ready to quit? Pick a date to quit. Set a date within the next 2 weeks to give you time to prepare. Write down the reasons why you are quitting. Keep this list in places where you will see it often. Tell your family, friends, and co-workers that you are quitting. Their support is important. Talk with your doctor about the choices that may help you quit. Find out if your health insurance will pay for these treatments. Know the people, places, things, and activities that make you want to smoke (triggers). Avoid them. What first steps can I take to quit smoking? Throw away all cigarettes at home, at work, and in your car. Throw away the things that you use when you smoke, such as ashtrays and lighters. Clean your car. Empty the ashtray. Clean your home, including curtains and carpets. What can I do to help me quit smoking? Talk with your doctor about taking medicines and seeing a counselor. You are more likely to succeedwhen you do both. If you are or : Talk with your doctor about counseling or other ways to quit smoking. Do not take medicine to help you quit smoking unless your doctor tells you to. Quit right away Quit smoking completely, instead of slowly cutting back on how much you smoke over a period of time. Stopping smoking right away may be more successful than slowly quitting. Go to counseling. In-person is best if this is an option. You are more likely to quit if you go to counseling sessions regularly. Take medicine You may take medicines to help you quit. Some medicines need a prescription, and some you can buy mqmx-mjz-emztrbu. Some medicines may contain a drug called nicotine to replace the nicotine in cigarettes. Medicines may: Help you stop having the desire to smoke (cravings). Help to stop the problems that come when you stop smoking (withdrawal symptoms). Your doctor may ask you to use: Nicotine patches, gum, or lozenges. Nicotine inhalers or sprays. Non-nicotine medicine that you take by mouth. Find resources Find resources and other ways to help you quit smoking and remain smoke-free after you quit. They include: Online chats with a counselor. Phone quitlines. Printed self-help materials. Support groups or group counseling. Text messaging programs. Mobile phone apps. Use apps on your mobile phone or tablet that can help you stick to your quit plan. Examples of free services include Quit Guide from the CDC and smokefree.gov What can I do to make it easier to quit? Talk to your family and friends. Ask them to support and encourage you. Call a phone quitline, such as 1-692-HFWU-NOW, reach out to support groups, or work with a counselor. Ask people who smoke to not smoke around you. Avoid places that make you want to smoke, such as: ?Bars. ?Parties. ?Smoke-break areas at work. Spend time with people who do not smoke. Lower the stress in your life. Stress can make you want to smoke. Try these things to lower stress: ?Getting regular exercise. ?Doing deep-breathing exercises. ?Doing yoga. ?Meditating. What benefits will I see if I quit smoking? Over time, you may have: A better sense of smell and taste. Less coughing and sore throat. A slower heart rate. Lower blood pressure. Clearer skin. Better breathing. Fewer sick days. Summary Quitting smoking can be hard, but it is one of the best things that you can do for your health. Do not give up if you cannot quit the first time. Some people need to try many times to quit. When you decide to quit smoking, make a plan to help you succeed. Quit smoking right away, not slowly over a period of time. When you start quitting, get help and support to keep you smoke-free. This information is not intended to replace advice given to you by your health care provider. Make sure you discuss any questions you have with your health care provider. Document Revised: 03/11/2022 Document Reviewed: 03/11/2022 [employer] Patient Education 2022 [employer] 06/28/2023 09:15:02 Diarrhea, Adult, [place] Diarrhea, Adult Diarrhea is when you pass loose and watery poop (stool) often. Diarrhea can make you feel weak and cause you to lose water in your body (get dehydrated). Losing water in your body can cause you to: Feel tired and thirsty. Have a dry mouth. Go pee (urinate) less often. Diarrhea often lasts 2 3 days. However, it can last longer if it is a sign of something more serious. It is important to treat your diarrhea as told by your doctor. Follow these instructions at home: Eating and drinking Follow these instructions as told by your doctor: Take an ORS (oral rehydration solution). This is a drink that helps you replace fluids and mineralsyour body lost. It is sold at pharmacies and stores. Drink plenty of fluids, such as: ?Water. ?Ice chips. ?Diluted fruit juice. ?Low-calorie sports drinks. ?Milk, if you want. Avoid drinking fluids that have a lot of sugar or caffeine in them. Eat bland, rkdi-mh-ulsapj foods in small amounts as you are able. These foods include: ?Bananas. ?Applesauce. ?Rice. ?Low-fat (lean) meats. ?[place]. ?Crackers. Avoid alcohol. Avoid spicy or fatty foods. Medicines Take avse-iwf-zyllrgc and prescription medicines only as told by your doctor. If you were prescribed an antibiotic medicine, take it as told by your doctor. Do not stop using the antibiotic even if you start to feel better. General instructions Wash your hands often using soap and water. If soap and water are not available, use a hand fitter mechanic. Others in your home should wash their hands as well. Hands should be washed: ?After using the toilet or changing a diaper. ?Before preparing, cooking, or serving food. ?While caring for a sick person. ?While visiting someone in a hospital. Drink enough fluid to keep your pee (urine) pale yellow. Rest at home while you get better. Take a warm bath to help with any burning or pain from having diarrhea. Watch your condition for any changes. Keep all follow-up visits as told by your doctor. This is important. Contact a doctor if: You have a fever. Your diarrhea gets worse. You have new symptoms. You cannot keep fluids down. You feel light-headed or dizzy. You have a headache. You have muscle cramps. Get help right away if: You have chest pain. You feel very weak or you pass out (faint). You have bloody or black poop or poop that looks like tar. You have very bad pain, cramping, or bloating in your belly (abdomen). You have trouble breathing or you are breathing very quickly. Your heart is beating very quickly. Your skin feels cold and clammy. You feel confused. You have signs of losing too much water in your body, such as: ?Dark pee, very little pee, or no pee. ?Cracked lips. ?Dry mouth. ?Sunken eyes. ?Sleepiness. ?Weakness. Summary Diarrhea is when you pass loose and watery poop (stool) often. Diarrhea can make you feel weak and cause you to lose water in your body (get dehydrated). Take an ORS (oral rehydration solution). This is a drink that is sold at pharmacies and stores. Eat bland, zhfb-qu-jdkkmt foods in small amounts as you are able. Contact a doctor if your condition gets worse. Get help right away if you have signs that you have lost too much water in your body. This information is not intended to replace advice given to you by your health care provider. Make sure you discuss any questions you have with your health care provider. Document Revised: 06/10/2022 Document Reviewed: 09/29/2021 Roomlr Patient Education 2022 Ullink. Follow Up Care 06/08/2023 16:25:51 With:Francine Sarabia DO, ONC Address: [facility] [address] [place] [address]. 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 [facility]02-23-2024 Attending History and physical note* Alyssa Padgett MD - 05/26/2023 7:30 AM EST H&P reviewed. The patient was examined and there are no changes to the H&P. Last dose of plavix 05/19/23 am, on hold for seven days. Source Note - Donnie Suarez APRN-CELSO - 05/19/2023 4:00 PM EST Images from the original note were not included. Patient: Venancio Nelson [id number] : 1960 -- AGE 62 y.o. Provider: CHAD Bajwa Location [facility] Service Date: 05/19/2023 Department of Medicine Division of Pulmonary, Critical Care, and Sleep Medicine [facility] New Visit Note Virtual or Telephone Consent A telephone visit (audio only) between the patient (at the originating site) and the provider (at the distant site) was utilized to provide this telehealth service. Verbal consent was requested and obtained from Venanico Nelson on this date, 05/19/23 for a telehealth visit. HISTORY OF PRESENT ILLNESS PCP: Dr. Lázaro Riddle Medical Oncology: Dr. Danyel Aragon (Francisco Lopez) Surgical Oncology: Dr. Edison Chaves Cardiology: Dr. Felix Andrew (Francisco Lopez) HISTORY OF PRESENT ILLNESS Venancio Nelson is a 62 y.o. female who presents to a [facility] Clinicfor an [facility] with [...] left heart cath performed by her primary networking technician on 05/15/2023; findings of minimal nonobstructive CAD. On today's visit, the patient reports no SOB at rest or TAMEZ. No current or prior inhaler history. Occasional cough; intermittently productive. Light yellow in color. No hemoptysis. No recent fever, chills, night sweats. Overall, weight has been stable. Denies orthopnea. Some lower leg swelling. Denies CP, palpitations. Hx of CHF; established with networking technician. Has GERD but well controlled on Casa [...] medical history of CHF (congestive heart failure) ([facility]), COPD (chronic obstructive pulmonary disease) ([facility]), Diabetes mellitus ([facility]), GERD (gastroesophageal reflux disease), Hiatal hernia (04/24/2023), History of blood transfusion, Hyperlipidemia, Hypertension, Lung nodule, Peripheral vascular disease (CMS/HCC), Stroke (CMS/[facility]), and Vision loss. PAST SURGICAL HISTORY Past [...] L5 pars defects. Echocardiogram & Cardiac Studies [facility] (05/15/23) Labwork & Pathology Complete [...] 62 y.o. female; was referred to the [facility] for evaluation of [...] mentions need for cardiac clearance. Sees a networking technician at [facility]. Just underwent LHC on 05/15/23 [...] minutes Phone/Video: 12 minutes Total: 22 minutes [facility] Work Phone: 1(196) 713-609502-23-2024 History and physical note* Alyssa Padgett MD - 05/26/2023 7:30 AM EST H&P reviewed. The patient was examined and there are no changes to the H&P. Last dose of plavix 05/19/23 am, on hold for seven days. Source Note - CHAD Bajwa - 05/19/2023 4:00 PM EST Images from the original note were not included. Patient: Venancio Nelson [id number] : 1960 -- AGE 62 y.o. Provider: CHAD Bajwa Location [facility] Service Date: 05/19/2023 Department of Medicine Division of Pulmonary, Critical Care, and Sleep Medicine [facility] New Visit Note Virtual or Telephone Consent A telephone visit (audio only) between the patient (at the originating site) and the provider (at the distant site) was utilized to provide this telehealth service. Verbal consent was requested and obtained from Venancio Nelson on this date, 05/19/23 for a telehealth visit. HISTORY OF PRESENT ILLNESS PCP: Dr. Lázaro Riddle Medical Oncology: Dr. Danyel Aragon (Francisco Lopez) Surgical Oncology: Dr. Edison Chaves Cardiology: Dr. Felix Andrew (Francisco Lopez) HISTORY OF PRESENT ILLNESS Venancio Nelson is a 62 y.o. female who presents to a [facility] Clinicfor an [facility] with [...] left heart cath performed by her primary networking technician on 05/15/2023; findings of minimal nonobstructive CAD. On today's visit, the patient reports no SOB at rest or TAMEZ. No current or prior inhaler history. Occasional cough; intermittently productive. Light yellow in color. No hemoptysis. No recent fever, chills, night sweats. Overall, weight has been stable. Denies orthopnea. Some lower leg swelling. Denies CP, palpitations. Hx of CHF; established with networking technician. Has GERD but well controlled on Casa [...] L5 pars defects. Echocardiogram & Cardiac Studies [facility] (05/15/23) Labwork & Pathology Complete [...] 62 y.o. female; was referred to the [facility] for evaluation of [...] mentions need for cardiac clearance. Sees a networking technician at [facility]. Just underwent LHC on 05/15/23 [...] minutes Total: 22 minutes documented in this [facility] Work Phone: 1(445) 302-206902-15-2024 Hospital Discharge instructions Follow Up Care 05/18/2023 10:26:52 With:Francine Sarabia DO, ONC Address: [facility] 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 [facility]02-15-2024 Hospital Discharge instructions Patient Education 05/18/2023 10:02:54 Implanted Port Insertion Implanted Port Insertion Implanted port insertion is a procedure to put in a port and catheter. The port is a device with aninjectable disc that can be accessed by your [...] use the port instead of veins in yourarms for these procedures. Tell a health care provider about: Any allergies you have. All medicines you are taking, especially blood thinners, as well as any vitamins, herbs, eye drops,creams, iafh-har-hktuvqz medicines, and steroids. Any problems you or [...] provider tells you to take them. Taking sopt-osg-uxgnklf medicines, vitamins, herbs, and supplements. General instructions [...] for at least 4 weeks before the procedure.These products include cigarettes, chewing tobacco, and vaping [...] of salt and water, and blood will bedrawn to make sure that the port is working correctly. The incisions will be closed. Bandages (dressings) may be placed over the incisions. The procedure may vary among health care providers and hospitals. What happens after the procedure? Your blood pressure, heart rate, breathing rate, and blood oxygen level will be monitored until youleave the hospital or clinic. If you were given a sedative during the procedure, it can affect you for several hours. Do not drive or operate machinery until your health care provider says that it is safe. You will be given a circulation assistant's information card for the type of port [...] provider, usually every few weeks. Keep your circulation assistant's information card with you at all times. This information is not intended to replace advice given to you by your health care provider. Make sure you discuss any questions you have with your health care provider. Document Revised: 09/21/2021 Document Reviewed: 09/21/2021 Roomlr Patient Education 2022 Ullink. 05/18/2023 10:01:13 Pancreatic Cancer Pancreatic Cancer Pancreatic [...] history and a physical exam. Your health careprovider may: Check your skin and eyes for [...] bile duct, spleen, and small intestine may alsobe removed. Chemotherapy. This uses medicine to destroy [...] Follow these instructions at home: Medicines Take ihvz-ltm-dclxmdf and prescription medicines only as told by [...] to keep your urine pale yellow. ?Take yuow-qqy-zjhurmc or prescription medicines. ?Eat foods that are [...] you need help quitting, ask your health careprovider. Eating and drinking Try to eat regular, healthy meals. Some of your treatments might affect your appetite. If you are having problems eating, see a food and nutrition teacher (dietitian). Do not drink alcohol. General instructions Work with your health care provider to manage any side effects of your treatment. Return to your normal activities as told by your health care provider. Ask your health care provider what activities are safe for you. Keep all follow-up visits. These monitor the treatments and guide next steps. Where to find more information [place] Cancer Society: www.cancer.org [place] (NCI): www.cancer.gov Contact a health care provider [...] provider. Document Revised: 06/29/2022 Document Reviewed: 06/29/2022 Roomlr Patient Education 2022 Ullink. 05/18/2023 10:00:44 Pulmonary Nodule, Soht-bz-Qagd Pulmonary Nodule A pulmonary nodule is a small, round growth of tissue in the lung. A nodule may be cancer, but mostnodules are not cancer. What are the causes? [...] nodule. Follow these instructions at home: Take xszp-kgs-tbcdbgj and prescription medicines only as told by [...] provider. Document Revised: 10/07/2020 Document Reviewed: 10/07/2020 Roomlr Patient Education 2022 [employer] Follow Up Care 05/04/2023 12:25:32 With:Francine Sarabia DO, ONC Address: [facility] [place] [address]- [phone] Fax Business (1) When: Unknown Comments:iv iron soonport referralFOLFIRNOX a week from monday (05/29)cbc, cmp, ca199 cea prior to chemotherapy. [facility]02-13-2024 Note [id number] [facility] 05-15-2023 Hospital Discharge instructions Patient Education 05/15/2023 09:40:37 CV - Cardiovascular Discharge Instructions (Custom) [place], [place] CARDIOVASCULAR DISCHARGE INSTRUCTIONS Diet: Resume pre-procedure [...] hours post procedure: Actoplus MetGlucophageGlucophage XR GlucovanceAvandametFortamet Gxa-hudmwpbneJuqkuhMozi-ssuutrybt GlumetzaJanumetMetaglip RiometGlycomet *Minimal pain, soreness and/or discomfort [...] you are interested in smoking cessation, contact [facility] at [phone], ext. [phone]. In the event you are unable to reach your physician, please call [facility] at [phone] and the discharge door operator will assist you. Seek Immediate Medical Care for: Bleeding: Apply continuous pressure to the site and Call 911. Should the arm or leg become cold, numb, blue or white call your physician immediately. Signs of infection are redness, warmth, swelling, increased tenderness, colored drainage, fever or chills Chest pain Follow Up Care 05/09/2023 08:56:15 With:Lázaro Riddle Address:Unknown When: Unknown With:Felix Andrew Address: [address] [place], [place] [id number] [facility] (1) When:06/09/2023 13:45:00 Comments:Keep scheduled appointment [facility]02-05-2024 History of Present illness Narrative* Edison Chaves MD - 05/08/2023 12:00 PM EST Subjective Venancio Nelson is a 62 y.o. female who is referred by Dr. Danyel Aragon. Medical oncology [facility]. Pancreatic cancer. HPI The patient is a 62-year-old woman, with significant medical comorbidities, metabolic syndrome and vasculopath. She is type 2 diabetes and is insulin- dependent. She is also morbidly obese with a [...] Sitting, BP Cuff Size: Adult) Pulse 62 Temp36.2 C (97.2 F) (Temporal) Resp 18 Wt [...] which would be her biggest risk after surgery,and she is also insulin-dependent at this time. She will see her networking technician at [facility] for cardiac catheterization. She will stop her Eliquis 3 days before surgery. She will continue her aspirin. We discussed smoking cessation and prehab Edison Chaves MD documented in this [facility] Work Phone: 1(296) 714-492301-26-2024 History of Present illness Narrative* Amy Cadena - 04/28/2023 12:03 PM EST CLINICAL PHARMACY NOTE: MEDS TO BEDS Total # of Prescriptions Filled: 1 The following medications were delivered to the patient: Pantoprazole 40mg Additional Documentation: * Erica Funez OT - 04/27/2023 1:58 PM EST Occupational Therapy DATE: 04/27/2023 NAME: Venancio Nelson : 1960 Patient not seen this [...] to hospice care. No further needs. Erica Funez, OT * Beth Keenan, PT - 04/27/2023 1:41 PM EST Physical Therapy DATE: 04/27/2023 NAME: Venancio Nelson : 1960 Patient not seen this [...] care. No further needs. Beth Keenan, PT * Shirley Reyes APRN - CELSO - 04/27/2023 1:08 PM EST Images from the original note were not included. GASTROENTEROLOGY NOTE Patient: Venancio Nelson : 1960 Facility: [facility] Date: 04/27/2023 Pipeline Integrity Engineer: Shirley Reyes APRN - SENIOR ANALYTIC CONSULTANT SUBJECTIVE: 62 y.o. female admitted 04/23/2023 with Obstructive jaundice [K83.1]. Patient is resting in bed in no acute distress. Uneventful night per nurse. EGD/EUS/ERCP with metalstent placement were completed 04/25: EGD Findings:: Esophagus: [...] could explain her anemia. Her imaging, CT andMRI, show no concerning findings within the colon. Additionally patient is angry a colonoscopy is even being discussed given her current prognosis. She would like to eat and be discharged home. PLAN: Okay to discharge home from a GI standpoint She should remain on Protonix 40 mg BID for duodenal ulcer and esophagitis. Outpatient follow up with [facility] surgery and oncology. Please recall GI as needed. Discussed with Dr. Yao * Isra Farley APRN - BLOW OFF WORKER - 04/27/2023 9:03 AM EST Images from the original note were not included. [facility] Office: [phone] Kevin Floyd DO, Aniket Malik DO, Denton Herrmann DO, Luc Tony DO, Lubna Muñiz MD, Barbara Mari MD, Hussain Peraza MD, Alejandra Jacobsen MD, Buck Mcgee MD, Sapna Charles MD, Max Hill MD, Marlys Beckett DO, Jeromy Samson MD, Kavon Romero MD, Reid Floyd DO, Venancio Cochran MD, Michael Peterson DO, Stefanie Reynolds MD, Sadia Bazan MD, Lyn Singh MD, Shailesh Miranda MD, John Watkins MD, Cheng Montenegro MD, Tiffanie Hernandez MD, Yong Garrido MD, Simone Cunha MD, Doretha Pringle MD, Malik Carmona DO, Floyd Hardy DO, Ivan Perez MD, Latrell Barrientos MD, Anny Garcia CNP, Mini Monson CNP, Isra Farley, CELSO, Meeta Mejia, ABHINAV,Darlene Mcnair, SENIOR ANALYTIC CONSULTANT, Piedad Perez, SENIOR ANALYTIC CONSULTANT, Jocelyn Guerrero SENIOR ANALYTIC CONSULTANT, Alicia Lugo, SENIOR ANALYTIC CONSULTANT, Christal Rosa CNP, Savana Brewster PA-C, KYRIE VidalC, Jayna Brewster, SENIOR ANALYTIC CONSULTANT, Leticia Ortiz, COW TESTER, Eliza Wong, SENIOR ANALYTIC CONSULTANT, Willow Garduno, SENIOR ANALYTIC CONSULTANT, Arabella Wood, SENIOR ANALYTIC CONSULTANT [facility] IN-PATIENT SERVICE [facility] Progress Note 04/27/2023 9:04 AM Name: Venancio Nelson Acct: [id number] Room: 1011/1011-02 Day: 4 Admit Date: 04/23/2023 1:18 PM PCP: Lázaro Riddle MD Code Status: Full Code Subjective: [...] inability to eat or drink anything without severenausea and vomiting. She reported to a local emergency department where lab work and imaging is cons istent with obstructive jaundice. Patient is sent to [...] chloride, glucose, dextrose bolus OR dextrose bolus, glucagon(rDNA), dextrose, sodium chloride flush, sodium chloride, potassium chloride OR potassium alternative oral replacement OR potassium chloride, magnesium sulfate, acetaminophen OR acetaminop hen, polyethylene glycol, promethazine OR ondansetron, morphine Data: Past Medical History: has a past medical history of Chronic diastolic heart failure (HCC), Chronic obstructive pulmonary disease (HCC), Coronary arteriosclerosis, Diabetes mellitus type II, controlled (HCC), HTN (hypertension), Hypercholesterolemia, Obesity due to excess calories, Obstructive jaundice, and Pulmonary hypertension (HCC). Social History: reports that she has been smoking cigarettes. She has never used smokeless tobacco.She reports that she does not currently use [...] , PHART , PH , POCPCO2 , OBA0OTY , PCO2 , POCPO2 , PO2ART , PO2 , POCHCO3 , HZJ2UZU , HCO3 , NBEA , PBEA , BEART , BE , THGBART , THB , OGA6KKI , RWCY2NNS , A0JXQBBG , O2SAT , FIO2 No results found for: SPECIAL No results found for: CULTURE Radiology: MRI ABDOMEN W WO CONTRAST MRCP Result Date: 04/24/2023 1. Subtle focal area of hypoenhancement and increased T2 signal within the pancreatic head measuring approximately 2.8 x 2.1 cm extending predominantly within the pancreaticoduodenal groove. There isassociated restricted diffusion. There is moderate intra and [...] Yes Overview Signed 04/23/2023 3:38 PM by Isra Farley APRN - BLOW OFF WORKER moderate per cath 08/07/2020 Obesity due to excess calories 04/23/2023 Yes Hypercholesterolemia 04/23/2023 Yes Diabetes mellitus type II, controlled (HCC) 04/23/2023 Yes Coronary arteriosclerosis 04/23/2023 Yes Overview Signed 04/23/2023 3:38 PM by Isra Farley HOME PARAPROFESSIONAL - BLOW OFF WORKER mild per cath 08/07/2020 Pancreatic mass 04/26/2023 [...] metformin. CHACHO Camacho NP 04/27/2023 9:04 AM * Karin Cronin MD - 04/27/2023 8:23 AM EST Images from the original note were not included. Today's Date: 04/27/2023 Patient Name: Venancio Nelson Date of admission: 04/23/2023 1:18 PM [...] Upon evaluation in the ER patient underwent MRIabdomen which showed subtle hypoenhancement in the pancreatic [...] 2 times daily (before meals) 06/29/22 Yes ProviderRocio MD lisinopril (PRINIVIL;ZESTRIL) 30 MG tablet Take 1 tablet by mouth daily 06/29/22 Yes Rocio Toribio MD metoprolol (LOPRESSOR) 100 MG tablet Take 1 tablet by mouth 2 times daily 10/06/22 Yes Rocio Toribio MD spironolactone (ALDACTONE) 50 MG tablet Take 1 tablet by mouth daily 06/29/22 Yes ProviderRocio MD LANTUS SOLOSTAR 100 UNIT/ML injection pen Inject 20 Units into the skin 2 times daily 04/20/23 Yes ProviderRocio MD aspirin 81 MG chewable tablet Take [...] infusion IntraVENous PRN Willow Garduno APRN - SENIOR ANALYTIC CONSULTANT 0.9 % sodium chloride infusion IntraVENous PRN Isra Farley HOME PARAPROFESSIONAL - BLOW OFF WORKER glucose chewable tablet 16 g 4 tablet Oral PRN Isra Farley HOME PARAPROFESSIONAL - BLOW OFF WORKER dextrose bolus 10% 125 mL 125 mL IntraVENous PRN Isra Farley HOME PARAPROFESSIONAL - BLOW OFF WORKER Or dextrose bolus 10% 250 mL 250 mL IntraVENous PRN Isra Farley HOME PARAPROFESSIONAL - BLOW OFF WORKER glucagon injection 1 mg 1 mg SubCUTAneous PRN Isra Farley APRN - BLOW OFF WORKER dextrose 10 % infusion IntraVENous Continuous PRN Isra Farley HOME PARAPROFESSIONAL - BLOW OFF WORKER atorvastatin (LIPITOR) tablet 20 mg 20 mg Oral Nightly Isra Farley HOME PARAPROFESSIONAL - BLOW OFF WORKER 20 mg at 128 furosemide (LASIX) tablet 40 mg 40 mg Oral Daily Isra Farley HOME PARAPROFESSIONAL - BLOW OFF WORKER 40 mg at 04/26/23 1736 glipiZIDE (GLUCOTROL) tablet 10 mg 10 mg Oral BID AC Isra Farley HOME PARAPROFESSIONAL - BLOW OFF WORKER 10 mg at 04/27/23 0504 insulin glargine (LANTUS) injection vial 20 Units 20 Units SubCUTAneous BID Isra Farley HOME PARAPROFESSIONAL -BLOW OFF WORKER 20 Units at 04/26/238 lisinopril (PRINIVIL;ZESTRIL) tablet 30 mg 30 mg Oral Daily Irsa Farley HOME PARAPROFESSIONAL - BLOW OFF WORKER 30 mg at 04/26/23 1736 metoprolol (LOPRESSOR) tablet 100 mg 100 mg Oral BID Isra Farley HOME PARAPROFESSIONAL - BLOW OFF WORKER 100 mg at 04/26/232127 spironolactone (ALDACTONE) tablet 50 mg 50 mg Oral Daily Isra Farley HOME PARAPROFESSIONAL - BLOW OFF WORKER 50 mg at 04/26/23 1737 insulin lispro (HUMALOG) injection vial 0-16 Units 0-16 Units SubCUTAneous TID WC Isra Farley APRN - NP 16 Units at 04/26/23 1737 insulin lispro (HUMALOG) injection vial 0-4 Units 0-4 Units SubCUTAneous Nightly Isra Farley APRN - NP pantoprazole (PROTONIX) tablet [...] smoking cigarettes. She has never used smokeless tobacco.She reports that she does not currently use [...] for nausea, vomiting, diarrhea, constipation, dysphagia, hematemesis andhematochezia. PERRL abdominal pain Genitourinary: negative for frequency, [...] 0.30 k/uL RBC Morphology ANISOCYTOSIS PRESENT Cytology, Non-Personnel Assistant Result Value Ref Range Comprehensive Metabolic Panel [...] Bank Sample Expiration 04/29/2023,2359 Arm Band Number [id number] ABO/Rh B POSITIVE Antibody Screen NEGATIVE Unit Number [id number] Component Leukocyte Reduced Red Cell Unit Divison 00 Dispense Status Blood Bank ISSUED Unit Issue Date/Time [id number] Product Code Blood Bank [id number] Blood Bank Unit Type and Rh O POS Blood Bank ISBT Product Blood Type 5100 Blood Bank Blood Product Expiration Date 056657471759 Transfusion Status OK TO TRANSFUSE Crossmatch Result COMPATIBLE Unit Number [id number] Component Leukocyte Reduced Red Cell Unit Divison 00 Dispense Status Blood Bank ISSUED Unit Issue Date/Time 175236087559 Product Code Blood Bank [id number] Blood Bank Unit Type and Rh O POS Blood Bank ISBT Product Blood Type 5100 Blood Bank Blood Product Expiration Date [id number] Transfusion Status OK TO TRANSFUSE Crossmatch Result [...] obstructive jaundice, incidental pulmonary nodules identified on CUTTING AND SPLICING SUPERVISOR PROVIDED HISTORY: Pancreatic mass, obstructive jaundice, incidental pulmonary nodules identified on MRI Reason for Exam: Pancreatic mass, obstructive jaundice, incidental pulmonary nodules identified on MRI FINDINGS: Chest: Mediastinum:No evidence of mediastinal, hilar or axillary lymphadenopathy. [...] again noted. The lungs otherwise are clear. Nopneumothorax or pleural effusion. Soft Tissues/Bones: No acute [...] of normal caliber. The pancreas is otherwise un remarkable. The spleen contains a calcified granuloma but is otherwise unremarkable. The right adrenal gland, left kidney and visualized bilateral ureters are unremarkable. The left adrenal gland is noted for a 1.4 cm mass with a density of 61 Hounsfield units. The right kidney contains 2 small simple cysts not requiring imaging follow-up. GI/Bowel: Stomach and duodenal sweep demonstrate no acuteabnormality. There is no evidence of bowel obstruction. No evidence of abnormal bowel wall thickening or distension. The appendix is visualized and is unremarkable. No evidence of acute appendicitis.Pelvis: The bladder and reproductive organs are unremarkable. [...] year, no further follow-up imaging.JACR 2017 Nov; 14(8):6888-44, JCAT 2016 Jun-Jul; 40(2):194-200, Urol J spring; 3(2):71-4. Pathology: 11 mm right solid pulmonary nodule.Per Fleischner Society Guidelines, consider a non- contrast Chest CT at 3 months, a PET/CT, or tissue sampling.These guidelines do not apply to immunocompromised patients and patients with cancer. Follow up in patients with significant comorbidities as clinically warranted. For lung cancer screening, adhere to Lung-RADS guidelines. Reference: Radiology. 2017; 284(1) :228-43. MRI ABDOMEN W WO CONTRAST MRCP Result [...] upper quadrant pain for 2 weeks, no surge ry, having diarrhea and throwing up Additional signs [...] peripancreatic stranding in this region. There is lkes-so-allnltdq atrophy of the body and tail without [...] The aorta is normal in caliber with zexjputd-em-uilryv atherosclerosis. The celiac axis and SMA are grossly patent. Portal venous system is patent. No pathologically enlarged adenopathy. No ascitesor drainable fluid collection. There is mild wall thickening of the 2nd portion of the duodenum, nonspecific. The visualized bowel is otherwise unremarkable. There is a 6 mm left lower lobe pulmonarynodule. 1. Subtle focal area of hypoenhancement and increased T2 signal within the pancreatic head measuring approximately 2.8 x 2.1 cm extending predominantly within the pancreaticoduodenal groove. There isassociated restricted diffusion. There is moderate intra and [...] cholelithiasis, gallbladder wall thickening, or pericholecystic fluid. Camera Machinist reports some pain over the gallbladder/common duct. Common duct measures 16 mm in diameter. RIGHT KIDNEY: 13-14 mm cortical cyst. Otherwise, normal cortical thickness and echogenicity. No hydronephrosis or distinct shadowing intrarenal calculus. P ANCREAS: Visualized portions of the pancreas are unremarkable. [...] meaning can be extrapolated by contextual diversion. * Venancio Servin RN - 04/27/2023 2:42 AM EST Pt had a restless night. Pts output in purwick was 700mL, NS continues to run at 100mL. Vitals werestable, hgb post transfusion from day shift was [...] chronic conditions and comorbid symptoms for stability, deterioration,or improvement Collaborate with multidisciplinary team to address chronic and comorbid conditions and prevent exacerbation or deterioration Update acute care plan with appropriate goals if chronic or comorbid symptoms are exacerbated and prevent overall improvement and discharge * Venancio Servin RN - 04/27/2023 1:12 AM EST Blood consent was confirmed Blood was dual signed per chief writer and an additional Fozia RN, Blood touched vein @ 1:15 Vitals stable. Vitals were taken within 30 minutes prior to blood administration and 15 minutes after start Patient was observed for first 15 minutes per chief writer No reaction noted. Will continue to monitor * Erica Funez OT - 04/26/2023 2:57 PM EST Occupational Therapy DATE: 04/26/2023 NAME: Venancio Nelson : 1960 Patient not seen this date for Occupational Therapy due to: [x] Cancel by RN or physician due to: AVRIL Hatfield reporting pt not medically appropriate for therapy this date. Reports pt w/ decline in status & drastic drop in HgB down to 5.6 this AM. OT will holdthis date and ck back tomorrow as able. [...] care. No further needs. Erica Funez OT * Maura Zhu - 04/26/2023 12:06 PM EST SPIRITUAL CARE DEPARTMENT - [facility] PROGRESS NOTE Room # 1011/1011-02 Name: Venancio Nelson Mandaeism: Scientologist: Worship Reason for visit: Rounding I visited the patient. Admit Date & Time: 04/23/2023 1:18 PM Assessment: Venancio Nelson is a 62 y.o. female in the hospital because Obstructive jaundice. Upon entering the room The patient was sitting up in bed watching TV land ([employer]). Intervention: I introduced myself and my title as upholstery bundler I offered space for the patient to [...] the large community of neighbors at her, [facility] in [place], [place]. The patient mentioned that all of [...] all we can ask or think. The Expander Machine Operator prayed for the patients physical and emotional healing, and left a prayer card with a few scriptures written on it to encourage for latter ( Ephesians 3:20, and Ecclesiastes). Outcome: The patient was very encouraged, and thankful for the visit. Plan: Chaplains will remain available to offer spiritual and emotional support as needed. . Spiritual Care Department [facility] * Beth Keenan, PT - 04/26/2023 11:26 AM EST Physical Therapy DATE: 04/26/2023 NAME: Venancio Nelson : 1960 Patient not seen this date for Physical Therapy due to: [x] Cancel by RN or physician due to: AVRIL Hatfield reporting pt not medically appropriate for therapy this date. Reports pt w/ decline in status & drastic drop in HgB down to 5.6 this AM. PT will holdthis date and ck back tomorrow as able. [...] care. No further needs. Beth Keenan, PT * Isra Farley APRN - RU - 04/26/2023 9:27 AM EST Images from the original note were not included. [facility] Office: [phone] Kevin Floyd DO, Aniket Malik DO, Denton Herrmann DO, Luc Tony DO, Lubna Muñiz MD, Barbara Mari MD, Hussain Peraza MD, Alejandra Jacobsen MD, Buck Mcgee MD, Sapna Charles MD, Max Hill MD, Marlys Beckett DO, Jeromy Samson MD, Kavon Romero MD, Reid Floyd DO, Venancio Cochran MD, Michael Peterson DO, Stefanie Reynolds MD, Sadia Bazan MD, Lyn Singh MD, Shailesh Miranda MD, John Watkins MD, Cheng Montenegro MD, Tiffanie Hernandez MD, Yong Garrido MD, Simone Cunha MD, Doretha Pringle MD, Malik Carmona DO, Floyd Hardy DO, Ivan Perez MD, Latrell Barrientos MD, Anny Garcia, SENIOR ANALYTIC CONSULTANT, Mini Monson, SENIOR ANALYTIC CONSULTANT, Isra Farley, CELSO, Meeta Mejia, ABHINAV,Darlene Mcnair, CELSO, Piedad Perez, SENIOR ANALYTIC CONSULTANT, Jocelyn Guerrero, SENIOR ANALYTIC CONSULTANT, Alicia Lugo, SENIOR ANALYTIC CONSULTANT, Christal Rosa, SENIOR ANALYTIC CONSULTANT, Savana Brewster, PA-C, Bettina Dominguez, PA-C, Jayna Brewster, CELSO, Leticia Ortiz, [facility], Eliza Wong, SENIOR ANALYTIC CONSULTANT, Willow Garduno, SENIOR ANALYTIC CONSULTANT, Arabella Wood, SENIOR ANALYTIC CONSULTANT [facility] IN-PATIENT SERVICE [facility] Progress Note 04/26/2023 9:41 AM Name: Venancio Nelson Acct: [id number] Room: 1011/1011-02 Day: 3 Admit Date: 04/23/2023 1:18 PM PCP: Lázaro Riddle MD Code Status: Full Code Subjective: [...] inability to eat or drink anything without severenausea and vomiting. She reported to a local emergency department where lab work and imaging is cons istent with obstructive jaundice. Patient is sent to [...] results reviewed and concerning for pancreatic mass. ERCPplanned for 04/25. 04/26 -hyperkalemic, sharp drop in [...] OR potassium alternative oral replacement OR potassium chl oride, magnesium sulfate, acetaminophen OR acetaminophen, polyethylene glycol, [...] smoking cigarettes. She has never used smokeless tobacco.She reports that she does not currently use [...] , PHART , PH , POCPCO2 , YBI4OIN , PCO2 , POCPO2 , PO2ART , PO2 , POCHCO3 , FIA9TEE , HCO3 , NBEA , PBEA , BEART , BE , THGBART , THB , AQO4VXK , KMDQ4LCU , K1JPOOMP , O2SAT , FIO2 No results found for: SPECIAL No results found for: CULTURE Radiology: MRI ABDOMEN W WO CONTRAST MRCP Result Date: 04/24/2023 1. Subtle focal area of hypoenhancement and increased T2 signal within the pancreatic head measuring approximately 2.8 x 2.1 cm extending predominantly within the pancreaticoduodenal groove. There isassociated restricted diffusion. There is moderate intra and [...] Yes Overview Signed 04/23/2023 3:38 PM by Isra Farley APRN - NP moderate per cath 08/07/2020 Obesity due to excess calories 04/23/2023 Yes Hypercholesterolemia 04/23/2023 Yes Diabetes mellitus type II, controlled (HCC) 04/23/2023 Yes Coronary arteriosclerosis 04/23/2023 Yes Overview Signed 04/23/2023 3:38 PM by Isra Farley APRN - NP mild per cath [...] n.p.o. CHACHO Camacho NP 04/26/2023 9:41 AM * Alysia Ponce RN - 04/25/2023 7:06 PM EST Patient transferred back from PACU post-EGD Vitals stable Re-oriented to room * Erica Funez OT - 04/25/2023 3:53 PM EST Occupational Therapy Facility/Department: [facility] Occupational Therapy Initial Assessment Name: Venancio Nelson : 1960 Date of Service: 04/25/2023 [...] Equipment Recommendations Equipment Needed: (CTA) Per H&P: Venancio Nelson is a 62 y.o. Non- / non female who presents with No chief complaint on file. and is admitted to the hospital for the management of Obstructive jaundice. Patient reports that over the past 2 weeks she has had significant epigastric discomfort after mealtimes. Over the past 48 hours she is having inability to eat or drink anything without severe nauseaand vomiting. She reported to a local emergency department where lab work and imaging is consistentwith obstructive jaundice. Patient is sent to this [...] eye closed but easily arousable. Pt appears uncomfortablein bed and reported she had felt lightheaded [...] AD at baseline) Transfer Assistance: Independent Active Gravel Roofer: No Patient's Gravel Roofer Info: family Occupation: Retired Type of Occupation: [employer] Leisure & Hobbies: 9 grandchildren Additional Comments: Pt has been wearing boot on L foot since L 1st toe amp ~3 weeks ago (differentfacility) Objective Observation/Palpation Posture: Fair Observation: Jaundice; dry [...] Minimum assistance;Assist X1 (Pt completed sup<>sit transfers w/Ghulam and extended time this session; limited by abdominal pain & generalized weakness. Pt cued for use of bedrail and line awareness, all to increase overall safety. Pt lightheaded once seated atEOB - see ADL section.) Interventions: Safety awareness [...] and found to be 132/32 (MAP 55) -pt assisted back to supine at this time & pt reporting symptoms resolved when laying flat. Additional ADL Comments: Pt's ADL performance limited at this time by abdominal pain, decreased functional activity tolerance and hypotension/lightheadedness when seated at EOB. Pt will require reassessment of functional transfers & mobility tasks when tolerated, as pt was lightheadedness/dizzyseated at EOB. Vision Vision: Impaired Vision Exceptions: [...] Continued education needed;Verbalized understanding AM-PAC - ADL AM-PAC Daily Activity - Inpatient How much help [...] How much help for eating meals?: None AM-PAC Inpatient Daily Activity Raw Score: 16 AM-PAC Inpatient ADL T-Scale Score : 35.96 ADL [...] for increased safety/IND with self care tasks. Recreation Assistant Goals Usp Goal 1: Pt to be IND with [...] Tx Time: 12 minutes Erica Funez OT * Poncho Cadena - 04/25/2023 11:56 AM EST SPIRITUAL CARE DEPARTMENT - [facility] PROGRESS NOTE Room # 1016/1016-02 Name: Venancio Nelson Reason for visit: Routine I visited the patient. Admit Date & Time: 04/23/2023 1:18 PM Assessment: Venancio Nelson is a 62 y.o. female. Expander Machine Operator consult, PT: declines .Upon entering the room patient states well, states no major needs or prayers. Patient was passive, quite. PT: declines Spiritual Care visit. Expander Machine Operator leaves prayer card for patient for possible follow up as needed. Intervention: Expander Machine Operator provided a ministry presence. Outcome: Patient has no response Plan: Chaplains will remain available to offer spiritual and emotional support as needed. . Spiritual Care Department [facility] 04/25/23 1155 Encounter Summary Service Provided For: Patient Referral/Consult From: Nurse;Rounding Support System Unknown Last Encounter 04/25/23 Complexity of Encounter Low Begin Time 1107 End Time 1109 Total Time Calculated 2 min Assessment/Intervention/Outcome Assessment Unable to assess Intervention Sustaining Presence/Ministry of presence Outcome Refused/Declined * Beth Keenan PT - 04/25/2023 11:18 AM EST Physical Therapy Facility/Department: [facility] Physical Therapy Initial Assessment Name: Venancio Nelson : 1960 Date of Service: 04/25/2023 ARVIL Hatfield reports patient is medically stable for therapy treatment this date. Chart reviewed prior to treatment and patient is agreeable for therapy. All lines intact and patient positioned comfortably at end of treatment. All patient needs addressed prior to ending therapy session. Discharge Recommendations: Patient would benefit from continued therapy after discharge Per H&P: Venancio Nelson is a 62 y.o. Non- / non female who presents with No chief complaint on file. and is admitted to the hospital for the management of Obstructive jaundice. Patient reports that over the past 2 weeks she has had significant epigastric discomfort after mealtimes. Over the past 48 hours she is having inability to eat or drink anything without severe nauseaand vomiting. She reported to a local emergency department where lab work and imaging is consistentwith obstructive jaundice. Patient is sent to this [...] fair. Activity significantly limited by lightheadedness this date.Pt presenting w/ deficits in strength, mobility, and [...] supine in bed upon arrival. Pt requiring encouragementthroughout. Subjective Subjective: Pt reporting feeling not great [...] AD at baseline) Transfer Assistance: Independent Active Gravel Roofer: No Patient's Gravel Roofer Info: family Occupation: Retired Type of Occupation: [employer] Leisure & Hobbies: 9 grandchildren Additional Comments: Pt has been wearing boot on L foot since L 1st toe amp ~3 weeks ago (differentfacility) Vision/Hearing Vision Vision: Impaired Vision Exceptions: Wears [...] Pt w/ heavy reliance on bedrails for UEassist. Upon sitting at EOB, pt reporting significant lightheadedness which was not subsiding. Pt'sBP checked and was 132/32 mmHg (map 55). Pt reporting lightheadedness continuing and stating I just feel like I'm going to pass out. Pt assisted back to supine where lightheadedness subsided after ~1-2 minutes. Assist required for safe line mgmt throughout. Transfers Comment: Not assessed this date d/t lightheadedness & low diastolic BP & MAP this date. Seebed mobility section for details. PT will continue to progress mobility as safe and able throughoutadmission. Balance Posture: Fair Sitting - Static: Good;- [...] relief techniques in order to maintain skin integrityand prevent pressure injuries Short Term Goal 4: [...] Treatment time: 10 minutes Beth Keenan, PT * Isra Farley APRN - RU - 04/25/2023 10:29 AM EST Images from the original note were not included. [facility] Office: [phone] Kevin Floyd DO, Aniket Malik DO, Denton Herrmann DO, Luc Tony DO, Lubna Muñiz MD, Barbara Mari MD, Hussain Peraza MD, Alejandra Jacobsen MD, Buck Mcgee MD, Sapna Charles MD, Max Hill MD, Marlys Beckett DO, Jeromy Samson MD, Kavon Romero MD, Reid Floyd DO, Venancio Cochran MD, Michael Peterson DO, Stefanie Reynolds MD, Sadia Bazan MD, Lyn Singh MD, Shailesh Miranda MD, John Watkins MD, Cheng Montengero MD, Tiffanie Hernandez MD, Yong Garrido MD, Simone Cunha MD, Doretha Pringle MD, Malik Carmona DO, Floyd Hardy DO, Ivan Perez MD, Latrell Barrientos MD, Anny Garcia, SENIOR ANALYTIC CONSULTANT, Mini Monson SENIOR ANALYTIC CONSULTANT, Isra Farley SENIOR ANALYTIC CONSULTANT, Meeta Mejia, [facility],Darlene Mcnair, SENIOR ANALYTIC CONSULTANT, Piedad Perez, SENIOR ANALYTIC CONSULTANT, Jocelyn Guerrero, SENIOR ANALYTIC CONSULTANT, Alicia Lugo, SENIOR ANALYTIC CONSULTANT, Christal Rosa, SENIOR ANALYTIC CONSULTANT, Savana Brewster PA-C, Bettina Dominguez PA-C, Jayna Brewster, SENIOR ANALYTIC CONSULTANT, Leticia Ortiz, [facility], Eliza Wong, SENIOR ANALYTIC CONSULTANT, Willow Garduno, SENIOR ANALYTIC CONSULTANT, Arabella Wood, SENIOR ANALYTIC CONSULTANT [facility] IN-PATIENT SERVICE [facility] Progress Note 04/25/2023 10:29 AM Name: Venancio Nelson Acct: [id number] Room: [facility]/1016-02 Day: 2 Admit Date: 04/23/2023 1:18 PM PCP: Lázaro Riddle MD Code Status: Full Code Subjective: [...] inability to eat or drink anything without severenausea and vomiting. She reported to a local emergency department where lab work and imaging is cons istent with obstructive jaundice. Patient is sent to [...] results reviewed and concerning for pancreatic mass. ERCPplanned for 04/25. Review of Systems: Review of [...] OR dextrose bolus, glucagon (rDNA), dextrose, sodium chlorideflush, sodium chloride, potassium chloride OR potassium alternative [...] smoking cigarettes. She has never used smokeless tobacco.She reports that she does not currently use [...] , PHART , PH , POCPCO2 , CIF2BTI , PCO2 , POCPO2 , PO2ART , PO2 , POCHCO3 , XAB4IHM , HCO3 , NBEA , PBEA , BEART , BE , THGBART , THB , TUQ6LNT , WAAL5ZFD , L5RHJWSI , O2SAT , FIO2 No results found for: SPECIAL No results found for: CULTURE Radiology: MRI ABDOMEN W WO CONTRAST MRCP Result Date: 04/24/2023 1. Subtle focal area of hypoenhancement and increased T2 signal within the pancreatic head measuring approximately 2.8 x 2.1 cm extending predominantly within the pancreaticoduodenal groove. There isassociated restricted diffusion. There is moderate intra and [...] Yes Overview Signed 04/23/2023 3:38 PM by Isra Farley APRN - NP moderate per cath 08/07/2020 Obesity due to excess calories 04/23/2023 Yes Hypercholesterolemia 04/23/2023 Yes Diabetes mellitus type II, controlled (HCC) 04/23/2023 Yes Coronary arteriosclerosis 04/23/2023 Yes Overview Signed 04/23/2023 3:38 PM by Isra Farley APRN - NP mild per cath [...] n.p.o. CHACHO Camacho NP 04/25/2023 10:29 AM * Isra Farley APRN - NP - 04/24/2023 1:35 PM EST Images from the original note were not included. [facility] Office: [phone] Kevin Floyd DO, Aniket Malik DO, Denton Herrmann DO, Luc Tony DO, Lubna Muñiz MD, Barbara Mari MD, Hussain Peraza MD, Alejandra Jacobsen MD, Buck Mcgee MD, Sapna Charles MD, Max Hill MD, Marlys Beckett DO, Jeromy Samson MD, Kavon Romero MD, Reid Floyd DO, Venancio Cochran MD, Michael Peterson DO, Stefanie Reynolds MD, Sadia Bazan MD, Lyn Singh MD, Shailesh Miranda MD, John Watkins MD, Cheng Montenegro MD, Tiffanie Hernandez MD, Yong Garrido MD, Simone Cunha MD, Doretha Pringle MD, Malik Carmona DO, Floyd Hardy DO, Ivan Perez MD, Latrell Barrientos MD, Anny Garcia CNP, Mini Monson CNP, Isra Farley, CELSO, Meeta Mejia, ABHINAV,Darlene Mcnair, SENIOR ANALYTIC CONSULTANT, Piedad Perez, SENIOR ANALYTIC CONSULTANT, Jocelyn Guerrero SENIOR ANALYTIC CONSULTANT, Alicia Lugo, SENIOR ANALYTIC CONSULTANT, Christal Rosa, SENIOR ANALYTIC CONSULTANT, Savana Brewster PAAntonioC, KYRIE VidalC, Jayna Brewster, SENIOR ANALYTIC CONSULTANT, Leticia Ortiz, COW TESTER, Eliza Wong, SENIOR ANALYTIC CONSULTANT, Willow Garduno, SENIOR ANALYTIC CONSULTANT, Arabella Wood, SENIOR ANALYTIC CONSULTANT [facility] IN-PATIENT SERVICE [facility] Progress Note 04/24/2023 1:36 PM Name: Venancio Nelson Acct: [id number] Room: 1016/1016-02 Day: 1 Admit Date: 04/23/2023 1:18 PM PCP: Lázaro Riddle MD Code Status: Full Code Subjective: [...] inability to eat or drink anything without severenausea and vomiting. She reported to a local emergency department where lab work and imaging is cons istent with obstructive jaundice. Patient is sent to [...] OR dextrose bolus, glucagon (rDNA), dextrose, sodium chlorideflush, sodium chloride, potassium chloride OR potassium alternative [...] smoking cigarettes. She has never used smokeless tobacco.She reports that she does not currently use [...] , PHART , PH , POCPCO2 , UIZ6VUN , PCO2 , POCPO2 , PO2ART , PO2 , POCHCO3 , TXJ4NRP , HCO3 , NBEA , PBEA , BEART , BE , THGBART , THB , DQP9HBE , NWZX0QPE , M9WNQEES , O2SAT , FIO2 No results found for: SPECIAL No results found for: CULTURE Radiology: MRI ABDOMEN W WO CONTRAST MRCP Result Date: 04/24/2023 1. Subtle focal area of hypoenhancement and increased T2 signal within the pancreatic head measuring approximately 2.8 x 2.1 cm extending predominantly within the pancreaticoduodenal groove. There isassociated restricted diffusion. There is moderate intra and [...] Yes Overview Signed 04/23/2023 3:38 PM by Isra Farley APRN - BLOW OFF WORKER moderate per cath 08/07/2020 Obesity due to excess calories 04/23/2023 Yes Hypercholesterolemia 04/23/2023 Yes Diabetes mellitus type II, controlled (HCC) 04/23/2023 Yes Coronary arteriosclerosis 04/23/2023 Yes Overview Signed 04/23/2023 3:38 PM by Isra Farley HOME PARAPROFESSIONAL - BLOW OFF WORKER mild per cath 08/07/2020 Plan: Obstructive jaundice [...] n.p.o. CHACHO Camacho NP 04/24/2023 1:36 PM * Clau Santiago RN - 04/24/2023 11:40 AM EST Patient with elevated BG (330) fluids running at 125, D5 0.45% NaCl with 20 KCl. Perfect serve sentto Edwar Farley NP. See orders. Gallbladder ultrasound results reviewed waiting on MRI to result. Patient c/o of nausea prn Zofran given. Patient resting eyes closed. * Juan Gusman RN - 04/24/2023 4:19 AM EST Patient has been NPO since midnight for MRCP & gallbladder ultrasound. Patient received scheduled IV Zosyn. Klevpv-cf-lqp colored urine through Purewick. Denies flank pain throughout shift. Side raised x2 raised for patient safety. Will monitor. * Douglas Pickett RN - 04/23/2023 1:35 PM EST Patient arrived in room 1016 from [facility]. Vital signs and assessment obtained. Patient A&O x 4. Patient currently denies pain. GI notified of new consult via lauren mederos. Will continue to monitor patient closely. [facility]* Encounter Date Diagnosis Assessment Notes Treatment Notes Treatment Clinical Notes Apr, Peripheral artery disease (ICD-10 - I73.9) 16 Richard, 2024 Other Peripheral traci rial occlusive disease Based on her current history and exam she is doing quite well. We will see her back in 3 months with ankle-brachial indices at that time. She may return sooner should her wounds deteriorate in any way. [employer] Other 12-15-2023 Progress note Author Reyes Hamilton [facility] March 18, 2023 2:34am Note Date/Time March 17, 2023 12:08pm [facility] [address] [place] [address] Hospitalist Progress Note Signed Patient: Venancio Nleson MR#: [id number] : 1960 Acct:[id number] Age/Sex: 62 / F Adm Date: 3 Loc: 4N Room: [address] [place] [address] Type: DIS IN Attending Dr: Luc Vargas [...] 500 Mg Tablet PO 03/17/24 16:59 BID.WITH.MEALS [facility] Metoprolol Tartrate 100 mg 03/16/23 21:00 03/17/23 08:11 Metoprolol Tartrate 100 Mg Tablet PO 03/15/24 20:59 100 mg BID EMILIE Administration Non-Formulary Medication 0.75 mg 03/23/23 09:00 Dulaglutide [Trulicity] SUBCUT 03/22/24 08:59 QWEEK EMILIE Ondansetron HCl 4 mg 03/16/23 16:19 Ondansetron [...] MD Documented By: Eliza Pichardo APRN 03/17/23 1209 Signed By: <Electronically signed by CHACHO Pichardo> 03/17/23 1415 <Electronically signed by Reyes Hamilton MD> 03/18/23 0235 [facility] Work Phone: [phone] 903-180112-15-2023 Consult note Author Reyes Hamilton [facility] March 17, 2023 2:47am Note Date/Time March 16, 2023 6:49pm [facility] [address] [place] [address] Hospitalist Consult Note Signed Patient: Venancio Nelson MR#: [id number] : 1960 Acct:[id number] Age/Sex: 62 / F Adm Date: 3 Loc: Room: [address] [place] [address] Type: ADM IN Attending Dr: Luc Vargas [...] negative unless noted in the HPI below [facility] Medical History Carotid stenosis CHF (congestive heart [...] 81 Mg Tablet.Dr PO 03/16/24 08:59 DAILY EMILIE Atorvastatin Calcium 20 mg 03/17/23 09:00 Atorvastatin 20 Mg Tablet PO 03/16/24 08:59 DAILY [facility] Clopidogrel Bisulfate 75 mg 03/17/23 09:00 Clopidogrel Bisulfate 75 Mg Tablet PO 03/16/24 08:59 DAILY [facility] Docusate Sodium 100 mg 03/16/23 21:00 Docusate [...] 03/17/23 00:30 Vancomycin IV 03/17/23 01:29 Q12H [facility] Insulin Glargine 20 units 03/16/23 21:00 Insulin Glargine 300 Units/3 Ml Insuln.Pen SUBCUT 03/15/24 20:59 BID [facility] Lisinopril 30 mg 03/17/23 09:00 Lisinopril 10 Mg Tablet PO 03/16/24 08:59 DAILY [facility] Metformin HCl 500 mg 03/18/23 17:00 Metformin 500 Mg Tablet PO 03/17/24 16:59 BID.WITH.MEALS [facility] Metoprolol Tartrate 100 mg 03/16/23 21:00 Metoprolol Tartrate 100 Mg Tablet PO 03/15/24 20:59 BID [facility] Non-Formulary Medication 0.75 mg 03/23/23 09:00 Dulaglutide [Trulicity] SUBCUT 03/22/24 08:59 QWEEK [facility] Ondansetron HCl 4 mg 03/16/23 16:19 Ondansetron [...] 50 Mg Tablet PO 03/16/24 08:59 DAILY [facility] Exam Physical Exam Vital Signs: Temp Pulse [...] % (Auto) 73.3, Lymph % (Auto) 17.5, [place] % (Auto) 5.8, Eos % (Auto) 2.3, Baso % (Auto) 1.1, Nucleat RBC Rel Count 0.0, Neut # (Auto) 8.1 H, Lymph # (Auto) 1.9, [place] # (Auto) 0.6, Eos # (Auto) 0.3, [...] Hamilton MD Documented By: Eliza Pichardo APRN 03/16/23 184 Signed By: <Electronically signed by CHACHO Pichardo> 03/16/23 192 <Electronically signed by Reyes Hamilton MD> 03/17/23 024 [facility] Work Phone: [phone]) 378-252511-14-2023 Evaluation note* Encounter Date Diagnosis Assessment Notes [...] She will continue her other medical therapy. [facility] Other 10-13-2023 Hospital Discharge instructions Follow Up Care 01/13/2023 13:19:06 With:Lázaro Riddle Address: [address] [facility]- Business (2) When:1 to 2 days [facility]03-27-2023 Evaluation note* Encounter Date Diagnosis Assessment Notes [...] every 6 months with repeat ultrasound examination. [facility] Other 07-26-2022 Evaluation note* Encounter Date Diagnosis [...] 6 months with repeat carotid duplex examination. [facility] Other Evaluation + Plan note Future Appointments Appointment Date:01/16/2023 01:00:00 PM Scheduled Provider:Lázaro Riddle MD Location:[facility] Appointment Type:FM Open Appointment Date:01/19/2023 02:15:00 PM Scheduled Provider:Felix Andrew MD [facility] [place] Appointment Type:Cardiology Follow Up (FT) Future Scheduled Tests Radiology* NM Myocardial Spect Rest/Stress 1 Day 12/08/22 * Echo Transthoracic [facility] 12[facility]08/22 [facility] Appointment Date:03/21/2023 03:00:00 PM Scheduled Provider:Lázaro Riddle MD Location:[facility] Appointment Type: Open Diagnostic Tests Pending * Wound Culture 01/24/23 Future Scheduled Tests Radiology* NM Myocardial Spect Rest/Stress 1 Day 12/08/22 * Echo Transthoracic Complete 12/08/22 [facility] App[facility]ments Appointment Date:03/21/2023 03:00:00 PM Scheduled Provider:Lázaro Riddle MD Location:[facility] Appointment Type:FM Open Future Scheduled Tests Radiology* NM Myocardial Spect Rest/Stress 1 Day 12/08/22 * Echo Transthoracic Complete 12/08/22 [facility] App[facility]ments Appointment Date:04/25/2023 01:00:00 PM Scheduled Provider:Lázaro Riddle MD Location:[facility] Appointment Type:FM Open Appointment Date:05/05/2023 10:15:00 AM Scheduled Provider:Felix Andrew MD [facility] Appointment Type:Cardiology Follow Up (FT) Future Scheduled Tests Radiology* NM Myocardial Spect Rest/Stress 1 Day 12/08/22 * Echo Transthoracic Complete 12/08/22 [facility] App[facility]ments Appointment Date:05/05/2023 10:15:00 AM Scheduled Provider:Felix Andrew MD Location:[facility] Appointment Type:Cardiology Follow Up (FT) Appointment Date:05/18/2023 09:30:00 AM Scheduled Provider:Francine Sarabia DO [facility] Type:ONC Office Visit 30 (FT) Appointment Date:06/06/2023 02:15:00 PM Scheduled Provider:Lázaro Riddle MD Location:[facility] Appointment Type: Open Future Scheduled Tests Radiology* CT Biopsy, Lung/Mediastinum 05/05/23 * Echo Transthoracic Complete 12/08/22 [facility] App[facility]ments Appointment Date:05/05/2023 10:15:00 AM Scheduled Provider:Felix Andrew MD Location:[facility] Appointment Type:Cardiology Follow Up (FT) Appointment Date:05/18/2023 09:30:00 AM Scheduled Provider:Francine Sarabia DO [facility] Type:ONC Office Visit 30 (FT) Appointment Date:06/06/2023 02:15:00 PM Scheduled Provider:Lázaro Riddle MD Location:[facility] Appointment Type: Open Diagnostic Tests Pending * CA 19-9 05/04/23 * Erythropoietin Level 05/04/23 Future Scheduled Tests Radiology* CT Biopsy, Lung/Mediastinum 05/05/23 * Echo Transthoracic Complete 12/08/22 [facility] App[facility]ments Appointment Date:05/18/2023 09:30:00 AM Scheduled Provider:Francine Sarabia DO [facility] Type:ONC Office Visit 30 (FT) Appointment Date:06/06/2023 02:15:00 PM Scheduled Provider:Lázaro Riddle MD Location:[facility] Appointment Type: Open Appointment Date:07/07/2023 11:15:00 AM Scheduled Provider:Felix Andrew MD [facility] Appointment Type:Cardiology Follow Up (FT) Future Scheduled Tests Radiology* CT Biopsy, Lung/Mediastinum 05/05/23 * Echo Transthoracic Complete 12/08/22 [facility] Future App[facility]ments Appointment Date:05/16/2023 11:00:00 AM Scheduled Provider:BETHANY LAM MD [facility] App[facility] Type:ONC Supportive Care New (FT) Appointment Date:05/18/2023 09:30:00 AM Scheduled Provider:Francine Sarabia DO [facility] App[facility] Type:ONC Office Visit 30 (FT) Appointment Date:06/06/2023 02:15:00 PM Scheduled Provider:Lázaro Riddle MD Location:[facility] Appointment Type: Open Appointment Date:06/09/2023 02:15:00 PM Scheduled Provider:Felix Andrew MD [facility] Appointment Type:Cardiology Follow Up (FT) Future Scheduled Tests Radiology* CT Biopsy, Lung/Mediastinum 05/05/23 * Echo Transthoracic Complete 12/08/22 [facility] Future App[facility]ments Appointment Date:05/18/2023 09:30:00 AM Scheduled Provider:Francine Sarabia DO [facility] App[facility] Type:ONC Office Visit 30 (FT) Appointment Date:06/06/2023 02:15:00 PM Scheduled Provider:Lázaro Riddle MD Location:[facility] Appointment Type: Open Appointment Date:06/09/2023 02:15:00 PM Scheduled Provider:Felix Andrew MD [facility] Appointment Type:Cardiology Follow Up (FT) Future Scheduled Tests Radiology* CT Biopsy, Lung/Mediastinum 05/05/23 * Echo Transthoracic Complete 12/08/22 [facility] Future App[facility]ments Appointment Date:05/31/2023 11:00:00 AM Scheduled Provider:Francine Sarabia DO [facility] App[facility] Type:ONC Office Visit 30 (FT) Appointment Date:06/06/2023 02:15:00 PM Scheduled Provider:Lázaro Riddle MD Location:[facility] Appointment Type: Open Appointment Date:06/09/2023 02:15:00 PM Scheduled Provider:Felix Andrew MD Location:[facility] Appointment Type:Cardiology Follow Up (FT) Future Scheduled Tests Laboratory* CA 19-9 05/29/23 * CBC w/ Auto Diff 05/17/23 * CBC w/ Auto Diff 05/29/23 * CEA 05/29/23 * Comprehensive Metabolic Panel 05/17/23 * Comprehensive Metabolic Panel 05/29/23 Radiology* CT Biopsy, Lung/Mediastinum 05/05/23 * Echo Transthoracic Complete 12/08/22 [facility] App[facility]ments Appointment Date:05/31/2023 11:00:00 AM Scheduled Provider:Francine Sarabia DO [facility] App[facility] Type:ONC Office Visit 30 (FT) Appointment Date:05/31/2023 01:00:00 PM Scheduled Provider: [facility] Appoint[facility] Type:ONC Venofer (FT) Appointment Date:06/06/2023 02:15:00 PM Scheduled Provider:Lázaro Riddle MD Location:[facility] Appointment Type: Open Appointment Date:06/07/2023 01:00:00 PM Scheduled Provider: [facility] Appoint[facility] Type:ONC Venofer (FT) Appointment Date:06/09/2023 02:15:00 PM Scheduled Provider:Felix Andrew MD [facility] Appointment Type:Cardiology Follow Up (FT) Appointment Date:06/14/2023 01:00:00 PM Scheduled Provider: Location[facility] Appointment Type:ONC Venofer (FT) Future Scheduled Tests Laboratory* CA 19-9 05/29/23 * CBC w/ Auto Diff 05/17/23 * CBC w/ Auto Diff 05/29/23 * CEA 05/29/23 * Comprehensive Metabolic Panel 05/17/23 * Comprehensive Metabolic Panel 05/29/23 Radiology* CT Biopsy, Lung/Mediastinum 05/05/23 * Echo Transthoracic Complete 12/08/22 [facility] [place] Evaluation + Plan note Future Appointments Appointment Date:05/31/2023 09:00:00 AM Scheduled Provider: Location[facility] Appointment Type:ONC Folfirinox (FT) Appointment Date:05/31/2023 11:00:00 AM Scheduled Provider:Francine Sarabia DO Location[facility] Appointment Type:ONC Office Visit 30 (FT) Appointment Date:06/02/2023 11:30:00 AM Scheduled Provider: Location[facility] Appointment Type:ONC Pump Disconnect (FT) Appointment Date:06/06/2023 02:15:00 PM Scheduled Provider:Lázaro Riddle MD Location:[facility] Appointment Type:FM Open Appointment Date:06/07/2023 01:00:00 PM Scheduled Provider: Location:.[facility] Appointment Type:ONC Venofer (FT) Appointment Date:06/07/2023 01:40:00 PM Scheduled Provider:Reid SHIPLEY MD Location:[facility] Appointment Type: Post Op 15 Appointment Date:06/09/2023 02:15:00 PM Scheduled Provider:Felix Andrew MD [facility] [place] Appointment Type:Cardiology Follow Up (FT) Appointment Date:06/14/2023 01:00:00 PM Scheduled Provider: Location:.[facility] Appointment Type:ONC Venofer (FT) Diagnostic Tests Pending * CA 19-9 05/30/23 * Path. Review 05/30/23 Future Scheduled Tests Laboratory* CBC w/ Auto Diff 05/17/23 * Comprehensive Metabolic Panel 05/17/23 Radiology* CT Biopsy, Lung/Mediastinum 05/05/23 * Echo Transthoracic Complete 12/08/22 [facility] App[facility]ments Appointment Date:06/02/2023 11:30:00 AM Scheduled Provider: Location[facility] Appointment Type:ONC Pump Disconnect (FT) Appointment Date:06/06/2023 02:15:00 PM Scheduled Provider:Lázaro Riddle MD Location:[facility] Appointment Type:FM Open Appointment Date:06/07/2023 01:00:00 PM Scheduled Provider: [facility] Appoint[facility] Type:ONC Venofer (FT) Appointment Date:06/07/2023 01:40:00 PM Scheduled Provider:Reid SHIPLEY MD Location:[facility] Appointment Type:GS Post Op 15 Appointment Date:06/09/2023 02:15:00 PM Scheduled Provider:Felix Andrew MD [facility] [place] Appointment Type:Cardiology Follow Up (FT) Appointment Date:06/14/2023 01:00:00 PM Scheduled Provider: [facility] App[facility] Type:ONC Venofer (FT) Future Scheduled Tests Laboratory* CBC w/ Auto Diff 05/17/23 * Comprehensive Metabolic Panel 05/17/23 Radiology* CT Biopsy, Lung/Mediastinum 05/05/23 * Echo Transthoracic Complete 12/08/22 [facility] Future App[facility]ments Appointment Date:06/06/2023 11:30:00 AM Scheduled Provider: [facility] App[facility] Type:ONC Lab Port (FT) Appointment Date:06/06/2023 11:30:00 AM Scheduled Provider: [facility] Appoint[facility] Type:ONC Venofer (FT) Appointment Date:06/06/2023 01:00:00 PM Scheduled Provider:BETHANY LAM MD [facility] Appointment Type:ONC Supportive Care Follow Up (FT) Appointment Date:06/06/2023 02:15:00 PM Scheduled Provider:Lázaro Riddle MD Location:[facility] Appointment Type:FM Open Appointment Date:06/07/2023 01:40:00 PM Scheduled Provider:Reid SHIPLEY MD Location:[facility] Appointment Type:GS Post Op 15 Appointment Date:06/09/2023 02:15:00 PM Scheduled Provider:Felix Andrew MD [facility] [place] Appointment Type:Cardiology Follow Up (FT) Appointment Date:06/14/2023 01:00:00 PM Scheduled Provider: [facility] Appoint[facility] Type:ONC Venofer (FT) Future Scheduled Tests Laboratory* Erythropoietin Level 06/07/23 * CBC w/ Auto Diff 05/17/23 * CBC w/ Auto Diff 06/07/23 * CBC w/ Auto Diff 06/14/23 * CBC w/ Auto Diff 06/28/23 * Comprehensive Metabolic Panel 05/17/23 * Comprehensive Metabolic Panel 06/07/23 * Comprehensive Metabolic Panel 06/14/23 * Comprehensive Metabolic Panel 06/28/23 * Ferritin 06/07/23 * Folate Level 06/07/23 * Iron Level 06/07/23 * Iron Percent Saturation 06/07/23 * Transferrin 06/07/23 * Vitamin B12 Level 06/07/23 Radiology* CT Biopsy, Lung/Mediastinum 05/05/23 * Echo Transthoracic Complete 12/08/22 [facility] App[facility]ments Appointment Date:06/09/2023 02:15:00 PM Scheduled Provider:Felix Andrew MD [facility] Appointment Type:Cardiology Follow Up (FT) Appointment Date:06/13/2023 01:15:00 PM Scheduled Provider: [facility] Appoint[facility] Type:ONC Lab Port (FT) Appointment Date:06/14/2023 09:00:00 AM Scheduled Provider: [facility] Appoint[facility] Type:ONC Folfirinox (FT) Appointment Date:06/14/2023 01:00:00 PM Scheduled Provider: [facility] Appoint[facility] Type:ONC Venofer (FT) Appointment Date:06/16/2023 11:30:00 AM Scheduled Provider: Location[facility] Appointment Type:ONC Pump Disconnect (FT) Appointment Date:07/25/2023 10:00:00 AM Scheduled Provider:Lázaro Riddle MD Location:[facility] Appointment Type: Open Future Scheduled Tests Laboratory* CBC w/ Auto Diff 05/17/23 * CBC w/ Auto Diff 06/14/23 * CBC w/ Auto Diff 06/28/23 * Comprehensive Metabolic Panel 05/17/23 * Comprehensive Metabolic Panel 06/14/23 * Comprehensive Metabolic Panel 06/28/23 * Ferritin 06/07/23 * Folate Level 06/07/23 * Iron Level 06/07/23 * Iron Percent Saturation 06/07/23 * Transferrin 06/07/23 * Vitamin B12 Level 06/07/23 Radiology* CT Biopsy, Lung/Mediastinum 05/05/23 * Echo Transthoracic Complete 12/08/22 [facility] [place] Evaluation + Plan note Future Appointments Appointment Date:06/13/2023 01:15:00 PM Scheduled Provider: Location:.[facility] Appointment Type:ONC Lab Port (FT) Appointment Date:06/14/2023 09:00:00 AM Scheduled Provider: Location:.[facility] Appointment Type:ONC Folfirinox (FT) Appointment Date:06/14/2023 01:00:00 PM Scheduled Provider: Location:.[facility] Appointment Type:ONC Venofer (FT) Appointment Date:06/16/2023 11:30:00 AM Scheduled Provider: Location[facility] Appointment Type:ONC Pump Disconnect (FT) Appointment Date:06/28/2023 08:45:00 AM Scheduled Provider:Francine Sarabia DO Location[facility] Appointment Type:ONC Office Visit 30 (FT) Appointment Date:06/28/2023 11:00:00 AM Scheduled Provider:BETHANY LAM MD Location[facility] Appointment Type:ONC Supportive Care Follow Up (FT) Appointment Date:07/25/2023 10:00:00 AM Scheduled Provider:Lázaro Riddle MD Location:[facility] Appointment Type: Open [facility] Scheduled Tests Laboratory* CBC w/ Auto Diff 06/14/23 * CBC w/ Auto Diff 06/28/23 * Comprehensive Metabolic Panel 06/14/23 * Comprehensive Metabolic Panel 06/28/23 * Ferritin 06/07/23 * Folate Level 06/07/23 * Iron Level 06/07/23 * Iron Percent Saturation 06/07/23 * Transferrin 06/07/23 * Vitamin B12 Level 06/07/23 Radiology* CT Biopsy, Lung/Mediastinum 05/05/23 * Echo Transthoracic [facility] 12/08/22 [facility] Future App[facility]ments Appointment Date:06/14/2023 09:00:00 AM Scheduled Provider: Location:.[facility] Appointment Type:ONC Folfirinox (FT) Appointment Date:06/14/2023 01:00:00 PM Scheduled Provider: Location:.[facility] Appointment Type:ONC Venofer (FT) Appointment Date:06/16/2023 11:30:00 AM Scheduled Provider: Location:.[facility] Appointment Type:ONC Pump Disconnect (FT) Appointment Date:06/28/2023 08:45:00 AM Scheduled Provider:Francine Sarabia DO Location:.[facility] Appointment Type:ONC Office Visit 30 (FT) Appointment Date:06/28/2023 09:00:00 AM Scheduled Provider: Location:.[facility] Appointment Type:ONC Folfirinox (FT) Appointment Date:06/28/2023 11:00:00 AM Scheduled Provider:BETHANY LAM MD [facility] Type:ONC Supportive Care Follow Up (FT) Appointment Date:06/30/2023 09:00:00 AM Scheduled Provider: Location:.[facility] Appointment Type:ONC Pump Disconnect (FT) Appointment Date:07/25/2023 10:00:00 AM Scheduled Provider:Lázaro Riddle MD Location:[facility] Appointment Type: Open Future Scheduled Tests Laboratory* CBC w/ Auto Diff 06/28/23 * Comprehensive Metabolic Panel 06/28/23 * Ferritin 06/07/23 * Folate Level 06/07/23 * Iron Level 06/07/23 * Iron Percent Saturation 06/07/23 * Transferrin 06/07/23 * Vitamin B12 Level 06/07/23 Radiology* CT Biopsy, Lung/Mediastinum 05/05/23 * Echo Transthoracic Complete 12/08/22 [facility] App[facility]ments Appointment Date:06/16/2023 11:30:00 AM Scheduled Provider: Location[facility] Appointment Type:ONC Pump Disconnect (FT) Appointment Date:06/27/2023 01:30:00 PM Scheduled Provider: Location:.[facility] Appointment Type:ONC Lab Port (FT) Appointment Date:06/28/2023 08:45:00 AM Scheduled Provider:Francine Sarabia DO [facility] Type:ONC Office Visit 30 (FT) Appointment Date:06/28/2023 09:00:00 AM Scheduled Provider: Location:.[facility] Appointment Type:ONC Folfirinox (FT) Appointment Date:06/28/2023 11:00:00 AM Scheduled Provider:BETHANY LAM MD [facility] Type:ONC Supportive Care Follow Up (FT) Appointment Date:06/30/2023 09:00:00 AM Scheduled Provider: [facility] App[facility] Type:ONC Pump Disconnect (FT) Appointment Date:07/25/2023 10:00:00 AM Scheduled Provider:Lázaro Riddle MD Location:[facility] Appointment Type: Open Future Scheduled Tests Laboratory* CBC w/ Auto Diff 06/28/23 * Comprehensive Metabolic Panel 06/28/23 * Ferritin 06/07/23 * Folate Level 06/07/23 * Iron Level 06/07/23 * Iron Percent Saturation 06/07/23 * Transferrin 06/07/23 * Vitamin B12 Level 06/07/23 Radiology* CT Biopsy, Lung/Mediastinum 05/05/23 * Echo Transthoracic Complete 12/08/22 [facility] App[facility]ments Appointment Date:06/27/2023 01:30:00 PM Scheduled Provider: Location:.[facility] Appointment Type:ONC Lab Port (FT) Appointment Date:06/28/2023 08:45:00 AM Scheduled Provider:Francine Sarabia DO [facility] Type:ONC Office Visit 30 (FT) Appointment Date:06/28/2023 09:00:00 AM Scheduled Provider: Location:.[facility] Appointment Type:ONC Folfirinox (FT) Appointment Date:06/28/2023 11:00:00 AM Scheduled Provider:BETHANY LAM MD [facility] Type:ONC Supportive Care Follow Up (FT) Appointment Date:06/30/2023 09:00:00 AM Scheduled Provider: [facility] App[facility] Type:ONC Pump Disconnect (FT) Appointment Date:07/25/2023 10:00:00 AM Scheduled Provider:Lázaro Riddle MD Location:[facility] Appointment Type: Open Future Scheduled Tests Laboratory* CBC w/ Auto Diff 06/28/23 * Comprehensive Metabolic Panel 06/28/23 * Ferritin 06/07/23 * Folate Level 06/07/23 * Iron Level 06/07/23 * Iron Percent Saturation 06/07/23 * Transferrin 06/07/23 * Vitamin B12 Level 06/07/23 Radiology* CT Biopsy, Lung/Mediastinum 05/05/23 * Echo Transthoracic Complete 12/08/22 [facility] App[facility]ments Appointment Date:06/28/2023 08:45:00 AM Scheduled Provider:Francine Sarabia DO Location[facility] Appointment Type:ONC Office Visit 30 (FT) Appointment Date:06/28/2023 09:00:00 AM Scheduled Provider: Location:.[facility] Appointment Type:ONC Folfirinox (FT) Appointment Date:06/28/2023 11:00:00 AM Scheduled Provider:BETHANY LAM MD Location[facility] Appointment Type:ONC Supportive Care Follow Up (FT) Appointment Date:06/30/2023 09:00:00 AM Scheduled Provider: Location:.[facility] Appointment Type:ONC Pump Disconnect (FT) Appointment Date:07/11/2023 01:30:00 PM Scheduled Provider: Location:.[facility] Appointment Type:ONC Lab Port (FT) Appointment Date:07/12/2023 09:00:00 AM Scheduled Provider: Location:.[facility] Appointment Type:ONC Folfirinox (FT) Appointment Date:07/14/2023 09:00:00 AM Scheduled Provider: Location:.[facility] Appointment Type:ONC Pump Disconnect (FT) Appointment Date:07/25/2023 10:00:00 AM Scheduled Provider:Lázaro Riddle MD Location:[facility] Appointment Type:[facility] Scheduled Tests Laboratory* CBC w/ Auto Diff 07/12/23 * Comprehensive Metabolic Panel 07/12/23 * Ferritin 06/07/23 * Folate Level 06/07/23 * Iron Level 06/07/23 * Iron Percent Saturation 06/07/23 * Transferrin 06/07/23 * Vitamin B12 Level 06/07/23 Radiology* CT Biopsy, Lung/Mediastinum 05/05/23 * Echo Transthoracic Complete 12/08/[facility] Future App[facility]ments Appointment Date:06/30/2023 01:15:00 PM Scheduled Provider: Location:.[facility] Appointment Type:ONC Pump Disconnect (FT) Appointment Date:07/11/2023 01:30:00 PM Scheduled Provider: Location:.[facility] Appointment Type:ONC Lab Port (FT) Appointment Date:07/12/2023 09:00:00 AM Scheduled Provider: Location:.[facility] Appointment Type:ONC Folfirinox (FT) Appointment Date:07/14/2023 09:00:00 AM Scheduled Provider: Location:.[facility] Appointment Type:ONC Pump Disconnect (FT) Appointment Date:07/25/2023 10:00:00 AM Scheduled Provider:Lázaro Riddle MD Location:[facility] Appointment Type: Open Future Scheduled Tests Laboratory* CA 19-9 07/29/23 * CBC w/ Auto Diff 07/12/23 * CA 125 07/29/23 * CEA 07/29/23 * Comprehensive Metabolic Panel 07/12/23 * Ferritin 06/07/23 * Folate Level 06/07/23 * Iron Level 06/07/23 * Iron Percent Saturation 06/07/23 * Transferrin 06/07/23 * Vitamin B12 Level 06/07/23 Radiology* CT Biopsy, Lung/Mediastinum 05/05/23 * Echo Transthoracic [facility] 12[facility]08[facility] App[facility]ments Appointment Date:07/11/2023 01:30:00 PM Scheduled Provider: Location:.[facility] Appointment Type:ONC Lab Port (FT) Appointment Date:07/12/2023 09:00:00 AM Scheduled Provider: Location:.[facility] Appointment Type:ONC Folfirinox (FT) Appointment Date:07/14/2023 09:00:00 AM Scheduled Provider: Location:.[facility] Appointment Type:ONC Pump Disconnect (FT) Appointment Date:07/24/2023 01:00:00 PM Scheduled Provider: Location:.[facility] Appointment Type:ONC Lab Port (FT) Appointment Date:07/24/2023 01:30:00 PM Scheduled Provider:Beverley Roberts Location:.[facility] Appointment Type:ONC Office Visit 30 (FT) Appointment Date:07/25/2023 10:00:00 AM Scheduled Provider:Lázaro Riddle MD Location:[facility] Appointment Type: Open Future Scheduled Tests Laboratory* CA 19-9 07/29/23 * CBC w/ Auto Diff 07/12/23 * CA 125 07/29/23 * CEA 07/29/23 * Comprehensive Metabolic Panel 07/12/23 * Ferritin 06/07/23 * Folate Level 06/07/23 * Iron Level 06/07/23 * Iron Percent Saturation 06/07/23 * Transferrin 06/07/23 * Vitamin B12 Level 06/07/23 Radiology* CT Biopsy, Lung/Mediastinum 05/05/23 * Echo Transthoracic [facility]ments Appointment Date:07/10/2023 11:00:00 AM Scheduled Provider: Location:.ONCOLOGY Appointment Type:ONC Lab Port (FT) Appointment Date:07/11/2023 01:30:00 PM Scheduled Provider: Location:.ONCOLOGY Appointment Type:ONC Lab Port (FT) Appointment Date:07/12/2023 09:00:00 AM Scheduled Provider: Location:.ONCOLOGY Appointment Type:ONC Folfirinox (FT) Appointment Date:07/14/2023 09:00:00 AM Scheduled Provider: Location:.ONCOLOGY Appointment Type:ONC Pump Disconnect (FT) Appointment Date:07/24/2023 01:00:00 PM Scheduled Provider: Location:.ONCOLOGY Appointment Type:ONC Lab Port (FT) Appointment Date:07/24/2023 01:30:00 PM Scheduled Provider:Beverley Roberts Location:.ONCOLOGY Appointment Type:ONC Office Visit 30 (FT) Appointment Date:07/25/2023 10:00:00 AM Scheduled Provider:Lázaro Riddle MD Location:[facility] Appointment Type: Open Diagnostic Tests Pending * Clostridium Difficile PCR 07/06/23 Future Scheduled Tests Laboratory* CA 19-9 07/29/23 * CBC w/ Auto Diff 07/12/23 * CA 125 07/29/23 * CEA 07/29/23 * Comprehensive Metabolic Panel 07/12/23 Radiology* CT Biopsy, Lung/Mediastinum 05/05/23 * Echo Transthoracic [facility] Appointment Date:07/24/2023 01:00:00 PM Scheduled Provider: Location:.ONCOLOGY Appointment Type:ONC Lab Port (FT) Appointment Date:07/24/2023 01:30:00 PM Scheduled Provider:Beverley Roberts [facility] Type:[facility]C Office Visit 30 (FT) Appointment Date:07/25/2023 10:00:00 AM Scheduled Provider:Lázaro Riddle MD Location:[facility] Appointment Type:FM Open Appointment Date:07/26/2023 09:00:00 AM Scheduled Provider: [facility] Type:ONC Folfirinox (FT) Appointment Date:07/28/2023 11:30:00 AM Scheduled Provider: [facility] App[facility] Type:ONC Pump Disconnect (FT) Appointment Date:07/31/2023 10:15:00 AM Scheduled Provider:Lázaro Riddle MD Location:[facility] Appointment Type: Open Future Scheduled Tests Laboratory* CA 19-9 07/29/23 * CBC w/ Auto Diff 07/19/23 * CA 125 07/29/23 * CEA 07/29/23 * Comprehensive Metabolic Panel 07/19/23 Radiology* CT Biopsy, Lung/Mediastinum 05/05/23 * Echo Transthoracic Complete 12/08/22 [facility] Future App[facility]ments Appointment Date:07/25/2023 10:00:00 AM Scheduled Provider:Lázaro Riddle MD Location:[facility] Appointment Type:FM Open Appointment Date:07/26/2023 09:00:00 AM Scheduled Provider: [facility] Type:ONC Folfirinox (FT) Appointment Date:07/28/2023 11:30:00 AM Scheduled Provider: [facility] App[facility] Type:ONC Pump Disconnect (FT) Appointment Date:07/31/2023 10:15:00 AM Scheduled Provider:Lázaro Riddle MD Location:[facility] Appointment Type: Open Diagnostic Tests Pending * CA 125 07/24/23 Future Scheduled Tests Laboratory* CA 19-9 07/21/23 * CA 19-9 08/21/23 * CBC w/ Auto Diff 07/19/23 * CA 125 08/21/23 * CEA 07/21/23 * CEA 08/21/23 * Comprehensive Metabolic Panel 07/19/23 Radiology* CT Biopsy, Lung/Mediastinum 05/05/23 * Echo Transthoracic Complete 12/08/22 [facility] Future Appointments Appointment Date:07/28/2023 11:30:00 AM Scheduled Provider: [facility] App[facility] Type:ONC Pump Disconnect (FT) Appointment Date:07/31/2023 10:15:00 AM Scheduled Provider:Lázaro Riddle MD Location:[facility] Appointment Type: Open Future Scheduled Tests Laboratory* CA 19-9 07/21/23 * CA 19-9 08/21/23 * CBC w/ Auto Diff 07/19/23 * CA 125 08/21/23 * CEA 07/21/23 * CEA 08/21/23 * Comprehensive Metabolic Panel 07/19/23 Radiology* CT Biopsy, Lung/Mediastinum 05/05/23 * Echo Transthoracic Complete 12/08/22 [facility] Future Appointments Appointment Date:07/31/2023 10:15:00 AM Scheduled Provider:Lázaro Riddle MD Location:[facility] Appointment Type: Open Future Scheduled Tests Laboratory* CA 19-9 07/21/23 * CA 19-9 08/21/23 * CBC w/ Auto Diff 07/19/23 * CA 125 08/21/23 * CEA 07/21/23 * CEA 08/21/23 * Comprehensive Metabolic Panel 07/19/23 Radiology* CT Biopsy, Lung/Mediastinum 05/05/23 * Echo Transthoracic Complete 12/08/22 [facility] Future Appointments Appointment Date:08/09/2023 09:00:00 AM Scheduled Provider: [facility] Type:ONC Folfirinox (FT) Appointment Date:08/11/2023 01:15:00 PM Scheduled Provider: [facility] App[facility] Type:ONC Pump Disconnect (FT) Appointment Date:08/23/2023 08:30:00 AM Scheduled Provider:Francine Sarabia DO [facility] Type:ONC Office Visit 30 (FT) Appointment Date:10/30/2023 08:30:00 AM Scheduled Provider:Lázaro Riddle MD Location:[facility] Appointment Type: Open Future Scheduled Tests Laboratory* CA 19-9 07/21/23 * CA 19-9 08/21/23 * CBC w/ Auto Diff 07/19/23 * CA 125 08/21/23 * CEA 07/21/23 * CEA 08/21/23 * Comprehensive Metabolic Panel 07/19/23 Radiology* CT Biopsy, Lung/Mediastinum 05/05/23 * Echo Transthoracic Complete 12/08/22 [facility] Future Appointments Appointment Date:08/11/2023 11:55:00 AM Scheduled Provider: [facility] App[facility] Type:ONC Pump Disconnect (FT) Appointment Date:08/23/2023 08:30:00 AM Scheduled Provider:Francine Sarabia DO [facility] App[facility] Type:ONC Office Visit 30 (FT) Appointment Date:10/30/2023 08:30:00 AM Scheduled Provider:Lázaro Riddle MD Location:[facility] Appointment Type: Open Future Scheduled Tests Laboratory* CA 19-9 07/21/23 * CA 19-9 08/21/23 * CBC w/ Auto Diff 07/19/23 * CBC w/ Auto Diff 08/23/23 * CA 125 08/21/23 * CEA 07/21/23 * CEA 08/21/23 * Comprehensive Metabolic Panel 07/19/23 * Comprehensive Metabolic Panel 08/23/23 Radiology* CT Biopsy, Lung/Mediastinum 05/05/23 * Echo Transthoracic Complete 12/08/22 [facility] Future App[facility]ments Appointment Date:08/23/2023 08:30:00 AM Scheduled Provider:Francine Sarabia DO [facility] Type:ONC Office Visit 30 (FT) Appointment Date:08/23/2023 09:00:00 AM Scheduled Provider: [facility] App[facility] Type:ONC Folfirinox (FT) Appointment Date:08/25/2023 09:00:00 AM Scheduled Provider: [facility] Appoint[facility] Type:ONC Pump Disconnect (FT) Appointment Date:10/30/2023 08:30:00 AM Scheduled Provider:Lázaro Riddle MD Location:[facility] Appointment Type: Open Future Scheduled Tests Laboratory* CA 19-9 07/21/23 * CA 19-9 08/21/23 * CBC w/ Auto Diff 08/23/23 * CA 125 08/21/23 * CEA 07/21/23 * CEA 08/21/23 * Comprehensive Metabolic Panel 08/23/23 Radiology* CT Biopsy, Lung/Mediastinum 05/05/23 * Echo Transthoracic Complete 12/08/22 [facility] Future Appointments Appointment Date:08/23/2023 08:30:00 AM Scheduled Provider:Francine Sarabia DO Location:.ONCOLOGY Appointment Type:ONC Office Visit 30 (FT) Appointment Date:08/23/2023 09:00:00 AM Scheduled Provider: Location:.ONCOLOGY Appointment Type:ONC Folfirinox (FT) Appointment Date:08/25/2023 09:00:00 AM Scheduled Provider: Location:.ONCOLOGY Appointment Type:ONC Pump Disconnect (FT) Appointment Date:10/30/2023 08:30:00 AM Scheduled Provider:Lázaro Riddle MD Location:[facility] Appointment Type:[facility] Scheduled Tests Laboratory* CA 19-9 07/21/23 * CA 19-9 08/21/23 * CA 125 08/21/23 * CEA 07/21/23 * CEA 08/21/23 Radiology* CT Biopsy, Lung/Mediastinum 05/05/23 * Echo Transthoracic Complete 12/08/22 [facility] Future Appointments Appointment Date:08/25/2023 09:00:00 AM Scheduled Provider: Location:.ONCOLOGY Appointment Type:ONC Blood Transfusion (FT) Appointment Date:08/25/2023 12:00:00 PM Scheduled Provider: Location:.ONCOLOGY Appointment Type:ONC Pump Disconnect (FT) Appointment Date:08/25/2023 01:00:00 PM Scheduled Provider: Location:.ONCOLOGY Appointment Type:ONC Injection (FT) Appointment Date:09/05/2023 02:00:00 PM Scheduled Provider: Location:.ONCOLOGY Appointment Type:ONC Lab Port (FT) Appointment Date:09/06/2023 09:45:00 AM Scheduled Provider:Francine Sarabia DO [facility] Type:ONC Office Visit 30 (FT) Appointment Date:09/06/2023 10:30:00 AM Scheduled Provider: Location:.ONCOLOGY Appointment Type:ONC Folfirinox (FT) Appointment Date:09/08/2023 10:30:00 AM Scheduled Provider: [facility] App[facility] Type:ONC D/C Pump (FT) Appointment Date:10/30/2023 08:30:00 AM Scheduled Provider:Lázaro Riddle MD Location:[facility] Appointment Type: Open Diagnostic Tests Pending * CA 19-9 08/23/23 * CA 125 08/23/23 Future Scheduled Tests Laboratory* CA 19-9 09/06/23 * CA 19-9 07/21/23 * Erythropoietin Level 09/06/23 * CBC w/ Auto Diff 09/06/23 * CEA 09/06/23 * CEA 07/21/23 * Comprehensive Metabolic Panel 09/06/23 * Ferritin 09/06/23 * Folate Level 09/06/23 * Iron Level 09/06/23 * Iron Percent Saturation 09/06/23 * Transferrin 09/06/23 * Vitamin B12 Level 09/06/23 Radiology* CT Abdomen/Pelvis w/ Contrast 08/24/23 * CT Chest w/ Contrast 08/24/23 * CT Biopsy, Lung/Mediastinum 05/05/23 * Echo Transthoracic Complete 12/08/22 [facility] Future Appointments Appointment Date:08/29/2023 02:00:00 PM Scheduled Provider: Location:.ONCOLOGY Appointment Type:ONC Lab Port (FT) Appointment Date:09/05/2023 02:00:00 PM Scheduled Provider: Location:.ONCOLOGY Appointment Type:ONC Lab Port (FT) Appointment Date:09/06/2023 09:45:00 AM Scheduled Provider:Francine Sarabia DO [facility] Type:ONC Office Visit 30 (FT) Appointment Date:09/06/2023 10:30:00 AM Scheduled Provider: Location:.ONCOLOGY Appointment Type:ONC Folfirinox (FT) Appointment Date:09/08/2023 10:30:00 AM Scheduled Provider: Location:.ONCOLOGY Appointment Type:ONC D/C Pump (FT) Appointment Date:09/12/2023 11:45:00 AM Scheduled Provider: Location:.ONCOLOGY Appointment Type:ONC Rad Access (FT) Appointment Date:09/12/2023 12:00:00 PM Scheduled Provider: [facility] Appointment Type:CT Chest/Abd/Pelvis Combo (FT) Appointment Date:10/30/2023 08:30:00 AM Scheduled Provider:Lázaro Riddle MD Location:[facility] Appointment Type: Open [facility] Scheduled Tests Laboratory* CA 19-9 09/06/23 * CA 19-9 07/21/23 * Erythropoietin Level 09/06/23 * CBC w/ Auto Diff 09/06/23 * CBC w/ Auto Diff 09/20/23 * CBC w/ Auto Diff 10/04/23 * CBC w/ Auto Diff 10/18/23 * CBC w/ Auto Diff 08/29/23 * CEA 09/06/23 * CEA 07/21/23 * Comprehensive Metabolic Panel 09/06/23 * Comprehensive Metabolic Panel 09/20/23 * Comprehensive Metabolic Panel 10/04/23 * Comprehensive Metabolic Panel 10/18/23 * Comprehensive Metabolic Panel 08/29/23 * Ferritin 09/06/23 * Folate Level 09/06/23 * Iron Level 09/06/23 * Iron Percent Saturation 09/06/23 * Lipase Level 08/29/23 * Transferrin 09/06/23 * Vitamin B12 Level 09/06/23 Radiology* CT Abdomen/Pelvis w/ Contrast 09/12/23 * CT Chest w/ Contrast 09/12/23 * CT Biopsy, Lung/Mediastinum 05/05/23 * Echo Transthoracic Complete 12/08/22 [facility] assessment information available [facility] Work Phone: Evaluation note* Diagnosis Onset Date Resolution Status Peripheral vascular occlusive disease acute Type 2 diabetes mellitus acu te [facility] Work Phone: Evaluation note* Diagnosis Obstructive jaundice- Primary Other specified [...] Coronary atherosclerosis of unspecified type of vessel, [place] or graft Chronic obstructive pulmonary disease (HCC) Chronic airway obstruction, not elsewhere classified Chronic diastolic heart failure (HCC) Chronic diastolic heart failure Duodenal ulcer Duodenal ulcer, unspecified as acute or chronic, without hemorrhage, perforation, or obstruction [facility] Diagnosis Neoplasm of uncertain behavior of pancreas- Primary Malignant neoplasm of head of pancreas (CMS/HCC) Malignant neoplasm of head of pancreas documented in this encounter [facility] Work Phone: Evaluation note* Diagnosis Lung nodule- Primary Other diseases of lung, not elsewhere classified documented in this encounter [facility] Work Phone: Evaluation note* Diagnosis Lymphadenopathy- Primary Enlargement of lymph nodes Lung nodule Other diseases of lung, not elsewhere classified documented in this encounter [facility] Work Phone: Evaluation note* Diagnosis Lymphadenopathy- Primary Enlargement of lymph nodes Lung nodule Other diseases of lung, not elsewhere classified documented in this encounter [facility] Work Phone: Evaluation note* Diagnosis Lung nodule Other diseases of lung, not elsewhere classified documented in this encounter [facility] Work Phone: Evaluation note* Diagnosis Onset Date Resolution Status Peripheral vascular occlusive disease [facility] Work Phone: Evaluation note* Diagnosis Onset Date Resolution Status Current every day smoker acu te Peripheral vascular occlusive disease [facility] Work Phone: Hisqvjl general Narrative - Reported* Type Description Date Medical History hypertension Medical History diabetes mallitus Medical History hypercholesterolemia Surgical History heart catheterization x2 [employer] Other Hisvzni general Narrative - Reported* Type Description Date Medical History hypertension Medical History diabetes mallitus Medical History hypercholesterolemia Medical History Carotid stenosis Medical History [ ] Surgical History heart catheterization x2 [employer] Other Hisnxzh general Narrative - Reported* Type Description Date Medical History hypertension Medical History diabetes mallitus Medical History hypercholesterolemia Medical History Carotid stenosis Medical History [ ] Surgical History heart catheterization x2 Surgical History [ ] [employer] Other Hissojn general Narrative - Reported* Type Description Date Medical History hypertension Medical History diabetes mallitus Medical History hypercholesterolemia Medical History Carotid stenosis Medical History [ ] Surgical History heart catheterization x2 Surgical History LT LEG FEM ENDART [employer] Other History of Present illness Narrative* Donnie Suarez APRN-SENIOR ANALYTIC CONSULTANT - 05/19/2023 4:00 PM EST Images from the original note were not included. Patient: Venancio Nelson [id number] : 1960 -- AGE 62 y.o. Provider: CHAD Bajwa Location [facility] Service Date: 05/19/2023 Department of Medicine Division of Pulmonary, Critical Care, and Sleep Medicine [facility] New Visit Note Virtual or Telephone Consent A telephone visit (audio only) between the patient (at the originating site) and the provider (at the distant site) was utilized to provide this telehealth service. Verbal consent was requested and obtained from Venancio Nelson on this date, 05/19/23 for a telehealth visit. HISTORY OF PRESENT ILLNESS PCP: Dr. Lázaro Riddle Medical Oncology: Dr. Danyel Aragon (Francisco Brule) Surgical Oncology: Dr. Edison Chaves Cardiology: Dr. Felix Andrew (Singh Brule) HISTORY OF PRESENT ILLNESS Venancio Nelson is a 62 y.o. female who [facility] [...] left heart cath performed by her primary networking technician on 05/15/2023; findings of minimal nonobstructive CAD. On today's visit, the patient reports no SOB at rest or TAMEZ. No current or prior inhaler history. Occasional cough; intermittently productive. Light yellow in color. No hemoptysis. No recent fever, chills, night sweats. Overall, weight has been stable. Denies orthopnea. Some lower leg swelling. Denies CP, palpitations. Hx of CHF; established with networking technician. Has GERD but well controlled on [place] [...] L5 pars defects. Echocardiogram & Cardiac Studies [facility] (05/15/23) Labwork & Pathology Complete [...] 62 y.o. female; was referred to the [facility] for evaluation of [...] mentions need for cardiac clearance. Sees a networking technician at [facility]. Just underwent LHC on 05/15/23 [...] minutes Total: 22 minutes [facility] Work [facility] Hospital course Narrative No data available for this section [facility] No data available for this section [facility] Additional Instructions hold Metformin x 48 hours ,office will call with pre operative instructions [facility] Work Phone: Hospital Discharge instructionsAmbulatory Orders* DME Home Medical Equipment Time Frame: 1 Day, Location: Determined By Patient Additional Instructions -Maintain prevena dressing for 7 days. Then remove and discard. -Daily wound care left first toe:wash with vasche,dress with silvasorb gel, [facility]: Hospital Discharge instructions* Attachments The following attachments cannot be sent through Care Everywhere. * Peptic Ulcer Disease (Turkish) * Biliary Stent Placement: Post-op (Turkish) [facility] note No data available for this section [facility] for referral (narrative) , Pancreatic adenocarcinoma. We will have to determine resectability.refer to Dr. Yohannes Blackmon or Dr. Tyrone Rdz or Dr. Yohannes Chaves/ west side location only Referred by: Francine Sarabia DO [facility] (narrative) , make f/u with dr. Edison Chaves/ surgical oncology after her repeat imaging (which should be done with in 2 weeks) Referred by: Cornell TRAORE Francine [facility] Summary Purpose Family History No Family History Records Found Relationship Condition Age at Onset Recorded Date/T david sister Malignant neoplasm of lung Unknown sister Malignant neoplasm of kidney Unknown brother Type 2 diabetes mellitus Unknown father Myocardial infarction Unknown Not Specified Pulmonary emphysema Unknown Relationship Condition Age at Onset Recorded Date/T david sister Malignant neoplasm of lung Unknown sister Malignant neoplasm of kidney Unknown brother Type 2 diabetes mellitus Unknown father Myocardial infarction Unknown Not Specified Pulmonary emphysema Unknown father Heart disease Unknown Unknown Not Specified Unknown Advance Directives No Advanced Directives Records Found Advance Directive Response Recorded Date/ Time Advance Directives No September 28 12:44pm Advance Directive Response Recorded Date/ Time Advance Directives No February 12:05pm Latest Code Status on File Code Status Date Activated Date Inactivated Comments Full Code 04/23/2023 1:25 PM Advance Directive Response Recorded Date/ Time Advance Directives No February 1:05pm Chief Complaint and Reason for Visit Chief Complaint i65.22 Chief Complaint I65.23 Chief Complaint PVD w/Gangrene Chief Complaint PVD w/Gangrene PVD w/ Gangrene Reason for Visit Peripheral vascular occlusive disease Type 2 diabetes mellitus Chief Complaint 3 MONTH F/U PAD; ALEX 'S BOTH LEGS I70.213 Reason for Visit Peripheral vascular occlusive disease Chief Complaint 3 MONTH F/U PAD; ALEX 'S BOTH LEGS I70.213 Reason for Visit Current every day sm oker Peripheral vascular occlusive disease Reason for Referral Specialty Diagnoses / Procedures Referred By Contac t Referred To Contact Radiology Diagnoses Lung nodule Procedures CT chest wo IV contrast for [facility] [place] [address] [place] [address] Referral ID Status Reason Start Date Expiration Date Visits Requested Visits Authorized [id number] Authorized Perform Procedure 05/08/2023 05/07/2024 1 1 Specialty Diagnoses / Procedures Referred By Contac [place] [address] [place] [address] Referral ID Status Reason Start Date Expiration Date V isits Requested Visits Authorized [id number] Pending Review 05/26/2023 05/25/2024 1 1 Referral ID Status Reason Start Date Expiration Date V isits Requested Visits Authorized [id number] Pending Review 05/26/2023 05/25/2024 1 1 Specialty Diagnoses / Procedures Referred By Contac t Referred To Contact Gastroenterology Diagnoses Lung nodule Procedures Bronchoscopy Tier 3; Navigational, [place] [address] [place] [address] Referral ID Status Reason Start Date Expiration Date V isits Requested Visits Authorized [id number] Authorized 05/08/2023 05/07/2024 1 1 Specialty Diagnoses / Procedures Referred By Contac t Referred To Contact Diagnoses Neoplasm of uncertain behavior of pancreas Procedures E[place] 12 [place] [address] [place] [address] Department of [place] [address] Referral ID Status Reason Start Date Expiration Date V isits Requested Visits Authorized [id number] Authorized 05/08/2023 05/07/2024 1 1 Additional Source Comments INFORMATION SOURCE (unrecogn ized section and content) DATE CREATED AUTHOR 08/29/2020 [facility] DATE CREATED AUTHOR AUTHOR'S ORGANIZ ATION 07/01/2022 [facility] pital DATE CREATED AUTHOR AUTHOR'S ORGANIZ ATION 04/19/2023 [facility] dical [facility] EPIC DATE CREATED AUTHOR AUTHOR'S ORGANIZ ATION 05/23/2023 [facility]spital DATE CREATED AUTHOR AUTHOR'S ORGANIZ ATION 05/24/2023 [facility] DATE CREATED AUTHOR AUTHOR'S ORGANIZ ATION 06/02/2023 [facility] DATE CREATED AUTHOR AUTHOR'S ORGANIZ ATION 08/01/2023 [facility] DATE CREATED AUTHOR AUTHOR'S ORGANIZ ATION 08/24/2023 [facility] DATE CREATED AUTHOR AUTHOR'S ORGANIZ ATION 08/25/2023 Singh Brule [facility] DATE CREATED AUTHOR AUTHOR'S ORGANIZ ATION 08/26/2023 [facility] REASON FOR VISIT (unrecogniz ed section and content) Specialty Diagnoses / Procedures Referred By Contac t Referred To Contact Diagnoses Obstructive jaundice obstuctive jaundice Shailesh Miranda MD [address] [address] [facility] [address] [place] [address] Referral ID Status Reason Start Date Expiration Date Visits Re quested Visits Authorized [id number] 1 1 Reason Comments Follow-up Reason Comments Patient evaluation Specialty Diagnoses / Procedures Referred By Contac t Referred To Contact Gastroenterology Diagnoses Lung nodule Procedures Bronchoscopy Tier 3; [place] [address] [place] [address] [place] [id number] Referral ID Status Reason Start Date Expiration Date V isits Requested Visits Authorized [id number] Authorized 05/08/2023 05/07/2024 1 1 Specialty Diagnoses / Procedures Referred By Agatha t Referred To Contact Radiology Diagnoses Lung nodule Procedures CT chest wo IV contrast for [facility] [place] [address] [place] [address] Referral ID Status Reason Start Date Expiration Date Visits Requested Visits Authorized [id number] Authorized Perform Procedure 05/08/2023 05/07/2024 1 1 Care Teams (unrecognized sec tion and content) Team Status: Active Member Role Status Dates Yuni Mast MD Primary Care Provider Active Team Status: Inactive Member Role Status Dates Yuni Mast MD Primary Care Provider Active Luc Vargas MD Attending Provider Active Team Status: Active Member Role Status Dates Lázaro Riddle MD Primary Care Provider Active Team Status: Inactive Member Role Status Dates Luc Vargas MD Attending Provider Active Lázaro Riddle MD Primary Care Provider Active Team Status: Inactive Member Role Status Dates Lázaro Riddle MD Primary Care Provider Active Luc Vargas MD Admit Provider, Attending Provide r Active Reyes Hamilton MD Other Provider Active Ergonomics Engineer Relationship Specialty Start Date End Date Lázaro Riddle MD [address] [place] [id number] PCP - General 04/23/23 Ergonomics Engineer Relationship Specialty Start Date End Date Lázaro Riddle MD [address] [facility] [place] [address] PCP - General Family Medicine 05/05/23 Ergonomics Engineer Relationship Specialty Start Date End Date Lázaro Riddle MD [address] [facility] [place] [address] PCP - General Family Medicine 05/05/23 Ergonomics Engineer Relationship Specialty Start Date End Date Lázaro Riddle MD [address] [facility] [place] [address] PCP - General Family Medicine 05/05/23 Ergonomics Engineer Relationship Specialty Start Date End Date Lázaro Riddle MD [address] [facility] [place] [address] PCP - General Family Medicine 05/05/23 Ergonomics Engineer Relationship Specialty Start Date End Date Lázaro Riddle MD [address] [facility] [place] [address] PCP - General Family Medicine 05/05/23 Ergonomics Engineer Relationship Specialty Start Date End Date Lázaro Riddle MD [address] [facility] [place] [address] PCP - General Family Medicine 05/05/23 Team Status: Inactive Member Role Status Dates Lázaro Riddle MD Primary Care Provider Active Start: July 25, 2023 End: July 25, 2023 Luc Vargas MD Attending Provider Active S tart: July 25, 2023 End: July 25, 2023 Team Status: Active Member Role Status Dates Lázaro Riddle MD Primary Care Provider Active Start: July 25, 2023 Luc Vargas MD Attending Provider Active S tart: July 25, 2023 Goals (unrecognized section and content) Goals may [...] 2100, Until Discontinued 2127 (Given - Provider: Venancio Servin, AVRIL) 2048 (Given - Provider: Nikolas Baumann RN) 2100 (Due) dextrose bolus 10% 250 mL (COMPLETED)(Linked Group 1) 250 mL, IntraVENous, at 937.5 mL/hr, Administer over 16 Minutes, ONCE, On Mon04/26/23 at 1000, For 1 dose, 250 mL of dextrose 10 % = 25 g of dextrose 1051 (New Bag - Provider: Alysia Ponce, AVRIL)1112 (Stopped - Provider: Alysia Ponce RN) enoxaparin [...] dose on Mon04/26/23 at 1730, Until Discontinued 1735 (Given - Provider: Alysia Ponce RN) 1015 (Given - Provider: Valerie Retana, AVRIL) 0839 (Given - Provider: Valerie eRtana RN) glipiZIDE (GLUCOTROL) tablet 10 mg 10 mg, Oral, 2 TIMES DAILY BEFORE MEALS, First dose on Mon04/26/23 at 1730, Until Discontinued 173 (Given - Provider: Alysia Ponce, AVRIL) 0504 (Given - Provider: Venancio Servin RN)0935 (Held by provider - Provider: CHACHO Camacho NP - Reason: Other)1600 (Automatically Held - Provider: CHACHO Camacho NP) 0700 (Automatically Held - Provider: Isra Farley APRN - RU)0716 (Unheld by provider - Provider: Luc Tony DO)0836 (Given - Provider: Valerie Retana RN - Comment: order unheld)1600 (Due) insulin glargine (LANTUS) injection vial 20 Units 20 Units, SubCUTAneous, 2 TIMES DAILY, First dose on Mon04/26/23 at 2100, Until Discontinued 2127 (Given - Provider: Venancio Servin RN) 0935 (Held by provider - Provider: Isra Farley APRN - RU - Reason: Other)1129 [...] notify physician 1737 (Given - Provider: Alysia Ponce, AVRIL - Comment: bs 395) 1015 (Given - [...] notify physician 0124 (Not Given - Provider: Venancio Servin RN - Reason: Order parameters not met)2048 (Given - Provider: Nikolas Baumann RN - Comment: 421 BG, BLOW OFF WORKER notified) 2099 (Due) insulin lispro (HUMALOG) injection [...] dose on Mon04/26/23 at 1730, Until Discontinued 1735 (Given - Provider: Alysia Ponce RN) 1015 (Given - Provider: Valerie Retana RN) 0837 (Given - Provider: Valerie Retana, AVRIL) metoprolol (LOPRESSOR) tablet 100 mg 100 mg, Oral, 2 TIMES DAILY, First dose on Mon04/26/23 at 2100, Until Discontinued 2127 (Given - Provider: Venancio Servin RN) 101 (Given - Provider: Valerie Retana RN)2048 (Given - Provider: Nikolas Baumann RN) 0836 (Given - Provider: Valerie Retana, AVRIL)2100 (Due) pantoprazole (PROTONIX) tablet 40 mg 40 mg, Oral, 2 TIMES DAILY BEFORE MEALS, First dose on Mon04/25/23 at 1815, Until Discontinued, Substituted for Esomeprazole (NEXIUM). 0901 (Given - Provider: Alysia Ponce RN)1737 (Given - Provider: Alysia Ponce RN) 0504 (Given - Provider: Venancio Servin RN)1806 (Given - Provider: Valerie Retana, AVRIL) 0526 (Given - Provider: Nikolas Baumann RN)1600 (Due) piperacillin-tazobactam (ZOSYN) 3,375 mg in sodium chloride 0.9 % 50 mL IVPB (mini-bag) (CANCELED)(Linked Group 2) 3,375 mg, IntraVENous, EVERY 8 HOURS, First dose on Mon04/23/23 at 2000, Until Discontinued, Antimicrobial Indications: Intra-Abdominal Infection 0201 (Stopped - Provider: Venancio Servin RN)0449 (New Bag - Provider: Venancio Servin RN)0849 (Stopped - Provider: Alysia Ponce, [...] Fluid Infusing) 0124 (Not Given - Provider: Venancio Servin RN - Reason: IV Fluid Infusing)1016 [...] Mon04/23/23 at 1325, Until Discontinued, Nausea, Vomiting Or [...] BE BASED ON THE PRIMARY CLINICAL RECORDS. [facility] provides no warranty or guarantee of the accuracy or completeness of information in this document.
--- NOTE | 2023-08-26 07:17 | ECG_ITS ---
The [facility] Test Date: 2023-08-26 Pat Name: VENANCIO BERNAL Department: Room: - Gender: Female Senior Clinical Study Manager: : 1960 Requested By: ESAU RIDDLE Order Number: [id number] Reading MD: CATIA MEREDITH Measurements Intervals Mitchell Rate: 73 P: 242 [place]: 72 QRS: 130 QRSD: 116 T: 12 QT: 426 QTc: 451 Interpretive Statements 1320 Rapid junctional rhythm 1570 with occasional ventricular premature complexes 2450 Right bundle branch block 2730 Left posterior fascicular block 7300 Indeterminate axis 9150 abnormal ECG Electronically Signed On 08-29-2023 8:43:20 EDT by CATIA MEREDITH
[2023-08-26] MEDS: HYDROMORPHONE HCL 0.5 MG/0.5 ML SYRINGE IV ×2 (07:36→10:12)
[2023-08-26] MEDS: FAMOTIDINE/PF 20 MG/2 ML VIAL IV (07:37)
[2023-08-26 07:42] LABS: Mean Corpuscular HGB Conc 30.8 g/dL (29.9-35.2); Mean Corpuscular Hemoglobin 26.1 pg (26.7-34.0); Mean Corpuscular Volume 84.7 fL (81.0-99.0); Mean Platelet Volume 10.9 fL (9.5-13.5); Platelet Count 246 10^3/uL (150-450); Red Blood Count 2.68 10^6/uL (4.20-5.40); Red Cell Distribution Width 26.3 % (11.0-15.0); White Blood Count 7.9 10^3/uL (4.0-11.0)
--- NOTE | 2023-08-26 07:49 | ED_ITS ---
HPI - Abdominal Pain General Chief Complaint: Abdominal Pain Stated Complaint: abd pain Time Seen by Provider: 08/26/23 07:16 Source: patient Mode of arrival: Wheelchair Limitations: physical limitation History of Present Illness HPI narrative: The patient have history of pancreatic cancer receiving treatment [facility] last chemotherapy session was Monday, 5 days ag is coming to the ER with epigastric pain that started this morning , pain is not radiating not associate with any nausea vomiting , the patient denies any other concern and she did not eat today , the patient also had a blood transfusion yesterday and she have a history of low platelets according to the daughter at the bedside, patient is not a good historian complaining of severe epigastric pain, as per the daughter as well the patient fell on her elbow while coming to the ER there was no head injury no loss of consciousness mostly the right elbow Related Data Home Medications ?Medication ?Instructions ?Recorded ?Confirmed atorvastatin 20 mg tablet 20 mg PO .qhs 01/02/23 05/24/23 clopidogrel 75 mg tablet 75 mg PO QDAY 01/02/23 05/24/23 dulaglutide 0.75 mg/0.5 mL 0.75 mg subcut QWEEK 01/02/23 05/24/23 subcutaneous pen injector (Trulicity) furosemide 40 mg tablet 40 mg PO Q12H 01/02/23 05/24/23 glipizide 10 mg tablet 10 mg PO BID 01/02/23 05/24/23 lisinopril 30 mg tablet 30 mg PO DAILY 01/02/23 05/24/23 metformin 500 mg tablet,extended 1,000 mg PO BID 01/02/23 05/24/23 release 24 hr metoprolol tartrate 100 mg tablet 100 mg PO Q12H 01/02/23 05/24/23 spironolactone 50 mg tablet 50 mg PO DAILY 04/22/23 05/24/23 acetaminophen 325 mg capsule 325 mg PO Q6H PRN pain 05/22/23 05/22/23 aspirin 81 mg tablet,delayed 81 mg PO DAILY 05/22/23 05/24/23 release (Adult Aspirin Regimen) insulin glargine 100 unit/mL (3 20 unit subcut BID 05/22/23 05/24/23 mL) subcutaneous pen (Lantus Solostar U-100 Insulin) insulin lispro 100 unit/mL 1 sliding scale dose subcut TID 05/22/23 05/24/23 subcutaneous pen (Humalog KwikPen (U-100) Insulin) pantoprazole 40 mg tablet,delayed 40 mg PO DAILY 05/22/23 05/24/23 release diphenoxylate-atropine 2.5 tab 08/26/23 mg-0.025 mg tablet Previous Rx's ?Medication ?Instructions ?Recorded tramadol 50 mg tablet 50 mg PO Q6H PRN Pain Scale 4-6 05/24/23 #14 tabs Allergies Allergy/AdvReac Type Severity Reaction Status Date / Time amoxicillin [From Augmentin] Allergy Intermediate Rash Verified 08/26/23 07:10 clavulanic acid Allergy Intermediate Rash Verified 08/26/23 07:10 [From Augmentin] sulfamethoxazole Allergy Intermediate Verified 08/26/23 07:10 [From Bactrim] trimethoprim [From Bactrim] Allergy Intermediate Verified 08/26/23 07:10 albuterol Allergy Anxiety Verified 08/26/23 07:10 Review of Systems ROS Status of ROS 10 or more systems reviewed and unremark able except as noted in history and below [facility] Medical History (Updated 08/26/23 @ 13:18 by Samia Shaffer MD) CVA (cerebral vascular accident) (2021) ?I63.9 - Cerebral infarction, unspecified (ICD-10) GI bleed ?K92.2 - Gastrointestinal hemorrhage, unspecified (ICD-10) Peptic ulcer ?K27.9 - Peptic ulcer, site unspecified, unspecified as acute or chronic, without hemorrhage or perforation (ICD-10) History of blood transfusion ?Z92.89 - Personal history of other medical treatment (ICD-10) Pancreatic cancer ?C25.9 - Malignant neoplasm of pancreas, unspecified (ICD-10) Hypercholesterolemia ?E78.00 - Pure hypercholesterolemia, unspecified (ICD-10) Cerebral infarction ?I63.9 - Cerebral infarction, unspecified (ICD-10) Diabetic retinopathy ?E11.319 - Type 2 diabetes mellitus with unspecified diabetic retinopathy without macular edema (ICD-10) COPD (chronic obstructive pulmonary disease) ?J44.9 - Chronic obstructive pulmonary disease, unspecified (ICD-10) Congestive heart failure ?I50.9 - Heart failure, unspecified (ICD-10) Cardiomyopathy ?I42.9 - Cardiomyopathy, unspecified (ICD-10) Anemia ?D64.9 - Anemia, unspecified (ICD-10) Allergic eczema ?L23.9 - Allergic contact dermatitis, unspecified cause (ICD-10) Lung nodule ?R91.1 - Solitary pulmonary nodule (ICD-10) Pancreatic mass ?K86.89 - Other specified diseases of pancreas (ICD-10) Episode of syncope ?R55 - Syncope and collapse (ICD-10) Amputation toe ?S98.139A - Complete traumatic amputation of one unspecified lesser toe, initial encounter (ICD-10) Peripheral arterial disease ?I73.9 - Peripheral vascular disease, unspecified (ICD-10) Diabetes ?E11.9 - Type 2 diabetes mellitus without complications (ICD-10) Hyperlipidemia ?E78.5 - Hyperlipidemia, unspecified (ICD-10) Hypertension ?I10 - Essential (primary) hypertension (ICD-10) Surgical History (Updated 05/22/23 @ 13:52 by Clau De Souza NP) H/O vascular surgery ?Z98.890 - Other specified postprocedural states (ICD-10) History of cardiac catheterization ?Z98.890 - Other specified postprocedural states (ICD-10) Family History (Updated 05/22/23 @ 13:52 by Clau De Souza NP) Other Family history of heart disease Family history of kidney cancer Family history of lung cancer Family history of myocardial infarction Social History (Updated 05/24/23 @ 08:28 by Selma Richards RN) Within the past year, how often did you have a drink containing alcohol: never Score interpretation: A score less than 3 is consistent with normal alcohol consumption. Smoking status: Current every day smoker Non-prescribed substance use: denies use Highest level of school completed/degree received: high school graduate Exam Narrative Exam Narrative: Nurses notes and vital signs reviewed and patient is not hypoxic. General: Well-appearing and in no apparent distress. Skin: Warm, dry, no pallor noted. No rash. Head: Normocephalic, atraumatic. Neck: Supple, non-tender. Eye: Pupils are equal, round and EOMI. No scleral icterus. Ears, Nose, Mouth, and Throat: TM are clear, no nasal mucosal hypertrophy. Oral mucosa is moist, no posterior oropharynx erythema, uvula is mid-line Cardiovascular: Regular Rate and Rhythm without murmur, gallop or rub. Respiratory: No accessory muscle use or respiratory distress. Lungs are clear to auscultation, no wheezing, rales or rhonchi Chest Wall: no tenderness Back: No midline thoracic or lumbar vertebral tenderness. No CVA tenderness Musculoskeletal: normal ROM, no calf or popliteal tenderness, no lower extremity edema/swelling the patient have multiple upper extremity bruises and abrasion in the posterior aspect of the right elbow GI: Abdomen is soft, severe epigastric pain Neurological: A&O x4. No cranial nerve dysfunction observed. No truncal ataxia. Moves all extremities. Sensation intact. Psychiatric: Cooperative and interactive. Normal mood and affect. Constitutional Vital Signs, click to edit/add: Last Vital Signs Temp 98.9 F 08/26/23 11:52 Pulse 112 H 08/26/23 12:55 Resp 34 H 08/26/23 12:55 BP 144/67 H 08/26/23 12:55 Pulse Ox 100 08/26/23 12:55 O2 Del Method Room Air 08/26/23 12:55 O2 Flow Rate 2 08/26/23 12:05 Course Vital Signs Vital signs: Vital Signs Temperature 97.7 F 08/26/23 07:05 Pulse Rate 103 H 08/26/23 07:05 Respiratory Rate 24 H 08/26/23 07:05 Blood Pressure 159/83 H 08/26/23 07:05 Pulse Oximetry 100 08/26/23 07:05 Oxygen Delivery Method Room Air 08/26/23 07:05 Temperature 98.9 F 08/26/23 11:52 Pulse Rate 112 H 08/26/23 12:55 Respiratory Rate 34 H 08/26/23 12:55 Blood Pressure 144/67 H 08/26/23 12:55 Pulse Oximetry 100 08/26/23 12:55 Oxygen Delivery Method Room Air 08/26/23 12:55 Oxygen Delivery Flow Rate 2 08/26/23 12:05 MDM - Abdominal Pain MDM Narrative Medical decision making narrative: Upon presentation the patient EKG was showing sinus rhythm with a heart rate of [address] elevation or depression and there is right bundle darinel block CBC showed a hemoglobin of 7 chemistry showing no acute significant pathology The patient was started right away on IV fluids as well as Dilaudid for pain control, the patient will also get a CAT scan without contrast that showed no acute significant pathology except for possible cholecystitis on the CAT scan that required further evaluation by ultrasound ultrasound of the right upper quadrant to rule out acute cholecystitis The patient almost few hours into being through the ER the patient started complaining of dizziness and she looked pale heart rate went up to 140 at that time EKG was showing sinus tachycardia heart rate was [address] elevation or depression First troponin was negative and the patient had lactic acid of 2.2 The patient then had a 2 melena stool [id number]. Blood pressure was maintained Patient received O- blood awaiting typed blood The patient case was discussed with the [facility] GI after making sure that [facility] does not have any ICU beds The patient was accepted by [facility] . Patient will be transferred to [facility] Right now the patient received Protonix 80 mg IV as well as octreotide bolus as well as drip and she is right now stable with a heart rate of 109 blood pressure 127/55 and pulse ox of 100% The patient will be transferred to [facility] Lab Data Labs: Lab Results 08/26/23 08/26/23 08/26/23 Range/Units 07:28 11:31 11:35 WBC 7.9 (4.0-11.0) 10^3/uL RBC 2.68 L (4.20-5.40) 10^6/uL Hgb 7.0 L (12.0-16.0) g/dL Hct 22.7 L* (36.0-48.0) % MCV 84.7 (81.0-99.0) fL MCH 26.1 L (26.7-34.0) pg MCHC 30.8 (29.9-35.2) g/dL RDW 26.3 H (11.0-15.0) % Plt Count 246 (150-450) 10^3/uL MPV 10.9 (9.5-13.5) fL Seg Neuts % (Manual) 85.0 Lymphocytes % (Manual) 13.0 L (20.5-60.0) % Monocytes % (Manual) 1.0 L (1.7-12.0) % Eosinophils % (Manual) 1.0 (0.9-7.0) % Basophils % (Manual) 0.0 L (0.2-2.0) % Neutrophils # (Manual) 6.71 H (1.4-6.5) 10^3/uL Lymphocytes # (Manual) 1.02 L (1.20-3.80) 10^3/uL Monocytes # (Manual) 0.07 L (0.30-0.80) 10^3/uL Eosinophils # (Manual) 0.07 (0.00-0.70) 10^3/uL Basophils # (Manual) 0.00 (0.00-0.10) 10^3/uL Sodium 141 (136-145) mmol/L Potassium 3.4 L (3.5-5.1) mmol/L Chloride 103 (98-107) mmol/L Carbon Dioxide 24.0 (21.0-32.0) mmol/L Anion Gap 17.4 BUN 22.0 H (7.0-18.0) mg/dL Creatinine 0.76 (0.55-1.02) mg/dL Est GFR ( Amer) >60 (>=60) Est GFR (Non-Af Amer) >60 (>=60) BUN/Creatinine Ratio 28.9 Glucose 209 H (74-106) mg/dL Lactate 2.2 H* (0.4-2.0) mmol/L Calcium 7.8 L (8.5-10.1) mg/dL Total Bilirubin 3.2 H (0.2-1.0) mg/dL AST 347 H (15-37) U/L ALT 155 H (14-59) U/L Alkaline Phosphatase 485 H (46-116) U/L Troponin I High Sens 36.7 48.3 (4.0-51.3) pg/mL Total Protein 6.1 L (6.4-8.2) g/dL Albumin 2.2 L (3.4-5.0) g/dL Globulin 3.9 g/dL Albumin/Globulin Ratio 0.6 Lipase 126.0 H (16.0-77.0) U/L POC Glucose 324 H (74-106) mg/dL Blood Type B Positive Antibody Screen Negative Discharge Plan Discharge Chief Complaint: Abdominal Pain Clinical Impression: Acute upper gastrointestinal bleeding Patient Disposition: [facility] Time of Disposition Decision: 13:18 Discharge Location: [facility]
[2023-08-26 07:50] LABS: Hematocrit 22.7 % (36.0-48.0)
--- NOTE | 2023-08-26 08:06 | CT_ITS ---
[address] [address] Patient Name: VENANCIO BERNAL MRN: [id number] date: 1960 Sex: F Assigned Patient Location: ER Current Patient Location: Accession/Order Number: [id number] Exam Date: 08/26/2023 08:25 Report Date: 08/26/2023 09:15 At the request of: JOSE VEGA Procedure: CT abdomen pelvis wo con EXAMINATION: CT abdomen pelvis wo con HISTORY: epigastric pain , hx of pancreatic cancer on chemo COMPARISON: CT abdomen pelvis 04/22/2023 TECHNIQUE: Axial, Coronal, and Sagittal images were obtained without and/or with IV contrast as indicated by examination type. Dose reduction techniques were achieved by using automated exposure control and/or adjustment of mA and/or kV according to patient size and/or use of iterative reconstruction technique. FINDINGS: LUNG BASES: Mild opacities and stranding within lung bases. Bilateral pleural effusions, 1.4 cm in thickness on right, 1.9 cm on left. LIVER: No enlargement, atrophy, suspicious density, or significant focal lesion. BILIARY: Well-distended gallbladder with suspected wall thickening. Small amount focus of air within nondependent aspect of the gallbladder. Trace amount of air scattered within the intrahepatic bile ducts secondary to common bile duct stent and incompetent sphincter of Olvin. PANCREAS: Heterogeneous, slightly prominent head of pancreas consistent with known neoplasm. No abnormal duct dilation. SPLEEN: No enlargement or focal lesion. ADRENALS: No mass or enlargement. KIDNEYS: Stable small right renal hypodensities suspected represent cysts. No mass, obstruction, or calcification. BOWEL/MESENTERY: No visible mass, obstruction, or bowel wall thickening. Normal appendix. AORTA/VASCULAR: Marked atherosclerotic disease of aorta and branches. No aortic aneurysm. RETROPERITONEUM: No mass or adenopathy. LYMPH NODES: No adenopathy. URINARY BLADDER: No visible focal wall thickening, lesion, or calculus. PELVIC ORGANS: No visible mass. Pelvic organs appropriate for patient age. ABDOMINAL WALL: No mass or hernia. BONES: No bony lesion or fracture. OTHER: Small amount of free fluid within the dependent pelvis. CT/CT abdomen pelvis wo con IMPRESSION: 1. Distended gallbladder with suspected mild wall thickening. Ultrasound evaluation is recommended. 2. Heterogeneous head of pancreas with common bile duct stent consistent with patient history. 3. Small amount of free fluid within the pelvis of uncertain etiology. This may be secondary to acute cholecystitis, secondary to known pancreatic cancer, or drainage of fluid from the bilateral pleural effusions. 4. Bilateral [id number] pleural effusions and mild bibasilar infiltrates versus atelectasis. Electronically authenticated by: LYRIC PADRON Date: 08/26/2023 09:15
[2023-08-26 08:09] LABS: Alanine Aminotransferase 155 U/L (14-59); Albumin Globulin Ratio 0.6; Albumin Level 2.2 g/dL (3.4-5.0); Alkaline Phosphatase 485 U/L (46-116); Anion Gap 17.4; Aspartate Amino Transferase 347 U/L (15-37); BUN Creatinine Ratio 28.9; Bilirubin Total 3.2 mg/dL (0.2-1.0); Calcium 7.8 mg/dL (8.5-10.1); Chloride 103 mmol/L (98-107); Estimated GFR (African America >60 (>=60); Estimated GFR (Non-African Ame >60 (>=60); Globulin 3.9 g/dL; Glucose 209 mg/dL (74-106); Potassium 3.4 mmol/L (3.5-5.1); Sodium 141 mmol/L (136-145); Total Protein 6.1 g/dL (6.4-8.2); Troponin I High Sensitivity 36.7 pg/mL (4.0-51.3)
[2023-08-26 09:06] LABS: Eosinophils Absolute Manual 0.07 10^3/uL (0.00-0.70); Lymphocytes Absolute Manual 1.02 10^3/uL (1.20-3.80); Monocytes Absolute Manual 0.07 10^3/uL (0.30-0.80); Segmented Neut Absolute Manual 6.71 10^3/uL (1.4-6.5)
--- NOTE | 2023-08-26 09:46 | US_ITS ---
The [address] [address] Patient Name: VENANCIO BERNAL MRN: [id number] date: 1960 Sex: F Assigned Patient Location: ER Current Patient Location: ER Accession/Order Number: [id number] Exam Date: 08/26/2023 11:00 Report Date: 08/26/2023 12:16 At the request of: JOSE VEGA Procedure: US right upper quadrant EXAM: US right upper quadrant HISTORY: Right upper quadrant pain; assess for acute cholecystitis; technologist notes also state back pain; history of pancreatic carcinoma on chemotherapy. COMPARISON: CT abdomen/pelvis dated 08/26/2023. TECHNIQUE: Routine ultrasound right upper quadrant abdomen. FINDINGS: Pancreas: The pancreatic neck is unremarkable. The pancreatic head, body and tail are secured. The patient's known pancreatic head mass is not visualized on the ultrasound examination. The pancreatic duct is not dilated within the region of the pancreatic neck. Liver: The liver measures 17.8 cm in longitudinal dimension. The liver parenchymal echogenicity is diffusely low and heterogeneous with subtle nodular of the hepatic contour. There is no well-defined mass. There is mild intrahepatic biliary dilatation. The small amount of pneumobilia seen on the previous CT examination is not well visualized on the ultrasound examination. There is normal direction of flow within the main portal vein however the velocity is elevated measuring 57 cm/s. There is normal direction of flow within the right, middle and left hepatic veins. Gallbladder: The gallbladder is mildly dilated. There is sludge within the gallbladder. There are no shadowing gallstones. The gallbladder wall thickness is normal measuring 1.8 mm. There is no pericholecystic fluid. The staff technologist has indicated that there is a positive sonographic Ortiz's sign. Common duct: The common duct is mildly dilated measuring 0.9 cm in transverse dimension. The known biliary stent is not demonstrated on the sonographic images. Right kidney: The right kidney is lower limits normal size measuring 9.9 x 6.1 x 6.0 cm. There is a 1.2 x 1.1 x 1.1 cm Bosniak 1 right renal cyst. Ascites: None. US/US right upper quadrant IMPRESSION: The pancreatic head, body and tail are obscured by bowel gas shadowing. The known pancreatic head mass was not visualized sonographically. The visualized portions of the pancreatic neck are unremarkable. The liver parenchymal echogenicity is diffusely low and heterogeneous with subtle nodularity of the hepatic contour. There is no well-defined mass. There is mild intrahepatic biliary dilatation. The known mild pneumobilia is not appreciated on the sonographic images. There is increased velocity within the main portal vein measuring 57 cm/s. The gallbladder is mildly dilated. There is sludge within the gallbladder. There are no shadowing gallstones. The gallbladder wall thickness is normal measuring 1.8 mm. There is no pericholecystic fluid. The staff technologist has indicated that there is a positive sonographic Ortiz's sign. The common duct is mildly dilated measuring 0.9 cm in transverse dimension. The known biliary stent is not demonstrated on the sonographic images. There is a 1.2 x 1.1 x 1.1 cm Bosniak 1 right renal cyst. Electronically authenticated by: SWETHA BLUE Date: 08/26/2023 12:16
--- NOTE | 2023-08-26 11:28 | XR_ITS ---
The [address] [address] Patient Name: VENANCIO BERNAL MRN: [id number] date: 1960 Sex: F Assigned Patient Location: ER Current Patient Location: ED.MAIN Accession/Order Number: [id number] Exam Date: 08/26/2023 11:40 Report Date: 08/26/2023 13:21 At the request of: JOSE VEGA Procedure: XR chest 1V EXAMINATION: XR chest 1V REASON FOR EXAM: SOB COMPARISON: 05/24/2023. TECHNIQUE: Single projection. FINDINGS: There is a right IJ MediPort extending upper right atrium. No edema, focal infiltrate. There is slight blunting of left costophrenic angle indeterminate for pleural scarring or minimal pleural fluid collection. XR/XR chest 1V IMPRESSION: 1. Left costophrenic angle blunting could be pleural scar or pleural effusion. 2. No pulmonary edema or other acute infiltrate. Electronically authenticated by: SWETHA LECHUGA Date: 08/26/2023 13:21
[2023-08-26 11:32] LABS: Glucometer 324 mg/dL (74-106)
--- NOTE | 2023-08-26 11:33 | ECG_ITS ---
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
[2023-08-26 12:43] LABS: Lactate/Lactic Acid 2.2 mmol/L (0.4-2.0)
[2023-08-26] MEDS: 0.9 % SODIUM CHLORIDE 1,000 ML 500 ML IV (12:45)
[2023-08-26 12:46] LABS: Troponin I High Sensitivity 48.3 pg/mL (4.0-51.3)
[2023-08-26] MEDS: OCTREOTIDE ACETATE 500 MCG in 0.9 % SODIUM CHLORIDE 250 ML 25.1000000000000014 MCG IV (12:46)
[2023-08-26] MEDS: PANTOPRAZOLE SODIUM 40 MG VIAL 80 MG IV (12:52)
[2023-08-26] MEDS: OCTREOTIDE ACETATE 100 MCG/ML VIAL 50 MCG IV (12:52)
[2023-08-26 13:43] LABS: Lactate/Lactic Acid 4.9 mmol/L (0.4-2.0)
[2023-08-26] MEDS: 0.9 % SODIUM CHLORIDE 1,000 ML 1000 ML IV (14:00)
--- NOTE | 2023-08-26 15:18 | PC.NURSE ---
1400 1 liter ns bolus started pt bp 64/P 1415 2nd unit emergency blood started 1410-norepinephrine started at 4 mcg/ min 1422-norepinephrine titrated to 10 mcg/ min 1431-norepinephrine titrated to 12 mcg/min 1416 no pulse, CPR started 1417 Epinephrine given 1418 CPR stopped, pt has palpable pulse 1426 left AC 20g successful 1432 pt hyperoxygenated per Nonrebreather mask 1442 20 mg Etomidate 1445 pt successfully intubated, instant color change, condensation in the tube, bilateral breath sounds, 23 at the lips 1450 [facility] here for transport 145 Life flight transferred to pt to their vent, care turned over to Doris Rashid RN PTN
[2023-08-26] MEDS: NOREPINEPHRINE BITARTRATE/D5W 4 MG/250 ML PREMIX 30 MG IV (16:11)
== END 2023-08-26 16:10 | disposition short-term general hospital (02) ==
PROVIDERS: Emergency Provider Emergency Medicine; PCP Family Medicine
DX: K92.2 Gastrointestinal hemorrhage, unspecified (principal); C25.9 Malignant neoplasm of pancreas, unspecified; I45.10 Unspecified right bundle-branch block
CPT/HCPCS: 31500; 36415; 71045; 74176; 76705; 80053; 83605; 83690; 84484; 85007; 85014; 85018; 85027; 86850; 86900; 86901; 92950; 93005; 96365; 96366; 96375; 96376; 99285; J1170; J2354; P9016